=== PATIENT | female | born 1950 | race Caucasian/White ===

== ENCOUNTER → 2017-09-01 10:21 | Outpatient (CLI) | payer OTHER, SELFPAY ==
[2017-09-01 11:32] LABS: Add Manual Diff / Slide Review NO; Basophils Percent Auto 0.9 % (0-2); Eosinophils Percent Auto 4.7 % (2-4); Hematocrit 38.2 % (36-46); Hemoglobin 12.7 g/dL (12.0-16.0); Lymphocytes Percent Auto 22.1 % (25-40); Mean Corpuscular HGB Conc 33.3 % (30-36); Mean Corpuscular Hemoglobin 29.5 PG (26-34); Mean Corpuscular Volume 88.8 fL (80-100); Monocytes Percent Auto 9.7 % (3-14); Neutrophils Absolute Auto 5900 /uL (3000-5900); Neutrophils Percent Auto 62.6 % (50-75); Platelet Count 338 X10^3/uL (150-400); Red Cell Distribution Width 15.6 % (11.6-14.8); White Blood Cell Count 9.4 X10^3/uL (4.5-11.0)
== END ==
PROVIDERS: PCP Internal Medicine; Visit Provider Allergy & Immunology
DX: D80.1 Nonfamilial hypogammaglobulinemia (principal)
CPT/HCPCS: 36415; 85025

== ENCOUNTER → 2017-09-05 08:42 | Outpatient (CLI) | payer OTHER, SELFPAY ==
[2017-09-05 10:29] LABS: Alanine Aminotransferase 29 IU/L (9-52); Albumin 3.6 g/dL (3.5-5.0); Albumin Globulin Ratio 1.3 (1.0-2.8); Alkaline Phosphatase 58 U/L (38-126); Aspartate Aminotransferase 22 IU/L (14-36); BUN Creatinine Ratio 21.3 (6-22); Bilirubin Total 0.5 mg/dL (0.2-1.3); Cholesterol 149 mg/dL (140-199); Estimated Glomerular Filt Rate > 60.0 mL/min (>60); Globulin 2.8 g/dL (1.7-4.1); Glucose 113 mg/dL (80-110); HDL Cholesterol 59 mg/dL (40-60); HEMOLYSIS < 15 (0-50); LDL Cholesterol Calculated 63 mg/dL (<100); Potassium 4.5 mmol/L (3.4-5.1); Sodium 140 mmol/L (137-145); Total Protein 6.4 g/dL (6.3-8.2); Triglycerides 134 mg/dL (35-150)
[2017-09-05 15:39] LABS: Creatinine Urine Random 24.6 mg/dL
[2017-09-05 15:40] LABS: Microalbumi Creatinin Ratio Ur 24.3 ug/mg CR (<30); Microalbumin Urine Random < 0.6 mg/dL (0-1.6)
== END ==
PROVIDERS: PCP Internal Medicine; Visit Provider Internal Medicine
DX: E11.69 Type 2 diabetes mellitus with other specified complication (principal); E78.5 Hyperlipidemia, unspecified; Z79.4 Long term (current) use of insulin
CPT/HCPCS: 36415; 80053; 80061; 82043; 82570

== ENCOUNTER → 2017-09-11 15:57 | Outpatient (CLI) | payer OTHER, SELFPAY ==
[2017-09-11 16:42] LABS: Add Manual Diff / Slide Review NO; Basophils Percent Auto 0.3 % (0-2); Eosinophils Percent Auto 0.2 % (2-4); Hematocrit 39.7 % (36-46); Hemoglobin 13.1 g/dL (12.0-16.0); Lymphocytes Percent Auto 14.8 % (25-40); Mean Corpuscular Hemoglobin 29.3 PG (26-34); Mean Corpuscular Volume 88.6 fL (80-100); Monocytes Percent Auto 6.2 % (3-14); Neutrophils Absolute Auto 8500 /uL (3000-5900); Neutrophils Percent Auto 78.5 % (50-75); Platelet Count 379 X10^3/uL (150-400); Red Blood Cell Count 4.48 X10^6/uL (4.0-5.2); Red Cell Distribution Width 15.1 % (11.6-14.8); White Blood Cell Count 10.9 X10^3/uL (4.5-11.0)
== END ==
PROVIDERS: PCP Internal Medicine; Visit Provider Allergy & Immunology
DX: D80.1 Nonfamilial hypogammaglobulinemia (principal)
CPT/HCPCS: 36415; 85025

== ENCOUNTER → 2017-12-08 09:59 | Outpatient (CLI) | payer OTHER, SELFPAY | PROVIDERS: PCP Internal Medicine; Visit Provider Allergy & Immunology | DX: D83.1 Common variable immunodeficiency with predominant immunoregulatory T-cell disorders (principal) | CPT/HCPCS: 87070; 87077; 87186; 87205 ==

== ENCOUNTER → 2018-01-22 11:06 | Outpatient (CLI) | payer OTHER, SELFPAY ==
--- NOTE | 2018-01-22 | DI.CT.S_ITS ---
PROCEDURE: CT SINUS SCREEN WO CON INDICATIONS: CHRONIC SINUSITIS. Patient states the patient's physician was unable to visualize the right side with recent exam. Previous history of surgery x2. TECHNIQUE: Noncontrast 3.0 mm axial images acquired from the frontal sinuses to the mid-sella, with coronal and sagittal reformats. For radiation dose reduction, the following was used: automated exposure control, adjustment of mA and/or kV according to patient size. COMPARISON: [facility], CT, CT CHEST ABD PELVIS W CON, 05/18/2016, 13:40. [facility], CT, SINUS SCREEN, 07/27/2008, 14:43. FINDINGS: Image quality: Excellent. Maxillary Sinuses: There is minimal inferior left maxillary sinus mucosal thickening. There is extensive circumferential remodeling and thickening of the jean of the bilateral maxillary sinuses, consistent with sequela of chronic sinusitis. Postsurgical changes of bilateral antrostomies and remodeling of the ostiomeatal units noted. Ethmoid Air Cells: No bony remodeling or destruction. Sinuses are clear. Sphenoid Sinuses: No bony remodeling or destruction. Sinuses are clear. Frontal Sinuses: No bony remodeling or destruction. Sinuses are clear. Miscellaneous: Visualized intra-orbital contents are normal. There is a 2.0 cm rounded calcification along the posterior left falx cerebri. Intracranial vascular calcifications are noted. IMPRESSION: Minimal left maxillary sinus mucosal thickening with no other CT evidence of an acute sinusitis. Sequela of probable prior chronic bilateral maxillary sinusitis and postsurgical changes noted. Dictated by: Gene Lombardi M.D. on 01/22/2018 at 15:41 Approved by: Gene Lombardi M.D. on 01/22/2018 at 15:57
== END ==
PROVIDERS: Allergy & Immunology; PCP Internal Medicine; Visit Provider Otolaryngology
DX: J32.9 Chronic sinusitis, unspecified (principal); D83.1 Common variable immunodeficiency with predominant immunoregulatory T-cell disorders
CPT/HCPCS: 70486; 87070; 87077; 87186; 87205

== ENCOUNTER → 2018-02-04 14:08 | Outpatient (CLI) | payer OTHER, SELFPAY ==
--- NOTE | 2018-02-04 | DI.MG.S_ITS ---
BILATERAL DIGITAL SCREENING MAMMOGRAM 3D/2D WITH CAD: 02/04/2018 Comparison is made to exams dated: 12/26/2016 mammogram, 11/02/2015 mammogram, 10/27/2014 mammogram, and 03/21/2013 mammogram - [facility]. The tissue of both breasts is predominantly fatty. Current study was also evaluated with a Computer Aided Detection (CAD) system. No significant masses, calcifications, or other findings are seen in either breast. There has been no significant interval change. IMPRESSION: NEGATIVE There is no mammographic evidence of malignancy. A 1 year screening mammogram is recommended. This exam was interpreted at Station ID: [id number]. NOTE: For mammograms, a report in lay terms will be sent to the patient. Approximately 15% of breast malignancies will not be visualized mammographically. In the management of a palpable breast mass, a negative mammogram must not discourage biopsy of a clinically suspicious lesion. Electronically Signed By: Lolita mckenna/micheline:02/05/2018 08:51:08 letter sent: Normal Exam ACR BI-RADS Category 1: Negative [id number]
== END ==
PROVIDERS: PCP Internal Medicine; Visit Provider Internal Medicine
DX: Z12.31 Encounter for screening mammogram for malignant neoplasm of breast (principal)
CPT/HCPCS: 77063; 77067

== ENCOUNTER → 2018-03-16 08:32 | Outpatient (CLI) | payer OTHER, SELFPAY | PROVIDERS: PCP Internal Medicine; Visit Provider Allergy & Immunology | DX: D80.1 Nonfamilial hypogammaglobulinemia (principal) | CPT/HCPCS: 87070; 87077; 87186; 87205 ==

== ENCOUNTER 2018-04-13 14:48 | Emergency (ER) | payer OTHER, SELFPAY ==
[2018-04-13 14:55] VITALS: BP 176/85; PULSE 99; RESP 16; TEMP 36.6; O2SAT 95; BMI 46.8
--- NOTE | 2018-04-13 15:02 | DI.RAD.S_ITS ---
PROCEDURE: XR SHOULDER RT MIN 2V INDICATIONS: Fall with pain to shoulder TECHNIQUE: 3 views of the shoulder were acquired. COMPARISON: None. FINDINGS: Bones: No fractures or dislocations. No suspicious bony lesions. Visualized ribs appear intact. Soft tissues: No suspicious soft tissue calcifications. IMPRESSION: No fracture or subluxation seen. Mild a.c. joint osteoarthritis. Dictated by: Tj Jones M.D. on 04/13/2018 at 15:53 Approved by: Tj Jones M.D. on 04/13/2018 at 15:53
--- NOTE | 2018-04-13 16:04 | ED_ITS ---
HPI - Fall <Letitia Lester PA-C - Last Filed: 04/13/18 21:54> General Chief Complaint: Fall Stated Complaint: glf, right shoulder pain Time Seen by Provider: 04/13/18 15:58 Source: patient Mode of arrival: ambulatory Limitations: no limitations History of Present Illness HPI Narrative: This 68-year-old female comes to ED due to right shoulder pain after a fall. She states that she tripped over a purse that was on the floor and it pitched her forward. She mainly on her right shoulder, which sounds like it was at her side. She also hit her right knee. She states that after hitting her knee and shoulder, she bumped her face on a chair cutting her lip a little bit. She denies any head contusion or LOC. She denies any neck pain or difficulty with moving her neck. She states that her knee is bruised but she has been walking fine on it and does not think it is injured. She denies any pain in her elbow, wrist, hand or elsewhere in the extremities. She did take some ibuprofen and Tylenol at home but tries to avoid NSAIDs due to gastritis and also on prednisone. 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 Asthma Type II diabetes Hypertension Hyperlipidemia Lumbar laminectomy in 2002 Lumbar fusion surgery in 2012 C-sections ?3 Carpal tunnel surgery Trigger finger surgery Tubal ligation Pneumonia and asthma exacerbations Obesity, BMI 46.9 Related Data Home Medications Medication Instructions Recorded Confirmed ALBUTEROL SULFATE (Ventolin / 2 puff INH Q4H PRN #0 07/11/06 Proventil) ALBUTEROL SULFATE/IPRATROPIUM 1 ml INH #0 07/11/06 (Iprat-Albut 0.5-3(2.5) MG/3 Ml) Metformin Hydrochloride 1,000 mg PO BID #0 07/11/06 (Glucophage) Cetirizine Hydrochloride (Zyrtec) 10 mg PO Q DAY #0 09/24/09 FLUTICASONE 50MCG GRACIELA INH- 2 spray INTRANASAL BID #0 09/24/09 (FLUTICASONE PROPIONATE) Fluticasone Propionate/Salme 2 dose IH BID #0 09/24/09 (Advair Diskus 100/50) Montelukast Sodium (Singulair) 10 mg PO Q DAY #0 09/24/09 SPIRONOLACTONE (Aldactone) 50 mg PO Q DAY #0 09/24/09 [IGg] 45 g #0 09/24/09 budesonide [Pulmicort] 0.5 mg INH BIDP #0 05/21/12 docusate sodium 250 mg PO BID #0 05/21/12 zolpidem [Ambien] 10 mg PO HS #0 05/21/12 insulin glargine [Lantus Solostar 20 unit SQ BID #0 05/23/12 U-100 Insulin] insulin lispro [Humalog U-100 SQ TIDCC #0 05/23/12 Insulin] hydrocodone-acetaminophen [[place]] #0 06/04/17 [NPH] 20 QDAYPM #0 06/06/17 [NPH] 40 u QAM #0 06/06/17 clonidine HCl [Catapres] 0.1 mg PO BID #60 tab 06/06/17 furosemide [Lasix] 20 mg PO QDAY #0 06/06/17 gabapentin [Neurontin] 300 mg PO HS #0 06/06/17 guaifenesin [Mucinex] 1,200 mg PO Q12H #0 06/06/17 levothyroxine [Synthroid] 75 mcg PO QDAY #30 tab 06/06/17 lisinopril [Zestril] 30 mg PO QDAY #30 tab 06/06/17 lovastatin [Altoprev] 80 mg PO QHS #30 tab 06/06/17 polyethylene glycol 3350 [Miralax] 17 gm PO QDAY #0 06/06/17 pramipexole [Mirapex] 0.5 mg PO QHS #0 06/06/17 Previous Rx's Medication Instructions Recorded levofloxacin [Levaquin] 500 mg PO QDAY #7 tab 06/08/17 prednisone 10 mg PO AMCC #32 tab 06/08/17 hydrocodone-acetaminophen [[place]] 1 tab PO Q4H PRN #12 tab 04/13/18 lidocaine [Lidoderm] 3 patch TOP DAILY #30 each 04/13/18 Allergies Allergy/AdvReac Type Severity Reaction Status Date / Time hydroxychloroquine Allergy Unknown Unverified 07/25/17 11:59 [HYDROXYCHLOROQUINE] Exam <Letitia Lester PA-C - Last Filed: 04/13/18 21:54> Narrative Exam Narrative: GENERAL APPEARANCE: Patient sitting comfortably, in no distress. HEENT: PERRL, EOMI LUNGS: Clear to auscultation bilaterally. HEART: Rate and rhythm regular without murmur, normal S1 and S2, no S3 or S4. DERMATOLOGIC: There is a shallow (1 mm depth by 3-4 mm long) superficial right lower lip laceration. There is a faint patch of ecchymoses lateral to the lip on the inferior cheek, no ecchymoses elsewhere on the face or periorbital areas. There is ecchymoses over the right knee MUSCULOSKELETAL: Right shoulder no effusion or asymmetry. There is minimal tenderness over the AC and acromion and surrounding musculature, no tenderness elsewhere over bony prominences. Markedly limited active range of motion in of the right shoulder with abduction and flexion to 90? with tenderness, unable to internally or externally rotate secondary to tenderness. 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 and no tenderness NEUROVASCULAR: Right hand and fingers warm and pink, sensation grossly intact Initial Vital Signs Initial Vital Signs: Vital Signs Temperature 97.8 F 04/13/18 14:55 Pulse Rate 99 H 04/13/18 14:55 Respiratory Rate 16 04/13/18 14:55 Blood Pressure 176/85 H 04/13/18 14:55 Pulse Oximetry 95 04/13/18 14:55 <Bernabe Najear DO - Last Filed: 04/14/18 07:13> Initial Vital Signs Initial Vital Signs: Vital Signs Temperature 97.8 F 04/13/18 14:55 Pulse Rate 99 H 04/13/18 14:55 Respiratory Rate 16 04/13/18 14:55 Blood Pressure 176/85 H 04/13/18 14:55 Pulse Oximetry 95 04/13/18 14:55 Course <Letitia Lester PA-C - Last Filed: 04/13/18 21:54> Orders Ordered: ED Orders 04/13/18 15:02 XR shoulder RT min 2V Stat Vital Signs - 8 hr 04/13/18 14:55 04/13/18 16:25 Temperature 97.8 F 97.9 F Pulse Rate 99 H 88 Respiratory Rate 16 16 Blood Pressure 176/85 H Blood Pressure [Left Arm] 160/76 H Pulse Oximetry 95 97 <Bernabe Najera DO - Last Filed: 04/14/18 07:13> Orders Ordered: ED Orders 04/13/18 15:02 XR shoulder RT min 2V Stat Vital Signs - 8 hr 04/13/18 14:55 04/13/18 16:25 Temperature 97.8 F 97.9 F Pulse Rate 99 H 88 Respiratory Rate 16 16 Blood Pressure 176/85 H Blood Pressure [Left Arm] 160/76 H Pulse Oximetry 95 97 MDM - Fall <Letitia Lester PA-C - Last Filed: 04/13/18 21:54> Imaging Data shoulder: Radiologist's impression: View Report History [address] [address] XRay Report Signed Patient: Radha Zavaleta MR#: [id number] : 1950 Acct:[id number] Age/Sex: 68 / F Date of Service: 04/13/18 Loc: ED Accession Number: [id number] Procedure: XR shoulder RT min 2V Ordering Provider: Bernabe Najera D.O. PROCEDURE: XR SHOULDER RT MIN 2V INDICATIONS: Fall with pain to shoulder TECHNIQUE: 3 views of the shoulder were acquired. COMPARISON: None. FINDINGS: Bones: No fractures or dislocations. No suspicious bony lesions. Visualized ribs appear intact. Soft tissues: No suspicious soft tissue calcifications. IMPRESSION: No fracture or subluxation seen. Mild a.c. joint osteoarthritis. Dictated by: Tj Jones M.D. on 04/13/2018 at 15:53 Approved by: Tj Jonse M.D. on 04/13/2018 at 15:53 Discharge Plan Departure Patient Disposition: Home Clinical Impression: Rotator cuff dis NEC, Fall, Contusion of knee, right Discharge Date/Time: 04/13/18 16:45 Interventions: ED Discharge Assessment Last Done: 04/13/18 16:42 Instructions: DI for Rotator Cuff Injury Activity Restrictions/Additional Instructions: You can wear your sling for comfort as needed at home, but make sure you do gentle [id number] exercises several times daily to help with your mobility. Continue to avoid NSAIDs and take your usual prednisone. You can add the hydrocodone/acetaminophen as needed, but remember it can make you drowsy. You can also try the Lidoderm patches applied to the painful areas for up to 12 hr daily (you can try the over the counter once or other topical rubs or creams if this is not covered). Since you seemed to be walking okay on your knee, it is okay for you to do gentle walking and activity as tolerated. You should return as we talked about if you have any acutely worsening or new symptoms that concern new, otherwise follow up with your orthopedist next week as planned Prescriptions: New hydrocodone-acetaminophen [[place]] 5-325 mg tablet 1 tab PO Q4H PRN (Reason: acute shoulder pain) Qty: 12 RF: 0 lidocaine [Lidoderm] 5 % adhesive patch,medicated 3 patch TOP DAILY Qty: 30 RF: 0 No Action Metformin Hydrochloride (Glucophage) 1,000 mg PO BID Qty: 0 RF: 0 ALBUTEROL SULFATE (Ventolin / Proventil) 2 puff INH Q4H PRN Qty: 0 RF: 0 ALBUTEROL SULFATE/IPRATROPIUM (Iprat-Albut 0.5-3(2.5) MG/3 Ml) 1 ml INH Qty: 0 RF: 0 SPIRONOLACTONE (Aldactone) 50 mg PO Q DAY Qty: 0 RF: 0 Fluticasone Propionate/Salme (Advair Diskus 100/50) 2 dose IH BID Qty: 0 RF: 0 Montelukast Sodium (Singulair) 10 mg PO Q DAY Qty: 0 RF: 0 FLUTICASONE 50MCG GRACIELA INH- (FLUTICASONE PROPIONATE) 2 spray Intranasal BID Qty: 0 RF: 0 Cetirizine Hydrochloride (Zyrtec) 10 mg PO Q DAY Qty: 0 RF: 0 [IGg] 45 g Qty: 0 RF: 0 budesonide [Pulmicort] 0.5 MG/2 ML suspension for nebulization 0.5 mg INH BIDP Qty: 0 RF: 0 zolpidem [Ambien] 10 MG tablet 10 mg PO HS Qty: 0 RF: 0 docusate sodium 250 MG capsule 250 mg PO BID Qty: 0 RF: 0 insulin lispro [Humalog U-100 Insulin] 100 UNIT/1 ML cartridge SQ TIDCC Qty: 0 RF: 0 insulin glargine [Lantus Solostar U-100 Insulin] 100 UNIT/1 ML insulin pen 20 unit SQ BID Qty: 0 RF: 0 hydrocodone-acetaminophen [[place]] 5 MG/325 MG tablet Qty: 0 RF: 0 levothyroxine [Synthroid] 75 MCG tablet 75 mcg PO QDAY Qty: 30 RF: 0 clonidine HCl [Catapres] 0.1 MG tablet 0.1 mg PO BID Qty: 60 RF: 0 furosemide [Lasix] 20 MG tablet 20 mg PO QDAY Qty: 0 RF: 0 lisinopril [Zestril] 30 MG tablet 30 mg PO QDAY Qty: 30 RF: 0 lovastatin [Altoprev] 40 MG tablet extended release 24 hr 80 mg PO QHS Qty: 30 RF: 0 [NPH] 40 u QAM Qty: 0 RF: 0 [NPH] 20 QDAYPM Qty: 0 RF: 0 guaifenesin [Mucinex] 1,200 MG tablet extended release 12hr 1,200 mg PO Q12H Qty: 0 RF: 0 polyethylene glycol 3350 [Miralax] 119 GM powder 17 gm PO QDAY Qty: 0 RF: 0 gabapentin [Neurontin] 300 MG capsule 300 mg PO HS Qty: 0 RF: 0 pramipexole [Mirapex] 0.5 MG tablet 0.5 mg PO QHS Qty: 0 RF: 0 prednisone 10 MG tablet 10 mg PO AMCC Qty: 32 RF: 0 levofloxacin [Levaquin] 500 MG tablet 500 mg PO QDAY Qty: 7 RF: 0 Referrals: Scott Jeter MD [Physician] - Pedro Maravilla MD [Physician] - <Bernabe Najera DO - Last Filed: 04/14/18 07:13> Cosign ED Attending Atulature Attestation: I was available for consultation during this patient's emergency department encounter
[2018-04-13 16:25] VITALS: BP 160/76; PULSE 88; RESP 16; TEMP 36.6; O2SAT 97
== END 2018-04-13 16:45 | disposition home or self-care (01) ==
PROVIDERS: Emergency Provider Internal Medicine; PCP Internal Medicine
DX: M75.100 Unspecified rotator cuff tear or rupture of unspecified shoulder, not specified as traumatic (principal); S80.01XA Contusion of right knee, initial encounter; W01.0XXA Fall on same level from slipping, tripping and stumbling without subsequent striking against object, initial encounter
CPT/HCPCS: 73030; 99282; 99283

== ENCOUNTER → 2018-05-08 17:36 | Outpatient (CLI) | payer OTHER, SELFPAY ==
[2018-05-08 18:26] LABS: Add Manual Diff / Slide Review NO; Basophils Absolute Auto 100 /uL (0-100); Basophils Percent Auto 0.7 % (0-2); Eosinophils Absolute Auto 200 /uL (0-450); Eosinophils Percent Auto 1.1 % (2-4); Hematocrit 38.1 % (36-46); Hemoglobin 12.2 g/dL (12.0-16.0); Lymphocytes Absolute Auto 1400 /uL (1100-4500); Lymphocytes Percent Auto 8.7 % (25-40); Mean Corpuscular HGB Conc 31.9 % (30-36); Mean Corpuscular Hemoglobin 27.8 PG (26-34); Mean Corpuscular Volume 87.1 fL (80-100); Monocytes Absolute Auto 1100 /uL (0-900); Monocytes Percent Auto 6.6 % (3-14); Neutrophils Absolute Auto 13600 /uL (1500-7000); Neutrophils Percent Auto 82.9 % (50-75); Platelet Count 405 X10^3/uL (150-400); Red Blood Cell Count 4.37 X10^6/uL (4.0-5.2); Red Cell Distribution Width 15.8 % (11.6-14.8); White Blood Cell Count 16.4 X10^3/uL (4.5-11.0)
== END ==
PROVIDERS: Internal Medicine; PCP Internal Medicine; Visit Provider Allergy & Immunology
DX: D80.1 Nonfamilial hypogammaglobulinemia (principal); J44.1 Chronic obstructive pulmonary disease with (acute) exacerbation
CPT/HCPCS: 36415; 85025; 87070; 87205

== ENCOUNTER → 2018-05-08 17:42 | Outpatient (CLI) | payer OTHER, SELFPAY ==
--- NOTE | 2018-05-08 | DI.RAD.S_ITS ---
PROCEDURE: XR CHEST 2V INDICATIONS: COUGH,FEVER,SHORTNESS OF BREATH,INCREASED MUCOUS TECHNIQUE: 2 views of the chest were acquired. COMPARISON: [facility], , CHEST 2 VIEW, 06/05/2017, 19:28. [facility], , CHEST 2 VIEW, 06/04/2017, 21:13. [facility], , CHEST 2 VIEW, 08/11/2015, 15:57. FINDINGS: Surgical changes and devices: None. Lungs and pleura: There are patchy, ill-defined consolidative opacities involving the bilateral mid and lower lung zones, consistent with focal airspace disease/pneumonia. No pneumothorax. No pleural effusion. Mediastinum: Mediastinal contours are normal. Heart size is normal. Bones and chest wall: No suspicious bony abnormalities. Soft tissues appear unremarkable. IMPRESSION: Bilateral mid and lower lung zone patchy consolidations compatible with multifocal airspace disease/pneumonia. Recommend followup imaging 4-6 weeks after treatment to document return to baseline examination. Dictated by: Aneesh Antonio M.D. on 05/08/2018 at 18:42 Approved by: Aneesh Antonio M.D. on 05/08/2018 at 18:43
== END ==
PROVIDERS: PCP Internal Medicine; Visit Provider Internal Medicine
DX: R05 Cough (principal); R06.02 Shortness of breath; R50.9 Fever, unspecified
CPT/HCPCS: 36415; 71046; 85025; 87070; 87205

== ENCOUNTER 2018-05-11 16:16 | Emergency (ER) | payer OTHER, SELFPAY ==
[2018-05-11] VITALS (7 sets, daily range): BP systolic 135–162; BP diastolic 55–86; PULSE 78–105; RESP 14–25; TEMP 36.6; O2SAT 94–100
--- NOTE | 2018-05-11 17:11 | PC.NURSE ---
Pt has been self medicating with levaquin for pneumonia,pt not getting better
--- NOTE | 2018-05-11 17:12 | DI.RAD.S_ITS ---
PROCEDURE: XR CHEST 2V INDICATIONS: shortness of breath TECHNIQUE: 2 views of the chest were acquired. COMPARISON: 05/08/2018, and 06/23/2015. FINDINGS: Surgical changes and devices: Partially imaged surgical fusion devices from lower lumbar fixation. Lungs and pleura: No pneumothorax or substantial pleural effusion. Persistent patchy, ill-defined opacities of the bilateral mid and lower lung zones which appear stable to minimally improved. No new areas of focal consolidation identified. Mediastinum: Mediastinal contours are normal. Heart size is normal. Bones and chest wall: No suspicious bony abnormalities. Soft tissues appear unremarkable. IMPRESSION: Persistent bilateral mid and lower lung zone patchy opacity/consolidation is compatible with multifocal airspace disease/pneumonia. Findings appear stable to minimally improved. No new foci of focal airspace disease. Recommend followup imaging in 4-6 weeks after treatment to document return to baseline exam. Dictated by: Aneesh Antonio M.D. on 05/11/2018 at 19:01 Approved by: Aneesh Antonio M.D. on 05/11/2018 at 19:04
[2018-05-11] MEDS: ALBUTEROL 2.5 MG/3 ML NEB (ADULT) INH ×2 (17:21→19:43)
[2018-05-11 17:46] LABS: Add Manual Diff / Slide Review NO; Basophils Absolute Auto 100 /uL (0-100); Basophils Percent Auto 0.8 % (0-2); Eosinophils Absolute Auto 0 /uL (0-450); Eosinophils Percent Auto 0.2 % (2-4); Hematocrit 37.2 % (36-46); Hemoglobin 12.2 g/dL (12.0-16.0); Lymphocytes Absolute Auto 1100 /uL (1100-4500); Lymphocytes Percent Auto 10.6 % (25-40); Mean Corpuscular HGB Conc 32.7 % (30-36); Mean Corpuscular Volume 85.6 fL (80-100); Monocytes Absolute Auto 400 /uL (0-900); Neutrophils Absolute Auto 8900 /uL (1500-7000); Neutrophils Percent Auto 84.4 % (50-75); Platelet Count 532 X10^3/uL (150-400); Red Blood Cell Count 4.35 X10^6/uL (4.0-5.2); Red Cell Distribution Width 15.8 % (11.6-14.8); White Blood Cell Count 10.6 X10^3/uL (4.5-11.0)
--- NOTE | 2018-05-11 17:47 | ED.SOB ---
HPI - SOB/Dyspnea <Letitia Lester PA-C - Last Filed: 05/11/18 22:22> General Chief Complaint: Shortness of Breath/Dyspnea Stated Complaint: states has pneumonia,not getting any better Time Seen by Provider: 05/11/18 17:47 Source: patient Mode of arrival: ambulatory Limitations: no limitations History of Present Illness This 68-year-old female with a history of chronic bronchiectasis, Pseudomonas, and autoimmune disease comes in today due to exacerbation of respiratory symptoms since Sunday. She states on Sunday, she woke up with 102 fever and was delirious , she was out of town at the time. She started herself on 500 mg of Levaquin as well as Tamiflu. A couple of days later she spoke with her specialist and increased Levaquin to 750 mg. Blood work, chest x-ray and sputum culture were ordered here locally. She had been doing her nebulizers at home at least a couple of times daily. She states that she started herself on 40 mg of prednisone just yesterday. She states that she is definitely not acutely worse today and in fact her fever has resolved and her sputum is more clear that it was initially. She still has persistent cough. She is still short of breath especially when active. She states that her chest has been burning with deep breath, otherwise not having chest pain. She denies any new pain or swelling in her extremities. No nausea or vomiting or other new complaints on systems review. She states that she felt like she should have this checked out here since she has actually not seen her provider since onset. She and her note that they traveled to visit family in [place] the week prior and did visit with their grandchildren, but no one was ill. She forgot to take her nebulizer on that trip. 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 Asthma Type II diabetes Hypertension Hyperlipidemia Lumbar laminectomy in 2002 Lumbar fusion surgery in 2012 C-sections ?3 Carpal tunnel surgery Trigger finger surgery Tubal ligation Pneumonia and asthma exacerbations Obesity, BMI 46.9 Related Data Home Medications Medication Instructions Recorded Confirmed ALBUTEROL SULFATE (Ventolin / 2 puff INH Q4H PRN #0 07/11/06 Proventil) ALBUTEROL SULFATE/IPRATROPIUM 1 ml INH #0 07/11/06 (Iprat-Albut 0.5-3(2.5) MG/3 Ml) Metformin Hydrochloride 1,000 mg PO BID #0 07/11/06 (Glucophage) Cetirizine Hydrochloride (Zyrtec) 10 mg PO Q DAY #0 09/24/09 FLUTICASONE 50MCG GRACIELA INH- 2 spray INTRANASAL BID #0 09/24/09 (FLUTICASONE PROPIONATE) Fluticasone Propionate/Salme 2 dose IH BID #0 09/24/09 (Advair Diskus 100/50) Montelukast Sodium (Singulair) 10 mg PO Q DAY #0 09/24/09 SPIRONOLACTONE (Aldactone) 50 mg PO Q DAY #0 09/24/09 [IGg] 45 g #0 09/24/09 budesonide [Pulmicort] 0.5 mg INH BIDP #0 05/21/12 docusate sodium 250 mg PO BID #0 05/21/12 zolpidem [Ambien] 10 mg PO HS #0 05/21/12 insulin glargine [Lantus Solostar 20 unit SQ BID #0 05/23/12 U-100 Insulin] insulin lispro [Humalog U-100 SQ TIDCC #0 05/23/12 Insulin] hydrocodone-acetaminophen [Kyle] #0 06/04/17 [NPH] 20 QDAYPM #0 06/06/17 [NPH] 40 u QAM #0 06/06/17 clonidine HCl [Catapres] 0.1 mg PO BID #60 tab 06/06/17 furosemide [Lasix] 20 mg PO QDAY #0 06/06/17 gabapentin [Neurontin] 300 mg PO HS #0 06/06/17 guaifenesin [Mucinex] 1,200 mg PO Q12H #0 06/06/17 levothyroxine [Synthroid] 75 mcg PO QDAY #30 tab 06/06/17 lisinopril [Zestril] 30 mg PO QDAY #30 tab 06/06/17 lovastatin [Altoprev] 80 mg PO QHS #30 tab 06/06/17 polyethylene glycol 3350 [Miralax] 17 gm PO QDAY #0 06/06/17 pramipexole [Mirapex] 0.5 mg PO QHS #0 06/06/17 Previous Rx's Medication Instructions Recorded levofloxacin [Levaquin] 500 mg PO QDAY #7 tab 06/08/17 pred[place]one 10 [place] [facility] [place] tab 06/08/17 hydrocodone-acetaminophen [Kyle] 1 tab PO Q4H PRN #12 tab 04/13/18 lidocaine [Lidoderm] 3 patch TOP DAILY #30 each 04/13/18 Allergies Allergy/AdvReac Type Severity Reaction Status Date / Time hydroxychloroquine Allergy Unknown Unverified 07/25/17 11:59 [HYDROXYCHLOROQUINE] Review of Systems <Letitia Lester PA-C - Last Filed: 05/11/18 22:22> Review of Systems ROS Unobtainable: All systems reviewed & are unremarkable except as noted in HPI and below Exam <Letitia Lester PA-C - Last Filed: 05/11/18 22:22> Narrative Exam Narrative: GENERAL APPEARANCE: Patient resting comfortably, in no distress HEAD: No sinus TTP. EYES: PERRL, EOMI. EARS: Normal auditory canals, TMS intact with normal light reflexes. ORAL CAVITY: Normal oropharynx. THROAT: Clear. NECK/THYROID: Neck supple, full range of motion, no cervical lymphadenopathy. LUNGS: Breath sounds are coarse with a little bit of expiratory rhonchi in the left mid to lower lobes, occasional coarse cough on exam HEART: RRR without murmur, nl S1, S2, no S3 or S4. ABDOMEN: Soft, nontender, nondistended, +bowel sounds x4 quadrants EXTREMITIES: No edema, no cyanosis, no calf tenderness Initial Vital Signs Initial Vital Signs: Vital Signs Temperature 97.8 F 05/11/18 16:42 Pulse Rate 105 H 05/11/18 16:42 Respiratory Rate 16 05/11/18 16:42 Blood Pressure 162/86 H 05/11/18 16:42 Pulse Oximetry 97 05/11/18 16:42 <Lenin Gonzalez MD - Last Filed: 05/12/18 05:32> Initial Vital Signs Initial Vital Signs: Vital Signs Temperature 97.8 F 05/11/18 16:42 Pulse Rate 105 H 05/11/18 16:42 Respiratory Rate 16 05/11/18 16:42 Blood Pressure 162/86 H 05/11/18 16:42 Pulse Oximetry 97 05/11/18 16:42 Course <Letitia Lester PA-C - Last Filed: 05/11/18 22:22> Additional Information: Patient is stable, O2 saturation improved and fever resolved per her history. Her white count is down from a few days ago and her chest x-ray is stable to improved. She just increased her Levaquin dose 2 days ago and started her prednisone yesterday. She was given an extra 20 mg here this evening. She feels stable to be at home. Her lactate is slightly elevated however likely was higher earlier in the week when she was more symptomatic. We did repeat sputum cultures and also got blood cultures today, and she agreed to return if any acutely worsening symptoms over the weekend. Reviewed findings and w/u with Dr. Gonzalez who is agreeable with above. I spoke with her PCP Dr. Jeter and he will have his clinic contact patient on Sunday Orders Ordered: Discontinued Medications Albuterol (Ventolin) 2.5 mg INH NOW ONE Stop: 05/11/18 17:21 Last Admin: 05/11/18 17:21 Dose: 2.5 mg Albuterol (Ventolin) 2.5 mg INH NOW ONE Stop: 05/11/18 19:29 Last Admin: 05/11/18 19:43 Dose: 2.5 mg Sodium Chloride (Normal Saline 0.9%) 1,000 mls @ 1,000 mls/hr IV BOLUS ONE Stop: 05/11/18 19:21 Last Infusion: 05/11/18 20:25 Dose: 0 mls/hr Admin: 05/11/18 18:55 Dose: 1,000 mls/hr Prednisone (Deltasone) 20 mg PO NOW ONE Stop: 05/11/18 18:07 Last Admin: 05/11/18 18:16 Dose: 20 mg Vital Signs - 8 hr 05/11/18 16:42 05/11/18 17:22 05/11/18 18:00 Temperature 97.8 F Pulse Rate 105 H 78 99 H Respiratory Rate 16 14 17 Blood Pressure 162/86 H Blood Pressure [Left Arm] 142/72 H Pulse Oximetry 97 97 94 05/11/18 19:28 05/11/18 19:43 05/11/18 20:30 Temperature Pulse Rate 100 H 93 H 94 H Respiratory Rate 20 18 25 H Blood Pressure Blood Pressure [Left Arm] 135/55 L 137/79 Pulse Oximetry 96 100 97 05/11/18 20:52 Temperature Pulse Rate 93 H Respiratory Rate Blood Pressure 137/78 Blood Pressure [Left Arm] Pulse Oximetry 94 <Lenin Gonzalez MD - Last Filed: 05/12/18 05:32> Orders Ordered: Discontinued Medications Albuterol (Ventolin) 2.5 mg INH NOW ONE Stop: 05/11/18 17:21 Last Admin: 05/11/18 17:21 Dose: 2.5 mg Albuterol (Ventolin) 2.5 mg INH NOW ONE Stop: 05/11/18 19:29 Last Admin: 05/11/18 19:43 Dose: 2.5 mg Sodium Chloride (Normal Saline 0.9%) 1,000 mls @ 1,000 mls/hr IV BOLUS ONE Stop: 05/11/18 19:21 Last Infusion: 05/11/18 20:25 Dose: 0 mls/hr Admin: 05/11/18 18:55 Dose: 1,000 mls/hr Prednisone (Deltasone) 20 mg PO NOW ONE Stop: 05/11/18 18:07 Last Admin: 05/11/18 18:16 Dose: 20 mg Vital Signs - 8 hr 05/11/18 16:42 05/11/18 17:22 05/11/18 18:00 Temperature 97.8 F Pulse Rate 105 H 78 99 H Respiratory Rate 16 14 17 Blood Pressure 162/86 H Blood Pressure [Left Arm] 142/72 H Pulse Oximetry 97 97 94 05/11/18 19:28 05/11/18 19:43 05/11/18 20:30 Temperature Pulse Rate 100 H 93 H 94 H Respiratory Rate 20 18 25 H Blood Pressure Blood Pressure [Left Arm] 135/55 L 137/79 Pulse Oximetry 96 100 97 05/11/18 20:52 Temperature Pulse Rate 93 H Respiratory Rate Blood Pressure 137/78 Blood Pressure [Left Arm] Pulse Oximetry 94 MDM - SOB/Dyspnea <Letitia Lester PA-C - Last Filed: 05/11/18 22:22> Lab Data Attestation: I reviewed the patient's lab results. Result diagrams: 05/11/18 17:30 05/11/18 17:30 Lab Results 05/11/18 05/11/18 05/11/18 Range/Units 17:30 17:30 17:30 WBC 10.6 (4.5-11.0) X10^3/uL RBC 4.35 (4.0-5.2) X10^6/uL Hgb 12.2 (12.0-16.0) g/dL Hct 37.2 (36-46) % MCV 85.6 (80-100) fL MCH 28.0 (26-34) PG MCHC 32.7 (30-36) % RDW 15.8 H (11.6-14.8) % Plt Count 532 H (150-400) X10^3/uL Neut % (Auto) 84.4 H (50-75) % Lymph % (Auto) 10.6 L (25-40) % [place] % (Auto) 4.0 (3-14) % Eos % (Auto) 0.2 L (2-4) % Baso % (Auto) 0.8 (0-2) % Neut # (Auto) 8900 H (3575-7117) /uL Lymph # (Auto) 1100 (3971-6675) /uL [place] # (Auto) 400 (0-900) /uL Eos # (Auto) 0 (0-450) /uL Baso # (Auto) 100 (0-100) /uL Sodium 138 (137-145) mmol/L Potassium 4.7 (3.4-5.1) mmol/L Chloride 102 (98-107) mmol/L Carbon Dioxide 22 (22-32) mmol/L BUN 21 H (7-17) mg/dL Creatinine 0.90 (0.52-1.04) mg/dL Estimated GFR > 60.0 (>60) mL/min BUN/Creatinine Ratio 23.3 H (6-22) Glucose 196 H (80-110) mg/dL Lactate 2.5 H (0.7-2.1) mmol/L Calcium 9.7 (8.4-10.2) mg/dL Total Bilirubin 0.2 (0.2-1.3) mg/dL AST 18 (14-36) IU/L ALT 19 (9-52) IU/L Alkaline Phosphatase 82 (38-126) U/L B-Natriuretic Peptide (<100) Total Protein 7.7 (6.3-8.2) g/dL Albumin 4.1 (3.5-5.0) g/dL Globulin 3.6 (1.7-4.1) g/dL Albumin/Globulin Ratio 1.1 (1.0-2.8) 05/11/18 Range/Units 17:30 WBC (4.5-11.0) X10^3/uL RBC (4.0-5.2) X10^6/uL Hgb (12.0-16.0) g/dL Hct (36-46) % MCV (80-100) fL MCH (26-34) PG MCHC (30-36) % RDW (11.6-14.8) % Plt Count (150-400) X10^3/uL Neut % (Auto) (50-75) % Lymph % (Auto) (25-40) % [place] % (Auto) (3-14) % Eos % (Auto) (2-4) % Baso % (Auto) (0-2) % Neut # (Auto) (4862-8258) /uL Lymph # (Auto) (4501-0362) /uL [place] # (Auto) (0-900) /uL Eos # (Auto) (0-450) /uL Baso # (Auto) (0-100) /uL Sodium (137-145) mmol/L Potassium (3.4-5.1) mmol/L Chloride (98-107) mmol/L Carbon Dioxide (22-32) mmol/L BUN (7-17) mg/dL Creatinine (0.52-1.04) mg/dL Estimated GFR (>60) mL/min BUN/Creatinine Ratio (6-22) Glucose (80-110) mg/dL Lactate (0.7-2.1) mmol/L Calcium (8.4-10.2) mg/dL Total Bilirubin (0.2-1.3) mg/dL AST (14-36) IU/L ALT (9-52) IU/L Alkaline Phosphatase (38-126) U/L B-Natriuretic Peptide 130 H (<100) Total Protein (6.3-8.2) g/dL Albumin (3.5-5.0) g/dL Globulin (1.7-4.1) g/dL Albumin/Globulin Ratio (1.0-2.8) Imaging Data Chest x-ray: Radiologist's impression: [address] [address] XRay Report Signed Patient: Radha Zavaelta EMR#: [id number] : 8Acct:[id number] Age/Sex: 68 / FDate of Service: 05/11/18 Loc: ED Accession Number: [id number] Procedure: XR chest 2V Ordering Provider: Bernabe Najera D.O. PROCEDURE: XR CHEST 2V INDICATIONS: shortness of breath TECHNIQUE: 2 views of the chest were acquired. COMPARISON: 05/08/2018, and 06/23/2015. FINDINGS: Surgical changes and devices: Partially imaged surgical fusion devices from lower lumbar fixation. Lungs and pleura: No pneumothorax or substantial pleural effusion. Persistent patchy, ill-defined opacities of the bilateral mid and lower lung zones which appear stable to minimally improved. No new areas of focal consolidation identified. Mediastinum: Mediastinal contours are normal. Heart size is normal. Bones and chest wall: No suspicious bony abnormalities. Soft tissues appear unremarkable. IMPRESSION: Persistent bilateral mid and lower lung zone patchy opacity/consolidation is compatible with multifocal airspace disease/pneumonia. Findings appear stable to minimally improved. No new foci of focal airspace disease. Recommend followup imaging in 4-6 weeks after treatment to document return to baseline exam. Dictated by: Aneesh Antonio M.D. on 05/11/2018 at 19:01 Approved by: Aneesh Antonio M.D. on 05/11/2018 at 19:04 ECG Data Attestation: I personally reviewed and interpreted this ECG as follows: (Sinus rhythm, rate 99, normal axis) <Lenin Gonzalez MD - Last Filed: 05/12/18 05:32> Lab Data Lab Results 05/11/18 05/11/18 05/11/18 Range/Units 17:30 17:30 17:30 WBC 10.6 (4.5-11.0) X10^3/uL RBC 4.35 (4.0-5.2) X10^6/uL Hgb 12.2 (12.0-16.0) g/dL Hct 37.2 (36-46) % MCV 85.6 (80-100) fL MCH 28.0 (26-34) PG MCHC 32.7 (30-36) % RDW 15.8 H (11.6-14.8) % Plt Count 532 H (150-400) X10^3/uL Neut % (Auto) 84.4 H (50-75) % Lymph % (Auto) 10.6 L (25-40) % [place] % (Auto) 4.0 (3-14) % Eos % (Auto) 0.2 L (2-4) % Baso % (Auto) 0.8 (0-2) % Neut # (Auto) 8900 H (5636-4500) /uL Lymph # (Auto) 1100 (0127-2865) /uL [place] # (Auto) 400 (0-900) /uL Eos # (Auto) 0 (0-450) /uL Baso # (Auto) 100 (0-100) /uL Sodium 138 (137-145) mmol/L Potassium 4.7 (3.4-5.1) mmol/L Chloride 102 (98-107) mmol/L Carbon Dioxide 22 (22-32) mmol/L BUN 21 H (7-17) mg/dL Creatinine 0.90 (0.52-1.04) mg/dL Estimated GFR > 60.0 (>60) mL/min BUN/Creatinine Ratio 23.3 H (6-22) Glucose 196 H (80-110) mg/dL Lactate 2.5 H (0.7-2.1) mmol/L Calcium 9.7 (8.4-10.2) mg/dL Total Bilirubin 0.2 (0.2-1.3) mg/dL AST 18 (14-36) IU/L ALT 19 (9-52) IU/L Alkaline Phosphatase 82 (38-126) U/L B-Natriuretic Peptide (<100) Total Protein 7.7 (6.3-8.2) g/dL Albumin 4.1 (3.5-5.0) g/dL Globulin 3.6 (1.7-4.1) g/dL Albumin/Globulin Ratio 1.1 (1.0-2.8) 05/11/18 Range/Units 17:30 WBC (4.5-11.0) X10^3/uL RBC (4.0-5.2) X10^6/uL Hgb (12.0-16.0) g/dL Hct (36-46) % MCV (80-100) fL MCH (26-34) PG MCHC (30-36) % RDW (11.6-14.8) % Plt Count (150-400) X10^3/uL Neut % (Auto) (50-75) % Lymph % (Auto) (25-40) % [place] % (Auto) (3-14) % Eos % (Auto) (2-4) % Baso % (Auto) (0-2) % Neut # (Auto) (1839-3456) /uL Lymph # (Auto) (8816-5036) /uL [place] # (Auto) (0-900) /uL Eos # (Auto) (0-450) /uL Baso # (Auto) (0-100) /uL Sodium (137-145) mmol/L Potassium (3.4-5.1) mmol/L Chloride (98-107) mmol/L Carbon Dioxide (22-32) mmol/L BUN (7-17) mg/dL Creatinine (0.52-1.04) mg/dL Estimated GFR (>60) mL/min BUN/Creatinine Ratio (6-22) Glucose (80-110) mg/dL Lactate (0.7-2.1) mmol/L Calcium (8.4-10.2) mg/dL Total Bilirubin (0.2-1.3) mg/dL AST (14-36) IU/L ALT (9-52) IU/L Alkaline Phosphatase (38-126) U/L B-Natriuretic Peptide 130 H (<100) Total Protein (6.3-8.2) g/dL Albumin (3.5-5.0) g/dL Globulin (1.7-4.1) g/dL Albumin/Globulin Ratio (1.0-2.8) Discharge Plan Departure Patient Disposition: Home Clinical Impression: Pneumonia, Bronchiectasis Discharge Date/Time: 05/11/18 20:54 Interventions: ED Discharge Assessment Last Done: 05/11/18 20:52 Instructions: DI for Pneumonia -- Adult Activity Restrictions/Additional Instructions: Please continue your Levaquin at 750 mg daily. We have given you an extra 20 mg of prednisone today. Please continue 60 mg tomorrow and Sunday. Continue using your nebulizers (use your DuoNeb twice daily and use your albuterol as frequently as you need for cough and tight chest). Return as we talked about if you are feeling acutely worse, i.e. in terms of your breathing, if you have recurrent fever, etc. Otherwise, I have spoken with Dr. Jeter and he said his office will call you on Sunday regarding follow up as they may be able to see you sooner. Your preliminary cultures should be back on Sunday for review Prescriptions: No Action Metformin Hydrochloride (Glucophage) 1,000 mg PO BID Qty: 0 RF: 0 ALBUTEROL SULFATE (Ventolin / Proventil) 2 puff INH Q4H PRN Qty: 0 RF: 0 ALBUTEROL SULFATE/IPRATROPIUM (Iprat-Albut 0.5-3(2.5) MG/3 Ml) 1 ml INH Qty: 0 RF: 0 SPIRONOLACTONE (Aldactone) 50 mg PO Q DAY Qty: 0 RF: 0 Fluticasone Propionate/Salme (Advair Diskus 100/50) 2 dose IH BID Qty: 0 RF: 0 Montelukast Sodium (Singulair) 10 mg PO Q DAY Qty: 0 RF: 0 FLUTICASONE 50MCG GRACIELA INH- (FLUTICASONE PROPIONATE) 2 spray Intranasal BID Qty: 0 RF: 0 Cetirizine Hydrochloride (Zyrtec) 10 mg PO Q DAY Qty: 0 RF: 0 [IGg] 45 g Qty: 0 RF: 0 budesonide [Pulmicort] 0.5 MG/2 ML suspension for nebulization 0.5 mg INH BIDP Qty: 0 RF: 0 zolpidem [Ambien] 10 MG tablet 10 mg PO HS Qty: 0 RF: 0 docusate sodium 250 MG capsule 250 mg PO BID Qty: 0 RF: 0 insulin lispro [Humalog U-100 Insulin] 100 UNIT/1 ML cartridge SQ TIDCC Qty: 0 RF: 0 insulin glargine [Lantus Solostar U-100 Insulin] 100 UNIT/1 ML insulin pen 20 unit SQ BID Qty: 0 RF: 0 hydrocodone-acetaminophen [Kyle] 5 MG/325 MG tablet Qty: 0 RF: 0 levothyroxine [Synthroid] 75 MCG tablet 75 mcg PO QDAY Qty: 30 RF: 0 clonidine HCl [Catapres] 0.1 MG tablet 0.1 mg PO BID Qty: 60 RF: 0 furosemide [Lasix] 20 MG tablet 20 mg PO QDAY Qty: 0 RF: 0 lisinopril [Zestril] 30 MG tablet 30 mg PO QDAY Qty: 30 RF: 0 lovastatin [Altoprev] 40 MG tablet extended release 24 hr 80 mg PO QHS Qty: 30 RF: 0 [NPH] 40 u QAM Qty: 0 RF: 0 [NPH] 20 QDAYPM Qty: 0 RF: 0 guaifenesin [Mucinex] 1,200 MG tablet extended release 12hr 1,200 mg PO Q12H Qty: 0 RF: 0 polyethylene glycol 3350 [Miralax] 119 GM powder 17 gm PO QDAY Qty: 0 RF: 0 gabapentin [Neurontin] 300 MG capsule 300 mg PO HS Qty: 0 RF: 0 pramipexole [Mirapex] 0.5 MG tablet 0.5 mg PO QHS Qty: 0 RF: 0 prednisone 10 MG tablet 10 mg PO AMCC Qty: 32 RF: 0 levofloxacin [Levaquin] 500 MG tablet 500 mg PO QDAY Qty: 7 RF: 0 hydrocodone-acetaminophen [Kyle] 5-325 mg tablet 1 tab PO Q4H PRN (Reason: acute shoulder pain) Qty: 12 RF: 0 lidocaine [Lidoderm] 5 % adhesive patch,medicated 3 patch TOP DAILY Qty: 30 RF: 0 Referrals: Hang Arshad MD [Non-Staff] - Scott Jeter MD [Physician] - <Lenin Gonzalez MD - Last Filed: 05/12/18 05:32> [facility] Att[facility]: I was present in the ER at the time this patient's care. The evaluation and management of this patient was discussed on several occasions. I agree with the assessment and treatment plan.
[2018-05-11 17:52] LABS: Alanine Aminotransferase 19 IU/L (9-52); Albumin 4.1 g/dL (3.5-5.0); Albumin Globulin Ratio 1.1 (1.0-2.8); Alkaline Phosphatase 82 U/L (38-126); Aspartate Aminotransferase 18 IU/L (14-36); BUN Creatinine Ratio 23.3 (6-22); Bilirubin Total 0.2 mg/dL (0.2-1.3); Blood Urea Nitrogen 21 mg/dL (7-17); Calcium 9.7 mg/dL (8.4-10.2); Carbon Dioxide 22 mmol/L (22-32); Chloride 102 mmol/L (98-107); Estimated Glomerular Filt Rate > 60.0 mL/min (>60); Globulin 3.6 g/dL (1.7-4.1); Glucose 196 mg/dL (80-110); HEMOLYSIS < 15 (0-50); Lactate (Lactic Acid) 2.5 mmol/L (0.7-2.1); Potassium 4.7 mmol/L (3.4-5.1); Sodium 138 mmol/L (137-145); Total Protein 7.7 g/dL (6.3-8.2)
[2018-05-11 18:14] LABS: B Type Natriuretic Peptide 130 (<100)
[2018-05-11] MEDS: predniSONE 20 MG TABLET PO (18:16)
[2018-05-11] MEDS: SODIUM CHLORIDE 0.9% 1,000 ML 1000 ML IV (18:55)
--- NOTE | 2018-05-11 19:00 | ED_ITS ---
HPI - SOB/Dyspnea <Letitia Lester PA-C - Last Filed: 05/11/18 22:22> General Chief Complaint: Shortness of Breath/Dyspnea Stated Complaint: states has pneumonia,not getting any better Time Seen by Provider: 05/11/18 17:47 Source: patient Mode of arrival: ambulatory Limitations: no limitations History of Present Illness This 68-year-old female with a history of chronic bronchiectasis, Pseudomonas, and autoimmune disease comes in today due to exacerbation of respiratory symptoms since Sunday. She states on Sunday, she woke up with 102 fever and was delirious , she was out of town at the time. She started herself on 500 mg of Levaquin as well as Tamiflu. A couple of days later she spoke with her specialist and increased Levaquin to 750 mg. Blood work, chest x-ray and sputum culture were ordered here locally. She had been doing her nebulizers at home at least a couple of times daily. She states that she started herself on 40 mg of prednisone just yesterday. She states that she is definitely not acutely worse today and in fact her fever has resolved and her sputum is more clear that it was initially. She still has persistent cough. She is still short of breath especially when active. She states that her chest has been burning with deep breath, otherwise not having chest pain. She denies any new pain or swelling in her extremities. No nausea or vomiting or other new complaints on systems review. She states that she felt like she should have this checked out here since she has actually not seen her provider since onset. She and her note that they traveled to visit family in [place] the week prior and did visit with their grandchildren, but no one was ill. She forgot to take her nebulizer on that trip. 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 Asthma Type II diabetes Hypertension Hyperlipidemia Lumbar laminectomy in 2002 Lumbar fusion surgery in 2012 C-sections ?3 Carpal tunnel surgery Trigger finger surgery Tubal ligation Pneumonia and asthma exacerbations Obesity, BMI 46.9 Related Data Home Medications Medication Instructions Recorded Confirmed ALBUTEROL SULFATE (Ventolin / 2 puff INH Q4H PRN #0 07/11/06 Proventil) ALBUTEROL SULFATE/IPRATROPIUM 1 ml INH #0 07/11/06 (Iprat-Albut 0.5-3(2.5) MG/3 Ml) Metformin Hydrochloride 1,000 mg PO BID #0 07/11/06 (Glucophage) Cetirizine Hydrochloride (Zyrtec) 10 mg PO Q DAY #0 09/24/09 FLUTICASONE 50MCG GRACIELA INH- 2 spray INTRANASAL BID #0 09/24/09 (FLUTICASONE PROPIONATE) Fluticasone Propionate/Salme 2 dose IH BID #0 09/24/09 (Advair Diskus 100/50) Montelukast Sodium (Singulair) 10 mg PO Q DAY #0 09/24/09 SPIRONOLACTONE (Aldactone) 50 mg PO Q DAY #0 09/24/09 [IGg] 45 g #0 09/24/09 budesonide [Pulmicort] 0.5 mg INH BIDP #0 05/21/12 docusate sodium 250 mg PO BID #0 05/21/12 zolpidem [Ambien] 10 mg PO HS #0 05/21/12 insulin glargine [Lantus Solostar 20 unit SQ BID #0 05/23/12 U-100 Insulin] insulin lispro [Humalog U-100 SQ TIDCC #0 05/23/12 Insulin] hydrocodone-acetaminophen [Irving] #0 06/04/17 [NPH] 20 QDAYPM #0 06/06/17 [NPH] 40 u QAM #0 06/06/17 clonidine HCl [Catapres] 0.1 mg PO BID #60 tab 06/06/17 furosemide [Lasix] 20 mg PO QDAY #0 06/06/17 gabapentin [Neurontin] 300 mg PO HS #0 06/06/17 guaifenesin [Mucinex] 1,200 mg PO Q12H #0 06/06/17 levothyroxine [Synthroid] 75 mcg PO QDAY #30 tab 06/06/17 lisinopril [Zestril] 30 mg PO QDAY #30 tab 06/06/17 lovastatin [Altoprev] 80 mg PO QHS #30 tab 06/06/17 polyethylene glycol 3350 [Miralax] 17 gm PO QDAY #0 06/06/17 pramipexole [Mirapex] 0.5 mg PO QHS #0 06/06/17 Previous Rx's Medication Instructions Recorded levofloxacin [Levaquin] 500 mg PO QDAY #7 tab 06/08/17 prednisone 10 mg PO [facility] #32 tab 06/08/17 hydrocodone-acetaminophen [Irving] 1 tab PO Q4H PRN #12 tab 04/13/18 lidocaine [Lidoderm] 3 patch TOP DAILY #30 each 04/13/18 Allergies Allergy/AdvReac Type Severity Reaction Status Date / Time hydroxychloroquine Allergy Unknown Unverified 07/25/17 11:59 [HYDROXYCHLOROQUINE] Review of Systems <Letitia Lester PA-C - Last Filed: 05/11/18 22:22> Review of Systems ROS Unobtainable: All systems reviewed & are unremarkable except as noted in HPI and below Exam <Letitia Lester PA-C - Last Filed: 05/11/18 22:22> Narrative Exam Narrative: GENERAL APPEARANCE: Patient resting comfortably, in no distress HEAD: No sinus TTP. EYES: PERRL, EOMI. EARS: Normal auditory canals, TMS intact with normal light reflexes. ORAL CAVITY: Normal oropharynx. THROAT: Clear. NECK/THYROID: Neck supple, full range of motion, no cervical lymphadenopathy. LUNGS: Breath sounds are coarse with a little bit of expiratory rhonchi in the left mid to lower lobes, occasional coarse cough on exam HEART: RRR without murmur, nl S1, S2, no S3 or S4. ABDOMEN: Soft, nontender, nondistended, +bowel sounds x4 quadrants EXTREMITIES: No edema, no cyanosis, no calf tenderness Initial Vital Signs Initial Vital Signs: Vital Signs Temperature 97.8 F 05/11/18 16:42 Pulse Rate 105 H 05/11/18 16:42 Respiratory Rate 16 05/11/18 16:42 Blood Pressure 162/86 H 05/11/18 16:42 Pulse Oximetry 97 05/11/18 16:42 <Lenin Gonzalez MD - Last Filed: 05/12/18 05:32> Initial Vital Signs Initial Vital Signs: Vital Signs Temperature 97.8 F 05/11/18 16:42 Pulse Rate 105 H 05/11/18 16:42 Respiratory Rate 16 05/11/18 16:42 Blood Pressure 162/86 H 05/11/18 16:42 Pulse Oximetry 97 05/11/18 16:42 Course <Letitia Lester PA-C - Last Filed: 05/11/18 22:22> Additional Information: Patient is stable, O2 saturation improved and fever resolved per her history. Her white count is down from a few days ago and her chest x-ray is stable to improved. She just increased her Levaquin dose 2 days ago and started her prednisone yesterday. She was given an extra 20 mg here this evening. She feels stable to be at home. Her lactate is slightly elevated however likely was higher earlier in the week when she was more symptomatic. We did repeat sputum cultures and also got blood cultures today, and she agreed to return if any acutely worsening symptoms over the weekend. Reviewed findings and w/u with Dr. Gonzalez who is agreeable with above. I spoke with her PCP Dr. Jeter and he will have his clinic contact patient on Sunday Orders Ordered: Discontinued Medications Albuterol (Ventolin) 2.5 mg INH NOW ONE Stop: 05/11/18 17:21 Last Admin: 05/11/18 17:21 Dose: 2.5 mg Albuterol (Ventolin) 2.5 mg INH NOW ONE Stop: 05/11/18 19:29 Last Admin: 05/11/18 19:43 Dose: 2.5 mg Sodium Chloride (Normal Saline 0.9%) 1,000 mls @ 1,000 mls/hr IV BOLUS ONE Stop: 05/11/18 19:21 Last Infusion: 05/11/18 20:25 Dose: 0 mls/hr Admin: 05/11/18 18:55 Dose: 1,000 mls/hr Prednisone (Deltasone) 20 mg PO NOW ONE Stop: 05/11/18 18:07 Last Admin: 05/11/18 18:16 Dose: 20 mg Vital Signs - 8 hr 05/11/18 16:42 05/11/18 17:22 05/11/18 18:00 Temperature 97.8 F Pulse Rate 105 H 78 99 H Respiratory Rate 16 14 17 Blood Pressure 162/86 H Blood Pressure [Left Arm] 142/72 H Pulse Oximetry 97 97 94 05/11/18 19:28 05/11/18 19:43 05/11/18 20:30 Temperature Pulse Rate 100 H 93 H 94 H Respiratory Rate 20 18 25 H Blood Pressure Blood Pressure [Left Arm] 135/55 L 137/79 Pulse Oximetry 96 100 97 05/11/18 20:52 Temperature Pulse Rate 93 H Respiratory Rate Blood Pressure 137/78 Blood Pressure [Left Arm] Pulse Oximetry 94 <Lenin Gonzalez MD - Last Filed: 05/12/18 05:32> Orders Ordered: Discontinued Medications Albuterol (Ventolin) 2.5 mg INH NOW ONE Stop: 05/11/18 17:21 Last Admin: 05/11/18 17:21 Dose: 2.5 mg Albuterol (Ventolin) 2.5 mg INH NOW ONE Stop: 05/11/18 19:29 Last Admin: 05/11/18 19:43 Dose: 2.5 mg Sodium Chloride (Normal Saline 0.9%) 1,000 mls @ 1,000 mls/hr IV BOLUS ONE Stop: 05/11/18 19:21 Last Infusion: 05/11/18 20:25 Dose: 0 mls/hr Admin: 05/11/18 18:55 Dose: 1,000 mls/hr Prednisone (Deltasone) 20 mg PO NOW ONE Stop: 05/11/18 18:07 Last Admin: 05/11/18 18:16 Dose: 20 mg Vital Signs - 8 hr 05/11/18 16:42 05/11/18 17:22 05/11/18 18:00 Temperature 97.8 F Pulse Rate 105 H 78 99 H Respiratory Rate 16 14 17 Blood Pressure 162/86 H Blood Pressure [Left Arm] 142/72 H Pulse Oximetry 97 97 94 05/11/18 19:28 05/11/18 19:43 05/11/18 20:30 Temperature Pulse Rate 100 H 93 H 94 H Respiratory Rate 20 18 25 H Blood Pressure Blood Pressure [Left Arm] 135/55 L 137/79 Pulse Oximetry 96 100 97 05/11/18 20:52 Temperature Pulse Rate 93 H Respiratory Rate Blood Pressure 137/78 Blood Pressure [Left Arm] Pulse Oximetry 94 MDM - SOB/Dyspnea <Letitia Lester PA-C - Last Filed: 05/11/18 22:22> Lab Data Attestation: I reviewed the patient's lab results. Result diagrams: 05/11/18 17:30 05/11/18 17:30 Lab Results 05/11/18 05/11/18 05/11/18 Range/Units 17:30 17:30 17:30 WBC 10.6 (4.5-11.0) X10^3/uL RBC 4.35 (4.0-5.2) X10^6/uL Hgb 12.2 (12.0-16.0) g/dL Hct 37.2 (36-46) % MCV 85.6 (80-100) fL MCH 28.0 (26-34) PG MCHC 32.7 (30-36) % RDW 15.8 H (11.6-14.8) % Plt Count 532 H (150-400) X10^3/uL Neut % (Auto) 84.4 H (50-75) % Lymph % (Auto) 10.6 L (25-40) % [place] % (Auto) 4.0 (3-14) % Eos % (Auto) 0.2 L (2-4) % Baso % (Auto) 0.8 (0-2) % Neut # (Auto) 8900 H (4281-5513) /uL Lymph # (Auto) 1100 (4928-4246) /uL [place] # (Auto) 400 (0-900) /uL Eos # (Auto) 0 (0-450) /uL Baso # (Auto) 100 (0-100) /uL Sodium 138 (137-145) mmol/L Potassium 4.7 (3.4-5.1) mmol/L Chloride 102 (98-107) mmol/L Carbon Dioxide 22 (22-32) mmol/L BUN 21 H (7-17) mg/dL Creatinine 0.90 (0.52-1.04) mg/dL Estimated GFR > 60.0 (>60) mL/min BUN/Creatinine Ratio 23.3 H (6-22) Glucose 196 H (80-110) mg/dL Lactate 2.5 H (0.7-2.1) mmol/L Calcium 9.7 (8.4-10.2) mg/dL Total Bilirubin 0.2 (0.2-1.3) mg/dL AST 18 (14-36) IU/L ALT 19 (9-52) IU/L Alkaline Phosphatase 82 (38-126) U/L B-Natriuretic Peptide (<100) Total Protein 7.7 (6.3-8.2) g/dL Albumin 4.1 (3.5-5.0) g/dL Globulin 3.6 (1.7-4.1) g/dL Albumin/Globulin Ratio 1.1 (1.0-2.8) 05/11/18 Range/Units 17:30 WBC (4.5-11.0) X10^3/uL RBC (4.0-5.2) X10^6/uL Hgb (12.0-16.0) g/dL Hct (36-46) % MCV (80-100) fL MCH (26-34) PG MCHC (30-36) % RDW (11.6-14.8) % Plt Count (150-400) X10^3/uL Neut % (Auto) (50-75) % Lymph % (Auto) (25-40) % [place] % (Auto) (3-14) % Eos % (Auto) (2-4) % Baso % (Auto) (0-2) % Neut # (Auto) (6704-8414) /uL Lymph # (Auto) (5887-4203) /uL [place] # (Auto) (0-900) /uL Eos # (Auto) (0-450) /uL Baso # (Auto) (0-100) /uL Sodium (137-145) mmol/L Potassium (3.4-5.1) mmol/L Chloride (98-107) mmol/L Carbon Dioxide (22-32) mmol/L BUN (7-17) mg/dL Creatinine (0.52-1.04) mg/dL Estimated GFR (>60) mL/min BUN/Creatinine Ratio (6-22) Glucose (80-110) mg/dL Lactate (0.7-2.1) mmol/L Calcium (8.4-10.2) mg/dL Total Bilirubin (0.2-1.3) mg/dL AST (14-36) IU/L ALT (9-52) IU/L Alkaline Phosphatase (38-126) U/L B-Natriuretic Peptide 130 H (<100) Total Protein (6.3-8.2) g/dL Albumin (3.5-5.0) g/dL Globulin (1.7-4.1) g/dL Albumin/Globulin Ratio (1.0-2.8) Imaging Data Chest x-ray: Radiologist's impression: [address] [address] XRay Report Signed Patient: Radha Zavaleta EMR#: [id number] : 8Acct:[id number] Age/Sex: 68 / FDate of Service: 05/11/18 Loc: ED Accession Number: [id number] Procedure: XR chest 2V Ordering Provider: Bernabe Najera D.O. PROCEDURE: XR CHEST 2V INDICATIONS: shortness of breath TECHNIQUE: 2 views of the chest were acquired. COMPARISON: 05/08/2018, and 06/23/2015. FINDINGS: Surgical changes and devices: Partially imaged surgical fusion devices from lower lumbar fixation. Lungs and pleura: No pneumothorax or substantial pleural effusion. Persistent patchy, ill-defined opacities of the bilateral mid and lower lung zones which appear stable to minimally improved. No new areas of focal consolidation identified. Mediastinum: Mediastinal contours are normal. Heart size is normal. Bones and chest wall: No suspicious bony abnormalities. Soft tissues appear unremarkable. IMPRESSION: Persistent bilateral mid and lower lung zone patchy opacity/ consolidation is compatible with multifocal airspace disease/pneumonia. Findings appear stable to minimally improved. No new foci of focal airspace disease. Recommend followup imaging in 4-6 weeks after treatment to document return to baseline exam. Dictated by: Aneesh Antonio M.D. on 05/11/2018 at 19:01 Approved by: Aneesh Antonio M.D. on 05/11/2018 at 19:04 ECG Data Attestation: I personally reviewed and interpreted this ECG as follows: (Sinus rhythm, rate 99, normal axis) <Lenin Gonzalez MD - Last Filed: 05/12/18 05:32> Lab Data Lab Results 05/11/18 05/11/18 05/11/18 Range/Units 17:30 17:30 17:30 WBC 10.6 (4.5-11.0) X10^3/uL RBC 4.35 (4.0-5.2) X10^6/uL Hgb 12.2 (12.0-16.0) g/dL Hct 37.2 (36-46) % MCV 85.6 (80-100) fL MCH 28.0 (26-34) PG MCHC 32.7 (30-36) % RDW 15.8 H (11.6-14.8) % Plt Count 532 H (150-400) X10^3/uL Neut % (Auto) 84.4 H (50-75) % Lymph % (Auto) 10.6 L (25-40) % [place] % (Auto) 4.0 (3-14) % Eos % (Auto) 0.2 L (2-4) % Baso % (Auto) 0.8 (0-2) % Neut # (Auto) 8900 H (2435-6089) /uL Lymph # (Auto) 1100 (3986-9106) /uL [place] # (Auto) 400 (0-900) /uL Eos # (Auto) 0 (0-450) /uL Baso # (Auto) 100 (0-100) /uL Sodium 138 (137-145) mmol/L Potassium 4.7 (3.4-5.1) mmol/L Chloride 102 (98-107) mmol/L Carbon Dioxide 22 (22-32) mmol/L BUN 21 H (7-17) mg/dL Creatinine 0.90 (0.52-1.04) mg/dL Estimated GFR > 60.0 (>60) mL/min BUN/Creatinine Ratio 23.3 H (6-22) Glucose 196 H (80-110) mg/dL Lactate 2.5 H (0.7-2.1) mmol/L Calcium 9.7 (8.4-10.2) mg/dL Total Bilirubin 0.2 (0.2-1.3) mg/dL AST 18 (14-36) IU/L ALT 19 (9-52) IU/L Alkaline Phosphatase 82 (38-126) U/L B-Natriuretic Peptide (<100) Total Protein 7.7 (6.3-8.2) g/dL Albumin 4.1 (3.5-5.0) g/dL Globulin 3.6 (1.7-4.1) g/dL Albumin/Globulin Ratio 1.1 (1.0-2.8) 05/11/18 Range/Units 17:30 WBC (4.5-11.0) X10^3/uL RBC (4.0-5.2) X10^6/uL Hgb (12.0-16.0) g/dL Hct (36-46) % MCV (80-100) fL MCH (26-34) PG MCHC (30-36) % RDW (11.6-14.8) % Plt Count (150-400) X10^3/uL Neut % (Auto) (50-75) % Lymph % (Auto) (25-40) % [place] % (Auto) (3-14) % Eos % (Auto) (2-4) % Baso % (Auto) (0-2) % Neut # (Auto) (8780-7677) /uL Lymph # (Auto) (2492-6355) /uL [place] # (Auto) (0-900) /uL Eos # (Auto) (0-450) /uL Baso # (Auto) (0-100) /uL Sodium (137-145) mmol/L Potassium (3.4-5.1) mmol/L Chloride (98-107) mmol/L Carbon Dioxide (22-32) mmol/L BUN (7-17) mg/dL Creatinine (0.52-1.04) mg/dL Estimated GFR (>60) mL/min BUN/Creatinine Ratio (6-22) Glucose (80-110) mg/dL Lactate (0.7-2.1) mmol/L Calcium (8.4-10.2) mg/dL Total Bilirubin (0.2-1.3) mg/dL AST (14-36) IU/L ALT (9-52) IU/L Alkaline Phosphatase (38-126) U/L B-Natriuretic Peptide 130 H (<100) Total Protein (6.3-8.2) g/dL Albumin (3.5-5.0) g/dL Globulin (1.7-4.1) g/dL Albumin/Globulin Ratio (1.0-2.8) Discharge Plan Departure Patient Disposition: Home Clinical Impression: Pneumonia, Bronchiectasis Discharge Date/Time: 05/11/18 20:54 Interventions: ED Discharge Assessment Last Done: 05/11/18 20:52 Instructions: DI for Pneumonia -- Adult Activity Restrictions/Additional Instructions: Please continue your Levaquin at 750 mg daily. We have given you an extra 20 mg of prednisone today. Please continue 60 mg tomorrow and Sunday. Continue using your nebulizers (use your DuoNeb twice daily and use your albuterol as frequently as you need for cough and tight chest). Return as we talked about if you are feeling acutely worse, i.e. in terms of your breathing, if you have recurrent fever, etc. Otherwise, I have spoken with Dr. Jeter and he said his office will call you on Sunday regarding follow up as they may be able to see you sooner. Your preliminary cultures should be back on Sunday for review Prescriptions: No Action Metformin Hydrochloride (Glucophage) 1,000 mg PO BID Qty: 0 RF: 0 ALBUTEROL SULFATE (Ventolin / Proventil) 2 puff INH Q4H PRN Qty: 0 RF: 0 ALBUTEROL SULFATE/IPRATROPIUM (Iprat-Albut 0.5-3(2.5) MG/3 Ml) 1 ml INH Qty: 0 RF: 0 SPIRONOLACTONE (Aldactone) 50 mg PO Q DAY Qty: 0 RF: 0 Fluticasone Propionate/Salme (Advair Diskus 100/50) 2 dose IH BID Qty: 0 RF: 0 Montelukast Sodium (Singulair) 10 mg PO Q DAY Qty: 0 RF: 0 FLUTICASONE 50MCG GRACIELA INH- (FLUTICASONE PROPIONATE) 2 spray Intranasal BID Qty: 0 RF: 0 Cetirizine Hydrochloride (Zyrtec) 10 mg PO Q DAY Qty: 0 RF: 0 [IGg] 45 g Qty: 0 RF: 0 budesonide [Pulmicort] 0.5 MG/2 ML suspension for nebulization 0.5 mg INH BIDP Qty: 0 RF: 0 zolpidem [Ambien] 10 MG tablet 10 mg PO HS Qty: 0 RF: 0 docusate sodium 250 MG capsule 250 mg PO BID Qty: 0 RF: 0 insulin lispro [Humalog U-100 Insulin] 100 UNIT/1 ML cartridge SQ TIDCC Qty: 0 RF: 0 insulin glargine [Lantus Solostar U-100 Insulin] 100 UNIT/1 ML insulin pen 20 unit SQ BID Qty: 0 RF: 0 hydrocodone-acetaminophen [Irving] 5 MG/325 MG tablet Qty: 0 RF: 0 levothyroxine [Synthroid] 75 MCG tablet 75 mcg PO QDAY Qty: 30 RF: 0 clonidine HCl [Catapres] 0.1 MG tablet 0.1 mg PO BID Qty: 60 RF: 0 furosemide [Lasix] 20 MG tablet 20 mg PO QDAY Qty: 0 RF: 0 lisinopril [Zestril] 30 MG tablet 30 mg PO QDAY Qty: 30 RF: 0 lovastatin [Altoprev] 40 MG tablet extended release 24 hr 80 mg PO QHS Qty: 30 RF: 0 [NPH] 40 u QAM Qty: 0 RF: 0 [NPH] 20 QDAYPM Qty: 0 RF: 0 guaifenesin [Mucinex] 1,200 MG tablet extended release 12hr 1,200 mg PO Q12H Qty: 0 RF: 0 polyethylene glycol 3350 [Miralax] 119 GM powder 17 gm PO QDAY Qty: 0 RF: 0 gabapentin [Neurontin] 300 MG capsule 300 mg PO HS Qty: 0 RF: 0 pramipexole [Mirapex] 0.5 MG tablet 0.5 mg PO QHS Qty: 0 RF: 0 prednisone 10 MG tablet 10 mg PO AMCC Qty: 32 RF: 0 levofloxacin [Levaquin] 500 MG tablet 500 mg PO QDAY Qty: 7 RF: 0 hydrocodone-acetaminophen [Irving] 5-325 mg tablet 1 tab PO Q4H PRN (Reason: acute shoulder pain) Qty: 12 RF: 0 lidocaine [Lidoderm] 5 % adhesive patch,medicated 3 patch TOP DAILY Qty: 30 RF: 0 Referrals: Hang Arshad MD [Non-Staff] - Scott Jeter MD [Physician] - <Lenin Gonzalez MD - Last Filed: 05/12/18 05:32> [facility] I was present in the ER at the time this patient's care. The evaluation and management of this patient was discussed on several occasions. I agree with the assessment and treatment plan.
[2018-05-11 21:38] LABS: Reflexed Lactate in 2 Hours Y
== END 2018-05-11 20:54 | disposition home or self-care (01) ==
PROVIDERS: Emergency Medicine; Emergency Provider Internal Medicine
DX: J18.9 Pneumonia, unspecified organism (principal); J47.9 Bronchiectasis, uncomplicated
CPT/HCPCS: 36415; 71046; 80053; 83605; 83880; 85025; 87040; 87070; 87205; 89220; 93005; 93010; 94150; 94640; 94667; 96360; 99283; 99285; J7613

== ENCOUNTER → 2018-12-13 13:32 | Outpatient (CLI) | payer OTHER, SELFPAY ==
[2018-12-13 13:51] LABS: Add Manual Diff / Slide Review NO; Basophils Absolute Auto 200 /uL (0-100); Basophils Percent Auto 1.1 % (0-2); Eosinophils Absolute Auto 200 /uL (0-450); Eosinophils Percent Auto 1.2 % (2-4); Hematocrit 37.8 % (36-46); Hemoglobin 11.9 g/dL (12.0-16.0); Lymphocytes Absolute Auto 2300 /uL (1100-4500); Lymphocytes Percent Auto 14.4 % (25-40); Mean Corpuscular HGB Conc 31.5 % (30-36); Mean Corpuscular Volume 79.4 fL (80-100); Monocytes Absolute Auto 1200 /uL (0-900); Monocytes Percent Auto 7.6 % (3-14); Neutrophils Absolute Auto 12300 /uL (1500-7000); Neutrophils Percent Auto 75.7 % (50-75); Platelet Count 545 X10^3/uL (150-400); Red Blood Cell Count 4.76 X10^6/uL (4.0-5.2); Red Cell Distribution Width 18.5 % (11.6-14.8); White Blood Cell Count 16.2 X10^3/uL (4.5-11.0)
[2018-12-13 14:05] LABS: Lactate (Lactic Acid) 1.8 mmol/L (0.7-2.1)
== END ==
PROVIDERS: Visit Provider Allergy & Immunology
DX: D83.9 Common variable immunodeficiency, unspecified (principal)
CPT/HCPCS: 36415; 83605; 85025

== ENCOUNTER → 2019-02-05 14:48 | Outpatient (ROUT) | payer OTHER, SELFPAY ==
[2019-02-05 16:07] LABS: Carcinoembryonic Antigen 8.7 ng/mL (0.1-3.0)
[2019-02-05 16:25] LABS: Vitamin B12 801 pg/mL (239-931)
== END ==
PROVIDERS: Visit Provider Internal Medicine
DX: R97.0 Elevated carcinoembryonic antigen [CEA] (principal); E53.8 Deficiency of other specified B group vitamins
CPT/HCPCS: 82378; 82607

== ENCOUNTER → 2019-02-08 09:50 | Outpatient (CLI) | payer OTHER, SELFPAY ==
--- NOTE | 2019-02-08 | DI.RAD.S_ITS ---
PROCEDURE: XR FOOT RT MIN 3V INDICATIONS: pain TECHNIQUE: 3 views of the foot were acquired. COMPARISON: [facility], CR, XR ANKLE RT MIN 3V, 02/08/2019, 9:55. [facility], CR, FOOT 3V RIGHT, 05/09/2017, 14:14. FINDINGS: Bones: No fractures or dislocations. No suspicious bony lesions. Moderate hallux valgus deformity is seen, with associated focal degenerative change of the 1st metatarsophalangeal joint. Milder degenerative changes are seen elsewhere. Stable 4th and 5th toe alignment abnormalities are seen. There is moderate medial femorotibial joint space narrowing seen, with associated remodeling changes including subchondral sclerosis and osteophyte formation along the jointline. Soft tissues: No tibiotalar joint effusion. Achilles tendon appears normal. IMPRESSION: Stable findings of moderate hallux valgus deformity and 4th and 5th toe alignment abnormalities. Dictated by: Ángel Naik M.D. on 02/08/2019 at 9:31 Approved by: Ángel Naik M.D. on 02/08/2019 at 9:32
--- NOTE | 2019-02-08 | DI.RAD.S_ITS ---
PROCEDURE: XR ANKLE RT MIN 3V INDICATIONS: pain TECHNIQUE: 3 views of the ankle were acquired. COMPARISON: [facility], CR, FOOT 3V RIGHT, 05/09/2017, 14:14. [facility], CR, XR FOOT RT MIN 3V, 02/08/2019, 9:55. FINDINGS: Bones: Focal irregularity is seen involving the lateral malleolus, with a lucent line seen. No additional focal bony abnormalities can be seen elsewhere. The talar dome demonstrates no jace abnormality. No suspicious lytic or blastic lesions are seen. Age-appropriate bony degenerative changes are seen. Soft tissues: No tibiotalar joint effusion. Achilles tendon appears normal. IMPRESSION: Focal irregularity seen involving the lateral malleolus, which is most likely to be artifactual and related to prominent trabeculations. Differential diagnosis includes a minimally displaced subacute fracture, however. Please correlate with patient history and focal tenderness. Dictated by: Ángel Naik M.D. on 02/08/2019 at 9:28 Approved by: Ángel Naik M.D. on 02/08/2019 at 9:31
== END ==
PROVIDERS: PCP Internal Medicine; Visit Provider Podiatrist
DX: M25.571 Pain in right ankle and joints of right foot (principal)
CPT/HCPCS: 73610; 73630

== ENCOUNTER → 2019-02-21 10:43 | Outpatient (CLI) | payer OTHER, SELFPAY | PROVIDERS: Family Provider Internal Medicine Infectious Disease; PCP Internal Medicine; Visit Provider Allergy & Immunology | DX: D80.1 Nonfamilial hypogammaglobulinemia (principal); D83.9 Common variable immunodeficiency, unspecified | CPT/HCPCS: 87070; 87077; 87186; 87205 ==

== ENCOUNTER → 2019-03-11 16:47 | Outpatient (CLI) | payer OTHER, SELFPAY | PROVIDERS: Family Provider Internal Medicine Infectious Disease; PCP Internal Medicine; Visit Provider Allergy & Immunology | DX: D80.1 Nonfamilial hypogammaglobulinemia (principal); J44.1 Chronic obstructive pulmonary disease with (acute) exacerbation | CPT/HCPCS: 87070; 87077; 87186; 87205 ==

== ENCOUNTER 2019-06-05 15:09 | Emergency (ER) | payer OTHER, SELFPAY ==
[2019-06-05 15:12] VITALS: BP 174/77; PULSE 105; RESP 22; TEMP 36.6; O2SAT 95; BMI 42.0
--- NOTE | 2019-06-05 15:27 | DI.RAD.S_ITS ---
PROCEDURE: XR CHEST 2V INDICATIONS: sob, wheezing TECHNIQUE: 2 views of the chest were acquired. COMPARISON: [facility], CR, XR CHEST 1 VIEW, 03/17/2019, 16:28. [facility], CR, XR CHEST 2 VIEWS, 04/30/2019, 15:12. [facility], CR, XR CHEST 2 VIEWS, 03/12/2019, 16:33. [facility], CR, XR CHEST 2V, 05/11/2018, 17:22. FINDINGS: Surgical changes and devices: None. Lungs and pleura: Left basilar opacities may be infiltrate or atelectasis. No pleural effusions or pneumothorax. Mediastinum: Mediastinal contours are normal. Heart size is normal. Bones and chest wall: No suspicious bony abnormalities. Soft tissues appear unremarkable. IMPRESSION: Left basilar infiltrate or atelectasis. Dictated by: Aubree Bardales M.D. on 06/05/2019 at 15:42 Approved by: Aubree Bardales M.D. on 06/05/2019 at 15:44
--- NOTE | 2019-06-05 15:30 | ED.SOB ---
HPI - SOB/Dyspnea <Joanne Torres, DIRECTOR OF [employer] - Last Filed: 06/05/19 20:13> General Chief Complaint: Shortness of Breath/Dyspnea Stated Complaint: wheezing, short of breath Time Seen by Provider: 06/05/19 15:20 Source: patient and family Mode of arrival: Ambulatory Limitations: no limitations History of Present Illness HPI Narrative: The patient is a 69-year-old female nonsmoker with history of pneumonia, bronchiectasis, Pseudomonas who presents with a chief complaint of wheezing. She states that she sees an infectious disease physician and yves Judge. Recent sputum cultures show strep B so she is on amoxicillin. She states that over the past few days she has been increasingly wheezy. She states that she would like a chest x-ray here today. She denies any fevers nausea vomiting or diarrhea. She takes 5 mg of p.o. prednisone daily for adrenal insufficiency, but states that she has not increased her dose at all recently. She denies any chest pain but does complain of shortness of breath related to wheezing. Related Data Home Medications Medication Instructions Recorded Confirmed budesonide [Pulmicort] 0.5 mg INH BIDP #0 05/21/12 06/05/19 docusate sodium 500 mg PO BEDTIME #0 05/21/12 06/05/19 zolpidem [Ambien] 10 mg PO HS #0 05/21/12 06/05/19 Altoprev 80 mg PO BEDTIME #30 tab 06/06/17 06/05/19 Mucinex 1,200 mg PO Q12H #0 06/06/17 06/05/19 clonidine HCl [Catapres] 0.1 mg PO BID #60 tab 06/06/17 06/05/19 furosemide [Lasix] 20 mg PO DAILY #0 06/06/17 06/05/19 levothyroxine [Synthroid] 75 mcg PO DAILY #30 tab 06/06/17 06/05/19 polyethylene glycol 3350 [Miralax] 17 gm PO DAILY PRN #0 06/06/17 06/05/19 albuterol sulfate 90 mcg/actuation 2 puff INHALATION Q4-6H PRN 05/29/19 06/05/19 aerosol inhaler aspirin 81 mg tablet,delayed 81 mg PO DAILY 02/13/20 02/20/20 release cetirizine 10 mg tablet 10 mg PO DAILY PRN tab 05/29/19 06/05/19 cholecalciferol (vitamin D3) 50 2,000 unit PO DAILY 05/29/19 06/05/19 mcg (2,000 unit) tablet ferrous sulfate 325 mg (65 mg 325 mg PO DAILY 05/29/19 06/05/19 iron) tablet fluticasone 500 mcg-salmeterol 50 1 inhalation INHALATION BID 05/29/19 06/05/19 mcg/dose blistr powdr for inhalation immun glob G(IgG)-pro-IgA 0-50 10 45 gram IV Q3W ml 05/29/19 06/05/19 %-pro-IgA 0 to 50 mcg/mL intravenous solution insulin degludec 200 unit/mL (3 40 unit SUBCUT QAM ml 05/29/19 06/05/19 mL) subcutaneous pen insulin lispro 100 unit/mL See Rx Instructions SUBCUT 05/29/19 06/05/19 subcutaneous cartridge .COMPLEX #0 ipratropium 0.5 mg-albuterol 3 mg 3 ml INHALATION Q4-6H PRN 05/29/19 06/05/19 (2.5 mg base)/3 mL nebulization soln losartan 50 mg tablet 50 mg PO DAILY 05/29/19 06/05/19 metformin 1,000 mg tablet 1,000 mg PO BID 05/29/19 06/05/19 montelukast 10 mg tablet 10 mg PO BEDTIME 05/29/19 06/05/19 nortriptyline 25 mg capsule 25 mg PO QPM 05/29/19 06/05/19 ondansetron HCl 4 mg tablet 4 mg PO Q8H 05/29/19 06/05/19 prednisone 10 mg tablet 5 mg PO [facility] tab 05/29/19 06/05/19 spironolactone 50 mg tablet 50 mg PO DAILY 05/29/19 06/05/19 tizanidine 4 mg capsule 4 mg PO TID PRN 05/29/19 06/05/19 tramadol 50 mg tablet 50 mg PO TID PRN 05/29/19 06/05/19 fluticasone propionate 50 1 spray NASAL BID PRN 05/31/19 06/05/19 mcg/actuation nasal spray,suspension amoxicillin 500 mg PO Q8H 06/05/19 06/05/19 gabapentin 600 mg PO TID 06/05/19 06/05/19 lansoprazole 30 mg PO BID 06/05/19 06/05/19 nystatin 1 ml PO PRN PRN 06/05/19 06/05/19 pramipexole 0.5 mg PO BEDTIME 06/05/19 06/05/19 sodium chloride 3 ml INHALATION DIRECTED 06/05/19 06/05/19 Previous Rx's Medication Instructions Recorded prednisone 40 mg PO DAILY #10 tab 06/05/19 Allergies Allergy/AdvReac Type Severity Reaction Status Date / Time hydroxychloroquine Allergy Unknown Verified 06/05/19 15:12 [HYDROXYCHLOROQUINE] cefepime AdvReac Severe pruritis Verified 06/05/19 15:12 Review of Systems <PREETI Licona - Last Filed: 06/05/19 20:13> Review of Systems Narrative: GENERAL: Denies chills, fatigue, malaise, fever, sweats. HEENT: Denies sinus pain, ear pain, sore throat, difficulty swallowing, dizziness. RESPIRATORY: See HPI CARDIOVASCULAR: Denies chest pain, palpitations, orthopnea, edema, GASTROINTESTINAL: Denies nausea, vomiting, abdominal pain, diarrhea, constipation, melena. : Denies dysuria, frequency, incontinence, hematuria, urinary retention. MUSCULOSKELETAL: denies weakness, joint pain, or bony pain SKIN: Denies rash, skin lesions, or other NEUROLOGIC: Denies weakness, headache, numbness, change in speech, confusion, seizures, incoordination. PSYCHIATRIC: No concerning psychosocial issues. 12 point review of systems is negative except for those stated above Patient History <PREETI Licona - Last Filed: 06/05/19 20:13> Medical History Abnormal chest xray (Inactive ~1979) Anemia (Chronic) Ankle pain (Chronic) Asthma (Chronic ~1959) Bronchiectasis (Inactive ~2006) Cervical spine disease (Chronic) Chronic back pain (Chronic) Colon polyps (Chronic ~2016) Degenerative joint disease of spine (Chronic ~2001) Diabetes mellitus, type II (Chronic ~2009) Eczema (Inactive) Fibromyalgia (Acute) Foot pain (Chronic) Hoarseness (Chronic) Hyperlipidemia (Acute) Hypertension (Acute) Hypothyroidism (Acute) Migraines (Chronic ~1964) MRSA (methicillin resistant Staphylococcus aureus) (Resolved ~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 (Inactive) Osteoarthritis (Chronic) Osteopenia (Chronic) Pneumonia (Resolved) Recurrent sinusitis (Chronic ~1970) Restless leg syndrome (Chronic) Shoulder pain (Chronic ~03/2018) Sleep apnea (Chronic) Wears glasses (Chronic) Surgical History Anesthesia (Resolved) History of carpal tunnel release (Resolved) History of cataract removal with insertion of prosthetic lens (Resolved ~2014) History of section (Resolved) History of laminectomy (Resolved ~2002) History of spinal fusion (Resolved ~2012) History of thumb surgery (Resolved) Family History Father Stroke Mother Hypertension Brother Cerebral aneurysm Prostate cancer Diabetes mellitus Hypertension Stroke Brother Arthritis Hyperlipidemia Hypertension Sister History of kidney cancer Hypertension Grandfather Cancer Grandmother Cancer Other Family history non-contributory Social History Smoking Status: Never smoker Smoking Status: Never smoker Substance Use Type: does not use Exam <PREETI Licona - Last Filed: 06/05/19 20:13> Narrative Exam Narrative: GENERAL: Chronically ill-appearing female in no acute distress HEAD: Atraumatic. Normocephalic. No temporal or scalp tenderness. EYES: Pupils equal round and reactive. Extraocular motions intact. No scleral icterus. No injection or drainage. ENT: Nose without bleeding, purulent drainage or septal hematoma. Throat without erythema, tonsillar hypertrophy or exudate. Uvula midline. Airway patent. NECK: Trachea midline. No JVD or lymphadenopathy. Supple, nontender, no meningeal signs. CARDIOVASCULAR: Regular rate and rhythm without murmurs, gallops, or rubs. RESPIRATORY: Diffuse expiratory wheezes bilaterally to auscultation. Initially 1-2 word sentences. Speaking full sentences after neb. No tachypnea. No increased respiratory effort. Occasional cough. No rales noted bilaterally. GASTROINTESTINAL: Abdomen soft, non-tender, nondistended. No hepato-splenomegaly, or palpable masses. No guarding. EXTREMITIES: No clubbing, cyanosis, or edema. No joint tenderness, effusion, or edema noted. BACK: Nontender without deformity or crepitance. No flank tenderness. NEURO: AOx3. SKIN: No rash or erythema on visible skin Initial Vital Signs Initial Vital Signs: Vital Signs Temperature 97.9 F 06/05/19 15:12 Pulse Rate 105 H 06/05/19 15:12 Respiratory Rate 22 06/05/19 15:12 Blood Pressure 174/77 H 06/05/19 15:12 Pulse Oximetry 95 06/05/19 15:12 <Jose M Smiht DO - Last Filed: 06/06/19 07:06> Initial Vital Signs Initial Vital Signs: Vital Signs Temperature 97.9 F 06/05/19 15:12 Pulse Rate 105 H 06/05/19 15:12 Respiratory Rate 22 06/05/19 15:12 Blood Pressure 174/77 H 06/05/19 15:12 Pulse Oximetry 95 06/05/19 15:12 Scores <PREETI Licona - Last Filed: 06/05/19 20:13> CURB-65 Confusion: No BUN >19mg/dL (>7mmol/L): No Respiratory rate greater or equal to 30: No SBP <90mmHg or DBP less or equal to 60mmHg: No Age 65 or Older: Yes CURB-65 Total: 1 Score 0-1 Outpatient care, Score 2 Inpt vs. Obs, Score 3 or over Inpt admit with ICU for score of 4-5 Course <PREETI Licona - Last Filed: 06/05/19 20:13> Orders Ordered: Discontinued Medications Albuterol/Ipratropium (Duoneb) 3 ml INH NOW ONE Stop: 06/05/19 15:28 Last Admin: 06/05/19 15:44 Dose: 3 ml Documented by: YESSICA Albuterol/Ipratropium (Duoneb) 3 ml INH NOW ONE Stop: 06/05/19 17:04 Last Admin: 06/05/19 17:07 Dose: 3 ml Documented by: GRADY Meropenem (Merrem) 1 gm in 50 mls @ 100 mls/hr IV NOW ONE Stop: 06/05/19 17:49 Last Infusion: 06/05/19 18:04 Dose: 0 mls/hr Documented by: Admin: 06/05/19 17:29 Dose: 100 mls/hr Documented by: RICKEY Vital Signs Vital signs: Vital Signs - 8 hr 06/05/19 15:12 06/05/19 15:45 06/05/19 16:30 Temperature 97.9 F Pulse Rate 105 H 85 95 H Respiratory Rate 22 18 27 H Blood Pressure 174/77 H Blood Pressure [Right Arm] 130/59 L Pulse Oximetry 95 94 95 06/05/19 17:02 06/05/19 17:07 06/05/19 18:59 Temperature Pulse Rate 90 88 91 H Respiratory Rate 20 Blood Pressure 117/58 L Blood Pressure [Right Arm] 130/59 L Pulse Oximetry 93 96 <Jose M Smith DO - Last Filed: 06/06/19 07:06> Orders Ordered: Discontinued Medications Albuterol/Ipratropium (Duoneb) 3 ml INH NOW ONE Stop: 06/05/19 15:28 Last Admin: 06/05/19 15:44 Dose: 3 ml Documented by: YESSICA Albuterol/Ipratropium (Duoneb) 3 ml INH NOW ONE Stop: 06/05/19 17:04 Last Admin: 06/05/19 17:07 Dose: 3 ml Documented by: GRADY Meropenem (Merrem) 1 gm in 50 mls @ 100 mls/hr IV NOW ONE Stop: 06/05/19 17:49 Last Infusion: 06/05/19 18:04 Dose: 0 mls/hr Documented by: Admin: 06/05/19 17:29 Dose: 100 mls/hr Documented by: RICKEY Vital Signs Vital signs: Vital Signs - 8 hr 06/05/19 15:12 06/05/19 15:45 06/05/19 16:30 Temperature 97.9 F Pulse Rate 105 H 85 95 H Respiratory Rate 22 18 27 H Blood Pressure 174/77 H Blood Pressure [Right Arm] 130/59 L Pulse Oximetry 95 94 95 06/05/19 17:02 06/05/19 17:07 06/05/19 18:59 Temperature Pulse Rate 90 88 91 H Respiratory Rate 20 Blood Pressure 117/58 L Blood Pressure [Right Arm] 130/59 L Pulse Oximetry 93 96 MDM - SOB/Dyspnea <Joanne Torres, DIRECTOR [employer] - Last Filed: 06/05/19 20:13> Lab Data Result diagrams: 06/05/19 16:24 06/05/19 16:24 Labs: Lab Results 06/05/19 06/05/19 06/05/19 Range/Units 15:30 16:24 16:24 WBC 10.7 (4.5-11.0) X10^3/uL RBC 4.31 (4.0-5.2) X10^6/uL Hgb 11.9 L (12.0-16.0) g/dL Hct 36.3 (36-46) % MCV 84.2 (80-100) fL MCH 27.6 (26-34) PG MCHC 32.8 (30-36) % RDW 18.5 H (11.6-14.8) % Plt Count 471 H (150-400) X10^3/uL Neut % (Auto) 73.9 (50-75) % Lymph % (Auto) 15.0 L (25-40) % [place] % (Auto) 9.4 (3-14) % Eos % (Auto) 1.1 L (2-4) % Baso % (Auto) 0.6 (0-2) % Neut # (Auto) 7900 H (7111-4291) /uL Lymph # (Auto) 1600 (7499-8642) /uL [place] # (Auto) 1000 H (0-900) /uL Eos # (Auto) 100 (0-450) /uL Baso # (Auto) 100 (0-100) /uL Sodium 139 (137-145) mmol/L Potassium 4.1 (3.4-5.1) mmol/L Chloride 101 (98-107) mmol/L Carbon Dioxide 25 (22-32) mmol/L BUN 18 H (7-17) mg/dL Creatinine 0.90 (0.52-1.04) mg/dL Estimated GFR > 60.0 (>60) mL/min BUN/Creatinine Ratio 20.0 (6-22) Glucose 159 H (80-110) mg/dL Calcium 9.4 (8.4-10.2) mg/dL Total Bilirubin 0.4 (0.2-1.3) mg/dL AST 33 (14-36) IU/L ALT 21 (<35) IU/L Alkaline Phosphatase 72 (38-126) U/L NT-Pro-B Natriuret Pep 66 (<125) pg/mL Total Protein 8.7 H (6.3-8.2) g/dL Albumin 4.4 (3.5-5.0) g/dL Globulin 4.3 H (1.7-4.1) g/dL Albumin/Globulin Ratio 1.0 (1.0-2.8) Procalcitonin (<0.5) ng/mL Chlamy pneumoniae PCR (Not Detect) Adenovirus (PCR) (Not Detect) B.parapertussis DNA PCR (Not Detect) Coronavirus OC43 (PCR) (Not Detect) Coronavirus HKU1 (PCR) (Not Detect) Coronavirus 229E (PCR) (Not Detect) Coronavirus NL63 (PCR) (Not Detect) Human Metapneumovir PCR (Not Detect) Influenza Type A (PCR) (Not Detect) Influenza Type B (PCR) (Not Detect) M. pneumoniae (PCR) (Not Detect) Parainfluenza 1 (PCR) (Not Detect) Parainfluenza 2 (PCR) (Not Detect) Parainfluenza 3 (PCR) (Not Detect) Parainfluenza 4 (PCR) (Not Detect) RSV (PCR) (Not Detect) Entero/Rhino (PCR) (Not Detect) 06/05/19 06/05/19 Range/Units 16:24 16:28 WBC (4.5-11.0) X10^3/uL RBC (4.0-5.2) X10^6/uL Hgb (12.0-16.0) g/dL Hct (36-46) % MCV (80-100) fL MCH (26-34) PG MCHC (30-36) % RDW (11.6-14.8) % Plt Count (150-400) X10^3/uL Neut % (Auto) (50-75) % Lymph % (Auto) (25-40) % [place] % (Auto) (3-14) % Eos % (Auto) (2-4) % Baso % (Auto) (0-2) % Neut # (Auto) (4603-4051) /uL Lymph # (Auto) (5084-4062) /uL [place] # (Auto) (0-900) /uL Eos # (Auto) (0-450) /uL Baso # (Auto) (0-100) /uL Sodium (137-145) mmol/L Potassium (3.4-5.1) mmol/L Chloride (98-107) mmol/L Carbon Dioxide (22-32) mmol/L BUN (7-17) mg/dL Creatinine (0.52-1.04) mg/dL Estimated GFR (>60) mL/min BUN/Creatinine Ratio (6-22) Glucose (80-110) mg/dL Calcium (8.4-10.2) mg/dL Total Bilirubin (0.2-1.3) mg/dL AST (14-36) IU/L ALT (<35) IU/L Alkaline Phosphatase (38-126) U/L NT-Pro-B Natriuret Pep (<125) pg/mL Total Protein (6.3-8.2) g/dL Albumin (3.5-5.0) g/dL Globulin (1.7-4.1) g/dL Albumin/Globulin Ratio (1.0-2.8) Procalcitonin < 0.05 (<0.5) ng/mL Chlamy pneumoniae PCR Not detected (Not Detect) Adenovirus (PCR) Not detected (Not Detect) B.parapertussis DNA PCR Not detected (Not Detect) Coronavirus OC43 (PCR) Not detected (Not Detect) Coronavirus HKU1 (PCR) Not detected (Not Detect) Coronavirus 229E (PCR) Not detected (Not Detect) Coronavirus NL63 (PCR) Not detected (Not Detect) Human Metapneumovir PCR Not detected (Not Detect) Influenza Type A (PCR) Not detected (Not Detect) Influenza Type B (PCR) Not detected (Not Detect) M. pneumoniae (PCR) Not detected (Not Detect) Parainfluenza 1 (PCR) Not detected (Not Detect) Parainfluenza 2 (PCR) Not detected (Not Detect) Parainfluenza 3 (PCR) Not detected (Not Detect) Parainfluenza 4 (PCR) Not detected (Not Detect) RSV (PCR) Not detected (Not Detect) Entero/Rhino (PCR) Not detected (Not Detect) Urine Dip Bedside Urine Glucose Negative Bedside Urine Bilirubin - Negative Bedside Urine Ketone - Negative Urine Specific Girard 1.010 Bedside Urine Occult Blood +/- Bedside Urine pH 6.0 Bedside Urine Protein - Negative Bedside Urine Urobilinogen - Negative Bedside Urine Nitrite - Negative Bedside Urine Leukocytes ++ 125 Esterase Imaging Data Chest x-ray: Radiologist's Impression: [address] [place] [id number] XRay Report Signed Patient: Radha Zavaleta EMR#: [id number] : 8Acct:[id number] Age/Sex: 69 / FDate of Service: 06/05/19 Loc: ED Accession Number: [id number] Procedure: XR chest 2V Ordering Provider: Joanne Torres PROCEDURE: XR CHEST 2V INDICATIONS: sob, wheezing TECHNIQUE: 2 views of the chest were acquired. COMPARISON: [facility], CR, XR CHEST 1 VIEW, 03/17/2019, 16:28. [facility], CR, XR CHEST 2 VIEWS, 04/30/2019, 15:12. [facility], CR, XR CHEST 2 VIEWS, 03/12/2019, 16:33. [facility], CR, XR CHEST 2V, 05/11/2018, 17:22. FINDINGS: Surgical changes and devices: None. Lungs and pleura: Left basilar opacities may be infiltrate or atelectasis. No pleural effusions or pneumothorax. Mediastinum: Mediastinal contours are normal. Heart size is normal. Bones and chest wall: No suspicious bony abnormalities. Soft tissues appear unremarkable. IMPRESSION: Left basilar infiltrate or atelectasis. Dictated by: Aubree Bardales M.D. on 06/05/2019 at 15:42 Approved by: Aubree Bardales M.D. on 06/05/2019 at 15:44 MDM Narrative Medical decision making narrative: The patient is a 69-year-old female with a complicated medical history including Pseudomonas, pneumonia, bronchiectasis who presents with a chief complaint of increased sputum production, shortness of breath, cough and wheezing. She does have an extensive history with Infectious Disease, x-rays concerning for left lower lobe atelectasis versus infiltrate. No elevated white blood cell count, negative procalcitonin. I did call and speak with the on-call of [facility] infectious disease, who states that the patient should be treated with meropenem at this point time. I discussed the patient has negative procalcitonin, he states that she should be treated based on increased sputum production, wheezing and symptoms. Sputum culture obtained. I did contact Dr. Nance for admission, who came down to evaluate the patient. He does not feel as though she warrants admission at this point time. Patient is okay with this plan, was placed on prednisone burst. She states she will come back if she has any fevers, increased shortness of breath or acute concerns. Patient has no questions or concerns upon discharge and states understanding of return precautions as well as follow-up care. She states she will follow up with infectious disease as well as her primary care provider. Patient has been hemodynamically stable, oxygenating well throughout her stay in the emergency department. <Jose M Smith DO - Last Filed: 06/06/19 07:06> Lab Data Labs: Lab Results 06/05/19 06/05/19 06/05/19 Range/Units 15:30 16:24 16:24 WBC 10.7 (4.5-11.0) X10^3/uL RBC 4.31 (4.0-5.2) X10^6/uL Hgb 11.9 L (12.0-16.0) g/dL Hct 36.3 (36-46) % MCV 84.2 (80-100) fL MCH 27.6 (26-34) PG MCHC 32.8 (30-36) % RDW 18.5 H (11.6-14.8) % Plt Count 471 H (150-400) X10^3/uL Neut % (Auto) 73.9 (50-75) % Lymph % (Auto) 15.0 L (25-40) % [place] % (Auto) 9.4 (3-14) % Eos % (Auto) 1.1 L (2-4) % Baso % (Auto) 0.6 (0-2) % Neut # (Auto) 7900 H (6012-5161) /uL Lymph # (Auto) 1600 (5381-7775) /uL [place] # (Auto) 1000 H (0-900) /uL Eos # (Auto) 100 (0-450) /uL Baso # (Auto) 100 (0-100) /uL Sodium 139 (137-145) mmol/L Potassium 4.1 (3.4-5.1) mmol/L Chloride 101 (98-107) mmol/L Carbon Dioxide 25 (22-32) mmol/L BUN 18 H (7-17) mg/dL Creatinine 0.90 (0.52-1.04) mg/dL Estimated GFR > 60.0 (>60) mL/min BUN/Creatinine Ratio 20.0 (6-22) Glucose 159 H (80-110) mg/dL Calcium 9.4 (8.4-10.2) mg/dL Total Bilirubin 0.4 (0.2-1.3) mg/dL AST 33 (14-36) IU/L ALT 21 (<35) IU/L Alkaline Phosphatase 72 (38-126) U/L NT-Pro-B Natriuret Pep 66 (<125) pg/mL Total Protein 8.7 H (6.3-8.2) g/dL Albumin 4.4 (3.5-5.0) g/dL Globulin 4.3 H (1.7-4.1) g/dL Albumin/Globulin Ratio 1.0 (1.0-2.8) Procalcitonin (<0.5) ng/mL Chlamy pneumoniae PCR (Not Detect) Adenovirus (PCR) (Not Detect) B.parapertussis DNA PCR (Not Detect) Coronavirus OC43 (PCR) (Not Detect) Coronavirus HKU1 (PCR) (Not Detect) Coronavirus 229E (PCR) (Not Detect) Coronavirus NL63 (PCR) (Not Detect) Human Metapneumovir PCR (Not Detect) Influenza Type A (PCR) (Not Detect) Influenza Type B (PCR) (Not Detect) M. pneumoniae (PCR) (Not Detect) Parainfluenza 1 (PCR) (Not Detect) Parainfluenza 2 (PCR) (Not Detect) Parainfluenza 3 (PCR) (Not Detect) Parainfluenza 4 (PCR) (Not Detect) RSV (PCR) (Not Detect) Entero/Rhino (PCR) (Not Detect) 06/05/19 06/05/19 Range/Units 16:24 16:28 WBC (4.5-11.0) X10^3/uL RBC (4.0-5.2) X10^6/uL Hgb (12.0-16.0) g/dL Hct (36-46) % MCV (80-100) fL MCH (26-34) PG MCHC (30-36) % RDW (11.6-14.8) % Plt Count (150-400) X10^3/uL Neut % (Auto) (50-75) % Lymph % (Auto) (25-40) % [place] % (Auto) (3-14) % Eos % (Auto) (2-4) % Baso % (Auto) (0-2) % Neut # (Auto) (1414-8382) /uL Lymph # (Auto) (7936-4556) /uL [place] # (Auto) (0-900) /uL Eos # (Auto) (0-450) /uL Baso # (Auto) (0-100) /uL Sodium (137-145) mmol/L Potassium (3.4-5.1) mmol/L Chloride (98-107) mmol/L Carbon Dioxide (22-32) mmol/L BUN (7-17) mg/dL Creatinine (0.52-1.04) mg/dL Estimated GFR (>60) mL/min BUN/Creatinine Ratio (6-22) Glucose (80-110) mg/dL Calcium (8.4-10.2) mg/dL Total Bilirubin (0.2-1.3) mg/dL AST (14-36) IU/L ALT (<35) IU/L Alkaline Phosphatase (38-126) U/L NT-Pro-B Natriuret Pep (<125) pg/mL Total Protein (6.3-8.2) g/dL Albumin (3.5-5.0) g/dL Globulin (1.7-4.1) g/dL Albumin/Globulin Ratio (1.0-2.8) Procalcitonin < 0.05 (<0.5) ng/mL Chlamy pneumoniae PCR Not detected (Not Detect) Adenovirus (PCR) Not detected (Not Detect) B.parapertussis DNA PCR Not detected (Not Detect) Coronavirus OC43 (PCR) Not detected (Not Detect) Coronavirus HKU1 (PCR) Not detected (Not Detect) Coronavirus 229E (PCR) Not detected (Not Detect) Coronavirus NL63 (PCR) Not detected (Not Detect) Human Metapneumovir PCR Not detected (Not Detect) Influenza Type A (PCR) Not detected (Not Detect) Influenza Type B (PCR) Not detected (Not Detect) M. pneumoniae (PCR) Not detected (Not Detect) Parainfluenza 1 (PCR) Not detected (Not Detect) Parainfluenza 2 (PCR) Not detected (Not Detect) Parainfluenza 3 (PCR) Not detected (Not Detect) Parainfluenza 4 (PCR) Not detected (Not Detect) RSV (PCR) Not detected (Not Detect) Entero/Rhino (PCR) Not detected (Not Detect) Urine Dip Bedside Urine Glucose Negative Bedside Urine Bilirubin - Negative Bedside Urine Ketone - Negative Urine Specific [place] 1.010 Bedside Urine Occult Blood +/- Bedside Urine pH 6.0 Bedside Urine Protein - Negative Bedside Urine Urobilinogen - Negative Bedside Urine Nitrite - Negative Bedside Urine Leukocytes ++ 125 Esterase Discharge Plan Departure Patient Disposition: Home Clinical Impression: Breath shortness, Wheezing Discharge Date/Time: 06/05/19 19:00 Instructions: DI for Shortness of Breath Activity Restrictions/Additional Instructions: As discussed, is very important that he follow up with primary care provider as well as Infectious Disease. The admitting physician states that you do not meet admission criteria this point in time and that is mostly likely that you have a bronchiectasis. Please follow-up with primary care provider the next few days. I have sent a burst of prednisone to [facility] As discussed please come back to emergency department for any acute concerns such as fever, significant shortness of breath etcetera Prescriptions: New prednisone 20 mg tablet 40 mg PO DAILY Qty: 10 RF: 0 No Action budesonide [Pulmicort] 0.5 MG/2 ML suspension for nebulization 0.5 mg INH BIDP Qty: 0 RF: 0 zolpidem [Ambien] 10 MG tablet 10 mg PO HS Qty: 0 RF: 0 docusate sodium 250 MG capsule 500 mg PO BEDTIME Qty: 0 RF: 0 levothyroxine [Synthroid] 75 MCG tablet 75 mcg PO DAILY Qty: 30 RF: 0 clonidine HCl [Catapres] 0.1 MG tablet 0.1 mg PO BID Qty: 60 RF: 0 furosemide [Lasix] 20 MG tablet 20 mg PO DAILY Qty: 0 RF: 0 Altoprev 40 MG tablet extended release 24 hr 80 mg PO BEDTIME Qty: 30 RF: 0 Mucinex 1,200 MG tablet extended release 12hr 1,200 mg PO Q12H Qty: 0 RF: 0 polyethylene glycol 3350 [Miralax] 119 GM powder 17 gm PO DAILY PRN (Reason: Constipation) Qty: 0 RF: 0 prednisone 10 mg tablet 5 mg PO [facility]CC RF: 0 Privigen 10 % solution 45 gram IV Q3W RF: 0 ferrous sulfate 325 mg (65 mg iron) tablet 325 mg PO DAILY RF: 0 losartan 50 mg tablet 50 mg PO DAILY RF: 0 spironolactone 50 mg tablet 50 mg PO DAILY RF: 0 ondansetron HCl [Zofran] 4 mg tablet 4 mg PO Q8H RF: 0 nortriptyline 25 mg capsule 25 mg PO QPM RF: 0 tramadol 50 mg tablet 50 mg PO TID PRN (Reason: pain) RF: 0 tizanidine 4 mg capsule 4 mg PO TID PRN (Reason: Spasms) RF: 0 insulin degludec 200 unit/mL (3 mL) insulin pen 40 unit SUBCUT QAM RF: 0 Humalog U-100 Insulin 100 unit/mL cartridge See Rx Instructions subcut .COMPLEX Qty: 0 RF: 0 metformin 1,000 mg tablet 1,000 mg PO BID RF: 0 fluticasone propion-salmeterol [Advair Diskus] 500-50 mcg/dose blister with device 1 inhalation INHALATION BID RF: 0 aspirin 81 mg tablet,delayed release (DR/EC) 81 mg PO DAILY RF: 0 cholecalciferol (vitamin D3) 2,000 unit tablet 2,000 unit PO DAILY RF: 0 cetirizine 10 mg tablet 10 mg PO DAILY PRN (Reason: Allergy Symptoms) RF: 0 albuterol sulfate 90 mcg/actuation HFA aerosol inhaler 2 puff INHALATION Q4-6H PRN (Reason: Shortness Of Breath) RF: 0 ipratropium-albuterol 0.5 mg-3 mg(2.5 mg base)/3 mL solution for nebulization 3 ml INHALATION Q4-6H PRN (Reason: Shortness Of Breath) RF: 0 montelukast 10 mg tablet 10 mg PO BEDTIME RF: 0 fluticasone propionate [Flonase Allergy Relief] 50 mcg/actuation spray,suspension 1 spray NASAL BID PRN (Reason: Allergy Symptoms) RF: 0 amoxicillin 500 mg Capsule 500 mg PO Q8H RF: 0 nystatin 100,000 unit/mL Suspension 1 ml PO PRN PRN (Reason: as directed) RF: 0 sodium chloride 3 % Solution For Nebulization 3 ml INHALATION DIRECTED RF: 0 lansoprazole 30 mg Capsule,Delayed Release(Dr/Ec) 30 mg PO BID RF: 0 pramipexole 0.25 mg Tablet 0.5 mg PO BEDTIME RF: 0 gabapentin 600 mg Tablet 600 mg PO TID RF: 0 Referrals: Murphy Mohan MD [Primary Care Provider] -
[2019-06-05] MEDS: ALBUTEROL/IPRATROPIUM 3 ML AMPUL INH ×2 (15:44→17:07)
[2019-06-05 15:45] VITALS: PULSE 85; RESP 18; O2SAT 94
[2019-06-05 16:00] LABS: NT-proBNP (BNP-Adult 18+) 66 pg/mL (<125)
[2019-06-05 16:30] VITALS: BP 130/59; PULSE 95; RESP 27; O2SAT 95
[2019-06-05 16:32] LABS: Add Manual Diff / Slide Review NO; Basophils Absolute Auto 100 /uL (0-100); Basophils Percent Auto 0.6 % (0-2); Eosinophils Absolute Auto 100 /uL (0-450); Eosinophils Percent Auto 1.1 % (2-4); Hematocrit 36.3 % (36-46); Hemoglobin 11.9 g/dL (12.0-16.0); Lymphocytes Absolute Auto 1600 /uL (1100-4500); Mean Corpuscular HGB Conc 32.8 % (30-36); Mean Corpuscular Hemoglobin 27.6 PG (26-34); Mean Corpuscular Volume 84.2 fL (80-100); Monocytes Absolute Auto 1000 /uL (0-900); Monocytes Percent Auto 9.4 % (3-14); Neutrophils Absolute Auto 7900 /uL (1500-7000); Neutrophils Percent Auto 73.9 % (50-75); Platelet Count 471 X10^3/uL (150-400); Red Blood Cell Count 4.31 X10^6/uL (4.0-5.2); Red Cell Distribution Width 18.5 % (11.6-14.8); White Blood Cell Count 10.7 X10^3/uL (4.5-11.0)
[2019-06-05 16:50] LABS: Alanine Aminotransferase 21 IU/L (<35); Albumin 4.4 g/dL (3.5-5.0); Alkaline Phosphatase 72 U/L (38-126); Aspartate Aminotransferase 33 IU/L (14-36); Bilirubin Total 0.4 mg/dL (0.2-1.3); Blood Urea Nitrogen 18 mg/dL (7-17); Calcium 9.4 mg/dL (8.4-10.2); Carbon Dioxide 25 mmol/L (22-32); Chloride 101 mmol/L (98-107); Estimated Glomerular Filt Rate > 60.0 mL/min (>60); Globulin 4.3 g/dL (1.7-4.1); Glucose 159 mg/dL (80-110); HEMOLYSIS 23 (0-50); Potassium 4.1 mmol/L (3.4-5.1); Sodium 139 mmol/L (137-145); Total Protein 8.7 g/dL (6.3-8.2)
[2019-06-05 17:02] VITALS: BP 130/59; PULSE 90
[2019-06-05 17:07] VITALS: PULSE 88; RESP 20; O2SAT 93
[2019-06-05 17:10] LABS: Procalcitonin < 0.05 ng/mL (<0.5)
[2019-06-05] MEDS: MEROPENEM 1 GM/50 ML PIGGYBACK IV (17:29)
[2019-06-05 18:01] LABS: Adenovirus Not Detected (Not Detect); Bordetella pertussis Not Detected (Not Detect); Chlamydophila pneumoniae Not Detected (Not Detect); Coronavirus 229E Not Detected (Not Detect); Coronavirus HKU1 Not Detected (Not Detect); Coronavirus NL 63 Not Detected (Not Detect); Coronavirus OC43 Not Detected (Not Detect); Human Metapneumovirus Not Detected (Not Detect); Human Rhinovirus/Enterovirus Not Detected (Not Detect); Influenza A Not Detected (Not Detect); Influenza B Not Detected (Not Detect); Mycoplasma pneumoniae Not Detected (Not Detect); Parainfluenza Virus 1 Not Detected (Not Detect); Parainfluenza Virus 2 Not Detected (Not Detect); Parainfluenza Virus 3 Not Detected (Not Detect); Parainfluenza Virus 4 Not Detected (Not Detect); Respiratory Syncytial Virus Not Detected (Not Detect)
--- NOTE | 2019-06-05 18:29 | P.CONS_ITS ---
History of Present Illness Consult details Date Patient Seen: 06/05/19 Time Patient Seen: 18:29 Chief complaint: wheezing, short of breath Reason for consult: dyspnea on exertion, productive cough. Requesting provider: Joanne Torres Narrative: Radha Zavaleta is a 69-year-old female with past medical history of CVID (last immunoglobulin yesterday), chronic bronchiectasis, asthma, diabetes, hypertension, hyperlipidemia and recently treated pseudomonal pneumonia/colonization in the setting of bronchiectasis (treated with inhaled tobramycin, with negative sputums reported) who presented with 2 days of worsening dyspnea on exertion and productive cough. She thinks there may have been blood with 1 cough, but it was unclear and this did not recur. She denies any fevers chills, and she denies any sick contacts. She has not had any nasal congestion runny nose. She states her dyspnea on exertion has been progres sively worsening over the past year so. She does monitor her peak flows at home. Usually her peak flows about 300, but the last couple days it has been around 240. She does report wheezing with exertion as well. Patient follows with infectious disease specialist in [facility] and has seen a oceanic sciences professor in the past, but has an appointment next month with a new oceanic sciences professor. The patient reports that she sent a sputum culture to [facility] yesterday, for review by her infectious disease provider. In the emergency room, patient was mildly hypertensive, intermittently tachypneic, but never hypoxic on room air. Before I evaluated her she ambulated to the bathroom and back, she did not desaturate. The emergency room contacted her infectious disease specialist, who given her history of Pseudomonas recommended the patient be started on meropenem for possible pneumonia. Further evaluation included a viral PCR panel which was negative, white blood cell count of 10.7, platelets 471, and negative procalcitonin. Her chest x-ray actually appears improved compared to prior film from last month, but was read as a left basilar infiltrate versus atelectasis. She was given 1 dose of meropenem, two duoneb treatments, and medicine was asked to evaluate the patient for admission for continued meropenem per her infectious disease physician recommendations. However, the patient appeared well, and without fevers, leukocytosis, and a negative procalcitonin do not suspect active pneumonia at this time and given decrease in her peak flows this likely represents a bronchiectasis/asthma flare. Meds Home Medications and Allergies Home Medications Medication Instructions Recorded Confirmed Type budesonide [Pulmicort] 0.5 mg INH BIDP #0 05/21/12 06/05/19 History docusate sodium 500 mg PO BEDTIME #0 05/21/12 06/05/19 History zolpidem [Ambien] 10 mg PO HS #0 05/21/12 06/05/19 History Altoprev 80 mg PO BEDTIME #30 tab 06/06/17 06/05/19 History Mucinex 1,200 mg PO Q12H #0 06/06/17 06/05/19 History clonidine HCl [Catapres] 0.1 mg PO BID #60 tab 06/06/17 06/05/19 History furosemide [Lasix] 20 mg PO DAILY #0 06/06/17 06/05/19 History levothyroxine [Synthroid] 75 mcg PO DAILY #30 tab 06/06/17 06/05/19 History polyethylene glycol 3350 [Miralax] 17 gm PO DAILY PRN #0 06/06/17 06/05/19 History albuterol sulfate 90 mcg/actuation 2 puff INHALATION Q4-6H PRN 05/29/19 06/05/19 History aerosol inhaler aspirin 81 mg tablet,delayed 81 mg PO DAILY 05/29/19 06/05/19 History release cetirizine 10 mg tablet 10 mg PO DAILY PRN tab 05/29/19 06/05/19 History cholecalciferol (vitamin D3) 50 2,000 unit PO DAILY 05/29/19 06/05/19 History mcg (2,000 unit) tablet ferrous sulfate 325 mg (65 mg 325 mg PO DAILY 05/29/19 06/05/19 History iron) tablet fluticasone 500 mcg-salmeterol 50 1 inhalation INHALATION BID 05/29/19 06/05/19 History mcg/dose blistr powdr for inhalation immun glob G(IgG)-pro-IgA 0-50 10 45 gram IV Q3W ml 05/29/19 06/05/19 History %-pro-IgA 0 to 50 mcg/mL intravenous solution insulin degludec 200 unit/mL (3 40 unit SUBCUT QAM ml 05/29/19 06/05/19 History mL) subcutaneous pen insulin lispro 100 unit/mL See Rx Instructions SUBCUT 05/29/19 06/05/19 History subcutaneous cartridge .COMPLEX #0 ipratropium 0.5 mg-albuterol 3 mg 3 ml INHALATION Q4-6H PRN 05/29/19 06/05/19 History (2.5 mg base)/3 mL nebulization soln losartan 50 mg tablet 50 mg PO DAILY 05/29/19 06/05/19 History metformin 1,000 mg tablet 1,000 mg PO BID 05/29/19 06/05/19 History montelukast 10 mg tablet 10 mg PO BEDTIME 05/29/19 06/05/19 History nortriptyline 25 mg capsule 25 mg PO QPM 05/29/19 06/05/19 History ondansetron HCl 4 mg tablet 4 mg PO Q8H 05/29/19 06/05/19 History prednisone 10 mg tablet 5 mg PO [facility] tab 05/29/19 06/05/19 History spironolactone 50 mg tablet 50 mg PO DAILY 05/29/19 06/05/19 History tizanidine 4 mg capsule 4 mg PO TID PRN 05/29/19 06/05/19 History tramadol 50 mg tablet 50 mg PO TID PRN 05/29/19 06/05/19 History fluticasone propionate 50 1 spray NASAL BID PRN 05/31/19 06/05/19 History mcg/actuation nasal spray,suspension amoxicillin 500 mg PO Q8H 06/05/19 06/05/19 History gabapentin 600 mg PO TID 06/05/19 06/05/19 History lansoprazole 30 mg PO BID 06/05/19 06/05/19 History nystatin 1 ml PO PRN PRN 06/05/19 06/05/19 History pramipexole 0.5 mg PO BEDTIME 06/05/19 06/05/19 History prednisone 40 mg PO DAILY #10 tab 06/05/19 Rx sodium chloride 3 ml INHALATION DIRECTED 06/05/19 06/05/19 History Allergies Allergy/AdvReac Type Severity Reaction Status Date / Time hydroxychloroquine Allergy Unknown Verified 06/05/19 15:12 [HYDROXYCHLOROQUINE] cefepime AdvReac Severe pruritis Verified 06/05/19 15:12 Review of Systems Review of Systems Narrative: All other systems reviewed with the patient and are negative unless otherwise stated. Exam Vital Signs (past 8 hours): - 06/05/19 15:12 06/05/19 15:45 06/05/19 16:30 Temperature 97.9 F Pulse Rate 105 H 85 95 H Respiratory Rate 22 18 27 H Blood Pressure 174/77 H Blood Pressure [Right Arm] 130/59 L Pulse Oximetry 95 94 95 06/05/19 17:02 06/05/19 17:07 Temperature Pulse Rate 90 88 Respiratory Rate 20 Blood Pressure Blood Pressure [Right Arm] 130/59 L Pulse Oximetry 93 Oxygen Delivery Method Room Air Narrative Exam Narrative: GENERAL APPEARANCE: Well developed, well nourished, obese female in no acute distress. SKIN: Inspection of the skin reveals no rashes, ulcerations or petechiae. HEENT: The sclerae were anicteric and conjunctivae were pink and moist. Extraocular movements were intact and pupils were equal, round with normal accommodation. External inspection of the ears and nose showed no scars, lesions, or masses. Lips, teeth, and gums showed normal mucosa. The oral mucosa, hard and soft palate, tongue and posterior pharynx were unremarkable. NECK: Supple and symmetric. There was no thyroid enlargement, and no tenderness, or masses were felt. CHEST: Normal AP diameter and normal contour without any kyphoscoliosis. LUNGS: Auscultation of the lungs revealed no wheezing, minimal bibasilar crackles. CARDIOVASCULAR: There was a regular rate and rhythm without any murmurs, gal lops, rubs. Peripheral pulses were 2+ and symmetric. ABDOMEN: Soft and nontender with normal bowel sounds. No ascites was noted. MUSCULOSKELETAL: There was no tenderness or effusions noted. Muscle strength and tone were normal. EXTREMITIES: No cyanosis, clubbing or edema. NEUROLOGIC: Alert and oriented x 3. Normal affect. Gait was normal. Strength is +5/5 in the Upper Extremities and Lower Extremities Bilaterally. Sensation to touch was normal. Objective Labs Result Diagrams: 06/05/19 16:24 06/05/19 16:24 Labs: Laboratory Results - last 24 hr 06/05/19 06/05/19 06/05/19 15:30 16:24 16:24 WBC 10.7 RBC 4.31 Hgb 11.9 L Hct 36.3 MCV 84.2 MCH 27.6 MCHC 32.8 RDW 18.5 H Plt Count 471 H Neut % (Auto) 73.9 Lymph % (Auto) 15.0 L Garrett % (Auto) 9.4 Eos % (Auto) 1.1 L Baso % (Auto) 0.6 Neut # (Auto) 7900 H Lymph # (Auto) 1600 Garrett # (Auto) 1000 H Eos # (Auto) 100 Baso # (Auto) 100 Sodium 139 Potassium 4.1 Chloride 101 Carbon Dioxide 25 BUN 18 H Creatinine 0.90 Estimated GFR > 60.0 BUN/Creatinine Ratio 20.0 Glucose 159 H Calcium 9.4 Total Bilirubin 0.4 AST 33 ALT 21 Alkaline Phosphatase 72 NT-Pro-B Natriuret Pep 66 Total Protein 8.7 H Albumin 4.4 Globulin 4.3 H Albumin/Globulin Ratio 1.0 Procalcitonin Chlamy pneumoniae PCR Adenovirus (PCR) B.parapertussis DNA PCR Coronavirus OC43 (PCR) Coronavirus HKU1 (PCR) Coronavirus 229E (PCR) Coronavirus NL63 (PCR) Human Metapneumovir PCR Influenza Type A (PCR) Influenza Type B (PCR) M. pneumoniae (PCR) Parainfluenza 1 (PCR) Parainfluenza 2 (PCR) Parainfluenza 3 (PCR) Parainfluenza 4 (PCR) RSV (PCR) Entero/Rhino (PCR) 06/05/19 06/05/19 16:24 16:28 WBC RBC Hgb Hct MCV MCH MCHC RDW Plt Count Neut % (Auto) Lymph % (Auto) Garrett % (Auto) Eos % (Auto) Baso % (Auto) Neut # (Auto) Lymph # (Auto) Garrett # (Auto) Eos # (Auto) Baso # (Auto) Sodium Potassium Chloride Carbon Dioxide BUN Creatinine Estimated GFR BUN/Creatinine Ratio Glucose Calcium Total Bilirubin AST ALT Alkaline Phosphatase NT-Pro-B Natriuret Pep Total Protein Albumin Globulin Albumin/Globulin Ratio Procalcitonin < 0.05 Chlamy pneumoniae PCR Not detected Adenovirus (PCR) Not detected B.parapertussis DNA PCR Not detected Coronavirus OC43 (PCR) Not detected Coronavirus HKU1 (PCR) Not detected Coronavirus 229E (PCR) Not detected Coronavirus NL63 (PCR) Not detected Human Metapneumovir PCR Not detected Influenza Type A (PCR) Not detected Influenza Type B (PCR) Not detected M. pneumoniae (PCR) Not detected Parainfluenza 1 (PCR) Not detected Parainfluenza 2 (PCR) Not detected Parainfluenza 3 (PCR) Not detected Parainfluenza 4 (PCR) Not detected RSV (PCR) Not detected Entero/Rhino (PCR) Not detected Assessment & Plan Assessment & Plan narrative: Radha Zavaleta is a 69-year-old female with past medical history of CVID, chronic bronchiectasis, asthma, diabetes, hypertension, hyperlipidemia and recently treated pseudomonal pneumonia in the setting of bronchiectasis (treated with inhaled tobramycin, with negative sputums reported) who presented with 2 days of worsening dyspnea on exertion and productive cough. Medicine was asked to evaluate this patient for admission given recommendations from her outpatient infectious disease specialist. At this time I believe her symptoms are most likely consistent with a bronchiectasis or asthma flare. Given that her chest x-ray appears improved compared to the prior film last month, her procalcitonin is negative, viral PCR is negative, she has no leukocytosis, and no fevers or chills a pneumonia is highly unlikely at this time. She reports negative outpatient sputums recently after treatment with inhaled tobramycin for her Pseudomonas, and she did give a sputum culture to her infectious disease provider at [facility]. At this time she does not meet inpatient admission criteria for bronchiectasis or asthma flare based on her symptoms or peak flow values and given all of the information collected at this time pneumonia. She is not hypoxic, and patient does desire to go home. I recommend that she be given a short steroid course, 40 mg x 5 days, to treat a bronchiectasis flare. I advised the patient to continue to monitor her peak flows at home while being treated, and that if her sputum culture does come back positive and her infectious disease provider recommends treatment then she may return. Further if she develops any fever or worsening symptoms she should also return for further evaluation and possible admission for meropenem. She plans to see a new oceanic sciences professor next month.
[2019-06-05 18:59] VITALS: BP 117/58; PULSE 91; O2SAT 96
== END 2019-06-05 19:00 | disposition home or self-care (01) ==
PROVIDERS: Emergency Provider Nurse Practitioner Family; Family Provider Internal Medicine Infectious Disease; PCP Student in an Organized Health Care Education/Training Program; Referring Provider Student in an Organized Health Care Education/Training Program
DX: R06.02 Shortness of breath (principal); R06.2 Wheezing
CPT/HCPCS: 36415; 71046; 80053; 81003; 83880; 84145; 85025; 87633; 93005; 94640; 96365; 99284; 99285

== ENCOUNTER → 2019-06-25 15:09 | Outpatient (ROUT) | payer OTHER, SELFPAY ==
[2019-06-25 16:34] LABS: Add Manual Diff / Slide Review NO; Basophils Absolute Auto 0 /uL (0-100); Basophils Percent Auto 0.7 % (0-2); Eosinophils Absolute Auto 400 /uL (0-450); Hematocrit 45.9 % (36-46); Hemoglobin 14.5 g/dL (12.0-16.0); Lymphocytes Absolute Auto 1700 /uL (1100-4500); Lymphocytes Percent Auto 23.8 % (25-40); Mean Corpuscular HGB Conc 31.7 % (30-36); Mean Corpuscular Hemoglobin 27.2 PG (26-34); Mean Corpuscular Volume 85.9 fL (80-100); Monocytes Absolute Auto 700 /uL (0-900); Neutrophils Absolute Auto 4500 /uL (1500-7000); Neutrophils Percent Auto 61.5 % (50-75); Platelet Count 282 X10^3/uL (150-400); Red Blood Cell Count 5.34 X10^6/uL (4.0-5.2); Red Cell Distribution Width 18.5 % (11.6-14.8); White Blood Cell Count 7.3 X10^3/uL (4.5-11.0)
[2019-06-25 16:38] LABS: Alanine Aminotransferase 22 IU/L (<35); Albumin 3.8 g/dL (3.5-5.0); Albumin Globulin Ratio 1.2 (1.0-2.8); Alkaline Phosphatase 66 U/L (38-126); BUN Creatinine Ratio 24.4 (6-22); Bilirubin Total 0.7 mg/dL (0.2-1.3); Blood Urea Nitrogen 20 mg/dL (7-17); Calcium 10.1 mg/dL (8.4-10.2); Carbon Dioxide 26 mmol/L (22-32); Chloride 104 mmol/L (98-107); Estimated Glomerular Filt Rate > 60.0 mL/min (>60); Globulin 3.1 g/dL (1.7-4.1); Glucose 158 mg/dL (80-110); Sodium 139 mmol/L (137-145); Total Protein 6.9 g/dL (6.3-8.2)
[2019-06-25 16:42] LABS: HEMOLYSIS 79 (0-50)
[2019-06-25 16:44] LABS: Aspartate Aminotransferase 39 IU/L (14-36); Potassium 5.3 mmol/L (3.4-5.1)
[2019-06-26 14:45] LABS: Immunoglobulin G, Quantitative 999 mg/dL (700-1600)
== END ==
PROVIDERS: Family Provider Internal Medicine Infectious Disease; PCP Student in an Organized Health Care Education/Training Program; Visit Provider Allergy & Immunology
DX: E83.9 Disorder of mineral metabolism, unspecified (principal); E80.3 Defects of catalase and peroxidase
CPT/HCPCS: 80053; 82784; 85025

== ENCOUNTER → 2019-08-19 12:09 | Outpatient (CLI) | payer OTHER, SELFPAY ==
[2019-08-19 13:59] LABS: BUN Creatinine Ratio 26.3 (6-22); Blood Urea Nitrogen 25 mg/dL (7-17); Calcium 10.2 mg/dL (8.4-10.2); Carbon Dioxide 27 mmol/L (22-32); Chloride 101 mmol/L (98-107); Glucose 126 mg/dL (80-110); HEMOLYSIS < 15 (0-50); Potassium 4.9 mmol/L (3.4-5.1); Sodium 137 mmol/L (137-145)
== END ==
PROVIDERS: Family Provider Internal Medicine Infectious Disease; PCP Student in an Organized Health Care Education/Training Program; Referring Provider Student in an Organized Health Care Education/Training Program; Visit Provider Student in an Organized Health Care Education/Training Program
DX: Z79.899 Other long term (current) drug therapy (principal)
CPT/HCPCS: 36415; 80048

== ENCOUNTER → 2019-08-26 13:30 | Outpatient (CLI) | payer OTHER, SELFPAY ==
[2019-08-28 06:42] LABS: COVID19 Sendout Not Detected (Not Detected)
== END ==
PROVIDERS: Family Provider Internal Medicine Infectious Disease; PCP Student in an Organized Health Care Education/Training Program; Visit Provider Physician Assistant
DX: D83.9 Common variable immunodeficiency, unspecified (principal)
CPT/HCPCS: 87635

== ENCOUNTER → 2019-09-30 11:13 | Outpatient (CLI) | payer OTHER, SELFPAY ==
[2019-10-01 09:40] LABS: COVID19 Sendout Not Detected (Not Detect)
== END ==
PROVIDERS: Family Provider Internal Medicine Infectious Disease; PCP Student in an Organized Health Care Education/Training Program; Visit Provider Registered Nurse
DX: Z01.812 Encounter for preprocedural laboratory examination (principal)
CPT/HCPCS: 87635

== ENCOUNTER → 2019-10-03 10:50 | Outpatient (CLI) | payer OTHER, SELFPAY ==
--- NOTE | 2019-10-08 09:42 | PM.PFT.1 ---
Pulmonary Function Test Referral & Results Date Patient Seen: 10/03/19 Requesting provider: Symone Maharaj Results: The spirometry demonstrates an FVC of 2.04 L which is 72% of predicted. The FEV1 was measured at 1.45 L which is 71% of predicted. The FEV1/FVC ratio was 71 which is 97% of predicted. Following the administration of bronchodilator there was no appreciable change. Lung volumes show an SVC of 1.98 L which is 64% of predicted. The diffusing capacity was measured at 13.72 which is 72% of predicted. No hemoglobin value was provided, so no correction for potential anemia could be made, if appropriate. The maximum voluntary ventilation was reduced Interpretation: This study demonstrates moderate obstructive lung disease based on reduction FEV1. There is no evidence of benefit following bronchodilator There is also moderate reduction in lung volumes suggesting restrictive lung disease There is also a minor reduction in diffusing capacity suggesting some element of disease at the capillary alveolar level Clinical correlation suggested
== END ==
PROVIDERS: Family Provider Internal Medicine Infectious Disease; PCP Student in an Organized Health Care Education/Training Program; Referring Provider Specialist; Visit Provider Specialist
DX: J47.0 Bronchiectasis with acute lower respiratory infection (principal); J45.50 Severe persistent asthma, uncomplicated; J98.8 Other specified respiratory disorders
CPT/HCPCS: 94060; 94726; 94729

== ENCOUNTER → 2020-01-02 13:14 | Outpatient (CLI) | payer OTHER, SELFPAY ==
[2020-01-02 14:26] LABS: Hemoglobin A1C% w Est Avg Glu 7.8 % (4.0-6.0)
[2020-01-02 15:27] LABS: Creatinine Urine Random 23.9 mg/dL
[2020-01-02 15:35] LABS: Microalbumin Urine Random < 0.6 mg/dL (0-1.6)
== END ==
PROVIDERS: Family Provider Internal Medicine Infectious Disease; PCP Student in an Organized Health Care Education/Training Program; Referring Provider Student in an Organized Health Care Education/Training Program; Visit Provider Student in an Organized Health Care Education/Training Program
DX: E11.9 Type 2 diabetes mellitus without complications (principal)
CPT/HCPCS: 36415; 82043; 82570; 83036

== ENCOUNTER 2020-01-20 14:10 | Inpatient (IN) | payer OTHER, SELFPAY ==
[2020-01-20] VITALS (16 sets, daily range): BP systolic 98–136; BP diastolic 51–71; PULSE 87–107; RESP 18–35; TEMP 37–37.6; O2SAT 92–97; BMI 48.8
--- NOTE | 2020-01-20 14:22 | DI.RAD.S_ITS ---
PROCEDURE: XR CHEST 1V INDICATIONS: cough and SBO TECHNIQUE: One view of the chest was acquired. COMPARISON: [facility], CR, XR CHEST 2V, 06/05/2019, 15:22. FINDINGS: Surgical changes and devices: None. Lungs and pleura: Patchy left basilar opacities without focal consolidation. Eventration of the right hemidiaphragm. No pleural effusions or pneumothorax. Mediastinum: Mediastinal contours appear stable. Heart size is normal. Bones and chest wall: No suspicious bony lesions. Overlying soft tissues appear unremarkable. IMPRESSION: Patchy left basilar opacities without focal consolidation. Findings may represent atelectasis and/or concurrent airspace disease. Recommend follow up chest radiograph 4-6 weeks after treatment to document resolution of findings and/or return to baseline examination. Dictated by: Aneesh Antonio M.D. on 01/20/2020 at 14:51 Approved by: Aneesh Antonio M.D. on 01/20/2020 at 14:52
[2020-01-20 14:30] LABS: Add Manual Diff / Slide Review YES; Hematocrit 42.3 % (36-46); Hemoglobin 13.9 g/dL (12.0-16.0); Mean Corpuscular HGB Conc 32.9 % (30-36); Mean Corpuscular Hemoglobin 29.3 PG (26-34); Mean Corpuscular Volume 89.2 fL (80-100); Platelet Count 351 X10^3/uL (150-400); Red Blood Cell Count 4.74 X10^6/uL (4.0-5.2); Red Cell Distribution Width 15.8 % (11.6-14.8); White Blood Cell Count 28.5 X10^3/uL (4.5-11.0)
[2020-01-20 14:40] LABS: Alanine Aminotransferase 27 IU/L (<35); Albumin 4.2 g/dL (3.5-5.0); Albumin Globulin Ratio 1.2 (1.0-2.8); BUN Creatinine Ratio 21.4 (6-22); Bilirubin Total 0.8 mg/dL (0.2-1.3); Blood Urea Nitrogen 30 mg/dL (7-17); Carbon Dioxide 26 mmol/L (22-32); Chloride 99 mmol/L (98-107); Estimated Glomerular Filt Rate 37.1 mL/min (>60); Globulin 3.6 g/dL (1.7-4.1); Glucose 150 mg/dL (80-110); Lipase 82 U/L (23-300); Sodium 133 mmol/L (137-145); Total Protein 7.8 g/dL (6.3-8.2)
[2020-01-20 14:41] LABS: COVID19 -Nasal RAPID Negative (Negative)
[2020-01-20 14:42] LABS: Aspartate Aminotransferase 41 IU/L (14-36); HEMOLYSIS 76 (0-50); Lactate (Lactic Acid) 1.9 mmol/L (0.7-2.1); Potassium 5.6 mmol/L (3.4-5.1)
[2020-01-20 14:43] LABS: Alkaline Phosphatase 64 U/L (38-126)
[2020-01-20 14:45] LABS: Neutrophils Absolute Manual 25935 /uL (3000-5900); RBC Morphology Normal Morphology; Total Cells Counted 100
[2020-01-20] MEDS: SODIUM CHLORIDE 0.9% 1,000 ML 1000 ML IV (14:49)
--- NOTE | 2020-01-20 15:21 | ED.GENADULT ---
HPI - General Adult General Chief complaint: Weakness Stated complaint: weakness Time Seen by Provider: 01/20/20 14:19 Source: patient and EMS Mode of arrival: EMS Limitations: no limitations History of Present Illness HPI narrative: 69-year-old female brought in by EMS for evaluation of weakness in fevers shortness of breath. Patient is approximately 7 days into a course of Bactrim. This is prescribed by her Infectious Disease doctor secondary to a colonization in her lungs. The Bactrim was started because she had an increase in productive cough. She states that a couple days ago she thought that maybe the sputum was worsening although she did not call her doctor. She woke up this morning about 430 in the morning and became very weak. She tried to get out of bed and slid onto the floor. She did not hit her head. There was no injuries from this. Her was unable to get her off of the floor. The patient slept on the floor for short period of time. When she had to go use the restroom patient's could not lift her up in the patient cannot stand up so that is when they called EMS. After the patient's to and she was able to stand on her own and walk. She did have a fever this morning of 100.3. She states that overall she feels worse. No nausea or vomiting. Related Data Home Medications Medication Instructions Recorded Confirmed budesonide [Pulmicort] 0.5 mg INH BIDP #0 05/21/12 01/20/20 docusate sodium 500 mg PO BEDTIME #0 05/21/12 01/20/20 Altoprev 80 mg PO BEDTIME #30 tab 06/06/17 01/20/20 Mucinex 1,200 mg PO Q12H #0 06/06/17 01/20/20 polyethylene glycol 3350 [Miralax] 17 gm PO DAILY PRN #0 06/06/17 01/20/20 albuterol sulfate 90 mcg/actuation 2 puff INHALATION Q4-6H PRN 05/29/19 01/20/20 aerosol inhaler aspirin 81 mg tablet,delayed 81 mg PO DAILY 05/29/19 01/20/20 release cholecalciferol (vitamin D3) 50 2,000 unit PO DAILY 05/29/19 01/20/20 mcg (2,000 unit) tablet ferrous sulfate 325 mg (65 mg 325 mg PO DAILY 05/29/19 01/20/20 iron) tablet fluticasone 500 mcg-salmeterol 50 1 inhalation INHALATION BID 05/29/19 01/20/20 mcg/dose blistr powdr for inhalation immun glob G(IgG)-pro-IgA 0-50 10 45 gram IV Q3W ml 05/29/19 01/20/20 %-pro-IgA 0 to 50 mcg/mL intravenous solution metformin 1,000 mg tablet 1,000 mg PO BID 05/29/19 01/20/20 nortriptyline 25 mg capsule 25 mg PO QPM 05/29/19 01/20/20 prednisone 10 mg tablet 5 mg PO [facility] tab 05/29/19 01/20/20 spironolactone 50 mg tablet 50 mg PO DAILY 05/29/19 01/20/20 tizanidine 4 mg capsule 4 mg PO TID PRN 05/29/19 01/20/20 fluticasone propionate 50 1 spray NASAL BID PRN 05/31/19 01/20/20 mcg/actuation nasal spray,suspension amoxicillin 500 mg PO Q8H 06/05/19 01/20/20 gabapentin 600 mg PO TID 06/05/19 01/20/20 sodium chloride 3 ml INHALATION DIRECTED 06/05/19 01/20/20 cetirizine [Zyrtec] 10 mg PO DAILY 01/20/20 01/20/20 dexamethasone 4 mg 01/20/20 epinephrine [EpiPen] See Rx Instructions .ROUTE 01/20/20 01/20/20 .COMPLEX PRN hydrocodone-acetaminophen 1 tab PO TID 01/20/20 01/20/20 lovastatin 80 mg PO QPM 01/20/20 01/20/20 montelukast [Singulair] 10 mg PO BEDTIME 01/20/20 01/20/20 sulfamethoxazole-trimethoprim 1 tab PO BID 01/20/20 01/20/20 Previous Rx's Medication Instructions Recorded clonidine HCl 0.1 mg tablet 0.1 mg PO BID #180 tab 07/28/19 levothyroxine 75 mcg tablet 75 mcg PO DAILY #90 tab 07/28/19 losartan 50 mg tablet 50 mg PO DAILY #90 tab 07/28/19 ondansetron HCl 4 mg tablet 4 mg PO Q8H PRN #30 tab 10/06/19 pramipexole 0.5 mg tablet 0.5 mg PO BEDTIME #90 tab 10/07/19 insulin glargine 100 unit/mL 40 unit SUBCUT DAILY #40 ml 12/05/19 subcutaneous solution furosemide 20 mg tablet 20 mg PO DAILY #90 tab 12/12/19 insulin lispro 100 unit/mL 4 unit SUBCUT TID #15 ml 01/16/20 subcutaneous pen Allergies Allergy/AdvReac Type Severity Reaction Status Date / Time hydroxychloroquine Allergy Unknown Verified 01/20/20 14:21 [HYDROXYCHLOROQUINE] promethazine [From Phenergan] Allergy Agitated Verified 01/20/20 14:21 cefepime AdvReac Severe pruritis Verified 01/20/20 14:21 Review of Systems Constitutional Constitutional: Denies chills and Reports fever(s) Eyes Eyes: Denies change in vision Cardiovascular Cardiovascular: Denies chest pain and Reports dyspnea Respiratory Respiratory: Reports cough, Reports excessive phlegm production, Denies pain with cough, Reports dyspnea and Denies wheezing Gastrointestinal Gastrointestinal: Denies change in bowel habits, Denies nausea and Denies vomiting Genitourinary Genitourinary: Denies dysuria Genitourinary: Denies dysuria Musculoskeletal Musculoskeletal: Denies arthralgias and Denies myalgias Integumentary/Breasts Skin/Breast: Denies lesions and Denies rash Neurologic Neurologic: Denies behavioral changes Psychiatric Psychiatric: Denies behavioral changes Hematologic/Lymphatic Hematologic/Lymphatic: Denies easy bleeding and Denies easy bruising Allergic/Immunologic Allergic/Immunologic: Denies urticaria and Denies wheezing Patient History Medical History Abnormal chest xray (Inactive ~1979) Anemia (Chronic) Ankle pain (Chronic) Asthma (Chronic ~1959) Bronchiectasis (Inactive ~2006) Cervical spine disease (Chronic) Chronic back pain (Chronic) Colon polyps (Chronic ~2015) Degenerative joint disease of spine (Chronic ~2001) Diabetes mellitus, type II (Chronic ~2009) Eczema (Inactive) Fibromyalgia (Acute) Foot pain (Chronic) Hoarseness (Chronic) Hyperlipidemia (Acute) Hypertension (Acute) Hypothyroidism (Acute) Migraines (Chronic ~1964) MRSA (methicillin resistant Staphylococcus aureus) (Resolved ~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 (Inactive) Osteoarthritis (Chronic) Osteopenia (Chronic) Pneumonia (Resolved) Recurrent sinusitis (Chronic ~1970) Restless leg syndrome (Chronic) Shoulder pain (Chronic ~03/2018) Sleep apnea (Chronic) Wears glasses (Chronic) Surgical History Anesthesia (Resolved) History of carpal tunnel release (Resolved) History of cataract removal with insertion of prosthetic lens (Resolved ~2014) History of section (Resolved) History of laminectomy (Resolved ~2002) History of spinal fusion (Resolved ~2012) History of thumb surgery (Resolved) Family History Father Stroke Mother Hypertension Brother Cerebral aneurysm Prostate cancer Diabetes mellitus Hypertension Stroke Brother Arthritis Hyperlipidemia Hypertension Sister History of kidney cancer Hypertension Grandfather Cancer Grandmother Cancer Other Family history non-contributory Social History Smoking Status: Never smoker Smoking Status: Never smoker Substance Use Type: does not use Exam Initial Vital Signs Initial Vital Signs: Vital Signs Temperature 99.7 F H 01/20/20 14:16 Pulse Rate 107 H 01/20/20 14:16 Respiratory Rate 24 01/20/20 14:16 Blood Pressure 128/60 01/20/20 14:16 Pulse Oximetry 94 01/20/20 14:16 Const General: cooperative, comfortable and well developed Limitations: mental status not altered HENMT Head: normal to inspection and normocephalic Resp Effort & Inspection: normal respiratory effort, not labored and tachypneic Auscultation: clear to auscultation bilaterally, no rhonchi and no wheezes Cardio Rate: tachycardic Rhythm: regular rhythm Pulses: radial pulses present GI Inspection: non-distended Palpation: soft Skin Lesions: no lesions Rashes: no rashes Neuro General: patient alert and patient awake Cognition: normal cognition Speech: speech normal Extrem General: normal to inspection and capillary refill normal Psych Appearance: grossly normal and well kempt Scores GCS [place] coma scale eye opening: Spontaneous [place] coma scale verbal response: Orientated [place] coma scale motor response: Obey commands [place] coma scale total score: 15 Course Orders Ordered: ED Orders 01/20/20 14:14 COVID19 -ED/INPAT/OR/L&D Stat 01/20/20 14:17 Complete Blood Count AUTO DIFF Stat Comprehensive Metabolic Panel Stat Lactate (Lactic Acid) Stat Lipase Stat Procalcitonin Stat 01/20/20 14:22 XR chest 1V Stat 01/20/20 14:24 EKG-12 Lead Stat 01/20/20 14:56 Sputum Culture Stat 01/20/20 15:02 Blood Culture Stat 01/20/20 16:44 Respiratory Panel (Film Array) Urgent Discontinued Medications Sodium Chloride (Normal Saline 0.9%) 1,000 mls @ 1,000 mls/hr IV BOLUS ONE Stop: 01/20/20 15:24 Last Admin: 01/20/20 14:49 Dose: 1,000 mls/hr Documented by: BRYN Levofloxacin (Levaquin) 750 mg in 150 mls @ 100 mls/hr IV NOW ONE Stop: 01/20/20 16:51 Last Infusion: 01/20/20 17:23 Dose: 0 mls/hr Documented by: Admin: 01/20/20 15:35 Dose: 100 mls/hr Documented by: BRYN Minocycline HCl (Minocin) 100 mg PO NOW ONE Stop: 01/20/20 16:01 Last Admin: 01/20/20 16:17 Dose: 100 mg Documented by: BRYN Vital Signs Vital signs: Vital Signs - 8 hr 01/20/20 14:16 01/20/20 14:30 01/20/20 15:00 Temperature 99.7 F H Pulse Rate 107 H 106 H 95 H Respiratory Rate 24 22 Blood Pressure 128/60 107/51 L 98/57 L Pulse Oximetry 94 94 97 01/20/20 15:16 01/20/20 15:30 01/20/20 16:00 Temperature Pulse Rate 89 87 89 Respiratory Rate 20 31 H 24 Blood Pressure Pulse Oximetry 92 94 94 01/20/20 16:20 01/20/20 16:30 01/20/20 16:31 Temperature Pulse Rate 90 88 89 Respiratory Rate 35 H 26 H 30 H Blood Pressure 120/55 L 102/56 L Pulse Oximetry 95 94 94 01/20/20 17:01 Temperature Pulse Rate 91 H Respiratory Rate 29 H Blood Pressure 130/71 Pulse Oximetry 93 Medical Decision Making Lab Data Lab results reviewed: Yes I reviewed the patient's lab results. Result diagrams: 10/06/20 14:17 01/20/20 14:17 Labs: Lab Results 01/20/20 01/20/20 01/20/20 Range/Units 14:14 14:17 14:17 WBC 28.5 H (4.5-11.0) X10^3/uL RBC 4.74 (4.0-5.2) X10^6/uL Hgb 13.9 (12.0-16.0) g/dL Hct 42.3 (36-46) % MCV 89.2 (80-100) fL MCH 29.3 (26-34) PG MCHC 32.9 (30-36) % RDW 15.8 H (11.6-14.8) % Plt Count 351 (150-400) X10^3/uL Neut % (Auto) Not Reportable Lymph % (Auto) Not Reportable Gregory % (Auto) Not Reportable Eos % (Auto) Not Reportable Baso % (Auto) Not Reportable Lymph # (Auto) Not Reportable Gregory # (Auto) Not Reportable Baso # (Auto) Not Reportable Total Counted 100 Seg Neutrophils % 86.0 H (38-70) % Band Neutrophils % 5.0 (3-7) % Lymphocytes % (Manual) 3.0 L (25-45) % Atypical Lymphs % 1.0 H ( - 0) % Monocytes % (Manual) 5.0 (2-11) % Neutrophils # (Manual) 92633 H (4532-8076) /uL RBC Morphology Normal morphology Sodium (137-145) mmol/L Potassium (3.4-5.1) mmol/L Chloride (98-107) mmol/L Carbon Dioxide (22-32) mmol/L BUN (7-17) mg/dL Creatinine (0.52-1.04) mg/dL Estimated GFR (>60) mL/min BUN/Creatinine Ratio (6-22) Glucose (80-110) mg/dL Lactate (0.7-2.1) mmol/L Calcium (8.4-10.2) mg/dL Total Bilirubin (0.2-1.3) mg/dL AST (14-36) IU/L ALT (<35) IU/L Alkaline Phosphatase (38-126) U/L Total Protein (6.3-8.2) g/dL Albumin (3.5-5.0) g/dL Globulin (1.7-4.1) g/dL Albumin/Globulin Ratio (1.0-2.8) Lipase (23-300) U/L Procalcitonin 2.80 H (<0.5) ng/mL COVID-19 PCR Negative (Negative) 01/20/20 01/20/20 Range/Units 14:17 14:17 WBC (4.5-11.0) X10^3/uL RBC (4.0-5.2) X10^6/uL Hgb (12.0-16.0) g/dL Hct (36-46) % MCV (80-100) fL MCH (26-34) PG MCHC (30-36) % RDW (11.6-14.8) % Plt Count (150-400) X10^3/uL Neut % (Auto) Lymph % (Auto) Gregory % (Auto) Eos % (Auto) Baso % (Auto) Lymph # (Auto) Gregory # (Auto) Baso # (Auto) Total Counted Seg Neutrophils % (38-70) % Band Neutrophils % (3-7) % Lymphocytes % (Manual) (25-45) % Atypical Lymphs % ( - 0) % Monocytes % (Manual) (2-11) % Neutrophils # (Manual) (8333-6042) /uL RBC Morphology Sodium 133 L (137-145) mmol/L Potassium 5.6 H (3.4-5.1) mmol/L Chloride 99 (98-107) mmol/L Carbon Dioxide 26 (22-32) mmol/L BUN 30 H (7-17) mg/dL Creatinine 1.40 H (0.52-1.04) mg/dL Estimated GFR 37.1 L (>60) mL/min BUN/Creatinine Ratio 21.4 (6-22) Glucose 150 H (80-110) mg/dL Lactate 1.9 (0.7-2.1) mmol/L Calcium 9.0 (8.4-10.2) mg/dL Total Bilirubin 0.8 (0.2-1.3) mg/dL AST 41 H (14-36) IU/L ALT 27 (<35) IU/L Alkaline Phosphatase 64 (38-126) U/L Total Protein 7.8 (6.3-8.2) g/dL Albumin 4.2 (3.5-5.0) g/dL Globulin 3.6 (1.7-4.1) g/dL Albumin/Globulin Ratio 1.2 (1.0-2.8) Lipase 82 (23-300) U/L Procalcitonin (<0.5) ng/mL COVID-19 PCR (Negative) Point of Care Testing Glucose POC 142 Point of care testing: Point of Care Testing Glucose POC 142 Imaging Data Chest x-ray: Radiologist's Impression: [address] [address] XRay Report Signed Patient: Radha Zavaleta EMR#: [id number] : 8Acct:[id number] Age/Sex: 69 / FDate of Service: 01/20/20 Loc: ED Accession Number: [id number] Procedure: XR chest 1V Ordering Provider: Bernabe Najera D.O. PROCEDURE: XR CHEST 1V INDICATIONS: cough and SBO TECHNIQUE: One view of the chest was acquired. COMPARISON: [facility], , XR CHEST 2V, 06/05/2019, 15:22. FINDINGS: Surgical changes and devices: None. Lungs and pleura: Patchy left basilar opacities without focal consolidation. Eventration of the right hemidiaphragm. No pleural effusions or pneumothorax. Mediastinum: Mediastinal contours appear stable. Heart size is normal. Bones and chest wall: No suspicious bony lesions. Overlying soft tissues appear unremarkable. IMPRESSION: Patchy left basilar opacities without focal consolidation. Findings may represent atelectasis and/or concurrent airspace disease. Recommend follow up chest radiograph 4-6 weeks after treatment to document resolution of findings and/or return to baseline examination. Dictated by: Aneesh Antonio M.D. on 01/20/2020 at 14:51 Approved by: Aneesh Antonio M.D. on 01/20/2020 at 14:52 ECG Data Attestation: I personally reviewed and interpreted this ECG as follows: Prior ECG tracings: not available for review Interpretation: Sinus rhythm Ventricular rate of 97 Normal axis Normal QRS Normal QTC No ST T wave changes MDM Narrative Medical decision making narrative: Patient is tachypneic however not hypoxic. Chest x-ray is concerning for pneumonia however this is not definitive. She does have a leukocytosis. She has been on Bactrim for the past 7 days. I did discuss the case with Dr. Whalen who is the patient's infectious disease provider. She recommended giving the patient IV Levaquin and p.o. minocycline. This was done here in the ER. Blood cultures were obtained. Plan was to transfer the patient to [facility] where the patient's plumbing service technician and Infectious Disease providers located. Patient was stable for transport. We received a call from [facility] and they did have no bed availability. Plan will be is to admit the patient to this facility with anticipation of transfer room once a bed is available. Discussed the case with Dr. Nance who will admit. He was given contact information for infectious disease provider. Plan wheezing continue antibiotics. Plan to be is to recheck creatinine before dose of Levaquin tomorrow. Infectious Disease recommended meropenem if patient's clinical condition worsened overnight. I did discuss this with the patient. Her and her expressed understanding and agreement. Discharge Plan Departure Patient Disposition: Admitted As Inpatient Clinical Impression: Pneumonia Qualifiers: Pneumonia type: due to unspecified organism Laterality: left Lung location: lower lobe of lung Qualified Code(s): J18.9 - Pneumonia, unspecified organism Admit Date/Time: 01/20/20 17:05 Admit Provider: Harjeet Nance
[2020-01-20] MEDS: levoFLOXacin 750 MG/150 ML PIGGYBACK 100 MG IV (15:35)
[2020-01-20] MEDS: MINOCYCLINE HCL 100 MG CAPSULE PO (16:17)
--- NOTE | 2020-01-20 18:25 | P.HP_ITS ---
History of Present Illness History of Present Illness Date Patient Seen: 01/20/20 Time Patient Seen: 18:25 Chief complaint: weakness Narrative: Radha Zavaleta is a 69-year-old female with a past medical history of bronchiectasis, severe asthma, prior pseudomonal lung infection and stenotrophomonas infection recently on Bactrim per her sheep clipper, CVID, LORENE on CPAP, type 2 diabetes, hyperlipidemia, and adrenal insufficiency who presented to the emergency room today after a fever this morning followed by some shaking and chills and profound weakness. She was unable to get out of bed this morning and needed to be taken to the ER by EMS as she was unable to get herself up. She does complain of worsening shortness of breath over the previous 2-3 days as well as worsening cough and sputum production as well as a change in her sputum quality from a light green to dark green. She is usually able to walk about 60 ft before she gets short of breath but now feels short of breath somewhat at rest. She further reported some desaturations into the mid 80s at home over the past few days. In the emergency room, patient was slightly hypoxic on room air but improved with minimal supplemental oxygen. She does get hypoxic when moving around in her bed, into the mid 80s on my exam when her oxygen was off but quickly improves into the mid to low 90s once at rest. Laboratory evaluation revealed a leukocytosis of 28.5, but further unremarkable CBC. Chemistries revealed a sodium of 133, with potassium of 5.6 although this was a hemolyzed specimen. Creatinine was 1.4 of from her usual baseline of 0.8 - 0.9. Procalcitonin was elevated at 2.8. COVID-19 testing was negative, full respiratory panel is pending. Sputum culture will be sent. Chest x-ray shows a patchy left basilar opacity but no obvious consolidation. The emergency room contacted her infectious disease doctor, Dr. Whaeln, over at [facility], and agreed that patient should be managed there, although there are no current beds. Pending bed placement she will be accepted to our service pending transfer to [facility] once bed is available. Initial recommendations were for Levaquin 750 mg and minocycline. Recommending repeat chemistries to help determine levaquin dosing tomorrow. Patient History Medical History Abnormal chest xray (Inactive ~1979) Anemia (Chronic) Ankle pain (Chronic) Asthma (Chronic ~1959) Bronchiectasis (Inactive ~2006) Cervical spine disease (Chronic) Chronic back pain (Chronic) Colon polyps (Chronic ~2015) Degenerative joint disease of spine (Chronic ~2001) Diabetes mellitus, type II (Chronic ~2009) Eczema (Inactive) Fibromyalgia (Acute) Foot pain (Chronic) Hoarseness (Chronic) Hyperlipidemia (Acute) Hypertension (Acute) Hypothyroidism (Acute) Migraines (Chronic ~1964) MRSA (methicillin resistant Staphylococcus aureus) (Resolved ~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 (Inactive) Osteoarthritis (Chronic) Osteopenia (Chronic) Pneumonia (Resolved) Recurrent sinusitis (Chronic ~1970) Restless leg syndrome (Chronic) Shoulder pain (Chronic ~03/2018) Sleep apnea (Chronic) Wears glasses (Chronic) Surgical History Anesthesia (Resolved) History of carpal tunnel release (Resolved) History of cataract removal with insertion of prosthetic lens (Resolved ~2014) History of section (Resolved) History of laminectomy (Resolved ~2002) History of spinal fusion (Resolved ~2012) History of thumb surgery (Resolved) Family & Social History Family History Father Stroke Mother Hypertension Brother Cerebral aneurysm Prostate cancer Diabetes mellitus Hypertension Stroke Brother Arthritis Hyperlipidemia Hypertension Sister History of kidney cancer Hypertension Grandfather Cancer Grandmother Cancer Other Family history non-contributory Safety & Behavioral: Feels Safe in Current Yes Environment Tobacco & Substance use: Smoking Status Never smoker Substance Use Type does not use Meds Home Medications and Allergies Home Medications Medication Instructions Recorded Confirmed Type budesonide [Pulmicort] 0.5 mg INH BIDP #0 05/21/12 01/20/20 History docusate sodium 500 mg PO BEDTIME #0 05/21/12 01/20/20 History Altoprev 80 mg PO BEDTIME #30 tab 06/06/17 01/20/20 History Mucinex 1,200 mg PO Q12H #0 06/06/17 01/20/20 History polyethylene glycol 3350 [Miralax] 17 gm PO DAILY PRN #0 06/06/17 01/20/20 History albuterol sulfate 90 mcg/actuation 2 puff INHALATION Q4-6H PRN 05/29/19 01/20/20 History aerosol inhaler aspirin 81 mg tablet,delayed 81 mg PO DAILY 05/29/19 01/20/20 History release cholecalciferol (vitamin D3) 50 2,000 unit PO DAILY 05/29/19 01/20/20 History mcg (2,000 unit) tablet ferrous sulfate 325 mg (65 mg 325 mg PO DAILY 05/29/19 01/20/20 History iron) tablet fluticasone 500 mcg-salmeterol 50 1 inhalation INHALATION BID 05/29/19 01/20/20 History mcg/dose blistr powdr for inhalation immun glob G(IgG)-pro-IgA 0-50 10 45 gram IV Q3W ml 05/29/19 01/20/20 History %-pro-IgA 0 to 50 mcg/mL intravenous solution metformin 1,000 mg tablet 1,000 mg PO BID 05/29/19 01/20/20 History nortriptyline 25 mg capsule 25 mg PO QPM 05/29/19 01/20/20 History prednisone 10 mg tablet 5 mg PO [facility] tab 05/29/19 01/20/20 History spironolactone 50 mg tablet 50 mg PO DAILY 05/29/19 01/20/20 History tizanidine 4 mg capsule 4 mg PO TID PRN 05/29/19 01/20/20 History fluticasone propionate 50 1 spray NASAL BID PRN 05/31/19 01/20/20 History mcg/actuation nasal spray,suspension amoxicillin 500 mg PO Q8H 06/05/19 01/20/20 History gabapentin 600 mg PO TID 06/05/19 01/20/20 History sodium chloride 3 ml INHALATION DIRECTED 06/05/19 01/20/20 History clonidine HCl 0.1 mg tablet 0.1 mg PO BID #180 tab 07/28/19 01/20/20 Rx levothyroxine 75 mcg tablet 75 mcg PO DAILY #90 tab 07/28/19 01/20/20 Rx losartan 50 mg tablet 50 mg PO DAILY #90 tab 07/28/19 01/20/20 Rx ondansetron HCl 4 mg tablet 4 mg PO Q8H PRN #30 tab 10/06/19 01/20/20 Rx pramipexole 0.5 mg tablet 0.5 mg PO BEDTIME #90 tab 10/07/19 01/20/20 Rx insulin glargine 100 unit/mL 40 unit SUBCUT DAILY #40 ml 12/05/19 01/20/20 Rx subcutaneous solution furosemide 20 mg tablet 20 mg PO DAILY #90 tab 12/12/19 01/20/20 Rx insulin lispro 100 unit/mL 4 unit SUBCUT TID #15 ml 01/16/20 01/20/20 Rx subcutaneous pen cetirizine [Zyrtec] 10 mg PO DAILY 01/20/20 01/20/20 History dexamethasone 4 mg 01/20/20 History epinephrine [EpiPen] See Rx Instructions .ROUTE 01/20/20 01/20/20 History .COMPLEX PRN hydrocodone-acetaminophen 1 tab PO TID 01/20/20 01/20/20 History lovastatin 80 mg PO QPM 01/20/20 01/20/20 History montelukast [Singulair] 10 mg PO BEDTIME 01/20/20 01/20/20 History sulfamethoxazole-trimethoprim 1 tab PO BID 01/20/20 01/20/20 History Allergies Allergy/AdvReac Type Severity Reaction Status Date / Time hydroxychloroquine Allergy Unknown Verified 01/20/20 14:21 [HYDROXYCHLOROQUINE] promethazine [From Phenergan] Allergy Agitated Verified 01/20/20 14:21 cefepime AdvReac Severe pruritis Verified 01/20/20 14:21 Review of Systems Review of Systems Narrative: All other systems reviewed with the patient and are negative unless otherwise stated. Exam Vital Signs (past 8 hours): - 01/20/20 14:16 01/20/20 14:30 01/20/20 15:00 Temperature 99.7 F H Pulse Rate 107 H 106 H 95 H Respiratory Rate 24 22 Blood Pressure 128/60 107/51 L 98/57 L Pulse Oximetry 94 94 97 01/20/20 15:16 01/20/20 15:30 01/20/20 16:00 Temperature Pulse Rate 89 87 89 Respiratory Rate 20 31 H 24 Blood Pressure Pulse Oximetry 92 94 94 01/20/20 16:20 01/20/20 16:30 01/20/20 16:31 Temperature Pulse Rate 90 88 89 Respiratory Rate 35 H 26 H 30 H Blood Pressure 120/55 L 102/56 L Pulse Oximetry 95 94 94 01/20/20 17:01 01/20/20 18:20 Temperature 99.4 F Pulse Rate 91 H 97 H Respiratory Rate 29 H 20 Blood Pressure 130/71 136/59 L Pulse Oximetry 93 97 Oxygen Delivery Method Nasal Cannula Oxygen Flow Rate 3 Narrative Exam Narrative: GENERAL APPEARANCE: Well developed, well nourished, in no acute distress. Obese with a BMI 50. SKIN: Inspection of the skin reveals no rashes, ulcerations or petechiae. HEENT: Normocephalic atraumatic, extraocular muscles are intact, oropharynx is clear and mucous membranes are moist, neck is supple without adenopathy NECK: Supple and symmetric. There was no thyroid enlargement, and no tenderness, or masses were felt. CHEST: Normal AP diameter and normal contour without any kyphoscoliosis. LUNGS: Auscultation of the lungs revealed bibasilar rhonchi without wheezing. Somewhat diminished breath sounds throughout. CARDIOVASCULAR: There was a regular rate and rhythm without any murmurs, gallops, rubs. Peripheral pulses were 2+ and symmetric. ABDOMEN: Soft and nontender with normal bowel sounds. No ascites was noted. MUSCULOSKELETAL: There was no tenderness or effusions noted. Muscle strength and tone were normal. EXTREMITIES: No cyanosis, clubbing or edema. NEUROLOGIC: Alert and oriented x 3. Normal affect. Strength is +5/5 in the Upper Extremities and Lower Extremities Bilaterally but weak. Sensation to touch was normal. Objective Labs Result Diagrams: 01/20/20 14:17 01/20/20 14:17 Labs: Laboratory Results - last 24 hr 01/20/20 01/20/20 01/20/20 14:14 14:17 14:17 WBC 28.5 H RBC 4.74 Hgb 13.9 Hct 42.3 MCV 89.2 MCH 29.3 MCHC 32.9 RDW 15.8 H Plt Count 351 Neut % (Auto) Not Reportable Lymph % (Auto) Not Reportable [place] % (Auto) Not Reportable Eos % (Auto) Not Reportable Baso % (Auto) Not Reportable Lymph # (Auto) Not Reportable [place] # (Auto) Not Reportable Baso # (Auto) Not Reportable Total Counted 100 Seg Neutrophils % 86.0 H Band Neutrophils % 5.0 Lymphocytes % (Manual) 3.0 L Atypical Lymphs % 1.0 H Monocytes % (Manual) 5.0 Neutrophils # (Manual) 73998 H RBC Morphology Normal morphology Sodium Potassium Chloride Carbon Dioxide BUN Creatinine Estimated GFR BUN/Creatinine Ratio Glucose Lactate Calcium Total Bilirubin AST ALT Alkaline Phosphatase Total Protein Albumin Globulin Albumin/Globulin Ratio Lipase Procalcitonin 2.80 H COVID-19 PCR Negative 01/20/20 01/20/20 14:17 14:17 WBC RBC Hgb Hct MCV MCH MCHC RDW Plt Count Neut % (Auto) Lymph % (Auto) [place] % (Auto) Eos % (Auto) Baso % (Auto) Lymph # (Auto) [place] # (Auto) Baso # (Auto) Total Counted Seg Neutrophils % Band Neutrophils % Lymphocytes % (Manual) Atypical Lymphs % Monocytes % (Manual) Neutrophils # (Manual) RBC Morphology Sodium 133 L Potassium 5.6 H Chloride 99 Carbon Dioxide 26 BUN 30 H Creatinine 1.40 H Estimated GFR 37.1 L BUN/Creatinine Ratio 21.4 Glucose 150 H Lactate 1.9 Calcium 9.0 Total Bilirubin 0.8 AST 41 H ALT 27 Alkaline Phosphatase 64 Total Protein 7.8 Albumin 4.2 Globulin 3.6 Albumin/Globulin Ratio 1.2 Lipase 82 Procalcitonin COVID-19 PCR Assessment & Plan Assessment & Plan narrative: Radha Zavaleta is a 69-year-old female with a past medical history of bronchiectasis, severe asthma, prior pseudomonal lung infection and stenotrophomonas infection recently on Bactrim per her sheep clipper, CVID, LORENE on CPAP, type 2 diabetes, hyperlipidemia, and adrenal insufficiency who presented to the emergency room today after a fever this morning followed by some shaking and chills and profound weakness. She is admitted to Medicine Service pending transfer to [facility] once there is bed availability. 1. Pneumonia, acute, present on admission -patient with severe underlying bronchiectasis and advanced lung disease with prior history of pseudomonal and stenotrophomonas infections. -COVID-19 testing is negative, respiratory PCR is pending, and sputum culture has been ordered and will be sent when he is specimen is produced. -per her infectious disease doctor, Dr. Whalen, at [facility] will start Levaquin and minocycline. First doses were given a emergency room. Minocycline is 100 mg b.i.d. while she was given 750 mg of Levaquin in the ER will follow-up on her kidney function tomorrow to determine her dose at that time. -initial lab findings with a leukocytosis of 28.5, and a procalcitonin of 2.8. Will continue to follow. -no obvious infiltrates on radiographic imaging, but clinical history consistent with pneumonia. Consider further CT imaging if no clinical improvement or decompensated respiratory status. -ER discussed with patient's infectious diseases doctor who recommended transfer to [facility] once a bed is available. -patient's sheep clipper is Dr. Maharaj. -will check a Pro-BNP to further assess if cardiac component. 2. Bronchiectasis, chronic -continue home a nebulizers and inhalers which include Advair, Ventolin, DuoNebs, and Pulmicort as well as Mucinex. Continue allergy medications. -RT eval and treat. 3. Severe persistent asthma, chronic -does not seemingly represent an exacerbation at this time. Patient recently finished an outpatient course of steroids about a week ago for shortness of breath. \ 4. Adrenal insufficiency, chronic -continue home prednisone 5 mg daily. 5. Hypertension, chronic -continue home a clonidine, Lasix, losartan, and spironolactone 6. Type 2 diabetes, chronic -will reduce home dosing of Tresiba 50 units to 40 units of Lantus while here, continue 4 units of Humalog subcu with meals. Will hold home metformin. 7. Hyperlipidemia, chronic -continue home lovastatin 40 mg, continue home aspirin 81 mg 8. Hypothyroidism, chronic -continue home levothyroxine 75 mcg daily. Code: Full as discussed with the patient, surrogate decision makers the patient . DVT: Heparin subcu Dispo: Admitted under inpatient status as her stay is expected to exceed 2 midnights. She is currently pending transfer to [facility] pending bed availability.
[2020-01-20 18:58] LABS: Adenovirus Not Detected (Not Detect); Bordetella pertussis Not Detected (Not Detect); Chlamydophila pneumoniae Not Detected (Not Detect); Coronavirus 229E Not Detected (Not Detect); Coronavirus HKU1 Not Detected (Not Detect); Coronavirus NL 63 Not Detected (Not Detect); Coronavirus OC43 Not Detected (Not Detect); Human Metapneumovirus Not Detected (Not Detect); Human Rhinovirus/Enterovirus Not Detected (Not Detect); Influenza A Not Detected (Not Detect); Influenza B Not Detected (Not Detect); Mycoplasma pneumoniae Not Detected (Not Detect); Parainfluenza Virus 1 Not Detected (Not Detect); Parainfluenza Virus 2 Not Detected (Not Detect); Parainfluenza Virus 3 Not Detected (Not Detect); Parainfluenza Virus 4 Not Detected (Not Detect); Respiratory Syncytial Virus Not Detected (Not Detect)
[2020-01-20] MEDS: ALBUTEROL 2.5 MG/3 ML NEB (ADULT) INH (19:52)
[2020-01-20] MEDS: guaiFENesin ER 600 MG TAB 1200 MG PO (19:52)
[2020-01-20] MEDS: predniSONE 10 MG TABLET 5 MG PO (19:52)
[2020-01-20] MEDS: BUDESONIDE 0.5 MG/2 ML NEB INH (19:52)
[2020-01-20] MEDS: INFLUENZA HD VACCINE 0.7 ML SYRINGE IM (20:01)
[2020-01-20] MEDS: cloNIDine 0.1 MG TABLET PO (20:46)
[2020-01-20] MEDS: FLUTICASONE/SALMETEROL 500/50 60 PUFF DISKUS INH (20:47)
[2020-01-20] MEDS: FLUTICASONE 120 SPRAY/16 GM SPRAY.SUSP NASAL (20:47)
[2020-01-20] MEDS: DOCUSATE 250 MG CAPSULE 500 MG PO (20:47)
[2020-01-20] MEDS: MONTELUKAST 10 MG TABLET PO (20:48)
[2020-01-20] MEDS: HEPARIN 5,000 UNIT/ML VIAL 5000 UNIT SUBCUT (20:48)
[2020-01-20] MEDS: GABAPENTIN 600 MG TABLET PO (20:48)
[2020-01-20] MEDS: PRAMIPEXOLE 0.25 MG TABLET 0.5 MG PO (21:03)
[2020-01-20] MEDS: NORTRIPTYLINE HCL 25 MG CAPSULE PO (22:00)
[2020-01-20] MEDS: HYDROCODONE/ACET 10/325 TABLET 1 TAB PO (22:00)
--- NOTE | 2020-01-20 22:24 | PC.NURSE ---
Admit/Evening Shift Note- Patient arrived to room via stretcher from ER at 1745. Patient alert and oriented and able able to make needs known to staff. Patient pleasant, calm, and cooperative with care. Admit questions done, medications reviewed, physical assessment and skin check completed. Patient required 2PA with gait belt and walker to pivot to [facility]. Patient reports increased weakness and sliding ot Floor this morning at home when trying to get up out of bed. Oriented patient to bed and bed controls, room, lights, phone, menu, bathroom, and call paz/tv remote. Safety measures in place. Patient agrees to call for assistance. Bed alarm activate. call paz and phone within reach. will continue to monitor.
[2020-01-21] VITALS (7 sets, daily range): BP systolic 116–134; BP diastolic 61–75; PULSE 86–111; RESP 16–28; TEMP 36.2–37.5; O2SAT 92–96
[2020-01-21] MEDS: ACETAMINOPHEN 325 MG TABLET 650 MG PO (04:37)
[2020-01-21] MEDS: guaiFENesin ER 600 MG TAB 1200 MG PO ×2 (05:18→18:04)
[2020-01-21] MEDS: FERROUS SULFATE 325 MG TABLET PO (05:18)
[2020-01-21 05:57] LABS: Add Manual Diff / Slide Review NO; Basophils Absolute Auto 100 /uL (0-100); Basophils Percent Auto 0.4 % (0-2); Eosinophils Absolute Auto 0 /uL (0-450); Hematocrit 35.3 % (36-46); Hemoglobin 11.5 g/dL (12.0-16.0); Lymphocytes Absolute Auto 1600 /uL (1100-4500); Lymphocytes Percent Auto 7.8 % (25-40); Mean Corpuscular HGB Conc 32.6 % (30-36); Mean Corpuscular Hemoglobin 29.4 PG (26-34); Mean Corpuscular Volume 89.9 fL (80-100); Monocytes Absolute Auto 1100 /uL (0-900); Monocytes Percent Auto 5.5 % (3-14); Neutrophils Absolute Auto 17200 /uL (1500-7000); Neutrophils Percent Auto 86.3 % (50-75); Platelet Count 278 X10^3/uL (150-400); Red Blood Cell Count 3.92 X10^6/uL (4.0-5.2); Red Cell Distribution Width 16.4 % (11.6-14.8); White Blood Cell Count 19.9 X10^3/uL (4.5-11.0)
[2020-01-21 06:07] LABS: Alanine Aminotransferase 23 IU/L (<35); Albumin 3.3 g/dL (3.5-5.0); Albumin Globulin Ratio 1.1 (1.0-2.8); Alkaline Phosphatase 61 U/L (38-126); Aspartate Aminotransferase 33 IU/L (14-36); BUN Creatinine Ratio 21.2 (6-22); Bilirubin Total 0.6 mg/dL (0.2-1.3); Bilirubin Unconjugated 0.4 mg/dL (0.0-1.1); Blood Urea Nitrogen 22 mg/dL (7-17); Calcium 8.8 mg/dL (8.4-10.2); Carbon Dioxide 25 mmol/L (22-32); Chloride 103 mmol/L (98-107); Estimated Glomerular Filt Rate 52.2 mL/min (>60); Globulin 2.9 g/dL (1.7-4.1); Glucose 108 mg/dL (80-110); HEMOLYSIS < 15 (0-50); Magnesium 1.8 mg/dL (1.6-2.3); Potassium 4.3 mmol/L (3.4-5.1); Sodium 134 mmol/L (137-145); Total Protein 6.2 g/dL (6.3-8.2)
[2020-01-21 06:13] LABS: NT-proBNP (BNP-Adult 18+) 820 pg/mL (<125)
[2020-01-21] MEDS: HEPARIN 5,000 UNIT/ML VIAL 5000 UNIT SUBCUT ×2 (08:22→20:07)
[2020-01-21] MEDS: LOSARTAN 50 MG TABLET PO (08:22)
[2020-01-21] MEDS: HYDROCODONE/ACET 10/325 TABLET 1 TAB PO ×3 (08:22→20:06)
[2020-01-21] MEDS: MINOCYCLINE HCL 100 MG CAPSULE PO ×2 (08:22→20:05)
[2020-01-21] MEDS: ASPIRIN EC 81 MG TABLET PO (08:22)
[2020-01-21] MEDS: GABAPENTIN 600 MG TABLET PO ×3 (08:23→20:06)
[2020-01-21] MEDS: SPIRONOLACTONE 25 MG TABLET 50 MG PO (08:23)
[2020-01-21] MEDS: FUROSEMIDE 20 MG TABLET PO (08:23)
[2020-01-21] MEDS: predniSONE 10 MG TABLET 5 MG PO (08:23)
[2020-01-21] MEDS: FLUTICASONE 120 SPRAY/16 GM SPRAY.SUSP NASAL ×2 (08:24→20:05)
[2020-01-21] MEDS: INSULIN GLARGINE 100 UNIT/ML 3ML PEN 40 UNIT SUBCUT (08:26)
[2020-01-21] MEDS: cloNIDine 0.1 MG TABLET PO ×2 (09:43→20:06)
--- NOTE | 2020-01-21 09:43 | OT.IPNOTE ---
Per Dr. Nance, pt doing much better today and OT eval orders not needed but still would like PT to do PT eval. Left message for PT . Therefore discharge Ot eval orders.
[2020-01-21] MEDS: ALBUTEROL/IPRATROPIUM 3 ML AMPUL INH ×2 (09:52→20:37)
[2020-01-21] MEDS: BUDESONIDE 0.5 MG/2 ML NEB INH ×2 (09:52→20:39)
--- NOTE | 2020-01-21 10:27 | DI.CT.S_ITS ---
PROCEDURE: CT ANGIO CHEST PE PROTOCOL INDICATIONS: hypoxia, r/o PE vs PNA, known bronchiectasis TECHNIQUE: After the administration of intravenous contrast, 2 mm thick sections acquired from the pulmonary apices to the posterior costophrenic angles. 3-dimensional maximum intensity projection (MIP) coronal and sagittal reformats were then acquired through the thorax. For radiation dose reduction, the following was used: automated exposure control, adjustment of mA and/or kV according to patient size. COMPARISON: [facility], CT, CT HIGH RESOLUTION CHEST, 09/24/2019, 13:17. FINDINGS: Image quality: Excellent. Pulmonary arteries: Pulmonary arteries are normal in size, and demonstrate no intraluminal filling defects to suggest central pulmonary embolism. Lungs and pleura: No pleural effusion or pneumothorax. There is bibasilar patchy consolidation, and some areas of 1.5 cm nodularity for example image 156/5. Scattered scarring and atelectasis Mediastinum: Heart size is normal, without pericardial effusion. Coronary artery calcifications are present. No mediastinal or hilar adenopathy. Thoracic aorta is normal in caliber and enhancement. Esophagus is normal in caliber, without hiatal hernia. Bones and chest wall: No suspicious bony lesions. Ribs and thoracic spine appear intact throughout. Thyroid gland unremarkable . No axillary or supraclavicular adenopathy. Abdomen: Visualized upper abdominal solid organs appear normal in the early arterial phase of enhancement. IMPRESSION: No evidence of pulmonary embolism. No aortic dissection identified. Bibasilar scarring and atelectasis, with areas of patchy consolidation possibly pneumonia versus aspiration. Non-specific ill-defined nodularity present measuring approximately 1.5 cm. Recommend follow-up to document resolution after treatment and exclude pulmonary nodule Coronary artery disease Dictated by: Usama Chauhan M.D. on 01/21/2020 at 11:09 Approved by: Usama Chauhan M.D. on 01/21/2020 at 11:17
[2020-01-21] MEDS: LEVOTHYROXINE 75 MCG TABLET PO (11:20)
--- NOTE | 2020-01-21 11:26 | PC.NURSE ---
Assess- Patient has been stable this morning. Her blood sugar at breakfast time was 118. She took her Lantus 40u but refused the 4u of novolog. Patient has been voiding well, she is off of oxygen at this time. She is sating 91-92%. Will put this back on if she desats lower than 90s. She is back from her CT and sitting back up in the chair. She complained of some groin pain and was given vicodin, which has been helpful for discomfort. BS decreased in all lobes, otherwise clear.
--- NOTE | 2020-01-21 11:30 | CM.DANOTE ---
Patient is a 69 year old female who was admitted on 01/20/20 for Weakness. Pt has [facility] for insurance and her PCP is Dr. Murphy Mohan. EMR was reviewed. Per MD, pt with a hx of severe asthma and lung infection and home CPAP and diabetes and admitted for hypoxia/pneumonia. Pt also established with ID MD Dr. Whalen at [facility] who is managing her chronic bronchiectasis. Pt initially accepted at [facility] by ID pending bed availability but pt improving currently on IV-Abx and breathing treatments. Pt scheduled for Stress Test today and pending results will either remain here overnight or transfer to [facility]. SW met bedside with pt and spouse Harjeet (Lucas) who is a recently retired PA with [employer] and explained role. Pt confirms that she has remained independent with ADL's but does not drive and relies on spouse and local family support for transport. Spouse now retired and available for 06/11 assist if needed. Pt and spouse live in [place] with local adult children and grandchildren and remain active. Pt denies any home oxygen at baseline and was hopeful for home today and wants to make sure she is stable before discharge. Plan: SW to follow closely after stress test results and further SERGIO BOWMAN consult to determine remain here overnight vs Hospital transfer to [facility]. MACKENZIE Love Discharge Planning/Care Management CM Discharge Assessment Start: 01/21/20 11:28 Freq: Status: Active Protocol: Document 01/21/20 11:28 BF (Rec: 01/21/20 11:30 BF [id number]) Discharge Planning Assessment Assigned Document Management Consultant MACKENZIE Pinto DPOA/Assigned Designee Name spouse Harjeet Advance Directives? Yes History Provided By Patient,Significant Other, Medical Record Has Patient been admitted in last 30 No days? Prior Living Arrangements House Household Members spouse Type of transporation used prior to Relies on Others admit Independent with ADL's Yes Is patient alert and oriented? Yes Needs Assistance With Home Chores / Shopping Caregiver for Another No Comment Has established ID MD Dr. Whalen at [facility] Comment Likely home with spouse assist Barriers to Discharge No Discharge Plan Home Transportation Arrangement Spouse bedside and can provide transport home when stable Referrals Initiated None needed Whiteboard Updated in Patient Room with Yes name and ext. # of Document Management Consultant Review Status In Process Please Provide Date Initial DC 01/21/20 Assessment Was Performed Next Review Type Continued Stay Review
[2020-01-21] MEDS: INSULIN ASPART 100 UNIT/ML INSULN PEN SUBCUT ×4 (12:06→20:43)
--- NOTE | 2020-01-21 12:24 | PT.IIE ---
Current Diagnoses Pneumonia, unspecified organism (01/20/20) Surgical History (Last Reviewed 06/05/19 @ 20:11 by SHIMA Licona-BOY) Anesthesia (Resolved) History of carpal tunnel release (Resolved) History of cataract removal with insertion of prosthetic lens (Resolved ~2014) History of section (Resolved) History of laminectomy (Resolved ~2002) History of spinal fusion (Resolved ~2012) History of thumb surgery (Resolved) Medical History (Last Reviewed 01/20/20 @ 15:58 by Bernabe Najera DO) Abnormal chest xray (Inactive ~1979) Anemia (Chronic) Ankle pain (Chronic) Asthma (Chronic ~1959) Bronchiectasis (Inactive ~2006) Cervical spine disease (Chronic) Chronic back pain (Chronic) Colon polyps (Chronic ~2015) Degenerative joint disease of spine (Chronic ~2001) Diabetes mellitus, type II (Chronic ~2009) Eczema (Inactive) Fibromyalgia (Acute) Foot pain (Chronic) Hoarseness (Chronic) Hyperlipidemia (Acute) Hypertension (Acute) Hypothyroidism (Acute) Migraines (Chronic ~1964) MRSA (methicillin resistant Staphylococcus aureus) (Resolved ~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 (Inactive) Osteoarthritis (Chronic) Osteopenia (Chronic) Pneumonia (Resolved) Recurrent sinusitis (Chronic ~1970) Restless leg syndrome (Chronic) Shoulder pain (Chronic ~03/2018) Sleep apnea (Chronic) Wears glasses (Chronic) Physical Therapy Inpatient Evaluation/Re-Eval M1 PT/OT-IP Prior Functional Status Start: 01/21/20 08:27 Freq: NEEDED Status: Active Protocol: Document 01/21/20 11:59 (Rec: 01/21/20 12:24 [id number]) Medical Review Prior Functional Status Medical History Reviewed Yes Diet/Fluid Consistency Regular Communication no deficits noted. able to make needs known Mobility and Gait Pt is homebound and does not need AD for mobility. She does use a walking stick for uneven grounds. Pt tends to get SOB easily and only able to vivienne ~60 ft of distance before rest. Activities of Daily Living and IADL's independent with ADL's but does not drive and relies on spouse and local family support for transport Prior Functional Level (Other details) past medical history of bronchiectasis, severe asthma, prior pseudomonal lung infection and stenotrophomonas infection recently on Bactrim per her data compiler, CVID, LORENE on CPAP, type 2 diabetes, hyperlipidemia, and adrenal insufficiency Social History Household Members spouse Living Arrangements House Number of Floors (Floors) One Floor Number of Stairs To Enter/Railing? front entrance= 2STE with 1 rail on R garage entrance= 2STE with B rails (pt preference) Home Environment Standard Height Toilet,Walk in Shower,Built-In Shower Seat Home Equipment Front Wheel Walker,Straight Cane,Hand Held Shower,Collar Feller, Sock Aid,Grab Bars In Shower Employment Status Retired Additional Social History Comment pt lives with spouse Harjeet ( [place]) who is a recently retired PA with [employer] and explained role. Pt confirms that she has remained independent with ADL's but does not drive and relies on spouse and local family support for transport. Spouse now retired and available for 06/11 assist if needed. Pt and spouse live in [place] with local adult children and grandchildren and remain active. Pt denies any home oxygen at baseline M2 PT-IP Current Condition Start: 01/21/20 08:27 Freq: NEEDED Status: Active Protocol: Document 01/21/20 11:59 HH (Rec: 01/21/20 12:24 [id number]) Physical Therapy Current Condition Current Condition Evaluation Date 01/21/20 Treatment Diagnosis PNA, Bronchiectasis, severe asthma, generalized weakness, SOB Onset Date 01/20/20 Weight Bearing Status Weight Bearing Status Full Weight Bearing M3 PT-IP Subjective Start: 01/21/20 08:27 Freq: NEEDED Status: Active Protocol: Document 01/21/20 11:59 HH (Rec: 01/21/20 12:24 [id number]) Subjective Physical Therapy Visit Type Type Initial Evaluation Visit Start Time 09:10 Visit Stop Time 09:41 Total Visit Minutes 31 Notes Spouse Harjeet at bedside. SPT Guillermo shadowing this PT. Number of RESIDENTIAL DIRECT SUPPORT PROFESSIONAL Visits 0 Physical Therapy Visit Comments Patient Comments I want to get better and go home. Patient Goals To return home once she is medically stable. Therapy Pain Assessment Pain When Pain Assessed During Mobility Pain Present Pain Present Pain Reported Location bilateral groin Intensity 5 Scale Used Numeric (0 - 10) Description Aching,With Movement Pain Management Techniques Timing of Activity with Medications M4 PT-IP Mobility and Gait Start: 01/21/20 08:27 Freq: NEEDED Status: Active Protocol: Document 01/21/20 11:59 HH (Rec: 01/21/20 12:24 HH [id number]) PT-Transfer Assessment Sit to and From Stand Sit to and from Stand Contact Guard Assistance,Use of Upper Extremities Equipment Transfer Assistive Device Gait Belt Orthotic/Prosthetic Devices or Brace: No Transfers Transfer Destination Chair Transfer Technique Stand Step Pivot Transfer Ability Level of Assist Contact Guard Assistance,Use of Upper Extremities Comments Mobility Comments Pt was in chair upon PT and SPT arrival. Spouse Harjeet at bedside. Pt stated she is feeling better but still SOB during mobility. She agreed to mobilize with PT. BP in sitting 136/66 SpO2 at 92% without NC. She initially stood up by pushing off from B chair armrests with CGA. She took approx 5 sec to complete. She then began to amb without AD, but with WC follow. She completed approx 50 [address] in the hallway with a wobbly gait ( Excessive lateral weight shift ) and pt stated it's becuase of her B groin pain after the fall. Pt appeared to be SOB and wheezing and she requested to sit in W/C for rest. SpO2 down to 86% and she took 2 mins to recover to 91%. She then amb back to her room but her endurance was obviously declining and needed to use wall and bed frame to provide support at the end. She was able to safely transfer herself to chair with use of chair armrests but slowly. Pt was very SOB and fatigue. BP at 133/65 SpO2 at 86%. Provided 2L O2/ min via NC and she recovered to 94% within a minute. Rec pt to use call light for nursing assistance if she needed to mobilize. Call light place within reach. Gait Assessment Gait Gait Assistance Required: Contact Guard Assist Distance (Feet) 100 Able to Maintain Weight Bearing Status Yes During Gait Assistive Devices Assistive Device Gait Belt Orthotic/Prosthetic Devices or Brace: No Gait Deviations General Gait Pattern Antalgic,Decreased Stride Length,Decreased Feet Clearance,Lateral Trunk Lean Factors Limiting Gait Function Factors Limiting Gait Function Decreased Activity Tolerance, Decreased Strength,Limited Range of Motion,Pain,Poor Balance,Poor Safety Awareness, Respiratory Distress Comments Gait Comments see mobility comments Stair Climbing Assessment Comments Stair Climbing Comments did not assess PT-Balance Assessment Sitting Balance and Reactions Static Sitting Balance Ability Normal Dynamic Sitting Balance Ability Normal Standing Balance and Reactions Static Standing Balance Ability Good Dynamic Standing Balance Ability Good Device Used none M5 PT-IP Objective Assessments Start: 01/21/20 08:27 Freq: NEEDED Status: Active Protocol: Document 01/21/20 11:59 (Rec: 01/21/20 12:24 [id number]) Orientation Orientation/Cognition Level of Alertness Alert Orientation Name,Age,Birthday,Month,Date, Year,Day of Week,Place, Situation Language Function Ability No Deficits Noted Safety Awareness Understands Safety Issues Memory Description No Deficits Noted Gross Range of Motion Upper Extremity ROM Assessment Within Functional Limits Lower Extremity ROM Assessment Within Functional Limits Strength Upper Extremity Strength Assessment Within Functional Limits Lower Extremity Strength Assessment Within Functional Limits Coordination Assessment Gross Coordination Gross Coordination WNL Sensation Assessment Sensation Gross Sensation WNL Muscle Tone Muscle Tone WNL Yes M6 PT-IP Treatment Start: 01/21/20 08:27 Freq: NEEDED Status: Active Protocol: Document 01/21/20 11:59 HH (Rec: 01/21/20 12:24 [id number]) Physical Therapy Treatment Education Education Provided Safety M7 PT-IP Assessment and Plan Start: 01/21/20 08:27 Freq: NEEDED Status: Active Protocol: Document 01/21/20 11:59 (Rec: 01/21/20 12:24 [id number]) PT Summary Assessment and Plan Potential Rehabilitation Potential Good Status of Condition at Evaluation Evolving Summary Impairments Pain,ROM,Strength,Balance,Bed Mobility,Transfers,Gait, Activity Tolerance Assessment Summary This is a low complexity evaluation for this 69 yo female admitted to d/t acute PNA, GLF, hypoxia and generalized weakness. PMH includes bronchiectasis, severe asthma, prior pseudomonal lung infection and stenotrophomonas infection recently on Bactrim per her data compiler, CVID, LORENE on CPAP, type 2 diabetes, hyperlipidemia, and adrenal insufficiency. PLOF = independent but limited to household distance without AD. No oxygen needed as well. Upon assessment, pt was somewhat wobbly during amb possibly d/t her new onset of groin pain after a GLF. She desats to 86% after 50 ft and appeared to be very SOB with wheezing but able to recover within few minutes. She also needed NC 2L O2 after PT session. She is far from her baseline at this point d/t her poor activity tolerance but I believe she will be able to d /c home once she is medically stable, along with supportive family assistance. Home health will be beneficial for her to improve mobility and strength . Goals Bed Mobility Goal Standby Assistance Transfer Goal Standby Assistance,Cane,Front Wheeled Walker Gait Goal Standby Assistance,Cane,Front Wheel Walker Gait Distance 150 Other Goals 2STE with Brails SBA mobility with LRAD Days to Meet Goals 3 Frequency of Treatment Frequency Of Treatment Once a Day Treatment Plan Physical Therapy Treatment Plan Bed Mobility Training,Transfer Training,Gait Training, Therapeutic Exercise,Balance Retraining,Discharge Planning, Neuromuscular Re-ed Other Recommendations and Next Treatment check vitals Focus mobility as vivienne with LRAD 2STE with B rails if possible Recommendations To Nursing Amount of Assist Needed 1 Person Assist Discharge Recommendations PT Discharge Recommendations Home with Assistance,Home Health Transportation Needs at Discharge Private Vehicle
--- NOTE | 2020-01-21 14:25 | PM.PN.1 ---
Subjective Subjective Date Patient Seen: 01/21/20 Time Patient Seen: 14:27 Interval history: Radha Zavaleta is a 69-year-old female with a past medical history of bronchiectasis, severe asthma, prior pseudomonal lung infection and stenotrophomonas infection recently on Bactrim per her lead clinical research coordinator, CVID, LORENE on CPAP, type 2 diabetes, hyperlipidemia, and adrenal insufficiency who is admitted to Medicine Service for pneumonia. She feels much improved today but still has a cough and feels short of breath, especially with exertion. She worked with physical therapy and her oxygen saturations dropped into the mid 80s. She also complained of some right pleuritic chest pain upon inspiration. Given her hypoxia a CTA chest was performed to rule out pulmonary embolism, this was negative for emboli but did show a possible infiltrate in her bilateral lower lobes. Her leukocytosis is improving as is procalcitonin. Will continue on levaquin and minocycline per her ID recommendations. Sputum culture pending. Exam Vital Signs (past 8 hours): - 01/21/20 07:30 01/21/20 12:00 Temperature 97.2 F L 99.5 F Pulse Rate 100 H 104 H Respiratory Rate 18 16 Blood Pressure 131/61 131/61 Pulse Oximetry 94 92 Oxygen Delivery Method Nasal Cannula Oxygen Flow Rate 0 Narrative Exam Narrative: GENERAL APPEARANCE: Well developed, well nourished, in no acute distress. Obese with a BMI 50. SKIN: Inspection of the skin reveals no rashes, ulcerations or petechiae. HEENT: Normocephalic atraumatic, extraocular muscles are intact, oropharynx is clear and mucous membranes are moist, neck is supple without adenopathy NECK: Supple and symmetric. There was no thyroid enlargement, and no tenderness, or masses were felt. CHEST: Normal AP diameter and normal contour without any kyphoscoliosis. LUNGS: Auscultation of the lungs revealed bibasilar rhonchi without wheezing. Somewhat diminished breath sounds throughout. CARDIOVASCULAR: There was a regular rate and rhythm without any murmurs, gallops, rubs. Peripheral pulses were 2+ and symmetric. ABDOMEN: Soft and nontender with normal bowel sounds. No ascites was noted. MUSCULOSKELETAL: There was no tenderness or effusions noted. Muscle strength and tone were normal. EXTREMITIES: No cyanosis, clubbing or edema. NEUROLOGIC: Alert and oriented x 3. Normal affect. Strength is +5/5 in the Upper Extremities and Lower Extremities Bilaterally but weak. Sensation to touch was normal. Objective Labs Result Diagrams: 01/21/20 05:16 01/21/20 05:16 Labs: Laboratory Results - last 24 hr 01/20/20 01/20/20 01/20/20 14:14 14:17 14:17 WBC 28.5 H RBC 4.74 Hgb 13.9 Hct 42.3 MCV 89.2 MCH 29.3 MCHC 32.9 RDW 15.8 H Plt Count 351 Neut % (Auto) Not Reportable Lymph % (Auto) Not Reportable [place] % (Auto) Not Reportable Eos % (Auto) Not Reportable Baso % (Auto) Not Reportable Neut # (Auto) Lymph # (Auto) Not Reportable [place] # (Auto) Not Reportable Eos # (Auto) Baso # (Auto) Not Reportable Total Counted 100 Seg Neutrophils % 86.0 H Band Neutrophils % 5.0 Lymphocytes % (Manual) 3.0 L Atypical Lymphs % 1.0 H Monocytes % (Manual) 5.0 Neutrophils # (Manual) 29572 H RBC Morphology Normal morphology Sodium Potassium Chloride Carbon Dioxide BUN Creatinine Estimated GFR BUN/Creatinine Ratio Glucose Lactate Calcium Magnesium Total Bilirubin Conjugated Bilirubin Unconjugated Bilirubin AST ALT Alkaline Phosphatase NT-Pro-B Natriuret Pep Total Protein Albumin Globulin Albumin/Globulin Ratio Lipase Procalcitonin 2.80 H Chlamy pneumoniae PCR Adenovirus (PCR) B.parapertussis DNA PCR Coronavirus OC43 (PCR) Coronavirus HKU1 (PCR) Coronavirus 229E (PCR) COVID-19 PCR Negative Coronavirus NL63 (PCR) Human Metapneumovir PCR Influenza Type A (PCR) Influenza Type B (PCR) M. pneumoniae (PCR) Parainfluenza 1 (PCR) Parainfluenza 2 (PCR) Parainfluenza 3 (PCR) Parainfluenza 4 (PCR) RSV (PCR) Entero/Rhino (PCR) 01/20/20 01/20/20 01/20/20 14:17 14:17 17:25 WBC RBC Hgb Hct MCV MCH MCHC RDW Plt Count Neut % (Auto) Lymph % (Auto) [place] % (Auto) Eos % (Auto) Baso % (Auto) Neut # (Auto) Lymph # (Auto) [place] # (Auto) Eos # (Auto) Baso # (Auto) Total Counted Seg Neutrophils % Band Neutrophils % Lymphocytes % (Manual) Atypical Lymphs % Monocytes % (Manual) Neutrophils # (Manual) RBC Morphology Sodium 133 L Potassium 5.6 H Chloride 99 Carbon Dioxide 26 BUN 30 H Creatinine 1.40 H Estimated GFR 37.1 L BUN/Creatinine Ratio 21.4 Glucose 150 H Lactate 1.9 Calcium 9.0 Magnesium Total Bilirubin 0.8 Conjugated Bilirubin Unconjugated Bilirubin AST 41 H ALT 27 Alkaline Phosphatase 64 NT-Pro-B Natriuret Pep Total Protein 7.8 Albumin 4.2 Globulin 3.6 Albumin/Globulin Ratio 1.2 Lipase 82 Procalcitonin Chlamy pneumoniae PCR Not detected Adenovirus (PCR) Not detected B.parapertussis DNA PCR Not detected Coronavirus OC43 (PCR) Not detected Coronavirus HKU1 (PCR) Not detected Coronavirus 229E (PCR) Not detected COVID-19 PCR Coronavirus NL63 (PCR) Not detected Human Metapneumovir PCR Not detected Influenza Type A (PCR) Not detected Influenza Type B (PCR) Not detected M. pneumoniae (PCR) Not detected Parainfluenza 1 (PCR) Not detected Parainfluenza 2 (PCR) Not detected Parainfluenza 3 (PCR) Not detected Parainfluenza 4 (PCR) Not detected RSV (PCR) Not detected Entero/Rhino (PCR) Not detected 01/21/20 01/21/20 01/21/20 05:16 05:16 05:16 WBC 19.9 H RBC 3.92 L Hgb 11.5 L Hct 35.3 L MCV 89.9 MCH 29.4 MCHC 32.6 RDW 16.4 H Plt Count 278 Neut % (Auto) 86.3 H Lymph % (Auto) 7.8 L [place] % (Auto) 5.5 Eos % (Auto) 0.0 L Baso % (Auto) 0.4 Neut # (Auto) 50271 H Lymph # (Auto) 1600 [place] # (Auto) 1100 H Eos # (Auto) 0 Baso # (Auto) 100 Total Counted Seg Neutrophils % Band Neutrophils % Lymphocytes % (Manual) Atypical Lymphs % Monocytes % (Manual) Neutrophils # (Manual) RBC Morphology Sodium 134 L Potassium 4.3 D Chloride 103 Carbon Dioxide 25 BUN 22 H Creatinine 1.04 Estimated GFR 52.2 L BUN/Creatinine Ratio 21.2 Glucose 108 Lactate Calcium 8.8 Magnesium 1.8 Total Bilirubin 0.6 Conjugated Bilirubin 0.0 Unconjugated Bilirubin 0.4 AST 33 ALT 23 Alkaline Phosphatase 61 NT-Pro-B Natriuret Pep 820 H Total Protein 6.2 L Albumin 3.3 L Globulin 2.9 Albumin/Globulin Ratio 1.1 Lipase Procalcitonin Chlamy pneumoniae PCR Adenovirus (PCR) B.parapertussis DNA PCR Coronavirus OC43 (PCR) Coronavirus HKU1 (PCR) Coronavirus 229E (PCR) COVID-19 PCR Coronavirus NL63 (PCR) Human Metapneumovir PCR Influenza Type A (PCR) Influenza Type B (PCR) M. pneumoniae (PCR) Parainfluenza 1 (PCR) Parainfluenza 2 (PCR) Parainfluenza 3 (PCR) Parainfluenza 4 (PCR) RSV (PCR) Entero/Rhino (PCR) 01/21/20 05:16 WBC RBC Hgb Hct MCV MCH MCHC RDW Plt Count Neut % (Auto) Lymph % (Auto) [place] % (Auto) Eos % (Auto) Baso % (Auto) Neut # (Auto) Lymph # (Auto) [place] # (Auto) Eos # (Auto) Baso # (Auto) Total Counted Seg Neutrophils % Band Neutrophils % Lymphocytes % (Manual) Atypical Lymphs % Monocytes % (Manual) Neutrophils # (Manual) RBC Morphology Sodium Potassium Chloride Carbon Dioxide BUN Creatinine Estimated GFR BUN/Creatinine Ratio Glucose Lactate Calcium Magnesium Total Bilirubin Conjugated Bilirubin Unconjugated Bilirubin AST ALT Alkaline Phosphatase NT-Pro-B Natriuret Pep Total Protein Albumin Globulin Albumin/Globulin Ratio Lipase Procalcitonin 2.00 H Chlamy pneumoniae PCR Adenovirus (PCR) B.parapertussis DNA PCR Coronavirus OC43 (PCR) Coronavirus HKU1 (PCR) Coronavirus 229E (PCR) COVID-19 PCR Coronavirus NL63 (PCR) Human Metapneumovir PCR Influenza Type A (PCR) Influenza Type B (PCR) M. pneumoniae (PCR) Parainfluenza 1 (PCR) Parainfluenza 2 (PCR) Parainfluenza 3 (PCR) Parainfluenza 4 (PCR) RSV (PCR) Entero/Rhino (PCR) Assessment & Plan Assessment & Plan narrative: Radha Zavaleta is a 69-year-old female with a past medical history of bronchiectasis, severe asthma, prior pseudomonal lung infection and stenotrophomonas infection recently on Bactrim per her lead clinical research coordinator, CVID, LORENE on CPAP, type 2 diabetes, hyperlipidemia, and adrenal insufficiency who presented to the emergency room today after a fever this morning followed by some shaking and chills and profound weakness. She is admitted to Medicine Service pending transfer to [facility] once there is bed availability. 1. Pneumonia, acute, present on admission -patient with severe underlying bronchiectasis and advanced lung disease with prior history of pseudomonal and stenotrophomonas infections. There is concern that her current infection is due to recurrence of Pseudomonas or possibly stenotrophomonas. -COVID-19 testing is negative, respiratory PCR is pending, and sputum culture has been ordered and will be sent when he is specimen is produced. -per her infectious disease doctor, Dr. Whalen, at [facility] will start Levaquin and minocycline. First doses were given a emergency room. Minocycline is 100 mg b.i.d. while she was given 750 mg of Levaquin in the ER. Will continue 750 mg daily given improvement in kidney function today. -initial lab findings with a leukocytosis of 28.5, and a procalcitonin of 2.8 which are improving today. -no obvious infiltrates on radiographic imaging, but clinical history consistent with pneumonia. CT shows possible bilateral basilar infiltrates. -ER discussed with patient's infectious diseases doctor who recommended transfer to [facility] once a bed is available, however patient is improving on her current antibiotics. Transfer may not be necessary. - CTA chest performed today for pleuritic R chest pain and persistent hypoxia on exertion. -patient's lead clinical research coordinator is Dr. Maharaj. -proBNP elevated at 820, consider echocardiogram if no further improvement in hypoxia given current improvement on antibiotic therapy. 2. Bronchiectasis, chronic -continue home a nebulizers and inhalers which include Advair, Ventolin, DuoNebs, and Pulmicort as well as Mucinex. Continue allergy medications. -RT eval and treat. 3. Severe persistent asthma, chronic -does not seemingly represent an exacerbation at this time. Patient recently finished an outpatient course of steroids about a week ago for shortness of breath. \ 4. Adrenal insufficiency, chronic -continue home prednisone 5 mg daily. 5. Hypertension, chronic -continue home a clonidine, Lasix, losartan, and spironolactone 6. Type 2 diabetes, chronic -will reduce home dosing of Tresiba 50 units to 40 units of Lantus while here, continue 4 units of Humalog subcu with meals. Will hold home metformin. 7. Hyperlipidemia, chronic -continue home lovastatin 40 mg, continue home aspirin 81 mg 8. Hypothyroidism, chronic -continue home levothyroxine 75 mcg daily. 9. KETTY, present on admission - creatinine of 1.4 improved to 1.0 10. Acute hypoxemic respiratory failure, present on admission. - patient consistently drops into the mid 80s upon ambulation, typically does not at home. Likely secondary to pneumonia and is slowly improving. Code: Full as discussed with the patient, surrogate decision makers the patient . DVT: Heparin subcu Dispo: Admitted under inpatient status as her stay is expected to exceed 2 midnights. She is currently pending transfer to [facility] pending bed availability. Quality VTE Deep Vein Thrombosis/Pulmonary Embolism Present on Admission: No
[2020-01-21] MEDS: levoFLOXacin 250 MG TABLET 750 MG PO (16:17)
[2020-01-21] MEDS: LOVASTATIN 20 MG TABLET 80 MG PO (16:27)
[2020-01-21] MEDS: FLUTICASONE/SALMETEROL 500/50 60 PUFF DISKUS INH (20:05)
[2020-01-21] MEDS: PRAMIPEXOLE 0.25 MG TABLET 0.5 MG PO (20:05)
[2020-01-21] MEDS: DOCUSATE 250 MG CAPSULE 500 MG PO (20:05)
[2020-01-21] MEDS: MONTELUKAST 10 MG TABLET PO (20:06)
[2020-01-21] MEDS: NORTRIPTYLINE HCL 25 MG CAPSULE PO (23:40)
[2020-01-22 03:59] VITALS: BP 113/72; PULSE 101; RESP 20; TEMP 36.7; O2SAT 92
[2020-01-22 06:13] LABS: Add Manual Diff / Slide Review NO; Basophils Absolute Auto 0 /uL (0-100); Basophils Percent Auto 0.3 % (0-2); Eosinophils Absolute Auto 0 /uL (0-450); Hematocrit 35.9 % (36-46); Hemoglobin 11.8 g/dL (12.0-16.0); Lymphocytes Absolute Auto 1300 /uL (1100-4500); Lymphocytes Percent Auto 8.7 % (25-40); Mean Corpuscular HGB Conc 32.8 % (30-36); Mean Corpuscular Hemoglobin 29.2 PG (26-34); Mean Corpuscular Volume 89.2 fL (80-100); Monocytes Absolute Auto 1200 /uL (0-900); Monocytes Percent Auto 7.8 % (3-14); Neutrophils Absolute Auto 12900 /uL (1500-7000); Neutrophils Percent Auto 83.2 % (50-75); Platelet Count 239 X10^3/uL (150-400); Red Blood Cell Count 4.02 X10^6/uL (4.0-5.2); Red Cell Distribution Width 16.3 % (11.6-14.8); White Blood Cell Count 15.4 X10^3/uL (4.5-11.0)
[2020-01-22] MEDS: LEVOTHYROXINE 75 MCG TABLET PO (06:13)
[2020-01-22] MEDS: guaiFENesin ER 600 MG TAB 1200 MG PO (06:14)
[2020-01-22] MEDS: FERROUS SULFATE 325 MG TABLET PO (06:14)
[2020-01-22 06:24] LABS: Alanine Aminotransferase 21 IU/L (<35); Albumin 3.3 g/dL (3.5-5.0); Albumin Globulin Ratio 1.1 (1.0-2.8); Alkaline Phosphatase 70 U/L (38-126); Aspartate Aminotransferase 25 IU/L (14-36); BUN Creatinine Ratio 17.3 (6-22); Bilirubin Total 0.5 mg/dL (0.2-1.3); Bilirubin Unconjugated 0.4 mg/dL (0.0-1.1); Blood Urea Nitrogen 17 mg/dL (7-17); Calcium 8.9 mg/dL (8.4-10.2); Carbon Dioxide 25 mmol/L (22-32); Chloride 102 mmol/L (98-107); Estimated Glomerular Filt Rate 55.9 mL/min (>60); Globulin 3.1 g/dL (1.7-4.1); Glucose 181 mg/dL (80-110); HEMOLYSIS < 15 (0-50); Magnesium 1.5 mg/dL (1.6-2.3); Potassium 4.5 mmol/L (3.4-5.1); Sodium 133 mmol/L (137-145); Total Protein 6.4 g/dL (6.3-8.2)
[2020-01-22 07:14] LABS: Procalcitonin 0.91 ng/mL (<0.5)
[2020-01-22 08:00] VITALS: BP 132/67; PULSE 110; RESP 16; TEMP 37.4; O2SAT 93
[2020-01-22] MEDS: MAGNESIUM SULFATE 1 GM in DEXTROSE 5 % IN WATER 100 ML 102 ML IV (08:07)
[2020-01-22] MEDS: INSULIN ASPART 100 UNIT/ML INSULN PEN SUBCUT ×3 (08:09→12:02)
[2020-01-22] MEDS: INSULIN GLARGINE 100 UNIT/ML 3ML PEN 40 UNIT SUBCUT (08:09)
[2020-01-22] MEDS: FLUTICASONE 120 SPRAY/16 GM SPRAY.SUSP NASAL (08:12)
[2020-01-22] MEDS: GABAPENTIN 600 MG TABLET PO ×2 (08:13→14:57)
[2020-01-22] MEDS: ASPIRIN EC 81 MG TABLET PO (08:13)
[2020-01-22] MEDS: MINOCYCLINE HCL 100 MG CAPSULE PO (08:13)
[2020-01-22] MEDS: cloNIDine 0.1 MG TABLET PO (08:14)
[2020-01-22] MEDS: SPIRONOLACTONE 25 MG TABLET 50 MG PO (08:14)
[2020-01-22] MEDS: predniSONE 10 MG TABLET 5 MG PO (08:14)
[2020-01-22] MEDS: LOSARTAN 50 MG TABLET PO (08:15)
[2020-01-22] MEDS: HEPARIN 5,000 UNIT/ML VIAL 5000 UNIT SUBCUT (08:15)
[2020-01-22] MEDS: HYDROCODONE/ACET 10/325 TABLET 1 TAB PO ×2 (08:15→14:57)
[2020-01-22] MEDS: FUROSEMIDE 20 MG TABLET PO (08:19)
[2020-01-22] MEDS: ALBUTEROL/IPRATROPIUM 3 ML AMPUL INH (08:47)
[2020-01-22] MEDS: BUDESONIDE 0.5 MG/2 ML NEB INH (08:47)
[2020-01-22 08:48] VITALS: PULSE 109; RESP 22; O2SAT 92
[2020-01-22 09:06] VITALS: O2SAT 93
[2020-01-22] MEDS: FLUTICASONE/SALMETEROL 500/50 60 PUFF DISKUS INH (09:06)
--- NOTE | 2020-01-22 10:18 | PC.NURSE ---
Patient is A&Ox3. She was given a vicodin this morning for complaints of 5/10 back pain. She is sob with exertion. She recovers fast when she sits down and is lying in bed. Sats are between 91-94%. Patient coughed of blood colored sputum that was a brownish/red color. aware. Her cultures came back from sputum and she is growing out heavy staph aureus. So patient will be on precautions until we get some sensitivities to antibiotics back. She is getting up with 1 person assist and walker. Patient uses a cpap when she sleeps. She is napping now and vital signs have been wnl.
--- NOTE | 2020-01-22 11:46 | PT.IPTN ---
Current Diagnoses Pneumonia, unspecified organism (01/20/20) Physical Therapy Treatment Note M2 PT-IP Current Condition Start: 01/21/20 08:27 Freq: NEEDED Status: Active Protocol: Document 01/21/20 11:59 HH (Rec: 01/21/20 12:24 HH [id number]) Physical Therapy Current Condition Current Condition Evaluation Date 01/21/20 Treatment Diagnosis PNA, Bronchiectasis, severe asthma, generalized weakness, SOB Onset Date 01/20/20 Weight Bearing Status Weight Bearing Status Full Weight Bearing M3 PT-IP Subjective Start: 01/21/20 08:27 Freq: NEEDED Status: Active Protocol: Document 01/22/20 11:22 KS (Rec: 01/22/20 12:58 KS [id number]) Subjective Physical Therapy Visit Type Type Treatment Note Visit Start Time 11:22 Visit Stop Time 11:46 Total Visit Minutes 24 Number of NURSING HOME MANAGER Visits 1 Physical Therapy Visit Comments Patient Comments Pt agreeable to work w/ therapy. Patient Goals To return home once she is medically stable. Therapy Pain Assessment Pain When Pain Assessed At Rest Pain Present Pain Present Pain Reported Location back Scale Used no number given Description Aching Pain Management Techniques Timing of Activity with Medications M4 PT-IP Mobility and Gait Start: 01/21/20 08:27 Freq: NEEDED Status: Active Protocol: Document 01/22/20 11:22 KS (Rec: 01/22/20 12:58 KS [id number]) PT-Bed Mobility Assessment Scooting Scooting to Edge of Bed Contact Guard Assistance PT-Transfer Assessment Sit to and From Stand Sit to and from Stand Contact Guard Assistance,Use of Upper Extremities Equipment Transfer Assistive Device Gait Belt,Front Wheeled Walker Orthotic/Prosthetic Devices or Brace: No Transfers Transfer Destination Chair,Toilet Transfer Technique pt ambulated w/ FWW Transfer Ability Level of Assist Contact Guard Assistance,Use of Upper Extremities Comments Mobility Comments Pt in chair upon arrival from therapy and O2 93% on RA at rest. Pt CGA for scooting to EOC and sit<>stand w/ FWW and cues for hand placement. Pt ambulated ~30 ft around room w / FWW and CGA and reported fatigue after ~30 ft and requested to sit. Pts O2 >89% on RA w/ cues for breathing. Upon sitting, pts O2 improved to 92%. 1.5 L O2 applied and O2 improved to 95%. Pt then took 3 min seated rest break and requested to use bathroom. Pt then sit<>stand CGA and ambulated to toilet, CGA for stand<>sit on toilet and SBA for sit<>stand w/ grab bars from toilet. Pt then ambulated back to chair and stand<>sit CGA. PATCH PRESS OPERATOR entered and reapplied O2. Pt left in room w/ PATCH PRESS OPERATOR. Gait Assessment Gait Gait Assistance Required: Contact Guard Assist Distance (Feet) 50 Able to Maintain Weight Bearing Status Yes During Gait Assistive Devices Assistive Device Gait Belt Orthotic/Prosthetic Devices or Brace: No Gait Deviations General Gait Pattern Antalgic,Decreased Stride Length,Decreased Feet Clearance,Lateral Trunk Lean Factors Limiting Gait Function Factors Limiting Gait Function Decreased Activity Tolerance, Decreased Strength,Limited Range of Motion,Pain,Poor Balance,Poor Safety Awareness, Respiratory Distress Comments Gait Comments Pt ambulated ~50 ft total w/ FWW and CGA. Pt reported fatigue after 30 ft ambulation and took 3 min rest break w/ 1.5 L O2 prior to ambulating additional ~20 ft to toilet and back. Stair Climbing Assessment Comments Stair Climbing Comments did not assess PT-Balance Assessment Sitting Balance and Reactions Static Sitting Balance Ability Normal Dynamic Sitting Balance Ability Normal Standing Balance and Reactions Static Standing Balance Ability Good Dynamic Standing Balance Ability Good Device Used none M5 PT-IP Objective Assessments Start: 01/21/20 08:27 Freq: NEEDED Status: Active Protocol: Document 01/21/20 11:59 HH (Rec: 01/21/20 12:24 HH [id number]) Orientation Orientation/Cognition Level of Alertness Alert Orientation Name,Age,Birthday,Month,Date, Year,Day of Week,Place, Situation Language Function Ability No Deficits Noted Safety Awareness Understands Safety Issues Memory Description No Deficits Noted Gross Range of Motion Upper Extremity ROM Assessment Within Functional Limits Lower Extremity ROM Assessment Within Functional Limits Strength Upper Extremity Strength Assessment Within Functional Limits Lower Extremity Strength Assessment Within Functional Limits Coordination Assessment Gross Coordination Gross Coordination WNL Sensation Assessment Sensation Gross Sensation WNL Muscle Tone Muscle Tone WNL Yes M6 PT-IP Treatment Start: 01/21/20 08:27 Freq: NEEDED Status: Active Protocol: Document 01/22/20 11:22 KS (Rec: 01/22/20 12:58 KS [id number]) Physical Therapy Treatment Exercises Exercises Ankle Pumps,Gluteal Sets,Quad Sets Education Education Provided Safety M7 PT-IP Assessment and Plan Start: 01/21/20 08:27 Freq: NEEDED Status: Active Protocol: Document 01/22/20 11:22 KS (Rec: 01/22/20 12:58 KS [id number]) PT Summary Assessment and Plan Potential Rehabilitation Potential Good Status of Condition at Evaluation Evolving Summary Impairments Pain,ROM,Strength,Balance,Bed Mobility,Transfers,Gait, Activity Tolerance Assessment Summary Pt continues to be limited in mobility by SOB, weakness, and low tolerance for activity. Pt is CGA for sit<>stand and ambulation w/ cues for hand placement and pursed lip breathing. Pt reported fatigue after ~30 ft ambulation. O2 > 88 on RA during ambulation and >93 on 1.5 L. Reviewed LE exercises including ankle pumps, quad sets, and glute sets to promote LE strengthening. Pt will benefit from home health to improve strength and mobility. Goals Bed Mobility Goal Standby Assistance Transfer Goal Standby Assistance,Cane,Front Wheeled Walker Gait Goal Standby Assistance,Cane,Front Wheel Walker Gait Distance 150 Other Goals 2STE with Brails SBA mobility with LRAD Days to Meet Goals 3 Frequency of Treatment Frequency Of Treatment Once a Day Treatment Plan Physical Therapy Treatment Plan Bed Mobility Training,Transfer Training,Gait Training, Therapeutic Exercise,Balance Retraining,Discharge Planning, Neuromuscular Re-ed Other Recommendations and Next Treatment check vitals Focus mobility as vivienne with LRAD 2STE with B rails if possible Recommendations To Nursing Amount of Assist Needed 1 Person Assist Discharge Recommendations PT Discharge Recommendations Home with Assistance,Home Health Transportation Needs at Discharge Private Vehicle
[2020-01-22 12:00] VITALS: BP 124/57; PULSE 94; RESP 18; TEMP 36.1; O2SAT 95
--- NOTE | 2020-01-22 14:34 | PM.DS.1 ---
History of Present Illness History of Present Illness Date Patient Seen: 01/22/20 Time Patient Seen: 14:34 Chief complaint: weakness Narrative: Radha Zavaleta is a 69-year-old female with a past medical history of bronchiectasis, severe asthma, prior pseudomonal lung infection and stenotrophomonas infection recently on Bactrim per her sketch artist, CVID, LORENE on CPAP, type 2 diabetes, hyperlipidemia, and adrenal insufficiency who presented to the emergency room today after a fever this morning followed by some shaking and chills and profound weakness. She was unable to get out of bed this morning and needed to be taken to the ER by EMS as she was unable to get herself up. She does complain of worsening shortness of breath over the previous 2-3 days as well as worsening cough and sputum production as well as a change in her sputum quality from a light green to dark green. She is usually able to walk about 60 ft before she gets short of breath but now feels short of breath somewhat at rest. She further reported some desaturations into the mid 80s at home over the past few days. In the emergency room, patient was slightly hypoxic on room air but improved with minimal supplemental oxygen. She does get hypoxic when moving around in her bed, into the mid 80s on my exam when her oxygen was off but quickly improves into the mid to low 90s once at rest. Laboratory evaluation revealed a leukocytosis of 28.5, but further unremarkable CBC. Chemistries revealed a sodium of 133, with potassium of 5.6 although this was a hemolyzed specimen. Creatinine was 1.4 of from her usual baseline of 0.8 - 0.9. Procalcitonin was elevated at 2.8. COVID-19 testing was negative, full respiratory panel is pending. Sputum culture will be sent. Chest x-ray shows a patchy left basilar opacity but no obvious consolidation. The emergency room contacted her infectious disease doctor, Dr. Whalen, over at [facility], and agreed that patient should be managed there, although there are no current beds. Pending bed placement she will be accepted to our service pending transfer to [facility] once bed is available. Initial recommendations were for Levaquin 750 mg and minocycline. Recommending repeat chemistries to help determine levaquin dosing tomorrow. Discharge Providers Provider Date of admission: 01/20/20 17:05 Discharge Date: 01/22/20 Primary care physician: Murphy Mohan MD Consults: 01/20/20 18:27 Consult to Occupational Therapy Evaluate & Treat Comment: Physician Instructions: Evaluate and treat Consult to Physical Therapy Evaluate & Treat Comment: Physician Instructions: Evaluate and Treat 01/20/20 18:29 Consult to Respiratory Therapy Evaluate & Treat Comment: Physician Instructions: Evaluate and treat Discharge provider: DO Jacklyn Andrea Hospital Course Discharge Diagnosis: Please see hospital course by problem list noted below: Hospital Course: Radha Zavaleta is a 69-year-old female with a past medical history of bronchiectasis, severe asthma, prior pseudomonal lung infection and stenotrophomonas infection recently on Bactrim per her sketch artist, CVID, LORENE on CPAP, type 2 diabetes, hyperlipidemia, and adrenal insufficiency who presented to the emergency room after a fever followed by some shaking and chills and profound weakness. She was admitted to Medicine Service initially pending transfer to [facility] but improved with antibiotic therapy recommended by her ID physician and was discharged home. 1. Pneumonia, acute, present on admission -patient with severe underlying bronchiectasis and advanced lung disease with prior history of pseudomonal and stenotrophomonas infections. There is concern that her current infection is due to recurrence of Pseudomonas or possibly stenotrophomonas. -COVID-19 testing is negative, respiratory PCR is pending, and sputum culture has been ordered and will be sent when he is specimen is produced. -per her infectious disease doctor, Dr. Whalen, at [facility] started Levaquin and minocycline. She improved on this therapy and will be discharged on 7 additional days. Patient plans to follow up with Dr. Whalen before course is completed. -initial lab findings with a leukocytosis of 28.5, and a procalcitonin of 2.8 which are improving on day of discharge. -no obvious infiltrates on radiographic imaging, but clinical history consistent with pneumonia. CT shows possible bilateral basilar infiltrates. -ER discussed with patient's infectious diseases doctor who recommended transfer to [facility] once a bed is available, however patient is improving on her current antibiotics and was discharged home. - CTA chest performed for pleurtic R chest pain and persistent hypoxia on exertion which did not show PE. -patient's sketch artist is Dr. Maharaj. -proBNP elevated at 820, but given improvement in hypoxemia with antibiotics echocardiogram was un-necessary. Consider as an outpatient given severe pulmonary disease at baseline. 2. Bronchiectasis, chronic -continue home a nebulizers and inhalers which include Advair, Ventolin, DuoNebs, and Pulmicort as well as Mucinex. Continue allergy medications. -RT eval and treat. 3. Severe persistent asthma, chronic -does not seemingly represent an exacerbation at this time. Patient recently finished an outpatient course of steroids about a week ago for shortness of breath. 4. Adrenal insufficiency, chronic -continue home prednisone 5 mg daily. 5. Hypertension, chronic -continue home clonidine, Lasix, losartan, and spironolactone 6. Type 2 diabetes, chronic -no changes to her outpatient diabetic medications are recommended on discharge. 7. Hyperlipidemia, chronic -continue home lovastatin 40 mg, continue home aspirin 81 mg 8. Hypothyroidism, chronic -continue home levothyroxine 75 mcg daily. 9. KETTY, present on admission, resolved - creatinine of 1.4 improved to 1.0. Baseline Cr appears to be around 0.9. 10. Acute hypoxemic respiratory failure, present on admission. - patient consistently dropped into the mid 80s upon ambulation, typically does not at home. Likely secondary to pneumonia and improved to the point where she was able to shower without hypoxemia. At that time she was discharged home. Time Spent with Patient Time spent: Greater than 30 minutes Exam Vital Signs (past 8 hours): - 01/22/20 08:00 01/22/20 08:48 01/22/20 09:06 Temperature 99.4 F Pulse Rate 110 H 109 H Respiratory Rate 16 22 Blood Pressure 132/67 Pulse Oximetry 93 92 93 01/22/20 12:00 Temperature 97.0 F L Pulse Rate 94 H Respiratory Rate 18 Blood Pressure 124/57 L Pulse Oximetry 95 Fraction of Inspired Oxygen 21 Oxygen Delivery Method Room Air Oxygen Flow Rate 1.5 Narrative Exam Narrative: GENERAL APPEARANCE: Well developed, well nourished, in no acute distress. Obese with a BMI 50. SKIN: Inspection of the skin reveals no rashes, ulcerations or petechiae. HEENT: Normocephalic atraumatic, extraocular muscles are intact, oropharynx is clear and mucous membranes are moist, neck is supple without adenopathy NECK: Supple and symmetric. There was no thyroid enlargement, and no tenderness, or masses were felt. CHEST: Normal AP diameter and normal contour without any kyphoscoliosis. LUNGS: Auscultation of the lungs revealed bibasilar rhonchi without wheezing. Somewhat diminished breath sounds throughout. CARDIOVASCULAR: There was a regular rate and rhythm without any murmurs, gallops, rubs. Peripheral pulses were 2+ and symmetric. ABDOMEN: Soft and nontender with normal bowel sounds. No ascites was noted. MUSCULOSKELETAL: There was no tenderness or effusions noted. Muscle strength and tone were normal. EXTREMITIES: No cyanosis, clubbing or edema. NEUROLOGIC: Alert and oriented x 3. Normal affect. Strength is +5/5 in the Upper Extremities and Lower Extremities Bilaterally but weak. Sensation to touch was normal. Objective Labs Result Diagrams: 01/22/20 05:38 01/22/20 05:38 Labs: Laboratory Results - last 24 hr 01/22/20 01/22/20 01/22/20 05:38 05:38 05:38 WBC 15.4 H RBC 4.02 Hgb 11.8 L Hct 35.9 L MCV 89.2 MCH 29.2 MCHC 32.8 RDW 16.3 H Plt Count 239 Neut % (Auto) 83.2 H Lymph % (Auto) 8.7 L [place] % (Auto) 7.8 Eos % (Auto) 0.0 L Baso % (Auto) 0.3 Neut # (Auto) 30969 H Lymph # (Auto) 1300 [place] # (Auto) 1200 H Eos # (Auto) 0 Baso # (Auto) 0 Sodium 133 L Potassium 4.5 Chloride 102 Carbon Dioxide 25 BUN 17 Creatinine 0.98 Estimated GFR 55.9 L BUN/Creatinine Ratio 17.3 Glucose 181 H Calcium 8.9 Magnesium 1.5 L Total Bilirubin 0.5 Conjugated Bilirubin 0.0 Unconjugated Bilirubin 0.4 AST 25 ALT 21 Alkaline Phosphatase 70 Total Protein 6.4 Albumin 3.3 L Globulin 3.1 Albumin/Globulin Ratio 1.1 Procalcitonin 0.91 H Discharge Plan Discharge Plan Patient Disposition: Home Discharge comment: You were admitted to the hospital with a pnuemonia. You improved with Levaquin and minocycline. You should follow up with your infectious disease doctor next week to determine the optimal length of therapy. Cultures are growing staph aureus, which is covered by Minocycline. Discharge orders & Medications Prescriptions: New minocycline 100 mg Capsule 100 mg PO BID 7 Days Qty: 14 RF: 0 levofloxacin 750 mg tablet 750 mg PO Q24H 7 Days Qty: 7 RF: 0 Continued budesonide [Pulmicort] 0.5 MG/2 ML suspension for nebulization 0.5 mg INH BIDP Qty: 0 RF: 0 docusate sodium 250 MG capsule 500 mg PO BEDTIME Qty: 0 RF: 0 Altoprev 40 MG tablet extended release 24 hr 80 mg PO BEDTIME Qty: 30 RF: 0 Mucinex 1,200 MG tablet extended release 12hr 1,200 mg PO Q12H Qty: 0 RF: 0 polyethylene glycol 3350 [Miralax] 119 GM powder 17 gm PO DAILY PRN (Reason: Constipation) Qty: 0 RF: 0 clonidine HCl [Catapres] 0.1 mg tablet 0.1 mg PO BID Qty: 180 RF: 3 levothyroxine [Synthroid] 75 mcg tablet 75 mcg PO DAILY Qty: 90 RF: 3 losartan 50 mg tablet 50 mg PO DAILY Qty: 90 RF: 3 ondansetron HCl [Zofran] 4 mg tablet 4 mg PO Q8H PRN (Reason: nausea and vomiting) Qty: 30 RF: 1 pramipexole 0.5 mg tablet 0.5 mg PO BEDTIME Qty: 90 RF: 3 insulin glargine 100 unit/mL solution 40 unit SUBCUT DAILY Qty: 40 RF: 1 furosemide [Lasix] 20 mg tablet 20 mg PO DAILY Qty: 90 RF: 0 insulin lispro [Humalog KwikPen Insulin] 100 unit/mL insulin pen 4 unit SUBCUT TID Qty: 15 RF: 0 prednisone 10 mg tablet 5 mg PO AMCC RF: 0 Privigen 10 % solution 45 gram IV Q3W RF: 0 ferrous sulfate 325 mg (65 mg iron) tablet 325 mg PO DAILY RF: 0 spironolactone 50 mg tablet 50 mg PO DAILY RF: 0 nortriptyline 25 mg capsule 25 mg PO QPM RF: 0 tizanidine 4 mg capsule 4 mg PO TID PRN (Reason: Spasms) RF: 0 metformin 1,000 mg tablet 1,000 mg PO BID RF: 0 fluticasone propion-salmeterol [Advair Diskus] 500-50 mcg/dose blister with device 1 inhalation INHALATION BID RF: 0 aspirin 81 mg tablet,delayed release (DR/EC) 81 mg PO DAILY RF: 0 cholecalciferol (vitamin D3) 2,000 unit tablet 2,000 unit PO DAILY RF: 0 albuterol sulfate 90 mcg/actuation HFA aerosol inhaler 2 puff INHALATION Q4-6H PRN (Reason: Shortness Of Breath) RF: 0 fluticasone propionate [Flonase Allergy Relief] 50 mcg/actuation spray,suspension 1 spray NASAL BID PRN (Reason: Allergy Symptoms) RF: 0 amoxicillin 500 mg Capsule 500 mg PO Q8H RF: 0 sodium chloride 3 % Solution For Nebulization 3 ml INHALATION DIRECTED RF: 0 gabapentin 600 mg Tablet 600 mg PO TID RF: 0 lovastatin 40 mg Tablet 80 mg PO QPM RF: 0 dexamethasone 1 mg/mL Drops 4 mg RF: 0 montelukast [Singulair] 10 mg Tablet 10 mg PO BEDTIME RF: 0 epinephrine [EpiPen] 0.3 mg/0.3 mL Auto-Injector See Rx Instructions .ROUTE .COMPLEX PRN (Reason: allergy) RF: 0 Zyrtec 10 mg Capsule 10 mg PO DAILY RF: 0 hydrocodone-acetaminophen 10-325 mg Tablet 1 tab PO TID RF: 0 Discontinued sulfamethoxazole-trimethoprim 800-160 mg Tablet 1 tab PO BID RF: 0 Follow up/Referrals: Murphy Mohan MD [Primary Care Provider] - Diet/Activity/Treatments Diet: Diet as Tolerated Activity: As tolerated Visit Report/Discharge Packet Instructions: DI for Pneumonia -- Adult Visit Report Forms: Patient Portal/API, Stroke Signs & Symptoms Discharge Data Primary Care Provider: Murphy Mohan Discharges patient from system. Discharge Date/Time: 01/22/20 15:50 Quality VTE Deep Vein Thrombosis/Pulmonary Embolism Present on Admission: No
--- NOTE | 2020-01-22 15:12 | CM.DPC ---
DCP: continued: case received, EMR reviewed and d/c to home order now noted. PT saw pt today and is recommending HH PT. PT Bonita states she noted the pt had some shortness of breath and that the PT who saw her prior recommended HH PT so she did not change the recommendation. Pt's spouse was not involved during the PT session. 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 Pt says she cannot see that HH would be helpful to her at this point. She is going to follow up with her ID physician. She is currently off oxygen and follows closely with a tech ed/woodshop teacher. She confirms she has been living with respiratory limitations for some time and thus sees no need for HH at this time. Dr. Nance did not order this. Both pt and Lucas are aware that HH can be ordered any time needed through the PCP: Dr. Murphy Mohan. Home today as soon as all d/c instructions are completed.
--- NOTE | 2020-01-22 15:57 | PC.NURSE ---
Discharge Note- Patient discharged home per MD. DIscharge instructions and educations reviewed with patient and signed. Patient to call infectious disease doctor for follow up appontment. Rx's faxed to [facility]. IV line removed and bandaid applied. Tele monitor removed. Patient dressed and packed up all personal items. Patient left via wheelchair with all personal belongings to private car at 1550.
== END 2020-01-22 15:50 | disposition home or self-care (01) | DRG 177 ==
LOC: ED 16:59 → AC 17:06
PROVIDERS: Admitting Provider Internal Medicine; Emergency Provider Emergency Medicine; Family Provider Internal Medicine Infectious Disease; PCP Student in an Organized Health Care Education/Training Program; Referring Provider Emergency Medicine; Visit Provider Internal Medicine
DX: J15.211 Pneumonia due to Methicillin susceptible Staphylococcus aureus (principal); J96.01 Acute respiratory failure with hypoxia; Z68.43 Body mass index [BMI] 50.0-59.9, adult; E27.40 Unspecified adrenocortical insufficiency; N17.9 Acute kidney failure, unspecified; J47.9 Bronchiectasis, uncomplicated; J45.50 Severe persistent asthma, uncomplicated; E66.9 Obesity, unspecified; G47.33 Obstructive sleep apnea (adult) (pediatric); E11.9 Type 2 diabetes mellitus without complications; E78.5 Hyperlipidemia, unspecified; E03.9 Hypothyroidism, unspecified; M79.7 Fibromyalgia; Z79.4 Long term (current) use of insulin
CPT/HCPCS: 36415; 71045; 71275; 80048; 80053; 80076; 82962; 83605; 83690; 83735; 83880; 84145; 85025; 87040; 87070; 87077; 87147; 87186; 87205; 87633; 87635; 90471; 90662; 93005; 93010; 94640; 94760; 94762; 96361; 96365; 96366; 97116; 97161; 97530; 99285; J1644; J1956; J3475; J7613; Q9967

== ENCOUNTER → 2020-01-30 17:33 | Outpatient (CLI) | payer OTHER, SELFPAY ==
[2020-01-20 18:07] VITALS: BMI 48.8
[2020-01-30 18:20] LABS: Add Manual Diff / Slide Review NO; Basophils Absolute Auto 100 /uL (0-100); Basophils Percent Auto 0.7 % (0-2); Eosinophils Absolute Auto 0 /uL (0-450); Hematocrit 39.6 % (36-46); Hemoglobin 13.2 g/dL (12.0-16.0); Lymphocytes Absolute Auto 1900 /uL (1100-4500); Lymphocytes Percent Auto 24.4 % (25-40); Mean Corpuscular HGB Conc 33.2 % (30-36); Mean Corpuscular Hemoglobin 29.8 PG (26-34); Mean Corpuscular Volume 89.8 fL (80-100); Monocytes Absolute Auto 900 /uL (0-900); Monocytes Percent Auto 10.7 % (3-14); Neutrophils Absolute Auto 5100 /uL (1500-7000); Neutrophils Percent Auto 64.2 % (50-75); Platelet Count 459 X10^3/uL (150-400); Red Blood Cell Count 4.41 X10^6/uL (4.0-5.2); Red Cell Distribution Width 16.1 % (11.6-14.8)
== END ==
PROVIDERS: Family Provider Internal Medicine Infectious Disease; PCP Student in an Organized Health Care Education/Training Program
DX: D72.829 Elevated white blood cell count, unspecified (principal)
CPT/HCPCS: 36415; 85025

== ENCOUNTER → 2020-02-29 12:08 | Outpatient (CLI) | payer OTHER, SELFPAY ==
[2020-01-20 18:07] VITALS: BMI 48.8
--- NOTE | 2020-02-29 | DI.RAD.S_ITS ---
PROCEDURE: XR CHEST 2V INDICATIONS: Hip Pain/Pneumonia TECHNIQUE: 2 views of the chest were acquired. COMPARISON: [facility], , XR CHEST 1V, 01/20/2020, 14:35. FINDINGS: Surgical changes and devices: None. Lungs and pleura: Lungs are clear. No pleural effusions or pneumothorax. Mediastinum: Mediastinal contours are normal. Heart size is normal. Bones and chest wall: No suspicious bony abnormalities. Soft tissues appear unremarkable. IMPRESSION: No acute process. Dictated by: Zhou Cortez M.D. on 02/29/2020 at 11:40 Approved by: Zhou Cortez M.D. on 02/29/2020 at 11:40
--- NOTE | 2020-02-29 | DI.RAD.S_ITS ---
PROCEDURE: XR HIP W PEL IF DONE BILAT 2V INDICATIONS: Hip Pain/Pneumonia TECHNIQUE: AP pelvis with lateral view(s) of the bilateral hip(s). COMPARISON: None. FINDINGS: Bones: No fractures or dislocations. Pelvic ring appears intact. No suspicious bony lesions. Soft tissues: The visualized bowel gas pattern is normal. No suspicious soft tissue calcifications. IMPRESSION: No acute fracture. No osseous lesion. If symptoms and/or clinical suspicion for pathology persist, further assessment with repeat, or advanced imaging (e.g., CT, MRI, or bone scan) may be helpful for further assessment. Dictated by: Zhou Cortez M.D. on 02/29/2020 at 11:41 Approved by: Zhou Cortez M.D. on 02/29/2020 at 11:41
== END ==
PROVIDERS: Family Provider Internal Medicine Infectious Disease; PCP Student in an Organized Health Care Education/Training Program; Referring Provider Pain Medicine Pain Medicine; Visit Provider Pain Medicine Pain Medicine
DX: J18.9 Pneumonia, unspecified organism (principal); M25.559 Pain in unspecified hip
CPT/HCPCS: 71046; 73521

== ENCOUNTER → 2020-03-05 13:33 | Outpatient (CLI) | payer OTHER, SELFPAY ==
[2020-01-20 18:07] VITALS: BMI 48.8
[2020-03-05 14:36] LABS: BUN Creatinine Ratio 19.8 (6-22); Blood Urea Nitrogen 22 mg/dL (7-17); Calcium 9.8 mg/dL (8.4-10.2); Carbon Dioxide 25 mmol/L (22-32); Chloride 101 mmol/L (98-107); Estimated Glomerular Filt Rate 48.3 mL/min (>60); Glucose 150 mg/dL (80-110); HEMOLYSIS < 15 (0-50); Potassium 5.2 mmol/L (3.4-5.1); Sodium 136 mmol/L (137-145)
== END ==
PROVIDERS: Family Provider Internal Medicine Infectious Disease; PCP Student in an Organized Health Care Education/Training Program
DX: J47.0 Bronchiectasis with acute lower respiratory infection (principal)
CPT/HCPCS: 36415; 80048

== ENCOUNTER → 2020-03-25 14:39 | Outpatient (CLI) | payer OTHER, SELFPAY ==
[2020-01-20 18:07] VITALS: BMI 48.8
--- NOTE | 2020-03-25 | DI.MG.S_ITS ---
BILATERAL DIGITAL SCREENING MAMMOGRAM 3D/2D WITH CAD: 03/25/2020 CLINICAL: Routine screening. Comparison is made to exams dated: 02/04/2018 mammogram - [facility], 12/26/2016 mammogram, and 11/02/2015 mammogram - [facility]. There are scattered fibroglandular elements in both breasts. Current study was also evaluated with a Computer Aided Detection (CAD) system. No significant masses, calcifications, or other findings are seen in either breast. There has been no significant interval change. IMPRESSION: NEGATIVE There is no mammographic evidence of malignancy. A 1 year screening mammogram is recommended. This exam was interpreted at Station ID: [id number]. NOTE: For mammograms, a report in lay terms will be sent to the patient. Approximately 15% of breast malignancies will not be visualized mammographically. In the management of a palpable breast mass, a negative mammogram must not discourage biopsy of a clinically suspicious lesion. Electronically Signed By: Lolita mckenna/micheline:03/25/2020 17:31:30 letter sent: Normal Exam ACR BI-RADS Category 1: Negative [id number]
--- NOTE | 2020-03-25 | DI.RAD.S_ITS ---
PROCEDURE: XR LUMBAR SPINE 2-3V INDICATIONS: looking for hardware failure TECHNIQUE: 4 views of the lumbar spine were acquired. COMPARISON: None. FINDINGS: Bones: No fracture. Lower thoracic discogenic changes. L3-L4 and L4-L5 posterior spinal fixation with paraspinal fercho and pedicle screws. Interbody cage grafts seen at L3-L4. Multilevel degenerative endplate sclerosis and spurring. Diffuse facet arthropathy. Posterior decompression also present at L4-L5. Bilateral hip joint degeneration. Soft tissues: Overlying bowel gas pattern is normal. No suspicious soft tissue calcifications. IMPRESSION: Expected postoperative alignment of spinal fixation hardware from L3-L5. Hardware appears intact. Dictated by: Usama Chauhan M.D. on 03/25/2020 at 17:01 Approved by: Usama Chauhan M.D. on 03/25/2020 at 17:02
--- NOTE | 2020-03-25 14:48 | DI.CT.S_ITS ---
PROCEDURE: CT LUMBAR SPINE WO CON INDICATIONS: STATUS POST LUMBAR SPINAL FUSION TECHNIQUE: Noncontrast 3 mm thick sections acquired from the T12 level to the sacrum. Sagittal and coronal reformats were constructed. For radiation dose reduction, the following was used: automated exposure control. COMPARISON: [facility], CR, XR LUMBAR SPINE 2-3V, 03/25/2020, 14:47. FINDINGS: Image quality: Portions of the spine are suboptimally evaluated secondary to metallic streak artifact from posterior fusion. Bones: There is trace retrolisthesis of L2 on L3. Posterior fusion is present from L3 through L5. Hardware is intact without hardware fracture or periprosthetic lucency. There are no visualized fractures or dislocations. Small anterior non bridging osteophytes are noted within the lumbar spine. Bridging osteophyte is noted at T11-12. Multilevel degenerative disc space narrowing is present with vacuum discs are noted at L2-3 as well as L5-S1. Mild disc bulges present at L2-3, L3-4, L4-5 and L5-S1. [id number] spinal stenosis is present at L2-3. There is mild right foraminal narrowing at L2-3. Foramina are poorly visualized at postsurgical levels. However, there is likely moderate to severe right foraminal narrowing at L4-5 and L5 S1 as well as severe foraminal narrowing on the left at L5-S1. Facet arthropathy is present. Soft tissues: No retroperitoneal masses or hematomas. Visualized aorta is normal in caliber. IMPRESSION: 1. Status post L3 through L5 fusion as above. 2. Improved appearance of previous spinal stenosis compared to MRI of 2011. 3. Multilevel foraminal narrowing remaining most severe at L4-5 and L5-S1. Dictated by: Melony Boss M.D. on 03/25/2020 at 16:53 Approved by: Melony Boss M.D. on 03/25/2020 at 16:59
== END ==
PROVIDERS: Family Provider Internal Medicine Infectious Disease; PCP Student in an Organized Health Care Education/Training Program; Referring Provider Pain Medicine Pain Medicine; Visit Provider Pain Medicine Pain Medicine
DX: Z12.31 Encounter for screening mammogram for malignant neoplasm of breast (principal); M48.061 Spinal stenosis, lumbar region without neurogenic claudication; M48.07 Spinal stenosis, lumbosacral region; M47.816 Spondylosis without myelopathy or radiculopathy, lumbar region; M16.0 Bilateral primary osteoarthritis of hip; Z78.0 Asymptomatic menopausal state; Z91.89 Other specified personal risk factors, not elsewhere classified; Z98.1 Arthrodesis status
CPT/HCPCS: 72100; 72131; 77063; 77067

== ENCOUNTER 2020-04-25 10:43 | Emergency (ER) | payer OTHER, SELFPAY ==
[2020-01-20 18:07] VITALS: BMI 48.8
[2020-04-25 10:45] VITALS: BP 166/79; PULSE 98; RESP 14; TEMP 36.6; O2SAT 95; BMI 47.8
--- NOTE | 2020-04-25 11:10 | DI.RAD.S_ITS ---
PROCEDURE: XR CHEST 1V INDICATIONS: change in HR TECHNIQUE: One view of the chest was acquired. COMPARISON: [facility], , XR CHEST 2V, 02/29/2020, 12:26. [facility], CR, XR CHEST 1V, 01/20/2020, 14:35. FINDINGS: Suboptimal x-ray penetration of the lung bases. Surgical changes and devices: None. Lungs and pleura: No airspace opacity identified. No significant pleural effusions or pneumothorax. Mediastinum: Mediastinal contours appear normal. Heart size appears prominent. Bones and chest wall: No suspicious bony lesions. Overlying soft tissues appear unremarkable. IMPRESSION: No acute cardiopulmonary abnormality identified. Dictated by: Ivan Omer M.D. on 04/25/2020 at 10:51 Approved by: Ivan Omer M.D. on 04/25/2020 at 10:53
--- NOTE | 2020-04-25 11:18 | ED.ARRPALP ---
HPI - Arrhythmia/Palpitations General Chief Complaint: Arrhythmia/Palpitations Stated Complaint: irregular heart rate Time Seen by Provider: 04/25/20 11:15 Source: patient and family () Mode of arrival: Wheelchair Limitations: no limitations History of Present Illness HPI narrative: This is a 70-year-old female who comes emergency department with complaint of her pulse feeling slow and fast intermittently overnight. She states sometimes 40s to 90s range. She has felt a little short of breath over the last several days, she low bit of cough. 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 Patient states she has had no chest pain or pressure. No lightheadedness or syncope. She felt a little clammy today, no fevers or chills. No nausea or vomiting. No issues with bowel movements or urination. She has had some increased swelling in her lower extremities bilaterally. She did not take her Lasix today. She did start Levaquin on Sunday because of her chronic infections and she had a stimulator placed in her back on Sunday as an outpatient procedure. She does take insulin for diabetes, has hypertension, dyslipidemia but no prior MIs or CVAs. Tobacco, alcohol or illicit. She is off her current aspirin secondary to her recent surgery. Related Data Home Medications Medication Instructions Recorded Confirmed budesonide [Pulmicort] 0.5 mg INH BIDP #0 05/21/12 01/28/20 docusate sodium 500 mg PO BEDTIME #0 05/21/12 01/28/20 Mucinex 1,200 mg PO Q12H #0 06/06/17 01/28/20 polyethylene glycol 3350 [Miralax] 17 gm PO DAILY PRN #0 06/06/17 01/28/20 albuterol sulfate 90 mcg/actuation 2 puff INHALATION Q4-6H PRN 05/29/19 01/28/20 aerosol inhaler aspirin 81 mg tablet,delayed 81 mg PO DAILY 05/29/19 01/28/20 release cholecalciferol (vitamin D3) 50 2,000 unit PO DAILY 05/29/19 01/28/20 mcg (2,000 unit) tablet ferrous sulfate 325 mg (65 mg 325 mg PO DAILY 05/29/19 01/28/20 iron) tablet fluticasone 500 mcg-salmeterol 50 1 inhalation INHALATION BID 05/29/19 01/28/20 mcg/dose blistr powdr for inhalation immune glob,gamm(IgG) 10 %-pro-IgA 45 gram IV Q3W ml 05/29/19 01/28/20 0 to 50 mcg/mL intravenous solution nortriptyline 25 mg capsule 25 mg PO QPM 05/29/19 01/28/20 prednisone 10 mg tablet 5 mg PO [facility]CC tab 05/29/19 01/28/20 spironolactone 50 mg tablet 50 mg PO DAILY 05/29/19 01/28/20 tizanidine 4 mg capsule 4 mg PO TID PRN 05/29/19 01/28/20 fluticasone propionate 50 1 spray NASAL BID PRN 05/31/19 01/28/20 mcg/actuation nasal spray,suspension gabapentin 600 mg PO TID 06/05/19 01/28/20 sodium chloride 3 ml INHALATION DIRECTED 06/05/19 01/28/20 Zyrtec 10 mg PO DAILY 01/20/20 01/28/20 epinephrine [EpiPen] See Rx Instructions .ROUTE 01/20/20 01/28/20 .COMPLEX PRN hydrocodone-acetaminophen 1 tab PO TID 01/20/20 01/28/20 lovastatin 80 mg PO QPM 01/20/20 01/28/20 montelukast [Singulair] 10 mg PO BEDTIME 01/20/20 01/28/20 Previous Rx's Medication Instructions Recorded clonidine HCl 0.1 mg tablet 0.1 mg PO BID #180 tab 07/28/19 levothyroxine 75 mcg tablet 75 mcg PO DAILY #90 tab 07/28/19 losartan 50 mg tablet 50 mg PO DAILY #90 tab 07/28/19 ondansetron HCl 4 mg tablet 4 mg PO Q8H PRN #30 tab 10/06/19 pramipexole 0.5 mg tablet 0.5 mg PO BEDTIME #90 tab 10/07/19 insulin glargine 100 unit/mL 40 unit SUBCUT DAILY #40 ml 12/05/19 subcutaneous solution insulin lispro 100 unit/mL 4 unit SUBCUT TID #15 ml 01/16/20 subcutaneous pen dexamethasone sodium phosphate 4 4 mg IM ONCE #16 ml 01/28/20 mg/mL injection syringe verio reflect glucometer #1 ea 01/28/20 metformin 1,000 mg tablet 1,000 mg PO BID #180 tab 03/10/20 furosemide 20 mg tablet 20 mg PO DAILY #90 tab 03/22/20 insulin syringe-needle U-100 0.5 #100 ea 03/30/20 mL 31 gauge x 08/29 furosemide [Lasix] 40 mg PO DAILY #6 tab 04/25/20 Allergies Allergy/AdvReac Type Severity Reaction Status Date / Time hydroxychloroquine Allergy Unknown Verified 01/28/20 10:50 [HYDROXYCHLOROQUINE] promethazine [From Phenergan] Allergy Agitated Verified 01/28/20 10:50 cefepime AdvReac Severe pruritis Verified 01/28/20 10:50 Review of Systems Review of Systems ROS Unobtainable: All systems reviewed & are unremarkable except as noted in HPI and below Patient History Medical History Abnormal chest xray (~1979) Anemia Ankle pain Asthma (~1959) Bronchiectasis (~2006) Cervical spine disease Chronic back pain Colon polyps (~2015) Degenerative joint disease of spine (~2001) Diabetes mellitus, type II (~2009) Eczema Fibromyalgia Foot pain Hoarseness Hyperlipidemia Hypertension Hypothyroidism Migraines (~1964) 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 Osteopenia Pneumonia Pneumonia Recurrent sinusitis (~1970) Restless leg syndrome Shoulder pain (~03/2018) Sleep apnea Wears glasses Surgical History Anesthesia History of carpal tunnel release History of cataract removal with insertion of prosthetic lens (~2014) History of section History of laminectomy (~2002) History of spinal fusion (~2012) History of thumb surgery Family History Father Stroke Mother Hypertension Brother Cerebral aneurysm Prostate cancer Diabetes mellitus Hypertension Stroke Brother Arthritis Hyperlipidemia Hypertension Sister History of kidney cancer Hypertension Grandfather Cancer Grandmother Cancer Other Family history non-contributory Social History household members: spouse Smoking Status: Never smoker alcohol intake: never Smoking Status: Never smoker Substance Use Type: does not use Exam Narrative Exam Narrative: GENERAL: Alert and oriented x three, obese female in mild distress. HEENT: Head normocephalic, atraumatic, EOMI, pupils reactive, face symmetric, moist mucous membranes NECK: Supple, full range of motion CARDIOVASCULAR: Regular rate and rhythm without murmurs, rubs or gallops. RESPIRATORY: Breath sounds equal bilaterally, no wheezes rales or rhonchi. No tachypnea. No accessory muscle use. ABDOMEN: Soft, nontender. Normoactive bowel sounds all 4 quadrants. No guarding or rebound, rigidity, no mass : No CVA tenderness. BACK: No cervical, thoracic or lumbar vertebral point tenderness. Patient has a clear window some able to visualize the site over her dressing. Appears clean with no signs of infection. EXTREMITIES: Normal range of motion, no clubbing, has bilateral lower extremity edema. Neurovascularly intact NEUROLOGICAL: Cranial nerves II through XII grossly intact. Moving all extremities SKIN: Warm, dry, no petechiae, no rashes or lesions. Initial Vital Signs Initial Vital Signs: Vital Signs Temperature 97.8 F 04/25/20 10:45 Pulse Rate 98 H 04/25/20 10:45 Respiratory Rate 14 04/25/20 10:45 Blood Pressure 166/79 H 04/25/20 10:45 Pulse Oximetry 95 04/25/20 10:45 Course Orders Ordered: ED Orders 04/25/20 10:55 EKG-12 Lead Routine 04/25/20 11:10 XR chest 1V Stat 04/25/20 11:19 Basic Metabolic Panel Stat Complete Blood Count AUTO DIFF Stat Magnesium Stat NT-proBNP (BNP-Adult 18+) Stat Procalcitonin Stat Thyroid Stimulating Hormone Stat Troponin & CK Cardiac Panel Stat 04/25/20 12:43 COVID19 Stat Discontinued Medications Furosemide (Furosemide 40 Mg/4 Ml Vial) 40 mg IV NOW ONE Stop: 04/25/20 12:30 Last Admin: 04/25/20 12:44 Dose: 40 mg Documented by: LUCRECIA Reevaluation(s) Time: 12:51 Vital Signs Vital signs: Vital Signs - 8 hr 04/25/20 12:50 Pulse Rate 88 Respiratory Rate 10 L Blood Pressure 148/112 H Pulse Oximetry 94 MDM - Arrhythmia/Palpitations Lab Data Attestation: I reviewed the patient's lab results. Result diagrams: 04/25/20 11:19 04/25/20 11:19 Labs: Lab Results 04/25/20 04/25/20 04/25/20 Range/Units 11:19 11:19 11:19 WBC 8.2 (4.5-11.0) X10^3/uL RBC 4.23 (4.0-5.2) X10^6/uL Hgb 12.6 (12.0-16.0) g/dL Hct 37.7 (36-46) % MCV 89.1 (80-100) fL MCH 29.7 (26-34) PG MCHC 33.4 (30-36) % RDW 16.7 H (11.6-14.8) % Plt Count 368 (150-400) X10^3/uL Neut % (Auto) 63.1 (50-75) % Lymph % (Auto) 25.7 (25-40) % [place] % (Auto) 10.7 (3-14) % Eos % (Auto) 0.0 L (2-4) % Baso % (Auto) 0.5 (0-2) % Neut # (Auto) 5200 (9299-4899) /uL Lymph # (Auto) 2100 (2390-5814) /uL [place] # (Auto) 900 (0-900) /uL Eos # (Auto) 0 (0-450) /uL Baso # (Auto) 0 (0-100) /uL Sodium 138 (137-145) mmol/L Potassium 4.4 (3.4-5.1) mmol/L Chloride 105 (98-107) mmol/L Carbon Dioxide 26 (22-32) mmol/L BUN 24 H (7-17) mg/dL Creatinine 0.82 (0.52-1.04) mg/dL Estimated GFR > 60.0 (>60) mL/min BUN/Creatinine Ratio 29.3 H (6-22) Glucose 135 H (80-110) mg/dL Calcium 9.1 (8.4-10.2) mg/dL Magnesium 1.5 L (1.6-2.3) mg/dL Total Creatine Kinase 96 (30-135) U/L CK-MB (CK-2) TNP CK-MB (CK-2) Rel Index TNP Troponin I < 0.012 (0.01-0.034) ng/mL NT-Pro-B Natriuret Pep (<125) pg/mL Procalcitonin (<0.5) ng/mL TSH 2.22 (0.47-4.68) uIU/mL SARS-CoV-2 (PCR) (Negative) 04/25/20 04/25/20 04/25/20 Range/Units 11:19 11:19 12:43 WBC (4.5-11.0) X10^3/uL RBC (4.0-5.2) X10^6/uL Hgb (12.0-16.0) g/dL Hct (36-46) % MCV (80-100) fL MCH (26-34) PG MCHC (30-36) % RDW (11.6-14.8) % Plt Count (150-400) X10^3/uL Neut % (Auto) (50-75) % Lymph % (Auto) (25-40) % [place] % (Auto) (3-14) % Eos % (Auto) (2-4) % Baso % (Auto) (0-2) % Neut # (Auto) (3526-8527) /uL Lymph # (Auto) (2550-2900) /uL [place] # (Auto) (0-900) /uL Eos # (Auto) (0-450) /uL Baso # (Auto) (0-100) /uL Sodium (137-145) mmol/L Potassium (3.4-5.1) mmol/L Chloride (98-107) mmol/L Carbon Dioxide (22-32) mmol/L BUN (7-17) mg/dL Creatinine (0.52-1.04) mg/dL Estimated GFR (>60) mL/min BUN/Creatinine Ratio (6-22) Glucose (80-110) mg/dL Calcium (8.4-10.2) mg/dL Magnesium (1.6-2.3) mg/dL Total Creatine Kinase (30-135) U/L CK-MB (CK-2) CK-MB (CK-2) Rel Index Troponin I (0.01-0.034) ng/mL NT-Pro-B Natriuret Pep 521 H (<125) pg/mL Procalcitonin < 0.05 (<0.5) ng/mL TSH (0.47-4.68) uIU/mL SARS-CoV-2 (PCR) Negative (Negative) Urine Dip Bedside Urine Glucose Negative Bedside Urine Bilirubin - Negative Bedside Urine Ketone - Negative Urine Specific [place] 1.015 Bedside Urine Occult Blood - Negative Bedside Urine pH 6.0 Bedside Urine Protein - Negative Bedside Urine Urobilinogen - Negative Bedside Urine Nitrite - Negative Bedside Urine Leukocytes - Negative Esterase Imaging Data Chest x-ray: Radiologist's Impresson: [address] [id number] ReportSigned Patient: Radha Zavaleta EMR#: [id number]: 8Acct:[id number]/Sex: 70 / FDate of Service: 04/25/20Loc: EDAccession Number: [id number] Procedure: XR chest 1V Ordering Provider: Joanne Mckoy D.O. PROCEDURE: XR CHEST 1V INDICATIONS: change in HR TECHNIQUE: One view of the chest was acquired. COMPARISON: [facility], CR, XR CHEST 2V, 02/29/2020, 12:26. [facility], CR, XR CHEST 1V, 01/20/2020, 14:35. FINDINGS: Suboptimal x-ray penetration of the lung bases. Surgical changes and devices: None. Lungs and pleura: No airspace opacity identified. No significant pleural effusions or pneumothorax. Mediastinum: Mediastinal contours appear normal. Heart size appears prominent. Bones and chest wall: No suspicious bony lesions. Overlying soft tissues appear unremarkable. IMPRESSION: No acute cardiopulmonary abnormality identified. Dictated by: Ivan Omer M.D. on 04/25/2020 at 10:51 Approved by: Ivan Omer M.D. on 04/25/2020 at 10:53 ECG Data Attestation: I personally reviewed and interpreted this ECG as follows: Prior ECG tracings: available for review Interpretation: Sinus rhythm rate of 88, [place] 132 QRS is 76 and QTC of 450. No significant ST changes appreciated. Patient has prior EKG from 01/20/2020 with nonspecific change in leads 2 and 3. MDM Narrative Medical decision making narrative: 70-year-old female comes to the emergency department with sensation of irregular heartbeat overnight she does not have it currently and has not had any episodes of atrial fibrillation in the department. She had some mild shortness of breath. She does state that she sometimes increases her Lasix from 20 mg daily to 40 mg daily and has not done this recently. Her labs suggest that she may have some fluid overload and I encouraged her to increase to 40 mg once daily x3 days and then return to her 20 mg dose. She does have a significant history for multiple pseudomonal lung infections she is currently on Levaquin and does not have any changes that suggest that she is infected currently. She also recently had a what sounds like conscious sedation an outpatient a back stimulator placed but otherwise is not highly suspicious for pulmonary emboli we discussed this but at this time are not going to continue to pursue that pathway peer patient's COVID swab is negative. 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 Return precautions were discussed. Discharge Plan Departure Patient Disposition: Home Clinical Impression: CHF (congestive heart failure) Instructions: DI for Heart Failure Activity Restrictions/Additional Instructions: Follow-up with your physician in the next several days for recheck. You may wish to do a ziopatch or holter monitor. It appears that you have some extra fluid on board, take Lasix as prescribed until gone. Increase your lasix to 40mg daily till the next 3 days, then return to 20mg once daily. Prescription sent to [facility] in [place]. Continue your other home medications as prescribed. Return to the ER for new chest pain, fevers, shortness of breath, lightheadedness or passing out, worsening swelling of your lower extremities, persistent vomiting, or other new or concerning symptoms. Prescriptions: New furosemide [Lasix] 20 mg tablet 40 mg PO DAILY Qty: 6 RF: 0 No Action budesonide [Pulmicort] 0.5 MG/2 ML suspension for nebulization 0.5 mg INH BIDP Qty: 0 RF: 0 docusate sodium 250 MG capsule 500 mg PO BEDTIME Qty: 0 RF: 0 Mucinex 1,200 MG tablet extended release 12hr 1,200 mg PO Q12H Qty: 0 RF: 0 polyethylene glycol 3350 [Miralax] 119 GM powder 17 gm PO DAILY PRN (Reason: Constipation) Qty: 0 RF: 0 clonidine HCl [Catapres] 0.1 mg tablet 0.1 mg PO BID Qty: 180 RF: 3 levothyroxine [Synthroid] 75 mcg tablet 75 mcg PO DAILY Qty: 90 RF: 3 losartan 50 mg tablet 50 mg PO DAILY Qty: 90 RF: 3 ondansetron HCl [Zofran] 4 mg tablet 4 mg PO Q8H PRN (Reason: nausea and vomiting) Qty: 30 RF: 1 pramipexole 0.5 mg tablet 0.5 mg PO BEDTIME Qty: 90 RF: 3 insulin glargine 100 unit/mL solution 40 unit SUBCUT DAILY Qty: 40 RF: 1 insulin lispro [Humalog KwikPen Insulin] 100 unit/mL insulin pen 4 unit SUBCUT TID Qty: 15 RF: 0 metformin 1,000 mg tablet 1,000 mg PO BID Qty: 180 RF: 1 furosemide [Lasix] 20 mg tablet 20 mg PO DAILY Qty: 90 RF: 1 (DME) insulin syringe-needle U-100 [BD Insulin Syringe Ultra-Fine] 0.5 mL 31 gauge x 5/16 syringe See Rx Instructions .ROUTE .MEDSUPPLY Qty: 100 RF: 1 dexamethasone sodium phosphate 4 mg/mL syringe 4 mg IM ONCE Qty: 16 RF: 5 (DME) verio reflect glucometer Qty: 1 RF: 0 prednisone 10 mg tablet 5 mg PO AMCC RF: 0 Privigen 10 % solution 45 gram IV Q3W RF: 0 ferrous sulfate 325 mg (65 mg iron) tablet 325 mg PO DAILY RF: 0 spironolactone 50 mg tablet 50 mg PO DAILY RF: 0 nortriptyline 25 mg capsule 25 mg PO QPM RF: 0 tizanidine 4 mg capsule 4 mg PO TID PRN (Reason: Spasms) RF: 0 fluticasone propion-salmeterol [Advair Diskus] 500-50 mcg/dose blister with device 1 inhalation INHALATION BID RF: 0 aspirin 81 mg tablet,delayed release (DR/EC) 81 mg PO DAILY RF: 0 cholecalciferol (vitamin D3) 2,000 unit tablet 2,000 unit PO DAILY RF: 0 albuterol sulfate 90 mcg/actuation HFA aerosol inhaler 2 puff INHALATION Q4-6H PRN (Reason: Shortness Of Breath) RF: 0 fluticasone propionate [Flonase Allergy Relief] 50 mcg/actuation spray,suspension 1 spray NASAL BID PRN (Reason: Allergy Symptoms) RF: 0 sodium chloride 3 % Solution For Nebulization 3 ml INHALATION DIRECTED RF: 0 gabapentin 600 mg Tablet 600 mg PO TID RF: 0 lovastatin 40 mg Tablet 80 mg PO QPM RF: 0 montelukast [Singulair] 10 mg Tablet 10 mg PO BEDTIME RF: 0 epinephrine [EpiPen] 0.3 mg/0.3 mL Auto-Injector See Rx Instructions .ROUTE .COMPLEX PRN (Reason: allergy) RF: 0 Zyrtec 10 mg Capsule 10 mg PO DAILY RF: 0 hydrocodone-acetaminophen 10-325 mg Tablet 1 tab PO TID RF: 0 Referrals: Murphy Mohan MD [Primary Care Provider] -
[2020-04-25 11:30] VITALS: BP 156/55; PULSE 90; RESP 20; O2SAT 97
[2020-04-25 11:34] LABS: Add Manual Diff / Slide Review NO; Basophils Absolute Auto 0 /uL (0-100); Basophils Percent Auto 0.5 % (0-2); Eosinophils Absolute Auto 0 /uL (0-450); Hematocrit 37.7 % (36-46); Hemoglobin 12.6 g/dL (12.0-16.0); Lymphocytes Absolute Auto 2100 /uL (1100-4500); Lymphocytes Percent Auto 25.7 % (25-40); Mean Corpuscular HGB Conc 33.4 % (30-36); Mean Corpuscular Hemoglobin 29.7 PG (26-34); Mean Corpuscular Volume 89.1 fL (80-100); Monocytes Absolute Auto 900 /uL (0-900); Monocytes Percent Auto 10.7 % (3-14); Neutrophils Absolute Auto 5200 /uL (1500-7000); Neutrophils Percent Auto 63.1 % (50-75); Platelet Count 368 X10^3/uL (150-400); Red Blood Cell Count 4.23 X10^6/uL (4.0-5.2); Red Cell Distribution Width 16.7 % (11.6-14.8); White Blood Cell Count 8.2 X10^3/uL (4.5-11.0)
[2020-04-25 11:38] LABS: BUN Creatinine Ratio 29.3 (6-22); Blood Urea Nitrogen 24 mg/dL (7-17); Calcium 9.1 mg/dL (8.4-10.2); Carbon Dioxide 26 mmol/L (22-32); Chloride 105 mmol/L (98-107); Creatine Kinase 96 U/L (30-135); Estimated Glomerular Filt Rate > 60.0 mL/min (>60); Glucose 135 mg/dL (80-110); HEMOLYSIS 15 (0-50); Magnesium 1.5 mg/dL (1.6-2.3); Potassium 4.4 mmol/L (3.4-5.1); Sodium 138 mmol/L (137-145)
[2020-04-25 11:50] LABS: Troponin I < 0.012 ng/mL (0.01-0.034)
[2020-04-25 11:57] LABS: NT-proBNP (BNP-Adult 18+) 521 pg/mL (<125)
[2020-04-25 12:09] LABS: Procalcitonin < 0.05 ng/mL (<0.5); Thyroid Stimulating Hormone 2.22 uIU/mL (0.47-4.68)
[2020-04-25] MEDS: FUROSEMIDE 40 MG/4 ML VIAL IV (12:44)
[2020-04-25 12:50] VITALS: BP 148/112; PULSE 88; RESP 10; O2SAT 94
[2020-04-25 13:10] LABS: COVID19 -Nasal RAPID Negative (Negative)
== END 2020-04-25 13:19 | disposition home or self-care (01) ==
PROVIDERS: Emergency Provider Emergency Medicine; Family Provider Internal Medicine Infectious Disease; PCP Student in an Organized Health Care Education/Training Program
DX: I50.9 Heart failure, unspecified (principal); R06.02 Shortness of breath; R05 Cough; Z20.822 Contact with and (suspected) exposure to COVID-19; I10 Essential (primary) hypertension; E78.5 Hyperlipidemia, unspecified; E11.9 Type 2 diabetes mellitus without complications; E03.9 Hypothyroidism, unspecified; E66.9 Obesity, unspecified; Z68.42 Body mass index [BMI] 45.0-49.9, adult
CPT/HCPCS: 36415; 71045; 80048; 81003; 82550; 83735; 83880; 84145; 84443; 84484; 85025; 87635; 93005; 93010; 96374; 99283; 99284; C9803; J1940

== ENCOUNTER → 2020-06-03 16:53 | Outpatient (CLI) | payer OTHER, SELFPAY ==
[2020-01-20 18:07] VITALS: BMI 48.8
[2020-06-03 17:57] LABS: BUN Creatinine Ratio 20.2 (6-22); Blood Urea Nitrogen 21 mg/dL (7-17); Calcium 9.4 mg/dL (8.4-10.2); Carbon Dioxide 26 mmol/L (22-32); Chloride 106 mmol/L (98-107); Estimated Glomerular Filt Rate 52.1 mL/min (>60); Glucose 109 mg/dL (80-110); HEMOLYSIS 24 (0-50); Potassium 4.5 mmol/L (3.4-5.1); Sodium 138 mmol/L (137-145)
== END ==
PROVIDERS: Family Provider Internal Medicine Infectious Disease; PCP Student in an Organized Health Care Education/Training Program; Referring Provider Internal Medicine; Visit Provider Internal Medicine
DX: R91.1 Solitary pulmonary nodule (principal)
CPT/HCPCS: 36415; 80048

== ENCOUNTER → 2020-06-09 13:35 | Outpatient (CLI) | payer OTHER, SELFPAY ==
[2020-01-20 18:07] VITALS: BMI 48.8
--- NOTE | 2020-06-09 13:38 | DI.CT.S_ITS ---
PROCEDURE: CT CHEST W CON INDICATIONS: Pulmonary nodule TECHNIQUE: After the administration of intravenous contrast, 5 mm thick sections acquired from the pulmonary apices to the posterior costophrenic angles. 1 mm axial lung, 5 mm thick coronal and sagittal reformats and 7 mm axial MIP were acquired. For radiation dose reduction, the following was used: automated exposure control, adjustment of mA and/or kV according to patient size. COMPARISON: [facility], CT, CT ANGIO CHEST PE PROTOCOL, 01/21/2020, 10:42. FINDINGS: Image quality: Excellent. Scattered subsegmental atelectasis and/or scarring. This appears improved since 01/21/20. In particular, the nodular opacity seen at the posterior right lung base has resolved. Ill-defined 5 mm scattered nodule seen in the lateral right upper lobe, for example image 87/4, image 122/4 are not definitively seen on the prior study and may be new, although still indeterminate etiology No focal consolidation. No pleural effusions or pneumothorax. Central and peripheral airways are patent and normal in caliber. Mediastinum: Heart size is normal. No pericardial effusion. No mediastinal or hilar adenopathy by size criteria. Thoracic aorta and central pulmonary arteries are normal in size. Esophagus is normal in caliber. No hiatal hernia. Bones and chest wall: Incidental small fat containing left posterior diaphragmatic hernia. No suspicious bony lesions. Discogenic changes and facet arthropathy. No vertebral body compression fractures. No axillary or supraclavicular adenopathy by size criteria. Thyroid gland negative . Abdomen: Visualized upper abdominal solid organs appear normal. Upper abdominal bowel loops are normal in caliber. IMPRESSION: Posterior right lung base nodular opacity has resolved since the prior study. Additional areas of atelectasis/aspiration appear improved since the prior study from 01/21/20, however 5 mm ill-defined lateral right upper lobe nodules may be new. These findings still could be postinflammatory although technically indeterminate therefore recommend follow-up CT chest in 6 months to exclude neoplastic possibilities. Dictated by: Usama Chauhan M.D. on 06/09/2020 at 15:04 Approved by: Usama Chauhan M.D. on 06/09/2020 at 15:48
== END ==
PROVIDERS: Family Provider Internal Medicine Infectious Disease; PCP Internal Medicine; Referring Provider Internal Medicine; Visit Provider Internal Medicine
DX: R91.8 Other nonspecific abnormal finding of lung field (principal)
CPT/HCPCS: 71260; Q9967

== ENCOUNTER → 2020-07-09 16:29 | Outpatient (CLI) | payer OTHER, SELFPAY ==
[2020-01-20 18:07] VITALS: BMI 48.8
--- NOTE | 2020-07-09 16:32 | DI.MRI.S_ITS ---
PROCEDURE: MR LUMBAR SPINE WO CON COMPARISON: [facility], MR, L-SPINE WITHOUT CONTRAST, 02/10/2011, 10:01. INDICATIONS: ARTHRODESIS STATUS FINDINGS: IMPRESSION: Dictated by: Melony Boss M.D. on 07/12/2020 at 10:09 Approved by: Melony Boss M.D. on 07/12/2020 at 10:09
== END ==
PROVIDERS: Family Provider Internal Medicine Infectious Disease; PCP Internal Medicine; Referring Provider Pain Medicine Pain Medicine; Visit Provider Pain Medicine Pain Medicine
DX: M48.061 Spinal stenosis, lumbar region without neurogenic claudication (principal); M48.07 Spinal stenosis, lumbosacral region; Z98.1 Arthrodesis status
CPT/HCPCS: 72148

== ENCOUNTER → 2020-07-13 18:51 | Outpatient (CLI) | payer OTHER, SELFPAY ==
[2020-01-20 18:07] VITALS: BMI 48.8
--- NOTE | 2020-07-13 18:56 | DI.RAD.S_ITS ---
PROCEDURE: XR LUMBAR SPINE 2-3V INDICATIONS: POST LUMBAR SPINAL FUSION TECHNIQUE: 3 views of the lumbar spine were acquired. COMPARISON: [facility], CR, XR LUMBAR SPINE 2-3V, 03/25/2020, 14:47. FINDINGS: Bones: 5 [id number] vertebrae are present. There is normal bony alignment. No vertebral body compression fractures. No suspicious bony lesions. Prior low lumbosacral spine fusion devices appear stable from L3 through L5 Soft tissues: Overlying bowel gas pattern is normal. No suspicious soft tissue calcifications. IMPRESSION: Prior spine fusion devices, stable over time, no sign of abnormal subluxation or development of compression fracture. Dictated by: Tj Jones M.D. on 07/14/2020 at 8:33 Approved by: Tj Jones M.D. on 07/14/2020 at 8:34
== END ==
PROVIDERS: Family Provider Internal Medicine Infectious Disease; PCP Internal Medicine; Referring Provider Pain Medicine Pain Medicine; Visit Provider Pain Medicine Pain Medicine
DX: Z09 Encounter for follow-up examination after completed treatment for conditions other than malignant neoplasm (principal); Z98.1 Arthrodesis status
CPT/HCPCS: 72100

== ENCOUNTER → 2020-10-14 13:13 | Outpatient (CLI) | payer OTHER, SELFPAY ==
[2020-01-20 18:07] VITALS: BMI 48.8
[2020-10-14 13:18] LABS: RBC Urine None Seen (0-5/HPF)
[2020-10-14 13:45] LABS: Appearance Urine UA CLEAR; Bilirubin Urine UA NEGATIVE (NEGATIVE); Color Urine UA YELLOW; Glucose Urine UA NEGATIVE (Negative); Ketones Urine UA NEGATIVE (NEGATIVE); Leukocyte Esterase Urine UA TRACE (NEGATIVE); Nitrite Urine UA NEGATIVE (Negative); Occult Blood Urine UA NEGATIVE (Negative); Protein Urine UA NEGATIVE (Negative); Urobilinogen Urine UA 0.2 E.U./dL (0.2)
[2020-10-14 14:05] LABS: Squamous Epithelial Cell Urine 0-1 /HPF (0-5/HPF); WBC Urine 0-1/HPF (0-5/HPF)
[2020-10-14 14:06] LABS: Bacteria Urine Few (2-10); Culture Indicated Urine Specimen Cultured
== END ==
PROVIDERS: Family Provider Internal Medicine Infectious Disease; PCP Internal Medicine; Referring Provider Internal Medicine; Visit Provider Internal Medicine
DX: R39.15 Urgency of urination (principal)
CPT/HCPCS: 81001; 87086

== ENCOUNTER → 2020-12-09 10:21 | Outpatient (CLI) | payer OTHER, SELFPAY ==
[2020-01-20 18:07] VITALS: BMI 48.8
[2020-12-09 12:15] LABS: Alanine Aminotransferase 17 IU/L (<35); Albumin 3.7 g/dL (3.5-5.0); Albumin Globulin Ratio 0.9 (1.0-2.8); Alkaline Phosphatase 68 U/L (38-126); Aspartate Aminotransferase 26 IU/L (14-36); BUN Creatinine Ratio 32.6 (6-22); Bilirubin Total 0.3 mg/dL (0.2-1.3); Blood Urea Nitrogen 28 mg/dL (7-17); Calcium 9.3 mg/dL (8.4-10.2); Carbon Dioxide 31 mmol/L (22-32); Chloride 102 mmol/L (98-107); Cholesterol 137 mg/dL (140-199); Estimated Glomerular Filt Rate > 60.0 mL/min (>60); Globulin 4.1 g/dL (1.7-4.1); Glucose 83 mg/dL (80-110); HDL Cholesterol 47 mg/dL (40-60); HEMOLYSIS < 15 (0-50); LDL Cholesterol Calculated 64 mg/dL (<100); Potassium 3.9 mmol/L (3.4-5.1); Sodium 138 mmol/L (137-145); Total Protein 7.8 g/dL (6.3-8.2); Triglycerides 132 mg/dL (35-150)
[2020-12-09 12:36] LABS: Free T4, Direct Thyroxine 1.21 ng/dL (0.78-2.19)
[2020-12-09 12:49] LABS: Thyroid Stimulating Hormone 0.788 uIU/mL (0.47-4.68)
[2020-12-10 15:39] LABS: Hemoglobin A1C% w Est Avg Glu 6.7 % (4.0-6.0)
[2020-12-10 15:42] LABS: Add Manual Diff / Slide Review NO; Basophils Absolute Auto 0 /uL (0-100); Basophils Percent Auto 0.6 % (0-2); Eosinophils Absolute Auto 0 /uL (0-450); Hematocrit 37.8 % (36-46); Hemoglobin 12.1 g/dL (12.0-16.0); Lymphocytes Absolute Auto 2300 /uL (1100-4500); Mean Corpuscular HGB Conc 32.1 % (30-36); Mean Corpuscular Hemoglobin 28.3 PG (26-34); Mean Corpuscular Volume 88.4 fL (80-100); Monocytes Absolute Auto 1000 /uL (0-900); Monocytes Percent Auto 11.8 % (3-14); Neutrophils Absolute Auto 4900 /uL (1500-7000); Neutrophils Percent Auto 59.6 % (50-75); Platelet Count 372 X10^3/uL (150-400); Red Blood Cell Count 4.28 X10^6/uL (4.0-5.2); Red Cell Distribution Width 18.4 % (11.6-14.8); White Blood Cell Count 8.2 X10^3/uL (4.5-11.0)
[2020-12-10 18:04] LABS: Creatinine Urine Random 32.8 mg/dL
[2020-12-10 18:29] LABS: Microalbumin Urine Random < 0.6 mg/dL (0-1.6)
== END ==
PROVIDERS: Family Provider Internal Medicine Infectious Disease; PCP Internal Medicine; Referring Provider Internal Medicine; Visit Provider Internal Medicine
DX: E11.69 Type 2 diabetes mellitus with other specified complication (principal); E78.5 Hyperlipidemia, unspecified; E11.59 Type 2 diabetes mellitus with other circulatory complications; I10 Essential (primary) hypertension; Z79.4 Long term (current) use of insulin; E03.9 Hypothyroidism, unspecified
CPT/HCPCS: 36415; 80053; 80061; 82043; 82570; 83036; 84439; 84443; 85025

== ENCOUNTER → 2021-01-10 16:28 | Outpatient (CLI) | payer OTHER, SELFPAY ==
[2020-01-20 18:07] VITALS: BMI 48.8
[2021-01-10 18:21] LABS: Alanine Aminotransferase 17 IU/L (<35); Albumin 4.1 g/dL (3.5-5.0); Albumin Globulin Ratio 1.1 (1.0-2.8); Alkaline Phosphatase 69 U/L (38-126); Aspartate Aminotransferase 22 IU/L (14-36); BUN Creatinine Ratio 20.8 (6-22); Bilirubin Total 0.2 mg/dL (0.2-1.3); Blood Urea Nitrogen 22 mg/dL (7-17); Calcium 9.5 mg/dL (8.4-10.2); Carbon Dioxide 28 mmol/L (22-32); Chloride 104 mmol/L (98-107); Globulin 3.6 g/dL (1.7-4.1); Glucose 97 mg/dL (80-110); HEMOLYSIS < 15 (0-50); Potassium 4.8 mmol/L (3.4-5.1); Sodium 140 mmol/L (137-145); Total Protein 7.7 g/dL (6.3-8.2)
[2021-01-10 18:23] LABS: Add Manual Diff / Slide Review NO; Basophils Absolute Auto 0 /uL (0-100); Basophils Percent Auto 0.4 % (0-2); Eosinophils Absolute Auto 0 /uL (0-450); Hematocrit 37.3 % (36-46); Hemoglobin 12.1 g/dL (12.0-16.0); Lymphocytes Absolute Auto 1500 /uL (1100-4500); Lymphocytes Percent Auto 17.9 % (25-40); Mean Corpuscular HGB Conc 32.5 % (30-36); Mean Corpuscular Hemoglobin 28.7 PG (26-34); Mean Corpuscular Volume 88.2 fL (80-100); Monocytes Absolute Auto 600 /uL (0-900); Neutrophils Absolute Auto 6100 /uL (1500-7000); Neutrophils Percent Auto 74.7 % (50-75); Platelet Count 289 X10^3/uL (150-400); Red Blood Cell Count 4.23 X10^6/uL (4.0-5.2); Red Cell Distribution Width 17.9 % (11.6-14.8); White Blood Cell Count 8.1 X10^3/uL (4.5-11.0)
== END ==
PROVIDERS: Family Provider Internal Medicine Infectious Disease; PCP Internal Medicine
DX: J47.0 Bronchiectasis with acute lower respiratory infection (principal); J15.1 Pneumonia due to Pseudomonas
CPT/HCPCS: 36415; 80053; 85025

== ENCOUNTER → 2021-01-27 09:05 | Outpatient (CLI) | payer OTHER, SELFPAY ==
[2020-01-20 18:07] VITALS: BMI 48.8
--- NOTE | 2021-01-27 | DI.RAD.S_ITS ---
PROCEDURE: XR LUMBAR SPINE 6V W BENDING INDICATIONS: PAIN TECHNIQUE: 5 views of the lumbar spine acquired, including flexion and extension views. COMPARISON: [facility], CR, XR LUMBAR SPINE 2-3V, 07/13/2020, 19:05. FINDINGS: Bones: 5 nonrib-bearing vertebrae are present. Posterior element hardware is seen at L3 through 5. L3-4 discectomy. Moderate to advanced disc height loss at L4-5. No vertebral body compression fractures. No suspicious bony lesions. Soft tissues: Overlying bowel gas pattern is normal. No suspicious soft tissue calcifications. Flexion/extension: No significant subluxation/movement. IMPRESSION: No significant abnormality. Dictated by: Mitchell Greer M.D. on 01/28/2021 at 8:16 Approved by: Mitchell Greer M.D. on 01/28/2021 at 8:19
--- NOTE | 2021-01-27 | DI.RAD.S_ITS ---
PROCEDURE: XR HIP W PEL IF DONE LT 2V INDICATIONS: s/p lumbar spinal fusion TECHNIQUE: AP pelvis with lateral view(s) of the left hip(s). COMPARISON: [facility], , XR HIP W PEL IF DONE BILAT 2V, 02/29/2020, 12:27. FINDINGS: Bones: No fractures or dislocations. Pelvic ring appears intact. No suspicious bony lesions. Partially imaged hardware in the lumbar spine with evidence of laminectomy/discectomy. Soft tissues: The visualized bowel gas pattern is normal. No suspicious soft tissue calcifications. Pelvic clips are seen, which may reflect tubal ligation. IMPRESSION: No significant abnormality. Dictated by: Mitchell Greer M.D. on 01/28/2021 at 8:14 Approved by: Mitchell Greer M.D. on 01/28/2021 at 8:15
[2021-01-27 10:34] LABS: Add Manual Diff / Slide Review NO; Basophils Absolute Auto 0 /uL (0-100); Basophils Percent Auto 0.3 % (0-2); Eosinophils Absolute Auto 0 /uL (0-450); Hematocrit 36.2 % (36-46); Hemoglobin 11.7 g/dL (12.0-16.0); Lymphocytes Absolute Auto 2200 /uL (1100-4500); Lymphocytes Percent Auto 33.5 % (25-40); Mean Corpuscular HGB Conc 32.3 % (30-36); Mean Corpuscular Hemoglobin 28.4 PG (26-34); Mean Corpuscular Volume 87.9 fL (80-100); Monocytes Absolute Auto 800 /uL (0-900); Monocytes Percent Auto 11.7 % (3-14); Neutrophils Absolute Auto 3600 /uL (1500-7000); Neutrophils Percent Auto 54.5 % (50-75); Platelet Count 375 X10^3/uL (150-400); Red Blood Cell Count 4.11 X10^6/uL (4.0-5.2); Red Cell Distribution Width 17.3 % (11.6-14.8); White Blood Cell Count 6.6 X10^3/uL (4.5-11.0)
[2021-01-27 10:43] LABS: Alanine Aminotransferase 18 IU/L (<35); Albumin Globulin Ratio 1.1 (1.0-2.8); Alkaline Phosphatase 64 U/L (38-126); Aspartate Aminotransferase 28 IU/L (14-36); BUN Creatinine Ratio 20.9 (6-22); Bilirubin Total 0.4 mg/dL (0.2-1.3); Blood Urea Nitrogen 23 mg/dL (7-17); Calcium 9.5 mg/dL (8.4-10.2); Carbon Dioxide 32 mmol/L (22-32); Chloride 99 mmol/L (98-107); Cholesterol 144 mg/dL (140-199); Estimated Glomerular Filt Rate 48.8 mL/min (>60); Globulin 3.6 g/dL (1.7-4.1); Glucose 101 mg/dL (80-110); HDL Cholesterol 51 mg/dL (40-60); HEMOLYSIS < 15 (0-50); LDL Cholesterol Calculated 63 mg/dL (<100); Potassium 3.8 mmol/L (3.4-5.1); Sodium 139 mmol/L (137-145); Total Protein 7.6 g/dL (6.3-8.2); Triglycerides 148 mg/dL (35-150)
[2021-01-27 12:44] LABS: Thyroid Stimulating Hormone 0.831 uIU/mL (0.47-4.68)
[2021-01-27 12:45] LABS: Hemoglobin A1C% w Est Avg Glu 6.6 % (4.0-6.0)
[2021-01-28 14:05] LABS: Free T4, Direct Thyroxine 1.56 ng/dL (0.78-2.19)
[2021-01-28 17:02] LABS: Microalbumin Urine Random 0.6 mg/dL (0-1.6)
[2021-01-28 17:12] LABS: Microalbumi Creatinin Ratio Ur 6.8 ug/mg CR (<30)
== END ==
PROVIDERS: Family Provider Internal Medicine Infectious Disease; PCP Internal Medicine; Referring Provider Internal Medicine; Visit Provider Internal Medicine
DX: E03.9 Hypothyroidism, unspecified (principal); E11.9 Type 2 diabetes mellitus without complications; Z79.4 Long term (current) use of insulin; E11.69 Type 2 diabetes mellitus with other specified complication; E78.5 Hyperlipidemia, unspecified; E11.59 Type 2 diabetes mellitus with other circulatory complications; I10 Essential (primary) hypertension
CPT/HCPCS: 36415; 72114; 73502; 80053; 80061; 82043; 82570; 83036; 84439; 84443; 85025

== ENCOUNTER 2021-04-20 10:08 | Inpatient (IN) | payer MEDICARE, SELFPAY ==
[2020-01-20 18:07] VITALS: BMI 48.8
[2021-04-20] VITALS (49 sets, daily range): BP systolic 109–150; BP diastolic 55–79; PULSE 48–116; RESP 15–37; TEMP 31–39.4; O2SAT 88–99; BMI 43.9; BMI 46.8
--- NOTE | 2021-04-20 10:14 | DI.RAD.S_ITS ---
PROCEDURE: XR CHEST 1V INDICATIONS: SOB, fever, hypoxemia TECHNIQUE: One view of the chest was acquired. COMPARISON: [facility], CR, XR CHEST 1V, 04/25/2020, 11:14. FINDINGS: Surgical changes and devices: None. Lungs and pleura: Extensive airspace opacity in left lung field is seen with near complete opacification of left lower lobe. There is also blunting of left costophrenic angle suggestive of small left pleural effusion. No gross pneumothorax. Pulmonary vascular congestion is seen. No right-sided pleural effusion. Mediastinum: Mediastinal contours appear normal. Heart size is enlarged. Bones and chest wall: No suspicious bony lesions. Overlying soft tissues appear unremarkable. IMPRESSION: Congestive changes and suggestion of extensive left-sided pulmonary infiltrates and atelectasis. Small left pleural effusion. No gross pneumothorax. Dictated by: Josr Silva M.D. on 04/20/2021 at 11:09 Approved by: Josr Silva M.D. on 04/20/2021 at 11:15
--- NOTE | 2021-04-20 10:25 | ED.SOB ---
HPI - SOB/Dyspnea General Chief Complaint: Fever Stated Complaint: SOB Time Seen by Provider: 04/20/21 10:11 History of Present Illness HPI Narrative: 71-year-old female nonsmoker with extensive medical history including recent bout of pneumonia treated as an outpatient, CHF, asthma presents by EMS for increasing and severe shortness of breath over the past few days. She is managed by infectious disease and pulmonology at [facility], she had been receiving imipenem through the IV for 2 weeks and had been doing fine and well for the past 3 weeks. She went out with some friends last night over the course of the night became increasingly short of breath and febrile. On their arrival they found her in significant respiratory distress with pulse ox in the 70s. She was put on a non-rebreather in by her arrival was in the mid to low 90s with and improvement in work of breathing. Related Data Home Medications Medication Instructions Recorded Confirmed budesonide 0.5 mg/2 mL suspension 0.5 mg INH BIDP #0 05/21/12 01/28/20 for nebulization (Pulmicort) docusate sodium 250 mg capsule 500 mg PO BEDTIME #0 05/21/12 01/28/20 guaifenesin 1,200 mg tablet, 1,200 mg PO Q12H #0 06/06/17 01/28/20 extended release 12 hr (Mucinex) polyethylene glycol 3350 17 17 gm PO DAILY PRN #0 06/06/17 01/28/20 gram/dose oral powder (Miralax) albuterol sulfate 90 mcg/actuation 2 puff INHALATION Q4-6H PRN 05/29/19 01/28/20 aerosol inhaler aspirin 81 mg tablet,delayed 81 mg PO DAILY 05/29/19 01/28/20 release cholecalciferol (vitamin D3) 50 2,000 unit PO DAILY 05/29/19 01/28/20 mcg (2,000 unit) tablet ferrous sulfate 325 mg (65 mg 325 mg PO DAILY 05/29/19 01/28/20 iron) tablet fluticasone 500 mcg-salmeterol 50 1 inhalation INHALATION BID 05/29/19 01/28/20 mcg/dose blistr powdr for inhalation (Advair Diskus) immune glob,gamm(IgG) 10 %-pro-IgA 45 gram IV Q3W ml 05/29/19 01/28/20 0 to 50 mcg/mL intravenous solution (Privigen) nortriptyline 25 mg capsule 25 mg PO QPM 05/29/19 01/28/20 prednisone 10 mg tablet 5 mg PO [facility] tab 05/29/19 01/28/20 spironolactone 50 mg tablet 50 mg PO DAILY 05/29/19 01/28/20 tizanidine 4 mg capsule 4 mg PO TID PRN 05/29/19 01/28/20 fluticasone propionate 50 1 spray NASAL BID PRN 05/31/19 01/28/20 mcg/actuation nasal spray,suspension (Flonase Allergy Relief) gabapentin 600 mg tablet 600 mg PO TID 06/05/19 01/28/20 sodium chloride 3 % for 3 ml INHALATION DIRECTED 06/05/19 01/28/20 nebulization cetirizine 10 mg capsule (Zyrtec) 10 mg PO DAILY 01/20/20 01/28/20 epinephrine 0.3 mg/0.3 mL See Rx Instructions .ROUTE 01/20/20 01/28/20 injection, auto-injector (EpiPen) .COMPLEX PRN hydrocodone 10 mg-acetaminophen 1 tab PO TID 01/20/20 01/28/20 325 mg tablet lovastatin 40 mg tablet 80 mg PO QPM 01/20/20 01/28/20 montelukast 10 mg tablet 10 mg PO BEDTIME 01/20/20 01/28/20 (Singulair) buprenorphine HCl 150 mcg buccal 150 mcg BUCCAL Q12H 12/14/20 film (Belbuca) Previous Rx's Medication Instructions Recorded ondansetron HCl 4 mg tablet 4 mg PO Q8H PRN #30 tab 10/06/19 (Zofran) insulin glargine 100 unit/mL 40 unit (0.4 mL) SUBCUT DAILY #40 12/05/19 subcutaneous solution ml dexamethasone sodium phosphate 4 4 mg IM ONCE #16 ml 01/28/20 mg/mL injection syringe verio reflect glucometer #1 ea 01/28/20 furosemide 20 mg tablet (Lasix) 20 mg PO DAILY #90 tab 03/22/20 insulin syringe-needle U-100 0.5 #100 ea 03/30/20 mL 31 gauge x 5/16 (BD Insulin Syringe Ultra-Fine) furosemide 20 mg tablet (Lasix) 40 mg PO DAILY #6 tab 04/25/20 insulin lispro 100 unit/mL 4 unit (0.04 mL) SUBCUT TID #15 ml 04/28/20 subcutaneous pen (Humalog KwikPen (U-100) Insulin) clonidine HCl 0.1 mg tablet 0.1 mg PO BID #180 tab 08/05/20 losartan 50 mg tablet 50 mg PO DAILY #90 tab 08/05/20 metformin 1,000 mg tablet 1,000 mg PO BID #180 tab 09/03/20 levothyroxine 75 mcg tablet 75 mcg PO DAILY #90 tab 02/21/21 (Synthroid) pramipexole 0.5 mg tablet 0.5 mg PO BEDTIME #15 tab 02/28/21 Allergies Allergy/AdvReac Type Severity Reaction Status Date / Time hydroxychloroquine Allergy Unknown Verified 04/20/21 10:53 [HYDROXYCHLOROQUINE] promethazine [From Phenergan] Allergy Agitated Verified 04/20/21 10:53 cefepime AdvReac Severe pruritis Verified 04/20/21 10:53 Review of Systems Review of Systems Narrative: GENERAL: Denies chills, fatigue, malaise, fever, sweats. HEENT: Denies sinus pain, ear pain, sore throat, difficulty swallowing, dizziness. RESPIRATORY: See HPI CARDIOVASCULAR: Denies chest pain, palpitations, orthopnea, edema, GASTROINTESTINAL: Denies nausea, vomiting, abdominal pain, diarrhea, constipation, melena. : Denies dysuria, frequency, incontinence, hematuria, urinary retention. MUSCULOSKELETAL: denies weakness, joint pain, or bony pain SKIN: Denies rash, skin lesions, or other NEUROLOGIC: Denies weakness, headache, numbness, change in speech, confusion, seizures, incoordination. PSYCHIATRIC: No concerning psychosocial issues. 12 point review of systems is negative except for those stated above Patient History Medical History Abnormal chest xray (~1979) Anemia Ankle pain Asthma (~1959) Bronchiectasis (~2006) Cervical spine disease Chronic back pain Colon polyps (~2015) Degenerative joint disease of spine (~2001) Diabetes mellitus, type II (~2009) Eczema Fibromyalgia Foot pain Hoarseness Hyperlipidemia Hypertension Hypothyroidism Migraines (~1964) 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 Osteopenia Pneumonia Pneumonia Recurrent sinusitis (~1970) Restless leg syndrome Shoulder pain (~03/2018) Sleep apnea Wears glasses Surgical History Anesthesia History of carpal tunnel release History of cataract removal with insertion of prosthetic lens (~2014) History of section History of laminectomy (~2002) History of spinal fusion (~2012) History of thumb surgery Family History Father Stroke Mother Hypertension Brother Cerebral aneurysm Prostate cancer Diabetes mellitus Hypertension Stroke Brother Arthritis Hyperlipidemia Hypertension Sister History of kidney cancer Hypertension Grandfather Cancer Grandmother Cancer Other Family history non-contributory Social History household members: spouse Smoking Status: Never smoker alcohol intake: never Smoking Status: Never smoker Substance Use Type: does not use Exam Narrative Exam Narrative: GENERAL: 71 year old patient appears stated age. Well-developed patient, in obvious respiratory distress, on non-rebreather HEAD: Atraumatic. Normocephalic. EYES: Pupils equal round and reactive. Extraocular motions intact. No scleral icterus. No injection or drainage. ENT: Nose without bleeding, purulent drainage. Throat without erythema, tonsillar hypertrophy or exudate. Airway patent. NECK: Trachea midline. Non tender CARDIOVASCULAR: Tachycardic but regular rhythm without murmurs, gallops, or rubs. RESPIRATORY: Wet sounding lungs from the door, mild increased work of breathing, rhonchorous GASTROINTESTINAL: Abdomen soft, non-tender, nondistended. EXTREMITIES: 1+ pitting edema BACK: Nontender without deformity or crepitance. No flank tenderness. NEURO: AOx3. SKIN: No rash or erythema of visible areas Initial Vital Signs Initial Vital Signs: Vital Signs Temperature 100.5 F H 04/20/21 10:20 Pulse Rate 115 H 04/20/21 10:20 Respiratory Rate 34 H 04/20/21 10:20 Blood Pressure 131/64 04/20/21 10:20 Pulse Oximetry 92 04/20/21 10:20 Course Orders Ordered: ED Orders 04/20/21 10:13 Consult to Respiratory Therapy Evaluate & Treat 04/20/21 10:14 XR chest 1V Stat 04/20/21 10:19 EKG-12 Lead Stat 04/20/21 10:20 Blood Culture Stat Complete Blood Count AUTO DIFF Stat 04/20/21 10:33 Arterial Blood Gas Stat 04/20/21 10:58 COVID19 -Nasal swab/Pre-Proc Stat Respiratory Panel (Film Array) Stat 04/20/21 10:59 Urinalysis and Microscopic Stat 04/20/21 12:00 Comprehensive Metabolic Panel Stat D Dimer Stat Lactate (Lactic Acid) Stat Magnesium Stat NT-proBNP (BNP-Adult 18+) Stat Procalcitonin Stat Troponin & CK Cardiac Panel Stat 04/20/21 12:20 BiPAP Ventilatory Support RT PROTOCOL 04/20/21 12:53 Arterial Blood Gas Stat 04/20/21 13:38 XR chest for PICC 1V Stat 04/20/21 14:09 CT angio chest PE protocol Stat Sodium Chloride (Normal Saline 0.9%) 1,000 mls @ 150 mls/hr IV CONT CARMELO Last Infusion: 04/20/21 14:00 Dose: 500 mls/hr Documented by: Admin: 04/20/21 10:37 Dose: 150 mls/hr Documented by: INDIO Discontinued Medications Levofloxacin (Levaquin) 750 mg in 150 mls @ 100 mls/hr IV NOW ONE Stop: 04/20/21 12:34 Last Infusion: 04/20/21 13:29 Dose: 0 mls/hr Documented by: Admin: 04/20/21 11:29 Dose: 100 mls/hr Documented by: [email or web address] Meropenem 2 gm/ Sodium (Chloride) 100 mls @ 200 mls/hr IV NOW ONE Stop: 04/20/21 13:38 Last Admin: 04/20/21 14:30 Dose: 200 mls/hr Documented by: [email or web address] Ketorolac Tromethamine (Ketorolac 30 Mg/Ml Vial) 10 mg IV NOW ONE Stop: 04/20/21 11:06 Last Admin: 04/20/21 11:28 Dose: 10 mg Documented by: [email or web address] Methylprednisolone (Methylprednisolone 125 Mg/2 Ml Vial) 125 mg IV NOW ONE Stop: 04/20/21 10:14 Last Admin: 04/20/21 10:36 Dose: 125 mg Documented by: BTONER Reevaluation(s) Reevaluation #1: patient placed on bipap and feeling much better, work of breathing is decreased and ABG is slightly improved Reevaluation #2: called to ID at [facility]. Many recent sputum cultures demonstrating different organisms, she recommends Meropenem 2g IVPB. Sputum culture Vital Signs Vital signs: Vital Signs - 8 hr 04/20/21 10:20 04/20/21 10:22 04/20/21 10:30 Temperature 100.5 F H Pulse Rate 115 H 116 H 48 L Respiratory Rate 34 H 33 H Blood Pressure 131/64 150/66 H Pulse Oximetry 92 96 88 L 04/20/21 10:45 04/20/21 11:00 04/20/21 11:15 Temperature 100.6 F H 102.4 F H 102.7 F H Pulse Rate 115 H 112 H 112 H Respiratory Rate 32 H 29 H 32 H Blood Pressure 135/63 135/63 134/63 Pulse Oximetry 98 97 97 04/20/21 11:28 04/20/21 11:30 04/20/21 11:45 Temperature 102.9 F H 102.9 F H 102.9 F H Pulse Rate 113 H 109 H Respiratory Rate 28 H 24 Blood Pressure 129/62 137/56 L Pulse Oximetry 98 98 04/20/21 12:00 04/20/21 12:03 04/20/21 12:04 Temperature 102.7 F H 102.7 F H 102.7 F H Pulse Rate 111 H 111 H 111 H Respiratory Rate 34 H 32 H 30 H Blood Pressure 128/56 L 128/56 L Pulse Oximetry 96 96 96 04/20/21 12:10 04/20/21 12:15 04/20/21 12:20 Temperature 102.7 F H 102.7 F H Pulse Rate 111 H 111 H Respiratory Rate 25 H 26 H Blood Pressure 148/65 H 123/57 L 123/57 L Pulse Oximetry 94 93 04/20/21 12:30 04/20/21 12:45 04/20/21 13:00 Temperature 102.7 F H 102.6 F H 102.6 F H Pulse Rate 110 H 108 H 111 H Respiratory Rate 26 H 27 H 25 H Blood Pressure 132/60 131/60 125/58 L Pulse Oximetry 94 96 97 04/20/21 13:15 04/20/21 13:30 04/20/21 13:45 Temperature 102.4 F H 102.4 F H 102.2 F H Pulse Rate 103 H 100 H 98 H Respiratory Rate 37 H 28 H 25 H Blood Pressure 109/58 L Pulse Oximetry 97 97 97 04/20/21 14:00 Temperature 102.0 F H Pulse Rate 97 H Respiratory Rate 25 H Blood Pressure Pulse Oximetry 97 MDM - SOB/Dyspnea Lab Data Result diagrams: 04/20/21 10:20 04/20/21 12:00 Labs: Lab Results 04/20/21 04/20/21 04/20/21 Range/Units 10:20 10:33 10:58 WBC 14.5 H (4.5-11.0) X10^3/uL RBC 4.83 (4.0-5.2) X10^6/uL Hgb 13.6 (12.0-16.0) g/dL Hct 41.0 (36-46) % MCV 85.0 (80-100) fL MCH 28.1 (26-34) PG MCHC 33.0 (30-36) % RDW 17.0 H (11.6-14.8) % Plt Count 349 (150-400) X10^3/uL Neut % (Auto) 83.7 H (50-75) % Lymph % (Auto) 9.6 L (25-40) % [place] % (Auto) 6.4 (3-14) % Eos % (Auto) 0.0 L (2-4) % Baso % (Auto) 0.3 (0-2) % Neut # (Auto) 07417 H (3157-0883) /uL Lymph # (Auto) 1400 (5309-5689) /uL [place] # (Auto) 900 (0-900) /uL Eos # (Auto) 0 (0-450) /uL Baso # (Auto) 0 (0-100) /uL D-Dimer (<230) ng/mL ABG pH 7.40 (7.35-7.45) ABG pCO2 43.7 (35-45) mmHg ABG pO2 68 L (80-100) mmHg ABG HCO3 27 H (22-26) mmol/L ABG Total CO2 28 (21-31) mmol/L ABG O2 Saturation 93 L (95-100) % ABG Base Excess 2.0 (-2-2) mmol/L FiO2 100 Sodium (137-145) mmol/L Potassium (3.4-5.1) mmol/L Chloride (98-107) mmol/L Carbon Dioxide (22-32) mmol/L BUN (7-17) mg/dL Creatinine (0.52-1.04) mg/dL Estimated GFR (>60) mL/min BUN/Creatinine Ratio (6-22) Glucose (80-110) mg/dL Lactate (0.7-2.1) mmol/L Calcium (8.4-10.2) mg/dL Magnesium (1.6-2.3) mg/dL Total Bilirubin (0.2-1.3) mg/dL AST (14-36) IU/L ALT (<35) IU/L Alkaline Phosphatase (38-126) U/L Total Creatine Kinase (30-135) U/L CK-MB (CK-2) (<2.37) ng/mL CK-MB (CK-2) Rel Index (1.5-5.0) % Troponin I (0.01-0.034) ng/mL NT-Pro-B Natriuret Pep (<125) pg/mL Total Protein (6.3-8.2) g/dL Albumin (3.5-5.0) g/dL Globulin (1.7-4.1) g/dL Albumin/Globulin Ratio (1.0-2.8) Procalcitonin (<0.5) ng/mL Urine Color Urine Appearance Urine pH (4.5-8.0) Ur Specific [place] (1.000-1.035) Urine Protein (Negative) Urine Glucose (UA) (Negative) g/dL Urine Ketones (NEGATIVE) Urine Occult Blood (Negative) Urine Nitrate (Negative) Urine Bilirubin (NEGATIVE) Urine Urobilinogen (0.2) E.U./dL Ur Leukocyte Esterase (NEGATIVE) Urine RBC (0-5/HPF) Urine WBC (0-5/HPF) Urine Bacteria (None) Ur Culture Indicated? Chlamy pneumoniae PCR (Not Detect) Adenovirus (PCR) (Not Detect) B. pertussis DNA (PCR) (Not Detecte) B.parapertussis DNA PCR (Not Detecte) Coronavirus OC43 (PCR) (Not Detect) Coronavirus HKU1 (PCR) (Not Detect) Coronavirus 229E (PCR) (Not Detect) SARS-CoV-2 (PCR) Negative (Negative) Coronavirus NL63 (PCR) (Not Detect) Human Metapneumovir PCR (Not Detect) Influenza Type A (PCR) (Not Detect) Influenza Type B (PCR) (Not Detect) M. pneumoniae (PCR) (Not Detect) Parainfluenza 1 (PCR) (Not Detect) Parainfluenza 2 (PCR) (Not Detect) Parainfluenza 3 (PCR) (Not Detect) Parainfluenza 4 (PCR) (Not Detect) RSV (PCR) (Not Detect) Entero/Rhino (PCR) (Not Detect) 04/20/21 04/20/21 04/20/21 Range/Units 10:58 10:59 12:00 WBC (4.5-11.0) X10^3/uL RBC (4.0-5.2) X10^6/uL Hgb (12.0-16.0) g/dL Hct (36-46) % MCV (80-100) fL MCH (26-34) PG MCHC (30-36) % RDW (11.6-14.8) % Plt Count (150-400) X10^3/uL Neut % (Auto) (50-75) % Lymph % (Auto) (25-40) % [place] % (Auto) (3-14) % Eos % (Auto) (2-4) % Baso % (Auto) (0-2) % Neut # (Auto) (9270-2073) /uL Lymph # (Auto) (5008-1711) /uL [place] # (Auto) (0-900) /uL Eos # (Auto) (0-450) /uL Baso # (Auto) (0-100) /uL D-Dimer 925 H (<230) ng/mL ABG pH (7.35-7.45) ABG pCO2 (35-45) mmHg ABG pO2 (80-100) mmHg ABG HCO3 (22-26) mmol/L ABG Total CO2 (21-31) mmol/L ABG O2 Saturation (95-100) % ABG Base Excess (-2-2) mmol/L FiO2 Sodium (137-145) mmol/L Potassium (3.4-5.1) mmol/L Chloride (98-107) mmol/L Carbon Dioxide (22-32) mmol/L BUN (7-17) mg/dL Creatinine (0.52-1.04) mg/dL Estimated GFR (>60) mL/min BUN/Creatinine Ratio (6-22) Glucose (80-110) mg/dL Lactate (0.7-2.1) mmol/L Calcium (8.4-10.2) mg/dL Magnesium (1.6-2.3) mg/dL Total Bilirubin (0.2-1.3) mg/dL AST (14-36) IU/L ALT (<35) IU/L Alkaline Phosphatase (38-126) U/L Total Creatine Kinase (30-135) U/L CK-MB (CK-2) (<2.37) ng/mL CK-MB (CK-2) Rel Index (1.5-5.0) % Troponin I (0.01-0.034) ng/mL NT-Pro-B Natriuret Pep (<125) pg/mL Total Protein (6.3-8.2) g/dL Albumin (3.5-5.0) g/dL Globulin (1.7-4.1) g/dL Albumin/Globulin Ratio (1.0-2.8) Procalcitonin (<0.5) ng/mL Urine Color Yellow Urine Appearance Clear Urine pH 5.0 (4.5-8.0) Ur Specific [place] 1.025 (1.000-1.035) Urine Protein Negative (Negative) Urine Glucose (UA) Negative (Negative) g/dL Urine Ketones Negative (NEGATIVE) Urine Occult Blood Negative (Negative) Urine Nitrate Negative (Negative) Urine Bilirubin Negative (NEGATIVE) Urine Urobilinogen 0.2 (0.2) E.U./dL Ur Leukocyte Esterase Negative (NEGATIVE) Urine RBC None seen (0-5/HPF) Urine WBC None seen (0-5/HPF) Urine Bacteria None seen (None) Ur Culture Indicated? Cult not indicated Chlamy pneumoniae PCR Not detected (Not Detect) Adenovirus (PCR) Not detected (Not Detect) B. pertussis DNA (PCR) Not detected (Not Detecte) B.parapertussis DNA PCR Not detected (Not Detecte) Coronavirus OC43 (PCR) Not detected (Not Detect) Coronavirus HKU1 (PCR) Not detected (Not Detect) Coronavirus 229E (PCR) Not detected (Not Detect) SARS-CoV-2 (PCR) Not detected (Negative) Coronavirus NL63 (PCR) Not detected (Not Detect) Human Metapneumovir PCR Not detected (Not Detect) Influenza Type A (PCR) Not detected (Not Detect) Influenza Type B (PCR) Not detected (Not Detect) M. pneumoniae (PCR) Not detected (Not Detect) Parainfluenza 1 (PCR) Not detected (Not Detect) Parainfluenza 2 (PCR) Not detected (Not Detect) Parainfluenza 3 (PCR) Not detected (Not Detect) Parainfluenza 4 (PCR) Not detected (Not Detect) RSV (PCR) Not detected (Not Detect) Entero/Rhino (PCR) Not detected (Not Detect) 04/20/21 04/20/21 04/20/21 Range/Units 12:00 12:00 12:53 WBC (4.5-11.0) X10^3/uL RBC (4.0-5.2) X10^6/uL Hgb (12.0-16.0) g/dL Hct (36-46) % MCV (80-100) fL MCH (26-34) PG MCHC (30-36) % RDW (11.6-14.8) % Plt Count (150-400) X10^3/uL Neut % (Auto) (50-75) % Lymph % (Auto) (25-40) % [place] % (Auto) (3-14) % Eos % (Auto) (2-4) % Baso % (Auto) (0-2) % Neut # (Auto) (2266-6724) /uL Lymph # (Auto) (7321-9341) /uL [place] # (Auto) (0-900) /uL Eos # (Auto) (0-450) /uL Baso # (Auto) (0-100) /uL D-Dimer (<230) ng/mL ABG pH 7.39 (7.35-7.45) ABG pCO2 44.6 (35-45) mmHg ABG pO2 70 L (80-100) mmHg ABG HCO3 27 H (22-26) mmol/L ABG Total CO2 28 (21-31) mmol/L ABG O2 Saturation 93 L (95-100) % ABG Base Excess 2.0 (-2-2) mmol/L FiO2 50 Sodium 137 (137-145) mmol/L Potassium 4.2 (3.4-5.1) mmol/L Chloride 102 (98-107) mmol/L Carbon Dioxide 31 (22-32) mmol/L BUN 24 H (7-17) mg/dL Creatinine 1.01 (0.52-1.04) mg/dL Estimated GFR 53.7 L (>60) mL/min BUN/Creatinine Ratio 23.8 H (6-22) Glucose 132 H (80-110) mg/dL Lactate 1.1 (0.7-2.1) mmol/L Calcium 9.2 (8.4-10.2) mg/dL Magnesium 1.6 (1.6-2.3) mg/dL Total Bilirubin 0.4 (0.2-1.3) mg/dL AST 33 (14-36) IU/L ALT 30 (<35) IU/L Alkaline Phosphatase 75 (38-126) U/L Total Creatine Kinase 109 (30-135) U/L CK-MB (CK-2) 0.88 (<2.37) ng/mL CK-MB (CK-2) Rel Index 0.8 L (1.5-5.0) % Troponin I 0.033 (0.01-0.034) ng/mL NT-Pro-B Natriuret Pep 1100 H (<125) pg/mL Total Protein 7.8 (6.3-8.2) g/dL Albumin 3.8 (3.5-5.0) g/dL Globulin 4.0 (1.7-4.1) g/dL Albumin/Globulin Ratio 1.0 (1.0-2.8) Procalcitonin 0.92 H (<0.5) ng/mL Urine Color Urine Appearance Urine pH (4.5-8.0) Ur Specific [place] (1.000-1.035) Urine Protein (Negative) Urine Glucose (UA) (Negative) g/dL Urine Ketones (NEGATIVE) Urine Occult Blood (Negative) Urine Nitrate (Negative) Urine Bilirubin (NEGATIVE) Urine Urobilinogen (0.2) E.U./dL Ur Leukocyte Esterase (NEGATIVE) Urine RBC (0-5/HPF) Urine WBC (0-5/HPF) Urine Bacteria (None) Ur Culture Indicated? Chlamy pneumoniae PCR (Not Detect) Adenovirus (PCR) (Not Detect) B. pertussis DNA (PCR) (Not Detecte) B.parapertussis DNA PCR (Not Detecte) Coronavirus OC43 (PCR) (Not Detect) Coronavirus HKU1 (PCR) (Not Detect) Coronavirus 229E (PCR) (Not Detect) SARS-CoV-2 (PCR) (Negative) Coronavirus NL63 (PCR) (Not Detect) Human Metapneumovir PCR (Not Detect) Influenza Type A (PCR) (Not Detect) Influenza Type B (PCR) (Not Detect) M. pneumoniae (PCR) (Not Detect) Parainfluenza 1 (PCR) (Not Detect) Parainfluenza 2 (PCR) (Not Detect) Parainfluenza 3 (PCR) (Not Detect) Parainfluenza 4 (PCR) (Not Detect) RSV (PCR) (Not Detect) Entero/Rhino (PCR) (Not Detect) Imaging Data CT scan - chest: Radiologist's Impression: Launch?[place] [address] CT Scan Report Signed Patient: Radha Zavaleta MR#: [id number] : 1950 Acct:[id number] Age/Sex: 71 / F Date of Service: 04/20/21 Loc: [facility] Accession Number: [id number] ?? Procedure: CT angio chest PE protocol Ordering Provider: Jose M Smith D.O. PROCEDURE:? CT ANGIO CHEST PE PROTOCOL ? INDICATIONS:? hypoxemia, fever, critical dimer ? TECHNIQUE:? After the administration of intravenous contrast, 2 mm thick sections acquired from the pulmonary apices to the posterior costophrenic angles.? 3-dimensional maximum intensity projection (MIP) coronal and sagittal reformats were then acquired through the thorax.? For radiation dose reduction, the following was used:? automated exposure control, adjustment of mA and/or kV according to patient size.? ? COMPARISON:? [facility], CT, CT ANGIO CHEST PE PROTOCOL, 01/21/2020, 10:42. ? FINDINGS:? Image quality:? Excellent.? ? Pulmonary arteries:? Pulmonary arteries are normal in size, and demonstrate no intraluminal filling defects to suggest central pulmonary embolism.? ? Lungs and pleura:? Bilateral pulmonary infiltrates and consolidation noted particularly in the left lung ? Mediastinum:? Heart size is normal, without pericardial effusion.? No mediastinal or hilar adenopathy.? Thoracic aorta is normal in caliber and enhancement.? Esophagus is normal in caliber, without hiatal hernia.? Left-sided PICC line noted.? Atherosclerotic vascular calcification noted in the aortic arch.? Dense mitral valve annular calcification noted. ? Bones and chest wall:? No suspicious bony lesions.? Ribs and thoracic spine appear intact throughout.? Thyroid gland unremarkable.? No axillary or supraclavicular adenopathy.? ? Abdomen:? Visualized upper abdominal solid organs appear normal in the early arterial phase of enhancement.? Moderate fecal debris in the colon ? IMPRESSION:? ? 1. No evidence of pulmonary embolism, aortic dissection or aneurysm. ? 2. Patchy bilateral pulmonary infiltrates and consolidation noted particularly in the left lung.? ? ? Approved by: Leon Bishop M.D. on 04/20/2021 at 14:23? Critical Care Time Critical Care Time Critical Care Time: Yes Total Critical Care Time: 45 Attestation: The high probability of a clinically significant, sudden or life threatening deterioration of the [CV] system(s) required my full and direct attention, intervention and personal management. The aggregate critical care time was [45] minutes. This time is in addition to time spent performing reported procedures but includes the following: [x] Data Review and interpretation [x] Patient assessment and monitoring of vital signs [x] Documentation [x] Medication orders and management Discharge Plan Departure Patient Disposition: Admitted As Inpatient Clinical Impression: Acute hypoxemic respiratory failure, Pneumonia Admit Date/Time: 04/20/21 14:13 Admit Provider: Gilmer Evangelista
[2021-04-20] MEDS: methylPREDNISolone 125 MG/2 ML VIAL IV (10:36)
[2021-04-20] MEDS: SODIUM CHLORIDE 0.9% 1,000 ML 150 ML IV (10:37)
[2021-04-20 10:39] LABS: Add Manual Diff / Slide Review NO; Basophils Absolute Auto 0 /uL (0-100); Basophils Percent Auto 0.3 % (0-2); Eosinophils Absolute Auto 0 /uL (0-450); Hemoglobin 13.6 g/dL (12.0-16.0); Lymphocytes Absolute Auto 1400 /uL (1100-4500); Lymphocytes Percent Auto 9.6 % (25-40); Mean Corpuscular Hemoglobin 28.1 PG (26-34); Monocytes Absolute Auto 900 /uL (0-900); Monocytes Percent Auto 6.4 % (3-14); Neutrophils Absolute Auto 12100 /uL (1500-7000); Neutrophils Percent Auto 83.7 % (50-75); Platelet Count 349 X10^3/uL (150-400); Red Blood Cell Count 4.83 X10^6/uL (4.0-5.2); White Blood Cell Count 14.5 X10^3/uL (4.5-11.0)
[2021-04-20 11:15] LABS: COVID19 -Nasal RAPID Negative (Negative)
[2021-04-20] MEDS: KETOROLAC 30 MG/ML VIAL 10 MG IV (11:28)
[2021-04-20] MEDS: levoFLOXacin 750 MG/150 ML PIGGYBACK 100 MG IV (11:29)
[2021-04-20 11:44] LABS: Appearance Urine UA CLEAR; Bilirubin Urine UA NEGATIVE (NEGATIVE); Color Urine UA YELLOW; Glucose Urine UA NEGATIVE (Negative); Ketones Urine UA NEGATIVE (NEGATIVE); Leukocyte Esterase Urine UA NEGATIVE (NEGATIVE); Nitrite Urine UA NEGATIVE (Negative); Occult Blood Urine UA NEGATIVE (Negative); Protein Urine UA NEGATIVE (Negative); Specific Gravity Urine UA 1.025 (1.000-1.035); Urobilinogen Urine UA 0.2 E.U./dL (0.2)
[2021-04-20 11:59] LABS: Bacteria Urine None Seen; Culture Indicated Urine Cult Not Indicated; RBC Urine None Seen (0-5/HPF); WBC Urine None Seen (0-5/HPF)
[2021-04-20 12:00] LABS: Adenovirus Not Detected (Not Detect); B. parapertussis Not Detected (Not Detecte); Bordetella pertussis Not Detected (Not Detecte); Chlamydophila pneumoniae Not Detected (Not Detect); Coronavirus 229E Not Detected (Not Detect); Coronavirus HKU1 Not Detected (Not Detect); Coronavirus NL 63 Not Detected (Not Detect); Coronavirus OC43 Not Detected (Not Detect); Human Metapneumovirus Not Detected (Not Detect); Human Rhinovirus/Enterovirus Not Detected (Not Detect); Influenza A Not Detected (Not Detect); Influenza B Not Detected (Not Detect); Mycoplasma pneumoniae Not Detected (Not Detect); Parainfluenza Virus 1 Not Detected (Not Detect); Parainfluenza Virus 2 Not Detected (Not Detect); Parainfluenza Virus 3 Not Detected (Not Detect); Parainfluenza Virus 4 Not Detected (Not Detect); Respiratory Syncytial Virus Not Detected (Not Detect); SARS- CoV-2 Not Detected (Not Detecte)
[2021-04-20 12:23] LABS: D Dimer 925 ng/mL (<230)
[2021-04-20 12:28] LABS: Lactate (Lactic Acid) 1.1 mmol/L (0.7-2.1)
[2021-04-20 12:30] LABS: Alanine Aminotransferase 30 IU/L (<35); Albumin 3.8 g/dL (3.5-5.0); Alkaline Phosphatase 75 U/L (38-126); Aspartate Aminotransferase 33 IU/L (14-36); BUN Creatinine Ratio 23.8 (6-22); Bilirubin Total 0.4 mg/dL (0.2-1.3); Blood Urea Nitrogen 24 mg/dL (7-17); Calcium 9.2 mg/dL (8.4-10.2); Carbon Dioxide 31 mmol/L (22-32); Chloride 102 mmol/L (98-107); Creatine Kinase 109 U/L (30-135); Estimated Glomerular Filt Rate 53.7 mL/min (>60); Glucose 132 mg/dL (80-110); HEMOLYSIS < 15 (0-50); Magnesium 1.6 mg/dL (1.6-2.3); Potassium 4.2 mmol/L (3.4-5.1); Sodium 137 mmol/L (137-145); Total Protein 7.8 g/dL (6.3-8.2)
[2021-04-20 12:33] LABS: Fractionated Inspired Oxygen 100; HCO3 ABG 27 mmol/L (22-26); Oxygen Saturation ABG 93 % (95-100); PCO2 ABG 43.7 mmHg (35-45); PO2 ABG 68 mmHg (80-100); TCO2 ABG 28 mmol/L (21-31)
[2021-04-20 12:42] LABS: NT-proBNP (BNP-Adult 18+) 1100 pg/mL (<125); Troponin I 0.033 ng/mL (0.01-0.034)
[2021-04-20 12:45] LABS: CKMB % Relative Index 0.8 % (1.5-5.0); Creatine Kinase MB 0.88 ng/mL (<2.37)
[2021-04-20 12:46] LABS: Procalcitonin 0.92 ng/mL (<0.5)
[2021-04-20 13:06] LABS: Fractionated Inspired Oxygen 50; HCO3 ABG 27 mmol/L (22-26); Oxygen Saturation ABG 93 % (95-100); PCO2 ABG 44.6 mmHg (35-45); PO2 ABG 70 mmHg (80-100); TCO2 ABG 28 mmol/L (21-31); pH ABG 7.39 (7.35-7.45)
--- NOTE | 2021-04-20 13:38 | DI.RAD.S_ITS ---
PROCEDURE: XR CHEST FOR PICC 1V INDICATIONS: PICC PLACEMENT COMPARISON: [facility], CR, XR CHEST 1V, 04/20/2021, 10:45. FINDINGS: PICC was placed by the intravenous therapy team from the left side. Fluoroscopic spot film demonstrates the tip of PICC projecting to the area of subclavian to the left of midline. Unchanged appearance of bilateral pulmonary opacities with effusion in the left base. IMPRESSION: Tip of PICC projects to the area of subclavian vasculature to the left of midline. As clinically indicated, more distal placement is recommended. Dictated by: Melony Boss M.D. on 04/20/2021 at 14:20 Approved by: Melony Boss M.D. on 04/20/2021 at 14:21
--- NOTE | 2021-04-20 14:09 | DI.CT.S_ITS ---
PROCEDURE: CT ANGIO CHEST PE PROTOCOL INDICATIONS: hypoxemia, fever, critical dimer TECHNIQUE: After the administration of intravenous contrast, 2 mm thick sections acquired from the pulmonary apices to the posterior costophrenic angles. 3-dimensional maximum intensity projection (MIP) coronal and sagittal reformats were then acquired through the thorax. For radiation dose reduction, the following was used: automated exposure control, adjustment of mA and/or kV according to patient size. COMPARISON: [facility], CT, CT ANGIO CHEST PE PROTOCOL, 01/21/2020, 10:42. FINDINGS: Image quality: Excellent. Pulmonary arteries: Pulmonary arteries are normal in size, and demonstrate no intraluminal filling defects to suggest central pulmonary embolism. Lungs and pleura: Bilateral pulmonary infiltrates and consolidation noted particularly in the left lung Mediastinum: Heart size is normal, without pericardial effusion. No mediastinal or hilar adenopathy. Thoracic aorta is normal in caliber and enhancement. Esophagus is normal in caliber, without hiatal hernia. Left-sided PICC line noted. Atherosclerotic vascular calcification noted in the aortic arch. Dense mitral valve annular calcification noted. Bones and chest wall: No suspicious bony lesions. Ribs and thoracic spine appear intact throughout. Thyroid gland unremarkable. No axillary or supraclavicular adenopathy. Abdomen: Visualized upper abdominal solid organs appear normal in the early arterial phase of enhancement. Moderate fecal debris in the colon IMPRESSION: 1. No evidence of pulmonary embolism, aortic dissection or aneurysm. 2. Patchy bilateral pulmonary infiltrates and consolidation noted particularly in the left lung. Approved by: Leon Bishop M.D. on 04/20/2021 at 14:23
[2021-04-20] MEDS: MEROPENEM 2 GM in SODIUM CHLORIDE 0.9% 100 ML 200 ML IV (14:30)
[2021-04-20] MEDS: DOXYCYCLINE 100 MG in SODIUM CHLORIDE 0.9% 100 ML IV (18:40)
--- NOTE | 2021-04-20 18:40 | P.HP_ITS ---
History of Present Illness History of Present Illness Date Patient Seen: 04/20/21 Chief complaint: SOB Narrative: THIS IS A 71-YEAR-OLD FEMALE MORBIDLY OBESE WITH AN EXTENSIVE PAST MEDICAL HISTORY INCLUDING MULTIPLE BOUT WITH PSEUDOMONAS AND MRSA PNEUMONIA. PATIENT IS BEING FOLLOWED BY INFECTIOUS DISEASE AND PULMONOLOGY OUTPATIENT PER LAST REPORT FROM HER PROVIDERS, PATIENT HAS BEEN TREATED INHALER ANTIBIOTICS TO SEVERE PNEUMONIA AND BRONCHIECTASIS. PATIENT ALSO HAS COMMON VIABLE IMMUNODEFICIENCY. PATIENT STATED THAT UP TO 24 HOURS AGO, SHE WAS DOING VERY WELL SHE WENT MANY APPOINTMENTS WITH HER WAS ABLE TO AMBULATE ANY SIGNIFICANT ISSUES SHE HAS RECENTLY COMPLETED A COURSE OF MULTIPLE ANTIBIOTICS INCLUDING MEROPENEM SHE WENT TO SLEEP LAST NIGHT IN HER USUAL STATE OF HEALTH HOWEVER IN THE MORNING THE REPORTED THAT WHEN HE CHECKED ON HER AFTER EATING SOME COUGHING. HE FOUND HER TO BE HYPOXIC AND IN MODERATE DISTRESS. EMS WAS CALLED AND PATIENT WAS TAKEN TO THE ER. IN THE ER, A CT SCAN OF THE CHEST WITH CONTRAST DID NOT SHOW SIGN OF PE HOWEVER BILATERAL PNEUMONIA WAS STILL EVIDENT ABG DID NOT SHOW EVIDENCE OF SIGNIFICANT SEED BASE DISORDER. ALTHOUGH SHE WAS HYPOXIC Patient History Medical History Abnormal chest xray (~1979) Anemia Ankle pain Asthma (~1959) Bronchiectasis (~2006) Cervical spine disease Chronic back pain Colon polyps (~2015) Degenerative joint disease of spine (~2001) Diabetes mellitus, type II (~2009) Eczema Fibromyalgia Foot pain Hoarseness Hyperlipidemia Hypertension Hypothyroidism Migraines (~1964) 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 Osteopenia Pneumonia Pneumonia Recurrent sinusitis (~1970) Restless leg syndrome Shoulder pain (~03/2018) Sleep apnea Wears glasses Surgical History Anesthesia History of carpal tunnel release History of cataract removal with insertion of prosthetic lens (~2014) History of section History of laminectomy (~2002) History of spinal fusion (~2012) History of thumb surgery Family & Social History Family History Father Stroke Mother Hypertension Brother Cerebral aneurysm Prostate cancer Diabetes mellitus Hypertension Stroke Brother Arthritis Hyperlipidemia Hypertension Sister History of kidney cancer Hypertension Grandfather Cancer Grandmother Cancer Other Family history non-contributory Social History: household members spouse Safety & Behavioral: Feels Safe in Current Yes Environment Been Physically Hurt or No Threatened By a Person Tobacco & Substance use: Smoking Status Never smoker alcohol intake never Substance Use Type does not use Meds Home Medications and Allergies Home Medications Medication Instructions Recorded Confirmed Type guaifenesin 1,200 mg tablet, 1,200 mg PO Q12H #0 06/06/17 04/20/21 History extended release 12 hr (Mucinex) polyethylene glycol 3350 17 17 gm PO DAILY PRN #0 06/06/17 04/20/21 History gram/dose oral powder (Miralax) albuterol sulfate 90 mcg/actuation 2 puff INHALATION Q4-6H PRN 05/29/19 04/20/21 History aerosol inhaler aspirin 81 mg tablet,delayed 81 mg PO QPM 05/29/19 04/20/21 History release cholecalciferol (vitamin D3) 50 2,000 unit PO DAILY 05/29/19 04/20/21 History mcg (2,000 unit) tablet ferrous sulfate 325 mg (65 mg 325 mg PO DAILY 05/29/19 04/20/21 History iron) tablet immune glob,gamm(IgG) 10 %-pro-IgA 45 gram IV Q3W ml 05/29/19 04/20/21 History 0 to 50 mcg/mL intravenous solution (Privigen) prednisone 10 mg tablet 5 mg PO [facility] tab 05/29/19 04/20/21 History spironolactone 50 mg tablet 50 mg PO DAILY 05/29/19 04/20/21 History tizanidine 4 mg capsule 4 mg PO QID PRN 05/29/19 04/20/21 History fluticasone propionate 50 1 spray NASAL BID PRN 05/31/19 04/20/21 History mcg/actuation nasal spray,suspension (Flonase Allergy Relief) sodium chloride 3 % for 3 ml INHALATION DIRECTED 06/05/19 04/20/21 History nebulization ondansetron HCl 4 mg tablet 4 mg PO Q8H PRN #30 tab 10/06/19 04/20/21 Rx (Zofran) cetirizine 10 mg capsule (Zyrtec) 10 mg PO DAILY 01/20/20 04/20/21 History montelukast 10 mg tablet 10 mg PO BEDTIME 01/20/20 04/20/21 History (Singulair) verio reflect glucometer #1 ea 01/28/20 01/28/20 Rx insulin syringe-needle U-100 0.5 #100 ea 03/30/20 Rx mL 31 gauge x 5/16 (BD Insulin Syringe Ultra-Fine) clonidine HCl 0.1 mg tablet 0.1 mg PO BID #180 tab 08/05/20 04/20/21 Rx losartan 50 mg tablet 50 mg PO DAILY #90 tab 08/05/20 04/20/21 Rx metformin 1,000 mg tablet 1,000 mg PO BID #180 tab 09/03/20 04/20/21 Rx buprenorphine HCl 150 mcg buccal 750 mcg BUCCAL Q12H 12/14/20 04/20/21 History film (Belbuca) pramipexole 0.5 mg tablet 0.5 mg PO BEDTIME #15 tab 02/28/21 04/20/21 Rx atorvastatin 40 mg tablet 40 mg PO BEDTIME 04/20/21 04/20/21 History tmfbplppjs-fpwqekoisudkw-wntiukcf 1 tab PO Q4H PRN 04/20/21 04/20/21 History 50 mg-325 mg-40 mg tablet epinephrine 0.3 mg/0.3 mL 0.3 mg IM Q5-15M PRN 04/20/21 04/20/21 History injection, auto-injector (EpiPen) fluticasone 500 mcg-salmeterol 50 1 inh INHALATION Q12H 04/20/21 04/20/21 History mcg/dose blistr powdr for inhalation (Advair Diskus) furosemide 20 mg tablet (Lasix) 20 mg PO QAM 04/20/21 04/20/21 History guaifenesin 1,200 mg tablet, 1,200 mg PO BID 04/20/21 04/20/21 History extended release 12 hr (Mucinex) insulin glargine 100 unit/mL 30 unit SUBCUT DAILY 04/20/21 04/20/21 History subcutaneous solution insulin lispro 100 unit/mL 4 - 8 unit SUBCUT TID 04/20/21 04/20/21 History subcutaneous pen (Humalog KwikPen (U-100) Insulin) ipratropium 0.5 mg-albuterol 3 mg 3 ml INHALATION BID 04/20/21 04/20/21 History (2.5 mg base)/3 mL nebulization soln ipratropium 0.5 mg-albuterol 3 mg 3 ml INHALATION Q4H PRN 04/20/21 04/20/21 History (2.5 mg base)/3 mL nebulization soln levothyroxine 75 mcg tablet 75 mcg PO QAM 04/20/21 04/20/21 History naproxen sodium 220 mg capsule 220 mg PO BID PRN 04/20/21 04/20/21 History (Aleve) nortriptyline 25 mg capsule 25 mg PO BEDTIME 04/20/21 04/20/21 History oxycodone 10 mg tablet 10 mg PO QID PRN 04/20/21 04/20/21 History pregabalin 200 mg capsule 200 mg PO BID 04/20/21 04/20/21 History tiotropium bromide 18 mcg capsule 1 cap INHALATION DAILY 04/20/21 04/20/21 History with inhalation device (Spiriva with HandiHaler) Allergies Allergy/AdvReac Type Severity Reaction Status Date / Time hydroxychloroquine Allergy Unknown Verified 04/20/21 10:53 [HYDROXYCHLOROQUINE] promethazine [From Phenergan] Allergy Agitated Verified 04/20/21 10:53 cefepime AdvReac Severe pruritis Verified 04/20/21 10:53 Review of Systems Review of Systems Narrative: ALL SYSTEM REVIEWED. NEGATIVE UNLESS NOTED ABOVE IN HPI Exam Vital Signs (past 8 hours): - 04/20/21 10:45 04/20/21 11:00 04/20/21 11:15 Temperature 100.6 F H 102.4 F H 102.7 F H Pulse Rate 115 H 112 H 112 H Respiratory Rate 32 H 29 H 32 H Blood Pressure 135/63 135/63 134/63 Pulse Oximetry 98 97 97 04/20/21 11:28 04/20/21 11:30 04/20/21 11:45 Temperature 102.9 F H 102.9 F H 102.9 F H Pulse Rate 113 H 109 H Respiratory Rate 28 H 24 Blood Pressure 129/62 137/56 L Pulse Oximetry 98 98 04/20/21 12:00 04/20/21 12:03 04/20/21 12:04 Temperature 102.7 F H 102.7 F H 102.7 F H Pulse Rate 111 H 111 H 111 H Respiratory Rate 34 H 32 H 30 H Blood Pressure 128/56 L 128/56 L Pulse Oximetry 96 96 96 04/20/21 12:10 04/20/21 12:15 04/20/21 12:20 Temperature 102.7 F H 102.7 F H Pulse Rate 111 H 111 H Respiratory Rate 25 H 26 H Blood Pressure 148/65 H 123/57 L 123/57 L Pulse Oximetry 94 93 04/20/21 12:30 04/20/21 12:45 04/20/21 13:00 Temperature 102.7 F H 102.6 F H 102.6 F H Pulse Rate 110 H 108 H 111 H Respiratory Rate 26 H 27 H 25 H Blood Pressure 132/60 131/60 125/58 L Pulse Oximetry 94 96 97 04/20/21 13:15 04/20/21 13:30 04/20/21 13:45 Temperature 102.4 F H 102.4 F H 102.2 F H Pulse Rate 103 H 100 H 98 H Respiratory Rate 37 H 28 H 25 H Blood Pressure 109/58 L Pulse Oximetry 97 97 97 04/20/21 14:00 04/20/21 14:15 04/20/21 14:36 Temperature 102.0 F H 101.7 F H 101.1 F H Pulse Rate 97 H 92 H 92 H Respiratory Rate 25 H 18 21 Blood Pressure Pulse Oximetry 97 97 97 04/20/21 14:38 04/20/21 14:45 04/20/21 14:47 Temperature 100.9 F H 100.9 F H Pulse Rate 93 H 90 Respiratory Rate 20 23 Blood Pressure 115/59 L 110/55 L 115/59 L Pulse Oximetry 97 97 04/20/21 15:00 04/20/21 15:15 04/20/21 15:30 Temperature 100.6 F H 100.4 F H 100.2 F H Pulse Rate 85 88 91 H Respiratory Rate 20 17 15 Blood Pressure 118/57 L 128/58 L 120/58 L Pulse Oximetry 98 96 97 04/20/21 15:45 04/20/21 16:00 04/20/21 16:15 Temperature 100.0 F H 100.0 F H 99.9 F H Pulse Rate 90 88 90 Respiratory Rate 16 15 19 Blood Pressure 119/56 L 113/56 L 112/58 L Pulse Oximetry 97 97 97 04/20/21 16:30 04/20/21 16:45 04/20/21 17:00 Temperature 99.7 F H 99.7 F H 99.5 F Pulse Rate 86 85 87 Respiratory Rate 15 16 18 Blood Pressure 116/58 L 122/58 L 125/79 Pulse Oximetry 97 98 98 04/20/21 17:15 04/20/21 17:30 04/20/21 17:45 Temperature 99.5 F 99.5 F 99.5 F Pulse Rate 91 H 81 79 Respiratory Rate 28 H 21 17 Blood Pressure 113/75 113/59 L 113/61 Pulse Oximetry 97 97 97 04/20/21 18:00 Temperature 99.3 F Pulse Rate 84 Respiratory Rate 20 Blood Pressure 133/68 Pulse Oximetry 99 Fraction of Inspired Oxygen 50 Oxygen Delivery Method Nasal Cannula Oxygen Flow Rate 15 Narrative Exam Narrative: NO ACUTE DISTRESS. MORBIDLY OBESE. ABLE TO FINISH A FULL SENTENCE WITHOUT HAVING TO STOP BECAUSE OR SHORTNESS OF BREATH APPEARS STATED AGE. SIGN OF TRAUMA CALM. COOPERATIVE HEAD ATRAUMATIC NORMOCEPHALIC NECK : SUPPLE WITHOUT ADENOPATHY NO CAROTID BRUITS EYE: EOMI, PERRLA, NORMAL CONJUNCTIVA; NO JAUNDICE CHEST: REGULAR RATE. NO RUBS. PMI IS NON DISPLACED. NO MURMURS; NORMAL S1- S2 PULMONARY: SOME WHEEZING APPRECIATED BILATERALLY. CRACKLES ALSO ASSOCIATED BILATERALLY. SIGNIFICANT DECREASED BREATH SOUND AT THE BASES. NO INCREASED DULLNESS TO PERCUSSION. NO PLEURAL RUBS. NO RHONCHI. ABDOMEN: OBESE BUT SOFT. NONTENDER. NONDISTENDED. BOWEL SOUNDS ARE PRESENT IN ALL 4 QUADRANTS. EXTREMITIES: 2+ NONPITTING BILATERAL LOWER EXTREMITY EDEMA.. NO CYANOSIS CLUBBING NOTED. NEURO: CRANIAL NERVES 2-12 GROSSLY INTACT. NO FOCAL NEUROLOGICAL DEFICIT NOTED. MSK: NORMAL RANGE OF MOTION FOR AGE. NO JOINT EFFUSION. NO DEFORMITIES SKIN: FAIR SKIN TURGOR. NO ECCHYMOSIS. .; NO RASHES : NORMAL EXTERNAL GENITALIA. PSYCH : APPROPRIATE MOOD AND AFFECT. ALERT AWAKE ORIENTED X3 Objective Labs Result Diagrams: 04/20/21 10:20 04/20/21 12:00 Labs: Laboratory Results - last 24 hr 04/20/21 04/20/21 04/20/21 10:20 10:33 10:58 WBC 14.5 H RBC 4.83 Hgb 13.6 Hct 41.0 MCV 85.0 MCH 28.1 MCHC 33.0 RDW 17.0 H Plt Count 349 Neut % (Auto) 83.7 H Lymph % (Auto) 9.6 L [place] % (Auto) 6.4 Eos % (Auto) 0.0 L Baso % (Auto) 0.3 Neut # (Auto) 54397 H Lymph # (Auto) 1400 [place] # (Auto) 900 Eos # (Auto) 0 Baso # (Auto) 0 D-Dimer ABG pH 7.40 ABG pCO2 43.7 ABG pO2 68 L ABG HCO3 27 H ABG Total CO2 28 ABG O2 Saturation 93 L ABG Base Excess 2.0 FiO2 100 Sodium Potassium Chloride Carbon Dioxide BUN Creatinine Estimated GFR BUN/Creatinine Ratio Glucose Lactate Calcium Magnesium Total Bilirubin AST ALT Alkaline Phosphatase Total Creatine Kinase CK-MB (CK-2) CK-MB (CK-2) Rel Index Troponin I NT-Pro-B Natriuret Pep Total Protein Albumin Globulin Albumin/Globulin Ratio Procalcitonin Urine Color Urine Appearance Urine pH Ur Specific [place] Urine Protein Urine Glucose (UA) Urine Ketones Urine Occult Blood Urine Nitrate Urine Bilirubin Urine Urobilinogen Ur Leukocyte Esterase Urine RBC Urine WBC Urine Bacteria Ur Culture Indicated? Chlamy pneumoniae PCR Adenovirus (PCR) B. pertussis DNA (PCR) B.parapertussis DNA PCR Coronavirus OC43 (PCR) Coronavirus HKU1 (PCR) Coronavirus 229E (PCR) SARS-CoV-2 (PCR) Negative Coronavirus NL63 (PCR) Human Metapneumovir PCR Influenza Type A (PCR) Influenza Type B (PCR) M. pneumoniae (PCR) Parainfluenza 1 (PCR) Parainfluenza 2 (PCR) Parainfluenza 3 (PCR) Parainfluenza 4 (PCR) RSV (PCR) Entero/Rhino (PCR) 04/20/21 04/20/21 04/20/21 10:58 10:59 12:00 WBC RBC Hgb Hct MCV MCH MCHC RDW Plt Count Neut % (Auto) Lymph % (Auto) [place] % (Auto) Eos % (Auto) Baso % (Auto) Neut # (Auto) Lymph # (Auto) [place] # (Auto) Eos # (Auto) Baso # (Auto) D-Dimer 925 H ABG pH ABG pCO2 ABG pO2 ABG HCO3 ABG Total CO2 ABG O2 Saturation ABG Base Excess FiO2 Sodium Potassium Chloride Carbon Dioxide BUN Creatinine Estimated GFR BUN/Creatinine Ratio Glucose Lactate Calcium Magnesium Total Bilirubin AST ALT Alkaline Phosphatase Total Creatine Kinase CK-MB (CK-2) CK-MB (CK-2) Rel Index Troponin I NT-Pro-B Natriuret Pep Total Protein Albumin Globulin Albumin/Globulin Ratio Procalcitonin Urine Color Yellow Urine Appearance Clear Urine pH 5.0 Ur Specific [place] 1.025 Urine Protein Negative Urine Glucose (UA) Negative Urine Ketones Negative Urine Occult Blood Negative Urine Nitrate Negative Urine Bilirubin Negative Urine Urobilinogen 0.2 Ur Leukocyte Esterase Negative Urine RBC None seen Urine WBC None seen Urine Bacteria None seen Ur Culture Indicated? Cult not indicated Chlamy pneumoniae PCR Not detected Adenovirus (PCR) Not detected B. pertussis DNA (PCR) Not detected B.parapertussis DNA PCR Not detected Coronavirus OC43 (PCR) Not detected Coronavirus HKU1 (PCR) Not detected Coronavirus 229E (PCR) Not detected SARS-CoV-2 (PCR) Not detected Coronavirus NL63 (PCR) Not detected Human Metapneumovir PCR Not detected Influenza Type A (PCR) Not detected Influenza Type B (PCR) Not detected M. pneumoniae (PCR) Not detected Parainfluenza 1 (PCR) Not detected Parainfluenza 2 (PCR) Not detected Parainfluenza 3 (PCR) Not detected Parainfluenza 4 (PCR) Not detected RSV (PCR) Not detected Entero/Rhino (PCR) Not detected 04/20/21 04/20/21 04/20/21 12:00 12:00 12:53 WBC RBC Hgb Hct MCV MCH MCHC RDW Plt Count Neut % (Auto) Lymph % (Auto) [place] % (Auto) Eos % (Auto) Baso % (Auto) Neut # (Auto) Lymph # (Auto) [place] # (Auto) Eos # (Auto) Baso # (Auto) D-Dimer ABG pH 7.39 ABG pCO2 44.6 ABG pO2 70 L ABG HCO3 27 H ABG Total CO2 28 ABG O2 Saturation 93 L ABG Base Excess 2.0 FiO2 50 Sodium 137 Potassium 4.2 Chloride 102 Carbon Dioxide 31 BUN 24 H Creatinine 1.01 Estimated GFR 53.7 L BUN/Creatinine Ratio 23.8 H Glucose 132 H Lactate 1.1 Calcium 9.2 Magnesium 1.6 Total Bilirubin 0.4 AST 33 ALT 30 Alkaline Phosphatase 75 Total Creatine Kinase 109 CK-MB (CK-2) 0.88 CK-MB (CK-2) Rel Index 0.8 L Troponin I 0.033 NT-Pro-B Natriuret Pep 1100 H Total Protein 7.8 Albumin 3.8 Globulin 4.0 Albumin/Globulin Ratio 1.0 Procalcitonin 0.92 H Urine Color Urine Appearance Urine pH Ur Specific [place] Urine Protein Urine Glucose (UA) Urine Ketones Urine Occult Blood Urine Nitrate Urine Bilirubin Urine Urobilinogen Ur Leukocyte Esterase Urine RBC Urine WBC Urine Bacteria Ur Culture Indicated? Chlamy pneumoniae PCR Adenovirus (PCR) B. pertussis DNA (PCR) B.parapertussis DNA PCR Coronavirus OC43 (PCR) Coronavirus HKU1 (PCR) Coronavirus 229E (PCR) SARS-CoV-2 (PCR) Coronavirus NL63 (PCR) Human Metapneumovir PCR Influenza Type A (PCR) Influenza Type B (PCR) M. 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 RECURRENT. LIKELY MIXED GRAM-POSITIVE ALONG WITH GRAM- NEGATIVE BACTERIA SEPSIS. PRESENT ON ARRIVAL LEUKOCYTOSIS. ASSOCIATED WITH INFECTIOUS PROCESS LIKELY ACUTE KIDNEY INJURY. ? PRE RENAL DIABETES TYPE 2. INSULIN-DEPENDENT BRONCHIECTASIS PER HISTORY. AWARE OBESITY HYPOVENTILATORY SYNDROME VERSES LORENE PER HISTORY CHRONIC PAIN SYNDROME. CONTINUE HOME MEDS COMMON VIABLE RENAL DEFICIENCY PLAN PATIENT RECEIVED MEROPENEM WELL LEVAQUIN IN THE ER WILL CONTINUE WITH LEVAQUIN AND DOXYCYCLINE FOR NOW WILL ALSO ADD DIFLUCAN FOR ANTIFUNGAL COVERAGE DUE TO PRIOR HISTORY OF MULTIPLE INFECTION WILL ALSO START ON SOLU-MEDROL PATIENT WILL BE ON DUONEB TREATMENTS Q.4 HOURS WHILE AWAKE ALBUTEROL WILL BE ORDERED NEEDED CONSULT RT FOR AGGRESSIVE PULMONARY TOILETING STRICT ASPIRATION PRECAUTIONS OXYGEN SUPPLEMENT TO MAINTAIN OXYGEN SATURATION ABOVE 90% AT ALL TIMES SPUTUM CULTURES HAS BEEN ORDERED AND WILL BE FOLLOWED CLOSELY WILL CONSULT WITH PULMONOLOGY AND DISEASE FOR RECOMMENDATIONS WILL CONSIDER TRANSFER TO TERTIARY FACILITY FOR HIGHER LEVEL OF CARE IF INDICATED CLINICALLY SERIAL CHEST X-RAY AND ABG TO FOLLOW CLINICALLY PATIENT HAS A HISTORY OF [place], WILL ORDER BIPAP TO BE USED AT NIGHT NEEDED ONLY INCENTIVE SPIROMETER ORDERED FOR PATIENT TO USE A VR WHILE AWAKE DIABETIC DIET ALSO STARTED ON SLIDING SCALE INSULIN CONTINUE HOME LANTUS DOSE CONTINUE HOME MED INDICATED ADDITIONAL MANAGEMENT PER CLINICAL COURSE PROGNOSIS IS GUARDED Time Spent With Patient Critical Care time: I spent a total of [] minutes of critical care time on this patient's care today; this time is exclusive of procedural time.
[2021-04-20] MEDS: methylPREDNISolone 125 MG/2 ML VIAL 60 MG IV (19:52)
[2021-04-20] MEDS: FLUCONAZOLE 200 MG/100 ML PIGGYBACK 100 MG IV (19:53)
[2021-04-20] MEDS: SODIUM CHLORIDE 0.9% FLUSH 10 ML IV ×2 (19:53→20:25)
[2021-04-20] MEDS: OXYCODONE IR 10 MG TABLET PO (20:19)
[2021-04-20] MEDS: TIZANIDINE 4 MG TABLET PO (20:20)
[2021-04-20] MEDS: polyethylene glycoL 3350 17 GM POWD.PACK PO (20:20)
[2021-04-20] MEDS: BENZONATATE 100 MG CAPSULE PO (20:20)
[2021-04-20] MEDS: cloNIDine 0.1 MG TABLET PO (21:22)
[2021-04-20] MEDS: PRAMIPEXOLE 0.25 MG TABLET 0.5 MG PO (21:22)
[2021-04-20] MEDS: PREGABALIN 50 MG CAPSULE 200 MG PO (21:22)
[2021-04-20] MEDS: MONTELUKAST 10 MG TABLET PO (21:22)
[2021-04-20] MEDS: NORTRIPTYLINE HCL 25 MG CAPSULE PO (21:22)
[2021-04-20] MEDS: guaiFENesin ER 600 MG TAB 1200 MG PO (21:22)
[2021-04-20] MEDS: ATORVASTATIN 20 MG TABLET 40 MG PO (21:22)
[2021-04-20] MEDS: INSULIN LISPRO 100 UNIT/ML 3ML VIAL SUBCUT (21:28)
[2021-04-20] MEDS: ALBUTEROL/IPRATROPIUM 3 ML AMPUL INH ×2 (22:06→23:42)
--- NOTE | 2021-04-20 23:47 | PC.NURSE ---
Pt. admitted to room 225 @ 1915, admission was completed by Giuseppe PATRICIA. Denies any dyspnea on 4 liters SPO2 95%. RT was in her room @ 2214 SPO2 still @ 95%. Decreased to 3 liters & sat. 94-95%. Instructed to call for assistance if she needs to get OOB, call light within reach. Will cont. POC & monitor.
[2021-04-21] VITALS (19 sets, daily range): BP systolic 94–129; BP diastolic 43–79; PULSE 75–89; RESP 14–22; TEMP 36–37.2; O2SAT 90–97
[2021-04-21] MEDS: methylPREDNISolone 125 MG/2 ML VIAL 60 MG IV ×4 (01:22→17:58)
[2021-04-21] MEDS: SODIUM CHLORIDE 0.9% FLUSH 10 ML IV ×5 (01:22→21:21)
--- NOTE | 2021-04-21 01:45 | PC.NURSE ---
Pt. has continuos glucose monitoring on her right mid quad of her abdomen.
[2021-04-21 05:04] LABS: Add Manual Diff / Slide Review NO; Basophils Absolute Auto 0 /uL (0-100); Basophils Percent Auto 0.1 % (0-2); Eosinophils Absolute Auto 0 /uL (0-450); Hematocrit 33.7 % (36-46); Hemoglobin 10.9 g/dL (12.0-16.0); Lymphocytes Absolute Auto 500 /uL (1100-4500); Mean Corpuscular HGB Conc 32.4 % (30-36); Mean Corpuscular Hemoglobin 27.6 PG (26-34); Mean Corpuscular Volume 85.2 fL (80-100); Monocytes Absolute Auto 300 /uL (0-900); Monocytes Percent Auto 1.6 % (3-14); Neutrophils Absolute Auto 15800 /uL (1500-7000); Neutrophils Percent Auto 95.3 % (50-75); Platelet Count 285 X10^3/uL (150-400); Red Blood Cell Count 3.96 X10^6/uL (4.0-5.2); Red Cell Distribution Width 17.2 % (11.6-14.8); White Blood Cell Count 16.6 X10^3/uL (4.5-11.0)
[2021-04-21 05:26] LABS: Alanine Aminotransferase 24 IU/L (<35); Albumin 3.2 g/dL (3.5-5.0); Albumin Globulin Ratio 0.9 (1.0-2.8); Alkaline Phosphatase 56 U/L (38-126); Aspartate Aminotransferase 24 IU/L (14-36); BUN Creatinine Ratio 29.5 (6-22); Bilirubin Total 0.3 mg/dL (0.2-1.3); Blood Urea Nitrogen 26 mg/dL (7-17); Carbon Dioxide 28 mmol/L (22-32); Chloride 104 mmol/L (98-107); Estimated Glomerular Filt Rate > 60.0 mL/min (>60); Globulin 3.6 g/dL (1.7-4.1); Glucose 209 mg/dL (80-110); HEMOLYSIS < 15 (0-50); Magnesium 1.7 mg/dL (1.6-2.3); Phosphorous 3.2 mg/dL (2.8-4.1); Potassium 4.5 mmol/L (3.4-5.1); Sodium 134 mmol/L (137-145); Total Protein 6.8 g/dL (6.3-8.2)
[2021-04-21] MEDS: LEVOTHYROXINE 75 MCG TABLET PO (05:59)
[2021-04-21] MEDS: DOXYCYCLINE 100 MG in SODIUM CHLORIDE 0.9% 100 ML IV ×2 (06:00→18:02)
[2021-04-21] MEDS: ALBUTEROL/IPRATROPIUM 3 ML AMPUL INH ×5 (07:27→23:13)
[2021-04-21] MEDS: BUDESONIDE 0.5 MG/2 ML NEB INH ×2 (07:27→19:41)
[2021-04-21] MEDS: INSULIN LISPRO 100 UNIT/ML 3ML VIAL SUBCUT ×4 (09:05→21:09)
[2021-04-21] MEDS: OXYCODONE IR 10 MG TABLET PO (09:06)
[2021-04-21] MEDS: guaiFENesin ER 600 MG TAB 1200 MG PO ×2 (09:06→21:06)
[2021-04-21] MEDS: PREGABALIN 50 MG CAPSULE 200 MG PO ×2 (09:06→21:05)
[2021-04-21] MEDS: LACTOBACILLUS ACIDOPHILUS TABLET 1 EACH PO ×3 (09:06→18:04)
[2021-04-21] MEDS: FERROUS SULFATE 325 MG TABLET PO (09:07)
[2021-04-21] MEDS: cloNIDine 0.1 MG TABLET PO ×2 (09:07→21:06)
[2021-04-21] MEDS: LOSARTAN 50 MG TABLET PO (09:07)
[2021-04-21] MEDS: SPIRONOLACTONE 25 MG TABLET 50 MG PO (09:07)
[2021-04-21] MEDS: ENOXAPARIN 40 MG/0.4 ML SYRINGE SUBCUT ×2 (09:07→21:09)
[2021-04-21] MEDS: CHOLECALCIFEROL (VITAMIN D3) 1,000 UNIT TABLET 2000 UNIT PO (09:08)
[2021-04-21] MEDS: TIZANIDINE 4 MG TABLET PO (09:08)
[2021-04-21] MEDS: INSULIN GLARGINE 100 UNIT/ML 3ML PEN 30 UNIT SUBCUT (09:08)
[2021-04-21] MEDS: LORATADINE 10 MG TABLET PO (09:09)
--- NOTE | 2021-04-21 11:44 | P.PN_ITS ---
Subjective Subjective Date Patient Seen: 04/21/21 Interval history: PATIENT BEING TREATED FOR BILATERAL PNEUMONIA WHICH IS PRESUMED TO BE MRSA AND POSSIBLE IN CONJUNCTION WITH PSEUDOMONAS HAS HISTORY OF MULTIPLE RECURRENT PNEUMONIA. THIS MORNING SHE FEELS MUCH BETTER SHE DENIES ANY INCREASING SHORTNESS OF BREATH NO CHEST PAIN SHE FEELS LIKE SHE IS BE ABLE TO GO HOME PRETTY SOON SHE SLEPT WELL NO DIARRHEA. NO NAUSEA OR VOMITING SPOKE TO PATIENT WITH FAMILY AT BEDSIDE Exam Vital Signs (past 8 hours): - 04/21/21 04:03 04/21/21 05:00 04/21/21 07:27 Temperature 97.6 F Pulse Rate 75 89 Respiratory Rate 20 18 Blood Pressure 117/60 Pulse Oximetry 96 95 97 04/21/21 07:46 04/21/21 07:47 04/21/21 08:00 Temperature Pulse Rate 75 Respiratory Rate 17 Blood Pressure 108/70 Pulse Oximetry 90 L 94 93 04/21/21 10:34 Temperature Pulse Rate 81 Respiratory Rate 18 Blood Pressure Pulse Oximetry 91 Fraction of Inspired Oxygen 50 Oxygen Delivery Method Nasal Cannula Oxygen Flow Rate 1 Narrative Exam Narrative: NO ACUTE DISTRESS.? MORBIDLY OBESE.? ABLE TO FINISH A FULL SENTENCE WITHOUT HAVING TO STOP BECAUSE OR SHORTNESS OF BREATH ?APPEARS STATED AGE.? SIGN OF TRAUMA? CALM.? COOPERATIVE HEAD ATRAUMATIC NORMOCEPHALIC NECK : SUPPLE WITHOUT ADENOPATHY NO CAROTID BRUITS EYE:? EOMI, PERRLA, NORMAL CONJUNCTIVA; NO JAUNDICE CHEST:? REGULAR RATE.? ? NO RUBS.? PMI IS NON DISPLACED.? NO MURMURS; NORMAL S1- S2 PULMONARY: SOME WHEEZING APPRECIATED BILATERALLY.? CRACKLES ALSO ASSOCIATED BILATERALLY.? SIGNIFICANT DECREASED BREATH SOUND AT THE BASES.? NO INCREASED DULLNESS TO PERCUSSION.? NO PLEURAL RUBS.? NO RHONCHI. ABDOMEN: ? OBESE BUT SOFT.? NONTENDER.? NONDISTENDED.? BOWEL SOUNDS ARE PRESENT IN ALL 4 QUADRANTS. ? EXTREMITIES:? 2+ NONPITTING BILATERAL LOWER EXTREMITY EDEMA..? NO CYANOSIS CLUBBING NOTED. NEURO:? CRANIAL NERVES 2-12 GROSSLY INTACT. NO FOCAL NEUROLOGICAL DEFICIT NOTED. MSK:? NORMAL RANGE OF MOTION FOR AGE.? NO JOINT EFFUSION. NO DEFORMITIES SKIN:? FAIR SKIN TURGOR.? NO ECCHYMOSIS. NO RASHES :? NORMAL EXTERNAL GENITALIA. PSYCH :? APPROPRIATE MOOD AND AFFECT.? ALERT AWAKE ORIENTED X3 Objective Labs Result Diagrams: 04/21/21 04:50 04/21/21 04:50 Labs: Laboratory Results - last 24 hr 04/20/21 04/20/21 04/20/21 10:33 10:58 10:59 WBC RBC Hgb Hct MCV MCH MCHC RDW Plt Count Neut % (Auto) Lymph % (Auto) Branch % (Auto) Eos % (Auto) Baso % (Auto) Neut # (Auto) Lymph # (Auto) Branch # (Auto) Eos # (Auto) Baso # (Auto) D-Dimer ABG pH 7.40 ABG pCO2 43.7 ABG pO2 68 L ABG HCO3 27 H ABG Total CO2 28 ABG O2 Saturation 93 L ABG Base Excess 2.0 FiO2 100 Sodium Potassium Chloride Carbon Dioxide BUN Creatinine Estimated GFR BUN/Creatinine Ratio Glucose Lactate Calcium Phosphorus Magnesium Total Bilirubin AST ALT Alkaline Phosphatase Total Creatine Kinase CK-MB (CK-2) CK-MB (CK-2) Rel Index Troponin I NT-Pro-B Natriuret Pep Total Protein Albumin Globulin Albumin/Globulin Ratio Procalcitonin Urine Color Yellow Urine Appearance Clear Urine pH 5.0 Ur Specific [place] 1.025 Urine Protein Negative Urine Glucose (UA) Negative Urine Ketones Negative Urine Occult Blood Negative Urine Nitrate Negative Urine Bilirubin Negative Urine Urobilinogen 0.2 Ur Leukocyte Esterase Negative Urine RBC None seen Urine WBC None seen Urine Bacteria None seen Ur Culture Indicated? Cult not indicated Chlamy pneumoniae PCR Not detected Adenovirus (PCR) Not detected B. pertussis DNA (PCR) Not detected B.parapertussis DNA PCR Not detected Coronavirus OC43 (PCR) Not detected Coronavirus HKU1 (PCR) Not detected Coronavirus 229E (PCR) Not detected SARS-CoV-2 (PCR) Not detected Coronavirus NL63 (PCR) Not detected Human Metapneumovir PCR Not detected Influenza Type A (PCR) Not detected Influenza Type B (PCR) Not detected M. pneumoniae (PCR) Not detected Parainfluenza 1 (PCR) Not detected Parainfluenza 2 (PCR) Not detected Parainfluenza 3 (PCR) Not detected Parainfluenza 4 (PCR) Not detected RSV (PCR) Not detected Entero/Rhino (PCR) Not detected 04/20/21 04/20/21 04/20/21 12:00 12:00 12:00 WBC RBC Hgb Hct MCV MCH MCHC RDW Plt Count Neut % (Auto) Lymph % (Auto) Branch % (Auto) Eos % (Auto) Baso % (Auto) Neut # (Auto) Lymph # (Auto) Branch # (Auto) Eos # (Auto) Baso # (Auto) D-Dimer 925 H ABG pH ABG pCO2 ABG pO2 ABG HCO3 ABG Total CO2 ABG O2 Saturation ABG Base Excess FiO2 Sodium 137 Potassium 4.2 Chloride 102 Carbon Dioxide 31 BUN 24 H Creatinine 1.01 Estimated GFR 53.7 L BUN/Creatinine Ratio 23.8 H Glucose 132 H Lactate 1.1 Calcium 9.2 Phosphorus Magnesium 1.6 Total Bilirubin 0.4 AST 33 ALT 30 Alkaline Phosphatase 75 Total Creatine Kinase 109 CK-MB (CK-2) 0.88 CK-MB (CK-2) Rel Index 0.8 L Troponin I 0.033 NT-Pro-B Natriuret Pep 1100 H Total Protein 7.8 Albumin 3.8 Globulin 4.0 Albumin/Globulin Ratio 1.0 Procalcitonin 0.92 H Urine Color Urine Appearance Urine pH Ur Specific [place] Urine Protein Urine Glucose (UA) Urine Ketones Urine Occult Blood Urine Nitrate Urine Bilirubin Urine Urobilinogen Ur Leukocyte Esterase Urine RBC Urine WBC Urine Bacteria Ur Culture Indicated? Chlamy pneumoniae PCR Adenovirus (PCR) B. pertussis DNA (PCR) B.parapertussis DNA PCR Coronavirus OC43 (PCR) Coronavirus HKU1 (PCR) Coronavirus 229E (PCR) SARS-CoV-2 (PCR) Coronavirus NL63 (PCR) Human Metapneumovir PCR Influenza Type A (PCR) Influenza Type B (PCR) M. pneumoniae (PCR) Parainfluenza 1 (PCR) Parainfluenza 2 (PCR) Parainfluenza 3 (PCR) Parainfluenza 4 (PCR) RSV (PCR) Entero/Rhino (PCR) 04/20/21 04/21/21 04/21/21 12:51 04:50 04:50 WBC 16.6 H RBC 3.96 L Hgb 10.9 L Hct 33.7 L MCV 85.2 MCH 27.6 MCHC 32.4 RDW 17.2 H Plt Count 285 Neut % (Auto) 95.3 H Lymph % (Auto) 3.0 L Branch % (Auto) 1.6 L Eos % (Auto) 0.0 L Baso % (Auto) 0.1 Neut # (Auto) 22875 H Lymph # (Auto) 500 L Branch # (Auto) 300 Eos # (Auto) 0 Baso # (Auto) 0 D-Dimer ABG pH 7.39 ABG pCO2 44.6 ABG pO2 70 L ABG HCO3 27 H ABG Total CO2 28 ABG O2 Saturation 93 L ABG Base Excess 2.0 FiO2 50 Sodium 134 L Potassium 4.5 Chloride 104 Carbon Dioxide 28 BUN 26 H Creatinine 0.88 Estimated GFR > 60.0 BUN/Creatinine Ratio 29.5 H Glucose 209 H Lactate Calcium 9.0 Phosphorus 3.2 Magnesium 1.7 Total Bilirubin 0.3 AST 24 ALT 24 Alkaline Phosphatase 56 Total Creatine Kinase CK-MB (CK-2) CK-MB (CK-2) Rel Index Troponin I NT-Pro-B Natriuret Pep Total Protein 6.8 Albumin 3.2 L Globulin 3.6 Albumin/Globulin Ratio 0.9 L Procalcitonin Urine Color Urine Appearance Urine pH Ur Specific [place] Urine Protein Urine Glucose (UA) Urine Ketones Urine Occult Blood Urine Nitrate Urine Bilirubin Urine Urobilinogen Ur Leukocyte Esterase Urine RBC Urine WBC Urine Bacteria Ur Culture Indicated? Chlamy pneumoniae PCR Adenovirus (PCR) B. pertussis DNA (PCR) B.parapertussis DNA PCR Coronavirus OC43 (PCR) Coronavirus HKU1 (PCR) Coronavirus 229E (PCR) SARS-CoV-2 (PCR) Coronavirus NL63 (PCR) Human Metapneumovir PCR Influenza Type A (PCR) Influenza Type B (PCR) M. 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 Osteopenia Pneumonia Pneumonia Recurrent sinusitis (~1970) Restless leg syndrome Shoulder pain (~03/2018) Sleep apnea Wears glasses Surgical History Anesthesia History of carpal tunnel release History of cataract removal with insertion of prosthetic lens (~2014) History of section History of laminectomy (~2002) History of spinal fusion (~2012) History of thumb surgery Family History Father Stroke Mother Hypertension Brother Cerebral aneurysm Prostate cancer Diabetes mellitus Hypertension Stroke Brother Arthritis Hyperlipidemia Hypertension Sister History of kidney cancer Hypertension Grandfather Cancer Grandmother Cancer Other Family history non-contributory Social History household members: spouse Smoking Status: Never smoker alcohol intake: current Assessment & Plan Assessment & Plan narrative: ?PROBLEM LIST ?ACUTE ON CHRONIC HYPOXIC RESPIRATORY FAILURE. IMPROVED ?BILATERAL PNEUMONIA.? RECURRENT.? PRESUMABLY MRSA AND PSEUDOMONAS COMBINED ?SEPSIS.? PRESENT ON ARRIVAL. RESOLVING ?LEUKOCYTOSIS. ASSOCIATED WITH INFECTIOUS PROCESS LIKELY. ON ANTIBIOTICS ? ACUTE KIDNEY INJURY. ? ?? PRE RENAL. MONITOR CLOSELY ON THE ?DIABETES TYPE 2.? INSULIN-DEPENDENT. STRICT BLOOD SUGAR CONTROL ?BRONCHIECTASIS PER HISTORY.? AWARE. OUTPATIENT MANAGEMENT ?OBESITY HYPOVENTILATORY SYNDROME VERSES LORENE PER HISTORY. NEED SLEEP STUDY ?CHRONIC PAIN SYNDROME.? CONTINUE HOME MEDS ?COMMON VIABLE RENAL DEFICIENCY ?PLAN 04/21 PATIENT CONTINUED TO SHOW CLINICAL IMPROVEMENT NO INDICATION TO ADJUST ANTIBIOTIC THERAPY AT THIS TIME WILL FOLLOW CULTURES CLOSELY REPEAT CHEST X-RAY IN THE MORNING WILL CONSIDER ORDERING AN OVERNIGHT PUKSE OXIMETRY TESTING / SLEEP STUDY IF POSSIBLE TO ARRANGE COULD CONSIDER SWITCHING ANTIBIOTIC TO ZOSYN PER PRIOR SPUTUM CULTURE, PSEUDOMONAS WAS RESISTANT TO LEVAQUIN CONTINUE DOXYCYCLINE HOWEVER OTHERWISE CONTINUE CURRENT MANAGEMENT PREVIOUSLY NOTED BELOW IF PATIENT CONTINUED TO SHOW IMPROVEMENT, SHOULD BE ABLE TO DISCHARGE TO EX 24 HOURS TO HOME WITH HOME HEALTH LIKELY 04/20 ?PATIENT RECEIVED [facility] LEVAQUIN IN THE ER ?WILL CONTINUE WITH LEVAQUIN AND DOXYCYCLINE FOR NOW ?WILL ALSO ADD DIFLUCAN FOR ANTIFUNGAL COVERAGE DUE TO PRIOR HISTORY OF MULTIPLE INFECTION ?WILL ALSO START ON SOLU-MEDROL ?PATIENT WILL BE ON DUONEB TREATMENTS Q.4 HOURS WHILE AWAKE ?ALBUTEROL WILL BE ORDERED NEEDED ?CONSULT? RT FOR AGGRESSIVE PULMONARY TOILETING ?STRICT ASPIRATION PRECAUTIONS ?OXYGEN SUPPLEMENT TO MAINTAIN OXYGEN SATURATION ABOVE 90% AT ALL TIMES ?SPUTUM CULTURES HAS BEEN ORDERED AND WILL BE FOLLOWED CLOSELY ?WILL CONSULT WITH PULMONOLOGY AND DISEASE FOR RECOMMENDATIONS ?WILL CONSIDER TRANSFER TO TERTIARY FACILITY FOR HIGHER LEVEL OF CARE IF INDICATED CLINICALLY ?SERIAL CHEST X-RAY AND ABG TO FOLLOW CLINICALLY ?PATIENT HAS A HISTORY OF LORENE, WILL ORDER BIPAP TO BE USED AT NIGHT NEEDED ONLY ?INCENTIVE SPIROMETER ORDERED FOR PATIENT TO USE? A VR WHILE AWAKE ?DIABETIC DIET ?ALSO STARTED ON SLIDING SCALE INSULIN ?CONTINUE HOME LANTUS DOSE ?CONTINUE HOME MED INDICATED ?ADDITIONAL MANAGEMENT PER CLINICAL COURSE ?PROGNOSIS IS GUARDED Time Spent With Patient Critical Care time: I spent a total of [] minutes of critical care time on this patient's care today; this time is exclusive of procedural time. Quality VTE Deep Vein Thrombosis/Pulmonary Embolism Present on Admission: No
--- NOTE | 2021-04-21 11:48 | CM.DANOTE ---
Patient is a 71 yo female who was admitted on 04/20/21 for SOB. Pt has [facility] for insurance and her PCP is Karin Porter. EMR was reviewed. 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 PT/OT ordered and pending. SW met bedside with pt and spouse (who is a recently retired Ortho PA) and explained role and they confirm they still live at home in [place] and have local supportive family and pt is mostly independent with ADL's at baseline but spouse assists when needed. Pt does not drive but spouse takes pt to appointments. Pt does not feel she will have needs at d/c accept that she just switched her [place] MCR to [facility] for better coverage of her [place] specialist doctors but now just found out that [facility] does not cover the cost of her chronic IV-ID globulin that she receives through [facility] 1x every 3 weeks. Pt loves working with [facility] the past 5 years and is going to call them to see if she changed her AARP to [facility] or [facility] if that would cover her home infusion needs. SW also discussed trying another home infusion company to see if they are contracted for that for home infusion, but pt would really prefer to stay with [facility]. SW also discussed outpt [facility] and pt would be willing to do this through her MD who writes the orders for her infusion if she cannot use [facility]. 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 Plan: SW to follow closely to confirm safe d/c plan to home and any further identified discharge planning needs. MACKENZIE Love Discharge Planning/Care Management CM Discharge Assessment Start: 04/21/21 11:45 Freq: Status: Active Protocol: Document 04/21/21 11:46 BF (Rec: 04/21/21 11:48 BF [id number]) Discharge Planning Assessment Assigned Corn Sheller MACKENZIE Pinto DPOA/Assigned Designee Name spouse Harjeet Zavala Contact Information [phone] Advance Directives? Yes Advance Directives on File No History Provided By Patient,Significant Other, Medical Record Has Patient been admitted in last 30 No days? Prior Living Arrangements House Household Members spouse Type of transporation used prior to Relies on Others admit Independent with ADL's Yes Is patient alert and oriented? Yes Needs Assistance With Home Chores / Shopping Caregiver for Another No DME Already Rented / Owned FWW / Walker Barriers to Discharge No Discharge Plan Home Community Services IV Therapy Transportation Arrangement Spouse bedside and can provide transport home when stable Referrals Initiated None needed Additional Comment Pending PT/OT eval Whiteboard Updated in Patient Room with Yes name and ext. # of Corn Sheller Review Status In Process Please Provide Date Initial DC 04/21/21 Assessment Was Performed Next Review Type Continued Stay Review
--- NOTE | 2021-04-21 12:14 | OT.IP.EVAL ---
Current Diagnoses Sepsis, unspecified organism (04/20/21) Past Medical History (Last Reviewed 04/25/20 @ 11:33 by Joanne Mckoy DO) Abnormal chest xray (~1979) Anemia Ankle pain Asthma (~1959) Bronchiectasis (~2006) Cervical spine disease Chronic back pain Colon polyps (~2015) Degenerative joint disease of spine (~2001) Diabetes mellitus, type II (~2009) Eczema Fibromyalgia Foot pain History of carpal tunnel release History of cataract removal with insertion of prosthetic lens (~2014) History of section History of laminectomy (~2002) History of spinal fusion (~2012) History of thumb surgery Hoarseness Hyperlipidemia Hypertension Hypothyroidism Migraines (~1964) 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 Osteopenia Pneumonia Pneumonia Recurrent sinusitis (~1970) Restless leg syndrome Shoulder pain (~03/2018) Sleep apnea Wears glasses Surgical History (Last Reviewed 04/25/20 @ 11:33 by Joanne Mckoy DO) Anesthesia History of carpal tunnel release History of cataract removal with insertion of prosthetic lens (~2014) History of section History of laminectomy (~2002) History of spinal fusion (~2012) History of thumb surgery Occupational Therapy Inpatient Evaluation/Re-Eval M1 PT/OT-IP Prior Functional Status Start: 04/21/21 09:06 Freq: NEEDED Status: Active Protocol: Document 04/21/21 12:35 MB (Rec: 04/21/21 13:28 [id number]) Medical Review Prior Functional Status Medical History Reviewed Yes Diet/Fluid Consistency Regular Communication Communicates needs Mobility and Gait Typically gait trains with cane Activities of Daily Living and IADL's I to mod I Social History Household Members spouse Living Arrangements House Number of Floors (Floors) One Floor Number of Stairs To Enter/Railing? 2 steps with two grab bars to enter Home Environment High Toilet,Walk in Shower Home Equipment Front Wheel Walker,Four Wheel Walker,Straight Cane,Grab Bars Near Toilet,Grab Bars In Shower Employment Status Retired Additional Social History Comment Pt lives with who is also retired M2 OT-IP Current Condition Start: 04/21/21 13:56 Freq: Status: Active Protocol: Document 04/21/21 11:40 [facility] (Rec: 04/21/21 14:14 [facility] [id number]) Occupational Therapy Current Condition Current Condition Evaluation Date 04/21/21 Treatment Diagnosis Bilateral PNA Diagnosis Onset Date 04/20/21 M3 OT- IP Subjective and Pain Start: 04/21/21 13:56 Freq: Status: Active Protocol: Document 04/21/21 11:40 [facility] (Rec: 04/21/21 14:14 [facility] [id number]) OT- Subjective Occupational Therapy Visit Type Type Initial Evaluation Visit Start Time 11:40 Visit Stop Time 12:14 Total Visit Minutes 34 Occupational Therapy Visit Comments Patient Comments Pt agreed to get up and work with OT. Patient/Caregiver Goals To go home. OT Pain Assessment Pain When Pain Assessed At Rest Pain Present Pain Present Denied Pain M4 OT- IP ADL's Start: 04/21/21 13:56 Freq: Status: Active Protocol: Document 04/21/21 11:40 [facility] (Rec: 04/21/21 14:14 [facility] [id number]) OT [id number] General Evaluation Self-Feeding Ability Independent OT ADL-Grooming Comments OT Grooming Comments Pt able to do after set-up. OT ADL-Dressing Comments OT Dressing Comments Not performed. OT ADL-Toileting Comments OT Toileting Comments Pt not having to go. OT ADL-Bathing Comments OT Bathing Comments Not performed. M5 OT- IP IADL's Start: 04/21/21 13:56 Freq: Status: Active Protocol: Document 04/21/21 11:40 [facility] (Rec: 04/21/21 14:14 [facility] [id number]) OT-Instrumental Activities of Daily Living Home Safety Awareness Awareness of Need for Assistance at Home Good Awareness Ability to Problem Solve Emergency Able to Problem Solve Situations Home Safety Comments Pt has a supportive to be able to assist pt for all needs as needed. M6 OT- IP Functional Cognition Start: 04/21/21 13:56 Freq: Status: Active Protocol: Document 04/21/21 11:40 [facility] (Rec: 04/21/21 14:14 [facility] [id number]) Cognitive Factors Limiting Selfcare Function Cognitive Ability Level of Alertness Alert Patient Orientation Name,Age,Birthday,Month,Date, Year,Day of Week,Place, Situation Attention Span Ability Capable of Focused Attention, Capable of Sustained Attention Ability to Follow Commands Able to Follow Multi-Step Commands Cognitive Comments Cognitive Assessment Comments Pt intact with no cognitive needs. OT- Vision and Hearing OT- Hearing Assessment OT- Hearing Assessment WFL OT- Vision Assessment Visual Acuity Glasses All The Time M7 OT- IP Mobility and Balance Start: 04/21/21 13:56 Freq: Status: Active Protocol: Document 04/21/21 11:40 [facility] (Rec: 04/21/21 14:14 [id number]) OT-Transfer Assessment Sit to and From Stand Sit to and from Stand Standby Assistance Transfers Transfer Ability Standby Assistance Technique Transfer Destination Bed Devices Transfer Assistive Devices Gait Belt,Front Wheeled Walker Comments Mobility Comments Pt mainly needing assist for all tubing management needs. Pt on 1L O2 and at 93% and once O2 off on RA up to 96% and after up in the room with FWW and able to walk in the room dropped to 84% and back up to 88% after one minute and then O2 back on 1L and back up to 92%. OT- Gait Assessment Comments Gait Ability Comments SBA with FWW. Suggested may be best to use her 4ww at home so having to place to sit down as she tires. OT- Balance Assessment Sitting Balance and Reactions Static Sitting Balance Ability Normal Dynamic Sitting Balance Ability Good Standing Balance and Reactions Static Standing Balance Ability Good Dynamic Standing Balance Ability Fair M8 OT- IP Objective Assessments Start: 04/21/21 13:56 Freq: Status: Active Protocol: Document 04/21/21 11:40 [facility] (Rec: 04/21/21 14:14 [id number]) OT Gross Range of Motion Upper Extremity Range of Motion Assessment Within Functional Limits OT Strength Upper Extremity Strength Assessment Within Functional Limits OT-Muscle Tone Assessment Muscle Tone WNL Yes M9 OT- IP Assessment and Plan Start: 04/21/21 13:56 Freq: Status: Active Protocol: Document 04/21/21 11:40 [facility] (Rec: 04/21/21 14:14 [facility] [id number]) OT Summary Assessment and Plan Potential Rehabilitation Potential Excellent Analytic Complexity at Evaluation Low Summary OT Impairments Balance,Functional Mobility, Dressing,Toileting,Bathing, Activity Tolerance Progress Towards Goals Progressing Toward Goals Assessment Summary Pt low complexity and main barrier is decreased activity tolerance and now needing use of O2. Able to give and go over information for energy conservation and fall preventions. Pt to go home with supportive when medically stable. Pt will benefit from pulmonary rehab if she is an appropriate candidate. Goals Grooming Goal Independent Dressing Goal Independent Toileting Goal Independent Bathing Goal Independent Toilet Transfer Goal Independent Shower Transfer Goal Independent Patient/Caregiver Education Goal Demonstrate Energy Conservation and Pacing Days to Meet Goals 3 Frequency of Treatment Frequency Of Treatment Once a Day Treatment Plan OT Treatment Plan ADL Training,Functional Mobility,Patient/Family Education,Discharge Planning Other Treatment Recommendations and Next shower Treatment Focus Discharge Recommendations OT Discharge Recommendations Home with Assistance Transportation Needs at Discharge Private Vehicle
--- NOTE | 2021-04-21 13:06 | RT ---
PATIENT WILL REQUIRE HOME OXYGEN UPON DISCHARGE
[2021-04-21] MEDS: PIPERACILLIN/TAZO 3.375 GM in SODIUM CHLORIDE 0.9% 100 ML 25 ML IV ×2 (13:16→20:00)
--- NOTE | 2021-04-21 13:28 | PT.IIE ---
Current Diagnoses Sepsis, unspecified organism (04/20/21) Surgical History (Last Reviewed 04/25/20 @ 11:33 by Joanne Mckoy DO) Anesthesia Medical History (Last Reviewed 04/25/20 @ 11:33 by Joanne Mckoy DO) Abnormal chest xray (~1979) Anemia Ankle pain Asthma (~1959) Bronchiectasis (~2006) Cervical spine disease Chronic back pain Colon polyps (~2015) Degenerative joint disease of spine (~2001) Diabetes mellitus, type II (~2009) Eczema Fibromyalgia Foot pain Hoarseness Hyperlipidemia Hypertension Hypothyroidism Migraines (~1964) 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 Osteopenia Pneumonia Pneumonia Recurrent sinusitis (~1970) Restless leg syndrome Shoulder pain (~03/2018) Sleep apnea Wears glasses Physical Therapy Inpatient Evaluation/Re-Eval M1 PT/OT-IP Prior Functional Status Start: 04/21/21 09:06 Freq: NEEDED Status: Active Protocol: Document 04/21/21 12:35 MB (Rec: 04/21/21 13:28 MB [id number]) Medical Review Prior Functional Status Medical History Reviewed Yes Diet/Fluid Consistency Regular Communication Communicates needs Mobility and Gait Typically gait trains with cane Activities of Daily Living and IADL's I to mod I Social History Household Members spouse Living Arrangements House Number of Floors (Floors) One Floor Number of Stairs To Enter/Railing? 2 steps with two grab bars to enter Home Environment High Toilet,Walk in Shower Home Equipment Front Wheel Walker,Four Wheel Walker,Straight Cane,Grab Bars Near Toilet,Grab Bars In Shower Employment Status Retired Additional Social History Comment Pt lives with who is also retired M2 PT-IP Current Condition Start: 04/21/21 09:06 Freq: NEEDED Status: Active Protocol: Document 04/21/21 12:35 MB (Rec: 04/21/21 13:28 MB [id number]) Physical Therapy Current Condition Current Condition Evaluation Date 04/21/21 Treatment Diagnosis Debility d/t MRSA PNA M3 PT-IP Subjective Start: 04/21/21 09:06 Freq: NEEDED Status: Active Protocol: Document 04/21/21 12:35 MB (Rec: 04/21/21 13:28 MB [id number]) Subjective Physical Therapy Visit Type Type Initial Evaluation Visit Start Time 12:35 Visit Stop Time 13:05 Total Visit Minutes 30 Number of CHEMICAL LIBRARIAN Visits 0 Physical Therapy Visit Comments Patient Comments Pt states that she is feeling pretty good and the OT got her up earlier. Therapy Pain Assessment Pain When Pain Assessed At Rest Pain Present Pain Present Denied Pain M4 PT-IP Mobility and Gait Start: 04/21/21 09:06 Freq: NEEDED Status: Active Protocol: Document 04/21/21 12:35 MB (Rec: 04/21/21 13:28 MB [id number]) PT-Bed Mobility Assessment Rolling Level of Assist Standby Assistance Sit to Supine Sit to Supine Standby Assistance Scooting Scooting Up and Down in Bed Standby Assistance PT-Transfer Assessment Sit to and From Stand Sit to and from Stand Standby Assistance Equipment Transfer Assistive Device Gait Belt,Front Wheeled Walker Orthotic/Prosthetic Devices or Brace: No Transfers Transfer Destination Bed Transfer Technique Stand Step Pivot Transfer Ability Level of Assist Standby Assistance,1 Person Assistance,Use of Upper Extremities Comments Mobility Comments Pt becomes HORTON. Her BP in right UE in sitting is 102/64 and she has no light- headedness when up. Pt wears 1L nasal cannula. She mobilizes well with transfer from the chair to the bed and getting in the bed with heavy UE use. Gait Assessment Gait Gait Assistance Required: Standby Assistance Distance (Feet) 15 Assistive Devices Assistive Device Gait Belt,Front Wheeled Walker Orthotic/Prosthetic Devices or Brace: No Gait Deviations General Gait Pattern Decreased Stride Length, Decreased Feet Clearance, Flexed Trunk Factors Limiting Gait Function Factors Limiting Gait Function Decreased Strength,Poor Balance Comments Gait Comments Pt gait trains from chair to table where her water is sitting and she is able to drink from straw while holding onto walker in standing without LOB. She has HORTON wearing 1L O2 and sats increase from 94% when sitting to 100% when up. Then, she gait trains to the bed and would like to get back in bed. Nsg arrives and will bring pt an incentive spirometer. Left in bed with needs in reach and nsg and nearby. PT-Balance Assessment Sitting Balance and Reactions Static Sitting Balance Ability Fair Dynamic Sitting Balance Ability Fair Standing Balance and Reactions Static Standing Balance Ability Fair Dynamic Standing Balance Ability Fair Device Used RW M5 PT-IP Objective Assessments Start: 04/21/21 09:06 Freq: NEEDED Status: Active Protocol: Document 04/21/21 12:35 MB (Rec: 04/21/21 13:28 [id number]) Orientation Orientation/Cognition Level of Alertness Alert Orientation Name,Age,Birthday,Month,Date, Year,Day of Week,Place, Situation Language Function Ability No Deficits Noted Safety Awareness Understands Safety Issues Memory Description No Deficits Noted Gross Range of Motion Upper Extremity ROM Assessment Within Functional Limits Lower Extremity ROM Assessment Within Functional Limits Strength Upper Extremity Strength Assessment Within Functional Limits Lower Extremity Strength Assessment Within Functional Limits Sensation Assessment Comments Sensation Comments Pt reports some numbness in her toes M6 PT-IP Treatment Start: 04/21/21 09:06 Freq: NEEDED Status: Active Protocol: Document 04/21/21 12:35 MB (Rec: 04/21/21 13:28 [id number]) Physical Therapy Treatment Education Education Provided Safety Other Treatments Other Treatment Performed Ed pt in benefits of incentive spirometer and nsg going to bring M7 PT-IP Assessment and Plan Start: 04/21/21 09:06 Freq: NEEDED Status: Active Protocol: Document 04/21/21 12:35 MB (Rec: 04/21/21 13:28 [id number]) PT Summary Assessment and Plan Potential Rehabilitation Potential Good Status of Condition at Evaluation Evolving Summary Impairments Strength,Balance,Gait,Activity Tolerance Assessment Summary Pt is a 71 y/o female presenting with HORTON in setting of acute MRSA PNA. She has a history of autoimmune disease, morbid obesity and frequent respiratory illness. She has supportive and lives at home. She denies falls. She wishes to return home at d/c. Will attempt stair training next treatment date. Goals Bed Mobility Goal Independent Transfer Goal Independent Gait Goal Independent Gait Distance 50 Other Goals Ascend and descend 2 steps with rail and CGA to allow safe home entry. Frequency of Treatment Frequency Of Treatment Once a Day Treatment Plan Physical Therapy Treatment Plan Bed Mobility Training,Transfer Training,Gait Training, Therapeutic Exercise,Balance Retraining,Discharge Planning Other Recommendations and Next Treatment Stair and gait training to Focus prepare for d/c Precautions Other Precautions Fall risk, many lines Recommendations To Nursing Amount of Assist Needed 1 Person Assist Discharge Recommendations PT Discharge Recommendations Home with 24/7 Assist Available Transportation Needs at Discharge Private Vehicle
[2021-04-21] MEDS: ASPIRIN EC 81 MG TABLET PO (18:04)
[2021-04-21] MEDS: FLUCONAZOLE 200 MG/100 ML PIGGYBACK 100 MG IV (18:53)
[2021-04-21] MEDS: ATORVASTATIN 20 MG TABLET 40 MG PO (21:06)
[2021-04-21] MEDS: NORTRIPTYLINE HCL 25 MG CAPSULE PO (21:06)
[2021-04-21] MEDS: PRAMIPEXOLE 0.25 MG TABLET 0.5 MG PO (21:07)
[2021-04-21] MEDS: MONTELUKAST 10 MG TABLET PO (21:07)
[2021-04-22] VITALS (17 sets, daily range): BP systolic 120–129; BP diastolic 62–75; PULSE 69–88; RESP 16–24; TEMP 36.4–37.2; O2SAT 92–97
[2021-04-22] MEDS: methylPREDNISolone 125 MG/2 ML VIAL 60 MG IV ×4 (00:23→18:57)
[2021-04-22] MEDS: SODIUM CHLORIDE 0.9% FLUSH 10 ML IV ×5 (00:24→21:06)
[2021-04-22] MEDS: PIPERACILLIN/TAZO 3.375 GM in SODIUM CHLORIDE 0.9% 100 ML 25 ML IV ×3 (04:18→22:06)
[2021-04-22] MEDS: BUTALB/APAP/CAFFEINE 50/325/40 TABLET 1 EACH PO ×2 (04:29→18:57)
[2021-04-22 04:34] LABS: Add Manual Diff / Slide Review NO; Basophils Absolute Auto 0 /uL (0-100); Basophils Percent Auto 0.1 % (0-2); Eosinophils Absolute Auto 0 /uL (0-450); Hematocrit 30.8 % (36-46); Hemoglobin 10.2 g/dL (12.0-16.0); Lymphocytes Absolute Auto 600 /uL (1100-4500); Lymphocytes Percent Auto 4.5 % (25-40); Mean Corpuscular HGB Conc 32.9 % (30-36); Mean Corpuscular Hemoglobin 27.8 PG (26-34); Mean Corpuscular Volume 84.4 fL (80-100); Monocytes Absolute Auto 400 /uL (0-900); Monocytes Percent Auto 2.9 % (3-14); Neutrophils Absolute Auto 11900 /uL (1500-7000); Neutrophils Percent Auto 92.5 % (50-75); Platelet Count 251 X10^3/uL (150-400); Red Blood Cell Count 3.65 X10^6/uL (4.0-5.2); Red Cell Distribution Width 17.3 % (11.6-14.8); White Blood Cell Count 12.9 X10^3/uL (4.5-11.0)
[2021-04-22 04:42] LABS: Alanine Aminotransferase 25 IU/L (<35); Albumin 3.3 g/dL (3.5-5.0); Albumin Globulin Ratio 0.9 (1.0-2.8); Alkaline Phosphatase 56 U/L (38-126); Aspartate Aminotransferase 24 IU/L (14-36); BUN Creatinine Ratio 33.3 (6-22); Bilirubin Total 0.3 mg/dL (0.2-1.3); Blood Urea Nitrogen 31 mg/dL (7-17); Calcium 9.3 mg/dL (8.4-10.2); Carbon Dioxide 27 mmol/L (22-32); Chloride 103 mmol/L (98-107); Estimated Glomerular Filt Rate 59.1 mL/min (>60); Globulin 3.5 g/dL (1.7-4.1); Glucose 292 mg/dL (80-110); HEMOLYSIS < 15 (0-50); Magnesium 1.9 mg/dL (1.6-2.3); Phosphorous 3.3 mg/dL (2.8-4.1); Potassium 4.5 mmol/L (3.4-5.1); Sodium 133 mmol/L (137-145); Total Protein 6.8 g/dL (6.3-8.2)
[2021-04-22] MEDS: SODIUM CHLORIDE 0.9% 250 ML 21 ML IV (05:16)
[2021-04-22] MEDS: DOXYCYCLINE 100 MG in SODIUM CHLORIDE 0.9% 100 ML IV ×2 (05:52→17:45)
[2021-04-22] MEDS: LEVOTHYROXINE 75 MCG TABLET PO (05:52)
[2021-04-22] MEDS: ALBUTEROL/IPRATROPIUM 3 ML AMPUL INH ×5 (06:25→23:50)
[2021-04-22] MEDS: BUDESONIDE 0.5 MG/2 ML NEB INH (06:25)
[2021-04-22] MEDS: CHOLECALCIFEROL (VITAMIN D3) 1,000 UNIT TABLET 2000 UNIT PO (08:22)
[2021-04-22] MEDS: cloNIDine 0.1 MG TABLET PO ×2 (08:22→21:06)
[2021-04-22] MEDS: SPIRONOLACTONE 25 MG TABLET 50 MG PO (08:22)
[2021-04-22] MEDS: guaiFENesin ER 600 MG TAB 1200 MG PO ×2 (08:23→21:05)
[2021-04-22] MEDS: LACTOBACILLUS ACIDOPHILUS TABLET 1 EACH PO ×3 (08:23→17:45)
[2021-04-22] MEDS: LORATADINE 10 MG TABLET PO (08:23)
[2021-04-22] MEDS: PREGABALIN 50 MG CAPSULE 200 MG PO ×2 (08:23→21:05)
[2021-04-22] MEDS: LOSARTAN 50 MG TABLET PO (08:23)
[2021-04-22] MEDS: FERROUS SULFATE 325 MG TABLET PO (08:23)
[2021-04-22] MEDS: FLUTICASONE 120 SPRAY/16 GM SPRAY.SUSP NASAL (08:24)
[2021-04-22] MEDS: ENOXAPARIN 40 MG/0.4 ML SYRINGE SUBCUT ×2 (08:25→21:05)
[2021-04-22] MEDS: INSULIN LISPRO 100 UNIT/ML 3ML VIAL SUBCUT ×4 (08:26→21:07)
[2021-04-22] MEDS: INSULIN GLARGINE 100 UNIT/ML 3ML PEN 30 UNIT SUBCUT (08:27)
--- NOTE | 2021-04-22 11:01 | OT.IPNOTE ---
Touched base with pt and pt states has been able to go to the bathroom on her own and able to do other ADL needs on her own. Pt not wanting to shower and states to shower at home. Pt has no other OT needs as pt has a very supportive to be able to assist her. Discharge pt for Ot services. NO charge
--- NOTE | 2021-04-22 11:24 | PC.NURSE ---
Addendum entered by Yuki Medina R.N. 04/22/21 17:00: Patient had an episode of being incontinent, she has been cleaned up. She is going to discharge either sunday or sunday with home iv antibiotics [facility]. Patient is on 2l of oxygen and her sats have been 94%. Original Note: Patients lung sounds with wheezes through out, she denies pain. Patient has an intermitant cough. New Sputum culture put in, patient does not have to be here for results. at bedside and patient is resting comfortably.
--- NOTE | 2021-04-22 12:02 | PT-IP ANOTE ---
Attempted to see pt at 12:02 PM, pt refused therapy stating she has no needs and plans to continue outpatient therapy when appropriate.
--- NOTE | 2021-04-22 12:41 | P.DS_ITS ---
History of Present Illness History of Present Illness Chief complaint: SOB Narrative: THIS IS A 71-YEAR-OLD FEMALE MORBIDLY OBESE WITH AN EXTENSIVE PAST MEDICAL HISTORY INCLUDING MULTIPLE BOUT WITH PSEUDOMONAS AND MRSA PNEUMONIA. PATIENT IS BEING FOLLOWED BY INFECTIOUS DISEASE AND PULMONOLOGY OUTPATIENT PER LAST REPORT FROM HER PROVIDERS, PATIENT HAS BEEN TREATED INHALER ANTIBIOTICS TO SEVERE PNEUMONIA AND BRONCHIECTASIS. PATIENT ALSO HAS COMMON VIABLE IMMUNODEFICIENCY. PATIENT STATED THAT UP TO 24 HOURS AGO, SHE WAS DOING VERY WELL SHE WENT MANY APPOINTMENTS WITH HER WAS ABLE TO AMBULATE ANY SIGNIFICANT ISSUES SHE HAS RECENTLY COMPLETED A COURSE OF MULTIPLE ANTIBIOTICS INCLUDING MEROPENEM SHE WENT TO SLEEP LAST NIGHT IN HER USUAL STATE OF HEALTH HOWEVER IN THE [facility] THE REPORTED THAT WHEN HE CHECKED ON HER AFTER EATING SOME COUGHING. HE FOUND HER TO BE HYPOXIC AND IN MODERATE DISTRESS. EMS WAS CALLED AND PATIENT WAS TAKEN TO THE ER. IN THE ER, A CT SCAN OF THE CHEST WITH CONTRAST DID NOT SHOW SIGN OF PE HOWEVER BILATERAL PNEUMONIA WAS STILL EVIDENT ABG DID NOT SHOW EVIDENCE OF SIGNIFICANT SEED BASE DISORDER. ALTHOUGH SHE WAS HYPOXIC Discharge Providers Provider Date of admission: 04/20/21 14:13 Discharge Date: 04/22/21 Primary care physician: Karin Porter MD Consults: 04/20/21 10:13 Consult to Respiratory Therapy Evaluate & Treat Comment: Physician Instructions: Evaluate and treat 04/20/21 17:45 Consult to Discharge Planning Routine Comment: Consult to Occupational Therapy Evaluate & Treat Comment: Physician Instructions: Evaluate and treat Consult to Physical Therapy Evaluate & Treat Comment: Physician Instructions: Evaluate and Treat Discharge provider: Gilmer Evangelista, Summary Hospital Course Discharge Diagnosis: ?ACUTE ON CHRONIC HYPOXIC RESPIRATORY FAILURE ?BILATERAL PNEUMONIA.? RECURRENT.? LIKELY? MIXED GRAM-POSITIVE ALONG WITH GRAM- NEGATIVE BACTERIA ?SEPSIS.? PRESENT ON ARRIVAL ?LEUKOCYTOSIS. ASSOCIATED WITH INFECTIOUS PROCESS LIKELY ? ACUTE KIDNEY INJURY. ? ?? PRE RENAL ?DIABETES TYPE 2.? INSULIN-DEPENDENT ?BRONCHIECTASIS PER HISTORY.? AWARE ?OBESITY HYPOVENTILATORY SYNDROME VERSES LORENE PER HISTORY ?CHRONIC PAIN SYNDROME.? CONTINUE HOME MEDS ?COMMON VIABLE RENAL DEFICIENCY Hospital Course: PATIENT ADMITTED WITH RECURRENT PNEUMONIA. SHE HAS AN EXTENSIVE HISTORY OF MULTIPLE BOUTS WITH PNEUMONIA INCLUDING STAPHYLOCOCCI S WELL PSEUDOMONAS. SHE WAS TREATED DURING THIS ADMISSION WITH IV ZOSYN WHICH WILL BE CONTINUED FOR 21 DAYS ON DISPOSITION PATIENT ALSO BE CONTINUED ON DOXYCYCLINE AND DIFLUCAN FOR 3 WEEKS WELL FOR BROADER COVERAGE SHE IS BEING FOLLOWED OUTPATIENT PULMONOLOGY AND INFECTIOUS DISEASE SHE WILL NEED TO FOLLOW UP WITH THOSE PROVIDERS FOR ADDITIONAL MANAGEMENT CLINICALLY INDICATED SPUTUM CULTURE WILL BE SENT AND COULD BE FOLLOWED BY DOSE PROVIDERS ON FOLLOW- UP VISIT. OTHERWISE SHE APPEARS TO BE PROGRESSING BACK TO HER BASELINE AT THIS TIME. I SPOKE TO PATIENT WITH AT BEDSIDE TO MY VISIT QUESTIONS AND CONCERNS ADDRESSED 12 EVALUATE IN THE ROOM SATISFACTION AND UNDERSTANDING Status at Discharge Cognitive/behavioral status at discharge: oriented Functional status at discharge: independent ambulation Overall status at discharge: patient is progressing back to baseline Time Spent with Patient Time spent: Greater than 30 minutes Exam Vital Signs (past 8 hours): - 04/22/21 06:25 04/22/21 06:35 04/22/21 06:45 Temperature Pulse Rate 82 87 85 Respiratory Rate 22 21 22 Blood Pressure Pulse Oximetry 94 94 93 04/22/21 06:50 04/22/21 08:00 04/22/21 11:05 Temperature 98.0 F Pulse Rate 81 88 73 Respiratory Rate 22 20 24 Blood Pressure 128/73 Pulse Oximetry 94 93 96 Fraction of Inspired Oxygen 50 Oxygen Delivery Method Room Air Oxygen Flow Rate 2 Objective Labs Result Diagrams: 04/22/21 04:20 04/22/21 04:20 Labs: Laboratory Results - last 24 hr 04/22/21 04/22/21 04:20 04:20 WBC 12.9 H RBC 3.65 L Hgb 10.2 L Hct 30.8 L MCV 84.4 MCH 27.8 MCHC 32.9 RDW 17.3 H Plt Count 251 Neut % (Auto) 92.5 H Lymph % (Auto) 4.5 L [place] % (Auto) 2.9 L Eos % (Auto) 0.0 L Baso % (Auto) 0.1 Neut # (Auto) 54194 H Lymph # (Auto) 600 L [place] # (Auto) 400 Eos # (Auto) 0 Baso # (Auto) 0 Sodium 133 L Potassium 4.5 Chloride 103 Carbon Dioxide 27 BUN 31 H Creatinine 0.93 Estimated GFR 59.1 L BUN/Creatinine Ratio 33.3 H Glucose 292 H Calcium 9.3 Phosphorus 3.3 Magnesium 1.9 Total Bilirubin 0.3 AST 24 ALT 25 Alkaline Phosphatase 56 Total Protein 6.8 Albumin 3.3 L Globulin 3.5 Albumin/Globulin Ratio 0.9 L [facility] Medical History Abnormal chest xray (~1979) Anemia Ankle pain Asthma (~1959) Bronchiectasis (~2006) Cervical spine disease Chronic back pain Colon polyps (~2015) Degenerative joint disease of spine (~2001) Diabetes mellitus, type II (~2009) Eczema Fibromyalgia Foot pain Hoarseness Hyperlipidemia Hypertension Hypothyroidism Migraines (~1964) 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 Osteopenia Pneumonia Pneumonia Recurrent sinusitis (~1970) Restless leg syndrome Shoulder pain (~03/2018) Sleep apnea Wears glasses Surgical History Anesthesia History of carpal tunnel release History of cataract removal with insertion of prosthetic lens (~2014) History of section History of laminectomy (~2002) History of spinal fusion (~2012) History of thumb surgery Family History Father Stroke Mother Hypertension Brother Cerebral aneurysm Prostate cancer Diabetes mellitus Hypertension Stroke Brother Arthritis Hyperlipidemia Hypertension Sister History of kidney cancer Hypertension Grandfather Cancer Grandmother Cancer Other Family history non-contributory Social History household members: spouse Smoking Status: Never smoker alcohol intake: current Discharge Plan Discharge Plan Patient Disposition: Home Health Service Discharge orders & Medications Prescriptions: New piperacillin-tazobactam 3.375 gram Recon Soln 3.375 gm IV Q8H Qty: 63 0RF benzonatate 100 mg Capsule 100 mg PO TID PRN (Reason: Cough) Qty: 30 0RF Bacid 1 billion cell- 250 mg Tablet 1 ea PO TIDWM Qty: 90 3RF fluconazole [Diflucan] 200 mg tablet 200 mg PO DAILY Qty: 20 0RF doxycycline hyclate 100 mg tablet 100 mg PO BID Qty: 42 0RF scopolamine base 1 mg over 3 days patch 3 day 1 patch transdermal Q3D Qty: 10 0RF prednisone 10 mg tablet 10 mg PO DIRECTED Qty: 30 0RF Rx Instructions: 40MG PO X 3 DAYS 30MG PO X 3 DAYS 20MG PO X 3 DAYS 10MG PO DAILY UNTIL STOPPED BY PCP OR PULM Continued Mucinex 1,200 MG tablet extended release 12hr 1,200 mg PO Q12H Qty: 0 0RF polyethylene glycol 3350 [Miralax] 119 GM powder 17 gm PO DAILY PRN (Reason: Constipation) Qty: 0 0RF ondansetron HCl [Zofran] 4 mg tablet 4 mg PO Q8H PRN (Reason: nausea and vomiting) Qty: 30 1RF clonidine HCl 0.1 mg tablet 0.1 mg PO BID Qty: 180 0RF Rx Instructions: PT WILL NEED TO BE SEEN BEFORE NEXT RENEWAL 08/05/20 losartan 50 mg tablet 50 mg PO DAILY Qty: 90 0RF Rx Instructions: PT WILL NEED TO BE SEEN BEFORE NEXT RENEWAL 08/05/20 metformin 1,000 mg tablet 1,000 mg PO BID Qty: 180 0RF Rx Instructions: PT DUE FOR APPT PRIOR TO END OF CURRENT RX. PLEASE CALL TO SCHEDULE APPT. THANKS 09/03/20 Belbuca 150 mcg film 750 mcg buccal Q12H 0RF pramipexole 0.5 mg tablet 0.5 mg PO BEDTIME Qty: 15 0RF Rx Instructions: NO FUTURE FILLS UNTIL SEEN. PATIENT OVERDUE FOR APPT. PLEASE CALL TO SCHEDULE APPT. THANKS. 02/28/21 Privigen 10 % solution 45 gram IV Q3W 0RF ferrous sulfate 325 mg (65 mg iron) tablet 325 mg PO DAILY 0RF spironolactone 50 mg tablet 50 mg PO DAILY 0RF tizanidine 4 mg capsule 4 mg PO QID PRN (Reason: Muscle Spasm) 0RF aspirin 81 mg tablet,delayed release (DR/EC) 81 mg PO QPM 0RF cholecalciferol (vitamin D3) 2,000 unit tablet 2,000 unit PO DAILY 0RF albuterol sulfate 90 mcg/actuation HFA aerosol inhaler 2 puff INHALATION Q4-6H PRN (Reason: Shortness Of Breath) 0RF fluticasone propionate [Flonase Allergy Relief] 50 mcg/actuation spray,suspension 1 spray NASAL BID PRN (Reason: Allergy Symptoms) 0RF sodium chloride 3 % Solution For Nebulization 3 ml INHALATION DIRECTED 0RF Rx Instructions: use w/ nebulizer 2 x daily montelukast [Singulair] 10 mg Tablet 10 mg PO BEDTIME 0RF Zyrtec 10 mg Capsule 10 mg PO DAILY 0RF pregabalin 200 mg Capsule 200 mg PO BID 0RF oxycodone 10 mg Tablet 10 mg PO QID PRN (Reason: Pain (Scale Score 7-10)) 0RF atorvastatin 40 mg Tablet 40 mg PO BEDTIME 0RF ipratropium-albuterol 0.5 mg-3 mg(2.5 mg base)/3 mL Solution For Nebulization 3 ml INHALATION Q4H PRN (Reason: wheezing/ shortness of breath) 0RF ipratropium-albuterol 0.5 mg-3 mg(2.5 mg base)/3 mL Solution For Nebulization 3 ml INHALATION BID 0RF sqvmnwpjru-mhlpkllmrdukk-cums 50-325-40 mg Tablet 1 tab PO Q4H PRN (Reason: Migraine Headache) 0RF levothyroxine 75 mcg Tablet 75 mcg PO QAM 0RF nortriptyline 25 mg Capsule 25 mg PO BEDTIME 0RF fluticasone propion-salmeterol [Advair Diskus] 500-50 mcg/dose Blister With Device 1 inh INHALATION Q12H 0RF epinephrine [EpiPen] 0.3 mg/0.3 mL Auto-Injector 0.3 mg IM Q5-15M PRN (Reason: Allergic Reaction) 0RF Rx Instructions: do not exceed 3 doses per episode Spiriva with HandiHaler 18 mcg Capsule, W/Inhalation Device 1 cap INHALATION DAILY 0RF Rx Instructions: puncture 1 cap using device; one dose = 2 inhalations Mucinex 1,200 mg Tablet Extended Release 12hr 1,200 mg PO BID 0RF naproxen sodium [Aleve] 220 mg Capsule 220 mg PO BID PRN (Reason: Pain (Scale Score 4-6)) 0RF insulin glargine 100 unit/mL solution 30 unit SUBCUT DAILY 0RF furosemide [Lasix] 20 mg tablet 20 mg PO QAM 0RF insulin lispro [Humalog KwikPen Insulin] 100 unit/mL insulin pen 4 - 8 unit SUBCUT TID 0RF Discontinued prednisone 10 mg tablet 5 mg PO AMCC 0RF No Action (DME) insulin syringe-needle U-100 [BD Insulin Syringe Ultra-Fine] 0.5 mL 31 gauge x 5/16 syringe See Rx Instructions .ROUTE .MEDSUPPLY Qty: 100 1RF Rx Instructions: Use once a day as directed (DME) verio reflect glucometer Qty: 1 0RF Rx Instructions: As directed Follow up/Referrals: Karin Porter MD [Primary Care Provider] - Diet/Activity/Treatments Diet: Low-fat, Low-sodium and Low-cholesterol Activity: TOLERATED Skin/Wound/Dressing Care Report to your healthcare provider any signs of infection, such as:: chills, fever, night sweats, unusual drainage and unusual redness Discharge Data Primary Care Provider: Karin Porter Quality VTE Deep Vein Thrombosis/Pulmonary Embolism Present on Admission: No
--- NOTE | 2021-04-22 13:53 | CM.DPNOTE ---
Faxed over Piperacillin tazobactam RX, picc line x-ray and clinicals per [facility] to [facility]. Received fax conf. Lizett Muller CM Asst.
--- NOTE | 2021-04-22 15:28 | CM.DPNOTE ---
DCP Note According to Dr Evangelista; patient can DC today if arrangements are made for her to receive 21 additional days of IV Zosyn 3.375 g Q8; currently scheduled at following approx intervals: 1200, 1999, 299 Placed call to [facility], per patient's request, and worked w/ Romina (Intake) throughout the day. BRIAN [place], kindly faxed referral packet to [facility]. According to Romina, the soonest they have an RN available to meet w/patient and provide this IV Zosyn is Sunday04.24.20. Updated patient, spouse and Dr Evangelista and all have agreed: P: patient will remain admitted for continued dosing of IV Zosyn until Sunday when [facility] RN can meet patient at her home for her 1200 dose. Home w/supportive spouse Patient awaiting a quote from [facility] for any out of pocket expense for this IV Zosyn; [facility] will contact patient directly w/this info CM team will follow closely to assist in coordination of DCP JW
--- NOTE | 2021-04-22 16:13 | PM.PN.1 ---
Subjective Subjective Date Patient Seen: 04/22/21 Interval history: ?PATIENT BEING TREATED FOR BILATERAL PNEUMONIA? WHICH IS PRESUMED TO BE MRSA AND POSSIBLE IN CONJUNCTION WITH PSEUDOMONAS ?HAS HISTORY OF MULTIPLE RECURRENT PNEUMONIA. ?THIS MORNING ?CONTINUE TO REPORT FEELING BETTER ?NO INCREASING SHORTNESS OF BREATH ?NO CHEST PAIN ?SHE FEELS LIKE SHE IS BE ABLE TO GO HOME PRETTY SOON ?SHE SLEPT WELL ?NO DIARRHEA.? NO NAUSEA OR VOMITING ?SPOKE TO PATIENT WITH FAMILY AT BEDSIDE ONCE AGAIN Exam Vital Signs (past 8 hours): - 04/22/21 11:05 04/22/21 15:00 Pulse Rate 73 74 Respiratory Rate 24 20 Pulse Oximetry 96 94 Fraction of Inspired Oxygen 50 Oxygen Delivery Method Nasal Cannula Oxygen Flow Rate 1.5 Narrative Exam Narrative: NO ACUTE DISTRESS.? MORBIDLY OBESE.? ABLE TO FINISH A FULL SENTENCE WITHOUT HAVING TO STOP BECAUSE OR SHORTNESS OF BREATH ?APPEARS STATED AGE.? SIGN OF TRAUMA? CALM.? COOPERATIVE HEAD ATRAUMATIC NORMOCEPHALIC NECK : SUPPLE WITHOUT ADENOPATHY NO CAROTID BRUITS EYE:? EOMI, PERRLA, NORMAL CONJUNCTIVA; NO JAUNDICE CHEST:? REGULAR RATE.? ? NO RUBS.? PMI IS NON DISPLACED.? NO MURMURS; NORMAL S1-S2 PULMONARY: SOME WHEEZING APPRECIATED BILATERALLY.? CRACKLES ALSO ASSOCIATED BILATERALLY.? SIGNIFICANT DECREASED BREATH SOUND AT THE BASES.? NO INCREASED DULLNESS TO PERCUSSION.? NO PLEURAL RUBS.? NO RHONCHI. ABDOMEN: ? OBESE BUT SOFT.? NONTENDER.? NONDISTENDED.? BOWEL SOUNDS ARE PRESENT IN ALL 4 QUADRANTS. ? EXTREMITIES:? 2+ NONPITTING BILATERAL LOWER EXTREMITY EDEMA..? NO CYANOSIS CLUBBING NOTED. NEURO:? CRANIAL NERVES 2-12 GROSSLY INTACT. NO FOCAL NEUROLOGICAL DEFICIT NOTED. MSK:? NORMAL RANGE OF MOTION FOR AGE.? NO JOINT EFFUSION. NO DEFORMITIES SKIN:? FAIR SKIN TURGOR.? NO ECCHYMOSIS. NO RASHES :? NORMAL EXTERNAL GENITALIA. PSYCH :? APPROPRIATE MOOD AND AFFECT.? ALERT AWAKE ORIENTED X3 Objective Labs Result Diagrams: 04/22/21 04:20 04/22/21 04:20 Labs: Laboratory Results - last 24 hr 04/22/21 04/22/21 04:20 04:20 WBC 12.9 H RBC 3.65 L Hgb 10.2 L Hct 30.8 L MCV 84.4 MCH 27.8 MCHC 32.9 RDW 17.3 H Plt Count 251 Neut % (Auto) 92.5 H Lymph % (Auto) 4.5 L [place] % (Auto) 2.9 L Eos % (Auto) 0.0 L Baso % (Auto) 0.1 Neut # (Auto) 69908 H Lymph # (Auto) 600 L [place] # (Auto) 400 Eos # (Auto) 0 Baso # (Auto) 0 Sodium 133 L Potassium 4.5 Chloride 103 Carbon Dioxide 27 BUN 31 H Creatinine 0.93 Estimated GFR 59.1 L BUN/Creatinine Ratio 33.3 H Glucose 292 H Calcium 9.3 Phosphorus 3.3 Magnesium 1.9 Total Bilirubin 0.3 AST 24 ALT 25 Alkaline Phosphatase 56 Total Protein 6.8 Albumin 3.3 L Globulin 3.5 Albumin/Globulin Ratio 0.9 L PFSH Medical History Abnormal chest xray (~1979) Anemia Ankle pain Asthma (~1959) Bronchiectasis (~2006) Cervical spine disease Chronic back pain Colon polyps (~2015) Degenerative joint disease of spine (~2001) Diabetes mellitus, type II (~2009) Eczema Fibromyalgia Foot pain Hoarseness Hyperlipidemia Hypertension Hypothyroidism Migraines (~1964) 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 Osteopenia Pneumonia Pneumonia Recurrent sinusitis (~1970) Restless leg syndrome Shoulder pain (~03/2018) Sleep apnea Wears glasses Surgical History Anesthesia History of carpal tunnel release History of cataract removal with insertion of prosthetic lens (~2014) History of section History of laminectomy (~2002) History of spinal fusion (~2012) History of thumb surgery Family History Father Stroke Mother Hypertension Brother Cerebral aneurysm Prostate cancer Diabetes mellitus Hypertension Stroke Brother Arthritis Hyperlipidemia Hypertension Sister History of kidney cancer Hypertension Grandfather Cancer Grandmother Cancer Other Family history non-contributory Social History household members: spouse Smoking Status: Never smoker alcohol intake: current Assessment & Plan Assessment & Plan narrative: PROBLEM LIST ?ACUTE ON CHRONIC HYPOXIC RESPIRATORY FAILURE.? IMPROVED ?BILATERAL PNEUMONIA.? RECURRENT.? PRESUMABLY MRSA AND PSEUDOMONAS COMBINED ?SEPSIS.? PRESENT ON ARRIVAL.? RESOLVING ?LEUKOCYTOSIS. ASSOCIATED WITH INFECTIOUS PROCESS LIKELY.? ON ANTIBIOTICS ? ACUTE KIDNEY INJURY. ? ?? PRE RENAL.? MONITOR CLOSELY ON THE ?DIABETES TYPE 2.? INSULIN-DEPENDENT.? STRICT BLOOD SUGAR CONTROL ?BRONCHIECTASIS PER HISTORY.? AWARE.? OUTPATIENT MANAGEMENT ?OBESITY HYPOVENTILATORY SYNDROME VERSES [place] PER HISTORY.? NEED SLEEP STUDY ?CHRONIC PAIN SYNDROME.? CONTINUE HOME MEDS ?COMMON VIABLE RENAL DEFICIENCY ?PLAN 04/22 ATTEMPTED TO DISCHARGE ON IV ANTIBIOTICS TODAY HOWEVER UNABLE TO SET UP IV ANTIBIOTICS UNTIL MONDAY 04/24 FOR INFUSION COMPANY WILL CONTINUE CURRENT MANAGEMENT FOR NOW PATIENT IS ON ZOSYN AND DOXYCYCLINE CONTINUE TO FOLLOW CULTURES FOLLOW SPUTUM CULTURES CLOSELY MONITOR CLOSELY FOR C DIFF COLITIS WHILE ON ANTIBIOTICS THERAPY PATIENT WILL HAVE HOME OXYGEN DELIVERED PRIOR TO DISCHARGE SHE WILL NEED TO FOLLOW UP WITH INFECTIOUS DISEASE AND PULMONOLOGY OUTPATIENT ONCE DISCHARGED \ ADDITIONAL MANAGEMENT PER CLINICAL COURSE 04/21 ?PATIENT CONTINUED TO SHOW CLINICAL IMPROVEMENT ?NO INDICATION TO ADJUST ANTIBIOTIC THERAPY AT THIS TIME ?WILL FOLLOW CULTURES CLOSELY ?REPEAT CHEST X-RAY IN THE MORNING ?WILL CONSIDER ORDERING AN OVERNIGHT PULSE? OXIMETRY TESTING /? SLEEP STUDY IF? POSSIBLE TO ARRANGE ?COULD CONSIDER SWITCHING ANTIBIOTIC TO ZOSYN ?PER PRIOR SPUTUM CULTURE,? PSEUDOMONAS WAS RESISTANT TO LEVAQUIN ?CONTINUE DOXYCYCLINE? HOWEVER ?OTHERWISE CONTINUE CURRENT MANAGEMENT PREVIOUSLY NOTED BELOW ?IF PATIENT CONTINUED TO SHOW IMPROVEMENT, SHOULD BE ABLE TO DISCHARGE TO EX 24 HOURS TO HOME WITH HOME HEALTH LIKELY 04/20 ?PATIENT RECEIVED [facility] LEVAQUIN IN THE ER ?WILL CONTINUE WITH LEVAQUIN AND DOXYCYCLINE FOR NOW ?WILL ALSO ADD DIFLUCAN FOR ANTIFUNGAL COVERAGE DUE TO PRIOR HISTORY OF MULTIPLE INFECTION ?WILL ALSO START ON SOLU-MEDROL ?PATIENT WILL BE ON DUONEB TREATMENTS Q.4 HOURS WHILE AWAKE ?ALBUTEROL WILL BE ORDERED NEEDED ?CONSULT? RT FOR AGGRESSIVE PULMONARY TOILETING ?STRICT ASPIRATION PRECAUTIONS ?OXYGEN SUPPLEMENT TO MAINTAIN OXYGEN SATURATION ABOVE 90% AT ALL TIMES ?SPUTUM CULTURES HAS BEEN ORDERED AND WILL BE FOLLOWED CLOSELY ?WILL CONSULT WITH PULMONOLOGY AND DISEASE FOR RECOMMENDATIONS ?WILL CONSIDER TRANSFER TO TERTIARY FACILITY FOR HIGHER LEVEL OF CARE IF INDICATED CLINICALLY ?SERIAL CHEST X-RAY AND ABG TO FOLLOW CLINICALLY ?PATIENT HAS A HISTORY OF L[place], WILL ORDER BIPAP TO BE USED AT NIGHT NEEDED ONLY ?INCENTIVE SPIROMETER ORDERED FOR PATIENT TO USE? A VR WHILE AWAKE ?DIABETIC DIET ?ALSO STARTED ON SLIDING SCALE INSULIN ?CONTINUE HOME LANTUS DOSE ?CONTINUE HOME MED INDICATED ?ADDITIONAL MANAGEMENT PER CLINICAL COURSE Time Spent With Patient Critical Care time: I spent a total of [] minutes of critical care time on this patient's care today; this time is exclusive of procedural time. Quality VTE Deep Vein Thrombosis/Pulmonary Embolism Present on Admission: No
[2021-04-22] MEDS: diphenhydrAMINE 25 MG TABLET PO (17:44)
[2021-04-22] MEDS: ASPIRIN EC 81 MG TABLET PO (17:44)
[2021-04-22] MEDS: FLUCONAZOLE 200 MG/100 ML PIGGYBACK 100 MG IV (21:05)
[2021-04-22] MEDS: ATORVASTATIN 20 MG TABLET 40 MG PO (21:05)
[2021-04-22] MEDS: PRAMIPEXOLE 0.25 MG TABLET 0.5 MG PO (21:05)
[2021-04-22] MEDS: MONTELUKAST 10 MG TABLET PO (21:05)
[2021-04-22] MEDS: NORTRIPTYLINE HCL 25 MG CAPSULE PO (21:06)
[2021-04-23] VITALS (14 sets, daily range): BP systolic 116–149; BP diastolic 58–81; PULSE 63–84; RESP 16–18; TEMP 36.4–36.9; O2SAT 90–97
[2021-04-23] MEDS: methylPREDNISolone 125 MG/2 ML VIAL 60 MG IV ×4 (00:43→18:07)
[2021-04-23] MEDS: PIPERACILLIN/TAZO 3.375 GM in SODIUM CHLORIDE 0.9% 100 ML 25 ML IV ×3 (03:50→21:04)
[2021-04-23] MEDS: BUTALB/APAP/CAFFEINE 50/325/40 TABLET 1 EACH PO (03:50)
[2021-04-23] MEDS: LEVOTHYROXINE 75 MCG TABLET PO (05:43)
[2021-04-23] MEDS: DOXYCYCLINE 100 MG in SODIUM CHLORIDE 0.9% 100 ML IV ×2 (05:45→18:08)
[2021-04-23 06:56] LABS: Add Manual Diff / Slide Review NO; Basophils Absolute Auto 0 /uL (0-100); Basophils Percent Auto 0.1 % (0-2); Eosinophils Absolute Auto 0 /uL (0-450); Hematocrit 33.3 % (36-46); Hemoglobin 11.1 g/dL (12.0-16.0); Lymphocytes Absolute Auto 500 /uL (1100-4500); Lymphocytes Percent Auto 6.4 % (25-40); Mean Corpuscular HGB Conc 33.3 % (30-36); Mean Corpuscular Hemoglobin 28.1 PG (26-34); Mean Corpuscular Volume 84.5 fL (80-100); Monocytes Absolute Auto 300 /uL (0-900); Monocytes Percent Auto 4.1 % (3-14); Neutrophils Absolute Auto 6800 /uL (1500-7000); Neutrophils Percent Auto 89.4 % (50-75); Platelet Count 267 X10^3/uL (150-400); Red Blood Cell Count 3.94 X10^6/uL (4.0-5.2); Red Cell Distribution Width 17.6 % (11.6-14.8); White Blood Cell Count 7.6 X10^3/uL (4.5-11.0)
[2021-04-23 07:12] LABS: Alanine Aminotransferase 32 IU/L (<35); Albumin 3.4 g/dL (3.5-5.0); Alkaline Phosphatase 52 U/L (38-126); Aspartate Aminotransferase 30 IU/L (14-36); BUN Creatinine Ratio 33.3 (6-22); Bilirubin Total 0.3 mg/dL (0.2-1.3); Blood Urea Nitrogen 32 mg/dL (7-17); Calcium 9.5 mg/dL (8.4-10.2); Carbon Dioxide 28 mmol/L (22-32); Chloride 106 mmol/L (98-107); Globulin 3.4 g/dL (1.7-4.1); Glucose 289 mg/dL (80-110); HEMOLYSIS < 15 (0-50); Phosphorous 3.2 mg/dL (2.8-4.1); Potassium 4.6 mmol/L (3.4-5.1); Sodium 136 mmol/L (137-145); Total Protein 6.8 g/dL (6.3-8.2)
[2021-04-23] MEDS: BUDESONIDE 0.5 MG/2 ML NEB INH ×2 (07:44→19:22)
[2021-04-23] MEDS: ALBUTEROL/IPRATROPIUM 3 ML AMPUL INH ×4 (07:44→19:22)
[2021-04-23] MEDS: diphenhydrAMINE 25 MG TABLET PO ×2 (08:27→21:12)
[2021-04-23] MEDS: cloNIDine 0.1 MG TABLET PO ×2 (08:27→21:08)
--- NOTE | 2021-04-23 08:29 | PM.PN.1 ---
Subjective Subjective Date Patient Seen: 04/23/21 Interval history: She is seen in her room here on 04/23/2021 to follow-up her pneumonia and other chronic medical issues. [facility] will be available to transition her IV antibiotics to home dosing tomorrow. Her white blood count is 7.6 with a hemoglobin of 11.1. Platelets are 267. The glucose is 289 with an albumin of 3.4. Exam Vital Signs (past 8 hours): - 04/23/21 03:00 04/23/21 05:00 04/23/21 07:46 Temperature 97.8 F Pulse Rate 75 82 Respiratory Rate 18 18 Blood Pressure 116/58 L Pulse Oximetry 93 94 94 Fraction of Inspired Oxygen 50 Oxygen Delivery Method Nasal Cannula Oxygen Flow Rate 2 Narrative Exam Narrative: She is alert and oriented x3. No apparent distress Lungs have wheezes bilaterally Heart is regular rate and rhythm without murmur Abdomen is quite obese, nontender Extremities have no ankle edema Objective Labs Result Diagrams: 04/23/21 06:45 04/23/21 06:45 Labs: Laboratory Results - last 24 hr 04/23/21 04/23/21 06:45 06:45 WBC 7.6 RBC 3.94 L Hgb 11.1 L Hct 33.3 L MCV 84.5 MCH 28.1 MCHC 33.3 RDW 17.6 H Plt Count 267 Neut % (Auto) 89.4 H Lymph % (Auto) 6.4 L [place] % (Auto) 4.1 Eos % (Auto) 0.0 L Baso % (Auto) 0.1 Neut # (Auto) 6800 Lymph # (Auto) 500 L [place] # (Auto) 300 Eos # (Auto) 0 Baso # (Auto) 0 Sodium 136 L Potassium 4.6 Chloride 106 Carbon Dioxide 28 BUN 32 H Creatinine 0.96 Estimated GFR 57.0 L BUN/Creatinine Ratio 33.3 H Glucose 289 H Calcium 9.5 Phosphorus 3.2 Magnesium 2.0 Total Bilirubin 0.3 AST 30 ALT 32 Alkaline Phosphatase 52 Total Protein 6.8 Albumin 3.4 L Globulin 3.4 Albumin/Globulin Ratio 1.0 [facility] Medical History Abnormal chest xray (~1979) Anemia Ankle pain Asthma (~1959) Bronchiectasis (~2006) Cervical spine disease Chronic back pain Colon polyps (~2015) Degenerative joint disease of spine (~2001) Diabetes mellitus, type II (~2009) Eczema Fibromyalgia Foot pain Hoarseness Hyperlipidemia Hypertension Hypothyroidism Migraines (~1964) 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 Osteopenia Pneumonia Pneumonia Recurrent sinusitis (~1970) Restless leg syndrome Shoulder pain (~03/2018) Sleep apnea Wears glasses Surgical History Anesthesia History of carpal tunnel release History of cataract removal with insertion of prosthetic lens (~2014) History of section History of laminectomy (~2002) History of spinal fusion (~2012) History of thumb surgery Family History Father Stroke Mother Hypertension Brother Cerebral aneurysm Prostate cancer Diabetes mellitus Hypertension Stroke Brother Arthritis Hyperlipidemia Hypertension Sister History of kidney cancer Hypertension Grandfather Cancer Grandmother Cancer Other Family history non-contributory Social History household members: spouse Smoking Status: Never smoker alcohol intake: current Assessment & Plan Assessment & Plan narrative: This is a 71-year-old female with longstanding respiratory failure of bronchiectasis and obesity hypoventilation syndrome. 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 ?ACUTE ON CHRONIC HYPOXIC RESPIRATORY FAILURE.? Improving and close to baseline that she lives with at home. ?BILATERAL PNEUMONIA.? RECURRENT.? Sputum cultures negative this time. Current plan is a full treatment course for recurrence of Pseudomonas/MRSA due to the frequent prior episodes. IV Zosyn/doxycycline at home with a stop date of 05/04/2021 unless extended by Pulmonary or Infectious Disease. Discharge on 04/24 with IV antibiotics per [facility]. ?SEPSIS.? PRESENT ON ARRIVAL.? Resolved ? ACUTE KIDNEY INJURY. ?Resolved. ?DIABETES TYPE 2.? INSULIN-DEPENDENT.? Continue glargine and lispro. ?BRONCHIECTASIS PER HISTORY.? Continue outpatient pulmonary follow-up. ?OBESITY HYPOVENTILATORY SYNDROME VERSUS LORENE PER HISTORY.? NEEDS SLEEP STUDY ?CHRONIC PAIN SYNDROME.? Continue home doses of oxycodone, Lyrica and tizanidine. Common variable immune deficiency-not in past medical history but is reported in the progress notes. ?PLAN 04/22 ? ATTEMPTED TO? DISCHARGE ON IV ANTIBIOTICS TODAY ?HOWEVER UNABLE TO SET UP IV ANTIBIOTICS UNTIL MONDAY 04/24 FOR INFUSION COMPANY ?WILL CONTINUE CURRENT MANAGEMENT FOR NOW ?PATIENT IS ON ZOSYN AND DOXYCYCLINE ?CONTINUE TO FOLLOW CULTURES ?FOLLOW SPUTUM CULTURES CLOSELY ?MONITOR CLOSELY FOR C DIFF COLITIS WHILE ON ANTIBIOTICS THERAPY ?PATIENT WILL HAVE? HOME OXYGEN DELIVERED PRIOR TO DISCHARGE ?SHE WILL NEED TO FOLLOW UP WITH INFECTIOUS DISEASE AND PULMONOLOGY OUTPATIENT? ONCE DISCHARGED \ ?ADDITIONAL MANAGEMENT PER CLINICAL COURSE 04/21 ?PATIENT CONTINUED TO SHOW CLINICAL IMPROVEMENT ?NO INDICATION TO ADJUST ANTIBIOTIC THERAPY AT THIS TIME ?WILL FOLLOW CULTURES CLOSELY ?REPEAT CHEST X-RAY IN THE MORNING ?WILL CONSIDER ORDERING AN OVERNIGHT PULSE? OXIMETRY TESTING /? SLEEP STUDY IF? POSSIBLE TO ARRANGE ?COULD CONSIDER SWITCHING ANTIBIOTIC TO ZOSYN ?PER PRIOR SPUTUM CULTURE,? PSEUDOMONAS WAS RESISTANT TO LEVAQUIN ?CONTINUE DOXYCYCLINE? HOWEVER ?OTHERWISE CONTINUE CURRENT MANAGEMENT PREVIOUSLY NOTED BELOW ?IF PATIENT CONTINUED TO SHOW IMPROVEMENT, SHOULD BE ABLE TO DISCHARGE TO EX 24 HOURS TO HOME WITH HOME HEALTH LIKELY 04/20 ?PATIENT RECEIVED [facility] LEVAQUIN IN THE ER ?WILL CONTINUE WITH LEVAQUIN AND DOXYCYCLINE FOR NOW ?WILL ALSO ADD DIFLUCAN FOR ANTIFUNGAL COVERAGE DUE TO PRIOR HISTORY OF MULTIPLE INFECTION ?WILL ALSO START ON SOLU-MEDROL ?PATIENT WILL BE ON DUONEB TREATMENTS Q.4 HOURS WHILE AWAKE ?ALBUTEROL WILL BE ORDERED NEEDED ?CONSULT? RT FOR AGGRESSIVE PULMONARY TOILETING ?STRICT ASPIRATION PRECAUTIONS ?OXYGEN SUPPLEMENT TO MAINTAIN OXYGEN SATURATION ABOVE 90% AT ALL TIMES ?SPUTUM CULTURES HAS BEEN ORDERED AND WILL BE FOLLOWED CLOSELY ?WILL CONSULT WITH PULMONOLOGY AND DISEASE FOR RECOMMENDATIONS ?WILL CONSIDER TRANSFER TO TERTIARY FACILITY FOR HIGHER LEVEL OF CARE IF INDICATED CLINICALLY ?SERIAL CHEST X-RAY AND ABG TO FOLLOW CLINICALLY ?PATIENT HAS A HISTORY OF [place], WILL ORDER BIPAP TO BE USED AT NIGHT NEEDED ONLY ?INCENTIVE SPIROMETER ORDERED FOR PATIENT TO USE? A VR WHILE AWAKE ?DIABETIC DIET ?ALSO STARTED ON SLIDING SCALE INSULIN ?CONTINUE HOME LANTUS DOSE ?CONTINUE HOME MED INDICATED ?ADDITIONAL MANAGEMENT PER CLINICAL COURSE Time Spent With Patient Critical Care time: I spent a total of [] minutes of critical care time on this patient's care today; this time is exclusive of procedural time. Quality VTE Deep Vein Thrombosis/Pulmonary Embolism Present on Admission: No
[2021-04-23] MEDS: PREGABALIN 50 MG CAPSULE 200 MG PO ×2 (08:30→21:12)
[2021-04-23] MEDS: LOSARTAN 50 MG TABLET PO (08:30)
[2021-04-23] MEDS: OXYCODONE IR 10 MG TABLET PO ×2 (08:30→17:23)
[2021-04-23] MEDS: CHOLECALCIFEROL (VITAMIN D3) 1,000 UNIT TABLET 2000 UNIT PO (08:30)
[2021-04-23] MEDS: guaiFENesin ER 600 MG TAB 1200 MG PO ×2 (08:31→21:10)
[2021-04-23] MEDS: FERROUS SULFATE 325 MG TABLET PO (08:31)
[2021-04-23] MEDS: SPIRONOLACTONE 25 MG TABLET 50 MG PO (08:31)
[2021-04-23] MEDS: LACTOBACILLUS ACIDOPHILUS TABLET 1 EACH PO ×3 (08:31→17:23)
[2021-04-23] MEDS: ENOXAPARIN 40 MG/0.4 ML SYRINGE SUBCUT ×2 (08:31→21:09)
[2021-04-23] MEDS: FLUTICASONE 120 SPRAY/16 GM SPRAY.SUSP NASAL (08:32)
[2021-04-23] MEDS: INSULIN GLARGINE 100 UNIT/ML 3ML PEN 30 UNIT SUBCUT (08:32)
[2021-04-23] MEDS: INSULIN LISPRO 100 UNIT/ML 3ML VIAL SUBCUT ×4 (08:33→21:10)
[2021-04-23] MEDS: SODIUM CHLORIDE 0.9% FLUSH 10 ML IV (08:35)
--- NOTE | 2021-04-23 11:03 | PC.NURSE ---
Assess- Pt A&O, sitting up in chair, c/o pain to bilat LE, PRN oxycodone administered per JUN. Lung sounds improved from yesterday, diminished throughout, so SOB. C/o 1 episode of incontinence overnight, but voiding appropriately now. Last BM 04/22, no c/o constipation. Shower today per pt request.
[2021-04-23] MEDS: LORATADINE 10 MG TABLET PO (12:52)
--- NOTE | 2021-04-23 13:15 | PC.NURSE ---
Assess- Patient had a shower today, she is sitting up in the chair with her iv antibiotics infusing. just got here and will have lunch with patient. She voices no complaints and wanted to put her own night gown on.
--- NOTE | 2021-04-23 15:00 | PT.IPTN ---
Current Diagnoses Sepsis, unspecified organism (04/20/21) Physical Therapy Treatment Note M2 PT-IP Current Condition Start: 04/21/21 09:06 Freq: NEEDED Status: Active Protocol: Document 04/21/21 12:35 MB (Rec: 04/21/21 13:28 MB [id number]) Physical Therapy Current Condition Current Condition Evaluation Date 04/21/21 Treatment Diagnosis Debility d/t MRSA PNA M3 PT-IP Subjective Start: 04/21/21 09:06 Freq: NEEDED Status: Active Protocol: Document 04/23/21 14:33 KS (Rec: 04/23/21 15:08 KS [id number]) Subjective Physical Therapy Visit Type Type Treatment Note Visit Start Time 14:33 Visit Stop Time 15:00 Total Visit Minutes 27 Notes Pt agreeable to working w/ therapy. Number of ADOLESCENT MEDICINE SPECIALIST Visits 1 M4 PT-IP Mobility and Gait Start: 04/21/21 09:06 Freq: NEEDED Status: Active Protocol: Document 04/23/21 14:33 KS (Rec: 04/23/21 15:08 KS [id number]) PT-Bed Mobility Assessment Scooting Scooting to Edge of Bed Standby Assistance PT-Transfer Assessment Sit to and From Stand Sit to and from Stand Standby Assistance Equipment Transfer Assistive Device Gait Belt,Front Wheeled Walker Orthotic/Prosthetic Devices or Brace: No Transfers Transfer Destination Chair Transfer Technique Pt ambulated w/ FWW Transfer Ability Level of Assist Standby Assistance,1 Person Assistance,Use of Upper Extremities Comments Mobility Comments Pt SBA for transfers and ambulation. She ambulated ~[facility] w/ FWW and performed 5x sit<>stands from chair. She has quick approach to fatigue, but was able to maintain O2 >94% on 1.5L throughout treatment. Gait Assessment Gait Gait Assistance Required: Standby Assistance Distance (Feet) 50 Assistive Devices Assistive Device Gait Belt,Front Wheeled Walker Orthotic/Prosthetic Devices or Brace: No Gait Deviations General Gait Pattern Decreased Stride Length, Decreased Feet Clearance, Flexed Trunk Factors Limiting Gait Function Factors Limiting Gait Function Decreased Strength,Poor Balance Comments Gait Comments Pt ambulated ~50 ft w/ FWW, however reports using SPC at home. Will plan to trial next visit. PT-Balance Assessment Sitting Balance and Reactions Static Sitting Balance Ability Fair Dynamic Sitting Balance Ability Fair Standing Balance and Reactions Static Standing Balance Ability Fair Dynamic Standing Balance Ability Fair Device Used FWW M5 PT-IP Objective Assessments Start: 04/21/21 09:06 Freq: NEEDED Status: Active Protocol: Document 04/21/21 12:35 MB (Rec: 04/21/21 13:28 MB [id number]) Orientation Orientation/Cognition Level of Alertness Alert Orientation Name,Age,Birthday,Month,Date, Year,Day of Week,Place, Situation Language Function Ability No Deficits Noted Safety Awareness Understands Safety Issues Memory Description No Deficits Noted Gross Range of Motion Upper Extremity ROM Assessment Within Functional Limits Lower Extremity ROM Assessment Within Functional Limits Strength Upper Extremity Strength Assessment Within Functional Limits Lower Extremity Strength Assessment Within Functional Limits Sensation Assessment Comments Sensation Comments Pt reports some numbness in her toes M6 PT-IP Treatment Start: 04/21/21 09:06 Freq: NEEDED Status: Active Protocol: Document 04/23/21 14:33 KS (Rec: 04/23/21 15:08 KS [id number]) Physical Therapy Treatment Education Education Provided Safety Other Treatments Other Treatment Performed 5x sit<>stands. Discussed PLB and energy conservation, safety at home. M7 PT-IP Assessment and Plan Start: 04/21/21 09:06 Freq: NEEDED Status: Active Protocol: Document 04/23/21 14:33 KS (Rec: 04/23/21 15:08 KS [id number]) PT Summary Assessment and Plan Potential Rehabilitation Potential Good Status of Condition at Evaluation Evolving Summary Impairments Strength,Balance,Gait,Activity Tolerance Assessment Summary Pt SBA for transfers and ambulation w/ FWW. Limited in mobility by weakness, mild SOB , and low tolerance for activity but was able to ambulate 50 ft w/ FWW w/o rest break and O2 94% or higher w/ 1.5L O2. She reports using SPC at home and would benefit from practice w/ SPC to see if appropriate. She will also need to complete 2 steps w/ rail prior to d/c home. Will also benefit from HHPT or outpatient therapy to improve gait, balance, and tolerance for activity. Goals Bed Mobility Goal Independent Transfer Goal Independent Gait Goal Independent Gait Distance 50 Other Goals Ascend and descend 2 steps with rail and CGA to allow safe home entry. Frequency of Treatment Frequency Of Treatment Once a Day Treatment Plan Physical Therapy Treatment Plan Bed Mobility Training,Transfer Training,Gait Training, Therapeutic Exercise,Balance Retraining,Discharge Planning Other Recommendations and Next Treatment Ambulation w/ SPC, Stair and Focus gait training to prepare for d /c Precautions Other Precautions Fall risk, many lines Recommendations To Nursing Amount of Assist Needed 1 Person Assist Discharge Recommendations PT Discharge Recommendations Home with 24/7 Assist Available,Home Health, Outpatient PT Transportation Needs at Discharge Private Vehicle
[2021-04-23] MEDS: ASPIRIN EC 81 MG TABLET PO (17:23)
[2021-04-23] MEDS: FLUCONAZOLE 200 MG/100 ML PIGGYBACK 100 MG IV (20:03)
[2021-04-23] MEDS: ATORVASTATIN 20 MG TABLET 40 MG PO (21:07)
[2021-04-23] MEDS: PRAMIPEXOLE 0.25 MG TABLET 0.5 MG PO (21:11)
[2021-04-23] MEDS: NORTRIPTYLINE HCL 25 MG CAPSULE PO (21:11)
[2021-04-23] MEDS: MONTELUKAST 10 MG TABLET PO (21:11)
[2021-04-24] VITALS (7 sets, daily range): BP systolic 120–161; BP diastolic 72–87; PULSE 51–88; RESP 14–20; TEMP 35.5–36.8; O2SAT 90–98
[2021-04-24] MEDS: methylPREDNISolone 125 MG/2 ML VIAL 60 MG IV ×2 (01:22→06:46)
[2021-04-24] MEDS: PIPERACILLIN/TAZO 3.375 GM in SODIUM CHLORIDE 0.9% 100 ML 25 ML IV (04:36)
[2021-04-24 05:29] LABS: Phosphorous 3.7 mg/dL (2.8-4.1)
[2021-04-24] MEDS: diphenhydrAMINE 25 MG TABLET PO (06:18)
[2021-04-24] MEDS: LEVOTHYROXINE 75 MCG TABLET PO (06:18)
[2021-04-24] MEDS: DOXYCYCLINE 100 MG in SODIUM CHLORIDE 0.9% 100 ML IV (06:18)
[2021-04-24] MEDS: SODIUM CHLORIDE 0.9% FLUSH 10 ML IV ×2 (06:19→08:24)
[2021-04-24] MEDS: INSULIN LISPRO 100 UNIT/ML 3ML VIAL SUBCUT ×2 (08:16→12:24)
[2021-04-24] MEDS: ENOXAPARIN 40 MG/0.4 ML SYRINGE SUBCUT (08:16)
[2021-04-24] MEDS: INSULIN GLARGINE 100 UNIT/ML 3ML PEN 30 UNIT SUBCUT (08:22)
[2021-04-24] MEDS: SPIRONOLACTONE 25 MG TABLET 50 MG PO (08:25)
[2021-04-24] MEDS: CHOLECALCIFEROL (VITAMIN D3) 1,000 UNIT TABLET 2000 UNIT PO (08:25)
[2021-04-24] MEDS: FERROUS SULFATE 325 MG TABLET PO (08:26)
[2021-04-24] MEDS: LOSARTAN 50 MG TABLET PO (08:26)
[2021-04-24] MEDS: cloNIDine 0.1 MG TABLET PO (08:26)
[2021-04-24] MEDS: PREGABALIN 50 MG CAPSULE 200 MG PO (08:26)
[2021-04-24] MEDS: guaiFENesin ER 600 MG TAB 1200 MG PO (08:26)
[2021-04-24] MEDS: LACTOBACILLUS ACIDOPHILUS TABLET 1 EACH PO ×2 (08:26→12:24)
[2021-04-24] MEDS: LORATADINE 10 MG TABLET PO (08:29)
[2021-04-24] MEDS: ALBUTEROL/IPRATROPIUM 3 ML AMPUL INH ×2 (11:56→11:57)
[2021-04-24] MEDS: BUDESONIDE 0.5 MG/2 ML NEB INH (11:56)
--- NOTE | 2021-04-24 12:13 | PT.IPTN ---
Current Diagnoses Sepsis, unspecified organism (04/20/21) Physical Therapy Treatment Note M2 PT-IP Current Condition Start: 04/21/21 09:06 Freq: NEEDED Status: Active Protocol: Document 04/21/21 12:35 MB (Rec: 04/21/21 13:28 MB [id number]) Physical Therapy Current Condition Current Condition Evaluation Date 04/21/21 Treatment Diagnosis Debility d/t MRSA PNA M3 PT-IP Subjective Start: 04/21/21 09:06 Freq: NEEDED Status: Active Protocol: Document 04/24/21 11:55 RBD (Rec: 04/24/21 13:26 RBD [id number]) Subjective Physical Therapy Visit Type Type Treatment Note Visit Start Time 11:55 Visit Stop Time 12:13 Total Visit Minutes 18 Notes Pt agreeable to working w/ therapy. Number of HAM PUMPER Visits 1 M4 PT-IP Mobility and Gait Start: 04/21/21 09:06 Freq: NEEDED Status: Active Protocol: Document 04/24/21 11:55 RBD (Rec: 04/24/21 13:26 RBD [id number]) PT-Transfer Assessment Sit to and From Stand Sit to and from Stand Standby Assistance Equipment Transfer Assistive Device Bed Rail,Straight Cane Transfers Transfer Destination Chair Transfer Technique Pt ambulated w/ SPC Transfer Ability Level of Assist Standby Assistance,1 Person Assistance,Use of Upper Extremities Comments Mobility Comments Pt I, on room air, at sink brushing teeth upon arrival. She ambulated ~30 feet around room w/ SPC to chair O2 90%. Seated rest and O2 went to 95% on room air. Gait Assessment Gait Gait Assistance Required: Standby Assistance Distance (Feet) 30 Assistive Devices Orthotic/Prosthetic Devices or Brace: No Gait Deviations General Gait Pattern Decreased Stride Length, Decreased Feet Clearance, Flexed Trunk Factors Limiting Gait Function Factors Limiting Gait Function Decreased Activity Tolerance, Decreased Strength Comments Gait Comments Pt ambulated ~30 ft w/ SPC. Required min verbal cueing for cane management. Stair Climbing Assessment Evaluation Level of Assist On Stairs Standby Assistance,Contact Guard Assistance Devices Stair Climbing Assistive Devices Straight Cane Technique/Endurance Stair Climbing Direction Ascend and Descend Stair Climbing Technique Step Over Step Number of Steps Climbed 3 Stair Climbing Set # Repetitions (reps) 1 Comments Stair Climbing Comments Used wheelchair to get to therapy stairs. Upon arrial O2 was 94%. Pt denied lightheadedness or dizziness. Performed Sit<>Stand SBA. CGA for stair ambulation. Used L hand rail and SPC for assending stairs. Used bilateral hand rails for deccending stairs. O2 80% upon sitting in wheelchair. Pt denied light headedness or dizziness. Utilized wheelchair to return to room. O2 was 90% on room air. PT-Balance Assessment Sitting Balance and Reactions Static Sitting Balance Ability Good Dynamic Sitting Balance Ability Good Standing Balance and Reactions Static Standing Balance Ability Good Dynamic Standing Balance Ability Good Device Used SPC M5 PT-IP Objective Assessments Start: 04/21/21 09:06 Freq: NEEDED Status: Active Protocol: Document 04/21/21 12:35 MB (Rec: 04/21/21 13:28 MB [id number]) Orientation Orientation/Cognition Level of Alertness Alert Orientation Name,Age,Birthday,Month,Date, Year,Day of Week,Place, Situation Language Function Ability No Deficits Noted Safety Awareness Understands Safety Issues Memory Description No Deficits Noted Gross Range of Motion Upper Extremity ROM Assessment Within Functional Limits Lower Extremity ROM Assessment Within Functional Limits Strength Upper Extremity Strength Assessment Within Functional Limits Lower Extremity Strength Assessment Within Functional Limits Sensation Assessment Comments Sensation Comments Pt reports some numbness in her toes M6 PT-IP Treatment Start: 04/21/21 09:06 Freq: NEEDED Status: Active Protocol: Document 04/24/21 11:55 RBD (Rec: 04/24/21 13:26 RBD [id number]) Physical Therapy Treatment Education Education Provided Safety Other Treatments Other Treatment Performed Disscussed safe ambulation on stairs at home. M7 PT-IP Assessment and Plan Start: 04/21/21 09:06 Freq: NEEDED Status: Active Protocol: Document 04/24/21 11:55 RBD (Rec: 04/24/21 13:26 RBD [id number]) PT Summary Assessment and Plan Potential Rehabilitation Potential Good Status of Condition at Evaluation Evolving Summary Impairments Strength,Balance,Gait,Activity Tolerance Assessment Summary Pt SBA to I for transfers and ambulation. Practiced w/ Pts SPC when ambulating in the room and on the stairs. She was to complete 3 steps w/ rail and CGA. Would benefit from HHPT or outpatient therapy to improve gait, balance, and tolerance for activity. Goals Bed Mobility Goal Independent Transfer Goal Independent Gait Goal Independent Gait Distance 50 Other Goals Ascend and descend 2 steps with rail and CGA to allow safe home entry. Frequency of Treatment Frequency Of Treatment Once a Day Treatment Plan Physical Therapy Treatment Plan Bed Mobility Training,Transfer Training,Gait Training, Therapeutic Exercise,Balance Retraining,Discharge Planning Other Recommendations and Next Treatment Ambulation w/ SPC, Stair and Focus gait training to prepare for d /c Precautions Other Precautions Fall risk Recommendations To Nursing Amount of Assist Needed 1 Person Assist Discharge Recommendations PT Discharge Recommendations Home with 06/11 Assist Available,Home Health, Outpatient PT Transportation Needs at Discharge Private Vehicle
--- NOTE | 2021-04-24 13:04 | PC.NURSE ---
Assess- Patient is alert and oriented x3, she is going to go home on iv antibiotics. BS 311, 7u of lispro given. [facility] here now instructing patient on use of machine. BS have improved since yesterday, she is 93% on RA off of Ra and ambulating patient drops to the low 80s. She is set up with home oxygen at home.
--- NOTE | 2021-04-24 13:33 | CM.DPC ---
DCP/continued: Reviewed chart. Per provider patient is medicallly stable to d/c home with IV abx. Per CM notes current plan is that patient will receive IV abx from [facility]. TAPPING MACHINE OPERATOR placed call to [facility] and left message with answering service. No d/c summary available to fax at this time. TAPPING MACHINE OPERATOR will fax when it becomes available. In addition, spoke with spouse/Lucas and he is prepared to take patient home. P: Home today with HH for IV infusion with [facility]. DARREN
--- NOTE | 2021-04-24 20:03 | P.DS_ITS ---
History of Present Illness History of Present Illness Chief complaint: SOB Narrative: THIS IS A 71-YEAR-OLD FEMALE MORBIDLY OBESE WITH AN EXTENSIVE PAST MEDICAL HISTORY INCLUDING MULTIPLE BOUT WITH PSEUDOMONAS PNEUMONIA. ? PATIENT IS BEING FOLLOWED BY INFECTIOUS DISEASE AND PULMONOLOGY OUTPATIENT ?PER LAST REPORT? FROM HER PROVIDERS,? PATIENT HAS BEEN TREATED INHALER ANTIBIOTICS TO SEVERE PNEUMONIA AND BRONCHIECTASIS. ?? PATIENT ALSO HAS COMMON VIABLE IMMUNODEFICIENCY. ? PATIENT STATED THAT? UP TO 24 HOURS? AGO, SHE WAS DOING VERY WELL? SHE WENT MANY APPOINTMENTS WITH HER WAS ABLE TO AMBULATE ANY SIGNIFICANT ISSUES ?SHE HAS RECENTLY COMPLETED A COURSE OF MULTIPLE ANTIBIOTICS INCLUDING? ? MEROPENEM ?SHE WENT TO SLEEP LAST NIGHT IN HER USUAL STATE OF HEALTH HOWEVER IN THE MORNING THE REPORTED THAT WHEN HE CHECKED ON HER AFTER EATING SOME COUGHING. HE FOUND HER TO BE HYPOXIC AND IN MODERATE DISTRESS. ? EMS WAS CALLED AND PATIENT WAS TAKEN TO THE ER. ? IN THE ER, A CT SCAN OF THE CHEST? WITH CONTRAST DID NOT SHOW SIGN OF PE HOWEVER BILATERAL PNEUMONIA WAS STILL EVIDENT ?ABG DID NOT SHOW EVIDENCE OF SIGNIFICANT SEED BASE DISORDER.? ALTHOUGH SHE WAS ? HYPOXIC Discharge Providers Provider Date of admission: 04/20/21 14:13 Discharge Date: 04/24/21 Primary care physician: Karin Porter MD Consults: 04/20/21 10:13 Consult to Respiratory Therapy Evaluate & Treat Comment: Physician Instructions: Evaluate and treat 04/20/21 17:45 Consult to Discharge Planning Routine Comment: Consult to Occupational Therapy Evaluate & Treat Comment: Physician Instructions: Evaluate and treat Consult to Physical Therapy Evaluate & Treat Comment: Physician Instructions: Evaluate and Treat Discharge provider: Jorge Mansfield MD Summary Hospital Course Discharge Diagnosis: 1. Bilateral bacterial pneumonia 2. Sepsis 3. Acute kidney injury 4. Type 2 diabetes insulin dependent 5. Chronic bronchiectasis 6. Acute on chronic hypoxic respiratory failure As noted patient was admitted with recurrent pneumonia and respiratory failure. She has history of recurrent Pseudomonas pneumonia. On this admission her sputum culture did not grow anything and also blood cultures are negative. COVID-19 was negative. She was treated empirically with Zosyn. She was also put on doxycycline based on a history staph aureus in a sputum specimen from January 2020. Patient had improvement in clinical status dyspnea and productive cough. Her O2 sat was 90% on room air at time of discharge. [facility] will be delivering home O2 for as needed use. She will complete Zosyn IV antibiotic course on 05/04/2021 as well as oral doxycycline course on 05/04/2021. [facility] will be managing the IV antibiotic. Patient will follow-up with her pavilion cutter. She is also being discharged on prednisone taper. She is normally on low-dose daily prednisone 5 mg q.d. at baseline. Status at Discharge Cognitive/behavioral status at discharge: oriented Functional status at discharge: independent ambulation Overall status at discharge: patient is progressing back to baseline Time Spent with Patient Time spent: Greater than 30 minutes Exam Vital Signs (past 8 hours): - 04/24/21 12:17 Pulse Rate 88 Respiratory Rate 20 Pulse Oximetry 90 L Fraction of Inspired Oxygen 50 Oxygen Delivery Method Room Air Oxygen Flow Rate 0 Narrative Exam Narrative: General: Alert, NAD, breathing nonlabored Lungs: Clear to auscultation Heart: Regular rhythm Extremities: Chronic nonpitting edema bilateral LE Objective Labs Result Diagrams: 04/23/21 06:45 04/23/21 06:45 Labs: Laboratory Results - last 24 hr 04/24/21 05:05 Phosphorus 3.7 Magnesium 2.0 [facility] Medical History Abnormal chest xray (~1979) Anemia Ankle pain Asthma (~1959) Bronchiectasis (~2006) Cervical spine disease Chronic back pain Colon polyps (~2015) Degenerative joint disease of spine (~2001) Diabetes mellitus, type II (~2009) Eczema Fibromyalgia Foot pain Hoarseness Hyperlipidemia Hypertension Hypothyroidism Migraines (~1964) 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 Osteopenia Pneumonia Pneumonia Recurrent sinusitis (~1970) Restless leg syndrome Shoulder pain (~03/2018) Sleep apnea Wears glasses Surgical History Anesthesia History of carpal tunnel release History of cataract removal with insertion of prosthetic lens (~2014) History of section History of laminectomy (~2002) History of spinal fusion (~2012) History of thumb surgery Family History Father Stroke Mother Hypertension Brother Cerebral aneurysm Prostate cancer Diabetes mellitus Hypertension Stroke Brother Arthritis Hyperlipidemia Hypertension Sister History of kidney cancer Hypertension Grandfather Cancer Grandmother Cancer Other Family history non-contributory Social History household members: spouse Smoking Status: Never smoker alcohol intake: current Discharge Plan Discharge Plan Patient Disposition: Home Health Service Discharge orders & Medications Prescriptions: New piperacillin-tazobactam 3.375 gram Recon Soln 3.375 gm IV Q8H Qty: 63 0RF benzonatate 100 mg Capsule 100 mg PO TID PRN (Reason: Cough) Qty: 30 0RF Bacid 1 billion cell- 250 mg Tablet 1 ea PO TIDWM Qty: 90 3RF fluconazole [Diflucan] 200 mg tablet 200 mg PO DAILY Qty: 20 0RF doxycycline hyclate 100 mg tablet 100 mg PO BID Qty: 42 0RF scopolamine base 1 mg over 3 days patch 3 day 1 patch transdermal Q3D Qty: 10 0RF prednisone 10 mg tablet 10 mg PO DIRECTED Qty: 30 0RF Rx Instructions: 40MG PO X 3 DAYS 30MG PO X 3 DAYS 20MG PO X 3 DAYS 10MG PO DAILY UNTIL STOPPED BY PCP OR PULM Continued Mucinex 1,200 MG tablet extended release 12hr 1,200 mg PO Q12H Qty: 0 0RF polyethylene glycol 3350 [Miralax] 119 GM powder 17 gm PO DAILY PRN (Reason: Constipation) Qty: 0 0RF ondansetron HCl [Zofran] 4 mg tablet 4 mg PO Q8H PRN (Reason: nausea and vomiting) Qty: 30 1RF clonidine HCl 0.1 mg tablet 0.1 mg PO BID Qty: 180 0RF Rx Instructions: PT WILL NEED TO BE SEEN BEFORE NEXT RENEWAL 08/05/20 losartan 50 mg tablet 50 mg PO DAILY Qty: 90 0RF Rx Instructions: PT WILL NEED TO BE SEEN BEFORE NEXT RENEWAL 08/05/20 metformin 1,000 mg tablet 1,000 mg PO BID Qty: 180 0RF Rx Instructions: PT DUE FOR APPT PRIOR TO END OF CURRENT RX. PLEASE CALL TO SCHEDULE APPT. THANKS 09/03/20 Belbuca 150 mcg film 750 mcg buccal Q12H 0RF pramipexole 0.5 mg tablet 0.5 mg PO BEDTIME Qty: 15 0RF Rx Instructions: NO FUTURE FILLS UNTIL SEEN. PATIENT OVERDUE FOR APPT. PLEASE CALL TO SCHEDULE APPT. THANKS. 02/28/21 Privigen 10 % solution 45 gram IV Q3W 0RF ferrous sulfate 325 mg (65 mg iron) tablet 325 mg PO DAILY 0RF spironolactone 50 mg tablet 50 mg PO DAILY 0RF tizanidine 4 mg capsule 4 mg PO QID PRN (Reason: Muscle Spasm) 0RF aspirin 81 mg tablet,delayed release (DR/EC) 81 mg PO QPM 0RF cholecalciferol (vitamin D3) 2,000 unit tablet 2,000 unit PO DAILY 0RF albuterol sulfate 90 mcg/actuation HFA aerosol inhaler 2 puff INHALATION Q4-6H PRN (Reason: Shortness Of Breath) 0RF fluticasone propionate [Flonase Allergy Relief] 50 mcg/actuation spray,suspension 1 spray NASAL BID PRN (Reason: Allergy Symptoms) 0RF sodium chloride 3 % Solution For Nebulization 3 ml INHALATION DIRECTED 0RF Rx Instructions: use w/ nebulizer 2 x daily montelukast [Singulair] 10 mg Tablet 10 mg PO BEDTIME 0RF Zyrtec 10 mg Capsule 10 mg PO DAILY 0RF pregabalin 200 mg Capsule 200 mg PO BID 0RF oxycodone 10 mg Tablet 10 mg PO QID PRN (Reason: Pain (Scale Score 7-10)) 0RF atorvastatin 40 mg Tablet 40 mg PO BEDTIME 0RF ipratropium-albuterol 0.5 mg-3 mg(2.5 mg base)/3 mL Solution For Nebulization 3 ml INHALATION Q4H PRN (Reason: wheezing/ shortness of breath) 0RF ipratropium-albuterol 0.5 mg-3 mg(2.5 mg base)/3 mL Solution For Nebulization 3 ml INHALATION BID 0RF sikjlzwiga-axnscggwzrlxg-uean 50-325-40 mg Tablet 1 tab PO Q4H PRN (Reason: Migraine Headache) 0RF levothyroxine 75 mcg Tablet 75 mcg PO QAM 0RF nortriptyline 25 mg Capsule 25 mg PO BEDTIME 0RF fluticasone propion-salmeterol [Advair Diskus] 500-50 mcg/dose Blister With Device 1 inh INHALATION Q12H 0RF epinephrine [EpiPen] 0.3 mg/0.3 mL Auto-Injector 0.3 mg IM Q5-15M PRN (Reason: Allergic Reaction) 0RF Rx Instructions: do not exceed 3 doses per episode Spiriva with HandiHaler 18 mcg Capsule, W/Inhalation Device 1 cap INHALATION DAILY 0RF Rx Instructions: puncture 1 cap using device; one dose = 2 inhalations Mucinex 1,200 mg Tablet Extended Release 12hr 1,200 mg PO BID 0RF naproxen sodium [Aleve] 220 mg Capsule 220 mg PO BID PRN (Reason: Pain (Scale Score 4-6)) 0RF insulin glargine 100 unit/mL solution 30 unit SUBCUT DAILY 0RF furosemide [Lasix] 20 mg tablet 20 mg PO QAM 0RF insulin lispro [Humalog KwikPen Insulin] 100 unit/mL insulin pen 4 - 8 unit SUBCUT TID 0RF Discontinued prednisone 10 mg tablet 5 mg PO AMCC 0RF No Action (DME) insulin syringe-needle U-100 [BD Insulin Syringe Ultra-Fine] 0.5 mL 31 gauge x 5/16 syringe See Rx Instructions .ROUTE .MEDSUPPLY Qty: 100 1RF Rx Instructions: Use once a day as directed (DME) verio reflect glucometer Qty: 1 0RF Rx Instructions: As directed Follow up/Referrals: Karin Porter MD [Primary Care Provider] - Diet/Activity/Treatments Diet: Low-fat, Low-sodium and Low-cholesterol Activity: TOLERATED Skin/Wound/Dressing Care Report to your healthcare provider any signs of infection, such as:: chills, fever, night sweats, unusual drainage and unusual redness Visit Report/Discharge Packet Instructions: Acute Respiratory Distress Syndrome, Doxycycline (By mouth) Discharge Data Primary Care Provider: Karin Porter Quality VTE Deep Vein Thrombosis/Pulmonary Embolism Present on Admission: No
--- NOTE | 2021-04-25 14:11 | CM.DANOTE ---
DCP/continued: D/C summary faxed to [facility]. DARREN
== END 2021-04-24 13:45 | disposition home health service (06) | DRG 177 ==
LOC: ED 10:24 → AC 14:14
PROVIDERS: Admitting Provider Hospitalist; Emergency Provider Emergency Medicine; Family Provider Internal Medicine Infectious Disease; PCP Internal Medicine; Referring Provider Emergency Medicine; Visit Provider Hospitalist
DX: J15.8 Pneumonia due to other specified bacteria (principal); J96.21 Acute and chronic respiratory failure with hypoxia; Z68.42 Body mass index [BMI] 45.0-49.9, adult; E27.49 Other adrenocortical insufficiency; N17.9 Acute kidney failure, unspecified; J15.1 Pneumonia due to Pseudomonas; E66.01 Morbid (severe) obesity due to excess calories; J47.9 Bronchiectasis, uncomplicated; G89.4 Chronic pain syndrome; E11.9 Type 2 diabetes mellitus without complications; I10 Essential (primary) hypertension; G25.81 Restless legs syndrome; E78.5 Hyperlipidemia, unspecified; E03.9 Hypothyroidism, unspecified; J45.909 Unspecified asthma, uncomplicated; G47.33 Obstructive sleep apnea (adult) (pediatric); Z79.84 Long term (current) use of oral hypoglycemic drugs; Z79.4 Long term (current) use of insulin; Z20.822 Contact with and (suspected) exposure to COVID-19
CPT/HCPCS: 36415; 36569; 36592; 36600; 71045; 71275; 80053; 81001; 82550; 82553; 82805; 82962; 83605; 83735; 83880; 84100; 84145; 84484; 85025; 85379; 87040; 87070; 87205; 87633; 87635; 93005; 93010; 94618; 94640; 94660; 94760; 94762; 96361; 96365; 96366; 96367; 96375; 97116; 97161; 97165; 97530; 99285; 99291; C9803; J1450; J1642; J1650; J1815; J1885; J1956; J2185; J2543; J2930; Q9967

== ENCOUNTER 2021-04-29 11:34 | Inpatient (IN) | payer MEDICARE, SELFPAY ==
[2021-04-20 12:20] VITALS: PULSE 112
[2021-04-20 17:26] VITALS: RESP 24; O2SAT 97
[2021-04-20 19:21] VITALS: BMI 46.8
[2021-04-29] VITALS (38 sets, daily range): BP systolic 136–184; BP diastolic 73–91; PULSE 54–111; RESP 16–58; TEMP 36.2–36.9; O2SAT 88–97; BMI 46.8
--- NOTE | 2021-04-29 11:45 | DI.RAD.S_ITS ---
PROCEDURE: XR CHEST 1V INDICATIONS: chest pain TECHNIQUE: One view of the chest was acquired. COMPARISON: [facility], CT, CT ANGIO CHEST PE PROTOCOL, 04/20/2021, 14:34. [facility], CR, XR CHEST 1V, 04/20/2021, 10:45. [facility], CR, XR CHEST FOR PICC 1V, 04/20/2021, 13:40. FINDINGS: Surgical changes and devices: None. Lungs and pleura: Faint appearance right basilar and retrocardiac opacities. No pleural effusions or pneumothorax. Mediastinum: Mediastinal contours appear normal. Heart size is enlarged. Bones and chest wall: No suspicious bony lesions. Overlying soft tissues appear unremarkable. IMPRESSION: Faint right basilar and retrocardiac opacities likely service liaison representative of airspace disease identified on prior exam. Dictated by: Melony Boss M.D. on 04/29/2021 at 13:03 Approved by: Melony Boss M.D. on 04/29/2021 at 13:05
[2021-04-29 12:24] LABS: Appearance Urine UA CLEAR; Bilirubin Urine UA NEGATIVE (NEGATIVE); Color Urine UA YELLOW; Glucose Urine UA NEGATIVE (Negative); Ketones Urine UA NEGATIVE (NEGATIVE); Leukocyte Esterase Urine UA NEGATIVE (NEGATIVE); Nitrite Urine UA NEGATIVE (Negative); Occult Blood Urine UA TRACE-INTACT (Negative); Protein Urine UA NEGATIVE (Negative); Specific Gravity Urine UA <=1.005 (1.000-1.035); Urobilinogen Urine UA 0.2 E.U./dL (0.2); pH Urine UA 6.5 (4.5-8.0)
[2021-04-29 12:28] LABS: Bacteria Urine None Seen; Culture Indicated Urine Cult Not Indicated; RBC Urine None Seen (0-5/HPF); Urine Comments Microscopic Normal; WBC Urine None Seen (0-5/HPF)
--- NOTE | 2021-04-29 12:49 | ED_ITS ---
HPI - Arrhythmia/Palpitations General Chief Complaint: Arrhythmia/Palpitations Stated Complaint: irregular heart rate Time Seen by Provider: 04/29/21 11:38 Source: patient and family Mode of arrival: Wheelchair Limitations: no limitations History of Present Illness HPI narrative: This is a 71-year-old female with recent bilateral pneumonia which is suspected to be Pseudomonas who was discharged 9th after recurrent hospitalizations and has been discharged home on IV antibiotics patient does have a PICC line in [facility] she has been receiving her antibiotics. She is currently on prednisone. She was found to be septic but without hypotension, elevated lactate and had negative blood cultures during her hospitalization. She has known diabetes type 2, chronic bronchiectasis, common variable immuno deficiency (CVID) and she was discharged home on several L of O2 as needed. She has been using at night but not during the day. She is also on medication for. Today she noticed that she was having clammy and are heart rate seems low. She did check her temperature at home and states it was normal. She feels little bit better here on oxygen she was not using her home O2. This started at 8:39 a.m. this morning she has had persistent shortness of breath but no worsening symptoms. No chest pain or pressure. She has had a cough that continues to be productive in the hospital was bloody than black and now is a melchor coloration. She usually has some normal productive sputum but this is still a different color. She had cultures repeated on Sunday with a sputum culture. She denies any nausea or vomiting. No abdominal pain. She states both her lower extremities have or little bit swollen in the hospital and have worsened in the last 1-2 days. She did take an extra dose of Lasix today. She denies any issues with bowel movements or urination. No diarrhea constipation. No dysuria urgency or frequency. Patient is following with Infectious Disease Dr. 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 Maharaj at [facility]. Related Data Home Medications Medication Instructions Recorded Confirmed guaifenesin 1,200 mg tablet, 1,200 mg PO Q12H #0 06/06/17 04/29/21 extended release 12 hr (Mucinex) polyethylene glycol 3350 17 17 gm PO DAILY PRN #0 06/06/17 04/29/21 gram/dose oral powder (Miralax) albuterol sulfate 90 mcg/actuation 2 puff INHALATION Q4-6H PRN 05/29/19 04/29/21 aerosol inhaler aspirin 81 mg tablet,delayed 81 mg PO QPM 05/29/19 04/29/21 release cholecalciferol (vitamin D3) 50 2,000 unit PO DAILY 05/29/19 04/29/21 mcg (2,000 unit) tablet ferrous sulfate 325 mg (65 mg 325 mg PO BEDTIME 05/29/19 04/29/21 iron) tablet immune glob,gamm(IgG) 10 %-pro-IgA 45 gram IV Q3W ml 05/29/19 04/29/21 0 to 50 mcg/mL intravenous solution (Privigen) spironolactone 50 mg tablet 50 mg PO DAILY 05/29/19 04/29/21 tizanidine 4 mg capsule 4 mg PO QID PRN 05/29/19 04/29/21 fluticasone propionate 50 1 spray NASAL BID PRN 05/31/19 04/29/21 mcg/actuation nasal spray,suspension (Flonase Allergy Relief) sodium chloride 3 % for 3 ml INHALATION DIRECTED 06/05/19 04/29/21 nebulization cetirizine 10 mg capsule (Zyrtec) 10 mg PO DAILY 01/20/20 04/29/21 montelukast 10 mg tablet 10 mg PO BEDTIME 01/20/20 04/29/21 (Singulair) atorvastatin 40 mg tablet 40 mg PO BEDTIME 04/20/21 04/29/21 adnuvxospc-rybsmsxdzqxpl-ueuslyqw 1 tab PO Q4H PRN 04/20/21 04/29/21 50 mg-325 mg-40 mg tablet epinephrine 0.3 mg/0.3 mL 0.3 mg IM Q5-15M PRN 04/20/21 04/29/21 injection, auto-injector (EpiPen) fluticasone 500 mcg-salmeterol 50 1 inh INHALATION Q12H 04/20/21 04/29/21 mcg/dose blistr powdr for inhalation (Advair Diskus) furosemide 20 mg tablet (Lasix) 20 mg PO QAM 04/20/21 04/29/21 insulin glargine 100 unit/mL 30 unit SUBCUT DAILY 04/20/21 04/29/21 subcutaneous solution insulin lispro 100 unit/mL 4 - 8 unit SUBCUT TID 04/20/21 04/29/21 subcutaneous pen (Humalog KwikPen (U-100) Insulin) ipratropium 0.5 mg-albuterol 3 mg 3 ml INHALATION Q4H PRN 04/20/21 04/29/21 (2.5 mg base)/3 mL nebulization soln levothyroxine 75 mcg tablet 75 mcg PO QAM 04/20/21 04/29/21 naproxen sodium 220 mg capsule 220 mg PO BID PRN 04/20/21 04/29/21 (Aleve) nortriptyline 25 mg capsule 25 mg PO BEDTIME 04/20/21 04/29/21 oxycodone 10 mg tablet 10 mg PO QID PRN 04/20/21 04/29/21 pregabalin 200 mg capsule 200 mg PO BID 04/20/21 04/29/21 tiotropium bromide 18 mcg capsule 1 cap INHALATION DAILY 04/20/21 04/29/21 with inhalation device (Spiriva with HandiHaler) lansoprazole 15 mg capsule,delayed 30 mg PO DAILY 04/29/21 04/29/21 release (Prevacid 24Hr) meropenem 1 gram intravenous 2 g IV Q8HR 04/29/21 04/29/21 solution prednisone 10 mg tablet 10 mg PO DIRECTED 04/29/21 04/29/21 Previous Rx's Medication Instructions Recorded ondansetron HCl 4 mg tablet 4 mg PO Q8H PRN #30 tab 10/06/19 (Zofran) verio reflect glucometer #1 ea 01/28/20 insulin syringe-needle U-100 0.5 #100 ea 03/30/20 mL 31 gauge x 5/16 (BD Insulin Syringe Ultra-Fine) clonidine HCl 0.1 mg tablet 0.1 mg PO BID #180 tab 08/05/20 losartan 50 mg tablet 50 mg PO DAILY #90 tab 08/05/20 metformin 1,000 mg tablet 1,000 mg PO BID #180 tab 09/03/20 pramipexole 0.5 mg tablet 0.5 mg PO BEDTIME #15 tab 02/28/21 L.acidophilus-L.bulgar-B.bifid-S.thermoph 1 ea PO TIDWM #90 tab 04/22/21 1 billion cell-250 mg tablet (Bacid) doxycycline hyclate 100 mg tablet 100 mg PO BID #42 tab 04/22/21 fluconazole 200 mg tablet 200 mg PO DAILY #20 tab 04/22/21 (Diflucan) Allergies Allergy/AdvReac Type Severity Reaction Status Date / Time hydroxychloroquine Allergy Unknown Verified 04/29/21 11:50 [HYDROXYCHLOROQUINE] promethazine [From Phenergan] Allergy Agitated Verified 04/29/21 11:50 cefepime AdvReac Severe pruritis Verified 04/29/21 11:50 Review of Systems Review of Systems ROS Unobtainable: All systems reviewed & are unremarkable except as noted in HPI and below Patient History Medical History Abnormal chest xray (~1979) Anemia Ankle pain Asthma (~1959) Bronchiectasis (~2006) Cervical spine disease Chronic back pain Colon polyps (~2015) Degenerative joint disease of spine (~2001) Diabetes mellitus, type II (~2009) Eczema Fibromyalgia Foot pain Hoarseness Hyperlipidemia Hypertension Hypothyroidism Migraines (~1964) 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 Osteopenia Pneumonia Pneumonia Recurrent sinusitis (~1970) Restless leg syndrome Shoulder pain (~03/2018) Sleep apnea Wears glasses Surgical History Anesthesia History of carpal tunnel release History of cataract removal with insertion of prosthetic lens (~2014) History of section History of laminectomy (~2002) History of spinal fusion (~2012) History of thumb surgery Family History Father Stroke Mother Hypertension Brother Cerebral aneurysm Prostate cancer Diabetes mellitus Hypertension Stroke Brother Arthritis Hyperlipidemia Hypertension Sister History of kidney cancer Hypertension Grandfather Cancer Grandmother Cancer Other Family history non-contributory Social History household members: spouse Smoking Status: Never smoker alcohol intake: current Smoking Status: Never smoker alcohol intake frequency: holidays/special occasions only Substance Use Type: does not use Exam Narrative Exam Narrative: GENERAL: Alert and oriented x three, obese female in mild distress. HEENT: Head normocephalic, atraumatic, EOMI, pupils reactive, face symmetric, moist mucous membranes NECK: Supple, full range of motion CARDIOVASCULAR: Regular rate and rhythm without murmurs, rubs or gallops. Bilateral lower extremity swelling. No warmth, erythema. Patient does have chronic venous stasis changes present. RESPIRATORY: Breath sounds equal bilaterally, no wheezes rales or rhonchi. No tachypnea accessory muscle use. Speaks in full sentences. ABDOMEN: Soft, nontender. Normoactive bowel sounds all 4 quadrants. No guarding or rebound, rigidity, no mass : No CVA tenderness EXTREMITIES: Normal range of motion. Neurovascularly intact NEUROLOGICAL: Cranial nerves II through XII grossly intact. Moving all extremities SKIN: Warm, dry, no petechiae, no rashes or lesions appreciated. Initial Vital Signs Initial Vital Signs: Vital Signs Pulse Rate 104 H 04/29/21 11:42 Pulse Oximetry 88 L 04/29/21 11:42 Course Orders Ordered: ED Orders 04/29/21 11:44 EKG-12 Lead Stat 04/29/21 11:45 XR chest 1V Stat 04/29/21 11:46 Respiratory Panel (Film Array) Stat 04/29/21 12:22 Urinalysis and Microscopic Stat 04/29/21 12:45 Complete Blood Count AUTO DIFF Stat Comprehensive Metabolic Panel Stat Lipase Stat Magnesium Stat NT-proBNP (BNP-Adult 18+) Stat Troponin & CK Cardiac Panel Stat 04/29/21 13:10 periph venous low extrem bi Stat 04/29/21 13:25 Lactate (Lactic Acid) Stat Procalcitonin Stat 04/29/21 13:35 Blood Culture Stat 04/29/21 14:18 EC echo doppler complete Stat 04/29/21 14:44 Trop I [Troponin I] Stat Heparin Sodium (Porcine) (Heparin Flush (Cl/Picc/Mid-Line) 50 Unit/5 Ml Syringe) 50 unit IV PRN PRN PRN Reason: Flush Last Admin: 04/29/21 17:39 Dose: 50 unit Documented by: Admin: 04/29/21 14:22 Dose: 50 unit Documented by: LALITA Discontinued Medications Aspirin (Aspirin 81 Mg Chew Tab) 324 mg PO NOW ONE Stop: 04/29/21 14:19 Last Admin: 04/29/21 14:22 Dose: 324 mg Documented by: LALITA Enoxaparin Sodium (Enoxaparin 150 Mg/Ml Syringe) 110 mg SUBCUT NOW ONE Stop: 04/29/21 16:46 Last Admin: 04/29/21 16:43 Dose: 110 mg Documented by: LALITA Furosemide (Furosemide 40 Mg/4 Ml Vial) 40 mg IV NOW ONE Stop: 04/29/21 13:25 Last Admin: 04/29/21 14:22 Dose: 40 mg Documented by: LALITA Meropenem 2 gm/ Sodium (Chloride) 100 mls @ 200 mls/hr IV NOW ONE Stop: 04/29/21 16:26 Last Infusion: 04/29/21 17:40 Dose: 0 mls/hr Documented by: Admin: 04/29/21 17:03 Dose: 200 mls/hr Documented by: LALITA Consultations Consultation #1: [facility]. Recommends aspirin, echo, heparin if rising troponin. Recontact based on the findings. At this time if patient's troponin was not rising would potentially get a pharmacologic stress test after Consultation #2: Dr. Fan, hospitalist accepts for admission. Patient appears to have either NSTEMI was CHF or possibly demand ischemia. DVT ultrasound do show a small occlusive thrombus. We discussed starting Lovenox 1 make per kg subQ. Echo is pending but has not been reported. Patient's troponin is slightly downward trending. Patient does not appear to be in acute kidney injury. She is on IV antibiotics for pneumonia and these were continued. Vital Signs Vital signs: Vital Signs - 8 hr 04/29/21 11:42 04/29/21 11:43 04/29/21 11:45 Temperature Pulse Rate 104 H 102 H 95 H Respiratory Rate 32 H 22 Blood Pressure 184/83 H Pulse Oximetry 88 L 93 93 04/29/21 11:46 04/29/21 12:00 04/29/21 12:15 Temperature 98.5 F Pulse Rate 104 H 95 H 98 H Respiratory Rate 32 H 47 H Blood Pressure 184/83 H 136/85 Pulse Oximetry 93 96 94 04/29/21 12:30 04/29/21 12:45 04/29/21 13:00 Temperature Pulse Rate 94 H 98 H 93 H Respiratory Rate 34 H 49 H 46 H Blood Pressure Pulse Oximetry 96 97 95 04/29/21 13:15 04/29/21 13:30 04/29/21 13:45 Temperature Pulse Rate 94 H 101 H 103 H Respiratory Rate 24 31 H 40 H Blood Pressure Pulse Oximetry 96 04/29/21 14:00 04/29/21 14:15 04/29/21 14:30 Temperature Pulse Rate 108 H 92 H 91 H Respiratory Rate 37 H 26 H 24 Blood Pressure Pulse Oximetry 96 96 93 04/29/21 14:45 04/29/21 15:00 04/29/21 15:15 Temperature Pulse Rate 83 83 86 Respiratory Rate 33 H 17 23 Blood Pressure Pulse Oximetry 96 94 04/29/21 15:30 04/29/21 15:45 Temperature Pulse Rate 85 92 H Respiratory Rate 21 29 H Blood Pressure Pulse Oximetry 92 96 MDM - Arrhythmia/Palpitations Lab Data Result diagrams: 04/29/21 12:45 04/29/21 12:45 Labs: Lab Results 04/29/21 04/29/21 04/29/21 Range/Units 11:46 12:22 12:45 WBC 16.7 H (4.5-11.0) X10^3/uL RBC 4.83 (4.0-5.2) X10^6/uL Hgb 13.6 (12.0-16.0) g/dL Hct 40.9 (36-46) % MCV 84.5 (80-100) fL MCH 28.2 (26-34) PG MCHC 33.3 (30-36) % RDW 17.6 H (11.6-14.8) % Plt Count 309 (150-400) X10^3/uL Neut % (Auto) 87.9 H (50-75) % Lymph % (Auto) 7.2 L (25-40) % Sevier % (Auto) 4.6 (3-14) % Eos % (Auto) 0.0 L (2-4) % Baso % (Auto) 0.3 (0-2) % Neut # (Auto) 51822 H (3310-0841) /uL Lymph # (Auto) 1200 (3732-2019) /uL Sevier # (Auto) 800 (0-900) /uL Eos # (Auto) 0 (0-450) /uL Baso # (Auto) 0 (0-100) /uL Sodium (137-145) mmol/L Potassium (3.4-5.1) mmol/L Chloride (98-107) mmol/L Carbon Dioxide (22-32) mmol/L BUN (7-17) mg/dL Creatinine (0.52-1.04) mg/dL Estimated GFR (>60) mL/min BUN/Creatinine Ratio (6-22) Glucose (80-110) mg/dL Lactate (0.7-2.1) mmol/L Calcium (8.4-10.2) mg/dL Magnesium (1.6-2.3) mg/dL Total Bilirubin (0.2-1.3) mg/dL AST (14-36) IU/L ALT (<35) IU/L Alkaline Phosphatase (38-126) U/L Total Creatine Kinase (30-135) U/L CK-MB (CK-2) CK-MB (CK-2) Rel Index Troponin I (0.01-0.034) ng/mL NT-Pro-B Natriuret Pep (<125) pg/mL Total Protein (6.3-8.2) g/dL Albumin (3.5-5.0) g/dL Globulin (1.7-4.1) g/dL Albumin/Globulin Ratio (1.0-2.8) Lipase (23-300) U/L Procalcitonin (<0.5) ng/mL Urine Color Yellow Urine Appearance Clear Urine pH 6.5 (4.5-8.0) Ur Specific Westley <=1.005 (1.000-1.035) Urine Protein Negative (Negative) Urine Glucose (UA) Negative (Negative) g/dL Urine Ketones Negative (NEGATIVE) Urine Occult Blood Trace-intact (Negative) Urine Nitrate Negative (Negative) Urine Bilirubin Negative (NEGATIVE) Urine Urobilinogen 0.2 (0.2) E.U./dL Ur Leukocyte Esterase Negative (NEGATIVE) Urine RBC None seen (0-5/HPF) Urine WBC None seen (0-5/HPF) Urine Bacteria None seen (None) Ur Culture Indicated? Cult not indicated Micro UA Comment Microscopic normal Chlamy pneumoniae PCR Not detected (Not Detect) Adenovirus (PCR) Not detected (Not Detect) B. pertussis DNA (PCR) Not detected (Not Detecte) B.parapertussis DNA PCR Not detected (Not Detecte) Coronavirus OC43 (PCR) Not detected (Not Detect) Coronavirus HKU1 (PCR) Not detected (Not Detect) Coronavirus 229E (PCR) Not detected (Not Detect) SARS-CoV-2 (PCR) Not detected (Not Detecte) Coronavirus NL63 (PCR) Not detected (Not Detect) Human Metapneumovir PCR Not detected (Not Detect) Influenza Type A (PCR) Not detected (Not Detect) Influenza Type B (PCR) Not detected (Not Detect) M. pneumoniae (PCR) Not detected (Not Detect) Parainfluenza 1 (PCR) Not detected (Not Detect) Parainfluenza 2 (PCR) Not detected (Not Detect) Parainfluenza 3 (PCR) Not detected (Not Detect) Parainfluenza 4 (PCR) Not detected (Not Detect) RSV (PCR) Not detected (Not Detect) Entero/Rhino (PCR) Not detected (Not Detect) 04/29/21 04/29/21 04/29/21 Range/Units 12:45 13:25 13:25 WBC (4.5-11.0) X10^3/uL RBC (4.0-5.2) X10^6/uL Hgb (12.0-16.0) g/dL Hct (36-46) % MCV (80-100) fL MCH (26-34) PG MCHC (30-36) % RDW (11.6-14.8) % Plt Count (150-400) X10^3/uL Neut % (Auto) (50-75) % Lymph % (Auto) (25-40) % Sevier % (Auto) (3-14) % Eos % (Auto) (2-4) % Baso % (Auto) (0-2) % Neut # (Auto) (5102-9391) /uL Lymph # (Auto) (9706-3674) /uL Sevier # (Auto) (0-900) /uL Eos # (Auto) (0-450) /uL Baso # (Auto) (0-100) /uL Sodium 134 L (137-145) mmol/L Potassium 4.9 (3.4-5.1) mmol/L Chloride 98 (98-107) mmol/L Carbon Dioxide 31 (22-32) mmol/L BUN 34 H (7-17) mg/dL Creatinine 0.88 (0.52-1.04) mg/dL Estimated GFR > 60.0 (>60) mL/min BUN/Creatinine Ratio 38.6 H (6-22) Glucose 217 H (80-110) mg/dL Lactate 1.6 (0.7-2.1) mmol/L Calcium 9.7 (8.4-10.2) mg/dL Magnesium 1.6 (1.6-2.3) mg/dL Total Bilirubin 0.6 (0.2-1.3) mg/dL AST 25 (14-36) IU/L ALT 38 H (<35) IU/L Alkaline Phosphatase 73 (38-126) U/L Total Creatine Kinase 50 (30-135) U/L CK-MB (CK-2) TNP CK-MB (CK-2) Rel Index TNP Troponin I 0.133 H* (0.01-0.034) ng/mL NT-Pro-B Natriuret Pep 2120 H (<125) pg/mL Total Protein 7.4 (6.3-8.2) g/dL Albumin 3.9 (3.5-5.0) g/dL Globulin 3.5 (1.7-4.1) g/dL Albumin/Globulin Ratio 1.1 (1.0-2.8) Lipase 109 (23-300) U/L Procalcitonin 0.10 (<0.5) ng/mL Urine Color Urine Appearance Urine pH (4.5-8.0) Ur Specific Westley (1.000-1.035) Urine Protein (Negative) Urine Glucose (UA) (Negative) g/dL Urine Ketones (NEGATIVE) Urine Occult Blood (Negative) Urine Nitrate (Negative) Urine Bilirubin (NEGATIVE) Urine Urobilinogen (0.2) E.U./dL Ur Leukocyte Esterase (NEGATIVE) Urine RBC (0-5/HPF) Urine WBC (0-5/HPF) Urine Bacteria (None) Ur Culture Indicated? Micro UA Comment Chlamy pneumoniae PCR (Not Detect) Adenovirus (PCR) (Not Detect) B. pertussis DNA (PCR) (Not Detecte) B.parapertussis DNA PCR (Not Detecte) Coronavirus OC43 (PCR) (Not Detect) Coronavirus HKU1 (PCR) (Not Detect) Coronavirus 229E (PCR) (Not Detect) SARS-CoV-2 (PCR) (Not Detecte) Coronavirus NL63 (PCR) (Not Detect) Human Metapneumovir PCR (Not Detect) Influenza Type A (PCR) (Not Detect) Influenza Type B (PCR) (Not Detect) M. pneumoniae (PCR) (Not Detect) Parainfluenza 1 (PCR) (Not Detect) Parainfluenza 2 (PCR) (Not Detect) Parainfluenza 3 (PCR) (Not Detect) Parainfluenza 4 (PCR) (Not Detect) RSV (PCR) (Not Detect) Entero/Rhino (PCR) (Not Detect) 04/29/21 Range/Units 14:44 WBC (4.5-11.0) X10^3/uL RBC (4.0-5.2) X10^6/uL Hgb (12.0-16.0) g/dL Hct (36-46) % MCV (80-100) fL MCH (26-34) PG MCHC (30-36) % RDW (11.6-14.8) % Plt Count (150-400) X10^3/uL Neut % (Auto) (50-75) % Lymph % (Auto) (25-40) % Sevier % (Auto) (3-14) % Eos % (Auto) (2-4) % Baso % (Auto) (0-2) % Neut # (Auto) (2628-3455) /uL Lymph # (Auto) (6932-2052) /uL Sevier # (Auto) (0-900) /uL Eos # (Auto) (0-450) /uL Baso # (Auto) (0-100) /uL Sodium (137-145) mmol/L Potassium (3.4-5.1) mmol/L Chloride (98-107) mmol/L Carbon Dioxide (22-32) mmol/L BUN (7-17) mg/dL Creatinine (0.52-1.04) mg/dL Estimated GFR (>60) mL/min BUN/Creatinine Ratio (6-22) Glucose (80-110) mg/dL Lactate (0.7-2.1) mmol/L Calcium (8.4-10.2) mg/dL Magnesium (1.6-2.3) mg/dL Total Bilirubin (0.2-1.3) mg/dL AST (14-36) IU/L ALT (<35) IU/L Alkaline Phosphatase (38-126) U/L Total Creatine Kinase (30-135) U/L CK-MB (CK-2) CK-MB (CK-2) Rel Index Troponin I 0.124 H* (0.01-0.034) ng/mL NT-Pro-B Natriuret Pep (<125) pg/mL Total Protein (6.3-8.2) g/dL Albumin (3.5-5.0) g/dL Globulin (1.7-4.1) g/dL Albumin/Globulin Ratio (1.0-2.8) Lipase (23-300) U/L Procalcitonin (<0.5) ng/mL Urine Color Urine Appearance Urine pH (4.5-8.0) Ur Specific Westley (1.000-1.035) Urine Protein (Negative) Urine Glucose (UA) (Negative) g/dL Urine Ketones (NEGATIVE) Urine Occult Blood (Negative) Urine Nitrate (Negative) Urine Bilirubin (NEGATIVE) Urine Urobilinogen (0.2) E.U./dL Ur Leukocyte Esterase (NEGATIVE) Urine RBC (0-5/HPF) Urine WBC (0-5/HPF) Urine Bacteria (None) Ur Culture Indicated? Micro UA Comment Chlamy pneumoniae PCR (Not Detect) Adenovirus (PCR) (Not Detect) B. pertussis DNA (PCR) (Not Detecte) B.parapertussis DNA PCR (Not Detecte) Coronavirus OC43 (PCR) (Not Detect) Coronavirus HKU1 (PCR) (Not Detect) Coronavirus 229E (PCR) (Not Detect) SARS-CoV-2 (PCR) (Not Detecte) Coronavirus NL63 (PCR) (Not Detect) Human Metapneumovir PCR (Not Detect) Influenza Type A (PCR) (Not Detect) Influenza Type B (PCR) (Not Detect) M. pneumoniae (PCR) (Not Detect) Parainfluenza 1 (PCR) (Not Detect) Parainfluenza 2 (PCR) (Not Detect) Parainfluenza 3 (PCR) (Not Detect) Parainfluenza 4 (PCR) (Not Detect) RSV (PCR) (Not Detect) Entero/Rhino (PCR) (Not Detect) Imaging Data Chest x-ray: Radiologist's Impresson: [address] [id number] XRay Report Signed Patient: Radha Zavaleta MR#: [id number] : 1950 Acct:[id number] Age/Sex: 71 / F Date of Service: 04/29/21 Loc: ED Accession Number: [id number] ?? Procedure: XR chest 1V Ordering Provider: Joanne Mckoy D.O. PROCEDURE:? XR CHEST 1V ? INDICATIONS:? chest pain ? TECHNIQUE:? One view of the chest was acquired.? ? COMPARISON:? [facility], CT, CT ANGIO CHEST PE PROTOCOL, 04/20/2021, 14:34.? [facility], CR, XR CHEST 1V, 04/20/2021, 10:45.? [facility], CR, XR CHEST FOR PICC 1V, 04/20/2021, 13:40. ? FINDINGS:? ? Surgical changes and devices:? None.? ? Lungs and pleura:? Faint appearance right basilar and retrocardiac opacities.? No pleural effusions or pneumothorax.? ? Mediastinum:? Mediastinal contours appear normal.? Heart size is enlarged. ? Bones and chest wall:? No suspicious bony lesions.? Overlying soft tissues appear unremarkable.? ? IMPRESSION:? 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 ? ? Dictated by: Melony Boss M.D. on 04/29/2021 at 13:03 ? ? Approved by: Melony Boss M.D. on 04/29/2021 at 13:05?? ECG Data Attestation: I personally reviewed and interpreted this ECG as follows: Interpretation: Patient appears to have sinus rhythm with frequent PVCs, right axis deviation, n onspecific ST change. Rate of 96, P are 120 QRS of 74 and QTC of 440. MDM Narrative Medical decision making narrative: This is a 71-year-old female with recent acute on chronic hypoxic respiratory failure who was not intubated but did require some O2 intermittently in the hospital. She is currently on 6 weeks of IV antibiotics which is being followed by infectious disease her most recent cultures grew out Pseudomonas. Patient states she had some clamminess and low heart rate. She is noted to appear clinically fluid overloaded and her labs support with BNP of 2200 her last was 1100, troponin is negative, renal function is appropriate with no major electrolyte abnormalities. White count is trending upwards so procalcitonin was included as well as cultures and lactate. Patient does feel somewhat improved on oxygen at 2 L which is what she has available at home. Chest x-ray shows pneumonia but no worsening from prior x-ray imaging. She has a respiratory panel which is negative. Patient has either NSTEMI or demand ischemia, CHF with pending echo, DVT shows small occlusive thrombus and was started on Lovenox 1 make for take subcu. Cardiology recommendations appreciated included above in shared with hospitalist. Patient is currently on aspirin but not heparinized based on this recommendations. Discharge Plan Departure Patient Disposition: Admitted As Inpatient Clinical Impression: Non-ST elevation AL (NSTEMI), CHF (congestive heart failure), Pneumonia Admit Date/Time: 04/29/21 15:52 Admit Provider: Radha Fan
[2021-04-29 12:56] LABS: Add Manual Diff / Slide Review NO; Basophils Absolute Auto 0 /uL (0-100); Basophils Percent Auto 0.3 % (0-2); Eosinophils Absolute Auto 0 /uL (0-450); Hematocrit 40.9 % (36-46); Hemoglobin 13.6 g/dL (12.0-16.0); Lymphocytes Absolute Auto 1200 /uL (1100-4500); Lymphocytes Percent Auto 7.2 % (25-40); Mean Corpuscular HGB Conc 33.3 % (30-36); Mean Corpuscular Hemoglobin 28.2 PG (26-34); Mean Corpuscular Volume 84.5 fL (80-100); Monocytes Absolute Auto 800 /uL (0-900); Monocytes Percent Auto 4.6 % (3-14); Neutrophils Absolute Auto 14700 /uL (1500-7000); Neutrophils Percent Auto 87.9 % (50-75); Platelet Count 309 X10^3/uL (150-400); Red Blood Cell Count 4.83 X10^6/uL (4.0-5.2); Red Cell Distribution Width 17.6 % (11.6-14.8); White Blood Cell Count 16.7 X10^3/uL (4.5-11.0)
[2021-04-29 13:06] LABS: Alanine Aminotransferase 38 IU/L (<35); Albumin 3.9 g/dL (3.5-5.0); Albumin Globulin Ratio 1.1 (1.0-2.8); Alkaline Phosphatase 73 U/L (38-126); Aspartate Aminotransferase 25 IU/L (14-36); BUN Creatinine Ratio 38.6 (6-22); Bilirubin Total 0.6 mg/dL (0.2-1.3); Blood Urea Nitrogen 34 mg/dL (7-17); Calcium 9.7 mg/dL (8.4-10.2); Carbon Dioxide 31 mmol/L (22-32); Chloride 98 mmol/L (98-107); Creatine Kinase 50 U/L (30-135); Estimated Glomerular Filt Rate > 60.0 mL/min (>60); Globulin 3.5 g/dL (1.7-4.1); Glucose 217 mg/dL (80-110); HEMOLYSIS < 15 (0-50); Lipase 109 U/L (23-300); Magnesium 1.6 mg/dL (1.6-2.3); Potassium 4.9 mmol/L (3.4-5.1); Sodium 134 mmol/L (137-145); Total Protein 7.4 g/dL (6.3-8.2)
--- NOTE | 2021-04-29 13:10 | DI.US.S_ITS ---
PROCEDURE: US PERIPH VENOUS LOW EXTREM BI INDICATIONS: SWELLING TECHNIQUE: Real-time imaging, as well as color and pulse Doppler interrogation, were performed of the deep veins of both legs from the inguinal ligament to the popliteal fossa. COMPARISON: None. FINDINGS: Right: The common femoral, femoral and popliteal veins are normally compressible, and free of intraluminal thrombus. Color and pulse Doppler demonstrate normal phasic intravascular flow. There is normal augmentation response to distal compression maneuver. Left: There is a small amount of occlusive deep venous thrombosis seen within the left mid femoral vein. The common femoral, femoral and popliteal veins are otherwise normally compressible, and free of intraluminal thrombus. Color and pulse Doppler demonstrate normal phasic intravascular flow. There is normal augmentation response to distal compression maneuver. IMPRESSION: A small amount of occlusive deep venous thrombosis can be seen within the left mid femoral vein. Dictated by: Ángel Naik M.D. on 04/29/2021 at 13:48 Approved by: Ángel Naik M.D. on 04/29/2021 at 13:49
[2021-04-29 13:14] LABS: NT-proBNP (BNP-Adult 18+) 2120 pg/mL (<125)
[2021-04-29 13:34] LABS: Adenovirus Not Detected (Not Detect); B. parapertussis Not Detected (Not Detecte); Bordetella pertussis Not Detected (Not Detecte); Chlamydophila pneumoniae Not Detected (Not Detect); Coronavirus 229E Not Detected (Not Detect); Coronavirus HKU1 Not Detected (Not Detect); Coronavirus NL 63 Not Detected (Not Detect); Coronavirus OC43 Not Detected (Not Detect); Human Metapneumovirus Not Detected (Not Detect); Human Rhinovirus/Enterovirus Not Detected (Not Detect); Influenza A Not Detected (Not Detect); Influenza B Not Detected (Not Detect); Mycoplasma pneumoniae Not Detected (Not Detect); Parainfluenza Virus 1 Not Detected (Not Detect); Parainfluenza Virus 2 Not Detected (Not Detect); Parainfluenza Virus 3 Not Detected (Not Detect); Parainfluenza Virus 4 Not Detected (Not Detect); Respiratory Syncytial Virus Not Detected (Not Detect); SARS- CoV-2 Not Detected (Not Detecte)
[2021-04-29 13:53] LABS: Lactate (Lactic Acid) 1.6 mmol/L (0.7-2.1)
[2021-04-29 14:08] LABS: Troponin I 0.133 ng/mL (0.01-0.034)
--- NOTE | 2021-04-29 14:18 | DI.ECHO.S_ITS ---
[facility] +---------+ : : [address] : [address] : : : : [id number] : : : : Phone: [phone]+ Echocardiogram Report + + :Name: HOANG MURRAY Study Date: 04/29/2021 Height: 60 in : :[facility] ReadingLocation: Weight: 240 lb : : Gender: Female BSA: 2.0 m2 : :: 1950 Age: 71 yrs BP: 136/85 mmHg: :Reason For Study: NSTEMI, CHF, Pneumonia : : Performed By: Yehuda Damian : :Referring: MIKI MARC : + + Interpretation Summary 1) Normal left ventricular size, wall motion, and systolic function (EF 60- 65%). 2) Normal right ventricular size with borderline reduced function. 3) The left atrium is severely dilated. 4) There is mild aortic stenosis. 5) There is mild calcific mitral stenosis (mean gradient 7mmHg, HR 86-98bpm). 6) Compared to the Echo done 01/25/2021, no significant change. Procedure: A two-dimensional transthoracic echocardiogram with color flow and Doppler was performed. The apical views were difficult to obtain and are suboptimal in quality. Comparison is made with the echocardiogram of 01/25/2021. Overall fair image quality with apical window aquisition technically difficult. The heart rate ranged between 86 - 98 bpm during the study. Left Ventricle: The left ventricle is normal in size. There is mild-moderate concentric left ventricular hypertrophy. The ejection fraction is estimated to be 60-65%. Left ventricular wall motion is normal. Diastolic function could not be accurately assessed due to unobtainable data. Right Ventricle: The right ventricle is normal size. Right ventricular systolic function is borderline reduced. Atria: The left atrium is severely dilated. Borderline right atrial enlargement. There is no Doppler evidence for an interatrial shunt. Mitral Valve: Previous study noted: There is moderate mitral annular calcification. The mitral valve leaflets are moderately calcified. The anterior leaflet is pliable and mobile while the posterior leaflet is calcified and immobile. The mitral valve mean gradient is 7 mmHg. There is trace mitral regurgitation. Aortic Valve: The aortic valve is trileaflet. The aortic valve opens well. There is mild aortic stenosis. There is trace aortic regurgitation. Tricuspid Valve: The tricuspid valve is normal. There is trace tricuspid regurgitation. The right ventricular systolic pressure is estimated to be at least 36 mmHg based on an estimated right atrial pressure of 3 mm Hg. Pulmonic Valve: The pulmonic valve leaflets are thin and pliable; valve motion is normal. There is trace pulmonic regurgitation. Great Vessels: The aortic root is normal size. The ascending aorta is normal in size. The aortic arch is normal in size. The IVC is of normal diameter and collapses greater than 50% with a sniff. This suggests a low right atrial pressure of 3 mm Hg. Pericardium/ Pleura Due to the poor quality of the echocardiogram, a pericardial effusion cannot be excluded. There is an anterior echo-free space consistent with a fat pad. There is no pleural effusion. MMode/2D Measurements & Calculations LVIDd: 3.7 cm LVOT diam: 1.5 cm LVIDs: 3.1 cm Ao root diam: 3.2 cm FS: 15.9 % asc Aorta Diam: 3.1 cm IVSd: 1.6 cm Ao Arch Diam (Prox Trans): 3.3 cm LVPWd: 1.5 cm LV gonsalves. diameter/BSA (cm/m^2): 1.8 LV sys. diameter/BSA (cm/m^2): 1.5 LA A2 area: 30.3 cm2 RA long axis: 6.4 cm LA A4 area: 26.1 cm2 RA area: 17.0 cm2 LA length (vol): 7.3 cm RA vol: 38.2 ml LA vol: 91.6 ml RA : 18.9 ml/m2 LA vol index: 45.4 ml/m2 RVD1 (basal): 2.8 cm TAPSE: 1.8 cm Doppler Measurements & Calculations Ao V2 max: 195.9 cm/sec LVOT Max Conner: 121.1 cm/sec Ao V2 mean: 131.4 cm/sec LV V1 max P.0 mmHg Ao max P.4 mmHg LV V1 VTI: 23.6 cm Ao mean P.5 mmHg EAGLE(I,D): 1.2 cm2 Ao V2 VTI: 33.0 cm EAGLE(V,D): 1.1 cm2 sev ratio: 0.71 EAGLE indexed to BSA (cm^2/m^2): 0.62 Med Peak E' Conner: 3.9 cm/sec TR max conner: 289.9 cm/sec Lat Peak E' Conner: 3.9 cm/sec TR max P.6 mmHg MVA(VTI): 0.80 cm2 MV V2 mean: 127.9 cm/sec SV(LVOT): 41.0 ml MV mean P.2 mmHg MV V2 VTI: 51.1 cm Reading Physician:06:30 PM
[2021-04-29] MEDS: FUROSEMIDE 40 MG/4 ML VIAL IV (14:22)
[2021-04-29] MEDS: ASPIRIN 81 MG CHEW TAB 324 MG PO (14:22)
[2021-04-29 15:34] LABS: Troponin I 0.124 ng/mL (0.01-0.034)
[2021-04-29] MEDS: ENOXAPARIN 150 MG/ML SYRINGE 110 MG SUBCUT (16:43)
[2021-04-29] MEDS: MEROPENEM 2 GM in SODIUM CHLORIDE 0.9% 100 ML 200 ML IV (17:03)
--- NOTE | 2021-04-29 20:15 | DI.CT.S_ITS ---
PROCEDURE: CT ANGIO CHEST PE PROTOCOL INDICATIONS: left femoral mid vein clot TECHNIQUE: After the administration of intravenous contrast, 2 mm thick sections acquired from the pulmonary apices to the posterior costophrenic angles. 3-dimensional maximum intensity projection (MIP) coronal and sagittal reformats were then acquired through the thorax. For radiation dose reduction, the following was used: automated exposure control, adjustment of mA and/or kV according to patient size. COMPARISON: [facility], CT, CT ANGIO CHEST PE PROTOCOL, 04/20/2021, 14:34. [facility], CT, CT ANGIO CHEST PE PROTOCOL, 01/21/2020, 10:42. FINDINGS: Image quality: Excellent. Pulmonary arteries: Interval development of new acute pulmonary emboli involving multiple right upper lobe, right middle lobe, and right lower lobe pulmonary arteries extending from the proximal segmental pulmonary artery levels distally. Findings are most pronounced in the right lower lobe. No evidence for acute right-sided heart strain. Lungs and pleura: Previously seen patchy ill-defined airspace opacities predominantly in the left hemithorax have greatly decreased in size and conspicuity. There are mild patchy ground-glass opacities involving the dependent portions of the bilateral lower lobes. More linear appearing consolidations seen in the dependent portions of the bilateral lower lobes compatible with atelectasis. No new focal consolidation seen. No pleural effusions or pneumothorax. Central and peripheral airways are patent. Mediastinum: Heart size is normal, without pericardial effusion. No mediastinal or hilar adenopathy. Thoracic aorta is normal in caliber and enhancement. Dense atherosclerotic calcifications of the coronary arteries. Esophagus is normal in caliber, with small hiatal hernia. Bones and chest wall: No suspicious bony lesions. Ribs and thoracic spine appear intact throughout. Thyroid gland is unremarkable. No axillary or supraclavicular adenopathy. Abdomen: Visualized upper abdominal solid organs appear normal in the early arterial phase of enhancement. IMPRESSION: 1. Interval development of new acute pulmonary emboli involving the right upper, middle, and lower lobes. No evidence for acute right-sided heart strain. No findings to suggest acute pulmonary infarctions. 2. Previously seen bilateral airspace disease have decreased significantly. No new focal airspace disease seen. Findings were discussed with Dr. Smith of the emergency department at 2140hrs. Dictated by: Aneesh Antonio M.D. on 04/29/2021 at 21:33 Approved by: Aneesh Antonio M.D. on 04/29/2021 at 21:43
[2021-04-29] MEDS: ATORVASTATIN 20 MG TABLET 40 MG PO (22:09)
[2021-04-29] MEDS: TIZANIDINE 4 MG TABLET PO (22:09)
[2021-04-29] MEDS: guaiFENesin ER 600 MG TAB 1200 MG PO (22:09)
[2021-04-29] MEDS: cloNIDine 0.1 MG TABLET PO (22:10)
[2021-04-29] MEDS: FERROUS SULFATE 325 MG TABLET PO (22:10)
[2021-04-29] MEDS: PRAMIPEXOLE 0.25 MG TABLET 0.5 MG PO (22:10)
[2021-04-29] MEDS: PREGABALIN 50 MG CAPSULE 200 MG PO (22:11)
[2021-04-29] MEDS: MONTELUKAST 10 MG TABLET PO (22:11)
[2021-04-29] MEDS: DOXYCYCLINE HYCLATE 100 MG TABLET PO (22:11)
[2021-04-29] MEDS: OXYCODONE IR 10 MG TABLET PO (22:12)
--- NOTE | 2021-04-29 23:23 | PM.CALLCOV.1 ---
Call Coverage Note Note Date of Patient Contact: 04/29/21 Time of Patient Contact: 23:24
--- NOTE | 2021-04-29 23:24 | P.HP_ITS ---
History of Present Illness History of Present Illness Chief complaint: Fatigue, irregular heart rate Narrative: Radha Zavaleta a 71-year-old female with a history of common variable immune deficiency, diabetes type 2, asthma with childhood exposure to secondary tobacco, hypertension and hyperlipidemia presented today to the ED with fatigue and what was thought to be an irregular heart beat. Today she noticed that she was having clammy and are heart rate seems low.? She did check her temperature at home and states it was normal.? She feels little bit better here on oxygen she was not using her home O2.? This started at 8:39 a.m. this morning she has had persistent shortness of breath but no worsening symptoms.? No chest pain or pressure.? She has had a cough that continues to be productive during her pr evious admission and states her sputum was bloody than black and turned to a melchor coloration.? She usually has some normal productive sputum but this is still a different color. She denies any nausea or vomiting.? No abdominal pain.? She states both her lower extremities have or little bit swollen in the hospital and have worsened in the last 1-2 days.? She did take an extra dose of Lasix today.? She denies any issues with bowel movements or urination.? No diarrhea constipation.? No dysuria urgency or frequency.? She was recently admitted for bilateral pneumonia and, which is suspected to be Pseudomonas who was discharged on April 24 after recurrent hospitalizations and has been discharged home on IV antibiotics with a PICC line in place. She was initially discharged on IV Zosyn, but after consultation with Dr. Kelley Infectious Disease physician at [facility], it was changed to meropenum and doxycycline. ?She is currently on prednisone.? She was initially diagnosed with sepsis but without hypotension, elevated lactate and had negative blood cultures during her hospitalization and diagnosis was pneumonia and was discharged home on several L of O2 as needed.? She has been using at night but not during the day.? She is also on medication for.? ?She had cultures repeated on Sunday with a sputum culture.? Patient is following with Infectious Disease Dr. Moses through [facility] as well as her angiography nurse Dr. Maharaj at [facility]. In the ED, she was suspected of having a NSTEMI or new onset CHF. They consulted with Dr. Mcdowell, Wastewater Process Engineer who recommended aspirin, echo, heparin if rising troponin.? Recontact based on the findings.? At this time if patient's troponin was not rising would potentially get a pharmacologic stress test. A DVT ultrasound do show a small occlusive thrombus and Lovenox 1mg/kg dose was administered.?With the exception of a severely dilated left atrium, echo was largely normal including an EF of 60%.? Patient's troponin was slightly downward trending. She was continued on IV antibiotics for pneumonia. Patient is afebrile, blood pressure 172/91, heart rate 54, respiratory rate 16 oxygen saturation 97% on 2 L she weighs 108 kg with a BMI of 46.8. WBC is 16.7, chills left shift of initial count of 14,700, platelet count 309, sodium 134, BUN 34, glucose 217, lactate was normal, troponin 0.133 initially dropping down to 0.124, proBNP is 2120, procalcitonin is normal, UA is negative for UTI, COVID-19 PCR is negative. Patient History Medical History Abnormal chest xray (~1979) Anemia Ankle pain Asthma (~1959) Bronchiectasis (~2006) Cervical spine disease Chronic back pain Colon polyps (~2015) Degenerative joint disease of spine (~2001) Diabetes mellitus, type II (~2009) Eczema Fibromyalgia Foot pain Hoarseness Hyperlipidemia Hypertension Hypothyroidism Migraines (~1964) 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 Osteopenia Pneumonia Pneumonia Recurrent sinusitis (~1970) Restless leg syndrome Shoulder pain (~03/2018) Sleep apnea Wears glasses Surgical History Anesthesia History of carpal tunnel release History of cataract removal with insertion of prosthetic lens (~2014) History of section History of laminectomy (~2002) History of spinal fusion (~2012) History of thumb surgery Family & Social History Family History Father Stroke Mother Hypertension Brother Cerebral aneurysm Prostate cancer Diabetes mellitus Hypertension Stroke Brother Arthritis Hyperlipidemia Hypertension Sister History of kidney cancer Hypertension Grandfather Cancer Grandmother Cancer Other Family history non-contributory Social History: household members spouse Prior Living Arrangements House Safety & Behavioral: Feels Safe in Current Yes Environment Been Physically Hurt or No Threatened By a Person Suicidal Ideation Description None Suicide Plan Description No Plan Tobacco & Substance use: Smoking Status Never smoker alcohol intake current alcohol intake frequency holiday/special occasion Substance Use Type does not use Meds Home Medications and Allergies Home Medications Medication Instructions Recorded Confirmed Type guaifenesin 1,200 mg tablet, 1,200 mg PO Q12H #0 06/06/17 04/29/21 History extended release 12 hr (Mucinex) polyethylene glycol 3350 17 17 gm PO DAILY PRN #0 06/06/17 04/29/21 History gram/dose oral powder (Miralax) albuterol sulfate 90 mcg/actuation 2 puff INHALATION Q4-6H PRN 05/29/19 04/29/21 History aerosol inhaler aspirin 81 mg tablet,delayed 81 mg PO QPM 05/29/19 04/29/21 History release cholecalciferol (vitamin D3) 50 2,000 unit PO DAILY 05/29/19 04/29/21 History mcg (2,000 unit) tablet ferrous sulfate 325 mg (65 mg 325 mg PO BEDTIME 05/29/19 04/29/21 History iron) tablet immune glob,gamm(IgG) 10 %-pro-IgA 45 gram IV Q3W ml 05/29/19 04/29/21 History 0 to 50 mcg/mL intravenous solution (Privigen) spironolactone 50 mg tablet 50 mg PO DAILY 05/29/19 04/29/21 History tizanidine 4 mg capsule 4 mg PO QID PRN 05/29/19 04/29/21 History fluticasone propionate 50 1 spray NASAL BID PRN 05/31/19 04/29/21 History mcg/actuation nasal spray,suspension (Flonase Allergy Relief) sodium chloride 3 % for 3 ml INHALATION DIRECTED 06/05/19 04/29/21 History nebulization ondansetron HCl 4 mg tablet 4 mg PO Q8H PRN #30 tab 10/06/19 04/29/21 Rx (Zofran) cetirizine 10 mg capsule (Zyrtec) 10 mg PO DAILY 01/20/20 04/29/21 History montelukast 10 mg tablet 10 mg PO BEDTIME 01/20/20 04/29/21 History (Singulair) verio reflect glucometer #1 ea 01/28/20 04/29/21 Rx insulin syringe-needle U-100 0.5 #100 ea 03/30/20 04/29/21 Rx mL 31 gauge x 5/16 (BD Insulin Syringe Ultra-Fine) clonidine HCl 0.1 mg tablet 0.1 mg PO BID #180 tab 08/05/20 04/29/21 Rx losartan 50 mg tablet 50 mg PO DAILY #90 tab 08/05/20 04/29/21 Rx metformin 1,000 mg tablet 1,000 mg PO BID #180 tab 09/03/20 04/29/21 Rx pramipexole 0.5 mg tablet 0.5 mg PO BEDTIME #15 tab 02/28/21 04/29/21 Rx atorvastatin 40 mg tablet 40 mg PO BEDTIME 04/20/21 04/29/21 History abfmbiesoy-sjdqyupdgcywo-gmlrdxon 1 tab PO Q4H PRN 04/20/21 04/29/21 History 50 mg-325 mg-40 mg tablet epinephrine 0.3 mg/0.3 mL 0.3 mg IM Q5-15M PRN 04/20/21 04/29/21 History injection, auto-injector (EpiPen) fluticasone 500 mcg-salmeterol 50 1 inh INHALATION Q12H 04/20/21 04/29/21 History mcg/dose blistr powdr for inhalation (Advair Diskus) furosemide 20 mg tablet (Lasix) 20 mg PO QAM 04/20/21 04/29/21 History insulin glargine 100 unit/mL 30 unit SUBCUT DAILY 04/20/21 04/29/21 History subcutaneous solution insulin lispro 100 unit/mL 4 - 8 unit SUBCUT TID 04/20/21 04/29/21 History subcutaneous pen (Humalog KwikPen (U-100) Insulin) ipratropium 0.5 mg-albuterol 3 mg 3 ml INHALATION Q4H PRN 04/20/21 04/29/21 History (2.5 mg base)/3 mL nebulization soln levothyroxine 75 mcg tablet 75 mcg PO QAM 04/20/21 04/29/21 History naproxen sodium 220 mg capsule 220 mg PO BID PRN 04/20/21 04/29/21 History (Aleve) nortriptyline 25 mg capsule 25 mg PO BEDTIME 04/20/21 04/29/21 History oxycodone 10 mg tablet 10 mg PO QID PRN 04/20/21 04/29/21 History pregabalin 200 mg capsule 200 mg PO BID 04/20/21 04/29/21 History tiotropium bromide 18 mcg capsule 1 cap INHALATION DAILY 04/20/21 04/29/21 History with inhalation device (Spiriva with HandiHaler) L.acidophilus-L.bulgar-B.bifid-S.thermoph 1 ea PO TIDWM #90 tab 04/22/21 04/29/21 Rx 1 billion cell-250 mg tablet (Bacid) doxycycline hyclate 100 mg tablet 100 mg PO BID #42 tab 04/22/21 04/29/21 Rx fluconazole 200 mg tablet 200 mg PO DAILY #20 tab 04/22/21 04/29/21 Rx (Diflucan) lansoprazole 15 mg capsule,delayed 30 mg PO DAILY 04/29/21 04/29/21 History release (Prevacid 24Hr) meropenem 1 gram intravenous 2 g IV Q8HR 04/29/21 04/29/21 History solution prednisone 10 mg tablet 10 mg PO DIRECTED 04/29/21 04/29/21 History Allergies Allergy/AdvReac Type Severity Reaction Status Date / Time hydroxychloroquine Allergy Unknown Verified 04/29/21 11:50 [HYDROXYCHLOROQUINE] promethazine [From Phenergan] Allergy Agitated Verified 04/29/21 11:50 cefepime AdvReac Severe pruritis Verified 04/29/21 11:50 Review of Systems Review of Systems ROS: Yes All systems reviewed with the patient and are negative except as otherwise documented Exam Vital Signs (past 8 hours): - 04/29/21 15:30 04/29/21 15:45 04/29/21 16:00 Temperature Pulse Rate 85 92 H 96 H Respiratory Rate 21 29 H Blood Pressure Pulse Oximetry 92 96 96 04/29/21 16:15 04/29/21 16:30 04/29/21 16:43 Temperature Pulse Rate 87 92 H 87 Respiratory Rate 25 H 28 H Blood Pressure 163/76 H Pulse Oximetry 95 96 95 04/29/21 16:45 04/29/21 17:00 04/29/21 17:15 Temperature Pulse Rate 88 90 88 Respiratory Rate 50 H 58 H Blood Pressure Pulse Oximetry 95 95 97 04/29/21 17:30 04/29/21 17:45 04/29/21 18:00 Temperature Pulse Rate 92 H 95 H 100 H Respiratory Rate Blood Pressure Pulse Oximetry 93 93 93 04/29/21 18:15 04/29/21 18:30 04/29/21 18:45 Temperature Pulse Rate 95 H 99 H 101 H Respiratory Rate Blood Pressure Pulse Oximetry 93 94 95 04/29/21 19:00 04/29/21 19:15 04/29/21 19:23 Temperature Pulse Rate 111 H 102 H 102 H Respiratory Rate Blood Pressure 166/73 H Pulse Oximetry 93 94 95 04/29/21 20:25 04/29/21 22:10 Temperature 97.2 F L Pulse Rate 54 L 54 L Respiratory Rate 16 Blood Pressure 172/91 H 172/91 H Pulse Oximetry 97 Oxygen Delivery Method Nasal Cannula Oxygen Flow Rate 2 Narrative Exam Narrative: Gen: Alert, oriented, morbidly obese 71 y.o. female, appears ill HEENT: normocephalic, atraumatic, conjunctiva clear, sclera non-icteric, oral mucosa pink and moist Neck: supple, full ROM, no JVD, trachea is midline Resp: Lungs sounds diminished, non-labored breathing, on supplemental O2 CV: RRR, no murmur or rubs Abd: soft, non-tender, normoactive BTs Skin: no lesions or rashes, dry and intact Neuro: Alert and oriented X 4 w/no focal deficits. Speech clear and coherent. Extremities: moves all 4 extremities, is ambulatory, negative Lula?s sign Psyche: normal mood and affect. Objective Labs Result Diagrams: 04/29/21 12:45 04/29/21 12:45 Labs: Laboratory Results - last 24 hr 04/29/21 04/29/21 04/29/21 11:46 12:22 12:45 WBC 16.7 H RBC 4.83 Hgb 13.6 Hct 40.9 MCV 84.5 MCH 28.2 MCHC 33.3 RDW 17.6 H Plt Count 309 Neut % (Auto) 87.9 H Lymph % (Auto) 7.2 L [place] % (Auto) 4.6 Eos % (Auto) 0.0 L Baso % (Auto) 0.3 Neut # (Auto) 75332 H Lymph # (Auto) 1200 [place] # (Auto) 800 Eos # (Auto) 0 Baso # (Auto) 0 Sodium Potassium Chloride Carbon Dioxide BUN Creatinine Estimated GFR BUN/Creatinine Ratio Glucose Lactate Calcium Magnesium Total Bilirubin AST ALT Alkaline Phosphatase Total Creatine Kinase CK-MB (CK-2) CK-MB (CK-2) Rel Index Troponin I NT-Pro-B Natriuret Pep Total Protein Albumin Globulin Albumin/Globulin Ratio Lipase Procalcitonin Urine Color Yellow Urine Appearance Clear Urine pH 6.5 Ur Specific [place] <=1.005 Urine Protein Negative Urine Glucose (UA) Negative Urine Ketones Negative Urine Occult Blood Trace-intact Urine Nitrate Negative Urine Bilirubin Negative Urine Urobilinogen 0.2 Ur Leukocyte Esterase Negative Urine RBC None seen Urine WBC None seen Urine Bacteria None seen Ur Culture Indicated? Cult not indicated Micro UA Comment Microscopic normal Chlamy pneumoniae PCR Not detected Adenovirus (PCR) Not detected B. pertussis DNA (PCR) Not detected B.parapertussis DNA PCR Not detected Coronavirus OC43 (PCR) Not detected Coronavirus HKU1 (PCR) Not detected Coronavirus 229E (PCR) Not detected SARS-CoV-2 (PCR) Not detected Coronavirus NL63 (PCR) Not detected Human Metapneumovir PCR Not detected Influenza Type A (PCR) Not detected Influenza Type B (PCR) Not detected M. pneumoniae (PCR) Not detected Parainfluenza 1 (PCR) Not detected Parainfluenza 2 (PCR) Not detected Parainfluenza 3 (PCR) Not detected Parainfluenza 4 (PCR) Not detected RSV (PCR) Not detected Entero/Rhino (PCR) Not detected 04/29/21 04/29/21 04/29/21 12:45 13:25 13:25 WBC RBC Hgb Hct MCV MCH MCHC RDW Plt Count Neut % (Auto) Lymph % (Auto) [place] % (Auto) Eos % (Auto) Baso % (Auto) Neut # (Auto) Lymph # (Auto) [place] # (Auto) Eos # (Auto) Baso # (Auto) Sodium 134 L Potassium 4.9 Chloride 98 Carbon Dioxide 31 BUN 34 H Creatinine 0.88 Estimated GFR > 60.0 BUN/Creatinine Ratio 38.6 H Glucose 217 H Lactate 1.6 Calcium 9.7 Magnesium 1.6 Total Bilirubin 0.6 AST 25 ALT 38 H Alkaline Phosphatase 73 Total Creatine Kinase 50 CK-MB (CK-2) TNP CK-MB (CK-2) Rel Index TNP Troponin I 0.133 H* NT-Pro-B Natriuret Pep 2120 H Total Protein 7.4 Albumin 3.9 Globulin 3.5 Albumin/Globulin Ratio 1.1 Lipase 109 Procalcitonin 0.10 Urine Color Urine Appearance Urine pH Ur Specific [place] Urine Protein Urine Glucose (UA) Urine Ketones Urine Occult Blood Urine Nitrate Urine Bilirubin Urine Urobilinogen Ur Leukocyte Esterase Urine RBC Urine WBC Urine Bacteria Ur Culture Indicated? Micro UA Comment Chlamy pneumoniae PCR Adenovirus (PCR) B. pertussis DNA (PCR) B.parapertussis DNA PCR Coronavirus OC43 (PCR) Coronavirus HKU1 (PCR) Coronavirus 229E (PCR) SARS-CoV-2 (PCR) Coronavirus NL63 (PCR) Human Metapneumovir PCR Influenza Type A (PCR) Influenza Type B (PCR) M. pneumoniae (PCR) Parainfluenza 1 (PCR) Parainfluenza 2 (PCR) Parainfluenza 3 (PCR) Parainfluenza 4 (PCR) RSV (PCR) Entero/Rhino (PCR) 04/29/21 14:44 WBC RBC Hgb Hct MCV MCH MCHC RDW Plt Count Neut % (Auto) Lymph % (Auto) [place] % (Auto) Eos % (Auto) Baso % (Auto) Neut # (Auto) Lymph # (Auto) [place] # (Auto) Eos # (Auto) Baso # (Auto) Sodium Potassium Chloride Carbon Dioxide BUN Creatinine Estimated GFR BUN/Creatinine Ratio Glucose Lactate Calcium Magnesium Total Bilirubin AST ALT Alkaline Phosphatase Total Creatine Kinase CK-MB (CK-2) CK-MB (CK-2) Rel Index Troponin I 0.124 H* NT-Pro-B Natriuret Pep Total Protein Albumin Globulin Albumin/Globulin Ratio Lipase Procalcitonin Urine Color Urine Appearance Urine pH Ur Specific [place] Urine Protein Urine Glucose (UA) Urine Ketones Urine Occult Blood Urine Nitrate Urine Bilirubin Urine Urobilinogen Ur Leukocyte Esterase Urine RBC Urine WBC Urine Bacteria Ur Culture Indicated? Micro UA Comment Chlamy pneumoniae PCR Adenovirus (PCR) B. pertussis DNA (PCR) B.parapertussis DNA PCR Coronavirus OC43 (PCR) Coronavirus HKU1 (PCR) Coronavirus 229E (PCR) SARS-CoV-2 (PCR) Coronavirus NL63 (PCR) Human Metapneumovir PCR Influenza Type A (PCR) Influenza Type B (PCR) M. pneumoniae (PCR) Parainfluenza 1 (PCR) Parainfluenza 2 (PCR) Parainfluenza 3 (PCR) Parainfluenza 4 (PCR) RSV (PCR) Entero/Rhino (PCR) Assessment & Plan Assessment & Plan narrative: Radha Zavaleta is a 71 year old female admitted initially for what was suspected to be a NSTEMI found to have a right-sided pulmonary embolism and a DVT of the left femoral mid vein. 1. Right-sided pulmonary embolism and left-sided DVT acute, present on admission * Patient is started on therapeutic Lovenox 125 mg subQ b.i.d. * PE occupies most of the upper mid and lower right lung, sided heart strain is not seen on CTA * Troponins have started to trend down so we will not trend longer * Echocardiogram reading was done and essentially normal with exception of dilation of left atrium 2. Pneumonia likely Pseudomonas organism, acute present on admission * Patient was receiving IV meropenem and doxycycline via PICC line and this will be continued in-house for her infectious disease specialist at [facility] * Continue albuterol and DuoNeb nebulizers for shortness of breath 3. Essential hypertension, chronic * Continue home dose of clonidine 0.1 mg b.i.d., losartan 50 mg p.o. daily * Continue home dose of aspirin 81 mg p.o. in the morning 4. Diabetes type 2, chronic * Continue home dose of Lantus 30 units in the morning and medium dose correctional insulin a.c. and HS * Carb controlled diet 5. Hypothyroidism, chronic * Continue home dose of levothyroxine 75 mcg once were in the morning 6. Morbid obesity, chronic * Patient's morbid obesity does put her at greater risk for comorbidities and difficulty with ventilation. VTE Prophylaxis: Wells risk score 7 patient will be receiving therapeutic dose of enoxaparin for a pulmonary embolism and DVT Patient is admitted to the inpatient service due to the severity of disease, risks of further disease progression and this stay is expected to exceed 2 midnights. FEN: IV fluids: saline reji, diet: carb controlled diet, labs: CBC, C/BMP, liver enzymes, Mag Consultants None Dispo: hopeful return to home Code status: DNI as discussed with the patient who identifies her Harjeet her surrogate and POA. [X] I have utilized all available immediate resources to obtain, update, or review of the patient's current medications COVID-19 COVID-19 status: Negative Result date/Date tested (Pos, Neg/Pending): 04/29/21 Time Spent With Patient Critical Care time: I spent a total of [] minutes of critical care time on this patient's care today; this time is exclusive of procedural time. Scores Wells' Criteria for PE Clinical signs and symptoms of DVT: No PE is #1 Dx or equally likely: Yes Heart rate > 100: Yes Immobilization at least 3 days or surg in previous 4 weeks: Yes History of PE or DVT: No Hemoptysis: Yes Malignancy w/Treatment within 6 months or palliative: No Wells' PE Score total: 7.0 Quality VTE Deep Vein Thrombosis/Pulmonary Embolism Present on Admission: Yes MIPS - Admit I confirm the patient?s Advance Care Plan is present, Code status is documented, Surrogate decision maker is in patient?s record [If Yes, STOP here]: Yes MIPS - DC The patient has current or prior documentation of left ventricular ejection fraction (LVEF) less than 40%, or moderate or severely depressed left ventricular systolic function.: No
[2021-04-30] VITALS (10 sets, daily range): BP systolic 127–147; BP diastolic 63–83; PULSE 54–100; RESP 15–20; TEMP 35.4–37; O2SAT 91–94
[2021-04-30] MEDS: ENOXAPARIN 100 MG/ML SYRINGE 110 MG SUBCUT ×3 (00:11→20:40)
[2021-04-30] MEDS: MEROPENEM 2 GM in SODIUM CHLORIDE 0.9% 100 ML 200 ML IV ×4 (00:11→23:58)
[2021-04-30 07:02] LABS: Hematocrit 38.4 % (36-46); Hemoglobin 12.7 g/dL (12.0-16.0); Mean Corpuscular HGB Conc 33.2 % (30-36); Mean Corpuscular Hemoglobin 27.9 PG (26-34); Mean Corpuscular Volume 84.2 fL (80-100); Platelet Count 284 X10^3/uL (150-400); Red Blood Cell Count 4.56 X10^6/uL (4.0-5.2); Red Cell Distribution Width 17.1 % (11.6-14.8)
[2021-04-30 07:04] LABS: Add Manual Diff / Slide Review YES
[2021-04-30 07:07] LABS: BUN Creatinine Ratio 34.8 (6-22); Blood Urea Nitrogen 31 mg/dL (7-17); Calcium 9.3 mg/dL (8.4-10.2); Carbon Dioxide 36 mmol/L (22-32); Chloride 95 mmol/L (98-107); Estimated Glomerular Filt Rate > 60.0 mL/min (>60); Glucose 178 mg/dL (80-110); HEMOLYSIS 18 (0-50); Magnesium 1.7 mg/dL (1.6-2.3); Potassium 3.9 mmol/L (3.4-5.1); Sodium 134 mmol/L (137-145)
[2021-04-30 07:20] LABS: Hemoglobin A1C% w Est Avg Glu 8.3 % (4.0-6.0)
[2021-04-30 07:49] LABS: Neutrophils Absolute Manual 10780 /uL (3000-5900); Total Cells Counted 100
[2021-04-30 07:50] LABS: Target Cells 1+
[2021-04-30 07:51] LABS: Toxic Granulation Present
[2021-04-30] MEDS: NYSTATIN POWDER 15GM 1 APPLIC TOP (08:47)
[2021-04-30] MEDS: OXYCODONE IR 10 MG TABLET PO ×2 (08:48→23:58)
[2021-04-30] MEDS: PREGABALIN 50 MG CAPSULE 200 MG PO ×2 (08:49→20:41)
[2021-04-30] MEDS: guaiFENesin ER 600 MG TAB 1200 MG PO ×2 (08:49→20:40)
[2021-04-30] MEDS: predniSONE 20 MG TABLET 40 MG PO (08:51)
[2021-04-30] MEDS: cloNIDine 0.1 MG TABLET PO ×2 (08:52→20:42)
[2021-04-30] MEDS: LEVOTHYROXINE 75 MCG TABLET PO (08:53)
[2021-04-30] MEDS: DOXYCYCLINE HYCLATE 100 MG TABLET PO ×2 (08:53→20:41)
[2021-04-30] MEDS: LOSARTAN 50 MG TABLET PO (08:53)
[2021-04-30] MEDS: INSULIN LISPRO 100 UNIT/ML 3ML VIAL SUBCUT ×4 (08:55→20:51)
[2021-04-30] MEDS: INSULIN GLARGINE 100 UNIT/ML 3ML PEN 30 UNIT SUBCUT (08:58)
--- NOTE | 2021-04-30 09:50 | PC.NURSE ---
Addendum entered by Tiffanie Hoff R.N. 04/30/21 18:31: pt became very warm to touch with diaphorises noted, afibrile and now with fan and up to chair for dinner not as sleepy as earlier in the shift. in room antbx infusing denies pain while at rest in chair. Tele SR with trigeminal pvc's rate of 102. call light within reach and bed alarm when leaves. Original Note: pt up to bsc with 2 person using walker very slow and needs alot of prompting. oral pain meds for c/o efr knee pain.
--- NOTE | 2021-04-30 14:03 | CM.IDA ---
Addendum entered by MACKENZIE Pittman 04/30/21 14:13: ADD: Patient sleeping throughout this visit. Both patient/spouse appear exhausted today. Will follow closely. BEN Original Note: Initial DCP Assessment Note Pt is a 71 yo female, resident [facility], arrives w/complaints of an irregular heartbeat, recently admitted for bilateral pneumonia and discharged w/PICC on IV Zosyn, which was switched to meropenum and doxycycline. Found to have Right-sided pulmonary embolism and left-sided DVT acute. Patient w/complicated medical hx PCP: Karin Porter Payer: [employer] Met w/patient's spouse Harjeet Zavala this morning; retired Ortho PA-C. Patient had been improving at home, spouse explains, up until the last few days when she began feeling more tired and out of sorts. Patient on lovenox for PE and DVT; medical POC still unfolding. Patient would benefit from PT eval when medically appropriate. Patient is quite medically and functionally fragile at this time, patient/spouse will likely want to return home upon DC. R/o need for HH (?) MACKENZIE Dominguez Discharge Planning/Care Management CM Discharge Assessment Start: 04/30/21 13:56 Freq: Status: Active Protocol: Document 04/30/21 13:56 BEN (Rec: 04/30/21 14:03 BEN [id number]) Discharge Planning Assessment Assigned Machine Preservative Filler MACKENZIE Heath DPOA/Assigned Designee Name Harjeet Zavaleta, spouse Contact Information [phone] Advance Directives? Yes Advance Directives on File No History Provided By Significant Other,Medical Record Has Patient been admitted in last 30 Yes days? Comment Patient was admitted 1.5-19 for pneumonia and was DC home w/spouse and [facility] providing IV abx for an addtl. 20 days Prior Living Arrangements House Household Members spouse Type of transporation used prior to Relies on Others admit Independent with ADL's No: Low activity tolerance, requires assist Is patient alert and oriented? Yes Needs Assistance With Meal Prep,Home Chores / Shopping Barriers to Discharge Yes Comment medically and physically fragile. Likely will want to return home w/spouse, who is a retired Orthopedic PA-C Discharge Plan Home Transportation Arrangement Spouse bedside and can provide transport home when stable Referrals Initiated None needed Additional Comment Pending PT/OT eval
[2021-04-30] MEDS: ALBUTEROL/IPRATROPIUM 3 ML AMPUL INH ×2 (14:28→21:22)
--- NOTE | 2021-04-30 17:05 | P.PN_ITS ---
Subjective Subjective Date Patient Seen: 04/30/21 Interval history: 71-year-old female admitted to the hospital with an acute right-sided pulmonary embolus. Patient is somewhat lethargic today, she apparently fell earlier trying to get out of bed earlier today Exam Vital Signs (past 8 hours): - 04/30/21 09:06 04/30/21 13:00 04/30/21 14:28 Temperature 95.8 F L Pulse Rate 88 54 L Respiratory Rate 15 20 Blood Pressure 139/63 Pulse Oximetry 93 91 91 Oxygen Delivery Method Room Air Oxygen Flow Rate 0 Narrative Exam Narrative: Lethargic female sleeping comfortably in no distress Resp Other: Lungs: Decreased breath sounds, Cardio Other: Cardiac exam: Regular rate and rhythm normal S1-S2 GI Other: Abdomen: Soft and nontender Extrem Other: No edema Objective Labs Result Diagrams: 04/30/21 06:35 04/30/21 06:35 Labs: Laboratory Results - last 24 hr 04/30/21 04/30/21 04/30/21 06:35 06:35 06:35 WBC 14.0 H RBC 4.56 Hgb 12.7 Hct 38.4 MCV 84.2 MCH 27.9 MCHC 33.2 RDW 17.1 H Plt Count 284 Neut % (Auto) Not Reportable Lymph % (Auto) Not Reportable [place] % (Auto) Not Reportable Eos % (Auto) Not Reportable Baso % (Auto) Not Reportable Lymph # (Auto) Not Reportable [place] # (Auto) Not Reportable Baso # (Auto) Not Reportable Total Counted 100 Seg Neutrophils % 74.0 H Band Neutrophils % 3.0 Lymphocytes % (Manual) 16.0 L Atypical Lymphs % 1.0 H Monocytes % (Manual) 6.0 Neutrophils # (Manual) 51328 H Toxic Granulation Present H RBC Morphology See below Target Cells 1+ H Sodium 134 L Potassium 3.9 Chloride 95 L Carbon Dioxide 36 H BUN 31 H Creatinine 0.89 Estimated GFR > 60.0 BUN/Creatinine Ratio 34.8 H Glucose 178 H Hemoglobin A1c 8.3 H Calcium 9.3 Magnesium 1.7 PFSH Medical History Abnormal chest xray (~1979) Anemia Ankle pain Asthma (~1959) Bronchiectasis (~2006) Cervical spine disease Chronic back pain Colon polyps (~2016) Degenerative joint disease of spine (~2001) Diabetes mellitus, type II (~2009) Eczema Fibromyalgia Foot pain Hoarseness Hyperlipidemia Hypertension Hypothyroidism Migraines (~1964) 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 Osteopenia Pneumonia Pneumonia Recurrent sinusitis (~1970) Restless leg syndrome Shoulder pain (~03/2018) Sleep apnea Wears glasses Surgical History Anesthesia History of carpal tunnel release History of cataract removal with insertion of prosthetic lens (~2014) History of section History of laminectomy (~2002) History of spinal fusion (~2012) History of thumb surgery Family History Father Stroke Mother Hypertension Brother Cerebral aneurysm Prostate cancer Diabetes mellitus Hypertension Stroke Brother Arthritis Hyperlipidemia Hypertension Sister History of kidney cancer Hypertension Grandfather Cancer Grandmother Cancer Other Family history non-contributory Social History household members: spouse Smoking Status: Never smoker alcohol intake: current Assessment & Plan Assessment & Plan narrative: Right-sided pulmonary embolism and left-sided DVT acute, present on admission * Patient is started on therapeutic Lovenox 125 mg subQ b.i.d. * PE occupies most of the upper mid and lower right lung, sided heart strain is not seen on CTA * Troponins have started to trend down so we will not trend longer * Echocardiogram reading was done and essentially normal with exception of dilation of left atrium * Will likely switch to Xarelto or apixaban tomorrow for outpatient treatment 2. Pneumonia likely Pseudomonas organism, acute present on admission * Patient was receiving IV meropenem and doxycycline via PICC line and this will be continued in-house for her infectious disease specialist at [facility], just with Dr. Galdamez who recommends continuation of therapy * Continue albuterol and DuoNeb nebulizers for shortness of breath 3. Essential hypertension, chronic * Continue home dose of clonidine 0.1 mg b.i.d., losartan 50 mg p.o. daily * Continue home dose of aspirin 81 mg p.o. in the morning 4. Diabetes type 2, chronic * Continue home dose of Lantus 30 units in the morning and medium dose corre ctional insulin a.c. and HS * Carb controlled diet 5. Hypothyroidism, chronic * Continue home dose of levothyroxine 75 mcg once were in the morning 6. Morbid obesity, chronic * Patient's morbid obesity does put her at greater risk for comorbidities and difficulty with ventilation. * PT OT consultation to assist with gait Anticipate discharge home once the patient can ambulate safely without fall Time Spent With Patient Critical Care time: I spent a total of [] minutes of critical care time on this patient's care today; this time is exclusive of procedural time. Quality VTE Deep Vein Thrombosis/Pulmonary Embolism Present on Admission: Yes
[2021-04-30] MEDS: MONTELUKAST 10 MG TABLET PO (20:41)
[2021-04-30] MEDS: TIZANIDINE 4 MG TABLET PO (20:41)
[2021-04-30] MEDS: ATORVASTATIN 20 MG TABLET 40 MG PO (20:41)
[2021-04-30] MEDS: PRAMIPEXOLE 0.25 MG TABLET 0.5 MG PO (20:41)
[2021-04-30] MEDS: FERROUS SULFATE 325 MG TABLET PO (20:41)
[2021-05-01 05:56] VITALS: BP 116/74; PULSE 77; RESP 16; TEMP 36.2; O2SAT 96
[2021-05-01] MEDS: LEVOTHYROXINE 75 MCG TABLET PO (06:33)
[2021-05-01 07:49] VITALS: BP 134/61; PULSE 64; RESP 14; TEMP 36.5; O2SAT 94
[2021-05-01 08:17] LABS: Add Manual Diff / Slide Review NO; Basophils Absolute Auto 100 /uL (0-100); Basophils Percent Auto 0.5 % (0-2); Eosinophils Absolute Auto 0 /uL (0-450); Hematocrit 35.3 % (36-46); Hemoglobin 11.7 g/dL (12.0-16.0); Lymphocytes Absolute Auto 1900 /uL (1100-4500); Lymphocytes Percent Auto 15.7 % (25-40); Mean Corpuscular Volume 84.7 fL (80-100); Monocytes Absolute Auto 1100 /uL (0-900); Monocytes Percent Auto 9.4 % (3-14); Neutrophils Absolute Auto 9000 /uL (1500-7000); Neutrophils Percent Auto 74.4 % (50-75); Platelet Count 256 X10^3/uL (150-400); Red Blood Cell Count 4.17 X10^6/uL (4.0-5.2); Red Cell Distribution Width 17.6 % (11.6-14.8)
[2021-05-01 08:37] LABS: BUN Creatinine Ratio 28.6 (6-22); Blood Urea Nitrogen 24 mg/dL (7-17); Calcium 9.1 mg/dL (8.4-10.2); Carbon Dioxide 29 mmol/L (22-32); Chloride 101 mmol/L (98-107); Estimated Glomerular Filt Rate > 60.0 mL/min (>60); Glucose 190 mg/dL (80-110); HEMOLYSIS < 15 (0-50); Potassium 4.1 mmol/L (3.4-5.1); Sodium 133 mmol/L (137-145)
[2021-05-01] MEDS: MEROPENEM 2 GM in SODIUM CHLORIDE 0.9% 100 ML 200 ML IV (08:55)
[2021-05-01] MEDS: INSULIN LISPRO 100 UNIT/ML 3ML VIAL SUBCUT ×2 (08:56→12:10)
[2021-05-01] MEDS: INSULIN GLARGINE 100 UNIT/ML 3ML PEN 30 UNIT SUBCUT (08:58)
[2021-05-01] MEDS: ENOXAPARIN 100 MG/ML SYRINGE 110 MG SUBCUT (09:00)
[2021-05-01] MEDS: predniSONE 20 MG TABLET 40 MG PO (09:01)
[2021-05-01] MEDS: LOSARTAN 50 MG TABLET PO (09:01)
[2021-05-01] MEDS: OXYCODONE IR 10 MG TABLET PO (09:02)
[2021-05-01] MEDS: PREGABALIN 50 MG CAPSULE 200 MG PO (09:02)
[2021-05-01] MEDS: ACETAMINOPHEN 325 MG TABLET 650 MG PO (09:03)
[2021-05-01] MEDS: cloNIDine 0.1 MG TABLET PO (09:03)
[2021-05-01] MEDS: DOXYCYCLINE HYCLATE 100 MG TABLET PO (09:04)
--- NOTE | 2021-05-01 09:31 | DI.RAD.S_ITS ---
PROCEDURE: XR KNEE LT 3V INDICATIONS: left knee pain TECHNIQUE: 3 views of the knee were acquired. COMPARISON: [facility], CR, KNEE 3V RIGHT, 10/07/2006, 8:51. [facility], CR, XR KNEE ARTHRITIC SERIES BI, 02/17/2021, 16:29. FINDINGS: Bones: No fractures or dislocations. No suspicious bony lesions. At least moderate medial and lateral femorotibial joint space narrowing can be seen, with associated remodeling change with subchondral irregularity and sclerosis. On the sunrise view, there is moderate patellofemoral joint space narrowing seen. Osteophyte formation can be seen along the margins of the patella. Soft tissues: There is a moderate joint effusion. No suspicious soft tissue calcifications. IMPRESSION: Moderate joint effusion with generalized degenerative changes seen by plain film. If it would be helpful for clinical management decision making, please consider a dedicated, scheduled knee MRI for further evaluation (assuming that there is no contraindication). Dictated by: Ángel Naik M.D. on 05/01/2021 at 10:09 Approved by: Ángel Naik M.D. on 05/01/2021 at 10:10
[2021-05-01 09:58] VITALS: PULSE 58; RESP 16; O2SAT 94
[2021-05-01] MEDS: ALBUTEROL/IPRATROPIUM 3 ML AMPUL INH (09:58)
--- NOTE | 2021-05-01 11:30 | PT.IIE ---
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 Osteopenia Pneumonia Pneumonia Recurrent sinusitis (~1970) Restless leg syndrome Shoulder pain (~03/2018) Sleep apnea Wears glasses Physical Therapy Inpatient Evaluation/Re-Eval M1 PT/OT-IP Prior Functional Status Start: 05/01/21 09:21 Freq: NEEDED Status: Discharge Protocol: Document 05/01/21 11:30 AW (Rec: 05/01/21 13:12 AW [id number]) Medical Review Prior Functional Status Medical History Reviewed Yes Communication Pt is able to make needs known Mobility and Gait Pt states she uses a SPC 100% of the time but also has FWW and 4WW for when she is feeling more off balance due to pain. Activities of Daily Living and IADL's Modified independent with use of grab bars and shower chair. 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 2 [place] through garage with grab bars near door. Home Environment High Toilet,Walk in Shower, Built-In Shower Seat Home Equipment Front Wheel Walker,Four Wheel Walker,Straight Cane,Shower Seat without Backrest,Hand Held Shower,Bending Shed Worker,Grab Bars Near Toilet,Grab Bars In Shower Employment Status Retired Additional Social History Comment Pt also has an adjustable bed at home. She lives in [place] with her spouse, Lucas, who is a retired ortho PA-C. M2 PT-IP Current Condition Start: 05/01/21 09:21 Freq: NEEDED Status: Discharge Protocol: Document 05/01/21 11:30 AW (Rec: 05/01/21 13:12 AW [id number]) Physical Therapy Current Condition Current Condition Evaluation Date 05/01/21 Treatment Diagnosis R PE, L DVT, GLF, difficulty in walking Onset Date 04/30/21 M3 PT-IP Subjective Start: 05/01/21 09:21 Freq: NEEDED Status: Discharge Protocol: Document 05/01/21 11:30 AW (Rec: 05/01/21 13:12 AW [id number]) Subjective Physical Therapy Visit Type Type Initial Evaluation Visit Start Time 11:07 Visit Stop Time 11:30 Total Visit Minutes 23 Notes Pt's spouse is present throughout this encounter. Number of DIRECTOR OF [employer] Visits 0 Physical Therapy Visit Comments Patient Comments Pt is willing to mobilize with PT Patient Goals Return home today with spouse support Therapy Pain Assessment Pain When Pain Assessed During Mobility Pain Present Pain Present Pain Reported Location back Scale Used back and left knee; not quantified M4 PT-IP Mobility and Gait Start: 05/01/21 09:21 Freq: NEEDED Status: Discharge Protocol: Document 05/01/21 11:30 AW (Rec: 05/01/21 13:12 AW [id number]) PT-Bed Mobility Assessment Supine to Sit Supine to Sit Minimal Assistance,Head of Bed Elevated,Bedrails Scooting Scooting to Edge of Bed Standby Assistance PT-Transfer Assessment Sit to and From Stand Sit to and from Stand Contact Guard Assistance, Minimal Assistance Equipment Transfer Assistive Device Gait Belt,Straight Cane,Front Wheeled Walker Orthotic/Prosthetic Devices or Brace: No Transfers Transfer Destination Chair Transfer Technique pt amb with SPC and FWW Transfer Ability Level of Assist Contact Guard Assistance Comments Mobility Comments Pt was lying in the bed as PT arrived. SpO2 97% on room air, BP 139/78. She was able to scoot herself up in the bed, pushing with both legs and using arms on bed rails to pull. With HOB elevated, pt needed min assist to sit up EOB. She completed knee AROM exercises in sitting. She scooted herself forward and stood min A x 1 to SPC. She needed assist for steadiness to transfer to bedside chair and controlled her descent poorly. Pt agreed to use FWW and stood from the chair CGA with good awareness to use her arms for push off. With FWW, she ambulated 30 feet in the room SBA/CGA and returned to the chair CGA. SpO2 was 97% and BP was stable. Gait Assessment Gait Gait Assistance Required: Standby Assistance,Contact Guard Assist Distance (Feet) 30 Able to Maintain Weight Bearing Status Yes During Gait Assistive Devices Assistive Device Gait Belt,Front Wheeled Walker Orthotic/Prosthetic Devices or Brace: No Gait Deviations General Gait Pattern Antalgic,Decreased Stride Length,Decreased Feet Clearance,Lateral Trunk Lean Factors Limiting Gait Function Factors Limiting Gait Function Decreased Activity Tolerance, Decreased Strength,Pain,Poor Balance Comments Gait Comments See mobility comments for details. Stair Climbing Assessment Comments Stair Climbing Comments Pt refused stair assessment. PT-Balance Assessment Sitting Balance and Reactions Static Sitting Balance Ability Good Dynamic Sitting Balance Ability Good Standing Balance and Reactions Static Standing Balance Ability Fair Dynamic Standing Balance Ability Fair Device Used FWW M5 PT-IP Objective Assessments Start: 05/01/21 09:21 Freq: NEEDED Status: Discharge Protocol: Document 05/01/21 11:30 AW (Rec: 05/01/21 13:12 AW [id number]) Orientation Orientation/Cognition Level of Alertness Alert Orientation Name,Day of Week,Place, Situation Language Function Ability No Deficits Noted Safety Awareness Understands Safety Issues Memory Description No Deficits Noted Gross Range of Motion Lower Extremity ROM Assessment Within Functional Limits Strength Lower Extremity Strength Assessment Bilaterally Impaired Hip 4-/5 Knee 3+/5 Ankle 4/5 Sensation Assessment Sensation Gross Sensation WNL M6 PT-IP Treatment Start: 05/01/21 09:21 Freq: NEEDED Status: Discharge Protocol: Document 05/01/21 11:30 AW (Rec: 05/01/21 13:12 AW [id number]) Physical Therapy Treatment Education Education Provided Safety M7 PT-IP Assessment and Plan Start: 05/01/21 09:21 Freq: NEEDED Status: Discharge Protocol: Document 05/01/21 11:30 AW (Rec: 05/01/21 13:12 AW [id number]) PT Summary Assessment and Plan Potential Rehabilitation Potential Good Status of Condition at Evaluation Evolving Summary Impairments Pain,Strength,Balance,Bed Mobility,Transfers,Gait, Activity Tolerance Assessment Summary Radha is a 71 yo woman admitted with R pulmonary embolism and DVT. She has been sufficiently anticoagulated and is seen for PT evaluation as she nears discharge. She is morbidly obese and has frequent respiratory infections. She requires CGA/ min assist for moblility using FWW. She lives with her supportive spouse who is able to provide assist at home. Pt will be safe to discharge home with assist once medically stable. Goals Bed Mobility Goal Independent Transfer Goal Independent Gait Goal Independent,Front Wheel Walker Gait Distance 75 Other Goals - up/down 2 steps with rail CGA - improve transfers and gait to I with SPC Days to Meet Goals 3 Frequency of Treatment Frequency Of Treatment Once a Day Treatment Plan Physical Therapy Treatment Plan Bed Mobility Training,Transfer Training,Gait Training, Therapeutic Exercise,Balance Retraining,Discharge Planning, Hot or Cold Pack Other Recommendations and Next Treatment stair and gait training in Focus preparation for discharge Precautions Other Precautions fall risk Discharge Recommendations PT Discharge Recommendations Home with Assistance,Home with 24/7 Assist Available Transportation Needs at Discharge Private Vehicle
--- NOTE | 2021-05-01 11:39 | P.DS_ITS ---
History of Present Illness History of Present Illness Date Patient Seen: 05/01/21 Time Patient Seen: 11:39 Chief complaint: Fatigue, irregular heart rate Narrative: Radha Zavaleta a 71-year-old female with a history of common variable immune deficiency, diabetes type 2, asthma with childhood exposure to secondary tobacco, hypertension and hyperlipidemia presented today to the ED with fatigue and what was thought to be an irregular heart beat. Today she noticed that she was having clammy and are heart rate seems low.? She did check her temperature at home and states it was normal.? She feels little bit better here on oxygen she was not using her home O2.? This started at 8:39 a.m. this morning she has had persistent shortness of breath but no worsening symptoms.? No chest pain or pressure.? She has had a cough that continues to be productive during her pr evious admission and states her sputum was bloody than black and turned to a melchor coloration.? She usually has some normal productive sputum but this is still a different color. She denies any nausea or vomiting.? No abdominal pain.? She states both her lower extremities have or little bit swollen in the hospital and have worsened in the last 1-2 days.? She did take an extra dose of Lasix today.? She denies any issues with bowel movements or urination.? No diarrhea constipation.? No dysuria urgency or frequency.? She was recently admitted for bilateral pneumonia and, which is suspected to be Pseudomonas who was discharged on April 24 after recurrent hospitalizations and has been discharged home on IV antibiotics with a PICC line in place. She was initially discharged on IV Zosyn, but after consultation with Dr. Kelley Infectious Disease physician at [facility], it was changed to meropenum and doxycycline. ?She is currently on prednisone.? She was initially diagnosed with sepsis but without hypotension, elevated lactate and had negative blood cultures during her hospitalization and diagnosis was pneumonia and was discharged home on several L of O2 as needed.? She has been using at night but not during the day.? She is also on medication for.? ?She had cultures repeated on Sunday with a sputum culture.? Patient is following with Infectious Disease Dr. Moses through [facility] as well as her cardiac care unit nurse Dr. Maharaj at [facility]. In the ED, she was suspected of having a NSTEMI or new onset CHF. They consulted with Dr. Mcdowell, [employer] Product Specialist who recommended aspirin, echo, heparin if rising troponin.? Recontact based on the findings.? At this time if patient's troponin was not rising would potentially get a pharmacologic stress test. A DVT ultrasound do show a small occlusive thrombus and Lovenox 1mg/kg dose was administered.?With the exception of a severely dilated left atrium, echo was largely normal including an EF of 60%.? Patient's troponin was slightly downward trending. She was continued on IV antibiotics for pneumonia.? Patient is afebrile, blood pressure 172/91, heart rate 54, respiratory rate 16 oxygen saturation 97% on 2 L she weighs 108 kg with a BMI of 46.8.? WBC is 16.7, chills left shift of initial count of 14,700, platelet count 309, sodium 134, BUN 34, glucose 217, lactate was normal, troponin 0.133 initially dropping down to 0.124, proBNP is 2120, procalcitonin is normal, UA is negative for UTI, COVID-19 PCR is negative. Discharge Providers Provider Date of admission: 04/29/21 15:52 Discharge Date: 05/01/21 Primary care physician: Karin Porter MD Consults: 04/30/21 15:18 Consult to Physical Therapy Evaluate & Treat Comment: Physician Instructions: Evaluate and Treat 04/30/21 15:19 Consult to Occupational Therapy Evaluate & Treat Comment: Physician Instructions: Evaluate and treat Discharge provider: Radha Fan MD Summary Hospital Course Discharge Diagnosis: 1. Right-sided pulmonary embolism, with a left lower extremity DVT 2. Pneumonia, secondary to Pseudomonas 3. Hypertension 4. Type 2 diabetes 5. Hypothyroid 6. Morbid obesity 7. Left knee pain following a fall Hospital Course: Patient is a delightful 71-year-old female who was admitted to the hospital feeling poorly. On admission she was found to have a left lower extremity DVT. Further follow-up confirmed a right-sided pulmonary embolus. The patient was treated with Lovenox during her hospital stay. On the night of admission the patient attempted to get out of bed and slipped and fell. She injured her knee. She developed some ecchymoses over the right knee. She complained of knee pain with ambulation. X-rays of the knee were obtained and revealed no evidence of fracture, there was a effusion noted. The patient's breathing has improved. She does note some minimal pain with deep inspiration. However she is not hypoxic or short of breath at rest. She was deemed appropriate for discharge. She will be discharged home. Status at Discharge Cognitive/behavioral status at discharge: oriented Functional status at discharge: independent ambulation Overall status at discharge: patient is progressing back to baseline Exam Vital Signs (past 8 hours): - 05/01/21 05:56 05/01/21 07:49 05/01/21 09:58 Temperature 97.2 F L 97.7 F Pulse Rate 77 64 58 L Respiratory Rate 16 14 16 Blood Pressure 116/74 134/61 Pulse Oximetry 96 94 94 Oxygen Delivery Method Room Air Oxygen Flow Rate 0 Narrative Exam Narrative: Pleasant female resting comfortably in no obvious distress Resp Other: Lungs: Clear to auscultation Cardio Other: Cardiac exam: Regular rate and rhythm normal S1-S2 with a 2/6 systolic ejection murmur GI Other: Abdomen: Soft nontender nondistended Extrem Other: Extremities: Bruising along the left knee, mildly tender to palpation Objective Imaging Echo: Radiologist's impression: Normal left ventricular size, wall motion, and systolic function (EF 60- 65%). 2) Normal right ventricular size with borderline reduced function. 3) The left atrium is severely dilated. 4) There is mild aortic stenosis. 5) There is mild calcific mitral stenosis (mean gradient 7mmHg, HR 86-98bpm). 6) Compared to the Echo done 01/25/2021, no significant change. ? Labs Result Diagrams: 05/01/21 07:55 05/01/21 07:55 Labs: Laboratory Results - last 24 hr 05/01/21 05/01/21 07:55 07:55 WBC 12.0 H RBC 4.17 Hgb 11.7 L Hct 35.3 L MCV 84.7 MCH 28.0 MCHC 33.0 RDW 17.6 H Plt Count 256 Neut % (Auto) 74.4 Lymph % (Auto) 15.7 L Starke % (Auto) 9.4 Eos % (Auto) 0.0 L Baso % (Auto) 0.5 Neut # (Auto) 9000 H Lymph # (Auto) 1900 Starke # (Auto) 1100 H Eos # (Auto) 0 Baso # (Auto) 100 Sodium 133 L Potassium 4.1 Chloride 101 Carbon Dioxide 29 BUN 24 H Creatinine 0.84 Estimated GFR > 60.0 BUN/Creatinine Ratio 28.6 H Glucose 190 H Calcium 9.1 Magnesium 2.0 PFSH Medical History Abnormal chest xray (~1979) Anemia Ankle pain Asthma (~1959) Bronchiectasis (~2006) Cervical spine disease Chronic back pain Colon polyps (~2015) Degenerative joint disease of spine (~2001) Diabetes mellitus, type II (~2009) Eczema Fibromyalgia Foot pain Hoarseness Hyperlipidemia Hypertension Hypothyroidism Migraines (~1964) 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 Osteopenia Pneumonia Pneumonia Recurrent sinusitis (~1970) Restless leg syndrome Shoulder pain (~03/2018) Sleep apnea Wears glasses Surgical History Anesthesia History of carpal tunnel release History of cataract removal with insertion of prosthetic lens (~2014) History of section History of laminectomy (~2002) History of spinal fusion (~2012) History of thumb surgery Family History Father Stroke Mother Hypertension Brother Cerebral aneurysm Prostate cancer Diabetes mellitus Hypertension Stroke Brother Arthritis Hyperlipidemia Hypertension Sister History of kidney cancer Hypertension Grandfather Cancer Grandmother Cancer Other Family history non-contributory Social History household members: spouse Smoking Status: Never smoker alcohol intake: current Discharge Assessment & Plan Assessment and Plan Assessment: Right-sided pulmonary embolism, with a left lower extremity DVT 2. Pneumonia, secondary to Pseudomonas 3. Hypertension 4. Type 2 diabetes 5. Hypothyroid 6. Morbid obesity 7. Left knee pain following a fall Plan of Treatment: Discharge home Medications as prescribed Follow-up with PCP next week Discharge Plan Discharge Plan Patient Disposition: Home Discharge orders & Medications Prescriptions: New oxycodone 10 mg Tablet 10 mg PO QID PRN (Reason: Pain (Scale Score 7-10)) Qty: 15 0RF apixaban 5 mg (74 tabs) tablets,dose pack 5 mg PO BID Qty: 74 0RF Rx Instructions: take 10 mg twice daily for 7 days, then 5mg twice daily Continued Mucinex 1,200 MG tablet extended release 12hr 1,200 mg PO Q12H Qty: 0 0RF polyethylene glycol 3350 [Miralax] 119 GM powder 17 gm PO DAILY PRN (Reason: Constipation) Qty: 0 0RF ondansetron HCl [Zofran] 4 mg tablet 4 mg PO Q8H PRN (Reason: nausea and vomiting) Qty: 30 1RF clonidine HCl 0.1 mg tablet 0.1 mg PO BID Qty: 180 0RF Rx Instructions: PT WILL NEED TO BE SEEN BEFORE NEXT RENEWAL 08/05/20 losartan 50 mg tablet 50 mg PO DAILY Qty: 90 0RF Rx Instructions: PT WILL NEED TO BE SEEN BEFORE NEXT RENEWAL 08/05/20 metformin 1,000 mg tablet 1,000 mg PO BID Qty: 180 0RF Rx Instructions: PT DUE FOR APPT PRIOR TO END OF CURRENT RX. PLEASE CALL TO SCHEDULE APPT. THANKS 09/03/20 pramipexole 0.5 mg tablet 0.5 mg PO BEDTIME Qty: 15 0RF Rx Instructions: NO FUTURE FILLS UNTIL SEEN. PATIENT OVERDUE FOR APPT. PLEASE CALL TO SCHEDULE APPT. THANKS. 02/28/21 Privigen 10 % solution 45 gram IV Q3W 0RF ferrous sulfate 325 mg (65 mg iron) tablet 325 mg PO BEDTIME 0RF spironolactone 50 mg tablet 50 mg PO DAILY 0RF tizanidine 4 mg capsule 4 mg PO QID PRN (Reason: Muscle Spasm) 0RF cholecalciferol (vitamin D3) 2,000 unit tablet 2,000 unit PO DAILY 0RF albuterol sulfate 90 mcg/actuation HFA aerosol inhaler 2 puff INHALATION Q4-6H PRN (Reason: Shortness Of Breath) 0RF fluticasone propionate [Flonase Allergy Relief] 50 mcg/actuation spray,robert pension 1 spray NASAL BID PRN (Reason: Allergy Symptoms) 0RF meropenem 1 gram recon soln 2 g IV Q8HR 0RF lansoprazole [Prevacid 24Hr] 15 mg Capsule,Delayed Release(Dr/Ec) 30 mg PO DAILY 0RF prednisone 10 mg tablet 10 mg PO DIRECTED 0RF Rx Instructions: 40MG PO X 3 DAYS 30MG PO X 3 DAYS 20MG PO X 3 DAYS 10MG PO DAILY UNTIL STOPPED BY PCP OR PULM sodium chloride 3 % Solution For Nebulization 3 ml INHALATION DIRECTED 0RF Rx Instructions: use w/ nebulizer 2 x daily montelukast [Singulair] 10 mg Tablet 10 mg PO BEDTIME 0RF Zyrtec 10 mg Capsule 10 mg PO DAILY 0RF pregabalin 200 mg Capsule 200 mg PO BID 0RF atorvastatin 40 mg Tablet 40 mg PO BEDTIME 0RF ipratropium-albuterol 0.5 mg-3 mg(2.5 mg base)/3 mL Solution For Nebulization 3 ml INHALATION Q4H PRN (Reason: wheezing/ shortness of breath) 0RF sojmmxqtzr-[id number]-[id number] 50-325-40 mg Tablet 1 tab PO Q4H PRN (Reason: Migraine Headache) 0RF levothyroxine 75 mcg Tablet 75 mcg PO QAM 0RF nortriptyline 25 mg Capsule 25 mg PO BEDTIME 0RF fluticasone propion-salmeterol [Advair Diskus] 500-50 mcg/dose Blister With Device 1 inh INHALATION Q12H 0RF epinephrine [EpiPen] 0.3 mg/0.3 mL Auto-Injector 0.3 mg IM Q5-15M PRN (Reason: Allergic Reaction) 0RF Rx Instructions: do not exceed 3 doses per episode Spiriva with HandiHaler 18 mcg Capsule, W/Inhalation Device 1 cap INHALATION DAILY 0RF Rx Instructions: puncture 1 cap using device; one dose = 2 inhalations insulin glargine 100 unit/mL solution 30 unit SUBCUT DAILY 0RF furosemide [Lasix] 20 mg tablet 20 mg PO QAM 0RF insulin lispro [Humalog KwikPen Insulin] 100 unit/mL insulin pen 4 - 8 unit SUBCUT TID 0RF Bacid 1 billion cell- 250 mg Tablet 1 ea PO TIDWM Qty: 90 3RF fluconazole [Diflucan] 200 mg tablet 200 mg PO DAILY Qty: 20 0RF doxycycline hyclate 100 mg tablet 100 mg PO BID Qty: 42 0RF Discontinued aspirin 81 mg tablet,delayed release (DR/EC) 81 mg PO QPM 0RF oxycodone 10 mg Tablet 10 mg PO QID PRN (Reason: Pain (Scale Score 7-10)) 0RF naproxen sodium [Aleve] 220 mg Capsule 220 mg PO BID PRN (Reason: Pain (Scale Score 4-6)) 0RF No Action (DME) insulin syringe-needle U-100 [BD Insulin Syringe Ultra-Fine] 0.5 mL 31 gauge x 5/16 syringe See Rx Instructions .ROUTE .MEDSUPPLY Qty: 100 1RF Rx Instructions: Use once a day as directed (DME) verio reflect glucometer Qty: 1 0RF Rx Instructions: As directed Follow up/Referrals: Karin Porter MD [Primary Care Provider] - Discharge Data Primary Care Provider: Karin Porter Quality VTE Deep Vein Thrombosis/Pulmonary Embolism Present on Admission: Yes
--- NOTE | 2021-05-01 12:51 | CM.DPC ---
DCP/continued: Reviewed chart. Per Dr. Fan patient medically stable to d/c from [facility] today. Patient on service with [facility] for IV abx. This is not new, patient went home last admit with IV abx related to sepsis. Patient currently being followed by Dr. Kelley at [facility] for infectious disease. Met with patient and spouse at bedside. MARRIAGE PERFORMER confirmed with both that they continue to be on IV abx through [facility]. Spouse reports that they just recently had shipment delivered. Notified patient and spouse that CM team would send [facility] d/c summary informing them patient was hospitalized. Both aware and agreeable. P: Home today. D/C summary faxed to [facility] but no changed made to outpatient IV abx during hospitalization. DARREN
--- NOTE | 2021-05-01 13:09 | PC.NURSE ---
Pt up in chair and then worked with PT pain controlled with po meds. DC home with written and verbal instructions.
== END 2021-05-01 13:09 | disposition home or self-care (01) | DRG 177 ==
LOC: ED 15:51 → AC 15:52
PROVIDERS: Nurse Practitioner Family; Admitting Provider Internal Medicine; Emergency Provider Emergency Medicine; Family Provider Internal Medicine Infectious Disease; PCP Internal Medicine; Referring Provider Emergency Medicine; Visit Provider Internal Medicine
DX: J15.1 Pneumonia due to Pseudomonas (principal); I21.4 Non-ST elevation (NSTEMI) myocardial infarction; I26.99 Other pulmonary embolism without acute cor pulmonale; I82.412 Acute embolism and thrombosis of left femoral vein; Z68.42 Body mass index [BMI] 45.0-49.9, adult; D83.9 Common variable immunodeficiency, unspecified; E66.01 Morbid (severe) obesity due to excess calories; I10 Essential (primary) hypertension; E11.9 Type 2 diabetes mellitus without complications; E03.9 Hypothyroidism, unspecified; M25.562 Pain in left knee; G25.81 Restless legs syndrome; D64.9 Anemia, unspecified; J45.909 Unspecified asthma, uncomplicated; E78.5 Hyperlipidemia, unspecified; G47.30 Sleep apnea, unspecified; Z79.84 Long term (current) use of oral hypoglycemic drugs; Z79.4 Long term (current) use of insulin; Z77.22 Contact with and (suspected) exposure to environmental tobacco smoke (acute) (chronic); Z20.822 Contact with and (suspected) exposure to COVID-19
CPT/HCPCS: 36415; 71045; 71275; 73562; 80048; 80053; 81001; 82550; 82962; 83036; 83605; 83690; 83735; 83880; 84145; 84484; 85007; 85025; 87040; 87633; 93005; 93010; 93306; 93970; 94640; 94760; 94762; 96365; 96372; 96375; 97162; 99285; J1642; J1650; J1815; J1940; J2185

== ENCOUNTER → 2021-05-20 17:28 | Outpatient (CLI) | payer OTHER, SELFPAY ==
[2021-04-20 12:20] VITALS: PULSE 112
[2021-04-20 17:26] VITALS: RESP 24; O2SAT 97
[2021-04-29 20:23] VITALS: BMI 46.8
[2021-05-20 18:33] LABS: Appearance Urine UA CLEAR; Bilirubin Urine UA NEGATIVE (NEGATIVE); Color Urine UA YELLOW; Glucose Urine UA TRACE g/dL (Negative); Ketones Urine UA NEGATIVE (NEGATIVE); Leukocyte Esterase Urine UA NEGATIVE (NEGATIVE); Nitrite Urine UA NEGATIVE (Negative); Occult Blood Urine UA NEGATIVE (Negative); Protein Urine UA NEGATIVE (Negative); Urobilinogen Urine UA 0.2 E.U./dL (0.2)
[2021-05-20 18:42] LABS: Bacteria Urine None Seen; Culture Indicated Urine Cult Not Indicated; RBC Urine 0-1/HPF (0-5/HPF); Renal Epithelial Cells Urine 0-1/HPF (0-1/HPF); Squamous Epithelial Cell Urine 0-1 /HPF (0-5/HPF); Transitional Epi Cells Urine 0-1/HPF (0-5/HPF); WBC Urine 0-1/HPF (0-5/HPF)
== END ==
PROVIDERS: Family Provider Internal Medicine Infectious Disease; PCP Internal Medicine; Referring Provider Internal Medicine; Visit Provider Internal Medicine
DX: R35.0 Frequency of micturition (principal); R39.9 Unspecified symptoms and signs involving the genitourinary system; N39.498 Other specified urinary incontinence
CPT/HCPCS: 81001

== ENCOUNTER 2021-06-28 09:28 | Observation (INO) | payer OTHER, SELFPAY ==
[2021-04-20 12:20] VITALS: PULSE 112
[2021-04-20 17:26] VITALS: RESP 24; O2SAT 97
[2021-04-29 20:23] VITALS: BMI 46.8
[2021-06-28] VITALS (25 sets, daily range): BP systolic 106–168; BP diastolic 54–88; PULSE 85–101; RESP 18–25; TEMP 36.9–38.1; O2SAT 90–100; BMI 55.9
--- NOTE | 2021-06-28 09:34 | ED_ITS ---
HPI - Weakness General Chief complaint: Shortness of Breath/Dyspnea Stated complaint: SpO2 88% on room air Time Seen by Provider: 06/28/21 09:34 History of Present Illness HPI Narrative: Patient is a 71-year-old female who does have a history of pulmonary embolism from DVT in April. At that time she was hospitalized she was it was also found elevated troponins and STEMI and congestive heart failure. Has been reports that she woke up this morning feeling weak. Previously when she felt weak was when she had a pulmonary embolism in her O2 was 70%. He did not want to wait this time he checked the O2 immediately and it was about 88%. That time EMS was called. EMS also concurs that she is hypoxic in the high 80s and she is put on 1-2 L of oxygen. She feet says that she has generally felt weak for the last few months. She uses both a walker and a wheelchair to get around. She has ongoing chronic lower extremity edema and wounds which she is managing herself. She has not had any fever or chills. She is not the greatest historian. She states that her leg started getting red and swollen last week. She started wrapping them incur lacks last week, she has an appointment for tomorrow for her legs. She is found have low-grade fever of 100.5. states that she does see infectious disease for chronic pneumonia and bronchiectasis. Related Data Home Medications Medication Instructions Recorded Confirmed polyethylene glycol 3350 17 17 gm PO DAILY PRN #0 06/06/17 04/29/21 gram/dose oral powder (Miralax) albuterol sulfate 90 mcg/actuation 2 puff INHALATION Q4-6H PRN 05/29/19 06/28/21 aerosol inhaler cholecalciferol (vitamin D3) 50 2,000 unit PO DAILY 05/29/19 04/29/21 mcg (2,000 unit) tablet ferrous sulfate 325 mg (65 mg 325 mg PO BEDTIME 05/29/19 04/29/21 iron) tablet immune glob,gamm(IgG) 10 %-pro-IgA 45 gram IV Q3W ml 05/29/19 04/29/21 0 to 50 mcg/mL intravenous solution (Privigen) spironolactone 50 mg tablet 50 mg PO DAILY 05/29/19 06/28/21 tizanidine 4 mg capsule 4 mg PO QID PRN 05/29/19 06/28/21 fluticasone propionate 50 1 spray NASAL BID PRN 05/31/19 04/29/21 mcg/actuation nasal spray,suspension (Flonase Allergy Relief) sodium chloride 3 % for 3 ml INHALATION DIRECTED 06/05/19 04/29/21 nebulization cetirizine 10 mg capsule (Zyrtec) 10 mg PO DAILY 01/20/20 04/29/21 montelukast 10 mg tablet 10 mg PO BEDTIME 01/20/20 06/28/21 (Singulair) atorvastatin 40 mg tablet 40 mg PO BEDTIME 04/20/21 06/28/21 mfkarcudhj-kkmvmjqjprldo-jtcwlclr 1 tab PO Q4H PRN 04/20/21 04/29/21 50 mg-325 mg-40 mg tablet epinephrine 0.3 mg/0.3 mL 0.3 mg IM Q5-15M PRN 04/20/21 06/28/21 injection, auto-injector (EpiPen) fluticasone 500 mcg-salmeterol 50 1 inh INHALATION Q12H 04/20/21 04/29/21 mcg/dose blistr powdr for inhalation (Advair Diskus) furosemide 20 mg tablet (Lasix) 20 mg PO QAM 04/20/21 06/28/21 insulin glargine 100 unit/mL 30 unit SUBCUT DAILY 04/20/21 04/29/21 subcutaneous solution insulin lispro 100 unit/mL 4 - 8 unit SUBCUT TID 04/20/21 06/28/21 subcutaneous pen (Humalog KwikPen (U-100) Insulin) ipratropium 0.5 mg-albuterol 3 mg 3 ml INHALATION Q4H PRN 04/20/21 04/29/21 (2.5 mg base)/3 mL nebulization soln levothyroxine 75 mcg tablet 75 mcg PO QAM 04/20/21 06/28/21 nortriptyline 25 mg capsule 25 mg PO BEDTIME 04/20/21 06/28/21 pregabalin 200 mg capsule 200 mg PO BID 04/20/21 06/28/21 tiotropium bromide 18 mcg capsule 1 cap INHALATION DAILY 04/20/21 06/28/21 with inhalation device (Spiriva with HandiHaler) lansoprazole 15 mg capsule,delayed 30 mg PO DAILY 04/29/21 04/29/21 release (Prevacid 24Hr) prednisone 10 mg tablet 5 mg PO DIRECTED 04/29/21 06/28/21 buprenorphine 15 mcg/hour weekly 1 patch TRANSDERMAL QWEEK 06/28/21 06/28/21 transdermal patch duloxetine 30 mg capsule,delayed 30 mg PO DAILY 06/28/21 06/28/21 release fluticasone 500 mcg-salmeterol 50 1 inh INHALATION BID 06/28/21 06/28/21 mcg/dose blistr powdr for inhalation (Wixela Inhub) lovastatin 40 mg tablet 40 mg PO QPM 06/28/21 06/28/21 pramipexole 0.5 mg tablet 1 mg PO BEDTIME 06/28/21 06/28/21 Previous Rx's Medication Instructions Recorded ondansetron HCl 4 mg tablet 4 mg PO Q8H PRN #30 tab 10/06/19 (Zofran) verio reflect glucometer #1 ea 01/28/20 insulin syringe-needle U-100 0.5 #100 ea 03/30/20 mL 31 gauge x 5/16 (BD Insulin Syringe Ultra-Fine) clonidine HCl 0.1 mg tablet 0.1 mg PO BID #180 tab 08/05/20 losartan 50 mg tablet 50 mg PO DAILY #90 tab 08/05/20 metformin 1,000 mg tablet 1,000 mg PO BID #180 tab 09/03/20 L.acidophilus-L.bulgar-B.bifid-S.thermoph 1 ea PO TIDWM #90 tab 04/22/21 1 billion cell-250 mg tablet (Bacid) fluconazole 200 mg tablet 200 mg PO DAILY #20 tab 04/22/21 (Diflucan) apixaban 5 mg (74 tabs) tablets in 5 mg PO BID #74 ea 05/01/21 a dose pack oxycodone 10 mg tablet 10 mg PO QID PRN #15 tab 05/01/21 Allergies Allergy/AdvReac Type Severity Reaction Status Date / Time hydroxychloroquine Allergy Unknown Verified 06/28/21 10:10 [HYDROXYCHLOROQUINE] promethazine [From Phenergan] Allergy Agitated Verified 06/28/21 10:10 cefepime AdvReac Severe pruritis Verified 06/28/21 10:10 Review of Systems Review of Systems ROS Unobtainable: All systems reviewed & are unremarkable except as noted in HPI and below Constitutional Constitutional: Reports body ache(s), Reports fatigue and Reports fever(s) ENT Ears, Nose, Mouth, and Throat: Denies dizziness, Denies neck pain and Denies sore throat Cardiovascular Cardiovascular: Denies chest pain, Denies chest pain at rest, Reports leg edema and Reports orthopnea Respiratory Respiratory: Reports chest congestion, Reports cough and Reports wheezing Gastrointestinal Gastrointestinal: Denies abdominal pain, Denies nausea and Denies vomiting Musculoskeletal Musculoskeletal: Denies neck pain Integumentary/Breasts Skin/Breast: Reports rash, Reports skin pain (sensitive legs) and Reports skin swelling Neurologic Neurologic: Denies dizziness Psychiatric Psychiatric: Denies anxiety Endocrine Endocrine: Reports fatigue Allergic/Immunologic Allergic/Immunologic: Reports wheezing Patient History Medical History Abnormal chest xray (~1979) Anemia Ankle pain Asthma (~1959) Bronchiectasis (~2006) Cervical spine disease Chronic back pain Colon polyps (~2015) Degenerative joint disease of spine (~2001) Diabetes mellitus, type II (~2009) Eczema Fibromyalgia Foot pain Hoarseness Hyperlipidemia Hypertension Hypothyroidism Migraines (~1964) 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 Osteopenia Pneumonia Pneumonia Recurrent sinusitis (~1970) Restless leg syndrome Shoulder pain (~03/2018) Sleep apnea Wears glasses Surgical History Anesthesia History of carpal tunnel release History of cataract removal with insertion of prosthetic lens (~2014) History of section History of laminectomy (~2002) History of spinal fusion (~2012) History of thumb surgery Family History Father Stroke Mother Hypertension Brother Cerebral aneurysm Prostate cancer Diabetes mellitus Hypertension Stroke Brother Arthritis Hyperlipidemia Hypertension Sister History of kidney cancer Hypertension Grandfather Cancer Grandmother Cancer Other Family history non-contributory Social History household members: spouse Smoking Status: Never smoker alcohol intake: current Smoking Status: Never smoker alcohol intake frequency: holidays/special occasions only Substance Use Type: does not use Exam Initial Vital Signs Initial Vital Signs: Vital Signs Pulse Rate 98 H 06/28/21 09:33 Pulse Oximetry 98 06/28/21 09:33 GENERAL: Alert 71-year-old female she is response but obviously does not feel HEENT: Head atraumatic,EOMI, pupils reactive, face symmetric, [moist] mucous membranes CARDIOVASCULAR: Regular rate and rhythm without murmurs, rubs or gallops. RESPIRATORY: Breath sounds equal bilaterally, no wheezes rales or rhonchi. ABDOMEN: Soft, nontender. Normoactive bowel sounds all 4 quadrants. No guarding or rebound. EXTREMITIES: Normal range of motion, no clubbing or edema. Neurovascularly intact NEUROLOGICAL: Alert and oriented x3.Normal gait and speech. Last Picker strength equal bilaterally able to lift both legs briefly off the gurney for about 2 seconds SKIN: Bilateral lower extremity erythema right leg does have some oozing, left leg is definitely bright red. Course Orders Ordered: ED Orders 06/28/21 09:35 XR chest 1V Stat 06/28/21 09:40 EKG-12 Lead Stat 06/28/21 09:51 COVID19 -Nasal swab/Pre-Proc Stat 06/28/21 09:55 ABG [Arterial Blood Gas] Stat 06/28/21 10:15 Blood Culture Stat Complete Blood Count AUTO DIFF Stat Comprehensive Metabolic Panel Stat Lactate (Lactic Acid) Stat Magnesium Stat NT-proBNP (BNP-Adult 18+) Stat Partial Thromboplastin Time Stat Procalcitonin Stat Prothrombin Time INR Stat Troponin & CK Cardiac Panel Stat Urinalysis and Microscopic Stat Urine Culture Stat Discontinued Medications Acetaminophen (Acetaminophen 325 Mg Tablet) 975 mg PO NOW ONE Stop: 06/28/21 10:59 Last Admin: 06/28/21 11:40 Dose: 975 mg Documented by: GEORGE Levofloxacin (Levaquin) 500 mg in 100 mls @ 100 mls/hr IV NOW ONE Stop: 06/28/21 11:56 Last Infusion: 06/28/21 12:36 Dose: 0 mls/hr Documented by: Admin: 06/28/21 11:40 Dose: 100 mls/hr Documented by: GEORGE Vital Signs Vital signs: Vital Signs - 8 hr 06/28/21 09:33 06/28/21 09:45 06/28/21 09:50 Temperature 100.5 F H Pulse Rate 98 H 97 H 101 H Respiratory Rate 25 H 24 Blood Pressure 128/64 Pulse Oximetry 98 98 90 L 06/28/21 10:00 06/28/21 10:15 06/28/21 10:24 Temperature 99.5 F Pulse Rate 94 H 93 H 93 H Respiratory Rate 23 24 22 Blood Pressure 148/71 H Pulse Oximetry 98 98 97 06/28/21 10:30 06/28/21 10:40 06/28/21 10:45 Temperature 100.0 F H 100.4 F H 100.4 F H Pulse Rate 91 H 92 H 92 H Respiratory Rate 21 21 21 Blood Pressure 148/75 H 156/74 H Pulse Oximetry 97 96 99 06/28/21 10:50 06/28/21 11:00 06/28/21 11:10 Temperature 100.4 F H 100.4 F H 100.4 F H Pulse Rate 92 H 92 H 91 H Respiratory Rate 19 22 18 Blood Pressure 157/77 H 153/74 H 149/74 H Pulse Oximetry 100 100 100 06/28/21 11:15 06/28/21 11:21 06/28/21 11:30 Temperature 100.4 F H 100.4 F H 100.2 F H Pulse Rate 91 H 91 H 91 H Respiratory Rate 20 20 19 Blood Pressure 168/88 H 140/68 Pulse Oximetry 100 98 97 06/28/21 11:40 06/28/21 11:45 06/28/21 11:50 Temperature 100.2 F H 100.2 F H 100.2 F H Pulse Rate 92 H 91 H 90 Respiratory Rate 25 H 22 20 Blood Pressure 136/67 143/72 H Pulse Oximetry 98 97 96 06/28/21 12:00 Temperature 100.2 F H Pulse Rate 90 Respiratory Rate 19 Blood Pressure 144/69 H Pulse Oximetry 95 MDM - Weakness Lab Data Result diagrams: 06/28/21 10:15 06/28/21 10:15 Labs: Lab Results 06/28/21 06/28/21 06/28/21 Range/Units 09:51 09:55 10:15 WBC 10.5 (4.5-11.0) X10^3/uL RBC 3.75 L (4.0-5.2) X10^6/uL Hgb 11.0 L (12.0-16.0) g/dL Hct 33.0 L (36-46) % MCV 88.0 (80-100) fL MCH 29.4 (26-34) PG MCHC 33.4 (30-36) % RDW 18.9 H (11.6-14.8) % Plt Count 282 (150-400) X10^3/uL Neut % (Auto) 79.7 H (50-75) % Lymph % (Auto) 12.9 L (25-40) % [place] % (Auto) 7.0 (3-14) % Eos % (Auto) 0.0 L (2-4) % Baso % (Auto) 0.4 (0-2) % Neut # (Auto) 8400 H (7233-0353) /uL Lymph # (Auto) 1400 (4019-6842) /uL [place] # (Auto) 700 (0-900) /uL Eos # (Auto) 0 (0-450) /uL Baso # (Auto) 0 (0-100) /uL PT (10.1-12.7) SECONDS INR (0.9-1.3) APTT (26.4-36.2) SECONDS ABG pH 7.47 H (7.35-7.45) ABG pCO2 40.3 (35-45) mmHg ABG pO2 76 L (80-100) mmHg ABG HCO3 29 H (22-26) mmol/L ABG Total CO2 30 (21-31) mmol/L ABG O2 Saturation 98 (95-100) % ABG Base Excess 5.0 H (-2-2) mmol/L FiO2 28 Sodium (137-145) mmol/L Potassium (3.4-5.1) mmol/L Chloride (98-107) mmol/L Carbon Dioxide (22-32) mmol/L BUN (7-17) mg/dL Creatinine (0.52-1.04) mg/dL Estimated GFR (>60) mL/min BUN/Creatinine Ratio (6-22) Glucose (80-110) mg/dL Lactate (0.7-2.1) mmol/L Calcium (8.4-10.2) mg/dL Magnesium (1.6-2.3) mg/dL Total Bilirubin (0.2-1.3) mg/dL AST (14-36) IU/L ALT (<35) IU/L Alkaline Phosphatase (38-126) U/L Total Creatine Kinase (30-135) U/L CK-MB (CK-2) CK-MB (CK-2) Rel Index Troponin I (0.01-0.034) ng/mL NT-Pro-B Natriuret Pep (<125) pg/mL Total Protein (6.3-8.2) g/dL Albumin (3.5-5.0) g/dL Globulin (1.7-4.1) g/dL Albumin/Globulin Ratio (1.0-2.8) Procalcitonin (<0.5) ng/mL Urine Color Urine Appearance Urine pH (4.5-8.0) Ur Specific [place] (1.000-1.035) Urine Protein (Negative) Urine Glucose (UA) (Negative) g/dL Urine Ketones (NEGATIVE) Urine Occult Blood (Negative) Urine Nitrate (Negative) Urine Bilirubin (NEGATIVE) Urine Urobilinogen (0.2) E.U./dL Ur Leukocyte Esterase (NEGATIVE) Urine RBC (0-5/HPF) Urine WBC (0-5/HPF) Urine Bacteria (None) Ur Culture Indicated? SARS-CoV-2 (PCR) Negative (Negative) 06/28/21 06/28/21 06/28/21 Range/Units 10:15 10:15 10:15 WBC (4.5-11.0) X10^3/uL RBC (4.0-5.2) X10^6/uL Hgb (12.0-16.0) g/dL Hct (36-46) % MCV (80-100) fL MCH (26-34) PG MCHC (30-36) % RDW (11.6-14.8) % Plt Count (150-400) X10^3/uL Neut % (Auto) (50-75) % Lymph % (Auto) (25-40) % [place] % (Auto) (3-14) % Eos % (Auto) (2-4) % Baso % (Auto) (0-2) % Neut # (Auto) (3551-8689) /uL Lymph # (Auto) (5177-1316) /uL [place] # (Auto) (0-900) /uL Eos # (Auto) (0-450) /uL Baso # (Auto) (0-100) /uL PT 14.2 H (10.1-12.7) SECONDS INR 1.3 (0.9-1.3) APTT 32 (26.4-36.2) SECONDS ABG pH (7.35-7.45) ABG pCO2 (35-45) mmHg ABG pO2 (80-100) mmHg ABG HCO3 (22-26) mmol/L ABG Total CO2 (21-31) mmol/L ABG O2 Saturation (95-100) % ABG Base Excess (-2-2) mmol/L FiO2 Sodium (137-145) mmol/L Potassium (3.4-5.1) mmol/L Chloride (98-107) mmol/L Carbon Dioxide (22-32) mmol/L BUN (7-17) mg/dL Creatinine (0.52-1.04) mg/dL Estimated GFR (>60) mL/min BUN/Creatinine Ratio (6-22) Glucose (80-110) mg/dL Lactate 1.3 (0.7-2.1) mmol/L Calcium (8.4-10.2) mg/dL Magnesium 1.9 (1.6-2.3) mg/dL Total Bilirubin (0.2-1.3) mg/dL AST (14-36) IU/L ALT (<35) IU/L Alkaline Phosphatase (38-126) U/L Total Creatine Kinase 81 (30-135) U/L CK-MB (CK-2) TNP CK-MB (CK-2) Rel Index TNP Troponin I < 0.012 (0.01-0.034) ng/mL NT-Pro-B Natriuret Pep 469 H (<125) pg/mL Total Protein (6.3-8.2) g/dL Albumin (3.5-5.0) g/dL Globulin (1.7-4.1) g/dL Albumin/Globulin Ratio (1.0-2.8) Procalcitonin (<0.5) ng/mL Urine Color Urine Appearance Urine pH (4.5-8.0) Ur Specific [place] (1.000-1.035) Urine Protein (Negative) Urine Glucose (UA) (Negative) g/dL Urine Ketones (NEGATIVE) Urine Occult Blood (Negative) Urine Nitrate (Negative) Urine Bilirubin (NEGATIVE) Urine Urobilinogen (0.2) E.U./dL Ur Leukocyte Esterase (NEGATIVE) Urine RBC (0-5/HPF) Urine WBC (0-5/HPF) Urine Bacteria (None) Ur Culture Indicated? SARS-CoV-2 (PCR) (Negative) 06/28/21 06/28/21 06/28/21 Range/Units 10:15 10:15 10:15 WBC (4.5-11.0) X10^3/uL RBC (4.0-5.2) X10^6/uL Hgb (12.0-16.0) g/dL Hct (36-46) % MCV (80-100) fL MCH (26-34) PG MCHC (30-36) % RDW (11.6-14.8) % Plt Count (150-400) X10^3/uL Neut % (Auto) (50-75) % Lymph % (Auto) (25-40) % [place] % (Auto) (3-14) % Eos % (Auto) (2-4) % Baso % (Auto) (0-2) % Neut # (Auto) (6519-5316) /uL Lymph # (Auto) (7195-3052) /uL [place] # (Auto) (0-900) /uL Eos # (Auto) (0-450) /uL Baso # (Auto) (0-100) /uL PT (10.1-12.7) SECONDS INR (0.9-1.3) APTT (26.4-36.2) SECONDS ABG pH (7.35-7.45) ABG pCO2 (35-45) mmHg ABG pO2 (80-100) mmHg ABG HCO3 (22-26) mmol/L ABG Total CO2 (21-31) mmol/L ABG O2 Saturation (95-100) % ABG Base Excess (-2-2) mmol/L FiO2 Sodium 135 L (137-145) mmol/L Potassium 3.8 (3.4-5.1) mmol/L Chloride 98 (98-107) mmol/L Carbon Dioxide 31 (22-32) mmol/L BUN 30 H (7-17) mg/dL Creatinine 1.05 H (0.52-1.04) mg/dL Estimated GFR 51.4 L (>60) mL/min BUN/Creatinine Ratio 28.6 H (6-22) Glucose 165 H (80-110) mg/dL Lactate Cancelled (0.7-2.1) mmol/L Calcium 9.1 (8.4-10.2) mg/dL Magnesium (1.6-2.3) mg/dL Total Bilirubin 0.8 (0.2-1.3) mg/dL AST 23 (14-36) IU/L ALT 15 (<35) IU/L Alkaline Phosphatase 70 (38-126) U/L Total Creatine Kinase (30-135) U/L CK-MB (CK-2) CK-MB (CK-2) Rel Index Troponin I (0.01-0.034) ng/mL NT-Pro-B Natriuret Pep (<125) pg/mL Total Protein 6.9 (6.3-8.2) g/dL Albumin 3.5 (3.5-5.0) g/dL Globulin 3.4 (1.7-4.1) g/dL Albumin/Globulin Ratio 1.0 (1.0-2.8) Procalcitonin 0.11 (<0.5) ng/mL Urine Color Urine Appearance Urine pH (4.5-8.0) Ur Specific [place] (1.000-1.035) Urine Protein (Negative) Urine Glucose (UA) (Negative) g/dL Urine Ketones (NEGATIVE) Urine Occult Blood (Negative) Urine Nitrate (Negative) Urine Bilirubin (NEGATIVE) Urine Urobilinogen (0.2) E.U./dL Ur Leukocyte Esterase (NEGATIVE) Urine RBC (0-5/HPF) Urine WBC (0-5/HPF) Urine Bacteria (None) Ur Culture Indicated? SARS-CoV-2 (PCR) (Negative) 06/28/21 Range/Units 10:15 WBC (4.5-11.0) X10^3/uL RBC (4.0-5.2) X10^6/uL Hgb (12.0-16.0) g/dL Hct (36-46) % MCV (80-100) fL MCH (26-34) PG MCHC (30-36) % RDW (11.6-14.8) % Plt Count (150-400) X10^3/uL Neut % (Auto) (50-75) % Lymph % (Auto) (25-40) % [place] % (Auto) (3-14) % Eos % (Auto) (2-4) % Baso % (Auto) (0-2) % Neut # (Auto) (6093-9841) /uL Lymph # (Auto) (2117-9878) /uL [place] # (Auto) (0-900) /uL Eos # (Auto) (0-450) /uL Baso # (Auto) (0-100) /uL PT (10.1-12.7) SECONDS INR (0.9-1.3) APTT (26.4-36.2) SECONDS ABG pH (7.35-7.45) ABG pCO2 (35-45) mmHg ABG pO2 (80-100) mmHg ABG HCO3 (22-26) mmol/L ABG Total CO2 (21-31) mmol/L ABG O2 Saturation (95-100) % ABG Base Excess (-2-2) mmol/L FiO2 Sodium (137-145) mmol/L Potassium (3.4-5.1) mmol/L Chloride (98-107) mmol/L Carbon Dioxide (22-32) mmol/L BUN (7-17) mg/dL Creatinine (0.52-1.04) mg/dL Estimated GFR (>60) mL/min BUN/Creatinine Ratio (6-22) Glucose (80-110) mg/dL Lactate (0.7-2.1) mmol/L Calcium (8.4-10.2) mg/dL Magnesium (1.6-2.3) mg/dL Total Bilirubin (0.2-1.3) mg/dL AST (14-36) IU/L ALT (<35) IU/L Alkaline Phosphatase (38-126) U/L Total Creatine Kinase (30-135) U/L CK-MB (CK-2) CK-MB (CK-2) Rel Index Troponin I (0.01-0.034) ng/mL NT-Pro-B Natriuret Pep (<125) pg/mL Total Protein (6.3-8.2) g/dL Albumin (3.5-5.0) g/dL Globulin (1.7-4.1) g/dL Albumin/Globulin Ratio (1.0-2.8) Procalcitonin (<0.5) ng/mL Urine Color Yellow Urine Appearance Clear Urine pH 7.0 (4.5-8.0) Ur Specific [place] 1.010 (1.000-1.035) Urine Protein Negative (Negative) Urine Glucose (UA) Trace H (Negative) g/dL Urine Ketones Trace H (NEGATIVE) Urine Occult Blood Negative (Negative) Urine Nitrate Negative (Negative) Urine Bilirubin Negative (NEGATIVE) Urine Urobilinogen 0.2 (0.2) E.U./dL Ur Leukocyte Esterase Negative (NEGATIVE) Urine RBC None seen (0-5/HPF) Urine WBC 5-10/hpf H (0-5/HPF) Urine Bacteria None seen (None) Ur Culture Indicated? Specimen cultured SARS-CoV-2 (PCR) (Negative) Imaging Data Chest x-ray: Radiologist Impression: PROCEDURE:? XR CHEST 1V ? INDICATIONS:? short of breath ? TECHNIQUE:? One view of the chest was acquired.? ? COMPARISON:? [facility], CT, CT CHEST WITHOUT CONTRAST, 05/25/2021, 17:01.? [facility], CR, XR CHEST 1V, 04/29/2021, 11:47.? [facility], CR, XR CHEST FOR PICC 1V, 04/20/2021, 13:40. ? FINDINGS:? ? Surgical changes and devices:? None.? ? Lungs and pleura:? Lungs are clear.? No pleural effusions or pneumothorax.? ? Mediastinum:? Mediastinal contours appear unchanged.? Heart size is within normal limits. ? ? Bones and chest wall:? No suspicious bony lesions.? Overlying soft tissues appear unremarkable.? ? IMPRESSION:? No acute cardiopulmonary abnormality identified. ? ? ? Dictated by: Ivan Omer M.D. on 06/28/2021 at 9:33 ? ? Approved by: Ivan Omer M.D. on 06/28/2021 at 9:36 ? ECG Data Interpretation: Sinus rhythm rate 96 CO interval 126 QRS [address] changes is no T-wave inversions similar to previous EKG MDM Narrative Medical decision making narrative: Patient is slightly hypoxic but no evidence of congestive heart failure at this time. Troponin is also negative. She has been taking her Eliquis for her recent pulmonary embolism at this time I do not see a need to repeat scan her. She does have a low-grade fever probable source is her lower extremities. They are significantly red all the right leg does seem to be draining some. She does not appear septic she has no elevated lactic acid who has leukocytosis. However because she is still requiring 1-2 L of oxygen which may be related to her shallow breathing, and due to her multiple comorbidities and medical issues do recommend admitting to hospital. Dr. Fan is updated and agree with. Discharge Plan Departure Patient Disposition: Admitted As Inpatient Clinical Impression: Cellulitis Admit Date/Time: 06/28/21 12:07 Admit Provider: Radha Fan
--- NOTE | 2021-06-28 09:35 | DI.RAD.S_ITS ---
PROCEDURE: XR CHEST 1V INDICATIONS: short of breath TECHNIQUE: One view of the chest was acquired. COMPARISON: [facility], CT, CT CHEST WITHOUT CONTRAST, 05/25/2021, 17:01. [facility], CR, XR CHEST 1V, 04/29/2021, 11:47. [facility], CR, XR CHEST FOR PICC 1V, 04/20/2021, 13:40. FINDINGS: Surgical changes and devices: None. Lungs and pleura: Lungs are clear. No pleural effusions or pneumothorax. Mediastinum: Mediastinal contours appear unchanged. Heart size is within normal limits. Bones and chest wall: No suspicious bony lesions. Overlying soft tissues appear unremarkable. IMPRESSION: No acute cardiopulmonary abnormality identified. Dictated by: Ivan Omer M.D. on 06/28/2021 at 9:33 Approved by: Ivan Omer M.D. on 06/28/2021 at 9:36
[2021-06-28 10:06] LABS: HCO3 ABG 29 mmol/L (22-26); PCO2 ABG 40.3 mmHg (35-45); PO2 ABG 76 mmHg (80-100); TCO2 ABG 30 mmol/L (21-31); pH ABG 7.47 (7.35-7.45)
[2021-06-28 10:07] LABS: Fractionated Inspired Oxygen 28
[2021-06-28 10:13] LABS: COVID19 -Nasal RAPID Negative (Negative)
[2021-06-28 10:38] LABS: Add Manual Diff / Slide Review NO; Basophils Absolute Auto 0 /uL (0-100); Basophils Percent Auto 0.4 % (0-2); Eosinophils Absolute Auto 0 /uL (0-450); Lymphocytes Absolute Auto 1400 /uL (1100-4500); Lymphocytes Percent Auto 12.9 % (25-40); Mean Corpuscular HGB Conc 33.4 % (30-36); Mean Corpuscular Hemoglobin 29.4 PG (26-34); Monocytes Absolute Auto 700 /uL (0-900); Neutrophils Absolute Auto 8400 /uL (1500-7000); Neutrophils Percent Auto 79.7 % (50-75); Platelet Count 282 X10^3/uL (150-400); Red Blood Cell Count 3.75 X10^6/uL (4.0-5.2); Red Cell Distribution Width 18.9 % (11.6-14.8); White Blood Cell Count 10.5 X10^3/uL (4.5-11.0)
[2021-06-28 10:44] LABS: INR 1.3 (0.9-1.3); Prothrombin Time 14.2 SECONDS (10.1-12.7)
[2021-06-28 10:47] LABS: PTT Partial Thromboplastin Tim 32 SECONDS (26.4-36.2)
[2021-06-28 10:57] LABS: Alanine Aminotransferase 15 IU/L (<35); Albumin 3.5 g/dL (3.5-5.0); Alkaline Phosphatase 70 U/L (38-126); Aspartate Aminotransferase 23 IU/L (14-36); BUN Creatinine Ratio 28.6 (6-22); Bilirubin Total 0.8 mg/dL (0.2-1.3); Blood Urea Nitrogen 30 mg/dL (7-17); Calcium 9.1 mg/dL (8.4-10.2); Carbon Dioxide 31 mmol/L (22-32); Chloride 98 mmol/L (98-107); Estimated Glomerular Filt Rate 51.4 mL/min (>60); Globulin 3.4 g/dL (1.7-4.1); Glucose 165 mg/dL (80-110); HEMOLYSIS < 15 (0-50); Potassium 3.8 mmol/L (3.4-5.1); Sodium 135 mmol/L (137-145); Total Protein 6.9 g/dL (6.3-8.2)
[2021-06-28 10:58] LABS: Creatine Kinase 81 U/L (30-135); Lactate (Lactic Acid) 1.3 mmol/L (0.7-2.1); Magnesium 1.9 mg/dL (1.6-2.3)
[2021-06-28 11:09] LABS: NT-proBNP (BNP-Adult 18+) 469 pg/mL (<125); Troponin I < 0.012 ng/mL (0.01-0.034)
[2021-06-28 11:14] LABS: Procalcitonin 0.11 ng/mL (<0.5)
[2021-06-28] MEDS: levoFLOXacin 500 MG/100 ML PIGGYBACK 100 MG IV (11:40)
[2021-06-28] MEDS: ACETAMINOPHEN 325 MG TABLET 975 MG PO (11:40)
[2021-06-28 11:45] LABS: Appearance Urine UA CLEAR; Bilirubin Urine UA NEGATIVE (NEGATIVE); Color Urine UA YELLOW; Glucose Urine UA TRACE g/dL (Negative); Ketones Urine UA TRACE (NEGATIVE); Leukocyte Esterase Urine UA NEGATIVE (NEGATIVE); Nitrite Urine UA NEGATIVE (Negative); Occult Blood Urine UA NEGATIVE (Negative); Protein Urine UA NEGATIVE (Negative); Urobilinogen Urine UA 0.2 E.U./dL (0.2)
[2021-06-28 12:00] LABS: Bacteria Urine None Seen; Culture Indicated Urine Specimen Cultured; RBC Urine None Seen (0-5/HPF); WBC Urine 5-10/HPF (0-5/HPF)
--- NOTE | 2021-06-28 12:32 | PC.NURSE ---
B/l leg swelling. right leg is weeping serous sang. fluid, erythema. left leg is swollen and quite red. small amount of drainage.
[2021-06-28] MEDS: INSULIN LISPRO 100 UNIT/ML 3ML VIAL SUBCUT ×2 (17:26→22:12)
[2021-06-28] MEDS: ACETAMINOPHEN 325 MG TABLET 650 MG PO (17:31)
--- NOTE | 2021-06-28 18:28 | P.HP_ITS ---
History of Present Illness History of Present Illness Date Patient Seen: 06/28/21 Chief complaint: SpO2 88% on room air Narrative: The patient is a 71-year-old female with a history of common variable immunodeficiency, type 2 diabetes, asthma, chronic bronchiectasis, hypertension, hyperlipidemia, of pulmonary embolus and DVT in April 2019. Patient was discharged home on oxygen however she did not require the oxygen and they returned it. Over the past few days she has been feeling weak. She has also had a productive cough with green phlegm. She was noted to have a low-grade fev er to 100.5. She has had bilateral lower extremity redness. They noted the redness was worse today. She has weeping from the right lower extremity. The patient has also been noted to be hypoxic. Her O2 sat was 88%. A.m. EMS were called and the patient was brought to the hospital for further evaluation. Patient was found to have a white count of 10.5 in the emergency room, chest x- ray was negative for infiltrate, procalcitonin was normal. Patient was noted to have significant redness with weeping of the lower extremities. Initially was thought she had cellulitis of the left lower extremity. She was started on levofloxacin given her antibiotics allergies and was admitted to the hospital for further evaluation. Patient History Medical History Abnormal chest xray (~1979) Anemia Ankle pain Asthma (~1959) Bronchiectasis (~2006) Cervical spine disease Chronic back pain Colon polyps (~2015) Degenerative joint disease of spine (~2001) Diabetes mellitus, type II (~2009) Eczema Fibromyalgia Foot pain Hoarseness Hyperlipidemia Hypertension Hypothyroidism Migraines (~1964) 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 Osteopenia Pneumonia Pneumonia Recurrent sinusitis (~1970) Restless leg syndrome Shoulder pain (~03/2018) Sleep apnea Wears glasses Surgical History Anesthesia History of carpal tunnel release History of cataract removal with insertion of prosthetic lens (~2014) History of section History of laminectomy (~2002) History of spinal fusion (~2012) History of thumb surgery Family & Social History Family History Father Stroke Mother Hypertension Brother Cerebral aneurysm Prostate cancer Diabetes mellitus Hypertension Stroke Brother Arthritis Hyperlipidemia Hypertension Sister History of kidney cancer Hypertension Grandfather Cancer Grandmother Cancer Other Family history non-contributory Social History: household members spouse Prior Living Arrangements House Safety & Behavioral: Feels Safe in Current Yes Environment Been Physically Hurt or No Threatened By a Person Suicidal Ideation Description None Suicide Plan Description No Plan Tobacco & Substance use: Smoking Status Never smoker alcohol intake current alcohol intake frequency holiday/special occasion Substance Use Type does not use Meds Home Medications and Allergies Home Medications Medication Instructions Recorded Confirmed Type polyethylene glycol 3350 17 17 gm PO DAILY PRN #0 06/06/17 06/28/21 History gram/dose oral powder (Miralax) albuterol sulfate 90 mcg/actuation 2 puff INHALATION Q4-6H PRN 05/29/19 06/28/21 History aerosol inhaler cholecalciferol (vitamin D3) 50 2,000 unit PO DAILY 05/29/19 06/28/21 History mcg (2,000 unit) tablet ferrous sulfate 325 mg (65 mg 325 mg PO BEDTIME 05/29/19 06/28/21 History iron) tablet immune glob,gamm(IgG) 10 %-pro-IgA 45 gram IV Q3W ml 05/29/19 06/28/21 History 0 to 50 mcg/mL intravenous solution (Privigen) spironolactone 50 mg tablet 50 mg PO DAILY 05/29/19 06/28/21 History tizanidine 4 mg capsule 4 mg PO QID PRN 05/29/19 06/28/21 History sodium chloride 3 % for 3 ml INHALATION DIRECTED 06/05/19 06/28/21 History nebulization ondansetron HCl 4 mg tablet 4 mg PO Q8H PRN #30 tab 10/06/19 06/28/21 Rx (Zofran) cetirizine 10 mg capsule (Zyrtec) 10 mg PO DAILY 01/20/20 06/28/21 History montelukast 10 mg tablet 10 mg PO BEDTIME 01/20/20 06/28/21 History (Singulair) verio reflect glucometer #1 ea 01/28/20 04/29/21 Rx insulin syringe-needle U-100 0.5 #100 ea 03/30/20 04/29/21 Rx mL 31 gauge x 5/16 (BD Insulin Syringe Ultra-Fine) clonidine HCl 0.1 mg tablet 0.1 mg PO BID #180 tab 08/05/20 06/28/21 Rx losartan 50 mg tablet 50 mg PO DAILY #90 tab 08/05/20 06/28/21 Rx metformin 1,000 mg tablet 1,000 mg PO BID #180 tab 09/03/20 06/28/21 Rx atorvastatin 40 mg tablet 40 mg PO BEDTIME 04/20/21 06/28/21 History epinephrine 0.3 mg/0.3 mL 0.3 mg IM Q5-15M PRN 04/20/21 06/28/21 History injection, auto-injector (EpiPen) furosemide 20 mg tablet (Lasix) 20 mg PO QAM 04/20/21 06/28/21 History insulin glargine 100 unit/mL 35 unit SUBCUT DAILY 04/20/21 06/28/21 History subcutaneous solution insulin lispro 100 unit/mL 4 - 8 unit SUBCUT TID 04/20/21 06/28/21 History subcutaneous pen (Humalog KwikPen (U-100) Insulin) ipratropium 0.5 mg-albuterol 3 mg 3 ml INHALATION BID 04/20/21 06/28/21 History (2.5 mg base)/3 mL nebulization soln levothyroxine 75 mcg tablet 75 mcg PO QAM 04/20/21 06/28/21 History nortriptyline 25 mg capsule 25 mg PO BEDTIME 04/20/21 06/28/21 History pregabalin 200 mg capsule 200 mg PO BID 04/20/21 06/28/21 History tiotropium bromide 18 mcg capsule 1 cap INHALATION DAILY 04/20/21 06/28/21 History with inhalation device (Spiriva with HandiHaler) lansoprazole 15 mg capsule,delayed 30 mg PO BID 04/29/21 06/28/21 History release (Prevacid 24Hr) prednisone 10 mg tablet 5 mg PO DIRECTED 04/29/21 06/28/21 History apixaban 5 mg (74 tabs) tablets in 5 mg PO BID #74 ea 05/01/21 06/28/21 Rx a dose pack acyclovir 5 % topical ointment 1 applic TOPICAL 6XD PRN 06/28/21 06/28/21 History benralizumab 30 mg/mL subcutaneous 30 mg SUBCUT Q8W 06/28/21 06/28/21 History auto-injector buprenorphine 15 mcg/hour weekly 1 patch TRANSDERMAL QWEEK 06/28/21 06/28/21 History transdermal patch duloxetine 30 mg capsule,delayed 30 mg PO DAILY 06/28/21 06/28/21 History release fluticasone 500 mcg-salmeterol 50 1 inh INHALATION BID 06/28/21 06/28/21 History mcg/dose blistr powdr for inhalation (Wixela Inhub) guaifenesin 1,200 mg tablet, 1,200 mg PO BID 06/28/21 06/28/21 History extended release 12 hr (Mucinex) oxycodone-acetaminophen 10 mg-325 1 tab PO Q6H PRN 06/28/21 06/28/21 History mg tablet (Percocet) pramipexole 0.5 mg tablet 0.5 mg PO BEDTIME 06/28/21 06/28/21 History torsemide 20 mg tablet 20 mg PO DAILY PRN 06/28/21 06/28/21 History Allergies Allergy/AdvReac Type Severity Reaction Status Date / Time hydroxychloroquine Allergy Unknown Verified 06/28/21 10:10 [HYDROXYCHLOROQUINE] promethazine [From Phenergan] Allergy Agitated Verified 06/28/21 10:10 cefepime AdvReac Severe pruritis Verified 06/28/21 10:10 Review of Systems Review of Systems Narrative: 10 point review of systems is negative except as above Exam Vital Signs (past 8 hours): - 06/28/21 10:30 06/28/21 10:40 06/28/21 10:45 Temperature 100.0 F H 100.4 F H 100.4 F H Pulse Rate 91 H 92 H 92 H Respiratory Rate 21 21 21 Blood Pressure 148/75 H 156/74 H Pulse Oximetry 97 96 99 06/28/21 10:50 06/28/21 11:00 06/28/21 11:10 Temperature 100.4 F H 100.4 F H 100.4 F H Pulse Rate 92 H 92 H 91 H Respiratory Rate 19 22 18 Blood Pressure 157/77 H 153/74 H 149/74 H Pulse Oximetry 100 100 100 06/28/21 11:15 06/28/21 11:21 06/28/21 11:30 Temperature 100.4 F H 100.4 F H 100.2 F H Pulse Rate 91 H 91 H 91 H Respiratory Rate 20 20 19 Blood Pressure 168/88 H 140/68 Pulse Oximetry 100 98 97 06/28/21 11:40 06/28/21 11:45 06/28/21 11:50 Temperature 100.2 F H 100.2 F H 100.2 F H Pulse Rate 92 H 91 H 90 Respiratory Rate 25 H 22 20 Blood Pressure 136/67 143/72 H Pulse Oximetry 98 97 96 06/28/21 12:00 06/28/21 12:30 06/28/21 12:33 Temperature 100.2 F H 98.8 F 98.5 F Pulse Rate 90 87 Respiratory Rate 19 18 Blood Pressure 144/69 H 106/54 L Pulse Oximetry 95 97 06/28/21 16:30 Temperature 98.4 F Pulse Rate 85 Respiratory Rate 18 Blood Pressure 115/58 L Pulse Oximetry 96 Oxygen Delivery Method Nasal Cannula Oxygen Flow Rate 0 Narrative Exam Narrative: Pleasant female lying in bed somewhat uncomfortable Const Other: HEENT: Normocephalic atraumatic Resp Other: Lungs: Decreased breath sounds, scattered rhonchi bilaterally Cardio Other: Cardiac exam: Regular rate and rhythm normal S1-S2 GI Other: Abdomen: Soft, nontender nondistended Other: No Shay in place Skin Other: Bilateral lower extremities with erythema, and warmth, there is pitting edema as well. The right lower extremity reveals an open excoriated area with skin breakdown, there is weeping of the wound Extrem Other: 2+ edema, +as described above Psych Other: Patient is awake and appropriate, no agitation delirium delusions or hallucinations Objective Labs Result Diagrams: 06/28/21 10:15 06/28/21 10:15 Labs: Laboratory Results - last 24 hr 06/28/21 06/28/21 06/28/21 09:51 09:55 10:15 WBC 10.5 RBC 3.75 L Hgb 11.0 L Hct 33.0 L MCV 88.0 MCH 29.4 MCHC 33.4 RDW 18.9 H Plt Count 282 Neut % (Auto) 79.7 H Lymph % (Auto) 12.9 L Elliott % (Auto) 7.0 Eos % (Auto) 0.0 L Baso % (Auto) 0.4 Neut # (Auto) 8400 H Lymph # (Auto) 1400 Elliott # (Auto) 700 Eos # (Auto) 0 Baso # (Auto) 0 PT INR APTT ABG pH 7.47 H ABG pCO2 40.3 ABG pO2 76 L ABG HCO3 29 H ABG Total CO2 30 ABG O2 Saturation 98 ABG Base Excess 5.0 H FiO2 28 Sodium Potassium Chloride Carbon Dioxide BUN Creatinine Estimated GFR BUN/Creatinine Ratio Glucose Lactate Calcium Magnesium Total Bilirubin AST ALT Alkaline Phosphatase Total Creatine Kinase CK-MB (CK-2) CK-MB (CK-2) Rel Index Troponin I NT-Pro-B Natriuret Pep Total Protein Albumin Globulin Albumin/Globulin Ratio Procalcitonin Urine Color Urine Appearance Urine pH Ur Specific [place] Urine Protein Urine Glucose (UA) Urine Ketones Urine Occult Blood Urine Nitrate Urine Bilirubin Urine Urobilinogen Ur Leukocyte Esterase Urine RBC Urine WBC Urine Bacteria Ur Culture Indicated? SARS-CoV-2 (PCR) Negative 06/28/21 06/28/21 06/28/21 10:15 10:15 10:15 WBC RBC Hgb Hct MCV MCH MCHC RDW Plt Count Neut % (Auto) Lymph % (Auto) Elliott % (Auto) Eos % (Auto) Baso % (Auto) Neut # (Auto) Lymph # (Auto) Elliott # (Auto) Eos # (Auto) Baso # (Auto) PT 14.2 H INR 1.3 APTT 32 ABG pH ABG pCO2 ABG pO2 ABG HCO3 ABG Total CO2 ABG O2 Saturation ABG Base Excess FiO2 Sodium Potassium Chloride Carbon Dioxide BUN Creatinine Estimated GFR BUN/Creatinine Ratio Glucose Lactate 1.3 Calcium Magnesium 1.9 Total Bilirubin AST ALT Alkaline Phosphatase Total Creatine Kinase 81 CK-MB (CK-2) TNP CK-MB (CK-2) Rel Index TNP Troponin I < 0.012 NT-Pro-B Natriuret Pep 469 H Total Protein Albumin Globulin Albumin/Globulin Ratio Procalcitonin Urine Color Urine Appearance Urine pH Ur Specific [place] Urine Protein Urine Glucose (UA) Urine Ketones Urine Occult Blood Urine Nitrate Urine Bilirubin Urine Urobilinogen Ur Leukocyte Esterase Urine RBC Urine WBC Urine Bacteria Ur Culture Indicated? SARS-CoV-2 (PCR) 06/28/21 06/28/21 06/28/21 10:15 10:15 10:15 WBC RBC Hgb Hct MCV MCH MCHC RDW Plt Count Neut % (Auto) Lymph % (Auto) Elliott % (Auto) Eos % (Auto) Baso % (Auto) Neut # (Auto) Lymph # (Auto) Elliott # (Auto) Eos # (Auto) Baso # (Auto) PT INR APTT ABG pH ABG pCO2 ABG pO2 ABG HCO3 ABG Total CO2 ABG O2 Saturation ABG Base Excess FiO2 Sodium 135 L Potassium 3.8 Chloride 98 Carbon Dioxide 31 BUN 30 H Creatinine 1.05 H Estimated GFR 51.4 L BUN/Creatinine Ratio 28.6 H Glucose 165 H Lactate Cancelled Calcium 9.1 Magnesium Total Bilirubin 0.8 AST 23 ALT 15 Alkaline Phosphatase 70 Total Creatine Kinase CK-MB (CK-2) CK-MB (CK-2) Rel Index Troponin I NT-Pro-B Natriuret Pep Total Protein 6.9 Albumin 3.5 Globulin 3.4 Albumin/Globulin Ratio 1.0 Procalcitonin 0.11 Urine Color Urine Appearance Urine pH Ur Specific [place] Urine Protein Urine Glucose (UA) Urine Ketones Urine Occult Blood Urine Nitrate Urine Bilirubin Urine Urobilinogen Ur Leukocyte Esterase Urine RBC Urine WBC Urine Bacteria Ur Culture Indicated? SARS-CoV-2 (PCR) 06/28/21 10:15 WBC RBC Hgb Hct MCV MCH MCHC RDW Plt Count Neut % (Auto) Lymph % (Auto) Elliott % (Auto) Eos % (Auto) Baso % (Auto) Neut # (Auto) Lymph # (Auto) Elliott # (Auto) Eos # (Auto) Baso # (Auto) PT INR APTT ABG pH ABG pCO2 ABG pO2 ABG HCO3 ABG Total CO2 ABG O2 Saturation ABG Base Excess FiO2 Sodium Potassium Chloride Carbon Dioxide BUN Creatinine Estimated GFR BUN/Creatinine Ratio Glucose Lactate Calcium Magnesium Total Bilirubin AST ALT Alkaline Phosphatase Total Creatine Kinase CK-MB (CK-2) CK-MB (CK-2) Rel Index Troponin I NT-Pro-B Natriuret Pep Total Protein Albumin Globulin Albumin/Globulin Ratio Procalcitonin Urine Color Yellow Urine Appearance Clear Urine pH 7.0 Ur Specific [place] 1.010 Urine Protein Negative Urine Glucose (UA) Trace H Urine Ketones Trace H Urine Occult Blood Negative Urine Nitrate Negative Urine Bilirubin Negative Urine Urobilinogen 0.2 Ur Leukocyte Esterase Negative Urine RBC None seen Urine WBC 5-10/hpf H Urine Bacteria None seen Ur Culture Indicated? Specimen cultured SARS-CoV-2 (PCR) Assessment & Plan Assessment & Plan narrative: 71-year-old female with a history of right-sided pulmonary embolus, DVT, history of bronchiectasis, hypertension, type 2 diabetes, hypothyroidism, and morbid obesity admitted to the hospital with fever cough and hypoxia * Patient with a known history of common variable immune deficiency. She has recurrent bronchiectasis as well. Patient has had low-grade fever hypoxia and productive cough. Chest x-ray is negative. Suspect underlying bronchitis/bronchiectasis * Acute hypoxic respiratory failure, likely related to underlying acute pulmonary infection * Will obtain sputum culture * Will continue levofloxacin for antibiotic * Will continue her usual Ventolin/Spiriva/DuoNeb inhalers * Oxygen as needed * Will defer steroids at this time Bilateral lower extremity erythema, with weeping and ulceration of the right leg * Patient appears to have chronic venous stasis ulceration * She needs wound care, will discuss dressing and wraps for her lower extremity * Continue to elevate * Will continue to monitor erythema and swelling as above * Will continue daily Lasix as well * Continue spironolactone Recent diagnosis of pulmonary embolus/DVT * Continue Eliquis * Doubt Eliquis failure, but will continue to monitor her closely * Oxygen as needed Type 2 diabetes * Will continue her usual home insulin regimen * Will add a sliding scale as well Hypertension * Will continue clonidine, losartan Hyperlipidemia * Continue statin Chronic pain * Patient is on a bupropion or friend transdermal patch * Will continue her usual pain regimen at home, this includes a patch plus as needed oxycodone * Will continue duloxetine * Will continue Lyrica * Will continue nortriptyline Common variable immunodeficiency Will continue her baseline prednisone, 5 mg daily Morbid obesity, this is likely contributing to her venous stasis insufficiency, and her overall clinical condition * Dietary consultation * PT consultation for mobility The patient's durable car of divorce attorney is her Harjeet Zavaleta, she indicates she would like to be full code will note that her record accordingly Patient will be admitted as an inpatient I have utilized all available methods to review update confirm the patient's current medications Time Spent With Patient Critical Care time: I spent a total of [] minutes of critical care time on this patient's care today; this time is exclusive of procedural time. Quality VTE Deep Vein Thrombosis/Pulmonary Embolism Present on Admission: No
--- NOTE | 2021-06-28 18:38 | PC.NURSE ---
Pt alert and oriented, attentive at bedside. Updated med list given to Dr. Fan. Pt settled to room. Pt familiar with hospital and room. Pt settled to comfort. wrapped in warm blankets. Feet wrapped with warm blankets. legs left uncovered. right le weeping somewhat. LLE dry and red. Pt uses CPAP at night. helping set it up.
[2021-06-28] MEDS: BUDESONIDE 0.5 MG/2 ML NEB INH (19:07)
[2021-06-28] MEDS: ALBUTEROL/IPRATROPIUM 3 ML AMPUL INH (19:08)
[2021-06-28] MEDS: NORTRIPTYLINE HCL 25 MG CAPSULE PO (20:41)
[2021-06-28] MEDS: FLUTICASONE 120 SPRAY/16 GM SPRAY.SUSP NASAL (20:41)
[2021-06-28] MEDS: ATORVASTATIN 20 MG TABLET 40 MG PO (20:42)
[2021-06-28] MEDS: PRAMIPEXOLE 0.25 MG TABLET 0.5 MG PO (20:42)
[2021-06-28] MEDS: PREGABALIN 50 MG CAPSULE 200 MG PO (20:42)
[2021-06-28] MEDS: guaiFENesin ER 600 MG TAB 1200 MG PO (20:45)
[2021-06-28] MEDS: MONTELUKAST 10 MG TABLET PO (20:46)
[2021-06-28] MEDS: APIXABAN 5 MG TABLET PO (20:46)
[2021-06-28 20:51] LABS: Hemoglobin A1C% w Est Avg Glu 7.6 % (4.0-6.0)
[2021-06-28] MEDS: cloNIDine 0.1 MG TABLET PO (20:59)
[2021-06-28] MEDS: PANTOPRAZOLE DR 40 MG TABLET PO (21:06)
[2021-06-29] VITALS (11 sets, daily range): BP systolic 103–147; BP diastolic 38–71; PULSE 86–94; RESP 18–23; TEMP 36.6–37.3; O2SAT 92–96
[2021-06-29 06:35] LABS: Add Manual Diff / Slide Review NO; Basophils Absolute Auto 0 /uL (0-100); Basophils Percent Auto 0.2 % (0-2); Eosinophils Absolute Auto 0 /uL (0-450); Hematocrit 33.9 % (36-46); Lymphocytes Absolute Auto 1200 /uL (1100-4500); Lymphocytes Percent Auto 12.2 % (25-40); Mean Corpuscular HGB Conc 32.6 % (30-36); Mean Corpuscular Hemoglobin 28.8 PG (26-34); Mean Corpuscular Volume 88.3 fL (80-100); Monocytes Absolute Auto 800 /uL (0-900); Monocytes Percent Auto 8.5 % (3-14); Neutrophils Absolute Auto 7900 /uL (1500-7000); Neutrophils Percent Auto 79.1 % (50-75); Platelet Count 279 X10^3/uL (150-400); Red Blood Cell Count 3.84 X10^6/uL (4.0-5.2); Red Cell Distribution Width 18.8 % (11.6-14.8); White Blood Cell Count 9.9 X10^3/uL (4.5-11.0)
[2021-06-29] MEDS: LEVOTHYROXINE 75 MCG TABLET PO (06:45)
[2021-06-29] MEDS: PANTOPRAZOLE DR 40 MG TABLET PO ×2 (06:45→22:15)
[2021-06-29] MEDS: ACETAMINOPHEN 325 MG TABLET 650 MG PO ×3 (06:45→17:37)
[2021-06-29 06:46] LABS: BUN Creatinine Ratio 20.2 (6-22); Blood Urea Nitrogen 19 mg/dL (7-17); Carbon Dioxide 27 mmol/L (22-32); Chloride 100 mmol/L (98-107); Estimated Glomerular Filt Rate 58.4 mL/min (>60); Glucose 150 mg/dL (80-110); HEMOLYSIS < 15 (0-50); Potassium 4.3 mmol/L (3.4-5.1); Sodium 134 mmol/L (137-145)
[2021-06-29] MEDS: OXYCODONE IR 10 MG TABLET PO ×3 (07:26→22:15)
[2021-06-29] MEDS: FLUTICASONE 120 SPRAY/16 GM SPRAY.SUSP NASAL ×2 (08:02→22:19)
[2021-06-29] MEDS: INSULIN GLARGINE 100 UNIT/ML 3ML PEN 30 UNIT SUBCUT (08:03)
[2021-06-29] MEDS: INSULIN LISPRO 100 UNIT/ML 3ML VIAL SUBCUT ×4 (08:05→22:17)
[2021-06-29] MEDS: FUROSEMIDE 20 MG TABLET PO (08:15)
[2021-06-29] MEDS: FERROUS SULFATE 325 MG TABLET PO (08:15)
[2021-06-29] MEDS: CHOLECALCIFEROL (VITAMIN D3) 1,000 UNIT TABLET 2000 UNIT PO (08:15)
[2021-06-29] MEDS: SPIRONOLACTONE 25 MG TABLET 50 MG PO (08:16)
[2021-06-29] MEDS: LORATADINE 10 MG TABLET PO (08:16)
[2021-06-29] MEDS: LOSARTAN 50 MG TABLET PO (08:17)
[2021-06-29] MEDS: guaiFENesin ER 600 MG TAB 1200 MG PO ×2 (08:17→21:55)
[2021-06-29] MEDS: APIXABAN 5 MG TABLET PO ×2 (08:17→21:56)
[2021-06-29] MEDS: predniSONE 5 MG TABLET PO (08:17)
[2021-06-29] MEDS: DULOXETINE 30 MG CAPSULE PO (08:17)
[2021-06-29] MEDS: cloNIDine 0.1 MG TABLET PO ×2 (08:20→21:57)
[2021-06-29] MEDS: PREGABALIN 50 MG CAPSULE 200 MG PO ×2 (08:34→21:56)
[2021-06-29] MEDS: IPRATROPIUM 0.5 MG/2.5 ML NEB INH ×2 (10:24→20:13)
[2021-06-29] MEDS: ALBUTEROL 2.5 MG/3 ML NEB (ADULT) INH ×2 (10:24→20:13)
[2021-06-29] MEDS: BUDESONIDE 0.5 MG/2 ML NEB INH ×2 (10:24→20:14)
--- NOTE | 2021-06-29 11:05 | PT.IIE ---
Current Diagnoses Venous insufficiency (chronic) (peripheral) (06/28/21) Surgical History (Last Reviewed 06/28/21 @ 09:50 by Lalitha Gracia DO) Anesthesia Medical History (Last Reviewed 06/28/21 @ 18:31 by Radha Fan MD) Abnormal chest xray (~1979) Anemia Ankle pain Asthma (~1959) Bronchiectasis (~2006) Cervical spine disease Chronic back pain Colon polyps (~2015) Degenerative joint disease of spine (~2001) Diabetes mellitus, type II (~2009) Eczema Fibromyalgia Foot pain Hoarseness Hyperlipidemia Hypertension Hypothyroidism Migraines (~1964) 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 Osteopenia Pneumonia Pneumonia Recurrent sinusitis (~1970) Restless leg syndrome Shoulder pain (~03/2018) Sleep apnea Wears glasses Physical Therapy Inpatient Evaluation/Re-Eval M1 PT/OT-IP Prior Functional Status Start: 06/29/21 13:10 Freq: NEEDED Status: Active Protocol: Document 06/29/21 11:05 AB (Rec: 06/29/21 13:32 AB [email or web address]) Medical Review Prior Functional Status Medical History Reviewed Yes Communication able to make needs known Mobility and Gait pt stated that she is modified independent with all mobilities and ambulation with SPC but occasionally ses a FWW Social History Household Members spouse Living Arrangements House Number of Floors (Floors) One Floor Number of Stairs To Enter/Railing? 2 steps without rails from the garage with bilateral handle/ grab bars on the edge of the door Home Environment High Toilet,Walk in Shower Home Equipment Front Wheel Walker,Straight Cane,Hand Held Shower,Grab Bars Near Toilet,Grab Bars In Shower Additional Social History Comment pt has an adjustable bed M2 PT-IP Current Condition Start: 06/29/21 13:10 Freq: NEEDED Status: Active Protocol: Document 06/29/21 11:05 AB (Rec: 06/29/21 13:32 AB [email or web address]) Physical Therapy Current Condition Current Condition Evaluation Date 06/29/21 Treatment Diagnosis BLE cellulitis; difficulty in walking Onset Date 06/28/21 M3 PT-IP Subjective Start: 06/29/21 13:10 Freq: NEEDED Status: Active Protocol: Document 06/29/21 11:05 AB (Rec: 06/29/21 13:32 AB [email or web address]) Subjective Physical Therapy Visit Type Type Initial Evaluation Visit Start Time 11:05 Visit Stop Time 12:41 Total Visit Minutes 61 Notes pt seen for split visits: 1105 to 1140 am and 1215 to 1241 pm Number of VIDEO EDITING INTERN Visits 0 Physical Therapy Visit Comments Patient Comments agreeable to do PT Therapy Pain Assessment Pain When Pain Assessed At Rest Pain Present Pain Present Pain Reported Location Left Lower Leg Intensity 6 Scale Used Numeric (0 - 10) Pain Management Techniques Distraction,Modification of Treatment,Re-positioning, Timing of Activity with Medications Right Lower Leg Intensity 4 Scale Used Numeric (0 - 10) Pain Management Techniques Distraction,Modification of Treatment,Re-positioning, Timing of Activity with Medications M4 PT-IP Mobility and Gait Start: 06/29/21 13:10 Freq: NEEDED Status: Active Protocol: Document 06/29/21 11:05 AB (Rec: 06/29/21 13:32 [email or web address]) PT-Bed Mobility Assessment Supine to Sit Supine to Sit Moderate Assistance,1 Person Assistance,Head of Bed Elevated PT-Transfer Assessment Sit to and From Stand Sit to and from Stand Contact Guard Assistance, Minimal Assistance,1 Person Assistance,Use of Upper Extremities Equipment Transfer Assistive Device Gait Belt,Front Wheeled Walker Orthotic/Prosthetic Devices or Brace: No Comments Mobility Comments completed supine to sit mod a and cues. requiring mod A for initial sitting balance but able to maintain sitting SBA after repositioning. O2 sat varies: 84-92% with 2L/min O2. Dr. Fan came in and consulted with pt. Left pt with the doctor. checked back on pt and pt sitting on the chair. pt agreed to do PT. pt at room air. O2 sat : 92-94% but decreases to 88% when pt talks . Nurse stated that pt can be on 2L/min O2 if needed. pt presents lateral side lean to the R. (+) R knee crepitus with ROM. pt completed sit to stand from chair CGA to min A and ambulated ~ 15 ft to EOB CGA to min A. O2 sat checked at room air: 81-83%. cued for deep breathing. nuse aware. O2 provided. pt completed sit to stand from EOB CGA to min A and ambulated to the chair ~ 15 ft CGA to min A . O2 sat after ambulation with 1L/min O2 : 88%. cued pt for deep breathing. positioned pt on chair. call light and table placed within reach. informed nurse regarding O2 sat. Gait Assessment Gait Gait Assistance Required: Contact Guard Assist,Minimum Assistance Distance (Feet) 15 Able to Maintain Weight Bearing Status Yes During Gait Assistive Devices Assistive Device Gait Belt,Front Wheeled Walker Orthotic/Prosthetic Devices or Brace: No Gait Deviations General Gait Pattern Decreased Stride Length,Step- to Gait Factors Limiting Gait Function Factors Limiting Gait Function Decreased Activity Tolerance, Decreased Strength,Limited Range of Motion,Pain,Poor Balance,Poor Safety Awareness, Respiratory Distress PT-Balance Assessment Sitting Balance and Reactions Static Sitting Balance Ability Good Dynamic Sitting Balance Ability Good Standing Balance and Reactions Static Standing Balance Ability Fair Dynamic Standing Balance Ability Fair Device Used FWW M5 PT-IP Objective Assessments Start: 06/29/21 13:10 Freq: NEEDED Status: Active Protocol: Document 06/29/21 11:05 AB (Rec: 06/29/21 13:32 AB [email or web address]) Orientation Orientation/Cognition Level of Alertness Alert Orientation Name,Place,Situation Language Function Ability No Deficits Noted Safety Awareness Decreased Safety Awareness Memory Description Short Term Impaired Gross Range of Motion Lower Extremity ROM Assessment Within Functional Limits Strength Lower Extremity Strength Assessment Bilaterally Impaired Comments Strength Comments RLE: 3+/5 LLE: 4-/5 Muscle Tone Muscle Tone WNL Yes M6 PT-IP Treatment Start: 06/29/21 13:10 Freq: NEEDED Status: Active Protocol: Document 06/29/21 11:05 AB (Rec: 06/29/21 13:32 AB [email or web address]) Physical Therapy Treatment Education Education Provided Precautions,Weight Bearing Status,Post-Op Packet,Safety M7 PT-IP Assessment and Plan Start: 06/29/21 13:10 Freq: NEEDED Status: Active Protocol: Document 06/29/21 11:05 AB (Rec: 06/29/21 13:32 AB [email or web address]) PT Summary Assessment and Plan Potential Rehabilitation Potential Fair Summary Impairments Pain,ROM,Strength,Balance, Coordination,Sensation,Tone, Cognition,Bed Mobility, Transfers,Gait,Activity Tolerance Assessment Summary pt requiring CGA to min A with moibilty and has decrease O2 sat with mobility affecting independence. Pt. has her spouse to assist her at home. will conduct caregiver training when appropriate and also stair climbing training. Pt also will need HHPT to improve strength and mobility. Goals Bed Mobility Goal Independent Transfer Goal Independent,Front Wheeled Walker Gait Goal Independent,Front Wheel Walker Gait Distance 150 Other Goals improve ambulation using SPC 150 ft mod I up/down 2 steps SPC/HEALTH SAFETY SPECIALIST min A and cues Days to Meet Goals 10 Frequency of Treatment Frequency Of Treatment Once a Day Treatment Plan Physical Therapy Treatment Plan Bed Mobility Training,Transfer Training,Gait Training, Therapeutic Exercise,Balance Retraining,Discharge Planning, Hot or Cold Pack,Neuromuscular Re-ed,Coordination Retraining ,Manual Therapy Precautions Other Precautions O2 sat Recommendations To Nursing Amount of Assist Needed 1 Person Assist Discharge Recommendations PT Discharge Recommendations Home with 06/11 Assist Available,Home Health Transportation Needs at Discharge Private Vehicle,Wheelchair/ Cabulance
[2021-06-29] MEDS: levoFLOXacin 750 MG/150 ML PIGGYBACK 100 MG IV (11:24)
[2021-06-29] MEDS: predniSONE 20 MG TABLET 40 MG PO (12:11)
--- NOTE | 2021-06-29 13:53 | PC.NURSE ---
pt's legs are pink and left calf has some blistering with minimal clear fluid discharge, right ayala has one open area that has mostly dry clear discharge and small red area, RN covered open area with non stick gauze and wrap. Pt states that she usually sees wound care in [facility] when she had this in the past. pt sitting comfortably in chair
--- NOTE | 2021-06-29 14:20 | P.PN_ITS ---
Subjective Subjective Date Patient Seen: 06/29/21 Interval history: Patient was admitted to the hospital for bilateral cellulitis, however she does have known bronchiectasis. She has had a fever, cough, and shortness of breath. She has been hypoxic. She remains hypoxic and desaturates to 88-90% on room air. Her cough has improved somewhat. She has improvement of the lower extremity edema, however she still has some erythema of the left leg with weeping of the right leg Exam Vital Signs (past 8 hours): - 06/29/21 07:30 06/29/21 08:17 06/29/21 08:20 Temperature 99.1 F Pulse Rate 92 H 90 90 Respiratory Rate 20 Blood Pressure 120/58 L 125/70 120/58 L Pulse Oximetry 96 06/29/21 10:25 06/29/21 11:00 Temperature 98.4 F Pulse Rate 86 Respiratory Rate 21 Blood Pressure 103/38 L Pulse Oximetry 93 93 Oxygen Delivery Method Nasal Cannula Oxygen Flow Rate 5 Narrative Exam Narrative: Pleasant female sitting in a chair in no obvious distress Resp Other: Lungs: Decreased breath sounds with scattered rhonchi bilaterally Cardio Other: Cardiac exam: Regular rate rhythm normal S1-S2 GI Other: Abdomen: Soft and nontender Extrem Other: Extremity right lower extremity with weeping, yellowish serous drainage Left lower extremity with erythema, decreased edema Objective Labs Result Diagrams: 06/29/21 06:10 06/29/21 06:10 Labs: Laboratory Results - last 24 hr 06/28/21 06/29/21 06/29/21 10:15 06:10 06:10 WBC 9.9 RBC 3.84 L Hgb 11.0 L Hct 33.9 L MCV 88.3 MCH 28.8 MCHC 32.6 RDW 18.8 H Plt Count 279 Neut % (Auto) 79.1 H Lymph % (Auto) 12.2 L Meigs % (Auto) 8.5 Eos % (Auto) 0.0 L Baso % (Auto) 0.2 Neut # (Auto) 7900 H Lymph # (Auto) 1200 Meigs # (Auto) 800 Eos # (Auto) 0 Baso # (Auto) 0 Sodium 134 L Potassium 4.3 Chloride 100 Carbon Dioxide 27 BUN 19 H Creatinine 0.94 Estimated GFR 58.4 L BUN/Creatinine Ratio 20.2 Glucose 150 H Hemoglobin A1c 7.6 H Calcium 9.0 PFSH Medical History Abnormal chest xray (~1979) Anemia Ankle pain Asthma (~1959) Bronchiectasis (~2006) Cervical spine disease Chronic back pain Colon polyps (~2015) Degenerative joint disease of spine (~2001) Diabetes mellitus, type II (~2009) Eczema Fibromyalgia Foot pain Hoarseness Hyperlipidemia Hypertension Hypothyroidism Migraines (~1964) 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 Osteopenia Pneumonia Pneumonia Recurrent sinusitis (~1970) Restless leg syndrome Shoulder pain (~03/2018) Sleep apnea Wears glasses Surgical History Anesthesia History of carpal tunnel release History of cataract removal with insertion of prosthetic lens (~2014) History of section History of laminectomy (~2002) History of spinal fusion (~2012) History of thumb surgery Family History Father Stroke Mother Hypertension Brother Cerebral aneurysm Prostate cancer Diabetes mellitus Hypertension Stroke Brother Arthritis Hyperlipidemia Hypertension Sister History of kidney cancer Hypertension Grandfather Cancer Grandmother Cancer Other Family history non-contributory Social History household members: spouse Smoking Status: Never smoker alcohol intake: current Assessment & Plan Assessment & Plan narrative: 71-year-old female with a history of right-sided pulmonary embolus, DVT, history of bronchiectasis, hypertension, type 2 diabetes, hypothyroidism, and morbid obesity admitted to the hospital with fever cough and hypoxia * Patient with a known history of common variable immune deficiency.? She has recurrent bronchiectasis as well.? Patient has had low-grade fever hypoxia and productive cough.? Chest x-ray is negative.? Suspect underlying bronchitis/bronchiectasis * Acute hypoxic respiratory failure, likely related to underlying acute pulmonary infection * Will obtain sputum culture * Will continue levofloxacin for antibiotic * Will continue her usual Ventolin/Spiriva/DuoNeb inhalers * Oxygen as needed * given persistant hypoxia, we start prednisone 40 mg daily for 5 days Bilateral lower extremity erythema, with weeping and ulceration of the right leg * Patient appears to have chronic venous stasis ulceration * She needs wound care, will discuss dressing and wraps for her lower extremity * Continue to elevate * Will continue to monitor erythema and swelling as above * Will continue daily Lasix as well * Continue spironolactone Recent diagnosis of pulmonary embolus/DVT * Continue Eliquis * Doubt Eliquis failure, but will continue to monitor her closely * Oxygen as needed Type 2 diabetes * Will continue her usual home insulin regimen * Will add a sliding scale as well * hemoglobin A1c 7.6 , indicating suboptimal control Hypertension * Will continue clonidine, losartan Hyperlipidemia * Continue statin Chronic pain * Patient is on a buproprenorphine transdermal patch * Will continue her usual pain regimen at home, this includes a patch plus as needed oxycodone * Will continue duloxetine * Will continue Lyrica * Will continue nortriptyline Common variable immunodeficiency Will continue her prednisone, 40 daily for 5 days then usual dose Morbid obesity, this is likely contributing to her venous stasis insufficiency, and her overall clinical condition * Dietary consultation * PT consultation for mobility * Time Spent With Patient Critical Care time: I spent a total of [] minutes of critical care time on this patient's care today; this time is exclusive of procedural time. Quality VTE Deep Vein Thrombosis/Pulmonary Embolism Present on Admission: No
--- NOTE | 2021-06-29 15:32 | CM.IDA ---
Initial DCP Assessment Note Pt is a 71 yo female, resident of [place] Assessment & Plan narrative: 71-year-old female with a history of right-sided pulmonary embolus, DVT, history of bronchiectasis, hypertension, type 2 diabetes, hypothyroidism, and morbid obesity admitted to the hospital with fever cough and hypoxia PCP: Karin Porter Payer: David [facility] Reviewed chart, patient familiar to this CM team from prior hospitalizations. Patient discussed in multidisciplinary rounds; Dr Fan requesting wound care consult for assist in managing patient's chronic venous stasis ulceration of the right leg Met w/patient's spouse Lucas today, introduced role. Patient is mostly indp at baseline; patient does have multiple co-morbidities which tend to decrease patient's tolerance to activity. Patient has hx w/[facility] for IV abx and currently has her IVIG infusions monthly by [facility]. Patient currently has her wound care in [place] because her Security Officer is located in [facility] Patient and spouse expect to return home upon DC; spouse Lucas is a retired Orthopedic PA-C, supportive and available to assist patient as needed No needs expected from DC planning team although will remain available in case this changes before DC. MACKENZIE Dominguez Discharge Planning/Care Management CM Discharge Assessment Start: 06/29/21 15:21 Freq: Status: Active Protocol: Document 06/29/21 15:21 BEN (Rec: 06/29/21 15:32 BEN [id number]) Discharge Planning Assessment Assigned [employer] MACKENZIE Heath DPOA/Assigned Designee Name Harjeet Riverach Contact Information [phone], home , cell Advance Directives? Yes Advance Directives on File No History Provided By Patient,Significant Other, Medical Record Prior Living Arrangements House Household Members spouse Type of transporation used prior to Relies on Others admit Independent with ADL's No: Poor activity tolerance Mod Indp. Is patient alert and oriented? Yes Needs Assistance With Managing Medications,Home Chores / Shopping Caregiver for Another No Community Services used prior to Oxygen Therapy,IV Therapy admission: Comment Patient no longer has home IV abx, current IVIG monthly Barriers to Discharge No Comment medically and physically fragile. return home w/spouse, who is a retired Orthopedic PA-C Discharge Plan Home Transportation Arrangement Spouse bedside and can provide transport home when stable Referrals Initiated None needed Additional Comment Pending PT/OT eval, r/o need or request for HH services Medicare Choice List Provided Yes SNF/HH Preference HH options Whiteboard Updated in Patient Room with Yes name and ext. # of [employer]
[2021-06-29] MEDS: PRAMIPEXOLE 0.25 MG TABLET 0.5 MG PO (21:55)
[2021-06-29] MEDS: ATORVASTATIN 20 MG TABLET 40 MG PO (21:56)
[2021-06-29] MEDS: NORTRIPTYLINE HCL 25 MG CAPSULE PO (21:56)
[2021-06-29] MEDS: MONTELUKAST 10 MG TABLET PO (21:57)
[2021-06-30] VITALS: BP 130/60; PULSE 79; RESP 18; TEMP 36.7; O2SAT 95
[2021-06-30] MEDS: ACETAMINOPHEN 325 MG TABLET 650 MG PO ×2 (00:05→06:28)
[2021-06-30 04:00] VITALS: BP 129/59; PULSE 81; RESP 18; TEMP 36.3; O2SAT 94
[2021-06-30] MEDS: LEVOTHYROXINE 75 MCG TABLET PO (06:33)
[2021-06-30 06:50] VITALS: RESP 22; O2SAT 94
[2021-06-30] MEDS: BUDESONIDE 0.5 MG/2 ML NEB INH (06:54)
[2021-06-30] MEDS: ALBUTEROL/IPRATROPIUM 3 ML AMPUL INH ×2 (06:54→10:52)
[2021-06-30] MEDS: PANTOPRAZOLE DR 40 MG TABLET PO (06:56)
--- NOTE | 2021-06-30 07:34 | PC.NURSE ---
a/o, voices needs. 1pa mobility and ADL assistance. sob w/ exertion. tolerated RA thru most of the evening. at NOC own cpap in place. LE's are red and warm to touch, RLE is wrapped w/ gauze, and saturated due to weeping edema. wrap removed, skin is noted to be macerated. and patient agreed to leave RLE open to air for a few hours and let it dry out. patient tolerated OOB to recliner chair for about 2 hours at HS. new wrap applied to RLE.
[2021-06-30 07:40] VITALS: BP 130/55; PULSE 80; RESP 20; TEMP 36.7; O2SAT 95
[2021-06-30] MEDS: INSULIN GLARGINE 100 UNIT/ML 3ML PEN 30 UNIT SUBCUT (08:15)
[2021-06-30] MEDS: INSULIN LISPRO 100 UNIT/ML 3ML VIAL SUBCUT ×2 (08:15→12:00)
[2021-06-30] MEDS: FLUTICASONE 120 SPRAY/16 GM SPRAY.SUSP NASAL (08:16)
[2021-06-30] MEDS: APIXABAN 5 MG TABLET PO (08:20)
[2021-06-30] MEDS: CHOLECALCIFEROL (VITAMIN D3) 1,000 UNIT TABLET 2000 UNIT PO (08:20)
[2021-06-30] MEDS: cloNIDine 0.1 MG TABLET PO (08:22)
[2021-06-30] MEDS: FERROUS SULFATE 325 MG TABLET PO (08:22)
[2021-06-30] MEDS: DULOXETINE 30 MG CAPSULE PO (08:22)
[2021-06-30] MEDS: FUROSEMIDE 20 MG TABLET PO (08:23)
[2021-06-30] MEDS: LORATADINE 10 MG TABLET PO (08:23)
[2021-06-30] MEDS: PREGABALIN 50 MG CAPSULE 200 MG PO (08:23)
[2021-06-30] MEDS: predniSONE 20 MG TABLET 40 MG PO (08:23)
[2021-06-30] MEDS: LOSARTAN 50 MG TABLET PO (08:23)
[2021-06-30] MEDS: guaiFENesin ER 600 MG TAB 1200 MG PO (08:23)
[2021-06-30] MEDS: SPIRONOLACTONE 25 MG TABLET 50 MG PO (08:23)
[2021-06-30] MEDS: OXYCODONE IR 10 MG TABLET PO (08:26)
[2021-06-30] MEDS: BUPRENORPHINE 15 MCG 15 EACH TOP (08:55)
--- NOTE | 2021-06-30 10:09 | PC.NURSE ---
Addendum entered by Korin Alberts R.N. 06/30/21 13:19: Patient was provided with multiple Mextra for future wound care. Addendum entered by Korin Alberts R.N. 06/30/21 13:18: Patient and given discharge instructions regarding f/u appointment with PCP, wound care, antibiotic therapy and medication changes. Patient verbalized understanding. Belongings gathered, including medications from pharmacy, CPAP and chargers. Patient denied belongings in safe. IV removed, patient tolerated. Patient discharged via wheelchair with aide assist. Original Note: Patient resting in bed this AM with bedside. A/O x 3, denies chest pain, SOB, dizziness or lightheadedness. Currently on RA, lungs tight, expiratory wheezing, rate regular, normal depth. LVM for RT to give treatment. Patient endorses back pain, pain patch due to be changed, placed on RUE, PRN oxy administered. Dressing changed on RLE, skin tight, 3+ edema, erythema, open lesion present, copious serosanguineous drainage, redressed with ABD secured with conform. Legs elevated. Noted 3+ pitting edema, erythema and warmth on LLE as well. Patient reports last BM 06/29, BT active x 4. Shay catheter removed per MD order. Patient tolerated. Call light in reach. PT in to work with patient. Will continue to monitor.
--- NOTE | 2021-06-30 10:12 | PM.DS.1 ---
History of Present Illness History of Present Illness Chief complaint: SpO2 88% on room air Narrative: The patient is a 71-year-old female with a history of common variable immunodeficiency, type 2 diabetes, asthma, chronic bronchiectasis, hypertension, hyperlipidemia, of pulmonary embolus and DVT in April 2019. Patient was discharged home on oxygen however she did not require the oxygen and they returned it. Over the past few days she has been feeling weak. She has also had a productive cough with green phlegm. She was noted to have a low-grade fever to 100.5. She has had bilateral lower extremity redness. They noted the redness was worse today. She has weeping from the right lower extremity. The patient has also been noted to be hypoxic. Her O2 sat was 88%. A.[facility]. EMS were called and the patient was brought to the hospital for further evaluation. Patient was found to have a white count of 10.5 in the emergency room, chest x-ray was negative for infiltrate, procalcitonin was normal. Patient was noted to have significant redness with weeping of the lower extremities. Initially was thought she had cellulitis of the left lower extremity. She was started on levofloxacin given her antibiotics allergies and was admitted to the hospital for further evaluation. Discharge Providers Provider Date of admission: 06/28/21 12:07 Discharge Date: 06/30/21 Primary care physician: Karin Porter MD Consults: 06/28/21 15:16 Consult to Physical Therapy Evaluate & Treat Comment: Physician Instructions: Evaluate and Treat 06/28/21 17:48 Consult to Dietitian, Adult Routine Comment: Reason For Exam: Diabetic 06/29/21 11:53 Consult to Dietitian, Adult Stat Comment: Reason For Exam: venous stasis ulcers Consult to Wound Care Routine Comment: Consulting Provider: Antonio- Wound Care Discharge provider: Radha Fan MD Summary Hospital Course Discharge Diagnosis: 1. Acute hypoxic respiratory failure, present on admission, improved 2. Acute bronchitis, chronic bronchiectasis 3. Chronic venous stasis changes, with a right lower extremity venous stasis ulcer 4. Asthma 5. Type 2 diabetes 6. Recent pulmonary emboli 7. Chronic pain 8. Hypothyroidism 9. Hypertension 10. GERD 11. Morbid Obesity Hospital Course: Patient was admitted to the hospital with fever, and hypoxia. She has known chronic bronchiectasis. Patient also reported sputum production with yellow green phlegm. She was placed on antibiotics for a pulmonary infection. Her chest x-ray was negative for pneumonia. She also had bilateral lower extremity erythema, she had weeping of the right lower extremity with a breakdown of an ulcer. She did ultimately have wound care to the lower extremities. The patient was placed on short course of steroids. Her breathing improved, her oxygenation improved. Patient was evaluated by physical therapy and had improvement in her functional status. He was deemed appropriate for discharge with arrangements made for discharge home. The patient will continue antibiotics for 1 week, will also continue a short course of steroids decreasing it rapidly given her hyperglycemia. In addition she will be referred to the wound care clinic here at [facility] for management of her chronic venous stasis insufficiency. Patient is no longer requiring oxygen and deemed appropriate for discharge home. Status at Discharge Cognitive/behavioral status at discharge: oriented Functional status at discharge: uses cane/walker Overall status at discharge: patient is progressing back to baseline Exam Vital Signs (past 8 hours): - 06/30/21 04:00 06/30/21 06:50 06/30/21 07:40 Temperature 97.4 F L 98.0 F Pulse Rate 81 80 Respiratory Rate 18 22 20 Blood Pressure 129/59 L 130/55 L Pulse Oximetry 94 94 95 Oxygen Delivery Method Room Air,CPAP Oxygen Flow Rate 0 Narrative Exam Narrative: Pleasant female sitting in bed in no obvious distress Resp Other: Lungs: Decreased breath sounds, coarse breath sounds at the bases bilaterally with prolonged end-expiratory phase Cardio Other: Cardiac exam: Regular rate and rhythm normal S1-S2 with a 2/6 systolic ejection murmur GI Other: Abdomen: Soft obese nontender nondistended Extrem Other: Bilateral erythema of the lower extremities, there is erythema with warmth on the left, there is an open ulcerated area on the right, wound Kerlix dressing in place Objective Labs Result Diagrams: 06/29/21 06:10 06/29/21 06:10 [facility] Medical History Abnormal chest xray (~1979) Anemia Ankle pain Asthma (~1959) Bronchiectasis (~2006) Cervical spine disease Chronic back pain Colon polyps (~2016) Degenerative joint disease of spine (~2001) Diabetes mellitus, type II (~2009) Eczema Fibromyalgia Foot pain Hoarseness Hyperlipidemia Hypertension Hypothyroidism Migraines (~1964) 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 Osteopenia Pneumonia Pneumonia Recurrent sinusitis (~1970) Restless leg syndrome Shoulder pain (~03/2018) Sleep apnea Wears glasses Surgical History Anesthesia History of carpal tunnel release History of cataract removal with insertion of prosthetic lens (~2014) History of section History of laminectomy (~2002) History of spinal fusion (~2012) History of thumb surgery Family History Father Stroke Mother Hypertension Brother Cerebral aneurysm Prostate cancer Diabetes mellitus Hypertension Stroke Brother Arthritis Hyperlipidemia Hypertension Sister History of kidney cancer Hypertension Grandfather Cancer Grandmother Cancer Other Family history non-contributory Social History household members: spouse Smoking Status: Never smoker alcohol intake: current Discharge Assessment & Plan Assessment and Plan Assessment: Acute hypoxic respiratory failure, present on admission, improved 2. Acute bronchitis, chronic bronchiectasis 3. Chronic venous stasis changes, with a right lower extremity venous stasis ulcer 4. Asthma 5. Type 2 diabetes 6. Recent pulmonary emboli 7. Chronic pain 8. Hypothyroidism 9. Hypertension 10. GERD 11. Morbid Obesity Plan of Treatment: discharge home Medications as prescribed F/u with PCP as scheduled Discharge Plan Discharge Plan Patient Disposition: Home Health Service Transfer to: [facility] Discharge orders & Medications Prescriptions: New prednisone 20 mg tablet 20 mg PO DAILY Qty: 3 0RF levofloxacin 750 mg tablet 750 mg PO Q24H Qty: 3 0RF Continued polyethylene glycol 3350 [Miralax] 119 GM powder 17 gm PO DAILY PRN (Reason: Constipation) Qty: 0 0RF ondansetron HCl [Zofran] 4 mg tablet 4 mg PO Q8H PRN (Reason: nausea and vomiting) Qty: 30 1RF clonidine HCl 0.1 mg tablet 0.1 mg PO BID Qty: 180 0RF Rx Instructions: PT WILL NEED TO BE SEEN BEFORE NEXT RENEWAL 08/05/20 losartan 50 mg tablet 50 mg PO DAILY Qty: 90 0RF Rx Instructions: PT WILL NEED TO BE SEEN BEFORE NEXT RENEWAL 08/05/20 metformin 1,000 mg tablet 1,000 mg PO BID Qty: 180 0RF Rx Instructions: PT DUE FOR APPT PRIOR TO END OF CURRENT RX. PLEASE CALL TO SCHEDULE APPT. THANKS 09/03/20 Privigen 10 % solution 45 gram IV Q3W 0RF ferrous sulfate 325 mg (65 mg iron) tablet 325 mg PO BEDTIME 0RF spironolactone 50 mg tablet 50 mg PO DAILY 0RF tizanidine 4 mg capsule 4 mg PO QID PRN (Reason: Muscle Spasm) 0RF cholecalciferol (vitamin D3) 2,000 unit tablet 2,000 unit PO DAILY 0RF albuterol sulfate 90 mcg/actuation HFA aerosol inhaler 2 puff INHALATION Q4-6H PRN (Reason: Shortness Of Breath) 0RF lansoprazole [Prevacid 24Hr] 15 mg Capsule,Delayed Release(Dr/Ec) 30 mg PO BID 0RF apixaban 5 mg (74 tabs) tablets,dose pack 5 mg PO BID Qty: 74 0RF sodium chloride 3 % Solution For Nebulization 3 ml INHALATION DIRECTED 0RF Rx Instructions: use w/ nebulizer 2 x daily montelukast [Singulair] 10 mg Tablet 10 mg PO BEDTIME 0RF Zyrtec 10 mg Capsule 10 mg PO DAILY 0RF pregabalin 200 mg Capsule 200 mg PO BID 0RF atorvastatin 40 mg Tablet 40 mg PO BEDTIME 0RF ipratropium-albuterol 0.5 mg-3 mg(2.5 mg base)/3 mL Solution For Nebulization 3 ml INHALATION BID 0RF levothyroxine 75 mcg Tablet 75 mcg PO QAM 0RF nortriptyline 25 mg Capsule 25 mg PO BEDTIME 0RF epinephrine [EpiPen] 0.3 mg/0.3 mL Auto-Injector 0.3 mg IM Q5-15M PRN (Reason: Allergic Reaction) 0RF Rx Instructions: do not exceed 3 doses per episode Spiriva with HandiHaler 18 mcg Capsule, W/Inhalation Device 1 cap INHALATION DAILY 0RF Rx Instructions: puncture 1 cap using device; one dose = 2 inhalations insulin glargine 100 unit/mL solution 35 unit SUBCUT DAILY 0RF furosemide [Lasix] 20 mg tablet 20 mg PO QAM 0RF insulin lispro [Humalog KwikPen Insulin] 100 unit/mL insulin pen 4 - 8 unit SUBCUT TID 0RF pramipexole 0.5 mg tablet 0.5 mg PO BEDTIME 0RF buprenorphine 15 mcg/hour Patch Weekly 1 patch TRANSDERMAL QWEEK 0RF Rx Instructions: change wednesdays fluticasone propion-salmeterol [Wixela Inhub] 500-50 mcg/dose Blister With Device 1 inh INHALATION BID 0RF duloxetine 30 mg Capsule,Delayed Release(Dr/Ec) 30 mg PO DAILY 0RF torsemide 20 mg Tablet 20 mg PO DAILY PRN (Reason: Edema) 0RF Rx Instructions: if not taking lasix oxycodone-acetaminophen [Percocet] 10-325 mg Tablet 1 tab PO Q6H PRN (Reason: Pain (Scale Score 4-6)) 0RF acyclovir 5 % Ointment 1 applic TOPICAL 6XD PRN (Reason: Outbreak) 0RF Mucinex 1,200 mg Tablet Extended Release 12hr 1,200 mg PO BID 0RF benralizumab 30 mg/mL Auto-Injector 30 mg SUBCUT Q8W 0RF Discontinued prednisone 10 mg tablet 5 mg PO DIRECTED 0RF No Action (DME) insulin syringe-needle U-100 [BD Insulin Syringe Ultra-Fine] 0.5 mL 31 gauge x 5/16 syringe See Rx Instructions .ROUTE .MEDSUPPLY Qty: 100 1RF Rx Instructions: Use once a day as directed (DME) verio reflect glucometer Qty: 1 0RF Rx Instructions: As directed Follow up/Referrals: Karin Porter MD [Primary Care Provider] - Diet/Activity/Treatments Diet: Carb-consistent/Diabetic and Low-sodium Skin/Wound/Dressing Care Report to your healthcare provider any signs of infection, such as:: chills, fever Discharge Data Primary Care Provider: Karin Porter Quality VTE Deep Vein Thrombosis/Pulmonary Embolism Present on Admission: No
--- NOTE | 2021-06-30 10:14 | PT.IPTN ---
Current Diagnoses Venous insufficiency (chronic) (peripheral) (06/28/21) Physical Therapy Treatment Note M2 PT-IP Current Condition Start: 06/29/21 13:10 Freq: NEEDED Status: Active Protocol: Document 06/29/21 11:05 AB (Rec: 06/29/21 13:32 AB [id number]) Physical Therapy Current Condition Current Condition Evaluation Date 06/29/21 Treatment Diagnosis BLE cellulitis; difficulty in walking Onset Date 06/28/21 M3 PT-IP Subjective Start: 06/29/21 13:10 Freq: NEEDED Status: Active Protocol: Document 06/30/21 09:50 KS (Rec: 06/30/21 11:53 KS [id number]) Subjective Physical Therapy Visit Type Type Treatment Note Visit Start Time 09:50 Visit Stop Time 10:14 Total Visit Minutes 24 Notes Spouse present Number of [employer]ER Visits 1 Physical Therapy Visit Comments Patient Comments agreeable to do PT M4 PT-IP Mobility and Gait Start: 06/29/21 13:10 Freq: NEEDED Status: Active Protocol: Document 06/30/21 09:50 KS (Rec: 06/30/21 11:53 KS [id number]) PT-Bed Mobility Assessment Supine to Sit Supine to Sit Standby Assistance,Head of Bed Elevated,Bedrails Sit to Supine Sit to Supine Standby Assistance,Head of Bed Elevated Scooting Scooting to Edge of Bed Standby Assistance PT-Transfer Assessment Sit to and From Stand Sit to and from Stand Contact Guard Assistance, Minimal Assistance,1 Person Assistance,Use of Upper Extremities Equipment Transfer Assistive Device Gait Belt,Front Wheeled Walker Orthotic/Prosthetic Devices or Brace: No Transfers Transfer Destination Chair Transfer Ability Level of Assist Contact Guard Assistance, Minimal Assistance,1 Person Assistance,Use of Upper Extremities Comments Mobility Comments Pt in bed upon arrival and agreeable to ambulation. SBA for sup<>sit w/ HOB raised and scooting EOB. Pts O2 91 upon sitting on RA. Pt sit<>stand w / FWW CGA to Min A and O2 90%, she ambulated ~15 ft and O2 dropped to 86-88%, but improved to 94% w/ cues for breathing. Pt ambulated additional 25 ft and O2 remained above 90% on RA. Pt returned to bed SBA. Refused stair training. Pts states he feels comfortable to take care of her at home. Gait Assessment Gait Gait Assistance Required: Contact Guard Assist,1 Person Assist Distance (Feet) 25 Able to Maintain Weight Bearing Status Yes During Gait Assistive Devices Assistive Device Gait Belt,Front Wheeled Walker Orthotic/Prosthetic Devices or Brace: No Gait Deviations General Gait Pattern Decreased Stride Length,Step- to Gait Factors Limiting Gait Function Factors Limiting Gait Function Decreased Activity Tolerance, Decreased Strength,Limited Range of Motion,Pain,Poor Balance,Poor Safety Awareness, Respiratory Distress Comments Gait Comments Pt limited in ambulation by low activity tolerance and SOB . Improved w/ rest break and cues for breathing in through nose. Stair Climbing Assessment Comments Stair Climbing Comments Refused - stated no need. PT-Balance Assessment Sitting Balance and Reactions Static Sitting Balance Ability Good Dynamic Sitting Balance Ability Good Standing Balance and Reactions Static Standing Balance Ability Good Dynamic Standing Balance Ability Fair Device Used FWW M5 PT-IP Objective Assessments Start: 06/29/21 13:10 Freq: NEEDED Status: Active Protocol: Document 06/29/21 11:05 AB (Rec: 06/29/21 13:32 AB [id number]) Orientation Orientation/Cognition Level of Alertness Alert Orientation Name,Place,Situation Language Function Ability No Deficits Noted Safety Awareness Decreased Safety Awareness Memory Description Short Term Impaired Gross Range of Motion Lower Extremity ROM Assessment Within Functional Limits Strength Lower Extremity Strength Assessment Bilaterally Impaired Comments Strength Comments RLE: 3+/5 LLE: 4-/5 Muscle Tone Muscle Tone WNL Yes M6 PT-IP Treatment Start: 06/29/21 13:10 Freq: NEEDED Status: Active Protocol: Document 06/30/21 09:50 KS (Rec: 06/30/21 11:53 KS [id number]) Physical Therapy Treatment Education Education Provided Precautions,Weight Bearing Status,Post-Op Packet,Safety M7 PT-IP Assessment and Plan Start: 06/29/21 13:10 Freq: NEEDED Status: Active Protocol: Document 06/30/21 09:50 KS (Rec: 06/30/21 11:53 KS [id number]) PT Summary Assessment and Plan Potential Rehabilitation Potential Fair Summary Impairments Pain,ROM,Strength,Balance, Coordination,Sensation,Tone, Cognition,Bed Mobility, Transfers,Gait,Activity Tolerance Assessment Summary Pt showed improvement w/ mobility but remains limited by low toelrance for activity and SOB. Able to ambulate ~40 ft total w/ 1x seated rest break and cues for breathing in through nose. Pt did desat to 86-88% briefly when ambulating, but quickly recovered to low 90s. Quick approach to fatigue. Pt would benefit from HHPt to improve strength and activity tolerance. 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
[2021-06-30 10:52] VITALS: PULSE 108; RESP 22; O2SAT 93
[2021-06-30 11:30] VITALS: BP 121/52; PULSE 87; RESP 18; TEMP 36.8; O2SAT 92
--- NOTE | 2021-06-30 11:46 | CM.DPNOTE ---
Faxed referral packet to [facility] per Leslie and received leila. Lizett Muller CM Assist.
--- NOTE | 2021-06-30 16:10 | CM.DPNOTE ---
DC Note Spoke w/Dr Fan RN Miroslava Langley ( Wound Care) and patient/spouse to coordinate following: Plan: DC home w/spouse, via pov, [facility] PT, tentative f/u at wound care clinic Patient and spouse to complete daily wound dressing changes, patient denies need for HH RN Provided MCR vendor choice list to patient, she choose [facility], kindly faxed referral- completed and signed F2F and HH order to [facility] According to Miroslava Goldberg, wound care: Patient will be charged a $250 deductible for her appt ([place])and Miroslava cannot schedule patient unless she has a pre auth from [place], initiated by patient's PCP Relayed all information to patient/spouse and explained that Miroslava was planning to call PCP Karin Porter to begin referral/auth request through [place] Patient instructed to call PCP and Wound care clinic to chk on progress. Patient/spouse appreciative JW
[2021-08-03 14:36] LABS: Oxygen Saturation ABG 96 % (95-100)
== END 2021-06-30 13:20 | disposition home health service (06) | DRG 190 ==
LOC: ED 11:49 → AC 12:55
PROVIDERS: Admitting Provider Internal Medicine; Emergency Provider Emergency Medicine; Family Provider Internal Medicine Infectious Disease; PCP Internal Medicine; Referring Provider Emergency Medicine; Visit Provider Internal Medicine
DX: J47.0 Bronchiectasis with acute lower respiratory infection (principal); J96.01 Acute respiratory failure with hypoxia; D83.9 Common variable immunodeficiency, unspecified; Z68.43 Body mass index [BMI] 50.0-59.9, adult; I87.331 Chronic venous hypertension (idiopathic) with ulcer and inflammation of right lower extremity; L03.116 Cellulitis of left lower limb; L03.115 Cellulitis of right lower limb; E66.01 Morbid (severe) obesity due to excess calories; I87.8 Other specified disorders of veins; E11.9 Type 2 diabetes mellitus without complications; I10 Essential (primary) hypertension; E78.5 Hyperlipidemia, unspecified; G89.29 Other chronic pain; J45.909 Unspecified asthma, uncomplicated; K21.9 Gastro-esophageal reflux disease without esophagitis; E03.9 Hypothyroidism, unspecified; G47.33 Obstructive sleep apnea (adult) (pediatric); Z86.711 Personal history of pulmonary embolism; Z20.822 Contact with and (suspected) exposure to COVID-19; Z79.4 Long term (current) use of insulin; Z79.01 Long term (current) use of anticoagulants; Z79.84 Long term (current) use of oral hypoglycemic drugs
CPT/HCPCS: 36415; 36600; 71045; 80048; 80053; 81001; 82550; 82805; 82962; 83036; 83605; 83735; 83880; 84145; 84484; 85025; 85610; 85730; 87040; 87086; 87635; 93005; 94618; 94640; 94760; 96365; 97116; 97162; 97530; 99285; C9803; G0378; J1815; J1956; J7613

== ENCOUNTER → 2021-10-07 14:44 | Outpatient (ROUT) | payer OTHER, SELFPAY ==
[2021-04-20 12:20] VITALS: PULSE 112
[2021-04-20 17:26] VITALS: RESP 24; O2SAT 97
[2021-06-28 12:20] VITALS: BMI 55.9
[2021-10-07 15:18] LABS: Add Manual Diff / Slide Review NO; Basophils Absolute Auto 0 /uL (0-100); Basophils Percent Auto 0.5 % (0-2); Eosinophils Absolute Auto 0 /uL (0-450); Hematocrit 36.3 % (36-46); Hemoglobin 11.7 g/dL (12.0-16.0); Lymphocytes Absolute Auto 1800 /uL (1100-4500); Lymphocytes Percent Auto 23.9 % (25-40); Mean Corpuscular HGB Conc 32.1 % (30-36); Mean Corpuscular Hemoglobin 27.3 PG (26-34); Monocytes Absolute Auto 1000 /uL (0-900); Monocytes Percent Auto 12.8 % (3-14); Neutrophils Absolute Auto 4700 /uL (1500-7000); Neutrophils Percent Auto 62.8 % (50-75); Platelet Count 422 X10^3/uL (150-400); Red Blood Cell Count 4.27 X10^6/uL (4.0-5.2); Red Cell Distribution Width 17.4 % (11.6-14.8); White Blood Cell Count 7.5 X10^3/uL (4.5-11.0)
[2021-10-07 15:37] LABS: Alanine Aminotransferase 17 IU/L (<35); Albumin 4.2 g/dL (3.5-5.0); Albumin Globulin Ratio 1.2 (1.0-2.8); Alkaline Phosphatase 94 U/L (38-126); Aspartate Aminotransferase 21 IU/L (14-36); BUN Creatinine Ratio 30.3 (6-22); Bilirubin Total 0.4 mg/dL (0.2-1.3); Blood Urea Nitrogen 23 mg/dL (7-17); Calcium 9.2 mg/dL (8.4-10.2); Carbon Dioxide 26 mmol/L (22-32); Chloride 102 mmol/L (98-107); Estimated Glomerular Filt Rate > 60 mL/min (>60); Globulin 3.4 g/dL (1.7-4.1); Glucose 167 mg/dL (80-110); HEMOLYSIS < 15 (0-50); Potassium 4.6 mmol/L (3.4-5.1); Sodium 140 mmol/L (137-145); Total Protein 7.6 g/dL (6.3-8.2)
[2021-10-08 06:17] LABS: Immunoglobulin G, Quantitative 1236 mg/dL (586-1602)
== END ==
PROVIDERS: Family Provider Internal Medicine Infectious Disease; PCP Internal Medicine; Visit Provider Allergy & Immunology
DX: D83.9 Common variable immunodeficiency, unspecified (principal)
CPT/HCPCS: 80053; 82784; 85025; 86769

== ENCOUNTER → 2021-10-14 14:29 | Outpatient (ROUT) | payer OTHER, SELFPAY ==
[2021-04-20 12:20] VITALS: PULSE 112
[2021-04-20 17:26] VITALS: RESP 24; O2SAT 97
[2021-06-28 12:20] VITALS: BMI 55.9
[2021-10-14 14:43] LABS: Alanine Aminotransferase 19 IU/L (<35); Albumin 3.7 g/dL (3.5-5.0); Albumin Globulin Ratio 1.1 (1.0-2.8); Alkaline Phosphatase 79 U/L (38-126); Aspartate Aminotransferase 25 IU/L (14-36); BUN Creatinine Ratio 24.7 (6-22); Bilirubin Total 0.4 mg/dL (0.2-1.3); Blood Urea Nitrogen 20 mg/dL (7-17); Calcium 9.2 mg/dL (8.4-10.2); Carbon Dioxide 30 mmol/L (22-32); Chloride 101 mmol/L (98-107); Estimated Glomerular Filt Rate > 60 mL/min (>60); Globulin 3.5 g/dL (1.7-4.1); Glucose 92 mg/dL (80-110); HEMOLYSIS < 15 (0-50); Sodium 137 mmol/L (137-145); Total Protein 7.2 g/dL (6.3-8.2)
[2021-10-14 14:50] LABS: Add Manual Diff / Slide Review NO; Basophils Absolute Auto 0 /uL (0-100); Basophils Percent Auto 0.1 % (0-2); Eosinophils Absolute Auto 0 /uL (0-450); Hematocrit 31.9 % (36-46); Hemoglobin 10.6 g/dL (12.0-16.0); Lymphocytes Absolute Auto 1000 /uL (1100-4500); Lymphocytes Percent Auto 10.9 % (25-40); Mean Corpuscular HGB Conc 33.1 % (30-36); Mean Corpuscular Hemoglobin 27.8 PG (26-34); Mean Corpuscular Volume 83.8 fL (80-100); Monocytes Absolute Auto 800 /uL (0-900); Monocytes Percent Auto 8.9 % (3-14); Neutrophils Absolute Auto 7000 /uL (1500-7000); Neutrophils Percent Auto 80.1 % (50-75); Platelet Count 344 X10^3/uL (150-400); Red Blood Cell Count 3.81 X10^6/uL (4.0-5.2); Red Cell Distribution Width 18.3 % (11.6-14.8); White Blood Cell Count 8.8 X10^3/uL (4.5-11.0)
== END ==
PROVIDERS: Family Provider Internal Medicine Infectious Disease; PCP Internal Medicine; Visit Provider Internal Medicine Infectious Disease
DX: D80.1 Nonfamilial hypogammaglobulinemia (principal); B96.5 Pseudomonas (aeruginosa) (mallei) (pseudomallei) as the cause of diseases classified elsewhere; D83.9 Common variable immunodeficiency, unspecified
CPT/HCPCS: 80053; 85025

== ENCOUNTER → 2021-11-10 15:28 | Outpatient (CLI) | payer OTHER, SELFPAY ==
[2021-04-20 12:20] VITALS: PULSE 112
[2021-04-20 17:26] VITALS: RESP 24; O2SAT 97
[2021-06-28 12:20] VITALS: BMI 55.9
--- NOTE | 2021-11-10 15:29 | DI.CT.S_ITS ---
PROCEDURE: CT CHEST HIGH RESOLUTION INDICATIONS: BRONCHITIS/SHORTNESS OF BREAST TECHNIQUE: Noncontrast 1.0 and 5.0 mm thick contiguous axial sections from the pulmonary apex to the posterior costophrenic angles, with 7 mm thick coronal and sagittal MIP reformats. 1 mm thick dynamic expiratory images acquired through the upper, mid, and lower lungs. 1.0 mm thick axial sections acquired from the garett to the posterior costophrenic angles in the prone end-inspiration position. For radiation dose reduction, the following was used: automated exposure control, adjustment of mA and/or kV according to patient size. COMPARISON: FINDINGS: Image quality: Excellent. Lungs: Increased atelectasis and scarring, including the lingula, bilateral lower lobes, and right middle lobe. There is a new small pulmonary nodule in the left lower lobe (3/197) Other individual small pulmonary nodules are stable There are also calcified granulomas. Bronchial jean are thickened. suspected areas of mucous plugging. These areas mostly persist on prone imaging. No overt air-trapping. Pleura: No pleural effusions or pneumothorax. Mediastinum: No enlarged lymph nodes by size criteria. Some lymph nodes in the mediastinum are slightly increased compared to 05/25/2021. Mitral annular calcifications. Left atrial enlargement. Bones and chest wall: No suspicious bony lesions. Multiple endplate deformities. Thyroid within normal limits. Abdomen: Solid organs are unremarkable on this noncontrast imaging. Small hiatal hernia. IMPRESSION: Imaging suggestion of airway inflammation and mucous plugging. Increased lingular, middle lobe, and bibasilar scarring and atelectasis. There is also a new small pulmonary nodule in the left lower lobe. Slightly increased mediastinal lymph nodes, probably reactive in etiology. Consider follow-up imaging for these findings in 3-6 months depending on clinical context to document stability/resolution. Dictated by: Yohannes Cueto M.D. on 11/10/2021 at 16:49 Approved by: Yohannes Cueto M.D. on 11/10/2021 at 17:02
== END ==
PROVIDERS: Family Provider Internal Medicine Infectious Disease; PCP Internal Medicine; Referring Provider Allergy & Immunology; Visit Provider Allergy & Immunology
DX: J40 Bronchitis, not specified as acute or chronic (principal); R06.02 Shortness of breath; R91.8 Other nonspecific abnormal finding of lung field; K44.9 Diaphragmatic hernia without obstruction or gangrene
CPT/HCPCS: 71250

== ENCOUNTER 2022-02-04 11:29 | Emergency (ER) | payer OTHER, SELFPAY ==
[2021-04-20 12:20] VITALS: PULSE 112
[2021-04-20 17:26] VITALS: RESP 24; O2SAT 97
[2021-06-28 12:20] VITALS: BMI 55.9
[2022-02-04] VITALS (29 sets, daily range): BP systolic 119–135; BP diastolic 57–78; PULSE 70–96; RESP 18–20; TEMP 37.5; O2SAT 90–99; BMI 45.8
--- NOTE | 2022-02-04 11:43 | ED.BACK ---
HPI - Back Pain/Injury General Chief Complaint: Back Pain/Injury Stated Complaint: low back pain Time Seen by Provider: 02/04/22 11:31 Source: patient and EMS Related Data Home Medications Medication Instructions Recorded Confirmed polyethylene glycol 3350 17 17 gm PO DAILY PRN Constipation ##0 06/06/17 06/28/21 gram/dose oral powder (Miralax) albuterol sulfate 90 mcg/actuation 2 puff inhalation Q4-6H PRN 05/29/19 06/28/21 aerosol inhaler Shortness Of Breath cholecalciferol (vitamin D3) 50 2,000 unit PO DAILY 05/29/19 06/28/21 mcg (2,000 unit) tablet ferrous sulfate 325 mg (65 mg 325 mg PO BEDTIME 05/29/19 06/28/21 iron) tablet immune glob,gamm(IgG) 10 %-pro-IgA 45 gram IV Q3W 05/29/19 06/28/21 0 to 50 mcg/mL intravenous solution (Privigen) spironolactone 50 mg tablet 50 mg PO DAILY 05/29/19 06/28/21 tizanidine 4 mg capsule 4 mg PO QID PRN Muscle Spasm 05/29/19 06/28/21 sodium chloride 3 % for 3 ml inhalation DIRECTED 06/05/19 06/28/21 nebulization cetirizine 10 mg capsule (Zyrtec) 10 mg PO DAILY allergies 01/20/20 06/28/21 montelukast 10 mg tablet 10 mg PO BEDTIME 01/20/20 06/28/21 (Singulair) atorvastatin 40 mg tablet 40 mg PO BEDTIME 04/20/21 06/28/21 epinephrine 0.3 mg/0.3 mL 0.3 mg IM Q5-15M PRN Allergic 04/20/21 06/28/21 injection, auto-injector (EpiPen) Reaction furosemide 20 mg tablet (Lasix) 20 mg PO QAM 04/20/21 06/28/21 insulin glargine 100 unit/mL 35 unit SUBCUT DAILY 04/20/21 06/28/21 subcutaneous solution insulin lispro 100 unit/mL 4 - 8 unit SUBCUT TID 04/20/21 06/28/21 subcutaneous pen (Humalog KwikPen (U-100) Insulin) ipratropium 0.5 mg-albuterol 3 mg 3 ml inhalation BID 04/20/21 06/28/21 (2.5 mg base)/3 mL nebulization soln levothyroxine 75 mcg tablet 75 mcg PO QAM 04/20/21 06/28/21 nortriptyline 25 mg capsule 25 mg PO BEDTIME 04/20/21 06/28/21 pregabalin 200 mg capsule 200 mg PO BID 04/20/21 06/28/21 tiotropium bromide 18 mcg capsule 1 cap inhalation DAILY 04/20/21 06/28/21 with inhalation device (Spiriva with HandiHaler) lansoprazole 15 mg capsule,delayed 30 mg PO BID 04/29/21 06/28/21 release (Prevacid 24Hr) acyclovir 5 % topical ointment 1 applic topical 6XD PRN Outbreak 06/28/21 06/28/21 benralizumab 30 mg/mL subcutaneous 30 mg SUBCUT Q8W 06/28/21 06/28/21 auto-injector buprenorphine 15 mcg/hour weekly 1 patch transdermal QWEEK 06/28/21 06/28/21 transdermal patch duloxetine 30 mg capsule,delayed 30 mg PO DAILY 06/28/21 06/28/21 release fluticasone 500 mcg-salmeterol 50 1 inh inhalation BID 06/28/21 06/28/21 mcg/dose blistr powdr for inhalation (Wixela Inhub) guaifenesin 1,200 mg tablet, 1,200 mg PO BID 06/28/21 06/28/21 extended release 12 hr (Mucinex) oxycodone-acetaminophen 10 mg-325 1 tab PO Q6H PRN Pain (Scale Score 06/28/21 06/28/21 mg tablet (Percocet) 4-6) pramipexole 0.5 mg tablet 0.5 mg PO BEDTIME 06/28/21 06/28/21 torsemide 20 mg tablet 20 mg PO DAILY PRN Edema 06/28/21 06/28/21 Previous Rx's Medication Instructions Recorded ondansetron HCl 4 mg tablet 4 mg PO Q8H PRN nausea and 10/06/19 (Zofran) vomiting #30 tabs verio reflect glucometer #1 ea 01/28/20 insulin syringe-needle U-100 0.5 #100 ea 12/15/20 mL 31 gauge x 5/16 (BD Insulin Syringe Ultra-Fine) clonidine HCl 0.1 mg tablet 0.1 mg PO BID #180 tabs 08/05/20 losartan 50 mg tablet 50 mg PO DAILY #90 tabs 08/05/20 metformin 1,000 mg tablet 1,000 mg PO BID #180 tabs 09/03/20 apixaban 5 mg (74 tabs) tablets in 5 mg PO BID #74 ea 05/01/21 a dose pack levofloxacin 750 mg tablet 750 mg PO Q24H #3 tabs 06/30/21 prednisone 20 mg tablet 20 mg PO DAILY #3 tabs 06/30/21 Allergies Allergy/AdvReac Type Severity Reaction Status Date / Time hydroxychloroquine Allergy Unknown Verified 02/04/22 11:38 [HYDROXYCHLOROQUINE] promethazine [From Phenergan] Allergy Agitated Verified 02/04/22 11:38 cefepime AdvReac Severe pruritis Verified 02/04/22 11:38 Patient History Medical History Abnormal chest xray (~1979) Anemia Ankle pain Asthma (~1959) Bronchiectasis (~2006) Cervical spine disease Chronic back pain Colon polyps (~2015) Degenerative joint disease of spine (~2001) Diabetes mellitus, type II (~2009) Eczema Fibromyalgia Foot pain Hoarseness Hyperlipidemia Hypertension Hypothyroidism Migraines (~1964) 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 Osteopenia Pneumonia Pneumonia Recurrent sinusitis (~1970) Restless leg syndrome Shoulder pain (~03/2018) Sleep apnea Wears glasses Surgical History Anesthesia History of carpal tunnel release History of cataract removal with insertion of prosthetic lens (~2014) History of section History of laminectomy (~2002) History of spinal fusion (~2012) History of thumb surgery Family History Father Stroke Mother Hypertension Brother Cerebral aneurysm Prostate cancer Diabetes mellitus Hypertension Stroke Brother Arthritis Hyperlipidemia Hypertension Sister History of kidney cancer Hypertension Grandfather Cancer Grandmother Cancer Other Family history non-contributory Social History household members: spouse Smoking Status: Never smoker alcohol intake: current Smoking Status: Never smoker alcohol intake frequency: holidays/special occasions only Substance Use Type: does not use Exam Initial Vital Signs Initial Vital Signs: Vital Signs Temperature 99.5 F 02/04/22 11:32 Pulse Rate 90 02/04/22 11:32 Respiratory Rate 20 02/04/22 11:32 Pulse Oximetry 99 02/04/22 11:32 Oxygen Delivery Method 02/04/22 11:32 Oxygen Flow Rate 2 02/04/22 11:32 Course Vital Signs Vital signs: Vital Signs - 8 hr 02/04/22 11:32 Temperature 99.5 F Pulse Rate 90 Respiratory Rate 20 Pulse Oximetry 99 Oxygen Delivery Method Nasal Cannula Oxygen Flow Rate 2 Discharge Plan Departure Prescriptions: No Action polyethylene glycol 3350 [Miralax] 119 GM powder 17 gm PO DAILY PRN (Reason: Constipation) Qty: 0 ondansetron HCl [Zofran] 4 mg tablet 4 mg PO Q8H PRN (Reason: nausea and vomiting) Qty: 30 1RF (DME) insulin syringe-needle U-100 [BD Insulin Syringe Ultra-Fine] 0.5 mL 31 gauge x 5/16 syringe See Rx Instructions .ROUTE .MEDSUPPLY Qty: 100 1RF Rx Instructions: Use once a day as directed clonidine HCl 0.1 mg tablet 0.1 mg PO BID Qty: 180 0RF Rx Instructions: PT WILL NEED TO BE SEEN BEFORE NEXT RENEWAL 08/05/20 losartan 50 mg tablet 50 mg PO DAILY Qty: 90 0RF Rx Instructions: PT WILL NEED TO BE SEEN BEFORE NEXT RENEWAL 08/05/20 metformin 1,000 mg tablet 1,000 mg PO BID Qty: 180 0RF Rx Instructions: PT DUE FOR APPT PRIOR TO END OF CURRENT RX. PLEASE CALL TO SCHEDULE APPT. THANKS 09/03/20 (DME) verio reflect glucometer Qty: 1 0RF Rx Instructions: As directed Privigen 10 % solution 45 gram IV Q3W ferrous sulfate 325 mg (65 mg iron) tablet 325 mg PO BEDTIME spironolactone 50 mg tablet 50 mg PO DAILY tizanidine 4 mg capsule 4 mg PO QID PRN (Reason: Muscle Spasm) cholecalciferol (vitamin D3) 2,000 unit tablet 2,000 unit PO DAILY albuterol sulfate 90 mcg/actuation HFA aerosol inhaler 2 puff INHALATION Q4-6H PRN (Reason: Shortness Of Breath) lansoprazole [Prevacid 24Hr] 15 mg Capsule,Delayed Release(Dr/Ec) 30 mg PO BID apixaban 5 mg (74 tabs) tablets,dose pack 5 mg PO BID Qty: 74 0RF sodium chloride 3 % Solution For Nebulization 3 ml INHALATION DIRECTED Rx Instructions: use w/ nebulizer 2 x daily montelukast [Singulair] 10 mg Tablet 10 mg PO BEDTIME Zyrtec 10 mg Capsule 10 mg PO DAILY pregabalin 200 mg Capsule 200 mg PO BID atorvastatin 40 mg Tablet 40 mg PO BEDTIME ipratropium-albuterol 0.5 mg-3 mg(2.5 mg base)/3 mL Solution For Nebulization 3 ml INHALATION BID levothyroxine 75 mcg Tablet 75 mcg PO QAM nortriptyline 25 mg Capsule 25 mg PO BEDTIME epinephrine [EpiPen] 0.3 mg/0.3 mL Auto-Injector 0.3 mg IM Q5-15M PRN (Reason: Allergic Reaction) Rx Instructions: do not exceed 3 doses per episode Spiriva with HandiHaler 18 mcg Capsule, W/Inhalation Device 1 cap INHALATION DAILY Rx Instructions: puncture 1 cap using device; one dose = 2 inhalations insulin glargine 100 unit/mL solution 35 unit SUBCUT DAILY furosemide [Lasix] 20 mg tablet 20 mg PO QAM insulin lispro [Humalog KwikPen Insulin] 100 unit/mL insulin pen 4 - 8 unit SUBCUT TID pramipexole 0.5 mg tablet 0.5 mg PO BEDTIME buprenorphine 15 mcg/hour Patch Weekly 1 patch TRANSDERMAL QWEEK Rx Instructions: change wednesdays fluticasone propion-salmeterol [Wixela Inhub] 500-50 mcg/dose Blister With Device 1 inh INHALATION BID duloxetine 30 mg Capsule,Delayed Release(Dr/Ec) 30 mg PO DAILY torsemide 20 mg Tablet 20 mg PO DAILY PRN (Reason: Edema) Rx Instructions: if not taking lasix oxycodone-acetaminophen [Percocet] 10-325 mg Tablet 1 tab PO Q6H PRN (Reason: Pain (Scale Score 4-6)) acyclovir 5 % Ointment 1 applic TOPICAL 6XD PRN (Reason: Outbreak) Mucinex 1,200 mg Tablet Extended Release 12hr 1,200 mg PO BID benralizumab 30 mg/mL Auto-Injector 30 mg SUBCUT Q8W levofloxacin 750 mg tablet 750 mg PO Q24H Qty: 3 0RF prednisone 20 mg tablet 20 mg PO DAILY Qty: 3 0RF Referrals: Karin Porter MD [Primary Care Provider] -
--- NOTE | 2022-02-04 11:44 | PC.NURSE ---
For the pain pt reports taking Buprenorphine at approximately 0900, Oxycodone and Tizanidine at 1000. Pt is also currently on Prednisone.
--- NOTE | 2022-02-04 12:19 | ED.BACK ---
HPI - Back Pain/Injury <Hermes Fuentes PA-C - Last Filed: 02/04/22 21:11> General Chief Complaint: Back Pain/Injury Stated Complaint: low back pain Time Seen by Provider: 02/04/22 12:19 Source: patient and EMS History of Present Illness HPI Narrative: Patient is a 71-year-old female who presents to the emergency room today with complaint of back pain. Patient states the pain is in her right lower back. Patient admits to having chronic back pain that is mostly in her left lower back. He said yesterday she was moving around the house tweaked her back in notices pain. States that the pain is so bad that she has difficulty walking. Also states she has difficulty sitting up. Admits to having a laminectomy done in 2002 and in 2012. Patient also states that she has a scheduled steroid injection on March 02. Patient states for pain management she is on Belcuca, Oxycodone, a muscle relaxer and Lyrica. Also states that she takes 40 of prednisone for Allergic bronchopulmonary aspergillosis (ABPA), but also for back pain. States that her prednisone dose was at 5mg per day when she was only taking it for Adrenal insufficiency. Pain right now is about a 9 and is usually about 7 or 8. Pain is made worse with standing or walking and is made better with sitting or lying down. Pt admits to a new sensation of loss of bladder. States that this morning, she lossed her urine without trying to. Related Data Home Medications Medication Instructions Recorded Confirmed polyethylene glycol 3350 17 17 gm PO DAILY PRN Constipation ##0 06/06/17 06/28/21 gram/dose oral powder (Miralax) albuterol sulfate 90 mcg/actuation 2 puff inhalation Q4-6H PRN 05/29/19 06/28/21 aerosol inhaler Shortness Of Breath cholecalciferol (vitamin D3) 50 2,000 unit PO DAILY 05/29/19 06/28/21 mcg (2,000 unit) tablet ferrous sulfate 325 mg (65 mg 325 mg PO BEDTIME 05/29/19 06/28/21 iron) tablet immune glob,gamm(IgG) 10 %-pro-IgA 45 gram IV Q3W 05/29/19 06/28/21 0 to 50 mcg/mL intravenous solution (Privigen) spironolactone 50 mg tablet 50 mg PO DAILY 05/29/19 06/28/21 tizanidine 4 mg capsule 4 mg PO QID PRN Muscle Spasm 05/29/19 06/28/21 sodium chloride 3 % for 3 ml inhalation DIRECTED 06/05/19 06/28/21 nebulization cetirizine 10 mg capsule (Zyrtec) 10 mg PO DAILY allergies 01/20/20 06/28/21 montelukast 10 mg tablet 10 mg PO BEDTIME 01/20/20 06/28/21 (Singulair) atorvastatin 40 mg tablet 40 mg PO BEDTIME 04/20/21 06/28/21 epinephrine 0.3 mg/0.3 mL 0.3 mg IM Q5-15M PRN Allergic 04/20/21 06/28/21 injection, auto-injector (EpiPen) Reaction furosemide 20 mg tablet (Lasix) 20 mg PO QAM 04/20/21 06/28/21 insulin glargine 100 unit/mL 35 unit SUBCUT DAILY 04/20/21 06/28/21 subcutaneous solution insulin lispro 100 unit/mL 4 - 8 unit SUBCUT TID 04/20/21 06/28/21 subcutaneous pen (Humalog KwikPen (U-100) Insulin) ipratropium 0.5 mg-albuterol 3 mg 3 ml inhalation BID 04/20/21 06/28/21 (2.5 mg base)/3 mL nebulization soln levothyroxine 75 mcg tablet 75 mcg PO QAM 04/20/21 06/28/21 nortriptyline 25 mg capsule 25 mg PO BEDTIME 04/20/21 06/28/21 pregabalin 200 mg capsule 200 mg PO BID 04/20/21 06/28/21 tiotropium bromide 18 mcg capsule 1 cap inhalation DAILY 04/20/21 06/28/21 with inhalation device (Spiriva with HandiHaler) lansoprazole 15 mg capsule,delayed 30 mg PO BID 04/29/21 06/28/21 release (Prevacid 24Hr) acyclovir 5 % topical ointment 1 applic topical 6XD PRN Outbreak 06/28/21 06/28/21 benralizumab 30 mg/mL subcutaneous 30 mg SUBCUT Q8W 06/28/21 06/28/21 auto-injector buprenorphine 15 mcg/hour weekly 1 patch transdermal QWEEK 06/28/21 06/28/21 transdermal patch duloxetine 30 mg capsule,delayed 30 mg PO DAILY 06/28/21 06/28/21 release fluticasone 500 mcg-salmeterol 50 1 inh inhalation BID 06/28/21 06/28/21 mcg/dose blistr powdr for inhalation (Wixela Inhub) guaifenesin 1,200 mg tablet, 1,200 mg PO BID 06/28/21 06/28/21 extended release 12 hr (Mucinex) oxycodone-acetaminophen 10 mg-325 1 tab PO Q6H PRN Pain (Scale Score 06/28/21 06/28/21 mg tablet (Percocet) 4-6) pramipexole 0.5 mg tablet 0.5 mg PO BEDTIME 06/28/21 06/28/21 torsemide 20 mg tablet 20 mg PO DAILY PRN Edema 06/28/21 06/28/21 Previous Rx's Medication Instructions Recorded ondansetron HCl 4 mg tablet 4 mg PO Q8H PRN nausea and 10/06/19 (Zofran) vomiting #30 tabs verio reflect glucometer #1 ea 01/28/20 insulin syringe-needle U-100 0.5 #100 ea 03/30/20 mL 31 gauge x 5/16 (BD Insulin Syringe Ultra-Fine) clonidine HCl 0.1 mg tablet 0.1 mg PO BID #180 tabs 08/05/20 losartan 50 mg tablet 50 mg PO DAILY #90 tabs 08/05/20 metformin 1,000 mg tablet 1,000 mg PO BID #180 tabs 09/03/20 apixaban 5 mg (74 tabs) tablets in 5 mg PO BID #74 ea 05/01/21 a dose pack levofloxacin 750 mg tablet 750 mg PO Q24H #3 tabs 06/30/21 prednisone 20 mg tablet 20 mg PO DAILY #3 tabs 06/30/21 Allergies Allergy/AdvReac Type Severity Reaction Status Date / Time hydroxychloroquine Allergy Unknown Verified 02/04/22 11:38 [HYDROXYCHLOROQUINE] promethazine [From Phenergan] Allergy Agitated Verified 02/04/22 11:38 cefepime AdvReac Severe pruritis Verified 02/04/22 11:38 Review of Systems <Hermes Fuentes PA-C - Last Filed: 02/04/22 21:11> Review of Systems Narrative: R.O.S.: General: No fever, chills or fatigue. Cardiovascular: No chest pain or palpitations Respiratory: No S.O.B. HEENT: No congestion, ear pain, rhinorrhea, sore throat or tinnitus Gastrointestinal: No nausea or vomiting : No urinary concerns Skin: No rash or associated abnormalities Musculoskeletal: Back pain? Neurological: Awake, alert and in not apparent distress. No Headaches, changes in vision or other related neurological concerns. Patient History <Hermes Fuentes PA-C - Last Filed: 02/04/22 21:11> Medical History Abnormal chest xray (~1979) Anemia Ankle pain Asthma (~1959) Bronchiectasis (~2006) Cervical spine disease Chronic back pain Colon polyps (~2015) Degenerative joint disease of spine (~2001) Diabetes mellitus, type II (~2009) Eczema Fibromyalgia Foot pain Hoarseness Hyperlipidemia Hypertension Hypothyroidism Migraines (~1964) 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 Osteopenia Pneumonia Pneumonia Recurrent sinusitis (~1970) Restless leg syndrome Shoulder pain (~03/2018) Sleep apnea Wears glasses Surgical History Anesthesia History of carpal tunnel release History of cataract removal with insertion of prosthetic lens (~2014) History of section History of laminectomy (~2002) History of spinal fusion (~2012) History of thumb surgery Family History Father Stroke Mother Hypertension Brother Cerebral aneurysm Prostate cancer Diabetes mellitus Hypertension Stroke Brother Arthritis Hyperlipidemia Hypertension Sister History of kidney cancer Hypertension Grandfather Cancer Grandmother Cancer Other Family history non-contributory Social History household members: spouse Smoking Status: Never smoker alcohol intake: current Smoking Status: Never smoker alcohol intake frequency: holidays/special occasions only Substance Use Type: does not use Exam <MANUEL Salcido Last Filed: 02/04/22 21:11> Narrative Exam Narrative: Physical Exam: ? General: normal appearance, well developed, well nourished, alert, and awake. Not in acute distress. ? Head: WNL. Chest: Lungs CTAB, no rales, rhonchi or wheezes. ?? Heart: RRR, no murmurs, rubs or gallops. Eyes: PERRLA, EOM's full, conjunctivae clear. ? Neuro: Physiologically intact. ?? Extremities: Has positive straight leg raise bilateral lower extremity; Has intact sensation to touch bilateral lower extremity. ?? Skin: Normal, no rashes, no lesions noted. ?? PSYCHIATRIC: The mood is good, no blunted affect. Speech is clear. Thought process is linear, thought content is appropriate. The voice is without significant inflection. Gastrointestinal: Soft; NT; ND; Pos BS with Neg. rebound tenderness. No scars or major deformities noted on Visual Inspection. Initial Vital Signs Initial Vital Signs: Vital Signs Temperature 99.5 F 02/04/22 11:32 Pulse Rate 90 02/04/22 11:32 Respiratory Rate 20 02/04/22 11:32 Pulse Oximetry 99 02/04/22 11:32 Oxygen Delivery Method 02/04/22 11:32 Oxygen Flow Rate 2 02/04/22 11:32 <Bernabe Najera DO - Last Filed: 02/05/22 06:49> Initial Vital Signs Initial Vital Signs: Vital Signs Temperature 99.5 F 02/04/22 11:32 Pulse Rate 90 02/04/22 11:32 Respiratory Rate 20 02/04/22 11:32 Pulse Oximetry 99 02/04/22 11:32 Oxygen Delivery Method 02/04/22 11:32 Oxygen Flow Rate 2 02/04/22 11:32 Course <Hermes Fuentes PA-C - Last Filed: 02/04/22 21:11> Orders Ordered: ED Orders 02/04/22 21:50 Urine Microscopic Stat Discontinued Medications Albuterol/Ipratropium (Albuterol/Ipratropium 3 Ml Ampul) 3 ml INH NOW ONE Stop: 02/04/22 21:31 Last Admin: 02/04/22 21:46 Dose: 3 ml Documented By: JACKLYN Albuterol/Ipratropium (Albuterol/Ipratropium 3 Ml Ampul) 3 ml INH NOW ONE Stop: 02/05/22 04:03 Last Admin: 02/05/22 04:08 Dose: 3 ml Documented By: JACKLYN Cyclobenzaprine HCl (Cyclobenzaprine 10 Mg Tablet) 10 mg PO NOW ONE Stop: 02/04/22 22:58 Last Admin: 02/04/22 23:06 Dose: 10 mg Documented By: SHEREEN Fentanyl (Fentanyl 25 Mcg/Patch) 25 mcg TOP NOW ONE Stop: 02/04/22 23:07 Last Admin: 02/04/22 23:17 Dose: 25 mcg Documented By: TAYLOR Hydromorphone HCl (Hydromorphone 1 Mg Inj) 1 mg IV NOW ONE Stop: 02/04/22 21:17 Last Admin: 02/04/22 21:31 Dose: 1 mg Documented By: SHEREEN Hydromorphone HCl (Hydromorphone 1 Mg Inj) 1 mg IV NOW ONE Stop: 02/04/22 22:15 Last Admin: 02/04/22 22:22 Dose: 1 mg Documented By: SHEREEN Ketorolac Tromethamine (Ketorolac 30 Mg/Ml Vial) 30 mg IV NOW ONE Stop: 02/04/22 22:15 Last Admin: 02/04/22 22:22 Dose: 30 mg Documented By: SHEREEN Vital Signs Vital signs: Vital Signs - 8 hr 02/04/22 23:00 02/04/22 23:30 02/05/22 00:00 Pulse Rate 88 86 82 Respiratory Rate Blood Pressure Pulse Oximetry 95 95 96 Oxygen Delivery Method Nasal Cannula Oxygen Flow Rate 2 02/05/22 04:10 02/05/22 00:30 02/05/22 01:00 Pulse Rate 79 79 82 Respiratory Rate 20 Blood Pressure Pulse Oximetry 96 94 Oxygen Delivery Method Nasal Cannula Oxygen Flow Rate 3 02/05/22 01:30 02/05/22 02:00 02/05/22 02:30 Pulse Rate 79 97 H 95 H Respiratory Rate Blood Pressure Pulse Oximetry 96 95 96 Oxygen Delivery Method Oxygen Flow Rate 02/05/22 03:00 02/05/22 03:30 02/05/22 04:00 Pulse Rate 83 79 87 Respiratory Rate Blood Pressure Pulse Oximetry 96 96 96 Oxygen Delivery Method Oxygen Flow Rate 02/05/22 04:30 02/05/22 05:00 02/05/22 05:30 Pulse Rate 87 82 77 Respiratory Rate Blood Pressure Pulse Oximetry 96 94 90 L Oxygen Delivery Method Oxygen Flow Rate 02/05/22 06:00 02/05/22 06:28 02/05/22 06:28 Pulse Rate 85 89 Respiratory Rate Blood Pressure 134/72 Pulse Oximetry 98 97 Oxygen Delivery Method Oxygen Flow Rate 02/05/22 06:30 Pulse Rate 84 Respiratory Rate Blood Pressure Pulse Oximetry 98 Oxygen Delivery Method Oxygen Flow Rate <Bernabe Najera, DO - Last Filed: 02/05/22 06:49> Orders Ordered: ED Orders 02/04/22 21:50 Urine Microscopic Stat Discontinued Medications Albuterol/Ipratropium (Albuterol/Ipratropium 3 Ml Ampul) 3 ml INH NOW ONE Stop: 02/04/22 21:31 Last Admin: 02/04/22 21:46 Dose: 3 ml Documented By: JACKLYN Albuterol/Ipratropium (Albuterol/Ipratropium 3 Ml Ampul) 3 ml INH NOW ONE Stop: 02/05/22 04:03 Last Admin: 02/05/22 04:08 Dose: 3 ml Documented By: JACKLYN Cyclobenzaprine HCl (Cyclobenzaprine 10 Mg Tablet) 10 mg PO NOW ONE Stop: 02/04/22 22:58 Last Admin: 02/04/22 23:06 Dose: 10 mg Documented By: SHEREEN Fentanyl (Fentanyl 25 Mcg/Patch) 25 mcg TOP NOW ONE Stop: 02/04/22 23:07 Last Admin: 02/04/22 23:17 Dose: 25 mcg Documented By: TAYLOR Hydromorphone HCl (Hydromorphone 1 Mg Inj) 1 mg IV NOW ONE Stop: 02/04/22 21:17 Last Admin: 02/04/22 21:31 Dose: 1 mg Documented By: SHEREEN Hydromorphone HCl (Hydromorphone 1 Mg Inj) 1 mg IV NOW ONE Stop: 02/04/22 22:15 Last Admin: 02/04/22 22:22 Dose: 1 mg Documented By: SHEREEN Ketorolac Tromethamine (Ketorolac 30 Mg/Ml Vial) 30 mg IV NOW ONE Stop: 02/04/22 22:15 Last Admin: 02/04/22 22:22 Dose: 30 mg Documented By: SHEREEN Vital Signs Vital signs: Vital Signs - 8 hr 02/04/22 23:00 02/04/22 23:30 02/05/22 00:00 Pulse Rate 88 86 82 Respiratory Rate Blood Pressure Pulse Oximetry 95 95 96 Oxygen Delivery Method Nasal Cannula Oxygen Flow Rate 2 02/05/22 04:10 02/05/22 00:30 02/05/22 01:00 Pulse Rate 79 79 82 Respiratory Rate 20 Blood Pressure Pulse Oximetry 96 94 Oxygen Delivery Method Nasal Cannula Oxygen Flow Rate 3 02/05/22 01:30 02/05/22 02:00 02/05/22 02:30 Pulse Rate 79 97 H 95 H Respiratory Rate Blood Pressure Pulse Oximetry 96 95 96 Oxygen Delivery Method Oxygen Flow Rate 02/05/22 03:00 02/05/22 03:30 02/05/22 04:00 Pulse Rate 83 79 87 Respiratory Rate Blood Pressure Pulse Oximetry 96 96 96 Oxygen Delivery Method Oxygen Flow Rate 02/05/22 04:30 02/05/22 05:00 02/05/22 05:30 Pulse Rate 87 82 77 Respiratory Rate Blood Pressure Pulse Oximetry 96 94 90 L Oxygen Delivery Method Oxygen Flow Rate 02/05/22 06:00 02/05/22 06:28 02/05/22 06:28 Pulse Rate 85 89 Respiratory Rate Blood Pressure 134/72 Pulse Oximetry 98 97 Oxygen Delivery Method Oxygen Flow Rate 02/05/22 06:30 Pulse Rate 84 Respiratory Rate Blood Pressure Pulse Oximetry 98 Oxygen Delivery Method Oxygen Flow Rate MDM - Back Pain/Injury <Hermes Fuentes PA-C - Last Filed: 02/04/22 21:11> Lab Data Labs: Lab Results 02/04/22 Range/Units 21:50 Urine RBC 0-1/hpf (0-5/HPF) Urine WBC None seen (0-5/HPF) Ur Squamous Epith Cells 1-5 /hpf (0-5/HPF) Urine Bacteria None seen (None) Ur Culture Indicated? Cult not indicated Imaging Data MRI of Thoracic spine: Radiologist's Impression: [address] [address] Magnetic Resonance Report Signed Patient: Radha Zavaleta MR#: [id number] : 1950 Acct:[id number] Age/Sex: 71 / F Date of Service: 02/04/22 Loc: ED Accession Number: [id number] ?? Procedure: MR thoracic spine wo con Ordering Provider: Hermes Fuentes P.A-C PROCEDURE:? MR THORACIC SPINE WO CON ? INDICATIONS:? Back pain ? TECHNIQUE:? Noncontrast sagittal T1 spine echo and T2 fast spin echo, sagittal STIR, and T2 fast spin echo through the thoracic spine.? ? COMPARISON:? None. ? FINDINGS:? Image quality:? Excellent.? ? Alignment and Curvature:? Mild S-shaped thoracic scoliosis.? Trace retrolisthesis T11 on T12. ? Bone Marrow:? No abnormal marrow signal or vertebral body compression fractures.? There are moderate type 2 degenerative Modic changes in the endplates at the T3-4 level and at the T11-12 level. ? Spinal Cord:? Incidental note made of a C6-7 posterior disc herniation effacing the CSF indenting on the spinal cord.? No abnormal cord signal.? There is a mild broad-based posterior disc bulge at T6-7, T7-8, T8-9 without significant encroachment on the spinal cord.? There is partial effacement of anterior CSF. ? Paraspinous Soft Tissues:? No paravertebral masses.? IMPRESSION:? ? 1. No acute vertebral body fractures or pathologic subluxation. ? 2. Degenerative Modic changes at multiple levels. ? 3. Disc height loss and minor posterior disc bulges at several levels as described but without significant central canal narrowing. ? 4. Incidental note made of focal cervical disc herniation.? Clinical correlation recommended.? ? ? Dictated by: Betsy Lundberg M.D. on 02/04/2022 at 16:19 ? ? Approved by: Betsy Lundberg M.D. on 02/04/2022 at 16:28 ? MDM Narrative Medical decision making narrative: Patient 71-year-old female chronic back pain was exacerbated yesterday. Patient on multiple medications to manage her back pain to opioid medications, Narcotics, Muscle relaxer and steroid. Patient has a new finding of loss of bladder function function. So, MRI of thoracic and lumbar spine was ordered. MRI results for Thoracic spine received and MRI results for Lumbar spine not received. This provider had discussion with the patient about discharge home and patient stated she can not sit up can not go she can not even use the bathroom without being assisted. Discussed patient with the hospitalist Yeimy about a potential admission. Yeimy Suggested ordering a urine and a procalcitonin on the patient. Yeimy also recommended that the patient MRI results the received before she can evaluate the patient for admission. Yeimy also stated that the patient is not admission criteria at this time. Yeimy also recommended that we await the MRI results before we contact ortho in regards to this patient. Note initial MRI was ordered around 1:00 p.m. and was not done around 4:00 p.m. this provider contacted him MRI and the roof service technician stated they would come down to do the MRI at that time. MRI was done and thoracic spine was read but lumbar spine was not read. This provider tried to contact the MRI and there was no answer. Laboratory Technical Specialist emergency room personnel then reached out to MRI and was told that the MRI read was on hold. At 9:00 p.m. the MRI read was still not documented. <Bernabe Najera, DO - Last Filed: 02/05/22 06:49> Lab Data Labs: Lab Results 02/04/22 Range/Units 21:50 Urine RBC 0-1/hpf (0-5/HPF) Urine WBC None seen (0-5/HPF) Ur Squamous Epith Cells 1-5 /hpf (0-5/HPF) Urine Bacteria None seen (None) Ur Culture Indicated? Cult not indicated MDM Narrative Medical decision making narrative: Patient 71-year-old female chronic back pain was exacerbated yesterday. Patient on multiple medications to manage her back pain to opioid medications, Narcotics, Muscle relaxer and steroid. Patient has a new finding of loss of bladder function function. So, MRI of thoracic and lumbar spine was ordered. MRI results for Thoracic spine received and MRI results for Lumbar spine not received. This provider had discussion with the patient about discharge home and patient stated she can not sit up can not go she can not even use the bathroom without being assisted. Discussed patient with the hospitalist Yeimy about a potential admission. Yeimy Suggested ordering a urine and a procalcitonin on the patient. Yeimy also recommended that the patient MRI results the received before she can evaluate the patient for admission. Yeimy also stated that the patient is not admission criteria at this time. Yeimy also recommended that we await the MRI results before we contact ortho in regards to this patient. Note initial MRI was ordered around 1:00 p.m. and was not done around 4:00 p.m. this provider contacted him MRI and the roof service technician stated they would come down to do the MRI at that time. MRI was done and thoracic spine was read but lumbar spine was not read. This provider tried to contact the MRI and there was no answer. Laboratory Technical Specialist emergency room personnel then reached out to MRI and was told that the MRI read was on hold. At 9:00 p.m. the MRI read was still not documented. Dr Najera: Received turned over from the APC. Patient has been in the emergency department for almost 9 hours by the time I assumed care of the patient. There was a miscommunication with the lumbar spine MRI. It was placed in a hold status either by the roof service technician or radiologist. Which means that it was never read by radiologist. Took an extended period of time in order to get the study off this hold status. We were eventually able to get it to radiologist who read it. The patient's thoracic and lumbar MRI showed no acute changes. I introduced myself to the patient. She had not received any pain medication up to the point that I took over her care. Patient was given multiple doses of pain medication with only minimal improvement. She was given Flexeril. Was given Toradol. She then was given a fentanyl patch. After this the patient was able to sit up in bed but was unable to stand or use a walker which she normally does at baseline. Patient was very reluctant to be discharged home because of her discomfort. The APC who initially had care the patient discussed the case with the hospitalist who declined to admit secondary to having know ?admittable diagnosis ?the patient did stay in the emergency department overnight. In the morning she was able to sit up at bedside. Was able to roll over in bed. Stated that she still was in discomfort but it was improved. I had a long discussion with her stating that I am not surprised that she was having increased discomfort has she has re-injured her spine however thankfully there was no new surgical issues. Plan will be is to send her home with a fentanyl patch. She can keep this on for a total of 72 hours. She can continue the rest of her medications as directed. Patient was okay with this plan. Discharge Plan Departure Patient Disposition: Home Clinical Impression: Acute exacerbation of chronic low back pain Instructions: DI for Low Back Pain Activity Restrictions/Additional Instructions: Thankfully the MRIs of your spine do not show any new surgical injuries. I would not be surprised if you continue to have discomfort over the next couple days but I suspect that the symptoms should be improving. There was a fentanyl patch placed at approximately 11:00 PM on 02/04/22. This patch can stay on for 72 hours which means that it does need to be removed by 11:00 PM on 02/07/22. I recommend you contact your primary provider for a follow-up. Return to the emergency department for any new or worsening symptoms. Prescriptions: No Action polyethylene glycol 3350 [Miralax] 119 GM powder 17 gm PO DAILY PRN (Reason: Constipation) Qty: 0 ondansetron HCl [Zofran] 4 mg tablet 4 mg PO Q8H PRN (Reason: nausea and vomiting) Qty: 30 1RF (DME) insulin syringe-needle U-100 [BD Insulin Syringe Ultra-Fine] 0.5 mL 31 gauge x 5/16 syringe See Rx Instructions .ROUTE .MEDSUPPLY Qty: 100 1RF Rx Instructions: Use once a day as directed clonidine HCl 0.1 mg tablet 0.1 mg PO BID Qty: 180 0RF Rx Instructions: PT WILL NEED TO BE SEEN BEFORE NEXT RENEWAL 08/05/20 losartan 50 mg tablet 50 mg PO DAILY Qty: 90 0RF Rx Instructions: PT WILL NEED TO BE SEEN BEFORE NEXT RENEWAL 08/05/20 metformin 1,000 mg tablet 1,000 mg PO BID Qty: 180 0RF Rx Instructions: PT DUE FOR APPT PRIOR TO END OF CURRENT RX. PLEASE CALL TO SCHEDULE APPT. THANKS 09/03/20 (DME) verio reflect glucometer Qty: 1 0RF Rx Instructions: As directed Privigen 10 % solution 45 gram IV Q3W ferrous sulfate 325 mg (65 mg iron) tablet 325 mg PO BEDTIME spironolactone 50 mg tablet 50 mg PO DAILY tizanidine 4 mg capsule 4 mg PO QID PRN (Reason: Muscle Spasm) cholecalciferol (vitamin D3) 2,000 unit tablet 2,000 unit PO DAILY albuterol sulfate 90 mcg/actuation HFA aerosol inhaler 2 puff INHALATION Q4-6H PRN (Reason: Shortness Of Breath) lansoprazole [Prevacid 24Hr] 15 mg Capsule,Delayed Release(Dr/Ec) 30 mg PO BID apixaban 5 mg (74 tabs) tablets,dose pack 5 mg PO BID Qty: 74 0RF sodium chloride 3 % Solution For Nebulization 3 ml INHALATION DIRECTED Rx Instructions: use w/ nebulizer 2 x daily montelukast [Singulair] 10 mg Tablet 10 mg PO BEDTIME Zyrtec 10 mg Capsule 10 mg PO DAILY pregabalin 200 mg Capsule 200 mg PO BID atorvastatin 40 mg Tablet 40 mg PO BEDTIME ipratropium-albuterol 0.5 mg-3 mg(2.5 mg base)/3 mL Solution For Nebulization 3 ml INHALATION BID levothyroxine 75 mcg Tablet 75 mcg PO QAM nortriptyline 25 mg Capsule 25 mg PO BEDTIME epinephrine [EpiPen] 0.3 mg/0.3 mL Auto-Injector 0.3 mg IM Q5-15M PRN (Reason: Allergic Reaction) Rx Instructions: do not exceed 3 doses per episode Spiriva with HandiHaler 18 mcg Capsule, W/Inhalation Device 1 cap INHALATION DAILY Rx Instructions: puncture 1 cap using device; one dose = 2 inhalations insulin glargine 100 unit/mL solution 35 unit SUBCUT DAILY furosemide [Lasix] 20 mg tablet 20 mg PO QAM insulin lispro [Humalog KwikPen Insulin] 100 unit/mL insulin pen 4 - 8 unit SUBCUT TID pramipexole 0.5 mg tablet 0.5 mg PO BEDTIME buprenorphine 15 mcg/hour Patch Weekly 1 patch TRANSDERMAL QWEEK Rx Instructions: change wednesdays fluticasone propion-salmeterol [Wixela Inhub] 500-50 mcg/dose Blister With Device 1 inh INHALATION BID duloxetine 30 mg Capsule,Delayed Release(Dr/Ec) 30 mg PO DAILY torsemide 20 mg Tablet 20 mg PO DAILY PRN (Reason: Edema) Rx Instructions: if not taking lasix oxycodone-acetaminophen [Percocet] 10-325 mg Tablet 1 tab PO Q6H PRN (Reason: Pain (Scale Score 4-6)) acyclovir 5 % Ointment 1 applic TOPICAL 6XD PRN (Reason: Outbreak) Mucinex 1,200 mg Tablet Extended Release 12hr 1,200 mg PO BID benralizumab 30 mg/mL Auto-Injector 30 mg SUBCUT Q8W levofloxacin 750 mg tablet 750 mg PO Q24H Qty: 3 0RF prednisone 20 mg tablet 20 mg PO DAILY Qty: 3 0RF Referrals: Karin Porter MD [Primary Care Provider] -
--- NOTE | 2022-02-04 13:23 | DI.MRI.S_ITS ---
PROCEDURE: MR THORACIC SPINE WO CON INDICATIONS: Back pain TECHNIQUE: Noncontrast sagittal T1 spine echo and T2 fast spin echo, sagittal STIR, and T2 fast spin echo through the thoracic spine. COMPARISON: None. FINDINGS: Image quality: Excellent. Alignment and Curvature: Mild S-shaped thoracic scoliosis. Trace retrolisthesis T11 on T12. Bone Marrow: No abnormal marrow signal or vertebral body compression fractures. There are moderate type 2 degenerative Modic changes in the endplates at the T3-4 level and at the T11-12 level. Spinal Cord: Incidental note made of a C6-7 posterior disc herniation effacing the CSF indenting on the spinal cord. No abnormal cord signal. There is a mild broad-based posterior disc bulge at T6-7, T7-8, T8-9 without significant encroachment on the spinal cord. There is partial effacement of anterior CSF. Paraspinous Soft Tissues: No paravertebral masses. IMPRESSION: 1. No acute vertebral body fractures or pathologic subluxation. 2. Degenerative Modic changes at multiple levels. 3. Disc height loss and minor posterior disc bulges at several levels as described but without significant central canal narrowing. 4. Incidental note made of focal cervical disc herniation. Clinical correlation recommended. Dictated by: Betsy Lundberg M.D. on 02/04/2022 at 16:19 Approved by: Betsy Lundberg M.D. on 02/04/2022 at 16:28
--- NOTE | 2022-02-04 14:08 | PC.NURSE ---
Per Alfredo MARQUEZ approval, pt took her home dose of percocet 10/325mg and tizanidine 4mg.
--- NOTE | 2022-02-04 16:48 | DI.MRI.S_ITS ---
PROCEDURE: MR LUMBAR SPINE WO CON INDICATIONS: Back pain TECHNIQUE: Noncontrast sagittal T1 spin echo and T2 fast echo, sagittal STIR, and T2 fast spin echo through the lumbar spine. In cases with scoliosis, additional coronal T2 fast spin echo may be performed. COMPARISON: [facility], MR, MR THORACIC SPINE WO CON, 02/04/2022, 16:35. FINDINGS: Image quality: Excellent. Alignment and Curvature: There is normal bony alignment. Bone Marrow: No suspicious marrow edema. There are type 2 degenerative Modic changes and endplate irregularity at the T11-12 level. Posterior fusion hardware is seen in the L3, L4, and L5 vertebral bodies. There is hypointense endplate irregularity at the L2-3 level. Discs: Severe disc height loss T11-12, T9-10 to lesser extent, and iatrogenic disc space loss at L3-4 and L4-5. There is increased T2 signal throughout the L2-3 disc. Spinal Cord: Conus medullaris terminates at the L1 level. Visualized cord demonstrates normal signal and size. Distal to the conus, the cauda equina nerve roots appear thickened, indistinct, and centrally clumped. Paraspinous Soft Tissues: No paravertebral masses. There are postsurgical changes in the dorsal soft tissues from L3 through L5. There are no suspicious fluid collections. T12-L1: Normal appearance. L1-L2: Mild facet arthropathy. L2-L3: Moderate circumferential disc bulge and prominent facet arthropathy. Moderate to severe central canal stenosis. Severe left neural foraminal narrowing. L3-L4: Postoperative changes. Mild central canal and left neural foraminal narrowing. L4-L5: Postoperative changes. No significant central canal narrowing. The right exiting nerve root is not well seen due to artifact. L5-S1: Mild broad-based posterior disc bulge. Moderate facet arthropathy. No significant central canal narrowing. Mild bilateral foraminal narrowing. IMPRESSION: Postoperative changes, no definite acute disease. Dictated by: Betsy Lundberg M.D. on 02/04/2022 at 17:04 Approved by: Tj Jones M.D. on 02/04/2022 at 21:13
[2022-02-04] MEDS: HYDROMORPHONE 1 MG INJ IV ×2 (21:31→22:22)
[2022-02-04] MEDS: ALBUTEROL/IPRATROPIUM 3 ML AMPUL INH (21:46)
[2022-02-04 22:08] LABS: Bacteria Urine None Seen; Culture Indicated Urine Cult Not Indicated; RBC Urine 0-1/HPF (0-5/HPF); Squamous Epithelial Cell Urine 1-5 /HPF (0-5/HPF); WBC Urine None Seen (0-5/HPF)
[2022-02-04] MEDS: KETOROLAC 30 MG/ML VIAL IV (22:22)
[2022-02-04] MEDS: CYCLOBENZAPRINE 10 MG TABLET PO (23:06)
--- NOTE | 2022-02-04 23:06 | PC.NURSE ---
Attempted to ambulate pt, able to sit pt upright slowly, pt attempted to move leg off stretcher and reported too severe of pain to go further. Dr. Najera notified.
[2022-02-04] MEDS: fentaNYL 25 MCG/PATCH TOP (23:17)
[2022-02-05] VITALS (19 sets, daily range): BP systolic 104–134; BP diastolic 61–72; PULSE 76–97; RESP 16–20; O2SAT 90–99
[2022-02-05] MEDS: ALBUTEROL/IPRATROPIUM 3 ML AMPUL INH (04:08)
--- NOTE | 2022-02-05 08:09 | PC.NURSE ---
Patient was assisted into wheelchair. Very slow to get out of bed and patient states very painful. She states this is crazy that she is being discharged home. Spoke with provider and requested a physical therapy consult. Will call PT when they get in at 0830 to assess patient.
--- NOTE | 2022-02-05 09:03 | ED.BACK ---
HPI - Back Pain/Injury General Chief Complaint: Back Pain/Injury Stated Complaint: low back pain Time Seen by Provider: 02/04/22 12:19 Source: patient and EMS History of Present Illness HPI Narrative: Please see original chart from yesterday for my documentation: addendum. Is chart only has discharge instructions but not able to include those because chart was already signed. Related Data Home Medications Medication Instructions Recorded Confirmed polyethylene glycol 3350 17 17 gm PO DAILY PRN Constipation ##0 06/06/17 06/28/21 gram/dose oral powder (Miralax) albuterol sulfate 90 mcg/actuation 2 puff inhalation Q4-6H PRN 05/29/19 06/28/21 aerosol inhaler Shortness Of Breath cholecalciferol (vitamin D3) 50 2,000 unit PO DAILY 05/29/19 06/28/21 mcg (2,000 unit) tablet ferrous sulfate 325 mg (65 mg 325 mg PO BEDTIME 05/29/19 06/28/21 iron) tablet immune glob,gamm(IgG) 10 %-pro-IgA 45 gram IV Q3W 05/29/19 06/28/21 0 to 50 mcg/mL intravenous solution (Privigen) spironolactone 50 mg tablet 50 mg PO DAILY 05/29/19 06/28/21 tizanidine 4 mg capsule 4 mg PO QID PRN Muscle Spasm 05/29/19 06/28/21 sodium chloride 3 % for 3 ml inhalation DIRECTED 06/05/19 06/28/21 nebulization cetirizine 10 mg capsule (Zyrtec) 10 mg PO DAILY allergies 01/20/20 06/28/21 montelukast 10 mg tablet 10 mg PO BEDTIME 01/20/20 06/28/21 (Singulair) atorvastatin 40 mg tablet 40 mg PO BEDTIME 04/20/21 06/28/21 epinephrine 0.3 mg/0.3 mL 0.3 mg IM Q5-15M PRN Allergic 04/20/21 06/28/21 injection, auto-injector (EpiPen) Reaction furosemide 20 mg tablet (Lasix) 20 mg PO QAM 04/20/21 06/28/21 insulin glargine 100 unit/mL 35 unit SUBCUT DAILY 04/20/21 06/28/21 subcutaneous solution insulin lispro 100 unit/mL 4 - 8 unit SUBCUT TID 04/20/21 06/28/21 subcutaneous pen (Humalog KwikPen (U-100) Insulin) ipratropium 0.5 mg-albuterol 3 mg 3 ml inhalation BID 04/20/21 06/28/21 (2.5 mg base)/3 mL nebulization soln levothyroxine 75 mcg tablet 75 mcg PO QAM 04/20/21 06/28/21 nortriptyline 25 mg capsule 25 mg PO BEDTIME 04/20/21 06/28/21 pregabalin 200 mg capsule 200 mg PO BID 04/20/21 06/28/21 tiotropium bromide 18 mcg capsule 1 cap inhalation DAILY 04/20/21 06/28/21 with inhalation device (Spiriva with HandiHaler) lansoprazole 15 mg capsule,delayed 30 mg PO BID 04/29/21 06/28/21 release (Prevacid 24Hr) acyclovir 5 % topical ointment 1 applic topical 6XD PRN Outbreak 06/28/21 06/28/21 benralizumab 30 mg/mL subcutaneous 30 mg SUBCUT Q8W 06/28/21 06/28/21 auto-injector buprenorphine 15 mcg/hour weekly 1 patch transdermal QWEEK 06/28/21 06/28/21 transdermal patch duloxetine 30 mg capsule,delayed 30 mg PO DAILY 06/28/21 06/28/21 release fluticasone 500 mcg-salmeterol 50 1 inh inhalation BID 06/28/21 06/28/21 mcg/dose blistr powdr for inhalation (Wixela Inhub) guaifenesin 1,200 mg tablet, 1,200 mg PO BID 06/28/21 06/28/21 extended release 12 hr (Mucinex) oxycodone-acetaminophen 10 mg-325 1 tab PO Q6H PRN Pain (Scale Score 06/28/21 06/28/21 mg tablet (Percocet) 4-6) pramipexole 0.5 mg tablet 0.5 mg PO BEDTIME 06/28/21 06/28/21 torsemide 20 mg tablet 20 mg PO DAILY PRN Edema 06/28/21 06/28/21 Previous Rx's Medication Instructions Recorded ondansetron HCl 4 mg tablet 4 mg PO Q8H PRN nausea and 10/06/19 (Zofran) vomiting #30 tabs verio reflect glucometer #1 ea 01/28/20 insulin syringe-needle U-100 0.5 #100 ea 03/30/20 mL 31 gauge x 08/29 (BD Insulin Syringe Ultra-Fine) clonidine HCl 0.1 mg tablet 0.1 mg PO BID #180 tabs 08/05/20 losartan 50 mg tablet 50 mg PO DAILY #90 tabs 08/05/20 metformin 1,000 mg tablet 1,000 mg PO BID #180 tabs 09/03/20 apixaban 5 mg (74 tabs) tablets in 5 mg PO BID #74 ea 05/01/21 a dose pack levofloxacin 750 mg tablet 750 mg PO Q24H #3 tabs 06/30/21 prednisone 20 mg tablet 20 mg PO DAILY #3 tabs 06/30/21 fentanyl 25 mcg/hr transdermal 1 patch transdermal Q72H PRN pain 02/05/22 patch (scale score 1-3) #5 ea Allergies Allergy/AdvReac Type Severity Reaction Status Date / Time hydroxychloroquine Allergy Unknown Verified 02/04/22 11:38 [HYDROXYCHLOROQUINE] promethazine [From Phenergan] Allergy Agitated Verified 02/04/22 11:38 cefepime AdvReac Severe pruritis Verified 02/04/22 11:38 Patient History Medical History Abnormal chest xray (~1979) Anemia Ankle pain Asthma (~1959) Bronchiectasis (~2006) Cervical spine disease Chronic back pain Colon polyps (~2015) Degenerative joint disease of spine (~2001) Diabetes mellitus, type II (~2009) Eczema Fibromyalgia Foot pain Hoarseness Hyperlipidemia Hypertension Hypothyroidism Migraines (~1964) 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 Osteopenia Pneumonia Pneumonia Recurrent sinusitis (~1970) Restless leg syndrome Shoulder pain (~03/2018) Sleep apnea Wears glasses Surgical History Anesthesia History of carpal tunnel release History of cataract removal with insertion of prosthetic lens (~2014) History of section History of laminectomy (~2002) History of spinal fusion (~2012) History of thumb surgery Family History Father Stroke Mother Hypertension Brother Cerebral aneurysm Prostate cancer Diabetes mellitus Hypertension Stroke Brother Arthritis Hyperlipidemia Hypertension Sister History of kidney cancer Hypertension Grandfather Cancer Grandmother Cancer Other Family history non-contributory Social History household members: spouse Smoking Status: Never smoker alcohol intake: current Smoking Status: Never smoker alcohol intake frequency: holidays/special occasions only Substance Use Type: does not use Exam Initial Vital Signs Initial Vital Signs: Vital Signs Temperature 99.5 F 02/04/22 11:32 Pulse Rate 90 02/04/22 11:32 Respiratory Rate 20 02/04/22 11:32 Pulse Oximetry 99 02/04/22 11:32 Oxygen Delivery Method 02/04/22 11:32 Oxygen Flow Rate 2 02/04/22 11:32 Course Orders Ordered: ED Orders 02/05/22 08:42 Consult to Physical Therapy Evaluate & Treat 02/05/22 08:44 Consult to Physical Therapy Evaluate & Treat Discontinued Medications Albuterol/Ipratropium (Albuterol/Ipratropium 3 Ml Ampul) 3 ml INH NOW ONE Stop: 02/04/22 21:31 Last Admin: 02/04/22 21:46 Dose: 3 ml Documented By: JACKLYN Albuterol/Ipratropium (Albuterol/Ipratropium 3 Ml Ampul) 3 ml INH NOW ONE Stop: 02/05/22 04:03 Last Admin: 02/05/22 04:08 Dose: 3 ml Documented By: JACKLYN Cyclobenzaprine HCl (Cyclobenzaprine 10 Mg Tablet) 10 mg PO NOW ONE Stop: 02/04/22 22:58 Last Admin: 02/04/22 23:06 Dose: 10 mg Documented By: SHEREEN Fentanyl (Fentanyl 25 Mcg/Patch) 25 mcg TOP NOW ONE Stop: 02/04/22 23:07 Last Admin: 02/04/22 23:17 Dose: 25 mcg Documented By: TAYLOR Hydromorphone HCl (Hydromorphone 1 Mg Inj) 1 mg IV NOW ONE Stop: 02/04/22 21:17 Last Admin: 02/04/22 21:31 Dose: 1 mg Documented By: SHEREEN Hydromorphone HCl (Hydromorphone 1 Mg Inj) 1 mg IV NOW ONE Stop: 02/04/22 22:15 Last Admin: 02/04/22 22:22 Dose: 1 mg Documented By: SHEREEN Hydromorphone HCl (Hydromorphone 1 Mg Inj) 1 mg IV NOW ONE Stop: 02/05/22 09:24 Last Admin: 02/05/22 10:04 Dose: 1 mg Documented By: LAURIE Ketorolac Tromethamine (Ketorolac 30 Mg/Ml Vial) 30 mg IV NOW ONE Stop: 02/04/22 22:15 Last Admin: 02/04/22 22:22 Dose: 30 mg Documented By: SHEREEN Prednisone (Prednisone 20 Mg Tablet) 40 mg PO NOW ONE Stop: 02/05/22 11:12 Last Admin: 02/05/22 11:16 Dose: 40 mg Documented By: LAURIE Vital Signs Vital signs: Vital Signs - 8 hr 02/05/22 07:00 02/05/22 07:30 02/05/22 10:43 Pulse Rate 92 H 89 76 Respiratory Rate 16 Blood Pressure 104/61 Pulse Oximetry 97 96 99 Oxygen Delivery Method Nasal Cannula Oxygen Flow Rate 3 MDM - Back Pain/Injury Lab Data Labs: Lab Results 02/04/22 Range/Units 21:50 Urine RBC 0-1/hpf (0-5/HPF) Urine WBC None seen (0-5/HPF) Ur Squamous Epith Cells 1-5 /hpf (0-5/HPF) Urine Bacteria None seen (None) Ur Culture Indicated? Cult not indicated Discharge Plan Departure Patient Disposition: Home Clinical Impression: Acute exacerbation of chronic low back pain Instructions: DI for Low Back Pain Activity Restrictions/Additional Instructions: Thankfully the MRIs of your spine do not show any new surgical injuries. Your MRIs were reviewed with Dr. Arias. He does not feel you require any emergent neurosurgical intervention at this time. He does encourage you to keep your appointment on the 02 of March for injection. It may be worth contacting to see if they can see you sooner for your injection. There was a fentanyl patch placed at approximately 11:00 PM on 02/04/22. This patch can stay on for 72 hours which means that it does need to be removed by 11:00 PM on 02/07/22. You can increase your oxycodone if needed to 1-2 tablets every 6 hours as needed. This medication can make you sleepy do not drive, perform hazardous activities or make any major decisions while taking it. This medication will make you constipated please take a stool softener once to twice daily until stools are soft and regular. A prescription for fentanyl patch is included and was E prescribed to Stan in [place] I recommend you contact your primary provider for a follow-up. Return to the emergency department for any new or worsening symptoms. Prescriptions: New fentanyl 25 mcg/hr patch 72 hour 1 patch transdermal Q72H PRN (Reason: pain (scale score 1-3)) Qty: 5 0RF No Action polyethylene glycol 3350 [Miralax] 119 GM powder 17 gm PO DAILY PRN (Reason: Constipation) Qty: 0 ondansetron HCl [Zofran] 4 mg tablet 4 mg PO Q8H PRN (Reason: nausea and vomiting) Qty: 30 1RF (DME) insulin syringe-needle U-100 [BD Insulin Syringe Ultra-Fine] 0.5 mL 31 gauge x 5/16 syringe See Rx Instructions .ROUTE .MEDSUPPLY Qty: 100 1RF Rx Instructions: Use once a day as directed clonidine HCl 0.1 mg tablet 0.1 mg PO BID Qty: 180 0RF Rx Instructions: PT WILL NEED TO BE SEEN BEFORE NEXT RENEWAL 08/05/20 losartan 50 mg tablet 50 mg PO DAILY Qty: 90 0RF Rx Instructions: PT WILL NEED TO BE SEEN BEFORE NEXT RENEWAL 08/05/20 metformin 1,000 mg tablet 1,000 mg PO BID Qty: 180 0RF Rx Instructions: PT DUE FOR APPT PRIOR TO END OF CURRENT RX. PLEASE CALL TO SCHEDULE APPT. THANKS 09/03/20 (DME) verio reflect glucometer Qty: 1 0RF Rx Instructions: As directed Privigen 10 % solution 45 gram IV Q3W ferrous sulfate 325 mg (65 mg iron) tablet 325 mg PO BEDTIME spironolactone 50 mg tablet 50 mg PO DAILY tizanidine 4 mg capsule 4 mg PO QID PRN (Reason: Muscle Spasm) cholecalciferol (vitamin D3) 2,000 unit tablet 2,000 unit PO DAILY albuterol sulfate 90 mcg/actuation HFA aerosol inhaler 2 puff INHALATION Q4-6H PRN (Reason: Shortness Of Breath) lansoprazole [Prevacid 24Hr] 15 mg Capsule,Delayed Release(Dr/Ec) 30 mg PO BID apixaban 5 mg (74 tabs) tablets,dose pack 5 mg PO BID Qty: 74 0RF sodium chloride 3 % Solution For Nebulization 3 ml INHALATION DIRECTED Rx Instructions: use w/ nebulizer 2 x daily montelukast [Singulair] 10 mg Tablet 10 mg PO BEDTIME Zyrtec 10 mg Capsule 10 mg PO DAILY pregabalin 200 mg Capsule 200 mg PO BID atorvastatin 40 mg Tablet 40 mg PO BEDTIME ipratropium-albuterol 0.5 mg-3 mg(2.5 mg base)/3 mL Solution For Nebulization 3 ml INHALATION BID levothyroxine 75 mcg Tablet 75 mcg PO QAM nortriptyline 25 mg Capsule 25 mg PO BEDTIME epinephrine [EpiPen] 0.3 mg/0.3 mL Auto-Injector 0.3 mg IM Q5-15M PRN (Reason: Allergic Reaction) Rx Instructions: do not exceed 3 doses per episode Spiriva with HandiHaler 18 mcg Capsule, W/Inhalation Device 1 cap INHALATION DAILY Rx Instructions: puncture 1 cap using device; one dose = 2 inhalations insulin glargine 100 unit/mL solution 35 unit SUBCUT DAILY furosemide [Lasix] 20 mg tablet 20 mg PO QAM insulin lispro [Humalog KwikPen Insulin] 100 unit/mL insulin pen 4 - 8 unit SUBCUT TID pramipexole 0.5 mg tablet 0.5 mg PO BEDTIME buprenorphine 15 mcg/hour Patch Weekly 1 patch TRANSDERMAL QWEEK Rx Instructions: change wednesdays fluticasone propion-salmeterol [Wixela Inhub] 500-50 mcg/dose Blister With Device 1 inh INHALATION BID duloxetine 30 mg Capsule,Delayed Release(Dr/Ec) 30 mg PO DAILY torsemide 20 mg Tablet 20 mg PO DAILY PRN (Reason: Edema) Rx Instructions: if not taking lasix oxycodone-acetaminophen [Percocet] 10-325 mg Tablet 1 tab PO Q6H PRN (Reason: Pain (Scale Score 4-6)) acyclovir 5 % Ointment 1 applic TOPICAL 6XD PRN (Reason: Outbreak) Mucinex 1,200 mg Tablet Extended Release 12hr 1,200 mg PO BID benralizumab 30 mg/mL Auto-Injector 30 mg SUBCUT Q8W levofloxacin 750 mg tablet 750 mg PO Q24H Qty: 3 0RF prednisone 20 mg tablet 20 mg PO DAILY Qty: 3 0RF Referrals: Karin Porter MD [Primary Care Provider] - Visit Report Forms: Patient Portal/API
[2022-02-05] MEDS: HYDROMORPHONE 1 MG INJ IV (10:04)
--- NOTE | 2022-02-05 10:23 | PT.IIE ---
Surgical History (Last Reviewed 06/28/21 @ 09:50 by Lalitha Gracia DO) Anesthesia History of carpal tunnel release History of cataract removal with insertion of prosthetic lens (~2014) History of section History of laminectomy (~2002) History of spinal fusion (~2012) History of thumb surgery Medical History (Last Reviewed 06/28/21 @ 18:31 by Radha Fan MD) Abnormal chest xray (~1979) Anemia Ankle pain Asthma (~1959) Bronchiectasis (~2006) Cervical spine disease Chronic back pain Colon polyps (~2015) Degenerative joint disease of spine (~2001) Diabetes mellitus, type II (~2009) Eczema Fibromyalgia Foot pain Hoarseness Hyperlipidemia Hypertension Hypothyroidism Migraines (~1964) 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 Osteopenia Pneumonia Pneumonia Recurrent sinusitis (~1970) Restless leg syndrome Shoulder pain (~03/2018) Sleep apnea Wears glasses Physical Therapy Inpatient Evaluation/Re-Eval M1 PT/OT-IP Prior Functional Status Start: 02/05/22 09:38 Freq: Status: Discharge Protocol: Document 02/05/22 10:23 AW (Rec: 02/05/22 12:20 AW [id number]) Medical Review Prior Functional Status Medical History Reviewed Yes Communication Pt is an effective verbal communicator. Mobility and Gait Pt uses a 4WW for household mobility and a SPC + SCHEDULE PLANNING MANAGER to walk from the house to the car . Activities of Daily Living and IADL's SBA for showers. Otherwise independent. 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 2STE through garage wtih grab bars near door and a new railing (L side ascending) Home Environment High Toilet,Walk in Shower, Built-In Shower Seat Home Equipment Front Wheel Walker,Four Wheel Walker,Straight Cane,Hand Held Shower,Grab Bars Near Toilet, Grab Bars In Shower Additional Social History Comment Pt also has an adjustable bed. She lives in [place] with her spouse who is a retired ortho PA. M2 PT-IP Current Condition Start: 02/05/22 09:38 Freq: Status: Discharge Protocol: Document 02/05/22 10:23 AW (Rec: 02/05/22 12:20 AW [id number]) Physical Therapy Current Condition Current Condition Evaluation Date 02/05/22 Treatment Diagnosis back pain; impaired mobility and gait Onset Date 02/03/22 M3 PT-IP Subjective Start: 02/05/22 09:38 Freq: Status: Discharge Protocol: Document 02/05/22 10:23 AW (Rec: 02/05/22 12:20 AW [id number]) Subjective Physical Therapy Visit Type Type Initial Evaluation Visit Start Time 09:55 Visit Stop Time 10:23 Total Visit Minutes 28 Notes Pt was seen in ED to determine level of assist required for mobility. She has a fentanyl patch on her back and received IV dilaudid just prior to mobilizing. Physical Therapy Visit Comments Patient Comments Pt reports 8/10 back pain in the middle and right side of her back. Therapy Pain Assessment Pain When Pain Assessed At Rest Pain Present Pain Present Pain Reported Location Lower Back Intensity 8 Scale Used Numeric (0 - 10) Description Sharp,Spasm Pain Behaviors Facial Grimacing,Wincing Pain Management Techniques Timing of Activity with Medications M4 PT-IP Mobility and Gait Start: 02/05/22 09:38 Freq: Status: Discharge Protocol: Document 02/05/22 10:23 AW (Rec: 02/05/22 12:20 AW [id number]) PT-Transfer Assessment Sit to and From Stand Sit to and from Stand Minimal Assistance,Moderate Assistance,1 Person Assistance ,Use of Upper Extremities Equipment Transfer Assistive Device Gait Belt,Front Wheeled Walker Orthotic/Prosthetic Devices or Brace: No Transfers Transfer Destination Toilet,Wheelchair Transfer Technique pt ambulated with FWW Transfer Ability Level of Assist Minimal Assistance Comments Mobility Comments Pt was sitting up in a wheelchair as PT arrived. SpO2 96% on 3L/min O2 which was removed for mobility. She stood from the wheelchair mod A with complaint of increased pain. Moving slowly, she was able to get her hands to the walker frame. PT encouraged pt to focus on breath and pt was able to stand upright and shift weight laterally. She took steps forward with FWW and her spouse followed with w /c. She wallked 75 feet to the toilet with FWW CGA. She sat on the toilet with heavy use of grab bar (as at home) and completed toileting and pericare independently. Min A with use of grab bar to rise from the toilet. Pt walked to the sink with FWW CGA. Standing balance was fair as she washed her hands. In total , she stood ~3 minutes before walking with FWW toward the hallway. She transferred to the wheelchair CGA and was wheeled back to room 2. SpO2 was 93% on room air after activity. O2 via NC was replaced. Pt was left with her spouse in the room. Gait Assessment Gait Gait Assistance Required: Contact Guard Assist Distance (Feet) 75 Assistive Devices Assistive Device Gait Belt,Front Wheeled Walker Orthotic/Prosthetic Devices or Brace: No Gait Deviations General Gait Pattern Antalgic,Decreased Stride Length,Decreased Feet Clearance,Flexed Trunk Factors Limiting Gait Function Factors Limiting Gait Function Decreased Activity Tolerance, Decreased Strength,Pain Comments Gait Comments Pt was able to advance her LE' s with cues for slow pace, focus on breathing, and CGA using FWW. Stair Climbing Assessment Comments Stair Climbing Comments Not assessed. PT-Balance Assessment Sitting Balance and Reactions Static Sitting Balance Ability Good Dynamic Sitting Balance Ability Good Standing Balance and Reactions Static Standing Balance Ability Fair Dynamic Standing Balance Ability Fair Device Used FWW M5 PT-IP Objective Assessments Start: 02/05/22 09:38 Freq: Status: Discharge Protocol: Document 02/05/22 10:23 AW (Rec: 02/05/22 12:20 AW [id number]) Orientation Orientation/Cognition Level of Alertness Alert Orientation Name,Day of Week,Place, Situation Language Function Ability No Deficits Noted Safety Awareness Understands Safety Issues Gross Range of Motion Lower Extremity ROM Assessment Within Functional Limits Strength Lower Extremity Strength Assessment Bilaterally Impaired Hip 4-/5 Knee 4-/5 Ankle 4/5 Sensation Assessment Sensation Gross Sensation WNL M6 PT-IP Treatment Start: 02/05/22 09:38 Freq: Status: Discharge Protocol: Document 02/05/22 10:23 AW (Rec: 02/05/22 12:20 AW [id number]) Physical Therapy Treatment Education Education Provided Safety Equipment Issued Equipment Type and Company Educated pt on spinal precautions to limit bending, lifting, twisting. Educated pt on hip hinge mechanics for safe transfers. M7 PT-IP Assessment and Plan Start: 02/05/22 09:38 Freq: Status: Discharge Protocol: Document 02/05/22 10:23 AW (Rec: 02/05/22 12:20 AW [id number]) PT Summary Assessment and Plan Potential Rehabilitation Potential Good Status of Condition at Evaluation Evolving Summary Impairments Pain,Strength,Balance,Bed Mobility,Transfers,Gait, Activity Tolerance Assessment Summary Radha is a 71 yo woman seen in the ED with complaints of intense low back pain since Sunday which has affected her mobility. She was unable to get out of bed with assist yesterday and came to ED via ambulance. She typically mobilizes with 4WW at home and is SBA to independent with ADL's. On assessment today, she was able to complete 75 feet ambulation with FWW CGA and transfers with min assist. She had received IV pain medication just prior to PT evaluation which may have improved her mobility. She may benefit from home health PT but is certainly safe to return home with her spouse to assist her once medically stable. Will continue to follow in the event the patient is admitted. She had needed 2-person assist to Goals Bed Mobility Goal Independent Transfer Goal Independent,Front Wheeled Walker,Four Wheeled Walker Gait Goal Independent,Front Wheel Walker ,Four Wheel Walker Gait Distance 100 Other Goals - up/down 2 steps with left rail ascending SBA Days to Meet Goals 3 Frequency of Treatment Frequency Of Treatment Once a Day Treatment Plan Physical Therapy Treatment Plan Bed Mobility Training,Transfer Training,Gait Training, Therapeutic Exercise,Balance Retraining,Discharge Planning, Hot or Cold Pack Precautions Other Precautions falls risk Recommendations To Nursing Amount of Assist Needed 1 Person Assist Discharge Recommendations PT Discharge Recommendations Home with Assistance,Home Health Transportation Needs at Discharge Private Vehicle
[2022-02-05] MEDS: predniSONE 20 MG TABLET 40 MG PO (11:16)
== END 2022-02-05 11:40 | disposition home or self-care (01) ==
PROVIDERS: Emergency Medicine; Emergency Provider Emergency Medicine; Family Provider Internal Medicine Infectious Disease; PCP Internal Medicine
DX: M54.50 Low back pain, unspecified (principal); R32 Unspecified urinary incontinence; J44.9 Chronic obstructive pulmonary disease, unspecified
CPT/HCPCS: 72146; 72148; 81015; 94640; 96374; 96375; 96376; 97162; 97530; 99285; J1170; J1885

== ENCOUNTER 2022-02-08 16:42 | Emergency (ER) | payer OTHER, SELFPAY ==
[2021-04-20 12:20] VITALS: PULSE 112
[2021-04-20 17:26] VITALS: RESP 24; O2SAT 97
[2021-06-28 12:20] VITALS: BMI 55.9
[2022-02-08] VITALS (87 sets, daily range): BP systolic 126–184; BP diastolic 68–121; PULSE 98–192; RESP 16–51; TEMP 36.8; O2SAT 82–100; BMI 42.9
[2022-02-08] MEDS: ALBUTEROL/IPRATROPIUM 3 ML AMPUL 9 ML INH (17:00)
--- NOTE | 2022-02-08 17:08 | PC.NURSE ---
RT at bedside, breathing tx. Pt states unable to sit up, at all. RT set breathing tx as blow-by due to unable to sit up.
[2022-02-08] MEDS: KETOROLAC 30 MG/ML VIAL 15 MG IV (17:34)
[2022-02-08] MEDS: HYDROMORPHONE 1 MG INJ IV ×2 (17:35→23:53)
--- NOTE | 2022-02-08 17:38 | ED.BACK ---
HPI - Back Pain/Injury <Tran Botello, [facility] - Last Filed: 02/09/22 11:55> General Chief Complaint: Back Pain/Injury Stated Complaint: Chronic back pain/out of meds Time Seen by Provider: 02/08/22 16:55 Source: patient, family and EMS History of Present Illness HPI Narrative: This is a 71-year-old female who returns to the emergency department for her low back pain exacerbation and pain which she was seen in the emergency department for on 02/04/2022, had a complicated visit for multiple reasons but stayed in the emergency department overnight to obtain MRIs of her lumbar and thoracic spine. She has a chronic pain regimen as well and sees Dr. Shepard and Dr. Crow at the [facility]. Her spinal doctor Dr. Lin has seen her MRIs and reviewed them, she is currently taking tizanidine 4-8 mg at night for sleep, Percocet 10 mg every 6 hours as needed, nortriptyline, a fentanyl patch which was recently started after her ER visit. She is currently holding her Belbuca while using this fentanyl patch. She endorses being incontinent and having urinary urgency and frequency states that she has not been able to use the bathroom due to pain. She has multiple medical problems including chronic back pain, fibromyalgia, bronchiectasis and takes 40 mg of prednisone daily, aspergillus/ Pseudomonas infection and is managed by Dr. Whalen with Infectious Disease, her primary care provider is Dr. Coates patient denies any new injuries, her initial injury occurred due to a twisting motion while seated in a chair. She is not had any new shooting pain or any new sensation. Patient is notably tachycardic does not have documented history of atrial fibrillation, on Eliquis 5 mg b.i.d. at baseline. Patient's states that she does breathe like this with grunting and coughing frequently and this is not new but she appears to be in distress at this time which he says is not typical. He says that she is not typically this tachycardic either. She is concerned about a bladder infection because she has not been able to get up and use the restroom Due to her pain. Pt is on 3L NC at baseline at home. [address] [address] Echocardiography Report Signed Patient: Radha Zavaleta MR#: [id number] : 1950 Acct:[id number] Age/Sex: 71 / F Date of Service: 04/29/21 Loc: [facility] 90A-1 Accession Number: [id number] ?? Procedure: EC echo doppler complete Ordering Provider: Miki Marc D.O. ? [place] +---------+? [facility]? +---------+ : ? :? [address] ? : ? : : ? :? [place], [place] ? : ? : : ? :? [address] ? : ? : : ? : ? Phone: [phone]? : ? : +[phone]? [phone]? +---------+ ? Echocardiogram Report + + :Name: RADHA ZAVALETA? Study Date: 04/29/2021? Height: 60 in? : :[facility] ? ? ReadingLocation:? Weight: 240 lb : : ? Gender: Female? BSA: 2.0 m2? ? : :: 1950 ? Age: 71 yrs ? BP: 136/85 mmHg: :Reason For Study: NSTEMI, CHF, Pneumonia ? : :? Performed By: Yehuda Damian ? : :Referring: MIKI MARC? : + + Interpretation Summary 1) Normal left ventricular size, wall motion, and systolic function (EF 60- 65%). 2) Normal right ventricular size with borderline reduced function. 3) The left atrium is severely dilated. 4) There is mild aortic stenosis. 5) There is mild calcific mitral stenosis (mean gradient 7mmHg, HR 86-98bpm). 6) Compared to the Echo done 01/25/2021, no significant change. ? Procedure: ? A two-dimensional transthoracic echocardiogram with color flow and Doppler was performed. The apical views were difficult to obtain and are suboptimal in quality. Comparison is made with the echocardiogram of 01/25/2021. Overall fair image quality with apical window aquisition technically difficult. The heart rate ranged between 86 - 98 bpm during the study. Left Ventricle: ? The left ventricle is normal in size. There is mild-moderate concentric left ventricular hypertrophy. The ejection fraction is estimated to be 60-65%. Left ventricular wall motion is normal. Diastolic function could not be accurately assessed due to unobtainable data. Right Ventricle: ? The right ventricle is normal size. Right ventricular systolic function is borderline reduced. Atria: ? The left atrium is severely dilated. Borderline right atrial enlargement. There is no Doppler evidence for an interatrial shunt. Mitral Valve: ? Previous study noted: There is moderate mitral annular calcification. The mitral valve leaflets are moderately calcified. The anterior leaflet is pliable and mobile while the posterior leaflet is calcified and immobile. The mitral valve mean gradient is 7 mmHg. There is trace mitral regurgitation. Aortic Valve: ? The aortic valve is trileaflet. The aortic valve opens well. There is mild aortic stenosis. There is trace aortic regurgitation. Tricuspid Valve: ? The tricuspid valve is normal. There is trace tricuspid regurgitation. The right ventricular systolic pressure is estimated to be at least 36 mmHg based on an estimated right atrial pressure of 3 mm Hg. Pulmonic Valve: ? The pulmonic valve leaflets are thin and pliable; valve motion is normal. There is trace pulmonic regurgitation. Great Vessels: ? The aortic root is normal size. The ascending aorta is normal in size. The aortic arch is normal in size. The IVC is of normal diameter and collapses greater than 50% with a sniff. This suggests a low right atrial pressure of 3 mm Hg. Pericardium/ Pleura ? Due to the poor quality of the echocardiogram, a pericardial effusion cannot be excluded. There is an anterior echo-free space consistent with a fat pad. There is no pleural effusion. ? MMode/2D Measurements & Calculations LVIDd: 3.7 cm? LVOT diam: 1.5 cm LVIDs: 3.1 cm? Ao root diam: 3.2 cm FS: 15.9 % ? asc Aorta Diam: 3.1 cm IVSd: 1.6 cm ? Ao Arch Diam (Prox Trans): 3.3 cm LVPWd: 1.5 cm LV gonsalves. diameter/BSA (cm/m^2): 1.8 LV sys. diameter/BSA (cm/m^2): 1.5 ? LA A2 area: 30.3 cm2 ? RA long axis: 6.4 cm LA A4 area: 26.1 cm2 ? RA area: 17.0 cm2 LA length (vol): 7.3 cm? RA vol: 38.2 ml LA vol: 91.6 ml? RA : 18.9 ml/m2 LA vol index: 45.4 ml/m2 ? RVD1 (basal): 2.8 cm TAPSE: 1.8 cm ? Doppler Measurements & Calculations Ao V2 max: 195.9 cm/sec? LVOT Max Conner: 121.1 cm/sec Ao V2 mean: 131.4 cm/sec ? LV V1 max P.0 mmHg Ao max P.4 mmHg ? LV V1 VTI: 23.6 cm Ao mean P.5 mmHg ? EAGLE(I,D): 1.2 cm2 Ao V2 VTI: 33.0 cm ? EAGLE(V,D): 1.1 cm2 ? sev ratio: 0.71 ? EAGLE indexed to BSA (cm^2/m^2): 0.62 ? Med Peak E' Conner: 3.9 cm/sec? ? ? TR max conner: 289.9 cm/sec Lat Peak E' Conner: 3.9 cm/sec? ? ? TR max P.6 mmHg MVA(VTI): 0.80 cm2 ? MV V2 mean: 127.9 cm/sec ? SV(LVOT): 41.0 ml MV mean P.2 mmHg MV V2 VTI: 51.1 cm ? Reading Physician:06:30 PM Related Data Home Medications Medication Instructions Recorded Confirmed polyethylene glycol 3350 17 17 gm PO DAILY PRN Constipation ##0 06/06/17 06/28/21 gram/dose oral powder (Miralax) albuterol sulfate 90 mcg/actuation 2 puff inhalation Q4-6H PRN 05/29/19 06/28/21 aerosol inhaler Shortness Of Breath cholecalciferol (vitamin D3) 50 2,000 unit PO DAILY 05/29/19 06/28/21 mcg (2,000 unit) tablet ferrous sulfate 325 mg (65 mg 325 mg PO BEDTIME 05/29/19 06/28/21 iron) tablet immune glob,gamm(IgG) 10 %-pro-IgA 45 gram IV Q3W 05/29/19 06/28/21 0 to 50 mcg/mL intravenous solution (Privigen) spironolactone 50 mg tablet 50 mg PO DAILY 05/29/19 06/28/21 tizanidine 4 mg capsule 4 mg PO QID PRN Muscle Spasm 05/29/19 06/28/21 sodium chloride 3 % for 3 ml inhalation DIRECTED 06/05/19 06/28/21 nebulization cetirizine 10 mg capsule (Zyrtec) 10 mg PO DAILY allergies 01/20/20 06/28/21 montelukast 10 mg tablet 10 mg PO BEDTIME 01/20/20 06/28/21 (Singulair) atorvastatin 40 mg tablet 40 mg PO BEDTIME 04/20/21 06/28/21 epinephrine 0.3 mg/0.3 mL 0.3 mg IM Q5-15M PRN Allergic 04/20/21 06/28/21 injection, auto-injector (EpiPen) Reaction furosemide 20 mg tablet (Lasix) 20 mg PO QAM 04/20/21 06/28/21 insulin glargine 100 unit/mL 35 unit SUBCUT DAILY 04/20/21 06/28/21 subcutaneous solution insulin lispro 100 unit/mL 4 - 8 unit SUBCUT TID 04/20/21 06/28/21 subcutaneous pen (Humalog KwikPen (U-100) Insulin) ipratropium 0.5 mg-albuterol 3 mg 3 ml inhalation BID 04/20/21 06/28/21 (2.5 mg base)/3 mL nebulization soln levothyroxine 75 mcg tablet 75 mcg PO QAM 04/20/21 06/28/21 nortriptyline 25 mg capsule 25 mg PO BEDTIME 04/20/21 06/28/21 pregabalin 200 mg capsule 200 mg PO BID 04/20/21 06/28/21 tiotropium bromide 18 mcg capsule 1 cap inhalation DAILY 04/20/21 06/28/21 with inhalation device (Spiriva with HandiHaler) lansoprazole 15 mg capsule,delayed 30 mg PO BID 04/29/21 06/28/21 release (Prevacid 24Hr) acyclovir 5 % topical ointment 1 applic topical 6XD PRN Outbreak 06/28/21 06/28/21 benralizumab 30 mg/mL subcutaneous 30 mg SUBCUT Q8W 06/28/21 06/28/21 auto-injector buprenorphine 15 mcg/hour weekly 1 patch transdermal QWEEK 06/28/21 06/28/21 transdermal patch duloxetine 30 mg capsule,delayed 30 mg PO DAILY 06/28/21 06/28/21 release fluticasone 500 mcg-salmeterol 50 1 inh inhalation BID 06/28/21 06/28/21 mcg/dose blistr powdr for inhalation (Wixela Inhub) guaifenesin 1,200 mg tablet, 1,200 mg PO BID 06/28/21 06/28/21 extended release 12 hr (Mucinex) oxycodone-acetaminophen 10 mg-325 1 tab PO Q6H PRN Pain (Scale Score 06/28/21 06/28/21 mg tablet (Percocet) 4-6) pramipexole 0.5 mg tablet 0.5 mg PO BEDTIME 06/28/21 06/28/21 torsemide 20 mg tablet 20 mg PO DAILY PRN Edema 06/28/21 06/28/21 Previous Rx's Medication Instructions Recorded ondansetron HCl 4 mg tablet 4 mg PO Q8H PRN nausea and 10/06/19 (Zofran) vomiting #30 tabs verio reflect glucometer #1 ea 01/28/20 insulin syringe-needle U-100 0.5 #100 ea 03/30/20 mL 31 gauge x 5/16 (BD Insulin Syringe Ultra-Fine) clonidine HCl 0.1 mg tablet 0.1 mg PO BID #180 tabs 08/05/20 losartan 50 mg tablet 50 mg PO DAILY #90 tabs 08/05/20 metformin 1,000 mg tablet 1,000 mg PO BID #180 tabs 09/03/20 apixaban 5 mg (74 tabs) tablets in 5 mg PO BID #74 ea 05/01/21 a dose pack levofloxacin 750 mg tablet 750 mg PO Q24H #3 tabs 06/30/21 prednisone 20 mg tablet 20 mg PO DAILY #3 tabs 06/30/21 fentanyl 25 mcg/hr transdermal 1 patch transdermal Q72H PRN pain 02/05/22 patch (scale score 1-3) #5 ea Allergies Allergy/AdvReac Type Severity Reaction Status Date / Time hydroxychloroquine Allergy Unknown Verified 02/04/22 11:38 [HYDROXYCHLOROQUINE] promethazine [From Phenergan] Allergy Agitated Verified 02/04/22 11:38 cefepime AdvReac Severe pruritis Verified 02/04/22 11:38 <Hang Mosquera MD - Last Filed: 02/09/22 04:34> History of Present Illness HPI Narrative: This is a 71-year-old female who returns to the emergency department for her low back pain exacerbation and pain which she was seen in the emergency department for on 02/04/2022, had a complicated visit for multiple reasons but stayed in the emergency department overnight to obtain MRIs of her lumbar and thoracic spine. She has a complicated pain regimen as well and sees Dr. Shepard and Dr. Crow at the [facility]. Her spinal doctor Dr. Lin has seen her MRIs and reviewed them, she is currently taking tizanidine 4-8 mg at night for sleep, Percocet 10 mg every 6 hours as needed, nortriptyline, a fentanyl patch which was recently started after her ER visit. She is currently holding her Belbuca while using this fentanyl patch. She endorses being incontinent and having urinary urgency and frequency states that she has not been able to use the bathroom due to pain. She has multiple medical problems including chronic back pain, fibromyalgia, bronchiectasis and takes 40 mg of prednisone daily, aspergillus/ Pseudomonas infection and is managed by Dr. Glez with Infectious Disease, her primary care provider is Dr. Coates patient denies any new injuries, her initial injury occurred due to a twisting motion while seated in a chair. She is not had any new shooting pain or any new sensation. Patient is notably tachycardic does not have documented history of atrial fibrillation, on Eliquis 5 mg b.i.d. at baseline. Patient's states that she does breathe like this with grunting and coughing frequently and this is not new but she appears to be in distress at this time which he says is not typical. He says that she is not typically this tachycardic either. She is concerned about a bladder infection because she has not been able to get up and use the restroom. [address] [address] Echocardiography Report Signed Patient: Radha Zavaleta MR#: [id number] : 1950 Acct:[id number] Age/Sex: 71 / F Date of Service: 04/29/21 Loc: 90A-1 Accession Number: [id number] ?? Procedure: EC echo doppler complete Ordering Provider: Miki Marc D.O. ? [place] [facility]---------+? [facility]? +---------+ : ? :? [address] ? : ? : : ? :? [place] ? : ? : : ? :? [address] ? : ? : : ? : ? Phone: [phone]? : ? : +---------[phone]? [phone]? +---------+ ? Echocardiogram Report + + :Name: RADHA ZAVALETA? Study Date: 04/29/2021? Height: 60 in? : :Hospital ? ? ReadingLocation:? Weight: 240 lb : : ? Gender: Female? BSA: 2.0 m2? ? : :: 1950 ? Age: 71 yrs ? BP: 136/85 mmHg: :Reason For Study: NSTEMI, CHF, Pneumonia ? : :? Performed By: Yehuda Damian ? : :Referring: MIKI MARC? : + + Interpretation Summary 1) Normal left ventricular size, wall motion, and systolic function (EF 60- 65%). 2) Normal right ventricular size with borderline reduced function. 3) The left atrium is severely dilated. 4) There is mild aortic stenosis. 5) There is mild calcific mitral stenosis (mean gradient 7mmHg, HR 86-98bpm). 6) Compared to the Echo done 01/25/2021, no significant change. ? Procedure: ? A two-dimensional transthoracic echocardiogram with color flow and Doppler was performed. The apical views were difficult to obtain and are suboptimal in quality. Comparison is made with the echocardiogram of 01/25/2021. Overall fair image quality with apical window aquisition technically difficult. The heart rate ranged between 86 - 98 bpm during the study. Left Ventricle: ? The left ventricle is normal in size. There is mild-moderate concentric left ventricular hypertrophy. The ejection fraction is estimated to be 60-65%. Left ventricular wall motion is normal. Diastolic function could not be accurately assessed due to unobtainable data. Right Ventricle: ? The right ventricle is normal size. Right ventricular systolic function is borderline reduced. Atria: ? The left atrium is severely dilated. Borderline right atrial enlargement. There is no Doppler evidence for an interatrial shunt. Mitral Valve: ? Previous study noted: There is moderate mitral annular calcification. The mitral valve leaflets are moderately calcified. The anterior leaflet is pliable and mobile while the posterior leaflet is calcified and immobile. The mitral valve mean gradient is 7 mmHg. There is trace mitral regurgitation. Aortic Valve: ? The aortic valve is trileaflet. The aortic valve opens well. There is mild aortic stenosis. There is trace aortic regurgitation. Tricuspid Valve: ? The tricuspid valve is normal. There is trace tricuspid regurgitation. The right ventricular systolic pressure is estimated to be at least 36 mmHg based on an estimated right atrial pressure of 3 mm Hg. Pulmonic Valve: ? The pulmonic valve leaflets are thin and pliable; valve motion is normal. There is trace pulmonic regurgitation. Great Vessels: ? The aortic root is normal size. The ascending aorta is normal in size. The aortic arch is normal in size. The IVC is of normal diameter and collapses greater than 50% with a sniff. This suggests a low right atrial pressure of 3 mm Hg. Pericardium/ Pleura ? Due to the poor quality of the echocardiogram, a pericardial effusion cannot be excluded. There is an anterior echo-free space consistent with a fat pad. There is no pleural effusion. ? MMode/2D Measurements & Calculations LVIDd: 3.7 cm? LVOT diam: 1.5 cm LVIDs: 3.1 cm? Ao root diam: 3.2 cm FS: 15.9 % ? asc Aorta Diam: 3.1 cm IVSd: 1.6 cm ? Ao Arch Diam (Prox Trans): 3.3 cm LVPWd: 1.5 cm LV gonsalves. diameter/BSA (cm/m^2): 1.8 LV sys. diameter/BSA (cm/m^2): 1.5 ? LA A2 area: 30.3 cm2 ? RA long axis: 6.4 cm LA A4 area: 26.1 cm2 ? RA area: 17.0 cm2 LA length (vol): 7.3 cm? RA vol: 38.2 ml LA vol: 91.6 ml? RA : 18.9 ml/m2 LA vol index: 45.4 ml/m2 ? RVD1 (basal): 2.8 cm TAPSE: 1.8 cm ? Doppler Measurements & Calculations Ao V2 max: 195.9 cm/sec? LVOT Max Conner: 121.1 cm/sec Ao V2 mean: 131.4 cm/sec ? LV V1 max P.0 mmHg Ao max P.4 mmHg ? LV V1 VTI: 23.6 cm Ao mean P.5 mmHg ? EAGLE(I,D): 1.2 cm2 Ao V2 VTI: 33.0 cm ? EAGLE(V,D): 1.1 cm2 ? sev ratio: 0.71 ? EAGLE indexed to BSA (cm^2/m^2): 0.62 ? Med Peak E' Conner: 3.9 cm/sec? ? ? TR max conner: 289.9 cm/sec Lat Peak E' Conner: 3.9 cm/sec? ? ? TR max P.6 mmHg MVA(VTI): 0.80 cm2 ? MV V2 mean: 127.9 cm/sec ? SV(LVOT): 41.0 ml MV mean P.2 mmHg MV V2 VTI: 51.1 cm ? Reading Physician:06:30 PM Review of Systems <SHARAN Norris - Last Filed: 02/09/22 11:55> Review of Systems Narrative: Review of systems is negative for acute abnormalities unless otherwise noted in HPI Patient History <SHARAN Norris - Last Filed: 02/09/22 11:55> Medical History Abnormal chest xray (~1979) Anemia Ankle pain Asthma (~1959) Bronchiectasis (~2006) Cervical spine disease Chronic back pain Colon polyps (~2015) Degenerative joint disease of spine (~2001) Diabetes mellitus, type II (~2009) Eczema Fibromyalgia Foot pain Hoarseness Hyperlipidemia Hypertension Hypothyroidism Migraines (~1964) 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 Osteopenia Pneumonia Pneumonia Recurrent sinusitis (~1970) Restless leg syndrome Shoulder pain (~03/2018) Sleep apnea Wears glasses Surgical History Anesthesia History of carpal tunnel release History of cataract removal with insertion of prosthetic lens (~2014) History of section History of laminectomy (~2002) History of spinal fusion (~2012) History of thumb surgery Family History Father Stroke Mother Hypertension Brother Cerebral aneurysm Prostate cancer Diabetes mellitus Hypertension Stroke Brother Arthritis Hyperlipidemia Hypertension Sister History of kidney cancer Hypertension Grandfather Cancer Grandmother Cancer Other Family history non-contributory Social History household members: spouse Smoking Status: Never smoker alcohol intake: current Smoking Status: Never smoker alcohol intake frequency: holidays/special occasions only Substance Use Type: does not use Exam <SHARAN Norris - Last Filed: 02/09/22 11:55> Narrative Exam Narrative: Reviewed vitals signs and nursing notes. General: cooperative, obese, uncomfortable, in acute distress related to back spasms HEENT: symmetrical facial expressions, moist mucous membranes Cardiovascular: Tachycardic rate and rhythm, no peripheral edema, warm extremities, S1-S2 without murmur, Respiratory: Increased respiratory effort, short of breath with long sentences, can make out short sentences, tachypneic with a rate 28-34, O2 requirement currently at 4 L nasal cannula, patient satting 90% on this, she wears 3 L at home. Grunting and coughing GI: abdomen soft, nontender to palpation, nondistended, without masses, rebound tenderness or exquisite tenderness with exam. MSK: moves all extremities, neurovascularly intact, no weakness, normal tone Skin: brisk capillary refill, without pallor or erythema Neuro: clear speech and cognition, A&O x3, non-ambulatory Psych: mental status is grossly normal, congruent mood, normal affect, pleasantly in distress Initial Vital Signs Initial Vital Signs: Vital Signs Blood Pressure 147/98 H 02/08/22 16:49 <Lalitha Gracia DO - Last Filed: 02/09/22 07:15> Initial Vital Signs Initial Vital Signs: Vital Signs Blood Pressure 147/98 H 02/08/22 16:49 <Hang Mosquera MD - Last Filed: 02/09/22 04:34> Initial Vital Signs Initial Vital Signs: Vital Signs Blood Pressure 147/98 H 02/08/22 16:49 Course <SHARAN Norris - Last Filed: 02/09/22 11:55> Orders Ordered: Discontinued Medications Albuterol/Ipratropium (Albuterol/Ipratropium 3 Ml Ampul) 9 ml INH NOW ONE Stop: 02/08/22 16:59 Last Admin: 02/08/22 17:00 Dose: 9 ml Documented By: TIMUR Bisacodyl (Bisacodyl 10 Mg Supp) 10 mg NV NOW ONE Stop: 02/08/22 17:34 Last Admin: 02/08/22 17:55 Dose: 10 mg Documented By: HALI Diazepam (Diazepam 10 Mg/2 Ml Syringe) 5 mg IV NOW ONE Stop: 02/09/22 01:31 Last Admin: 02/09/22 01:33 Dose: 5 mg Documented By: SWETHA Diltiazem HCl (Diltiazem 5 Mg/Ml Sdv) 10 mg IV NOW ONE Stop: 02/08/22 18:28 Last Admin: 02/08/22 18:34 Dose: 10 mg Documented By: CHAVEZ Furosemide (Furosemide 40 Mg/4 Ml Vial) 40 mg IV NOW ONE Stop: 02/08/22 19:46 Last Admin: 02/08/22 19:58 Dose: 40 mg Documented By: SWETHA Hydromorphone HCl (Hydromorphone 1 Mg Inj) 1 mg IV NOW ONE Stop: 02/08/22 17:31 Last Admin: 02/08/22 17:35 Dose: 1 mg Documented By: RB Hydromorphone HCl (Hydromorphone 1 Mg Inj) 1 mg IV NOW ONE Stop: 02/08/22 23:52 Last Admin: 02/08/22 23:53 Dose: 1 mg Documented By: SWETHA Hydromorphone HCl (Hydromorphone 1 Mg Inj) 1 mg IV NOW ONE Stop: 02/09/22 00:42 Last Admin: 02/09/22 01:00 Dose: 1 mg Documented By: SWETHA Lactated Ringer's (Lactated Ringers) 1,000 mls @ 1,000 mls/hr IV BOLUS ONE Stop: 02/08/22 18:32 Last Infusion: 02/08/22 18:59 Dose: 0 mls/hr Documented By: Admin: 02/08/22 17:55 Dose: 1,000 mls/hr Documented By: CTS DILTIAZEM (Diltiazem 125 Mg/125 Ml-D5w) 125 mg in 125 mls @ 5 mls/hr IV TITRATE [facility]; Protocol Last Titration: 02/08/22 20:36 Dose: 0 mg/hr, 0 mls/hr Documented By: Titration: 02/08/22 19:48 Dose: 0 mg/hr, 0 mls/hr Documented By: Titration: 02/08/22 19:39 Dose: 15 mg/hr, 15 mls/hr Documented By: Titration: 02/08/22 19:33 Dose: 12.5 mg/hr, 12.5 mls/hr Documented By: Titration: 02/08/22 19:21 Dose: 10 mg/hr, 10 mls/hr Documented By: Titration: 02/08/22 19:15 Dose: 7.5 mg/hr, 7.5 mls/hr Documented By: Admin: 02/08/22 19:00 Dose: 5 mg/hr, 5 mls/hr Documented By: CTS Amiodarone HCl/Dextrose (Nexterone) 150 mg in 100 mls @ 600 mls/hr IV NOW ONE; Protocol Stop: 02/08/22 19:54 Last Infusion: 02/08/22 20:10 Dose: 0 mls/hr Documented By: Admin: 02/08/22 20:00 Dose: 600 mls/hr Documented By: DKRicci Amiodarone HCl/Dextrose (Nexterone) 360 mg in 200 mls @ 33.333 mls/hr IV NOW ONE; Protocol Stop: 02/09/22 01:44 Last Titration: 02/09/22 01:48 Dose: 0 mls/hr, 0 mls/hr Documented By: Titration: 02/09/22 01:41 Dose: 33.33 mls/hr, 33.33 mls/hr Documented By: Admin: 02/08/22 20:13 Dose: 33.33 mls/hr, 33.33 mls/hr Documented By: SWETHA Amiodarone HCl/Dextrose (Nexterone) 540 mg in 300 mls @ 16.7 mls/hr IV CONT CARMELO; Protocol Stop: 02/09/22 13:43 Last Admin: 02/08/22 20:35 Dose: Not Given Documented By: SWETHA Amiodarone HCl/Dextrose (Nexterone) 540 mg in 300 mls @ 16.7 mls/hr IV CONT CARMELO; Protocol Stop: 02/09/22 19:43 Last Titration: 02/09/22 01:42 Dose: 16.7 mls/hr, 16.7 mls/hr Documented By: Admin: 02/09/22 01:25 Dose: 16.7 mls/hr, 16.7 mls/hr Documented By: SWETHA Ketorolac Tromethamine (Ketorolac 30 Mg/Ml Vial) 15 mg IV NOW ONE Stop: 02/08/22 17:30 Last Admin: 02/08/22 17:34 Dose: 15 mg Documented By: KAREL Lidocaine (Lidocaine Patch 1 Each Adh..Patch) 1 each TOP NOW ONE Stop: 02/08/22 17:34 Last Admin: 02/08/22 17:56 Dose: 1 each Documented By: HALI Methocarbamol (Methocarbamol 500 Mg Tablet) 750 mg PO NOW ONE Stop: 02/08/22 17:34 Last Admin: 02/08/22 17:56 Dose: 750 mg Documented By: HALI Pantoprazole Sodium (Pantoprazole 40 Mg Vial) 40 mg IV NOW ONE Stop: 02/08/22 17:38 Last Admin: 02/08/22 17:55 Dose: 40 mg Documented By: HALI Prednisone (Prednisone 20 Mg Tablet) 60 mg PO NOW ONE Stop: 02/08/22 17:38 Last Admin: 02/08/22 17:56 Dose: 60 mg Documented By: CTS Vital Signs Vital signs: Vital Signs - 8 hr 02/08/22 23:15 02/08/22 23:15 02/08/22 23:20 Pulse Rate 141 H Respiratory Rate 25 H Blood Pressure 146/99 H 163/109 H Pulse Oximetry 100 02/08/22 23:20 02/08/22 23:25 02/08/22 23:26 Pulse Rate 141 H 141 H Respiratory Rate 19 29 H Blood Pressure 180/94 H Pulse Oximetry 100 99 02/08/22 23:26 02/08/22 23:30 02/08/22 23:30 Pulse Rate 141 H 141 H Respiratory Rate 23 23 Blood Pressure 169/93 H Pulse Oximetry 100 100 02/08/22 23:35 02/08/22 23:35 02/08/22 23:40 Pulse Rate 141 H Respiratory Rate 27 H Blood Pressure 167/102 H 164/101 H Pulse Oximetry 100 02/08/22 23:40 02/08/22 23:45 02/08/22 23:45 Pulse Rate 140 H 140 H Respiratory Rate 26 H 20 Blood Pressure 165/97 H Pulse Oximetry 100 100 02/08/22 23:50 02/08/22 23:50 02/08/22 23:55 Pulse Rate 140 H Respiratory Rate 41 H Blood Pressure 153/97 H 159/103 H Pulse Oximetry 100 02/08/22 23:55 02/09/22 00:00 02/09/22 00:00 Pulse Rate 140 H 138 H Respiratory Rate 22 24 Blood Pressure 164/102 H Pulse Oximetry 100 100 02/09/22 00:05 02/09/22 00:05 02/09/22 00:10 Pulse Rate 138 H Respiratory Rate 26 H Blood Pressure 159/99 H 157/98 H Pulse Oximetry 100 02/09/22 00:10 02/09/22 00:15 02/09/22 00:15 Pulse Rate 138 H 138 H Respiratory Rate 42 H 19 Blood Pressure 155/94 H Pulse Oximetry 100 100 02/09/22 00:20 02/09/22 00:20 02/09/22 00:25 Pulse Rate 138 H Respiratory Rate 24 Blood Pressure 166/98 H 173/90 H Pulse Oximetry 99 02/09/22 00:25 02/09/22 00:30 02/09/22 00:30 Pulse Rate 137 H 137 H Respiratory Rate 20 22 Blood Pressure 156/97 H Pulse Oximetry 100 100 02/09/22 00:35 02/09/22 00:36 02/09/22 00:36 Pulse Rate 137 H 137 H Respiratory Rate 19 20 Blood Pressure 147/88 H Pulse Oximetry 100 100 02/09/22 00:40 02/09/22 00:40 02/09/22 00:45 Pulse Rate 137 H Respiratory Rate 20 Blood Pressure 153/89 H 167/97 H Pulse Oximetry 100 02/09/22 00:45 02/09/22 00:50 02/09/22 00:50 Pulse Rate 137 H 137 H Respiratory Rate 19 16 Blood Pressure 156/102 H Pulse Oximetry 100 100 02/09/22 00:55 02/09/22 00:55 02/09/22 01:00 Pulse Rate 137 H Respiratory Rate 19 Blood Pressure 155/109 H 159/106 H Pulse Oximetry 100 02/09/22 01:00 02/09/22 01:05 02/09/22 01:05 Pulse Rate 136 H 135 H Respiratory Rate 20 25 H Blood Pressure 163/104 H Pulse Oximetry 100 100 02/09/22 01:10 02/09/22 01:10 02/09/22 01:15 Pulse Rate 135 H Respiratory Rate 17 Blood Pressure 152/99 H 138/94 H Pulse Oximetry 100 02/09/22 01:15 02/09/22 01:20 Pulse Rate 135 H 134 H Respiratory Rate 20 43 H Blood Pressure Pulse Oximetry 100 100 <Lalitha Gracia, - Last Filed: 02/09/22 07:15> Orders Ordered: Discontinued Medications Albuterol/Ipratropium (Albuterol/Ipratropium 3 Ml Ampul) 9 ml INH NOW ONE Stop: 02/08/22 16:59 Last Admin: 02/08/22 17:00 Dose: 9 ml Documented By: TIMUR Bisacodyl (Bisacodyl 10 Mg Supp) 10 mg NV NOW ONE Stop: 02/08/22 17:34 Last Admin: 02/08/22 17:55 Dose: 10 mg Documented By: HALI Diazepam (Diazepam 10 Mg/2 Ml Syringe) 5 mg IV NOW ONE Stop: 02/09/22 01:31 Last Admin: 02/09/22 01:33 Dose: 5 mg Documented By: SWETHA Diltiazem HCl (Diltiazem 5 Mg/Ml Sdv) 10 mg IV NOW ONE Stop: 02/08/22 18:28 Last Admin: 02/08/22 18:34 Dose: 10 mg Documented By: CHAVEZ Furosemide (Furosemide 40 Mg/4 Ml Vial) 40 mg IV NOW ONE Stop: 02/08/22 19:46 Last Admin: 02/08/22 19:58 Dose: 40 mg Documented By: SWETHA Hydromorphone HCl (Hydromorphone 1 Mg Inj) 1 mg IV NOW ONE Stop: 02/08/22 17:31 Last Admin: 02/08/22 17:35 Dose: 1 mg Documented By: RB Hydromorphone HCl (Hydromorphone 1 Mg Inj) 1 mg IV NOW ONE Stop: 02/08/22 23:52 Last Admin: 02/08/22 23:53 Dose: 1 mg Documented By: SWETHA Hydromorphone HCl (Hydromorphone 1 Mg Inj) 1 mg IV NOW ONE Stop: 02/09/22 00:42 Last Admin: 02/09/22 01:00 Dose: 1 mg Documented By: SWETHA Lactated Ringer's (Lactated Ringers) 1,000 mls @ 1,000 mls/hr IV BOLUS ONE Stop: 02/08/22 18:32 Last Infusion: 02/08/22 18:59 Dose: 0 mls/hr Documented By: Admin: 02/08/22 17:55 Dose: 1,000 mls/hr Documented By: CTS DILTIAZEM (Diltiazem 125 Mg/125 Ml-D5w) 125 mg in 125 mls @ 5 mls/hr IV TITRATE CARMELO; Protocol Last Titration: 02/08/22 20:36 Dose: 0 mg/hr, 0 mls/hr Documented By: Titration: 02/08/22 19:48 Dose: 0 mg/hr, 0 mls/hr Documented By: Titration: 02/08/22 19:39 Dose: 15 mg/hr, 15 mls/hr Documented By: Titration: 02/08/22 19:33 Dose: 12.5 mg/hr, 12.5 mls/hr Documented By: Titration: 02/08/22 19:21 Dose: 10 mg/hr, 10 mls/hr Documented By: Titration: 02/08/22 19:15 Dose: 7.5 mg/hr, 7.5 mls/hr Documented By: Admin: 02/08/22 19:00 Dose: 5 mg/hr, 5 mls/hr Documented By: CTS Amiodarone HCl/Dextrose (Nexterone) 150 mg in 100 mls @ 600 mls/hr IV NOW ONE; Protocol Stop: 02/08/22 19:54 Last Infusion: 02/08/22 20:10 Dose: 0 mls/hr Documented By: Admin: 02/08/22 20:00 Dose: 600 mls/hr Documented By: SWETHA Amiodarone HCl/Dextrose (Nexterone) 360 mg in 200 mls @ 33.333 mls/hr IV NOW ONE; Protocol Stop: 02/09/22 01:44 Last Titration: 02/09/22 01:48 Dose: 0 mls/hr, 0 mls/hr Documented By: Titration: 02/09/22 01:41 Dose: 33.33 mls/hr, 33.33 mls/hr Documented By: Admin: 02/08/22 20:13 Dose: 33.33 mls/hr, 33.33 mls/hr Documented By: SWETHA Amiodarone HCl/Dextrose (Nexterone) 540 mg in 300 mls @ 16.7 mls/hr IV CONT CARMELO; Protocol Stop: 02/09/22 13:43 Last Admin: 02/08/22 20:35 Dose: Not Given Documented By: SWETHA Amiodarone HCl/Dextrose (Nexterone) 540 mg in 300 mls @ 16.7 mls/hr IV CONT CARMELO; Protocol Stop: 02/09/22 19:43 Last Titration: 02/09/22 01:42 Dose: 16.7 mls/hr, 16.7 mls/hr Documented By: Admin: 02/09/22 01:25 Dose: 16.7 mls/hr, 16.7 mls/hr Documented By: SWETHA Ketorolac Tromethamine (Ketorolac 30 Mg/Ml Vial) 15 mg IV NOW ONE Stop: 02/08/22 17:30 Last Admin: 02/08/22 17:34 Dose: 15 mg Documented By: RB Lidocaine (Lidocaine Patch 1 Each Adh..Patch) 1 each TOP NOW ONE Stop: 02/08/22 17:34 Last Admin: 02/08/22 17:56 Dose: 1 each Documented By: HALI Methocarbamol (Methocarbamol 500 Mg Tablet) 750 mg PO NOW ONE Stop: 02/08/22 17:34 Last Admin: 02/08/22 17:56 Dose: 750 mg Documented By: HALI Pantoprazole Sodium (Pantoprazole 40 Mg Vial) 40 mg IV NOW ONE Stop: 02/08/22 17:38 Last Admin: 02/08/22 17:55 Dose: 40 mg Documented By: HALI Prednisone (Prednisone 20 Mg Tablet) 60 mg PO NOW ONE Stop: 02/08/22 17:38 Last Admin: 02/08/22 17:56 Dose: 60 mg Documented By: HALI Vital Signs Vital signs: Vital Signs - 8 hr 02/08/22 23:15 02/08/22 23:15 02/08/22 23:20 Pulse Rate 141 H Respiratory Rate 25 H Blood Pressure 146/99 H 163/109 H Pulse Oximetry 100 02/08/22 23:20 02/08/22 23:25 02/08/22 23:26 Pulse Rate 141 H 141 H Respiratory Rate 19 29 H Blood Pressure 180/94 H Pulse Oximetry 100 99 02/08/22 23:26 02/08/22 23:30 02/08/22 23:30 Pulse Rate 141 H 141 H Respiratory Rate 23 23 Blood Pressure 169/93 H Pulse Oximetry 100 100 02/08/22 23:35 02/08/22 23:35 02/08/22 23:40 Pulse Rate 141 H Respiratory Rate 27 H Blood Pressure 167/102 H 164/101 H Pulse Oximetry 100 02/08/22 23:40 02/08/22 23:45 02/08/22 23:45 Pulse Rate 140 H 140 H Respiratory Rate 26 H 20 Blood Pressure 165/97 H Pulse Oximetry 100 100 02/08/22 23:50 02/08/22 23:50 02/08/22 23:55 Pulse Rate 140 H Respiratory Rate 41 H Blood Pressure 153/97 H 159/103 H Pulse Oximetry 100 02/08/22 23:55 02/09/22 00:00 02/09/22 00:00 Pulse Rate 140 H 138 H Respiratory Rate 22 24 Blood Pressure 164/102 H Pulse Oximetry 100 100 02/09/22 00:05 02/09/22 00:05 02/09/22 00:10 Pulse Rate 138 H Respiratory Rate 26 H Blood Pressure 159/99 H 157/98 H Pulse Oximetry 100 02/09/22 00:10 02/09/22 00:15 02/09/22 00:15 Pulse Rate 138 H 138 H Respiratory Rate 42 H 19 Blood Pressure 155/94 H Pulse Oximetry 100 100 02/09/22 00:20 02/09/22 00:20 02/09/22 00:25 Pulse Rate 138 H Respiratory Rate 24 Blood Pressure 166/98 H 173/90 H Pulse Oximetry 99 02/09/22 00:25 02/09/22 00:30 02/09/22 00:30 Pulse Rate 137 H 137 H Respiratory Rate 20 22 Blood Pressure 156/97 H Pulse Oximetry 100 100 02/09/22 00:35 02/09/22 00:36 02/09/22 00:36 Pulse Rate 137 H 137 H Respiratory Rate 19 20 Blood Pressure 147/88 H Pulse Oximetry 100 100 02/09/22 00:40 02/09/22 00:40 02/09/22 00:45 Pulse Rate 137 H Respiratory Rate 20 Blood Pressure 153/89 H 167/97 H Pulse Oximetry 100 02/09/22 00:45 02/09/22 00:50 02/09/22 00:50 Pulse Rate 137 H 137 H Respiratory Rate 19 16 Blood Pressure 156/102 H Pulse Oximetry 100 100 02/09/22 00:55 02/09/22 00:55 02/09/22 01:00 Pulse Rate 137 H Respiratory Rate 19 Blood Pressure 155/109 H 159/106 H Pulse Oximetry 100 02/09/22 01:00 02/09/22 01:05 02/09/22 01:05 Pulse Rate 136 H 135 H Respiratory Rate 20 25 H Blood Pressure 163/104 H Pulse Oximetry 100 100 02/09/22 01:10 02/09/22 01:10 02/09/22 01:15 Pulse Rate 135 H Respiratory Rate 17 Blood Pressure 152/99 H 138/94 H Pulse Oximetry 100 02/09/22 01:15 02/09/22 01:20 Pulse Rate 135 H 134 H Respiratory Rate 20 43 H Blood Pressure Pulse Oximetry 100 100 <Hang Mosquera MD - Last Filed: 02/09/22 04:34> Course Course Narrative: 7:30 p.m.. I spoke with Dr. Hensley, cardiology on-call, he is on-call for Dr. Bueno as well, he has reviewed patient's chart. Patient does have mitral stenosis with primary hypertension. At this time patient is at Cardizem 50 mg an hour. At this time will need to switch to amiodarone IV bolus and drip protocol. Give Lasix 40 mg IV. Will need to transfer patient. Patient is on Eliquis. Do not start heparin. Patient does not have history of atrial fibrillation or atrial flutter Orders Ordered: Discontinued Medications Albuterol/Ipratropium (Albuterol/Ipratropium 3 Ml Ampul) 9 ml INH NOW ONE Stop: 02/08/22 16:59 Last Admin: 02/08/22 17:00 Dose: 9 ml Documented By: TIMUR Bisacodyl (Bisacodyl 10 Mg Supp) 10 mg NV NOW ONE Stop: 02/08/22 17:34 Last Admin: 02/08/22 17:55 Dose: 10 mg Documented By: HALI Diazepam (Diazepam 10 Mg/2 Ml Syringe) 5 mg IV NOW ONE Stop: 02/09/22 01:31 Last Admin: 02/09/22 01:33 Dose: 5 mg Documented By: SWETHA Diltiazem HCl (Diltiazem 5 Mg/Ml Sdv) 10 mg IV NOW ONE Stop: 02/08/22 18:28 Last Admin: 02/08/22 18:34 Dose: 10 mg Documented By: CHAVEZ Furosemide (Furosemide 40 Mg/4 Ml Vial) 40 mg IV NOW ONE Stop: 02/08/22 19:46 Last Admin: 02/08/22 19:58 Dose: 40 mg Documented By: SWETHA Hydromorphone HCl (Hydromorphone 1 Mg Inj) 1 mg IV NOW ONE Stop: 02/08/22 17:31 Last Admin: 02/08/22 17:35 Dose: 1 mg Documented By: RB Hydromorphone HCl (Hydromorphone 1 Mg Inj) 1 mg IV NOW ONE Stop: 02/08/22 23:52 Last Admin: 02/08/22 23:53 Dose: 1 mg Documented By: SWETHA Hydromorphone HCl (Hydromorphone 1 Mg Inj) 1 mg IV NOW ONE Stop: 02/09/22 00:42 Last Admin: 02/09/22 01:00 Dose: 1 mg Documented By: SWETHA Lactated Ringer's (Lactated Ringers) 1,000 mls @ 1,000 mls/hr IV BOLUS ONE Stop: 02/08/22 18:32 Last Infusion: 02/08/22 18:59 Dose: 0 mls/hr Documented By: Admin: 02/08/22 17:55 Dose: 1,000 mls/hr Documented By: CTS DILTIAZEM (Diltiazem 125 Mg/125 Ml-D5w) 125 mg in 125 mls @ 5 mls/hr IV TITRATE [facility]; Protocol Last Titration: 02/08/22 20:36 Dose: 0 mg/hr, 0 mls/hr Documented By: Titration: 02/08/22 19:48 Dose: 0 mg/hr, 0 mls/hr Documented By: Titration: 02/08/22 19:39 Dose: 15 mg/hr, 15 mls/hr Documented By: Titration: 02/08/22 19:33 Dose: 12.5 mg/hr, 12.5 mls/hr Documented By: Titration: 02/08/22 19:21 Dose: 10 mg/hr, 10 mls/hr Documented By: Titration: 02/08/22 19:15 Dose: 7.5 mg/hr, 7.5 mls/hr Documented By: Admin: 02/08/22 19:00 Dose: 5 mg/hr, 5 mls/hr Documented By: CTS Amiodarone HCl/Dextrose (Nexterone) 150 mg in 100 mls @ 600 mls/hr IV NOW ONE; Protocol Stop: 02/08/22 19:54 Last Infusion: 02/08/22 20:10 Dose: 0 mls/hr Documented By: Admin: 02/08/22 20:00 Dose: 600 mls/hr Documented By: DKB Amiodarone HCl/Dextrose (Nexterone) 360 mg in 200 mls @ 33.333 mls/hr IV NOW ONE; Protocol Stop: 02/09/22 01:44 Last Titration: 02/09/22 01:48 Dose: 0 mls/hr, 0 mls/hr Documented By: Titration: 02/09/22 01:41 Dose: 33.33 mls/hr, 33.33 mls/hr Documented By: Admin: 02/08/22 20:13 Dose: 33.33 mls/hr, 33.33 mls/hr Documented By: DKB Amiodarone HCl/Dextrose (Nexterone) 540 mg in 300 mls @ 16.7 mls/hr IV CONT CARMELO; Protocol Stop: 02/09/22 13:43 Last Admin: 02/08/22 20:35 Dose: Not Given Documented By: SWETHA Amiodarone HCl/Dextrose (Nexterone) 540 mg in 300 mls @ 16.7 mls/hr IV CONT CARMELO; Protocol Stop: 02/09/22 19:43 Last Titration: 02/09/22 01:42 Dose: 16.7 mls/hr, 16.7 mls/hr Documented By: Admin: 02/09/22 01:25 Dose: 16.7 mls/hr, 16.7 mls/hr Documented By: SWETHA Ketorolac Tromethamine (Ketorolac 30 Mg/Ml Vial) 15 mg IV NOW ONE Stop: 02/08/22 17:30 Last Admin: 02/08/22 17:34 Dose: 15 mg Documented By: RB Lidocaine (Lidocaine Patch 1 Each Adh..Patch) 1 each TOP NOW ONE Stop: 02/08/22 17:34 Last Admin: 02/08/22 17:56 Dose: 1 each Documented By: HALI Methocarbamol (Methocarbamol 500 Mg Tablet) 750 mg PO NOW ONE Stop: 02/08/22 17:34 Last Admin: 02/08/22 17:56 Dose: 750 mg Documented By: CTS Pantoprazole Sodium (Pantoprazole 40 Mg Vial) 40 mg IV NOW ONE Stop: 02/08/22 17:38 Last Admin: 02/08/22 17:55 Dose: 40 mg Documented By: CTS Prednisone (Prednisone 20 Mg Tablet) 60 mg PO NOW ONE Stop: 02/08/22 17:38 Last Admin: 02/08/22 17:56 Dose: 60 mg Documented By: CTS Reevaluation(s) Reevaluation #1: I did update patient and need for transfer, need a higher level of care Time: 21:21 Consultations Consultation #1: Spoke with [facility] cardiology team Dr. Matias, will be on wait list Time: 22:26 Consultation #2: Spoke with Dr. Handy Finley, he will accept patient Time: 22:50 Vital Signs Vital signs: Vital Signs - 8 hr 02/08/22 23:15 02/08/22 23:15 02/08/22 23:20 Pulse Rate 141 H Respiratory Rate 25 H Blood Pressure 146/99 H 163/109 H Pulse Oximetry 100 02/08/22 23:20 02/08/22 23:25 02/08/22 23:26 Pulse Rate 141 H 141 H Respiratory Rate 19 29 H Blood Pressure 180/94 H Pulse Oximetry 100 99 02/08/22 23:26 02/08/22 23:30 02/08/22 23:30 Pulse Rate 141 H 141 H Respiratory Rate 23 23 Blood Pressure 169/93 H Pulse Oximetry 100 100 02/08/22 23:35 02/08/22 23:35 02/08/22 23:40 Pulse Rate 141 H Respiratory Rate 27 H Blood Pressure 167/102 H 164/101 H Pulse Oximetry 100 02/08/22 23:40 02/08/22 23:45 02/08/22 23:45 Pulse Rate 140 H 140 H Respiratory Rate 26 H 20 Blood Pressure 165/97 H Pulse Oximetry 100 100 02/08/22 23:50 02/08/22 23:50 02/08/22 23:55 Pulse Rate 140 H Respiratory Rate 41 H Blood Pressure 153/97 H 159/103 H Pulse Oximetry 100 02/08/22 23:55 02/09/22 00:00 02/09/22 00:00 Pulse Rate 140 H 138 H Respiratory Rate 22 24 Blood Pressure 164/102 H Pulse Oximetry 100 100 02/09/22 00:05 02/09/22 00:05 02/09/22 00:10 Pulse Rate 138 H Respiratory Rate 26 H Blood Pressure 159/99 H 157/98 H Pulse Oximetry 100 02/09/22 00:10 02/09/22 00:15 02/09/22 00:15 Pulse Rate 138 H 138 H Respiratory Rate 42 H 19 Blood Pressure 155/94 H Pulse Oximetry 100 100 02/09/22 00:20 02/09/22 00:20 02/09/22 00:25 Pulse Rate 138 H Respiratory Rate 24 Blood Pressure 166/98 H 173/90 H Pulse Oximetry 99 02/09/22 00:25 02/09/22 00:30 02/09/22 00:30 Pulse Rate 137 H 137 H Respiratory Rate 20 22 Blood Pressure 156/97 H Pulse Oximetry 100 100 02/09/22 00:35 02/09/22 00:36 02/09/22 00:36 Pulse Rate 137 H 137 H Respiratory Rate 19 20 Blood Pressure 147/88 H Pulse Oximetry 100 100 02/09/22 00:40 02/09/22 00:40 02/09/22 00:45 Pulse Rate 137 H Respiratory Rate 20 Blood Pressure 153/89 H 167/97 H Pulse Oximetry 100 02/09/22 00:45 02/09/22 00:50 02/09/22 00:50 Pulse Rate 137 H 137 H Respiratory Rate 19 16 Blood Pressure 156/102 H Pulse Oximetry 100 100 02/09/22 00:55 02/09/22 00:55 02/09/22 01:00 Pulse Rate 137 H Respiratory Rate 19 Blood Pressure 155/109 H 159/106 H Pulse Oximetry 100 02/09/22 01:00 02/09/22 01:05 02/09/22 01:05 Pulse Rate 136 H 135 H Respiratory Rate 20 25 H Blood Pressure 163/104 H Pulse Oximetry 100 100 02/09/22 01:10 02/09/22 01:10 02/09/22 01:15 Pulse Rate 135 H Respiratory Rate 17 Blood Pressure 152/99 H 138/94 H Pulse Oximetry 100 02/09/22 01:15 02/09/22 01:20 Pulse Rate 135 H 134 H Respiratory Rate 20 43 H Blood Pressure Pulse Oximetry 100 100 MDM - Back Pain/Injury <GERARDO NorrisP - Last Filed: 02/09/22 11:55> Lab Data Result diagrams: 02/08/22 17:46 02/08/22 17:46 Labs: Lab Results 02/08/22 02/08/22 02/08/22 Range/Units 17:40 17:46 17:46 WBC 13.4 H (4.5-11.0) X10^3/uL RBC 4.16 (4.0-5.2) X10^6/uL Hgb 11.4 L (12.0-16.0) g/dL Hct 35.1 L (36-46) % MCV 84.3 (80-100) fL MCH 27.4 (26-34) PG MCHC 32.6 (30-36) % RDW 19.5 H (11.6-14.8) % Plt Count 374 (150-400) X10^3/uL Neut % (Auto) 75.5 H (50-75) % Lymph % (Auto) 16.6 L (25-40) % Lincoln % (Auto) 7.2 (3-14) % Eos % (Auto) 0.0 L (2-4) % Baso % (Auto) 0.7 (0-2) % Neut # (Auto) 41558 H (5124-5321) /uL Lymph # (Auto) 2200 (9368-3493) /uL Lincoln # (Auto) 1000 H (0-900) /uL Eos # (Auto) 0 (0-450) /uL Baso # (Auto) 100 (0-100) /uL Sodium 136 L (137-145) mmol/L Potassium 4.5 (3.4-5.1) mmol/L Chloride 101 (98-107) mmol/L Carbon Dioxide 29 (22-32) mmol/L BUN 30 H (7-17) mg/dL Creatinine 0.95 (0.52-1.04) mg/dL Estimated GFR > 60 (>60) mL/min BUN/Creatinine Ratio 31.6 H (6-22) Glucose 208 H (80-110) mg/dL Lactate (0.7-2.1) mmol/L Calcium 9.4 (8.4-10.2) mg/dL Magnesium 1.7 (1.6-2.3) mg/dL Total Bilirubin 0.6 (0.2-1.3) mg/dL AST 21 (14-36) IU/L ALT 23 (<35) IU/L Alkaline Phosphatase 87 (38-126) U/L Total Creatine Kinase (30-135) U/L CK-MB (CK-2) CK-MB (CK-2) Rel Index Troponin I (0.01-0.034) ng/mL C-Reactive Protein 7.3 H (<1.0) mg/dL NT-Pro-B Natriuret Pep (<125) pg/mL Total Protein 7.8 (6.3-8.2) g/dL Albumin 3.8 (3.5-5.0) g/dL Globulin 4.0 (1.7-4.1) g/dL Albumin/Globulin Ratio 1.0 (1.0-2.8) Procalcitonin (<0.5) ng/mL Urine Color Urine Appearance Urine pH (4.5-8.0) Ur Specific Sutton (1.000-1.035) Urine Protein (Negative) Urine Glucose (UA) (Negative) g/dL Urine Ketones (NEGATIVE) Urine Occult Blood (Negative) Urine Nitrate (Negative) Urine Bilirubin (NEGATIVE) Urine Urobilinogen (0.2) E.U./dL Ur Leukocyte Esterase (NEGATIVE) Urine RBC (0-5/HPF) Urine WBC (0-5/HPF) Ur Squamous Epith Cells (0-5/HPF) Urine Bacteria (None) Ur Culture Indicated? SARS-CoV-2 (PCR) Negative (Negative) 02/08/22 02/08/22 02/08/22 Range/Units 17:46 17:46 17:46 WBC (4.5-11.0) X10^3/uL RBC (4.0-5.2) X10^6/uL Hgb (12.0-16.0) g/dL Hct (36-46) % MCV (80-100) fL MCH (26-34) PG MCHC (30-36) % RDW (11.6-14.8) % Plt Count (150-400) X10^3/uL Neut % (Auto) (50-75) % Lymph % (Auto) (25-40) % Lincoln % (Auto) (3-14) % Eos % (Auto) (2-4) % Baso % (Auto) (0-2) % Neut # (Auto) (6606-1928) /uL Lymph # (Auto) (2382-8255) /uL Lincoln # (Auto) (0-900) /uL Eos # (Auto) (0-450) /uL Baso # (Auto) (0-100) /uL Sodium (137-145) mmol/L Potassium (3.4-5.1) mmol/L Chloride (98-107) mmol/L Carbon Dioxide (22-32) mmol/L BUN (7-17) mg/dL Creatinine (0.52-1.04) mg/dL Estimated GFR (>60) mL/min BUN/Creatinine Ratio (6-22) Glucose (80-110) mg/dL Lactate 1.2 (0.7-2.1) mmol/L Calcium (8.4-10.2) mg/dL Magnesium (1.6-2.3) mg/dL Total Bilirubin (0.2-1.3) mg/dL AST (14-36) IU/L ALT (<35) IU/L Alkaline Phosphatase (38-126) U/L Total Creatine Kinase 41 (30-135) U/L CK-MB (CK-2) TNP CK-MB (CK-2) Rel Index TNP Troponin I 0.218 H* (0.01-0.034) ng/mL C-Reactive Protein (<1.0) mg/dL NT-Pro-B Natriuret Pep 7430 H (<125) pg/mL Total Protein (6.3-8.2) g/dL Albumin (3.5-5.0) g/dL Globulin (1.7-4.1) g/dL Albumin/Globulin Ratio (1.0-2.8) Procalcitonin 0.13 (<0.5) ng/mL Urine Color Urine Appearance Urine pH (4.5-8.0) Ur Specific Sutton (1.000-1.035) Urine Protein (Negative) Urine Glucose (UA) (Negative) g/dL Urine Ketones (NEGATIVE) Urine Occult Blood (Negative) Urine Nitrate (Negative) Urine Bilirubin (NEGATIVE) Urine Urobilinogen (0.2) E.U./dL Ur Leukocyte Esterase (NEGATIVE) Urine RBC (0-5/HPF) Urine WBC (0-5/HPF) Ur Squamous Epith Cells (0-5/HPF) Urine Bacteria (None) Ur Culture Indicated? SARS-CoV-2 (PCR) (Negative) 02/08/22 02/08/22 Range/Units 18:10 21:00 WBC (4.5-11.0) X10^3/uL RBC (4.0-5.2) X10^6/uL Hgb (12.0-16.0) g/dL Hct (36-46) % MCV (80-100) fL MCH (26-34) PG MCHC (30-36) % RDW (11.6-14.8) % Plt Count (150-400) X10^3/uL Neut % (Auto) (50-75) % Lymph % (Auto) (25-40) % Lincoln % (Auto) (3-14) % Eos % (Auto) (2-4) % Baso % (Auto) (0-2) % Neut # (Auto) (5780-7268) /uL Lymph # (Auto) (8803-4307) /uL Lincoln # (Auto) (0-900) /uL Eos # (Auto) (0-450) /uL Baso # (Auto) (0-100) /uL Sodium (137-145) mmol/L Potassium (3.4-5.1) mmol/L Chloride (98-107) mmol/L Carbon Dioxide (22-32) mmol/L BUN (7-17) mg/dL Creatinine (0.52-1.04) mg/dL Estimated GFR (>60) mL/min BUN/Creatinine Ratio (6-22) Glucose (80-110) mg/dL Lactate (0.7-2.1) mmol/L Calcium (8.4-10.2) mg/dL Magnesium (1.6-2.3) mg/dL Total Bilirubin (0.2-1.3) mg/dL AST (14-36) IU/L ALT (<35) IU/L Alkaline Phosphatase (38-126) U/L Total Creatine Kinase 38 (30-135) U/L CK-MB (CK-2) TNP CK-MB (CK-2) Rel Index TNP Troponin I 0.266 H* (0.01-0.034) ng/mL C-Reactive Protein (<1.0) mg/dL NT-Pro-B Natriuret Pep (<125) pg/mL Total Protein (6.3-8.2) g/dL Albumin (3.5-5.0) g/dL Globulin (1.7-4.1) g/dL Albumin/Globulin Ratio (1.0-2.8) Procalcitonin (<0.5) ng/mL Urine Color Yellow Urine Appearance Clear Urine pH 5.0 (4.5-8.0) Ur Specific Sutton 1.020 (1.000-1.035) Urine Protein 1+ H (Negative) Urine Glucose (UA) 1+ H (Negative) g/dL Urine Ketones Negative (NEGATIVE) Urine Occult Blood Negative (Negative) Urine Nitrate Negative (Negative) Urine Bilirubin Negative (NEGATIVE) Urine Urobilinogen 0.2 (0.2) E.U./dL Ur Leukocyte Esterase Trace H (NEGATIVE) Urine RBC 0-1/hpf (0-5/HPF) Urine WBC 0-1/hpf (0-5/HPF) Ur Squamous Epith Cells None seen (0-5/HPF) Urine Bacteria Occasional (0-1) (None) Ur Culture Indicated? Specimen cultured SARS-CoV-2 (PCR) (Negative) ECG Data Interpretation: EKG independently reviewed by myself at [] reveals normal sinus rhythm at [] bpm with regular axis and intervals. No STEMI, ST segment changes, arrhythmia, or acute ischemic changes. <Lalitha Gracia, DO - Last Filed: 02/09/22 07:15> Lab Data Labs: Lab Results 02/08/22 02/08/22 02/08/22 Range/Units 17:40 17:46 17:46 WBC 13.4 H (4.5-11.0) X10^3/uL RBC 4.16 (4.0-5.2) X10^6/uL Hgb 11.4 L (12.0-16.0) g/dL Hct 35.1 L (36-46) % MCV 84.3 (80-100) fL MCH 27.4 (26-34) PG MCHC 32.6 (30-36) % RDW 19.5 H (11.6-14.8) % Plt Count 374 (150-400) X10^3/uL Neut % (Auto) 75.5 H (50-75) % Lymph % (Auto) 16.6 L (25-40) % Lincoln % (Auto) 7.2 (3-14) % Eos % (Auto) 0.0 L (2-4) % Baso % (Auto) 0.7 (0-2) % Neut # (Auto) 99861 H (3604-4262) /uL Lymph # (Auto) 2200 (8675-8068) /uL [place] # (Auto) 1000 H (0-900) /uL Eos # (Auto) 0 (0-450) /uL Baso # (Auto) 100 (0-100) /uL Sodium 136 L (137-145) mmol/L Potassium 4.5 (3.4-5.1) mmol/L Chloride 101 (98-107) mmol/L Carbon Dioxide 29 (22-32) mmol/L BUN 30 H (7-17) mg/dL Creatinine 0.95 (0.52-1.04) mg/dL Estimated GFR > 60 (>60) mL/min BUN/Creatinine Ratio 31.6 H (6-22) Glucose 208 H (80-110) mg/dL Lactate (0.7-2.1) mmol/L Calcium 9.4 (8.4-10.2) mg/dL Magnesium 1.7 (1.6-2.3) mg/dL Total Bilirubin 0.6 (0.2-1.3) mg/dL AST 21 (14-36) IU/L ALT 23 (<35) IU/L Alkaline Phosphatase 87 (38-126) U/L Total Creatine Kinase (30-135) U/L CK-MB (CK-2) CK-MB (CK-2) Rel Index Troponin I (0.01-0.034) ng/mL C-Reactive Protein 7.3 H (<1.0) mg/dL NT-Pro-B Natriuret Pep (<125) pg/mL Total Protein 7.8 (6.3-8.2) g/dL Albumin 3.8 (3.5-5.0) g/dL Globulin 4.0 (1.7-4.1) g/dL Albumin/Globulin Ratio 1.0 (1.0-2.8) Procalcitonin (<0.5) ng/mL Urine Color Urine Appearance Urine pH (4.5-8.0) Ur Specific Sutton (1.000-1.035) Urine Protein (Negative) Urine Glucose (UA) (Negative) g/dL Urine Ketones (NEGATIVE) Urine Occult Blood (Negative) Urine Nitrate (Negative) Urine Bilirubin (NEGATIVE) Urine Urobilinogen (0.2) E.U./dL Ur Leukocyte Esterase (NEGATIVE) Urine RBC (0-5/HPF) Urine WBC (0-5/HPF) Ur Squamous Epith Cells (0-5/HPF) Urine Bacteria (None) Ur Culture Indicated? SARS-CoV-2 (PCR) Negative (Negative) 02/08/22 02/08/22 02/08/22 Range/Units 17:46 17:46 17:46 WBC (4.5-11.0) X10^3/uL RBC (4.0-5.2) X10^6/uL Hgb (12.0-16.0) g/dL Hct (36-46) % MCV (80-100) fL MCH (26-34) PG MCHC (30-36) % RDW (11.6-14.8) % Plt Count (150-400) X10^3/uL Neut % (Auto) (50-75) % Lymph % (Auto) (25-40) % Lincoln % (Auto) (3-14) % Eos % (Auto) (2-4) % Baso % (Auto) (0-2) % Neut # (Auto) (5785-5694) /uL Lymph # (Auto) (3321-8263) /uL Lincoln # (Auto) (0-900) /uL Eos # (Auto) (0-450) /uL Baso # (Auto) (0-100) /uL Sodium (137-145) mmol/L Potassium (3.4-5.1) mmol/L Chloride (98-107) mmol/L Carbon Dioxide (22-32) mmol/L BUN (7-17) mg/dL Creatinine (0.52-1.04) mg/dL Estimated GFR (>60) mL/min BUN/Creatinine Ratio (6-22) Glucose (80-110) mg/dL Lactate 1.2 (0.7-2.1) mmol/L Calcium (8.4-10.2) mg/dL Magnesium (1.6-2.3) mg/dL Total Bilirubin (0.2-1.3) mg/dL AST (14-36) IU/L ALT (<35) IU/L Alkaline Phosphatase (38-126) U/L Total Creatine Kinase 41 (30-135) U/L CK-MB (CK-2) TNP CK-MB (CK-2) Rel Index TNP Troponin I 0.218 H* (0.01-0.034) ng/mL C-Reactive Protein (<1.0) mg/dL NT-Pro-B Natriuret Pep 7430 H (<125) pg/mL Total Protein (6.3-8.2) g/dL Albumin (3.5-5.0) g/dL Globulin (1.7-4.1) g/dL Albumin/Globulin Ratio (1.0-2.8) Procalcitonin 0.13 (<0.5) ng/mL Urine Color Urine Appearance Urine pH (4.5-8.0) Ur Specific Sutton (1.000-1.035) Urine Protein (Negative) Urine Glucose (UA) (Negative) g/dL Urine Ketones (NEGATIVE) Urine Occult Blood (Negative) Urine Nitrate (Negative) Urine Bilirubin (NEGATIVE) Urine Urobilinogen (0.2) E.U./dL Ur Leukocyte Esterase (NEGATIVE) Urine RBC (0-5/HPF) Urine WBC (0-5/HPF) Ur Squamous Epith Cells (0-5/HPF) Urine Bacteria (None) Ur Culture Indicated? SARS-CoV-2 (PCR) (Negative) 02/08/22 02/08/22 Range/Units 18:10 21:00 WBC (4.5-11.0) X10^3/uL RBC (4.0-5.2) X10^6/uL Hgb (12.0-16.0) g/dL Hct (36-46) % MCV (80-100) fL MCH (26-34) PG MCHC (30-36) % RDW (11.6-14.8) % Plt Count (150-400) X10^3/uL Neut % (Auto) (50-75) % Lymph % (Auto) (25-40) % Lincoln % (Auto) (3-14) % Eos % (Auto) (2-4) % Baso % (Auto) (0-2) % Neut # (Auto) (8366-8409) /uL Lymph # (Auto) (6269-0948) /uL Lincoln # (Auto) (0-900) /uL Eos # (Auto) (0-450) /uL Baso # (Auto) (0-100) /uL Sodium (137-145) mmol/L Potassium (3.4-5.1) mmol/L Chloride (98-107) mmol/L Carbon Dioxide (22-32) mmol/L BUN (7-17) mg/dL Creatinine (0.52-1.04) mg/dL Estimated GFR (>60) mL/min BUN/Creatinine Ratio (6-22) Glucose (80-110) mg/dL Lactate (0.7-2.1) mmol/L Calcium (8.4-10.2) mg/dL Magnesium (1.6-2.3) mg/dL Total Bilirubin (0.2-1.3) mg/dL AST (14-36) IU/L ALT (<35) IU/L Alkaline Phosphatase (38-126) U/L Total Creatine Kinase 38 (30-135) U/L CK-MB (CK-2) TNP CK-MB (CK-2) Rel Index TNP Troponin I 0.266 H* (0.01-0.034) ng/mL C-Reactive Protein (<1.0) mg/dL NT-Pro-B Natriuret Pep (<125) pg/mL Total Protein (6.3-8.2) g/dL Albumin (3.5-5.0) g/dL Globulin (1.7-4.1) g/dL Albumin/Globulin Ratio (1.0-2.8) Procalcitonin (<0.5) ng/mL Urine Color Yellow Urine Appearance Clear Urine pH 5.0 (4.5-8.0) Ur Specific Sutton 1.020 (1.000-1.035) Urine Protein 1+ H (Negative) Urine Glucose (UA) 1+ H (Negative) g/dL Urine Ketones Negative (NEGATIVE) Urine Occult Blood Negative (Negative) Urine Nitrate Negative (Negative) Urine Bilirubin Negative (NEGATIVE) Urine Urobilinogen 0.2 (0.2) E.U./dL Ur Leukocyte Esterase Trace H (NEGATIVE) Urine RBC 0-1/hpf (0-5/HPF) Urine WBC 0-1/hpf (0-5/HPF) Ur Squamous Epith Cells None seen (0-5/HPF) Urine Bacteria Occasional (0-1) (None) Ur Culture Indicated? Specimen cultured SARS-CoV-2 (PCR) (Negative) ECG Data Interpretation: Atrial flutter with variable AV block rate [address] elevation or depression [place]-patient better rate 113 previous EKG show sinus rhythm from June of 2021 <Hang Mosquera MD - Last Filed: 02/09/22 04:34> Differential Diagnosis Differential diagnosis: Likely other (Acute on chronic back pain. CHF/new onset atrial fibrillation atrial flutter/upper respiratory infection/UTI/non-STEMI) Medical Records Medical records narrative: [address] [address] Magnetic Resonance Report Signed Patient: Radha Zavaleta MR#: [id number] : 1950 Acct:[id number] Age/Sex: 71 / F Date of Service: 02/04/22 Loc: ED Accession Number: [id number] ?? Procedure: MR lumbar spine wo con Ordering Provider: Hermes Fuentes P.A-C PROCEDURE:? MR LUMBAR SPINE WO CON ? INDICATIONS:? Back pain ? TECHNIQUE:? Noncontrast sagittal T1 spin echo and T2 fast echo, sagittal STIR, and T2 fast spin echo through the lumbar spine.? In cases with scoliosis, additional coronal T2 fast spin echo may be performed.? ? COMPARISON:? [facility], , MR THORACIC SPINE WO CON, 02/04/2022, 16:35. ? FINDINGS:? Image quality:? Excellent.? ? Alignment and Curvature:? There is normal bony alignment.? ? Bone Marrow:? No suspicious marrow edema.? There are type 2 degenerative Modic changes and endplate irregularity at the T11-12 level.? Posterior fusion hardware is seen in the L3, L4, and L5 vertebral bodies.? There is hypointense endplate irregularity at the L2-3 level. ? Discs:? Severe disc height loss T11-12, T9-10 to lesser extent, and iatrogenic disc space loss at L3-4 and L4-5.? There is increased T2 signal throughout the L2-3 disc. ? Spinal Cord:? Conus medullaris terminates at the L1 level.? Visualized cord demonstrates normal signal and size.? Distal to the conus, the cauda equina nerve roots appear thickened, indistinct, and centrally clumped. ? Paraspinous Soft Tissues:? No paravertebral masses.? There are postsurgical changes in the dorsal soft tissues from L3 through L5.? There are no suspicious fluid collections. ? T12-L1:? Normal appearance.? ? L1-L2:? Mild facet arthropathy. ? L2-L3:? Moderate circumferential disc bulge and prominent facet arthropathy.? Moderate to severe central canal stenosis.? Severe left neural foraminal narrowing. ? L3-L4:? Postoperative changes.? Mild central canal and left neural foraminal narrowing. ? L4-L5:? Postoperative changes.? No significant central canal narrowing.? The right exiting nerve root is not well seen due to artifact. ? L5-S1:? Mild broad-based posterior disc bulge.? Moderate facet arthropathy.? No significant central canal narrowing.? Mild bilateral foraminal narrowing. ? ? IMPRESSION:? Postoperative changes, no definite acute disease. ? ? ? Dictated by: Betsy Lundberg M.D. on 02/04/2022 at 17:04 ? ? Approved by: Tj Jones M.D. on 02/04/2022 at 21:13 ? [place] [address] Magnetic Resonance Report Signed Patient: Radha Zavaleta MR#: [id number] : 1950 Acct:[id number] Age/Sex: 71 / F Date of Service: 02/04/22 Loc: ED Accession Number: [id number] ?? Procedure: MR thoracic spine wo con Ordering Provider: Hermes Fuentes P.A-C PROCEDURE:? MR THORACIC SPINE WO CON ? INDICATIONS:? Back pain ? TECHNIQUE:? Noncontrast sagittal T1 spine echo and T2 fast spin echo, sagittal STIR, and T2 fast spin echo through the thoracic spine.? ? COMPARISON:? None. ? FINDINGS:? Image quality:? Excellent.? ? Alignment and Curvature:? Mild S-shaped thoracic scoliosis.? Trace retrolisthesis T11 on T12. ? Bone Marrow:? No abnormal marrow signal or vertebral body compression fractures.? There are moderate type 2 degenerative Modic changes in the endplates at the T3-4 level and at the T11-12 level. ? Spinal Cord:? Incidental note made of a C6-7 posterior disc herniation effacing the CSF indenting on the spinal cord.? No abnormal cord signal.? There is a mild broad-based posterior disc bulge at T6-7, T7-8, T8-9 without significant encroachment on the spinal cord.? There is partial effacement of anterior CSF. ? Paraspinous Soft Tissues:? No paravertebral masses.? IMPRESSION:? ? 1. No acute vertebral body fractures or pathologic subluxation. ? 2. Degenerative Modic changes at multiple levels. ? 3. Disc height loss and minor posterior disc bulges at several levels as described but without significant central canal narrowing. ? 4. Incidental note made of focal cervical disc herniation.? Clinical correlation recommended.? ? ? Dictated by: Betsy Lundberg M.D. on 02/04/2022 at 16:19 ? ? Approved by: Betsy Lundberg M.D. on 02/04/2022 at 16:28 ? Lab Data Labs: Lab Results 02/08/22 02/08/22 02/08/22 Range/Units 17:40 17:46 17:46 WBC 13.4 H (4.5-11.0) X10^3/uL RBC 4.16 (4.0-5.2) X10^6/uL Hgb 11.4 L (12.0-16.0) g/dL Hct 35.1 L (36-46) % MCV 84.3 (80-100) fL MCH 27.4 (26-34) PG MCHC 32.6 (30-36) % RDW 19.5 H (11.6-14.8) % Plt Count 374 (150-400) X10^3/uL Neut % (Auto) 75.5 H (50-75) % Lymph % (Auto) 16.6 L (25-40) % Lincoln % (Auto) 7.2 (3-14) % Eos % (Auto) 0.0 L (2-4) % Baso % (Auto) 0.7 (0-2) % Neut # (Auto) 88420 H (6496-8061) /uL Lymph # (Auto) 2200 (1320-5363) /uL Lincoln # (Auto) 1000 H (0-900) /uL Eos # (Auto) 0 (0-450) /uL Baso # (Auto) 100 (0-100) /uL Sodium 136 L (137-145) mmol/L Potassium 4.5 (3.4-5.1) mmol/L Chloride 101 (98-107) mmol/L Carbon Dioxide 29 (22-32) mmol/L BUN 30 H (7-17) mg/dL Creatinine 0.95 (0.52-1.04) mg/dL Estimated GFR > 60 (>60) mL/min BUN/Creatinine Ratio 31.6 H (6-22) Glucose 208 H (80-110) mg/dL Lactate (0.7-2.1) mmol/L Calcium 9.4 (8.4-10.2) mg/dL Magnesium 1.7 (1.6-2.3) mg/dL Total Bilirubin 0.6 (0.2-1.3) mg/dL AST 21 (14-36) IU/L ALT 23 (<35) IU/L Alkaline Phosphatase 87 (38-126) U/L Total Creatine Kinase (30-135) U/L CK-MB (CK-2) CK-MB (CK-2) Rel Index Troponin I (0.01-0.034) ng/mL C-Reactive Protein 7.3 H (<1.0) mg/dL NT-Pro-B Natriuret Pep (<125) pg/mL Total Protein 7.8 (6.3-8.2) g/dL Albumin 3.8 (3.5-5.0) g/dL Globulin 4.0 (1.7-4.1) g/dL Albumin/Globulin Ratio 1.0 (1.0-2.8) Procalcitonin (<0.5) ng/mL Urine Color Urine Appearance Urine pH (4.5-8.0) Ur Specific Sutton (1.000-1.035) Urine Protein (Negative) Urine Glucose (UA) (Negative) g/dL Urine Ketones (NEGATIVE) Urine Occult Blood (Negative) Urine Nitrate (Negative) Urine Bilirubin (NEGATIVE) Urine Urobilinogen (0.2) E.U./dL Ur Leukocyte Esterase (NEGATIVE) Urine RBC (0-5/HPF) Urine WBC (0-5/HPF) Ur Squamous Epith Cells (0-5/HPF) Urine Bacteria (None) Ur Culture Indicated? SARS-CoV-2 (PCR) Negative (Negative) 02/08/22 02/08/22 02/08/22 Range/Units 17:46 17:46 17:46 WBC (4.5-11.0) X10^3/uL RBC (4.0-5.2) X10^6/uL Hgb (12.0-16.0) g/dL Hct (36-46) % MCV (80-100) fL MCH (26-34) PG MCHC (30-36) % RDW (11.6-14.8) % Plt Count (150-400) X10^3/uL Neut % (Auto) (50-75) % Lymph % (Auto) (25-40) % Lincoln % (Auto) (3-14) % Eos % (Auto) (2-4) % Baso % (Auto) (0-2) % Neut # (Auto) (9808-4281) /uL Lymph # (Auto) (9762-9173) /uL Lincoln # (Auto) (0-900) /uL Eos # (Auto) (0-450) /uL Baso # (Auto) (0-100) /uL Sodium (137-145) mmol/L Potassium (3.4-5.1) mmol/L Chloride (98-107) mmol/L Carbon Dioxide (22-32) mmol/L BUN (7-17) mg/dL Creatinine (0.52-1.04) mg/dL Estimated GFR (>60) mL/min BUN/Creatinine Ratio (6-22) Glucose (80-110) mg/dL Lactate 1.2 (0.7-2.1) mmol/L Calcium (8.4-10.2) mg/dL Magnesium (1.6-2.3) mg/dL Total Bilirubin (0.2-1.3) mg/dL AST (14-36) IU/L ALT (<35) IU/L Alkaline Phosphatase (38-126) U/L Total Creatine Kinase 41 (30-135) U/L CK-MB (CK-2) TNP CK-MB (CK-2) Rel Index TNP Troponin I 0.218 H* (0.01-0.034) ng/mL C-Reactive Protein (<1.0) mg/dL NT-Pro-B Natriuret Pep 7430 H (<125) pg/mL Total Protein (6.3-8.2) g/dL Albumin (3.5-5.0) g/dL Globulin (1.7-4.1) g/dL Albumin/Globulin Ratio (1.0-2.8) Procalcitonin 0.13 (<0.5) ng/mL Urine Color Urine Appearance Urine pH (4.5-8.0) Ur Specific Sutton (1.000-1.035) Urine Protein (Negative) Urine Glucose (UA) (Negative) g/dL Urine Ketones (NEGATIVE) Urine Occult Blood (Negative) Urine Nitrate (Negative) Urine Bilirubin (NEGATIVE) Urine Urobilinogen (0.2) E.U./dL Ur Leukocyte Esterase (NEGATIVE) Urine RBC (0-5/HPF) Urine WBC (0-5/HPF) Ur Squamous Epith Cells (0-5/HPF) Urine Bacteria (None) Ur Culture Indicated? SARS-CoV-2 (PCR) (Negative) 02/08/22 02/08/22 Range/Units 18:10 21:00 WBC (4.5-11.0) X10^3/uL RBC (4.0-5.2) X10^6/uL Hgb (12.0-16.0) g/dL Hct (36-46) % MCV (80-100) fL MCH (26-34) PG MCHC (30-36) % RDW (11.6-14.8) % Plt Count (150-400) X10^3/uL Neut % (Auto) (50-75) % Lymph % (Auto) (25-40) % Lincoln % (Auto) (3-14) % Eos % (Auto) (2-4) % Baso % (Auto) (0-2) % Neut # (Auto) (2360-4316) /uL Lymph # (Auto) (3676-2960) /uL Lincoln # (Auto) (0-900) /uL Eos # (Auto) (0-450) /uL Baso # (Auto) (0-100) /uL Sodium (137-145) mmol/L Potassium (3.4-5.1) mmol/L Chloride (98-107) mmol/L Carbon Dioxide (22-32) mmol/L BUN (7-17) mg/dL Creatinine (0.52-1.04) mg/dL Estimated GFR (>60) mL/min BUN/Creatinine Ratio (6-22) Glucose (80-110) mg/dL Lactate (0.7-2.1) mmol/L Calcium (8.4-10.2) mg/dL Magnesium (1.6-2.3) mg/dL Total Bilirubin (0.2-1.3) mg/dL AST (14-36) IU/L ALT (<35) IU/L Alkaline Phosphatase (38-126) U/L Total Creatine Kinase 38 (30-135) U/L CK-MB (CK-2) TNP CK-MB (CK-2) Rel Index TNP Troponin I 0.266 H* (0.01-0.034) ng/mL C-Reactive Protein (<1.0) mg/dL NT-Pro-B Natriuret Pep (<125) pg/mL Total Protein (6.3-8.2) g/dL Albumin (3.5-5.0) g/dL Globulin (1.7-4.1) g/dL Albumin/Globulin Ratio (1.0-2.8) Procalcitonin (<0.5) ng/mL Urine Color Yellow Urine Appearance Clear Urine pH 5.0 (4.5-8.0) Ur Specific Sutton 1.020 (1.000-1.035) Urine Protein 1+ H (Negative) Urine Glucose (UA) 1+ H (Negative) g/dL Urine Ketones Negative (NEGATIVE) Urine Occult Blood Negative (Negative) Urine Nitrate Negative (Negative) Urine Bilirubin Negative (NEGATIVE) Urine Urobilinogen 0.2 (0.2) E.U./dL Ur Leukocyte Esterase Trace H (NEGATIVE) Urine RBC 0-1/hpf (0-5/HPF) Urine WBC 0-1/hpf (0-5/HPF) Ur Squamous Epith Cells None seen (0-5/HPF) Urine Bacteria Occasional (0-1) (None) Ur Culture Indicated? Specimen cultured SARS-CoV-2 (PCR) (Negative) Imaging Data Chest x-ray: Radiologist's Impression: [address] [address] XRay Report Signed Patient: Radha Zavaleta MR#: [id number] : 1950 Acct:[id number] Age/Sex: 71 / F Date of Service: 02/08/22 Loc: ED Accession Number: [id number] ?? Procedure: XR chest 1V Ordering Provider: Lalitha Gracia D.O. PROCEDURE:? XR CHEST 1V ? INDICATIONS:? chest pain ? TECHNIQUE:? One view of the chest was acquired.? ? COMPARISON:? [facility], , XR CHEST 1V, 06/28/2021, 10:13. ? FINDINGS:? ? Surgical changes and devices:? None.? ? Lungs and pleura:? Diffuse interstitial prominence.? Loss of vascular distinctness.? Patchy bibasilar opacities more pronounced on the left.? No pneumothorax.? No substantial pleural effusion. ? Mediastinum:? Mediastinal contours appear stable.? Heart size is enlarged.? ? Bones and chest wall:? No suspicious bony lesions.? Overlying soft tissues appear unremarkable.? ? IMPRESSION:? Cardiomegaly with findings compatible with pulmonary edema/CHF.? Concurrent infectious/inflammatory process not excluded if clinically appropriate. ? ? Dictated by: Aneesh Antonio M.D. on 02/08/2022 at 19:05 ? ? Approved by: Aneesh Antonio M.D. on 02/08/2022 at 19:06 ? ECG Data Interpretation: Atrial flutter with variable AV block rate [address] elevation or depression MDM Narrative Medical decision making narrative: Appropriate for transfer, needing higher level care/cardiology/pulmonary patient on amiodarone drip. I did review this with cardiology dr hensley, recommends patient to be transferred to higher level of care <Hang Mosquera MD - Last Filed: 02/09/22 04:34> Critical Care Time Attestation: Critical Care Time 35 minutes: Critical care time is separate from other billable procedures. This critical care time includes consultation with family and other consulting doctors, review of records, and interpretation of data from labs, EKGs, imaging, etc. Discharge Plan Departure Patient Disposition: [facility] Clinical Impression: Atrial fibrillation, new onset, Acute exacerbation of CHF (congestive heart failure), Non-ST elevated myocardial infarction (non-STEMI), Intractable back pain, Chronic anticoagulation Prescriptions: No Action polyethylene glycol 3350 [Miralax] 119 GM powder 17 gm PO DAILY PRN (Reason: Constipation) Qty: 0 ondansetron HCl [Zofran] 4 mg tablet 4 mg PO Q8H PRN (Reason: nausea and vomiting) Qty: 30 1RF (DME) insulin syringe-needle U-100 [BD Insulin Syringe Ultra-Fine] 0.5 mL 31 gauge x 5/16 syringe See Rx Instructions .ROUTE .MEDSUPPLY Qty: 100 1RF Rx Instructions: Use once a day as directed clonidine HCl 0.1 mg tablet 0.1 mg PO BID Qty: 180 0RF Rx Instructions: PT WILL NEED TO BE SEEN BEFORE NEXT RENEWAL 08/05/20 losartan 50 mg tablet 50 mg PO DAILY Qty: 90 0RF Rx Instructions: PT WILL NEED TO BE SEEN BEFORE NEXT RENEWAL 08/05/20 metformin 1,000 mg tablet 1,000 mg PO BID Qty: 180 0RF Rx Instructions: PT DUE FOR APPT PRIOR TO END OF CURRENT RX. PLEASE CALL TO SCHEDULE APPT. THANKS 09/03/20 (DME) sherman reflect glucometer Qty: 1 0RF Rx Instructions: As directed Privigen 10 % solution 45 gram IV Q3W ferrous sulfate 325 mg (65 mg iron) tablet 325 mg PO BEDTIME spironolactone 50 mg tablet 50 mg PO DAILY tizanidine 4 mg capsule 4 mg PO QID PRN (Reason: Muscle Spasm) cholecalciferol (vitamin D3) 2,000 unit tablet 2,000 unit PO DAILY albuterol sulfate 90 mcg/actuation HFA aerosol inhaler 2 puff INHALATION Q4-6H PRN (Reason: Shortness Of Breath) lansoprazole [Prevacid 24Hr] 15 mg Capsule,Delayed Release(Dr/Ec) 30 mg PO BID apixaban 5 mg (74 tabs) tablets,dose pack 5 mg PO BID Qty: 74 0RF fentanyl 25 mcg/hr patch 72 hour 1 patch transdermal Q72H PRN (Reason: pain (scale score 1-3)) Qty: 5 0RF sodium chloride 3 % Solution For Nebulization 3 ml INHALATION DIRECTED Rx Instructions: use w/ nebulizer 2 x daily montelukast [Singulair] 10 mg Tablet 10 mg PO BEDTIME Zyrtec 10 mg Capsule 10 mg PO DAILY pregabalin 200 mg Capsule 200 mg PO BID atorvastatin 40 mg Tablet 40 mg PO BEDTIME ipratropium-albuterol 0.5 mg-3 mg(2.5 mg base)/3 mL Solution For Nebulization 3 ml INHALATION BID levothyroxine 75 mcg Tablet 75 mcg PO QAM nortriptyline 25 mg Capsule 25 mg PO BEDTIME epinephrine [EpiPen] 0.3 mg/0.3 mL Auto-Injector 0.3 mg IM Q5-15M PRN (Reason: Allergic Reaction) Rx Instructions: do not exceed 3 doses per episode Spiriva with HandiHaler 18 mcg Capsule, W/Inhalation Device 1 cap INHALATION DAILY Rx Instructions: puncture 1 cap using device; one dose = 2 inhalations insulin glargine 100 unit/mL solution 35 unit SUBCUT DAILY furosemide [Lasix] 20 mg tablet 20 mg PO QAM insulin lispro [Humalog KwikPen Insulin] 100 unit/mL insulin pen 4 - 8 unit SUBCUT TID pramipexole 0.5 mg tablet 0.5 mg PO BEDTIME buprenorphine 15 mcg/hour Patch Weekly 1 patch TRANSDERMAL QWEEK Rx Instructions: change wednesdays fluticasone propion-salmeterol [Wixela Inhub] 500-50 mcg/dose Blister With Device 1 inh INHALATION BID duloxetine 30 mg Capsule,Delayed Release(Dr/Ec) 30 mg PO DAILY torsemide 20 mg Tablet 20 mg PO DAILY PRN (Reason: Edema) Rx Instructions: if not taking lasix oxycodone-acetaminophen [Percocet] 10-325 mg Tablet 1 tab PO Q6H PRN (Reason: Pain (Scale Score 4-6)) acyclovir 5 % Ointment 1 applic TOPICAL 6XD PRN (Reason: Outbreak) Mucinex 1,200 mg Tablet Extended Release 12hr 1,200 mg PO BID benralizumab 30 mg/mL Auto-Injector 30 mg SUBCUT Q8W levofloxacin 750 mg tablet 750 mg PO Q24H Qty: 3 0RF prednisone 20 mg tablet 20 mg PO DAILY Qty: 3 0RF Referrals: Karin Porter MD [Primary Care Provider] - <Lalitha Gracia, - Last Filed: 02/09/22 07:15> Cosign ED Attending Cosignature Attestation: I personally evaluated and examined the patient and agree with the assessment, treatment plan, and disposition of the patient as recorded by the APC. Basil: I did get involved in patient care initially. Patient presents with chronic ongoing back pain. Here recently with MRIs. Unable to move due to severe back pain. She is on 3 L of oxygen at home have due to bronchiectasis. Starting to have some difficulty breathing as she initially is given DuoNebs to help with her breathing. She then developed AFib with RVR with heart rate into the 190s. She is taking Eliquis and has a history of AFib. She is given initial bolus of Cardizem 10 mg which told her heart into the 150s and a Cardizem drip is started. Chest x-ray troponin BNP are all pending. Patient is signed out to Dr. Mosquera I was immediately available in the department for consultation. Documentation has been reviewed. I agree with assessment and plan. <Hang Mosquera MD - Last Filed: 02/09/22 04:34> Cosign ED Attending Cosignature Attestation: I personally evaluated and examined the patient and agree with the assessment, treatment plan, and disposition of the patient as recorded by the APC.
[2022-02-08] MEDS: BISACODYL 10 MG SUPP PR (17:55)
[2022-02-08] MEDS: LACTATED RINGERS 1,000 ML 1000 ML IV (17:55)
[2022-02-08] MEDS: PANTOPRAZOLE 40 MG VIAL IV (17:55)
[2022-02-08] MEDS: LIDOCAINE PATCH 1 EACH ADH..PATCH TOP (17:56)
[2022-02-08] MEDS: methocarbamoL 500 MG TABLET 750 MG PO (17:56)
[2022-02-08] MEDS: predniSONE 20 MG TABLET 60 MG PO (17:56)
[2022-02-08 18:04] LABS: Add Manual Diff / Slide Review NO; Basophils Absolute Auto 100 /uL (0-100); Basophils Percent Auto 0.7 % (0-2); Eosinophils Absolute Auto 0 /uL (0-450); Hematocrit 35.1 % (36-46); Hemoglobin 11.4 g/dL (12.0-16.0); Lymphocytes Absolute Auto 2200 /uL (1100-4500); Lymphocytes Percent Auto 16.6 % (25-40); Mean Corpuscular HGB Conc 32.6 % (30-36); Mean Corpuscular Hemoglobin 27.4 PG (26-34); Mean Corpuscular Volume 84.3 fL (80-100); Monocytes Absolute Auto 1000 /uL (0-900); Monocytes Percent Auto 7.2 % (3-14); Neutrophils Absolute Auto 10100 /uL (1500-7000); Neutrophils Percent Auto 75.5 % (50-75); Platelet Count 374 X10^3/uL (150-400); Red Blood Cell Count 4.16 X10^6/uL (4.0-5.2); Red Cell Distribution Width 19.5 % (11.6-14.8); White Blood Cell Count 13.4 X10^3/uL (4.5-11.0)
[2022-02-08 18:14] LABS: Lactate (Lactic Acid) 1.2 mmol/L (0.7-2.1)
[2022-02-08 18:16] LABS: Alanine Aminotransferase 23 IU/L (<35); Albumin 3.8 g/dL (3.5-5.0); Alkaline Phosphatase 87 U/L (38-126); Aspartate Aminotransferase 21 IU/L (14-36); BUN Creatinine Ratio 31.6 (6-22); Bilirubin Total 0.6 mg/dL (0.2-1.3); Blood Urea Nitrogen 30 mg/dL (7-17); C-Reactive Protein Quant 7.3 mg/dL (<1.0); Calcium 9.4 mg/dL (8.4-10.2); Carbon Dioxide 29 mmol/L (22-32); Chloride 101 mmol/L (98-107); Estimated Glomerular Filt Rate > 60 mL/min (>60); Glucose 208 mg/dL (80-110); HEMOLYSIS < 15 (0-50); Magnesium 1.7 mg/dL (1.6-2.3); Potassium 4.5 mmol/L (3.4-5.1); Sodium 136 mmol/L (137-145); Total Protein 7.8 g/dL (6.3-8.2)
--- NOTE | 2022-02-08 18:21 | PC.NURSE ---
Pt requiring 4 nurse assist to turn and provide incontinence care. In and out catheter performed and UAC sent to lab. Purewick applied. Pt tremulous and HR reading 180's-- unable to get accurate reading on palpated pulse due to rate. EKG done by this RN. Vent rate 113. Dr Gracia aware. 10mg cardizem given IVP by HARSHAD Pantoja. Pt denies CP. Pt with h/o COPD and uses 3L O2. Lying flat in bed and refuses to be sat upright due to back pain which is the chief complaint of her visit. Pt has med list with 40+ medications. Pt label applied and placed in paper chart, unable to be reconciled at this time.
--- NOTE | 2022-02-08 18:27 | DI.RAD.S_ITS ---
PROCEDURE: XR CHEST 1V INDICATIONS: chest pain TECHNIQUE: One view of the chest was acquired. COMPARISON: [facility], CR, XR CHEST 1V, 06/28/2021, 10:13. FINDINGS: Surgical changes and devices: None. Lungs and pleura: Diffuse interstitial prominence. Loss of vascular distinctness. Patchy bibasilar opacities more pronounced on the left. No pneumothorax. No substantial pleural effusion. Mediastinum: Mediastinal contours appear stable. Heart size is enlarged. Bones and chest wall: No suspicious bony lesions. Overlying soft tissues appear unremarkable. IMPRESSION: Cardiomegaly with findings compatible with pulmonary edema/CHF. Concurrent infectious/inflammatory process not excluded if clinically appropriate. Dictated by: Aneesh Antonio M.D. on 02/08/2022 at 19:05 Approved by: Aneesh Antonio M.D. on 02/08/2022 at 19:06
[2022-02-08 18:29] LABS: Appearance Urine UA CLEAR; Bilirubin Urine UA NEGATIVE (NEGATIVE); Color Urine UA YELLOW; Glucose Urine UA 1+ g/dL (Negative); Ketones Urine UA NEGATIVE (NEGATIVE); Leukocyte Esterase Urine UA TRACE (NEGATIVE); Nitrite Urine UA NEGATIVE (Negative); Occult Blood Urine UA NEGATIVE (Negative); Protein Urine UA 1+ (Negative); Urobilinogen Urine UA 0.2 E.U./dL (0.2)
[2022-02-08] MEDS: dilTIAZem 5 MG/ML SDV 10 MG IV (18:34)
[2022-02-08 18:39] LABS: Creatine Kinase 41 U/L (30-135)
--- NOTE | 2022-02-08 18:47 | PC.NURSE ---
pt weaned from NRB at 15L to NC a 6L and not tolerating. Pt O2 at 86% and appears SOB. placed back on NRB. Pt continues to refuse to have HOB elevated do to back pain which has not improved after multiple medications.
[2022-02-08 18:52] LABS: NT-proBNP (BNP-Adult 18+) 7430 pg/mL (<125)
[2022-02-08 18:57] LABS: Procalcitonin 0.13 ng/mL (<0.5)
[2022-02-08 18:59] LABS: Bacteria Urine Occasional (0-1); Culture Indicated Urine Specimen Cultured; RBC Urine 0-1/HPF (0-5/HPF); Squamous Epithelial Cell Urine None Seen (0-5/HPF); WBC Urine 0-1/HPF (0-5/HPF)
[2022-02-08] MEDS: DILTIAZEM 125 MG/125 ML PIGGYBACK IV (19:00)
[2022-02-08 19:20] LABS: Troponin I 0.218 ng/mL (0.01-0.034)
[2022-02-08 19:51] LABS: COVID19 -Nasal RAPID Negative (Negative)
[2022-02-08] MEDS: FUROSEMIDE 40 MG/4 ML VIAL IV (19:58)
[2022-02-08] MEDS: AMIODARONE 150 MG/100 ML PIGGYBACK 600 MG IV (20:00)
[2022-02-08] MEDS: AMIODARONE 360 MG/200 ML PIGGYBACK 33.33 MG IV (20:13)
--- NOTE | 2022-02-08 20:38 | PC.NURSE ---
[employer] note: attempts for placement: [facility]: 1999 no beds [facility]: 2005 no beds no waitlist [facility]: 2009 no beds/no waitlist. [facility]: images pushed. Facesheet sent [facility]: 2006 no beds/no waitlist will call back at 0200 Yael Lebron: Put on waitlist, pushed images
[2022-02-08 21:20] LABS: Creatine Kinase 38 U/L (30-135)
[2022-02-08 21:40] LABS: Troponin I 0.266 ng/mL (0.01-0.034)
[2022-02-09] VITALS (18 sets, daily range): BP systolic 138–173; BP diastolic 88–109; PULSE 134–138; RESP 16–43; O2SAT 99–100
[2022-02-09] MEDS: HYDROMORPHONE 1 MG INJ IV (01:00)
[2022-02-09] MEDS: AMIODARONE 540 MG/300 ML PIGGYBACK 16.7 MG IV (01:25)
[2022-02-09] MEDS: diazePAM 10 MG/2 ML SYRINGE 5 MG IV (01:33)
--- NOTE | 2022-02-09 01:45 | PC.NURSE ---
[facility] here to transport pt, sending IV amiodarone with the patient to be given while in transport. Pt pre-medicated for pain and anxiety for transport.
== END 2022-02-09 01:55 | disposition short-term general hospital (02) ==
PROVIDERS: Emergency Medicine; Nurse Practitioner Critical Care Medicine; Emergency Provider Emergency Medicine; Family Provider Internal Medicine Infectious Disease; PCP Internal Medicine
DX: I21.4 Non-ST elevation (NSTEMI) myocardial infarction (principal); I48.91 Unspecified atrial fibrillation; I50.9 Heart failure, unspecified; Z79.01 Long term (current) use of anticoagulants; R39.15 Urgency of urination; M54.50 Low back pain, unspecified; I10 Essential (primary) hypertension; Z20.822 Contact with and (suspected) exposure to COVID-19
CPT/HCPCS: 36415; 71045; 80053; 81001; 82550; 83605; 83735; 83880; 84145; 84484; 85025; 86140; 87086; 87635; 93005; 94640; 96365; 96366; 96367; 96375; 96376; 99285; 99291; C9803; C9113; J0282; J1170; J1885; J1940; J3360

== ENCOUNTER 2022-04-24 09:17 | Inpatient (IN) | payer OTHER, SELFPAY ==
[2021-04-20 12:20] VITALS: PULSE 112
[2021-04-20 17:26] VITALS: RESP 24; O2SAT 97
[2021-06-28 12:20] VITALS: BMI 55.9
[2022-04-24] VITALS (32 sets, daily range): BP systolic 100–214; BP diastolic 41–121; PULSE 91–111; RESP 18–44; TEMP 37.3–39.3; O2SAT 89–99; BMI 46.0
--- NOTE | 2022-04-24 09:23 | DI.RAD.S_ITS ---
PROCEDURE: XR CHEST 1V INDICATIONS: hyopic TECHNIQUE: One view of the chest was acquired. COMPARISON: [facility], CR, XR CHEST 1V, 02/08/2022, 18:35. FINDINGS: Surgical changes and devices: None. Lungs and pleura: Ill-defined airspace opacities are noted in bilateral lower lung lockett. Mild pulmonary vascular congestion is also seen. No significant pleural effusions or pneumothorax. Mediastinum: Mediastinal contours appear normal. Heart size is normal. Bones and chest wall: No suspicious bony lesions. Overlying soft tissues appear unremarkable. IMPRESSION: Ill-defined opacities in bilateral lower lung lockett suggestive of bilateral lower lobe patchy infiltrates versus atelectasis. No significant pleural effusion. No gross pneumothorax. Dictated by: Josr Silva M.D. on 04/24/2022 at 10:42 Approved by: Josr Silva M.D. on 04/24/2022 at 10:43
--- NOTE | 2022-04-24 09:31 | ED.SOB ---
HPI - SOB/Dyspnea General Chief Complaint: Fever Stated Complaint: copd cough pneumonia Time Seen by Provider: 04/24/22 09:22 Source: EMS Mode of arrival: EMS Limitations: altered mental status History of Present Illness HPI Narrative: Patient is a 72-year-old female history of chronic back pain, atrial fibrillation on Eliquis, congestive heart failure NSTEMI in January 2022 presents today with increasing shortness of breath and fever. She reports cough and decreasing mental status. The patient's at bedside reports that yesterday she did not get out of bed which is very abnormal for her. She recently had a spinal injection out [facility] which she typically gets. He is not been complaining of specific back pain but has had pain all over last night she did not want to be touched he was unable to help her. 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 She is a history of sepsis. reports that he has had to increase her oxygen at home because her oxygen has been low he put her up to 6 L at home. She previously was in the ED in January went to [facility] when I asked what happened there he says that she went for AFib they were going to cardiovert her there however she spontaneous lead converted and she went home. She is since followed up with Cardiology she got started on amiodarone and other medications. Related Data Home Medications Medication Instructions Recorded Confirmed polyethylene glycol 3350 17 17 gm PO DAILY PRN Constipation ##0 06/06/17 06/28/21 gram/dose oral powder (Miralax) albuterol sulfate 90 mcg/actuation 2 puff inhalation Q4-6H PRN 05/29/19 04/24/22 aerosol inhaler Shortness Of Breath cholecalciferol (vitamin D3) 50 2,000 unit PO DAILY 05/29/19 04/24/22 mcg (2,000 unit) tablet ferrous sulfate 325 mg (65 mg 325 mg PO BEDTIME 05/29/19 04/24/22 iron) tablet immune glob,gamm(IgG) 10 %-pro-IgA 45 gram IV Q3W 05/29/19 04/24/22 0 to 50 mcg/mL intravenous solution (Privigen) spironolactone 50 mg tablet 50 mg PO DAILY 05/29/19 04/24/22 tizanidine 4 mg capsule 4 mg PO QID PRN Muscle Spasm 05/29/19 04/24/22 sodium chloride 3 % for 3 ml inhalation DIRECTED 06/05/19 04/24/22 nebulization cetirizine 10 mg capsule (Zyrtec) 10 mg PO DAILY allergies 01/20/20 04/24/22 montelukast 10 mg tablet 10 mg PO BEDTIME 01/20/20 04/24/22 (Singulair) atorvastatin 40 mg tablet 40 mg PO BEDTIME 04/20/21 04/24/22 epinephrine 0.3 mg/0.3 mL 0.3 mg IM Q5-15M PRN Allergic 04/20/21 04/24/22 injection, auto-injector (EpiPen) Reaction furosemide 20 mg tablet (Lasix) 20 mg PO QAM 04/20/21 04/24/22 insulin glargine 100 unit/mL 30 unit SUBCUT DAILY 04/20/21 04/24/22 subcutaneous solution insulin lispro 100 unit/mL 4 - 8 unit SUBCUT TID 04/20/21 04/24/22 subcutaneous pen (Humalog KwikPen (U-100) Insulin) ipratropium 0.5 mg-albuterol 3 mg 3 ml inhalation BID 04/20/21 04/24/22 (2.5 mg base)/3 mL nebulization soln levothyroxine 75 mcg tablet 75 mcg PO QAM 04/20/21 04/24/22 nortriptyline 25 mg capsule 25 mg PO BEDTIME 04/20/21 04/24/22 pregabalin 200 mg capsule 150 mg PO DAILY 04/20/21 04/24/22 tiotropium bromide 18 mcg capsule 1 cap inhalation DAILY 04/20/21 04/24/22 with inhalation device (Spiriva with HandiHaler) lansoprazole 15 mg capsule,delayed 30 mg PO BID 04/29/21 04/24/22 release (Prevacid 24Hr) acyclovir 5 % topical ointment 1 applic topical 6XD PRN Outbreak 06/28/21 04/24/22 benralizumab 30 mg/mL subcutaneous 30 mg SUBCUT Q8W 06/28/21 04/24/22 auto-injector duloxetine 30 mg capsule,delayed 30 mg PO DAILY 06/28/21 04/24/22 release fluticasone 500 mcg-salmeterol 50 1 inh inhalation BID 06/28/21 04/24/22 mcg/dose blistr powdr for inhalation (Wixela Inhub) guaifenesin 1,200 mg tablet, 1,200 mg PO BID 06/28/21 04/24/22 extended release 12 hr (Mucinex) oxycodone-acetaminophen 10 mg-325 1 tab PO Q4H PRN Pain (Scale Score 06/28/21 04/24/22 mg tablet (Percocet) 4-6) pramipexole 0.5 mg tablet 0.5 mg PO BEDTIME 06/28/21 04/24/22 amiodarone 200 mg tablet 200 mg PO DAILY 04/24/22 04/24/22 azithromycin 250 mg tablet 250 mg PO 3XW 04/24/22 04/24/22 benralizumab 30 mg/mL subcutaneous 30 mg SUBCUT Q8W 04/24/22 04/24/22 auto-injector (Fasenra Pen) docusate sodium 100 mg tablet 200 mg PO DAILY 04/24/22 04/24/22 methocarbamol 500 mg tablet 500 mg PO Q8H PRN Spasms 04/24/22 04/24/22 metoprolol succinate 25 mg 12.5 mg PO BID 04/24/22 04/24/22 tablet,extended release 24 hr omega-3 fatty acids 1,000 mg PO DAILY 04/24/22 04/24/22 prednisone 20 mg tablet 5 mg PO DAILY 04/24/22 04/24/22 Previous Rx's Medication Instructions Recorded ondansetron HCl 4 mg tablet 4 mg PO Q8H PRN nausea and 10/06/19 (Zofran) vomiting #30 tabs verio reflect glucometer #1 ea 01/28/20 insulin syringe-needle U-100 0.5 #100 ea 03/30/20 mL 31 gauge x 5/16 (BD Insulin Syringe Ultra-Fine) clonidine HCl 0.1 mg tablet 0.1 mg PO BID #180 tabs 08/05/20 losartan 50 mg tablet 50 mg PO DAILY #90 tabs 08/05/20 metformin 1,000 mg tablet 1,000 mg PO BID #180 tabs 09/03/20 apixaban 5 mg (74 tabs) tablets in 5 mg PO BID #74 ea 05/01/21 a dose pack levofloxacin 750 mg tablet 750 mg PO Q24H #3 tabs 06/30/21 fentanyl 25 mcg/hr transdermal 1 patch transdermal Q72H PRN pain 02/05/22 patch (scale score 1-3) #5 ea Allergies Allergy/AdvReac Type Severity Reaction Status Date / Time hydroxychloroquine Allergy Unknown Verified 04/24/22 09:27 [HYDROXYCHLOROQUINE] promethazine [From Phenergan] Allergy Agitated Verified 04/24/22 09:27 cefepime AdvReac Severe pruritis Verified 04/24/22 09:27 Patient History Medical History Abnormal chest xray (~1979) Anemia Ankle pain Asthma (~1959) Bronchiectasis (~2006) Cervical spine disease Chronic back pain Colon polyps (~2015) Degenerative joint disease of spine (~2001) Diabetes mellitus, type II (~2009) Eczema Fibromyalgia Foot pain Hoarseness Hyperlipidemia Hypertension Hypothyroidism Migraines (~1964) 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 Osteopenia Pneumonia Pneumonia Recurrent sinusitis (~1970) Restless leg syndrome Shoulder pain (~03/2018) Sleep apnea Wears glasses Surgical History Anesthesia History of carpal tunnel release History of cataract removal with insertion of prosthetic lens (~2014) History of section History of laminectomy (~2002) History of spinal fusion (~2012) History of thumb surgery Family History Father Stroke Mother Hypertension Brother Cerebral aneurysm Prostate cancer Diabetes mellitus Hypertension Stroke Brother Arthritis Hyperlipidemia Hypertension Sister History of kidney cancer Hypertension Grandfather Cancer Grandmother Cancer Other Family history non-contributory Social History household members: spouse Smoking Status: Never smoker alcohol intake: current Smoking Status: Never smoker alcohol intake frequency: holidays/special occasions only Substance Use Type: does not use Exam Initial Vital Signs Initial Vital Signs: Vital Signs Temperature 99.6 F 04/24/22 09:20 Pulse Rate 96 H 04/24/22 09:20 Respiratory Rate 24 04/24/22 09:20 Blood Pressure 161/85 H 04/24/22 09:20 Pulse Oximetry 90 L 04/24/22 09:20 Oxygen Delivery Method 04/24/22 09:20 Oxygen Flow Rate 4 04/24/22 09:20 GENERAL: Alert 72-year-old female appears uncomfortable difficulty breathing HEENT: Head atraumatic,EOMI, pupils reactive, face symmetric, moist mucous membranes CARDIOVASCULAR: Tachycardic no murmurs regular RESPIRATORY: Tachypneic coarse bilaterally ABDOMEN: Soft, nontender. Normoactive bowel sounds all 4 quadrants. No guarding or rebound. EXTREMITIES: Normal range of motion, no clubbing or edema. Neurovascularly intact NEUROLOGICAL: Alert and oriented to person and age able to lift all extremities SKIN: Warm, dry, no laceration, no petechiae, no rashes or lesions. Course Orders Ordered: ED Orders 04/24/22 12:08 CT head/brain wo con Stat Haloperidol (Haloperidol 5 Mg/Ml Vial) 1 mg IV Q4HR PRN PRN Reason: nausea vomiting Metoclopramide HCl (Metoclopramide 10 Mg/2 Ml Inj) 10 mg IV Q6HR PRN PRN Reason: Nausea And Vomiting Ondansetron HCl (Ondansetron 4 Mg/2 Ml Inj) 4 mg IV Q6HR PRN PRN Reason: Nausea And Vomiting Last Admin: 04/24/22 17:36 Dose: 4 mg Documented By: KATJA Discontinued Medications Acetaminophen (Acetaminophen 650 Mg Supp) 650 mg NJ NOW ONE Stop: 04/24/22 12:23 Last Admin: 04/24/22 12:50 Dose: 650 mg Documented By: CHALRES Hydromorphone HCl (Hydromorphone 0.5 Mg Inj) 1 mg IV NOW ONE Stop: 04/24/22 13:44 Last Admin: 04/24/22 13:49 Dose: 1 mg Documented By: CHARLES Levofloxacin (Levaquin) 750 mg in 150 mls @ 100 mls/hr IV NOW ONE Stop: 04/24/22 12:42 Last Infusion: 04/24/22 13:34 Dose: 0 mls/hr Documented By: Admin: 04/24/22 11:33 Dose: 100 mls/hr Documented By: CHARLES Meropenem 500 mg/ Sodium (Chloride) 100 mls @ 200 mls/hr IV NOW ONE Stop: 04/24/22 13:15 Last Infusion: 04/24/22 14:44 Dose: 0 mls/hr Documented By: Admin: 04/24/22 13:34 Dose: 200 mls/hr Documented By: CHAVEZ Sodium Chloride (Normal Saline 0.9%) 1,000 mls @ 1,000 mls/hr IV BOLUS ONE Stop: 04/24/22 14:41 Last Admin: 04/24/22 13:50 Dose: 1,000 mls/hr Documented By: CHARLES Ondansetron HCl (Ondansetron 4 Mg/2 Ml Inj) 4 mg IV NOW ONE Stop: 04/24/22 18:54 Vital Signs Vital signs: Vital Signs - 8 hr 04/24/22 11:30 04/24/22 11:40 04/24/22 11:40 Temperature 102.4 F H 102.6 F H Pulse Rate 100 H 100 H Respiratory Rate 21 27 H Blood Pressure 177/79 H Pulse Oximetry 89 L 04/24/22 12:10 04/24/22 12:00 04/24/22 12:27 Temperature 102.7 F H 102.7 F H Pulse Rate 100 H 111 H 104 H Respiratory Rate 20 22 Blood Pressure 177/79 H Pulse Oximetry 95 97 04/24/22 12:27 04/24/22 12:30 04/24/22 12:30 Temperature 102.7 F H Pulse Rate 102 H Respiratory Rate 21 Blood Pressure 110/71 129/83 Pulse Oximetry 97 04/24/22 12:37 04/24/22 12:37 04/24/22 13:00 Temperature 102.6 F H Pulse Rate 102 H 104 H Respiratory Rate 31 H 38 H Blood Pressure 125/81 Pulse Oximetry 99 94 04/24/22 12:00 Temperature Pulse Rate 104 H Respiratory Rate 18 Blood Pressure Pulse Oximetry 95 MDM - SOB/Dyspnea Lab Data Result diagrams: 04/24/22 09:55 04/24/22 09:55 Labs: Lab Results 04/24/22 04/24/22 04/24/22 Range/Units 09:25 09:52 09:55 WBC (4.5-11.0) X10^3/uL RBC (4.0-5.2) X10^6/uL Hgb (12.0-16.0) g/dL Hct (36-46) % MCV (80-100) fL MCH (26-34) PG MCHC (30-36) % RDW (11.6-14.8) % Plt Count (150-400) X10^3/uL Neut % (Auto) (50-75) % Lymph % (Auto) (25-40) % Sherman % (Auto) (3-14) % Eos % (Auto) (2-4) % Baso % (Auto) (0-2) % Neut # (Auto) (2900-2853) /uL Lymph # (Auto) (5554-1746) /uL Sherman # (Auto) (0-900) /uL Eos # (Auto) (0-450) /uL Baso # (Auto) (0-100) /uL PT 14.1 H (10.1-12.7) SECONDS INR 1.2 (0.9-1.3) APTT (26-36) SECONDS ABG pH 7.44 (7.35-7.45) ABG pCO2 41.8 (35-45) mmHg ABG pO2 72 L (80-100) mmHg ABG HCO3 28 H (22-26) mmol/L ABG Total CO2 29 (21-31) mmol/L ABG O2 Saturation 95 (95-100) % ABG Base Excess 4.0 H (-2-2) mmol/L FiO2 40 Sodium (137-145) mmol/L Potassium (3.4-5.1) mmol/L Chloride (98-107) mmol/L Carbon Dioxide (22-32) mmol/L BUN (7-17) mg/dL Creatinine (0.52-1.04) mg/dL Estimated GFR (>60) mL/min BUN/Creatinine Ratio (6-22) Glucose (80-110) mg/dL Lactate (0.7-2.1) mmol/L Calcium (8.4-10.2) mg/dL Total Bilirubin (0.2-1.3) mg/dL AST (14-36) IU/L ALT (<35) IU/L Alkaline Phosphatase (38-126) U/L Total Creatine Kinase (30-135) U/L CK-MB (CK-2) CK-MB (CK-2) Rel Index Troponin I (0.01-0.034) ng/mL NT-Pro-B Natriuret Pep (<125) pg/mL Total Protein (6.3-8.2) g/dL Albumin (3.5-5.0) g/dL Globulin (1.7-4.1) g/dL Albumin/Globulin Ratio (1.0-2.8) Procalcitonin (<0.5) ng/mL Urine Color Urine Appearance Urine pH (4.5-8.0) Ur Specific Rayle (1.000-1.035) Urine Protein (Negative) Urine Glucose (UA) (Negative) g/dL Urine Ketones (NEGATIVE) Urine Occult Blood (Negative) Urine Nitrate (Negative) Urine Bilirubin (NEGATIVE) Urine Urobilinogen (0.2) E.U./dL Ur Leukocyte Esterase (NEGATIVE) Urine RBC (0-5/HPF) Urine WBC (0-5/HPF) Ur Squamous Epith Cells (0-5/HPF) Urine Bacteria (None) Ur Culture Indicated? Chlamy pneumoniae PCR Not detected (Not Detect) Adenovirus (PCR) Not detected (Not Detect) B. pertussis DNA (PCR) Not detected (Not Detecte) B.parapertussis DNA PCR Not detected (Not Detecte) Coronavirus OC43 (PCR) Not detected (Not Detect) Coronavirus HKU1 (PCR) Not detected (Not Detect) Coronavirus 229E (PCR) Not detected (Not Detect) SARS-CoV-2 (PCR) Not detected (Not Detecte) Coronavirus NL63 (PCR) Not detected (Not Detect) Human Metapneumovir PCR Not detected (Not Detect) Influenza Type A (PCR) Not detected (Not Detect) Influenza Type B (PCR) Not detected (Not Detect) M. pneumoniae (PCR) Not detected (Not Detect) Parainfluenza 1 (PCR) Not detected (Not Detect) Parainfluenza 2 (PCR) Not detected (Not Detect) Parainfluenza 3 (PCR) Not detected (Not Detect) Parainfluenza 4 (PCR) Not detected (Not Detect) RSV (PCR) Not detected (Not Detect) Entero/Rhino (PCR) Not detected (Not Detect) 04/24/22 04/24/22 04/24/22 Range/Units 09:55 09:55 09:55 WBC 13.7 H (4.5-11.0) X10^3/uL RBC 3.86 L (4.0-5.2) X10^6/uL Hgb 10.3 L (12.0-16.0) g/dL Hct 32.2 L (36-46) % MCV 83.5 (80-100) fL MCH 26.8 (26-34) PG MCHC 32.1 (30-36) % RDW 19.1 H (11.6-14.8) % Plt Count 531 H (150-400) X10^3/uL Neut % (Auto) 80.1 H (50-75) % Lymph % (Auto) 9.0 L (25-40) % Sherman % (Auto) 10.3 (3-14) % Eos % (Auto) 0.0 L (2-4) % Baso % (Auto) 0.6 (0-2) % Neut # (Auto) 27721 H (5944-1202) /uL Lymph # (Auto) 1200 (7314-5650) /uL Sherman # (Auto) 1400 H (0-900) /uL Eos # (Auto) 0 (0-450) /uL Baso # (Auto) 100 (0-100) /uL PT (10.1-12.7) SECONDS INR (0.9-1.3) APTT 35 (26-36) SECONDS ABG pH (7.35-7.45) ABG pCO2 (35-45) mmHg ABG pO2 (80-100) mmHg ABG HCO3 (22-26) mmol/L ABG Total CO2 (21-31) mmol/L ABG O2 Saturation (95-100) % ABG Base Excess (-2-2) mmol/L FiO2 Sodium (137-145) mmol/L Potassium (3.4-5.1) mmol/L Chloride (98-107) mmol/L Carbon Dioxide (22-32) mmol/L BUN (7-17) mg/dL Creatinine (0.52-1.04) mg/dL Estimated GFR (>60) mL/min BUN/Creatinine Ratio (6-22) Glucose (80-110) mg/dL Lactate (0.7-2.1) mmol/L Calcium (8.4-10.2) mg/dL Total Bilirubin (0.2-1.3) mg/dL AST (14-36) IU/L ALT (<35) IU/L Alkaline Phosphatase (38-126) U/L Total Creatine Kinase (30-135) U/L CK-MB (CK-2) CK-MB (CK-2) Rel Index Troponin I (0.01-0.034) ng/mL NT-Pro-B Natriuret Pep 2100 H (<125) pg/mL Total Protein (6.3-8.2) g/dL Albumin (3.5-5.0) g/dL Globulin (1.7-4.1) g/dL Albumin/Globulin Ratio (1.0-2.8) Procalcitonin (<0.5) ng/mL Urine Color Urine Appearance Urine pH (4.5-8.0) Ur Specific Rayle (1.000-1.035) Urine Protein (Negative) Urine Glucose (UA) (Negative) g/dL Urine Ketones (NEGATIVE) Urine Occult Blood (Negative) Urine Nitrate (Negative) Urine Bilirubin (NEGATIVE) Urine Urobilinogen (0.2) E.U./dL Ur Leukocyte Esterase (NEGATIVE) Urine RBC (0-5/HPF) Urine WBC (0-5/HPF) Ur Squamous Epith Cells (0-5/HPF) Urine Bacteria (None) Ur Culture Indicated? Chlamy pneumoniae PCR (Not Detect) Adenovirus (PCR) (Not Detect) B. pertussis DNA (PCR) (Not Detecte) B.parapertussis DNA PCR (Not Detecte) Coronavirus OC43 (PCR) (Not Detect) Coronavirus HKU1 (PCR) (Not Detect) Coronavirus 229E (PCR) (Not Detect) SARS-CoV-2 (PCR) (Not Detecte) Coronavirus NL63 (PCR) (Not Detect) Human Metapneumovir PCR (Not Detect) Influenza Type A (PCR) (Not Detect) Influenza Type B (PCR) (Not Detect) M. pneumoniae (PCR) (Not Detect) Parainfluenza 1 (PCR) (Not Detect) Parainfluenza 2 (PCR) (Not Detect) Parainfluenza 3 (PCR) (Not Detect) Parainfluenza 4 (PCR) (Not Detect) RSV (PCR) (Not Detect) Entero/Rhino (PCR) (Not Detect) 04/24/22 04/24/22 04/24/22 Range/Units 09:55 09:55 10:23 WBC (4.5-11.0) X10^3/uL RBC (4.0-5.2) X10^6/uL Hgb (12.0-16.0) g/dL Hct (36-46) % MCV (80-100) fL MCH (26-34) PG MCHC (30-36) % RDW (11.6-14.8) % Plt Count (150-400) X10^3/uL Neut % (Auto) (50-75) % Lymph % (Auto) (25-40) % Sherman % (Auto) (3-14) % Eos % (Auto) (2-4) % Baso % (Auto) (0-2) % Neut # (Auto) (8852-6216) /uL Lymph # (Auto) (4390-9901) /uL Sherman # (Auto) (0-900) /uL Eos # (Auto) (0-450) /uL Baso # (Auto) (0-100) /uL PT (10.1-12.7) SECONDS INR (0.9-1.3) APTT (26-36) SECONDS ABG pH (7.35-7.45) ABG pCO2 (35-45) mmHg ABG pO2 (80-100) mmHg ABG HCO3 (22-26) mmol/L ABG Total CO2 (21-31) mmol/L ABG O2 Saturation (95-100) % ABG Base Excess (-2-2) mmol/L FiO2 Sodium 137 (137-145) mmol/L Potassium 4.2 (3.4-5.1) mmol/L Chloride 97 L (98-107) mmol/L Carbon Dioxide 30 (22-32) mmol/L BUN 12 (7-17) mg/dL Creatinine 0.77 (0.52-1.04) mg/dL Estimated GFR > 60 (>60) mL/min BUN/Creatinine Ratio 15.6 (6-22) Glucose 157 H (80-110) mg/dL Lactate 1.2 (0.7-2.1) mmol/L Calcium 8.7 (8.4-10.2) mg/dL Total Bilirubin 0.4 (0.2-1.3) mg/dL AST 19 (14-36) IU/L ALT 15 (<35) IU/L Alkaline Phosphatase 97 (38-126) U/L Total Creatine Kinase 55 (30-135) U/L CK-MB (CK-2) TNP CK-MB (CK-2) Rel Index TNP Troponin I 0.033 (0.01-0.034) ng/mL NT-Pro-B Natriuret Pep (<125) pg/mL Total Protein 7.3 (6.3-8.2) g/dL Albumin 3.6 (3.5-5.0) g/dL Globulin 3.7 (1.7-4.1) g/dL Albumin/Globulin Ratio 1.0 (1.0-2.8) Procalcitonin 0.06 (<0.5) ng/mL Urine Color Yellow Urine Appearance Clear Urine pH 5.0 (4.5-8.0) Ur Specific Rayle 1.020 (1.000-1.035) Urine Protein Trace H (Negative) Urine Glucose (UA) Negative (Negative) g/dL Urine Ketones 2+ H (NEGATIVE) Urine Occult Blood Negative (Negative) Urine Nitrate Positive H (Negative) Urine Bilirubin Negative (NEGATIVE) Urine Urobilinogen 0.2 (0.2) E.U./dL Ur Leukocyte Esterase Negative (NEGATIVE) Urine RBC None seen (0-5/HPF) Urine WBC 1-5/hpf (0-5/HPF) Ur Squamous Epith Cells 0-1 /hpf (0-5/HPF) Urine Bacteria Many (>30) H (None) Ur Culture Indicated? Specimen cultured Chlamy pneumoniae PCR (Not Detect) Adenovirus (PCR) (Not Detect) B. pertussis DNA (PCR) (Not Detecte) B.parapertussis DNA PCR (Not Detecte) Coronavirus OC43 (PCR) (Not Detect) Coronavirus HKU1 (PCR) (Not Detect) Coronavirus 229E (PCR) (Not Detect) SARS-CoV-2 (PCR) (Not Detecte) Coronavirus NL63 (PCR) (Not Detect) Human Metapneumovir PCR (Not Detect) Influenza Type A (PCR) (Not Detect) Influenza Type B (PCR) (Not Detect) M. pneumoniae (PCR) (Not Detect) Parainfluenza 1 (PCR) (Not Detect) Parainfluenza 2 (PCR) (Not Detect) Parainfluenza 3 (PCR) (Not Detect) Parainfluenza 4 (PCR) (Not Detect) RSV (PCR) (Not Detect) Entero/Rhino (PCR) (Not Detect) Imaging Data Chest x-ray: Radiologist's Impression: Ryan JULIENNE [id number] XRay Report Signed Patient: Radha Zavaleta MR#: [id number] : 1950 Acct:[id number] Age/Sex: 72 / F Date of Service: 04/24/22 Loc: ED Accession Number: [id number] ?? Procedure: XR chest 1V Ordering Provider: Lalitha Gracia D.O. PROCEDURE:? XR CHEST 1V ? INDICATIONS:? hyopic ? TECHNIQUE:? One view of the chest was acquired.? ? COMPARISON:? [facility], , XR CHEST 1V, 02/08/2022, 18:35. ? FINDINGS:? ? Surgical changes and devices:? None.? ? Lungs and pleura:? Ill-defined airspace opacities are noted in bilateral lower lung lockett.? Mild pulmonary vascular congestion is also seen.? No significant pleural effusions or pneumothorax.? ? Mediastinum:? Mediastinal contours appear normal.? Heart size is normal.? ? Bones and chest wall:? No suspicious bony lesions.? Overlying soft tissues appear unremarkable.? ? IMPRESSION:? Ill-defined opacities in bilateral lower lung lockett suggestive of bilateral lower lobe patchy infiltrates versus atelectasis.? No significant pleural effusion.? No gross pneumothorax. ? ? Dictated by: Josr Silva M.D. on 04/24/2022 at 10:42 ? ? Approved by: Josr Silva M.D. on 04/24/2022 at 10:43 ? CT scan - head: Radiologist's Impression: CT Scan Report Signed Patient: Radha Zavaleta MR#: [id number] : 1950 Acct:[id number] Age/Sex: 72 / F Date of Service: 04/24/22 Loc: ED Accession Number: [id number] ?? Procedure: CT head/brain wo con Ordering Provider: Lalitha Gracia D.O. PROCEDURE:? CT HEAD/BRAIN WO CON ? INDICATIONS:? decreased mental status ? TECHNIQUE:? Noncontrast 4.5 mm thick angled axial sections acquired from the foramen magnum to the vertex, with coronal and sagittal reformats.? For radiation dose reduction, the following was used:? automated exposure control, adjustment of mA and/or kV according to patient size.? ? COMPARISON:? None. ? FINDINGS:? Image quality:? Excellent.? ? CSF spaces:? Basal cisterns are patent.? No extra-axial fluid collections.? The ventricles are symmetric in size and shape.? ? Brain:? No intracranial bleeds or masses.? Densely calcified structure is noted in posterior left occipital region adjacent to the midline and measures up to 1.4 x 1.2 x 1.7 cm in size.? There is cerebral volume loss for age, with resultant ventricular and sulcal prominence.? There are periventricular and deep white matter chronic small vessel ischemic changes.? There is intracranial internal carotid artery atherosclerosis.? ? Skull and face:? Calvarium and visualized facial bones appear intact, without suspicious lesions.? ? Sinuses:? Fluid level in bilateral maxillary sinuses are seen. ? IMPRESSION:? ? 1. No CT evidence of acute intracranial abnormalities.? ? 2. Age related volume loss and [id number] white matter chronic small vessel ischemic changes. ? 3. Densely calcified structure is noted in left occipital region adjacent to the midline most consistent with a calcified meningioma. ? ? 4. Bilateral maxillary sinusitis.? ? Dictated by: Josr Silva M.D. on 04/24/2022 at 13:02 ? ? Approved by: Josr Silva M.D. on 04/24/2022 at 13:04 ? ECG Data Interpretation: Normal sinus rhythm rate 95 NJ interval 256 QRS 72 for 60 to artifact noted MDM Narrative Medical decision making narrative: Patient is a 72-year-old female history of multiple comorbidities chronic lung infections chronic back infections presenting today with altered mental status concern for sepsis. She is found have UTI with nitrates in her urine she is mild leukocytosis of 13. Lactate is 1.2 and a negative procalcitonin. However her urinalysis does show nitrates and and bacteria. She also has pretty significant decreased mental status although she still is able to talk and answer some questions. She is requiring high-flow nasal cannula. BiPAP was considered but she is not significantly hypercapnic is still responding. X-ray does show ill-defined opacities in bilateral lower lung lockett. His chronic underlying lung disease and issues. She is on Eliquis this is unlikely to be pulmonary embolism. She is requiring more oxygen than usual raising question of possible underlying pneumonia or bronchiectasis. CT of her head was done for decreasing mental status and increasing sleep yesterday. Head CT is negative. She is also moving all extremities without focal deficits unlikely to be stroke. She is not hypotensive but has been tachycardic and febrile in the emergency department. She was given IV fluids, Levaquin due to allergies along with meropenem. Nurse gave her suppository Tylenol was not sure if she was able to swallow due to her mental status. She is not given septic IV fluids due to hemodynamically stable normal lactate and normal procalcitonin. Dr. Montalvo updated patient's symptoms test results and kindly accepts patient. [facility] CC: Decreasing mental status Complicating co-morbidities: Chronic bronchiectasis, frequent sepsis, chronic back pain, atrial fibrillation on Eliquis, diabetes Corroborating data: Data collected from: Medical records reviewed: Previous ED visits Differential considered: Sepsis intracranial hemorrhage, hypoxia Exam documented above, pertinent findings include: Decreasing mental status but awake restless, coarse breath sounds Lab Test results independently reviewed as above. Independently reviewed EKG as above Imaging studies independently reviewed: Consultations: Hospitalist who accepts Treatments: IV fluids, Tylenol, Levaquin, Mirapex Re-evaluations: Discussion: Diagnosis: Sepsis, UTI Disposition: see below, along with detailed discharge instructions that have been reviewed with patient as well as indications for ED re-evaluation and additional outpatient follow up Discharge Plan Departure Patient Disposition: Admitted As Inpatient Clinical Impression: Sepsis, Acute UTI Admit Date/Time: 04/24/22 13:15 Admit Provider: Sherry Charles
[2022-04-24 10:03] LABS: Fractionated Inspired Oxygen 40; HCO3 ABG 28 mmol/L (22-26); Oxygen Saturation ABG 95 % (95-100); PCO2 ABG 41.8 mmHg (35-45); PO2 ABG 72 mmHg (80-100); TCO2 ABG 29 mmol/L (21-31); pH ABG 7.44 (7.35-7.45)
[2022-04-24 10:07] LABS: Add Manual Diff / Slide Review NO; Basophils Absolute Auto 100 /uL (0-100); Basophils Percent Auto 0.6 % (0-2); Eosinophils Absolute Auto 0 /uL (0-450); Hematocrit 32.2 % (36-46); Hemoglobin 10.3 g/dL (12.0-16.0); Lymphocytes Absolute Auto 1200 /uL (1100-4500); Mean Corpuscular HGB Conc 32.1 % (30-36); Mean Corpuscular Hemoglobin 26.8 PG (26-34); Mean Corpuscular Volume 83.5 fL (80-100); Monocytes Absolute Auto 1400 /uL (0-900); Monocytes Percent Auto 10.3 % (3-14); Neutrophils Absolute Auto 11000 /uL (1500-7000); Neutrophils Percent Auto 80.1 % (50-75); Platelet Count 531 X10^3/uL (150-400); Red Blood Cell Count 3.86 X10^6/uL (4.0-5.2); Red Cell Distribution Width 19.1 % (11.6-14.8); White Blood Cell Count 13.7 X10^3/uL (4.5-11.0)
[2022-04-24 10:15] LABS: INR 1.2 (0.9-1.3); Prothrombin Time 14.1 SECONDS (10.1-12.7)
[2022-04-24 10:19] LABS: Alanine Aminotransferase 15 IU/L (<35); Albumin 3.6 g/dL (3.5-5.0); Alkaline Phosphatase 97 U/L (38-126); Aspartate Aminotransferase 19 IU/L (14-36); BUN Creatinine Ratio 15.6 (6-22); Bilirubin Total 0.4 mg/dL (0.2-1.3); Blood Urea Nitrogen 12 mg/dL (7-17); Calcium 8.7 mg/dL (8.4-10.2); Carbon Dioxide 30 mmol/L (22-32); Chloride 97 mmol/L (98-107); Creatine Kinase 55 U/L (30-135); Estimated Glomerular Filt Rate > 60 mL/min (>60); Globulin 3.7 g/dL (1.7-4.1); Glucose 157 mg/dL (80-110); HEMOLYSIS < 15 (0-50); Lactate (Lactic Acid) 1.2 mmol/L (0.7-2.1); PTT Partial Thromboplastin Tim 35 SECONDS (26-36); Potassium 4.2 mmol/L (3.4-5.1); Sodium 137 mmol/L (137-145); Total Protein 7.3 g/dL (6.3-8.2)
[2022-04-24 10:26] LABS: Appearance Urine UA CLEAR; Bilirubin Urine UA NEGATIVE (NEGATIVE); Color Urine UA YELLOW; Glucose Urine UA NEGATIVE (Negative); Ketones Urine UA 2+ (NEGATIVE); Leukocyte Esterase Urine UA NEGATIVE (NEGATIVE); Nitrite Urine UA POSITIVE (Negative); Occult Blood Urine UA NEGATIVE (Negative); Protein Urine UA TRACE (Negative); Urobilinogen Urine UA 0.2 E.U./dL (0.2)
[2022-04-24 10:28] LABS: NT-proBNP (BNP-Adult 18+) 2100 pg/mL (<125)
[2022-04-24 10:29] LABS: RBC Urine None Seen (0-5/HPF); WBC Urine 1-5/HPF (0-5/HPF)
[2022-04-24 10:30] LABS: Bacteria Urine Many (>30); Culture Indicated Urine Specimen Cultured; Squamous Epithelial Cell Urine 0-1 /HPF (0-5/HPF)
[2022-04-24 10:30] LABS: Troponin I 0.033 ng/mL (0.01-0.034)
[2022-04-24 10:35] LABS: Procalcitonin 0.06 ng/mL (<0.5)
[2022-04-24 11:01] LABS: Adenovirus Not Detected (Not Detect); B. parapertussis Not Detected (Not Detecte); Bordetella pertussis Not Detected (Not Detecte); Chlamydophila pneumoniae Not Detected (Not Detect); Coronavirus 229E Not Detected (Not Detect); Coronavirus HKU1 Not Detected (Not Detect); Coronavirus NL 63 Not Detected (Not Detect); Coronavirus OC43 Not Detected (Not Detect); Human Metapneumovirus Not Detected (Not Detect); Human Rhinovirus/Enterovirus Not Detected (Not Detect); Influenza A Not Detected (Not Detect); Influenza B Not Detected (Not Detect); Mycoplasma pneumoniae Not Detected (Not Detect); Parainfluenza Virus 1 Not Detected (Not Detect); Parainfluenza Virus 2 Not Detected (Not Detect); Parainfluenza Virus 3 Not Detected (Not Detect); Parainfluenza Virus 4 Not Detected (Not Detect); Respiratory Syncytial Virus Not Detected (Not Detect); SARS- CoV-2 Not Detected (Not Detecte)
[2022-04-24] MEDS: levoFLOXacin 750 MG/150 ML PIGGYBACK 100 MG IV (11:33)
--- NOTE | 2022-04-24 12:08 | DI.CT.S_ITS ---
PROCEDURE: CT HEAD/BRAIN WO CON INDICATIONS: decreased mental status TECHNIQUE: Noncontrast 4.5 mm thick angled axial sections acquired from the foramen magnum to the vertex, with coronal and sagittal reformats. For radiation dose reduction, the following was used: automated exposure control, adjustment of mA and/or kV according to patient size. COMPARISON: None. FINDINGS: Image quality: Excellent. CSF spaces: Basal cisterns are patent. No extra-axial fluid collections. The ventricles are symmetric in size and shape. Brain: No intracranial bleeds or masses. Densely calcified structure is noted in posterior left occipital region adjacent to the midline and measures up to 1.4 x 1.2 x 1.7 cm in size. There is cerebral volume loss for age, with resultant ventricular and sulcal prominence. There are periventricular and deep white matter chronic small vessel ischemic changes. There is intracranial internal carotid artery atherosclerosis. Skull and face: Calvarium and visualized facial bones appear intact, without suspicious lesions. Sinuses: Fluid level in bilateral maxillary sinuses are seen. IMPRESSION: 1. No CT evidence of acute intracranial abnormalities. 2. Age related volume loss and [id number] white matter chronic small vessel ischemic changes. 3. Densely calcified structure is noted in left occipital region adjacent to the midline most consistent with a calcified meningioma. 4. Bilateral maxillary sinusitis. Dictated by: Josr Silva M.D. on 04/24/2022 at 13:02 Approved by: Josr Silva M.D. on 04/24/2022 at 13:04
[2022-04-24] MEDS: ACETAMINOPHEN 650 MG SUPP PR (12:50)
[2022-04-24] MEDS: MEROPENEM 500 MG in SODIUM CHLORIDE 0.9% 100 ML 200 MG IV (13:34)
[2022-04-24] MEDS: HYDROMORPHONE 0.5 MG INJ 1 MG IV (13:49)
[2022-04-24] MEDS: SODIUM CHLORIDE 0.9% 1,000 ML 1000 ML IV (13:50)
[2022-04-24 14:16] LABS: HCO3 ABG 28 mmol/L (22-26); PCO2 ABG 40.8 mmHg (35-45); PO2 ABG 65 mmHg (80-100); TCO2 ABG 29 mmol/L (21-31); pH ABG 7.44 (7.35-7.45)
[2022-04-24 14:17] LABS: Fractionated Inspired Oxygen 65; Oxygen Saturation ABG 93 % (95-100)
--- NOTE | 2022-04-24 16:55 | PC.NURSE ---
Admission to Acute Care: Patient arrived at 1620 to room 216. Transferred from stretcher to bed via slide board. Patient's at bedside. R.T. set patient back up on heated high flow 45L at 60% fio2, saturation at 93%. Denies pain at rest, but reports chronic back pain with movement. Oriented to self, drowsy, knew month not year or today's date. Shay in place, draining. Bed alarm activated for fall precautions and call light placed within reach. Dr. Gilbert was notified upon patient's arrival to acute care. Will continue to monitor.
[2022-04-24] MEDS: ONDANSETRON 4 MG/2 ML INJ IV (17:36)
[2022-04-24 20:32] LABS: Hemoglobin A1C% w Est Avg Glu 7.2 % (4.0-6.0)
[2022-04-24] MEDS: METOCLOPRAMIDE 10 MG/2 ML INJ IV (20:44)
--- NOTE | 2022-04-24 22:06 | P.HP_ITS ---
History of Present Illness History of Present Illness Date Patient Seen: 04/24/22 Time Patient Seen: 22:06 Chief complaint: copd cough pneumonia Narrative: Radha Zavaleta is a 71-year-old female with a history of common variable immune deficiency, atrial fibrillation anticoagulated on Eliquis, NSTEMI in January 2022 diabetes type 2, asthma with childhood exposure to secondary tobacco, hypertension and hyperlipidemia presented today to the ED with increased shor tness of breath and per her , altered mental status. provides much of the history is the patient is on high-flow nasal oxygen and is unable to provide much of a history. On Sunday she stated she was achy she had no fever he did a home test and her COVID was negative. On the day of admission he states that she needed help getting out of bed he bumped her up from 3 L to 6 L of home oxygen and then took her temperature and it was 100.8. 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 He also states that she is been incontinent since Sunday which would have been 2 days ago. She also complains of nausea. Chest x-ray ordered in the ED noted ill-defined opacities bilateral lower lung lockett concerning for infiltrates versus atelectasis. Head CT did not report any acute intracranial process. T-max was 102.7? currently her temp is 99.2?, blood pressure 100/51 heart rate 91 respiratory rate 18 oxygen saturation 93% with an FiO2 of 60 and a rate of 45 she weighs 107 kg with a BMI of 46. Her white count is notably elevated at 13.7 she is mildly anemic with a hemoglobin and hematocrit of 10.3 and 32.2 platelet count 531 she is a left shift of 11,000 currently her ABG pH is 7.44 ABG pCO2 is 40.8 ABG PO2 65 ABG bicarb 28 ABG oxygen saturation is 93% with a base excess of 4 she has an elevated glucose of 157 and A1c of 7.2 lactate was 1.2 proBNP was 2100 procalcitonin was negative UA was positive for nitrates and will be cultured respiratory film array viral PCRs including COVID-19 are all negative. Patient History Medical History Abnormal chest xray (~1979) Anemia Ankle pain Anticoagulated Asthma (~1960) Bronchiectasis (~2006) Cervical spine disease Chronic back pain Colon polyps (~2015) Degenerative joint disease of spine (~2001) Diabetes mellitus, type II (~2009) Eczema Fibromyalgia Foot pain Hoarseness Hyperlipidemia Hypertension Hypothyroidism Migraines (~1964) 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 Osteopenia Pneumonia Pneumonia Recurrent sinusitis (~1970) Restless leg syndrome Shoulder pain (~03/2018) Sleep apnea Wears glasses Surgical History Anesthesia History of carpal tunnel release History of cataract removal with insertion of prosthetic lens (~2014) History of section History of laminectomy (~2002) History of spinal fusion (~2012) History of thumb surgery Family & Social History Family History Father Stroke Mother Hypertension Brother Cerebral aneurysm Prostate cancer Diabetes mellitus Hypertension Stroke Brother Arthritis Hyperlipidemia Hypertension Sister History of kidney cancer Hypertension Grandfather Cancer Grandmother Cancer Other Family history non-contributory Social History: household members spouse Prior Living Arrangements House Safety & Behavioral: Feels Safe in Current Yes Environment Been Physically Hurt or No Threatened By a Person Tobacco & Substance use: Smoking Status Never smoker alcohol intake current alcohol intake frequency holiday/special occasion Substance Use Type does not use Meds Home Medications and Allergies Home Medications Medication Instructions Recorded Confirmed Type polyethylene glycol 3350 17 17 gm PO DAILY PRN Constipation ##0 06/06/17 06/28/21 History gram/dose oral powder (Miralax) albuterol sulfate 90 mcg/actuation 2 puff inhalation Q4-6H PRN 05/29/19 04/24/22 History aerosol inhaler Shortness Of Breath cholecalciferol (vitamin D3) 50 2,000 unit PO DAILY 05/29/19 04/24/22 History mcg (2,000 unit) tablet ferrous sulfate 325 mg (65 mg 325 mg PO BEDTIME 05/29/19 04/24/22 History iron) tablet immune glob,gamm(IgG) 10 %-pro-IgA 45 gram IV Q3W 05/29/19 04/24/22 History 0 to 50 mcg/mL intravenous solution (Privigen) spironolactone 50 mg tablet 50 mg PO DAILY 05/29/19 04/24/22 History tizanidine 4 mg capsule 4 mg PO QID PRN Muscle Spasm 05/29/19 04/24/22 History sodium chloride 3 % for 3 ml inhalation DIRECTED 06/05/19 04/24/22 History nebulization ondansetron HCl 4 mg tablet 4 mg PO Q8H PRN nausea and 10/06/19 04/24/22 Rx (Zofran) vomiting #30 tabs cetirizine 10 mg capsule (Zyrtec) 10 mg PO DAILY allergies 01/20/20 04/24/22 History montelukast 10 mg tablet 10 mg PO BEDTIME 01/20/20 04/24/22 History (Singulair) verio reflect glucometer #1 ea 01/28/20 04/24/22 Rx insulin syringe-needle U-100 0.5 #100 ea 03/30/20 04/24/22 Rx mL 31 gauge x 5/16 (BD Insulin Syringe Ultra-Fine) clonidine HCl 0.1 mg tablet 0.1 mg PO BID #180 tabs 08/05/20 04/24/22 Rx losartan 50 mg tablet 50 mg PO DAILY #90 tabs 08/05/20 04/24/22 Rx metformin 1,000 mg tablet 1,000 mg PO BID #180 tabs 09/03/20 04/24/22 Rx atorvastatin 40 mg tablet 40 mg PO BEDTIME 04/20/21 04/24/22 History epinephrine 0.3 mg/0.3 mL 0.3 mg IM Q5-15M PRN Allergic 04/20/21 04/24/22 History injection, auto-injector (EpiPen) Reaction furosemide 20 mg tablet (Lasix) 20 mg PO QAM 04/20/21 04/24/22 History insulin glargine 100 unit/mL 30 unit SUBCUT DAILY 04/20/21 04/24/22 History subcutaneous solution insulin lispro 100 unit/mL 4 - 8 unit SUBCUT TID 04/20/21 04/24/22 History subcutaneous pen (Humalog KwikPen (U-100) Insulin) ipratropium 0.5 mg-albuterol 3 mg 3 ml inhalation BID 04/20/21 04/24/22 History (2.5 mg base)/3 mL nebulization soln levothyroxine 75 mcg tablet 75 mcg PO QAM 04/20/21 04/24/22 History nortriptyline 25 mg capsule 25 mg PO BEDTIME 04/20/21 04/24/22 History pregabalin 200 mg capsule 150 mg PO DAILY 04/20/21 04/24/22 History tiotropium bromide 18 mcg capsule 1 cap inhalation DAILY 04/20/21 04/24/22 History with inhalation device (Spiriva with HandiHaler) lansoprazole 15 mg capsule,delayed 30 mg PO BID 04/29/21 04/24/22 History release (Prevacid 24Hr) apixaban 5 mg (74 tabs) tablets in 5 mg PO BID #74 ea 05/01/21 04/24/22 Rx a dose pack acyclovir 5 % topical ointment 1 applic topical 6XD PRN Outbreak 06/28/21 04/24/22 History benralizumab 30 mg/mL subcutaneous 30 mg SUBCUT Q8W 06/28/21 04/24/22 History auto-injector duloxetine 30 mg capsule,delayed 30 mg PO DAILY 06/28/21 04/24/22 History release fluticasone 500 mcg-salmeterol 50 1 inh inhalation BID 06/28/21 04/24/22 History mcg/dose blistr powdr for inhalation (Wixela Inhub) guaifenesin 1,200 mg tablet, 1,200 mg PO BID 06/28/21 04/24/22 History extended release 12 hr (Mucinex) oxycodone-acetaminophen 10 mg-325 1 tab PO Q4H PRN Pain (Scale Score 06/28/21 04/24/22 History mg tablet (Percocet) 4-6) pramipexole 0.5 mg tablet 0.5 mg PO BEDTIME 06/28/21 04/24/22 History levofloxacin 750 mg tablet 750 mg PO Q24H #3 tabs 06/30/21 04/24/22 Rx fentanyl 25 mcg/hr transdermal 1 patch transdermal Q72H PRN pain 02/05/22 04/24/22 Rx patch (scale score 1-3) #5 ea amiodarone 200 mg tablet 200 mg PO DAILY 04/24/22 04/24/22 History azithromycin 250 mg tablet 250 mg PO 3XW 04/24/22 04/24/22 History benralizumab 30 mg/mL subcutaneous 30 mg SUBCUT Q8W 04/24/22 04/24/22 History auto-injector (Fasenra Pen) docusate sodium 100 mg tablet 200 mg PO DAILY 04/24/22 04/24/22 History methocarbamol 500 mg tablet 500 mg PO Q8H PRN Spasms 04/24/22 04/24/22 History metoprolol succinate 25 mg 12.5 mg PO BID 04/24/22 04/24/22 History tablet,extended release 24 hr omega-3 fatty acids 1,000 mg PO DAILY 04/24/22 04/24/22 History prednisone 20 mg tablet 5 mg PO DAILY 04/24/22 04/24/22 History Allergies Allergy/AdvReac Type Severity Reaction Status Date / Time hydroxychloroquine Allergy Unknown Verified 04/24/22 09:27 [HYDROXYCHLOROQUINE] promethazine [From Phenergan] Allergy Agitated Verified 04/24/22 09:27 cefepime AdvReac Severe pruritis Verified 04/24/22 09:27 Review of Systems Review of Systems ROS: Yes All systems reviewed with the patient and are negative except as otherwise documented Exam Vital Signs (past 8 hours): - 04/24/22 14:21 04/24/22 14:21 04/24/22 14:30 Temperature 101.8 F H Pulse Rate 94 H Respiratory Rate 24 Blood Pressure 141/92 H 137/85 Pulse Oximetry 89 L Oxygen Delivery Method Oxygen Flow Rate Fraction of Inspired Oxygen 04/24/22 14:30 04/24/22 15:00 04/24/22 15:00 Temperature 101.8 F H 101.8 F H Pulse Rate 93 H 92 H Respiratory Rate 24 21 Blood Pressure 149/72 H Pulse Oximetry 90 L 97 Oxygen Delivery Method High Flow Nasal Cannula Oxygen Flow Rate 65 Fraction of Inspired Oxygen 04/24/22 15:30 04/24/22 15:30 04/24/22 16:35 Temperature 101.7 F H Pulse Rate 94 H 100 H Respiratory Rate 31 H 20 Blood Pressure 148/81 H Pulse Oximetry 94 93 Oxygen Delivery Method Oxygen Flow Rate Fraction of Inspired Oxygen 04/24/22 16:20 04/24/22 16:25 04/24/22 20:00 Temperature 100.1 F H 99.2 F Pulse Rate 97 H 91 H Respiratory Rate 22 18 Blood Pressure 139/50 L 104/41 L Pulse Oximetry 96 93 Oxygen Delivery Method Heated High Flow Oxygen Flow Rate 45 Fraction of Inspired Oxygen 60 Fraction of Inspired Oxygen 60 Oxygen Delivery Method Heated High Flow Oxygen Flow Rate 45 Narrative Exam Narrative: Gen: Alert, oriented, morbidly obese 72 y.o. female, labored breathing HEENT: normocephalic, atraumatic, conjunctiva clear, sclera non-icteric, oral mucosa pink and moist Neck: supple, full ROM, no JVD, trachea is midline Resp: Lungs with bilateral rales, labored breathing on high-flow oxygen CV: RRR, no murmur or rubs Abd: soft, non-tender, normoactive BTs Skin: no lesions or rashes, dry and intact Neuro: Alert and oriented X 4 w/no focal deficits. Speech clear and coherent. Extremities: moves all 4 extremities, is ambulatory, negative Lula?s sign Psyche: normal mood and affect. Objective Labs Result Diagrams: 04/24/22 09:55 04/24/22 09:55 Labs: Laboratory Results - last 24 hr 04/24/22 04/24/22 04/24/22 09:25 09:52 09:55 WBC RBC Hgb Hct MCV MCH MCHC RDW Plt Count Neut % (Auto) Lymph % (Auto) Schuyler % (Auto) Eos % (Auto) Baso % (Auto) Neut # (Auto) Lymph # (Auto) Schuyler # (Auto) Eos # (Auto) Baso # (Auto) PT 14.1 H INR 1.2 APTT ABG pH 7.44 ABG pCO2 41.8 ABG pO2 72 L ABG HCO3 28 H ABG Total CO2 29 ABG O2 Saturation 95 ABG Base Excess 4.0 H FiO2 40 Sodium Potassium Chloride Carbon Dioxide BUN Creatinine Estimated GFR BUN/Creatinine Ratio Glucose Hemoglobin A1c Lactate Calcium Total Bilirubin AST ALT Alkaline Phosphatase Total Creatine Kinase CK-MB (CK-2) CK-MB (CK-2) Rel Index Troponin I NT-Pro-B Natriuret Pep Total Protein Albumin Globulin Albumin/Globulin Ratio Procalcitonin Urine Color Urine Appearance Urine pH Ur Specific Runnells Urine Protein Urine Glucose (UA) Urine Ketones Urine Occult Blood Urine Nitrate Urine Bilirubin Urine Urobilinogen Ur Leukocyte Esterase Urine RBC Urine WBC Ur Squamous Epith Cells Urine Bacteria Ur Culture Indicated? Chlamy pneumoniae PCR Not detected Adenovirus (PCR) Not detected B. pertussis DNA (PCR) Not detected B.parapertussis DNA PCR Not detected Coronavirus OC43 (PCR) Not detected Coronavirus HKU1 (PCR) Not detected Coronavirus 229E (PCR) Not detected SARS-CoV-2 (PCR) Not detected Coronavirus NL63 (PCR) Not detected Human Metapneumovir PCR Not detected Influenza Type A (PCR) Not detected Influenza Type B (PCR) Not detected M. pneumoniae (PCR) Not detected Parainfluenza 1 (PCR) Not detected Parainfluenza 2 (PCR) Not detected Parainfluenza 3 (PCR) Not detected Parainfluenza 4 (PCR) Not detected RSV (PCR) Not detected Entero/Rhino (PCR) Not detected 04/24/22 04/24/22 04/24/22 09:55 09:55 09:55 WBC 13.7 H RBC 3.86 L Hgb 10.3 L Hct 32.2 L MCV 83.5 MCH 26.8 MCHC 32.1 RDW 19.1 H Plt Count 531 H Neut % (Auto) 80.1 H Lymph % (Auto) 9.0 L Schuyler % (Auto) 10.3 Eos % (Auto) 0.0 L Baso % (Auto) 0.6 Neut # (Auto) 56368 H Lymph # (Auto) 1200 Schuyler # (Auto) 1400 H Eos # (Auto) 0 Baso # (Auto) 100 PT INR APTT 35 ABG pH ABG pCO2 ABG pO2 ABG HCO3 ABG Total CO2 ABG O2 Saturation ABG Base Excess FiO2 Sodium Potassium Chloride Carbon Dioxide BUN Creatinine Estimated GFR BUN/Creatinine Ratio Glucose Hemoglobin A1c Lactate Calcium Total Bilirubin AST ALT Alkaline Phosphatase Total Creatine Kinase CK-MB (CK-2) CK-MB (CK-2) Rel Index Troponin I NT-Pro-B Natriuret Pep 2100 H Total Protein Albumin Globulin Albumin/Globulin Ratio Procalcitonin Urine Color Urine Appearance Urine pH Ur Specific Runnells Urine Protein Urine Glucose (UA) Urine Ketones Urine Occult Blood Urine Nitrate Urine Bilirubin Urine Urobilinogen Ur Leukocyte Esterase Urine RBC Urine WBC Ur Squamous Epith Cells Urine Bacteria Ur Culture Indicated? Chlamy pneumoniae PCR Adenovirus (PCR) B. pertussis DNA (PCR) B.parapertussis DNA PCR Coronavirus OC43 (PCR) Coronavirus HKU1 (PCR) Coronavirus 229E (PCR) SARS-CoV-2 (PCR) Coronavirus NL63 (PCR) Human Metapneumovir PCR Influenza Type A (PCR) Influenza Type B (PCR) M. pneumoniae (PCR) Parainfluenza 1 (PCR) Parainfluenza 2 (PCR) Parainfluenza 3 (PCR) Parainfluenza 4 (PCR) RSV (PCR) Entero/Rhino (PCR) 04/24/22 04/24/22 04/24/22 09:55 09:55 09:55 WBC RBC Hgb Hct MCV MCH MCHC RDW Plt Count Neut % (Auto) Lymph % (Auto) Schuyler % (Auto) Eos % (Auto) Baso % (Auto) Neut # (Auto) Lymph # (Auto) Schuyler # (Auto) Eos # (Auto) Baso # (Auto) PT INR APTT ABG pH ABG pCO2 ABG pO2 ABG HCO3 ABG Total CO2 ABG O2 Saturation ABG Base Excess FiO2 Sodium 137 Potassium 4.2 Chloride 97 L Carbon Dioxide 30 BUN 12 Creatinine 0.77 Estimated GFR > 60 BUN/Creatinine Ratio 15.6 Glucose 157 H Hemoglobin A1c 7.2 H Lactate 1.2 Calcium 8.7 Total Bilirubin 0.4 AST 19 ALT 15 Alkaline Phosphatase 97 Total Creatine Kinase 55 CK-MB (CK-2) TNP CK-MB (CK-2) Rel Index TNP Troponin I 0.033 NT-Pro-B Natriuret Pep Total Protein 7.3 Albumin 3.6 Globulin 3.7 Albumin/Globulin Ratio 1.0 Procalcitonin 0.06 Urine Color Urine Appearance Urine pH Ur Specific Runnells Urine Protein Urine Glucose (UA) Urine Ketones Urine Occult Blood Urine Nitrate Urine Bilirubin Urine Urobilinogen Ur Leukocyte Esterase Urine RBC Urine WBC Ur Squamous Epith Cells Urine Bacteria Ur Culture Indicated? Chlamy pneumoniae PCR Adenovirus (PCR) B. pertussis DNA (PCR) B.parapertussis DNA PCR Coronavirus OC43 (PCR) Coronavirus HKU1 (PCR) Coronavirus 229E (PCR) SARS-CoV-2 (PCR) Coronavirus NL63 (PCR) Human Metapneumovir PCR Influenza Type A (PCR) Influenza Type B (PCR) M. pneumoniae (PCR) Parainfluenza 1 (PCR) Parainfluenza 2 (PCR) Parainfluenza 3 (PCR) Parainfluenza 4 (PCR) RSV (PCR) Entero/Rhino (PCR) 04/24/22 04/24/22 10:23 13:57 WBC RBC Hgb Hct MCV MCH MCHC RDW Plt Count Neut % (Auto) Lymph % (Auto) Schuyler % (Auto) Eos % (Auto) Baso % (Auto) Neut # (Auto) Lymph # (Auto) Schuyler # (Auto) Eos # (Auto) Baso # (Auto) PT INR APTT ABG pH 7.44 ABG pCO2 40.8 ABG pO2 65 L ABG HCO3 28 H ABG Total CO2 29 ABG O2 Saturation 93 L ABG Base Excess 4.0 H FiO2 65 Sodium Potassium Chloride Carbon Dioxide BUN Creatinine Estimated GFR BUN/Creatinine Ratio Glucose Hemoglobin A1c Lactate Calcium Total Bilirubin AST ALT Alkaline Phosphatase Total Creatine Kinase CK-MB (CK-2) CK-MB (CK-2) Rel Index Troponin I NT-Pro-B Natriuret Pep Total Protein Albumin Globulin Albumin/Globulin Ratio Procalcitonin Urine Color Yellow Urine Appearance Clear Urine pH 5.0 Ur Specific Runnells 1.020 Urine Protein Trace H Urine Glucose (UA) Negative Urine Ketones 2+ H Urine Occult Blood Negative Urine Nitrate Positive H Urine Bilirubin Negative Urine Urobilinogen 0.2 Ur Leukocyte Esterase Negative Urine RBC None seen Urine WBC 1-5/hpf Ur Squamous Epith Cells 0-1 /hpf Urine Bacteria Many (>30) H Ur Culture Indicated? Specimen cultured Chlamy pneumoniae PCR Adenovirus (PCR) B. pertussis DNA (PCR) B.parapertussis DNA PCR Coronavirus OC43 (PCR) Coronavirus HKU1 (PCR) Coronavirus 229E (PCR) SARS-CoV-2 (PCR) Coronavirus NL63 (PCR) Human Metapneumovir PCR Influenza Type A (PCR) Influenza Type B (PCR) M. pneumoniae (PCR) Parainfluenza 1 (PCR) Parainfluenza 2 (PCR) Parainfluenza 3 (PCR) Parainfluenza 4 (PCR) RSV (PCR) Entero/Rhino (PCR) Assessment & Plan Assessment & Plan narrative: Radha Zavaleta is admitted for a urinary tract infection and acute respiratory failure with hypoxemia. Urinary tract infection, acute, present on admission * She was administered both IV Levaquin and meropenem in the emergency department * She is initiated on IV doxycycline Acute respiratory failure, present on admission * She is written for albuterol and DuoNebs * Last ABG was within normal limits * Consider echo in the morning as she responded nicely to IV Lasix 20 mg * Patient had a small occlusive DVT in the mid left femoral vein last year. It may be appropriate to do a CTA in the morning if her oxygenation has not improved to rule out PE. Hx of pulmonary embolus/DVT in 2021 * Continue Eliquis * Oxygen as needed Type 2 diabetes * Will continue her usual home insulin regimen * Will add a sliding scale as well Hypertension * Will continue clonidine, losartan Hyperlipidemia * Continue statin Chronic pain * Patient is on a bupropion * Continue Fentanyl transdermal patch * Will continue her usual pain regimen at home, this includes a patch plus as needed oxycodone * Will continue duloxetine * Will continue Lyrica * Will continue nortriptyline Common variable immunodeficiency * Continue her baseline prednisone, 5 mg daily Morbid obesity, this is likely contributing to her venous stasis insufficiency, and her overall clinical condition * Dietary consultation * PT consultation for mobility Other independent historians: , Harjeet Discussion of results, plan of care with independent HCP/other ED provider Reviewed outside records: VTE Prophylaxis: Wells risk score 9 X Bilateral SCDs Patient is currently anticoagulated on apixaban. Patient is admitted to the inpatient service due to the severity of disease, risks of further disease progression and this stay is expected to exceed 2 midnights. FEN: IV fluids: saline lock, diet: diabetic carb control, labs: CBC, C/BMP, liver enzymes, Mag, PT/INR Consultants None Dispo: unknown at this time Code status: Full code as discussed with the patient who identifies her , Harjeet as her surrogate and POA. Advanced care planning 10 minutes. [X] I have utilized all available immediate resources to obtain, update, or review of the patient's current medications VTE Deep Vein Thrombosis/Pulmonary Embolism Present on Admission: No MIPS - Admit I confirm the patient?s Advance Care Plan is present, Code status is documented, Surrogate decision maker is in patient?s record: Yes MIPS - DC The patient has current or prior documentation of left ventricular ejection fraction (LVEF) less than 40%, or moderate or severely depressed left ventricular systolic function.: No COVID-19 COVID-19 status: Negative Result date/Date tested (Pos, Neg/Pending): 04/24/22 Scores Wells' Criteria for PE Clinical signs and symptoms of DVT: Yes PE is #1 Dx or equally likely: Yes Heart rate > 100: No Immobilization at least 3 days or surg in previous 4 weeks: Yes History of PE or DVT: Yes Hemoptysis: No Malignancy w/Treatment within 6 months or palliative: No Wells' PE Score total: 9.0
[2022-04-24] MEDS: APIXABAN 5 MG TABLET PO (22:48)
[2022-04-24] MEDS: PRAMIPEXOLE 0.25 MG TABLET 0.5 MG PO (22:48)
[2022-04-24] MEDS: FUROSEMIDE 20 MG/2 ML VIAL IV (22:48)
[2022-04-25] VITALS (15 sets, daily range): BP systolic 137–157; BP diastolic 55–78; PULSE 65–98; RESP 16–28; TEMP 36–37.1; O2SAT 92–100
[2022-04-25] MEDS: MORPHINE 2 MG/ML INJ 1 MG IV ×4 (00:39→16:54)
[2022-04-25] MEDS: DOXYCYCLINE 100 MG in SODIUM CHLORIDE 0.9% 100 ML IV ×2 (00:40→14:45)
--- NOTE | 2022-04-25 02:59 | PC.NURSE ---
Pt on a high flow with 60% FIO2, lung sound with coarse crackles, pt unable to lay flat in bed. Pt desats to low 70's with minimal exertion. Pt needed FIO2 TO BE increase up to 90%. Had icu nurse to come in and see patient and help me assess her. 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 FIO2 back down to 75%, pt sating in the low 90's and resting in bed. Pt had a dose of 1 mg of morphine ivp to help with her breathing.
[2022-04-25 05:22] LABS: PCO2 ABG 39.8 mmHg (35-45); PO2 ABG 80 mmHg (80-100); pH ABG 7.45 (7.35-7.45)
[2022-04-25 05:23] LABS: Fractionated Inspired Oxygen 90; HCO3 ABG 27 mmol/L (22-26); Oxygen Saturation ABG 96 % (95-100); TCO2 ABG 29 mmol/L (21-31)
[2022-04-25] MEDS: LEVOTHYROXINE 75 MCG TABLET PO (06:33)
[2022-04-25 07:27] LABS: Add Manual Diff / Slide Review NO; Basophils Absolute Auto 0 /uL (0-100); Basophils Percent Auto 0.3 % (0-2); Eosinophils Absolute Auto 0 /uL (0-450); Hematocrit 30.8 % (36-46); Hemoglobin 9.8 g/dL (12.0-16.0); Lymphocytes Absolute Auto 1300 /uL (1100-4500); Lymphocytes Percent Auto 10.9 % (25-40); Mean Corpuscular HGB Conc 31.7 % (30-36); Mean Corpuscular Hemoglobin 26.3 PG (26-34); Mean Corpuscular Volume 83.1 fL (80-100); Monocytes Absolute Auto 1400 /uL (0-900); Monocytes Percent Auto 12.2 % (3-14); Neutrophils Absolute Auto 9100 /uL (1500-7000); Neutrophils Percent Auto 76.6 % (50-75); Platelet Count 519 X10^3/uL (150-400); Red Blood Cell Count 3.71 X10^6/uL (4.0-5.2); Red Cell Distribution Width 19.3 % (11.6-14.8); White Blood Cell Count 11.9 X10^3/uL (4.5-11.0)
[2022-04-25 07:53] LABS: Alanine Aminotransferase 13 IU/L (<35); Albumin 3.4 g/dL (3.5-5.0); Alkaline Phosphatase 92 U/L (38-126); Aspartate Aminotransferase 20 IU/L (14-36); BUN Creatinine Ratio 12.7 (6-22); Bilirubin Total 0.5 mg/dL (0.2-1.3); Blood Urea Nitrogen 9 mg/dL (7-17); Calcium 8.6 mg/dL (8.4-10.2); Carbon Dioxide 29 mmol/L (22-32); Chloride 97 mmol/L (98-107); Estimated Glomerular Filt Rate > 60 mL/min (>60); Globulin 3.5 g/dL (1.7-4.1); Glucose 138 mg/dL (80-110); HEMOLYSIS < 15 (0-50); Magnesium 1.3 mg/dL (1.6-2.3); Potassium 3.7 mmol/L (3.4-5.1); Sodium 135 mmol/L (137-145); Total Protein 6.9 g/dL (6.3-8.2)
[2022-04-25] MEDS: cloNIDine 0.1 MG TABLET PO ×2 (08:43→19:49)
[2022-04-25] MEDS: AMIODARONE 200 MG TABLET PO (08:44)
[2022-04-25] MEDS: LOSARTAN 50 MG TABLET PO (08:44)
[2022-04-25] MEDS: predniSONE 20 MG TABLET 5 MG PO (08:45)
[2022-04-25] MEDS: APIXABAN 5 MG TABLET PO ×2 (08:45→19:48)
[2022-04-25] MEDS: METOPROLOL ER 25 MG TABLET 12.5 MG PO ×2 (08:46→19:45)
[2022-04-25] MEDS: AZITHROMYCIN 500 MG in DEXTROSE 5% IN WATER 250 ML 250 MG IV (08:59)
[2022-04-25] MEDS: INSULIN GLARGINE 100 UNIT/ML 3ML PEN 30 UNIT SUBCUT (09:03)
[2022-04-25] MEDS: ALBUTEROL 2.5 MG/3 ML NEB (ADULT) INH ×2 (09:18→12:55)
[2022-04-25] MEDS: levoFLOXacin 750 MG/150 ML PIGGYBACK 100 MG IV (09:30)
--- NOTE | 2022-04-25 09:33 | CM.DANOTE ---
DCP: Case received, EMR reviewed and met with patient. Spouse, Harjeet, was in the room, as patient on her oxygen. Was able to obtain information from spouse regarding patient's baseline activity level at home prior to admission. Patient is a 72 year old female who admitted yesterday afternoon to the care of the hospitalist team. PCP: Dr. Porter. Payer: confirmed: [facility] Advantage. Patient came to the hospital via ambulance secondary to having weakness, not getting out of bed, which is not normal for her. Notes indicate that patient is on home oxygen, does see pulmonary provider. Notes indicate also that spouse had increased her oxygen to 6 liters. Patient holds diagnosis of urinary tract infection, acute respiratory failure upon admission. Met with patient, she was in bed, on oxygen, spouse, Harjeet, was present. He is a retired orthopedic PA. Patient at baseline uses wheel-chair, walker. She has shower bench for showers, does not drive, spouse takes her to appointments. She is alert and oriented at baseline. Patient has had [facility] in the past. P: DCP to follow closely. May need home health again, has good home support. Plan is home when stable. Veronica Colon RN/[employer] Discharge Planning/Care Management CM Discharge Assessment Start: 04/25/22 09:31 Freq: Status: Active Protocol: Document 04/25/22 09:31 (Rec: 04/25/22 09:33 [id number]) Discharge Planning Assessment Assigned Security Flex Officer Veronica Colon RN/[employer] Liqu[employer] Maker Advance Directives? Yes Advance Directives on File No History Provided By Patient,Significant Other, Medical Record Has Patient been admitted in last 30 No days? Prior Living Arrangements House Household Members spouse Type of transporation used prior to Relies on Others admit Independent with ADL's Yes Is patient alert and oriented? Yes Needs Assistance With Meal Prep,Home Chores / Shopping Caregiver for Another No DME Already Rented / Owned Wheelchair,FWW / Walker, Bedside Commode,Other Comment Has shower chair as well Barriers to Discharge No Comment medically and physically fragile. return home w/spouse, who is a retired Orthopedic PA-C Discharge Plan Home Transportation Arrangement Spouse bedside and can provide transport home when stable Referrals Initiated None needed Whiteboard Updated in Patient Room with Yes name and ext. # of Security Flex Officer Review Status In Process Next Review Type Continued Stay Review
[2022-04-25] MEDS: OXYCODONE IR 5 MG TABLET PO (10:26)
[2022-04-25] MEDS: SPIRONOLACTONE 25 MG TABLET 50 MG PO (10:26)
[2022-04-25] MEDS: FUROSEMIDE 20 MG TABLET PO (10:27)
[2022-04-25] MEDS: PIPERACILLIN/TAZO 4.5 GM in SODIUM CHLORIDE 0.9% 100 ML IV (11:01)
[2022-04-25] MEDS: MAGNESIUM CHLORIDE 64 MG TABLET 128 MG PO ×2 (11:01→17:36)
[2022-04-25] MEDS: INSULIN LISPRO 100 UNIT/ML 3ML VIAL SUBCUT ×3 (12:00→20:20)
[2022-04-25] MEDS: HYDROCORTISONE 100 MG/2 ML VIAL 50 MG IV ×2 (12:16→17:27)
[2022-04-25] MEDS: ONDANSETRON 4 MG/2 ML INJ IV (13:54)
[2022-04-25] MEDS: METOCLOPRAMIDE 10 MG/2 ML INJ IV (15:40)
[2022-04-25] MEDS: ALBUTEROL/IPRATROPIUM 3 ML AMPUL INH ×2 (16:01→21:16)
--- NOTE | 2022-04-25 16:27 | P.PN_ITS ---
Subjective Subjective Date Patient Seen: 04/25/22 Interval history: 71-year-old female with a history of common variable immune deficiency, atrial fibrillation anticoagulated on Eliquis, NSTEMI in January 2022 diabetes type 2, asthma, pulmonary aspergillosis admitted due to acute hypoxic respiratory failure due to pneumonia. Patient is currently on high-flow nasal cannula. She has history of Pseudomonas in sputum from December last year which was susceptible to Zosyn. After discus lakisha with her ID doctor Dr. Whalen we decided to put her on Zosyn and doxycycline for antibiotic management. She did miss her last couple of days of medications including Lasix due to illness and diuresed > 1 L after IV Lasix in the ED. in addition to dyspnea she is complaining of her chronic pain for which she is on oxycodone. Exam Vital Signs (past 8 hours): - 04/25/22 08:43 04/25/22 08:44 04/25/22 08:46 Temperature Pulse Rate 91 H 91 H 91 H Respiratory Rate Blood Pressure 157/78 H 157/78 H 157/78 H Pulse Oximetry Oxygen Flow Rate Fraction of Inspired Oxygen 04/25/22 09:33 04/25/22 11:00 04/25/22 11:38 Temperature 97.8 F Pulse Rate 98 H 86 86 Respiratory Rate 28 H 21 Blood Pressure 148/75 H 148/75 H Pulse Oximetry 97 94 Oxygen Flow Rate 50 45 Fraction of Inspired Oxygen 55 75 04/25/22 11:00 04/25/22 13:05 04/25/22 16:12 Temperature Pulse Rate 65 Respiratory Rate 28 H 28 H 28 H Blood Pressure Pulse Oximetry 97 94 98 Oxygen Flow Rate 50 Fraction of Inspired Oxygen 55 Fraction of Inspired Oxygen 55 SaO2/FiO2 Ratio 170 Oxygen Delivery Method Heated High Flow Oxygen Flow Rate 50 Narrative Exam Narrative: General: Somewhat somnolent female who is arousable and has labored breathing Lungs: Coarse breath sounds throughout Heart: Tachycardic with regular rhythm Abdomen: Soft Extremities: Nonedematous Objective Labs Result Diagrams: 04/25/22 06:05 04/25/22 06:05 Labs: Laboratory Results - last 24 hr 04/24/22 04/25/22 04/25/22 09:55 00:46 06:05 WBC 11.9 H RBC 3.71 L Hgb 9.8 L Hct 30.8 L MCV 83.1 MCH 26.3 MCHC 31.7 RDW 19.3 H Plt Count 519 H Neut % (Auto) 76.6 H Lymph % (Auto) 10.9 L [place] % (Auto) 12.2 Eos % (Auto) 0.0 L Baso % (Auto) 0.3 Neut # (Auto) 9100 H Lymph # (Auto) 1300 [place] # (Auto) 1400 H Eos # (Auto) 0 Baso # (Auto) 0 ABG pH 7.45 ABG pCO2 39.8 ABG pO2 80 ABG HCO3 27 H ABG Total CO2 29 ABG O2 Saturation 96 ABG Base Excess 3.0 H FiO2 90 Sodium Potassium Chloride Carbon Dioxide BUN Creatinine Estimated GFR BUN/Creatinine Ratio Glucose Hemoglobin A1c 7.2 H Calcium Magnesium Total Bilirubin AST ALT Alkaline Phosphatase Total Protein Albumin Globulin Albumin/Globulin Ratio 04/25/22 06:05 WBC RBC Hgb Hct MCV MCH MCHC RDW Plt Count Neut % (Auto) Lymph % (Auto) [place] % (Auto) Eos % (Auto) Baso % (Auto) Neut # (Auto) Lymph # (Auto) [place] # (Auto) Eos # (Auto) Baso # (Auto) ABG pH ABG pCO2 ABG pO2 ABG HCO3 ABG Total CO2 ABG O2 Saturation ABG Base Excess FiO2 Sodium 135 L Potassium 3.7 Chloride 97 L Carbon Dioxide 29 BUN 9 Creatinine 0.71 Estimated GFR > 60 BUN/Creatinine Ratio 12.7 Glucose 138 H Hemoglobin A1c Calcium 8.6 Magnesium 1.3 L Total Bilirubin 0.5 AST 20 ALT 13 Alkaline Phosphatase 92 Total Protein 6.9 Albumin 3.4 L Globulin 3.5 Albumin/Globulin Ratio 1.0 [facility] Medical History Abnormal chest xray (~1979) Anemia Ankle pain Anticoagulated Asthma (~1959) Bronchiectasis (~2006) Cervical spine disease Chronic back pain Colon polyps (~2015) Degenerative joint disease of spine (~2001) Diabetes mellitus, type II (~2009) Eczema Fibromyalgia Foot pain Hoarseness Hyperlipidemia Hypertension Hypothyroidism Migraines (~1964) 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 Osteopenia Pneumonia Pneumonia Recurrent sinusitis (~1970) Restless leg syndrome Shoulder pain (~03/2018) Sleep apnea Wears glasses Surgical History Anesthesia History of carpal tunnel release History of cataract removal with insertion of prosthetic lens (~2014) History of section History of laminectomy (~2002) History of spinal fusion (~2012) History of thumb surgery Family History Father Stroke Mother Hypertension Brother Cerebral aneurysm Prostate cancer Diabetes mellitus Hypertension Stroke Brother Arthritis Hyperlipidemia Hypertension Sister History of kidney cancer Hypertension Grandfather Cancer Grandmother Cancer Other Family history non-contributory Social History household members: spouse Smoking Status: Never smoker alcohol intake: current Assessment & Plan Assessment & Plan narrative: 1. Acute hypoxic respiratory failure secondary to bacterial pneumonia -CXR with bilateral lower lung infiltrate; clinical presentation with fever, elevated WBC consistent with pneumonia -history of Pseudomonas in sputum in December last year which was susceptible to Zosyn and not susceptible to quinolone, patient has history of allergic reaction to cefepime -requested sputum sample for culture, blood cultures pending -treat with Zosyn and doxycycline to cover g negatives including Pseudomonas as well as Staph bacteria, antibiotic management reviewed with Dr Whalen -continue O2 support currently with high-flow nasal cannula -nebulizer treatments with RT -patient has significant underlying chronic lung disease, on azithromycin 3 times weekly, being held due to atypical bacteria coverage with doxycycline -last ECHO 04/29/21: LVEF 60-65%, nl LV size, mild , mild MS. Repeat echo considered but not necessary at this time. 2. Common variable immune deficiency -patient on weekly immunoglobulin subcu injections, last received on April 22 -also on daily 5 mg prednisone, continued -ordered stress dose steroid hydrocortisone 50 mg IV q.6 hours, titrate off as condition stabilizes 3. Type 2 diabetes insulin requiring -continue Lantus 30 units q.day and medium dose sliding scale -hold metformin 4. Chronic pain -continue on duloxetine, fentanyl patch 25 mcg with oxycodone as needed per home routine 5. History of DVT and PE -continue Eliquis 5 mg b.i.d. 6. Incidental urinary tract infection -urine culture obtained -covered with Zosyn 7. Hypertension, hyperlipidemia -continue clonidine, losartan, atorvastatin per home routine -continue low dose furosemide and spironolactone per home routine 8. Hypomagnesemia -Mag sulfate ordered -recheck level in a.m. Surrogate decision maker: Lucas Zavaleta, was ortho PA here at [facility] Time Spent With Patient Critical Care time: I spent a total of [] minutes of critical care time on this patient's care today; this time is exclusive of procedural time.
[2022-04-25] MEDS: MAGNESIUM SULFATE 2 GM/50 ML PIGGYBACK IV (17:07)
[2022-04-25] MEDS: ATORVASTATIN 20 MG TABLET 40 MG PO (19:45)
[2022-04-25] MEDS: MONTELUKAST 10 MG TABLET PO (19:49)
[2022-04-25] MEDS: PRAMIPEXOLE 0.25 MG TABLET 0.5 MG PO (19:49)
[2022-04-25] MEDS: PIPERACILLIN/TAZO 3.375 GM in SODIUM CHLORIDE 0.9% 100 ML IV (19:50)
[2022-04-25] MEDS: MORPHINE 2 MG/ML INJ IV (20:02)
[2022-04-25] MEDS: PANTOPRAZOLE DR 20 MG TABLET PO (20:02)
[2022-04-25] MEDS: NORTRIPTYLINE HCL 25 MG CAPSULE PO (20:02)
[2022-04-26] VITALS (16 sets, daily range): BP systolic 119–138; BP diastolic 46–75; PULSE 69–83; RESP 15–28; TEMP 35.9–36.7; O2SAT 91–100
[2022-04-26] MEDS: HYDROCORTISONE 100 MG/2 ML VIAL 50 MG IV ×2 (00:04→06:12)
[2022-04-26] MEDS: DOXYCYCLINE 100 MG in SODIUM CHLORIDE 0.9% 100 ML IV ×2 (00:53→14:14)
[2022-04-26] MEDS: PIPERACILLIN/TAZO 3.375 GM in SODIUM CHLORIDE 0.9% 100 ML IV ×3 (02:11→17:23)
[2022-04-26] MEDS: MORPHINE 2 MG/ML INJ IV ×6 (03:44→20:51)
[2022-04-26] MEDS: LEVOTHYROXINE 75 MCG TABLET PO (06:12)
[2022-04-26 06:57] LABS: Add Manual Diff / Slide Review NO; Basophils Absolute Auto 0 /uL (0-100); Basophils Percent Auto 0.3 % (0-2); Eosinophils Absolute Auto 0 /uL (0-450); Hematocrit 29.1 % (36-46); Hemoglobin 9.4 g/dL (12.0-16.0); Lymphocytes Absolute Auto 800 /uL (1100-4500); Lymphocytes Percent Auto 7.4 % (25-40); Mean Corpuscular HGB Conc 32.3 % (30-36); Mean Corpuscular Hemoglobin 26.8 PG (26-34); Monocytes Absolute Auto 600 /uL (0-900); Monocytes Percent Auto 5.4 % (3-14); Neutrophils Absolute Auto 9500 /uL (1500-7000); Neutrophils Percent Auto 86.9 % (50-75); Platelet Count 488 X10^3/uL (150-400); Red Blood Cell Count 3.51 X10^6/uL (4.0-5.2); Red Cell Distribution Width 18.8 % (11.6-14.8); White Blood Cell Count 10.9 X10^3/uL (4.5-11.0)
[2022-04-26] MEDS: PANTOPRAZOLE DR 20 MG TABLET PO ×2 (07:04→20:51)
[2022-04-26 07:13] LABS: Alanine Aminotransferase 15 IU/L (<35); Albumin Globulin Ratio 0.8 (1.0-2.8); Alkaline Phosphatase 83 U/L (38-126); Aspartate Aminotransferase 20 IU/L (14-36); BUN Creatinine Ratio 15.7 (6-22); Bilirubin Total 0.4 mg/dL (0.2-1.3); Blood Urea Nitrogen 11 mg/dL (7-17); Calcium 8.5 mg/dL (8.4-10.2); Carbon Dioxide 33 mmol/L (22-32); Chloride 96 mmol/L (98-107); Estimated Glomerular Filt Rate > 60 mL/min (>60); Globulin 3.6 g/dL (1.7-4.1); Glucose 186 mg/dL (80-110); HEMOLYSIS < 15 (0-50); Magnesium 1.9 mg/dL (1.6-2.3); Potassium 3.8 mmol/L (3.4-5.1); Sodium 135 mmol/L (137-145); Total Protein 6.6 g/dL (6.3-8.2)
[2022-04-26] MEDS: PREGABALIN 50 MG CAPSULE 150 MG PO (08:17)
[2022-04-26] MEDS: APIXABAN 5 MG TABLET PO ×2 (08:17→20:48)
[2022-04-26] MEDS: DOCUSATE 100 MG CAPSULE 200 MG PO (08:18)
[2022-04-26] MEDS: predniSONE 20 MG TABLET 5 MG PO (08:18)
[2022-04-26] MEDS: DULOXETINE 30 MG CAPSULE PO (08:20)
[2022-04-26] MEDS: FUROSEMIDE 20 MG TABLET PO (08:20)
[2022-04-26] MEDS: METOPROLOL ER 25 MG TABLET 12.5 MG PO ×2 (08:21→20:47)
[2022-04-26] MEDS: SPIRONOLACTONE 25 MG TABLET 50 MG PO (08:22)
[2022-04-26] MEDS: LOSARTAN 50 MG TABLET PO (08:22)
[2022-04-26] MEDS: cloNIDine 0.1 MG TABLET PO ×2 (08:22→20:49)
[2022-04-26] MEDS: INSULIN GLARGINE 100 UNIT/ML 3ML PEN 30 UNIT SUBCUT (08:24)
[2022-04-26] MEDS: INSULIN LISPRO 100 UNIT/ML 3ML VIAL SUBCUT ×4 (08:24→21:09)
[2022-04-26] MEDS: BUDESONIDE 0.5 MG/2 ML NEB INH ×2 (08:28→21:06)
[2022-04-26] MEDS: ALBUTEROL/IPRATROPIUM 3 ML AMPUL INH ×3 (08:28→21:06)
[2022-04-26] MEDS: AMIODARONE 200 MG TABLET PO (09:36)
[2022-04-26] MEDS: ACETAMINOPHEN 325 MG TABLET 650 MG PO ×2 (09:36→18:24)
[2022-04-26] MEDS: OXYCODONE IR 5 MG TABLET PO ×2 (09:37→14:14)
[2022-04-26] MEDS: methocarbamoL 500 MG TABLET PO ×2 (09:38→18:23)
--- NOTE | 2022-04-26 13:57 | P.PN_ITS ---
Subjective Subjective Date Patient Seen: 04/26/22 Time Patient Seen: 13:30 Interval history: She is feeling somewhat improved today. Still coughing but her shortness of breath is improving. Per RT who saw her yesterday she looks and sounds much better. She has just been weaned down on her oxygen requirements when I see her. Exam Vital Signs (past 8 hours): - 04/26/22 08:21 04/26/22 08:22 04/26/22 08:22 Temperature Pulse Rate 75 75 75 Respiratory Rate Blood Pressure 128/66 128/66 128/65 Pulse Oximetry Oxygen Flow Rate Fraction of Inspired Oxygen 04/26/22 08:44 04/26/22 08:47 04/26/22 08:00 Temperature 97.4 F L Pulse Rate 74 74 71 Respiratory Rate 16 16 20 Blood Pressure 137/60 137/60 Pulse Oximetry 100 99 Oxygen Flow Rate 50 40 Fraction of Inspired Oxygen 55 57 04/26/22 09:45 04/26/22 12:07 04/26/22 13:30 Temperature 97.2 F L Pulse Rate 74 78 69 Respiratory Rate 18 16 Blood Pressure 128/70 138/75 Pulse Oximetry 97 Oxygen Flow Rate 40 Fraction of Inspired Oxygen 57 04/26/22 13:49 Temperature Pulse Rate 69 Respiratory Rate 18 Blood Pressure Pulse Oximetry 95 Oxygen Flow Rate Fraction of Inspired Oxygen Fraction of Inspired Oxygen 57 SaO2/FiO2 Ratio 181 Oxygen Delivery Method Heated High Flow Oxygen Flow Rate 40 Narrative Exam Narrative: General: awake, alert, no acute distress Lungs: decreased breath sounds and scattered rhonchi Heart: regular rate and rhythm, with no murmurs Abdomen: Soft Extremities: Nonedematous Objective Labs Result Diagrams: 04/26/22 06:45 04/26/22 06:45 Labs: Laboratory Results - last 24 hr 04/26/22 04/26/22 06:45 06:45 WBC 10.9 RBC 3.51 L Hgb 9.4 L Hct 29.1 L MCV 83.0 MCH 26.8 MCHC 32.3 RDW 18.8 H Plt Count 488 H Neut % (Auto) 86.9 H Lymph % (Auto) 7.4 L [place] % (Auto) 5.4 Eos % (Auto) 0.0 L Baso % (Auto) 0.3 Neut # (Auto) 9500 H Lymph # (Auto) 800 L [place] # (Auto) 600 Eos # (Auto) 0 Baso # (Auto) 0 Sodium 135 L Potassium 3.8 Chloride 96 L Carbon Dioxide 33 H BUN 11 Creatinine 0.70 Estimated GFR > 60 BUN/Creatinine Ratio 15.7 Glucose 186 H Calcium 8.5 Magnesium 1.9 Total Bilirubin 0.4 AST 20 ALT 15 Alkaline Phosphatase 83 Total Protein 6.6 Albumin 3.0 L Globulin 3.6 Albumin/Globulin Ratio 0.8 L PFSH Medical History Abnormal chest xray (~1979) Anemia Ankle pain Anticoagulated Asthma (~1959) Bronchiectasis (~2006) Cervical spine disease Chronic back pain Colon polyps (~2015) Degenerative joint disease of spine (~2001) Diabetes mellitus, type II (~2009) Eczema Fibromyalgia Foot pain Hoarseness Hyperlipidemia Hypertension Hypothyroidism Migraines (~1964) 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 Osteopenia Pneumonia Pneumonia Recurrent sinusitis (~1970) Restless leg syndrome Shoulder pain (~03/2018) Sleep apnea Wears glasses Surgical History Anesthesia History of carpal tunnel release History of cataract removal with insertion of prosthetic lens (~2014) History of section History of laminectomy (~2002) History of spinal fusion (~2012) History of thumb surgery Family History Father Stroke Mother Hypertension Brother Cerebral aneurysm Prostate cancer Diabetes mellitus Hypertension Stroke Brother Arthritis Hyperlipidemia Hypertension Sister History of kidney cancer Hypertension Grandfather Cancer Grandmother Cancer Other Family history non-contributory Social History household members: spouse Smoking Status: Never smoker alcohol intake: current Assessment & Plan Assessment & Plan narrative: 1. Acute hypoxic respiratory failure secondary to bacterial pneumonia -CXR with bilateral lower lung infiltrate; clinical presentation with fever, elevated WBC consistent with pneumonia -history of Pseudomonas in sputum in December last year which was susceptible to Zosyn and not susceptible to quinolone, patient has history of allergic reaction to cefepime -requested sputum sample for culture, blood cultures pending -treat with Zosyn and doxycycline to cover g negatives including Pseudomonas as well as Staph bacteria, antibiotic management reviewed with Dr Whalen, ordered vancomycin pending MRSA swab -continue O2 support abd wean as able -nebulizer treatments with RT -patient has significant underlying chronic lung disease, on azithromycin 3 times weekly, being held due to atypical bacteria coverage with doxycycline 2. Common variable immune deficiency -patient on weekly immunoglobulin subcu injections, last received on April 22 -also on daily 5 mg prednisone, continued -stop stress dose steroids as she is significantly improved 3. Type 2 diabetes insulin requiring -continue Lantus 30 units q.day and medium dose sliding scale -hold metformin 4. Chronic pain -continue on duloxetine, fentanyl patch 25 mcg with oxycodone as needed per home routine 5.? History of DVT and PE -continue Eliquis 5 mg b.i.d. 6. UTI -gram negative bacilli growin in culture -covered with Zosyn 7.? Hypertension, hyperlipidemia -continue clonidine, losartan, atorvastatin per home routine -continue low dose furosemide and spironolactone per home routine 8. Hypomagnesemia, resolved 9. Atrial fibrillation, presumed -continue amiodarone Time Spent With Patient Critical Care time: I spent a total of [] minutes of critical care time on this patient's care today; this time is exclusive of procedural time.
[2022-04-26] MEDS: VANCOMYCIN 750 MG/150 ML PIGGYBACK 150 MG IV ×2 (15:37→22:08)
--- NOTE | 2022-04-26 15:43 | PC.NURSE ---
Informed Dr. Pond about this RN's concern on the pt's left AC. There appears to be a raised vein, firm, denies pain. Provider stated he would be in to see the pt shortly. The area is bruised as well.
[2022-04-26] MEDS: MONTELUKAST 10 MG TABLET PO (20:49)
[2022-04-26] MEDS: ATORVASTATIN 20 MG TABLET 40 MG PO (20:49)
[2022-04-26] MEDS: PRAMIPEXOLE 0.25 MG TABLET 0.5 MG PO (20:50)
[2022-04-26] MEDS: NORTRIPTYLINE HCL 25 MG CAPSULE PO (20:50)
[2022-04-27] VITALS (15 sets, daily range): BP systolic 111–139; BP diastolic 44–77; PULSE 61–86; RESP 17–22; TEMP 35.6–36.9; O2SAT 94–100
[2022-04-27] MEDS: DOXYCYCLINE 100 MG in SODIUM CHLORIDE 0.9% 100 ML IV ×2 (01:28→15:42)
[2022-04-27] MEDS: PIPERACILLIN/TAZO 3.375 GM in SODIUM CHLORIDE 0.9% 100 ML IV ×3 (02:17→19:52)
[2022-04-27] MEDS: LEVOTHYROXINE 75 MCG TABLET PO (06:45)
[2022-04-27] MEDS: VANCOMYCIN 750 MG/150 ML PIGGYBACK 150 MG IV (06:59)
[2022-04-27] MEDS: PANTOPRAZOLE DR 20 MG TABLET PO ×2 (06:59→22:05)
[2022-04-27 07:56] LABS: Add Manual Diff / Slide Review NO; Basophils Absolute Auto 0 /uL (0-100); Basophils Percent Auto 0.4 % (0-2); Eosinophils Absolute Auto 0 /uL (0-450); Hematocrit 27.9 % (36-46); Lymphocytes Absolute Auto 1300 /uL (1100-4500); Lymphocytes Percent Auto 14.6 % (25-40); Mean Corpuscular HGB Conc 32.4 % (30-36); Mean Corpuscular Hemoglobin 26.5 PG (26-34); Mean Corpuscular Volume 81.9 fL (80-100); Monocytes Absolute Auto 800 /uL (0-900); Monocytes Percent Auto 8.9 % (3-14); Neutrophils Absolute Auto 6900 /uL (1500-7000); Neutrophils Percent Auto 76.1 % (50-75); Platelet Count 516 X10^3/uL (150-400); Red Blood Cell Count 3.41 X10^6/uL (4.0-5.2); Red Cell Distribution Width 18.7 % (11.6-14.8); White Blood Cell Count 9.1 X10^3/uL (4.5-11.0)
[2022-04-27 08:08] LABS: Alanine Aminotransferase 15 IU/L (<35); Albumin 3.1 g/dL (3.5-5.0); Albumin Globulin Ratio 0.9 (1.0-2.8); Alkaline Phosphatase 70 U/L (38-126); Aspartate Aminotransferase 19 IU/L (14-36); BUN Creatinine Ratio 18.8 (6-22); Bilirubin Total 0.2 mg/dL (0.2-1.3); Blood Urea Nitrogen 16 mg/dL (7-17); Calcium 8.7 mg/dL (8.4-10.2); Carbon Dioxide 30 mmol/L (22-32); Chloride 99 mmol/L (98-107); Estimated Glomerular Filt Rate > 60 mL/min (>60); Globulin 3.3 g/dL (1.7-4.1); Glucose 152 mg/dL (80-110); HEMOLYSIS < 15 (0-50); Magnesium 1.7 mg/dL (1.6-2.3); Potassium 3.3 mmol/L (3.4-5.1); Sodium 137 mmol/L (137-145); Total Protein 6.4 g/dL (6.3-8.2)
[2022-04-27] MEDS: ALBUTEROL/IPRATROPIUM 3 ML AMPUL INH ×2 (08:15→17:17)
[2022-04-27] MEDS: BUDESONIDE 0.5 MG/2 ML NEB INH ×2 (08:15→19:32)
[2022-04-27] MEDS: INSULIN LISPRO 100 UNIT/ML 3ML VIAL SUBCUT ×4 (08:21→21:47)
[2022-04-27] MEDS: INSULIN GLARGINE 100 UNIT/ML 3ML PEN 30 UNIT SUBCUT (08:22)
[2022-04-27] MEDS: DOCUSATE 100 MG CAPSULE 200 MG PO (08:24)
[2022-04-27] MEDS: PREGABALIN 50 MG CAPSULE 150 MG PO (08:24)
[2022-04-27] MEDS: SPIRONOLACTONE 25 MG TABLET 50 MG PO (08:24)
[2022-04-27] MEDS: FUROSEMIDE 20 MG TABLET PO (08:24)
[2022-04-27] MEDS: predniSONE 20 MG TABLET 5 MG PO (08:25)
[2022-04-27] MEDS: METOPROLOL ER 25 MG TABLET 12.5 MG PO ×2 (08:25→21:52)
[2022-04-27] MEDS: DULOXETINE 30 MG CAPSULE PO (08:25)
[2022-04-27] MEDS: APIXABAN 5 MG TABLET PO ×2 (08:25→21:48)
[2022-04-27] MEDS: AMIODARONE 200 MG TABLET PO (08:25)
[2022-04-27] MEDS: LOSARTAN 50 MG TABLET PO (08:26)
[2022-04-27] MEDS: cloNIDine 0.1 MG TABLET PO ×2 (08:26→21:54)
[2022-04-27] MEDS: MAGNESIUM SULFATE 2 GM/50 ML PIGGYBACK IV (09:32)
[2022-04-27] MEDS: POTASSIUM CHLORIDE 20 MEQ TAB 40 MEQ PO (09:32)
[2022-04-27] MEDS: fentaNYL 25 MCG/PATCH TOP (09:33)
--- NOTE | 2022-04-27 12:39 | PM.PN.1 ---
Subjective Subjective Date Patient Seen: 04/27/22 Time Patient Seen: 08:00 Interval history: She feels her shortness of breath is improving. But she continues to be not at baseline. She is short of breath with ambulation especially. Exam Vital Signs (past 8 hours): - 04/27/22 08:18 04/27/22 08:23 04/27/22 08:25 Temperature Pulse Rate 72 68 66 Respiratory Rate 22 22 Blood Pressure 135/68 Pulse Oximetry 97 Oxygen Flow Rate 8 04/27/22 08:26 04/27/22 08:26 04/27/22 08:00 Temperature 97.4 F L Pulse Rate 66 66 61 Respiratory Rate 17 Blood Pressure 135/68 135/68 125/52 L Pulse Oximetry 99 Oxygen Flow Rate 8 Fraction of Inspired Oxygen 100 SaO2/FiO2 Ratio 181 Oxygen Delivery Method Nasal Cannula Oxygen Flow Rate 8 Narrative Exam Narrative: General: awake, alert, no acute distress Lungs: decreased breath sounds and scattered rhonchi Heart: regular rate and rhythm, with no murmurs Abdomen: Soft Extremities: Nonedematous Objective Labs Result Diagrams: 04/27/22 06:20 04/27/22 06:20 Labs: Laboratory Results - last 24 hr 04/26/22 04/27/22 04/27/22 15:50 06:20 06:20 WBC 9.1 RBC 3.41 L Hgb 9.0 L Hct 27.9 L MCV 81.9 MCH 26.5 MCHC 32.4 RDW 18.7 H Plt Count 516 H Neut % (Auto) 76.1 H Lymph % (Auto) 14.6 L [place] % (Auto) 8.9 Eos % (Auto) 0.0 L Baso % (Auto) 0.4 Neut # (Auto) 6900 Lymph # (Auto) 1300 [place] # (Auto) 800 Eos # (Auto) 0 Baso # (Auto) 0 Sodium 137 Potassium 3.3 L Chloride 99 Carbon Dioxide 30 BUN 16 Creatinine 0.85 Estimated GFR > 60 BUN/Creatinine Ratio 18.8 Glucose 152 H Calcium 8.7 Magnesium 1.7 Total Bilirubin 0.2 AST 19 ALT 15 Alkaline Phosphatase 70 Total Protein 6.4 Albumin 3.1 L Globulin 3.3 Albumin/Globulin Ratio 0.9 L Nasal Screen MRSA (PCR) Cancelled [facility] Medical History Abnormal chest xray (~1979) Anemia Ankle pain Anticoagulated Asthma (~1959) Bronchiectasis (~2006) Cervical spine disease Chronic back pain Colon polyps (~2015) Degenerative joint disease of spine (~2001) Diabetes mellitus, type II (~2009) Eczema Fibromyalgia Foot pain Hoarseness Hyperlipidemia Hypertension Hypothyroidism Migraines (~1964) 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 Osteopenia Pneumonia Pneumonia Recurrent sinusitis (~1970) Restless leg syndrome Shoulder pain (~03/2018) Sleep apnea Wears glasses Surgical History Anesthesia History of carpal tunnel release History of cataract removal with insertion of prosthetic lens (~2014) History of section History of laminectomy (~2002) History of spinal fusion (~2012) History of thumb surgery Family History Father Stroke Mother Hypertension Brother Cerebral aneurysm Prostate cancer Diabetes mellitus Hypertension Stroke Brother Arthritis Hyperlipidemia Hypertension Sister History of kidney cancer Hypertension Grandfather Cancer Grandmother Cancer Other Family history non-contributory Social History household members: spouse Smoking Status: Never smoker alcohol intake: current Assessment & Plan Assessment & Plan narrative: 1. Acute hypoxic respiratory failure secondary to bacterial pneumonia -CXR with bilateral lower lung infiltrate; clinical presentation with fever, elevated WBC consistent with pneumonia -history of Pseudomonas in sputum in December last year which was susceptible to Zosyn and not susceptible to quinolone, patient has history of allergic reaction to cefepime -blood cultures negative to date -treat with Zosyn and doxycycline to cover g negatives including Pseudomonas as well as Staph bacteria, antibiotic management reviewed with Dr Whalen, ordered vancomycin pending MRSA swab, day 1 on 04/24, plan for 7 day course -continue O2 support abd wean as able -nebulizer treatments with RT -patient has significant underlying chronic lung disease, on azithromycin 3 times weekly, being held due to atypical bacteria coverage with doxycycline 2. Common variable immune deficiency -patient on weekly immunoglobulin subcu injections, last received on April 22 -also on daily 5 mg prednisone, continued -stop stress dose steroids as she is significantly improved 3. Type 2 diabetes insulin requiring -continue Lantus 30 units q.day and medium dose sliding scale -hold metformin 4. Chronic pain -continue on duloxetine, fentanyl patch 25 mcg with oxycodone as needed per home routine 5.? History of DVT and PE -continue Eliquis 5 mg b.i.d. 6. UTI -gram negative bacilli growing in culture -covered with Zosyn 7.? Hypertension, hyperlipidemia -continue clonidine, losartan, atorvastatin per home routine -continue low dose furosemide and spironolactone per home routine 8. Hypomagnesemia, resolved 9. Atrial fibrillation, presumed -continue amiodarone Time Spent With Patient Critical Care time: I spent a total of [] minutes of critical care time on this patient's care today; this time is exclusive of procedural time.
[2022-04-27] MEDS: ACETAMINOPHEN 325 MG TABLET 650 MG PO (13:14)
--- NOTE | 2022-04-27 14:16 | PT.IPNOTE ---
1410: Spoke with Pt, spouse and dtr. Pt declined PT at this time due to having just been up in room. Agreeable to PT returning later in afternoon.
[2022-04-27] MEDS: MORPHINE 2 MG/ML INJ IV ×2 (14:46→17:56)
--- NOTE | 2022-04-27 16:03 | PT.IIE ---
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 (04/24/22) Surgical History (Last Reviewed 04/25/22 @ 01:44 by SHARAN Holliday) Anesthesia History of carpal tunnel release History of cataract removal with insertion of prosthetic lens (~2014) History of section History of laminectomy (~2002) History of spinal fusion (~2012) History of thumb surgery Medical History (Last Reviewed 04/25/22 @ 01:44 by SHARAN Holliday) Abnormal chest xray (~1979) Anemia Ankle pain Anticoagulated Asthma (~1959) Bronchiectasis (~2006) Cervical spine disease Chronic back pain Colon polyps (~2015) Degenerative joint disease of spine (~2001) Diabetes mellitus, type II (~2009) Eczema Fibromyalgia Foot pain Hoarseness Hyperlipidemia Hypertension Hypothyroidism Migraines (~1964) 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 Osteopenia Pneumonia Pneumonia Recurrent sinusitis (~1970) Restless leg syndrome Shoulder pain (~03/2018) Sleep apnea Wears glasses Physical Therapy Inpatient Evaluation/Re-Eval M1 PT/OT-IP Prior Functional Status Start: 04/27/22 15:42 Freq: Status: Active Protocol: Document 04/27/22 15:42 (Rec: 04/27/22 16:03 [id number]) Medical Review Prior Functional Status Medical History Reviewed Yes Diet/Fluid Consistency Regular Mobility and Gait Use of 4WW or wheelchair for home mobility and w/c for community mobility. Spouse assists with sit to stand and sit<>supine transfers at home. Activities of Daily Living and IADL's Spouse assisted with ADLs both self care and home care. Prior Functional Level (Other details) Pt lives with spouse. 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 2 steps to enter with railing. They do have a portable ramp but have not had to use it in the past. Home Environment High Toilet,Walk in Shower, Built-In Shower Seat Home Equipment Front Wheel Walker,Four Wheel Walker,Straight Cane,Manual Wheelchair,Hand Held Shower, Grab Bars Near Toilet,Grab Bars In Shower Employment Status Retired Additional Social History Comment Adjustable bed M2 PT-IP Current Condition Start: 04/27/22 15:42 Freq: Status: Active Protocol: Document 04/27/22 15:42 BC (Rec: 04/27/22 16:03 [id number]) Physical Therapy Current Condition Current Condition Evaluation Date 04/27/22 Treatment Diagnosis PNA; difficulty with ambulation Onset Date 04/26/22 M3 PT-IP Subjective Start: 04/27/22 15:42 Freq: Status: Active Protocol: Document 04/27/22 15:42 BC (Rec: 04/27/22 16:03 [id number]) Subjective Physical Therapy Visit Type Type Initial Evaluation Visit Start Time 15:10 Visit Stop Time 15:40 Total Visit Minutes 30 Physical Therapy Visit Comments Patient Comments Pt reporting chronic hip/back/ SI pain. States it is not more severe just that she is fearful the recent injections did not help this time. Patient Goals None specific stated. She is hoping to discharge home. Therapy Pain Assessment Pain When Pain Assessed During Mobility Pain Present Pain Present Pain Reported Location Lower Back Intensity 5 Scale Used Numeric (0 - 10) Description Chronic Pain Management Techniques Re-positioning M4 PT-IP Mobility and Gait Start: 04/27/22 15:42 Freq: Status: Active Protocol: Document 04/27/22 15:42 BC (Rec: 04/27/22 16:03 [id number]) PT-Bed Mobility Assessment Rolling Type of Rolling Log Rolling,Roll to Left Level of Assist Contact Guard Assistance Supine to Sit Supine to Sit Minimal Assistance Sit to Supine Sit to Supine Minimal Assistance Scooting Scooting to Edge of Bed Contact Guard Assistance Scooting Up and Down in Bed Moderate Assistance PT-Transfer Assessment Sit to and From Stand Sit to and from Stand Contact Guard Assistance Equipment Transfer Assistive Device Gait Belt,Front Wheeled Walker Transfers Transfer Destination Bed Transfer Technique Stand Step Pivot Transfer Ability Level of Assist Contact Guard Assistance, Minimal Assistance Comments Mobility Comments Lateral steps along edge of bed with FWW. STS x2 reps EOB and lateral steps to L along EOB completed in 2 sets. Pt declined sitting up in chair due to hip/lumbar discomfort. She was able to tolerate chair position of bed at end of session. Gait Assessment Comments Gait Comments Unable at this time other than pivot steps along EOB and to recliner/BSC. Pt declined ambulation due to shakiness and fatigue. Stair Climbing Assessment Comments Stair Climbing Comments not assessed at this time PT-Balance Assessment Sitting Balance and Reactions Static Sitting Balance Ability Normal Dynamic Sitting Balance Ability Normal Standing Balance and Reactions Static Standing Balance Ability Good Dynamic Standing Balance Ability Fair Device Used FWW M5 PT-IP Objective Assessments Start: 04/27/22 15:42 Freq: Status: Active Protocol: Document 04/27/22 15:42 BC (Rec: 04/27/22 16:03 [id number]) Orientation Orientation/Cognition Level of Alertness Alert Orientation Name,Date,Place,Situation Language Function Ability No Deficits Noted Safety Awareness Understands Safety Issues Memory Description No Deficits Noted Strength Comments Strength Comments Not formally assessed. Functionally presenting atleast 3+ to 4/5 BLE strength . She has chronic R sided hip/ flank and SI pain that limits R hip ROM. Coordination Assessment Gross Coordination Gross Coordination WNL M6 PT-IP Treatment Start: 04/27/22 15:42 Freq: Status: Active Protocol: Document 04/27/22 15:42 BC (Rec: 04/27/22 16:03 [id number]) Physical Therapy Treatment Education Education Provided Safety Other Treatments Other Treatment Performed Educated on benefit of upright position in relation to lung function. We reviewed her limitations as being both hip/ SI pain but also O2 sat with activity. PLB during activity. Energy conservation. M7 PT-IP Assessment and Plan Start: 04/27/22 15:42 Freq: Status: Active Protocol: Document 04/27/22 15:42 BC (Rec: 04/27/22 16:03 [id number]) PT Summary Assessment and Plan Potential Rehabilitation Potential Good Status of Condition at Evaluation Evolving Summary Impairments Pain,Bed Mobility,Transfers, Gait,Activity Tolerance Progress Towards Goals Slow Progress due to Medical Issues Assessment Summary Pt admitted due to acute respiratory failure from PNA. Pt has history of immune deficiency that she reports has weakened her lungs. Her baseline as she and spouse report is ambulatory 30-40' in home with 4WW and at times spouse will assist her with w/ c in the home. Spouse also assists with ADLs and sit to stand transfers. She has excellent family support. CLOF : Pt is requiring min to CGA for bed mobility and transfers . Seated upright increases her hip/back/SI pain but in standing she is limited due to O2 sat. O2 on 4L at rest is 93-94%, O2 with upright activity and standing is 88-89 %. Per spouse she ranges from 3-5L at home. She does not require significant physical assist but she is limited in mobility due to O2 sat and activity tolerance. I anticipate that she will be able to discharge home given her PLOF vs CLOF and assist level she has from spouse. They may need to use w/c and ramp for access to home unless she can progress to stair training during this LOS. Goals Bed Mobility Goal Standby Assistance Transfer Goal Standby Assistance Gait Goal Standby Assistance Gait Distance 30-40' Other Goals Ascend/descend 2 steps with railing - if this goal is not safely achieved discuss use of portable ramp with spouse. Days to Meet Goals 4 Frequency of Treatment Frequency Of Treatment Once a Day Treatment Plan Physical Therapy Treatment Plan Bed Mobility Training,Transfer Training,Gait Training, Therapeutic Exercise,Balance Retraining,Discharge Planning, Neuromuscular Re-ed, Coordination Retraining Recommendations To Nursing Amount of Assist Needed 1 Person Assist Discharge Recommendations PT Discharge Recommendations Home with Assistance,Home Health Transportation Needs at Discharge Private Vehicle,Wheelchair/ Cabulance
[2022-04-27] MEDS: ATORVASTATIN 20 MG TABLET 40 MG PO (21:47)
[2022-04-27] MEDS: MONTELUKAST 10 MG TABLET PO (21:48)
[2022-04-27] MEDS: PRAMIPEXOLE 0.25 MG TABLET 0.5 MG PO (21:48)
[2022-04-27] MEDS: NORTRIPTYLINE HCL 25 MG CAPSULE PO (21:48)
[2022-04-27] MEDS: OXYCODONE IR 5 MG TABLET PO (21:51)
[2022-04-27] MEDS: methocarbamoL 500 MG TABLET PO (21:51)
[2022-04-28] VITALS (14 sets, daily range): BP systolic 126–152; BP diastolic 51–91; PULSE 67–81; RESP 16–20; TEMP 36.3–36.8; O2SAT 90–100
[2022-04-28] MEDS: DOXYCYCLINE 100 MG in SODIUM CHLORIDE 0.9% 100 ML IV ×2 (00:46→14:17)
[2022-04-28] MEDS: PIPERACILLIN/TAZO 3.375 GM in SODIUM CHLORIDE 0.9% 100 ML IV ×3 (02:13→18:35)
[2022-04-28] MEDS: ALBUTEROL 2.5 MG/3 ML NEB (ADULT) INH (02:17)
[2022-04-28] MEDS: OXYCODONE IR 5 MG TABLET PO ×2 (02:19→10:01)
[2022-04-28 05:02] LABS: Hematocrit 26.6 % (36-46); Hemoglobin 8.6 g/dL (12.0-16.0); Mean Corpuscular HGB Conc 32.4 % (30-36); Mean Corpuscular Hemoglobin 26.7 PG (26-34); Mean Corpuscular Volume 82.3 fL (80-100); Platelet Count 492 X10^3/uL (150-400); Red Blood Cell Count 3.23 X10^6/uL (4.0-5.2); Red Cell Distribution Width 18.8 % (11.6-14.8); White Blood Cell Count 6.7 X10^3/uL (4.5-11.0)
[2022-04-28 05:12] LABS: BUN Creatinine Ratio 20.5 (6-22); Blood Urea Nitrogen 17 mg/dL (7-17); Calcium 8.4 mg/dL (8.4-10.2); Carbon Dioxide 30 mmol/L (22-32); Chloride 101 mmol/L (98-107); Estimated Glomerular Filt Rate > 60 mL/min (>60); Glucose 145 mg/dL (80-110); HEMOLYSIS < 15 (0-50); Potassium 3.7 mmol/L (3.4-5.1); Sodium 137 mmol/L (137-145)
[2022-04-28] MEDS: LEVOTHYROXINE 75 MCG TABLET PO (06:02)
[2022-04-28] MEDS: PANTOPRAZOLE DR 20 MG TABLET PO ×2 (06:02→20:39)
[2022-04-28] MEDS: BUDESONIDE 0.5 MG/2 ML NEB INH ×2 (08:23→20:04)
[2022-04-28] MEDS: INSULIN LISPRO 100 UNIT/ML 3ML VIAL SUBCUT ×4 (08:23→20:44)
[2022-04-28] MEDS: ALBUTEROL/IPRATROPIUM 3 ML AMPUL INH ×3 (08:23→20:04)
[2022-04-28] MEDS: INSULIN GLARGINE 100 UNIT/ML 3ML PEN 30 UNIT SUBCUT (08:24)
[2022-04-28] MEDS: PREGABALIN 50 MG CAPSULE 150 MG PO (08:25)
[2022-04-28] MEDS: predniSONE 20 MG TABLET 5 MG PO (08:25)
[2022-04-28] MEDS: METOPROLOL ER 25 MG TABLET 12.5 MG PO ×2 (08:26→20:38)
[2022-04-28] MEDS: DOCUSATE 100 MG CAPSULE 200 MG PO (08:26)
[2022-04-28] MEDS: FUROSEMIDE 20 MG TABLET PO (08:26)
[2022-04-28] MEDS: SPIRONOLACTONE 25 MG TABLET 50 MG PO (08:26)
[2022-04-28] MEDS: LOSARTAN 50 MG TABLET PO (08:27)
[2022-04-28] MEDS: AMIODARONE 200 MG TABLET PO (08:27)
[2022-04-28] MEDS: cloNIDine 0.1 MG TABLET PO ×2 (08:27→20:39)
[2022-04-28] MEDS: APIXABAN 5 MG TABLET PO ×2 (08:27→20:39)
[2022-04-28] MEDS: DULOXETINE 30 MG CAPSULE PO (08:27)
[2022-04-28] MEDS: OXYMETAZOLINE NASAL SPRAY 15 ML 2 SPRAYS NASAL (11:01)
--- NOTE | 2022-04-28 11:41 | CM.DPC ---
Addendum entered by Veronica Colon R.N. 04/28/22 15:51: Checked in with hospitalist regarding home Iv antibiotics. Stated, patient is not yet medically stable, but will need to be on IV Zosyn until 05/02, which is TID. Went ahead and left a message with Carroll at [facility], and faxed over the H&P, today's progress note, face sheet, and med sheet showing the current IV ABO. Confirmed that patient does have a mid line. Can follow up with [facility] tomorrow, should patient be ready for discharge this weekend. 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 Original Note: DCP Cont: Discussed patient during team rounds. Hospitalist indicated, there may be a chance that patient will need a few more days of IV ABO. Asked if she has PICC line currently, and hospitalist will look into it. He will update this DC Skin Toggler today regarding home need for IV ABO. P: DCP to continue to follow closely for needs. The plan is home with [facility], but undetermined if she will need home IV therapy. Veronica Colon RN/Heat Treat Operator
--- NOTE | 2022-04-28 12:33 | PM.PN.1 ---
Subjective Subjective Date Patient Seen: 04/28/22 Time Patient Seen: 08:00 Interval history: She feels her shortness of breath is improving. But she continues to be not at baseline. She is short of breath with ambulation especially. Complained of increased hip and low back pain today. Exam Vital Signs (past 8 hours): - 04/28/22 06:00 04/28/22 08:26 04/28/22 08:27 Temperature 98.2 F Pulse Rate 67 75 75 Respiratory Rate 18 Blood Pressure 141/84 H 151/91 H 151/91 H Pulse Oximetry 98 Oxygen Delivery Method Oxygen Flow Rate 5 04/28/22 08:27 04/28/22 08:24 04/28/22 09:00 Temperature 98.1 F Pulse Rate 75 67 74 Respiratory Rate 16 17 Blood Pressure 151/91 H 151/91 H Pulse Oximetry 96 94 Oxygen Delivery Method High Flow Nasal Cannula Oxygen Flow Rate 3 2.5 04/28/22 09:02 Temperature Pulse Rate 81 Respiratory Rate Blood Pressure 126/51 L Pulse Oximetry Oxygen Delivery Method Oxygen Flow Rate Fraction of Inspired Oxygen 100 SaO2/FiO2 Ratio 181 Oxygen Delivery Method High Flow Nasal Cannula Oxygen Flow Rate 2.5 Narrative Exam Narrative: General: awake, alert, no acute distress Lungs: decreased breath sounds and scattered rhonchi Heart: regular rate and rhythm, with no murmurs Abdomen: Soft non-tender, non-distended Extremities: Nonedematous, no joint effusions. Objective Labs Result Diagrams: 04/28/22 04:55 04/28/22 04:55 Labs: Laboratory Results - last 24 hr 04/28/22 04/28/22 04:55 04:55 WBC 6.7 RBC 3.23 L Hgb 8.6 L Hct 26.6 L MCV 82.3 MCH 26.7 MCHC 32.4 RDW 18.8 H Plt Count 492 H Sodium 137 Potassium 3.7 Chloride 101 Carbon Dioxide 30 BUN 17 Creatinine 0.83 Estimated GFR > 60 BUN/Creatinine Ratio 20.5 Glucose 145 H Calcium 8.4 PFSH Medical History Abnormal chest xray (~1979) Anemia Ankle pain Anticoagulated Asthma (~1959) Bronchiectasis (~2006) Cervical spine disease Chronic back pain Colon polyps (~2015) Degenerative joint disease of spine (~2001) Diabetes mellitus, type II (~2009) Eczema Fibromyalgia Foot pain Hoarseness Hyperlipidemia Hypertension Hypothyroidism Migraines (~1964) 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 Osteopenia Pneumonia Pneumonia Recurrent sinusitis (~1970) Restless leg syndrome Shoulder pain (~03/2018) Sleep apnea Wears glasses Surgical History Anesthesia History of carpal tunnel release History of cataract removal with insertion of prosthetic lens (~2014) History of section History of laminectomy (~2002) History of spinal fusion (~2012) History of thumb surgery Family History Father Stroke Mother Hypertension Brother Cerebral aneurysm Prostate cancer Diabetes mellitus Hypertension Stroke Brother Arthritis Hyperlipidemia Hypertension Sister History of kidney cancer Hypertension Grandfather Cancer Grandmother Cancer Other Family history non-contributory Social History household members: spouse Smoking Status: Never smoker alcohol intake: current Assessment & Plan Assessment & Plan narrative: 1. Acute on chronic hypoxic respiratory failure secondary to bacterial pneumonia -CXR with bilateral lower lung infiltrate; clinical presentation with fever, elevated WBC consistent with pneumonia -history of Pseudomonas in sputum in December last year which was susceptible to Zosyn and not susceptible to quinolone, patient has history of allergic reaction to cefepime -blood cultures negative to date -treat with Zosyn and doxycycline to cover g negatives including Pseudomonas as well as Staph bacteria, antibiotic management reviewed with Dr Whalen of infectious disease, ordered vancomycin pending MRSA swab, day 1 on 04/24, plan for 7 day course -continue O2 support abd wean as able, now back to baseline O2 requirements but remains dyspnic on exertion moreso than baseline. -nebulizer treatments with RT -patient has significant underlying chronic lung disease, on azithromycin 3 times weekly, being held due to atypical bacteria coverage with doxycycline 2. Common variable immune deficiency -patient on weekly immunoglobulin subcu injections, last received on April 22 -also on daily 5 mg prednisone, continued -stopped stress dose steroids as she is significantly improved 3. Type 2 diabetes insulin requiring -continue Lantus 30 units q.day and medium dose sliding scale -hold metformin 4. Chronic pain -continue on duloxetine, fentanyl patch 25 mcg with oxycodone as needed per home routine. Increased oxycodone today with increased hip / back pain. 5.? History of DVT and PE -continue Eliquis 5 mg b.i.d. 6. UTI secondary to E. coli -culture growing E. coli, resistant to multiple organisms but based on sensitivities can likely continue zosyn. -covered with Zosyn 7.? Hypertension, hyperlipidemia -continue clonidine, losartan, atorvastatin per home routine -continue low dose furosemide and spironolactone per home routine 8. Hypomagnesemia, resolved - continue to monitor levels 9. Atrial fibrillation, presumed -continue amiodarone Dispo: May need to complete antibiotic course here given need for zosyn therapy for 7 days. Possible she can complete antibiotic course at home but remains weak and dyspnic on exertion today. Time Spent With Patient Critical Care time: I spent a total of [] minutes of critical care time on this patient's care today; this time is exclusive of procedural time.
--- NOTE | 2022-04-28 12:44 | PT.IPTN ---
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) Physical Therapy Treatment Note M2 PT-IP Current Condition Start: 04/27/22 15:42 Freq: Status: Active Protocol: Document 04/28/22 12:05 DCW (Rec: 04/28/22 12:44 DCW [id number]) Physical Therapy Current Condition Current Condition Evaluation Date 04/27/22 Treatment Diagnosis PNA; difficulty with ambulation Onset Date 04/26/22 M3 PT-IP Subjective Start: 04/27/22 15:42 Freq: Status: Active Protocol: Document 04/28/22 12:05 DCW (Rec: 04/28/22 12:44 [id number] [id number]) Subjective Physical Therapy Visit Type Type Treatment Note Visit Start Time 12:05 Visit Stop Time 12:30 Total Visit Minutes 25 Number of CHECK PROCESSOR Visits 0 Physical Therapy Visit Comments Patient Comments Pt having some slight trouble with SOB, feels she would do better if she had a breathing treatment first, however understands that it's busy and would prefer to get through PT while she has the chance. M4 PT-IP Mobility and Gait Start: 04/27/22 15:42 Freq: Status: Active Protocol: Document 04/28/22 12:05 DCW (Rec: 04/28/22 12:44 DCW [id number]) PT-Bed Mobility Assessment Rolling Type of Rolling Log Rolling,Roll to Left Level of Assist Standby Assistance Supine to Sit Supine to Sit Contact Guard Assistance Scooting Scooting to Edge of Bed Contact Guard Assistance PT-Transfer Assessment Sit to and From Stand Sit to and from Stand Standby Assistance Equipment Transfer Assistive Device Bed Rail,Front Wheeled Walker Comments Mobility Comments Pt able to perform supine-> sitting EOB bed mobility with SBA, did quickly fatigue. After rest, sit->stand performed SBA using bed rails and FWW. Pt able to take 4-5 steps SBA /c FWW to sit in recliner. Main assistance needed secondary to line management. M5 PT-IP Objective Assessments Start: 04/27/22 15:42 Freq: Status: Active Protocol: Document 04/27/22 15:42 BC (Rec: 04/27/22 16:03 BC [id number]) Orientation Orientation/Cognition Level of Alertness Alert Orientation Name,Date,Place,Situation Language Function Ability No Deficits Noted Safety Awareness Understands Safety Issues Memory Description No Deficits Noted Strength Comments Strength Comments Not formally assessed. Functionally presenting atleast 3+ to 4/5 BLE strength . She has chronic R sided hip/ flank and SI pain that limits R hip ROM. Coordination Assessment Gross Coordination Gross Coordination WNL M6 PT-IP Treatment Start: 04/27/22 15:42 Freq: Status: Active Protocol: Document 04/27/22 15:42 BC (Rec: 04/27/22 16:03 BC [id number]) Physical Therapy Treatment Education Education Provided Safety Other Treatments Other Treatment Performed Educated on benefit of upright position in relation to lung function. We reviewed her limitations as being both hip/ SI pain but also O2 sat with activity. PLB during activity. Energy conservation. M7 PT-IP Assessment and Plan Start: 04/27/22 15:42 Freq: Status: Active Protocol: Document 04/28/22 12:05 DCW (Rec: 04/28/22 12:44 DCW [id number]) PT Summary Assessment and Plan Summary Impairments Pain,Bed Mobility,Transfers, Gait,Activity Tolerance Progress Towards Goals Slow Progress due to Medical Issues Assessment Summary Pt was on 3L O2 via nc throughout entire treatment session. At start of session propped up in bed, pt was at 91% O2 sat at rest. Just attempting to get sitting at EOB, O2 sat dropped to 87%, pt needed to stop and rest with PLB long-term through attempted supine->sit. Pt then made it to EOB, O2 sat recovered 88%-> 92%. Pt able to sit->stand, take 4-5 steps, turn, and sit in recliner SBA, although therapist needed for significant amount of line management. Pt very fatigued with this small amount of gait , O2 sat dropped as low as 85% . Pt recovered quickly to 91% with rest, but does not want to perform more ambulation at this time, would like to sit in chair for lunch. Pt , son, and RN all in room at end of therapy session, pt needs met. Goals Bed Mobility Goal Standby Assistance Transfer Goal Standby Assistance Gait Goal Standby Assistance Gait Distance 30-40' Other Goals Ascend/descend 2 steps with railing - if this goal is not safely achieved discuss use of portable ramp with spouse. Days to Meet Goals 4 Frequency of Treatment Frequency Of Treatment Once a Day Treatment Plan Physical Therapy Treatment Plan Bed Mobility Training,Transfer Training,Gait Training, Therapeutic Exercise,Balance Retraining,Discharge Planning, Neuromuscular Re-ed, Coordination Retraining Recommendations To Nursing Amount of Assist Needed 1 Person Assist Discharge Recommendations PT Discharge Recommendations Home with Assistance,Home Health Transportation Needs at Discharge Private Vehicle,Wheelchair/ Cabulance
[2022-04-28] MEDS: OXYCODONE IR 10 MG TABLET PO (13:05)
[2022-04-28] MEDS: LORATADINE 10 MG TABLET PO (16:51)
[2022-04-28] MEDS: NORTRIPTYLINE HCL 25 MG CAPSULE PO (20:38)
[2022-04-28] MEDS: PRAMIPEXOLE 0.25 MG TABLET 0.5 MG PO (20:39)
[2022-04-28] MEDS: ATORVASTATIN 20 MG TABLET 40 MG PO (20:39)
[2022-04-28] MEDS: MONTELUKAST 10 MG TABLET PO (20:39)
[2022-04-29] VITALS (15 sets, daily range): BP systolic 109–166; BP diastolic 43–79; PULSE 62–75; RESP 17–20; TEMP 36.1–36.6; O2SAT 93–99
[2022-04-29] MEDS: DOXYCYCLINE 100 MG in SODIUM CHLORIDE 0.9% 100 ML IV ×2 (01:26→14:21)
[2022-04-29] MEDS: PIPERACILLIN/TAZO 3.375 GM in SODIUM CHLORIDE 0.9% 100 ML IV ×3 (02:36→17:36)
--- NOTE | 2022-04-29 04:20 | PC.NURSE ---
Pt is AxOx4, needs 2 person assistance and cooperative. VSS, pt denies pain. Pt is on cpap at night and 3L NC while awake. Lungs clear and diminished throughout. BG-194 so pt recieved 2 units of Lispro. Pt slept well. No other changes.
[2022-04-29] MEDS: OXYCODONE IR 10 MG TABLET PO ×4 (05:15→21:57)
[2022-04-29] MEDS: LEVOTHYROXINE 75 MCG TABLET PO (06:07)
[2022-04-29] MEDS: PANTOPRAZOLE DR 20 MG TABLET PO ×2 (06:07→22:02)
[2022-04-29] MEDS: BUDESONIDE 0.5 MG/2 ML NEB INH ×2 (07:41→22:15)
[2022-04-29] MEDS: ALBUTEROL/IPRATROPIUM 3 ML AMPUL INH ×2 (07:41→14:18)
[2022-04-29] MEDS: INSULIN LISPRO 100 UNIT/ML 3ML VIAL SUBCUT ×4 (08:28→21:52)
[2022-04-29] MEDS: INSULIN GLARGINE 100 UNIT/ML 3ML PEN 30 UNIT SUBCUT (08:30)
[2022-04-29] MEDS: predniSONE 20 MG TABLET 5 MG PO (08:35)
[2022-04-29] MEDS: DOCUSATE 100 MG CAPSULE 200 MG PO (08:35)
[2022-04-29] MEDS: LOSARTAN 50 MG TABLET PO (08:35)
[2022-04-29] MEDS: METOPROLOL ER 25 MG TABLET 12.5 MG PO ×2 (08:36→21:49)
[2022-04-29] MEDS: PREGABALIN 50 MG CAPSULE 150 MG PO (08:38)
[2022-04-29] MEDS: AMIODARONE 200 MG TABLET PO (08:38)
[2022-04-29] MEDS: DULOXETINE 30 MG CAPSULE PO (08:38)
[2022-04-29] MEDS: FUROSEMIDE 20 MG TABLET PO (08:39)
[2022-04-29] MEDS: APIXABAN 5 MG TABLET PO ×2 (08:39→21:50)
[2022-04-29] MEDS: LORATADINE 10 MG TABLET PO (08:39)
[2022-04-29] MEDS: SPIRONOLACTONE 25 MG TABLET 50 MG PO (08:39)
[2022-04-29] MEDS: cloNIDine 0.1 MG TABLET PO ×2 (08:39→21:51)
--- NOTE | 2022-04-29 09:38 | PT.IPTN ---
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 (04/24/22) Physical Therapy Treatment Note M2 PT-IP Current Condition Start: 04/27/22 15:42 Freq: Status: Active Protocol: Document 04/28/22 12:05 DCW (Rec: 04/28/22 12:44 DCW [id number]) Physical Therapy Current Condition Current Condition Evaluation Date 04/27/22 Treatment Diagnosis PNA; difficulty with ambulation Onset Date 04/26/22 M3 PT-IP Subjective Start: 04/27/22 15:42 Freq: Status: Active Protocol: Document 04/29/22 09:38 AW (Rec: 04/29/22 09:55 AW [id number]) Subjective Physical Therapy Visit Type Type Treatment Note Visit Start Time 09:13 Visit Stop Time 09:38 Total Visit Minutes 25 Notes Pt's spouse was present for most of session. Physical Therapy Visit Comments Patient Comments Pt having some R hip/SIJ pain but wants to get up and move. Therapy Pain Assessment Pain When Pain Assessed During Mobility Pain Present Pain Present Pain Reported Location Lower Back Intensity 4 Scale Used Numeric (0 - 10) Pain Management Techniques Modification of Treatment,Re- positioning M4 PT-IP Mobility and Gait Start: 04/27/22 15:42 Freq: Status: Active Protocol: Document 04/29/22 09:38 AW (Rec: 04/29/22 09:55 AW [id number]) PT-Bed Mobility Assessment Rolling Type of Rolling Roll to Right Level of Assist Standby Assistance Supine to Sit Supine to Sit Minimal Assistance,Bedrails Scooting Scooting to Edge of Bed Contact Guard Assistance PT-Transfer Assessment Sit to and From Stand Sit to and from Stand Standby Assistance Equipment Transfer Assistive Device Gait Belt,4 Wheeled Walker Transfers Transfer Destination Chair Transfer Technique ambulated with 4WW Transfer Ability Level of Assist Contact Guard Assistance,Use of Upper Extremities Comments Mobility Comments SpO2 92% on 2.5 L/min at rest. Pt needing min A for supine to sit today. SpO2 dropped to 88%. Pt states she typically uses 3L/min during the day at home. Titrated O2 up to 3L and SpO2 recovered quickly. Pt stood at EOB but complained of increased R hip/SIJ pain and needed to sit after 10 seconds . Pt stood again SBA and used 4WW to ambulate around the foot of the bed and to transfer to the chair. Pt has 4 platform in the room which was placed under her feet. SpO2 was stable 90-92%. Pt was left in the chair with call light in reach. Gait Assessment Gait Gait Assistance Required: Standby Assistance,Contact Guard Assist Distance (Feet) 20 Assistive Devices Assistive Device Gait Belt,4 Wheeled Walker Gait Deviations General Gait Pattern Antalgic,Decreased Stride Length,Decreased Feet Clearance,Flexed Trunk Factors Limiting Gait Function Factors Limiting Gait Function Decreased Activity Tolerance, Decreased Strength,Respiratory Distress Comments Gait Comments Pt walked around the foot of the bed with 4WW. She took one standing rest break to focus on her breathing. SpO2 was stable 90-92% on 3 L/min. Stair Climbing Assessment Comments Stair Climbing Comments not assessed at this time PT-Balance Assessment Sitting Balance and Reactions Static Sitting Balance Ability Normal Dynamic Sitting Balance Ability Normal Standing Balance and Reactions Static Standing Balance Ability Good Dynamic Standing Balance Ability Fair Device Used 4WW M5 PT-IP Objective Assessments Start: 04/27/22 15:42 Freq: Status: Active Protocol: Document 04/27/22 15:42 BC (Rec: 04/27/22 16:03 BC [id number]) Orientation Orientation/Cognition Level of Alertness Alert Orientation Name,Date,Place,Situation Language Function Ability No Deficits Noted Safety Awareness Understands Safety Issues Memory Description No Deficits Noted Strength Comments Strength Comments Not formally assessed. Functionally presenting atleast 3+ to 4/5 BLE strength . She has chronic R sided hip/ flank and SI pain that limits R hip ROM. Coordination Assessment Gross Coordination Gross Coordination WNL M6 PT-IP Treatment Start: 04/27/22 15:42 Freq: Status: Active Protocol: Document 04/29/22 09:38 AW (Rec: 04/29/22 09:55 AW [id number]) Physical Therapy Treatment Education Education Provided Safety Other Treatments Other Treatment Performed Educated on increasing time in upright position for lung function. M7 PT-IP Assessment and Plan Start: 04/27/22 15:42 Freq: Status: Active Protocol: Document 04/29/22 09:38 AW (Rec: 04/29/22 09:55 AW [id number]) PT Summary Assessment and Plan Summary Impairments Pain,Bed Mobility,Transfers, Gait,Activity Tolerance Progress Towards Goals Slow Progress due to Medical Issues Assessment Summary Pt was able to stand from the bed and use 4WW to walk 20 feet and transfer to the chair . SpO2 on 2.5 lpm O2 was 92% at rest. Pt needed 3 lpm during activity to maintain 90 -92%. Good increase in activity tolerance today. Goals Bed Mobility Goal Standby Assistance Transfer Goal Standby Assistance Gait Goal Standby Assistance Gait Distance 30-40' Other Goals Ascend/descend 2 steps with railing - if this goal is not safely achieved discuss use of portable ramp with spouse. Days to Meet Goals 4 Frequency of Treatment Frequency Of Treatment Once a Day Treatment Plan Physical Therapy Treatment Plan Bed Mobility Training,Transfer Training,Gait Training, Therapeutic Exercise,Balance Retraining,Discharge Planning, Neuromuscular Re-ed, Coordination Retraining Recommendations To Nursing Amount of Assist Needed 1 Person Assist Discharge Recommendations PT Discharge Recommendations Home with Assistance,Home Health Transportation Needs at Discharge Private Vehicle,Wheelchair/ Cabulance
[2022-04-29] MEDS: OXYMETAZOLINE NASAL SPRAY 15 ML 2 SPRAYS NASAL ×2 (10:58→22:01)
--- NOTE | 2022-04-29 11:17 | CM.DPC ---
Addendum entered by Veronica Colon R.N. 04/29/22 15:22: Spoke to Isak, confirmed that nursing will be in the home tomorrow at 1230. [address] Nance if he could do a prescription, per pharmacist at [facility] early, so they can mix the medication. He completed it, faxed it over to [facility], kept original behind face sheet. Spoke to patient and spouse, Harjeet, at bedside. They are aware and happy with the plan for tomorrow. Addendum entered by Veronica Colon R.N. 04/29/22 11:59: Spoke to nurse, Reina. She was initially going to set up home visit today at 1500, as patient gets her IV ABO, Zosyn, which she is getting at 0200, 1000, [address]. Updated Dr. Nance, asked him to do a script, and adding that midline could be DC's once ABO done. He just has seen patient, and wants to keep her another day. Called Arahs back at [facility]. He will consult with nurseReina, and see if they have a spot for tomorrow. Original Note: DCP Cont: Patient may be ready for discharge this weekend. Had left a message with Carroll at [facility] yesterday. Spoke to Isak, pharmacist at [facility]. His number is: [phone]. He will try to get a nurse here at the hospital for some teaching at 1600, but will call back to confirm. They are familiar with patient, they have seen her before. P: DCP to continue to follow and work on getting patient home on IV ABO, Zosyn. She will need until Sunday. Veronica Colon, HARSHAD/Electron Beam Photo Mask Maker
--- NOTE | 2022-04-29 11:56 | PC.NURSE ---
Pt a&o attentive at bedside. Meds as ordered. CM Flor discussing discharge needs and setting up [facility]. Dr. Nance is saying d/c tomorrow.
--- NOTE | 2022-04-29 14:48 | PM.PN.1 ---
Subjective Subjective Date Patient Seen: 04/29/22 Interval history: She feels her shortness of breath is improving. But she continues to be not at baseline. She is short of breath with ambulation especially. hip and low back pain today are improved. Exam Vital Signs (past 8 hours): - 04/29/22 07:41 04/29/22 08:35 04/29/22 08:36 Temperature Pulse Rate 64 62 62 Respiratory Rate 18 Blood Pressure 153/50 H 153/50 H Pulse Oximetry 95 Oxygen Delivery Method Nasal Cannula Oxygen Flow Rate 2 Fraction of Inspired Oxygen 28 04/29/22 08:39 04/29/22 09:00 04/29/22 12:00 Temperature 97.1 F L 97.0 F L Pulse Rate 62 62 63 Respiratory Rate 17 17 Blood Pressure 153/50 H 153/50 H 121/57 L Pulse Oximetry 94 96 Oxygen Delivery Method Oxygen Flow Rate 2.5 3.5 Fraction of Inspired Oxygen 04/29/22 14:18 Temperature Pulse Rate 75 Respiratory Rate 18 Blood Pressure Pulse Oximetry 93 Oxygen Delivery Method Nasal Cannula Oxygen Flow Rate 3 Fraction of Inspired Oxygen 32 Fraction of Inspired Oxygen 32 SaO2/FiO2 Ratio 290 Oxygen Delivery Method Nasal Cannula Oxygen Flow Rate 3 Narrative Exam Narrative: General: awake, alert, no acute distress Lungs: decreased breath sounds and scattered rhonchi Heart: regular rate and rhythm, with no murmurs Abdomen: Soft non-tender, non-distended Extremities: Nonedematous, no joint effusions. 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 Osteopenia Pneumonia Pneumonia Recurrent sinusitis (~1970) Restless leg syndrome Shoulder pain (~03/2018) Sleep apnea Wears glasses Surgical History Anesthesia History of carpal tunnel release History of cataract removal with insertion of prosthetic lens (~2014) History of section History of laminectomy (~2002) History of spinal fusion (~2012) History of thumb surgery Family History Father Stroke Mother Hypertension Brother Cerebral aneurysm Prostate cancer Diabetes mellitus Hypertension Stroke Brother Arthritis Hyperlipidemia Hypertension Sister History of kidney cancer Hypertension Grandfather Cancer Grandmother Cancer Other Family history non-contributory Social History household members: spouse Smoking Status: Never smoker alcohol intake: current Assessment & Plan Assessment & Plan narrative: 1. Acute on chronic hypoxic respiratory failure secondary to bacterial pneumonia -CXR with bilateral lower lung infiltrate; clinical presentation with fever, elevated WBC consistent with pneumonia -history of Pseudomonas in sputum in December last year which was susceptible to Zosyn and not susceptible to quinolone, patient has history of allergic reaction to cefepime -blood cultures negative to date -treat with Zosyn and doxycycline to cover g negatives including Pseudomonas as well as Staph bacteria, antibiotic management reviewed with Dr Whalen of infectious disease, ordered vancomycin pending MRSA swab, day 1 on 04/25, plan for 7 day course to end on 05/02. Discussed today with [facility] to coordinate outpatient therapy, planned to start tomorrow. -continue O2 support abd wean as able, now back to baseline O2 requirements but remains dyspnic on exertion moreso than baseline. -nebulizer treatments with RT -patient has significant underlying chronic lung disease, on azithromycin 3 times weekly, being held due to atypical bacteria coverage with doxycycline 2. Common variable immune deficiency -patient on weekly immunoglobulin subcu injections, last received on April 22 -also on daily 5 mg prednisone, continued -stopped stress dose steroids as she is significantly improved 3. Type 2 diabetes insulin requiring -continue Lantus 30 units q.day and medium dose sliding scale -hold metformin 4. Chronic pain -continue on duloxetine, fentanyl patch 25 mcg with oxycodone as needed per home routine. Increased oxycodone today with increased hip / back pain. 5.? History of DVT and PE -continue Eliquis 5 mg b.i.d. 6. UTI secondary to E. coli -culture growing E. coli, resistant to multiple organisms but based on sensitivities can likely continue zosyn. -covered with Zosyn 7.? Hypertension, hyperlipidemia -continue clonidine, losartan, atorvastatin per home routine -continue low dose furosemide and spironolactone per home routine 8. Hypomagnesemia, resolved - continue to monitor levels 9. Atrial fibrillation, presumed -continue amiodarone Dispo: Remains weak and slightly diminished from baseline but improving. Plan for discharge home tomorrow with [facility] to continue IV antibiotics at home to complete course for pneumonia if she continues current progress. Time Spent With Patient Critical Care time: I spent a total of [] minutes of critical care time on this patient's care today; this time is exclusive of procedural time.
[2022-04-29] MEDS: MONTELUKAST 10 MG TABLET PO (21:49)
[2022-04-29] MEDS: ATORVASTATIN 20 MG TABLET 40 MG PO (21:50)
[2022-04-29] MEDS: NORTRIPTYLINE HCL 25 MG CAPSULE PO (21:51)
[2022-04-29] MEDS: PRAMIPEXOLE 0.25 MG TABLET 0.5 MG PO (21:51)
[2022-04-29] MEDS: ACETAMINOPHEN 325 MG TABLET 650 MG PO (21:57)
[2022-04-29] MEDS: ALBUTEROL 2.5 MG/3 ML NEB (ADULT) INH (22:15)
[2022-04-30] MEDS: DOXYCYCLINE 100 MG in SODIUM CHLORIDE 0.9% 100 ML IV (00:54)
[2022-04-30] MEDS: PIPERACILLIN/TAZO 3.375 GM in SODIUM CHLORIDE 0.9% 100 ML IV ×2 (03:11→09:54)
[2022-04-30 04:52] VITALS: BP 133/69; PULSE 58; RESP 18; TEMP 36.4; O2SAT 94
[2022-04-30] MEDS: PANTOPRAZOLE DR 20 MG TABLET PO (06:14)
[2022-04-30] MEDS: LEVOTHYROXINE 75 MCG TABLET PO (06:14)
[2022-04-30 07:09] VITALS: PULSE 61; RESP 16; O2SAT 96
[2022-04-30] MEDS: ALBUTEROL/IPRATROPIUM 3 ML AMPUL INH (07:09)
[2022-04-30] MEDS: BUDESONIDE 0.5 MG/2 ML NEB INH (07:09)
[2022-04-30 07:54] VITALS: BP 148/67; PULSE 60; RESP 22; TEMP 36.3; O2SAT 97
[2022-04-30 08:25] VITALS: BP 148/67; PULSE 60
[2022-04-30] MEDS: predniSONE 20 MG TABLET 5 MG PO (08:25)
[2022-04-30] MEDS: PREGABALIN 50 MG CAPSULE 150 MG PO (08:25)
[2022-04-30] MEDS: FUROSEMIDE 20 MG TABLET PO (08:25)
[2022-04-30] MEDS: LOSARTAN 50 MG TABLET PO (08:25)
[2022-04-30] MEDS: DOCUSATE 100 MG CAPSULE 200 MG PO (08:25)
[2022-04-30] MEDS: LORATADINE 10 MG TABLET PO (08:26)
[2022-04-30] MEDS: INSULIN GLARGINE 100 UNIT/ML 3ML PEN 30 UNIT SUBCUT (08:26)
[2022-04-30] MEDS: DULOXETINE 30 MG CAPSULE PO (08:26)
[2022-04-30] MEDS: SPIRONOLACTONE 25 MG TABLET 50 MG PO (08:26)
[2022-04-30 08:28] VITALS: BP 148/67; PULSE 60
[2022-04-30] MEDS: APIXABAN 5 MG TABLET PO (08:28)
[2022-04-30] MEDS: AMIODARONE 200 MG TABLET PO (08:28)
[2022-04-30] MEDS: METOPROLOL ER 25 MG TABLET 12.5 MG PO (08:28)
[2022-04-30] MEDS: cloNIDine 0.1 MG TABLET PO (08:28)
[2022-04-30] MEDS: OXYCODONE IR 10 MG TABLET PO (09:54)
[2022-04-30] MEDS: fentaNYL 25 MCG/PATCH TOP (09:54)
--- NOTE | 2022-04-30 10:17 | PM.DS.1 ---
History of Present Illness History of Present Illness Date Patient Seen: 04/30/22 Chief complaint: copd cough pneumonia Narrative: Radha Zavaleta is a 71-year-old female with a history of common variable immune deficiency, atrial fibrillation anticoagulated on Eliquis, NSTEMI in January 2022 diabetes type 2, asthma with childhood exposure to secondary tobacco, hypertension and hyperlipidemia presented today to the ED with increased shortness of breath and per her , altered mental status. provides much of the history is the patient is on high-flow nasal oxygen and is unable to provide much of a history. On Sunday she stated she was achy she had no fever he did a home test and her COVID was negative. On the day of admission he states that she needed help getting out of bed he bumped her up from 3 L to 6 L of home oxygen and then took her temperature and it was 100.8. 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 He also states that she is been incontinent since Sunday which would have been 2 days ago. She also complains of nausea. Chest x-ray ordered in the ED noted ill-defined opacities bilateral lower lung lockett concerning for infiltrates versus atelectasis. Head CT did not report any acute intracranial process. T-max was 102.7? currently her temp is 99.2?, blood pressure 100/51 heart rate 91 respiratory rate 18 oxygen saturation 93% with an FiO2 of 60 and a rate of 45 she weighs 107 kg with a BMI of 46. Her white count is notably elevated at 13.7 she is mildly anemic with a hemoglobin and hematocrit of 10.3 and 32.2 platelet count 531 she is a left shift of 11,000 currently her ABG pH is 7.44 ABG pCO2 is 40.8 ABG PO2 65 ABG bicarb 28 ABG oxygen saturation is 93% with a base excess of 4 she has an elevated glucose of 157 and A1c of 7.2 lactate was 1.2 proBNP was 2100 procalcitonin was negative UA was positive for nitrates and will be cultured respiratory film array viral PCRs including COVID-19 are all negative. Discharge Providers Provider Date of admission: 04/24/22 13:15 Discharge Date: 04/30/22 Primary care physician: Karin Porter MD Consults: 04/24/22 17:45 Consult to Pastoral Services Routine Comment: Request support 04/27/22 11:34 Consult to Physical Therapy Evaluate & Treat Comment: Physician Instructions: Evaluate and Treat Discharge provider: Harjeet Nance DO Summary Hospital Course Discharge Diagnosis: Please see hospital course by problem list noted below Hospital Course: 1. Acute on chronic hypoxic respiratory failure secondary to bacterial pneumonia, unable to specify further with negative / lack of cultures. -CXR with bilateral lower lung infiltrate; clinical presentation with fever, elevated WBC consistent with pneumonia on admission. -history of Pseudomonas in sputum in December last year which was susceptible to Zosyn and not susceptible to quinolone, patient has history of allergic reaction to cefepime -blood cultures negative to date -treated with Zosyn and doxycycline to cover gram negatives including Pseudomonas as well as Staph bacteria, antibiotic management reviewed with Dr Whalen of infectious disease, ordered vancomycin pending MRSA swab, day 1 on 04/25, plan for 7 day course to end on 05/02. With initiation of antibiotics she had improvement back to her baseline oxygen use, though took a while longer to improve with dyspnea on exertion. Antiboitics are to be completed at home with infusion [facility] given her history of pseudomonas infections and improvement, despite negative cultures this admission (noted no sputum culture could be obtained) -patient has significant underlying chronic lung disease, on azithromycin 3 times weekly, held due to atypical bacteria coverage with doxycycline during her stay but safe to resume azithromycin 3 times per week on discharge. 2. Common variable immune deficiency -patient on weekly immunoglobulin subcu injections, last received on April 22 -also on daily 5 mg prednisone, continued -initially was given stress dose steroids which were quickly stopped due to rapid improvement. 3. Type 2 diabetes insulin requiring -continued Lantus 30 units q.day and medium dose sliding scale during her stay. -held metformin on admission but okay to resume on discharge. No changes recommended at this time to home medications for diabetes management. 4. Chronic pain -continued on duloxetine, fentanyl patch 25 mcg with oxycodone as needed per home routine. 5.? History of DVT and PE -continued Eliquis 5 mg b.i.d. 6. UTI secondary to E. coli -culture growing E. coli, resistant to multiple organisms but based on sensitivities can likely continue zosyn. -covered with Zosyn 7.? Hypertension, hyperlipidemia -continued clonidine, losartan, atorvastatin per home routine -continued low dose furosemide and spironolactone per home routine 8. Hypomagnesemia, resolved ?- continued to monitor levels but improved with repletion 9. Atrial fibrillation, presumed -continued amiodarone per home routine. Time Spent with Patient Time spent: Greater than 30 minutes Exam Vital Signs (past 8 hours): - 04/30/22 04:52 04/30/22 07:09 04/30/22 07:54 Temperature 97.5 F L 97.3 F L Pulse Rate 58 L 61 60 Respiratory Rate 18 16 22 Blood Pressure 133/69 148/67 H Pulse Oximetry 94 96 97 Oxygen Delivery Method Nasal Cannula Oxygen Flow Rate 3 3 2.5 Fraction of Inspired Oxygen 32 04/30/22 08:25 04/30/22 08:28 04/30/22 08:28 Temperature Pulse Rate 60 60 60 Respiratory Rate Blood Pressure 148/67 H 148/67 H 148/67 H Pulse Oximetry Oxygen Delivery Method Oxygen Flow Rate Fraction of Inspired Oxygen 04/30/22 08:30 Temperature Pulse Rate Respiratory Rate Blood Pressure Pulse Oximetry Oxygen Delivery Method Nasal Cannula Oxygen Flow Rate Fraction of Inspired Oxygen Fraction of Inspired Oxygen 32 SaO2/FiO2 Ratio 300 Oxygen Delivery Method Nasal Cannula Oxygen Flow Rate 2.5 Narrative Exam Narrative: General: awake, alert, no acute distress Lungs: decreased breath sounds and scattered rhonchi Heart: regular rate and rhythm, with no murmurs Abdomen: Soft non-tender, non-distended Extremities: Nonedematous, no joint effusions. Objective Labs Result Diagrams: 04/28/22 04:55 04/28/22 04:55 [facility] Medical History Abnormal chest xray (~1979) Anemia Ankle pain Anticoagulated Asthma (~1959) Bronchiectasis (~2006) Cervical spine disease Chronic back pain Colon polyps (~2015) Degenerative joint disease of spine (~2001) Diabetes mellitus, type II (~2009) Eczema Fibromyalgia Foot pain Hoarseness Hyperlipidemia Hypertension Hypothyroidism Migraines (~1964) 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 Osteopenia Pneumonia Pneumonia Recurrent sinusitis (~1970) Restless leg syndrome Shoulder pain (~03/2018) Sleep apnea Wears glasses Surgical History Anesthesia History of carpal tunnel release History of cataract removal with insertion of prosthetic lens (~2014) History of section History of laminectomy (~2002) History of spinal fusion (~2012) History of thumb surgery Family History Father Stroke Mother Hypertension Brother Cerebral aneurysm Prostate cancer Diabetes mellitus Hypertension Stroke Brother Arthritis Hyperlipidemia Hypertension Sister History of kidney cancer Hypertension Grandfather Cancer Grandmother Cancer Other Family history non-contributory Social History household members: spouse Smoking Status: Never smoker alcohol intake: current Discharge Plan Discharge Plan Patient Disposition: Home Health Service Discharge orders & Medications Prescriptions: New piperacillin-tazobactam 3.375 gram recon soln 3.375 g IV Q8H 3 Days Qty: 10 0RF Rx Instructions: 3.375 g IV infused over 4 hours every 8 hours. To start at home 04/30/2022. Can discontinue midline after completion of antibiotic therapy Continued polyethylene glycol 3350 [Miralax] 119 GM powder 17 gm PO DAILY PRN (Reason: Constipation) Qty: 0 ondansetron HCl [Zofran] 4 mg tablet 4 mg PO Q8H PRN (Reason: nausea and vomiting) Qty: 30 1RF Label Comments: took early this morning at home (DME) insulin syringe-needle U-100 [BD Insulin Syringe Ultra-Fine] 0.5 mL 31 gauge x 5/16 syringe See Rx Instructions .ROUTE .MEDSUPPLY Qty: 100 1RF Rx Instructions: Use once a day as directed clonidine HCl 0.1 mg tablet 0.1 mg PO BID Qty: 180 0RF losartan 50 mg tablet 50 mg PO DAILY Qty: 90 0RF metformin 1,000 mg tablet 1,000 mg PO BID Qty: 180 0RF (DME) verio reflect glucometer Qty: 1 0RF Rx Instructions: As directed Privigen 10 % solution 45 gram IV Q3W ferrous sulfate 325 mg (65 mg iron) tablet 325 mg PO BEDTIME spironolactone 50 mg tablet 50 mg PO DAILY tizanidine 4 mg capsule 4 mg PO QID PRN (Reason: Muscle Spasm) cholecalciferol (vitamin D3) 2,000 unit tablet 2,000 unit PO DAILY albuterol sulfate 90 mcg/actuation HFA aerosol inhaler 2 puff INHALATION Q4-6H PRN (Reason: Shortness Of Breath) lansoprazole [Prevacid 24Hr] 15 mg Capsule,Delayed Release(Dr/Ec) 30 mg PO BID apixaban 5 mg (74 tabs) tablets,dose pack 5 mg PO BID Qty: 74 0RF fentanyl 25 mcg/hr patch 72 hour 1 patch transdermal Q72H PRN (Reason: pain (scale score 1-3)) Qty: 5 0RF Label Comments: placed today at home prednisone 20 mg tablet 5 mg PO DAILY amiodarone 200 mg tablet 200 mg PO DAILY azithromycin 250 mg tablet 250 mg PO 3XW Rx Instructions: sunday, sun, sun omega-3 fatty acids Capsule 1,000 mg PO DAILY docusate sodium 100 mg Tablet 200 mg PO DAILY Fasenra Pen 30 mg/mL Auto-Injector 30 mg SUBCUT Q8W metoprolol succinate 25 mg Tablet Extended Release 24 Hr 12.5 mg PO BID methocarbamol 500 mg Tablet 500 mg PO Q8H PRN (Reason: Spasms) sodium chloride 3 % Solution For Nebulization 3 ml INHALATION DIRECTED Rx Instructions: use w/ nebulizer 2 x daily montelukast [Singulair] 10 mg Tablet 10 mg PO BEDTIME Zyrtec 10 mg Capsule 10 mg PO DAILY pregabalin 200 mg Capsule 150 mg PO DAILY atorvastatin 40 mg Tablet 40 mg PO BEDTIME ipratropium-albuterol 0.5 mg-3 mg(2.5 mg base)/3 mL Solution For Nebulization 3 ml INHALATION BID Rx Instructions: and every 4 hours as needed levothyroxine 75 mcg Tablet 75 mcg PO QAM nortriptyline 25 mg Capsule 25 mg PO BEDTIME epinephrine [EpiPen] 0.3 mg/0.3 mL Auto-Injector 0.3 mg IM Q5-15M PRN (Reason: Allergic Reaction) Rx Instructions: do not exceed 3 doses per episode Spiriva with HandiHaler 18 mcg Capsule, W/Inhalation Device 1 cap INHALATION DAILY Rx Instructions: puncture 1 cap using device; one dose = 2 inhalations insulin glargine 100 unit/mL solution 30 unit SUBCUT DAILY furosemide [Lasix] 20 mg tablet 20 mg PO QAM insulin lispro [Humalog KwikPen Insulin] 100 unit/mL insulin pen 4 - 8 unit SUBCUT TID pramipexole 0.5 mg tablet 0.5 mg PO BEDTIME fluticasone propion-salmeterol [Wixela Inhub] 500-50 mcg/dose Blister With Device 1 inh INHALATION BID duloxetine 30 mg Capsule,Delayed Release(Dr/Ec) 30 mg PO DAILY oxycodone-acetaminophen [Percocet] 10-325 mg Tablet 1 tab PO Q4H PRN (Reason: Pain (Scale Score 4-6)) acyclovir 5 % Ointment 1 applic TOPICAL 6XD PRN (Reason: Outbreak) Mucinex 1,200 mg Tablet Extended Release 12hr 1,200 mg PO BID benralizumab 30 mg/mL Auto-Injector 30 mg SUBCUT Q8W levofloxacin 750 mg tablet 750 mg PO Q24H Qty: 3 0RF Follow up/Referrals: Karin Porter MD [Primary Care Provider] - Visit Report/Discharge Packet Instructions: DI for Pneumonia -- Adult Discharge Data Primary Care Provider: Karin Porter
[2022-04-30 11:00] VITALS: BP 139/68; PULSE 64; RESP 21; TEMP 36.4; O2SAT 96
--- NOTE | 2022-04-30 11:19 | CM.DPC ---
DCP Cont: Patient has discharge orders for today. Called [facility], and spoke to Janine, and confirmed that they do have the new referral, patient was on services before. Added RN, along with P.T, and O.T. Janine is aware that patient is being discharged home today. Faxed them over the orders, face to face, added RN, DC Summary. Faxed over DC Summary to [facility], as well as prescription. Was going to give patient an [facility] brochure, but she stated that they already have it at home. Did also give patient a copy of IMM. P: Patient is discharging home today. Nurse, Mariam is aware that patient will need to be home by 1230 for medication delivery by [facility]. [facility] has been updated, and [facility] also was faxed DC Summary. Veronica Colon, HARSHAD/[employer] W[employer] Operator
== END 2022-04-30 12:30 | disposition home health service (06) | DRG 193 ==
LOC: ED 13:15 → AC 13:16
PROVIDERS: Internal Medicine; Nurse Practitioner Family; Admitting Provider Neuromusculoskeletal Medicine, Sports Medicine; Emergency Provider Emergency Medicine; Family Provider Internal Medicine Infectious Disease; PCP Internal Medicine; Referring Provider Emergency Medicine; Visit Provider Neuromusculoskeletal Medicine, Sports Medicine
DX: J18.9 Pneumonia, unspecified organism (principal); J96.21 Acute and chronic respiratory failure with hypoxia; N39.0 Urinary tract infection, site not specified; D83.9 Common variable immunodeficiency, unspecified; Z68.42 Body mass index [BMI] 45.0-49.9, adult; E11.9 Type 2 diabetes mellitus without complications; I10 Essential (primary) hypertension; E78.5 Hyperlipidemia, unspecified; G89.29 Other chronic pain; E66.01 Morbid (severe) obesity due to excess calories; E83.42 Hypomagnesemia; I48.91 Unspecified atrial fibrillation; B96.20 Unspecified Escherichia coli [E. coli] as the cause of diseases classified elsewhere; D64.9 Anemia, unspecified; E03.9 Hypothyroidism, unspecified; J45.909 Unspecified asthma, uncomplicated; G47.30 Sleep apnea, unspecified; Z79.01 Long term (current) use of anticoagulants; Z86.711 Personal history of pulmonary embolism; Z79.4 Long term (current) use of insulin; Z20.822 Contact with and (suspected) exposure to COVID-19; Z77.22 Contact with and (suspected) exposure to environmental tobacco smoke (acute) (chronic); Z99.81 Dependence on supplemental oxygen; Z79.84 Long term (current) use of oral hypoglycemic drugs
CPT/HCPCS: 36415; 36600; 70450; 71045; 80048; 80053; 81001; 82550; 82805; 82962; 83036; 83605; 83735; 83880; 84145; 84484; 85025; 85027; 85610; 85730; 87040; 87077; 87086; 87186; 87633; 93005; 93010; 94640; 94762; 96365; 96366; 96367; 96375; 97161; 97530; 99285; A9270; J1170; J1720; J1815; J1940; J1956; J2185; J2270; J2405; J2543; J2765; J3475; J7613

== ENCOUNTER → 2022-05-22 14:27 | Outpatient (CLI) | payer OTHER, SELFPAY ==
[2021-04-20 12:20] VITALS: PULSE 112
[2021-04-20 17:26] VITALS: RESP 24; O2SAT 97
[2022-04-24 17:23] VITALS: BMI 46.0
[2022-05-22 15:19] LABS: Add Manual Diff / Slide Review NO; Basophils Absolute Auto 0 /uL (0-100); Basophils Percent Auto 0.3 % (0-2); Eosinophils Absolute Auto 0 /uL (0-450); Hematocrit 30.7 % (36-46); Hemoglobin 9.8 g/dL (12.0-16.0); Lymphocytes Absolute Auto 1000 /uL (1100-4500); Lymphocytes Percent Auto 13.3 % (25-40); Mean Corpuscular HGB Conc 31.9 % (30-36); Mean Corpuscular Hemoglobin 27.1 PG (26-34); Mean Corpuscular Volume 84.8 fL (80-100); Monocytes Absolute Auto 600 /uL (0-900); Neutrophils Absolute Auto 5700 /uL (1500-7000); Neutrophils Percent Auto 78.4 % (50-75); Platelet Count 439 X10^3/uL (150-400); Red Blood Cell Count 3.61 X10^6/uL (4.0-5.2); White Blood Cell Count 7.3 X10^3/uL (4.5-11.0)
[2022-05-22 15:35] LABS: Hypochromasia 2+
[2022-05-22 15:36] LABS: Anisocytosis 2+; Ovalocytes 1+; Target Cells 1+
[2022-05-22 15:40] LABS: BUN Creatinine Ratio 17.9 (6-22); Blood Urea Nitrogen 14 mg/dL (7-17); Carbon Dioxide 29 mmol/L (22-32); Chloride 100 mmol/L (98-107); Estimated Glomerular Filt Rate > 60 mL/min (>60); Glucose 131 mg/dL (80-110); HEMOLYSIS < 15 (0-50); Potassium 5.2 mmol/L (3.4-5.1); Sodium 140 mmol/L (137-145)
== END ==
PROVIDERS: Family Provider Internal Medicine Infectious Disease; PCP Internal Medicine; Referring Provider Internal Medicine; Visit Provider Internal Medicine
DX: I50.30 Unspecified diastolic (congestive) heart failure (principal); Z79.01 Long term (current) use of anticoagulants
CPT/HCPCS: 36415; 80048; 85025

== ENCOUNTER 2022-06-03 08:10 | Inpatient (IN) | payer OTHER, SELFPAY ==
[2021-04-20 12:20] VITALS: PULSE 112
[2021-04-20 17:26] VITALS: RESP 24; O2SAT 97
[2022-04-24 17:23] VITALS: BMI 46.0
[2022-06-03] VITALS (103 sets, daily range): BP systolic 101–203; BP diastolic 53–120; PULSE 68–192; RESP 12–42; TEMP 30–38.7; O2SAT 88–100; BMI 43.9
--- NOTE | 2022-06-03 08:14 | DI.RAD.S_ITS ---
PROCEDURE: XR CHEST 1V INDICATIONS: short of breath TECHNIQUE: One view of the chest was acquired. COMPARISON: [facility], CR, XR CHEST 1V, 04/24/2022, 10:17. FINDINGS: Surgical changes and devices: None. Lungs and pleura: Large airspace opacity occupying right mid to lower lung field is seen extending to right hilar region. No pleural effusions or pneumothorax. Mediastinum: Mediastinal contours appear normal. Heart size is mildly enlarged. Bones and chest wall: No suspicious bony lesions. Overlying soft tissues appear unremarkable. IMPRESSION: Finding is suggestive of large right lower lobe infiltrate. Follow-up until resolution is recommended to rule out underlying malignant process. No pleural effusion or pneumothorax. Dictated by: Josr Silva M.D. on 06/03/2022 at 8:37 Approved by: Josr Silva M.D. on 06/03/2022 at 8:37
[2022-06-03] MEDS: methylPREDNISolone 125 MG/2 ML VIAL IV (08:26)
--- NOTE | 2022-06-03 08:27 | ED_ITS ---
HPI - SOB/Dyspnea General Chief Complaint: Shortness of Breath/Dyspnea Stated Complaint: resp failure Time Seen by Provider: 06/03/22 08:13 Source: EMS Mode of arrival: EMS History of Present Illness HPI Narrative: Patient 72-year-old female history of chronic respiratory failure on 4 L of oxygen with increase of 5 L of oxygen yesterday, history of immunodeficiency getting IVIG every 3 weeks, bronchiectasis, Pseudomonas pneumonia, chronic back pain, paroxysmal atrial fibrillation on Eliquis, congestive heart failure, frequent admissions to the hospital recent UTI and pneumonia. She was admitted to this hospital for UTI sepsis April 24 through the . She was home for a couple days she then went over to [facility] was admitted for pneumonia for about 4 days. reports that she was not feeling great yesterday but no spec ific complaints. This morning woke up and was having difficulty breathing. He gave her a nebulizer treatment home then called 911. She required CPAP by EMS. EMS reports that she is doing a lot better. She does have some cough. She denies any chest pain abdominal pain nausea or vomiting. Related Data Home Medications Medication Instructions Recorded Confirmed polyethylene glycol 3350 17 17 gm PO DAILY PRN Constipation ##0 06/06/17 06/03/22 gram/dose oral powder (Miralax) albuterol sulfate 90 mcg/actuation 2 puff inhalation Q4-6H PRN 05/29/19 06/03/22 aerosol inhaler Shortness Of Breath cholecalciferol (vitamin D3) 50 2,000 unit PO DAILY 05/29/19 06/03/22 mcg (2,000 unit) tablet ferrous sulfate 325 mg (65 mg 325 mg PO BEDTIME 05/29/19 06/03/22 iron) tablet immune glob,gamm(IgG) 10 %-pro-IgA 45 gram IV Q3W 05/29/19 06/03/22 0 to 50 mcg/mL intravenous solution (Privigen) spironolactone 50 mg tablet 50 mg PO DAILY 05/29/19 06/03/22 tizanidine 4 mg capsule 4 mg PO QID PRN Muscle Spasm 05/29/19 06/03/22 sodium chloride 3 % for 3 ml inhalation BID 06/05/19 06/03/22 nebulization cetirizine 10 mg capsule (Zyrtec) 10 mg PO DAILY allergies 01/20/20 06/03/22 montelukast 10 mg tablet 10 mg PO BEDTIME 01/20/20 06/03/22 (Singulair) atorvastatin 40 mg tablet 40 mg PO BEDTIME 04/20/21 06/03/22 epinephrine 0.3 mg/0.3 mL 0.3 mg IM Q5-15M PRN Allergic 04/20/21 06/03/22 injection, auto-injector (EpiPen) Reaction furosemide 20 mg tablet (Lasix) 20 mg PO QAM 04/20/21 06/03/22 insulin glargine 100 unit/mL 30 unit SUBCUT QAM 04/20/21 06/03/22 subcutaneous solution insulin lispro 100 unit/mL 4 - 8 unit SUBCUT TID 04/20/21 06/03/22 subcutaneous pen (Humalog KwikPen (U-100) Insulin) ipratropium 0.5 mg-albuterol 3 mg 3 ml inhalation BID 04/20/21 06/03/22 (2.5 mg base)/3 mL nebulization soln levothyroxine 75 mcg tablet 75 mcg PO QAM 04/20/21 06/03/22 nortriptyline 25 mg capsule 25 mg PO BEDTIME 04/20/21 06/03/22 tiotropium bromide 18 mcg capsule 1 cap inhalation DAILY 04/20/21 06/03/22 with inhalation device (Spiriva with HandiHaler) lansoprazole 15 mg capsule,delayed 30 mg PO BID 04/29/21 06/03/22 release (Prevacid 24Hr) duloxetine 30 mg capsule,delayed 30 mg PO DAILY 06/28/21 06/03/22 release fluticasone 500 mcg-salmeterol 50 1 inh inhalation BID 06/28/21 06/03/22 mcg/dose blistr powdr for inhalation (Wixela Inhub) guaifenesin 1,200 mg tablet, 1,200 mg PO BID 06/28/21 06/03/22 extended release 12 hr (Mucinex) oxycodone-acetaminophen 10 mg-325 1 tab PO Q4H PRN Pain (Scale Score 06/28/21 06/03/22 mg tablet (Percocet) 4-6) pramipexole 0.5 mg tablet 0.5 mg PO BEDTIME 06/28/21 06/03/22 azithromycin 250 mg tablet 250 mg PO 3XW 04/24/22 06/03/22 docusate sodium 100 mg tablet 200 mg PO DAILY 04/24/22 06/03/22 metoprolol succinate 25 mg 12.5 mg PO BID 04/24/22 06/03/22 tablet,extended release 24 hr omega-3 fatty acids 1,000 mg PO DAILY 04/24/22 06/03/22 benralizumab 30 mg/mL subcutaneous 30 mg SUBCUT Q8W 06/03/22 06/03/22 syringe (Fasenra) [id number] 1 tab PO Q6H PRN Migraine Headache 06/03/22 06/03/22 50 mg-325 mg-40 mg tablet clonidine HCl 0.1 mg tablet 0.05 mg PO BID 06/03/22 06/03/22 oxycodone 5 mg capsule 5 mg PO Q6H PRN Pain (Scale Score 06/03/22 06/03/22 7-10) oxymetazoline 0.05 % nasal drops 1 drp intranasal BID PRN Congestion 06/03/22 06/03/22 prednisone 5 mg tablet 5 mg PO DAILY 06/03/22 06/03/22 pregabalin 75 mg capsule 75 mg PO DAILY 06/03/22 06/03/22 Previous Rx's Medication Instructions Recorded ondansetron HCl 4 mg tablet 4 mg PO Q8H PRN nausea and 10/06/19 (Zofran) vomiting #30 tabs verio reflect glucometer #1 ea 01/28/20 insulin syringe-needle U-100 0.5 #100 ea 03/30/20 mL 31 gauge x 5/16 (BD Insulin Syringe Ultra-Fine) losartan 50 mg tablet 50 mg PO DAILY #90 tabs 08/05/20 metformin 1,000 mg tablet 1,000 mg PO BID #180 tabs 09/03/20 apixaban 5 mg (74 tabs) tablets in 5 mg PO BID #74 ea 05/01/21 a dose pack fentanyl 25 mcg/hr transdermal 1 patch transdermal Q72H PRN pain 02/05/22 patch (scale score 1-3) #5 ea Allergies Allergy/AdvReac Type Severity Reaction Status Date / Time hydroxychloroquine Allergy Unknown Verified 06/03/22 08:25 [HYDROXYCHLOROQUINE] promethazine [From Phenergan] Allergy Agitated Verified 06/03/22 08:25 cefepime AdvReac Severe pruritis Verified 06/03/22 08:25 Review of Systems Review of Systems ROS Unobtainable: All systems reviewed & are unremarkable except as noted in HPI and below Patient History Medical History Abnormal chest xray (~1979) Anemia Ankle pain Anticoagulated Asthma (~1959) Bronchiectasis (~2006) Cervical spine disease Chronic back pain Colon polyps (~2015) Degenerative joint disease of spine (~2001) Diabetes mellitus, type II (~2009) Eczema Fibromyalgia Foot pain Hoarseness Hyperlipidemia Hypertension Hypothyroidism Migraines (~1964) 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 Osteopenia Pneumonia Pneumonia Recurrent sinusitis (~1970) Restless leg syndrome Shoulder pain (~03/2018) Sleep apnea Wears glasses Surgical History Anesthesia History of carpal tunnel release History of cataract removal with insertion of prosthetic lens (~2014) History of section History of laminectomy (~2002) History of spinal fusion (~2012) History of thumb surgery Family History Father Stroke Mother Hypertension Brother Cerebral aneurysm Prostate cancer Diabetes mellitus Hypertension Stroke Brother Arthritis Hyperlipidemia Hypertension Sister History of kidney cancer Hypertension Grandfather Cancer Grandmother Cancer Other Family history non-contributory Social History household members: spouse Smoking Status: Never smoker alcohol intake: current Smoking Status: Never smoker alcohol intake frequency: holidays/special occasions only Substance Use Type: does not use Exam Initial Vital Signs Initial Vital Signs: Vital Signs Temperature 97.7 F 06/03/22 08:09 Pulse Rate 105 H 06/03/22 08:09 Respiratory Rate 40 H 06/03/22 08:09 Blood Pressure 147/90 H 06/03/22 08:09 Pulse Oximetry 88 L 06/03/22 08:09 Oxygen Delivery Method 06/03/22 08:09 GENERAL: Alert 72-year-old female currently sitting up right on CPAP, able to answer yes and no HEENT: Head atraumatic,EOMI, pupils reactive, face symmetric, moist mucous membranes CARDIOVASCULAR: Tachycardic regular RESPIRATORY: Coarse breath sounds bilaterally tachypnea ABDOMEN: Soft, nontender. Normoactive bowel sounds all 4 quadrants. No guarding or rebound. EXTREMITIES: Normal range of motion, no clubbing or edema. Neurovascularly intact NEUROLOGICAL: Moving all extremities SKIN: Warm, dry, no laceration, no petechiae, no rashes or lesions. Course Orders Ordered: ED Orders 06/03/22 08:14 XR chest 1V Stat EKG-12 Lead Stat 06/03/22 08:25 Complete Blood Count AUTO DIFF Stat Comprehensive Metabolic Panel Stat Lactate (Lactic Acid) Stat NT-proBNP (BNP-Adult 18+) Stat Partial Thromboplastin Time Stat Procalcitonin Stat Prothrombin Time INR Stat Troponin & CK Cardiac Panel Stat 06/03/22 08:30 Magnesium Urgent TSH w/ Reflex to FT4 Urgent 06/03/22 08:31 Respiratory Panel (Film Array) Stat Urinalysis and Microscopic Stat 06/03/22 08:35 Blood Culture Stat 06/03/22 08:58 BiPAP Ventilatory Support RT PROTOCOL 06/03/22 09:00 Arterial Blood Gas Stat 06/03/22 10:59 MRSA (Nasal) PCR Stat 06/03/22 11:01 Sputum Culture Urgent 06/04/22 05:00 BMP [Basic Metabolic Panel] DAILY CBC Auto Diff [Complete Blood Count AUTO DIFF] DAILY Magnesium DAILY Procalcitonin Urgent 06/05/22 05:00 BMP [Basic Metabolic Panel] DAILY CBC Auto Diff [Complete Blood Count AUTO DIFF] DAILY Magnesium DAILY 06/06/22 05:00 BMP [Basic Metabolic Panel] DAILY CBC Auto Diff [Complete Blood Count AUTO DIFF] DAILY Magnesium DAILY 06/06/22 08:30 Vancomycin Trough Stat 06/06/22 11:30 Vancomycin Peak Stat Acetaminophen (Acetaminophen 325 Mg Tablet) 650 mg PO Q6H PRN PRN Reason: Fever/Mild Pain (1-3) Albuterol/Ipratropium (Albuterol/Ipratropium 3 Ml Ampul) 3 ml INH Q6HRWA PRN PRN Reason: shortness of breath/wheezing Amiodarone HCl (Amiodarone 200 Mg Tablet) 200 mg PO DAILY CARMELO Last Admin: 06/03/22 12:02 Dose: Not Given Documented By: KAVON Apixaban (Apixaban 5 Mg Tablet) 5 mg PO BID [facility] Last Admin: 06/03/22 12:01 Dose: 5 mg Documented By: KAVON Atorvastatin Calcium (Atorvastatin 20 Mg Tablet) 40 mg PO BEDTIME [facility] Dextrose (Dextrose 50 % In Water 25 Gm/50 Ml Syringe) 25 gm IV PRN PRN PRN Reason: Hypoglycemia Diphenhydramine HCl (Diphenhydramine 50 Mg/Ml Vial) 25 mg IV Q6HR PRN PRN Reason: Itching Last Admin: 06/03/22 12:00 Dose: 25 mg Documented By: KAVON Duloxetine HCl (Duloxetine 30 Mg Capsule) 30 mg PO DAILY [facility] Last Admin: 06/03/22 12:02 Dose: 30 mg Documented By: KAVON Fentanyl (Fentanyl 25 Mcg/Patch) 25 mcg TOP Q72H PRN PRN Reason: pain (scale score 1-3) Sodium Chloride (Normal Saline 0.9%) 1,000 mls @ 150 mls/hr IV CONT [facility] Last Infusion: 06/03/22 14:29 Dose: 0 mls/hr Documented By: Infusion: 06/03/22 12:37 Dose: 0 mls/hr Documented By: Admin: 06/03/22 09:51 Dose: 150 mls/hr Documented By: KAVON Cefepime HCl 2 gm/ Sodium (Chloride) 100 mls @ 200 mls/hr IV Q12H [facility] Last Infusion: 06/03/22 12:37 Dose: 0 mls/hr Documented By: Admin: 06/03/22 12:03 Dose: 200 mls/hr Documented By: KAVON Azithromycin 500 mg/ Dextrose 250 mls @ 250 mls/hr IV Q24H [facility] Stop: 06/06/22 11:59 Last Infusion: 06/03/22 12:38 Dose: 0 mls/hr Documented By: Admin: 06/03/22 12:04 Dose: 250 mls/hr Documented By: KAVON Vancomycin HCl/Dextrose (Vancomycin) 1,500 mg in 300 mls @ 200 mls/hr IV Q24H [facility] Insulin Human Regular (Insulin Regular 100 Unit/Ml 3 Ml Vial) 0 unit SUBCUT Q6H [facility]; Protocol Last Admin: 06/03/22 12:34 Dose: Not Given Documented By: KAVON Loratadine (Loratadine 10 Mg Tablet) 10 mg PO DAILY [facility] Last Admin: 06/03/22 12:02 Dose: 10 mg Documented By: KAVON Melatonin (Melatonin 3 Mg Tablet) 6 mg PO BEDTIME PRN PRN Reason: Insomnia Methocarbamol (Methocarbamol 500 Mg Tablet) 500 mg PO Q8H PRN PRN Reason: Spasms Montelukast Sodium (Montelukast 10 Mg Tablet) 10 mg PO BEDTIME CARMELO Naloxone HCl (Naloxone 0.4 Mg/Ml Vial) 0.2 mg IV Q2MIN PRN PRN Reason: Opiate Reversal Nortriptyline HCl (Nortriptyline Hcl 25 Mg Capsule) 25 mg PO BEDTIME CARMELO Oxycodone HCl (Oxycodone Ir 5 Mg Tablet) 10 mg PO Q4HR PRN PRN Reason: Pain, Moderate (4-6) Last Admin: 06/03/22 12:00 Dose: 10 mg Documented By: KAVON Polyethylene Glycol (Polyethylene Glycol 3350 17 Gm Powd.Pack) 17 gm PO DAILY PRN PRN Reason: Constipation Pramipexole Dihydrochloride (Pramipexole 0.25 Mg Tablet) 0.5 mg PO BEDTIME [facility] Pregabalin (Pregabalin 75 Mg Capsule) 150 mg PO DAILY [facility] Last Admin: 06/03/22 11:59 Dose: 75 mg Documented By: KAVON Sennosides (Sennosides 8.6 Mg Tablet) 8.6 mg PO BID PRN PRN Reason: Constipation Tizanidine HCl (Tizanidine 4 Mg Tablet) 4 mg PO QID PRN PRN Reason: Muscle Spasm Vancomycin HCl (Vancomycin Trough) 1 request [facility] [address] [facility] Stop: 06/06/22 08:31 Vancomycin HCl (Vancomycin Peak) 1 request [facility] [place] [address] [facility] Stop: 06/06/22 11:31 Discontinued Medications Albuterol (Albuterol 2.5 Mg/3 Ml Neb (Adult)) 10 mg INH NOW ONE Stop: 06/03/22 08:15 Last Admin: 06/03/22 11:48 Dose: Not Given Documented By: CHAVEZ Albuterol/Ipratropium (Albuterol/Ipratropium 3 Ml Ampul) 3 ml INH BID [facility] Enoxaparin Sodium (Enoxaparin 40 Mg/0.4 Ml Syringe) 40 mg SUBCUT DAILY [facility] Vancomycin HCl/Dextrose (Vancomycin) 1,500 mg in 300 mls @ 200 mls/hr IV NOW ONE Stop: 06/03/22 10:50 Last Infusion: 06/03/22 11:29 Dose: 0 mls/hr Documented By: Admin: 06/03/22 09:43 Dose: 200 mls/hr Documented By: KAVON Piperacillin Sod/Tazobactam (Sod 4.5 gm/ Sodium Chloride) 100 mls @ 200 mls/hr IV NOW ONE Stop: 06/03/22 09:22 Last Infusion: 06/03/22 10:20 Dose: 0 mls/hr Documented By: Admin: 06/03/22 09:41 Dose: 200 mls/hr Documented By: KAVON Magnesium Sulfate (Magnesium Sulfate) 2 gm in 50 mls @ 25 mls/hr IV NOW ONE Stop: 06/03/22 13:17 Last Admin: 06/03/22 12:06 Dose: 25 mls/hr Documented By: KAVON Co-signed By: CHAVEZ Ketorolac Tromethamine (Ketorolac 30 Mg/Ml Vial) 15 mg IV NOW ONE Stop: 06/03/22 09:22 Last Admin: 06/03/22 09:41 Dose: 15 mg Documented By: KAVON Methylprednisolone (Methylprednisolone 125 Mg/2 Ml Vial) 125 mg IV NOW ONE Stop: 06/03/22 08:15 Last Admin: 06/03/22 08:26 Dose: 125 mg Documented By: GENEVIEVE Oxycodone HCl (Oxycodone Ir 5 Mg Tablet) 5 mg PO Q4HR PRN PRN Reason: Pain, Moderate (4-6) Vital Signs Vital signs: Vital Signs - 8 hr 06/03/22 08:09 06/03/22 08:35 06/03/22 08:13 Temperature 97.7 F 100.2 F H Pulse Rate 105 H 96 H Respiratory Rate 40 H 35 H Blood Pressure 147/90 H Pulse Oximetry 88 L 100 Oxygen Delivery Method CPAP BiPAP Oxygen Flow Rate 15 Fraction of Inspired Oxygen 06/03/22 08:14 06/03/22 08:14 06/03/22 08:18 Temperature Pulse Rate 192 H Respiratory Rate 36 H Blood Pressure 147/90 H 202/120 H Pulse Oximetry Oxygen Delivery Method Oxygen Flow Rate Fraction of Inspired Oxygen 06/03/22 08:18 06/03/22 08:26 06/03/22 08:26 Temperature Pulse Rate 105 H 97 H Respiratory Rate 28 H 29 H Blood Pressure 157/92 H Pulse Oximetry 96 97 Oxygen Delivery Method BiPAP BiPAP Oxygen Flow Rate Fraction of Inspired Oxygen 06/03/22 08:30 06/03/22 08:31 06/03/22 08:31 Temperature Pulse Rate 96 H 98 H Respiratory Rate 38 H 39 H Blood Pressure 136/78 Pulse Oximetry 98 98 Oxygen Delivery Method BiPAP BiPAP Oxygen Flow Rate Fraction of Inspired Oxygen 06/03/22 08:10 06/03/22 08:40 06/03/22 08:40 Temperature 99.9 F H Pulse Rate 94 H Respiratory Rate 31 H Blood Pressure 148/90 H 190/102 H Pulse Oximetry 100 Oxygen Delivery Method BiPAP Oxygen Flow Rate Fraction of Inspired Oxygen 95 06/03/22 08:50 06/03/22 08:50 06/03/22 09:00 Temperature 100.9 F H Pulse Rate 95 H Respiratory Rate 26 H Blood Pressure 203/87 H 178/74 H Pulse Oximetry 95 Oxygen Delivery Method BiPAP Oxygen Flow Rate Fraction of Inspired Oxygen 06/03/22 09:00 06/03/22 09:10 06/03/22 09:10 Temperature 101.3 F H 101.5 F H Pulse Rate 95 H 96 H Respiratory Rate 27 H 36 H Blood Pressure 143/76 H Pulse Oximetry 94 92 Oxygen Delivery Method BiPAP Oxygen Flow Rate Fraction of Inspired Oxygen 06/03/22 09:41 06/03/22 09:30 06/03/22 09:54 Temperature 101.7 F H Pulse Rate 97 H Respiratory Rate 24 Blood Pressure 137/70 Pulse Oximetry 95 Oxygen Delivery Method BiPAP Oxygen Flow Rate Fraction of Inspired Oxygen 96 06/03/22 09:20 06/03/22 09:20 06/03/22 09:30 Temperature 101.7 F H Pulse Rate 97 H Respiratory Rate 27 H Blood Pressure 137/70 147/61 H Pulse Oximetry Oxygen Delivery Method Oxygen Flow Rate Fraction of Inspired Oxygen 06/03/22 09:30 06/03/22 09:40 06/03/22 09:40 Temperature 101.7 F H 101.7 F H Pulse Rate 98 H 96 H Respiratory Rate 24 27 H Blood Pressure 155/74 H Pulse Oximetry 97 96 Oxygen Delivery Method BiPAP BiPAP Oxygen Flow Rate Fraction of Inspired Oxygen 06/03/22 09:50 06/03/22 09:52 06/03/22 09:52 Temperature 101.7 F H 101.7 F H Pulse Rate 99 H 98 H Respiratory Rate 33 H 29 H Blood Pressure 131/63 Pulse Oximetry 98 99 Oxygen Delivery Method BiPAP BiPAP Oxygen Flow Rate Fraction of Inspired Oxygen 06/03/22 10:00 06/03/22 10:00 06/03/22 10:10 Temperature 101.7 F H Pulse Rate 96 H Respiratory Rate 25 H Blood Pressure 133/60 123/60 Pulse Oximetry 97 Oxygen Delivery Method BiPAP Oxygen Flow Rate Fraction of Inspired Oxygen 06/03/22 10:10 06/03/22 10:20 06/03/22 10:20 Temperature 101.7 F H 101.7 F H Pulse Rate 96 H 97 H Respiratory Rate 32 H 34 H Blood Pressure 117/61 Pulse Oximetry 98 96 Oxygen Delivery Method BiPAP BiPAP Oxygen Flow Rate Fraction of Inspired Oxygen 06/03/22 10:30 06/03/22 10:30 06/03/22 10:40 Temperature 101.7 F H Pulse Rate 93 H Respiratory Rate 26 H Blood Pressure 115/57 L 108/55 L Pulse Oximetry 93 Oxygen Delivery Method BiPAP Oxygen Flow Rate Fraction of Inspired Oxygen 06/03/22 10:40 06/03/22 10:50 06/03/22 10:50 Temperature 101.7 F H 101.5 F H Pulse Rate 92 H 92 H Respiratory Rate 25 H 23 Blood Pressure 112/58 L Pulse Oximetry 91 92 Oxygen Delivery Method BiPAP BiPAP Oxygen Flow Rate Fraction of Inspired Oxygen 06/03/22 11:00 06/03/22 11:00 06/03/22 11:10 Temperature 101.5 F H Pulse Rate 93 H Respiratory Rate 33 H Blood Pressure 120/65 125/61 Pulse Oximetry 95 Oxygen Delivery Method BiPAP Oxygen Flow Rate Fraction of Inspired Oxygen 06/03/22 11:10 06/03/22 11:20 06/03/22 11:20 Temperature 101.3 F H 101.3 F H Pulse Rate 92 H 91 H Respiratory Rate 32 H 31 H Blood Pressure 121/59 L Pulse Oximetry 96 94 Oxygen Delivery Method BiPAP BiPAP Oxygen Flow Rate Fraction of Inspired Oxygen 06/03/22 11:30 06/03/22 11:30 06/03/22 11:40 Temperature 101.1 F H Pulse Rate 92 H Respiratory Rate 28 H Blood Pressure 124/61 124/57 L Pulse Oximetry 97 Oxygen Delivery Method Oxygen Flow Rate Fraction of Inspired Oxygen 06/03/22 11:40 06/03/22 11:50 06/03/22 11:50 Temperature 101.1 F H 100.9 F H Pulse Rate 90 90 Respiratory Rate 24 24 Blood Pressure 116/58 L Pulse Oximetry 95 93 Oxygen Delivery Method BiPAP Oxygen Flow Rate Fraction of Inspired Oxygen 06/03/22 12:00 06/03/22 12:00 06/03/22 12:10 Temperature 100.8 F H Pulse Rate 90 Respiratory Rate 26 H Blood Pressure 120/58 L 125/57 L Pulse Oximetry 95 Oxygen Delivery Method Oxygen Flow Rate Fraction of Inspired Oxygen 06/03/22 12:10 Temperature 100.6 F H Pulse Rate 91 H Respiratory Rate 26 H Blood Pressure Pulse Oximetry 98 Oxygen Delivery Method BiPAP Oxygen Flow Rate Fraction of Inspired Oxygen MDM - SOB/Dyspnea Lab Data 06/03/22 08:25 06/03/22 08:25 Labs: Lab Results 06/03/22 06/03/22 06/03/22 Range/Units 08:25 08:25 08:25 WBC 13.9 H (4.5-11.0) X10^3/uL RBC 3.73 L (4.0-5.2) X10^6/uL Hgb 10.1 L (12.0-16.0) g/dL Hct 31.5 L (36-46) % MCV 84.5 (80-100) fL MCH 27.0 (26-34) PG MCHC 31.9 (30-36) % RDW 19.6 H (11.6-14.8) % Plt Count 478 H (150-400) X10^3/uL Neut % (Auto) 79.3 H (50-75) % Lymph % (Auto) 14.4 L (25-40) % [place] % (Auto) 5.4 (3-14) % Eos % (Auto) 0.0 L (2-4) % Baso % (Auto) 0.9 (0-2) % Neut # (Auto) 13200 H (7609-4269) /uL Lymph # (Auto) 2000 (2825-2406) /uL [place] # (Auto) 700 (0-900) /uL Eos # (Auto) 0 (0-450) /uL Baso # (Auto) 100 (0-100) /uL PT 13.2 H (10.1-12.7) SECONDS INR 1.2 (0.9-1.3) APTT (26-36) SECONDS ABG pH (7.35-7.45) ABG pCO2 (35-45) mmHg ABG pO2 (80-100) mmHg ABG HCO3 (23-27) mmol/L ABG Total CO2 (23-27) mmol/L ABG O2 Saturation (95-100) % ABG Base Excess (-2-3) mmol/L FiO2 Sodium 138 (137-145) mmol/L Potassium 4.2 (3.4-5.1) mmol/L Chloride 100 (98-107) mmol/L Carbon Dioxide 29 (22-32) mmol/L BUN 14 (7-17) mg/dL Creatinine 0.71 (0.52-1.04) mg/dL Estimated GFR > 60 (>60) mL/min BUN/Creatinine Ratio 19.7 (6-22) Glucose 129 H (80-110) mg/dL Lactate (0.7-2.1) mmol/L Calcium 8.7 (8.4-10.2) mg/dL Magnesium (1.6-2.3) mg/dL Total Bilirubin 0.3 (0.2-1.3) mg/dL AST 21 (14-36) IU/L ALT 17 (<35) IU/L Alkaline Phosphatase 87 (38-126) U/L Total Creatine Kinase 39 (30-135) U/L CK-MB (CK-2) TNP CK-MB (CK-2) Rel Index TNP Troponin I < 0.012 (0.01-0.034) ng/mL NT-Pro-B Natriuret Pep 915 H (<125) pg/mL Total Protein 7.6 (6.3-8.2) g/dL Albumin 3.8 (3.5-5.0) g/dL Globulin 3.8 (1.7-4.1) g/dL Albumin/Globulin Ratio 1.0 (1.0-2.8) Procalcitonin 0.05 (<0.5) ng/mL TSH (0.47-4.68) uIU/mL Urine Color Urine Appearance Urine pH (4.5-8.0) Ur Specific Happy (1.000-1.035) Urine Protein (Negative) Urine Glucose (UA) (Negative) g/dL Urine Ketones (NEGATIVE) Urine Occult Blood (Negative) Urine Nitrate (Negative) Urine Bilirubin (NEGATIVE) Urine Urobilinogen (0.2) E.U./dL Ur Leukocyte Esterase (NEGATIVE) Urine RBC (0-5/HPF) Urine WBC (0-5/HPF) Urine Bacteria (None) Ur Culture Indicated? Micro UA Comment Chlamy pneumoniae PCR (Not Detect) Adenovirus (PCR) (Not Detect) B. pertussis DNA (PCR) (Not Detecte) B.parapertussis DNA PCR (Not Detecte) Coronavirus OC43 (PCR) (Not Detect) Coronavirus HKU1 (PCR) (Not Detect) Coronavirus 229E (PCR) (Not Detect) SARS-CoV-2 (PCR) (Not Detecte) Coronavirus NL63 (PCR) (Not Detect) Human Metapneumovir PCR (Not Detect) Influenza Type A (PCR) (Not Detect) Influenza Type B (PCR) (Not Detect) M. pneumoniae (PCR) (Not Detect) Parainfluenza 1 (PCR) (Not Detect) Parainfluenza 2 (PCR) (Not Detect) Parainfluenza 3 (PCR) (Not Detect) Parainfluenza 4 (PCR) (Not Detect) RSV (PCR) (Not Detect) Entero/Rhino (PCR) (Not Detect) 06/03/22 06/03/22 06/03/22 Range/Units 08:25 08:25 08:30 WBC (4.5-11.0) X10^3/uL RBC (4.0-5.2) X10^6/uL Hgb (12.0-16.0) g/dL Hct (36-46) % MCV (80-100) fL MCH (26-34) PG MCHC (30-36) % RDW (11.6-14.8) % Plt Count (150-400) X10^3/uL Neut % (Auto) (50-75) % Lymph % (Auto) (25-40) % [place] % (Auto) (3-14) % Eos % (Auto) (2-4) % Baso % (Auto) (0-2) % Neut # (Auto) (6761-7629) /uL Lymph # (Auto) (6284-4001) /uL [place] # (Auto) (0-900) /uL Eos # (Auto) (0-450) /uL Baso # (Auto) (0-100) /uL PT (10.1-12.7) SECONDS INR (0.9-1.3) APTT 33 (26-36) SECONDS ABG pH (7.35-7.45) ABG pCO2 (35-45) mmHg ABG pO2 (80-100) mmHg ABG HCO3 (23-27) mmol/L ABG Total CO2 (23-27) mmol/L ABG O2 Saturation (95-100) % ABG Base Excess (-2-3) mmol/L FiO2 Sodium (137-145) mmol/L Potassium (3.4-5.1) mmol/L Chloride (98-107) mmol/L Carbon Dioxide (22-32) mmol/L BUN (7-17) mg/dL Creatinine (0.52-1.04) mg/dL Estimated GFR (>60) mL/min BUN/Creatinine Ratio (6-22) Glucose (80-110) mg/dL Lactate 1.1 (0.7-2.1) mmol/L Calcium (8.4-10.2) mg/dL Magnesium 1.4 L (1.6-2.3) mg/dL Total Bilirubin (0.2-1.3) mg/dL AST (14-36) IU/L ALT (<35) IU/L Alkaline Phosphatase (38-126) U/L Total Creatine Kinase (30-135) U/L CK-MB (CK-2) CK-MB (CK-2) Rel Index Troponin I (0.01-0.034) ng/mL NT-Pro-B Natriuret Pep (<125) pg/mL Total Protein (6.3-8.2) g/dL Albumin (3.5-5.0) g/dL Globulin (1.7-4.1) g/dL Albumin/Globulin Ratio (1.0-2.8) Procalcitonin (<0.5) ng/mL TSH (0.47-4.68) uIU/mL Urine Color Urine Appearance Urine pH (4.5-8.0) Ur Specific Happy (1.000-1.035) Urine Protein (Negative) Urine Glucose (UA) (Negative) g/dL Urine Ketones (NEGATIVE) Urine Occult Blood (Negative) Urine Nitrate (Negative) Urine Bilirubin (NEGATIVE) Urine Urobilinogen (0.2) E.U./dL Ur Leukocyte Esterase (NEGATIVE) Urine RBC (0-5/HPF) Urine WBC (0-5/HPF) Urine Bacteria (None) Ur Culture Indicated? Micro UA Comment Chlamy pneumoniae PCR (Not Detect) Adenovirus (PCR) (Not Detect) B. pertussis DNA (PCR) (Not Detecte) B.parapertussis DNA PCR (Not Detecte) Coronavirus OC43 (PCR) (Not Detect) Coronavirus HKU1 (PCR) (Not Detect) Coronavirus 229E (PCR) (Not Detect) SARS-CoV-2 (PCR) (Not Detecte) Coronavirus NL63 (PCR) (Not Detect) Human Metapneumovir PCR (Not Detect) Influenza Type A (PCR) (Not Detect) Influenza Type B (PCR) (Not Detect) M. pneumoniae (PCR) (Not Detect) Parainfluenza 1 (PCR) (Not Detect) Parainfluenza 2 (PCR) (Not Detect) Parainfluenza 3 (PCR) (Not Detect) Parainfluenza 4 (PCR) (Not Detect) RSV (PCR) (Not Detect) Entero/Rhino (PCR) (Not Detect) 06/03/22 06/03/22 06/03/22 Range/Units 08:30 08:31 08:31 WBC (4.5-11.0) X10^3/uL RBC (4.0-5.2) X10^6/uL Hgb (12.0-16.0) g/dL Hct (36-46) % MCV (80-100) fL MCH (26-34) PG MCHC (30-36) % RDW (11.6-14.8) % Plt Count (150-400) X10^3/uL Neut % (Auto) (50-75) % Lymph % (Auto) (25-40) % [place] % (Auto) (3-14) % Eos % (Auto) (2-4) % Baso % (Auto) (0-2) % Neut # (Auto) (4738-2903) /uL Lymph # (Auto) (1631-6813) /uL [place] # (Auto) (0-900) /uL Eos # (Auto) (0-450) /uL Baso # (Auto) (0-100) /uL PT (10.1-12.7) SECONDS INR (0.9-1.3) APTT (26-36) SECONDS ABG pH (7.35-7.45) ABG pCO2 (35-45) mmHg ABG pO2 (80-100) mmHg ABG HCO3 (23-27) mmol/L ABG Total CO2 (23-27) mmol/L ABG O2 Saturation (95-100) % ABG Base Excess (-2-3) mmol/L FiO2 Sodium (137-145) mmol/L Potassium (3.4-5.1) mmol/L Chloride (98-107) mmol/L Carbon Dioxide (22-32) mmol/L BUN (7-17) mg/dL Creatinine (0.52-1.04) mg/dL Estimated GFR (>60) mL/min BUN/Creatinine Ratio (6-22) Glucose (80-110) mg/dL Lactate (0.7-2.1) mmol/L Calcium (8.4-10.2) mg/dL Magnesium (1.6-2.3) mg/dL Total Bilirubin (0.2-1.3) mg/dL AST (14-36) IU/L ALT (<35) IU/L Alkaline Phosphatase (38-126) U/L Total Creatine Kinase (30-135) U/L CK-MB (CK-2) CK-MB (CK-2) Rel Index Troponin I (0.01-0.034) ng/mL NT-Pro-B Natriuret Pep (<125) pg/mL Total Protein (6.3-8.2) g/dL Albumin (3.5-5.0) g/dL Globulin (1.7-4.1) g/dL Albumin/Globulin Ratio (1.0-2.8) Procalcitonin (<0.5) ng/mL TSH 4.61 (0.47-4.68) uIU/mL Urine Color Yellow Urine Appearance Clear Urine pH 5.5 (4.5-8.0) Ur Specific Happy >=1.030 H (1.000-1.035) Urine Protein Trace H (Negative) Urine Glucose (UA) Negative (Negative) g/dL Urine Ketones Negative (NEGATIVE) Urine Occult Blood Negative (Negative) Urine Nitrate Negative (Negative) Urine Bilirubin Negative (NEGATIVE) Urine Urobilinogen 0.2 (0.2) E.U./dL Ur Leukocyte Esterase Negative (NEGATIVE) Urine RBC None seen (0-5/HPF) Urine WBC None seen (0-5/HPF) Urine Bacteria None seen (None) Ur Culture Indicated? Cult not indicated Micro UA Comment Microscopic normal Chlamy pneumoniae PCR Not detected (Not Detect) Adenovirus (PCR) Not detected (Not Detect) B. pertussis DNA (PCR) Not detected (Not Detecte) B.parapertussis DNA PCR Not detected (Not Detecte) Coronavirus OC43 (PCR) Not detected (Not Detect) Coronavirus HKU1 (PCR) Not detected (Not Detect) Coronavirus 229E (PCR) Not detected (Not Detect) SARS-CoV-2 (PCR) Not detected (Not Detecte) Coronavirus NL63 (PCR) Not detected (Not Detect) Human Metapneumovir PCR Not detected (Not Detect) Influenza Type A (PCR) Not detected (Not Detect) Influenza Type B (PCR) Not detected (Not Detect) M. pneumoniae (PCR) Not detected (Not Detect) Parainfluenza 1 (PCR) Not detected (Not Detect) Parainfluenza 2 (PCR) Not detected (Not Detect) Parainfluenza 3 (PCR) Not detected (Not Detect) Parainfluenza 4 (PCR) Not detected (Not Detect) RSV (PCR) Not detected (Not Detect) Entero/Rhino (PCR) Not detected (Not Detect) 06/03/22 Range/Units 09:00 WBC (4.5-11.0) X10^3/uL RBC (4.0-5.2) X10^6/uL Hgb (12.0-16.0) g/dL Hct (36-46) % MCV (80-100) fL MCH (26-34) PG MCHC (30-36) % RDW (11.6-14.8) % Plt Count (150-400) X10^3/uL Neut % (Auto) (50-75) % Lymph % (Auto) (25-40) % [place] % (Auto) (3-14) % Eos % (Auto) (2-4) % Baso % (Auto) (0-2) % Neut # (Auto) (1880-8997) /uL Lymph # (Auto) (8083-0020) /uL [place] # (Auto) (0-900) /uL Eos # (Auto) (0-450) /uL Baso # (Auto) (0-100) /uL PT (10.1-12.7) SECONDS INR (0.9-1.3) APTT (26-36) SECONDS ABG pH 7.37 (7.35-7.45) ABG pCO2 50.8 H (35-45) mmHg ABG pO2 71 L (80-100) mmHg ABG HCO3 29 H (23-27) mmol/L ABG Total CO2 31 H (23-27) mmol/L ABG O2 Saturation 93 L (95-100) % ABG Base Excess 4.0 H (-2-3) mmol/L FiO2 50 Sodium (137-145) mmol/L Potassium (3.4-5.1) mmol/L Chloride (98-107) mmol/L Carbon Dioxide (22-32) mmol/L BUN (7-17) mg/dL Creatinine (0.52-1.04) mg/dL Estimated GFR (>60) mL/min BUN/Creatinine Ratio (6-22) Glucose (80-110) mg/dL Lactate (0.7-2.1) mmol/L Calcium (8.4-10.2) mg/dL Magnesium (1.6-2.3) mg/dL Total Bilirubin (0.2-1.3) mg/dL AST (14-36) IU/L ALT (<35) IU/L Alkaline Phosphatase (38-126) U/L Total Creatine Kinase (30-135) U/L CK-MB (CK-2) CK-MB (CK-2) Rel Index Troponin I (0.01-0.034) ng/mL NT-Pro-B Natriuret Pep (<125) pg/mL Total Protein (6.3-8.2) g/dL Albumin (3.5-5.0) g/dL Globulin (1.7-4.1) g/dL Albumin/Globulin Ratio (1.0-2.8) Procalcitonin (<0.5) ng/mL TSH (0.47-4.68) uIU/mL Urine Color Urine Appearance Urine pH (4.5-8.0) Ur Specific Happy (1.000-1.035) Urine Protein (Negative) Urine Glucose (UA) (Negative) g/dL Urine Ketones (NEGATIVE) Urine Occult Blood (Negative) Urine Nitrate (Negative) Urine Bilirubin (NEGATIVE) Urine Urobilinogen (0.2) E.U./dL Ur Leukocyte Esterase (NEGATIVE) Urine RBC (0-5/HPF) Urine WBC (0-5/HPF) Urine Bacteria (None) Ur Culture Indicated? Micro UA Comment Chlamy pneumoniae PCR (Not Detect) Adenovirus (PCR) (Not Detect) B. pertussis DNA (PCR) (Not Detecte) B.parapertussis DNA PCR (Not Detecte) Coronavirus OC43 (PCR) (Not Detect) Coronavirus HKU1 (PCR) (Not Detect) Coronavirus 229E (PCR) (Not Detect) SARS-CoV-2 (PCR) (Not Detecte) Coronavirus NL63 (PCR) (Not Detect) Human Metapneumovir PCR (Not Detect) Influenza Type A (PCR) (Not Detect) Influenza Type B (PCR) (Not Detect) M. pneumoniae (PCR) (Not Detect) Parainfluenza 1 (PCR) (Not Detect) Parainfluenza 2 (PCR) (Not Detect) Parainfluenza 3 (PCR) (Not Detect) Parainfluenza 4 (PCR) (Not Detect) RSV (PCR) (Not Detect) Entero/Rhino (PCR) (Not Detect) Point of Care Testing Glucose POC 129 Imaging Data Chest x-ray: Radiologist's Impression: MR#: [id number] : 1950 Acct:[id number] Age/Sex: 72 / F Date of Service: 06/03/22 Loc: ED Accession Number: [id number] ?? Procedure: XR chest 1V Ordering Provider: Lalitha Gracia D.O. PROCEDURE:? XR CHEST 1V ? INDICATIONS:? short of breath ? TECHNIQUE:? One view of the chest was acquired.? ? COMPARISON:? [facility], , XR CHEST 1V, 04/24/2022, 10:17. ? FINDINGS:? ? Surgical changes and devices:? None.? ? Lungs and pleura:? Large airspace opacity occupying right mid to lower lung field is seen extending to right hilar region.? No pleural effusions or pneumothorax.? ? Mediastinum:? Mediastinal contours appear normal.? Heart size is mildly enlarged.? ? Bones and chest wall:? No suspicious bony lesions.? Overlying soft tissues appear unremarkable.? ? IMPRESSION:? Finding is suggestive of large right lower lobe infiltrate.? Follow-up until resolution is recommended to rule out underlying malignant process.? No pleural effusion or pneumothorax. ? ? Dictated by: Josr Silva M.D. on 06/03/2022 at 8:37 ? ? Approved by: Josr Silva M.D. on 06/03/2022 at 8:37 ? ECG Data Interpretation: Sinus rhythm rate 95 W[place] interval 134 QRS [address] changes mild artifact noted MDM Narrative Medical decision making narrative: Patient 72-year-old female chronically ill multiple comorbidities chronic immunodeficiency, bronchiectasis on home O2 of 5 L consistently now on BiPAP. She actually is doing quite well on BiPAP. Initially questionable asthma exacerbation versus CHF. Lung sound is slightly rhonchorous on exam however she was given Solu-Medrol. Chest x-ray does not show any significant pulmonary edema and BNP is in the 900s unlikely to be a congestive heart failure at this time. She is given albuterol along with BiPAP her work of breathing improved significantly. X-ray does show a probable pneumonia right lower lobe infiltrate. She is given Zosyn and vancomycin. She is also febrile 101. She is leukocytosis of 15. Normal lactic acid normal procalcitonin. She is previously had infection and sepsis without those by being elevated. She is currently febrile here with a temperature of 101? by temperature sensing Shay catheter. Records from [facility] have been received and reviewed. Chronically on Eliquis this is unlikely to be pulmonary embolism especially with fever and large infiltrate seen on x-ray At this time patient has acute on chronic respiratory failure with right upper lobe pneumonia and sepsis. She is not hypotensive. She is given some fluids. Dr. Downing updated on patient's symptoms test results and kindly accepts. Patient has a POLST form that is DNR DNI with limited interventions. I have confirmed this with the . Patient is chronically ill with increasing need for home O2 3 hospitalizations in about the last 1 month, please consider palliative care Discharge Plan Departure Patient Disposition: Admitted As Inpatient Clinical Impression: Pneumonia, Respiratory failure Admit Date/Time: 06/03/22 12:16 Admit Provider: Wade Downing
[2022-06-03 08:46] LABS: Add Manual Diff / Slide Review NO; Basophils Absolute Auto 100 /uL (0-100); Basophils Percent Auto 0.9 % (0-2); Eosinophils Absolute Auto 0 /uL (0-450); Hematocrit 31.5 % (36-46); Hemoglobin 10.1 g/dL (12.0-16.0); Lymphocytes Absolute Auto 2000 /uL (1100-4500); Lymphocytes Percent Auto 14.4 % (25-40); Mean Corpuscular HGB Conc 31.9 % (30-36); Mean Corpuscular Volume 84.5 fL (80-100); Monocytes Absolute Auto 700 /uL (0-900); Monocytes Percent Auto 5.4 % (3-14); Neutrophils Absolute Auto 11000 /uL (1500-7000); Neutrophils Percent Auto 79.3 % (50-75); Platelet Count 478 X10^3/uL (150-400); Red Blood Cell Count 3.73 X10^6/uL (4.0-5.2); Red Cell Distribution Width 19.6 % (11.6-14.8); White Blood Cell Count 13.9 X10^3/uL (4.5-11.0)
[2022-06-03 08:46] LABS: Appearance Urine UA CLEAR; Bilirubin Urine UA NEGATIVE (NEGATIVE); Color Urine UA YELLOW; Glucose Urine UA NEGATIVE (Negative); Ketones Urine UA NEGATIVE (NEGATIVE); Leukocyte Esterase Urine UA NEGATIVE (NEGATIVE); Nitrite Urine UA NEGATIVE (Negative); Occult Blood Urine UA NEGATIVE (Negative); Protein Urine UA TRACE (Negative); Specific Gravity Urine UA >=1.030 (1.000-1.035); Urobilinogen Urine UA 0.2 E.U./dL (0.2)
--- NOTE | 2022-06-03 08:46 | PC.NURSE ---
on home oxygen, a few weeks ago used 3L daytime and 4L at night, last days/week has been on 4L continuous, today/yesterday has been on 5L continous. POLST form on chart, at BS, [employer] at bs.
[2022-06-03 08:48] LABS: pH Urine UA 5.5 (4.5-8.0)
[2022-06-03 08:50] LABS: INR 1.2 (0.9-1.3); Prothrombin Time 13.2 SECONDS (10.1-12.7)
[2022-06-03 08:54] LABS: PTT Partial Thromboplastin Tim 33 SECONDS (26-36)
[2022-06-03 08:54] LABS: Bacteria Urine None Seen; Culture Indicated Urine Cult Not Indicated; RBC Urine None Seen (0-5/HPF); Urine Comments Microscopic Normal; WBC Urine None Seen (0-5/HPF)
[2022-06-03 08:58] LABS: Alanine Aminotransferase 17 IU/L (<35); Albumin 3.8 g/dL (3.5-5.0); Alkaline Phosphatase 87 U/L (38-126); Aspartate Aminotransferase 21 IU/L (14-36); BUN Creatinine Ratio 19.7 (6-22); Bilirubin Total 0.3 mg/dL (0.2-1.3); Blood Urea Nitrogen 14 mg/dL (7-17); Calcium 8.7 mg/dL (8.4-10.2); Carbon Dioxide 29 mmol/L (22-32); Chloride 100 mmol/L (98-107); Creatine Kinase 39 U/L (30-135); Estimated Glomerular Filt Rate > 60 mL/min (>60); Globulin 3.8 g/dL (1.7-4.1); Glucose 129 mg/dL (80-110); HEMOLYSIS < 15 (0-50); Lactate (Lactic Acid) 1.1 mmol/L (0.7-2.1); Potassium 4.2 mmol/L (3.4-5.1); Sodium 138 mmol/L (137-145); Total Protein 7.6 g/dL (6.3-8.2)
--- NOTE | 2022-06-03 09:01 | RT ---
Recieved pt on placed on Bipap 14/6 95% fio2 BUR 12.Pt vivienne well, mod sob noted MD at bedside and bipap plugged into red outlet with bag mask unit and suction on and functional at [facility]. Abg pending
[2022-06-03 09:10] LABS: NT-proBNP (BNP-Adult 18+) 915 pg/mL (<125); Troponin I < 0.012 ng/mL (0.01-0.034)
[2022-06-03 09:15] LABS: Procalcitonin 0.05 ng/mL (<0.5)
[2022-06-03 09:38] LABS: Adenovirus Not Detected (Not Detect); B. parapertussis Not Detected (Not Detecte); Bordetella pertussis Not Detected (Not Detecte); Chlamydophila pneumoniae Not Detected (Not Detect); Coronavirus 229E Not Detected (Not Detect); Coronavirus HKU1 Not Detected (Not Detect); Coronavirus NL 63 Not Detected (Not Detect); Coronavirus OC43 Not Detected (Not Detect); Human Metapneumovirus Not Detected (Not Detect); Human Rhinovirus/Enterovirus Not Detected (Not Detect); Influenza A Not Detected (Not Detect); Influenza B Not Detected (Not Detect); Mycoplasma pneumoniae Not Detected (Not Detect); Parainfluenza Virus 1 Not Detected (Not Detect); Parainfluenza Virus 2 Not Detected (Not Detect); Parainfluenza Virus 3 Not Detected (Not Detect); Parainfluenza Virus 4 Not Detected (Not Detect); Respiratory Syncytial Virus Not Detected (Not Detect); SARS- CoV-2 Not Detected (Not Detecte)
[2022-06-03] MEDS: KETOROLAC 30 MG/ML VIAL 15 MG IV (09:41)
[2022-06-03] MEDS: PIPERACILLIN/TAZO 4.5 GM in SODIUM CHLORIDE 0.9% 100 ML IV (09:41)
[2022-06-03] MEDS: VANCOMYCIN 1,500 MG/300 ML PIGGYBACK 200 MG IV (09:43)
[2022-06-03] MEDS: SODIUM CHLORIDE 0.9% 1,000 ML 150 ML IV (09:51)
[2022-06-03 10:25] LABS: pH ABG 7.37 (7.35-7.45)
[2022-06-03 10:26] LABS: HCO3 ABG 29 mmol/L (23-27); Oxygen Saturation ABG 93 % (95-100); PCO2 ABG 50.8 mmHg (35-45); PO2 ABG 71 mmHg (80-100); TCO2 ABG 31 mmol/L (23-27)
[2022-06-03 10:27] LABS: Fractionated Inspired Oxygen 50
--- NOTE | 2022-06-03 11:12 | PM.HP.1 ---
History of Present Illness History of Present Illness Date Patient Seen: 06/03/22 Chief complaint: resp failure Narrative: Radha Zavaleta is a 71-year-old female with a history of bronchiectasis with multiple prev pseumomonal, stenotrophomonas and MRSA pneumonias on chronic azithro, chronic hypoxic resp failure on 5L NC, CVID on q3w IVIG infusions, Afib on Amio/Eliquis, NSTEMI in January 2022, LORENE, DM2, asthma, chronic back pain, hypothyroidism, hypertension and hyperlipidemia who presents with worsening dypsnea and found to have RLL pneumonia. History obtained from as patient is sleeping on bipap. He says he noticed that he O2 sats were decreasing the past few days and she Patient History Medical History Abnormal chest xray (~1979) Anemia Ankle pain Anticoagulated Asthma (~1959) Bronchiectasis (~2006) Cervical spine disease Chronic back pain Colon polyps (~2015) Degenerative joint disease of spine (~2001) Diabetes mellitus, type II (~2009) Eczema Fibromyalgia Foot pain Hoarseness Hyperlipidemia Hypertension Hypothyroidism Migraines (~1964) 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 Osteopenia Pneumonia Pneumonia Recurrent sinusitis (~1970) Restless leg syndrome Shoulder pain (~03/2018) Sleep apnea Wears glasses Surgical History Anesthesia History of carpal tunnel release History of cataract removal with insertion of prosthetic lens (~2014) History of section History of laminectomy (~2002) History of spinal fusion (~2012) History of thumb surgery Family & Social History Family History Father Stroke Mother Hypertension Brother Cerebral aneurysm Prostate cancer Diabetes mellitus Hypertension Stroke Brother Arthritis Hyperlipidemia Hypertension Sister History of kidney cancer Hypertension Grandfather Cancer Grandmother Cancer Other Family history non-contributory Social History: household members spouse Safety & Behavioral: Feels Safe in Current Yes Environment Been Physically Hurt or No Threatened By a Person Tobacco & Substance use: Smoking Status Never smoker alcohol intake current alcohol intake frequency holiday/special occasion Substance Use Type does not use Meds Home Medications and Allergies Home Medications Medication Instructions Recorded Confirmed Type polyethylene glycol 3350 17 17 gm PO DAILY PRN Constipation ##0 06/06/17 06/03/22 History gram/dose oral powder (Miralax) albuterol sulfate 90 mcg/actuation 2 puff inhalation Q4-6H PRN 05/29/19 06/03/22 History aerosol inhaler Shortness Of Breath cholecalciferol (vitamin D3) 50 2,000 unit PO DAILY 05/29/19 06/03/22 History mcg (2,000 unit) tablet ferrous sulfate 325 mg (65 mg 325 mg PO BEDTIME 05/29/19 06/03/22 History iron) tablet immune glob,gamm(IgG) 10 %-pro-IgA 45 gram IV Q3W 05/29/19 06/03/22 History 0 to 50 mcg/mL intravenous solution (Privigen) spironolactone 50 mg tablet 50 mg PO DAILY 05/29/19 06/03/22 History tizanidine 4 mg capsule 4 mg PO QID PRN Muscle Spasm 05/29/19 06/03/22 History sodium chloride 3 % for 3 ml inhalation BID 06/05/19 06/03/22 History nebulization ondansetron HCl 4 mg tablet 4 mg PO Q8H PRN nausea and 10/06/19 06/03/22 Rx (Zofran) vomiting #30 tabs cetirizine 10 mg capsule (Zyrtec) 10 mg PO DAILY allergies 01/20/20 06/03/22 History montelukast 10 mg tablet 10 mg PO BEDTIME 01/20/20 06/03/22 History (Singulair) verio reflect glucometer #1 ea 01/28/20 04/24/22 Rx insulin syringe-needle U-100 0.5 #100 ea 03/30/20 04/24/22 Rx mL 31 gauge x 5/16 (BD Insulin Syringe Ultra-Fine) losartan 50 mg tablet 50 mg PO DAILY #90 tabs 08/05/20 06/03/22 Rx metformin 1,000 mg tablet 1,000 mg PO BID #180 tabs 09/03/20 06/03/22 Rx atorvastatin 40 mg tablet 40 mg PO BEDTIME 04/20/21 06/03/22 History epinephrine 0.3 mg/0.3 mL 0.3 mg IM Q5-15M PRN Allergic 04/20/21 06/03/22 History injection, auto-injector (EpiPen) Reaction furosemide 20 mg tablet (Lasix) 20 mg PO QAM 04/20/21 06/03/22 History insulin glargine 100 unit/mL 30 unit SUBCUT QAM 04/20/21 06/03/22 History subcutaneous solution insulin lispro 100 unit/mL 4 - 8 unit SUBCUT TID 04/20/21 06/03/22 History subcutaneous pen (Humalog KwikPen (U-100) Insulin) ipratropium 0.5 mg-albuterol 3 mg 3 ml inhalation BID 04/20/21 06/03/22 History (2.5 mg base)/3 mL nebulization soln levothyroxine 75 mcg tablet 75 mcg PO QAM 04/20/21 06/03/22 History nortriptyline 25 mg capsule 25 mg PO BEDTIME 04/20/21 06/03/22 History tiotropium bromide 18 mcg capsule 1 cap inhalation DAILY 04/20/21 06/03/22 History with inhalation device (Spiriva with HandiHaler) lansoprazole 15 mg capsule,delayed 30 mg PO BID 04/29/21 06/03/22 History release (Prevacid 24Hr) apixaban 5 mg (74 tabs) tablets in 5 mg PO BID #74 ea 05/01/21 06/03/22 Rx a dose pack duloxetine 30 mg capsule,delayed 30 mg PO DAILY 06/28/21 06/03/22 History release fluticasone 500 mcg-salmeterol 50 1 inh inhalation BID 06/28/21 06/03/22 History mcg/dose blistr powdr for inhalation (Wixela Inhub) guaifenesin 1,200 mg tablet, 1,200 mg PO BID 06/28/21 06/03/22 History extended release 12 hr (Mucinex) oxycodone-acetaminophen 10 mg-325 1 tab PO Q4H PRN Pain (Scale Score 06/28/21 06/03/22 History mg tablet (Percocet) 4-6) pramipexole 0.5 mg tablet 0.5 mg PO BEDTIME 06/28/21 06/03/22 History fentanyl 25 mcg/hr transdermal 1 patch transdermal Q72H PRN pain 02/05/22 06/03/22 Rx patch (scale score 1-3) #5 ea azithromycin 250 mg tablet 250 mg PO 3XW 04/24/22 06/03/22 History docusate sodium 100 mg tablet 200 mg PO DAILY 04/24/22 06/03/22 History metoprolol succinate 25 mg 12.5 mg PO BID 04/24/22 06/03/22 History tablet,extended release 24 hr omega-3 fatty acids 1,000 mg PO DAILY 04/24/22 06/03/22 History benralizumab 30 mg/mL subcutaneous 30 mg SUBCUT Q8W 06/03/22 06/03/22 History syringe (Fasenra) [id number] 1 tab PO Q6H PRN Migraine Headache 06/03/22 06/03/22 History 50 mg-325 mg-40 mg tablet clonidine HCl 0.1 mg tablet 0.05 mg PO BID 06/03/22 06/03/22 History oxycodone 5 mg capsule 5 mg PO Q6H PRN Pain (Scale Score 06/03/22 06/03/22 History 7-10) oxymetazoline 0.05 % nasal drops 1 drp intranasal BID PRN Congestion 06/03/22 06/03/22 History prednisone 5 mg tablet 5 mg PO DAILY 06/03/22 06/03/22 History pregabalin 75 mg capsule 75 mg PO DAILY 06/03/22 06/03/22 History Allergies Allergy/AdvReac Type Severity Reaction Status Date / Time hydroxychloroquine Allergy Unknown Verified 06/03/22 08:25 [HYDROXYCHLOROQUINE] promethazine [From Phenergan] Allergy Agitated Verified 06/03/22 08:25 cefepime AdvReac Severe pruritis Verified 06/03/22 08:25 Review of Systems Review of Systems Narrative: All other systems reviewed with the patient and are negative unless otherwise stated. Exam Vital Signs (past 8 hours): - 06/03/22 08:09 06/03/22 08:35 06/03/22 08:13 Temperature 97.7 F 100.2 F H Pulse Rate 105 H 96 H Respiratory Rate 40 H 35 H Blood Pressure 147/90 H Pulse Oximetry 88 L 100 Oxygen Delivery Method CPAP BiPAP Oxygen Flow Rate 15 Fraction of Inspired Oxygen 06/03/22 08:14 06/03/22 08:14 06/03/22 08:18 Temperature Pulse Rate 192 H Respiratory Rate 36 H Blood Pressure 147/90 H 202/120 H Pulse Oximetry Oxygen Delivery Method Oxygen Flow Rate Fraction of Inspired Oxygen 06/03/22 08:18 06/03/22 08:26 06/03/22 08:26 Temperature Pulse Rate 105 H 97 H Respiratory Rate 28 H 29 H Blood Pressure 157/92 H Pulse Oximetry 96 97 Oxygen Delivery Method BiPAP BiPAP Oxygen Flow Rate Fraction of Inspired Oxygen 06/03/22 08:30 06/03/22 08:31 06/03/22 08:31 Temperature Pulse Rate 96 H 98 H Respiratory Rate 38 H 39 H Blood Pressure 136/78 Pulse Oximetry 98 98 Oxygen Delivery Method BiPAP BiPAP Oxygen Flow Rate Fraction of Inspired Oxygen 06/03/22 08:10 06/03/22 08:40 06/03/22 08:40 Temperature 99.9 F H Pulse Rate 94 H Respiratory Rate 31 H Blood Pressure 148/90 H 190/102 H Pulse Oximetry 100 Oxygen Delivery Method BiPAP Oxygen Flow Rate Fraction of Inspired Oxygen 95 06/03/22 08:50 06/03/22 08:50 06/03/22 09:00 Temperature 100.9 F H Pulse Rate 95 H Respiratory Rate 26 H Blood Pressure 203/87 H 178/74 H Pulse Oximetry 95 Oxygen Delivery Method BiPAP Oxygen Flow Rate Fraction of Inspired Oxygen 06/03/22 09:00 06/03/22 09:10 06/03/22 09:10 Temperature 101.3 F H 101.5 F H Pulse Rate 95 H 96 H Respiratory Rate 27 H 36 H Blood Pressure 143/76 H Pulse Oximetry 94 92 Oxygen Delivery Method BiPAP Oxygen Flow Rate Fraction of Inspired Oxygen 06/03/22 09:41 06/03/22 09:30 06/03/22 09:54 Temperature 101.7 F H Pulse Rate 97 H Respiratory Rate 24 Blood Pressure 137/70 Pulse Oximetry 95 Oxygen Delivery Method BiPAP Oxygen Flow Rate Fraction of Inspired Oxygen 96 06/03/22 09:20 06/03/22 09:20 06/03/22 09:30 Temperature 101.7 F H Pulse Rate 97 H Respiratory Rate 27 H Blood Pressure 137/70 147/61 H Pulse Oximetry Oxygen Delivery Method Oxygen Flow Rate Fraction of Inspired Oxygen 06/03/22 09:30 06/03/22 09:40 06/03/22 09:40 Temperature 101.7 F H 101.7 F H Pulse Rate 98 H 96 H Respiratory Rate 24 27 H Blood Pressure 155/74 H Pulse Oximetry 97 96 Oxygen Delivery Method BiPAP BiPAP Oxygen Flow Rate Fraction of Inspired Oxygen 06/03/22 09:50 06/03/22 09:52 06/03/22 09:52 Temperature 101.7 F H 101.7 F H Pulse Rate 99 H 98 H Respiratory Rate 33 H 29 H Blood Pressure 131/63 Pulse Oximetry 98 99 Oxygen Delivery Method BiPAP BiPAP Oxygen Flow Rate Fraction of Inspired Oxygen 06/03/22 10:00 06/03/22 10:00 06/03/22 10:10 Temperature 101.7 F H Pulse Rate 96 H Respiratory Rate 25 H Blood Pressure 133/60 123/60 Pulse Oximetry 97 Oxygen Delivery Method BiPAP Oxygen Flow Rate Fraction of Inspired Oxygen 06/03/22 10:10 06/03/22 10:20 06/03/22 10:20 Temperature 101.7 F H 101.7 F H Pulse Rate 96 H 97 H Respiratory Rate 32 H 34 H Blood Pressure 117/61 Pulse Oximetry 98 96 Oxygen Delivery Method BiPAP BiPAP Oxygen Flow Rate Fraction of Inspired Oxygen 06/03/22 10:30 06/03/22 10:30 Temperature 101.7 F H Pulse Rate 93 H Respiratory Rate 26 H Blood Pressure 115/57 L Pulse Oximetry 93 Oxygen Delivery Method BiPAP Oxygen Flow Rate Fraction of Inspired Oxygen Fraction of Inspired Oxygen 96 Oxygen Delivery Method BiPAP Oxygen Flow Rate 15 Narrative Exam Narrative: GEN: no acute distress HEENT: moist mucous membranes, PERRL NECK: trachea midline, no JVD CV: regular rate and rhythm, no murmurs PULM: clear bilaterally ABD: soft, nontender, nondistended, no organomegaly EXT: warm and well perfused with no edema NEURO: awake, alert, oriented, no focal deficits Objective Labs 06/03/22 08:25 06/03/22 08:25 Labs: Laboratory Results - last 24 hr 06/03/22 06/03/22 06/03/22 08:25 08:25 08:25 WBC 13.9 H RBC 3.73 L Hgb 10.1 L Hct 31.5 L MCV 84.5 MCH 27.0 MCHC 31.9 RDW 19.6 H Plt Count 478 H Neut % (Auto) 79.3 H Lymph % (Auto) 14.4 L [place] % (Auto) 5.4 Eos % (Auto) 0.0 L Baso % (Auto) 0.9 Neut # (Auto) 70896 H Lymph # (Auto) 2000 [place] # (Auto) 700 Eos # (Auto) 0 Baso # (Auto) 100 PT 13.2 H INR 1.2 APTT ABG pH ABG pCO2 ABG pO2 ABG HCO3 ABG Total CO2 ABG O2 Saturation ABG Base Excess FiO2 Sodium 138 Potassium 4.2 Chloride 100 Carbon Dioxide 29 BUN 14 Creatinine 0.71 Estimated GFR > 60 BUN/Creatinine Ratio 19.7 Glucose 129 H Lactate Calcium 8.7 Total Bilirubin 0.3 AST 21 ALT 17 Alkaline Phosphatase 87 Total Creatine Kinase 39 CK-MB (CK-2) TNP CK-MB (CK-2) Rel Index TNP Troponin I < 0.012 NT-Pro-B Natriuret Pep 915 H Total Protein 7.6 Albumin 3.8 Globulin 3.8 Albumin/Globulin Ratio 1.0 Procalcitonin 0.05 Urine Color Urine Appearance Urine pH Ur Specific [place] Urine Protein Urine Glucose (UA) Urine Ketones Urine Occult Blood Urine Nitrate Urine Bilirubin Urine Urobilinogen Ur Leukocyte Esterase Urine RBC Urine WBC Urine Bacteria Ur Culture Indicated? Micro UA Comment Chlamy pneumoniae PCR Adenovirus (PCR) B. pertussis DNA (PCR) B.parapertussis DNA PCR Coronavirus OC43 (PCR) Coronavirus HKU1 (PCR) Coronavirus 229E (PCR) SARS-CoV-2 (PCR) Coronavirus NL63 (PCR) Human Metapneumovir PCR Influenza Type A (PCR) Influenza Type B (PCR) M. pneumoniae (PCR) Parainfluenza 1 (PCR) Parainfluenza 2 (PCR) Parainfluenza 3 (PCR) Parainfluenza 4 (PCR) RSV (PCR) Entero/Rhino (PCR) 06/03/22 06/03/22 06/03/22 08:25 08:25 08:31 WBC RBC Hgb Hct MCV MCH MCHC RDW Plt Count Neut % (Auto) Lymph % (Auto) [place] % (Auto) Eos % (Auto) Baso % (Auto) Neut # (Auto) Lymph # (Auto) [place] # (Auto) Eos # (Auto) Baso # (Auto) PT INR APTT 33 ABG pH ABG pCO2 ABG pO2 ABG HCO3 ABG Total CO2 ABG O2 Saturation ABG Base Excess FiO2 Sodium Potassium Chloride Carbon Dioxide BUN Creatinine Estimated GFR BUN/Creatinine Ratio Glucose Lactate 1.1 Calcium Total Bilirubin AST ALT Alkaline Phosphatase Total Creatine Kinase CK-MB (CK-2) CK-MB (CK-2) Rel Index Troponin I NT-Pro-B Natriuret Pep Total Protein Albumin Globulin Albumin/Globulin Ratio Procalcitonin Urine Color Yellow Urine Appearance Clear Urine pH 5.5 Ur Specific [place] >=1.030 H Urine Protein Trace H Urine Glucose (UA) Negative Urine Ketones Negative Urine Occult Blood Negative Urine Nitrate Negative Urine Bilirubin Negative Urine Urobilinogen 0.2 Ur Leukocyte Esterase Negative Urine RBC None seen Urine WBC None seen Urine Bacteria None seen Ur Culture Indicated? Cult not indicated Micro UA Comment Microscopic normal Chlamy pneumoniae PCR Adenovirus (PCR) B. pertussis DNA (PCR) B.parapertussis DNA PCR Coronavirus OC43 (PCR) Coronavirus HKU1 (PCR) Coronavirus 229E (PCR) SARS-CoV-2 (PCR) Coronavirus NL63 (PCR) Human Metapneumovir PCR Influenza Type A (PCR) Influenza Type B (PCR) M. pneumoniae (PCR) Parainfluenza 1 (PCR) Parainfluenza 2 (PCR) Parainfluenza 3 (PCR) Parainfluenza 4 (PCR) RSV (PCR) Entero/Rhino (PCR) 06/03/22 06/03/22 08:31 09:00 WBC RBC Hgb Hct MCV MCH MCHC RDW Plt Count Neut % (Auto) Lymph % (Auto) [place] % (Auto) Eos % (Auto) Baso % (Auto) Neut # (Auto) Lymph # (Auto) [place] # (Auto) Eos # (Auto) Baso # (Auto) PT INR APTT ABG pH 7.37 ABG pCO2 50.8 H ABG pO2 71 L ABG HCO3 29 H ABG Total CO2 31 H ABG O2 Saturation 93 L ABG Base Excess 4.0 H FiO2 50 Sodium Potassium Chloride Carbon Dioxide BUN Creatinine Estimated GFR BUN/Creatinine Ratio Glucose Lactate Calcium Total Bilirubin AST ALT Alkaline Phosphatase Total Creatine Kinase CK-MB (CK-2) CK-MB (CK-2) Rel Index Troponin I NT-Pro-B Natriuret Pep Total Protein Albumin Globulin Albumin/Globulin Ratio Procalcitonin Urine Color Urine Appearance Urine pH Ur Specific [place] Urine Protein Urine Glucose (UA) Urine Ketones Urine Occult Blood Urine Nitrate Urine Bilirubin Urine Urobilinogen Ur Leukocyte Esterase Urine RBC Urine WBC Urine Bacteria Ur Culture Indicated? Micro UA Comment Chlamy pneumoniae PCR Not detected Adenovirus (PCR) Not detected B. pertussis DNA (PCR) Not detected B.parapertussis DNA PCR Not detected Coronavirus OC43 (PCR) Not detected Coronavirus HKU1 (PCR) Not detected Coronavirus 229E (PCR) Not detected SARS-CoV-2 (PCR) Not detected Coronavirus NL63 (PCR) Not detected Human Metapneumovir PCR Not detected Influenza Type A (PCR) Not detected Influenza Type B (PCR) Not detected M. pneumoniae (PCR) Not detected Parainfluenza 1 (PCR) Not detected Parainfluenza 2 (PCR) Not detected Parainfluenza 3 (PCR) Not detected Parainfluenza 4 (PCR) Not detected RSV (PCR) Not detected Entero/Rhino (PCR) Not detected Assessment & Plan Assessment & Plan narrative: # acute on chronic hypoxic respiratory failure # sepsis secondary to right lower lobe pneumonia Time Spent With Patient Critical Care time: I spent a total of [] minutes of critical care time on this patient's care today; this time is exclusive of procedural time.
[2022-06-03 11:16] LABS: Magnesium 1.4 mg/dL (1.6-2.3)
[2022-06-03 11:47] LABS: TSH w/ Reflex to FT4 4.61 uIU/mL (0.47-4.68)
[2022-06-03] MEDS: PREGABALIN 75 MG CAPSULE 150 MG PO (11:59)
[2022-06-03] MEDS: diphenhydrAMINE 50 MG/ML VIAL 25 MG IV ×2 (12:00→23:44)
[2022-06-03] MEDS: OXYCODONE IR 5 MG TABLET 10 MG PO (12:00)
[2022-06-03] MEDS: APIXABAN 5 MG TABLET PO ×2 (12:01→20:18)
--- NOTE | 2022-06-03 12:01 | PC.NURSE ---
reviewed potential arrythme notted at 1143:56 and 1144:[address] Gracia. No new orders. appears to be artifact. Pt alert, pink/warm/dry throughout and in no acute distress. at bedside.
[2022-06-03] MEDS: DULOXETINE 30 MG CAPSULE PO (12:02)
[2022-06-03] MEDS: LORATADINE 10 MG TABLET PO (12:02)
[2022-06-03] MEDS: CEFEPIME 2 GM in SODIUM CHLORIDE 0.9% 100 ML IV ×2 (12:03→23:36)
[2022-06-03] MEDS: AZITHROMYCIN 500 MG in DEXTROSE 5% IN WATER 250 ML 250 MG IV (12:04)
[2022-06-03] MEDS: MAGNESIUM SULFATE 2 GM/50 ML PIGGYBACK IV (12:06)
--- NOTE | 2022-06-03 18:14 | P.HP_ITS ---
History of Present Illness History of Present Illness Date Patient Seen: 06/03/22 Chief complaint: resp failure Narrative: Radha Zavaleta is a 71-year-old female with a history of asthma, bronchiectasis with multiple previous pseumomonal, stenotrophomonas and MRSA pneumonias on chronic azithro, chronic hypoxic resp failure on 5L NC, CVID on q3w IVIG infusions, Afib on Amio/Eliquis, NSTEMI in January 2022, LORENE, DM2, asthma, chronic back pain, hypothyroidism, hypertension and hyperlipidemia who presents with worsening dypsnea and found to have RLL pneumonia. History obtained from as patient is somnolent on bipap. He says he noticed that he O2 sats were decreasing the past few days and she was requiring higher amounts of her supplemental O2 to maintain sats. She finally was on 5L NC and satting 85% so EMS called and she was placed on CPAP and given breathing treatment. In the ED patient found to have fever of 101.7, WBC 13.9 and ABG showed pH 7.37, pCO2 50, pO2 71 and HCO3 29. Patient placed on bipap with improvement in sats. confirms patient is DNR/DNI. Patient History Medical History Abnormal chest xray (~1979) Anemia Ankle pain Anticoagulated Asthma (~1959) Bronchiectasis (~2006) Cervical spine disease Chronic back pain Colon polyps (~2015) Degenerative joint disease of spine (~2001) Diabetes mellitus, type II (~2009) Eczema Fibromyalgia Foot pain Hoarseness Hyperlipidemia Hypertension Hypothyroidism Migraines (~1964) 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 Osteopenia Pneumonia Pneumonia Recurrent sinusitis (~1970) Restless leg syndrome Shoulder pain (~03/2018) Sleep apnea Wears glasses Surgical History Anesthesia History of carpal tunnel release History of cataract removal with insertion of prosthetic lens (~2014) History of section History of laminectomy (~2002) History of spinal fusion (~2012) History of thumb surgery Family & Social History Family History Father Stroke Mother Hypertension Brother Cerebral aneurysm Prostate cancer Diabetes mellitus Hypertension Stroke Brother Arthritis Hyperlipidemia Hypertension Sister History of kidney cancer Hypertension Grandfather Cancer Grandmother Cancer Other Family history non-contributory Social History: household members spouse Safety & Behavioral: Feels Safe in Current Yes Environment Been Physically Hurt or No Threatened By a Person Tobacco & Substance use: Smoking Status Never smoker alcohol intake current alcohol intake frequency holiday/special occasion Substance Use Type does not use Meds Home Medications and Allergies Home Medications Medication Instructions Recorded Confirmed Type polyethylene glycol 3350 17 17 gm PO DAILY PRN Constipation ##0 06/06/17 06/03/22 History gram/dose oral powder (Miralax) albuterol sulfate 90 mcg/actuation 2 puff inhalation Q4-6H PRN 05/29/19 06/03/22 History aerosol inhaler Shortness Of Breath cholecalciferol (vitamin D3) 50 2,000 unit PO DAILY 05/29/19 06/03/22 History mcg (2,000 unit) tablet ferrous sulfate 325 mg (65 mg 325 mg PO BEDTIME 05/29/19 06/03/22 History iron) tablet immune glob,gamm(IgG) 10 %-pro-IgA 45 gram IV Q3W 05/29/19 06/03/22 History 0 to 50 mcg/mL intravenous solution (Privigen) spironolactone 50 mg tablet 50 mg PO DAILY 05/29/19 06/03/22 History tizanidine 4 mg capsule 4 mg PO QID PRN Muscle Spasm 05/29/19 06/03/22 History sodium chloride 3 % for 3 ml inhalation BID 06/05/19 06/03/22 History nebulization ondansetron HCl 4 mg tablet 4 mg PO Q8H PRN nausea and 10/06/19 06/03/22 Rx (Zofran) vomiting #30 tabs cetirizine 10 mg capsule (Zyrtec) 10 mg PO DAILY allergies 01/20/20 06/03/22 History montelukast 10 mg tablet 10 mg PO BEDTIME 01/20/20 06/03/22 History (Singulair) verio reflect glucometer #1 ea 01/28/20 04/24/22 Rx insulin syringe-needle U-100 0.5 #100 ea 03/30/20 04/24/22 Rx mL 31 gauge x 5/16 (BD Insulin Syringe Ultra-Fine) losartan 50 mg tablet 50 mg PO DAILY #90 tabs 08/05/20 06/03/22 Rx metformin 1,000 mg tablet 1,000 mg PO BID #180 tabs 09/03/20 06/03/22 Rx atorvastatin 40 mg tablet 40 mg PO BEDTIME 04/20/21 06/03/22 History epinephrine 0.3 mg/0.3 mL 0.3 mg IM Q5-15M PRN Allergic 04/20/21 06/03/22 Hist ory injection, auto-injector (EpiPen) Reaction furosemide 20 mg tablet (Lasix) 20 mg PO QAM 04/20/21 06/03/22 History insulin glargine 100 unit/mL 30 unit SUBCUT QAM 04/20/21 06/03/22 History subcutaneous solution insulin lispro 100 unit/mL 4 - 8 unit SUBCUT TID 04/20/21 06/03/22 History subcutaneous pen (Humalog KwikPen (U-100) Insulin) ipratropium 0.5 mg-albuterol 3 mg 3 ml inhalation BID 04/20/21 06/03/22 History (2.5 mg base)/3 mL nebulization soln levothyroxine 75 mcg tablet 75 mcg PO QAM 04/20/21 06/03/22 History nortriptyline 25 mg capsule 25 mg PO BEDTIME 04/20/21 06/03/22 History tiotropium bromide 18 mcg capsule 1 cap inhalation DAILY 04/20/21 06/03/22 History with inhalation device (Spiriva with HandiHaler) lansoprazole 15 mg capsule,delayed 30 mg PO BID 04/29/21 06/03/22 History release (Prevacid 24Hr) apixaban 5 mg (74 tabs) tablets in 5 mg PO BID #74 ea 05/01/21 06/03/22 Rx a dose pack duloxetine 30 mg capsule,delayed 30 mg PO DAILY 06/28/21 06/03/22 History release fluticasone 500 mcg-salmeterol 50 1 inh inhalation BID 06/28/21 06/03/22 History mcg/dose blistr powdr for inhalation (Wixela Inhub) guaifenesin 1,200 mg tablet, 1,200 mg PO BID 06/28/21 06/03/22 History extended release 12 hr (Mucinex) oxycodone-acetaminophen 10 mg-325 1 tab PO Q4H PRN Pain (Scale Score 06/28/21 06/03/22 History mg tablet (Percocet) 4-6) pramipexole 0.5 mg tablet 0.5 mg PO BEDTIME 06/28/21 06/03/22 History fentanyl 25 mcg/hr transdermal 1 patch transdermal Q72H PRN pain 02/05/22 06/03/22 Rx patch (scale score 1-3) #5 ea azithromycin 250 mg tablet 250 mg PO 3XW 04/24/22 06/03/22 History docusate sodium 100 mg tablet 200 mg PO DAILY 04/24/22 06/03/22 History metoprolol succinate 25 mg 12.5 mg PO BID 04/24/22 06/03/22 History tablet,extended release 24 hr omega-3 fatty acids 1,000 mg PO DAILY 04/24/22 06/03/22 History benralizumab 30 mg/mL subcutaneous 30 mg SUBCUT Q8W 06/03/22 06/03/22 History syringe (Fasenra) [id number]-[id number] 1 tab PO Q6H PRN Migraine Headache 06/03/22 06/03/22 History 50 mg-325 mg-40 mg tablet clonidine HCl 0.1 mg tablet 0.05 mg PO BID 06/03/22 06/03/22 History oxycodone 5 mg capsule 5 mg PO Q6H PRN Pain (Scale Score 06/03/22 06/03/22 History 7-10) oxymetazoline 0.05 % nasal drops 1 drp intranasal BID PRN Congestion 06/03/22 06/03/22 History prednisone 5 mg tablet 5 mg PO DAILY 06/03/22 06/03/22 History pregabalin 75 mg capsule 75 mg PO DAILY 06/03/22 06/03/22 History Allergies Allergy/AdvReac Type Severity Reaction Status Date / Time hydroxychloroquine Allergy Unknown Verified 06/03/22 08:25 [HYDROXYCHLOROQUINE] promethazine [From Phenergan] Allergy Agitated Verified 06/03/22 08:25 cefepime AdvReac Severe pruritis Verified 06/03/22 08:25 Review of Systems Review of Systems Narrative: All other systems reviewed with the patient and are negative unless otherwise stated. Exam Vital Signs (past 8 hours): - 06/03/22 10:20 06/03/22 10:20 06/03/22 10:30 Temperature 101.7 F H Pulse Rate 97 H Respiratory Rate 34 H Blood Pressure 117/61 115/57 L Pulse Oximetry 96 Oxygen Delivery Method BiPAP Oxygen Flow Rate Fraction of Inspired Oxygen 06/03/22 10:30 06/03/22 10:40 06/03/22 10:40 Temperature 101.7 F H 101.7 F H Pulse Rate 93 H 92 H Respiratory Rate 26 H 25 H Blood Pressure 108/55 L Pulse Oximetry 93 91 Oxygen Delivery Method BiPAP BiPAP Oxygen Flow Rate Fraction of Inspired Oxygen 06/03/22 10:50 06/03/22 10:50 06/03/22 11:00 Temperature 101.5 F H Pulse Rate 92 H Respiratory Rate 23 Blood Pressure 112/58 L 120/65 Pulse Oximetry 92 Oxygen Delivery Method BiPAP Oxygen Flow Rate Fraction of Inspired Oxygen 06/03/22 11:00 06/03/22 11:10 06/03/22 11:10 Temperature 101.5 F H 101.3 F H Pulse Rate 93 H 92 H Respiratory Rate 33 H 32 H Blood Pressure 125/61 Pulse Oximetry 95 96 Oxygen Delivery Method BiPAP BiPAP Oxygen Flow Rate Fraction of Inspired Oxygen 06/03/22 11:20 06/03/22 11:20 06/03/22 11:30 Temperature 101.3 F H Pulse Rate 91 H Respiratory Rate 31 H Blood Pressure 121/59 L 124/61 Pulse Oximetry 94 Oxygen Delivery Method BiPAP Oxygen Flow Rate Fraction of Inspired Oxygen 06/03/22 11:30 06/03/22 11:40 06/03/22 11:40 Temperature 101.1 F H 101.1 F H Pulse Rate 92 H 90 Respiratory Rate 28 H 24 Blood Pressure 124/57 L Pulse Oximetry 97 95 Oxygen Delivery Method BiPAP Oxygen Flow Rate Fraction of Inspired Oxygen 06/03/22 11:50 06/03/22 11:50 06/03/22 12:00 Temperature 100.9 F H Pulse Rate 90 Respiratory Rate 24 Blood Pressure 116/58 L 120/58 L Pulse Oximetry 93 Oxygen Delivery Method Oxygen Flow Rate Fraction of Inspired Oxygen 06/03/22 12:00 06/03/22 12:10 06/03/22 12:10 Temperature 100.8 F H 100.6 F H Pulse Rate 90 91 H Respiratory Rate 26 H 26 H Blood Pressure 125/57 L Pulse Oximetry 95 98 Oxygen Delivery Method BiPAP Oxygen Flow Rate Fraction of Inspired Oxygen 06/03/22 12:20 06/03/22 12:20 06/03/22 13:43 Temperature 100.6 F H Pulse Rate 87 Respiratory Rate 25 H Blood Pressure 119/58 L Pulse Oximetry 97 Oxygen Delivery Method BiPAP BiPAP Oxygen Flow Rate 50 Fraction of Inspired Oxygen 06/03/22 13:00 06/03/22 12:30 06/03/22 12:30 Temperature 97.7 F 100.4 F H Pulse Rate 89 Respiratory Rate 24 Blood Pressure 125/58 L Pulse Oximetry 97 Oxygen Delivery Method Oxygen Flow Rate Fraction of Inspired Oxygen 06/03/22 12:40 06/03/22 12:40 06/03/22 14:13 Temperature 100.2 F H Pulse Rate 87 75 Respiratory Rate 25 H 15 Blood Pressure 112/57 L Pulse Oximetry 98 88 L Oxygen Delivery Method Oxygen Flow Rate Fraction of Inspired Oxygen 06/03/22 14:20 06/03/22 14:30 06/03/22 14:00 Temperature Pulse Rate 75 75 77 Respiratory Rate 20 17 18 Blood Pressure 101/53 L Pulse Oximetry 92 92 95 Oxygen Delivery Method Oxygen Flow Rate Fraction of Inspired Oxygen 62 06/03/22 15:00 06/03/22 16:00 06/03/22 17:00 Temperature Pulse Rate 78 74 76 Respiratory Rate 21 15 14 Blood Pressure 154/71 H 107/54 L 134/61 Pulse Oximetry 98 97 94 Oxygen Delivery Method Oxygen Flow Rate Fraction of Inspired Oxygen 62 06/03/22 18:00 Temperature Pulse Rate 72 Respiratory Rate 13 Blood Pressure 113/58 L Pulse Oximetry 97 Oxygen Delivery Method Oxygen Flow Rate Fraction of Inspired Oxygen Fraction of Inspired Oxygen 62 Oxygen Delivery Method BiPAP Oxygen Flow Rate 50 Narrative Exam Narrative: GEN: Ill-appearing female somnolent on BiPAP HEENT: moist mucous membranes, PERRL NECK: trachea midline, no JVD CV: regular rate and rhythm, no murmurs PULM: Diffuse coarse breath sounds ABD: soft, nontender, nondistended, no organomegaly EXT: warm and well perfused with no edema NEURO: Unable to assess mental status while on BiPAP, no focal deficits Objective Labs 06/03/22 08:25 06/03/22 08:25 Labs: Laboratory Results - last 24 hr 0206/03/22 06/03/22 08:25 08:25 08:25 WBC 13.9 H RBC 3.73 L Hgb 10.1 L Hct 31.5 L MCV 84.5 MCH 27.0 MCHC 31.9 RDW 19.6 H Plt Count 478 H Neut % (Auto) 79.3 H Lymph % (Auto) 14.4 L [place] % (Auto) 5.4 Eos % (Auto) 0.0 L Baso % (Auto) 0.9 Neut # (Auto) 35369 H Lymph # (Auto) 2000 [place] # (Auto) 700 Eos # (Auto) 0 Baso # (Auto) 100 PT 13.2 H INR 1.2 APTT ABG pH ABG pCO2 ABG pO2 ABG HCO3 ABG Total CO2 ABG O2 Saturation ABG Base Excess FiO2 Sodium 138 Potassium 4.2 Chloride 100 Carbon Dioxide 29 BUN 14 Creatinine 0.71 Estimated GFR > 60 BUN/Creatinine Ratio 19.7 Glucose 129 H Lactate Calcium 8.7 Magnesium Total Bilirubin 0.3 AST 21 ALT 17 Alkaline Phosphatase 87 Total Creatine Kinase 39 CK-MB (CK-2) TNP CK-MB (CK-2) Rel Index TNP Troponin I < 0.012 NT-Pro-B Natriuret Pep 915 H Total Protein 7.6 Albumin 3.8 Globulin 3.8 Albumin/Globulin Ratio 1.0 Procalcitonin 0.05 TSH Urine Color Urine Appearance Urine pH Ur Specific [place] Urine Protein Urine Glucose (UA) Urine Ketones Urine Occult Blood Urine Nitrate Urine Bilirubin Urine Urobilinogen Ur Leukocyte Esterase Urine RBC Urine WBC Urine Bacteria Ur Culture Indicated? Micro UA Comment Chlamy pneumoniae PCR Adenovirus (PCR) B. pertussis DNA (PCR) B.parapertussis DNA PCR Coronavirus OC43 (PCR) Coronavirus HKU1 (PCR) Coronavirus 229E (PCR) SARS-CoV-2 (PCR) Coronavirus NL63 (PCR) Human Metapneumovir PCR Influenza Type A (PCR) Influenza Type B (PCR) M. pneumoniae (PCR) Parainfluenza 1 (PCR) Parainfluenza 2 (PCR) Parainfluenza 3 (PCR) Parainfluenza 4 (PCR) RSV (PCR) Entero/Rhino (PCR) 06/03/22 06/03/22 06/03/22 08:25 08:25 08:30 WBC RBC Hgb Hct MCV MCH MCHC RDW Plt Count Neut % (Auto) Lymph % (Auto) [place] % (Auto) Eos % (Auto) Baso % (Auto) Neut # (Auto) Lymph # (Auto) [place] # (Auto) Eos # (Auto) Baso # (Auto) PT INR APTT 33 ABG pH ABG pCO2 ABG pO2 ABG HCO3 ABG Total CO2 ABG O2 Saturation ABG Base Excess FiO2 Sodium Potassium Chloride Carbon Dioxide BUN Creatinine Estimated GFR BUN/Creatinine Ratio Glucose Lactate 1.1 Calcium Magnesium 1.4 L Total Bilirubin AST ALT Alkaline Phosphatase Total Creatine Kinase CK-MB (CK-2) CK-MB (CK-2) Rel Index Troponin I NT-Pro-B Natriuret Pep Total Protein Albumin Globulin Albumin/Globulin Ratio Procalcitonin TSH Urine Color Urine Appearance Urine pH Ur Specific [place] Urine Protein Urine Glucose (UA) Urine Ketones Urine Occult Blood Urine Nitrate Urine Bilirubin Urine Urobilinogen Ur Leukocyte Esterase Urine RBC Urine WBC Urine Bacteria Ur Culture Indicated? Micro UA Comment Chlamy pneumoniae PCR Adenovirus (PCR) B. pertussis DNA (PCR) B.parapertussis DNA PCR Coronavirus OC43 (PCR) Coronavirus HKU1 (PCR) Coronavirus 229E (PCR) SARS-CoV-2 (PCR) Coronavirus NL63 (PCR) Human Metapneumovir PCR Influenza Type A (PCR) Influenza Type B (PCR) M. pneumoniae (PCR) Parainfluenza 1 (PCR) Parainfluenza 2 (PCR) Parainfluenza 3 (PCR) Parainfluenza 4 (PCR) RSV (PCR) Entero/Rhino (PCR) 06/03/22 06/03/22 06/03/22 08:30 08:31 08:31 WBC RBC Hgb Hct MCV MCH MCHC RDW Plt Count Neut % (Auto) Lymph % (Auto) [place] % (Auto) Eos % (Auto) Baso % (Auto) Neut # (Auto) Lymph # (Auto) [place] # (Auto) Eos # (Auto) Baso # (Auto) PT INR APTT ABG pH ABG pCO2 ABG pO2 ABG HCO3 ABG Total CO2 ABG O2 Saturation ABG Base Excess FiO2 Sodium Potassium Chloride Carbon Dioxide BUN Creatinine Estimated GFR BUN/Creatinine Ratio Glucose Lactate Calcium Magnesium Total Bilirubin AST ALT Alkaline Phosphatase Total Creatine Kinase CK-MB (CK-2) CK-MB (CK-2) Rel Index Troponin I NT-Pro-B Natriuret Pep Total Protein Albumin Globulin Albumin/Globulin Ratio Procalcitonin TSH 4.61 Urine Color Yellow Urine Appearance Clear Urine pH 5.5 Ur Specific [place] >=1.030 H Urine Protein Trace H Urine Glucose (UA) Negative Urine Ketones Negative Urine Occult Blood Negative Urine Nitrate Negative Urine Bilirubin Negative Urine Urobilinogen 0.2 Ur Leukocyte Esterase Negative Urine RBC None seen Urine WBC None seen Urine Bacteria None seen Ur Culture Indicated? Cult not indicated Micro UA Comment Microscopic normal Chlamy pneumoniae PCR Not detected Adenovirus (PCR) Not detected B. pertussis DNA (PCR) Not detected B.parapertussis DNA PCR Not detected Coronavirus OC43 (PCR) Not detected Coronavirus HKU1 (PCR) Not detected Coronavirus 229E (PCR) Not detected SARS-CoV-2 (PCR) Not detected Coronavirus NL63 (PCR) Not detected Human Metapneumovir PCR Not detected Influenza Type A (PCR) Not detected Influenza Type B (PCR) Not detected M. pneumoniae (PCR) Not detected Parainfluenza 1 (PCR) Not detected Parainfluenza 2 (PCR) Not detected Parainfluenza 3 (PCR) Not detected Parainfluenza 4 (PCR) Not detected RSV (PCR) Not detected Entero/Rhino (PCR) Not detected 06/03/22 09:00 WBC RBC Hgb Hct MCV MCH MCHC RDW Plt Count Neut % (Auto) Lymph % (Auto) [place] % (Auto) Eos % (Auto) Baso % (Auto) Neut # (Auto) Lymph # (Auto) [place] # (Auto) Eos # (Auto) Baso # (Auto) PT INR APTT ABG pH 7.37 ABG pCO2 50.8 H ABG pO2 71 L ABG HCO3 29 H ABG Total CO2 31 H ABG O2 Saturation 93 L ABG Base Excess 4.0 H FiO2 50 Sodium Potassium Chloride Carbon Dioxide BUN Creatinine Estimated GFR BUN/Creatinine Ratio Glucose Lactate Calcium Magnesium Total Bilirubin AST ALT Alkaline Phosphatase Total Creatine Kinase CK-MB (CK-2) CK-MB (CK-2) Rel Index Troponin I NT-Pro-B Natriuret Pep Total Protein Albumin Globulin Albumin/Globulin Ratio Procalcitonin TSH Urine Color Urine Appearance Urine pH Ur Specific [place] Urine Protein Urine Glucose (UA) Urine Ketones Urine Occult Blood Urine Nitrate Urine Bilirubin Urine Urobilinogen Ur Leukocyte Esterase Urine RBC Urine WBC Urine Bacteria Ur Culture Indicated? Micro UA Comment Chlamy pneumoniae PCR Adenovirus (PCR) B. pertussis DNA (PCR) B.parapertussis DNA PCR Coronavirus OC43 (PCR) Coronavirus HKU1 (PCR) Coronavirus 229E (PCR) SARS-CoV-2 (PCR) Coronavirus NL63 (PCR) Human Metapneumovir PCR Influenza Type A (PCR) Influenza Type B (PCR) M. pneumoniae (PCR) Parainfluenza 1 (PCR) Parainfluenza 2 (PCR) Parainfluenza 3 (PCR) Parainfluenza 4 (PCR) RSV (PCR) Entero/Rhino (PCR) Assessment & Plan Assessment & Plan narrative: # acute on chronic hypoxic respiratory failure in setting of asthma and bronchiectasis -normally on 4-5L NC at home, currently requiring bipap -followed outpatient by Dr. Oscar pulmonology at [facility] -etiology likely due to pneumonia -wean O2 as able, may need HFNC once off Bipap -duonebs PRN -continue home singulair # sepsis secondary to right lower lobe pneumonia in setting of CVID -WBC 13.9, febrile to 101.7, chest x-ray with right lower lobe infiltrate -Resp PCR negative -history of previous pseudomonas resistant to quinolones and zosyn and MRSA pneumonia -start cefepime and vanc, give benadryl PRN as pt has pruritis with cefepime -check MRSA screen and if negative consider stopping vanc -f/u sputum and blood cultures # hypomagnesemia -mag 1.4 -2g ordered -monitor and replete PRN # history of PE and A-fib -continue eliquis # DM2 -regular insulin SSI while NPO on bipap -check A1c # RLS -continue home mirapex # neuropathy -continue cymbalta, nortriptyline and lyrica Code status is DNR/DNI. COVID negative. DVT prophylaxis with apixaban. Proxy is has been Harjeet. I have reviewed home meds and used all available resources to reconcile the home meds. This patient will be admitted as inpatient and will require greater than 2 midnights of hospital time to treat hypoxic respiratory failure. I spent a total of 35 minutes of critical care time on this patient's care today; this time is exclusive of procedural time. Time Spent With Patient Critical Care time: I spent a total of [] minutes of critical care time on this patient's care today; this time is exclusive of procedural time.
[2022-06-03] MEDS: NORTRIPTYLINE HCL 25 MG CAPSULE PO (20:18)
[2022-06-03] MEDS: MONTELUKAST 10 MG TABLET PO (20:18)
[2022-06-03] MEDS: ATORVASTATIN 20 MG TABLET 40 MG PO (20:18)
[2022-06-03] MEDS: PRAMIPEXOLE 0.25 MG TABLET 0.5 MG PO (20:18)
[2022-06-04] VITALS (30 sets, daily range): BP systolic 112–151; BP diastolic 55–75; PULSE 69–110; RESP 12–46; TEMP 30–39.3; O2SAT 90–100
[2022-06-04] MEDS: ALBUTEROL/IPRATROPIUM 3 ML AMPUL INH ×8 (00:06→23:00)
[2022-06-04] MEDS: methocarbamoL 500 MG TABLET PO (04:21)
[2022-06-04] MEDS: OXYCODONE IR 5 MG TABLET 10 MG PO ×3 (04:21→14:51)
[2022-06-04 05:44] LABS: Add Manual Diff / Slide Review NO; Basophils Absolute Auto 100 /uL (0-100); Basophils Percent Auto 0.3 % (0-2); Eosinophils Absolute Auto 0 /uL (0-450); Hematocrit 26.3 % (36-46); Hemoglobin 8.6 g/dL (12.0-16.0); Lymphocytes Absolute Auto 1000 /uL (1100-4500); Lymphocytes Percent Auto 6.3 % (25-40); Mean Corpuscular HGB Conc 32.6 % (30-36); Mean Corpuscular Hemoglobin 27.2 PG (26-34); Mean Corpuscular Volume 83.3 fL (80-100); Monocytes Absolute Auto 900 /uL (0-900); Monocytes Percent Auto 5.5 % (3-14); Neutrophils Absolute Auto 13800 /uL (1500-7000); Neutrophils Percent Auto 87.9 % (50-75); Platelet Count 407 X10^3/uL (150-400); Red Blood Cell Count 3.16 X10^6/uL (4.0-5.2); Red Cell Distribution Width 19.9 % (11.6-14.8); White Blood Cell Count 15.7 X10^3/uL (4.5-11.0)
[2022-06-04 05:49] LABS: Magnesium 1.9 mg/dL (1.6-2.3)
[2022-06-04 05:52] LABS: BUN Creatinine Ratio 23.8 (6-22); Blood Urea Nitrogen 19 mg/dL (7-17); Calcium 8.4 mg/dL (8.4-10.2); Carbon Dioxide 28 mmol/L (22-32); Chloride 98 mmol/L (98-107); Estimated Glomerular Filt Rate > 60 mL/min (>60); Glucose 118 mg/dL (80-110); HEMOLYSIS < 15 (0-50); Potassium 4.4 mmol/L (3.4-5.1); Sodium 135 mmol/L (137-145)
[2022-06-04 06:05] LABS: Procalcitonin 0.84 ng/mL (<0.5)
--- NOTE | 2022-06-04 08:40 | P.PN_ITS ---
Subjective Subjective Date Patient Seen: 06/04/22 Interval history: Radha Zavaleta is a 71-year-old female with a history of asthma, bronchiectasis with multiple previous pseumomonal, stenotrophomonas and MRSA pneumonias on chronic azithro, chronic hypoxic resp failure on 5L NC, CVID on q3w IVIG infusions, Afib on Amio/Eliquis, NSTEMI in January 2022, LORENE, DM2, asthma, chronic back pain, hypothyroidism, hypertension and hyperlipidemia who presented with worsening dypsnea and found to have RLL pneumonia. History was initially obtained from as patient is somnolent on bipap. He says he noticed that he O2 sats were decreasing the past few days and she was requiring higher amoun ts of her supplemental O2 to maintain sats. She finally was on 5L NC and satting 85% so EMS called and she was placed on CPAP and given breathing treatment. Today patient is on nasal prong O2 supplement and eager to eat, feeling much better. Not complaining of SOB. Exam Vital Signs (past 8 hours): - 06/04/22 01:00 06/04/22 01:00 06/04/22 02:00 Pulse Rate 72 Respiratory Rate 20 Blood Pressure 124/63 112/57 L Pulse Oximetry 100 Oxygen Delivery Method Oxygen Flow Rate Fraction of Inspired Oxygen 06/04/22 02:00 06/04/22 03:00 06/04/22 03:00 Pulse Rate 72 69 Respiratory Rate 17 32 H Blood Pressure 115/55 L Pulse Oximetry 100 100 Oxygen Delivery Method Oxygen Flow Rate Fraction of Inspired Oxygen 06/04/22 04:00 06/04/22 04:00 06/04/22 04:25 Pulse Rate 81 Respiratory Rate 26 H Blood Pressure 139/65 Pulse Oximetry 97 Oxygen Delivery Method Nasal Cannula Oxygen Flow Rate Fraction of Inspired Oxygen 06/04/22 04:47 06/04/22 05:00 06/04/22 05:00 Pulse Rate 90 Respiratory Rate 43 H Blood Pressure 131/60 Pulse Oximetry 98 90 L Oxygen Delivery Method Nasal Cannula Oxygen Flow Rate 5 Fraction of Inspired Oxygen 06/04/22 03:00 06/04/22 06:00 06/04/22 06:00 Pulse Rate 92 H Respiratory Rate 22 Blood Pressure 134/59 L Pulse Oximetry 99 Oxygen Delivery Method Oxygen Flow Rate Fraction of Inspired Oxygen 62 06/04/22 07:20 06/04/22 08:00 06/04/22 07:00 Pulse Rate 91 H 91 H Respiratory Rate 22 32 H Blood Pressure Pulse Oximetry 99 100 Oxygen Delivery Method Nasal Cannula Nasal Cannula Oxygen Flow Rate 5 Fraction of Inspired Oxygen 06/04/22 08:00 06/04/22 08:02 06/04/22 08:02 Pulse Rate 98 H 98 H Respiratory Rate 32 H 35 H Blood Pressure 118/57 L Pulse Oximetry 92 91 Oxygen Delivery Method Oxygen Flow Rate Fraction of Inspired Oxygen Fraction of Inspired Oxygen 62 Oxygen Delivery Method Nasal Cannula Oxygen Flow Rate 5 Narrative Exam Narrative: GEN:? In NAD breathing well with high RR on O2 supplementation. HEENT: moist mucous membranes, PERRL NECK: trachea midline, no JVD CV: regular rate and rhythm, no murmurs PULM:? Diffuse coarse breath sounds thoughout the lung [place] but adequate air entry. ABD: soft, nontender, nondistended, no organomegaly EXT: warm and well perfused with no edema NEURO:? Alert and oriented, no focal deficits Objective Labs 06/04/22 05:12 06/04/22 05:12 Labs: Laboratory Results - last 24 hr 06/03/22 06/03/22 06/03/22 08:25 08:25 08:25 WBC 13.9 H RBC 3.73 L Hgb 10.1 L Hct 31.5 L MCV 84.5 MCH 27.0 MCHC 31.9 RDW 19.6 H Plt Count 478 H Neut % (Auto) 79.3 H Lymph % (Auto) 14.4 L [place] % (Auto) 5.4 Eos % (Auto) 0.0 L Baso % (Auto) 0.9 Neut # (Auto) 41691 H Lymph # (Auto) 2000 [place] # (Auto) 700 Eos # (Auto) 0 Baso # (Auto) 100 PT 13.2 H INR 1.2 APTT ABG pH ABG pCO2 ABG pO2 ABG HCO3 ABG Total CO2 ABG O2 Saturation ABG Base Excess FiO2 Sodium 138 Potassium 4.2 Chloride 100 Carbon Dioxide 29 BUN 14 Creatinine 0.71 Estimated GFR > 60 BUN/Creatinine Ratio 19.7 Glucose 129 H Lactate Calcium 8.7 Magnesium Total Bilirubin 0.3 AST 21 ALT 17 Alkaline Phosphatase 87 Total Creatine Kinase 39 CK-MB (CK-2) TNP CK-MB (CK-2) Rel Index TNP Troponin I < 0.012 NT-Pro-B Natriuret Pep 915 H Total Protein 7.6 Albumin 3.8 Globulin 3.8 Albumin/Globulin Ratio 1.0 Procalcitonin 0.05 TSH Urine Color Urine Appearance Urine pH Ur Specific [place] Urine Protein Urine Glucose (UA) Urine Ketones Urine Occult Blood Urine Nitrate Urine Bilirubin Urine Urobilinogen Ur Leukocyte Esterase Urine RBC Urine WBC Urine Bacteria Ur Culture Indicated? Micro UA Comment Nasal Screen MRSA (PCR) Chlamy pneumoniae PCR Adenovirus (PCR) B. pertussis DNA (PCR) B.parapertussis DNA PCR Coronavirus OC43 (PCR) Coronavirus HKU1 (PCR) Coronavirus 229E (PCR) SARS-CoV-2 (PCR) Coronavirus NL63 (PCR) Human Metapneumovir PCR Influenza Type A (PCR) Influenza Type B (PCR) M. pneumoniae (PCR) Parainfluenza 1 (PCR) Parainfluenza 2 (PCR) Parainfluenza 3 (PCR) Parainfluenza 4 (PCR) RSV (PCR) Entero/Rhino (PCR) 06/03/22 06/03/22 06/03/22 08:25 08:25 08:30 WBC RBC Hgb Hct MCV MCH MCHC RDW Plt Count Neut % (Auto) Lymph % (Auto) Valley % (Auto) Eos % (Auto) Baso % (Auto) Neut # (Auto) Lymph # (Auto) [place] # (Auto) Eos # (Auto) Baso # (Auto) PT INR APTT 33 ABG pH ABG pCO2 ABG pO2 ABG HCO3 ABG Total CO2 ABG O2 Saturation ABG Base Excess FiO2 Sodium Potassium Chloride Carbon Dioxide BUN Creatinine Estimated GFR BUN/Creatinine Ratio Glucose Lactate 1.1 Calcium Magnesium 1.4 L Total Bilirubin AST ALT Alkaline Phosphatase Total Creatine Kinase CK-MB (CK-2) CK-MB (CK-2) Rel Index Troponin I NT-Pro-B Natriuret Pep Total Protein Albumin Globulin Albumin/Globulin Ratio Procalcitonin TSH Urine Color Urine Appearance Urine pH Ur Specific [place] Urine Protein Urine Glucose (UA) Urine Ketones Urine Occult Blood Urine Nitrate Urine Bilirubin Urine Urobilinogen Ur Leukocyte Esterase Urine RBC Urine WBC Urine Bacteria Ur Culture Indicated? Micro UA Comment Nasal Screen MRSA (PCR) Chlamy pneumoniae PCR Adenovirus (PCR) B. pertussis DNA (PCR) B.parapertussis DNA PCR Coronavirus OC43 (PCR) Coronavirus HKU1 (PCR) Coronavirus 229E (PCR) SARS-CoV-2 (PCR) Coronavirus NL63 (PCR) Human Metapneumovir PCR Influenza Type A (PCR) Influenza Type B (PCR) M. pneumoniae (PCR) Parainfluenza 1 (PCR) Parainfluenza 2 (PCR) Parainfluenza 3 (PCR) Parainfluenza 4 (PCR) RSV (PCR) Entero/Rhino (PCR) 06/03/22 06/03/22 06/03/22 08:30 08:31 08:31 WBC RBC Hgb Hct MCV MCH MCHC RDW Plt Count Neut % (Auto) Lymph % (Auto) Valley % (Auto) Eos % (Auto) Baso % (Auto) Neut # (Auto) Lymph # (Auto) [place] # (Auto) Eos # (Auto) Baso # (Auto) PT INR APTT ABG pH ABG pCO2 ABG pO2 ABG HCO3 ABG Total CO2 ABG O2 Saturation ABG Base Excess FiO2 Sodium Potassium Chloride Carbon Dioxide BUN Creatinine Estimated GFR BUN/Creatinine Ratio Glucose Lactate Calcium Magnesium Total Bilirubin AST ALT Alkaline Phosphatase Total Creatine Kinase CK-MB (CK-2) CK-MB (CK-2) Rel Index Troponin I NT-Pro-B Natriuret Pep Total Protein Albumin Globulin Albumin/Globulin Ratio Procalcitonin TSH 4.61 Urine Color Yellow Urine Appearance Clear Urine pH 5.5 Ur Specific [place] >=1.030 H Urine Protein Trace H Urine Glucose (UA) Negative Urine Ketones Negative Urine Occult Blood Negative Urine Nitrate Negative Urine Bilirubin Negative Urine Urobilinogen 0.2 Ur Leukocyte Esterase Negative Urine RBC None seen Urine WBC None seen Urine Bacteria None seen Ur Culture Indicated? Cult not indicated Micro UA Comment Microscopic normal Nasal Screen MRSA (PCR) Chlamy pneumoniae PCR Not detected Adenovirus (PCR) Not detected B. pertussis DNA (PCR) Not detected B.parapertussis DNA PCR Not detected Coronavirus OC43 (PCR) Not detected Coronavirus HKU1 (PCR) Not detected Coronavirus 229E (PCR) Not detected SARS-CoV-2 (PCR) Not detected Coronavirus NL63 (PCR) Not detected Human Metapneumovir PCR Not detected Influenza Type A (PCR) Not detected Influenza Type B (PCR) Not detected M. pneumoniae (PCR) Not detected Parainfluenza 1 (PCR) Not detected Parainfluenza 2 (PCR) Not detected Parainfluenza 3 (PCR) Not detected Parainfluenza 4 (PCR) Not detected RSV (PCR) Not detected Entero/Rhino (PCR) Not detected 06/03/22 06/03/22 06/04/22 09:00 17:00 05:12 WBC RBC Hgb Hct MCV MCH MCHC RDW Plt Count Neut % (Auto) Lymph % (Auto) [place] % (Auto) Eos % (Auto) Baso % (Auto) Neut # (Auto) Lymph # (Auto) [place] # (Auto) Eos # (Auto) Baso # (Auto) PT INR APTT ABG pH 7.37 ABG pCO2 50.8 H ABG pO2 71 L ABG HCO3 29 H ABG Total CO2 31 H ABG O2 Saturation 93 L ABG Base Excess 4.0 H FiO2 50 Sodium Potassium Chloride Carbon Dioxide BUN Creatinine Estimated GFR BUN/Creatinine Ratio Glucose Lactate Calcium Magnesium 1.9 Total Bilirubin AST ALT Alkaline Phosphatase Total Creatine Kinase CK-MB (CK-2) CK-MB (CK-2) Rel Index Troponin I NT-Pro-B Natriuret Pep Total Protein Albumin Globulin Albumin/Globulin Ratio Procalcitonin TSH Urine Color Urine Appearance Urine pH Ur Specific [place] Urine Protein Urine Glucose (UA) Urine Ketones Urine Occult Blood Urine Nitrate Urine Bilirubin Urine Urobilinogen Ur Leukocyte Esterase Urine RBC Urine WBC Urine Bacteria Ur Culture Indicated? Micro UA Comment Nasal Screen MRSA (PCR) Negative for mrsa Chlamy pneumoniae PCR Adenovirus (PCR) B. pertussis DNA (PCR) B.parapertussis DNA PCR Coronavirus OC43 (PCR) Coronavirus HKU1 (PCR) Coronavirus 229E (PCR) SARS-CoV-2 (PCR) Coronavirus NL63 (PCR) Human Metapneumovir PCR Influenza Type A (PCR) Influenza Type B (PCR) M. pneumoniae (PCR) Parainfluenza 1 (PCR) Parainfluenza 2 (PCR) Parainfluenza 3 (PCR) Parainfluenza 4 (PCR) RSV (PCR) Entero/Rhino (PCR) 06/04/22 06/04/22 05:12 05:12 WBC 15.7 H RBC 3.16 L Hgb 8.6 L Hct 26.3 L MCV 83.3 MCH 27.2 MCHC 32.6 RDW 19.9 H Plt Count 407 H Neut % (Auto) 87.9 H Lymph % (Auto) 6.3 L [place] % (Auto) 5.5 Eos % (Auto) 0.0 L Baso % (Auto) 0.3 Neut # (Auto) 20112 H Lymph # (Auto) 1000 L [place] # (Auto) 900 Eos # (Auto) 0 Baso # (Auto) 100 PT INR APTT ABG pH ABG pCO2 ABG pO2 ABG HCO3 ABG Total CO2 ABG O2 Saturation ABG Base Excess FiO2 Sodium 135 L Potassium 4.4 Chloride 98 Carbon Dioxide 28 BUN 19 H Creatinine 0.80 Estimated GFR > 60 BUN/Creatinine Ratio 23.8 H Glucose 118 H Lactate Calcium 8.4 Magnesium Total Bilirubin AST ALT Alkaline Phosphatase Total Creatine Kinase CK-MB (CK-2) CK-MB (CK-2) Rel Index Troponin I NT-Pro-B Natriuret Pep Total Protein Albumin Globulin Albumin/Globulin Ratio Procalcitonin 0.84 H TSH Urine Color Urine Appearance Urine pH Ur Specific [place] Urine Protein Urine Glucose (UA) Urine Ketones Urine Occult Blood Urine Nitrate Urine Bilirubin Urine Urobilinogen Ur Leukocyte Esterase Urine RBC Urine WBC Urine Bacteria Ur Culture Indicated? Micro UA Comment Nasal Screen MRSA (PCR) Chlamy pneumoniae PCR Adenovirus (PCR) B. pertussis DNA (PCR) B.parapertussis DNA PCR Coronavirus OC43 (PCR) Coronavirus HKU1 (PCR) Coronavirus 229E (PCR) SARS-CoV-2 (PCR) Coronavirus NL63 (PCR) Human Metapneumovir PCR Influenza Type A (PCR) Influenza Type B (PCR) M. pneumoniae (PCR) Parainfluenza 1 (PCR) Parainfluenza 2 (PCR) Parainfluenza 3 (PCR) Parainfluenza 4 (PCR) RSV (PCR) Entero/Rhino (PCR) [facility] Medical History Abnormal chest xray (~1979) Anemia Ankle pain Anticoagulated Asthma (~1959) Bronchiectasis (~2006) Cervical spine disease Chronic back pain Colon polyps (~2016) Degenerative joint disease of spine (~2001) Diabetes mellitus, type II (~2009) Eczema Fibromyalgia Foot pain Hoarseness Hyperlipidemia Hypertension Hypothyroidism Migraines (~1964) 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 Osteopenia Pneumonia Pneumonia Recurrent sinusitis (~1970) Restless leg syndrome Shoulder pain (~03/2018) Sleep apnea Wears glasses Surgical History Anesthesia History of carpal tunnel release History of cataract removal with insertion of prosthetic lens (~2014) History of section History of laminectomy (~2002) History of spinal fusion (~2012) History of thumb surgery Family History Father Stroke Mother Hypertension Brother Cerebral aneurysm Prostate cancer Diabetes mellitus Hypertension Stroke Brother Arthritis Hyperlipidemia Hypertension Sister History of kidney cancer Hypertension Grandfather Cancer Grandmother Cancer Other Family history non-contributory Social History household members: spouse Smoking Status: Never smoker alcohol intake: current Assessment & Plan Assessment & Plan narrative: # acute on chronic hypoxic respiratory failure in setting of asthma and bronchiectasis, settling to chronic resp failure status at patient's baseline -normally on 4-5L NC at home, no longer on BiPaP -followed outpatient by Dr. Oscar pulmonology at [facility] -etiology likely due to pneumonia, RLL pneumonia on chest xray -wean O2 as able, off Bipap, on 5L/min -duonebs PRN -continue home singulair # sepsis secondary to right lower lobe pneumonia in setting of COVID, confirmed negative COVID, confirmed negative blood cultures -WBC 13.9 with increase today to 15.7 likley steroid effect, febrile to 101.7 settled to 97.2 today, chest x-ray with right lower lobe infiltrate -Resp PCR negative -history of previous pseudomonas resistant to quinolones and zosyn and MRSA pneumonia - on cefepime and vanc, give benadryl PRN as pt has pruritis with cefepime -check MRSA screen and if negative consider stopping vanc -f/u sputum and blood cultures, blood cultures negative, sputum culture still pending # hypomagnesemia -mag 1.4, currently 1.9, follow tomorrow to ensure stability -2g ordered initially -monitor and replete PRN # history of PE and A-fib -continue eliquis # DM2 -regular insulin SSI while NPO on bipap, and continue now that beginning to eat -check A1c, will order # RLS -continue home mirapex # neuropathy -continue cymbalta, nortriptyline and lyrica Code status is DNR/DNI. COVID negative. DVT prophylaxis with apixaban. Proxy is has been Harjeet. Time Spent With Patient Critical Care time: I spent a total of [] minutes of critical care time on this patient's care today; this time is exclusive of procedural time.
[2022-06-04] MEDS: LORATADINE 10 MG TABLET PO (09:05)
[2022-06-04] MEDS: APIXABAN 5 MG TABLET PO ×2 (09:05→20:22)
[2022-06-04] MEDS: DULOXETINE 30 MG CAPSULE PO (09:05)
[2022-06-04] MEDS: VANCOMYCIN 1,500 MG/300 ML PIGGYBACK 200 MG IV (09:06)
[2022-06-04] MEDS: PREGABALIN 75 MG CAPSULE 150 MG PO (09:06)
[2022-06-04] MEDS: ACETAMINOPHEN 325 MG TABLET 650 MG PO ×2 (10:20→17:29)
[2022-06-04] MEDS: diphenhydrAMINE 50 MG/ML VIAL 25 MG IV ×2 (10:48→22:36)
[2022-06-04] MEDS: CEFEPIME 2 GM in SODIUM CHLORIDE 0.9% 100 ML IV ×2 (11:31→22:36)
[2022-06-04] MEDS: AZITHROMYCIN 500 MG in DEXTROSE 5% IN WATER 250 ML 250 MG IV (12:10)
--- NOTE | 2022-06-04 12:53 | CM.DANOTE ---
DCP: Assessment, 72 yo female arrived to ED via ambulance with sob, , MANUEL report of pt de-satting into the 80's at home. Pt admitted with noted worsening dyspnea and was found to have RLL pneumonia. This CM met with pt in her room and introduced self and role. Pt states that she lives in [place] with her . She reports that she does not drive and that she has not driven for a year due to being unable to do anything without help once she get's to her destination. Pt confirms that she has a w/c and a walker at home. She confirms that she has [facility], nursing, PT/OT and bath aide and she would like to resume them when she returns home. This CM received a call from radha Tipton RN and stated that pt's reached out to him with regards to learning more about hospice services. This CM will touch base with Hospitalist re. this subject. Plan: Home with with [facility] services. Meghann Rogers RN Case Manager Discharge Planning/Care Management CM Discharge Assessment Start: 06/04/22 12:37 Freq: Status: Active Protocol: Document 06/04/22 12:37 ANABELA (Rec: 06/04/22 12:46 [id number]) Discharge Planning Assessment Assigned Coal Crusher Operator Meghann Rogers RN Case Manager Advance Directives? Yes-POLST Advance Directives on File No History Provided By Patient,Significant Other, Medical Record Has Patient been admitted in last 30 No days? Comment Last admission 04/24 Prior Living Arrangements House Household Members spouse Type of transporation used prior to Relies on Others admit Comment Pt reports that she has not driven for the last year. Due to a decline in her physical condition. Independent with ADL's No: Pt's is her support person at home Is patient alert and oriented? Yes Needs Assistance With Bathing,Meal Prep,Managing Medications,Home Chores / Shopping Caregiver for Another No Community Services used prior to Oxygen Therapy,Home Health Aid admission: ,Home Health Nurse,Wound Care Comment Pt is currently under [facility] at home. DME Already Rented / Owned Bath Bench,Wheelchair,FWW / Walker,Oxygen,Bedside Commode, Nebulizer Comment Has shower chair as well Comment Currently assessing pt needs. Probable to return home with [facility] services resumption. Barriers to Discharge Yes Comment medically and physically fragile. return home w/spouse, who is a retired Orthopedic PA-C Discharge Plan Home with Home Health Transportation Arrangement Spouse bedside and can provide transport home when stable Referrals Initiated None needed Additional Comment Pending PT/OT eval, r/o need or request for HH services Whiteboard Updated in Patient Room with Yes name and ext. # of Coal Crusher Operator Review Status In Process Next Review Type Continued Stay Review
--- NOTE | 2022-06-04 16:43 | PC.NURSE ---
1615 Patient pulled mask off and is satting 72%. [place] Bipap machine alarming. Pt did not call with call light. Found pt at 72%. replaced bipap mask. Asked pt what happened and why she pulled off her mask. She states I thought people were coming in and it was time to get up. Notified Dr. Charles that patient was confused and pulled off mask. 1635 Dr. Charles came to bedside. No new orders received. Notified of patient's temp of 101.1F. Order for repeat Blood cultures.
[2022-06-04] MEDS: INSULIN REGULAR 100 UNIT/ML 3 ML VIAL SUBCUT (17:34)
[2022-06-04] MEDS: PRAMIPEXOLE 0.25 MG TABLET 0.5 MG PO (20:21)
[2022-06-04] MEDS: MONTELUKAST 10 MG TABLET PO (20:21)
[2022-06-04] MEDS: NORTRIPTYLINE HCL 25 MG CAPSULE PO (20:21)
[2022-06-04] MEDS: MELATONIN 3 MG TABLET 6 MG PO (20:22)
[2022-06-04] MEDS: SODIUM CHLORIDE 0.9% FLUSH 10 ML IV (20:22)
[2022-06-04] MEDS: ATORVASTATIN 20 MG TABLET 40 MG PO (20:22)
[2022-06-04] MEDS: INSULIN LISPRO 100 UNIT/ML 3ML VIAL SUBCUT (21:42)
[2022-06-04] MEDS: FUROSEMIDE 40 MG/4 ML VIAL IV (22:35)
[2022-06-04 23:00] LABS: NT-proBNP (BNP-Adult 18+) 1330 pg/mL (<125)
[2022-06-05] VITALS (35 sets, daily range): BP systolic 111–173; BP diastolic 56–89; PULSE 90–164; RESP 12–55; TEMP 30–38.7; O2SAT 92–99
[2022-06-05] MEDS: OXYCODONE IR 5 MG TABLET 10 MG PO ×3 (03:42→22:28)
[2022-06-05] MEDS: ALBUTEROL/IPRATROPIUM 3 ML AMPUL INH ×5 (03:48→23:02)
[2022-06-05 06:09] LABS: HCO3 ABG 25 mmol/L (23-27); Oxygen Saturation ABG 86 % (95-100); PCO2 ABG 38.1 mmHg (35-45); PO2 ABG 51 mmHg (80-100); TCO2 ABG 38 mmol/L (23-27); pH ABG 7.42 (7.35-7.45)
[2022-06-05 06:10] LABS: Fractionated Inspired Oxygen 100
--- NOTE | 2022-06-05 06:16 | PC.NURSE ---
Dolly Operator Note-Patient has intermittent confusion and restlessness, reorients fairly well, did not tolerate Bi-pap, tried using her own C-pap but SpO2 remained under 88%, on 10L NRB and 5L NC most of the night. Neb tx and 40mg IV Lasix given for increased shortness of breath and rhonchi/wheeze throughout lungs.
[2022-06-05 06:51] LABS: Alanine Aminotransferase 14 IU/L (<35); Albumin 3.2 g/dL (3.5-5.0); Alkaline Phosphatase 76 U/L (38-126); Aspartate Aminotransferase 16 IU/L (14-36); BUN Creatinine Ratio 19.7 (6-22); Bilirubin Total 0.5 mg/dL (0.2-1.3); Blood Urea Nitrogen 15 mg/dL (7-17); Calcium 8.2 mg/dL (8.4-10.2); Carbon Dioxide 27 mmol/L (22-32); Chloride 99 mmol/L (98-107); Estimated Glomerular Filt Rate > 60 mL/min (>60); Globulin 3.3 g/dL (1.7-4.1); Glucose 164 mg/dL (80-110); HEMOLYSIS < 15 (0-50); Magnesium 1.5 mg/dL (1.6-2.3); Potassium 3.8 mmol/L (3.4-5.1); Sodium 133 mmol/L (137-145); Total Protein 6.5 g/dL (6.3-8.2)
[2022-06-05 06:55] LABS: Add Manual Diff / Slide Review NO; Basophils Absolute Auto 0 /uL (0-100); Basophils Percent Auto 0.4 % (0-2); Eosinophils Absolute Auto 0 /uL (0-450); Hematocrit 27.2 % (36-46); Hemoglobin 8.7 g/dL (12.0-16.0); Lymphocytes Absolute Auto 900 /uL (1100-4500); Lymphocytes Percent Auto 8.3 % (25-40); Mean Corpuscular HGB Conc 32.1 % (30-36); Mean Corpuscular Hemoglobin 26.7 PG (26-34); Mean Corpuscular Volume 83.2 fL (80-100); Monocytes Absolute Auto 1300 /uL (0-900); Monocytes Percent Auto 11.2 % (3-14); Neutrophils Absolute Auto 9000 /uL (1500-7000); Neutrophils Percent Auto 80.1 % (50-75); Platelet Count 394 X10^3/uL (150-400); Red Blood Cell Count 3.27 X10^6/uL (4.0-5.2); Red Cell Distribution Width 19.6 % (11.6-14.8); White Blood Cell Count 11.3 X10^3/uL (4.5-11.0)
--- NOTE | 2022-06-05 07:59 | PM.PN.1 ---
Subjective Subjective Date Patient Seen: 06/05/22 Interval history: Subjective Subjective Date Patient Seen: 06/05/22 Interval history: Radha Zavaleta is a 71-year-old female with a history of asthma, bronchiectasis with multiple previous pseumomonal, stenotrophomonas and MRSA pneumonias on chronic azithro, chronic hypoxic resp failure on 5L NC, CVID on q3w IVIG infusions, Afib on Amio/Eliquis, NSTEMI in January 2022, LORENE, DM2, asthma, chronic back pain, hypothyroidism, hypertension and hyperlipidemia who presented with worsening dypsnea and found to have RLL pneumonia. History was initially obtained from as patient is somnolent on bipap. He says he noticed that he O2 sats were decreasing the past few days and she was requiring higher amounts of her supplemental O2 to maintain sats. She finally was on 5L NC and satting 85% so EMS called and she was placed on CPAP and given breathing treatment. Patient feels she is progressing. Only on nasal prongs at this time. Still not back to her normal baseline. At 5 liters/minute oxygen supplementation. Temperature still elevated. Exam Vital Signs (past 8 hours): - 06/05/22 00:00 06/05/22 00:09 06/05/22 00:09 Temperature 101.7 F H 101.5 F H Pulse Rate 105 H 104 H Respiratory Rate 30 H 41 H Blood Pressure 139/64 Pulse Oximetry 96 96 Oxygen Delivery Method Oxygen Flow Rate 10 06/05/22 00:00 06/05/22 04:00 06/05/22 04:00 Temperature 100.8 F H Pulse Rate 99 H Respiratory Rate 27 H Blood Pressure 173/79 H Pulse Oximetry 92 Oxygen Delivery Method Non -Rebreather BiPAP Oxygen Flow Rate 5 06/05/22 04:00 06/05/22 04:05 06/05/22 04:05 Temperature 100.8 F H Pulse Rate 99 H Respiratory Rate 27 H Blood Pressure 152/74 H Pulse Oximetry 93 Oxygen Delivery Method Nasal Cannula Oxygen Flow Rate 5 06/05/22 07:26 Temperature Pulse Rate Respiratory Rate Blood Pressure Pulse Oximetry 93 Oxygen Delivery Method Nasal Cannula Oxygen Flow Rate 5 Fraction of Inspired Oxygen 60 Oxygen Delivery Method Nasal Cannula Oxygen Flow Rate 5 Narrative Exam Narrative: GEN:? In NAD breathing well with high RR on O2 supplementation. HEENT: moist mucous membranes, PERRL NECK: trachea midline, no JVD CV: regular rate and rhythm, no murmurs PULM:? Diffuse coarse breath sounds throughout the lung [place] but adequate air entry. Less wheezing than yesterday. ABD: soft, nontender, nondistended, no organomegaly EXT: warm and well perfused with no edema NEURO:? Alert and oriented, no focal deficits Objective Labs 06/05/22 06:12 06/05/22 06:12 Labs: Laboratory Results - last 24 hr 06/04/22 06/04/22 06/05/22 05:12 22:53 06:12 WBC 11.3 H RBC 3.27 L Hgb 8.7 L Hct 27.2 L MCV 83.2 MCH 26.7 MCHC 32.1 RDW 19.6 H Plt Count 394 Neut % (Auto) 80.1 H Lymph % (Auto) 8.[address] % (Auto) 11.2 Eos % (Auto) 0.0 L Baso % (Auto) 0.4 Neut # (Auto) 9000 H Lymph # (Auto) [address] [place] # (Auto) 1300 H Eos # (Auto) 0 Baso # (Auto) 0 ABG pH 7.42 ABG pCO2 38.1 ABG pO2 51 L ABG HCO3 25 ABG Total CO2 38 H ABG O2 Saturation 86 L ABG Base Excess 0.0 FiO2 100 Sodium Potassium Chloride Carbon Dioxide BUN Creatinine Estimated GFR BUN/Creatinine Ratio Glucose Calcium Magnesium Total Bilirubin AST ALT Alkaline Phosphatase NT-Pro-B Natriuret Pep 1330 H Total Protein Albumin Globulin Albumin/Globulin Ratio 06/05/22 06:12 WBC RBC Hgb Hct MCV MCH MCHC RDW Plt Count Neut % (Auto) Lymph % (Auto) [place] % (Auto) Eos % (Auto) Baso % (Auto) Neut # (Auto) Lymph # (Auto) [place] # (Auto) Eos # (Auto) Baso # (Auto) ABG pH ABG pCO2 ABG pO2 ABG HCO3 ABG Total CO2 ABG O2 Saturation ABG Base Excess FiO2 Sodium 133 L Potassium 3.8 Chloride 99 Carbon Dioxide 27 BUN 15 Creatinine 0.76 Estimated GFR > 60 BUN/Creatinine Ratio 19.7 Glucose 164 H Calcium 8.2 L Magnesium 1.5 L Total Bilirubin 0.5 AST 16 ALT 14 Alkaline Phosphatase 76 NT-Pro-B Natriuret Pep Total Protein 6.5 Albumin 3.2 L Globulin 3.3 Albumin/Globulin Ratio 1.0 PFSH Medical History Abnormal chest xray (~1979) Anemia Ankle pain Anticoagulated Asthma (~1959) Bronchiectasis (~2006) Cervical spine disease Chronic back pain Colon polyps (~2015) Degenerative joint disease of spine (~2001) Diabetes mellitus, type II (~2009) Eczema Fibromyalgia Foot pain Hoarseness Hyperlipidemia Hypertension Hypothyroidism Migraines (~1964) 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 Osteopenia Pneumonia Pneumonia Recurrent sinusitis (~1970) Restless leg syndrome Shoulder pain (~03/2018) Sleep apnea Wears glasses Surgical History Anesthesia History of carpal tunnel release History of cataract removal with insertion of prosthetic lens (~2014) History of section History of laminectomy (~2002) History of spinal fusion (~2012) History of thumb surgery Family History Father Stroke Mother Hypertension Brother Cerebral aneurysm Prostate cancer Diabetes mellitus Hypertension Stroke Brother Arthritis Hyperlipidemia Hypertension Sister History of kidney cancer Hypertension Grandfather Cancer Grandmother Cancer Other Family history non-contributory Social History household members: spouse Smoking Status: Never smoker alcohol intake: current Assessment & Plan Assessment & Plan narrative: # acute on chronic hypoxic respiratory failure in setting of asthma and bronchiectasis, settling to chronic resp failure status at patient's baseline -normally on 4-5L NC at home, no longer on BiPaP, on nasal prongs now -followed outpatient by Dr. Oscar pulmonology at [facility] -etiology likely due to pneumonia, RLL pneumonia on chest xray -duonebs PRN -continue home singulair # sepsis secondary to right lower lobe pneumonia in setting of COVID, confirmed negative COVID, confirmed negative blood cultures initially, repeat cultures still pending - still spiking temeratures, as high as 101.7 last night and similar on presentation -WBC 13.9 with increase yesterday to 15.7 likely steroid effect but decreased today to 11.3, chest x-ray with right lower lobe infiltrate -Resp PCR negative -history of previous pseudomonas resistant to quinolones and zosyn and MRSA pneumonia - on cefepime and vanc, give benadryl PRN as pt has pruritis with cefepime -check MRSA screen and if negative consider stopping vanc, is negative but had MRSA pneumonia so will continue vanco -f/u sputum and blood cultures, blood cultures negative, repeat blood cultures till pending, sputum culture still pending # hypomagnesemia -mag 1.4 on presentation needing replacement, currently 1.5, will replace today -2g ordered initially, 2 g ordered for today -monitor and replete PRN # history of PE and A-fib -continue eliquis # DM2 -regular insulin SSI while NPO on bipap, and continue now that beginning to eat -check A1c, is 6.2, so reasonable good control normally # RLS -continue home mirapex # neuropathy -continue cymbalta, nortriptyline and lyrica # Nettie rash - consistent with yeast overgrowth, treat with clotrim/betameth Follow clinically and follow labs. Code status is DNR/DNI. COVID negative. DVT prophylaxis with apixaban. Proxy is has been Harjeet Time Spent With Patient Critical Care time: I spent a total of [] minutes of critical care time on this patient's care today; this time is exclusive of procedural time.
[2022-06-05 08:03] LABS: Hemoglobin A1C% w Est Avg Glu 6.2 % (4.0-6.0)
[2022-06-05] MEDS: PREGABALIN 75 MG CAPSULE 150 MG PO (08:13)
[2022-06-05] MEDS: ACETAMINOPHEN 325 MG TABLET 650 MG PO ×3 (08:14→20:41)
[2022-06-05] MEDS: APIXABAN 5 MG TABLET PO ×2 (08:14→20:41)
[2022-06-05] MEDS: LORATADINE 10 MG TABLET PO (08:14)
[2022-06-05] MEDS: DULOXETINE 30 MG CAPSULE PO (08:14)
[2022-06-05] MEDS: VANCOMYCIN 1,500 MG/300 ML PIGGYBACK 200 MG IV (08:14)
[2022-06-05] MEDS: INSULIN LISPRO 100 UNIT/ML 3ML VIAL SUBCUT ×3 (08:20→17:45)
[2022-06-05] MEDS: SODIUM CHLORIDE 0.9% FLUSH 10 ML IV ×2 (08:21→20:45)
[2022-06-05] MEDS: ALBUTEROL 2.5 MG/3 ML NEB (ADULT) INH (08:38)
[2022-06-05] MEDS: FUROSEMIDE 40 MG/4 ML VIAL IV (09:14)
[2022-06-05] MEDS: MAGNESIUM SULFATE 2 GM/50 ML PIGGYBACK IV (09:15)
[2022-06-05] MEDS: CLOTRIMAZOLE/BETAMETHASONE CRM 15 GM 1 APPLIC TOP ×2 (09:22→20:47)
[2022-06-05] MEDS: diphenhydrAMINE 50 MG/ML VIAL 25 MG IV ×2 (11:03→22:29)
[2022-06-05] MEDS: CEFEPIME 2 GM in SODIUM CHLORIDE 0.9% 100 ML IV ×2 (11:04→22:59)
--- NOTE | 2022-06-05 11:47 | CM.DPC ---
DCP: This CM notified Romina at [facility] that pt is currently admitted to . Meghann Rogers RN Case Manager
[2022-06-05] MEDS: AZITHROMYCIN 500 MG in DEXTROSE 5% IN WATER 250 ML 250 MG IV (12:33)
[2022-06-05] MEDS: fentaNYL 25 MCG/PATCH TOP (18:17)
[2022-06-05 18:41] LABS: BUN Creatinine Ratio 17.9 (6-22); Blood Urea Nitrogen 14 mg/dL (7-17); Calcium 8.3 mg/dL (8.4-10.2); Carbon Dioxide 28 mmol/L (22-32); Chloride 100 mmol/L (98-107); Estimated Glomerular Filt Rate > 60 mL/min (>60); Glucose 179 mg/dL (80-110); HEMOLYSIS < 15 (0-50); Potassium 3.6 mmol/L (3.4-5.1); Sodium 135 mmol/L (137-145)
[2022-06-05] MEDS: BUDESONIDE 0.5 MG/2 ML NEB INH (19:39)
[2022-06-05] MEDS: ATORVASTATIN 20 MG TABLET 40 MG PO (20:43)
[2022-06-05] MEDS: NORTRIPTYLINE HCL 25 MG CAPSULE PO (20:44)
[2022-06-05] MEDS: MONTELUKAST 10 MG TABLET PO (20:44)
[2022-06-05] MEDS: PRAMIPEXOLE 0.25 MG TABLET 0.5 MG PO (20:45)
[2022-06-05] MEDS: MELATONIN 3 MG TABLET 6 MG PO (22:29)
[2022-06-05] MEDS: OXYMETAZOLINE NASAL SPRAY 15 ML 2 SPRAYS NASAL (22:59)
[2022-06-06] VITALS (26 sets, daily range): BP systolic 107–148; BP diastolic 57–93; PULSE 86–110; RESP 12–39; TEMP 37–38.4; O2SAT 85–100
[2022-06-06 04:10] LABS: Add Manual Diff / Slide Review NO; Basophils Absolute Auto 0 /uL (0-100); Basophils Percent Auto 0.3 % (0-2); Eosinophils Absolute Auto 0 /uL (0-450); Hematocrit 25.5 % (36-46); Hemoglobin 8.2 g/dL (12.0-16.0); Lymphocytes Absolute Auto 800 /uL (1100-4500); Lymphocytes Percent Auto 11.1 % (25-40); Mean Corpuscular HGB Conc 32.2 % (30-36); Mean Corpuscular Hemoglobin 26.9 PG (26-34); Mean Corpuscular Volume 83.6 fL (80-100); Monocytes Absolute Auto 1000 /uL (0-900); Neutrophils Absolute Auto 5600 /uL (1500-7000); Neutrophils Percent Auto 75.6 % (50-75); Platelet Count 351 X10^3/uL (150-400); Red Blood Cell Count 3.04 X10^6/uL (4.0-5.2); Red Cell Distribution Width 19.3 % (11.6-14.8); White Blood Cell Count 7.4 X10^3/uL (4.5-11.0)
[2022-06-06 04:26] LABS: Alanine Aminotransferase 13 IU/L (<35); Albumin 2.8 g/dL (3.5-5.0); Albumin Globulin Ratio 0.9 (1.0-2.8); Alkaline Phosphatase 67 U/L (38-126); Aspartate Aminotransferase 19 IU/L (14-36); BUN Creatinine Ratio 19.4 (6-22); Bilirubin Total 0.4 mg/dL (0.2-1.3); Blood Urea Nitrogen 13 mg/dL (7-17); Calcium 8.1 mg/dL (8.4-10.2); Carbon Dioxide 30 mmol/L (22-32); Chloride 100 mmol/L (98-107); Estimated Glomerular Filt Rate > 60 mL/min (>60); Globulin 3.2 g/dL (1.7-4.1); Glucose 151 mg/dL (80-110); HEMOLYSIS < 15 (0-50); Magnesium 1.9 mg/dL (1.6-2.3); Sodium 136 mmol/L (137-145)
[2022-06-06 04:40] LABS: Procalcitonin 0.45 ng/mL (<0.5)
[2022-06-06 04:57] LABS: C-Reactive Protein Quant 22.7 mg/dL (<1.0)
--- NOTE | 2022-06-06 07:44 | DI.RAD.S_ITS ---
PROCEDURE: XR CHEST 1V INDICATIONS: followup pneumonia TECHNIQUE: One view of the chest was acquired. COMPARISON: [facility], CR, XR CHEST 1V, 06/03/2022, 8:27. FINDINGS: Surgical changes and devices: None. Lungs and pleura: Persistent airspace opacity in right mid to lower lung field is seen with interval slight improvement in right lower lung field aeration. There is small amount of right pleural effusion with blunting of right costophrenic angle. No pneumothorax. Mediastinum: Mediastinal contours appear normal. Heart size is enlarged. Bones and chest wall: No suspicious bony lesions. Overlying soft tissues appear unremarkable. IMPRESSION: Suggestion of resolving right lower lobe infiltrate. Trace right pleural effusion. No pneumothorax. Dictated by: Josr Silva M.D. on 06/06/2022 at 8:17 Approved by: Josr Silva M.D. on 06/06/2022 at 8:17
--- NOTE | 2022-06-06 08:27 | PM.PN.1 ---
Subjective Subjective Date Patient Seen: 06/06/22 Interval history: Radha Zavaleta is a 71-year-old female with a history of asthma, bronchiectasis with multiple previous pseumomonal, stenotrophomonas and MRSA pneumonias on chronic azithro, chronic hypoxic resp failure on 5L NC, CVID on q3w IVIG infusions, Afib on Amio/Eliquis, NSTEMI in January 2022, LORENE, DM2, asthma, chronic back pain, hypothyroidism, hypertension and hyperlipidemia who presented with worsening dypsnea and found to have RLL pneumonia. History was initially obtained from as patient is somnolent on bipap. He says he noticed that he O2 sats were decreasing the past few days and she was requiring higher amounts of her supplemental O2 to maintain sats. She finally was on 5L NC and satting 85% so EMS called and she was placed on CPAP and given breathing treatment. Today patient feels significantly better, had a good sleep. No new concerns. Still a bit increased RR but not bothersome for patient. Exam Vital Signs (past 8 hours): - 06/06/22 01:02 06/06/22 02:28 06/06/22 03:48 Temperature 99.5 F 98.6 F Pulse Rate 88 86 Respiratory Rate 18 24 Blood Pressure 124/68 142/69 H Pulse Oximetry 99 100 100 Oxygen Delivery Method Oxygen Flow Rate 7 Fraction of Inspired Oxygen 50 06/06/22 04:00 06/06/22 03:00 Temperature Pulse Rate Respiratory Rate Blood Pressure Pulse Oximetry Oxygen Delivery Method BiPAP Oxygen Flow Rate Fraction of Inspired Oxygen 50 Fraction of Inspired Oxygen 50 Oxygen Delivery Method BiPAP Oxygen Flow Rate 7 Narrative Exam Narrative: GEN:? In NAD breathing well with high RR on O2 supplementation. HEENT: moist mucous membranes, PERRL NECK: trachea midline, no JVD CV: regular rate and rhythm, no murmurs PULM:? Adequate air entry. remaining intermittent wheezing on expiration bilaterally. ABD: soft, nontender, nondistended, no organomegaly EXT: warm and well perfused with no edema NEURO:? Alert and oriented, no focal deficits Objective Labs 06/06/22 03:45 06/06/22 03:45 Labs: Laboratory Results - last 24 hr 06/05/22 06/06/22 06/06/22 18:20 03:45 03:45 WBC 7.4 RBC 3.04 L Hgb 8.2 L Hct 25.5 L MCV 83.6 MCH 26.9 MCHC 32.2 RDW 19.3 H Plt Count 351 Neut % (Auto) 75.6 H Lymph % (Auto) 11.1 L [place] % (Auto) 13.0 Eos % (Auto) 0.0 L Baso % (Auto) 0.3 Neut # (Auto) 5600 Lymph # (Auto) 800 L [place] # (Auto) 1000 H Eos # (Auto) 0 Baso # (Auto) 0 Sodium 135 L 136 L Potassium 3.6 4.0 Chloride 100 100 Carbon Dioxide 28 30 BUN 14 13 Creatinine 0.78 0.67 Estimated GFR > 60 > 60 BUN/Creatinine Ratio 17.9 19.4 Glucose 179 H 151 H Calcium 8.3 L 8.1 L Magnesium 1.9 Total Bilirubin 0.4 AST 19 ALT 13 Alkaline Phosphatase 67 C-Reactive Protein 22.7 H Total Protein 6.0 L Albumin 2.8 L Globulin 3.2 Albumin/Globulin Ratio 0.9 L Procalcitonin 0.45 PFSH Medical History Abnormal chest xray (~1979) Anemia Ankle pain Anticoagulated Asthma (~1959) Bronchiectasis (~2006) Cervical spine disease Chronic back pain Colon polyps (~2015) Degenerative joint disease of spine (~2001) Diabetes mellitus, type II (~2009) Eczema Fibromyalgia Foot pain Hoarseness Hyperlipidemia Hypertension Hypothyroidism Migraines (~1964) 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 Osteopenia Pneumonia Pneumonia Recurrent sinusitis (~1970) Restless leg syndrome Shoulder pain (~03/2018) Sleep apnea Wears glasses Surgical History Anesthesia History of carpal tunnel release History of cataract removal with insertion of prosthetic lens (~2014) History of section History of laminectomy (~2002) History of spinal fusion (~2012) History of thumb surgery Family History Father Stroke Mother Hypertension Brother Cerebral aneurysm Prostate cancer Diabetes mellitus Hypertension Stroke Brother Arthritis Hyperlipidemia Hypertension Sister History of kidney cancer Hypertension Grandfather Cancer Grandmother Cancer Other Family history non-contributory Social History household members: spouse Smoking Status: Never smoker alcohol intake: current Assessment & Plan Assessment & Plan narrative: # acute on chronic hypoxic respiratory failure in setting of asthma and bronchiectasis, settling to chronic resp failure status at patient's baseline -normally on 4-5L NC at home, on BiPaP overnight, transitions to nasal prongs as can during the day -followed outpatient by Dr. Oscar pulmonology at [facility] -etiology likely due to pneumonia, RLL pneumonia on chest xray, improving on today's chest xray, with some minor effusion, sputum + for pseudomonas sensitive to cefipime, discontinue Vancomycin and start daily furosemide 20 mg -duonebs PRN -continue home singulair # sepsis secondary to right lower lobe pneumonia in setting of COVID, confirmed negative COVID, confirmed negative blood cultures initially, repeat cultures remain negative, chest xray improving - still spiking temeratures, as high as 101.7, settle overnight to normal range -WBC 13.9 with increase yesterday to 15.7 likely steroid effect but decreased today to 11.3, chest x-ray with right lower lobe infiltrate improving now. WBC now normal. -Resp PCR negative -history of previous pseudomonas resistant to quinolones and zosyn and MRSA pneumonia, no MRSA on sputum culture so Vanco discontinued. - on cefepime and vanc, give benadryl PRN as pt has pruritis with cefepime -check MRSA screen and if negative consider stopping vanc, is negative but had MRSA pneumonia so will continue vanco. Sputum culture negative for MRSA, so vanco discontinued. # hypomagnesemia -mag 1.4 on presentation needing replacement, yesterday 1.5, replaced -2g ordered initially, 2 g ordered yesterday -today 1.9, follow tomorrow # history of PE and A-fib -continue eliquis # DM2 -regular insulin SSI while NPO on bipap, and continue now that beginning to eat -checked A1c, is 6.2, so reasonable good control normally # RLS -continue home mirapex # neuropathy -continue cymbalta, nortriptyline and lyrica # Nettie rash - consistent with yeast overgrowth, treat with clotrim/betameth Follow clinically and follow labs. Code status is DNR/DNI. COVID negative. DVT prophylaxis with apixaban. Proxy is has been Harjeet Time Spent With Patient Critical Care time: I spent a total of [] minutes of critical care time on this patient's care today; this time is exclusive of procedural time.
[2022-06-06] MEDS: INSULIN LISPRO 100 UNIT/ML 3ML VIAL SUBCUT ×4 (08:49→20:23)
[2022-06-06] MEDS: PREGABALIN 75 MG CAPSULE 150 MG PO (08:54)
[2022-06-06] MEDS: CLOTRIMAZOLE/BETAMETHASONE CRM 15 GM 1 APPLIC TOP ×3 (08:54→20:25)
[2022-06-06] MEDS: DULOXETINE 30 MG CAPSULE PO (08:54)
[2022-06-06] MEDS: APIXABAN 5 MG TABLET PO ×2 (08:54→20:37)
[2022-06-06] MEDS: LORATADINE 10 MG TABLET PO (08:54)
[2022-06-06] MEDS: BUDESONIDE 0.5 MG/2 ML NEB INH ×2 (08:55→22:07)
[2022-06-06] MEDS: SODIUM CHLORIDE 0.9% FLUSH 10 ML IV ×2 (08:55→20:38)
[2022-06-06] MEDS: ALBUTEROL/IPRATROPIUM 3 ML AMPUL INH ×5 (08:55→22:07)
[2022-06-06] MEDS: OXYMETAZOLINE NASAL SPRAY 15 ML 2 SPRAYS NASAL (08:56)
[2022-06-06] MEDS: FUROSEMIDE 20 MG TABLET PO (09:08)
[2022-06-06] MEDS: OXYCODONE IR 5 MG TABLET 10 MG PO ×3 (09:08→20:53)
[2022-06-06] MEDS: NYSTATIN SUSP 500,000 UNIT/5 ML UDC 500000 UNIT PO ×4 (10:19→20:37)
[2022-06-06] MEDS: diphenhydrAMINE 50 MG/ML VIAL 25 MG IV ×2 (10:19→22:15)
[2022-06-06] MEDS: ACETAMINOPHEN 325 MG TABLET 650 MG PO ×2 (10:22→20:44)
[2022-06-06] MEDS: CEFEPIME 2 GM in SODIUM CHLORIDE 0.9% 100 ML IV ×2 (10:43→22:41)
[2022-06-06] MEDS: SENNOSIDES 8.6 MG TABLET PO (15:49)
[2022-06-06] MEDS: NORTRIPTYLINE HCL 25 MG CAPSULE PO (20:37)
[2022-06-06] MEDS: hydrOXYzine pamoate 25 MG CAPSULE 50 MG PO (20:37)
[2022-06-06] MEDS: PRAMIPEXOLE 0.25 MG TABLET 0.5 MG PO (20:37)
[2022-06-06] MEDS: ATORVASTATIN 20 MG TABLET 40 MG PO (20:37)
[2022-06-06] MEDS: MONTELUKAST 10 MG TABLET PO (20:37)
[2022-06-06] MEDS: MELATONIN 3 MG TABLET 6 MG PO (22:15)
[2022-06-07] VITALS (17 sets, daily range): BP systolic 128–144; BP diastolic 60–73; PULSE 84–98; RESP 12–40; TEMP 36–38; O2SAT 85–100
[2022-06-07 04:32] LABS: Alanine Aminotransferase 15 IU/L (<35); Albumin 2.9 g/dL (3.5-5.0); Albumin Globulin Ratio 0.9 (1.0-2.8); Alkaline Phosphatase 72 U/L (38-126); Aspartate Aminotransferase 18 IU/L (14-36); BUN Creatinine Ratio 18.8 (6-22); Bilirubin Total 0.2 mg/dL (0.2-1.3); Blood Urea Nitrogen 13 mg/dL (7-17); Calcium 8.4 mg/dL (8.4-10.2); Carbon Dioxide 29 mmol/L (22-32); Chloride 99 mmol/L (98-107); Estimated Glomerular Filt Rate > 60 mL/min (>60); Globulin 3.2 g/dL (1.7-4.1); Glucose 170 mg/dL (80-110); HEMOLYSIS < 15 (0-50); Magnesium 1.6 mg/dL (1.6-2.3); Sodium 133 mmol/L (137-145); Total Protein 6.1 g/dL (6.3-8.2)
[2022-06-07 04:40] LABS: Add Manual Diff / Slide Review NO; Basophils Absolute Auto 0 /uL (0-100); Basophils Percent Auto 0.3 % (0-2); Eosinophils Absolute Auto 0 /uL (0-450); Hematocrit 26.5 % (36-46); Hemoglobin 8.3 g/dL (12.0-16.0); Lymphocytes Absolute Auto 900 /uL (1100-4500); Lymphocytes Percent Auto 11.9 % (25-40); Mean Corpuscular HGB Conc 31.3 % (30-36); Mean Corpuscular Hemoglobin 26.6 PG (26-34); Mean Corpuscular Volume 84.9 fL (80-100); Monocytes Absolute Auto 1000 /uL (0-900); Monocytes Percent Auto 12.4 % (3-14); NT-proBNP (BNP-Adult 18+) 3390 pg/mL (<125); Neutrophils Absolute Auto 6000 /uL (1500-7000); Neutrophils Percent Auto 75.4 % (50-75); Platelet Count 399 X10^3/uL (150-400); Red Blood Cell Count 3.13 X10^6/uL (4.0-5.2); Red Cell Distribution Width 19.4 % (11.6-14.8)
[2022-06-07] MEDS: ALBUTEROL/IPRATROPIUM 3 ML AMPUL INH ×5 (08:35→23:23)
[2022-06-07] MEDS: BUDESONIDE 0.5 MG/2 ML NEB INH ×2 (08:36→19:25)
[2022-06-07] MEDS: INSULIN LISPRO 100 UNIT/ML 3ML VIAL SUBCUT ×4 (09:08→20:58)
[2022-06-07] MEDS: APIXABAN 5 MG TABLET PO ×2 (09:10→20:57)
[2022-06-07] MEDS: FLUCONAZOLE 100 MG TABLET 150 MG PO (09:10)
[2022-06-07] MEDS: DULOXETINE 30 MG CAPSULE PO (09:10)
[2022-06-07] MEDS: NYSTATIN SUSP 500,000 UNIT/5 ML UDC 500000 UNIT PO ×4 (09:10→20:57)
[2022-06-07] MEDS: AZITHROMYCIN 250 MG TABLET PO (09:10)
[2022-06-07] MEDS: FUROSEMIDE 20 MG/2 ML VIAL IV (09:10)
[2022-06-07] MEDS: PREGABALIN 75 MG CAPSULE 150 MG PO (09:10)
[2022-06-07] MEDS: LORATADINE 10 MG TABLET PO (09:12)
[2022-06-07] MEDS: SODIUM CHLORIDE 0.9% FLUSH 10 ML IV ×2 (09:12→19:45)
[2022-06-07] MEDS: CLOTRIMAZOLE/BETAMETHASONE CRM 15 GM 1 APPLIC TOP ×3 (09:48→20:57)
[2022-06-07] MEDS: CEFEPIME 2 GM in SODIUM CHLORIDE 0.9% 100 ML IV ×2 (11:43→19:44)
[2022-06-07] MEDS: diphenhydrAMINE 50 MG/ML VIAL 25 MG IV ×2 (11:44→19:44)
--- NOTE | 2022-06-07 15:15 | OT.IP.EVAL ---
Current Diagnoses Sepsis, unspecified organism (06/03/22) Type 2 diabetes mellitus without complications (06/03/22) Past Medical History (Last Reviewed 06/03/22 @ 08:35 by Lalitha Gracia DO) Abnormal chest xray (~1979) Anemia Ankle pain Anticoagulated Asthma (~1959) Bronchiectasis (~2006) Cervical spine disease Chronic back pain Colon polyps (~2015) Degenerative joint disease of spine (~2001) Diabetes mellitus, type II (~2009) Eczema Fibromyalgia Foot pain Hoarseness Hyperlipidemia Hypertension Hypothyroidism Migraines (~1964) 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 Osteopenia Pneumonia Pneumonia Recurrent sinusitis (~1970) Restless leg syndrome Shoulder pain (~03/2018) Sleep apnea Wears glasses Surgical History (Last Reviewed 06/03/22 @ 08:35 by Lalitha Gracia DO) Anesthesia History of carpal tunnel release History of cataract removal with insertion of prosthetic lens (~2014) History of section History of laminectomy (~2002) History of spinal fusion (~2012) History of thumb surgery Occupational Therapy Inpatient Evaluation/Re-Eval M1 PT/OT-IP Prior Functional Status Start: 06/07/22 18:37 Freq: NEEDED Status: Active Protocol: Document 06/07/22 16:42 [facility] (Rec: 06/07/22 18:54 [facility] [id number]) Medical Review Prior Functional Status Communication independent Mobility and Gait Use of 4ww or wc at home Activities of Daily Living and IADL's Pt states at times able to do her basic ADL's but needing her to assist and for all IADL needs. 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 2 steps with bilateral grab bars she uses to pull herself up the steps with. Home Environment High Toilet,Walk in Shower, Ramp Home Equipment Front Wheel Walker,Four Wheel Walker,Straight Cane,Manual Wheelchair,Hand Held Shower, Grab Bars Near Toilet,Grab Bars In Shower Additional Social History Comment Pt has an adjustable bed and fold down shower chair M2 OT-IP Current Condition Start: 06/07/22 18:37 Freq: Status: Active Protocol: Document 06/07/22 16:42 [facility] (Rec: 06/07/22 18:54 [facility] [id number]) Occupational Therapy Current Condition Current Condition Evaluation Date 06/07/22 Treatment Diagnosis Acute Chronic hypoxic respiratory failure Diagnosis Onset Date 06/03/22 M3 OT- IP Subjective and Pain Start: 06/07/22 18:37 Freq: Status: Active Protocol: Document 06/07/22 16:42 [facility] (Rec: 06/07/22 18:54 [facility] [id number]) OT- Subjective Occupational Therapy Visit Type Type Initial Evaluation Visit Start Time 14:42 Visit Stop Time 15:15 Total Visit Minutes 33 Occupational Therapy Visit Comments Patient Comments Pt agreed to try to get up. Patient/Caregiver Goals To go home. OT Pain Assessment Pain When Pain Assessed At Rest Pain Present Pain Present Denied Pain M4 OT- IP ADL's Start: 06/07/22 18:37 Freq: Status: Active Protocol: Document 06/07/22 16:42 [facility] (Rec: 06/07/22 18:54 [facility] [id number]) OT [id number] Comments OT Self-Feeding Comments No issues anticipated. OT ADL-Grooming Comments OT Grooming Comments Not performed OT ADL-Oral Care Comments Oral Care Comments Not performed OT ADL-Dressing General Eval Lower Body Dressing Ability Maximum Assistance Areas Needing Assistance Socks Comments OT Dressing Comments Pt states at home mainly wears night gowns and pads/briefs. OT ADL-Toileting General Evaluation Toileting Ability Total Assistance Areas Needing Assistance Empty Catheter or Colostomy Comments OT Toileting Comments Pt not having to go and sellers in place. OT ADL-Bathing Comments OT Bathing Comments Sponge bath more appropriate at this time. M5 OT- IP IADL's Start: 06/07/22 18:37 Freq: Status: Active Protocol: Document 06/07/22 16:42 [facility] (Rec: 06/07/22 18:54 [facility] [id number]) OT-Instrumental Activities of Daily Living Deficits IADL Deficits Identified Deficits Home Safety Awareness Awareness of Need for Assistance at Home Good Awareness Ability to Problem Solve Emergency Able to Problem Solve Situations Home Safety Comments Pt's assist pt for all needs. M6 OT- IP Functional Cognition Start: 06/07/22 18:37 Freq: Status: Active Protocol: Document 06/07/22 16:42 [facility] (Rec: 06/07/22 18:54 [facility] [id number]) Cognitive Factors Limiting Selfcare Function Cognitive Ability Level of Alertness Alert Patient Orientation Name,Place,Situation Attention Span Ability Capable of Focused Attention, Capable of Sustained Attention Ability to Follow Commands Able to Follow One Step Commands Cognitive Comments Cognitive Assessment Comments Pt able to follow commands for mobility needs after initial encouragement to try to get up . OT- Vision and Hearing OT- Hearing Assessment OT- Hearing Assessment WFL OT- Vision Assessment Visual Acuity Glasses All The Time M7 OT- IP Mobility and Balance Start: 06/07/22 18:37 Freq: Status: Active Protocol: Document 06/07/22 16:42 [facility] (Rec: 06/07/22 18:54 [facility] [id number]) OT- Bed Mobility Assessment Supine to Sit Supine to Sit Assist Moderate Assistance OT-Transfer Assessment Comments Mobility Comments Pt having to have the HOB up and able to use bed rail and therapist to help come to partial sitting as O2 decreased to 81% and after resting and o2 back up to 96% able to get most of the way upright and O2 dropped to 91% and able to recover after a couple minutes to 93% on 5L. OT- Balance Assessment Sitting Balance and Reactions Static Sitting Balance Ability Fair M8 OT- IP Objective Assessments Start: 06/07/22 18:37 Freq: Status: Active Protocol: Document 06/07/22 16:42 [facility] (Rec: 06/07/22 18:54 [facility] [id number]) OT Gross Range of Motion Upper Extremity Range of Motion Assessment Left Impaired ROM Impairments Pt states has issues with her left shoulder and depends on her right arm mostly now. OT-Muscle Tone Assessment Muscle Tone WNL Yes M9 OT- IP Assessment and Plan Start: 06/07/22 18:37 Freq: Status: Active Protocol: Document 06/07/22 16:42 [facility] (Rec: 06/07/22 18:54 [facility] [id number]) OT Summary Assessment and Plan Potential Rehabilitation Potential Good Analytic Complexity at Evaluation Moderate Summary OT Impairments Balance,Functional Mobility, Grooming,Dressing,Toileting, Bathing,Toilet Transfers, Shower Transfers,Activity Tolerance Progress Towards Goals Slow Progress due to Medical Issues,Slow Progress due to Activity Tolerance Assessment Summary Pt MOD complexity and main barrier are steps, decreased activity tolerance and O2 on 5L decreased from 96% to 71% when trying to get to the edge of the bed. Pt has a supportive who is a retired PA and very capable to assist the pt. Pt to go home with 24/7 assist and home health when medically stable. Goals Grooming Goal Independent Dressing Goal Minimal Assistance Toileting Goal Moderate Assistance Bathing Goal Moderate Assistance Toilet Transfer Goal Standby Assistance Shower Transfer Goal Contact Guard Assistance Days to Meet Goals 15 Frequency of Treatment Frequency Of Treatment Once a Day Treatment Plan OT Treatment Plan ADL Training,Functional Mobility,Patient/Family Education,Discharge Planning Other Treatment Recommendations and Next Transfer to [facility] with MODA X1 Treatment Focus Discharge Recommendations OT Discharge Recommendations Home with 24/7 Assist Available,Home Health Transportation Needs at Discharge Private Vehicle
--- NOTE | 2022-06-07 16:44 | P.PN_ITS ---
Subjective Subjective Date Patient Seen: 06/07/22 Interval history: Radha Zavaleta is a 71-year-old female with a history of asthma, bronchiectasis with multiple previous pseumomonal, stenotrophomonas and MRSA pneumonias on chronic azithro, chronic hypoxic resp failure on 5L NC, CVID on q3w IVIG infusions, Afib on Amio/Eliquis, NSTEMI in January 2022, LORENE, DM2, asthma, chronic back pain, hypothyroidism, hypertension and hyperlipidemia who presented with worsening dypsnea and found to have RLL pneumonia. Cultures positive for pseudomonas. Today patient feels significantly better. Her breathing is improved. She was on about 10L of O2 this morning but saturating in the upper 90s. Decreased to 6L with O2 saturations in the mid 90s. Goal O2 saturations are 89-96% with her hx of bronchiectasis. Cefepime was increased to 2g q8. Exam Vital Signs (past 8 hours): - 06/07/22 09:02 06/07/22 11:45 06/07/22 08:51 Temperature Pulse Rate 92 H 92 H Respiratory Rate 22 24 Blood Pressure 130/65 Pulse Oximetry 96 96 Oxygen Delivery Method High Flow Nasal Cannula High Flow Nasal Cannula Oxygen Flow Rate 10 6 06/07/22 08:51 06/07/22 12:39 06/07/22 12:39 Temperature 98.8 F 99.1 F Pulse Rate 90 97 H Respiratory Rate 33 H 25 H Blood Pressure 144/65 H Pulse Oximetry 98 95 Oxygen Delivery Method Oxygen Flow Rate 06/07/22 13:13 06/07/22 15:53 Temperature 99.3 F Pulse Rate 93 H Respiratory Rate 39 H Blood Pressure Pulse Oximetry 90 L 98 Oxygen Delivery Method High Flow Nasal Cannula Oxygen Flow Rate 6 Fraction of Inspired Oxygen 45 Oxygen Delivery Method High Flow Nasal Cannula Oxygen Flow Rate 6 Narrative Exam Narrative: GEN:? In NAD breathing well with high RR on O2 supplementation. HEENT: moist mucous membranes, PERRL NECK: trachea midline, no JVD CV: regular rate and rhythm, no murmurs PULM:? Adequate air entry. remaining intermittent wheezing on expiration bilaterally. ABD: soft, nontender, nondistended, no organomegaly EXT: warm and well perfused with no edema NEURO:? Alert and oriented, no focal deficits Objective Labs 06/07/22 03:50 06/07/22 03:50 Labs: Laboratory Results - last 24 hr 06/07/22 06/07/22 03:50 03:50 WBC 8.0 RBC 3.13 L Hgb 8.3 L Hct 26.5 L MCV 84.9 MCH 26.6 MCHC 31.3 RDW 19.4 H Plt Count 399 Neut % (Auto) 75.4 H Lymph % (Auto) 11.9 L [place] % (Auto) 12.4 Eos % (Auto) 0.0 L Baso % (Auto) 0.3 Neut # (Auto) 6000 Lymph # (Auto) 900 L [place] # (Auto) 1000 H Eos # (Auto) 0 Baso # (Auto) 0 Sodium 133 L Potassium 4.0 Chloride 99 Carbon Dioxide 29 BUN 13 Creatinine 0.69 Estimated GFR > 60 BUN/Creatinine Ratio 18.8 Glucose 170 H Calcium 8.4 Magnesium 1.6 Total Bilirubin 0.2 AST 18 ALT 15 Alkaline Phosphatase 72 NT-Pro-B Natriuret Pep 3390 H Total Protein 6.1 L Albumin 2.9 L Globulin 3.2 Albumin/Globulin Ratio 0.9 L PFSH Medical History Abnormal chest xray (~1979) Anemia Ankle pain Anticoagulated Asthma (~1959) Bronchiectasis (~2006) Cervical spine disease Chronic back pain Colon polyps (~2015) Degenerative joint disease of spine (~2001) Diabetes mellitus, type II (~2009) Eczema Fibromyalgia Foot pain Hoarseness Hyperlipidemia Hypertension Hypothyroidism Migraines (~1964) 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 Osteopenia Pneumonia Pneumonia Recurrent sinusitis (~1970) Restless leg syndrome Shoulder pain (~03/2018) Sleep apnea Wears glasses Surgical History Anesthesia History of carpal tunnel release History of cataract removal with insertion of prosthetic lens (~2014) History of section History of laminectomy (~2002) History of spinal fusion (~2012) History of thumb surgery Family History Father Stroke Mother Hypertension Brother Cerebral aneurysm Prostate cancer Diabetes mellitus Hypertension Stroke Brother Arthritis Hyperlipidemia Hypertension Sister History of kidney cancer Hypertension Grandfather Cancer Grandmother Cancer Other Family history non-contributory Social History household members: spouse Smoking Status: Never smoker alcohol intake: current Assessment & Plan Assessment & Plan narrative: # acute on chronic hypoxic respiratory failure in setting of asthma and bronchiectasis, pseudomonas pneumonia, possible diastolic heart failure -normally on 4-5L NC at home, on BiPaP overnight, transitions to nasal prongs as can during the day -followed outpatient by Dr. Oscar pulmonology at [facility] -etiology likely due to pneumonia, RLL pneumonia on chest xray, improving on today's chest xray, with some minor effusion, sputum + for pseudomonas sensitive to cefipime, discontinue Vancomycin and start daily furosemide 20 mg -duonebs PRN -continue home singulair -continue minimal diuresis with 20mg IV lasix daily, does seem to be helping slightly. # sepsis secondary to right lower lobe pneumonia due to pseudomonal pneumonia. - increased cefepime to 2g q8 hours from q12 given normal renal function to cover for pseudomonas noted on sputum cultures. - senstive to cipro on sensativities, but will continue IV therapy with cefepime for now - sputum culture also with yeast, on diflucan for vaginal yeast prevention with antibiotic therapy, may suffice for therapy. # hypomagnesemia -mag 1.4 on presentation needing replacement, yesterday 1.5, replaced -2g ordered initially, 2 g ordered yesterday -today 1.9, follow tomorrow # history of PE and A-fib, with acute possibly on chronic diastolic heart failure -continue eliquis -TTE last admission with normal EF, borderling RV function. # DM2 -regular insulin SSI while NPO on bipap, and continue now that beginning to eat -checked A1c, is 6.2, so reasonable good control normally # RLS -continue home mirapex # neuropathy -continue cymbalta, nortriptyline and lyrica # Nettie rash - consistent with yeast overgrowth, treat with clotrim/betameth Follow clinically and follow labs. Code status is DNR/DNI. COVID negative. DVT prophylaxis with apixaban. Proxy is has been Harjeet Time Spent With Patient Critical Care time: I spent a total of [] minutes of critical care time on this patient's care today; this time is exclusive of procedural time.
[2022-06-07] MEDS: OXYCODONE IR 5 MG TABLET 10 MG PO (17:25)
[2022-06-07] MEDS: methocarbamoL 500 MG TABLET PO (17:26)
--- NOTE | 2022-06-07 17:36 | PT-IP ANOTE ---
Pt got to EOB with OT, O2 SAT dropped to 71%, not appropriate for PT eval at this time, check again tomorrow.
[2022-06-07] MEDS: MELATONIN 3 MG TABLET 6 MG PO (20:57)
[2022-06-07] MEDS: NORTRIPTYLINE HCL 25 MG CAPSULE PO (20:57)
[2022-06-07] MEDS: SENNOSIDES 8.6 MG TABLET PO (20:57)
[2022-06-07] MEDS: ATORVASTATIN 20 MG TABLET 40 MG PO (20:57)
[2022-06-07] MEDS: MONTELUKAST 10 MG TABLET PO (20:57)
[2022-06-07] MEDS: PRAMIPEXOLE 0.25 MG TABLET 0.5 MG PO (20:57)
[2022-06-08] VITALS (11 sets, daily range): BP systolic 137–168; BP diastolic 67–89; PULSE 86–98; RESP 20–30; TEMP 36.7–37.3; O2SAT 91–98
[2022-06-08] MEDS: LORazepam 0.5 MG TABLET PO (00:14)
[2022-06-08] MEDS: diphenhydrAMINE 50 MG/ML VIAL 25 MG IV ×3 (03:08→20:04)
[2022-06-08] MEDS: CEFEPIME 2 GM in SODIUM CHLORIDE 0.9% 100 ML IV ×3 (03:08→20:05)
--- NOTE | 2022-06-08 06:13 | PC.NURSE ---
Wood Scaler Note-Patient tried to use her own C-pap with 5-6L O2 bleed-in, SpO2 86% average while asleep, Bi-pap placed on at 45%, 03/21, medicated with PO Ativan to tolerate it. Benadryl given prior to each dose of Cefepime.
[2022-06-08] MEDS: ALBUTEROL/IPRATROPIUM 3 ML AMPUL INH ×4 (08:25→19:23)
[2022-06-08] MEDS: BUDESONIDE 0.5 MG/2 ML NEB INH ×2 (08:27→19:23)
[2022-06-08] MEDS: INSULIN LISPRO 100 UNIT/ML 3ML VIAL SUBCUT ×3 (08:45→21:58)
[2022-06-08] MEDS: DULOXETINE 30 MG CAPSULE PO (09:09)
[2022-06-08] MEDS: PREGABALIN 75 MG CAPSULE 150 MG PO (09:09)
[2022-06-08] MEDS: APIXABAN 5 MG TABLET PO ×2 (09:09→20:25)
[2022-06-08] MEDS: LORATADINE 10 MG TABLET PO (09:09)
[2022-06-08] MEDS: methocarbamoL 500 MG TABLET PO (09:10)
[2022-06-08] MEDS: OXYCODONE IR 5 MG TABLET 10 MG PO ×2 (09:10→20:24)
[2022-06-08] MEDS: FLUCONAZOLE 100 MG TABLET 150 MG PO (09:11)
[2022-06-08] MEDS: FUROSEMIDE 20 MG/2 ML VIAL IV (09:16)
[2022-06-08] MEDS: CLOTRIMAZOLE/BETAMETHASONE CRM 15 GM 1 APPLIC TOP ×4 (09:38→20:26)
[2022-06-08] MEDS: SODIUM CHLORIDE 0.9% FLUSH 10 ML IV ×2 (10:17→20:05)
[2022-06-08] MEDS: NYSTATIN SUSP 500,000 UNIT/5 ML UDC 500000 UNIT PO ×4 (10:18→20:25)
--- NOTE | 2022-06-08 14:31 | PT-OP ANOTE ---
Patient got up to chair with nursing assistance, she reports it went well using walker. Just got IV benadryl and feeling to drowsy to participate in PT.
--- NOTE | 2022-06-08 15:15 | OT.IPNOTE ---
Pt states too tired and just wanting to sit up in the recliner for now and having nursing staff assist her later to the bathroom. To check on pt tomorrow for OT.
--- NOTE | 2022-06-08 16:49 | P.PN_ITS ---
Subjective Subjective Date Patient Seen: 06/08/22 Interval history: Radha Zavaleta is a 71-year-old female with a history of asthma, bronchiectasis with multiple previous pseumomonal, stenotrophomonas and MRSA pneumonias on chronic azithro, chronic hypoxic resp failure on 4-5L NC, CVID with IVIG therapy, Afib on Amio/Eliquis, NSTEMI in January 2022, LORENE, DM2, asthma, chronic back pain, hypothyroidism, hypertension and hyperlipidemia who presented with worsening dypsnea and found to have RLL pneumonia. Cultures positive for pseudomonas. Today patient feels significantly better. Her breathing is improved. She is now around 4L of O2 at rest, but had significant desaturations with activity to the mid 70s that improved with time. Exam Vital Signs (past 8 hours): - 06/08/22 12:05 06/08/22 12:00 06/08/22 15:30 Temperature 98.6 F Pulse Rate 92 H 91 H 98 H Respiratory Rate 24 27 H 22 Blood Pressure 143/67 H Pulse Oximetry 95 91 96 Oxygen Delivery Method High Flow Nasal Cannula High Flow Nasal Cannula Oxygen Flow Rate 4 4 4 Fraction of Inspired Oxygen 45 Oxygen Delivery Method High Flow Nasal Cannula Oxygen Flow Rate 4 Narrative Exam Narrative: GEN:? obese female, no acute distress. HEENT: moist mucous membranes, PERRL NECK: trachea midline, no JVD CV: regular rate and rhythm, no murmurs PULM:?CTA b/l, ABD: soft, nontender, nondistended, no organomegaly EXT: warm and well perfused with no edema NEURO:? Alert and oriented, no focal deficits Objective Labs 06/07/22 03:50 06/07/22 03:50 [facility] Medical History Abnormal chest xray (~1979) Anemia Ankle pain Anticoagulated Asthma (~1959) Bronchiectasis (~2006) Cervical spine disease Chronic back pain Colon polyps (~2015) Degenerative joint disease of spine (~2001) Diabetes mellitus, type II (~2009) Eczema Fibromyalgia Foot pain Hoarseness Hyperlipidemia Hypertension Hypothyroidism Migraines (~1964) 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 Osteopenia Pneumonia Pneumonia Recurrent sinusitis (~1970) Restless leg syndrome Shoulder pain (~03/2018) Sleep apnea Wears glasses Surgical History Anesthesia History of carpal tunnel release History of cataract removal with insertion of prosthetic lens (~2014) History of section History of laminectomy (~2002) History of spinal fusion (~2012) History of thumb surgery Family History Father Stroke Mother Hypertension Brother Cerebral aneurysm Prostate cancer Diabetes mellitus Hypertension Stroke Brother Arthritis Hyperlipidemia Hypertension Sister History of kidney cancer Hypertension Grandfather Cancer Grandmother Cancer Other Family history non-contributory Social History household members: spouse Smoking Status: Never smoker alcohol intake: current Assessment & Plan Assessment & Plan narrative: # acute on chronic hypoxic respiratory failure in setting of asthma and bronchiectasis, pseudomonas pneumonia, possible diastolic heart failure -normally on 4-5L NC at home, on BiPaP overnight -followed outpatient by Dr. Oscar pulmonology at [facility] -etiology likely due to pneumonia, RLL pneumonia on chest xray, improving on today's chest xray, with some minor effusion, sputum + for pseudomonas sensitive to cefipime, discontinued Vancomycin and started daily furosemide 20 mg -duonebs PRN -continue home singulair -continue minimal diuresis with 20mg IV lasix daily, does seem to be helping slightly though also receiving antibiotics. # sepsis secondary to right lower lobe pneumonia due to pseudomonal pneumonia. - increased cefepime to 2g q8 hours from q12 given normal renal function to cover for pseudomonas noted on sputum cultures. - senstive to cipro on sensativities, but will continue IV therapy with cefepime for now but can discharge on oral ciprofloxacin. - sputum culture also with yeast, on diflucan for vaginal yeast prevention with antibiotic therapy, may suffice for therapy. # hypomagnesemia -mag 1.4 on presentation needing replacement, yesterday 1.5, replaced -2g ordered initially, 2 g ordered yesterday -today 1.9, follow tomorrow # history of PE and A-fib, with acute possibly on chronic diastolic heart failure -continue eliquis -TTE last admission with normal EF, borderling RV function. -diuresing as noted above with slight improvement. # DM2 -regular insulin SSI while NPO on bipap, and continue now that beginning to eat -checked A1c, is 6.2, so reasonable good control normally # RLS -continue home mirapex # neuropathy -continue cymbalta, nortriptyline and lyrica # Nettie rash - consistent with yeast overgrowth, treat with clotrim/betameth Follow clinically and follow labs. Code status is DNR/DNI. COVID negative. DVT prophylaxis with apixaban. Proxy is Harjeet Time Spent With Patient Critical Care time: I spent a total of [] minutes of critical care time on this patient's care today; this time is exclusive of procedural time.
[2022-06-08] MEDS: ACETAMINOPHEN 325 MG TABLET 650 MG PO (20:04)
[2022-06-08] MEDS: NORTRIPTYLINE HCL 25 MG CAPSULE PO (20:24)
[2022-06-08] MEDS: PRAMIPEXOLE 0.25 MG TABLET 0.5 MG PO (20:24)
[2022-06-08] MEDS: MELATONIN 3 MG TABLET 6 MG PO (20:25)
[2022-06-08] MEDS: ATORVASTATIN 20 MG TABLET 40 MG PO (20:25)
[2022-06-08] MEDS: SENNOSIDES 8.6 MG TABLET PO (20:25)
[2022-06-08] MEDS: fentaNYL 25 MCG/PATCH TOP (21:39)
[2022-06-09] VITALS (10 sets, daily range): BP systolic 142–168; BP diastolic 63–83; PULSE 87–95; RESP 15–20; TEMP 36.5–36.9; O2SAT 90–97
[2022-06-09] MEDS: diphenhydrAMINE 50 MG/ML VIAL 25 MG IV (03:08)
[2022-06-09] MEDS: CEFEPIME 2 GM in SODIUM CHLORIDE 0.9% 100 ML IV (03:08)
[2022-06-09 05:16] LABS: Add Manual Diff / Slide Review NO; Basophils Absolute Auto 100 /uL (0-100); Basophils Percent Auto 0.9 % (0-2); Eosinophils Absolute Auto 0 /uL (0-450); Eosinophils Percent Auto 0.1 % (2-4); Hematocrit 29.6 % (36-46); Hemoglobin 9.5 g/dL (12.0-16.0); Lymphocytes Absolute Auto 1600 /uL (1100-4500); Lymphocytes Percent Auto 16.8 % (25-40); Mean Corpuscular Hemoglobin 26.5 PG (26-34); Mean Corpuscular Volume 82.8 fL (80-100); Monocytes Absolute Auto 900 /uL (0-900); Monocytes Percent Auto 9.9 % (3-14); Neutrophils Absolute Auto 6700 /uL (1500-7000); Neutrophils Percent Auto 72.3 % (50-75); Platelet Count 539 X10^3/uL (150-400); Red Blood Cell Count 3.57 X10^6/uL (4.0-5.2); Red Cell Distribution Width 19.2 % (11.6-14.8); White Blood Cell Count 9.3 X10^3/uL (4.5-11.0)
[2022-06-09 05:33] LABS: BUN Creatinine Ratio 16.9 (6-22); Blood Urea Nitrogen 12 mg/dL (7-17); Calcium 8.8 mg/dL (8.4-10.2); Carbon Dioxide 32 mmol/L (22-32); Chloride 97 mmol/L (98-107); Estimated Glomerular Filt Rate > 60 mL/min (>60); Glucose 194 mg/dL (80-110); HEMOLYSIS < 15 (0-50); Magnesium 1.6 mg/dL (1.6-2.3); Potassium 3.9 mmol/L (3.4-5.1); Sodium 136 mmol/L (137-145)
--- NOTE | 2022-06-09 06:28 | PC.NURSE ---
Patient slept throughout the night on 4L HFNC, SpO2 >95% RR 20s, minimal wheezing, no apnea noted.
[2022-06-09] MEDS: BUDESONIDE 0.5 MG/2 ML NEB INH ×2 (08:42→19:23)
[2022-06-09] MEDS: ALBUTEROL/IPRATROPIUM 3 ML AMPUL INH ×5 (08:42→22:28)
[2022-06-09] MEDS: OXYCODONE IR 5 MG TABLET 10 MG PO (10:15)
--- NOTE | 2022-06-09 10:32 | OT.IP.TRT ---
Current Diagnoses Sepsis, unspecified organism (06/03/22) Type 2 diabetes mellitus without complications (06/03/22) Occupational Therapy Treatment Note M2 OT-IP Current Condition Start: 06/07/22 18:37 Freq: Status: Active Protocol: Document 06/07/22 16:42 [facility] (Rec: 06/07/22 18:54 [facility] [id number]) Occupational Therapy Current Condition Current Condition Evaluation Date 06/07/22 Treatment Diagnosis Acute Chronic hypoxic respiratory failure Diagnosis Onset Date 06/03/22 M3 OT- IP Subjective and Pain Start: 06/07/22 18:37 Freq: Status: Active Protocol: Document 06/09/22 09:38 [facility] (Rec: 06/09/22 09:44 [facility] [id number]) OT- Subjective Occupational Therapy Visit Type Type Initial Evaluation Visit Start Time 09:00 Visit Stop Time 09:38 Total Visit Minutes 38 Occupational Therapy Visit Comments Patient Comments Pt agreed to get up to the recliner. Patient/Caregiver Goals TO go home. OT Pain Assessment Pain When Pain Assessed At Rest Pain Present Pain Present Pain Reported M5 OT- IP IADL's Start: 06/07/22 18:37 Freq: Status: Active Protocol: Document 06/07/22 16:42 [facility] (Rec: 06/07/22 18:54 [facility] [id number]) OT-Instrumental Activities of Daily Living Deficits IADL Deficits Identified Deficits Home Safety Awareness Awareness of Need for Assistance at Home Good Awareness Ability to Problem Solve Emergency Able to Problem Solve Situations Home Safety Comments Pt's assist pt for all needs. M6 OT- IP Functional Cognition Start: 06/07/22 18:37 Freq: Status: Active Protocol: Document 06/09/22 09:38 [facility] (Rec: 06/09/22 09:44 [facility] [id number]) Cognitive Factors Limiting Selfcare Function Cognitive Ability Level of Alertness Alert,Confusional State Patient Orientation Name Attention Span Ability Capable of Focused Attention, Capable of Sustained Attention Ability to Follow Commands Able to Follow One Step Commands with Increased Time, Able to Follow One Step Commands with Repetition Cognitive Comments Cognitive Assessment Comments Pt needing more cues to be able to follow directions and seems a little more confused, did not realize that she was wearing a brief or had the Purewick in place. M7 OT- IP Mobility and Balance Start: 06/07/22 18:37 Freq: Status: Active Protocol: Document 06/09/22 09:38 [facility] (Rec: 06/09/22 09:44 [facility] [id number]) OT- Bed Mobility Assessment Supine to Sit Supine to Sit Assist Standby Assistance OT-Transfer Assessment Sit to and From Stand Sit to and from Stand Minimal Assistance Transfers Transfer Ability Minimal Assistance Comments Mobility Comments Increased time for bed mobility and had the bed tilted so pt able to get her feet on the floor. O2 on 3.5 L and 96% and dropped to 81% during bed mobility needs and increased to 90% after 20 seconds. Pt able to transfer and come stand with FWW with ARSALAN x1. OT- Balance Assessment Sitting Balance and Reactions Static Sitting Balance Ability Good Dynamic Sitting Balance Ability Fair Standing Balance and Reactions Static Standing Balance Ability Fair M8 OT- IP Objective Assessments Start: 06/07/22 18:37 Freq: Status: Active Protocol: Document 06/07/22 16:42 [facility] (Rec: 06/07/22 18:54 [facility] [id number]) OT Gross Range of Motion Upper Extremity Range of Motion Assessment Left Impaired ROM Impairments Pt states has issues with her left shoulder and depends on her right arm mostly now. OT-Muscle Tone Assessment Muscle Tone WNL Yes M9 OT- IP Assessment and Plan Start: 06/07/22 18:37 Freq: Status: Active Protocol: Document 06/09/22 09:38 [facility] (Rec: 06/09/22 09:44 [facility] [id number]) OT Summary Assessment and Plan Potential Rehabilitation Potential Good Analytic Complexity at Evaluation Moderate Summary OT Impairments Balance,Functional Mobility, Grooming,Dressing,Toileting, Bathing,Toilet Transfers, Shower Transfers,Activity Tolerance Progress Towards Goals Slow Progress due to Pain,Slow Progress due to Medical Issues,Slow Progress due to Activity Tolerance Assessment Summary Pt able to get out of bed with HOB up with SBA and increased time and education to use her right hand to push off the bed to assist. Pt now able to transfer with ARSALAN, pt just able to transfer only and only able to stand at this time due to decreased activity tolerance. Pt to go home with 24/7 available assist and HH when medically stable. Grooming Goal Independent Dressing Goal Minimal Assistance Toileting Goal Moderate Assistance Bathing Goal Moderate Assistance Toilet Transfer Goal Standby Assistance Shower Transfer Goal Contact Guard Assistance Days to Meet Goals 14 Frequency of Treatment Frequency Of Treatment Once a Day Treatment Plan OT Treatment Plan ADL Training,Functional Mobility,Patient/Family Education,Discharge Planning Other Treatment Recommendations and Next CGA to BSC with FWW Treatment Focus Discharge Recommendations OT Discharge Recommendations Home with 24/7 Assist Available,Home Health Transportation Needs at Discharge Private Vehicle
[2022-06-09] MEDS: PREGABALIN 75 MG CAPSULE 150 MG PO (10:59)
[2022-06-09] MEDS: DULOXETINE 30 MG CAPSULE PO (10:59)
[2022-06-09] MEDS: APIXABAN 5 MG TABLET PO ×2 (10:59→21:10)
[2022-06-09] MEDS: NYSTATIN SUSP 500,000 UNIT/5 ML UDC 500000 UNIT PO ×4 (10:59→21:12)
[2022-06-09] MEDS: LORATADINE 10 MG TABLET PO (11:00)
[2022-06-09] MEDS: SODIUM CHLORIDE 0.9% FLUSH 10 ML IV (11:01)
[2022-06-09] MEDS: methocarbamoL 500 MG TABLET PO (11:05)
[2022-06-09] MEDS: CIPROFLOXACIN 250 MG TABLET 750 MG PO ×2 (11:25→21:13)
[2022-06-09] MEDS: AZITHROMYCIN 250 MG TABLET PO (11:25)
[2022-06-09] MEDS: FUROSEMIDE 20 MG/2 ML VIAL IV (11:25)
--- NOTE | 2022-06-09 12:25 | PT.IIE ---
Current Diagnoses Sepsis, unspecified organism (06/03/22) Type 2 diabetes mellitus without complications (06/03/22) Surgical History (Last Reviewed 06/03/22 @ 08:35 by Lalitha Gracia DO) Anesthesia History of carpal tunnel release History of cataract removal with insertion of prosthetic lens (~2014) History of section History of laminectomy (~2002) History of spinal fusion (~2012) History of thumb surgery Medical History (Last Reviewed 06/03/22 @ 08:35 by Lalitha Gracia DO) Abnormal chest xray (~1979) Anemia Ankle pain Anticoagulated Asthma (~1959) Bronchiectasis (~2006) Cervical spine disease Chronic back pain Colon polyps (~2015) Degenerative joint disease of spine (~2001) Diabetes mellitus, type II (~2009) Eczema Fibromyalgia Foot pain Hoarseness Hyperlipidemia Hypertension Hypothyroidism Migraines (~1964) 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 Osteopenia Pneumonia Pneumonia Recurrent sinusitis (~1970) Restless leg syndrome Shoulder pain (~03/2018) Sleep apnea Wears glasses Physical Therapy Inpatient Evaluation/Re-Eval M1 PT/OT-IP Prior Functional Status Start: 06/07/22 18:37 Freq: NEEDED Status: Active Protocol: Document 06/09/22 12:07 [facility] (Rec: 06/09/22 12:23 [facility] [id number]) Medical Review Prior Functional Status Communication independent Mobility and Gait Use of 4ww or wc at home Activities of Daily Living and IADL's Pt states at times able to do her basic ADL's but needing her to assist and for all IADL needs. 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 2 steps with bilateral grab bars she uses to pull herself up the steps with. Home Environment High Toilet,Walk in Shower, Ramp Home Equipment Front Wheel Walker,Four Wheel Walker,Straight Cane,Manual Wheelchair,Hand Held Shower, Grab Bars Near Toilet,Grab Bars In Shower Additional Social History Comment Pt has an adjustable bed and fold down shower chair M3 PT-IP Subjective Start: 06/08/22 14:22 Freq: NEEDED Status: Active Protocol: Document 06/09/22 12:07 [facility] (Rec: 06/09/22 12:23 [facility] [id number]) Subjective Physical Therapy Visit Type Type Initial Evaluation Visit Start Time 09:20 Visit Stop Time 09:35 Total Visit Minutes [address] SCAN TECH Visits 0 Physical Therapy Visit Comments Patient Comments Patient sitting at EOB with OT . Willing to try walking, sit in chair Patient Goals Return home with assist of Therapy Pain Assessment Pain When Pain Assessed At Rest Pain Present Pain Present Denied Pain M4 PT-IP Mobility and Gait Start: 06/08/22 14:22 Freq: NEEDED Status: Active Protocol: Document 06/09/22 12:07 [facility] (Rec: 06/09/22 12:23 [facility] [id number]) PT-Transfer Assessment Sit to and From Stand Sit to and from Stand Minimal Assistance Equipment Transfer Assistive Device Front Wheeled Walker Orthotic/Prosthetic Devices or Brace: No Transfers Transfer Destination Chair Transfer Technique Stand Step Pivot Transfer Ability Level of Assist Minimal Assistance Comments Mobility Comments limited by respiratory distress, walked approx 6 shuffling steps to chair. 02 sats varied from 94 sitting at rest to 86 as soon as stood up, recovered into 90's in less than 1 min. On 4L 02 per NC Gait Assessment Gait Gait Assistance Required: Minimum Assistance Distance (Feet) 3 Able to Maintain Weight Bearing Status Yes During Gait Assistive Devices Assistive Device Front Wheeled Walker Gait Deviations General Gait Pattern Decreased Stride Length, Decreased Feet Clearance, Flexed Trunk,Wide Based Gait Factors Limiting Gait Function Factors Limiting Gait Function Respiratory Distress Comments Gait Comments Stood x 1 from chair with min assist, but felt unable to ambulate due to SOB. O2 PT-Balance Assessment Sitting Balance and Reactions Static Sitting Balance Ability Good Dynamic Sitting Balance Ability Fair Standing Balance and Reactions Static Standing Balance Ability Fair Dynamic Standing Balance Ability Fair M5 PT-IP Objective Assessments Start: 06/08/22 14:22 Freq: NEEDED Status: Active Protocol: Document 06/09/22 12:07 [facility] (Rec: 06/09/22 12:23 [facility] [id number]) Orientation Orientation/Cognition Level of Alertness Alert Orientation Name,Place,Situation Language Function Ability No Deficits Noted Safety Awareness Understands Safety Issues Memory Description No Deficits Noted Gross Range of Motion Upper Extremity ROM Assessment Within Functional Limits Lower Extremity ROM Assessment Within Functional Limits Strength Upper Extremity Strength Assessment Within Functional Limits Lower Extremity Strength Assessment Within Functional Limits Comments Strength Comments low muscle endurance Sensation Assessment Sensation Gross Sensation WNL M6 PT-IP Treatment Start: 06/08/22 14:22 Freq: NEEDED Status: Active Protocol: Document 06/09/22 12:07 [facility] (Rec: 06/09/22 12:23 [facility] [id number]) Physical Therapy Treatment Other Treatments Other Treatment Performed Not able to tolerate any further treatment. Patient left in care of OT. M7 PT-IP Assessment and Plan Start: 06/08/22 14:22 Freq: NEEDED Status: Active Protocol: Document 06/09/22 12:07 [facility] (Rec: 06/09/22 12:23 [facility] [id number]) PT Summary Assessment and Plan Potential Rehabilitation Potential Good Status of Condition at Evaluation Evolving Summary Impairments Strength,Bed Mobility, Transfers,Activity Tolerance Goals Bed Mobility Goal Independent Transfer Goal Standby Assistance Gait Goal Standby Assistance Gait Distance 50 Days to Meet Goals 5 Frequency of Treatment Frequency Of Treatment Once a Day Treatment Plan Physical Therapy Treatment Plan Bed Mobility Training,Transfer Training,Gait Training, Therapeutic Exercise,Discharge Planning Recommendations To Nursing Amount of Assist Needed 1 Person Assist,2 Person Assist Discharge Recommendations PT Discharge Recommendations Home with 06/11 Assist Available,Home Health,SNF Rehab
[2022-06-09] MEDS: MAGNESIUM CHLORIDE 64 MG TABLET 128 MG PO (13:21)
[2022-06-09] MEDS: INSULIN LISPRO 100 UNIT/ML 3ML VIAL SUBCUT ×3 (13:23→21:16)
--- NOTE | 2022-06-09 14:44 | P.PN_ITS ---
Subjective Subjective Date Patient Seen: 06/09/22 Time Patient Seen: 16:17 Interval history: Patient seen today to follow-up on right lower lobe pneumonia, chronic hypoxia, Pseudomonas colonization and fluid overload. She is been requiring BiPAP at night. She has CPAP at home so we will work on arranging trilogy at home. She was changed from IV cefepime to oral ciprofloxacin. We will resume the levothyroxine and Lantus today. The hemoglobin is 9.5. The glucose is 194. The magnesium is 1.6 and the BMP is normal. Exam Vital Signs (past 8 hours): - 06/09/22 08:43 06/09/22 11:49 06/09/22 08:15 Temperature 98.2 F Pulse Rate 93 H 93 H 91 H Respiratory Rate 20 20 20 Blood Pressure 145/63 H Pulse Oximetry 95 95 95 Oxygen Delivery Method High Flow Nasal Cannula High Flow Nasal Cannula Oxygen Flow Rate 3.5 3.5 4 Fraction of Inspired Oxygen 4 Oxygen Delivery Method High Flow Nasal Cannula Oxygen Flow Rate 3.5 Narrative Exam Narrative: The patient appears very obtunded and the history is obtained from her . She appears to be breathing without distress. Heart is regular rate and rhythm without murmurs Lungs is scattered crackles and wheezes bilaterally Ankles have 1+ bilateral edema pitting Objective Labs 06/09/22 04:17 06/09/22 04:17 Labs: Laboratory Results - last 24 hr 06/09/22 06/09/22 04:17 04:17 WBC 9.3 RBC 3.57 L Hgb 9.5 L Hct 29.6 L MCV 82.8 MCH 26.5 MCHC 32.0 RDW 19.2 H Plt Count 539 H Neut % (Auto) 72.3 Lymph % (Auto) 16.8 L [place] % (Auto) 9.9 Eos % (Auto) 0.1 L Baso % (Auto) 0.9 Neut # (Auto) 6700 Lymph # (Auto) 1600 [place] # (Auto) 900 Eos # (Auto) 0 Baso # (Auto) 100 Sodium 136 L Potassium 3.9 Chloride 97 L Carbon Dioxide 32 BUN 12 Creatinine 0.71 Estimated GFR > 60 BUN/Creatinine Ratio 16.9 Glucose 194 H Calcium 8.8 Magnesium 1.6 PFSH Medical History Abnormal chest xray (~1979) Anemia Ankle pain Anticoagulated Asthma (~1959) Bronchiectasis (~2006) Cervical spine disease Chronic back pain Colon polyps (~2015) Degenerative joint disease of spine (~2001) Diabetes mellitus, type II (~2009) Eczema Fibromyalgia Foot pain Hoarseness Hyperlipidemia Hypertension Hypothyroidism Migraines (~1964) 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 Osteopenia Pneumonia Pneumonia Recurrent sinusitis (~1970) Restless leg syndrome Shoulder pain (~03/2018) Sleep apnea Wears glasses Surgical History Anesthesia History of carpal tunnel release History of cataract removal with insertion of prosthetic lens (~2014) History of section History of laminectomy (~2002) History of spinal fusion (~2012) History of thumb surgery Family History Father Stroke Mother Hypertension Brother Cerebral aneurysm Prostate cancer Diabetes mellitus Hypertension Stroke Brother Arthritis Hyperlipidemia Hypertension Sister History of kidney cancer Hypertension Grandfather Cancer Grandmother Cancer Other Family history non-contributory Social History household members: spouse Smoking Status: Never smoker alcohol intake: current Assessment & Plan Assessment & Plan narrative: Assessment & Plan narrative: # acute on chronic hypoxic respiratory failure in setting of asthma and bronchiectasis, pseudomonas pneumonia, possible diastolic heart failure -normally on 4-5L NC at home, on BiPaP overnight, will arrange trilogy at home -followed outpatient by Dr. Oscar pulmonology at [facility] -etiology likely due to pneumonia, RLL pneumonia on chest xray, improving on yesterday's chest xray, with some minor effusion, sputum + for pseudomonas sensitive to cefipime, discontinued Vancomycin and started daily furosemide 20 mg, increased daily furosemide to 40 mg on 06/09 -duonebs PRN -continue home singulair -continue minimal diuresis with 40mg IV lasix daily, does seem to be helping slightly though also receiving antibiotics. # sepsis secondary to right lower lobe pneumonia due to pseudomonal pneumonia. - increased cefepime to 2g q8 hours from q12 given normal renal function to cover for pseudomonas noted on sputum cultures. ?- senstive to cipro on sensitivities. We will change to Cipro oral on 06/09. ?- sputum culture also?with yeast, on diflucan for vaginal yeast prevention with antibiotic therapy, may suffice for therapy. # hypomagnesemia -mag 1.4 on presentation needing replacement, then 1.5, then 1.9, then 1.6 today -2g IV x2 -today 1.6, follow tomorrow # history of PE and A-fib, with acute possibly on chronic diastolic heart failure -continue eliquis -TTE last admission with normal EF, borderling RV function. -diuresing as noted above with slight improvement. # DM2 -regular insulin SSI while NPO on bipap, and continue now that beginning to eat -checked A1c, is 6.2, so reasonable good control normally - begin Lantus on half-normal dose, 10 units on 06/09 # RLS -continue home mirapex # neuropathy -continue cymbalta, nortriptyline and lyrica # Nettie rash - consistent with yeast overgrowth, treat with clotrim/betameth Follow clinically and follow labs. Code status is DNR/DNI. COVID negative. DVT prophylaxis with apixaban. Proxy is Harjeet -Respiratory therapy has been working with patient regarding CPAP they have been able to get her off BiPAP and have her on CPAP but she is requiring at least 6 L if not more, it is noted that home CPAP machines have a max limit of 5 L. I recommend patient have prescription for trilogy to [facility] to facilitate dis charge, for home use. Time Spent With Patient Critical Care time: I spent a total of [] minutes of critical care time on this patient's care today; this time is exclusive of procedural time.
[2022-06-09] MEDS: CLOTRIMAZOLE/BETAMETHASONE CRM 15 GM 1 APPLIC TOP (21:10)
[2022-06-09] MEDS: ATORVASTATIN 20 MG TABLET 40 MG PO (21:10)
[2022-06-09] MEDS: PRAMIPEXOLE 0.25 MG TABLET 0.5 MG PO (21:11)
[2022-06-09] MEDS: NORTRIPTYLINE HCL 25 MG CAPSULE PO (21:11)
[2022-06-09] MEDS: MONTELUKAST 10 MG TABLET PO (21:11)
[2022-06-09] MEDS: INSULIN GLARGINE 100 UNIT/ML 3ML PEN 10 UNIT SUBCUT (21:13)
[2022-06-10] VITALS (9 sets, daily range): BP systolic 108–137; BP diastolic 55–82; PULSE 84–96; RESP 18–27; TEMP 36.1–37.1; O2SAT 93–96
[2022-06-10] MEDS: SODIUM CHLORIDE 0.9% FLUSH 10 ML IV ×3 (00:11→21:42)
[2022-06-10 06:25] LABS: Add Manual Diff / Slide Review NO; Basophils Absolute Auto 100 /uL (0-100); Basophils Percent Auto 0.6 % (0-2); Eosinophils Absolute Auto 0 /uL (0-450); Hematocrit 27.6 % (36-46); Hemoglobin 8.9 g/dL (12.0-16.0); Lymphocytes Absolute Auto 1400 /uL (1100-4500); Mean Corpuscular HGB Conc 32.2 % (30-36); Mean Corpuscular Hemoglobin 26.7 PG (26-34); Mean Corpuscular Volume 82.8 fL (80-100); Monocytes Absolute Auto 1300 /uL (0-900); Neutrophils Absolute Auto 6800 /uL (1500-7000); Neutrophils Percent Auto 70.4 % (50-75); Platelet Count 490 X10^3/uL (150-400); Red Blood Cell Count 3.33 X10^6/uL (4.0-5.2); Red Cell Distribution Width 19.4 % (11.6-14.8); White Blood Cell Count 9.6 X10^3/uL (4.5-11.0)
--- NOTE | 2022-06-10 06:27 | RT ---
Pt currently asleep while wearing her home CPAP unit. No apparent distress noted.
[2022-06-10] MEDS: LEVOTHYROXINE 75 MCG TABLET PO (06:51)
[2022-06-10] MEDS: CIPROFLOXACIN 250 MG TABLET 750 MG PO ×2 (06:52→21:41)
[2022-06-10] MEDS: ALBUTEROL/IPRATROPIUM 3 ML AMPUL INH ×4 (07:24→22:07)
[2022-06-10] MEDS: BUDESONIDE 0.5 MG/2 ML NEB INH ×2 (07:24→19:45)
[2022-06-10 07:28] LABS: BUN Creatinine Ratio 16.7 (6-22); Blood Urea Nitrogen 12 mg/dL (7-17); Calcium 8.8 mg/dL (8.4-10.2); Carbon Dioxide 32 mmol/L (22-32); Chloride 96 mmol/L (98-107); Estimated Glomerular Filt Rate > 60 mL/min (>60); Glucose 193 mg/dL (80-110); HEMOLYSIS < 15 (0-50); Magnesium 1.6 mg/dL (1.6-2.3); Sodium 135 mmol/L (137-145)
[2022-06-10] MEDS: ACETAMINOPHEN 325 MG TABLET 650 MG PO ×3 (07:42→21:32)
[2022-06-10] MEDS: DULOXETINE 30 MG CAPSULE PO (08:08)
[2022-06-10] MEDS: PREGABALIN 75 MG CAPSULE 150 MG PO (08:08)
[2022-06-10] MEDS: NYSTATIN SUSP 500,000 UNIT/5 ML UDC 500000 UNIT PO ×4 (08:08→21:27)
[2022-06-10] MEDS: LORATADINE 10 MG TABLET PO (08:08)
[2022-06-10] MEDS: APIXABAN 5 MG TABLET PO ×2 (08:08→21:27)
[2022-06-10] MEDS: FUROSEMIDE 40 MG/4 ML VIAL IV (08:08)
[2022-06-10] MEDS: INSULIN LISPRO 100 UNIT/ML 3ML VIAL SUBCUT ×4 (08:09→21:35)
[2022-06-10] MEDS: OXYCODONE IR 5 MG TABLET 10 MG PO ×3 (09:23→21:31)
[2022-06-10] MEDS: predniSONE 20 MG TABLET PO (12:33)
--- NOTE | 2022-06-10 15:49 | PM.PN.1 ---
Subjective Subjective Date Patient Seen: 06/10/22 Interval history: 71-year-old female with a history of common variable immune deficiency, on chronic prednisone, atrial fibrillation anticoagulated on Eliquis, NSTEMI in January 2022 diabetes type 2, asthma, pulmonary aspergillosis admitted due to acute on chronic hypoxic respiratory failure due to pneumonia. Pt with improving course. Yest was obtunded and now much more awake. Currently on 4L high flow and BIPAP at night. RT arranging for home Trilogy. Sputum grew pseudomonas sens to Cipro. Exam Vital Signs (past 8 hours): - 06/10/22 08:47 06/10/22 11:33 06/10/22 12:00 Temperature 98 F Pulse Rate 89 84 Respiratory Rate 25 H 20 Blood Pressure 123/57 L Pulse Oximetry 95 94 Oxygen Delivery Method Nasal Cannula Nasal Cannula Oxygen Flow Rate 4 4 Fraction of Inspired Oxygen 36 06/10/22 13:27 Temperature 98.8 F Pulse Rate 96 H Respiratory Rate 27 H Blood Pressure 108/57 L Pulse Oximetry 93 Oxygen Delivery Method Oxygen Flow Rate 4 Fraction of Inspired Oxygen Fraction of Inspired Oxygen 36 SaO2/FiO2 Ratio 261 Oxygen Delivery Method Nasal Cannula Oxygen Flow Rate 4 Narrative Exam Narrative: Gen: alert, cooperative Lungs: audible wheeze, scattered crackles CV: regular Ext: chronic venous stasis, 2+ pitting LE bilat Objective Labs 06/10/22 06:15 06/10/22 06:15 Labs: Laboratory Results - last 24 hr 06/10/22 06/10/22 06:15 06:15 WBC 9.6 RBC 3.33 L Hgb 8.9 L Hct 27.6 L MCV 82.8 MCH 26.7 MCHC 32.2 RDW 19.4 H Plt Count 490 H Neut % (Auto) 70.4 Lymph % (Auto) 15.0 L [place] % (Auto) 14.0 Eos % (Auto) 0.0 L Baso % (Auto) 0.6 Neut # (Auto) 6800 Lymph # (Auto) 1400 [place] # (Auto) 1300 H Eos # (Auto) 0 Baso # (Auto) 100 Sodium 135 L Potassium 4.0 Chloride 96 L Carbon Dioxide 32 BUN 12 Creatinine 0.72 Estimated GFR > 60 BUN/Creatinine Ratio 16.7 Glucose 193 H Calcium 8.8 Magnesium 1.6 PFSH Medical History Abnormal chest xray (~1979) Anemia Ankle pain Anticoagulated Asthma (~1959) Bronchiectasis (~2006) Cervical spine disease Chronic back pain Colon polyps (~2015) Degenerative joint disease of spine (~2001) Diabetes mellitus, type II (~2009) Eczema Fibromyalgia Foot pain Hoarseness Hyperlipidemia Hypertension Hypothyroidism Migraines (~1964) 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 Osteopenia Pneumonia Pneumonia Recurrent sinusitis (~1970) Restless leg syndrome Shoulder pain (~03/2018) Sleep apnea Wears glasses Surgical History Anesthesia History of carpal tunnel release History of cataract removal with insertion of prosthetic lens (~2014) History of section History of laminectomy (~2002) History of spinal fusion (~2012) History of thumb surgery Family History Father Stroke Mother Hypertension Brother Cerebral aneurysm Prostate cancer Diabetes mellitus Hypertension Stroke Brother Arthritis Hyperlipidemia Hypertension Sister History of kidney cancer Hypertension Grandfather Cancer Grandmother Cancer Other Family history non-contributory Social History household members: spouse Smoking Status: Never smoker alcohol intake: current Assessment & Plan Assessment & Plan narrative: # acute on chronic hypoxic respiratory failure in setting of asthma and bronchiectasis, pseudomonas pneumonia, possible diastolic heart failure -normally on 4-5L NC at home, currently 4L HF, on BiPAP overnight, will arrange trilogy at home -followed outpatient by Dr. Oscar pulmonology at [facility] -etiology likely due to pneumonia, RLL pneumonia on chest xray, improving on repeat chest xray, with some minor effusion, sputum + for pseudomonas sensitive to cefipime & Cipro, discontinued Vancomycin -started daily furosemide 20 mg, increased daily furosemide to 40 mg on 06/09 -duonebs PRN -continue home singulair -continue minimal diuresis with 40mg IV lasix daily, does seem to be helping slightly though also receiving antibiotics. -started oral Cipro 06/09 and stopped Cefepime -assess O2 with ambulating # sepsis secondary to right lower lobe pneumonia due to pseudomonal pneumonia. - increased cefepime to 2g q8 hours from q12 given normal renal function to cover for pseudomonas noted on sputum cultures. ?- senstive to cipro on sensitivities.? We will change to Cipro oral on 06/09. ?- sputum culture also?with yeast, on diflucan for vaginal yeast prevention with antibiotic therapy, may suffice for therapy. 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 -diuresing as noted above with slight improvement. # DM2 -regular insulin SSI while NPO on bipap, and continue now that beginning to eat -checked A1c, is 6.2, so reasonable good control normally -Lantus 20 U HS # RLS -continue home mirapex # neuropathy -continue cymbalta, nortriptyline and lyrica # Nettie rash - consistent with yeast overgrowth, treat with clotrim/betameth Follow clinically and follow labs. Code status is DNR/DNI. COVID negative. DVT prophylaxis with apixaban. Proxy is Harjeet Time Spent With Patient Critical Care time: I spent a total of [] minutes of critical care time on this patient's care today; this time is exclusive of procedural time.
--- NOTE | 2022-06-10 18:23 | PT-IP ANOTE ---
Began working with pt however she became winded and decided to stop therapy after 5 min attempting to sit on side of bed. Refused bed PT. Will check on pt tomorrow.
[2022-06-10] MEDS: PRAMIPEXOLE 0.25 MG TABLET 0.5 MG PO (21:27)
[2022-06-10] MEDS: MONTELUKAST 10 MG TABLET PO (21:27)
[2022-06-10] MEDS: ATORVASTATIN 20 MG TABLET 40 MG PO (21:27)
[2022-06-10] MEDS: NORTRIPTYLINE HCL 25 MG CAPSULE PO (21:27)
[2022-06-10] MEDS: INSULIN GLARGINE 100 UNIT/ML 3ML PEN 20 UNIT SUBCUT (21:34)
[2022-06-10] MEDS: diphenhydrAMINE 50 MG/ML VIAL 25 MG IV (21:42)
[2022-06-11] VITALS (10 sets, daily range): BP systolic 114–162; BP diastolic 56–77; PULSE 86–92; RESP 18–24; TEMP 36.1–37.2; O2SAT 91–98
[2022-06-11 04:50] LABS: Add Manual Diff / Slide Review NO; Basophils Absolute Auto 0 /uL (0-100); Basophils Percent Auto 0.5 % (0-2); Eosinophils Absolute Auto 0 /uL (0-450); Hematocrit 24.7 % (36-46); Lymphocytes Absolute Auto 1200 /uL (1100-4500); Lymphocytes Percent Auto 12.2 % (25-40); Mean Corpuscular HGB Conc 32.4 % (30-36); Mean Corpuscular Hemoglobin 26.6 PG (26-34); Mean Corpuscular Volume 81.8 fL (80-100); Monocytes Absolute Auto 1200 /uL (0-900); Monocytes Percent Auto 12.3 % (3-14); Neutrophils Absolute Auto 7200 /uL (1500-7000); Platelet Count 514 X10^3/uL (150-400); Red Blood Cell Count 3.02 X10^6/uL (4.0-5.2); Red Cell Distribution Width 19.5 % (11.6-14.8); White Blood Cell Count 9.6 X10^3/uL (4.5-11.0)
[2022-06-11 04:55] LABS: BUN Creatinine Ratio 21.3 (6-22); Blood Urea Nitrogen 16 mg/dL (7-17); Calcium 8.8 mg/dL (8.4-10.2); Carbon Dioxide 34 mmol/L (22-32); Chloride 95 mmol/L (98-107); Estimated Glomerular Filt Rate > 60 mL/min (>60); Glucose 264 mg/dL (80-110); HEMOLYSIS < 15 (0-50); Magnesium 1.6 mg/dL (1.6-2.3); Potassium 4.3 mmol/L (3.4-5.1); Sodium 133 mmol/L (137-145)
[2022-06-11] MEDS: CIPROFLOXACIN 250 MG TABLET 750 MG PO ×2 (06:39→20:03)
[2022-06-11] MEDS: LEVOTHYROXINE 75 MCG TABLET PO (06:39)
--- NOTE | 2022-06-11 06:47 | RT ---
Pt asleep while wearing home CPAP unit/6L O2 bleed in. SpO2 94%, HR 84 BPM.
[2022-06-11] MEDS: BUDESONIDE 0.5 MG/2 ML NEB INH ×2 (07:34→19:39)
[2022-06-11] MEDS: ALBUTEROL/IPRATROPIUM 3 ML AMPUL INH ×5 (07:35→22:10)
[2022-06-11] MEDS: APIXABAN 5 MG TABLET PO ×2 (08:24→20:03)
[2022-06-11] MEDS: predniSONE 5 MG TABLET PO (08:24)
[2022-06-11] MEDS: FUROSEMIDE 40 MG/4 ML VIAL IV (08:24)
[2022-06-11] MEDS: NYSTATIN SUSP 500,000 UNIT/5 ML UDC 500000 UNIT PO ×4 (08:24→20:03)
[2022-06-11] MEDS: LORATADINE 10 MG TABLET PO (08:24)
[2022-06-11] MEDS: PREGABALIN 75 MG CAPSULE 150 MG PO (08:24)
[2022-06-11] MEDS: DULOXETINE 30 MG CAPSULE PO (08:24)
[2022-06-11] MEDS: INSULIN LISPRO 100 UNIT/ML 3ML VIAL SUBCUT ×4 (08:25→20:05)
[2022-06-11] MEDS: SODIUM CHLORIDE 0.9% FLUSH 10 ML IV ×2 (09:07→20:04)
--- NOTE | 2022-06-11 12:50 | P.PN_ITS ---
Subjective Subjective Date Patient Seen: 06/11/22 Interval history: 71-year-old female with a history of chronic respiratory failure, common variable immune deficiency, on chronic prednisone, atrial fibrillation anticoagulated on Eliquis, NSTEMI in January 2022 diabetes type 2, asthma, pu lmonary aspergillosis admitted due to acute on chronic hypoxic respiratory failure due to pneumonia. Pt on Cipro for pseudomonas pneumonia. She feels less dyspneic today. Remains on 4L HF. Currently up in chair and was able to shower this morning. Wasn't able to work with PT yesterday. RT arranging home Trilogy. We're hoping to discharge home tomorrow if pt can walk 20 ft to get from bedroom to BR. Has WC at home as well. Exam Vital Signs (past 8 hours): - 06/11/22 07:35 06/11/22 09:06 06/11/22 07:00 Temperature 98.9 F Pulse Rate 86 88 Respiratory Rate 18 20 Blood Pressure 159/72 H Pulse Oximetry 96 93 Oxygen Delivery Method High Flow Nasal Cannula Nasal Cannula Oxygen Flow Rate 4 6 Fraction of Inspired Oxygen 36 06/11/22 11:04 Temperature Pulse Rate 92 H Respiratory Rate 18 Blood Pressure Pulse Oximetry 94 Oxygen Delivery Method High Flow Nasal Cannula Oxygen Flow Rate 4 Fraction of Inspired Oxygen 36 Fraction of Inspired Oxygen 36 SaO2/FiO2 Ratio 261 Oxygen Delivery Method High Flow Nasal Cannula Oxygen Flow Rate 4 Narrative Exam Narrative: Gen: alert, cooperative Lungs: able to speak full sentences, crackles LLL, no wheeze CV: regular Ext: chronic venous stasis, 2+ pitting LE bilat (chronic) Objective Labs 06/11/22 04:35 06/11/22 04:35 Labs: Laboratory Results - last 24 hr 06/11/22 06/11/22 04:35 04:35 WBC 9.6 RBC 3.02 L Hgb 8.0 L Hct 24.7 L MCV 81.8 MCH 26.6 MCHC 32.4 RDW 19.5 H Plt Count 514 H Neut % (Auto) 75.0 Lymph % (Auto) 12.[address] [place] % (Auto) 12.3 Eos % (Auto) 0.0 L Baso % (Auto) 0.5 Neut # (Auto) 7200 H Lymph # (Auto) 1200 [place] # (Auto) 1200 H Eos # (Auto) 0 Baso # (Auto) 0 Sodium 133 L Potassium 4.3 Chloride 95 L Carbon Dioxide 34 H BUN 16 Creatinine 0.75 Estimated GFR > 60 BUN/Creatinine Ratio 21.3 Glucose 264 H Calcium 8.8 Magnesium 1.6 PFSH Medical History Abnormal chest xray (~1979) Anemia Ankle pain Anticoagulated Asthma (~1959) Bronchiectasis (~2006) Cervical spine disease Chronic back pain Colon polyps (~2015) Degenerative joint disease of spine (~2001) Diabetes mellitus, type II (~2009) Eczema Fibromyalgia Foot pain Hoarseness Hyperlipidemia Hypertension Hypothyroidism Migraines (~1964) 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 Osteopenia Pneumonia Pneumonia Recurrent sinusitis (~1970) Restless leg syndrome Shoulder pain (~03/2018) Sleep apnea Wears glasses Surgical History Anesthesia History of carpal tunnel release History of cataract removal with insertion of prosthetic lens (~2014) History of section History of laminectomy (~2002) History of spinal fusion (~2012) History of thumb surgery Family History Father Stroke Mother Hypertension Brother Cerebral aneurysm Prostate cancer Diabetes mellitus Hypertension Stroke Brother Arthritis Hyperlipidemia Hypertension Sister History of kidney cancer Hypertension Grandfather Cancer Grandmother Cancer Other Family history non-contributory Social History household members: spouse Smoking Status: Never smoker alcohol intake: current Assessment & Plan Assessment & Plan narrative: # acute on chronic hypoxic respiratory failure in setting of asthma and bronchi ectasis, pseudomonas pneumonia, possible diastolic heart failure -normally on 4-5L NC at home, currently 4L HF, on BiPAP overnight, will arrange trilogy at home -followed outpatient by Dr. Oscar pulmonology at [facility] appt on Tuesday 06/13 -etiology likely due to pneumonia, RLL pneumonia on chest xray, improving on repeat chest xray, with some minor effusion -sputum + for pseudomonas sensitive to cefipime & Cipro, discontinued Vancomycin -duonebs PRN -continue home singulair -started oral Cipro 06/09 and stopped Cefepime -assess O2 with ambulating -hopefully home Sunday, arrange resumption of HH with [facility] # sepsis secondary to right lower lobe pneumonia due to pseudomonal pneumonia. - pt now on oral Cipro since 06/09, was on Cefepime # combined variable immunodeficiency -pt on chronic prednisone -pred 20 mg x 1 on 06/10 for stress dose, then restarted 5 mg daily maintenance dose # chronic venous insufficiency/stasis -increased daily furosemide to 40 mg IV on 06/09 with minimal net diuresis -06/11 stopped IV furosemide and restarted oral 20 mg daily (home dose) # hypomagnesemia -mag 1.4 on presentation needing replacement, then 1.5, then 1.9, then 1.6 -2g IV x2 -Mg stable # history of PE and A-fib, with acute possibly on chronic diastolic heart failu re -continue eliquis -TTE last admission with normal EF, borderling RV function. -diuresing as noted above with slight improvement. # DM2 -regular insulin SSI while NPO on bipap, and continue now that beginning to eat -checked A1c, is 6.2, so reasonable good control normally -inc Lantus 30 U AM (home dose) # RLS -continue home mirapex # neuropathy -continue cymbalta, nortriptyline and lyrica # Nettie rash - consistent with yeast overgrowth, treat with clotrim/betameth # oral thrush - on po nystatin Follow clinically and follow labs. Code status is DNR/DNI. COVID negative. DVT prophylaxis with apixaban. Proxy is Harjeet Time Spent With Patient Critical Care time: I spent a total of [] minutes of critical care time on this patient's care today; this time is exclusive of procedural time.
[2022-06-11] MEDS: PRAMIPEXOLE 0.25 MG TABLET 0.5 MG PO (20:03)
[2022-06-11] MEDS: ATORVASTATIN 20 MG TABLET 40 MG PO (20:03)
[2022-06-11] MEDS: methocarbamoL 500 MG TABLET PO (20:03)
[2022-06-11] MEDS: MONTELUKAST 10 MG TABLET PO (20:03)
[2022-06-11] MEDS: OXYCODONE IR 5 MG TABLET 10 MG PO (20:04)
[2022-06-11] MEDS: ACETAMINOPHEN 325 MG TABLET 650 MG PO (20:04)
[2022-06-11] MEDS: NORTRIPTYLINE HCL 25 MG CAPSULE PO (20:04)
[2022-06-12] VITALS: BP 118/56; PULSE 92; RESP 14; TEMP 36.1; O2SAT 92
[2022-06-12 04:00] VITALS: BP 125/67; PULSE 86; RESP 14; TEMP 36.1; O2SAT 95
[2022-06-12 04:57] LABS: Blood Urea Nitrogen 17 mg/dL (7-17); Calcium 8.6 mg/dL (8.4-10.2); Carbon Dioxide 32 mmol/L (22-32); Chloride 95 mmol/L (98-107); Estimated Glomerular Filt Rate > 60 mL/min (>60); Glucose 266 mg/dL (80-110); HEMOLYSIS < 15 (0-50); Magnesium 1.6 mg/dL (1.6-2.3); Sodium 132 mmol/L (137-145)
[2022-06-12] MEDS: LEVOTHYROXINE 75 MCG TABLET PO (06:42)
[2022-06-12] MEDS: CIPROFLOXACIN 250 MG TABLET 750 MG PO (06:42)
[2022-06-12 08:00] VITALS: BP 137/68; PULSE 94; RESP 18; TEMP 36.1; O2SAT 94
[2022-06-12] MEDS: BUDESONIDE 0.5 MG/2 ML NEB INH (08:20)
[2022-06-12 08:21] VITALS: PULSE 89; RESP 18; O2SAT 99
[2022-06-12] MEDS: ALBUTEROL/IPRATROPIUM 3 ML AMPUL INH ×2 (08:21→11:11)
[2022-06-12] MEDS: LORATADINE 10 MG TABLET PO (08:50)
[2022-06-12] MEDS: PREGABALIN 75 MG CAPSULE 150 MG PO (08:50)
[2022-06-12] MEDS: AZITHROMYCIN 250 MG TABLET PO (08:50)
[2022-06-12] MEDS: DULOXETINE 30 MG CAPSULE PO (08:51)
[2022-06-12] MEDS: FUROSEMIDE 20 MG TABLET PO (08:51)
[2022-06-12] MEDS: NYSTATIN SUSP 500,000 UNIT/5 ML UDC 500000 UNIT PO ×2 (08:51→12:46)
[2022-06-12] MEDS: predniSONE 5 MG TABLET PO (08:51)
[2022-06-12] MEDS: INSULIN LISPRO 100 UNIT/ML 3ML VIAL SUBCUT ×2 (08:51→12:45)
[2022-06-12] MEDS: INSULIN GLARGINE 100 UNIT/ML 3ML PEN 30 UNIT SUBCUT (08:53)
[2022-06-12] MEDS: SODIUM CHLORIDE 0.9% FLUSH 10 ML IV (08:55)
[2022-06-12] MEDS: APIXABAN 5 MG TABLET PO (08:57)
--- NOTE | 2022-06-12 09:32 | PT.IPTN ---
Current Diagnoses Sepsis, unspecified organism (06/03/22) Type 2 diabetes mellitus without complications (06/03/22) Physical Therapy Treatment Note M3 PT-IP Subjective Start: 06/08/22 14:22 Freq: NEEDED Status: Active Protocol: Document 06/12/22 09:26 [facility] (Rec: 06/12/22 09:31 [facility] [id number]) Subjective Physical Therapy Visit Type Type Treatment Note Visit Start Time 09:10 Visit Stop Time 09:28 Total Visit Minutes 18 Physical Therapy Visit Comments Patient Comments Patient willing to participate in PT, requests transfer only this am. Is concerned about coughing up pink sputum this am. Had been hoping to go home until pink sputum, hasn't seen doctor yet. Patient Goals Return home with assist of Therapy Pain Assessment Pain When Pain Assessed At Rest Pain Present Pain Present Denied Pain M4 PT-IP Mobility and Gait Start: 06/08/22 14:22 Freq: NEEDED Status: Active Protocol: Document 06/12/22 09:26 [facility] (Rec: 06/12/22 09:31 [facility] [id number]) PT-Bed Mobility Assessment Supine to Sit Supine to Sit Minimal Assistance,Bedrails Scooting Scooting to Edge of Bed Contact Guard Assistance PT-Transfer Assessment Sit to and From Stand Sit to and from Stand Contact Guard Assistance, Minimal Assistance Equipment Transfer Assistive Device Front Wheeled Walker Orthotic/Prosthetic Devices or Brace: No Transfers Transfer Destination Chair Transfer Technique Stand Step Pivot Transfer Ability Level of Assist Minimal Assistance Comments Mobility Comments O2 sats 95 at rest, dropped to 90 during transfer. Gait Assessment Gait Gait Assistance Required: Minimum Assistance Distance (Feet) 3 Able to Maintain Weight Bearing Status Yes During Gait Assistive Devices Assistive Device Front Wheeled Walker Orthotic/Prosthetic Devices or Brace: No Gait Deviations General Gait Pattern Decreased Stride Length, Decreased Feet Clearance, Flexed Trunk,Wide Based Gait Factors Limiting Gait Function Factors Limiting Gait Function Respiratory Distress Comments Gait Comments refused gait beyond transfer to chair this am. PT-Balance Assessment Sitting Balance and Reactions Static Sitting Balance Ability Good Dynamic Sitting Balance Ability Fair Standing Balance and Reactions Static Standing Balance Ability Fair Dynamic Standing Balance Ability Fair M5 PT-IP Objective Assessments Start: 06/08/22 14:22 Freq: NEEDED Status: Active Protocol: Document 06/12/22 09:26 [facility] (Rec: 06/12/22 09:31 [facility] [id number]) Orientation Orientation/Cognition Level of Alertness Alert Orientation Name,Age,Birthday,Month,Date, Year,Day of Week,Place, Situation Language Function Ability No Deficits Noted Safety Awareness Understands Safety Issues Memory Description No Deficits Noted M6 PT-IP Treatment Start: 06/08/22 14:22 Freq: NEEDED Status: Active Protocol: Document 06/09/22 12:07 [facility] (Rec: 06/09/22 12:23 [facility] [id number]) Physical Therapy Treatment Other Treatments Other Treatment Performed Not able to tolerate any further treatment. Patient left in care of OT. M7 PT-IP Assessment and Plan Start: 06/08/22 14:22 Freq: NEEDED Status: Active Protocol: Document 06/12/22 09:26 [facility] (Rec: 06/12/22 09:31 [facility] [id number]) PT Summary Assessment and Plan Potential Rehabilitation Potential Good Status of Condition at Evaluation Evolving Summary Impairments Strength,Bed Mobility, Transfers,Activity Tolerance Goals Bed Mobility Goal Independent Transfer Goal Standby Assistance Gait Goal Standby Assistance Gait Distance 50 Days to Meet Goals 5 Frequency of Treatment Frequency Of Treatment Once a Day Treatment Plan Physical Therapy Treatment Plan Bed Mobility Training,Transfer Training,Gait Training, Therapeutic Exercise,Discharge Planning Other Recommendations and Next Treatment stair and gait training in Focus preparation for discharge Recommendations To Nursing Amount of Assist Needed Standby Assistance Discharge Recommendations PT Discharge Recommendations Home with 06/11 Assist Available,Home Health,SNF Rehab Transportation Needs at Discharge Private Vehicle,Wheelchair/ Cabulance
[2022-06-12 11:11] VITALS: PULSE 84; RESP 18; O2SAT 98
[2022-06-12 12:00] VITALS: BP 126/59; PULSE 84; RESP 20; TEMP 36.3; O2SAT 94
--- NOTE | 2022-06-12 12:20 | P.DS_ITS ---
History of Present Illness History of Present Illness Date Patient Seen: 06/12/22 Chief complaint: resp failure Narrative: Radha Zavaleta is a 71-year-old female with a history of asthma, bronchiectasis with multiple previous pseumomonal, stenotrophomonas and MRSA pneumonias on chronic azithro, chronic hypoxic resp failure on 5L NC, CVID on q3w IVIG infusions, Afib on Amio/Eliquis, NSTEMI in January 2022, LORENE, DM2, asthma, chronic back pain, hypothyroidism, hypertension and hyperlipidemia who presents with worsening dypsnea and found to have RLL pneumonia. History obtained from as patient is somnolent on bipap. He says he noticed that he O2 sats were decreasing the past few days and she was requiring higher amounts of her supplemental O2 to maintain sats. She finally was on 5L NC and satting 85% so EMS called and she was placed on CPAP and given breathing treatment. In the ED patient found to have fever of 101.7, WBC 13.9 and ABG showed pH 7.37, pCO2 50, pO2 71 and HCO3 29. Patient placed on bipap with improvement in sats. confirms patient is DNR/DNI. Discharge Providers Provider Date of admission: 06/03/22 12:16 Discharge Date: 06/12/22 Primary care physician: Karin Porter MD Consults: 06/07/22 11:16 Consult to Occupational Therapy Evaluate & Treat Comment: Physician Instructions: Evaluate and treat Consult to Physical Therapy Evaluate & Treat Comment: Physician Instructions: Evaluate and Treat Discharge provider: Wade Downing DO Summary Hospital Course Discharge Diagnosis: # acute on chronic hypoxic respiratory failure in setting of asthma and bronchiectasis, pseudomonas pneumonia, possible diastolic heart failure -normally on 4-5L NC at home, currently 4L HF, on BiPAP overnight, will arrange trilogy at home -followed outpatient by Dr. Oscar pulmonology at [facility],?has appt on Tuesday 06/13 -etiology likely due to pneumonia, RLL pneumonia on chest xray, improving on repeat chest xray, with some minor effusion -sputum + for pseudomonas sensitive to cefipime & Cipro, discontinued Vancomycin -duonebs PRN -continue home singulair -started oral Cipro 06/09 and stopped Cefepime -plan for outpatient treatment with po cirpo x7 days # sepsis secondary to right lower lobe pneumonia due to pseudomonal pneumonia. - pt now on oral Cipro since 06/09, was on Cefepime # combined variable immunodeficiency -pt on chronic prednisone -pred 20 mg x 1 on 06/10 for stress dose, then restarted 5 mg daily maintenance dose # chronic venous insufficiency/stasis -increased daily furosemide to 40 mg IV on 06/09 with minimal net diuresis -06/11 stopped IV furosemide and restarted oral 20 mg daily (home dose) # hypomagnesemia -mag 1.4 on presentation needing replacement, then 1.5, then 1.9, then 1.6 -2g IV x2 -Mg stable # history of PE and A-fib, with acute possibly on chronic diastolic heart failure -continue eliquis -TTE last admission with normal EF, borderling RV function. -diuresing as noted above with slight improvement. # DM2 -regular insulin SSI while NPO on bipap, and continue now that beginning to eat -checked A1c, is 6.2, so reasonable good control normally -inc Lantus 30 U AM (home dose) # RLS -continue home mirapex # neuropathy -continue cymbalta, nortriptyline and lyrica # Nettie rash - consistent with yeast overgrowth, treat with clotrim/betameth # oral thrush - on po nystatin Hospital Course: 71-year-old female with a history of chronic respiratory failure, common variable immune deficiency, on chronic prednisone, atrial fibrillation anticoagulated on Eliquis, NSTEMI in January 2022 diabetes type 2, asthma, pulmonary aspergillosis admitted due to acute on chronic hypoxic respiratory failure due to pneumonia. She initially required bipap but was able to come off with IV cefepime treatment. Sputum culture grew pseudomonas sensitive to cefepime and cipro. Transitioned to po cipro. Trigology home device attempted to be arranged through [facility] but patient did not have qualifying diagnosis. Therefore she was kept on her home O2 and was at baseline 4-5L at discharge. She will continue 7 days of po cipro and f/u with her pulmonnologist Dr. Oscar for ongoing care. Time Spent with Patient Time spent: Greater than 30 minutes Exam Vital Signs (past 8 hours): - 06/12/22 08:21 06/12/22 08:00 06/12/22 07:00 Temperature 96.9 F L Pulse Rate 89 94 H Respiratory Rate 18 18 Blood Pressure 137/68 Pulse Oximetry 99 94 Oxygen Delivery Method High Flow Nasal Cannula Nasal Cannula Oxygen Flow Rate 4 5 Fraction of Inspired Oxygen 36 06/12/22 11:11 Temperature Pulse Rate 84 Respiratory Rate 18 Blood Pressure Pulse Oximetry 98 Oxygen Delivery Method High Flow Nasal Cannula Oxygen Flow Rate 4 Fraction of Inspired Oxygen 36 Fraction of Inspired Oxygen 36 SaO2/FiO2 Ratio 272 Oxygen Delivery Method High Flow Nasal Cannula Oxygen Flow Rate 4 Narrative Exam Narrative: Gen: alert, cooperative Lungs: able to speak full sentences, crackles LLL, no wheeze CV: regular Ext: chronic venous stasis, 2+ pitting LE bilat (chronic) Objective Labs 06/11/22 04:35 06/12/22 04:18 Labs: Laboratory Results - last 24 hr 06/12/22 04:18 Sodium 132 L Potassium 4.0 Chloride 95 L Carbon Dioxide 32 BUN 17 Creatinine 0.74 Estimated GFR > 60 BUN/Creatinine Ratio 23.0 H Glucose 266 H Calcium 8.6 Magnesium 1.6 PFSH Medical History Abnormal chest xray (~1979) Anemia Ankle pain Anticoagulated Asthma (~1959) Bronchiectasis (~2006) Cervical spine disease Chronic back pain Colon polyps (~2015) Degenerative joint disease of spine (~2001) Diabetes mellitus, type II (~2009) Eczema Fibromyalgia Foot pain Hoarseness Hyperlipidemia Hypertension Hypothyroidism Migraines (~1964) 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 Osteopenia Pneumonia Pneumonia Recurrent sinusitis (~1970) Restless leg syndrome Shoulder pain (~03/2018) Sleep apnea Wears glasses Surgical History Anesthesia History of carpal tunnel release History of cataract removal with insertion of prosthetic lens (~2014) History of section History of laminectomy (~2002) History of spinal fusion (~2012) History of thumb surgery Family History Father Stroke Mother Hypertension Brother Cerebral aneurysm Prostate cancer Diabetes mellitus Hypertension Stroke Brother Arthritis Hyperlipidemia Hypertension Sister History of kidney cancer Hypertension Grandfather Cancer Grandmother Cancer Other Family history non-contributory Social History household members: spouse Smoking Status: Never smoker alcohol intake: current Discharge Plan Discharge Plan Patient Disposition: Home Health Service Discharge orders & Medications Prescriptions: New ciprofloxacin HCl 750 mg tablet 750 mg PO BID 4 Days Qty: 8 0RF Rx Instructions: start evening of 06/12 Continued polyethylene glycol 3350 [Miralax] 119 GM powder 17 gm PO DAILY PRN (Reason: Constipation) Qty: 0 ondansetron HCl [Zofran] 4 mg tablet 4 mg PO Q8H PRN (Reason: nausea and vomiting) Qty: 30 1RF (DME) insulin syringe-needle U-100 [BD Insulin Syringe Ultra-Fine] 0.5 mL 31 gauge x 5/16 syringe See Rx Instructions .ROUTE .MEDSUPPLY Qty: 100 1RF Rx Instructions: Use once a day as directed losartan 50 mg tablet 50 mg PO DAILY Qty: 90 0RF metformin 1,000 mg tablet 1,000 mg PO BID Qty: 180 0RF (DME) verio reflect glucometer Qty: 1 0RF Rx Instructions: As directed Privigen 10 % solution 45 gram IV Q3W ferrous sulfate 325 mg (65 mg iron) tablet 325 mg PO BEDTIME spironolactone 50 mg tablet 50 mg PO DAILY tizanidine 4 mg capsule 4 mg PO QID PRN (Reason: Muscle Spasm) cholecalciferol (vitamin D3) 2,000 unit tablet 2,000 unit PO DAILY albuterol sulfate 90 mcg/actuation HFA aerosol inhaler 2 puff INHALATION Q4-6H PRN (Reason: Shortness Of Breath) lansoprazole [Prevacid 24Hr] 15 mg Capsule,Delayed Release(Dr/Ec) 30 mg PO BID apixaban 5 mg (74 tabs) tablets,dose pack 5 mg PO BID Qty: 74 0RF fentanyl 25 mcg/hr patch 72 hour 1 patch transdermal Q72H PRN (Reason: pain (scale score 1-3)) Qty: 5 0RF Label Comments: placed today at home omega-3 fatty acids Capsule 1,000 mg PO DAILY docusate sodium 100 mg Tablet 200 mg PO DAILY metoprolol succinate 25 mg Tablet Extended Release 24 Hr 12.5 mg PO BID sodium chloride 3 % Solution For Nebulization 3 ml INHALATION BID Rx Instructions: use w/ nebulizer 2 x daily montelukast [Singulair] 10 mg Tablet 10 mg PO BEDTIME Zyrtec 10 mg Capsule 10 mg PO DAILY atorvastatin 40 mg Tablet 40 mg PO BEDTIME ipratropium-albuterol 0.5 mg-3 mg(2.5 mg base)/3 mL Solution For Nebulization 3 ml INHALATION BID Rx Instructions: and every 4 hours as needed levothyroxine 75 mcg Tablet 75 mcg PO QAM nortriptyline 25 mg Capsule 25 mg PO BEDTIME epinephrine [EpiPen] 0.3 mg/0.3 mL Auto-Injector 0.3 mg IM Q5-15M PRN (Reason: Allergic Reaction) Rx Instructions: do not exceed 3 doses per episode Spiriva with HandiHaler 18 mcg Capsule, W/Inhalation Device 1 cap INHALATION DAILY Rx Instructions: puncture 1 cap using device; one dose = 2 inhalations insulin glargine 100 unit/mL solution 30 unit SUBCUT QAM furosemide [Lasix] 20 mg tablet 20 mg PO QAM insulin lispro [Humalog KwikPen Insulin] 100 unit/mL insulin pen 4 - 8 unit SUBCUT TID pramipexole 0.5 mg tablet 0.5 mg PO BEDTIME fluticasone propion-salmeterol [Wixela Inhub] 500-50 mcg/dose Blister With Device 1 inh INHALATION BID duloxetine 30 mg Capsule,Delayed Release(Dr/Ec) 30 mg PO DAILY oxycodone-acetaminophen [Percocet] 10-325 mg Tablet 1 tab PO Q4H PRN (Reason: Pain (Scale Score 4-6)) Mucinex 1,200 mg Tablet Extended Release 12hr 1,200 mg PO BID pregabalin 75 mg capsule 75 mg PO DAILY clonidine HCl 0.1 mg tablet 0.05 mg PO BID prednisone 5 mg tablet 5 mg PO DAILY ozkppsaaof-vonecatcrkgag-fkxe 50-325-40 mg Tablet 1 tab PO Q6H PRN (Reason: Migraine Headache) oxycodone 5 mg Capsule 5 mg PO Q6H PRN (Reason: Pain (Scale Score 7-10)) oxymetazoline 0.05 % Drops 1 drp INTRANASAL BID PRN (Reason: Congestion) Fasenra 30 mg/mL Syringe 30 mg SUBCUT Q8W Discontinued azithromycin 250 mg tablet 250 mg PO 3XW Rx Instructions: sunday, sun, sun Follow up/Referrals: Eric Oscar MD [Non-Staff] - 06/13/22 (already has appt) Karin Porter MD [Primary Care Provider] - 2 Weeks Visit Report/Discharge Packet Instructions: Pneumonia-Adult, Sepsis, DI for Hypoxia Stand Alone Forms: Patient Portal/API, Stroke Signs & Symptoms Discharge Data Primary Care Provider: Karin Porter
--- NOTE | 2022-06-12 13:47 | PC.NURSE ---
Pt dressed independently and HHA took IV out. Reviewed d/c paperwork with pt and spouse, who is a retired PA. Went over sepsis, pnemonia, stroke education and new abx, which she stated she has taken before, and they can p/u at the [facility] here in [place]. Pt and spouse had no further questions or concerns at this time. Pt was taken off hospital's O2 and hooked up to personal concentrator at 2L. Pt left unit with all belongings and escorted via wheelchair with HHA to PO @ 3239.
--- NOTE | 2022-06-12 14:30 | CM.DPC ---
DCP Cont: Patient has discharge orders for home today. Called [facility] and spoke to Romina. Confirmed that patient is currently getting RN, and P.T, she did have [facility], but no more visits. Patient is also doing telehealth. Will fax over resumption orders and DC Summary. P: Patient is discharging home today with resumption of [facility]. Veronica Colon RN/Deburr Technician
[2022-06-15 16:46] LABS: Fractionated Inspired Oxygen 100; HCO3 ABG 25 mmol/L (23-27); Oxygen Saturation ABG 86 % (95-100); PCO2 ABG 38.1 mmHg (35-45); PO2 ABG 51 mmHg (80-100); TCO2 ABG 26 mmol/L (23-27); pH ABG 7.42 (7.35-7.45)
== END 2022-06-12 13:40 | disposition home health service (06) | DRG 871 ==
LOC: ED 11:16 → AC 12:17 → ICU 13:49
PROVIDERS: Internal Medicine; Neuromusculoskeletal Medicine, Sports Medicine; Nurse Practitioner Family; Admitting Provider Student in an Organized Health Care Education/Training Program; Emergency Provider Emergency Medicine; Family Provider Internal Medicine Infectious Disease; PCP Internal Medicine; Referring Provider Emergency Medicine; Visit Provider Student in an Organized Health Care Education/Training Program
DX: A41.9 Sepsis, unspecified organism (principal); I50.33 Acute on chronic diastolic (congestive) heart failure; J15.1 Pneumonia due to Pseudomonas; J96.21 Acute and chronic respiratory failure with hypoxia; D81.89 Other combined immunodeficiencies; B37.0 Candidal stomatitis; J45.909 Unspecified asthma, uncomplicated; J47.9 Bronchiectasis, uncomplicated; E83.42 Hypomagnesemia; E11.9 Type 2 diabetes mellitus without complications; G25.81 Restless legs syndrome; R21 Rash and other nonspecific skin eruption; I87.2 Venous insufficiency (chronic) (peripheral); I11.0 Hypertensive heart disease with heart failure; D64.9 Anemia, unspecified; E03.9 Hypothyroidism, unspecified; E11.40 Type 2 diabetes mellitus with diabetic neuropathy, unspecified; Z79.52 Long term (current) use of systemic steroids; Z66 Do not resuscitate; Z79.84 Long term (current) use of oral hypoglycemic drugs; Z86.711 Personal history of pulmonary embolism; Z99.81 Dependence on supplemental oxygen; Z79.01 Long term (current) use of anticoagulants; Z79.4 Long term (current) use of insulin
CPT/HCPCS: 36415; 36592; 36600; 71045; 80048; 80053; 81001; 82550; 82805; 82962; 83036; 83605; 83735; 83880; 84145; 84443; 84484; 85025; 85610; 85730; 86140; 87040; 87070; 87077; 87147; 87186; 87205; 87633; 87797; 93005; 93010; 94640; 94660; 94667; 94760; 94762; 96365; 96367; 96368; 96375; 97162; 97166; 97530; 99285; 99291; 99292; A9270; J0692; J1200; J1815; J1885; J1940; J2543; J2930; J3475; J7613

== ENCOUNTER 2022-06-30 07:36 | Observation (INO) | payer OTHER, SELFPAY ==
[2022-06-03 13:14] VITALS: BMI 43.9
[2022-06-07 07:30] VITALS: PULSE 84; RESP 20; O2SAT 99
[2022-06-30] VITALS (41 sets, daily range): BP systolic 122–179; BP diastolic 52–107; PULSE 62–134; RESP 16–50; TEMP 36.2–36.6; O2SAT 92–100; BMI 43.0
--- NOTE | 2022-06-30 07:38 | ED_ITS ---
HPI - SOB/Dyspnea General Chief Complaint: Shortness of Breath/Dyspnea Stated Complaint: SOB, recent pneumonia Time Seen by Provider: 06/30/22 07:38 Source: patient, EMS and old records reviewed Mode of arrival: EMS Limitations: no limitations History of Present Illness HPI Narrative: This is a 72-year-old female history of chronic respiratory failure on 3-4 L oxygen, history of immunodeficiency getting IVIG, bronchiectasis, Pseudomonas pneumonia, chronic back pain, practice atrial fibrillation on Eliquis, CHF with increasing use and shortness of breath. Patient was recently admitted to [facility] and was discharged on the 10 of July. She received cefepime and completed her antibiotics outpatient with Ralf. Patient states she has been taking her Lasix only intermittently the past several days because she did not want to have to get up to urinate as frequently she gets incontinence. She stat es for the last 4 days she is had increasing shortness of breath particularly with exertion he had been getting up from her bed to move to a chair gets very short of breath and tachycardic. She has not been dropping her O2 sats but they have increased her oxygen up to 5 L. She denies fevers or chills. She states no cough currently she coughed up some clear sputum 3 or 4 days ago. She had an episode of chest pressure yesterday evening on the left without any radiation she states lasted a few minutes resolved and has not returned. She states at rest she has mild shortness of breath. No nausea, no vomiting. No diarrhea. She has chronic constipation but had a bowel movement today. She is noted a little bit increase in swelling in her lower extremities. 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 She normally takes 20 mg of Lasix daily and has been taking this only intermittently. She states her sugars have been well controlled she is an insulin-dependent diabetic. She denies any other medication changes currently she is on azithromycin Sunday, Sunday. Patient has been evaluated she says for trilogy in the past but states that she did not qualify her last hospitalizations. She does use a CPAP at home at night. She has been doing DuoNebs 3 times daily and finds them helpful. Allergies include Plaquenil, IV cefepime which causes itchiness but she did receive in the hospital and just got Benadryl with it and IV Phenergan. She is accompanied by her today. Related Data Home Medications Medication Instructions Recorded Confirmed polyethylene glycol 3350 17 17 gm PO DAILY PRN Constipation ##0 06/06/17 06/30/22 gram/dose oral powder (Miralax) albuterol sulfate 90 mcg/actuation 2 puff inhalation Q4-6H PRN 05/29/19 06/30/22 aerosol inhaler Shortness Of Breath cholecalciferol (vitamin D3) 50 2,000 unit PO DAILY 05/29/19 06/30/22 mcg (2,000 unit) tablet ferrous sulfate 325 mg (65 mg 325 mg PO BEDTIME 05/29/19 06/30/22 iron) tablet immune glob,gamm(IgG) 10 %-pro-IgA 45 gram IV Q3W 05/29/19 06/30/22 0 to 50 mcg/mL intravenous solution (Privigen) spironolactone 50 mg tablet 50 mg PO DAILY 05/29/19 06/30/22 tizanidine 4 mg capsule 4 mg PO QID PRN Muscle Spasm 05/29/19 06/30/22 sodium chloride 3 % for 3 ml inhalation BID 06/05/19 06/30/22 nebulization cetirizine 10 mg capsule (Zyrtec) 10 mg PO DAILY allergies 01/20/20 06/30/22 montelukast 10 mg tablet 10 mg PO BEDTIME 01/20/20 06/30/22 (Singulair) atorvastatin 40 mg tablet 40 mg PO BEDTIME 04/20/21 06/30/22 epinephrine 0.3 mg/0.3 mL 0.3 mg IM Q5-15M PRN Allergic 04/20/21 06/30/22 injection, auto-injector (EpiPen) Reaction insulin glargine 100 unit/mL 30 unit SUBCUT QAM 04/20/21 06/30/22 subcutaneous solution insulin lispro 100 unit/mL 4 - 8 unit SUBCUT TID 04/20/21 06/30/22 subcutaneous pen (Humalog KwikPen (U-100) Insulin) ipratropium 0.5 mg-albuterol 3 mg 3 ml inhalation BID 04/20/21 06/30/22 (2.5 mg base)/3 mL nebulization soln levothyroxine 75 mcg tablet 75 mcg PO QAM 04/20/21 06/30/22 nortriptyline 25 mg capsule 25 mg PO BEDTIME 04/20/21 06/30/22 tiotropium bromide 18 mcg capsule 1 cap inhalation DAILY 04/20/21 06/30/22 with inhalation device (Spiriva with HandiHaler) lansoprazole 15 mg capsule,delayed 30 mg PO BID 04/29/21 06/30/22 release (Prevacid 24Hr) duloxetine 30 mg capsule,delayed 30 mg PO DAILY 06/28/21 06/30/22 release fluticasone 500 mcg-salmeterol 50 1 inh inhalation BID 06/28/21 06/30/22 mcg/dose blistr powdr for inhalation (Wixela Inhub) guaifenesin 1,200 mg tablet, 1,200 mg PO BID 06/28/21 06/30/22 extended release 12 hr (Mucinex) oxycodone-acetaminophen 10 mg-325 1 tab PO Q4H PRN Pain (Scale Score 06/28/21 06/30/22 mg tablet (Percocet) 4-6) pramipexole 0.5 mg tablet 0.5 mg PO BEDTIME 06/28/21 06/30/22 docusate sodium 100 mg tablet 200 mg PO DAILY 04/24/22 06/30/22 metoprolol succinate 25 mg 12.5 mg PO BID 04/24/22 06/30/22 tablet,extended release 24 hr omega-3 fatty acids 1,000 mg PO DAILY 04/24/22 06/30/22 benralizumab 30 mg/mL subcutaneous 30 mg SUBCUT Q8W 06/03/22 06/30/22 syringe (Fasenra) [id number]-hogmdhtqmbgdj-bdwzomau 1 tab PO Q6H PRN Migraine Headache 06/03/22 06/30/22 50 mg-325 mg-40 mg tablet clonidine HCl 0.1 mg tablet 0.05 mg PO BID 06/03/22 06/30/22 oxycodone 5 mg capsule 5 mg PO Q6H PRN Pain (Scale Score 06/03/22 06/30/22 7-10) oxymetazoline 0.05 % nasal drops 1 drp intranasal BID PRN Congestion 06/03/22 06/30/22 prednisone 5 mg tablet 5 mg PO DAILY 06/03/22 06/30/22 Previous Rx's Medication Instructions Recorded ondansetron HCl 4 mg tablet 4 mg PO Q8H PRN nausea and 10/06/19 (Zofran) vomiting #30 tabs verio reflect glucometer #1 ea 01/28/20 insulin syringe-needle U-100 0.5 #100 ea 03/30/20 mL 31 gauge x 5/16 (BD Insulin Syringe Ultra-Fine) losartan 50 mg tablet 50 mg PO DAILY #90 tabs 08/05/20 metformin 1,000 mg tablet 1,000 mg PO BID #180 tabs 09/03/20 apixaban 5 mg (74 tabs) tablets in 5 mg PO BID #74 ea 05/01/21 a dose pack fentanyl 25 mcg/hr transdermal 1 patch transdermal Q72H PRN pain 02/05/22 patch (scale score 1-3) #5 ea hydrochlorothiazide 25 mg tablet 25 mg PO BID 30 days #60 tabs 07/01/22 pregabalin 75 mg capsule (Lyrica) 75 mg PO DAILY 30 days #30 caps 07/01/22 Allergies Allergy/AdvReac Type Severity Reaction Status Date / Time hydroxychloroquine Allergy Unknown Verified 06/30/22 07:52 [HYDROXYCHLOROQUINE] promethazine [From Phenergan] Allergy Agitated Verified 06/30/22 07:52 cefepime AdvReac Intermediate pruritis Verified 06/30/22 07:52 Review of Systems Review of Systems ROS Unobtainable: All systems reviewed & are unremarkable except as noted in HPI and below Patient History Medical History Abnormal chest xray (~1979) Anemia Ankle pain Anticoagulated Asthma (~1959) Bronchiectasis (~2006) Cervical spine disease Chronic back pain Colon polyps (~2015) Degenerative joint disease of spine (~2001) Diabetes mellitus, type II (~2009) Eczema Fibromyalgia Foot pain Hoarseness Hyperlipidemia Hypertension Hypothyroidism Migraines (~1964) 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 Osteopenia Pneumonia Pneumonia Recurrent sinusitis (~1970) Restless leg syndrome Shoulder pain (~03/2018) Sleep apnea Wears glasses Surgical History Anesthesia History of carpal tunnel release History of cataract removal with insertion of prosthetic lens (~2014) History of section History of laminectomy (~2002) History of spinal fusion (~2012) History of thumb surgery Family History Father Stroke Mother Hypertension Brother Cerebral aneurysm Prostate cancer Diabetes mellitus Hypertension Stroke Brother Arthritis Hyperlipidemia Hypertension Sister History of kidney cancer Hypertension Grandfather Cancer Grandmother Cancer Other Family history non-contributory Social History household members: spouse Smoking Status: Never smoker alcohol intake: current Smoking Status: Never smoker alcohol intake frequency: holidays/special occasions only Substance Use Type: does not use Exam Narrative Exam Narrative: GEN: Obese female, alert and oriented x 3, patient appears to be in mild distress. HEENT: Atraumatic, pupils are equal round reactive to light, extraocular movements are intact, nares are clear, there is no conjunctival pallor. Throat is clear without any exudates, erythema, tonsillar enlargement or uvular deviation HEART: Regular rate and rhythm without murmur, clicks, rubs. Pulses are equal in upper and lower extremities, patient has bilateral lower extremity edema 1+. She is some slight erythema to bilateral calves inpatient state this is her usual. LUNGS:Lungs breath sounds equal bilaterally, rales, crackles, chest moves symmetrically, no tachypnea. No accessory muscle use. Patient is on 4 L in the room at 98%. ABD:bowel sounds normal, soft, non-tender, no guarding, rebound, rigidity, no masses noted, no hepatosplenomegaly :No CVA tenderness MSCL: Non-tender, no muscle atrophy, muscles strength 5/5 upper and lower extremities, full range of motion, normal gait NEURO:CN 2-12 intact, sensation normal Initial Vital Signs Initial Vital Signs: Vital Signs Temperature 97.1 F L 06/30/22 07:35 Pulse Rate 78 06/30/22 07:35 Respiratory Rate 24 06/30/22 07:35 Blood Pressure 125/71 06/30/22 07:35 Pulse Oximetry 99 06/30/22 07:35 Oxygen Delivery Method Nasal Cannula 06/30/22 07:35 Oxygen Flow Rate 3 06/30/22 07:35 Course Orders Ordered: Discontinued Medications Acetaminophen (Acetaminophen 325 Mg Tablet) 650 mg PO Q6H PRN PRN Reason: Fever/Mild Pain (1-3) Last Admin: 07/01/22 09:46 Dose: 650 mg Documented By: Admin: 06/30/22 16:03 Dose: 650 mg Documented By: TAWNY Al Hydrox/Mg Hydrox/Simethicone (Mag Hydrox/Alum/Simeth 30 Ml Udc) 30 ml PO Q6HR PRN PRN Reason: Dyspepsia Albuterol (Albuterol 2.5 Mg/3 Ml Neb (Adult)) 2.5 mg INH Q4H PRN PRN Reason: Shortness Of Breath Albuterol (Albuterol 2.5 Mg/3 Ml Neb (Adult)) 2.5 mg INH Q4HRWA [facility] Last Admin: 06/30/22 20:03 Dose: Not Given Documented By: Admin: 06/30/22 20:00 Dose: 2.5 mg Documented By: MR Albuterol (Albuterol 2.5 Mg/3 Ml Neb (Adult)) 2.5 mg INH Q2H PRN PRN Reason: Shortness Of Breath Last Admin: 07/01/22 09:08 Dose: 2.5 mg Documented By: Admin: 07/01/22 04:37 Dose: 2.5 mg Documented By: MR Albuterol/Ipratropium (Albuterol/Ipratropium 3 Ml Ampul) 3 ml INH [id number] [facility] Last Admin: 07/01/22 12:36 Dose: 3 ml Documented By: MARIANGEL Apixaban (Apixaban 5 Mg Tablet) 5 mg PO BID [facility] Last Admin: 07/01/22 09:45 Dose: 5 mg Documented By: Admin: 06/30/22 20:08 Dose: 5 mg Documented By: Atorvastatin Calcium (Atorvastatin 20 Mg Tablet) 40 mg PO BEDTIME [facility] Last Admin: 06/30/22 20:09 Dose: 40 mg Documented By: MS Budesonide (Budesonide 0.5 Mg/2 Ml Neb) 0.5 mg INH RTBID [facility] Last Admin: 07/01/22 12:35 Dose: 0.5 mg Documented By: Admin: 07/01/22 09:08 Dose: 0.5 mg Documented By: Admin: 06/30/22 20:04 Dose: 0.5 mg Documented By: Calcium Carbonate (Calcium Carbonate 500 Mg Tab) 1,000 mg PO Q4HR PRN PRN Reason: Dyspepsia Dextrose (Dextrose 50 % In Water 25 Gm/50 Ml Syringe) 25 gm IV PRN PRN; Protocol PRN Reason: Hypoglycemia Duloxetine HCl (Duloxetine 30 Mg Capsule) 30 mg PO DAILY [facility] Last Admin: 07/01/22 09:45 Dose: 30 mg Documented By: SALVADOR Fentanyl (Fentanyl 25 Mcg/Patch) 25 mcg TOP Q72H PRN PRN Reason: pain (scale score 1-3) Last Admin: 06/30/22 17:50 Dose: 25 mcg Documented By: TAWNY Ferrous Sulfate (Ferrous Sulfate 325 Mg Tablet) 325 mg PO BEDTIME [facility] Last Admin: 06/30/22 20:09 Dose: 325 mg Documented By: Furosemide (Furosemide 40 Mg/4 Ml Vial) 40 mg IV NOW ONE Stop: 06/30/22 08:06 Last Admin: 06/30/22 08:43 Dose: 40 mg Documented By: MAJOR Furosemide (Furosemide 40 Mg/4 Ml Vial) 40 mg IV 0800,1600 [facility] Last Admin: 07/01/22 09:45 Dose: 40 mg Documented By: Admin: 06/30/22 16:03 Dose: 40 mg Documented By: TAWNY Guaifenesin (Guaifenesin Er 600 Mg Tab) 1,200 mg PO BID [facility] Last Admin: 07/01/22 12:20 Dose: 1,200 mg Documented By: SALVADOR Insulin Glargine (Insulin Glargine 100 Unit/Ml 3ml Pen) 30 unit SUBCUT DAILY [facility] Last Admin: 07/01/22 09:56 Dose: 30 unit Documented By: SALVADOR Co-signed By: JOELLE Insulin Human Lispro (Insulin Lispro 100 Unit/Ml 3ml Vial) 0 unit SUBCUT ACHS [facility]; Protocol Last Admin: 07/01/22 12:21 Dose: 1 unit Documented By: SALVADOR Co-signed By: (2) Admin: 07/01/22 09:55 Dose: 3 unit Documented By: SALVADOR Co-signed By: JOELLE Admin: 06/30/22 19:59 Dose: Not Given Documented By: Ipratropium [place] (Ipratropium 0.5 Mg/2.5 Ml Neb) 0.5 mg INH Q4HRWA [facility] Last Admin: 06/30/22 20:04 Dose: 0.5 mg Documented By: Admin: 06/30/22 20:03 Dose: Not Given Documented By: MR Ipratropium [place] (Ipratropium 0.5 Mg/2.5 Ml Neb) 0.5 mg INH Q2H PRN PRN Reason: Shortness Of Breath Last Admin: 07/01/22 04:37 Dose: 0.5 mg Documented By: Levothyroxine Sodium (Levothyroxine 75 Mcg Tablet) 75 mcg PO 0600 [facility] Last Admin: 07/01/22 05:54 Dose: 75 mcg Documented By: Loratadine (Loratadine 10 Mg Tablet) 10 mg PO DAILY [facility] Last Admin: 07/01/22 09:46 Dose: 10 mg Documented By: SALVADOR Losartan Potassium (Losartan 50 Mg Tablet) 50 mg PO DAILY [facility] Last Admin: 07/01/22 09:46 Dose: 50 mg Documented By: SALVADOR Metoprolol Succinate (Metoprolol Er 25 Mg Tablet) 12.5 mg PO BID [facility] Last Admin: 07/01/22 09:45 Dose: 12.5 mg Documented By: Admin: 06/30/22 20:08 Dose: 12.5 mg Documented By: Montelukast Sodium (Montelukast 10 Mg Tablet) 10 mg PO BEDTIME [facility] Last Admin: 06/30/22 20:07 Dose: 10 mg Documented By: Naloxone HCl (Naloxone 0.4 Mg/Ml Vial) 0.2 mg IV Q2MIN PRN PRN Reason: Opiate Reversal Nortriptyline HCl (Nortriptyline Hcl 25 Mg Capsule) 25 mg PO BEDTIME [facility] Last Admin: 06/30/22 20:07 Dose: 25 mg Documented By: Oxycodone HCl (Oxycodone Ir 5 Mg Tablet) 5 mg PO Q6H PRN PRN Reason: Pain (Scale Score 7-10) Last Admin: 07/01/22 09:44 Dose: 5 mg Documented By: Admin: 06/30/22 20:07 Dose: 5 mg Documented By: Pramipexole Dihydrochloride (Pramipexole 0.25 Mg Tablet) 0.5 mg PO BEDTIME [facility] Last Admin: 06/30/22 20:09 Dose: 0.5 mg Documented By: Prednisone (Prednisone 5 Mg Tablet) 5 mg PO DAILY [facility] Last Admin: 07/01/22 09:46 Dose: 5 mg Documented By: SALVADOR Pregabalin (Pregabalin 75 Mg Capsule) 75 mg PO DAILY [facility] Last Admin: 07/01/22 09:45 Dose: 75 mg Documented By: SALVADOR Sennosides (Sennosides 8.6 Mg Tablet) 17.2 mg PO BEDTIME [facility] Last Admin: 06/30/22 19:53 Dose: Not Given Documented By: Spironolactone (Spironolactone 25 Mg Tablet) 50 mg PO DAILY [facility] Last Admin: 07/01/22 09:46 Dose: 50 mg Documented By: SALVADOR Tizanidine HCl (Tizanidine 4 Mg Tablet) 4 mg PO QID PRN PRN Reason: Muscle Spasm Last Admin: 07/01/22 09:44 Dose: 4 mg Documented By: Admin: 06/30/22 20:09 Dose: 4 mg Documented By: Vital Signs Vital signs: Vital Signs - 8 hr 06/30/22 07:35 06/30/22 07:40 06/30/22 07:41 Temperature 97.1 F L Pulse Rate 78 78 Respiratory Rate 24 Blood Pressure 125/71 125/71 Pulse Oximetry 99 99 Oxygen Delivery Method Nasal Cannula Oxygen Flow Rate 3 06/30/22 07:41 06/30/22 07:45 06/30/22 08:00 Temperature Pulse Rate 78 92 H Respiratory Rate 23 Blood Pressure 172/77 H Pulse Oximetry 100 99 Oxygen Delivery Method Nasal Cannula Oxygen Flow Rate 2 06/30/22 08:00 06/30/22 08:15 06/30/22 08:30 Temperature Pulse Rate 66 67 Respiratory Rate 31 H 34 H Blood Pressure 167/100 H Pulse Oximetry 99 100 Oxygen Delivery Method Oxygen Flow Rate 06/30/22 08:30 06/30/22 08:45 06/30/22 09:00 Temperature Pulse Rate 65 70 64 Respiratory Rate 29 H 28 H 28 H Blood Pressure Pulse Oximetry 99 100 99 Oxygen Delivery Method Nasal Cannula Nasal Cannula Oxygen Flow Rate 2 2 06/30/22 09:01 06/30/22 09:01 06/30/22 09:15 Temperature Pulse Rate 65 77 Respiratory Rate 30 H 29 H Blood Pressure 179/72 H Pulse Oximetry 100 98 Oxygen Delivery Method Oxygen Flow Rate 06/30/22 09:30 06/30/22 09:30 06/30/22 09:45 Temperature Pulse Rate 69 72 Respiratory Rate 27 H 19 Blood Pressure 161/71 H Pulse Oximetry 95 93 Oxygen Delivery Method Nasal Cannula Oxygen Flow Rate 2 MDM - SOB/Dyspnea Lab Data 06/30/22 17:38 06/30/22 17:38 Labs: Lab Results 06/30/22 06/30/22 06/30/22 Range/Units 07:42 07:42 07:42 WBC 8.6 (4.5-11.0) X10^3/uL RBC 4.11 (4.0-5.2) X10^6/uL Hgb 10.4 L (12.0-16.0) g/dL Hct 32.7 L (36-46) % MCV 79.5 L (80-100) fL MCH 25.2 L (26-34) PG MCHC 31.7 (30-36) % RDW 20.7 H (11.6-14.8) % Plt Count 593 H (150-400) X10^3/uL Neut % (Auto) 71.0 (50-75) % Lymph % (Auto) 18.0 L (25-40) % [place] % (Auto) 10.3 (3-14) % Eos % (Auto) 0.2 L (2-4) % Baso % (Auto) 0.5 (0-2) % Neut # (Auto) 6100 (1098-5650) /uL Lymph # (Auto) 1600 (2899-1196) /uL [place] # (Auto) 900 (0-900) /uL Eos # (Auto) 0 (0-450) /uL Baso # (Auto) 0 (0-100) /uL RBC Morphology See below Poikilocytosis 1+ H Anisocytosis 1+ H PT 15.8 H (10.1-12.7) SECONDS INR 1.4 H (0.9-1.3) APTT 37 H (26-36) SECONDS Sodium 138 (137-145) mmol/L Potassium 4.3 (3.4-5.1) mmol/L Chloride 99 (98-107) mmol/L Carbon Dioxide 30 (22-32) mmol/L BUN 8 (7-17) mg/dL Creatinine 0.60 (0.52-1.04) mg/dL Estimated GFR > 60 (>60) mL/min BUN/Creatinine Ratio 13.3 (6-22) Glucose 159 H (80-110) mg/dL Lactate (0.7-2.1) mmol/L Calcium 9.3 (8.4-10.2) mg/dL Total Bilirubin 0.4 (0.2-1.3) mg/dL AST 25 (14-36) IU/L ALT 22 (<35) IU/L Alkaline Phosphatase 85 (38-126) U/L Total Creatine Kinase 37 (30-135) U/L CK-MB (CK-2) TNP CK-MB (CK-2) Rel Index TNP Troponin I < 0.012 (0.01-0.034) ng/mL NT-Pro-B Natriuret Pep 2660 H (<125) pg/mL Total Protein 8.0 (6.3-8.2) g/dL Albumin 4.2 (3.5-5.0) g/dL Globulin 3.8 (1.7-4.1) g/dL Albumin/Globulin Ratio 1.1 (1.0-2.8) Lipase 58 (23-300) U/L Procalcitonin 0.05 (<0.5) ng/mL Chlamy pneumoniae PCR (Not Detect) Adenovirus (PCR) (Not Detect) B. pertussis DNA (PCR) (Not Detecte) B.parapertussis DNA PCR (Not Detecte) Coronavirus OC43 (PCR) (Not Detect) Coronavirus HKU1 (PCR) (Not Detect) Coronavirus 229E (PCR) (Not Detect) SARS-CoV-2 (PCR) (Not Detecte) Coronavirus NL63 (PCR) (Not Detect) Human Metapneumovir PCR (Not Detect) Influenza Type A (PCR) (Not Detect) Influenza Type B (PCR) (Not Detect) M. pneumoniae (PCR) (Not Detect) Parainfluenza 1 (PCR) (Not Detect) Parainfluenza 2 (PCR) (Not Detect) Parainfluenza 3 (PCR) (Not Detect) Parainfluenza 4 (PCR) (Not Detect) RSV (PCR) (Not Detect) Entero/Rhino (PCR) (Not Detect) 0306/30/22 06/30/22 Range/Units 07:42 08:01 09:45 WBC (4.5-11.0) X10^3/uL RBC (4.0-5.2) X10^6/uL Hgb (12.0-16.0) g/dL Hct (36-46) % MCV (80-100) fL MCH (26-34) PG MCHC (30-36) % RDW (11.6-14.8) % Plt Count (150-400) X10^3/uL Neut % (Auto) (50-75) % Lymph % (Auto) (25-40) % [place] % (Auto) (3-14) % Eos % (Auto) (2-4) % Baso % (Auto) (0-2) % Neut # (Auto) (7197-0992) /uL Lymph # (Auto) (8663-6843) /uL [place] # (Auto) (0-900) /uL Eos # (Auto) (0-450) /uL Baso # (Auto) (0-100) /uL RBC Morphology Poikilocytosis Anisocytosis PT (10.1-12.7) SECONDS INR (0.9-1.3) APTT (26-36) SECONDS Sodium (137-145) mmol/L Potassium (3.4-5.1) mmol/L Chloride (98-107) mmol/L Carbon Dioxide (22-32) mmol/L BUN (7-17) mg/dL Creatinine (0.52-1.04) mg/dL Estimated GFR (>60) mL/min BUN/Creatinine Ratio (6-22) Glucose (80-110) mg/dL Lactate 2.4 H 1.4 (0.7-2.1) mmol/L Calcium (8.4-10.2) mg/dL Total Bilirubin (0.2-1.3) mg/dL AST (14-36) IU/L ALT (<35) IU/L Alkaline Phosphatase (38-126) U/L Total Creatine Kinase (30-135) U/L CK-MB (CK-2) CK-MB (CK-2) Rel Index Troponin I (0.01-0.034) ng/mL NT-Pro-B Natriuret Pep (<125) pg/mL Total Protein (6.3-8.2) g/dL Albumin (3.5-5.0) g/dL Globulin (1.7-4.1) g/dL Albumin/Globulin Ratio (1.0-2.8) Lipase (23-300) U/L Procalcitonin (<0.5) ng/mL Chlamy pneumoniae PCR Not detected (Not Detect) Adenovirus (PCR) Not detected (Not Detect) B. pertussis DNA (PCR) Not detected (Not Detecte) B.parapertussis DNA PCR Not detected (Not Detecte) Coronavirus OC43 (PCR) Not detected (Not Detect) Coronavirus HKU1 (PCR) Not detected (Not Detect) Coronavirus 229E (PCR) Not detected (Not Detect) SARS-CoV-2 (PCR) Not detected (Not Detecte) Coronavirus NL63 (PCR) Not detected (Not Detect) Human Metapneumovir PCR Not detected (Not Detect) Influenza Type A (PCR) Not detected (Not Detect) Influenza Type B (PCR) Not detected (Not Detect) M. pneumoniae (PCR) Not detected (Not Detect) Parainfluenza 1 (PCR) Not detected (Not Detect) Parainfluenza 2 (PCR) Not detected (Not Detect) Parainfluenza 3 (PCR) Not detected (Not Detect) Parainfluenza 4 (PCR) Not detected (Not Detect) RSV (PCR) Not detected (Not Detect) Entero/Rhino (PCR) Not detected (Not Detect) Imaging Data Chest x-ray: Radiologist's Impression: [address] [address] XRay Report Signed Patient: Radha Zavaleta MR#: [id number] : 1950 Acct:[id number] Age/Sex: 72 / F Date of Service: 06/30/22 Loc: ED Accession Number: [id number] ?? Procedure: XR chest 1V Ordering Provider: Joanne Mckoy D.O. PROCEDURE:? XR CHEST 1V ? INDICATIONS:? chest pain/sob ? TECHNIQUE:? One view of the chest was acquired.? ? COMPARISON:? [facility], CT, CT CHEST WITHOUT CONTRAST, 05/11/2022, 13:52.? [facility], CR, XR CHEST 1V, 06/06/2022, 7:54. ? FINDINGS:? ? Surgical changes and devices:? None.? ? Lungs and pleura:? Patchy bibasilar densities consistent with patchy atelectasis.? No pleural effusions or pneumothorax.? ? Mediastinum:? Mediastinal contours appear normal.? Mild cardiomegaly. ? Bones and chest wall:? No suspicious bony lesions.? Overlying soft tissues appear unremarkable.? ? IMPRESSION:? Patchy bilateral atelectasis. ? ? Dictated by: Ryan Rolle M.D. on 06/30/2022 at 8:18 ? ? Approved by: Ryan Rolle M.D. on 06/30/2022 at 8:21?? ECG Data Attestation: I personally reviewed and interpreted this ECG as follows: Prior ECG tracings: available for review Interpretation: Sinus rhythm rate of 60 6p are 154 QRS is 76 QTC of 469. No acute ST elevation nonspecific change. MDM Narrative Medical decision making narrative: This is a 72-year-old female who is fragile acute on chronic hypoxic respiratory failure with history of asthma, bronchiectasis, Pseudomonas pneumonia and CHF for history with immune deficiency. Patient has not had increasing infectious symptoms she was discharged on the 12 June for pneumonia completed her antibiotics but has been taking her Lasix only intermittently suspect she has a component CHF. Patient's lungs are fairly clear but she does have some edema bilaterally. She does not have significant increase in her O2 requirements here in the department. Plan for labs, CBC, CMP, lipase, troponin, BNP, procalcitonin, lactate and cultures, chest x-ray, EKG. Patient chest x-ray actually appears improved compared to most recent available in our system. She does have some right-sided change though. Hemoglobin 10 today she maybe little hemoconcentrated she is a microcytic anemia was 8. INR is 1.4, CMP shows normal renal function electrolytes glucose of 159 initial lactate was 2 4 down to 1 4 with only intervention oxygen at 4 L and Lasix. CMP is otherwise negative troponins negative BNP is 2600. She was 3300 on the so not quite as high but I suspect her today to be more fluid overloaded. Her procalcitonin is negative. Patient's EKG does not show any specific change. Patient had an echo back in April had moderate LVH EF of 60% normal wall motion at that time but left atrial severely dilated and trace mitral regurg. Discussed with patient about observation versus home. She is not having increasing O2 requirements but is somewhat fragile. Patient did try to get up to the bedside commode got very tachypneic dropped her sats to 86 but was only on 2-3 L. She would likely benefit for some more diuresis. I spoke with Dr. Cervantes who accepts for observation. Discharge Plan Departure Patient Disposition: Admitted as Observation Clinical Impression: Acute on chronic diastolic CHF (congestive heart failure), Chronic respiratory failure with hypoxia Admit Date/Time: 06/30/22 11:01 Admit Provider: Jorge Cervantes
--- NOTE | 2022-06-30 07:50 | DI.RAD.S_ITS ---
PROCEDURE: XR CHEST 1V INDICATIONS: chest pain/sob TECHNIQUE: One view of the chest was acquired. COMPARISON: [facility], CT, CT CHEST WITHOUT CONTRAST, 05/11/2022, 13:52. [facility], CR, XR CHEST 1V, 06/06/2022, 7:54. FINDINGS: Surgical changes and devices: None. Lungs and pleura: Patchy bibasilar densities consistent with patchy atelectasis. No pleural effusions or pneumothorax. Mediastinum: Mediastinal contours appear normal. Mild cardiomegaly. Bones and chest wall: No suspicious bony lesions. Overlying soft tissues appear unremarkable. IMPRESSION: Patchy bilateral atelectasis. Dictated by: Ryan Rolle M.D. on 06/30/2022 at 8:18 Approved by: Ryan Rolle M.D. on 06/30/2022 at 8:21
[2022-06-30 08:01] LABS: Add Manual Diff / Slide Review NO; Basophils Absolute Auto 0 /uL (0-100); Basophils Percent Auto 0.5 % (0-2); Eosinophils Absolute Auto 0 /uL (0-450); Eosinophils Percent Auto 0.2 % (2-4); Hematocrit 32.7 % (36-46); Hemoglobin 10.4 g/dL (12.0-16.0); INR 1.4 (0.9-1.3); Lymphocytes Absolute Auto 1600 /uL (1100-4500); Mean Corpuscular HGB Conc 31.7 % (30-36); Mean Corpuscular Hemoglobin 25.2 PG (26-34); Mean Corpuscular Volume 79.5 fL (80-100); Monocytes Absolute Auto 900 /uL (0-900); Monocytes Percent Auto 10.3 % (3-14); Neutrophils Absolute Auto 6100 /uL (1500-7000); Platelet Count 593 X10^3/uL (150-400); Prothrombin Time 15.8 SECONDS (10.1-12.7); Red Blood Cell Count 4.11 X10^6/uL (4.0-5.2); Red Cell Distribution Width 20.7 % (11.6-14.8); White Blood Cell Count 8.6 X10^3/uL (4.5-11.0)
[2022-06-30 08:04] LABS: PTT Partial Thromboplastin Tim 37 SECONDS (26-36)
[2022-06-30 08:06] LABS: Alanine Aminotransferase 22 IU/L (<35); Albumin 4.2 g/dL (3.5-5.0); Albumin Globulin Ratio 1.1 (1.0-2.8); Alkaline Phosphatase 85 U/L (38-126); Aspartate Aminotransferase 25 IU/L (14-36); BUN Creatinine Ratio 13.3 (6-22); Bilirubin Total 0.4 mg/dL (0.2-1.3); Blood Urea Nitrogen 8 mg/dL (7-17); Calcium 9.3 mg/dL (8.4-10.2); Carbon Dioxide 30 mmol/L (22-32); Chloride 99 mmol/L (98-107); Creatine Kinase 37 U/L (30-135); Estimated Glomerular Filt Rate > 60 mL/min (>60); Globulin 3.8 g/dL (1.7-4.1); Glucose 159 mg/dL (80-110); HEMOLYSIS < 15 (0-50); Lipase 58 U/L (23-300); Potassium 4.3 mmol/L (3.4-5.1); Sodium 138 mmol/L (137-145)
[2022-06-30 08:07] LABS: Lactate (Lactic Acid) 2.4 mmol/L (0.7-2.1)
[2022-06-30 08:15] LABS: NT-proBNP (BNP-Adult 18+) 2660 pg/mL (<125)
[2022-06-30 08:23] LABS: Procalcitonin 0.05 ng/mL (<0.5)
[2022-06-30 08:30] LABS: Anisocytosis 1+; Poikilocytosis 1+
[2022-06-30 08:34] LABS: Troponin I < 0.012 ng/mL (0.01-0.034)
[2022-06-30] MEDS: FUROSEMIDE 40 MG/4 ML VIAL IV ×2 (08:43→16:03)
--- NOTE | 2022-06-30 09:19 | PC.NURSE ---
Pt reports intermittent incontinence at baseline, has used Purewick in the past, Purewick placed on Low Continuous Suction.
[2022-06-30 09:38] LABS: Adenovirus Not Detected (Not Detect); B. parapertussis Not Detected (Not Detecte); Bordetella pertussis Not Detected (Not Detecte); Chlamydophila pneumoniae Not Detected (Not Detect); Coronavirus 229E Not Detected (Not Detect); Coronavirus HKU1 Not Detected (Not Detect); Coronavirus NL 63 Not Detected (Not Detect); Coronavirus OC43 Not Detected (Not Detect); Human Metapneumovirus Not Detected (Not Detect); Human Rhinovirus/Enterovirus Not Detected (Not Detect); Influenza A Not Detected (Not Detect); Influenza B Not Detected (Not Detect); Mycoplasma pneumoniae Not Detected (Not Detect); Parainfluenza Virus 1 Not Detected (Not Detect); Parainfluenza Virus 2 Not Detected (Not Detect); Parainfluenza Virus 3 Not Detected (Not Detect); Parainfluenza Virus 4 Not Detected (Not Detect); Respiratory Syncytial Virus Not Detected (Not Detect); SARS- CoV-2 Not Detected (Not Detecte)
[2022-06-30 09:56] LABS: Reflexed Lactate in 2 Hours Y
[2022-06-30 10:02] LABS: Lactate (Lactic Acid) 1.4 mmol/L (0.7-2.1)
--- NOTE | 2022-06-30 11:18 | PC.NURSE ---
Assisted pt to bedside commode: pt reports SOB, fatigued, breathing labored. Pt initially desat to 86%, increased oxygen to 4L NC while pt up. HR 90-100's. Dr Mckoy aware.
--- NOTE | 2022-06-30 15:19 | P.HP_ITS ---
History of Present Illness History of Present Illness Date Patient Seen: 06/30/22 Time Patient Seen: 15:20 Chief complaint: SOB, recent pneumonia Narrative: The patient is a 72-year-old female with a past medical history of chronic hypoxic respiratory failure on 3-4 L of oxygen, immunodeficiency pneumonia, atrial fibrillation heart failure. She presents with progressive dyspnea, orthopnea and some leg edema over the last 4-5 days. This follows missing several doses of her Lasix due to concern of urinary urgency while performing activities of daily living. She presented to the ED today with edema and responded to Lasix. She pneumonia and notes that she gone home about 2 weeks ago and had done pretty well until the last several days. The patient responds to Lasix in the emergency department. She did have limited left-sided chest pain without associated nausea, or diaphoresis last night. This lasted less than a 1/2 minute. She denies recent fevers, or chills. She does have a chronic cough which is mostly been nonproductive. Occasionally she brings up some melchor phlegm. Patient History Medical History Abnormal chest xray (~1979) Anemia Ankle pain Anticoagulated Asthma (~1959) Bronchiectasis (~2006) Cervical spine disease Chronic back pain Colon polyps (~2015) Degenerative joint disease of spine (~2001) Diabetes mellitus, type II (~2009) Eczema Fibromyalgia Foot pain Hoarseness Hyperlipidemia Hypertension Hypothyroidism Migraines (~1964) 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 Osteopenia Pneumonia Pneumonia Recurrent sinusitis (~1970) Restless leg syndrome Shoulder pain (~03/2018) Sleep apnea Wears glasses Surgical History Anesthesia History of carpal tunnel release History of cataract removal with insertion of prosthetic lens (~2014) History of section History of laminectomy (~2002) History of spinal fusion (~2012) History of thumb surgery Family & Social History Family History Father Stroke Mother Hypertension Brother Cerebral aneurysm Prostate cancer Diabetes mellitus Hypertension Stroke Brother Arthritis Hyperlipidemia Hypertension Sister History of kidney cancer Hypertension Grandfather Cancer Grandmother Cancer Other Family history non-contributory Social History: household members spouse Prior Living Arrangements House Safety & Behavioral: Feels Safe in Current Yes Environment Been Physically Hurt or No Threatened By a Person Tobacco & Substance use: Smoking Status Never smoker alcohol intake current alcohol intake frequency holiday/special occasion Substance Use Type does not use Meds Home Medications and Allergies Home Medications Medication Instructions Recorded Confirmed Type polyethylene glycol 3350 17 17 gm PO DAILY PRN Constipation ##0 06/06/17 06/30/22 History gram/dose oral powder (Miralax) albuterol sulfate 90 mcg/actuation 2 puff inhalation Q4-6H PRN 05/29/19 06/30/22 History aerosol inhaler Shortness Of Breath cholecalciferol (vitamin D3) 50 2,000 unit PO DAILY 05/29/19 06/30/22 History mcg (2,000 unit) tablet ferrous sulfate 325 mg (65 mg 325 mg PO BEDTIME 05/29/19 06/30/22 History iron) tablet immune glob,gamm(IgG) 10 %-pro-IgA 45 gram IV Q3W 05/29/19 06/03/22 History 0 to 50 mcg/mL intravenous solution (Privigen) spironolactone 50 mg tablet 50 mg PO DAILY 05/29/19 06/30/22 History tizanidine 4 mg capsule 4 mg PO QID PRN Muscle Spasm 05/29/19 06/30/22 History sodium chloride 3 % for 3 ml inhalation BID 06/05/19 06/30/22 History nebulization ondansetron HCl 4 mg tablet 4 mg PO Q8H PRN nausea and 10/06/19 06/30/22 Rx (Zofran) vomiting #30 tabs cetirizine 10 mg capsule (Zyrtec) 10 mg PO DAILY allergies 01/20/20 06/30/22 History montelukast 10 mg tablet 10 mg PO BEDTIME 01/20/20 06/30/22 History (Singulair) verio reflect glucometer #1 ea 01/28/20 06/30/22 Rx insulin syringe-needle U-100 0.5 #100 ea 03/30/20 06/30/22 Rx mL 31 gauge x 5/16 (BD Insulin Syringe Ultra-Fine) losartan 50 mg tablet 50 mg PO DAILY #90 tabs 08/05/20 06/30/22 Rx metformin 1,000 mg tablet 1,000 mg PO BID #180 tabs 09/03/20 06/30/22 Rx atorvastatin 40 mg tablet 40 mg PO BEDTIME 04/20/21 06/30/22 History epinephrine 0.3 mg/0.3 mL 0.3 mg IM Q5-15M PRN Allergic 04/20/21 06/30/22 History injection, auto-injector (EpiPen) Reaction furosemide 20 mg tablet (Lasix) 20 mg PO QAM 04/20/21 06/30/22 History insulin glargine 100 unit/mL 30 unit SUBCUT QAM 04/20/21 06/30/22 History subcutaneous solution insulin lispro 100 unit/mL 4 - 8 unit SUBCUT TID 04/20/21 06/30/22 History subcutaneous pen (Humalog KwikPen (U-100) Insulin) ipratropium 0.5 mg-albuterol 3 mg 3 ml inhalation BID 04/20/21 06/30/22 History (2.5 mg base)/3 mL nebulization soln levothyroxine 75 mcg tablet 75 mcg PO QAM 04/20/21 06/30/22 History nortriptyline 25 mg capsule 25 mg PO BEDTIME 04/20/21 06/30/22 History tiotropium bromide 18 mcg capsule 1 cap inhalation DAILY 04/20/21 06/30/22 History with inhalation device (Spiriva with HandiHaler) lansoprazole 15 mg capsule,delayed 30 mg PO BID 04/29/21 06/30/22 History release (Prevacid 24Hr) apixaban 5 mg (74 tabs) tablets in 5 mg PO BID #74 ea 05/01/21 06/30/22 Rx a dose pack duloxetine 30 mg capsule,delayed 30 mg PO DAILY 06/28/21 06/30/22 History release fluticasone 500 mcg-salmeterol 50 1 inh inhalation BID 06/28/21 06/30/22 History mcg/dose blistr powdr for inhalation (Wixela Inhub) guaifenesin 1,200 mg tablet, 1,200 mg PO BID 06/28/21 06/30/22 History extended release 12 hr (Mucinex) oxycodone-acetaminophen 10 mg-325 1 tab PO Q4H PRN Pain (Scale Score 06/28/21 06/30/22 History mg tablet (Percocet) 4-6) pramipexole 0.5 mg tablet 0.5 mg PO BEDTIME 06/28/21 06/30/22 History fentanyl 25 mcg/hr transdermal 1 patch transdermal Q72H PRN pain 02/05/22 06/30/22 Rx patch (scale score 1-3) #5 ea docusate sodium 100 mg tablet 200 mg PO DAILY 04/24/22 06/30/22 History metoprolol succinate 25 mg 12.5 mg PO BID 04/24/22 06/30/22 History tablet,extended release 24 hr omega-3 fatty acids 1,000 mg PO DAILY 04/24/22 06/30/22 History benralizumab 30 mg/mL subcutaneous 30 mg SUBCUT Q8W 06/03/22 06/30/22 History syringe (Fasenra) dqitlkglsq-wvzaecxaxenpu-ywbrmtea 1 tab PO Q6H PRN Migraine Headache 06/03/22 06/30/22 History 50 mg-325 mg-40 mg tablet clonidine HCl 0.1 mg tablet 0.05 mg PO BID 06/03/22 06/30/22 History oxycodone 5 mg capsule 5 mg PO Q6H PRN Pain (Scale Score 06/03/22 06/30/22 History 7-10) oxymetazoline 0.05 % nasal drops 1 drp intranasal BID PRN Congestion 06/03/22 06/30/22 History prednisone 5 mg tablet 5 mg PO DAILY 06/03/22 06/30/22 History pregabalin 75 mg capsule 75 mg PO DAILY 06/03/22 06/30/22 History Allergies Allergy/AdvReac Type Severity Reaction Status Date / Time hydroxychloroquine Allergy Unknown Verified 06/30/22 07:52 [HYDROXYCHLOROQUINE] promethazine [From Phenergan] Allergy Agitated Verified 06/30/22 07:52 cefepime AdvReac Intermediate pruritis Verified 06/30/22 07:52 Review of Systems Review of Systems Narrative: She denies nausea, vomiting, diarrhea, blood per rectum. Hematuria, urgency, or loss of appetite. She has had orthopnea and pedal edema. Negative. Exam Vital Signs (past 8 hours): - 06/30/22 07:35 06/30/22 07:40 06/30/22 07:41 Temperature 97.1 F L Pulse Rate 78 78 Respiratory Rate 24 Blood Pressure 125/71 125/71 Pulse Oximetry 99 99 Oxygen Delivery Method Nasal Cannula Oxygen Flow Rate 3 06/30/22 07:41 06/30/22 07:45 06/30/22 08:00 Temperature Pulse Rate 78 92 H Respiratory Rate 23 Blood Pressure 172/77 H Pulse Oximetry 100 99 Oxygen Delivery Method Nasal Cannula Oxygen Flow Rate 2 06/30/22 08:00 06/30/22 08:15 06/30/22 08:30 Temperature Pulse Rate 66 67 Respiratory Rate 31 H 34 H Blood Pressure 167/100 H Pulse Oximetry 99 100 Oxygen Delivery Method Oxygen Flow Rate 06/30/22 08:30 06/30/22 08:45 06/30/22 09:00 Temperature Pulse Rate 65 70 64 Respiratory Rate 29 H 28 H 28 H Blood Pressure Pulse Oximetry 99 100 99 Oxygen Delivery Method Nasal Cannula Nasal Cannula Oxygen Flow Rate 2 2 06/30/22 09:01 06/30/22 09:01 06/30/22 09:15 Temperature Pulse Rate 65 77 Respiratory Rate 30 H 29 H Blood Pressure 179/72 H Pulse Oximetry 100 98 Oxygen Delivery Method Oxygen Flow Rate 06/30/22 09:30 06/30/22 09:30 06/30/22 09:45 Temperature Pulse Rate 69 72 Respiratory Rate 27 H 19 Blood Pressure 161/71 H Pulse Oximetry 95 93 Oxygen Delivery Method Nasal Cannula Oxygen Flow Rate 2 06/30/22 10:00 06/30/22 10:00 06/30/22 10:15 Temperature Pulse Rate 64 69 Respiratory Rate 21 21 Blood Pressure 162/96 H Pulse Oximetry 92 95 Oxygen Delivery Method Nasal Cannula Oxygen Flow Rate 2 06/30/22 10:30 06/30/22 10:30 06/30/22 10:45 Temperature Pulse Rate 69 79 Respiratory Rate 32 H 35 H Blood Pressure 145/104 H Pulse Oximetry 95 95 Oxygen Delivery Method Nasal Cannula Oxygen Flow Rate 2 06/30/22 11:00 06/30/22 11:00 06/30/22 11:15 Temperature Pulse Rate 66 134 H Respiratory Rate 34 H 50 H Blood Pressure 143/66 H Pulse Oximetry 95 94 Oxygen Delivery Method Oxygen Flow Rate 06/30/22 11:30 06/30/22 11:30 06/30/22 11:45 Temperature Pulse Rate 66 65 Respiratory Rate 28 H Blood Pressure 154/107 H Pulse Oximetry 97 97 Oxygen Delivery Method Oxygen Flow Rate 06/30/22 12:00 06/30/22 12:00 06/30/22 12:15 Temperature Pulse Rate 67 67 Respiratory Rate 32 H 27 H Blood Pressure 158/75 H Pulse Oximetry 98 99 Oxygen Delivery Method Nasal Cannula Oxygen Flow Rate 2 06/30/22 12:30 06/30/22 12:31 06/30/22 12:31 Temperature Pulse Rate 67 66 Respiratory Rate 24 29 H Blood Pressure 178/81 H Pulse Oximetry 100 100 Oxygen Delivery Method Nasal Cannula Oxygen Flow Rate 2 06/30/22 12:45 06/30/22 13:00 06/30/22 13:01 Temperature Pulse Rate 68 79 Respiratory Rate 29 H 39 H Blood Pressure 125/63 Pulse Oximetry 100 93 Oxygen Delivery Method Nasal Cannula Oxygen Flow Rate 2 06/30/22 13:01 06/30/22 13:15 06/30/22 13:30 Temperature Pulse Rate 78 73 72 Respiratory Rate 28 H 30 H 26 H Blood Pressure Pulse Oximetry 96 98 100 Oxygen Delivery Method Nasal Cannula Oxygen Flow Rate 2 06/30/22 13:31 06/30/22 13:31 06/30/22 13:45 Temperature Pulse Rate 72 83 Respiratory Rate 19 36 H Blood Pressure 156/84 H Pulse Oximetry 99 Oxygen Delivery Method Oxygen Flow Rate 06/30/22 14:00 06/30/22 14:15 06/30/22 14:25 Temperature 97.2 F L Pulse Rate 68 66 62 Respiratory Rate 35 H 32 H 18 Blood Pressure 122/63 Pulse Oximetry 98 97 Oxygen Delivery Method Nasal Cannula Oxygen Flow Rate 2 3 Oxygen Delivery Method Nasal Cannula Oxygen Flow Rate 3 Narrative Exam Narrative: She is alert and oriented x3, no distress. Fluent speech, normal judgment. The head is normal. Eyes with symmetric pupils, anicteric sclera Oropharynx with normal mucosa. Neck is supple, normal thyroid, normal rate Lungs are clear with diminished breath sounds in the bases, normal rate and effort. Heart is irregular without murmur gallop or rub Abdomen is distended, soft and nontender. No organomegaly. Extremities are with 1+ bilateral pedal edema. Good radial pulses. Skin is free of rash or lesions. Joints are free of deformities. Objective Imaging Chest x-ray: Radiologist's impression: FINDINGS:? ? Surgical changes and devices:? None.? ? Lungs and pleura:? Patchy bibasilar densities consistent with patchy atelectasis.? No pleural effusions or pneumothorax.? ? Mediastinum:? Mediastinal contours appear normal.? Mild cardiomegaly. ? Bones and chest wall:? No suspicious bony lesions.? Overlying soft tissues appear unremarkable.? ? IMPRESSION:? Patchy bilateral atelectasis. ? Labs 06/30/22 07:42 06/30/22 07:42 Labs: Laboratory Results - last 24 hr 06/30/22 06/30/22 06/30/22 07:42 07:42 07:42 WBC 8.6 RBC 4.11 Hgb 10.4 L Hct 32.7 L MCV 79.5 L MCH 25.2 L MCHC 31.7 RDW 20.7 H Plt Count 593 H Neut % (Auto) 71.0 Lymph % (Auto) 18.[address] % (Auto) 10.3 Eos % (Auto) 0.2 L Baso % (Auto) 0.5 Neut # (Auto) 6100 Lymph # (Auto) 1600 [place] # (Auto) 900 Eos # (Auto) 0 Baso # (Auto) 0 RBC Morphology See below Poikilocytosis 1+ H Anisocytosis 1+ H PT 15.8 H INR 1.4 H APTT 37 H Sodium 138 Potassium 4.3 Chloride 99 Carbon Dioxide 30 BUN 8 Creatinine 0.60 Estimated GFR > 60 BUN/Creatinine Ratio 13.3 Glucose 159 H Lactate Calcium 9.3 Total Bilirubin 0.4 AST 25 ALT 22 Alkaline Phosphatase 85 Total Creatine Kinase 37 CK-MB (CK-2) TNP CK-MB (CK-2) Rel Index TNP Troponin I < 0.012 NT-Pro-B Natriuret Pep 2660 H Total Protein 8.0 Albumin 4.2 Globulin 3.8 Albumin/Globulin Ratio 1.1 Lipase 58 Procalcitonin 0.05 Chlamy pneumoniae PCR Adenovirus (PCR) B. pertussis DNA (PCR) B.parapertussis DNA PCR Coronavirus OC43 (PCR) Coronavirus HKU1 (PCR) Coronavirus 229E (PCR) SARS-CoV-2 (PCR) Coronavirus NL63 (PCR) Human Metapneumovir PCR Influenza Type A (PCR) Influenza Type B (PCR) M. pneumoniae (PCR) Parainfluenza 1 (PCR) Parainfluenza 2 (PCR) Parainfluenza 3 (PCR) Parainfluenza 4 (PCR) RSV (PCR) Entero/Rhino (PCR) 06/30/22 06/30/22 06/30/22 07:42 08:01 09:45 WBC RBC Hgb Hct MCV MCH MCHC RDW Plt Count Neut % (Auto) Lymph % (Auto) [place] % (Auto) Eos % (Auto) Baso % (Auto) Neut # (Auto) Lymph # (Auto) [place] # (Auto) Eos # (Auto) Baso # (Auto) RBC Morphology Poikilocytosis Anisocytosis PT INR APTT Sodium Potassium Chloride Carbon Dioxide BUN Creatinine Estimated GFR BUN/Creatinine Ratio Glucose Lactate 2.4 H 1.4 Calcium Total Bilirubin AST ALT Alkaline Phosphatase Total Creatine Kinase CK-MB (CK-2) CK-MB (CK-2) Rel Index Troponin I NT-Pro-B Natriuret Pep Total Protein Albumin Globulin Albumin/Globulin Ratio Lipase Procalcitonin Chlamy pneumoniae PCR Not detected Adenovirus (PCR) Not detected B. pertussis DNA (PCR) Not detected B.parapertussis DNA PCR Not detected Coronavirus OC43 (PCR) Not detected Coronavirus HKU1 (PCR) Not detected Coronavirus 229E (PCR) Not detected SARS-CoV-2 (PCR) Not detected Coronavirus NL63 (PCR) Not detected Human Metapneumovir PCR Not detected Influenza Type A (PCR) Not detected Influenza Type B (PCR) Not detected M. pneumoniae (PCR) Not detected Parainfluenza 1 (PCR) Not detected Parainfluenza 2 (PCR) Not detected Parainfluenza 3 (PCR) Not detected Parainfluenza 4 (PCR) Not detected RSV (PCR) Not detected Entero/Rhino (PCR) Not detected Assessment & Plan Assessment & Plan narrative: PLAN: -diurese with Lasix at 40 IV q.12 hours, wean oxygen toward baseline as able -continue maintenance steroids, no indication for stress dose steroids. -continue usual medications without change. -use sliding scale and Lantus for diabetes while in the hospital. -anticipate patient will improve rapidly and likely can return home within the next 1-2 days. -patient confirms she is do not resuscitate 1. Acute on chronic hypoxic respiratory failure, present on admission and active. 2. Acute heart failure (unknown ventricular function), present on admission and active. 3. Chronic bronchiectasis, present on admission and stable. 4. Combined variable immunodeficiency, present on admission and stable. 5. Chronic venous insufficiency, present on admission and stable. 6. Pulmonary embolism and atrial fibrillation, present on admission and stable. 7. Morbid obesity, present on admission and stable. Quality VTE Deep Vein Thrombosis/Pulmonary Embolism Present on Admission: No
[2022-06-30] MEDS: ACETAMINOPHEN 325 MG TABLET 650 MG PO (16:03)
[2022-06-30 17:50] LABS: Add Manual Diff / Slide Review NO; Basophils Absolute Auto 0 /uL (0-100); Basophils Percent Auto 0.4 % (0-2); Eosinophils Absolute Auto 0 /uL (0-450); Hematocrit 29.6 % (36-46); Hemoglobin 9.6 g/dL (12.0-16.0); Lymphocytes Absolute Auto 1400 /uL (1100-4500); Lymphocytes Percent Auto 17.4 % (25-40); Mean Corpuscular HGB Conc 32.4 % (30-36); Mean Corpuscular Hemoglobin 25.7 PG (26-34); Mean Corpuscular Volume 79.3 fL (80-100); Monocytes Absolute Auto 900 /uL (0-900); Monocytes Percent Auto 11.9 % (3-14); Neutrophils Absolute Auto 5600 /uL (1500-7000); Neutrophils Percent Auto 70.3 % (50-75); Platelet Count 550 X10^3/uL (150-400); Red Blood Cell Count 3.73 X10^6/uL (4.0-5.2)
[2022-06-30] MEDS: fentaNYL 25 MCG/PATCH TOP (17:50)
--- NOTE | 2022-06-30 18:02 | PC.NURSE ---
1800 Patient states her is bringing her CPAP machine soon for this evening.
[2022-06-30 18:05] LABS: BUN Creatinine Ratio 12.5 (6-22); Blood Urea Nitrogen 9 mg/dL (7-17); Calcium 9.1 mg/dL (8.4-10.2); Carbon Dioxide 29 mmol/L (22-32); Chloride 97 mmol/L (98-107); Estimated Glomerular Filt Rate > 60 mL/min (>60); Glucose 171 mg/dL (80-110); HEMOLYSIS < 15 (0-50); Potassium 4.2 mmol/L (3.4-5.1); Sodium 134 mmol/L (137-145)
[2022-06-30] MEDS: ALBUTEROL 2.5 MG/3 ML NEB (ADULT) INH (20:00)
[2022-06-30] MEDS: BUDESONIDE 0.5 MG/2 ML NEB INH (20:04)
[2022-06-30] MEDS: IPRATROPIUM 0.5 MG/2.5 ML NEB INH (20:04)
[2022-06-30] MEDS: NORTRIPTYLINE HCL 25 MG CAPSULE PO (20:07)
[2022-06-30] MEDS: MONTELUKAST 10 MG TABLET PO (20:07)
[2022-06-30] MEDS: OXYCODONE IR 5 MG TABLET PO (20:07)
[2022-06-30] MEDS: METOPROLOL ER 25 MG TABLET 12.5 MG PO (20:08)
[2022-06-30] MEDS: APIXABAN 5 MG TABLET PO (20:08)
[2022-06-30] MEDS: FERROUS SULFATE 325 MG TABLET PO (20:09)
[2022-06-30] MEDS: ATORVASTATIN 20 MG TABLET 40 MG PO (20:09)
[2022-06-30] MEDS: PRAMIPEXOLE 0.25 MG TABLET 0.5 MG PO (20:09)
[2022-06-30] MEDS: TIZANIDINE 4 MG TABLET PO (20:09)
[2022-07-01 03:00] VITALS: O2SAT 99
[2022-07-01] MEDS: ALBUTEROL 2.5 MG/3 ML NEB (ADULT) INH ×2 (04:37→09:08)
[2022-07-01] MEDS: IPRATROPIUM 0.5 MG/2.5 ML NEB INH (04:37)
[2022-07-01 05:47] VITALS: BP 157/68; PULSE 74; RESP 15; TEMP 36.4; O2SAT 94
[2022-07-01] MEDS: LEVOTHYROXINE 75 MCG TABLET PO (05:54)
[2022-07-01 08:00] VITALS: O2SAT 90
[2022-07-01] MEDS: BUDESONIDE 0.5 MG/2 ML NEB INH ×2 (09:08→12:35)
[2022-07-01 09:35] VITALS: PULSE 87; RESP 20
[2022-07-01 09:38] VITALS: BP 146/69; PULSE 92; RESP 19; TEMP 36; O2SAT 95
[2022-07-01] MEDS: TIZANIDINE 4 MG TABLET PO (09:44)
[2022-07-01] MEDS: OXYCODONE IR 5 MG TABLET PO (09:44)
[2022-07-01] MEDS: DULOXETINE 30 MG CAPSULE PO (09:45)
[2022-07-01] MEDS: METOPROLOL ER 25 MG TABLET 12.5 MG PO (09:45)
[2022-07-01] MEDS: FUROSEMIDE 40 MG/4 ML VIAL IV (09:45)
[2022-07-01] MEDS: PREGABALIN 75 MG CAPSULE PO (09:45)
[2022-07-01] MEDS: APIXABAN 5 MG TABLET PO (09:45)
[2022-07-01] MEDS: predniSONE 5 MG TABLET PO (09:46)
[2022-07-01] MEDS: ACETAMINOPHEN 325 MG TABLET 650 MG PO (09:46)
[2022-07-01] MEDS: LORATADINE 10 MG TABLET PO (09:46)
[2022-07-01] MEDS: LOSARTAN 50 MG TABLET PO (09:46)
[2022-07-01] MEDS: SPIRONOLACTONE 25 MG TABLET 50 MG PO (09:46)
[2022-07-01] MEDS: INSULIN LISPRO 100 UNIT/ML 3ML VIAL SUBCUT ×2 (09:55→12:21)
[2022-07-01] MEDS: INSULIN GLARGINE 100 UNIT/ML 3ML PEN 30 UNIT SUBCUT (09:56)
--- NOTE | 2022-07-01 12:04 | P.DS_ITS ---
History of Present Illness History of Present Illness Date Patient Seen: 07/01/22 Chief complaint: SOB, recent pneumonia Narrative: Per admitting provider, The patient is a 72-year-old female with a past medical history of chronic hypoxic respiratory failure on 3-4 L of oxygen, immunodeficiency pneumonia, atrial fibrillation heart failure. She presents with progressive dyspnea, orthopnea and some leg edema over the last 4-5 days. This follows missing lidia ral doses of her Lasix due to concern of urinary urgency while performing activities of daily living. She presented to the ED today with edema and responded to Lasix. She pneumonia and notes that she gone home about 2 weeks ago and had done pretty well until the last several days. The patient responds to Lasix in the emergency department. She did have limited left-sided chest pain without associated nausea, or diaphoresis last night. This lasted less than a 1/2 minute. She denies recent fevers, or chills. She does have a chronic cough which is mostly been nonproductive. Occasionally she brings up some melchor phlegm. Discharge Providers Provider Date of admission: 06/30/22 11:01 Discharge Date: 07/01/22 Primary care physician: Karin Porter MD Consults: 06/30/22 15:12 Consult to Physical Therapy Evaluate & Treat Comment: Physician Instructions: Evaluate and Treat Discharge provider: Harjeet Nance DO Summary Hospital Course Discharge Diagnosis: 1. Acute on chronic hypoxic respiratory failure, present on admission and active. 2. Acute on chronic diastolic heart failure, present on admission and active. 3. Chronic bronchiectasis, present on admission and stable. 4. Common variable immunodeficiency, present on admission and stable. 5. Chronic venous insufficiency, present on admission and stable. 6. Pulmonary embolism and atrial fibrillation, present on admission and stable. 7. Morbid obesity, present on admission and stable. Hospital Course: This is a 72 year old female with chronic respiratory failure who presented with slightly worsened oxygenation requirements compared to baseline and shortness of breath. She had been skipping doses of furosemide due to frequent voiding and inability to go out in public while taking this medication. She was given IV furosemide and diuresed well. She felt improved the following day and had improved to only needing 2L of oxygen. She was discharged home. We discussed diuretic options, she requested returning to HCTZ. Risks and benefits of this option compared to furosemide were discussed and patient wished to trial HCTZ at this time. She was discharged on 25 mg BID, follow up with PCP and cardiology is recommended and patient was advised to watch her weight at home, and if weight increases along with O2 requirements she should change to furosemide instead to attempt more aggressive diuresis at home to possibly avoid hospitalization, in consultation with her outpatient providers ideally. Time Spent with Patient Time spent: Greater than 30 minutes Exam Vital Signs (past 8 hours): - 07/01/22 05:47 07/01/22 09:35 07/01/22 09:38 Temperature 97.6 F 96.8 F L Pulse Rate 74 87 92 H Respiratory Rate 15 20 19 Blood Pressure 157/68 H 146/69 H Pulse Oximetry 94 95 Oxygen Flow Rate 0 4 Oxygen Delivery Method Nasal Cannula Oxygen Flow Rate 4 Narrative Exam Narrative: She is alert and oriented x3, no distress. Fluent speech, normal judgment. The head is normal. Eyes with symmetric pupils, anicteric sclera Oropharynx with normal mucosa. Neck is supple, normal thyroid, normal rate Lungs are clear with diminished breath sounds in the bases, normal rate and effort. Heart is irregular without murmur gallop or rub Abdomen is distended, soft and nontender. No organomegaly. Extremities are with trace bilateral pedal edema. Good radial pulses. Skin is free of rash or lesions. Joints are free of deformities. Objective Labs 06/30/22 17:38 06/30/22 17:38 Labs: Laboratory Results - last 24 hr 06/30/22 06/30/22 17:38 17:38 WBC 8.0 RBC 3.73 L Hgb 9.6 L Hct 29.6 L MCV 79.3 L MCH 25.7 L MCHC 32.4 RDW 20.0 H Plt Count 550 H Neut % (Auto) 70.3 Lymph % (Auto) 17.4 L [place] % (Auto) 11.9 Eos % (Auto) 0.0 L Baso % (Auto) 0.4 Neut # (Auto) 5600 Lymph # (Auto) 1400 [place] # (Auto) 900 Eos # (Auto) 0 Baso # (Auto) 0 Sodium 134 L Potassium 4.2 Chloride 97 L Carbon Dioxide 29 BUN 9 Creatinine 0.72 Estimated GFR > 60 BUN/Creatinine Ratio 12.5 Glucose 171 H Calcium 9.1 PFSH Medical History Abnormal chest xray (~1979) Anemia Ankle pain Anticoagulated Asthma (~1959) Bronchiectasis (~2006) Cervical spine disease Chronic back pain Colon polyps (~2015) Degenerative joint disease of spine (~2001) Diabetes mellitus, type II (~2009) Eczema Fibromyalgia Foot pain Hoarseness Hyperlipidemia Hypertension Hypothyroidism Migraines (~1964) 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 Osteopenia Pneumonia Pneumonia Recurrent sinusitis (~1970) Restless leg syndrome Shoulder pain (~03/2018) Sleep apnea Wears glasses Surgical History Anesthesia History of carpal tunnel release History of cataract removal with insertion of prosthetic lens (~2014) History of section History of laminectomy (~2002) History of spinal fusion (~2012) History of thumb surgery Family History Father Stroke Mother Hypertension Brother Cerebral aneurysm Prostate cancer Diabetes mellitus Hypertension Stroke Brother Arthritis Hyperlipidemia Hypertension Sister History of kidney cancer Hypertension Grandfather Cancer Grandmother Cancer Other Family history non-contributory Social History household members: spouse Smoking Status: Never smoker alcohol intake: current Discharge Plan Discharge Plan Patient Disposition: Home Provider Discharge Comment: You were admitted to the hospital with shortness of breath due to heart failure. This improved with removal of fluid. We discussed management options but we can try HCTZ for fluid removal to see if this is more tolerable. If your BP is low you can reduce dosing to 1 pill once a day. watch your weight at home, and if weight is increasing you can change to furosemide (stop HCTZ while taking furosemide) for a day or two to see if you can remove fluid without coming into the hospital. No other medication changes are needed at this time. Discharge orders & Medications Prescriptions: New pregabalin [Lyrica] 75 mg Capsule 75 mg PO DAILY 30 Days Qty: 30 0RF hydrochlorothiazide 25 mg tablet 25 mg PO BID 30 Days Qty: 60 0RF Continued polyethylene glycol 3350 [Miralax] 119 GM powder 17 gm PO DAILY PRN (Reason: Constipation) Qty: 0 ondansetron HCl [Zofran] 4 mg tablet 4 mg PO Q8H PRN (Reason: nausea and vomiting) Qty: 30 1RF (DME) insulin syringe-needle U-100 [BD Insulin Syringe Ultra-Fine] 0.5 mL 31 gauge x 5/16 syringe See Rx Instructions .ROUTE .MEDSUPPLY Qty: 100 1RF Rx Instructions: Use once a day as directed losartan 50 mg tablet 50 mg PO DAILY Qty: 90 0RF metformin 1,000 mg tablet 1,000 mg PO BID Qty: 180 0RF (DME) verio reflect glucometer Qty: 1 0RF Rx Instructions: As directed Privigen 10 % solution 45 gram IV Q3W ferrous sulfate 325 mg (65 mg iron) tablet 325 mg PO BEDTIME spironolactone 50 mg tablet 50 mg PO DAILY tizanidine 4 mg capsule 4 mg PO QID PRN (Reason: Muscle Spasm) cholecalciferol (vitamin D3) 2,000 unit tablet 2,000 unit PO DAILY albuterol sulfate 90 mcg/actuation HFA aerosol inhaler 2 puff INHALATION Q4-6H PRN (Reason: Shortness Of Breath) lansoprazole [Prevacid 24Hr] 15 mg Capsule,Delayed Release(Dr/Ec) 30 mg PO BID apixaban 5 mg (74 tabs) tablets,dose pack 5 mg PO BID Qty: 74 0RF fentanyl 25 mcg/hr patch 72 hour 1 patch transdermal Q72H PRN (Reason: pain (scale score 1-3)) Qty: 5 0RF Patient Comments: placed today at home omega-3 fatty acids Capsule 1,000 mg PO DAILY docusate sodium 100 mg Tablet 200 mg PO DAILY metoprolol succinate 25 mg Tablet Extended Release 24 Hr 12.5 mg PO BID sodium chloride 3 % Solution For Nebulization 3 ml INHALATION BID Rx Instructions: use w/ nebulizer 2 x daily montelukast [Singulair] 10 mg Tablet 10 mg PO BEDTIME Zyrtec 10 mg Capsule 10 mg PO DAILY atorvastatin 40 mg Tablet 40 mg PO BEDTIME ipratropium-albuterol 0.5 mg-3 mg(2.5 mg base)/3 mL Solution For Nebulization 3 ml INHALATION BID Rx Instructions: and every 4 hours as needed levothyroxine 75 mcg Tablet 75 mcg PO QAM nortriptyline 25 mg Capsule 25 mg PO BEDTIME epinephrine [EpiPen] 0.3 mg/0.3 mL Auto-Injector 0.3 mg IM Q5-15M PRN (Reason: Allergic Reaction) Rx Instructions: do not exceed 3 doses per episode Spiriva with HandiHaler 18 mcg Capsule, W/Inhalation Device 1 cap INHALATION DAILY Rx Instructions: puncture 1 cap using device; one dose = 2 inhalations insulin glargine 100 unit/mL solution 30 unit SUBCUT QAM insulin lispro [Humalog KwikPen Insulin] 100 unit/mL insulin pen 4 - 8 unit SUBCUT TID pramipexole 0.5 mg tablet 0.5 mg PO BEDTIME fluticasone propion-salmeterol [Wixela Inhub] 500-50 mcg/dose Blister With Device 1 inh INHALATION BID duloxetine 30 mg Capsule,Delayed Release(Dr/Ec) 30 mg PO DAILY oxycodone-acetaminophen [Percocet] 10-325 mg Tablet 1 tab PO Q4H PRN (Reason: Pain (Scale Score 4-6)) Mucinex 1,200 mg Tablet Extended Release 12hr 1,200 mg PO BID clonidine HCl 0.1 mg tablet 0.05 mg PO BID prednisone 5 mg tablet 5 mg PO DAILY ognljhthhb-ngehcqgymtgia-uzeq 50-325-40 mg Tablet 1 tab PO Q6H PRN (Reason: Migraine Headache) oxycodone 5 mg Capsule 5 mg PO Q6H PRN (Reason: Pain (Scale Score 7-10)) oxymetazoline 0.05 % Drops 1 drp INTRANASAL BID PRN (Reason: Congestion) Fasenra 30 mg/mL Syringe 30 mg SUBCUT Q8W Discontinued furosemide [Lasix] 20 mg tablet 20 mg PO QAM Follow up/Referrals: Karin Porter MD [Primary Care Provider] - Diet/Activity/Treatments Diet: Diet as Tolerated and Low-sodium Activity: As tolerated Oxygen: continue home O2 to maintain O2 saturations between 89-96% Visit Report/Discharge Packet Instructions: DI for Heart Failure, How to Prevent Falls, DI for Respiratory Failure Stand Alone Forms: Patient Portal/API, Stroke Signs & Symptoms Discharge Data Primary Care Provider: Karin Porter Attending Provider: Jorge Cervantes VTE Deep Vein Thrombosis/Pulmonary Embolism Present on Admission: No
[2022-07-01] MEDS: guaiFENesin ER 600 MG TAB 1200 MG PO (12:20)
[2022-07-01 12:36] VITALS: PULSE 76; RESP 18; O2SAT 96
[2022-07-01] MEDS: ALBUTEROL/IPRATROPIUM 3 ML AMPUL INH (12:36)
--- NOTE | 2022-07-01 13:24 | PT-IP ANOTE ---
Physical therapy order received. Chart reviewed and spoke to her nurse. Pt has discharge orders for home with Spouse. Spoke to pt and Spouse and they report no physical therapy needs at this time. They feel safe about discharge plan home and pt wants to continue with the home health PT that she was doing before this hospital admission. They report having the equipment they need at home. Will discharge physical therapy order.
--- NOTE | 2022-07-01 13:27 | CM.DANOTE ---
Addendum entered by MACKENZIE Pittman 07/01/22 14:14: ADD: Updated Janine at [facility]- patient discharging home. No DC summary or resumption order needed since observation, less than 24 hr stay BEN Original Note: Initial DCP Assessment Note 72-year-old female with a past medical history of chronic hypoxic respiratory failure on 3-4 L of oxygen, immunodeficiency pneumonia, atrial fibrillation heart failure. She presents with progressive dyspnea, orthopnea and some leg edema over the last 4-5 days. Patient well known to this CM team r/t multiple admissions Patient lives w/supportive spouse and retired Ortho PA Lucas. Patient will return home today, resumption of [facility] services, home O2 and close outpatient follow up Will plan to alert [facility]. No additional needs identified by this CM team BEN Discharge Planning/Care Management CM Discharge Assessment Start: 07/01/22 13:24 Freq: Status: Active Protocol: Document 07/01/22 13:24 BEN (Rec: 07/01/22 13:27 BEN [id number]) Discharge Planning Assessment Assigned Channel Account Manager MACKENZIE Heath DPOA/Assigned Designee Name Lucas Zavaleta, spouse Contact Information [phone] Advance Directives? Yes: Yes-POLST Advance Directives on File No History Provided By Patient,Significant Other, Medical Record Has Patient been admitted in last 30 Yes days? Comment Here 2.18-23 Prior Living Arrangements House Household Members spouse Type of transporation used prior to Relies on Others admit Independent with ADL's No: Poor activity tolerance Is patient alert and oriented? Yes Needs Assistance With Bathing,Meal Prep,Home Chores / Shopping Comment Has shower chair as well Comment medically and physically fragile. return home w/spouse, who is a retired Orthopedic PA-C Discharge Plan Home with Home Health Transportation Arrangement Spouse bedside and can provide transport home when stable Referrals Initiated None needed Additional Comment resumption of [facility] services
--- NOTE | 2022-07-01 15:25 | PC.NURSE ---
Discharge: pt feels ready to d/c to home. She is at baseline. Seen by MD and given instructions. Seen by PT and doing some therapy. and received there instructions. Tolerating fluid and foods w/out problems. D/c packet given and reveiwed. Pt d/c to home with spouse
== END 2022-07-01 14:40 | disposition home or self-care (01) ==
LOC: ED 10:56 → AC 11:02
PROVIDERS: Admitting Provider Hospitalist; Emergency Provider Emergency Medicine; Family Provider Internal Medicine Infectious Disease; PCP Internal Medicine; Referring Provider Emergency Medicine; Visit Provider Hospitalist
DX: J96.21 Acute and chronic respiratory failure with hypoxia (principal); I50.33 Acute on chronic diastolic (congestive) heart failure; D83.9 Common variable immunodeficiency, unspecified; J47.9 Bronchiectasis, uncomplicated; E11.9 Type 2 diabetes mellitus without complications; I87.2 Venous insufficiency (chronic) (peripheral); I48.91 Unspecified atrial fibrillation; E66.01 Morbid (severe) obesity due to excess calories; Z99.81 Dependence on supplemental oxygen; Z79.84 Long term (current) use of oral hypoglycemic drugs; Z79.4 Long term (current) use of insulin; Z20.822 Contact with and (suspected) exposure to COVID-19
CPT/HCPCS: 36415; 71045; 80048; 80053; 82550; 82962; 83605; 83690; 83880; 84145; 84484; 85025; 85610; 85730; 87040; 87633; 93005; 93010; 94640; 96372; 96374; 96376; 99285; G0378; J1815; J1940; J7613

== ENCOUNTER 2022-08-07 11:32 | Emergency (ER) | payer OTHER, SELFPAY ==
[2022-06-07 07:30] VITALS: PULSE 84; RESP 20; O2SAT 99
[2022-06-30 15:01] VITALS: BMI 43.0
[2022-08-07] VITALS (8 sets, daily range): BP systolic 118–131; BP diastolic 60–73; PULSE 70–84; RESP 17–33; TEMP 36.6; O2SAT 98–99; BMI 40.6
--- NOTE | 2022-08-07 11:54 | DI.US.S_ITS ---
PROCEDURE: US PERIPH VENOUS LOW EXTREM LT INDICATIONS: GROIN PAIN. HISTORY OF DEEP VEIN THROMBOSIS TECHNIQUE: Real-time imaging, as well as color and pulse Doppler interrogation, were performed of the lower extremity deep veins from the inguinal ligament to the popliteal fossa. COMPARISON: None. FINDINGS: There is nonocclusive thrombus in the mid femoral vein. Common femoral vein, profundal and proximal femoral vein are patent. Greater saphenous vein is patent. Popliteal vein is patent. Ortiz's cyst measuring 2.3 x 1.8 x 0.5 cm. IMPRESSION: Positive exam for DVT. Nonocclusive thrombus in the mid femoral vein. Small Ortiz's cyst. Dictated by: Ivan Omer M.D. on 08/07/2022 at 12:52 Approved by: Ivan Omer M.D. on 08/07/2022 at 12:54
--- NOTE | 2022-08-07 13:37 | ED_ITS ---
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 She reports that she just saw her academic guidance specialist Dr. Tj Neil last week. He did some blood work and was going to cut Eliquis in half to 2.5 mg. She reports that she took 1/2 dose but them started having some pain in her left legs she resumed the full 5 mg. Refused denies any chest pain or shortness of breath. She actually looks the best I have ever seen her. Related Data Home Medications Medication Instructions Recorded Confirmed polyethylene glycol 3350 17 17 gm PO DAILY PRN Constipation ##0 06/06/17 06/30/22 gram/dose oral powder (Miralax) albuterol sulfate 90 mcg/actuation 2 puff inhalation Q4-6H PRN 05/29/19 06/30/22 aerosol inhaler Shortness Of Breath cholecalciferol (vitamin D3) 50 2,000 unit PO DAILY 05/29/19 06/30/22 mcg (2,000 unit) tablet ferrous sulfate 325 mg (65 mg 325 mg PO BEDTIME 05/29/19 06/30/22 iron) tablet immune glob,gamm(IgG) 10 %-pro-IgA 45 gram IV Q3W 05/29/19 06/30/22 0 to 50 mcg/mL intravenous solution (Privigen) spironolactone 50 mg tablet 50 mg PO DAILY 05/29/19 06/30/22 tizanidine 4 mg capsule 4 mg PO QID PRN Muscle Spasm 05/29/19 06/30/22 sodium chloride 3 % for 3 ml inhalation BID 06/05/19 06/30/22 nebulization cetirizine 10 mg capsule (Zyrtec) 10 mg PO DAILY allergies 01/20/20 06/30/22 montelukast 10 mg tablet 10 mg PO BEDTIME 01/20/20 06/30/22 (Singulair) atorvastatin 40 mg tablet 40 mg PO BEDTIME 04/20/21 06/30/22 epinephrine 0.3 mg/0.3 mL 0.3 mg IM Q5-15M PRN Allergic 04/20/21 06/30/22 injection, auto-injector (EpiPen) Reaction insulin glargine 100 unit/mL 30 unit SUBCUT QAM 04/20/21 06/30/22 subcutaneous solution insulin lispro 100 unit/mL 4 - 8 unit SUBCUT TID 04/20/21 06/30/22 subcutaneous pen (Humalog KwikPen (U-100) Insulin) ipratropium 0.5 mg-albuterol 3 mg 3 ml inhalation BID 04/20/21 06/30/22 (2.5 mg base)/3 mL nebulization soln levothyroxine 75 mcg tablet 75 mcg PO QAM 04/20/21 06/30/22 nortriptyline 25 mg capsule 25 mg PO BEDTIME 04/20/21 06/30/22 tiotropium bromide 18 mcg capsule 1 cap inhalation DAILY 04/20/21 06/30/22 with inhalation device (Spiriva with HandiHaler) lansoprazole 15 mg capsule,delayed 30 mg PO BID 04/29/21 06/30/22 release (Prevacid 24Hr) duloxetine 30 mg capsule,delayed 30 mg PO DAILY 06/28/21 06/30/22 release fluticasone 500 mcg-salmeterol 50 1 inh inhalation BID 06/28/21 06/30/22 mcg/dose blistr powdr for inhalation (Wixela Inhub) guaifenesin 1,200 mg tablet, 1,200 mg PO BID 06/28/21 06/30/22 extended release 12 hr (Mucinex) oxycodone-acetaminophen 10 mg-325 1 tab PO Q4H PRN Pain (Scale Score 06/28/21 06/30/22 mg tablet (Percocet) 4-6) pramipexole 0.5 mg tablet 0.5 mg PO BEDTIME 06/28/21 06/30/22 docusate sodium 100 mg tablet 200 mg PO DAILY 04/24/22 06/30/22 metoprolol succinate 25 mg 12.5 mg PO BID 04/24/22 06/30/22 tablet,extended release 24 hr omega-3 fatty acids 1,000 mg PO DAILY 04/24/22 06/30/22 benralizumab 30 mg/mL subcutaneous 30 mg SUBCUT Q8W 06/03/22 06/30/22 syringe (Fasenra) [id number]-ozrdfxhyinwzr-[id number] 1 tab PO Q6H PRN Migraine Headache 06/03/22 06/30/22 50 mg-325 mg-40 mg tablet clonidine HCl 0.1 mg tablet 0.05 mg PO BID 06/03/22 06/30/22 oxycodone 5 mg capsule 5 mg PO Q6H PRN Pain (Scale Score 06/03/22 06/30/22 7-10) oxymetazoline 0.05 % nasal drops 1 drp intranasal BID PRN Congestion 06/03/22 06/30/22 prednisone 5 mg tablet 5 mg PO DAILY 06/03/22 06/30/22 Previous Rx's Medication Instructions Recorded ondansetron HCl 4 mg tablet 4 mg PO Q8H PRN nausea and 10/06/19 (Zofran) vomiting #30 tabs verio reflect glucometer #1 ea 01/28/20 insulin syringe-needle U-100 0.5 #100 ea 03/30/20 mL 31 gauge x 5/16 (BD Insulin Syringe Ultra-Fine) losartan 50 mg tablet 50 mg PO DAILY #90 tabs 08/05/20 metformin 1,000 mg tablet 1,000 mg PO BID #180 tabs 09/03/20 apixaban 5 mg (74 tabs) tablets in 5 mg PO BID #74 ea 05/01/21 a dose pack fentanyl 25 mcg/hr transdermal 1 patch transdermal Q72H PRN pain 02/05/22 patch (scale score 1-3) #5 ea enoxaparin 100 mg/mL subcutaneous 100 mg SUBCUT Q12H 14 days #28 mL 08/07/22 syringe (Lovenox) Allergies Allergy/AdvReac Type Severity Reaction Status Date / Time hydroxychloroquine Allergy Unknown Verified 08/07/22 11:53 [HYDROXYCHLOROQUINE] promethazine [From Phenergan] Allergy Agitated Verified 08/07/22 11:53 cefepime AdvReac Intermediate pruritis Verified 08/07/22 11:53 Review of Systems Review of Systems ROS Unobtainable: All systems reviewed & are unremarkable except as noted in HPI and below Patient History Medical History Abnormal chest xray (~1979) Anemia Ankle pain Anticoagulated Asthma (~1959) Bronchiectasis (~2006) Cervical spine disease Chronic back pain Colon polyps (~2015) Degenerative joint disease of spine (~2001) Diabetes mellitus, type II (~2009) Eczema Fibromyalgia Foot pain Hoarseness Hyperlipidemia Hypertension Hypothyroidism Migraines (~1964) 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 Osteopenia Pneumonia Pneumonia Recurrent sinusitis (~1970) Restless leg syndrome Shoulder pain (~03/2018) Sleep apnea Wears glasses Surgical History Anesthesia History of carpal tunnel release History of cataract removal with insertion of prosthetic lens (~2014) History of section History of laminectomy (~2002) History of spinal fusion (~2012) History of thumb surgery Family History Father Stroke Mother Hypertension Brother Cerebral aneurysm Prostate cancer Diabetes mellitus Hypertension Stroke Brother Arthritis Hyperlipidemia Hypertension Sister History of kidney cancer Hypertension Grandfather Cancer Grandmother Cancer Other Family history non-contributory Social History household members: spouse Smoking Status: Never smoker alcohol intake: current Smoking Status: Never smoker alcohol intake frequency: holidays/special occasions only Substance Use Type: does not use Exam Initial Vital Signs Initial Vital Signs: Vital Signs Temperature 97.9 F 08/07/22 11:49 Pulse Rate 80 08/07/22 11:49 Respiratory Rate 22 08/07/22 11:49 Blood Pressure 118/73 08/07/22 11:49 Pulse Oximetry 98 08/07/22 11:49 Oxygen Delivery Method Nasal Cannula 08/07/22 11:49 Oxygen Flow Rate 3 08/07/22 11:49 GENERAL: Alert well-appearing 72-year-old female HEENT: Head atraumatic,EOMI, pupils reactive, face symmetric, moist mucous membranes CARDIOVASCULAR: Regular rate and rhythm without murmurs, rubs or gallops. RESPIRATORY: Breath sounds equal bilaterally, no wheezes rales or rhonchi. ABDOMEN: Soft, nontender. Normoactive bowel sounds all 4 quadrants. No guarding or rebound. EXTREMITIES: Normal range of motion, no clubbing or edema. Neurovascularly intact Distal pedal pulse intact in left lower extremity pain in left NEUROLOGICAL: Alert and oriented x4. SKIN: Warm, dry, no laceration, no petechiae, no rashes or lesions. Course Orders Ordered: ED Orders 08/07/22 11:54 perip venous low extrem lt Stat Discontinued Medications Enoxaparin Sodium (Enoxaparin 100 Mg/Ml Syringe) 95 mg 1 mg/kg (95 mg) SUBCUT NOW ONE Stop: 08/07/22 15:31 Last Admin: 08/07/22 15:24 Dose: 95 mg Documented By: ELVIN Vital Signs Vital signs: Vital Signs - 8 hr 08/07/22 13:12 08/07/22 13:30 08/07/22 14:00 Pulse Rate 71 84 73 Respiratory Rate 17 26 H 33 H Blood Pressure Pulse Oximetry 99 Oxygen Delivery Method Oxygen Flow Rate 08/07/22 14:30 08/07/22 15:00 08/07/22 15:28 Pulse Rate 75 76 Respiratory Rate 27 H Blood Pressure 131/60 Pulse Oximetry 98 99 Oxygen Delivery Method Oxygen Flow Rate 08/07/22 15:28 08/07/22 15:30 Pulse Rate 71 70 Respiratory Rate 31 H Blood Pressure Pulse Oximetry 99 99 Oxygen Delivery Method Nasal Cannula Oxygen Flow Rate 3 MDM - Extremity (Nontraumatic) Lab Data Labs: Urine Dip Bedside Urine Glucose Negative Bedside Urine Bilirubin - Negative Bedside Urine Ketone - Negative Urine Specific [place] 1.010 Bedside Urine Occult Blood - Negative Bedside Urine pH 6.0 Bedside Urine Protein - Negative Bedside Urine Urobilinogen - Negative Bedside Urine Nitrite - Negative Bedside Urine Leukocytes - Negative Esterase Imaging Data US - DVT: Radiologist's Impression: PROCEDURE:? US PERIP VENOUS LOW EXTREM LT ? INDICATIONS:? GROIN PAIN. HISTORY OF DEEP VEIN THROMBOSIS ? TECHNIQUE:? Real-time imaging, as well as color and pulse Doppler interrogation, were performed of the lower extremity deep veins from the inguinal ligament to the popliteal fossa.? ? COMPARISON:? None. ? FINDINGS:? There is nonocclusive thrombus in the mid femoral vein. ? ?Common femoral vein, profundal and proximal femoral vein are patent.? Greater saphenous vein is patent.? Popliteal vein is patent. ? Ortiz's cyst measuring 2.3 x 1.8 x 0.5 cm. ? IMPRESSION:? Positive exam for DVT. ? Nonocclusive thrombus in the mid femoral vein. ? Small Ortiz's cyst.? ? Dictated by: Ivan Omer M.D. on 08/07/2022 at 12:52 ?? [facility] Narrative Medical decision making narrative: Patient 72-year-old female multiple comorbidities chronic pulmonary failure on oxygen appears the best she has looked since I have ever seen her. She is positive for a DVT. Discussed case with her academic guidance specialist who recommends Lovenox. She will likely need to be bridged over to Coumadin but that can be done in the office. Discharge Plan Departure Patient Disposition: Home Clinical Impression: DVT (deep venous thrombosis) Instructions: Deep Vein Thrombosis, DI for Deep Vein Thrombosis Activity Restrictions/Additional Instructions: *You have been diagnosed with DVT *What to do: You will need to follow-up with oncology *Continue to take medications as directed Stop taking Eliquis Start taking Lovenox 100 mg twice a day, follow--> SENT TO [facility] *Follow up with your primary care provider in 2-3 days or call [phone] *Return to ER if you should have increasing pain swelling shortness of breath confusion [or] any new, worsening or concerning symptoms Prescriptions: New enoxaparin [Lovenox] 100 mg/mL syringe 100 mg SUBCUT Q12H 14 Days Qty: 28 0RF No Action polyethylene glycol 3350 [Miralax] 119 GM powder 17 gm PO DAILY PRN (Reason: Constipation) Qty: 0 ondansetron HCl [Zofran] 4 mg tablet 4 mg PO Q8H PRN (Reason: nausea and vomiting) Qty: 30 1RF (DME) insulin syringe-needle U-100 [BD Insulin Syringe Ultra-Fine] 0.5 mL 31 gauge x 5/16 syringe See Rx Instructions .ROUTE .MEDSUPPLY Qty: 100 1RF Rx Instructions: Use once a day as directed losartan 50 mg tablet 50 mg PO DAILY Qty: 90 0RF metformin 1,000 mg tablet 1,000 mg PO BID Qty: 180 0RF (DME) verio reflect glucometer Qty: 1 0RF Rx Instructions: As directed Privigen 10 % solution 45 gram IV Q3W ferrous sulfate 325 mg (65 mg iron) tablet 325 mg PO BEDTIME spironolactone 50 mg tablet 50 mg PO DAILY tizanidine 4 mg capsule 4 mg PO QID PRN (Reason: Muscle Spasm) cholecalciferol (vitamin D3) 2,000 unit tablet 2,000 unit PO DAILY albuterol sulfate 90 mcg/actuation HFA aerosol inhaler 2 puff INHALATION Q4-6H PRN (Reason: Shortness Of Breath) lansoprazole [Prevacid 24Hr] 15 mg Capsule,Delayed Release(Dr/Ec) 30 mg PO BID apixaban 5 mg (74 tabs) tablets,dose pack 5 mg PO BID Qty: 74 0RF fentanyl 25 mcg/hr patch 72 hour 1 patch transdermal Q72H PRN (Reason: pain (scale score 1-3)) Qty: 5 0RF Patient Comments: placed today at home omega-3 fatty acids Capsule 1,000 mg PO DAILY docusate sodium 100 mg Tablet 200 mg PO DAILY metoprolol succinate 25 mg Tablet Extended Release 24 Hr 12.5 mg PO BID sodium chloride 3 % Solution For Nebulization 3 ml INHALATION BID Rx Instructions: use w/ nebulizer 2 x daily montelukast [Singulair] 10 mg Tablet 10 mg PO BEDTIME Zyrtec 10 mg Capsule 10 mg PO DAILY atorvastatin 40 mg Tablet 40 mg PO BEDTIME ipratropium-albuterol 0.5 mg-3 mg(2.5 mg base)/3 mL Solution For Nebulization 3 ml INHALATION BID Rx Instructions: and every 4 hours as needed levothyroxine 75 mcg Tablet 75 mcg PO QAM nortriptyline 25 mg Capsule 25 mg PO BEDTIME epinephrine [EpiPen] 0.3 mg/0.3 mL Auto-Injector 0.3 mg IM Q5-15M PRN (Reason: Allergic Reaction) Rx Instructions: do not exceed 3 doses per episode Spiriva with HandiHaler 18 mcg Capsule, W/Inhalation Device 1 cap INHALATION DAILY Rx Instructions: puncture 1 cap using device; one dose = 2 inhalations insulin glargine 100 unit/mL solution 30 unit SUBCUT QAM insulin lispro [Humalog KwikPen Insulin] 100 unit/mL insulin pen 4 - 8 unit SUBCUT TID pramipexole 0.5 mg tablet 0.5 mg PO BEDTIME fluticasone propion-salmeterol [Wixela Inhub] 500-50 mcg/dose Blister With Device 1 inh INHALATION BID duloxetine 30 mg Capsule,Delayed Release(Dr/Ec) 30 mg PO DAILY oxycodone-acetaminophen [Percocet] 10-325 mg Tablet 1 tab PO Q4H PRN (Reason: Pain (Scale Score 4-6)) Mucinex 1,200 mg Tablet Extended Release 12hr 1,200 mg PO BID clonidine HCl 0.1 mg tablet 0.05 mg PO BID prednisone 5 mg tablet 5 mg PO DAILY [id number] 50-325-40 mg Tablet 1 tab PO Q6H PRN (Reason: Migraine Headache) oxycodone 5 mg Capsule 5 mg PO Q6H PRN (Reason: Pain (Scale Score 7-10)) oxymetazoline 0.05 % Drops 1 drp INTRANASAL BID PRN (Reason: Congestion) Fasenra 30 mg/mL Syringe 30 mg SUBCUT Q8W Referrals: Karin Porter MD [Primary Care Provider] - Stand Alone Forms: Patient Portal/API
[2022-08-07] MEDS: ENOXAPARIN 100 MG/ML SYRINGE 95 MG SUBCUT (15:24)
== END 2022-08-07 15:48 | disposition home or self-care (01) ==
PROVIDERS: Emergency Provider Emergency Medicine; Family Provider Internal Medicine Infectious Disease; PCP Internal Medicine
DX: I82.402 Acute embolism and thrombosis of unspecified deep veins of left lower extremity (principal)
CPT/HCPCS: 81003; 93041; 93971; 96372; 99283; 99284; J1650

== ENCOUNTER 2022-08-14 13:33 | Emergency (ER) | payer OTHER, SELFPAY ==
[2022-06-07 07:30] VITALS: PULSE 84; RESP 20; O2SAT 99
[2022-06-30 15:01] VITALS: BMI 43.0
[2022-08-14] VITALS (14 sets, daily range): BP systolic 126–164; BP diastolic 59–75; PULSE 78–96; RESP 22–25; TEMP 36.6; O2SAT 95–99; BMI 52.9
--- NOTE | 2022-08-14 13:46 | ED.GENADULT ---
HPI - General Adult <Yessica Holder PA-C - Last Filed: 08/14/22 20:21> General Chief complaint: Extremity Problem,Nontraumatic Stated complaint: INR to high, L leg pain/clot per pt, sent for CT Time Seen by Provider: 08/14/22 13:44 History of Present Illness HPI narrative: 72-year-old female with past medical history DVT, CHF, PE, NSTEMI, asthma, sleep apnea, osteopenia, fibromyalgia, GERD, hypothyroidism, diabetes, hypertension, hyperlipidemia presents to the ED with left upper leg and groin pain. Patient was diagnosed with a DVT last week, started on Lovenox injections. Patient states that she felt a popping/tearing sensation in her left upper thigh yesterday following which she has experienced significant pain. Patient was seen by her PCP this morning, sent to the ED for a CT scan to rule out a soft tissue bleed. Patient's INR was also tested and found to be elevated to 8. Patient's PCP is managing this. Patient denies chest pain, shortness of breath, numbness, tingling, weakness, abdominal pain, nausea, vomiting. Related Data Home Medications Medication Instructions Recorded Confirmed polyethylene glycol 3350 17 17 gm PO DAILY PRN Constipation ##0 06/06/17 06/30/22 gram/dose oral powder (Miralax) albuterol sulfate 90 mcg/actuation 2 puff inhalation Q4-6H PRN 05/29/19 06/30/22 aerosol inhaler Shortness Of Breath cholecalciferol (vitamin D3) 50 2,000 unit PO DAILY 05/29/19 06/30/22 mcg (2,000 unit) tablet ferrous sulfate 325 mg (65 mg 325 mg PO BEDTIME 05/29/19 06/30/22 iron) tablet immune glob,gamm(IgG) 10 %-pro-IgA 45 gram IV Q3W 05/29/19 06/30/22 0 to 50 mcg/mL intravenous solution (Privigen) spironolactone 50 mg tablet 50 mg PO DAILY 05/29/19 06/30/22 tizanidine 4 mg capsule 4 mg PO QID PRN Muscle Spasm 05/29/19 06/30/22 sodium chloride 3 % for 3 ml inhalation BID 06/05/19 06/30/22 nebulization cetirizine 10 mg capsule (Zyrtec) 10 mg PO DAILY allergies 01/20/20 06/30/22 montelukast 10 mg tablet 10 mg PO BEDTIME 01/20/20 06/30/22 (Singulair) atorvastatin 40 mg tablet 40 mg PO BEDTIME 04/20/21 06/30/22 epinephrine 0.3 mg/0.3 mL 0.3 mg IM Q5-15M PRN Allergic 04/20/21 06/30/22 injection, auto-injector (EpiPen) Reaction insulin glargine 100 unit/mL 30 unit SUBCUT QAM 04/20/21 06/30/22 subcutaneous solution insulin lispro 100 unit/mL 4 - 8 unit SUBCUT TID 04/20/21 06/30/22 subcutaneous pen (Humalog KwikPen (U-100) Insulin) ipratropium 0.5 mg-albuterol 3 mg 3 ml inhalation BID 04/20/21 06/30/22 (2.5 mg base)/3 mL nebulization soln levothyroxine 75 mcg tablet 75 mcg PO QAM 04/20/21 06/30/22 nortriptyline 25 mg capsule 25 mg PO BEDTIME 04/20/21 06/30/22 tiotropium bromide 18 mcg capsule 1 cap inhalation DAILY 04/20/21 06/30/22 with inhalation device (Spiriva with HandiHaler) lansoprazole 15 mg capsule,delayed 30 mg PO BID 04/29/21 06/30/22 release (Prevacid 24Hr) duloxetine 30 mg capsule,delayed 30 mg PO DAILY 06/28/21 06/30/22 release fluticasone 500 mcg-salmeterol 50 1 inh inhalation BID 06/28/21 06/30/22 mcg/dose blistr powdr for inhalation (Wixela Inhub) guaifenesin 1,200 mg tablet, 1,200 mg PO BID 06/28/21 06/30/22 extended release 12 hr (Mucinex) oxycodone-acetaminophen 10 mg-325 1 tab PO Q4H PRN Pain (Scale Score 06/28/21 06/30/22 mg tablet (Percocet) 4-6) pramipexole 0.5 mg tablet 0.5 mg PO BEDTIME 06/28/21 06/30/22 docusate sodium 100 mg tablet 200 mg PO DAILY 04/24/22 06/30/22 metoprolol succinate 25 mg 12.5 mg PO BID 04/24/22 06/30/22 tablet,extended release 24 hr omega-3 fatty acids 1,000 mg PO DAILY 04/24/22 06/30/22 benralizumab 30 mg/mL subcutaneous 30 mg SUBCUT Q8W 06/03/22 06/30/22 syringe (Fasenra) mecujjxxbi-gpynvjtxmsjkp-jkdrmely 1 tab PO Q6H PRN Migraine Headache 06/03/22 06/30/22 50 mg-325 mg-40 mg tablet clonidine HCl 0.1 mg tablet 0.05 mg PO BID 06/03/22 06/30/22 oxycodone 5 mg capsule 5 mg PO Q6H PRN Pain (Scale Score 06/03/22 06/30/22 7-10) oxymetazoline 0.05 % nasal drops 1 drp intranasal BID PRN Congestion 06/03/22 06/30/22 prednisone 5 mg tablet 5 mg PO DAILY 06/03/22 06/30/22 Previous Rx's Medication Instructions Recorded ondansetron HCl 4 mg tablet 4 mg PO Q8H PRN nausea and 10/06/19 (Zofran) vomiting #30 tabs verio reflect glucometer #1 ea 01/28/20 insulin syringe-needle U-100 0.5 #100 ea 03/30/20 mL 31 gauge x 5/16 (BD Insulin Syringe Ultra-Fine) losartan 50 mg tablet 50 mg PO DAILY #90 tabs 08/05/20 metformin 1,000 mg tablet 1,000 mg PO BID #180 tabs 09/03/20 apixaban 5 mg (74 tabs) tablets in 5 mg PO BID #74 ea 05/01/21 a dose pack fentanyl 25 mcg/hr transdermal 1 patch transdermal Q72H PRN pain 02/05/22 patch (scale score 1-3) #5 ea enoxaparin 100 mg/mL subcutaneous 100 mg SUBCUT Q12H 14 days #28 mL 08/07/22 syringe (Lovenox) cephalexin 500 mg capsule 500 mg PO TID 5 days #15 caps 08/14/22 Allergies Allergy/AdvReac Type Severity Reaction Status Date / Time hydroxychloroquine Allergy Unknown Verified 08/14/22 13:56 [HYDROXYCHLOROQUINE] promethazine [From Phenergan] Allergy Agitated Verified 08/14/22 13:56 cefepime AdvReac Intermediate pruritis Verified 08/14/22 13:56 Review of Systems <Yessica Holder PA-C - Last Filed: 08/14/22 20:21> Review of Systems ROS Unobtainable: All systems reviewed & are unremarkable except as noted in HPI and below Constitutional Constitutional: Denies chills, Denies fatigue, Denies fever(s), Denies frequent falls, Denies lethargy and Denies weakness Eyes Eyes: Denies change in vision, Denies eye discharge, Denies irritation and Denies loss of vision ENT Ears, Nose, Mouth, and Throat: Denies change in voice, Denies dizziness, Denies neck pain, Denies sore throat and Denies throat swelling Cardiovascular Cardiovascular: Denies chest pain, Denies irregular heart rhythm, Denies lightheadedness, Denies palpitations, Denies dyspnea, Denies dyspnea on exertion and Denies orthopnea Respiratory Respiratory: Denies cough, Denies dyspnea, Denies dyspnea on exertion and Denies wheezing Gastrointestinal Gastrointestinal: Denies abdominal pain, Denies change in bowel habits, Denies diarrhea, Denies nausea and Denies vomiting Genitourinary Genitourinary: Denies hematuria, Denies flank pain, Denies urinary incontinence and Denies urinary urgency Musculoskeletal Musculoskeletal: Denies back pain, Denies muscle weakness, Denies neck pain, Denies numbness and Denies tingling Comments: Left leg pain Integumentary/Breasts Skin/Breast: Denies pruritus, Denies erythema, Denies rash and Denies wounds Neurologic Neurologic: Denies behavioral changes, Denies confusion, Denies dizziness, Denies frequent falls, Denies loss of vision, Denies numbness, Denies tingling and Denies weakness Psychiatric Psychiatric: Denies anxiety, Denies behavioral changes, Denies confusion, Denies depression, Denies homicidal ideation and Denies suicidal ideation Endocrine Endocrine: Denies fatigue, Denies flushing and Denies palpitations Hematologic/Lymphatic Hematologic/Lymphatic: Denies easy bruising Allergic/Immunologic Allergic/Immunologic: Denies urticaria, Denies throat swelling and Denies wheezing Patient History <Yessica Holder PA-C - Last Filed: 08/14/22 20:21> Medical History Abnormal chest xray (~1979) Anemia Ankle pain Anticoagulated Asthma (~1959) Bronchiectasis (~2006) Cervical spine disease Chronic back pain Colon polyps (~2015) Degenerative joint disease of spine (~2001) Diabetes mellitus, type II (~2009) Eczema Fibromyalgia Foot pain Hoarseness Hyperlipidemia Hypertension Hypothyroidism Migraines (~1964) 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 Osteopenia Pneumonia Pneumonia Recurrent sinusitis (~1970) Restless leg syndrome Shoulder pain (~03/2018) Sleep apnea Wears glasses Surgical History Anesthesia History of carpal tunnel release History of cataract removal with insertion of prosthetic lens (~2014) History of section History of laminectomy (~2002) History of spinal fusion (~2012) History of thumb surgery Family History Father Stroke Mother Hypertension Brother Cerebral aneurysm Prostate cancer Diabetes mellitus Hypertension Stroke Brother Arthritis Hyperlipidemia Hypertension Sister History of kidney cancer Hypertension Grandfather Cancer Grandmother Cancer Other Family history non-contributory Social History household members: spouse Smoking Status: Never smoker alcohol intake: current Smoking Status: Never smoker alcohol intake frequency: holidays/special occasions only Substance Use Type: does not use Exam <Yessica Holder PA-C - Last Filed: 08/14/22 20:21> Narrative Exam Narrative: Const General:?cooperative, healthy appearing and comfortable [facility] Head:?normal to inspection Ears:?hearing grossly normal bilaterally Nose:?external nose normal Face and sinus:?normal facial exam and sinuses nontender Mouth:?oral mucosae normal Throat:?posterior oropharynx normal Eyes General:?appearance normal, both eyes and all related structures Neck Neck:?normal visual inspection and no lymphadenopathy noted Resp Effort & Inspection:?normal respiratory effort Auscultation:?clear to auscultation bilaterally Cardio Rate:?regular rate Rhythm:?regular rhythm Musculoskeletal There is full range of motion. Strength and sensation is intact. No redness, bruising, swelling, deformities, bony tenderness to palpation noted on exam. Patient appears neurovascularly intact. Neuro General:?patient alert, patient awake and patient oriented x3 Initial Vital Signs Initial Vital Signs: Vital Signs Temperature 97.9 F 08/14/22 13:52 Pulse Rate 82 08/14/22 13:52 Respiratory Rate 22 08/14/22 13:52 Blood Pressure 157/69 H 08/14/22 13:52 Pulse Oximetry 96 08/14/22 13:52 Oxygen Delivery Method Nasal Cannula 08/14/22 13:52 Oxygen Flow Rate 3 08/14/22 13:52 <Bernabe Najera DO - Last Filed: 08/15/22 07:20> Initial Vital Signs Initial Vital Signs: Vital Signs Temperature 97.9 F 08/14/22 13:52 Pulse Rate 82 08/14/22 13:52 Respiratory Rate 22 08/14/22 13:52 Blood Pressure 157/69 H 08/14/22 13:52 Pulse Oximetry 96 08/14/22 13:52 Oxygen Delivery Method Nasal Cannula 08/14/22 13:52 Oxygen Flow Rate 3 08/14/22 13:52 Course <Yessica Holder PA-C - Last Filed: 08/14/22 20:21> Orders Ordered: Discontinued Medications Morphine Sulfate (Morphine 4 Mg/Ml Inj) 4 mg IV NOW ONE Stop: 08/14/22 14:28 Last Admin: 08/14/22 14:32 Dose: 4 mg Documented By: RB Morphine Sulfate (Morphine 4 Mg/Ml Inj) 4 mg IV NOW ONE Stop: 08/14/22 16:29 Last Admin: 08/14/22 16:32 Dose: 4 mg Documented By: RB Morphine Sulfate (Morphine 4 Mg/Ml Inj) 4 mg IV NOW ONE Stop: 08/14/22 16:59 Last Admin: 08/14/22 17:33 Dose: Not Given Documented By: RB Vital Signs Vital signs: Vital Signs - 8 hr 08/14/22 13:52 08/14/22 14:05 08/14/22 14:04 Temperature 97.9 F Pulse Rate 82 86 Pulse Rate [Left Dorsalis Pedis] 78 Respiratory Rate 22 Blood Pressure 157/69 H Pulse Oximetry 96 96 Oxygen Delivery Method Nasal Cannula Oxygen Flow Rate 3 08/14/22 14:04 08/14/22 14:30 08/14/22 14:30 Temperature Pulse Rate 87 Pulse Rate [Left Dorsalis Pedis] Respiratory Rate 24 Blood Pressure 126/59 L 130/63 Pulse Oximetry 95 Oxygen Delivery Method Oxygen Flow Rate 08/14/22 15:12 08/14/22 15:30 08/14/22 16:00 Temperature Pulse Rate 89 85 Pulse Rate [Left Dorsalis Pedis] Respiratory Rate 22 Blood Pressure 137/68 Pulse Oximetry 98 98 Oxygen Delivery Method Oxygen Flow Rate 08/14/22 16:00 08/14/22 16:30 08/14/22 16:31 Temperature Pulse Rate 87 96 H Pulse Rate [Left Dorsalis Pedis] Respiratory Rate 24 Blood Pressure 164/75 H Pulse Oximetry 99 95 Oxygen Delivery Method Oxygen Flow Rate 08/14/22 16:31 08/14/22 16:38 08/14/22 16:38 Temperature Pulse Rate 92 H 83 Pulse Rate [Left Dorsalis Pedis] Respiratory Rate Blood Pressure 151/74 H Pulse Oximetry 95 97 Oxygen Delivery Method Oxygen Flow Rate 08/14/22 17:00 08/14/22 17:01 08/14/22 17:01 Temperature Pulse Rate 83 82 Pulse Rate [Left Dorsalis Pedis] Respiratory Rate 25 H Blood Pressure 144/71 H Pulse Oximetry 97 98 Oxygen Delivery Method Oxygen Flow Rate 08/14/22 17:30 08/14/22 17:31 Temperature Pulse Rate 87 Pulse Rate [Left Dorsalis Pedis] Respiratory Rate Blood Pressure 160/74 H Pulse Oximetry 96 Oxygen Delivery Method Oxygen Flow Rate <Bernabe Najera DO - Last Filed: 08/15/22 07:20> Orders Ordered: Discontinued Medications Morphine Sulfate (Morphine 4 Mg/Ml Inj) 4 mg IV NOW ONE Stop: 08/14/22 14:28 Last Admin: 08/14/22 14:32 Dose: 4 mg Documented By: RB Morphine Sulfate (Morphine 4 Mg/Ml Inj) 4 mg IV NOW ONE Stop: 08/14/22 16:29 Last Admin: 08/14/22 16:32 Dose: 4 mg Documented By: RB Morphine Sulfate (Morphine 4 Mg/Ml Inj) 4 mg IV NOW ONE Stop: 08/14/22 16:59 Last Admin: 08/14/22 17:33 Dose: Not Given Documented By: KAREL Vital Signs Vital signs: Vital Signs - 8 hr 08/14/22 13:52 08/14/22 14:05 08/14/22 14:04 Temperature 97.9 F Pulse Rate 82 86 Pulse Rate [Left Dorsalis Pedis] 78 Respiratory Rate 22 Blood Pressure 157/69 H Pulse Oximetry 96 96 Oxygen Delivery Method Nasal Cannula Oxygen Flow Rate 3 08/14/22 14:04 08/14/22 14:30 08/14/22 14:30 Temperature Pulse Rate 87 Pulse Rate [Left Dorsalis Pedis] Respiratory Rate 24 Blood Pressure 126/59 L 130/63 Pulse Oximetry 95 Oxygen Delivery Method Oxygen Flow Rate 08/14/22 15:12 08/14/22 15:30 08/14/22 16:00 Temperature Pulse Rate 89 85 Pulse Rate [Left Dorsalis Pedis] Respiratory Rate 22 Blood Pressure 137/68 Pulse Oximetry 98 98 Oxygen Delivery Method Oxygen Flow Rate 08/14/22 16:00 08/14/22 16:30 08/14/22 16:31 Temperature Pulse Rate 87 96 H Pulse Rate [Left Dorsalis Pedis] Respiratory Rate 24 Blood Pressure 164/75 H Pulse Oximetry 99 95 Oxygen Delivery Method Oxygen Flow Rate 08/14/22 16:31 08/14/22 16:38 08/14/22 16:38 Temperature Pulse Rate 92 H 83 Pulse Rate [Left Dorsalis Pedis] Respiratory Rate Blood Pressure 151/74 H Pulse Oximetry 95 97 Oxygen Delivery Method Oxygen Flow Rate 08/14/22 17:00 08/14/22 17:01 08/14/22 17:01 Temperature Pulse Rate 83 82 Pulse Rate [Left Dorsalis Pedis] Respiratory Rate 25 H Blood Pressure 144/71 H Pulse Oximetry 97 98 Oxygen Delivery Method Oxygen Flow Rate 08/14/22 17:30 08/14/22 17:31 Temperature Pulse Rate 87 Pulse Rate [Left Dorsalis Pedis] Respiratory Rate Blood Pressure 160/74 H Pulse Oximetry 96 Oxygen Delivery Method Oxygen Flow Rate Medical Decision Making <Yessica Holder PA-C - Last Filed: 08/14/22 20:21> MDM Narrative Medical decision making narrative: 72-year-old female with past medical history DVT, CHF, PE, NSTEMI, asthma, sleep apnea, osteopenia, fibromyalgia, GERD, hypothyroidism, diabetes, hypertension, hyperlipidemia presents to the ED with left upper leg and groin pain. Concern for soft tissue bleeds versus abscess versus cellulitis versus musculoskeletal sprain/strain versus other. Obtained lower extremity CT which showed soft tissue swelling which may be secondary to infection (cellulitis), venous obstruction or lymphatic obstruction. Discussed findings with patient. This prescribed antibiotics for possible cellulitis. Patient's pain was well controlled with morphine. Patient agrees to take Percocet at home for pain control which he already has. Patient agrees to follow-up with her PCP as soon as possible to further evaluate the leg pain as well as manage the INR. ED return precautions were discussed with patient. Patient verbalized understanding. Medical records reviewed: Yes Discharge Plan Departure Patient Disposition: Home Clinical Impression: Leg pain Instructions: DI for Cellulitis -- Adult, DI for Deep Vein Thrombosis Activity Restrictions/Additional Instructions: You were evaluated in the ED for left upper leg pain. Your CT scan did not show any muscle tears or ruptures. It it shows some soft tissue swelling which could be either due to your DVT or a skin infection (cellulitis). You are being prescribed antibiotics for the possible skin infection. Given that you already have Percocet at home, you may continue to take it for the pain. Please follow-up with your PCP as soon as possible for further evaluation of th leg as well as to monitor your INR. Prescriptions: New cephalexin 500 mg capsule 500 mg PO TID 5 Days Qty: 15 0RF No Action polyethylene glycol 3350 [Miralax] 119 GM powder 17 gm PO DAILY PRN (Reason: Constipation) Qty: 0 ondansetron HCl [Zofran] 4 mg tablet 4 mg PO Q8H PRN (Reason: nausea and vomiting) Qty: 30 1RF (DME) insulin syringe-needle U-100 [BD Insulin Syringe Ultra-Fine] 0.5 mL 31 gauge x 5/16 syringe See Rx Instructions .ROUTE .MEDSUPPLY Qty: 100 1RF Rx Instructions: Use once a day as directed losartan 50 mg tablet 50 mg PO DAILY Qty: 90 0RF metformin 1,000 mg tablet 1,000 mg PO BID Qty: 180 0RF (DME) verio reflect glucometer Qty: 1 0RF Rx Instructions: As directed Privigen 10 % solution 45 gram IV Q3W ferrous sulfate 325 mg (65 mg iron) tablet 325 mg PO BEDTIME spironolactone 50 mg tablet 50 mg PO DAILY tizanidine 4 mg capsule 4 mg PO QID PRN (Reason: Muscle Spasm) cholecalciferol (vitamin D3) 2,000 unit tablet 2,000 unit PO DAILY albuterol sulfate 90 mcg/actuation HFA aerosol inhaler 2 puff INHALATION Q4-6H PRN (Reason: Shortness Of Breath) lansoprazole [Prevacid 24Hr] 15 mg Capsule,Delayed Release(Dr/Ec) 30 mg PO BID apixaban 5 mg (74 tabs) tablets,dose pack 5 mg PO BID Qty: 74 0RF fentanyl 25 mcg/hr patch 72 hour 1 patch transdermal Q72H PRN (Reason: pain (scale score 1-3)) Qty: 5 0RF Patient Comments: placed today at home omega-3 fatty acids Capsule 1,000 mg PO DAILY docusate sodium 100 mg Tablet 200 mg PO DAILY metoprolol succinate 25 mg Tablet Extended Release 24 Hr 12.5 mg PO BID sodium chloride 3 % Solution For Nebulization 3 ml INHALATION BID Rx Instructions: use w/ nebulizer 2 x daily montelukast [Singulair] 10 mg Tablet 10 mg PO BEDTIME Zyrtec 10 mg Capsule 10 mg PO DAILY atorvastatin 40 mg Tablet 40 mg PO BEDTIME ipratropium-albuterol 0.5 mg-3 mg(2.5 mg base)/3 mL Solution For Nebulization 3 ml INHALATION BID Rx Instructions: and every 4 hours as needed levothyroxine 75 mcg Tablet 75 mcg PO QAM nortriptyline 25 mg Capsule 25 mg PO BEDTIME epinephrine [EpiPen] 0.3 mg/0.3 mL Auto-Injector 0.3 mg IM Q5-15M PRN (Reason: Allergic Reaction) Rx Instructions: do not exceed 3 doses per episode Spiriva with HandiHaler 18 mcg Capsule, W/Inhalation Device 1 cap INHALATION DAILY Rx Instructions: puncture 1 cap using device; one dose = 2 inhalations insulin glargine 100 unit/mL solution 30 unit SUBCUT QAM insulin lispro [Humalog KwikPen Insulin] 100 unit/mL insulin pen 4 - 8 unit SUBCUT TID pramipexole 0.5 mg tablet 0.5 mg PO BEDTIME fluticasone propion-salmeterol [Wixela Inhub] 500-50 mcg/dose Blister With Device 1 inh INHALATION BID duloxetine 30 mg Capsule,Delayed Release(Dr/Ec) 30 mg PO DAILY oxycodone-acetaminophen [Percocet] 10-325 mg Tablet 1 tab PO Q4H PRN (Reason: Pain (Scale Score 4-6)) Mucinex 1,200 mg Tablet Extended Release 12hr 1,200 mg PO BID clonidine HCl 0.1 mg tablet 0.05 mg PO BID prednisone 5 mg tablet 5 mg PO DAILY qsjxmoeslh-cbfvikjafovpw-skyj 50-325-40 mg Tablet 1 tab PO Q6H PRN (Reason: Migraine Headache) oxycodone 5 mg Capsule 5 mg PO Q6H PRN (Reason: Pain (Scale Score 7-10)) oxymetazoline 0.05 % Drops 1 drp INTRANASAL BID PRN (Reason: Congestion) Fasenra 30 mg/mL Syringe 30 mg SUBCUT Q8W enoxaparin [Lovenox] 100 mg/mL syringe 100 mg SUBCUT Q12H 14 Days Qty: 28 0RF Referrals: Karin Porter MD [Primary Care Provider] - Stand Alone Forms: Patient Portal/API <Bernabe Najera DO - Last Filed: 08/15/22 07:20> Cosign ED Attending Cosignature Attestation: Dr Najera Co-Sign Statement: I was available for consultation during this patient's emergency department visit. This chart is signed by myself for administrative purposes only. I did not have direct contact with this patient during this visit. They were seen independently by the APC.
--- NOTE | 2022-08-14 14:25 | DI.CT.S_ITS ---
PROCEDURE: CT LE LT W CON INDICATIONS: L leg, groin pain; on Lovenox TECHNIQUE: After the administration of intravenous contrast, 3 mm axial sections acquired of the left lower extremity, with coronal and sagittal reformats. COMPARISON: [facility], , [facility], 08/07/2022, 12:04. FINDINGS: Image quality: Excellent. Bones: No fracture or dislocation. Severe tricompartmental left knee joint degeneration. Mild left hip joint degeneration. Degenerative and postsurgical changes in the lower lumbar spine. Soft tissues: Small knee joint effusion. Diffuse soft tissue swelling. IMPRESSION: 1. No acute osseous abnormalities. 2. Degenerative joint disease, severe in left knee and mild in left hip. 3. Soft tissue swelling which may be secondary to infection (cellulitis), venous obstruction or lymphatic obstruction. 4. Small knee joint effusion. Dictated by: Aubree Bardales M.D. on 08/14/2022 at 15:30 Approved by: Aubree Bardales M.D. on 08/14/2022 at 15:36
[2022-08-14] MEDS: MORPHINE 4 MG/ML INJ IV ×2 (14:32→16:32)
== END 2022-08-14 17:50 | disposition home or self-care (01) ==
PROVIDERS: Emergency Provider Student in an Organized Health Care Education/Training Program; Family Provider Internal Medicine Infectious Disease; PCP Internal Medicine
DX: M79.605 Pain in left leg (principal); I82.402 Acute embolism and thrombosis of unspecified deep veins of left lower extremity
CPT/HCPCS: 36415; 73701; 96374; 96376; 99284; 99285; J2270; Q9967

== ENCOUNTER 2022-08-15 16:10 | Emergency (ER) | payer OTHER, SELFPAY ==
[2022-06-07 07:30] VITALS: PULSE 84; RESP 20; O2SAT 99
[2022-06-30 15:01] VITALS: BMI 43.0
[2022-08-15] VITALS (7 sets, daily range): BP systolic 90–117; BP diastolic 54–69; PULSE 99–121; RESP 18–24; TEMP 36.7; O2SAT 90–100; BMI 34.2
--- NOTE | 2022-08-15 17:34 | ED.EXTPRO ---
HPI - Extremity Problem <Bernabe Najera, DO - Last Filed: 08/17/22 07:14> General Chief complaint: Extremity Problem,Nontraumatic Stated complaint: DVT seen yesterday getting worse Time Seen by Provider: 08/15/22 17:25 Source: patient, family and EMS Mode of arrival: EMS Limitations: no limitations History of Present Illness HPI Narrative: Patient is a 72-year-old female. Has a known left lower extremity DVT. She has had a PE in the past. She was brought to the emergency department yesterday after having a supratherapeutic INR. It was reported that she had failed apixaban so she was being transitioned from Lovenox to Coumadin. She had pain in her left outer thigh and there was an evaluation for potential hematoma in this area. No CT scan was performed the did just show some thickening of the skin. She was placed on antibiotics for concern about potential infection. She returns to emergency department today now complaining of shortness of breath. She does have COPD in his home oxygen but she feels like this is worse than normal. She also has lower abdominal pain. She states the pain medicine she has at home is not controlling her symptoms. No fevers. No new falls. Related Data Home Medications Medication Instructions Recorded Confirmed polyethylene glycol 3350 17 17 gm PO DAILY PRN Constipation ##0 06/06/17 06/30/22 gram/dose oral powder (Miralax) albuterol sulfate 90 mcg/actuation 2 puff inhalation Q4-6H PRN 05/29/19 06/30/22 aerosol inhaler Shortness Of Breath cholecalciferol (vitamin D3) 50 2,000 unit PO DAILY 05/29/19 06/30/22 mcg (2,000 unit) tablet ferrous sulfate 325 mg (65 mg 325 mg PO BEDTIME 05/29/19 06/30/22 iron) tablet immune glob,gamm(IgG) 10 %-pro-IgA 45 gram IV Q3W 05/29/19 06/30/22 0 to 50 mcg/mL intravenous solution (Privigen) spironolactone 50 mg tablet 50 mg PO DAILY 05/29/19 06/30/22 tizanidine 4 mg capsule 4 mg PO QID PRN Muscle Spasm 05/29/19 06/30/22 sodium chloride 3 % for 3 ml inhalation BID 06/05/19 06/30/22 nebulization cetirizine 10 mg capsule (Zyrtec) 10 mg PO DAILY allergies 01/20/20 06/30/22 montelukast 10 mg tablet 10 mg PO BEDTIME 01/20/20 06/30/22 (Singulair) atorvastatin 40 mg tablet 40 mg PO BEDTIME 04/20/21 06/30/22 epinephrine 0.3 mg/0.3 mL 0.3 mg IM Q5-15M PRN Allergic 04/20/21 06/30/22 injection, auto-injector (EpiPen) Reaction insulin glargine 100 unit/mL 30 unit SUBCUT QAM 04/20/21 06/30/22 subcutaneous solution insulin lispro 100 unit/mL 4 - 8 unit SUBCUT TID 04/20/21 06/30/22 subcutaneous pen (Humalog KwikPen (U-100) Insulin) ipratropium 0.5 mg-albuterol 3 mg 3 ml inhalation BID 04/20/21 06/30/22 (2.5 mg base)/3 mL nebulization soln levothyroxine 75 mcg tablet 75 mcg PO QAM 04/20/21 06/30/22 nortriptyline 25 mg capsule 25 mg PO BEDTIME 04/20/21 06/30/22 tiotropium bromide 18 mcg capsule 1 cap inhalation DAILY 04/20/21 06/30/22 with inhalation device (Spiriva with HandiHaler) lansoprazole 15 mg capsule,delayed 30 mg PO BID 04/29/21 06/30/22 release (Prevacid 24Hr) duloxetine 30 mg capsule,delayed 30 mg PO DAILY 06/28/21 06/30/22 release fluticasone 500 mcg-salmeterol 50 1 inh inhalation BID 06/28/21 06/30/22 mcg/dose blistr powdr for inhalation (Wixela Inhub) guaifenesin 1,200 mg tablet, 1,200 mg PO BID 06/28/21 06/30/22 extended release 12 hr (Mucinex) oxycodone-acetaminophen 10 mg-325 1 tab PO Q4H PRN Pain (Scale Score 06/28/21 06/30/22 mg tablet (Percocet) 4-6) pramipexole 0.5 mg tablet 0.5 mg PO BEDTIME 06/28/21 06/30/22 docusate sodium 100 mg tablet 200 mg PO DAILY 04/24/22 06/30/22 metoprolol succinate 25 mg 12.5 mg PO BID 04/24/22 06/30/22 tablet,extended release 24 hr omega-3 fatty acids 1,000 mg PO DAILY 04/24/22 06/30/22 benralizumab 30 mg/mL subcutaneous 30 mg SUBCUT Q8W 06/03/22 06/30/22 syringe (Fasenra) qjjtbmqgvw-binvbkevkquzi-yuvwjglz 1 tab PO Q6H PRN Migraine Headache 06/03/22 06/30/22 50 mg-325 mg-40 mg tablet clonidine HCl 0.1 mg tablet 0.05 mg PO BID 06/03/22 06/30/22 oxycodone 5 mg capsule 5 mg PO Q6H PRN Pain (Scale Score 06/03/22 06/30/22 7-10) oxymetazoline 0.05 % nasal drops 1 drp intranasal BID PRN Congestion 06/03/22 06/30/22 prednisone 5 mg tablet 5 mg PO DAILY 06/03/22 06/30/22 Previous Rx's Medication Instructions Recorded ondansetron HCl 4 mg tablet 4 mg PO Q8H PRN nausea and 10/06/19 (Zofran) vomiting #30 tabs verio reflect glucometer #1 ea 01/28/20 insulin syringe-needle U-100 0.5 #100 ea 03/30/20 mL 31 gauge x 5/16 (BD Insulin Syringe Ultra-Fine) losartan 50 mg tablet 50 mg PO DAILY #90 tabs 08/05/20 metformin 1,000 mg tablet 1,000 mg PO BID #180 tabs 09/03/20 apixaban 5 mg (74 tabs) tablets in 5 mg PO BID #74 ea 05/01/21 a dose pack fentanyl 25 mcg/hr transdermal 1 patch transdermal Q72H PRN pain 02/05/22 patch (scale score 1-3) #5 ea enoxaparin 100 mg/mL subcutaneous 100 mg SUBCUT Q12H 14 days #28 mL 08/07/22 syringe (Lovenox) cephalexin 500 mg capsule 500 mg PO TID 5 days #15 caps 08/14/22 Allergies Allergy/AdvReac Type Severity Reaction Status Date / Time hydroxychloroquine Allergy Unknown Verified 08/14/22 13:56 [HYDROXYCHLOROQUINE] promethazine [From Phenergan] Allergy Agitated Verified 08/14/22 13:56 cefepime AdvReac Intermediate pruritis Verified 08/14/22 13:56 Review of Systems <Bernabe Najera DO - Last Filed: 08/17/22 07:14> Review of Systems ROS Unobtainable: All systems reviewed & are unremarkable except as noted in HPI and below Patient History <Bernabe Najera DO - Last Filed: 08/17/22 07:14> Medical History Abnormal chest xray (~1979) Anemia Ankle pain Anticoagulated Asthma (~1959) Bronchiectasis (~2006) Cervical spine disease Chronic back pain Colon polyps (~2015) Degenerative joint disease of spine (~2001) Diabetes mellitus, type II (~2009) Eczema Fibromyalgia Foot pain Hoarseness Hyperlipidemia Hypertension Hypothyroidism Migraines (~1964) 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 Osteopenia Pneumonia Pneumonia Recurrent sinusitis (~1970) Restless leg syndrome Shoulder pain (~03/2018) Sleep apnea Wears glasses Surgical History Anesthesia History of carpal tunnel release History of cataract removal with insertion of prosthetic lens (~2014) History of section History of laminectomy (~2002) History of spinal fusion (~2012) History of thumb surgery Family History Father Stroke Mother Hypertension Brother Cerebral aneurysm Prostate cancer Diabetes mellitus Hypertension Stroke Brother Arthritis Hyperlipidemia Hypertension Sister History of kidney cancer Hypertension Grandfather Cancer Grandmother Cancer Other Family history non-contributory Social History household members: spouse Smoking Status: Never smoker alcohol intake: current Smoking Status: Never smoker alcohol intake frequency: holidays/special occasions only Substance Use Type: does not use Exam <Bernabe Najera DO - Last Filed: 08/17/22 07:14> Initial Vital Signs Initial Vital Signs: Vital Signs Temperature 98.1 F 08/15/22 16:20 Pulse Rate 121 H 08/15/22 16:20 Respiratory Rate 18 08/15/22 16:20 Blood Pressure 110/56 L 08/15/22 16:20 Pulse Oximetry 99 08/15/22 16:20 Oxygen Delivery Method Room Air 08/15/22 16:20 Const General: cooperative HENMT Head: normal to inspection and normocephalic Resp Effort & Inspection: tachypneic Auscultation: clear to auscultation bilaterally Cardio Rate: tachycardic Rhythm: regular rhythm GI Inspection: normal to inspection and non-distended Palpation: tender Skin Other: Bruising to left lower abdomen and left upper thigh Neuro General: patient alert, patient awake, patient oriented x3 and moves all extremities Extrem Other: Left thigh tenderness <Jose M Smith DO - Last Filed: 08/15/22 23:17> Initial Vital Signs Initial Vital Signs: Vital Signs Temperature 98.1 F 08/15/22 16:20 Pulse Rate 121 H 08/15/22 16:20 Respiratory Rate 18 08/15/22 16:20 Blood Pressure 110/56 L 08/15/22 16:20 Pulse Oximetry 99 08/15/22 16:20 Oxygen Delivery Method Room Air 08/15/22 16:20 Scores <Bernabe Najera DO - Last Filed: 08/17/22 07:14> GCS [place] coma scale eye opening: Spontaneous [place] coma scale verbal response: Orientated [place] coma scale motor response: Obey commands [place] coma scale total score: 15 <Jose M Smith DO - Last Filed: 08/15/22 23:17> GCS [place] coma scale total score: 15 Course <Bernabe Najera DO - Last Filed: 08/17/22 07:14> Orders Ordered: Discontinued Medications Hydromorphone HCl (Hydromorphone 1 Mg Inj) 1 mg IV NOW ONE Stop: 08/15/22 17:43 Last Admin: 08/15/22 17:54 Dose: 1 mg Documented By: KAVON Sodium Chloride (Normal Saline 0.9%) 1,000 mls @ 1,000 mls/hr IV BOLUS ONE Stop: 08/15/22 18:33 Last Infusion: 08/15/22 20:05 Dose: 0 mls/hr Documented By: Admin: 08/15/22 17:54 Dose: 1,000 mls/hr Documented By: KAVON Prothrombin Complex Concent ( Human) 5,000 unit/Miscellaneous 200 mls @ 712.8 mls/hr IV NOW ONE; Protocol Stop: 08/15/22 20:11 Last Infusion: 08/15/22 21:34 Dose: 0 unit/kg/min, 0 mls/hr Documented By: Admin: 08/15/22 20:56 Dose: 3 unit/kg/min, 712.8 mls/hr Documented By: DAWNA Phytonadione 10 mg/ Sodium (Chloride) 101 mls @ 202 mls/hr IV NOW ONE Stop: 08/15/22 19:53 Last Infusion: 08/15/22 21:11 Dose: 0 mls/hr Documented By: Admin: 08/15/22 20:15 Dose: 202 mls/hr Documented By: SWETHA Vital Signs Vital signs: Vital Signs - 8 hr 08/15/22 16:20 08/15/22 19:26 08/15/22 19:30 Temperature 98.1 F Pulse Rate 121 H 101 H 99 H Respiratory Rate 18 Blood Pressure 110/56 L Pulse Oximetry 99 96 100 Oxygen Delivery Method Room Air 08/15/22 19:53 08/15/22 19:53 08/15/22 20:00 Temperature Pulse Rate 101 H 101 H Respiratory Rate Blood Pressure 117/69 Pulse Oximetry 99 90 L Oxygen Delivery Method 08/15/22 20:30 08/15/22 20:31 08/15/22 20:31 Temperature Pulse Rate 112 H 111 H Respiratory Rate 24 24 Blood Pressure 90/54 L Pulse Oximetry 98 97 Oxygen Delivery Method <Jose M Smith DO - Last Filed: 08/15/22 23:17> Orders Ordered: Discontinued Medications Hydromorphone HCl (Hydromorphone 1 Mg Inj) 1 mg IV NOW ONE Stop: 08/15/22 17:43 Last Admin: 08/15/22 17:54 Dose: 1 mg Documented By: KAVON Sodium Chloride (Normal Saline 0.9%) 1,000 mls @ 1,000 mls/hr IV BOLUS ONE Stop: 08/15/22 18:33 Last Infusion: 08/15/22 20:05 Dose: 0 mls/hr Documented By: Admin: 08/15/22 17:54 Dose: 1,000 mls/hr Documented By: KAVON Prothrombin Complex Concent ( Human) 5,000 unit/Miscellaneous 200 mls @ 712.8 mls/hr IV NOW ONE; Protocol Stop: 08/15/22 20:11 Last Infusion: 08/15/22 21:34 Dose: 0 unit/kg/min, 0 mls/hr Documented By: Admin: 08/15/22 20:56 Dose: 3 unit/kg/min, 712.8 mls/hr Documented By: DAWNA Phytonadione 10 mg/ Sodium (Chloride) 101 mls @ 202 mls/hr IV NOW ONE Stop: 08/15/22 19:53 Last Infusion: 08/15/22 21:11 Dose: 0 mls/hr Documented By: Admin: 08/15/22 20:15 Dose: 202 mls/hr Documented By: SWETHA Consultations Consultation #1: [facility] - no access to IR [facility] - no beds. No waitlist [facility]/ - not specific dx, recommend calling [facility], Dr. Caballero happy to accept. Vital Signs Vital signs: Vital Signs - 8 hr 08/15/22 16:20 08/15/22 19:26 08/15/22 19:30 Temperature 98.1 F Pulse Rate 121 H 101 H 99 H Respiratory Rate 18 Blood Pressure 110/56 L Pulse Oximetry 99 96 100 Oxygen Delivery Method Room Air 08/15/22 19:53 08/15/22 19:53 08/15/22 20:00 Temperature Pulse Rate 101 H 101 H Respiratory Rate Blood Pressure 117/69 Pulse Oximetry 99 90 L Oxygen Delivery Method 08/15/22 20:30 08/15/22 20:31 08/15/22 20:31 Temperature Pulse Rate 112 H 111 H Respiratory Rate 24 24 Blood Pressure 90/54 L Pulse Oximetry 98 97 Oxygen Delivery Method MDM - Extremity (Nontraumatic) <Bernabe Najera DO - Last Filed: 08/17/22 07:14> Lab Data Attestation: I reviewed the patient's lab results. 08/15/22 20:00 08/15/22 17:49 Labs: Lab Results 08/15/22 08/15/22 08/15/22 Range/Units 17:49 17:49 17:49 WBC 15.6 H (4.5-11.0) X10^3/uL RBC 3.65 L (4.0-5.2) X10^6/uL Hgb 9.4 L (12.0-16.0) g/dL Hct 29.3 L (36-46) % MCV 80.3 (80-100) fL MCH 25.7 L (26-34) PG MCHC 32.0 (30-36) % RDW 22.0 H (11.6-14.8) % Plt Count 431 H (150-400) X10^3/uL Neut % (Auto) 83.1 H (50-75) % Lymph % (Auto) 8.0 L (25-40) % Pacific % (Auto) 7.6 (3-14) % Eos % (Auto) 0.8 L (2-4) % Baso % (Auto) 0.5 (0-2) % Neut # (Auto) 51974 H (1756-1513) /uL Lymph # (Auto) 1300 (2442-3124) /uL [place] # (Auto) 1200 H (0-900) /uL Eos # (Auto) 100 (0-450) /uL Baso # (Auto) 100 (0-100) /uL RBC Morphology See below Hypochromasia 1+ H Microcytosis 1+ H Schistocytes 1+ H PT 113.4 H (10.1-12.7) SECONDS INR 9.6 H* (0.9-1.3) APTT 55 H (26-36) SECONDS Sodium 131 L (137-145) mmol/L Potassium 4.8 (3.4-5.1) mmol/L Chloride 97 L (98-107) mmol/L Carbon Dioxide 27 (22-32) mmol/L BUN 18 H (7-17) mg/dL Creatinine 0.92 (0.52-1.04) mg/dL Estimated GFR > 60 (>60) mL/min BUN/Creatinine Ratio 19.6 (6-22) Glucose 208 H (80-110) mg/dL Calcium 8.8 (8.4-10.2) mg/dL Total Bilirubin 0.4 (0.2-1.3) mg/dL AST 37 H (14-36) IU/L ALT 37 H (<35) IU/L Alkaline Phosphatase 64 (38-126) U/L Total Protein 6.7 (6.3-8.2) g/dL Albumin 3.4 L (3.5-5.0) g/dL Globulin 3.3 (1.7-4.1) g/dL Albumin/Globulin Ratio 1.0 (1.0-2.8) Lipase 52 (23-300) U/L 08/15/22 Range/Units 20:00 WBC (4.5-11.0) X10^3/uL RBC (4.0-5.2) X10^6/uL Hgb 8.2 L (12.0-16.0) g/dL Hct 25.7 L (36-46) % MCV (80-100) fL MCH (26-34) PG MCHC (30-36) % RDW (11.6-14.8) % Plt Count (150-400) X10^3/uL Neut % (Auto) (50-75) % Lymph % (Auto) (25-40) % [place] % (Auto) (3-14) % Eos % (Auto) (2-4) % Baso % (Auto) (0-2) % Neut # (Auto) (2590-8750) /uL Lymph # (Auto) (4594-0973) /uL [place] # (Auto) (0-900) /uL Eos # (Auto) (0-450) /uL Baso # (Auto) (0-100) /uL RBC Morphology Hypochromasia Microcytosis Schistocytes PT (10.1-12.7) SECONDS INR (0.9-1.3) APTT (26-36) SECONDS Sodium (137-145) mmol/L Potassium (3.4-5.1) mmol/L Chloride (98-107) mmol/L Carbon Dioxide (22-32) mmol/L BUN (7-17) mg/dL Creatinine (0.52-1.04) mg/dL Estimated GFR (>60) mL/min BUN/Creatinine Ratio (6-22) Glucose (80-110) mg/dL Calcium (8.4-10.2) mg/dL Total Bilirubin (0.2-1.3) mg/dL AST (14-36) IU/L ALT (<35) IU/L Alkaline Phosphatase (38-126) U/L Total Protein (6.3-8.2) g/dL Albumin (3.5-5.0) g/dL Globulin (1.7-4.1) g/dL Albumin/Globulin Ratio (1.0-2.8) Lipase (23-300) U/L MDM Narrative Medical decision making narrative: Patient has a known DVT but now she is having worsening shortness of breath and tachycardia. Does have what patient states is new bruising over her left thigh. She does have bruising on her left lower abdomen which is most likely from her Lovenox shots. She now has new lower abdominal pain. Patient does require further evaluation with expanded CT scanning. Care turned over to Dr. Smith to follow-up on CT scans and disposition. <Jose M Smith DO - Last Filed: 08/15/22 23:17> Lab Data Labs: Lab Results 08/15/22 08/15/22 08/15/22 Range/Units 17:49 17:49 17:49 WBC 15.6 H (4.5-11.0) X10^3/uL RBC 3.65 L (4.0-5.2) X10^6/uL Hgb 9.4 L (12.0-16.0) g/dL Hct 29.3 L (36-46) % MCV 80.3 (80-100) fL MCH 25.7 L (26-34) PG MCHC 32.0 (30-36) % RDW 22.0 H (11.6-14.8) % Plt Count 431 H (150-400) X10^3/uL Neut % (Auto) 83.1 H (50-75) % Lymph % (Auto) 8.0 L (25-40) % [place] % (Auto) 7.6 (3-14) % Eos % (Auto) 0.8 L (2-4) % Baso % (Auto) 0.5 (0-2) % Neut # (Auto) 83509 H (0616-3059) /uL Lymph # (Auto) 1300 (1232-7658) /uL [place] # (Auto) 1200 H (0-900) /uL Eos # (Auto) 100 (0-450) /uL Baso # (Auto) 100 (0-100) /uL RBC Morphology See below Hypochromasia 1+ H Microcytosis 1+ H Schistocytes 1+ H PT 113.4 H (10.1-12.7) SECONDS INR 9.6 H* (0.9-1.3) APTT 55 H (26-36) SECONDS Sodium 131 L (137-145) mmol/L Potassium 4.8 (3.4-5.1) mmol/L Chloride 97 L (98-107) mmol/L Carbon Dioxide 27 (22-32) mmol/L BUN 18 H (7-17) mg/dL Creatinine 0.92 (0.52-1.04) mg/dL Estimated GFR > 60 (>60) mL/min BUN/Creatinine Ratio 19.6 (6-22) Glucose 208 H (80-110) mg/dL Calcium 8.8 (8.4-10.2) mg/dL Total Bilirubin 0.4 (0.2-1.3) mg/dL AST 37 H (14-36) IU/L ALT 37 H (<35) IU/L Alkaline Phosphatase 64 (38-126) U/L Total Protein 6.7 (6.3-8.2) g/dL Albumin 3.4 L (3.5-5.0) g/dL Globulin 3.3 (1.7-4.1) g/dL Albumin/Globulin Ratio 1.0 (1.0-2.8) Lipase 52 (23-300) U/L 08/15/22 Range/Units 20:00 WBC (4.5-11.0) X10^3/uL RBC (4.0-5.2) X10^6/uL Hgb 8.2 L (12.0-16.0) g/dL Hct 25.7 L (36-46) % MCV (80-100) fL MCH (26-34) PG MCHC (30-36) % RDW (11.6-14.8) % Plt Count (150-400) X10^3/uL Neut % (Auto) (50-75) % Lymph % (Auto) (25-40) % [place] % (Auto) (3-14) % Eos % (Auto) (2-4) % Baso % (Auto) (0-2) % Neut # (Auto) (7126-1870) /uL Lymph # (Auto) (7818-5356) /uL [place] # (Auto) (0-900) /uL Eos # (Auto) (0-450) /uL Baso # (Auto) (0-100) /uL RBC Morphology Hypochromasia Microcytosis Schistocytes PT (10.1-12.7) SECONDS INR (0.9-1.3) APTT (26-36) SECONDS Sodium (137-145) mmol/L Potassium (3.4-5.1) mmol/L Chloride (98-107) mmol/L Carbon Dioxide (22-32) mmol/L BUN (7-17) mg/dL Creatinine (0.52-1.04) mg/dL Estimated GFR (>60) mL/min BUN/Creatinine Ratio (6-22) Glucose (80-110) mg/dL Calcium (8.4-10.2) mg/dL Total Bilirubin (0.2-1.3) mg/dL AST (14-36) IU/L ALT (<35) IU/L Alkaline Phosphatase (38-126) U/L Total Protein (6.3-8.2) g/dL Albumin (3.5-5.0) g/dL Globulin (1.7-4.1) g/dL Albumin/Globulin Ratio (1.0-2.8) Lipase (23-300) U/L MDM Narrative Medical decision making narrative: Patient has a known DVT but now she is having worsening shortness of breath and tachycardia. Does have what patient states is new bruising over her left thigh. She does have bruising on her left lower abdomen which is most likely from her Lovenox shots. She now has new lower abdominal pain. Patient does require further evaluation with expanded CT scanning. Care turned over to Dr. Smith to follow-up on CT scans and disposition. [1900] (Luis) Patient received in sign out from [Dania]. I have reviewed the clinical course and performed an independent history and physical exam. She has pain and appears to be increasingly pale. CT results of just return and demonstrate a large hematoma in the left lower quadrant. Repeat labs ordered, vitamin K given IV, Kcentra ordered 50units/kg/dose 1929 - discussed with Dr. Kramer (Gen Surg) given history, exam and findings she recommends patient be transferred to a facility with the capability of IR 1999 -discussed with patient and , though she is DNR she is fully in agreement with any interventions needed Dr. Caballero ([facility] hospitalist) happy to accept patient in transfer <Jose M Smith, DO - Last Filed: 08/15/22 23:17> Critical Care Time Critical Care Time: Yes Total Critical Care Time: 35 Attestation: The high probability of a clinically significant, sudden or life threatening deterioration of the [CV] system(s) required my full and direct attention, intervention and personal management. The aggregate critical care time was [35] minutes. This time is in addition to time spent performing reported procedures but includes the following: [x] Data Review and interpretation [x] Patient assessment and monitoring of vital signs [x] Documentation [x] Medication orders and management Discharge Plan Departure Patient Disposition: [facility] Clinical Impression: Abdominal hematoma, Supratherapeutic INR Prescriptions: No Action polyethylene glycol 3350 [Miralax] 119 GM powder 17 gm PO DAILY PRN (Reason: Constipation) Qty: 0 ondansetron HCl [Zofran] 4 mg tablet 4 mg PO Q8H PRN (Reason: nausea and vomiting) Qty: 30 1RF (DME) insulin syringe-needle U-100 [BD Insulin Syringe Ultra-Fine] 0.5 mL 31 gauge x 5/16 syringe See Rx Instructions .ROUTE .MEDSUPPLY Qty: 100 1RF Rx Instructions: Use once a day as directed losartan 50 mg tablet 50 mg PO DAILY Qty: 90 0RF metformin 1,000 mg tablet 1,000 mg PO BID Qty: 180 0RF (DME) verio reflect glucometer Qty: 1 0RF Rx Instructions: As directed Privigen 10 % solution 45 gram IV Q3W ferrous sulfate 325 mg (65 mg iron) tablet 325 mg PO BEDTIME spironolactone 50 mg tablet 50 mg PO DAILY tizanidine 4 mg capsule 4 mg PO QID PRN (Reason: Muscle Spasm) cholecalciferol (vitamin D3) 2,000 unit tablet 2,000 unit PO DAILY albuterol sulfate 90 mcg/actuation HFA aerosol inhaler 2 puff INHALATION Q4-6H PRN (Reason: Shortness Of Breath) lansoprazole [Prevacid 24Hr] 15 mg Capsule,Delayed Release(Dr/Ec) 30 mg PO BID apixaban 5 mg (74 tabs) tablets,dose pack 5 mg PO BID Qty: 74 0RF fentanyl 25 mcg/hr patch 72 hour 1 patch transdermal Q72H PRN (Reason: pain (scale score 1-3)) Qty: 5 0RF Patient Comments: placed today at home omega-3 fatty acids Capsule 1,000 mg PO DAILY docusate sodium 100 mg Tablet 200 mg PO DAILY metoprolol succinate 25 mg Tablet Extended Release 24 Hr 12.5 mg PO BID sodium chloride 3 % Solution For Nebulization 3 ml INHALATION BID Rx Instructions: use w/ nebulizer 2 x daily montelukast [Singulair] 10 mg Tablet 10 mg PO BEDTIME Zyrtec 10 mg Capsule 10 mg PO DAILY atorvastatin 40 mg Tablet 40 mg PO BEDTIME ipratropium-albuterol 0.5 mg-3 mg(2.5 mg base)/3 mL Solution For Nebulization 3 ml INHALATION BID Rx Instructions: and every 4 hours as needed levothyroxine 75 mcg Tablet 75 mcg PO QAM nortriptyline 25 mg Capsule 25 mg PO BEDTIME epinephrine [EpiPen] 0.3 mg/0.3 mL Auto-Injector 0.3 mg IM Q5-15M PRN (Reason: Allergic Reaction) Rx Instructions: do not exceed 3 doses per episode Spiriva with HandiHaler 18 mcg Capsule, W/Inhalation Device 1 cap INHALATION DAILY Rx Instructions: puncture 1 cap using device; one dose = 2 inhalations insulin glargine 100 unit/mL solution 30 unit SUBCUT QAM insulin lispro [Humalog KwikPen Insulin] 100 unit/mL insulin pen 4 - 8 unit SUBCUT TID pramipexole 0.5 mg tablet 0.5 mg PO BEDTIME fluticasone propion-salmeterol [Wixela Inhub] 500-50 mcg/dose Blister With Device 1 inh INHALATION BID duloxetine 30 mg Capsule,Delayed Release(Dr/Ec) 30 mg PO DAILY oxycodone-acetaminophen [Percocet] 10-325 mg Tablet 1 tab PO Q4H PRN (Reason: Pain (Scale Score 4-6)) Mucinex 1,200 mg Tablet Extended Release 12hr 1,200 mg PO BID clonidine HCl 0.1 mg tablet 0.05 mg PO BID prednisone 5 mg tablet 5 mg PO DAILY [id number]-vegevmkvwqtbt-zufl 50-325-40 mg Tablet 1 tab PO Q6H PRN (Reason: Migraine Headache) oxycodone 5 mg Capsule 5 mg PO Q6H PRN (Reason: Pain (Scale Score 7-10)) oxymetazoline 0.05 % Drops 1 drp INTRANASAL BID PRN (Reason: Congestion) Fasenra 30 mg/mL Syringe 30 mg SUBCUT Q8W enoxaparin [Lovenox] 100 mg/mL syringe 100 mg SUBCUT Q12H 14 Days Qty: 28 0RF cephalexin 500 mg capsule 500 mg PO TID 5 Days Qty: 15 0RF Referrals: Karin Porter MD [Primary Care Provider] -
--- NOTE | 2022-08-15 17:35 | DI.CT.S_ITS ---
PROCEDURE: CT ANGIO CHEST PE PROTOCOL INDICATIONS: Chest pain, shortness of breath, tachycardia TECHNIQUE: After the administration of intravenous contrast, 2 mm thick sections acquired from the pulmonary apices to the posterior costophrenic angles. 3-dimensional maximum intensity projection (MIP) coronal and sagittal reformats were then acquired through the thorax. For radiation dose reduction, the following was used: automated exposure control, adjustment of mA and/or kV according to patient size. COMPARISON: [facility], CT, CT ANGIO CHEST PE PROTOCOL, 04/29/2021, 20:34. FINDINGS: Image quality: Excellent. Lungs and pleura: Bibasilar atelectasis. No acute air space opacities. No pleural effusions or pneumothorax. Central and peripheral airways are patent and normal in caliber. Mediastinum: Heart size is normal. The coronary arteries have atherosclerotic calcifications. No pericardial effusion. No mediastinal adenopathy by size criteria. Thoracic aorta and central pulmonary arteries are normal in size. Esophagus is normal in caliber. Small hiatal hernia. Bones and chest wall: No suspicious bony lesions. No vertebral body compression fractures. No axillary or supraclavicular adenopathy by size criteria. Thyroid gland is normal. Abdomen: Limited visualization of the upper abdomen shows no acute abnormality. IMPRESSION: No pulmonary embolism. Dictated by: Yonis Arambula M.D. on 08/15/2022 at 19:16 Approved by: Yonis Arambula M.D. on 08/15/2022 at 19:20
--- NOTE | 2022-08-15 17:36 | DI.CT.S_ITS ---
PROCEDURE: CT ABDOMEN PELVIS W CON INDICATIONS: high INR with LLQ pain and bruising TECHNIQUE: After the administration of intravenous contrast, axial sections acquired from the lung bases to the pubic symphysis. Coronal and sagittal reformats were performed. For radiation dose reduction, the following was used: automated exposure control, adjustment of mA and/or kV according to patient size. COMPARISON: None. FINDINGS: Image quality: Excellent. Lung bases: Lung bases are clear. Heart size is normal. Solid organs: Liver: The liver has no mass or intrahepatic biliary ductal dilatation. The portal vein and hepatic veins are patent. Biliary: The gallbladder is distended. No wall thickening or pericholecystic fluid. Pancreas: The pancreas has no mass or ductal dilatation. There is no surrounding inflammation. The pancreas is atrophic. Spleen: Normal size. There are no masses. Adrenals: No hypertrophy or nodules. Kidneys: No obstructive calculus or hydronephrosis. No solid mass. No cystic mass. Peritoneum and bowel: In the left lower quadrant there is a masslike density measuring 12.2 x 7.6 axial by 8.7 cm craniocaudal which contains layering density, likely a hematoma. There is also enlargement and heterogeneity of the left piriform is muscle likely also containing hematoma. Overlying soft tissue swelling anterior to the left hip is seen is well. The distal esophagus and stomach are normal. Periumbilical hernia with containing bowel. Small hiatal hernia. The small bowel has a normal caliber and appearance. The terminal ileum is normal. The large bowel has a normal caliber and appearance. The appendix is not definitively visualized and therefore acute appendicitis cannot be excluded; however there are no secondary findings to suggest acute appendicitis. No free fluid or air. Nodes and vessels: No retroperitoneal or mesenteric adenopathy by size criteria. The aorta has atherosclerosis with no aneurysmal dilatation. Miscellaneous: No abdominal wall mass or hernia. PELVIS: Genitourinary: The bladder has no wall thickening or mass. No bladder calcifications. Bones: Multilevel degenerative changes. L3, L4, and L5 pedicular screw and fercho fixation is present. Adjacent disc disease at L2-3 is severe. Severe disc disease is also present at T11-12. No vertebral body compression fractures. IMPRESSION: 1. Masslike density in the left lower quadrant likely a hematoma given history of on INR and bruising. 2. Enlargement of the left piriform is muscle likely also containing hematoma. 3. Other incidental findings as above. Dictated by: Yonis Arambula M.D. on 08/15/2022 at 19:20 Approved by: Yonis Arambula M.D. on 08/15/2022 at 19:30
[2022-08-15] MEDS: HYDROMORPHONE 1 MG INJ IV (17:54)
[2022-08-15] MEDS: SODIUM CHLORIDE 0.9% 1,000 ML 1000 ML IV (17:54)
[2022-08-15 18:03] LABS: Add Manual Diff / Slide Review NO; Basophils Absolute Auto 100 /uL (0-100); Basophils Percent Auto 0.5 % (0-2); Eosinophils Absolute Auto 100 /uL (0-450); Eosinophils Percent Auto 0.8 % (2-4); Hematocrit 29.3 % (36-46); Hemoglobin 9.4 g/dL (12.0-16.0); Lymphocytes Absolute Auto 1300 /uL (1100-4500); Mean Corpuscular Hemoglobin 25.7 PG (26-34); Mean Corpuscular Volume 80.3 fL (80-100); Monocytes Absolute Auto 1200 /uL (0-900); Monocytes Percent Auto 7.6 % (3-14); Neutrophils Absolute Auto 13000 /uL (1500-7000); Neutrophils Percent Auto 83.1 % (50-75); Platelet Count 431 X10^3/uL (150-400); Red Blood Cell Count 3.65 X10^6/uL (4.0-5.2); White Blood Cell Count 15.6 X10^3/uL (4.5-11.0)
[2022-08-15 18:23] LABS: PTT Partial Thromboplastin Tim 55 SECONDS (26-36)
[2022-08-15 18:25] LABS: Alanine Aminotransferase 37 IU/L (<35); Albumin 3.4 g/dL (3.5-5.0); Alkaline Phosphatase 64 U/L (38-126); Aspartate Aminotransferase 37 IU/L (14-36); BUN Creatinine Ratio 19.6 (6-22); Bilirubin Total 0.4 mg/dL (0.2-1.3); Blood Urea Nitrogen 18 mg/dL (7-17); Calcium 8.8 mg/dL (8.4-10.2); Carbon Dioxide 27 mmol/L (22-32); Chloride 97 mmol/L (98-107); Estimated Glomerular Filt Rate > 60 mL/min (>60); Globulin 3.3 g/dL (1.7-4.1); Glucose 208 mg/dL (80-110); HEMOLYSIS < 15 (0-50); Hypochromasia 1+; Lipase 52 U/L (23-300); Microcytosis 1+; Potassium 4.8 mmol/L (3.4-5.1); Schistocytes 1+; Sodium 131 mmol/L (137-145); Total Protein 6.7 g/dL (6.3-8.2)
[2022-08-15 18:27] LABS: Prothrombin Time 113.4 SECONDS (10.1-12.7)
[2022-08-15 18:28] LABS: INR 9.6 (0.9-1.3)
[2022-08-15 20:10] LABS: Hematocrit 25.7 % (36-46); Hemoglobin 8.2 g/dL (12.0-16.0)
[2022-08-15] MEDS: PHYTONADIONE (VIT K1) 10 MG in SODIUM CHLORIDE 0.9% 100 ML 202 MG IV (20:15)
[2022-08-15] MEDS: ISOOSMOTIC VEHICLE IV (20:56)
[2022-08-15] MEDS: [UNRECOGNIZED DRUG - OTHER] IV (20:56)
== END 2022-08-16 00:01 | disposition short-term general hospital (02) ==
PROVIDERS: Emergency Medicine; Emergency Provider Emergency Medicine; Family Provider Internal Medicine Infectious Disease; PCP Internal Medicine
DX: S30.1XXA Contusion of abdominal wall, initial encounter (principal); R06.02 Shortness of breath; R00.0 Tachycardia, unspecified; R07.9 Chest pain, unspecified; R79.1 Abnormal coagulation profile; Z79.899 Other long term (current) drug therapy
CPT/HCPCS: 36415; 71275; 74177; 80053; 83690; 85014; 85018; 85025; 85610; 85730; 96361; 96365; 96368; 96375; 99284; 99285; J1170; J3430; J7168

== ENCOUNTER 2022-08-25 11:29 | Inpatient (IN) | payer OTHER, SELFPAY ==
[2022-06-07 07:30] VITALS: PULSE 84; RESP 20; O2SAT 99
[2022-06-30 15:01] VITALS: BMI 43.0
[2022-08-25] VITALS (23 sets, daily range): BP systolic 95–148; BP diastolic 48–73; PULSE 71–92; RESP 18–34; TEMP 36.8–37.3; O2SAT 95–99; BMI 42.7
--- NOTE | 2022-08-25 12:14 | DI.RAD.S_ITS ---
PROCEDURE: XR CHEST 1V INDICATIONS: sob TECHNIQUE: One view of the chest was acquired. COMPARISON: [facility], CT, CT ANGIO CHEST PE PROTOCOL, 08/15/2022, 18:30. [facility], CR, XR CHEST 1V, 06/30/2022, 8:05. [facility], CR, XR CHEST 1V, 06/06/2022, 7:54. FINDINGS: Surgical changes and devices: None. Lungs and pleura: Lungs are difficult to accurately assess due to reduced inspiratory volume as has been previously the case. Patchy bilateral atelectasis again noted. No pleural effusions or pneumothorax. Mediastinum: Mediastinal contours appear normal. Heart size is normal. Bones and chest wall: No suspicious bony lesions. Overlying soft tissues appear unremarkable. IMPRESSION: Again present is reduced inspiratory volume with secondary patchy bilateral atelectasis but no definite acute disease. Dictated by: Tj Jones M.D. on 08/25/2022 at 13:02 Approved by: Tj Jones M.D. on 08/25/2022 at 13:04
--- NOTE | 2022-08-25 12:45 | PC.NURSE ---
Pt seen in ED multiple times for DVT of the LLE. Pt was started on Eliquis April 2021 for PE/DVT and failed treatment with a subsequent dx of DVT here at 08/07/22. Pt was placed on lovenox to bridge to coumadin and was found to have a supratherapeutic INR of 8+. Coumadin was stopped and pt was transferred to [facility] in [place] for IVC filter placement. Pt wears 3-4L O2 at home daily and presents today reporting increased SOB, edema in BLE's getting worse, and a eccymotic lesion behind L knee which is the same leg she was recently diagnosed with a DVT. Pt resting on stretcher, remains on oxygen and cardiac monitoring HR 73 NSR, purewick in place. at bedside.
[2022-08-25 12:52] LABS: Add Manual Diff / Slide Review NO; Basophils Absolute Auto 100 /uL (0-100); Basophils Percent Auto 0.8 % (0-2); Eosinophils Absolute Auto 0 /uL (0-450); Hematocrit 27.4 % (36-46); Lymphocytes Absolute Auto 1200 /uL (1100-4500); Lymphocytes Percent Auto 10.9 % (25-40); Mean Corpuscular HGB Conc 32.7 % (30-36); Mean Corpuscular Hemoglobin 27.9 PG (26-34); Mean Corpuscular Volume 85.4 fL (80-100); Monocytes Absolute Auto 1000 /uL (0-900); Monocytes Percent Auto 9.8 % (3-14); Neutrophils Absolute Auto 8300 /uL (1500-7000); Neutrophils Percent Auto 78.5 % (50-75); Platelet Count 644 X10^3/uL (150-400); Red Blood Cell Count 3.21 X10^6/uL (4.0-5.2); Red Cell Distribution Width 21.9 % (11.6-14.8); White Blood Cell Count 10.6 X10^3/uL (4.5-11.0)
[2022-08-25 12:54] LABS: INR 1.3 (0.9-1.3); Prothrombin Time 14.9 SECONDS (10.1-12.7)
[2022-08-25 12:57] LABS: PTT Partial Thromboplastin Tim 30 SECONDS (26-36)
[2022-08-25 13:02] LABS: Alanine Aminotransferase 20 IU/L (<35); Albumin 3.2 g/dL (3.5-5.0); Alkaline Phosphatase 80 U/L (38-126); Aspartate Aminotransferase 26 IU/L (14-36); BUN Creatinine Ratio 21.5 (6-22); Bilirubin Total 0.9 mg/dL (0.2-1.3); Blood Urea Nitrogen 14 mg/dL (7-17); Calcium 8.8 mg/dL (8.4-10.2); Carbon Dioxide 30 mmol/L (22-32); Chloride 99 mmol/L (98-107); Creatine Kinase 41 U/L (30-135); Estimated Glomerular Filt Rate > 60 mL/min (>60); Globulin 3.2 g/dL (1.7-4.1); Glucose 163 mg/dL (80-110); HEMOLYSIS < 15 (0-50); Lipase 32 U/L (23-300); Potassium 4.4 mmol/L (3.4-5.1); Sodium 133 mmol/L (137-145); Total Protein 6.4 g/dL (6.3-8.2)
[2022-08-25 13:09] LABS: NT-proBNP (BNP-Adult 18+) 2990 pg/mL (<125)
[2022-08-25 13:11] LABS: Troponin I < 0.012 ng/mL (0.01-0.034)
--- NOTE | 2022-08-25 15:37 | ED.SOB ---
HPI - SOB/Dyspnea General Chief Complaint: Shortness of Breath/Dyspnea Stated Complaint: Bruising on Left Leg, Hx of DVT Time Seen by Provider: 08/25/22 12:14 Source: patient Mode of arrival: Ambulatory Limitations: no limitations History of Present Illness HPI Narrative: This is a 72-year-old female with history significant for DVT, CHF, pulmonary emboli, NSTEMI, asthma, sleep apnea, hypothyroidism, diabetes, hypertension, dyslipidemia, fibromyalgia and GERD on O2 via nasal cannula at all times. Patient was seen on August 15 and was found to have a retroperitoneal bleed secondary to significantly elevated INR while she was receiving Lovenox bridging to Coumadin for blood clots that occurred while anticoagulated on a DOAC. Patient was transferred to [facility], she received 2 units of PRBCs, INR improved after vitamin K and Kcentra here but then started to go back upwards and then ultimately resumed normal levels and had an IVC filter placed. Patient states she was hospitalized through SundayAugust 23 and discharged home. She has had persistent right-sided abdominal pain although her hematoma was on the left and never seemed to be on the right she is taking oxycodone 15 mg increased from 10 mg, Tylenol 650 mg into [place] 4 mg daily to control the pain and had been increased on that as well as her fentanyl patch which was increased from 25-50 mcg while in the hospital. Patient states she also received cefepime while hospitalized she had a cough and some pneumonia. She received 5 days and was discharged home without antibiotics. Patient presents for persistent right-sided abdominal pain but her main concern is she is had new bruising that is track down her left leg. Her hematoma was known to be on the left side. She is not anticoagulated while in the hospital she had an IVC filter placed. Patient denies any fevers, no chest pain or pressure. She is had some shortness of breath she states maybe little bit worse than her baseline but also has some debility. She is had cough which actually cleared in terms of her sputum production. No nausea or vomiting. She is been stooling regularly but was having constipation before. She denies dysuria urgency or frequency. She is in her both noted the new bruising on the back of her left thigh and that her legs have increased swelling right more so than left. Left lower abdominal tenderness and notes that she still has her appendix. Patient family also note that her weight is up she was 217 lb and was less than 210 before her hospitalization. She states they did stop her diuretics for several days but resume them while in the hospital. Related Data Home Medications Medication Instructions Recorded Confirmed polyethylene glycol 3350 17 17 gm PO DAILY PRN Constipation ##0 06/06/17 08/25/22 gram/dose oral powder (Miralax) albuterol sulfate 90 mcg/actuation 2 puff inhalation Q4-6H PRN 05/29/19 08/25/22 aerosol inhaler Shortness Of Breath cholecalciferol (vitamin D3) 50 2,000 unit PO DAILY 05/29/19 08/25/22 mcg (2,000 unit) tablet ferrous sulfate 325 mg (65 mg 325 mg PO BEDTIME 05/29/19 08/25/22 iron) tablet tizanidine 4 mg capsule 4 mg PO QID PRN Muscle Spasm 05/29/19 08/25/22 sodium chloride 3 % for 3 ml inhalation BID 06/05/19 08/25/22 nebulization cetirizine 10 mg capsule (Zyrtec) 10 mg PO DAILY allergies 01/20/20 08/25/22 montelukast 10 mg tablet 10 mg PO BEDTIME 01/20/20 08/25/22 (Singulair) atorvastatin 40 mg tablet 40 mg PO BEDTIME 04/20/21 08/25/22 epinephrine 0.3 mg/0.3 mL 0.3 mg IM Q5-15M PRN Allergic 04/20/21 08/25/22 injection, auto-injector (EpiPen) Reaction insulin glargine 100 unit/mL 30 unit SUBCUT QAM 04/20/21 08/25/22 subcutaneous solution insulin lispro 100 unit/mL 4 - 8 unit SUBCUT TID 04/20/21 08/25/22 subcutaneous pen (Humalog KwikPen (U-100) Insulin) ipratropium 0.5 mg-albuterol 3 mg 3 ml inhalation BID 04/20/21 08/25/22 (2.5 mg base)/3 mL nebulization soln levothyroxine 75 mcg tablet 75 mcg PO QAM 04/20/21 08/25/22 nortriptyline 25 mg capsule 25 mg PO BEDTIME 04/20/21 08/25/22 tiotropium bromide 18 mcg capsule 1 cap inhalation DAILY 04/20/21 08/25/22 with inhalation device (Spiriva with HandiHaler) lansoprazole 15 mg capsule,delayed 30 mg PO BID 04/29/21 08/25/22 release (Prevacid 24Hr) duloxetine 30 mg capsule,delayed 30 mg PO DAILY 06/28/21 08/25/22 release fluticasone 500 mcg-salmeterol 50 1 inh inhalation BID 06/28/21 08/25/22 mcg/dose blistr powdr for inhalation (Wixela Inhub) guaifenesin 1,200 mg tablet, 1,200 mg PO BID 06/28/21 08/25/22 extended release 12 hr (Mucinex) oxycodone-acetaminophen 10 mg-325 1 tab PO Q4H PRN Pain (Scale Score 06/28/21 08/25/22 mg tablet (Percocet) 4-6) pramipexole 0.5 mg tablet 0.5 mg PO BEDTIME 06/28/21 08/25/22 docusate sodium 100 mg tablet 200 mg PO DAILY 04/24/22 08/25/22 omega-3 fatty acids 1,000 mg PO DAILY 04/24/22 08/25/22 benralizumab 30 mg/mL subcutaneous 30 mg SUBCUT Q8W 06/03/22 08/25/22 syringe (Fasenra) blctyxvwmf-nwvfspvniqqrb-wajwocim 1 tab PO Q6H PRN Migraine Headache 06/03/22 08/25/22 50 mg-325 mg-40 mg tablet clonidine HCl 0.1 mg tablet 0.05 mg PO BID 06/03/22 08/25/22 oxycodone 5 mg capsule 15 mg PO Q6H PRN Pain (Scale Score 06/03/22 08/25/22 7-10) oxymetazoline 0.05 % nasal drops 1 drp intranasal BID PRN Congestion 06/03/22 08/25/22 prednisone 5 mg tablet 5 mg PO DAILY 06/03/22 08/25/22 Hizintra 15 g SUBCUT QWEEK 08/25/22 fluticasone 500 mcg-salmeterol 50 1 inh inhalation Q12H 08/25/22 08/25/22 mcg/dose blistr powdr for inhalation (Advair Diskus) furosemide 20 mg tablet 20 mg PO DAILY 08/25/22 08/25/22 Previous Rx's Medication Instructions Recorded ondansetron HCl 4 mg tablet 4 mg PO Q8H PRN nausea and 10/06/19 (Zofran) vomiting #30 tabs verio reflect glucometer #1 ea 01/28/20 insulin syringe-needle U-100 0.5 #100 ea 03/30/20 mL 31 gauge x 5/16 (BD Insulin Syringe Ultra-Fine) metformin 1,000 mg tablet 1,000 mg PO BID #180 tabs 09/03/20 fentanyl 25 mcg/hr transdermal 1 patch transdermal Q72H PRN pain 02/05/22 patch (scale score 1-3) #5 ea Allergies Allergy/AdvReac Type Severity Reaction Status Date / Time hydroxychloroquine Allergy Unknown Verified 08/14/22 13:56 [HYDROXYCHLOROQUINE] promethazine [From Phenergan] Allergy Agitated Verified 08/14/22 13:56 cefepime AdvReac Intermediate pruritis Verified 08/14/22 13:56 Review of Systems Review of Systems ROS Unobtainable: All systems reviewed & are unremarkable except as noted in HPI and below Patient History Medical History Abnormal chest xray (~1979) Anemia Ankle pain Anticoagulated Asthma (~1959) Bronchiectasis (~2006) Cervical spine disease Chronic back pain Colon polyps (~2015) Degenerative joint disease of spine (~2001) Diabetes mellitus, type II (~2009) Eczema Fibromyalgia Foot pain Hoarseness Hyperlipidemia Hypertension Hypothyroidism Migraines (~1964) 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 Osteopenia Pneumonia Pneumonia Recurrent sinusitis (~1970) Restless leg syndrome Shoulder pain (~03/2018) Sleep apnea Wears glasses Surgical History Anesthesia History of carpal tunnel release History of cataract removal with insertion of prosthetic lens (~2014) History of section History of laminectomy (~2002) History of spinal fusion (~2012) History of thumb surgery Family History Father Stroke Mother Hypertension Brother Cerebral aneurysm Prostate cancer Diabetes mellitus Hypertension Stroke Brother Arthritis Hyperlipidemia Hypertension Sister History of kidney cancer Hypertension Grandfather Cancer Grandmother Cancer Other Family history non-contributory Social History household members: spouse Smoking Status: Never smoker alcohol intake: current Smoking Status: Never smoker alcohol intake frequency: holidays/special occasions only Substance Use Type: does not use Exam Narrative Exam Narrative: GENERAL: Alert and oriented x three, obese female in mild distress. HEENT: Head normocephalic, atraumatic, EOMI, pupils reactive, face symmetric, moist mucous membranes, nasal cannula in place. NECK: Supple, full range of motion CARDIOVASCULAR: Regular rate and rhythm without murmurs, rubs or gallops. No JVD. Patient has swelling bilateral lower extremities. She is some scant erythema on the anterior shins both she and her state that is normal. She does have ecchymosis but no hematoma appreciated on her left posterior thigh. RESPIRATORY: Breath sounds equal bilaterally, no wheezes, mild bilateral crackles. No Rales or rhonchi. No tachypnea or accessory muscle use. Patient speaks in full sentences. ABDOMEN: Soft, nontender. Normoactive bowel sounds all 4 quadrants. No guarding or rebound, rigidity, no mass : No CVA tenderness EXTREMITIES: Normal range of motion, no clubbing. Bilateral lower extremity edema. Neurovascularly intact NEUROLOGICAL: Cranial nerves II through XII grossly intact. Moving all extremities SKIN: Warm, dry, no petechiae, no rashes or lesions. Initial Vital Signs Initial Vital Signs: Vital Signs Temperature 98.3 F 08/25/22 11:48 Pulse Rate 85 08/25/22 11:48 Respiratory Rate 19 08/25/22 11:48 Blood Pressure 148/70 H 08/25/22 11:48 Pulse Oximetry 99 08/25/22 11:48 Oxygen Delivery Method Nasal Cannula 08/25/22 11:48 Oxygen Flow Rate 3 08/25/22 11:48 Course Orders Ordered: Acetaminophen (Acetaminophen 325 Mg Tablet) 650 mg PO Q6H PRN PRN Reason: Fever/Mild Pain (1-3) Last Admin: 08/26/22 12:19 Dose: 650 mg Documented By: SB Acetaminophen/Butalbital/Caffeine (Butalb/Apap/Caffeine 50/325/40 Tablet) 1 each PO Q6H PRN PRN Reason: Migraine Headache Al Hydrox/Mg Hydrox/Simethicone (Mag Hydrox/Alum/Simeth 30 Ml Udc) 30 ml PO Q6HR PRN PRN Reason: Dyspepsia Albuterol/Ipratropium (Albuterol/Ipratropium 3 Ml Ampul) 3 ml INH [id number] [facility] Last Admin: 08/26/22 10:17 Dose: 3 ml Documented By: Admin: 08/26/22 09:21 Dose: Not Given Documented By: SAT Atorvastatin Calcium (Atorvastatin 20 Mg Tablet) 40 mg PO BEDTIME CARMELO Benzonatate (Benzonatate 100 Mg Capsule) 100 mg PO TID PRN PRN Reason: Cough Budesonide (Budesonide 0.5 Mg/2 Ml Neb) 0.5 mg INH RTBID [facility] Last Admin: 08/26/22 10:18 Dose: 0.5 mg Documented By: SAT Calcium Carbonate (Calcium Carbonate 500 Mg Tab) 1,000 mg PO Q4HR PRN PRN Reason: Dyspepsia Last Admin: 08/25/22 22:38 Dose: 1,000 mg Documented By: AW Clonidine HCl (Clonidine 0.1 Mg Tablet) 0.05 mg PO BID [facility] Last Admin: 08/26/22 08:51 Dose: 0.05 mg Documented By: Admin: 08/25/22 22:39 Dose: 0.05 mg Documented By: IGNACIO Dextrose (Dextrose 50 % In Water 25 Gm/50 Ml Syringe) 25 gm IV PRN PRN PRN Reason: Hypoglycemia Docusate Sodium (Docusate 100 Mg Capsule) 100 mg PO BID [facility] Last Admin: 08/26/22 08:53 Dose: 100 mg Documented By: Admin: 08/25/22 22:39 Dose: 100 mg Documented By: AW Duloxetine HCl (Duloxetine 30 Mg Capsule) 30 mg PO DAILY [facility] Last Admin: 08/26/22 08:53 Dose: 30 mg Documented By: SANTIAGO Fentanyl (Fentanyl 25 Mcg/Patch) 25 mcg TOP Q72H PRN PRN Reason: pain (scale score 1-3) Ferrous Sulfate (Ferrous Sulfate 325 Mg Tablet) 325 mg PO BEDTIME [facility] Furosemide (Furosemide 20 Mg/2 Ml Vial) 20 mg IV BID [facility] Last Admin: 08/26/22 08:54 Dose: 20 mg Documented By: SANTIAGO Guaifenesin (Guaifenesin Er 600 Mg Tab) 1,200 mg PO BID [facility] Last Admin: 08/26/22 08:51 Dose: 1,200 mg Documented By: SANTIAGO Hydromorphone HCl (Hydromorphone 1 Mg Inj) 1 mg IV Q3H PRN PRN Reason: Pain, Moderate (4-6) Last Admin: 08/26/22 11:16 Dose: 1 mg Documented By: SANTIAGO Insulin Glargine (Insulin Glargine 100 Unit/Ml 3ml Pen) 30 unit SUBCUT DAILY [facility] Last Admin: 08/26/22 09:12 Dose: 30 unit Documented By: SANTIAGO Co-signed By: SALVADOR Insulin Human Lispro (Insulin Lispro 100 Unit/Ml 3ml Vial) 0 unit SUBCUT [facility]; Protocol Last Admin: 08/26/22 11:28 Dose: 1 unit Documented By: SANTIAGO Co-signed By: CALIXTO Admin: 08/26/22 08:49 Dose: 1 unit Documented By: SANTIAGO Co-signed By: NOLVIA Ketorolac Tromethamine (Ketorolac 30 Mg/Ml Vial) 15 mg IV Q6H [facility] Stop: 08/31/22 11:57 Last Admin: 08/26/22 12:19 Dose: 15 mg Documented By: SANTIAGO Levothyroxine Sodium (Levothyroxine 75 Mcg Tablet) 75 mcg PO QACBREAK [facility] Last Admin: 08/26/22 08:47 Dose: 75 mcg Documented By: SANTIAGO Naloxone HCl (Naloxone 0.4 Mg/Ml Vial) 0.2 mg IV Q2MIN PRN PRN Reason: Opiate Reversal Nortriptyline HCl (Nortriptyline Hcl 25 Mg Capsule) 25 mg PO BEDTIME [facility] Last Admin: 08/25/22 22:39 Dose: 25 mg Documented By: IGNACIO Ondansetron HCl (Ondansetron 4 Mg/2 Ml Inj) 4 mg IV Q8HR PRN PRN Reason: Nausea And Vomiting Oxycodone HCl (Oxycodone Ir 5 Mg Tablet) 10 mg PO Q3HR PRN PRN Reason: Pain, Severe (7-10) Last Admin: 08/26/22 11:15 Dose: 10 mg Documented By: SANTIAGO Oxycodone/Acetaminophen (Oxycodone/Acetaminophen 5/325 Tablet) 2 tab PO Q4H PRN PRN Reason: Pain (Scale Score 4-6) Last Admin: 08/26/22 10:43 Dose: 2 tab Documented By: Admin: 08/26/22 06:18 Dose: 2 tab Documented By: IGNACIO Oxymetazoline HCl (Oxymetazoline Nasal Royal 15 Ml) 1 sprays NASAL BID PRN PRN Reason: Congestion Pantoprazole Sodium (Pantoprazole 40 Mg Vial) 20 mg IV DAILY [facility] Last Admin: 08/26/22 08:54 Dose: 20 mg Documented By: SANTIAGO Polyethylene Glycol (Polyethylene Glycol 3350 17 Gm Powd.Pack) 17 gm PO DAILY PRN PRN Reason: Constipation Last Admin: 08/25/22 22:37 Dose: 17 gm Documented By: IGNACIO Pramipexole Dihydrochloride (Pramipexole 0.25 Mg Tablet) 0.5 mg PO BEDTIME CARMELO Last Admin: 08/25/22 22:37 Dose: 0.5 mg Documented By: IGNACIO Sennosides (Sennosides 8.6 Mg Tablet) 17.2 mg PO BEDTIME CARMELO Last Admin: 08/25/22 22:38 Dose: 17.2 mg Documented By: IGNACIO Tizanidine HCl (Tizanidine 4 Mg Tablet) 4 mg PO QID PRN PRN Reason: Muscle Spasm Last Admin: 08/26/22 12:25 Dose: 4 mg Documented By: Admin: 08/26/22 06:18 Dose: 4 mg Documented By: Admin: 08/25/22 22:38 Dose: 4 mg Documented By: IGNACIO Discontinued Medications Acetaminophen (Acetaminophen 325 Mg Tablet) 650 mg PO NOW ONE Stop: 08/25/22 15:58 Last Admin: 08/25/22 16:09 Dose: 650 mg Documented By: EVENS Albuterol (Albuterol 2.5 Mg/3 Ml Neb (Adult)) 2.5 mg INH NOW ONE Stop: 08/25/22 16:57 Last Admin: 08/25/22 17:04 Dose: 2.5 mg Documented By: MARIANGEL Furosemide (Furosemide 40 Mg/4 Ml Vial) 40 mg IV NOW ONE Stop: 08/25/22 17:30 Last Admin: 08/25/22 17:42 Dose: 40 mg Documented By: EVENS Hydromorphone HCl (Hydromorphone 1 Mg Inj) 1 mg IV NOW ONE Stop: 08/25/22 18:56 Last Admin: 08/25/22 19:23 Dose: 1 mg Documented By: MARIA INES Hydromorphone HCl (Hydromorphone 0.5 Mg Inj) 0.5 mg IV Q4H PRN PRN Reason: Pain, Moderate (4-6) Last Admin: 08/26/22 09:06 Dose: 0.5 mg Documented By: SANTIAGO Magnesium Sulfate (Magnesium Sulfate) 2 gm in 50 mls @ 25 mls/hr IV NOW ONE Stop: 08/26/22 04:06 Last Admin: 08/26/22 02:38 Dose: 25 mls/hr Documented By: IGNACIO Co-signed By: VLAD Ipratropium Bode (Ipratropium 0.5 Mg/2.5 Ml Neb) 0.5 mg INH NOW ONE Stop: 08/25/22 16:57 Last Admin: 08/25/22 17:03 Dose: 0.5 mg Documented By: MARIANGEL Methylprednisolone (Methylprednisolone 125 Mg/2 Ml Vial) 40 mg IV NOW ONE Stop: 08/25/22 19:49 Last Admin: 08/25/22 20:20 Dose: 40 mg Documented By: GAGE Oxycodone HCl (Oxycodone Ir 5 Mg Tablet) 15 mg PO NOW ONE Stop: 08/25/22 15:58 Last Admin: 08/25/22 16:09 Dose: 15 mg Documented By: EVENS Oxycodone HCl (Oxycodone Ir 5 Mg Tablet) 15 mg PO Q6H PRN PRN Reason: Pain (Scale Score 7-10) Last Admin: 08/26/22 05:07 Dose: 15 mg Documented By: Admin: 08/25/22 22:38 Dose: 15 mg Documented By: IGNACIO Tizanidine HCl (Tizanidine 4 Mg Tablet) 4 mg PO NOW ONE Stop: 08/25/22 15:59 Last Admin: 08/25/22 16:17 Dose: 4 mg Documented By: EVENS Vital Signs Vital signs: Vital Signs - 8 hr 08/25/22 11:48 08/25/22 12:19 08/25/22 12:20 Temperature 98.3 F Pulse Rate 85 80 79 Respiratory Rate 19 Blood Pressure 148/70 H Pulse Oximetry 99 99 99 Oxygen Delivery Method Nasal Cannula Oxygen Flow Rate 3 08/25/22 12:20 08/25/22 12:30 08/25/22 13:00 Temperature Pulse Rate 79 Respiratory Rate 24 Blood Pressure 107/57 L 109/59 L Pulse Oximetry 99 Oxygen Delivery Method Oxygen Flow Rate 08/25/22 13:00 08/25/22 13:30 08/25/22 13:30 Temperature Pulse Rate 71 73 Respiratory Rate 22 20 Blood Pressure 106/73 Pulse Oximetry 97 96 Oxygen Delivery Method Oxygen Flow Rate 08/25/22 14:00 08/25/22 14:00 08/25/22 14:30 Temperature Pulse Rate 78 73 Respiratory Rate 23 18 Blood Pressure 118/56 L Pulse Oximetry 98 98 Oxygen Delivery Method Oxygen Flow Rate 08/25/22 14:31 08/25/22 14:31 08/25/22 15:00 Temperature Pulse Rate 74 Respiratory Rate 20 Blood Pressure 125/63 122/56 L Pulse Oximetry 98 Oxygen Delivery Method Oxygen Flow Rate 08/25/22 15:00 08/25/22 15:30 08/25/22 16:00 Temperature Pulse Rate 75 79 Respiratory Rate 18 26 H Blood Pressure 120/58 L Pulse Oximetry 99 98 Oxygen Delivery Method Oxygen Flow Rate 08/25/22 16:00 08/25/22 16:30 08/25/22 16:30 Temperature Pulse Rate 79 86 Respiratory Rate 18 34 H Blood Pressure 127/58 L Pulse Oximetry 98 98 Oxygen Delivery Method Oxygen Flow Rate 08/25/22 17:00 08/25/22 17:26 08/25/22 17:26 Temperature Pulse Rate 79 80 Respiratory Rate 21 24 Blood Pressure 111/68 Pulse Oximetry 98 98 Oxygen Delivery Method Oxygen Flow Rate 08/25/22 17:30 08/25/22 17:30 08/25/22 17:45 Temperature Pulse Rate 79 82 Respiratory Rate 20 22 Blood Pressure 109/56 L Pulse Oximetry 97 96 Oxygen Delivery Method Nasal Cannula Oxygen Flow Rate 3 08/25/22 18:00 08/25/22 18:00 08/25/22 18:30 Temperature Pulse Rate 80 79 Respiratory Rate 30 H 18 Blood Pressure 102/59 L Pulse Oximetry 97 95 Oxygen Delivery Method Oxygen Flow Rate 08/25/22 18:31 08/25/22 18:31 08/25/22 19:00 Temperature Pulse Rate 79 84 Respiratory Rate 27 H 29 H Blood Pressure 125/56 L Pulse Oximetry 96 96 Oxygen Delivery Method Oxygen Flow Rate 08/25/22 19:01 08/25/22 19:01 Temperature Pulse Rate 84 Respiratory Rate 22 Blood Pressure 95/63 Pulse Oximetry 96 Oxygen Delivery Method Oxygen Flow Rate MDM - SOB/Dyspnea Lab Data 08/26/22 07:15 08/26/22 07:15 Labs: Lab Results 08/25/22 08/25/22 08/25/22 Range/Units 12:28 12:28 12:28 WBC 10.6 (4.5-11.0) X10^3/uL RBC 3.21 L (4.0-5.2) X10^6/uL Hgb 9.0 L (12.0-16.0) g/dL Hct 27.4 L (36-46) % MCV 85.4 D (80-100) fL MCH 27.9 (26-34) PG MCHC 32.7 (30-36) % RDW 21.9 H (11.6-14.8) % Plt Count 644 H (150-400) X10^3/uL Neut % (Auto) 78.5 H (50-75) % Lymph % (Auto) 10.9 L (25-40) % Piatt % (Auto) 9.8 (3-14) % Eos % (Auto) 0.0 L (2-4) % Baso % (Auto) 0.8 (0-2) % Neut # (Auto) 8300 H (9667-8318) /uL Lymph # (Auto) 1200 (6881-7719) /uL Piatt # (Auto) 1000 H (0-900) /uL Eos # (Auto) 0 (0-450) /uL Baso # (Auto) 100 (0-100) /uL Nucleated RBCs Cancelled Hypersegmented Neuts Cancelled Hypogranular Neuts Cancelled Reactive Lymphocytes Cancelled Smudge Cells Cancelled Other Cell Type Cancelled Toxic Granulation Cancelled Toxic Vacuolation Cancelled Dohle Bodies Cancelled Jenny Rods Cancelled WBC Morphology Comment Cancelled Platelet Estimate Cancelled Clumped Platelets Cancelled Plt Morphology Comment Cancelled RBC Morphology Cancelled Dimorphic RBCs Cancelled Polychromasia Cancelled Hypochromasia Cancelled Poikilocytosis Cancelled Basophilic Stippling Cancelled Anisocytosis Cancelled Microcytosis Cancelled Macrocytosis Cancelled Spherocytes Cancelled Pappenheimer Bodies Cancelled Sickle Cells Cancelled Target Cells Cancelled Tear Drop Cells Cancelled Ovalocytes Cancelled Stomatocytes Cancelled Helmet Cells Cancelled [place] Bodies Cancelled [place] Rings Cancelled Chang Cells Cancelled Acanthocytes (Spur) Cancelled Rouleaux Cancelled Schistocytes Cancelled PT 14.9 H D (10.1-12.7) SECONDS INR 1.3 (0.9-1.3) APTT 30 (26-36) SECONDS Sodium 133 L (137-145) mmol/L Potassium 4.4 (3.4-5.1) mmol/L Chloride 99 (98-107) mmol/L Carbon Dioxide 30 (22-32) mmol/L BUN 14 (7-17) mg/dL Creatinine 0.65 (0.52-1.04) mg/dL Estimated GFR > 60 (>60) mL/min BUN/Creatinine Ratio 21.5 (6-22) Glucose 163 H (80-110) mg/dL Calcium 8.8 (8.4-10.2) mg/dL Magnesium (1.6-2.3) mg/dL Total Bilirubin 0.9 (0.2-1.3) mg/dL AST 26 (14-36) IU/L ALT 20 (<35) IU/L Alkaline Phosphatase 80 (38-126) U/L Total Creatine Kinase 41 (30-135) U/L CK-MB (CK-2) TNP CK-MB (CK-2) Rel Index TNP Troponin I < 0.012 (0.01-0.034) ng/mL NT-Pro-B Natriuret Pep (<125) pg/mL Total Protein 6.4 (6.3-8.2) g/dL Albumin 3.2 L (3.5-5.0) g/dL Globulin 3.2 (1.7-4.1) g/dL Albumin/Globulin Ratio 1.0 (1.0-2.8) Lipase 32 (23-300) U/L TSH (0.47-4.68) uIU/mL SARS-CoV-2 (PCR) (Negative) 08/25/22 08/25/22 08/25/22 Range/Units 12:28 12:28 16:36 WBC (4.5-11.0) X10^3/uL RBC (4.0-5.2) X10^6/uL Hgb (12.0-16.0) g/dL Hct (36-46) % MCV (80-100) fL MCH (26-34) PG MCHC (30-36) % RDW (11.6-14.8) % Plt Count (150-400) X10^3/uL Neut % (Auto) (50-75) % Lymph % (Auto) (25-40) % Piatt % (Auto) (3-14) % Eos % (Auto) (2-4) % Baso % (Auto) (0-2) % Neut # (Auto) (0006-1298) /uL Lymph # (Auto) (9160-7344) /uL Piatt # (Auto) (0-900) /uL Eos # (Auto) (0-450) /uL Baso # (Auto) (0-100) /uL Nucleated RBCs Hypersegmented Neuts Hypogranular Neuts Reactive Lymphocytes Smudge Cells Other Cell Type Toxic Granulation Toxic Vacuolation Dohle Bodies Jenny Rods WBC Morphology Comment Platelet Estimate Clumped Platelets Plt Morphology Comment RBC Morphology Dimorphic RBCs Polychromasia Hypochromasia Poikilocytosis Basophilic Stippling Anisocytosis Microcytosis Macrocytosis Spherocytes Pappenheimer Bodies Sickle Cells Target Cells Tear Drop Cells Ovalocytes Stomatocytes Helmet Cells [place] Bodies [place] Rings Chang Cells Acanthocytes (Spur) Rouleaux Schistocytes PT (10.1-12.7) SECONDS INR (0.9-1.3) APTT (26-36) SECONDS Sodium (137-145) mmol/L Potassium (3.4-5.1) mmol/L Chloride (98-107) mmol/L Carbon Dioxide (22-32) mmol/L BUN (7-17) mg/dL Creatinine (0.52-1.04) mg/dL Estimated GFR (>60) mL/min BUN/Creatinine Ratio (6-22) Glucose (80-110) mg/dL Calcium (8.4-10.2) mg/dL Magnesium (1.6-2.3) mg/dL Total Bilirubin (0.2-1.3) mg/dL AST (14-36) IU/L ALT (<35) IU/L Alkaline Phosphatase (38-126) U/L Total Creatine Kinase (30-135) U/L CK-MB (CK-2) CK-MB (CK-2) Rel Index Troponin I < 0.012 (0.01-0.034) ng/mL NT-Pro-B Natriuret Pep 2990 H (<125) pg/mL Total Protein (6.3-8.2) g/dL Albumin (3.5-5.0) g/dL Globulin (1.7-4.1) g/dL Albumin/Globulin Ratio (1.0-2.8) Lipase (23-300) U/L TSH 3.07 (0.47-4.68) uIU/mL SARS-CoV-2 (PCR) (Negative) 08/25/22 08/25/22 Range/Units 16:36 20:02 WBC (4.5-11.0) X10^3/uL RBC (4.0-5.2) X10^6/uL Hgb (12.0-16.0) g/dL Hct (36-46) % MCV (80-100) fL MCH (26-34) PG MCHC (30-36) % RDW (11.6-14.8) % Plt Count (150-400) X10^3/uL Neut % (Auto) (50-75) % Lymph % (Auto) (25-40) % Piatt % (Auto) (3-14) % Eos % (Auto) (2-4) % Baso % (Auto) (0-2) % Neut # (Auto) (7510-7048) /uL Lymph # (Auto) (9494-5184) /uL Piatt # (Auto) (0-900) /uL Eos # (Auto) (0-450) /uL Baso # (Auto) (0-100) /uL Nucleated RBCs Hypersegmented Neuts Hypogranular Neuts Reactive Lymphocytes Smudge Cells Other Cell Type Toxic Granulation Toxic Vacuolation Dohle Bodies Jenny Rods WBC Morphology Comment Platelet Estimate Clumped Platelets Plt Morphology Comment RBC Morphology Dimorphic RBCs Polychromasia Hypochromasia Poikilocytosis Basophilic Stippling Anisocytosis Microcytosis Macrocytosis Spherocytes Pappenheimer Bodies Sickle Cells Target Cells Tear Drop Cells Ovalocytes Stomatocytes Helmet Cells [place] Bodies [place] Rings [place] Cells Acanthocytes (Spur) Rouleaux Schistocytes PT (10.1-12.7) SECONDS INR (0.9-1.3) APTT (26-36) SECONDS Sodium (137-145) mmol/L Potassium (3.4-5.1) mmol/L Chloride (98-107) mmol/L Carbon Dioxide (22-32) mmol/L BUN (7-17) mg/dL Creatinine (0.52-1.04) mg/dL Estimated GFR (>60) mL/min BUN/Creatinine Ratio (6-22) Glucose (80-110) mg/dL Calcium (8.4-10.2) mg/dL Magnesium 1.5 L (1.6-2.3) mg/dL Total Bilirubin (0.2-1.3) mg/dL AST (14-36) IU/L ALT (<35) IU/L Alkaline Phosphatase (38-126) U/L Total Creatine Kinase (30-135) U/L CK-MB (CK-2) CK-MB (CK-2) Rel Index Troponin I (0.01-0.034) ng/mL NT-Pro-B Natriuret Pep (<125) pg/mL Total Protein (6.3-8.2) g/dL Albumin (3.5-5.0) g/dL Globulin (1.7-4.1) g/dL Albumin/Globulin Ratio (1.0-2.8) Lipase (23-300) U/L TSH (0.47-4.68) uIU/mL SARS-CoV-2 (PCR) Negative (Negative) Imaging Data Chest x-ray: Radiologist's Impression: [address] [address] XRay Report Signed Patient: Radha Zavaleta MR#: [id number] : 1950 Acct:[id number] Age/Sex: 72 / F Date of Service: 08/25/22 Loc: ED Accession Number: [id number] ?? Procedure: XR chest 1V Ordering Provider: Joanne Mckoy D.O. PROCEDURE:? XR CHEST 1V ? INDICATIONS:? sob ? TECHNIQUE:? One view of the chest was acquired.? ? COMPARISON:? [facility], CT, CT ANGIO CHEST PE PROTOCOL, 08/15/2022, 18:30.? [facility], CR, XR CHEST 1V, 06/30/2022, 8:05.? [facility], CR, XR CHEST 1V, 06/06/2022, 7:54. ? FINDINGS:? ? Surgical changes and devices:? None.? ? Lungs and pleura:? Lungs are difficult to accurately assess due to reduced inspiratory volume as has been previously the case.? Patchy bilateral atelectasis again noted.? No pleural effusions or pneumothorax.? ? Mediastinum:? Mediastinal contours appear normal.? Heart size is normal.? ? Bones and chest wall:? No suspicious bony lesions.? Overlying soft tissues appear unremarkable.? ? IMPRESSION:? Again present is reduced inspiratory volume with secondary patchy bilateral atelectasis but no definite acute disease. ? ? Dictated by: Tj Jones M.D. on 08/25/2022 at 13:02 ? ? Approved by: Tj Jones M.D. on 08/25/2022 at 13:04?? CT scan - chest: Radiologist's Impression: [place] [address] CT Scan Report Signed Patient: Radha Zavaleta MR#: [id number] : 1950 Acct:[id number] Age/Sex: 72 / F Date of Service: 08/25/22 Loc: ED Accession Number: [id number] ?? Procedure: CT angio chest PE protocol Ordering Provider: Joanne Mckoy D.O. PROCEDURE:? CT ANGIO CHEST PE PROTOCOL ? INDICATIONS:? sob, had IVC filter placed past week, hematoma abd, new brui ? TECHNIQUE:? After the administration of intravenous contrast, 2 mm thick sections acquired from the pulmonary apices to the posterior costophrenic angles.? 3-dimensional maximum intensity projection (MIP) coronal and sagittal reformats were then acquired through the thorax.? For radiation dose reduction, the following was used:? automated exposure control, adjustment of mA and/or kV according to patient size.? ? COMPARISON:? [facility], CR, XR CHEST 1V, 08/25/2022, 12:30.? [facility], CT, CT ANGIO CHEST PE PROTOCOL, 08/15/2022, 18:30. ? FINDINGS:? Image quality:? Excellent.? ? Pulmonary arteries:? Possible right lower lobe subsegmental pulmonary emboli, ( 89).? No segmental or central pulmonary embolism.? RV to LV ratio 1.3. ? Lungs and pleura:? Lower lung volumes.? Dependent opacity.? Mild interlobular septal thickening most pronounced at the upper lungs.? No significant pleural effusions or pneumothorax.? Central and peripheral airways are patent.? ? Mediastinum:? Heart size is normal, without pericardial effusion.? Three-vessel coronary artery calcifications.? Mild aortic valve calcification.? No mediastinal or hilar adenopathy.? Thoracic aorta is normal in caliber and enhancement.? Esophagus is normal in caliber, without hiatal hernia.? ? Bones and chest wall:? No suspicious bony lesions.? Ribs and thoracic spine appear intact throughout.? Thyroid gland is unremarkable.? No axillary or supraclavicular adenopathy.? ? Abdomen:? Visualized upper abdominal solid organs appear normal in the early arterial phase of enhancement.? IVC filter.? Distended gallbladder.? ? IMPRESSION:? 1. Suspect right lower lobe subsegmental pulmonary emboli x2.? RV to LV ratio 1.3. ? 2. Low lung volumes.? Mild bibasilar opacity.? This could be due to atelectasis.? Pneumonia is difficult to exclude. ? ? Comment: Findings were discussed with Joanne Mckoy at time of dictation. ? Dictated by: Ivan Omer M.D. on 08/25/2022 at 17:55 ? ? Approved by: Ivan Omer M.D. on 08/25/2022 at 18:08?? CT scan - abdomen/pelvis: Radiologist's Impression: [place] [address] CT Scan Report Signed Patient: Radha Zavaleta MR#: [id number] : 1950 Acct:[id number] Age/Sex: 72 / F Date of Service: 08/25/22 Loc: ED Accession Number: [id number] ?? Procedure: CT abdomen pelvis w con Ordering Provider: Joanne Mckoy D.O. PROCEDURE:? CT ABDOMEN PELVIS W CON ? INDICATIONS:? new bruising down L leg, LLQ hematoma, +RLQ pain ? TECHNIQUE:? After the administration of oral and IV contrast, axial sections were acquired from the lung bases to the pubic symphysis.? Coronal and sagittal reformats were performed.? For radiation dose reduction, the following was used:? automated exposure control, adjustment of mA and/or kV according to patient size. ? COMPARISON:? [facility], CT, CT ABDOMEN PELVIS W CON, 08/15/2022, 18:30.? [facility], CR, XR CHEST 1V, 08/25/2022, 12:30.? [facility], CT, CT ANGIO CHEST PE PROTOCOL, 08/25/2022, 16:06. ? FINDINGS:? Image quality:? Excellent.? ? Lung bases:? Mild dependent atelectasis/scarring can be seen. Heart:? No significant findings. ? ? ABDOMEN: Liver:? Unremarkable.? ? Gallbladder:? Potential layering gallstones are seen.? ? Biliary ducts:? Unremarkable.? ? Pancreas:? Unremarkable.? ? Spleen:? Unremarkable.? ? Adrenal Glands:? Unremarkable.? ? Kidneys and Ureters:? Unremarkable.? ? ? Stomach and Bowel:? No focal right lower quadrant inflammatory changes are seen. There is wall thickening and hyperenhancement seen involving the terminal ileum, as seen on series 3, image 28. No dilated loops of small bowel are seen. A moderate amount of stool is seen within the colon. Peritoneum:? There is a left lower abdominal mass like lesion again seen that measures 12.8 x 7.5 x 8.5 cm, which measures up to 57 Hounsfield units.? This is similar to slightly decreased in size compared to the prior examination. No definite ascites is seen.? No free air is seen. ? Ventral Wall:? There is a moderately sized fat containing periumbilical hernia Abdominal Nodes:? No retroperitoneal or mesenteric adenopathy by size criteria.? Vessels:? Aorta and inferior vena cava are normal in size.? Atherosclerotic calcification is noted.? An IVC filter is seen. ? PELVIS: Pelvic Organs: The uterus appears normal for age.? No adnexal masses are seen.? Presumed sterilization clips can be seen. Bladder:? Unremarkable.? ? Pelvic Nodes: No enlarged lymph nodes.? Miscellaneous: No inguinal hernias are seen. ? ? ? Bones:? Lumbar spine degenerative change and postoperative change can be seen.? Mild levoconvex scoliotic curvature is noted.? Focal disc space narrowing can be seen at T11-T12 and at L2-L3.? ? ? IMPRESSION:? In this patient with right lower quadrant pain, there is concern for Crohn's disease, with a thickened, hyperenhancing terminal ileum.? However, the findings are not pathognomonic. ? Presumed hematoma involving the left lower quadrant, which is similar to slightly decreased in size compared to the 08/15/2022 examination.? ? There is a moderate amount of stool seen within the colon. Please correlate with an underlying history of constipation.? Additional findings:? Potential layering gallstones IVC filter Moderately sized fat containing periumbilical hernia Sterilization clips Spine postoperative change and degenerative change ? Dictated by: Ángel Naik M.D. on 08/25/2022 at 18:00 ? ? Approved by: Ángel Naik M.D. on 08/25/2022 at 18:06?? ECG Data Attestation: I personally reviewed and interpreted this ECG as follows: Prior ECG tracings: available for review Interpretation: Sinus rhythm premature atrial complex rate of 78 ND 144 QRS is 76 and QTC of 476. No acute ST elevation depression noted. Patient has prior from 06/30/2022 with no acute change. MDM Narrative Medical decision making narrative: This is a 72-year-old female with complex medical history who had a significant medical event recently. She would a large hematoma retroperitoneal likely secondary to supratherapeutic INR receiving Lovenox and Coumadin trying to bridge from her Dosepak which she would developed a DVT on. She had a IVC filter placed through her right jugular during her hospitalization, she is had some persistent shortness of breath not significantly worsened and they note that she is probably fluid overloaded her weight is up from her usual her BNP is elevated at 2909- troponin initially renal function electrolytes are appropriate. Patient's family notes her hemoglobin was 8-9 range on discharge she is 9 today. She does have swelling bilateral lower extremities but also has some new bruising in her left thigh. Although INR is appropriate and no longer anticoagulated felt appropriate to reimage abdomen pelvis to evaluate if hematoma is tracking down words or increased in size. Patient's CT angio shows some very small subsegmental emboli which likely not be treated normally anyway she has IVC filter in place she is not a candidate for anticoagulation currently. RV LV ratio was 1.3 I spoke with radiologist who states prior from 08/15 appear to be 1.1 and that she has some interstitial lung disease and other changes that could affect this as well. Patient's CT abdomen pelvis shows some thickening near the terminal ileum which is likely the cause of her right lower quadrant pain she would likely benefit form follow-up with GI and scope and biopsy if she is felt to be appropriate candidate with all her medical issues will can try a short course of steroids. Patient's hematoma appears slightly smaller and does not appear to have any active bleed or enlargement and suspect bruising down leg is gravity. Patient when recommend being continued with Lasix. Discussed with hospitalist service only treatment would likely be echo which could possibly be performed as an outpatient. Discussed with patient and . Spoke with Dr. Downing and SHARAN Acosta, who accepts for observation. Discharge Plan Departure Patient Disposition: Admitted as Observation Clinical Impression: Bowel wall thickening, Abdominal hematoma Admit Date/Time: 08/25/22 20:04 Admit Provider: Pat Acosta
--- NOTE | 2022-08-25 15:57 | DI.CT.S_ITS ---
PROCEDURE: CT ABDOMEN PELVIS W CON INDICATIONS: new bruising down L leg, LLQ hematoma, +RLQ pain TECHNIQUE: After the administration of oral and IV contrast, axial sections were acquired from the lung bases to the pubic symphysis. Coronal and sagittal reformats were performed. For radiation dose reduction, the following was used: automated exposure control, adjustment of mA and/or kV according to patient size. COMPARISON: [facility], CT, CT ABDOMEN PELVIS W CON, 08/15/2022, 18:30. [facility], CR, XR CHEST 1V, 08/25/2022, 12:30. [facility], CT, CT ANGIO CHEST PE PROTOCOL, 08/25/2022, 16:06. FINDINGS: Image quality: Excellent. Lung bases: Mild dependent atelectasis/scarring can be seen. Heart: No significant findings. ABDOMEN: Liver: Unremarkable. Gallbladder: Potential layering gallstones are seen. Biliary ducts: Unremarkable. Pancreas: Unremarkable. Spleen: Unremarkable. Adrenal Glands: Unremarkable. Kidneys and Ureters: Unremarkable. Stomach and Bowel: No focal right lower quadrant inflammatory changes are seen. There is wall thickening and hyperenhancement seen involving the terminal ileum, as seen on series 3, image 28. No dilated loops of small bowel are seen. A moderate amount of stool is seen within the colon. Peritoneum: There is a left lower abdominal mass like lesion again seen that measures 12.8 x 7.5 x 8.5 cm, which measures up to 57 Hounsfield units. This is similar to slightly decreased in size compared to the prior examination. No definite ascites is seen. No free air is seen. Ventral Wall: There is a moderately sized fat containing periumbilical hernia Abdominal Nodes: No retroperitoneal or mesenteric adenopathy by size criteria. Vessels: Aorta and inferior vena cava are normal in size. Atherosclerotic calcification is noted. An IVC filter is seen. PELVIS: Pelvic Organs: The uterus appears normal for age. No adnexal masses are seen. Presumed sterilization clips can be seen. Bladder: Unremarkable. Pelvic Nodes: No enlarged lymph nodes. Miscellaneous: No inguinal hernias are seen. Bones: Lumbar spine degenerative change and postoperative change can be seen. Mild levoconvex scoliotic curvature is noted. Focal disc space narrowing can be seen at T11-T12 and at L2-L3. IMPRESSION: In this patient with right lower quadrant pain, there is concern for Crohn's disease, with a thickened, hyperenhancing terminal ileum. However, the findings are not pathognomonic. Presumed hematoma involving the left lower quadrant, which is similar to slightly decreased in size compared to the 08/15/2022 examination. There is a moderate amount of stool seen within the colon. Please correlate with an underlying history of constipation. Additional findings: Potential layering gallstones IVC filter Moderately sized fat containing periumbilical hernia Sterilization clips Spine postoperative change and degenerative change Dictated by: Ángel Naik M.D. on 08/25/2022 at 18:00 Approved by: Ángel Naik M.D. on 08/25/2022 at 18:06
--- NOTE | 2022-08-25 15:57 | DI.CT.S_ITS ---
PROCEDURE: CT ANGIO CHEST PE PROTOCOL INDICATIONS: sob, had IVC filter placed past week, hematoma abd, new brui TECHNIQUE: After the administration of intravenous contrast, 2 mm thick sections acquired from the pulmonary apices to the posterior costophrenic angles. 3-dimensional maximum intensity projection (MIP) coronal and sagittal reformats were then acquired through the thorax. For radiation dose reduction, the following was used: automated exposure control, adjustment of mA and/or kV according to patient size. COMPARISON: [facility], CR, XR CHEST 1V, 08/25/2022, 12:30. [facility], CT, CT ANGIO CHEST PE PROTOCOL, 08/15/2022, 18:30. FINDINGS: Image quality: Excellent. Pulmonary arteries: Possible right lower lobe subsegmental pulmonary emboli, ( 89). No segmental or central pulmonary embolism. RV to LV ratio 1.3. Lungs and pleura: Lower lung volumes. Dependent opacity. Mild interlobular septal thickening most pronounced at the upper lungs. No significant pleural effusions or pneumothorax. Central and peripheral airways are patent. Mediastinum: Heart size is normal, without pericardial effusion. Three-vessel coronary artery calcifications. Mild aortic valve calcification. No mediastinal or hilar adenopathy. Thoracic aorta is normal in caliber and enhancement. Esophagus is normal in caliber, without hiatal hernia. Bones and chest wall: No suspicious bony lesions. Ribs and thoracic spine appear intact throughout. Thyroid gland is unremarkable. No axillary or supraclavicular adenopathy. Abdomen: Visualized upper abdominal solid organs appear normal in the early arterial phase of enhancement. IVC filter. Distended gallbladder. IMPRESSION: 1. Suspect right lower lobe subsegmental pulmonary emboli x2. RV to LV ratio 1.3. 2. Low lung volumes. Mild bibasilar opacity. This could be due to atelectasis. Pneumonia is difficult to exclude. Comment: Findings were discussed with Joanne Mckoy at time of dictation. Dictated by: Ivan Omer M.D. on 08/25/2022 at 17:55 Approved by: Ivan Omer M.D. on 08/25/2022 at 18:08
[2022-08-25] MEDS: ACETAMINOPHEN 325 MG TABLET 650 MG PO (16:09)
[2022-08-25] MEDS: OXYCODONE IR 5 MG TABLET 15 MG PO ×2 (16:09→22:38)
[2022-08-25] MEDS: TIZANIDINE 4 MG TABLET PO ×2 (16:17→22:38)
[2022-08-25] MEDS: IPRATROPIUM 0.5 MG/2.5 ML NEB INH (17:03)
[2022-08-25] MEDS: ALBUTEROL 2.5 MG/3 ML NEB (ADULT) INH (17:04)
[2022-08-25 17:07] LABS: Troponin I < 0.012 ng/mL (0.01-0.034)
[2022-08-25] MEDS: FUROSEMIDE 40 MG/4 ML VIAL IV (17:42)
[2022-08-25] MEDS: HYDROMORPHONE 1 MG INJ IV (19:23)
[2022-08-25] MEDS: methylPREDNISolone 125 MG/2 ML VIAL 40 MG IV (20:20)
[2022-08-25 20:34] LABS: COVID19 -Nasal RAPID Negative (Negative)
--- NOTE | 2022-08-25 22:33 | PM.HP.1 ---
History of Present Illness History of Present Illness Date Patient Seen: 08/25/22 Time Patient Seen: 22:07 Chief complaint: Bruising on Left Leg, Hx of DVT Narrative: Radha Zavaleta is a 72-year-old female with history significant for DVT, DCHF, atrial fibrillation, pulmonary emboli, NSTEMI, asthma, sleep apnea, hypothyroidism, diabetes, hypertension, dyslipidemia, fibromyalgia, GERD, dm 2, RLS, asthma bronchiolectasis, acute on chronic respiratory failure on constant O2 2-3 L. On August 15 and was found to have a retroperitoneal bleed secondary to significantly elevated INR while she was receiving Lovenox bridging to Coumadin for blood clots that occurred while anticoagulated on a DOAC.? Patient was transferred to [facility], she received 2 units of PRBCs, INR improved after vitamin K and Kcentra here but then started to go back upwards and then ultimately resumed normal levels and had an IVC filter placed, D/C SundayAugust 23 home.?She has persistent right-sided abdominal pain although her hematoma was on the left, takes oxycodone 15 mg increased from 10 mg, Tylenol 650 mg Nazarene 4 mg daily to control the pain, fentanyl patch which was increased from 25-50 mcg while in the hospital. ?Was tx w/cefepime x 5 days in hospital for pneumonia.? Patient presented to ED for persistent right-sided abdominal pain, increasing shortness of breath from her baseline, improving productive cough, and new bruising that is track down her left leg, and legs have increased swelling right more so than left..She is not anticoagulated while in the hospital she had an IVC filter placed.? Patient denies any fevers, no chest pain or pressure. ? No nausea or vomiting.? She is been stooling regularly but was having constipation before.? She denies dysuria urgency or frequency. ?Continued Left lower abdominal tenderness. family also note that her weight is up she was 217 lb and was less than 210 before her hospitalization.? She states they did stop her diuretics for several days but resume them while in the hospital. While in the ED patient was given albuterol nebulizer, 40 of IV Lasix DuoNeb and tizanidine. The time of admit patient is stable right lower quadrant abdominal pain has improved as has shortness of breath. Patient is up to the bedside commode in no distress at this time. Her main concern is pain control. At the time of admission Mild temp 99.1?, 95/63, 84, 22, 96% on 3 L. no white count neutrophils 8300, mono 1000, H&H are stable at baseline 01/10.4, platelets 644, sodium 133, glucose 163, troponin and COVID are negative, BNP 2990, patient's chest CTA possible interstitial lung disease possible right lower lobe subsegmental PE x2. Patient's CT angio shows some very small subsegmental emboli which likely not be treated normally anyway she has IVC filter in place she is not a candidate for anticoagulation currently.?RV to LV ratio 1.3, this is noted to be higher than previous which was 1.1 ratio, low lung volumes noted, mild bibasilar opacities questionable pneumonia versus atelectasis. Abdomen pelvis CT thickening/hyper enhancement at terminal ileum possible Crohn's disease, hematoma lower left quadrant has decreased in size since imaging on 08/15/2022, moderate amount of stool in colon suggestive of possible constipation. EKG sinus rhythm rate [address] or T-wave changes and EKG is unchanged from previous. Patient admitted to the ICU for observation for acute on chronic respiratory failure, subsegmental PE x2, right lower quadrant abdominal pain and abdominal hematoma. [facility] Medical History Abnormal chest xray (~1979) Anemia Ankle pain Anticoagulated Asthma (~1959) Bronchiectasis (~2006) Cervical spine disease Chronic back pain Colon polyps (~2015) Degenerative joint disease of spine (~2001) Diabetes mellitus, type II (~2009) Eczema Fibromyalgia Foot pain Hoarseness Hyperlipidemia Hypertension Hypothyroidism Migraines (~1964) 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 Osteopenia Pneumonia Pneumonia Recurrent sinusitis (~1970) Restless leg syndrome Shoulder pain (~03/2018) Sleep apnea Wears glasses Surgical History Anesthesia History of carpal tunnel release History of cataract removal with insertion of prosthetic lens (~2014) History of section History of laminectomy (~2002) History of spinal fusion (~2012) History of thumb surgery Family History Father Stroke Mother Hypertension Brother Cerebral aneurysm Prostate cancer Diabetes mellitus Hypertension Stroke Brother Arthritis Hyperlipidemia Hypertension Sister History of kidney cancer Hypertension Grandfather Cancer Grandmother Cancer Other Family history non-contributory Social History household members: spouse Smoking Status: Never smoker alcohol intake: current Meds Home Medications and Allergies Home Medications Medication Instructions Recorded Confirmed Type polyethylene glycol 3350 17 17 gm PO DAILY PRN Constipation ##0 06/06/17 08/25/22 History gram/dose oral powder (Miralax) albuterol sulfate 90 mcg/actuation 2 puff inhalation Q4-6H PRN 05/29/19 08/25/22 History aerosol inhaler Shortness Of Breath cholecalciferol (vitamin D3) 50 2,000 unit PO DAILY 05/29/19 08/25/22 History mcg (2,000 unit) tablet ferrous sulfate 325 mg (65 mg 325 mg PO BEDTIME 05/29/19 08/25/22 History iron) tablet tizanidine 4 mg capsule 4 mg PO QID PRN Muscle Spasm 05/29/19 08/25/22 History sodium chloride 3 % for 3 ml inhalation BID 06/05/19 08/25/22 History nebulization ondansetron HCl 4 mg tablet 4 mg PO Q8H PRN nausea and 10/06/19 08/25/22 Rx (Zofran) vomiting #30 tabs cetirizine 10 mg capsule (Zyrtec) 10 mg PO DAILY allergies 01/20/20 08/25/22 History montelukast 10 mg tablet 10 mg PO BEDTIME 01/20/20 08/25/22 History (Singulair) verio reflect glucometer #1 ea 01/28/20 08/25/22 Rx insulin syringe-needle U-100 0.5 #100 ea 03/30/20 08/25/22 Rx mL 31 gauge x 5/16 (BD Insulin Syringe Ultra-Fine) metformin 1,000 mg tablet 1,000 mg PO BID #180 tabs 09/03/20 08/25/22 Rx atorvastatin 40 mg tablet 40 mg PO BEDTIME 04/20/21 08/25/22 History epinephrine 0.3 mg/0.3 mL 0.3 mg IM Q5-15M PRN Allergic 04/20/21 08/25/22 History injection, auto-injector (EpiPen) Reaction insulin glargine 100 unit/mL 30 unit SUBCUT QAM 04/20/21 08/25/22 History subcutaneous solution insulin lispro 100 unit/mL 4 - 8 unit SUBCUT TID 04/20/21 08/25/22 History subcutaneous pen (Humalog KwikPen (U-100) Insulin) ipratropium 0.5 mg-albuterol 3 mg 3 ml inhalation BID 04/20/21 08/25/22 History (2.5 mg base)/3 mL nebulization soln levothyroxine 75 mcg tablet 75 mcg PO QAM 04/20/21 08/25/22 History nortriptyline 25 mg capsule 25 mg PO BEDTIME 04/20/21 08/25/22 History tiotropium bromide 18 mcg capsule 1 cap inhalation DAILY 04/20/21 08/25/22 History with inhalation device (Spiriva with HandiHaler) lansoprazole 15 mg capsule,delayed 30 mg PO BID 04/29/21 08/25/22 History release (Prevacid 24Hr) duloxetine 30 mg capsule,delayed 30 mg PO DAILY 06/28/21 08/25/22 History release fluticasone 500 mcg-salmeterol 50 1 inh inhalation BID 06/28/21 08/25/22 History mcg/dose blistr powdr for inhalation (Wixela Inhub) guaifenesin 1,200 mg tablet, 1,200 mg PO BID 06/28/21 08/25/22 History extended release 12 hr (Mucinex) oxycodone-acetaminophen 10 mg-325 1 tab PO Q4H PRN Pain (Scale Score 06/28/21 08/25/22 History mg tablet (Percocet) 4-6) pramipexole 0.5 mg tablet 0.5 mg PO BEDTIME 06/28/21 08/25/22 History fentanyl 25 mcg/hr transdermal 1 patch transdermal Q72H PRN pain 02/05/22 08/25/22 Rx patch (scale score 1-3) #5 ea docusate sodium 100 mg tablet 200 mg PO DAILY 04/24/22 08/25/22 History omega-3 fatty acids 1,000 mg PO DAILY 04/24/22 08/25/22 History benralizumab 30 mg/mL subcutaneous 30 mg SUBCUT Q8W 06/03/22 08/25/22 History syringe (Fasenra) sxohmqauie-euhvcxumshdnz-vswswcun 1 tab PO Q6H PRN Migraine Headache 06/03/22 08/25/22 History 50 mg-325 mg-40 mg tablet clonidine HCl 0.1 mg tablet 0.05 mg PO BID 06/03/22 08/25/22 History oxycodone 5 mg capsule 15 mg PO Q6H PRN Pain (Scale Score 06/03/22 08/25/22 History 7-10) oxymetazoline 0.05 % nasal drops 1 drp intranasal BID PRN Congestion 06/03/22 08/25/22 History prednisone 5 mg tablet 5 mg PO DAILY 06/03/22 08/25/22 History Hizintra 15 g SUBCUT QWEEK 08/25/22 History fluticasone 500 mcg-salmeterol 50 1 inh inhalation Q12H 08/25/22 08/25/22 History mcg/dose blistr powdr for inhalation (Advair Diskus) furosemide 20 mg tablet 20 mg PO DAILY 08/25/22 08/25/22 History Allergies Allergy/AdvReac Type Severity Reaction Status Date / Time hydroxychloroquine Allergy Unknown Verified 08/14/22 13:56 [HYDROXYCHLOROQUINE] promethazine [From Phenergan] Allergy Agitated Verified 08/14/22 13:56 cefepime AdvReac Intermediate pruritis Verified 08/14/22 13:56 Review of Systems Review of Systems Narrative: All 12 point systems reviewed with the patient and are negative except otherwise documented. Exam Vital Signs (past 8 hours): - 08/25/22 15:00 08/25/22 15:00 08/25/22 15:30 Temperature Pulse Rate 75 79 Respiratory Rate 18 26 H Blood Pressure 122/56 L Pulse Oximetry 99 98 Oxygen Delivery Method Oxygen Flow Rate 08/25/22 16:00 08/25/22 16:00 08/25/22 16:30 Temperature Pulse Rate 79 Respiratory Rate 18 Blood Pressure 120/58 L 127/58 L Pulse Oximetry 98 Oxygen Delivery Method Oxygen Flow Rate 08/25/22 16:30 08/25/22 17:00 05/12/23 17:26 Temperature Pulse Rate 86 79 80 Respiratory Rate 34 H 21 24 Blood Pressure Pulse Oximetry 98 98 98 Oxygen Delivery Method Oxygen Flow Rate 08/25/22 17:26 08/25/22 17:30 08/25/22 17:30 Temperature Pulse Rate 79 Respiratory Rate 20 Blood Pressure 111/68 109/56 L Pulse Oximetry 97 Oxygen Delivery Method Oxygen Flow Rate 08/25/22 17:45 08/25/22 18:00 08/25/22 18:00 Temperature Pulse Rate 82 80 Respiratory Rate 22 30 H Blood Pressure 102/59 L Pulse Oximetry 96 97 Oxygen Delivery Method Nasal Cannula Oxygen Flow Rate 3 08/25/22 18:30 08/25/22 18:31 08/25/22 18:31 Temperature Pulse Rate 79 79 Respiratory Rate 18 27 H Blood Pressure 125/56 L Pulse Oximetry 95 96 Oxygen Delivery Method Oxygen Flow Rate 08/25/22 19:00 08/25/22 19:01 08/25/22 19:01 Temperature Pulse Rate 84 84 Respiratory Rate 29 H 22 Blood Pressure 95/63 Pulse Oximetry 96 96 Oxygen Delivery Method Oxygen Flow Rate 08/25/22 21:35 Temperature 99.1 F Pulse Rate 92 H Respiratory Rate 18 Blood Pressure 128/48 L Pulse Oximetry 97 Oxygen Delivery Method Oxygen Flow Rate 6 Oxygen Delivery Method Nasal Cannula Oxygen Flow Rate 6 Narrative Exam Narrative: GENERAL: Alert and oriented x three, obese female in no distress at this time. HEENT: Head normocephalic, atraumatic, EOMI, pupils reactive, face symmetric, moist mucous membranes, nasal cannula in place. NECK: Supple, full range of motion CARDIOVASCULAR: Regular rate and rhythm without murmurs, rubs or gallops.? No JVD.? Patient has swelling bilateral lower extremities.? She is some scant erythema on the anterior shins- which is her base line, ecchymosis but no hematoma appreciated on her left posterior thigh. RESPIRATORY: Breath sounds equal bilaterally, no wheezes, occ crackles.? No Rales or rhonchi.? No tachypnea or accessory muscle use.? Patient speaks in full sentences. ABDOMEN: Soft, nontender.? Normoactive bowel sounds all 4 quadrants.? No guarding or rebound, rigidity, no mass : No CVA tenderness EXTREMITIES: Normal range of motion, no clubbing.? Bilateral lower extremity edema, mild.? Neurovascularly intact NEUROLOGICAL: Cranial nerves II through XII grossly intact.? Moving all extremities SKIN: Warm, dry, no petechiae, no rashes or lesions, with the exceptions noted above. Objective Labs 08/25/22 12:28 08/25/22 12:28 Labs: Laboratory Results - last 24 hr 08/25/22 08/25/22 08/25/22 12:28 12:28 12:28 WBC 10.6 RBC 3.21 L Hgb 9.0 L Hct 27.4 L MCV 85.4 D MCH 27.9 MCHC 32.7 RDW 21.9 H Plt Count 644 H Neut % (Auto) 78.5 H Lymph % (Auto) 10.9 L Victoria % (Auto) 9.8 Eos % (Auto) 0.0 L Baso % (Auto) 0.8 Neut # (Auto) 8300 H Lymph # (Auto) 1200 Victoria # (Auto) 1000 H Eos # (Auto) 0 Baso # (Auto) 100 Nucleated RBCs Cancelled Hypersegmented Neuts Cancelled Hypogranular Neuts Cancelled Reactive Lymphocytes Cancelled Smudge Cells Cancelled Other Cell Type Cancelled Toxic Granulation Cancelled Toxic Vacuolation Cancelled Dohle Bodies Cancelled Jenny Rods Cancelled WBC Morphology Comment Cancelled Platelet Estimate Cancelled Clumped Platelets Cancelled Plt Morphology Comment Cancelled RBC Morphology Cancelled Dimorphic RBCs Cancelled Polychromasia Cancelled Hypochromasia Cancelled Poikilocytosis Cancelled Basophilic Stippling Cancelled Anisocytosis Cancelled Microcytosis Cancelled Macrocytosis Cancelled Spherocytes Cancelled Pappenheimer Bodies Cancelled Sickle Cells Cancelled Target Cells Cancelled Tear Drop Cells Cancelled Ovalocytes Cancelled Stomatocytes Cancelled Helmet Cells Cancelled [place] Bodies Cancelled Coello Rings Cancelled [place] Cells Cancelled Acanthocytes (Spur) Cancelled Rouleaux Cancelled Schistocytes Cancelled PT 14.9 H D INR 1.3 APTT 30 Sodium 133 L Potassium 4.4 Chloride 99 Carbon Dioxide 30 BUN 14 Creatinine 0.65 Estimated GFR > 60 BUN/Creatinine Ratio 21.5 Glucose 163 H Calcium 8.8 Total Bilirubin 0.9 AST 26 ALT 20 Alkaline Phosphatase 80 Total Creatine Kinase 41 CK-MB (CK-2) TNP CK-MB (CK-2) Rel Index TNP Troponin I < 0.012 NT-Pro-B Natriuret Pep Total Protein 6.4 Albumin 3.2 L Globulin 3.2 Albumin/Globulin Ratio 1.0 Lipase 32 SARS-CoV-2 (PCR) 08/25/22 08/25/22 08/25/22 12:28 16:36 20:02 WBC RBC Hgb Hct MCV MCH MCHC RDW Plt Count Neut % (Auto) Lymph % (Auto) [place] % (Auto) Eos % (Auto) Baso % (Auto) Neut # (Auto) Lymph # (Auto) [place] # (Auto) Eos # (Auto) Baso # (Auto) Nucleated RBCs Hypersegmented Neuts Hypogranular Neuts Reactive Lymphocytes Smudge Cells Other Cell Type Toxic Granulation Toxic Vacuolation Dohle Bodies Jenny Rods WBC Morphology Comment Platelet Estimate Clumped Platelets Plt Morphology Comment RBC Morphology Dimorphic RBCs Polychromasia Hypochromasia Poikilocytosis Basophilic Stippling Anisocytosis Microcytosis Macrocytosis Spherocytes Pappenheimer Bodies Sickle Cells Target Cells Tear Drop Cells Ovalocytes Stomatocytes Helmet Cells [place] Bodies Coello Rings [place] Cells Acanthocytes (Spur) Rouleaux Schistocytes PT INR APTT Sodium Potassium Chloride Carbon Dioxide BUN Creatinine Estimated GFR BUN/Creatinine Ratio Glucose Calcium Total Bilirubin AST ALT Alkaline Phosphatase Total Creatine Kinase CK-MB (CK-2) CK-MB (CK-2) Rel Index Troponin I < 0.012 NT-Pro-B Natriuret Pep 2990 H Total Protein Albumin Globulin Albumin/Globulin Ratio Lipase SARS-CoV-2 (PCR) Negative Assessment & Plan Assessment & Plan narrative: Radha Zavaleta is a 72-year-old female with history significant for DVT, DCHF, atrial fibrillation, pulmonary emboli, NSTEMI, asthma, sleep apnea, hypothyroidism, diabetes, hypertension, dyslipidemia, fibromyalgia, GERD, dm 2, RLS, asthma bronchiolectasis, acute on chronic respiratory failure on constant O2 2-3 L. Patient admitted to the ICU for observation for acute on chronic respiratory failure, subsegmental PE x2, right lower quadrant abdominal pain and abdominal hematoma. # acute on chronic hypoxic respiratory failure in setting of asthma and bronchiectasis, small subsegmental emboli, acute, present on admission -normally on 2-3L NC at home, currently on 3 L 94%, was requiring 5 L improved following Lasix in ED. -followed outpatient by Dr. Oscar pulmonology at [facility] -etiology likely due to fluid over load as she was off her lasix for a few days, although exacerbation may be from RLL subsegmental PEs, and mild bibasilar opacities questionable pneumonia versus atelectasis. -has IVC filter in place she is not a candidate for anticoagulation. -patient has no white count, ordered procalcitonin, sputum culture not treating with antibiotics at this time -duonebs PRN, respiratory consult as needed, spirometry -prednisone -continue home singulair, Spiriva, advair # right lower quadrant abdominal pain, acute, present on admission -likely secondary to thickening/hyper enhancement at terminal ileum possible Crohn's disease -possible constipation -bowel management -prednisone, Protonix, pain management -general surgery consult Dr. Ha -outpatient follow up with GI # abdominal hematoma, acute on chronic, present on admission -likely the bruising in the left thigh is secondary to the blood moving downward from the hematoma with gravity -general surgery consult Dr. Ha # hypomagnesemia -mag 1.5 -2g ordered -monitor and replete PRN # history of PE and A-fib -IVC filter in place-no anticoagulation # diastolic heart failure with preserved ejection fraction, present on admission -2021 EF 60-65% -fluid restriction -echo ordered -daily weights # DM2 with associated hyperlipidemia -continue Lantus, medium dose sliding scale for coverage, admitted under diabetic protocol a.c. HS blood sugar checks -check A1c -hold metformin -continue statin # RLS -continue home mirapex # neuropathy -continue cymbalta, nortriptyline and lyrica, tizanidine Code status is DNR/DNI. COVID negative. DVT prophylaxis SCD's only Proxy is has been Harjeet. Disposition: Patient admitted overnight for observation expected length of stay less than 2 midnights. I have utilized all available immediate resources to obtain, update, or review the patient's current medications. I confirmed that the patient's advanced care plan is present, Code status is documented and/or surrogate decision maker is listed in the patient's medical record. I have personally reviewed patient's chart notes from PCP, specialists, diagnostic imaging, and laboratory results.
[2022-08-25] MEDS: PRAMIPEXOLE 0.25 MG TABLET 0.5 MG PO (22:37)
[2022-08-25] MEDS: polyethylene glycoL 3350 17 GM POWD.PACK PO (22:37)
[2022-08-25] MEDS: CALCIUM CARBONATE 500 MG TAB 1000 MG PO (22:38)
[2022-08-25] MEDS: SENNOSIDES 8.6 MG TABLET 17.2 MG PO (22:38)
[2022-08-25] MEDS: ALBUTEROL/IPRATROPIUM 3 ML AMPUL INH (22:39)
[2022-08-25] MEDS: cloNIDine 0.1 MG TABLET 0.05 MG PO (22:39)
[2022-08-25] MEDS: NORTRIPTYLINE HCL 25 MG CAPSULE PO (22:39)
[2022-08-25] MEDS: DOCUSATE 100 MG CAPSULE PO (22:39)
[2022-08-25 23:11] LABS: Magnesium 1.5 mg/dL (1.6-2.3)
[2022-08-25 23:43] LABS: Thyroid Stimulating Hormone 3.07 uIU/mL (0.47-4.68)
[2022-08-26] VITALS (13 sets, daily range): BP systolic 103–133; BP diastolic 41–63; PULSE 68–102; RESP 16–24; TEMP 36.8–38.7; O2SAT 92–98
--- NOTE | 2022-08-26 01:00 | PC.NURSE ---
Pt c/o pain. PRN percocet 5/325 administered per pt request at 0054 on 08/26/22.
[2022-08-26] MEDS: MAGNESIUM SULFATE 2 GM/50 ML PIGGYBACK IV (02:38)
[2022-08-26] MEDS: OXYCODONE IR 5 MG TABLET 15 MG PO (05:07)
[2022-08-26] MEDS: TIZANIDINE 4 MG TABLET PO ×2 (06:18→12:25)
[2022-08-26] MEDS: OXYCODONE/ACETAMINOPHEN 5/325 TABLET 2 TAB PO ×2 (06:18→10:43)
[2022-08-26 07:37] LABS: Add Manual Diff / Slide Review NO; Basophils Absolute Auto 100 /uL (0-100); Eosinophils Absolute Auto 0 /uL (0-450); Hematocrit 26.5 % (36-46); Lymphocytes Absolute Auto 700 /uL (1100-4500); Lymphocytes Percent Auto 10.4 % (25-40); Mean Corpuscular HGB Conc 33.8 % (30-36); Mean Corpuscular Hemoglobin 28.8 PG (26-34); Mean Corpuscular Volume 85.2 fL (80-100); Monocytes Absolute Auto 500 /uL (0-900); Monocytes Percent Auto 6.7 % (3-14); Neutrophils Absolute Auto 5700 /uL (1500-7000); Neutrophils Percent Auto 81.9 % (50-75); Platelet Count 655 X10^3/uL (150-400); Red Blood Cell Count 3.11 X10^6/uL (4.0-5.2); Red Cell Distribution Width 22.1 % (11.6-14.8)
[2022-08-26 07:43] LABS: INR 1.3 (0.9-1.3)
[2022-08-26 07:55] LABS: Blood Urea Nitrogen 17 mg/dL (7-17); Calcium 8.8 mg/dL (8.4-10.2); Carbon Dioxide 32 mmol/L (22-32); Chloride 95 mmol/L (98-107); Estimated Glomerular Filt Rate > 60 mL/min (>60); Glucose 166 mg/dL (80-110); HEMOLYSIS < 15 (0-50); Potassium 5.2 mmol/L (3.4-5.1); Sodium 132 mmol/L (137-145)
[2022-08-26 08:03] LABS: NT-proBNP (BNP-Adult 18+) 2800 pg/mL (<125)
[2022-08-26 08:05] LABS: Troponin I < 0.012 ng/mL (0.01-0.034)
--- NOTE | 2022-08-26 08:42 | P.PN_ITS ---
Subjective Subjective Interval history: Patient beginning to feel better overall. Getting an appetite. Like to get up if her pain is controlled better. Main pain is in the right lower quadrant. Exam Vital Signs (past 8 hours): - 08/26/22 02:00 08/26/22 04:07 08/26/22 07:41 Temperature 98.6 F 98.9 F Pulse Rate 68 91 H 95 H Respiratory Rate 24 17 18 Blood Pressure 122/63 133/62 Pulse Oximetry 92 95 96 Oxygen Flow Rate 6 Oxygen Delivery Method Nasal Cannula,CPAP Oxygen Flow Rate 6 Narrative Exam Narrative: GENERAL: Alert and oriented x three, obese and in no acute medical distress. HEENT: Head normocephalic, atraumatic, EOMI, pupils reactive, face symmetric, moist mucous membranes, nasal cannula in place. NECK: Supple, full range of motion CARDIOVASCULAR: Regular rate and rhythm with normal heart sounds.? No JVD.? Patient has some swelling bilateral lower extremities.? She is some scant erythema on the anterior shins- which is her base line,? ecchymosis but no hematoma on her left posterior thigh and nontender. RESPIRATORY: Breath sounds equal bilaterally, no wheezes, but some minimal crackles at bases.? No tachypnea or accessory muscle use.? Patient speaks in full sentences. ABDOMEN: Soft, tender right lower quadrant.? Normoactive bowel sounds all 4 quadrants.? No guarding or rebound, rigidity, no mass : No CVA tenderness EXTREMITIES: Normal range of motion, no clubbing.? Bilateral lower extremity edema, mild.? Neurovascularly intact NEUROLOGICAL: Cranial nerves II through XII grossly intact.? Moving all extremities SKIN: Warm, dry, no petechiae, no rashes or lesions, with the exceptions noted above. Objective Labs 08/26/22 07:15 08/26/22 07:15 Labs: Laboratory Results - last 24 hr 08/25/22 08/25/22 08/25/22 12:28 12:28 12:28 WBC 10.6 RBC 3.21 L Hgb 9.0 L Hct 27.4 L MCV 85.4 D MCH 27.9 MCHC 32.7 RDW 21.9 H Plt Count 644 H Neut % (Auto) 78.5 H Lymph % (Auto) 10.9 L [place] % (Auto) 9.8 Eos % (Auto) 0.0 L Baso % (Auto) 0.8 Neut # (Auto) 8300 H Lymph # (Auto) 1200 [place] # (Auto) 1000 H Eos # (Auto) 0 Baso # (Auto) 100 Nucleated RBCs Cancelled Hypersegmented Neuts Cancelled Hypogranular Neuts Cancelled Reactive Lymphocytes Cancelled Smudge Cells Cancelled Other Cell Type Cancelled Toxic Granulation Cancelled Toxic Vacuolation Cancelled Dohle Bodies Cancelled Jenny Rods Cancelled WBC Morphology Comment Cancelled Platelet Estimate Cancelled Clumped Platelets Cancelled Plt Morphology Comment Cancelled RBC Morphology Cancelled Dimorphic RBCs Cancelled Polychromasia Cancelled Hypochromasia Cancelled Poikilocytosis Cancelled Basophilic Stippling Cancelled Anisocytosis Cancelled Microcytosis Cancelled Macrocytosis Cancelled Spherocytes Cancelled Pappenheimer Bodies Cancelled Sickle Cells Cancelled Target Cells Cancelled Tear Drop Cells Cancelled Ovalocytes Cancelled Stomatocytes Cancelled Helmet Cells Cancelled [place] Bodies Cancelled [place] Rings Cancelled [place] Cells Cancelled Acanthocytes (Spur) Cancelled Rouleaux Cancelled Schistocytes Cancelled PT 14.9 H D INR 1.3 APTT 30 Sodium 133 L Potassium 4.4 Chloride 99 Carbon Dioxide 30 BUN 14 Creatinine 0.65 Estimated GFR > 60 BUN/Creatinine Ratio 21.5 Glucose 163 H Calcium 8.8 Magnesium Total Bilirubin 0.9 AST 26 ALT 20 Alkaline Phosphatase 80 Total Creatine Kinase 41 CK-MB (CK-2) TNP CK-MB (CK-2) Rel Index TNP Troponin I < 0.012 NT-Pro-B Natriuret Pep Total Protein 6.4 Albumin 3.2 L Globulin 3.2 Albumin/Globulin Ratio 1.0 Lipase 32 TSH SARS-CoV-2 (PCR) 08/25/22 08/25/22 08/25/22 12:28 12:28 16:36 WBC RBC Hgb Hct MCV MCH MCHC RDW Plt Count Neut % (Auto) Lymph % (Auto) [place] % (Auto) Eos % (Auto) Baso % (Auto) Neut # (Auto) Lymph # (Auto) [place] # (Auto) Eos # (Auto) Baso # (Auto) Nucleated RBCs Hypersegmented Neuts Hypogranular Neuts Reactive Lymphocytes Smudge Cells Other Cell Type Toxic Granulation Toxic Vacuolation Dohle Bodies Jenny Rods WBC Morphology Comment Platelet Estimate Clumped Platelets Plt Morphology Comment RBC Morphology Dimorphic RBCs Polychromasia Hypochromasia Poikilocytosis Basophilic Stippling Anisocytosis Microcytosis Macrocytosis Spherocytes Pappenheimer Bodies Sickle Cells Target Cells Tear Drop Cells Ovalocytes Stomatocytes Helmet Cells [place] Bodies [place] Rings Chang Cells Acanthocytes (Spur) Rouleaux Schistocytes PT INR APTT Sodium Potassium Chloride Carbon Dioxide BUN Creatinine Estimated GFR BUN/Creatinine Ratio Glucose Calcium Magnesium Total Bilirubin AST ALT Alkaline Phosphatase Total Creatine Kinase CK-MB (CK-2) CK-MB (CK-2) Rel Index Troponin I < 0.012 NT-Pro-B Natriuret Pep 2990 H Total Protein Albumin Globulin Albumin/Globulin Ratio Lipase TSH 3.07 SARS-CoV-2 (PCR) 08/25/22 08/25/22 08/26/22 16:36 20:02 07:15 WBC 7.0 RBC 3.11 L Hgb 9.0 L Hct 26.5 L MCV 85.2 MCH 28.8 MCHC 33.8 RDW 22.1 H Plt Count 655 H Neut % (Auto) 81.9 H Lymph % (Auto) 10.4 L [place] % (Auto) 6.7 Eos % (Auto) 0.0 L Baso % (Auto) 1.0 Neut # (Auto) 5700 Lymph # (Auto) 700 L [place] # (Auto) 500 Eos # (Auto) 0 Baso # (Auto) 100 Nucleated RBCs Cancelled Hypersegmented Neuts Cancelled Hypogranular Neuts Cancelled Reactive Lymphocytes Cancelled Smudge Cells Cancelled Other Cell Type Cancelled Toxic Granulation Cancelled Toxic Vacuolation Cancelled Dohle Bodies Cancelled Jenny Rods Cancelled WBC Morphology Comment Cancelled Platelet Estimate Cancelled Clumped Platelets Cancelled Plt Morphology Comment Cancelled RBC Morphology Cancelled Dimorphic RBCs Cancelled Polychromasia Cancelled Hypochromasia Cancelled Poikilocytosis Cancelled Basophilic Stippling Cancelled Anisocytosis Cancelled Microcytosis Cancelled Macrocytosis Cancelled Spherocytes Cancelled Pappenheimer Bodies Cancelled Sickle Cells Cancelled Target Cells Cancelled Tear Drop Cells Cancelled Ovalocytes Cancelled Stomatocytes Cancelled Helmet Cells Cancelled [place] Bodies Cancelled [place] Rings Cancelled [place] Cells Cancelled Acanthocytes (Spur) Cancelled Rouleaux Cancelled Schistocytes Cancelled PT INR APTT Sodium Potassium Chloride Carbon Dioxide BUN Creatinine Estimated GFR BUN/Creatinine Ratio Glucose Calcium Magnesium 1.5 L Total Bilirubin AST ALT Alkaline Phosphatase Total Creatine Kinase CK-MB (CK-2) CK-MB (CK-2) Rel Index Troponin I NT-Pro-B Natriuret Pep Total Protein Albumin Globulin Albumin/Globulin Ratio Lipase TSH SARS-CoV-2 (PCR) Negative 08/26/22 08/26/22 08/26/22 07:15 07:15 07:15 WBC RBC Hgb Hct MCV MCH MCHC RDW Plt Count Neut % (Auto) Lymph % (Auto) [place] % (Auto) Eos % (Auto) Baso % (Auto) Neut # (Auto) Lymph # (Auto) [place] # (Auto) Eos # (Auto) Baso # (Auto) Nucleated RBCs Hypersegmented Neuts Hypogranular Neuts Reactive Lymphocytes Smudge Cells Other Cell Type Toxic Granulation Toxic Vacuolation Dohle Bodies Jenny Rods WBC Morphology Comment Platelet Estimate Clumped Platelets Plt Morphology Comment RBC Morphology Dimorphic RBCs Polychromasia Hypochromasia Poikilocytosis Basophilic Stippling Anisocytosis Microcytosis Macrocytosis Spherocytes Pappenheimer Bodies Sickle Cells Target Cells Tear Drop Cells Ovalocytes Stomatocytes Helmet Cells [place] Bodies [place] Rings [place] Cells Acanthocytes (Spur) Rouleaux Schistocytes PT 15.0 H INR 1.3 APTT Sodium 132 L Potassium 5.2 H Chloride 95 L Carbon Dioxide 32 BUN 17 Creatinine 0.68 Estimated GFR > 60 BUN/Creatinine Ratio 25.0 H Glucose 166 H Calcium 8.8 Magnesium Total Bilirubin AST ALT Alkaline Phosphatase Total Creatine Kinase CK-MB (CK-2) CK-MB (CK-2) Rel Index Troponin I < 0.012 NT-Pro-B Natriuret Pep 2800 H Total Protein Albumin Globulin Albumin/Globulin Ratio Lipase TSH SARS-CoV-2 (PCR) [facility] Medical History Abnormal chest xray (~1979) Anemia Ankle pain Anticoagulated Asthma (~1959) Bronchiectasis (~2006) Cervical spine disease Chronic back pain Colon polyps (~2016) Degenerative joint disease of spine (~2001) Diabetes mellitus, type II (~2009) Eczema Fibromyalgia Foot pain Hoarseness Hyperlipidemia Hypertension Hypothyroidism Migraines (~1965) 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 Osteopenia Pneumonia Pneumonia Recurrent sinusitis (~1970) Restless leg syndrome Shoulder pain (~03/2018) Sleep apnea Wears glasses Surgical History Anesthesia History of carpal tunnel release History of cataract removal with insertion of prosthetic lens (~2014) History of section History of laminectomy (~2002) History of spinal fusion (~2012) History of thumb surgery Family History Father Stroke Mother Hypertension Brother Cerebral aneurysm Prostate cancer Diabetes mellitus Hypertension Stroke Brother Arthritis Hyperlipidemia Hypertension Sister History of kidney cancer Hypertension Grandfather Cancer Grandmother Cancer Other Family history non-contributory Social History household members: spouse Smoking Status: Never smoker alcohol intake: current Assessment & Plan Assessment & Plan narrative: # acute on chronic hypoxic respiratory failure in setting of asthma and bronchiectasis, small subsegmental emboli, acute, present on admission, still requiring oxygen supplementation greater than baseline -normally on 2-3L NC at home, currently on 3 L 94%, was requiring 5 L improved following Lasix? in ED. Currently on 6 liters/minute. -followed outpatient by Dr. Oscar pulmonology at [facility] -etiology likely due to fluid over load as she was off her lasix for a few days, although exacerbation may be from RLL subsegmental PEs, and mild bibasilar opacities questionable pneumonia versus atelectasis. Currently not on antibiotics and trending labs. -has IVC filter in place she is not a candidate for anticoagulation. -patient has no white count on presentation, ordered procalcitonin which is pending today, sputum culture not treating with antibiotics at this time -sputum culture is still pending without collection yet -duonebs PRN, respiratory consult as needed, spirometry -prednisone -continue home singulair, Spiriva, advair # right lower quadrant abdominal pain, acute, present on admission -likely secondary to thickening/hyper enhancement at terminal ileum possible Crohn's disease -possible constipation -bowel management -prednisone, Protonix, pain management -general surgery consult Dr. aH -outpatient follow up with GI # abdominal hematoma, acute on chronic, present on admission -likely the bruising in the left thigh is secondary to the blood moving downward from the hematoma with gravity -general surgery consult Dr. Ha # hypomagnesemia -mag 1.5 -2g ordered. followup level pending -monitor and replete PRN, # history of PE and A-fib -IVC filter in place-no anticoagulation # diastolic heart failure with preserved ejection fraction, present on admission -2021 EF 60-65% -fluid restriction -echo ordered -daily weights -BNP beginning to trend downward. Continue to follow # DM2 with associated hyperlipidemia -continue Lantus, medium dose sliding scale for coverage, admitted under diabetic protocol a.c. HS blood sugar checks -check A1c -hold metformin -continue statin # RLS -continue home mirapex # neuropathy -continue cymbalta, nortriptyline and lyrica, tizanidine Follow labs and clinically. Code status is DNR/DNI. COVID negative. DVT prophylaxis? SCD's only Proxy is has been Harjeet. Quality VTE Deep Vein Thrombosis/Pulmonary Embolism Present on Admission: No
[2022-08-26] MEDS: LEVOTHYROXINE 75 MCG TABLET PO (08:47)
[2022-08-26] MEDS: INSULIN LISPRO 100 UNIT/ML 3ML VIAL SUBCUT ×3 (08:49→17:10)
[2022-08-26] MEDS: guaiFENesin ER 600 MG TAB 1200 MG PO ×2 (08:51→21:02)
[2022-08-26] MEDS: cloNIDine 0.1 MG TABLET 0.05 MG PO ×2 (08:51→21:11)
[2022-08-26] MEDS: DULOXETINE 30 MG CAPSULE PO (08:53)
[2022-08-26] MEDS: DOCUSATE 100 MG CAPSULE PO ×2 (08:53→21:14)
[2022-08-26] MEDS: PANTOPRAZOLE 40 MG VIAL 20 MG IV (08:54)
[2022-08-26] MEDS: FUROSEMIDE 20 MG/2 ML VIAL IV ×2 (08:54→21:14)
[2022-08-26] MEDS: HYDROMORPHONE 0.5 MG INJ IV (09:06)
[2022-08-26] MEDS: INSULIN GLARGINE 100 UNIT/ML 3ML PEN 30 UNIT SUBCUT (09:12)
[2022-08-26 09:22] LABS: Magnesium 1.6 mg/dL (1.6-2.3)
[2022-08-26 09:23] LABS: Carbon Dioxide 33 mmol/L (22-32); Chloride 96 mmol/L (98-107); HEMOLYSIS < 15 (0-50); Potassium 4.9 mmol/L (3.4-5.1); Sodium 132 mmol/L (137-145)
[2022-08-26 09:40] LABS: Procalcitonin 0.07 ng/mL (<0.5)
[2022-08-26] MEDS: ALBUTEROL/IPRATROPIUM 3 ML AMPUL INH ×3 (10:17→18:58)
[2022-08-26] MEDS: BUDESONIDE 0.5 MG/2 ML NEB INH ×2 (10:18→18:58)
[2022-08-26] MEDS: OXYCODONE IR 5 MG TABLET 10 MG PO ×3 (11:15→21:20)
[2022-08-26] MEDS: HYDROMORPHONE 1 MG INJ IV (11:16)
[2022-08-26 11:46] LABS: Troponin I < 0.012 ng/mL (0.01-0.034)
--- NOTE | 2022-08-26 12:06 | CM.DANOTE ---
DCP: Case received, EMR reviewed and met with patient. Spouse, Harjeet, was at bedside. Introduced self and role, this DCP is familiar with patient and spouse from previous visits. Was able to complete DCP assessment based upon information currently available. Patient is a 72 year old female who admitted yesterday evening to the care of the hospitalist team. PCP: Dr. Porter. Payer: confirmed: [facility]. Patient came to the hospital via ambulance secondary to persistent abdominal pain. Notes indicate that patient was recently at [facility] for IVC filter placed for PE. Notes also indicate that patient had retroperitoneal bleed secondary to elevated INR, and received 2 units of PRBC at [facility]. Patient was hospitalized through August 23, and returned home. Patient is normally on home oxygen, between 2-3 liters. Patient was admitted for acute on chronic respiratory failure, subsegmental P.E. times 2. Met with patient in her room, spouse, Harjeet at bedside. Confirmed that they both reside here in [place]. She has home oxygen through . She has been with [facility], indicated that RN and P.T. recently discharged her, but O.T. still in. Patient is happy with home health services, would like to reinstate RN, P.T, and add bath aide. Spouse is supportive, is a retired ortho PAC. Patient does not drive due to oxygen needs. P: DCP to continue to follow. Plan is home with Diane. Called [facility], spoke to Janine with update. She was aware that she was at [facility], and just came home on the , but did not know that she was admitted here. Indicated that [facility] ordered RN, P.T. Confirmed that patient will just need resumption order from here as well, and can add bath aide, since patient requested this. They have not yet resumed patient since she came home from [facility]. Veronica Colon RN/Lumber Sticker Discharge Planning/Care Management CM Discharge Assessment Start: 08/26/22 12:04 Freq: Status: Active Protocol: Document 08/26/22 12:04 (Rec: 08/26/22 12:06 [id number]) Discharge Planning Assessment Assigned Club Steward Veronica Colon RN/Lumber Sticker Advance Directives? Yes: Advance Directive Advance Directives on File No History Provided By Patient,Significant Other, Medical Record Household Members spouse Type of transporation used prior to Relies on Others admit Independent with ADL's Yes Is patient alert and oriented? Yes Needs Assistance With Bathing,Meal Prep,Home Chores / Shopping Caregiver for Another No Community Services used prior to Home Health Nurse admission: Comment O.T. is still in, spouse indicated that RN and P.T. completed, but will need to reinstate. DME Already Rented / Owned FWW / Walker,Oxygen Comment Has shower chair as well, home oxygen is through [employer] Comment medically and physically fragile. return home w/spouse, who is a retired Orthopedic PA-C Discharge Plan Home with Home Health Transportation Arrangement Spouse bedside and can provide transport home when stable Referrals Initiated None needed Additional Comment resumption of diane services , will need to reinstate HARSHAD P Josey Whiteboard Updated in Patient Room with Yes name and ext. # of Club Steward Review Status In Process Next Review Type Continued Stay Review
[2022-08-26] MEDS: ACETAMINOPHEN 325 MG TABLET 650 MG PO (12:19)
[2022-08-26] MEDS: KETOROLAC 30 MG/ML VIAL 15 MG IV ×2 (12:19→17:42)
--- NOTE | 2022-08-26 12:28 | PT-IP ANOTE ---
Per pt and nursing, pt is in a lot of pain. Pt rated pain 8-9/10 in R LQ/groin and not able to participate in PT at this time.
--- NOTE | 2022-08-26 12:55 | PC.NURSE ---
Day shift: Patient rates her pain 9/10 - acute and spasms in RLE and right lower quadrant of abdomen. At 1115 her temperature was 101.6 with increased pain. Notified MD Gilbert about pain and temperature. IV Torodol ordered and given by this RN. Patient reported mild pain relief.
[2022-08-26] MEDS: MAGNESIUM CHLORIDE 64 MG TABLET 128 MG PO (13:40)
--- NOTE | 2022-08-26 14:51 | PT-IP ANOTE ---
At start, pt was getting settled into a chair after having gotten out of bed, walking to use bedside commode, and having a sponge bath. Pt tired from activity and prefers not to have therapy since just becoming settle in chair. Evaluation held until tomorrow. Pt reporting pain under control with meds and pain now 2-3/, with activity 5-6. Nursing reported pt got out of bed and walked with FWW on own.
[2022-08-26 16:05] LABS: Bilirubin Urine UA NEGATIVE (NEGATIVE); Color Urine UA YELLOW; Glucose Urine UA NEGATIVE (Negative); Ketones Urine UA NEGATIVE (NEGATIVE); Leukocyte Esterase Urine UA 1+ (NEGATIVE); Nitrite Urine UA NEGATIVE (Negative); Occult Blood Urine UA NEGATIVE (Negative); Protein Urine UA NEGATIVE (Negative); Urobilinogen Urine UA 0.2 E.U./dL (0.2)
[2022-08-26 16:07] LABS: Appearance Urine UA Slightly Cloudy; pH Urine UA 5.5 (4.5-8.0)
[2022-08-26 16:11] LABS: Amorphous Sediment Urine 1+; Bacteria Urine Few (2-10); RBC Urine None Seen (0-5/HPF); Squamous Epithelial Cell Urine 1-5 /HPF (0-5/HPF); WBC Urine 5-10/HPF (0-5/HPF)
[2022-08-26 16:12] LABS: Culture Indicated Urine Specimen Cultured
[2022-08-26] MEDS: ATORVASTATIN 20 MG TABLET 40 MG PO (21:11)
[2022-08-26] MEDS: PRAMIPEXOLE 0.25 MG TABLET 0.5 MG PO (21:14)
[2022-08-26] MEDS: NORTRIPTYLINE HCL 25 MG CAPSULE PO (21:14)
[2022-08-26] MEDS: SENNOSIDES 8.6 MG TABLET 17.2 MG PO (21:14)
[2022-08-26] MEDS: FERROUS SULFATE 325 MG TABLET PO (21:14)
--- NOTE | 2022-08-26 21:56 | DI.ECHO.S_ITS ---
[facility]---------+ [facility] +---------+ : : [id number] : : : : [id number] : : : : Phone: [phone]+ Echocardiogram Report + + :Name: HOANG MURRAY Study Date: 08/26/2022 Height: 60 in : :[facility] ReadingLocation: [facility] Weight: 219 lb : : Gender: Female BSA: 1.9 m2 : :: 1950 Age: 72 yrs BP: 115/50 mmHg: :Reason For Study: Dyspnea : : Performed By: Piyush Martins : :Referring: ADITYA COLLADO : + + Interpretation Summary The left ventricle is normal in size. The left ventricle is hyperdynamic. The ejection fraction is estimated to be 75-80%. Diastolic function could not be accurately assessed due to confounding valvular disease. The right ventricle is mildly dilated. Right ventricular systolic function is mildly reduced. The interventricular septum is flattened, consistent with a right ventricular pressure/volume condition. The right ventricular systolic pressure is estimated to be at least 56 mmHg based on an estimated right atrial pressure of 3 mm Hg. The left atrium is severely dilated. The right atrium is mildly dilated. There is moderate to severe mitral stenosis. The mitral valve mean gradient is 10 mmHg. There is moderate to severe mitral annular calcification. There is mild aortic stenosis. The peak aortic velocity is 2.36 m/sec. The calculated aortic valve area is 1.8 cm2. There is no other significant valvular heart disease. The aortic root is normal size. Procedure: A two-dimensional transthoracic echocardiogram with color flow and Doppler was performed. The study quality was technically adequate. The study was done portably. Comparison is made with the echocardiogram of 10/19/2021. The patient was in sinus rhythm with heart rates between 85-94 bpm during the exam. The patient had occasional PACs during the exam. Left Ventricle: The left ventricle is normal in size. Left ventricular wall thickness is borderline increased. There is no ventricular septal defect visualized. The left ventricle is hyperdynamic. The ejection fraction is estimated to be 75-80%. The interventricular septum is flattened, consistent with a right ventricular pressure/volume condition. Diastolic function could not be accurately assessed due to confounding valvular disease. Right Ventricle: The right ventricle is mildly dilated. Right ventricular systolic function is mildly reduced. Atria: The left atrium is severely dilated. The right atrium is mildly dilated. There is no Doppler evidence for an interatrial shunt. Mitral Valve: The mitral valve leaflets are mildly calcified. There is moderate to severe mitral annular calcification. There is moderate to severe mitral stenosis. The mitral valve mean gradient is 10 mmHg. There is no mitral regurgitation noted. Aortic Valve: The aortic valve is trileaflet. The aortic valve is mildly calcified. There is mild aortic stenosis. The peak aortic velocity is 2.36 m/sec. The calculated aortic valve area is 1.8 cm2. No aortic regurgitation is present. Tricuspid Valve: The tricuspid valve is normal. There is trace tricuspid regurgitation. The right ventricular systolic pressure is estimated to be at least 56 mmHg based on an estimated right atrial pressure of 3 mm Hg. Pulmonic Valve: The pulmonic valve leaflets are thin and pliable; valve motion is normal. There is a trace or physiologic amount of pulmonic regurgitation. There is no other significant valvular heart disease. Great Vessels: The aortic root is normal size. The dimensions of the ascending aorta are normal. The pulmonary artery is normal size. The IVC is of normal diameter and collapses greater than 50% with a sniff. This suggests a low right atrial pressure of 3 mm Hg. Pericardium/ Pleura There is no pericardial effusion. There is no pleural effusion. MMode/2D Measurements & Calculations LVIDd: 4.3 cm LVOT diam: 1.9 cm LVIDs: 2.3 cm Ao root diam: 3.1 cm FS: 46.8 % asc Aorta Diam: 3.4 cm IVSd: 1.0 cm LVPWd: 1.1 cm LV gonsalves. diameter/BSA (cm/m^2): 2.2 LV sys. diameter/BSA (cm/m^2): 1.2 LA A2 area: 31.4 cm2 RA long axis: 6.6 cm LA A4 area: 32.3 cm2 RA area: 19.6 cm2 LA length (vol): 6.9 cm RA vol: 49.8 ml LA vol: 125.2 ml RA : 25.7 ml/m2 LA vol index: 64.5 ml/m2 IVC diam: 1.9 cm RVD1 (basal): 4.1 cm TAPSE: 2.0 cm Doppler Measurements & Calculations Ao V2 max: 236.2 cm/sec LVOT Max Conner: 130.8 cm/sec Ao V2 mean: 181.5 cm/sec LV V1 max P.8 mmHg Ao max P.3 mmHg LV V1 VTI: 25.2 cm Ao mean P.0 mmHg EAGLE(I,D): 1.8 cm2 Ao V2 VTI: 40.4 cm EAGLE(V,D): 1.6 cm2 sev ratio: 0.62 EAGLE indexed to BSA (cm^2/m^2): 0.92 Med Peak E' Conner: 4.2 cm/sec TR max conner: 362.5 cm/sec Lat Peak E' Conner: 6.4 cm/sec TR max P.6 mmHg MVA(VTI): 1.2 cm2 MV V2 mean: 155.5 cm/sec SV(LVOT): 72.4 ml MV mean P.3 mmHg MV V2 VTI: 59.5 cm Reading Physician:06:13 PM
[2022-08-27] VITALS (15 sets, daily range): BP systolic 119–143; BP diastolic 56–73; PULSE 83–94; RESP 16–18; TEMP 36.8–37.3; O2SAT 92–97
[2022-08-27] MEDS: KETOROLAC 30 MG/ML VIAL 15 MG IV ×2 (01:51→08:03)
--- NOTE | 2022-08-27 04:07 | PC.NURSE ---
Pt appears to be resting quietly through out noc. Some SOB noted w/excretion. CBG @ [facility] 107 Med for discomfort w/ toradol w/good relief. Call light w/in reach, bed alarm on for pt safety. Continue w/plan of care.
[2022-08-27 05:59] LABS: Add Manual Diff / Slide Review NO; Basophils Absolute Auto 0 /uL (0-100); Basophils Percent Auto 0.3 % (0-2); Eosinophils Absolute Auto 0 /uL (0-450); Hematocrit 25.6 % (36-46); Hemoglobin 8.7 g/dL (12.0-16.0); Lymphocytes Absolute Auto 1700 /uL (1100-4500); Lymphocytes Percent Auto 22.4 % (25-40); Mean Corpuscular HGB Conc 33.8 % (30-36); Mean Corpuscular Hemoglobin 28.5 PG (26-34); Mean Corpuscular Volume 84.4 fL (80-100); Monocytes Absolute Auto 900 /uL (0-900); Monocytes Percent Auto 11.6 % (3-14); Neutrophils Absolute Auto 5000 /uL (1500-7000); Neutrophils Percent Auto 65.7 % (50-75); Platelet Count 642 X10^3/uL (150-400); Red Blood Cell Count 3.04 X10^6/uL (4.0-5.2); Red Cell Distribution Width 22.4 % (11.6-14.8); White Blood Cell Count 7.6 X10^3/uL (4.5-11.0)
[2022-08-27 06:11] LABS: BUN Creatinine Ratio 23.5 (6-22); Blood Urea Nitrogen 20 mg/dL (7-17); Calcium 8.6 mg/dL (8.4-10.2); Carbon Dioxide 33 mmol/L (22-32); Chloride 94 mmol/L (98-107); Estimated Glomerular Filt Rate > 60 mL/min (>60); Glucose 118 mg/dL (80-110); HEMOLYSIS < 15 (0-50); Magnesium 1.6 mg/dL (1.6-2.3); Potassium 3.9 mmol/L (3.4-5.1); Sodium 132 mmol/L (137-145)
[2022-08-27 06:20] LABS: NT-proBNP (BNP-Adult 18+) 2050 pg/mL (<125)
[2022-08-27] MEDS: LEVOTHYROXINE 75 MCG TABLET PO (06:20)
[2022-08-27 07:37] LABS: Anisocytosis 2+; Hypochromasia 2+; Poikilocytosis 1+
[2022-08-27] MEDS: DULOXETINE 30 MG CAPSULE PO (08:14)
[2022-08-27 08:15] LABS: Labcorp Hemoglobin (Hb) A1c 6.8 % (4.8-5.6)
[2022-08-27] MEDS: DOCUSATE 100 MG CAPSULE PO ×2 (08:15→21:41)
[2022-08-27] MEDS: guaiFENesin ER 600 MG TAB 1200 MG PO ×2 (08:15→21:41)
[2022-08-27] MEDS: cloNIDine 0.1 MG TABLET 0.05 MG PO ×2 (08:15→21:40)
[2022-08-27] MEDS: PANTOPRAZOLE 40 MG VIAL 20 MG IV (08:16)
[2022-08-27] MEDS: FUROSEMIDE 20 MG/2 ML VIAL IV (08:19)
[2022-08-27] MEDS: INSULIN GLARGINE 100 UNIT/ML 3ML PEN 30 UNIT SUBCUT (08:28)
[2022-08-27] MEDS: ALBUTEROL/IPRATROPIUM 3 ML AMPUL INH ×4 (08:36→19:38)
[2022-08-27] MEDS: BUDESONIDE 0.5 MG/2 ML NEB INH ×2 (08:36→19:38)
[2022-08-27] MEDS: polyethylene glycoL 3350 17 GM POWD.PACK PO (08:37)
[2022-08-27] MEDS: OXYCODONE IR 5 MG TABLET 10 MG PO ×3 (09:07→22:28)
[2022-08-27] MEDS: fentaNYL 50 MCG/PATCH TOP (10:57)
[2022-08-27] MEDS: predniSONE 5 MG TABLET 10 MG PO (10:57)
[2022-08-27] MEDS: MAGNESIUM CHLORIDE 64 MG TABLET 128 MG PO (10:57)
[2022-08-27] MEDS: INSULIN LISPRO 100 UNIT/ML 3ML VIAL SUBCUT ×2 (11:08→16:34)
--- NOTE | 2022-08-27 11:37 | P.CONS_ITS ---
History of Present Illness Consult details Date Patient Seen: 08/27/22 Time Patient Seen: 11:37 Chief complaint: Bruising on Left Leg, Hx of DVT Reason for consult: abdominal pain Requesting provider: Sherry Charles Narrative: A cascade of events has occurred starting with PE, anticoagulation, retroperitoneal hematoma, abdominal pain and narcotic use. In addition, patient is on steroids and has received IVC filter for DVT treatment that lead to PE. Her abdominal pain started about 2 weeks ago during this above cascade. Right side worse than left, last BM 2 days ago, last colonoscopy 3 years ago. My read of her abd CT on 08/25 is a persistent LLQ retroperitoneal hematoma not actively bleeding, Severe constipation from the point of where the hematoma displaces the colon forward to her right colon. I do not appreciate significant thickness of right colonic wall. Meds Home Medications and Allergies Home Medications Medication Instructions Recorded Confirmed Type polyethylene glycol 3350 17 17 gm PO DAILY PRN Constipation ##0 06/06/17 08/25/22 History gram/dose oral powder (Miralax) albuterol sulfate 90 mcg/actuation 2 puff inhalation Q4-6H PRN 05/29/19 08/25/22 History aerosol inhaler Shortness Of Breath cholecalciferol (vitamin D3) 50 2,000 unit PO DAILY 05/29/19 08/25/22 History mcg (2,000 unit) tablet ferrous sulfate 325 mg (65 mg 325 mg PO BEDTIME 05/29/19 08/25/22 History iron) tablet tizanidine 4 mg capsule 4 mg PO QID PRN Muscle Spasm 05/29/19 08/25/22 History sodium chloride 3 % for 3 ml inhalation BID 06/05/19 08/25/22 History nebulization ondansetron HCl 4 mg tablet 4 mg PO Q8H PRN nausea and 10/06/19 08/25/22 Rx (Zofran) vomiting #30 tabs cetirizine 10 mg capsule (Zyrtec) 10 mg PO DAILY allergies 01/20/20 08/25/22 History montelukast 10 mg tablet 10 mg PO BEDTIME 01/20/20 08/25/22 History (Singulair) verio reflect glucometer #1 ea 01/28/20 08/25/22 Rx insulin syringe-needle U-100 0.5 #100 ea 03/30/20 08/25/22 Rx mL 31 gauge x 5/16 (BD Insulin Syringe Ultra-Fine) metformin 1,000 mg tablet 1,000 mg PO BID #180 tabs 09/03/20 08/25/22 Rx atorvastatin 40 mg tablet 40 mg PO BEDTIME 04/20/21 08/25/22 History epinephrine 0.3 mg/0.3 mL 0.3 mg IM Q5-15M PRN Allergic 04/20/21 08/25/22 History injection, auto-injector (EpiPen) Reaction insulin glargine 100 unit/mL 30 unit SUBCUT QAM 04/20/21 08/25/22 History subcutaneous solution insulin lispro 100 unit/mL 4 - 8 unit SUBCUT TID 04/20/21 08/25/22 History subcutaneous pen (Humalog KwikPen (U-100) Insulin) ipratropium 0.5 mg-albuterol 3 mg 3 ml inhalation BID 04/20/21 08/25/22 History (2.5 mg base)/3 mL nebulization soln levothyroxine 75 mcg tablet 75 mcg PO QAM 04/20/21 08/25/22 History nortriptyline 25 mg capsule 25 mg PO BEDTIME 04/20/21 08/25/22 History tiotropium bromide 18 mcg capsule 1 cap inhalation DAILY 04/20/21 08/25/22 History with inhalation device (Spiriva with HandiHaler) lansoprazole 15 mg capsule,delayed 30 mg PO BID 04/29/21 08/25/22 History release (Prevacid 24Hr) duloxetine 30 mg capsule,delayed 30 mg PO DAILY 06/28/21 08/25/22 History release fluticasone 500 mcg-salmeterol 50 1 inh inhalation BID 06/28/21 08/25/22 History mcg/dose blistr powdr for inhalation (Wixela Inhub) guaifenesin 1,200 mg tablet, 1,200 mg PO BID 06/28/21 08/25/22 History extended release 12 hr (Mucinex) oxycodone-acetaminophen 10 mg-325 1 tab PO Q4H PRN Pain (Scale Score 06/28/21 08/25/22 History mg tablet (Percocet) 4-6) pramipexole 0.5 mg tablet 0.5 mg PO BEDTIME 06/28/21 08/25/22 History fentanyl 25 mcg/hr transdermal 1 patch transdermal Q72H PRN pain 02/05/22 08/25/22 Rx patch (scale score 1-3) #5 ea docusate sodium 100 mg tablet 200 mg PO DAILY 04/24/22 08/25/22 History omega-3 fatty acids 1,000 mg PO DAILY 04/24/22 08/25/22 History benralizumab 30 mg/mL subcutaneous 30 mg SUBCUT Q8W 06/03/22 08/25/22 History syringe (Fasenra) bhcdrhxcec-kadljsvenpdup-vqfilwoh 1 tab PO Q6H PRN Migraine Headache 06/03/22 08/25/22 History 50 mg-325 mg-40 mg tablet clonidine HCl 0.1 mg tablet 0.05 mg PO BID 06/03/22 08/25/22 History oxycodone 5 mg capsule 15 mg PO Q6H PRN Pain (Scale Score 06/03/22 08/25/22 History 7-10) oxymetazoline 0.05 % nasal drops 1 drp intranasal BID PRN Congestion 06/03/22 08/25/22 History prednisone 5 mg tablet 5 mg PO DAILY 06/03/22 08/25/22 History Hizintra 15 g SUBCUT QWEEK 08/25/22 History fluticasone 500 mcg-salmeterol 50 1 inh inhalation Q12H 08/25/22 08/25/22 History mcg/dose blistr powdr for inhalation (Advair Diskus) furosemide 20 mg tablet 20 mg PO DAILY 08/25/22 08/25/22 History Allergies Allergy/AdvReac Type Severity Reaction Status Date / Time hydroxychloroquine Allergy Unknown Verified 08/14/22 13:56 [HYDROXYCHLOROQUINE] promethazine [From Phenergan] Allergy Agitated Verified 08/14/22 13:56 cefepime AdvReac Intermediate pruritis Verified 08/14/22 13:56 Review of Systems Review of Systems Narrative: Initial pain was of left leg. She also feels full easily. ROS: Yes All systems reviewed with the patient and are negative except as otherwise documented Exam Vital Signs (past 8 hours): - 08/27/22 04:43 08/27/22 04:00 08/27/22 08:00 Temperature 98.3 F 98.5 F Pulse Rate 94 H 90 Respiratory Rate 18 18 18 Blood Pressure 131/64 130/61 Pulse Oximetry 94 92 Oxygen Delivery Method Oxygen Flow Rate 3 08/27/22 08:42 08/27/22 08:43 Temperature Pulse Rate 88 Respiratory Rate 18 Blood Pressure Pulse Oximetry 97 96 Oxygen Delivery Method Nasal Cannula Oxygen Flow Rate 3 3 Oxygen Delivery Method Nasal Cannula Oxygen Flow Rate 3 Const General: cooperative and comfortable Nutritional Appearance: overweight HENKY Head: normocephalic and atraumatic Eyes General: appearance normal, both eyes and all related structures Sclera: sclerae normal Neck Neck: trachea midline Resp Effort & Inspection: normal respiratory effort and able to speak in complete sentences Other: nasal cannula O2. Cardio Rate: tachycardic Rhythm: regular rhythm GI Palpation: soft Other: obese, distended, RLQ tenderness to palpation. No acute abdomen. Skin General: atrophy Neuro General: patient alert, patient awake and patient oriented x3 Psych Mental Status: mental status grossly normal Judgment: judgment good Objective Labs 08/27/22 05:20 08/27/22 05:20 Labs: Laboratory Results - last 24 hr 08/26/22 08/26/22 08/26/22 07:15 11:15 15:44 WBC RBC Hgb Hct MCV MCH MCHC RDW Plt Count Neut % (Auto) Lymph % (Auto) [place] % (Auto) Eos % (Auto) Baso % (Auto) Neut # (Auto) Lymph # (Auto) [place] # (Auto) Eos # (Auto) Baso # (Auto) RBC Morphology Hypochromasia Poikilocytosis Anisocytosis Sodium Potassium Chloride Carbon Dioxide BUN Creatinine Estimated GFR BUN/Creatinine Ratio Glucose Hgb A1c (Ref Lab) 6.8 H Calcium Magnesium Troponin I < 0.012 NT-Pro-B Natriuret Pep Urine Color Yellow Urine Appearance Slightly cloudy Urine pH 5.5 Ur Specific [place] 1.010 Urine Protein Negative Urine Glucose (UA) Negative Urine Ketones Negative Urine Occult Blood Negative Urine Nitrate Negative Urine Bilirubin Negative Urine Urobilinogen 0.2 Ur Leukocyte Esterase 1+ H Urine RBC None seen Urine WBC 5-10/hpf H Ur Squamous Epith Cells 1-5 /hpf Amorphous Sediment 1+ Urine Bacteria Few (2-10) H Ur Culture Indicated? Specimen cultured 08/27/22 08/27/22 08/27/22 05:20 05:20 05:20 WBC 7.6 RBC 3.04 L Hgb 8.7 L Hct 25.6 L MCV 84.4 MCH 28.5 MCHC 33.8 RDW 22.4 H Plt Count 642 H Neut % (Auto) 65.7 Lymph % (Auto) 22.4 L [place] % (Auto) 11.6 Eos % (Auto) 0.0 L Baso % (Auto) 0.3 Neut # (Auto) 5000 Lymph # (Auto) 1700 [place] # (Auto) 900 Eos # (Auto) 0 Baso # (Auto) 0 RBC Morphology Not Reportable Hypochromasia 2+ H Poikilocytosis 1+ H Anisocytosis 2+ H Sodium 132 L Potassium 3.9 Chloride 94 L Carbon Dioxide 33 H BUN 20 H Creatinine 0.85 Estimated GFR > 60 BUN/Creatinine Ratio 23.5 H Glucose 118 H Hgb A1c (Ref Lab) Calcium 8.6 Magnesium Troponin I NT-Pro-B Natriuret Pep 2050 H Urine Color Urine Appearance Urine pH Ur Specific [place] Urine Protein Urine Glucose (UA) Urine Ketones Urine Occult Blood Urine Nitrate Urine Bilirubin Urine Urobilinogen Ur Leukocyte Esterase Urine RBC Urine WBC Ur Squamous Epith Cells Amorphous Sediment Urine Bacteria Ur Culture Indicated? 08/27/22 05:20 WBC RBC Hgb Hct MCV MCH MCHC RDW Plt Count Neut % (Auto) Lymph % (Auto) [place] % (Auto) Eos % (Auto) Baso % (Auto) Neut # (Auto) Lymph # (Auto) [place] # (Auto) Eos # (Auto) Baso # (Auto) RBC Morphology Hypochromasia Poikilocytosis Anisocytosis Sodium Potassium Chloride Carbon Dioxide BUN Creatinine Estimated GFR BUN/Creatinine Ratio Glucose Hgb A1c (Ref Lab) Calcium Magnesium 1.6 Troponin I NT-Pro-B Natriuret Pep Urine Color Urine Appearance Urine pH Ur Specific [place] Urine Protein Urine Glucose (UA) Urine Ketones Urine Occult Blood Urine Nitrate Urine Bilirubin Urine Urobilinogen Ur Leukocyte Esterase Urine RBC Urine WBC Ur Squamous Epith Cells Amorphous Sediment Urine Bacteria Ur Culture Indicated? 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 Osteopenia Pneumonia Pneumonia Recurrent sinusitis (~1970) Restless leg syndrome Shoulder pain (~03/2018) Sleep apnea Wears glasses Surgical History Anesthesia History of carpal tunnel release History of cataract removal with insertion of prosthetic lens (~2014) History of section History of laminectomy (~2002) History of spinal fusion (~2012) History of thumb surgery Family History Father Stroke Mother Hypertension Brother Cerebral aneurysm Prostate cancer Diabetes mellitus Hypertension Stroke Brother Arthritis Hyperlipidemia Hypertension Sister History of kidney cancer Hypertension Grandfather Cancer Grandmother Cancer Other Family history non-contributory Social History household members: spouse Tobacco & Substance Use Smoking Status: Never smoker alcohol intake: current Assessment & Plan Assessment & Plan narrative: Abdominal pain is likely related to the retroperitoneal hematoma in the LLQ which would also explain the initial leg pain. The displacement of colon forward is impacting the evacuation of stool. Plan: Starting with Mag citrate and Miralax for BM. She should also have colonoscopy as outpatient in the near future for completeness. Hematoma will eventually resolve on its own. COVID-19 COVID-19 status: Negative Time Spent With Patient Time with patient: 30 to 49 minutes with 50% spent counseling/coordinating care
[2022-08-27] MEDS: MAGNESIUM CITRATE 300 ML SOLUTION PO (12:04)
[2022-08-27] MEDS: CELECOXIB 200 MG CAPSULE PO ×2 (12:04→21:40)
--- NOTE | 2022-08-27 15:37 | P.PN_ITS ---
Subjective Subjective Interval history: Patient beginning to feel much better. Had a significant improvement in pain secondary to ketorolac IV treatment 15 mg q.6h. She has now been transitioned to Celebrex oral medication. Still a bit constipated and has been given medication for this. Appreciate Dr. Ha's consult. Exam Vital Signs (past 8 hours): - 08/27/22 08:00 08/27/22 08:42 08/27/22 08:43 Temperature 98.5 F Pulse Rate 90 88 Respiratory Rate 18 18 Blood Pressure 130/61 Pulse Oximetry 92 97 96 Oxygen Delivery Method Nasal Cannula Oxygen Flow Rate 3 3 3 08/27/22 11:50 08/27/22 13:00 08/27/22 15:23 Temperature 98.5 F Pulse Rate 87 91 H Respiratory Rate 18 18 Blood Pressure 142/68 H Pulse Oximetry 97 96 95 Oxygen Delivery Method Nasal Cannula Nasal Cannula Oxygen Flow Rate 3 3 2 Oxygen Delivery Method Nasal Cannula Oxygen Flow Rate 2 Narrative Exam Narrative: GENERAL: Alert and oriented x three, obese and in no acute medical distress. HEENT: Head normocephalic, atraumatic, EOMI, pupils reactive, face symmetric, moist mucous membranes, nasal cannula in place. NECK: Supple, full range of motion CARDIOVASCULAR: Regular rate and rhythm with normal heart sounds.? No JVD.? Patient has some swelling bilateral lower extremities that is decreased. She is some scant erythema on the anterior shins- which is her base line,? ecchymosis but no hematoma on her left posterior thigh and nontender. RESPIRATORY: Breath sounds equal bilaterally, no wheezes, but some minimal crackles at bases.? No tachypnea or accessory muscle use.? Patient speaks in full sentences. ABDOMEN: Soft, tender right lower quadrant.? Normoactive bowel sounds all 4 quadrants.? No guarding or rebound, rigidity, no mass : No CVA tenderness EXTREMITIES: Normal range of motion, no clubbing.? Bilateral lower extremity edema, mild.? Neurovascularly intact NEUROLOGICAL: Cranial nerves II through XII grossly intact.? Moving all extremities SKIN: Warm, dry, no petechiae, no rashes or lesions, with the exceptions noted above. Objective Labs 08/27/22 05:20 08/27/22 05:20 Labs: Laboratory Results - last 24 hr 08/26/22 08/26/22 08/27/22 07:15 15:44 05:20 WBC 7.6 RBC 3.04 L Hgb 8.7 L Hct 25.6 L MCV 84.4 MCH 28.5 MCHC 33.8 RDW 22.4 H Plt Count 642 H Neut % (Auto) 65.7 Lymph % (Auto) 22.4 L [place] % (Auto) 11.6 Eos % (Auto) 0.0 L Baso % (Auto) 0.3 Neut # (Auto) 5000 Lymph # (Auto) 1700 [place] # (Auto) 900 Eos # (Auto) 0 Baso # (Auto) 0 RBC Morphology Not Reportable Hypochromasia 2+ H Poikilocytosis 1+ H Anisocytosis 2+ H Sodium Potassium Chloride Carbon Dioxide BUN Creatinine Estimated GFR BUN/Creatinine Ratio Glucose Hgb A1c (Ref Lab) 6.8 H Calcium Magnesium NT-Pro-B Natriuret Pep Urine Color Yellow Urine Appearance Slightly cloudy Urine pH 5.5 Ur Specific [place] 1.010 Urine Protein Negative Urine Glucose (UA) Negative Urine Ketones Negative Urine Occult Blood Negative Urine Nitrate Negative Urine Bilirubin Negative Urine Urobilinogen 0.2 Ur Leukocyte Esterase 1+ H Urine RBC None seen Urine WBC 5-10/hpf H Ur Squamous Epith Cells 1-5 /hpf Amorphous Sediment 1+ Urine Bacteria Few (2-10) H Ur Culture Indicated? Specimen cultured 08/27/22 08/27/22 08/27/22 05:20 05:20 05:20 WBC RBC Hgb Hct MCV MCH MCHC RDW Plt Count Neut % (Auto) Lymph % (Auto) [place] % (Auto) Eos % (Auto) Baso % (Auto) Neut # (Auto) Lymph # (Auto) [place] # (Auto) Eos # (Auto) Baso # (Auto) RBC Morphology Hypochromasia Poikilocytosis Anisocytosis Sodium 132 L Potassium 3.9 Chloride 94 L Carbon Dioxide 33 H BUN 20 H Creatinine 0.85 Estimated GFR > 60 BUN/Creatinine Ratio 23.5 H Glucose 118 H Hgb A1c (Ref Lab) Calcium 8.6 Magnesium 1.6 NT-Pro-B Natriuret Pep 2050 H Urine Color Urine Appearance Urine pH Ur Specific [place] Urine Protein Urine Glucose (UA) Urine Ketones Urine Occult Blood Urine Nitrate Urine Bilirubin Urine Urobilinogen Ur Leukocyte Esterase Urine RBC Urine WBC Ur Squamous Epith Cells Amorphous Sediment Urine Bacteria Ur Culture Indicated? 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 Osteopenia Pneumonia Pneumonia Recurrent sinusitis (~1970) Restless leg syndrome Shoulder pain (~03/2018) Sleep apnea Wears glasses Surgical History Anesthesia History of carpal tunnel release History of cataract removal with insertion of prosthetic lens (~2014) History of section History of laminectomy (~2002) History of spinal fusion (~2012) History of thumb surgery Family History Father Stroke Mother Hypertension Brother Cerebral aneurysm Prostate cancer Diabetes mellitus Hypertension Stroke Brother Arthritis Hyperlipidemia Hypertension Sister History of kidney cancer Hypertension Grandfather Cancer Grandmother Cancer Other Family history non-contributory Social History household members: spouse Smoking Status: Never smoker alcohol intake: current Assessment & Plan Assessment & Plan narrative: # acute on chronic hypoxic respiratory failure in setting of asthma and bronchiectasis, small subsegmental emboli, acute, present on admission, still requiring oxygen supplementation but now at baseline. Acute phase has settled. -normally on 2-3L NC at home, currently on 3 L 94%, was requiring 5 L improved following Lasix? in ED. Currently on 6 liters/minute. -followed outpatient by Dr. Oscar pulmonology at [facility] -etiology likely due to fluid over load as she was off her lasix for a few days, although exacerbation may be from RLL subsegmental PEs, and mild bibasilar opacities questionable pneumonia versus atelectasis.? Currently not on antibiotics and trending labs. -has IVC filter in place she is not a candidate for anticoagulation. -patient has no white count on presentation, ordered procalcitonin which is pending today, sputum culture not treating with antibiotics at this time -sputum culture is still pending without collection yet -duonebs PRN, respiratory consult as needed, spirometry -prednisone -continue home singulair, Spiriva, advair # right lower quadrant abdominal pain, acute, present on admission -likely secondary to thickening/hyper enhancement at terminal ileum possible Crohn's disease -possible constipation -bowel management -Dr. Ha agreeing with constipation as a likely source of pain, medication to relieve constipation has been provided. -prednisone, Protonix, pain management -general surgery consult Dr. Ha -outpatient follow up with GI # abdominal hematoma, acute on chronic, present on admission -likely the bruising in the left thigh is secondary to the blood moving downward from the hematoma with gravity -general surgery consult Dr. Ha # hypomagnesemia -mag 1.5 previously, today normal at 1.6 -2g ordered. followup level pending -monitor and replete PRN, # history of PE and A-fib -IVC filter in place-no anticoagulation # diastolic heart failure with preserved ejection fraction, present on admission -2021 EF 60-65% -fluid restriction -echo ordered -daily weights -BNP beginning to trend downward.? Today is 2049. Provide continue oral furosemide treatment. Continue to follow # DM2 with associated hyperlipidemia -continue Lantus, medium dose sliding scale for coverage, admitted under diabetic protocol a.c. HS blood sugar checks -check A1c -reported at 6.8 -hold metformin -continue statin # RLS -continue home mirapex # neuropathy -continue cymbalta, nortriptyline and lyrica, tizanidine Expect discharge home tomorrow. Follow labs and clinically. Code status is DNR/DNI. COVID negative. DVT prophylaxis? SCD's only Proxy is has been Harjeet. Quality VTE Deep Vein Thrombosis/Pulmonary Embolism Present on Admission: No
[2022-08-27] MEDS: POTASSIUM CHLORIDE 20 MEQ/15 ML UDC PO (16:37)
[2022-08-27] MEDS: FUROSEMIDE 40 MG TABLET PO (16:37)
[2022-08-27] MEDS: PRAMIPEXOLE 0.25 MG TABLET 0.5 MG PO (21:39)
[2022-08-27] MEDS: FERROUS SULFATE 325 MG TABLET PO (21:41)
[2022-08-27] MEDS: NORTRIPTYLINE HCL 25 MG CAPSULE PO (21:41)
[2022-08-27] MEDS: ATORVASTATIN 20 MG TABLET 40 MG PO (21:41)
[2022-08-27] MEDS: SENNOSIDES 8.6 MG TABLET 17.2 MG PO (21:42)
[2022-08-27] MEDS: TIZANIDINE 4 MG TABLET PO (22:39)
[2022-08-28] VITALS (7 sets, daily range): BP systolic 142–164; BP diastolic 58–70; PULSE 86–89; RESP 15–19; TEMP 36.9–37.4; O2SAT 94–97
[2022-08-28] MEDS: OXYCODONE IR 5 MG TABLET 10 MG PO ×2 (06:15→12:31)
[2022-08-28] MEDS: PANTOPRAZOLE DR 20 MG TABLET PO (06:15)
[2022-08-28] MEDS: LEVOTHYROXINE 75 MCG TABLET PO (06:15)
[2022-08-28 07:08] LABS: Add Manual Diff / Slide Review NO; Basophils Absolute Auto 0 /uL (0-100); Basophils Percent Auto 0.3 % (0-2); Eosinophils Absolute Auto 0 /uL (0-450); Hematocrit 26.5 % (36-46); Hemoglobin 8.9 g/dL (12.0-16.0); Lymphocytes Absolute Auto 1400 /uL (1100-4500); Lymphocytes Percent Auto 17.1 % (25-40); Mean Corpuscular HGB Conc 33.4 % (30-36); Mean Corpuscular Hemoglobin 28.6 PG (26-34); Mean Corpuscular Volume 85.7 fL (80-100); Monocytes Absolute Auto 800 /uL (0-900); Monocytes Percent Auto 10.4 % (3-14); Neutrophils Absolute Auto 5700 /uL (1500-7000); Neutrophils Percent Auto 72.2 % (50-75); Platelet Count 621 X10^3/uL (150-400); Red Cell Distribution Width 23.3 % (11.6-14.8); White Blood Cell Count 7.9 X10^3/uL (4.5-11.0)
[2022-08-28 07:28] LABS: BUN Creatinine Ratio 29.2 (6-22); Blood Urea Nitrogen 21 mg/dL (7-17); Calcium 8.5 mg/dL (8.4-10.2); Carbon Dioxide 39 mmol/L (22-32); Chloride 95 mmol/L (98-107); Estimated Glomerular Filt Rate > 60 mL/min (>60); Glucose 119 mg/dL (80-110); HEMOLYSIS < 15 (0-50); Potassium 4.3 mmol/L (3.4-5.1); Sodium 132 mmol/L (137-145)
[2022-08-28 07:33] LABS: NT-proBNP (BNP-Adult 18+) 1560 pg/mL (<125)
[2022-08-28 07:52] LABS: Anisocytosis 2+; Hypochromasia 3+
[2022-08-28] MEDS: INSULIN LISPRO 100 UNIT/ML 3ML VIAL SUBCUT ×2 (08:16→12:42)
[2022-08-28] MEDS: ALBUTEROL/IPRATROPIUM 3 ML AMPUL INH ×2 (08:33→11:16)
[2022-08-28] MEDS: BUDESONIDE 0.5 MG/2 ML NEB INH (08:33)
--- NOTE | 2022-08-28 08:33 | PC.NURSE ---
Patient is on 4L of o2 sats in mid 90s. She is a shallow breather, lung sounds are clear upon auscultation. Blood sugar 131 and patient is eating her breakfast now.
[2022-08-28] MEDS: ALBUTEROL HFA MDI 60 PUFF/8 GM INHALER INH (09:10)
[2022-08-28] MEDS: INSULIN GLARGINE 100 UNIT/ML 3ML PEN 30 UNIT SUBCUT (09:10)
[2022-08-28] MEDS: predniSONE 5 MG TABLET 10 MG PO (09:11)
[2022-08-28] MEDS: DULOXETINE 30 MG CAPSULE PO (09:11)
[2022-08-28] MEDS: CELECOXIB 200 MG CAPSULE PO (09:11)
[2022-08-28] MEDS: guaiFENesin ER 600 MG TAB 1200 MG PO (09:11)
[2022-08-28] MEDS: cloNIDine 0.1 MG TABLET 0.05 MG PO (09:11)
[2022-08-28] MEDS: DOCUSATE 100 MG CAPSULE PO (09:12)
[2022-08-28] MEDS: POTASSIUM CHLORIDE 20 MEQ/15 ML UDC PO (09:12)
[2022-08-28] MEDS: FUROSEMIDE 40 MG TABLET PO (09:13)
--- NOTE | 2022-08-28 09:40 | P.DS_ITS ---
History of Present Illness History of Present Illness Date Patient Seen: 08/28/22 Chief complaint: Bruising on Left Leg, Hx of DVT Discharge Providers Provider Date of admission: 08/25/22 20:04 Discharge Date: 08/28/22 Primary care physician: Karin Porter MD Consults: 08/25/22 21:55 Consult to Dietitian, Adult Urgent Comment: Reason For Exam: BMI 42.8 08/25/22 22:04 Consult to Occupational Therapy Evaluate & Treat Comment: Physician Instructions: Evaluate and treat Consult to Physical Therapy Evaluate & Treat Comment: Physician Instructions: Evaluate and Treat 08/25/22 22:06 Consult to General Surgery Routine Comment: Consulting Provider: Tessa Ha Reason for consultation: Abdominal hematoma Has provider been notified: No 08/28/22 09:14 Consult to Home Health Routine Comment: add shower aid to current services. Reason For Exam: Resume Home Health services Discharge provider: Sherry Charles MD Summary Hospital Course Discharge Diagnosis: Acute on chronic hypoxic respiratory failure in setting of asthma and bronchiectasis, small subsegmental emboli, acute, present on admission Right lower quadrant abdominal pain, acute, present on admission Abdominal hematoma, acute on chronic, present on admission Hypomagnesemia History of PE and A-fib IVC filter in place Diastolic heart failure with preserved ejection fraction, present on admission DM2, insulin-dependent Hyperlipidemia Restless legs syndrome Neuropathy O2 dependency Constipation Other comorbidities/past medical history: NSTEMI Anemia Ankle pain Cervical spine disease Chronic back pain Colon polyps (~2015) Degenerative joint disease of spine (~2001) Eczema Fibromyalgia Foot pain Hypertension Hypothyroidism Migraines (~1964) 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 Osteopenia Pneumonia history Recurrent sinusitis (~1970) Shoulder pain (~03/2018) Sleep apnea Wears glasses GERD History of carpal tunnel release History of cataract removal with insertion of prosthetic lens (~2014) History of section History of laminectomy (~2002) History of spinal fusion (~2012) History of thumb surgery Hospital Course: Radha Zavaleta is a 72-year-old female with history significant for DVT, DCHF, at rial fibrillation, pulmonary emboli, NSTEMI, asthma, sleep apnea, hypothyroidism, diabetes, hypertension, dyslipidemia, fibromyalgia, GERD, dm 2, RLS, asthma bronchiolectasis,? acute on chronic respiratory failure on constant O2 2-3 L while at home. On August 15 and was found to have a retroperitoneal bleed secondary to significantly elevated INR while she was receiving Lovenox bridging to Coumadin for blood clots that occurred while anticoagulated on a DOAC.? Patient was transferred to [facility], she received 2 units of PRBCs, INR improved after vitamin K and Kcentra. She had an IVC filter placed, and was discharged August 23 to home.?She had persistent right-sided abdominal pain although her hematoma was on the left, takes oxycodone 15 mg increased from 10 mg, Tylenol 650 mg Nauzene 4 mg daily to control the pain, fentanyl patch which was increased from 25-50 mcg while in the hospital. ?Was tx w/cefepime x 5 days in hospital for pneumonia on the admission at [facility]. Patient presented to [facility] for persistent right-sided abdominal pain, increasing shortness of breath from her baseline, improving productive cough, and new bruising that is track down her left leg, and legs have increased swelling right more so than left..She was not anticoagulated due to the IVC filter placed. Patient required increased pain control and had a general surgery consult for the right lower quadrant pain. It was thought that the pain in the right lower quadrant related to constipation/gas inpatient was increase in her bowel routine. CT of the abdomen confirmed there was no indication of Crohn's disease as a cause of increased pain right lower quadrant. Dr. Ha's consultation, her read of the abd CT on 08/25 is a persistent LLQ retroperitoneal hematoma not actively bleeding, Severe constipation from the point of where the hematoma displaces the colon forward to her right colon. She did not appreciate significant thickness of right colonic wall. Patient gradually required less O2 supplementation and returned to her baseline status of 2-3 L per minute. Improved bowel routine and decrease the right lower quadrant pain and patient was discharged with the instructions of taking MiraLax 17 g p.o. daily a.m. and if no bowel movement during the day to take a 2nd dose of the MiraLax 17 g in the evening. This was discussed with Dr. Ha and she is in agreement. Status at Discharge Cognitive/behavioral status at discharge: oriented Functional status at discharge: independent ambulation Overall status at discharge: patient is progressing back to baseline Time Spent with Patient Time spent: Greater than 30 minutes Exam Vital Signs (past 8 hours): - 08/28/22 03:50 08/28/22 04:36 08/28/22 05:35 Temperature 99.4 F 99.4 F 99.4 F Pulse Rate 88 88 88 Respiratory Rate 18 19 15 Blood Pressure 142/58 H 142/58 H 142/58 H Pulse Oximetry 95 95 95 Oxygen Delivery Method Oxygen Flow Rate 4 4 4 Fraction of Inspired Oxygen 08/28/22 08:27 08/28/22 08:33 08/28/22 08:57 Temperature 98.4 F Pulse Rate 86 89 Respiratory Rate 18 16 Blood Pressure 164/70 H Pulse Oximetry 94 97 96 Oxygen Delivery Method Nasal Cannula Nasal Cannula Oxygen Flow Rate 4 3 0 Fraction of Inspired Oxygen 32 Fraction of Inspired Oxygen 32 SaO2/FiO2 Ratio 303 Oxygen Delivery Method Nasal Cannula Oxygen Flow Rate 0 Narrative Exam Narrative: GENERAL: Alert and oriented x three, obese and in no acute medical distress. HEENT: Head normocephalic, atraumatic, EOMI, pupils reactive, face symmetric, moist mucous membranes, nasal cannula in place. NECK: Supple, full range of motion CARDIOVASCULAR: Regular rate and rhythm with normal heart sounds.? No JVD.? Patient has some swelling bilateral lower extremities that is decreased.? She is some scant erythema on the anterior shins- which is her base line,? ecchymosis but no hematoma on her left posterior thigh and nontender. RESPIRATORY: Breath sounds equal bilaterally, no wheezes, but some minimal crackles at bases.? No tachypnea or accessory muscle use.? Patient speaks in full sentences. ABDOMEN: Soft, tender right lower quadrant.? Normoactive bowel sounds all 4 quadrants.? No guarding or rebound, rigidity, no mass : No CVA tenderness EXTREMITIES: Normal range of motion, no clubbing.? Bilateral lower extremity edema, mild.? Neurovascularly intact NEUROLOGICAL: Cranial nerves II through XII grossly intact.? Moving all extremities SKIN: Warm, dry, no petechiae, no rashes or lesions, with the exceptions noted above. Objective Labs 08/28/22 06:40 08/28/22 06:40 Labs: Laboratory Results - last 24 hr 08/28/22 08/28/22 08/28/22 06:40 06:40 06:40 WBC 7.9 RBC 3.10 L Hgb 8.9 L Hct 26.5 L MCV 85.7 MCH 28.6 MCHC 33.4 RDW 23.3 H Plt Count 621 H Neut % (Auto) 72.2 Lymph % (Auto) 17.1 L [place] % (Auto) 10.4 Eos % (Auto) 0.0 L Baso % (Auto) 0.3 Neut # (Auto) 5700 Lymph # (Auto) 1400 [place] # (Auto) 800 Eos # (Auto) 0 Baso # (Auto) 0 RBC Morphology Not Reportable Hypochromasia 3+ H Anisocytosis 2+ H Sodium 132 L Potassium 4.3 Chloride 95 L Carbon Dioxide 39 H BUN 21 H Creatinine 0.72 Estimated GFR > 60 BUN/Creatinine Ratio 29.2 H Glucose 119 H Calcium 8.5 Magnesium NT-Pro-B Natriuret Pep 1560 H 08/28/22 07:03 WBC RBC Hgb Hct MCV MCH MCHC RDW Plt Count Neut % (Auto) Lymph % (Auto) [place] % (Auto) Eos % (Auto) Baso % (Auto) Neut # (Auto) Lymph # (Auto) [place] # (Auto) Eos # (Auto) Baso # (Auto) RBC Morphology Hypochromasia Anisocytosis Sodium Potassium Chloride Carbon Dioxide BUN Creatinine Estimated GFR BUN/Creatinine Ratio Glucose Calcium Magnesium 2.0 NT-Pro-B Natriuret Pep [facility] Medical History Abnormal chest xray (~1979) Anemia Ankle pain Anticoagulated Asthma (~1959) Bronchiectasis (~2006) Cervical spine disease Chronic back pain Colon polyps (~2015) Degenerative joint disease of spine (~2001) Diabetes mellitus, type II (~2009) Eczema Fibromyalgia Foot pain Hoarseness Hyperlipidemia Hypertension Hypothyroidism Migraines (~1964) 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 Osteopenia Pneumonia Pneumonia Recurrent sinusitis (~1970) Restless leg syndrome Shoulder pain (~03/2018) Sleep apnea Wears glasses Surgical History Anesthesia History of carpal tunnel release History of cataract removal with insertion of prosthetic lens (~2014) History of section History of laminectomy (~2002) History of spinal fusion (~2012) History of thumb surgery Family History Father Stroke Mother Hypertension Brother Cerebral aneurysm Prostate cancer Diabetes mellitus Hypertension Stroke Brother Arthritis Hyperlipidemia Hypertension Sister History of kidney cancer Hypertension Grandfather Cancer Grandmother Cancer Other Family history non-contributory Social History household members: spouse Smoking Status: Never smoker alcohol intake: current Discharge Plan Discharge Plan Patient Disposition: Home Provider Discharge Comment: Make sure you take the MiraLax 17 g p.o. daily in the morning (medication already have at home), may take a 2nd time in the evening if no bowel movement during the day. Discharge orders & Medications Prescriptions: New calcium carbonate 200 mg calcium (500 mg) Tablet,Chewable 1,000 mg PO Q4HR PRN (Reason: Dyspepsia) Qty: 60 0RF celecoxib [Celebrex] 200 mg Capsule 200 mg PO BID Qty: 60 0RF docusate sodium 100 mg Capsule 100 mg PO BID Qty: 60 0RF furosemide 40 mg Tablet 40 mg PO 0800,1700 Qty: 60 0RF alum-mag hydroxide-simeth [Mag-Al Plus] 200-200-20 mg/5 mL Suspension 30 ml PO Q6HR PRN (Reason: Dyspepsia) Qty: 355 0RF sennosides [senna] 8.6 mg Tablet 17.2 mg PO BEDTIME Qty: 60 0RF potassium chloride 20 mEq/15 mL Liquid 20 meq PO BIDWM Qty: 250 0RF pantoprazole 20 mg Tablet,Delayed Release (Dr/Ec) 20 mg PO 0600 Qty: 30 0RF Continued polyethylene glycol 3350 [Miralax] 119 GM powder 17 gm PO DAILY PRN (Reason: Constipation) Qty: 0 ondansetron HCl [Zofran] 4 mg tablet 4 mg PO Q8H PRN (Reason: nausea and vomiting) Qty: 30 1RF (DME) insulin syringe-needle U-100 [BD Insulin Syringe Ultra-Fine] 0.5 mL 31 gauge x 5/16 syringe See Rx Instructions .ROUTE .MEDSUPPLY Qty: 100 1RF Rx Instructions: Use once a day as directed metformin 1,000 mg tablet 1,000 mg PO BID Qty: 180 0RF (DME) verio reflect glucometer Qty: 1 0RF Rx Instructions: As directed ferrous sulfate 325 mg (65 mg iron) tablet 325 mg PO BEDTIME tizanidine 4 mg capsule 4 mg PO QID PRN (Reason: Muscle Spasm) cholecalciferol (vitamin D3) 2,000 unit tablet 2,000 unit PO DAILY albuterol sulfate 90 mcg/actuation HFA aerosol inhaler 2 puff INHALATION Q4-6H PRN (Reason: Shortness Of Breath) lansoprazole [Prevacid 24Hr] 15 mg Capsule,Delayed Release(Dr/Ec) 30 mg PO BID fentanyl 25 mcg/hr patch 72 hour 1 patch transdermal Q72H PRN (Reason: pain (scale score 1-3)) Qty: 5 0RF Patient Comments: placed today at home omega-3 fatty acids Capsule 1,000 mg PO DAILY docusate sodium 100 mg Tablet 200 mg PO DAILY fluticasone propion-salmeterol [Advair Diskus] 500-50 mcg/dose Blister With Device 1 inh INHALATION Q12H furosemide 20 mg Tablet 20 mg PO DAILY Hizintra 15 g auto-injector 15 g SUBCUT QWEEK sodium chloride 3 % Solution For Nebulization 3 ml INHALATION BID Rx Instructions: use w/ nebulizer 2 x daily montelukast [Singulair] 10 mg Tablet 10 mg PO BEDTIME Zyrtec 10 mg Capsule 10 mg PO DAILY atorvastatin 40 mg Tablet 40 mg PO BEDTIME ipratropium-albuterol 0.5 mg-3 mg(2.5 mg base)/3 mL Solution For Nebulization 3 ml INHALATION BID Rx Instructions: and every 4 hours as needed levothyroxine 75 mcg Tablet 75 mcg PO QAM nortriptyline 25 mg Capsule 25 mg PO BEDTIME epinephrine [EpiPen] 0.3 mg/0.3 mL Auto-Injector 0.3 mg IM Q5-15M PRN (Reason: Allergic Reaction) Rx Instructions: do not exceed 3 doses per episode Spiriva with HandiHaler 18 mcg Capsule, W/Inhalation Device 1 cap INHALATION DAILY Rx Instructions: puncture 1 cap using device; one dose = 2 inhalations insulin glargine 100 unit/mL solution 30 unit SUBCUT QAM insulin lispro [Humalog KwikPen Insulin] 100 unit/mL insulin pen 4 - 8 unit SUBCUT TID pramipexole 0.5 mg tablet 0.5 mg PO BEDTIME fluticasone propion-salmeterol [Wixela Inhub] 500-50 mcg/dose Blister With Device 1 inh INHALATION BID duloxetine 30 mg Capsule,Delayed Release(Dr/Ec) 30 mg PO DAILY oxycodone-acetaminophen [Percocet] 10-325 mg Tablet 1 tab PO Q4H PRN (Reason: Pain (Scale Score 4-6)) Mucinex 1,200 mg Tablet Extended Release 12hr 1,200 mg PO BID clonidine HCl 0.1 mg tablet 0.05 mg PO BID prednisone 5 mg tablet 5 mg PO DAILY bodcrcftji-yebytscdtblsi-asbo 50-325-40 mg Tablet 1 tab PO Q6H PRN (Reason: Migraine Headache) oxycodone 5 mg Capsule 15 mg PO Q6H PRN (Reason: Pain (Scale Score 7-10)) oxymetazoline 0.05 % Drops 1 drp INTRANASAL BID PRN (Reason: Congestion) Fasenra 30 mg/mL Syringe 30 mg SUBCUT Q8W Follow up/Referrals: Tessa Ha MD [Physician] - (needs outpatient colonoscopy to evaluate right colon) Karin Porter MD [Primary Care Provider] - Activity Restrictions/Additional Instructions: Follow up for recheck in 24-48 hours. Continue your home medications as prescribed. You can increase your oxycodone to 15mg every 3 hours but continue your tylenol and tizanadine as scheduled before. Take steroids once daily until gone. Please return if you are feeling worse, increasing shortness of breath, new chest pain, increasing swelling of your extremities, worsening abdominal pain, black or bloody stools, lightheadedness or passing out. Visit Report/Discharge Packet Instructions: Heart Failure, DI for Heart Failure, DI for Hematoma (Bruise), DI for Shortness of Breath, How to Manage Shortness of Breath Stand Alone Forms: Patient Portal/API, Stroke Signs & Symptoms Discharge Data Primary Care Provider: Karin Porter Quality VTE Deep Vein Thrombosis/Pulmonary Embolism Present on Admission: No
--- NOTE | 2022-08-28 10:45 | OT.IPNOTE ---
Discussed case with P.T. Pt is at her baseline when P.T. assessed. Per P.T. no OT needs at this time. Will discharge the order.
--- NOTE | 2022-08-28 11:53 | PT-IP ANOTE ---
Received PT orders and completed chart review. Noted pt had a discharge order. Pt is familiar to this PT from multiple prior admissions. Met with pt and her spouse who state no recent changes in pt's mobility status. PT assisted pt out of bed and to the shower using FWW and 3L/min O2 via NC. No more than SBA was required for mobility. Pt is mobilizing consistent with her baseline. She has orders for home PT. No acute PT needs are identified. Pt will be discharged from PT caseload.
== END 2022-08-28 13:50 | disposition home health service (06) | DRG 175 ==
LOC: ED 15:18 → AC 08-26 10:47
PROVIDERS: Neuromusculoskeletal Medicine, Sports Medicine; Admitting Provider Nurse Practitioner Family; Emergency Provider Emergency Medicine; Family Provider Internal Medicine Infectious Disease; PCP Internal Medicine; Referring Provider Emergency Medicine; Visit Provider Nurse Practitioner Family
DX: I26.94 Multiple subsegmental thrombotic pulmonary emboli without acute cor pulmonale (principal); I50.31 Acute diastolic (congestive) heart failure; J96.21 Acute and chronic respiratory failure with hypoxia; K66.1 Hemoperitoneum; J45.909 Unspecified asthma, uncomplicated; J47.9 Bronchiectasis, uncomplicated; E83.42 Hypomagnesemia; E78.5 Hyperlipidemia, unspecified; G25.81 Restless legs syndrome; E11.40 Type 2 diabetes mellitus with diabetic neuropathy, unspecified; K59.00 Constipation, unspecified; D64.9 Anemia, unspecified; E03.9 Hypothyroidism, unspecified; I11.0 Hypertensive heart disease with heart failure; Z20.822 Contact with and (suspected) exposure to COVID-19; Z79.84 Long term (current) use of oral hypoglycemic drugs; Z66 Do not resuscitate; Z99.81 Dependence on supplemental oxygen; Z79.4 Long term (current) use of insulin; Z86.79 Personal history of other diseases of the circulatory system
CPT/HCPCS: 36415; 71045; 71275; 74177; 80048; 80051; 80053; 81001; 82550; 82962; 83036; 83690; 83735; 83880; 84145; 84443; 84484; 85025; 85610; 85730; 87040; 87086; 87635; 93005; 93306; 94640; 94760; 96374; 99232; 99284; 99285; C9803; A9270; C9113; J1170; J1885; J1940; J2930; J3475; J7613; Q9967

== ENCOUNTER → 2022-10-03 17:17 | Outpatient (CLI) | payer OTHER, SELFPAY ==
[2022-06-07 07:30] VITALS: PULSE 84; RESP 20; O2SAT 99
[2022-08-25 22:00] VITALS: BMI 42.7
[2022-10-03 18:18] LABS: Hematocrit 33.2 % (36-46); Hemoglobin 10.9 g/dL (12.0-16.0); Mean Corpuscular HGB Conc 32.8 % (30-36); Mean Corpuscular Hemoglobin 28.4 PG (26-34); Mean Corpuscular Volume 86.5 fL (80-100); Platelet Count 448 X10^3/uL (150-400); Red Blood Cell Count 3.83 X10^6/uL (4.0-5.2); Red Cell Distribution Width 19.8 % (11.6-14.8)
[2022-10-03 18:35] LABS: Alanine Aminotransferase 15 IU/L (<35); Albumin 3.7 g/dL (3.5-5.0); Alkaline Phosphatase 85 U/L (38-126); Aspartate Aminotransferase 25 IU/L (14-36); BUN Creatinine Ratio 20.5 (6-22); Bilirubin Total 0.4 mg/dL (0.2-1.3); Blood Urea Nitrogen 16 mg/dL (7-17); Carbon Dioxide 31 mmol/L (22-32); Chloride 99 mmol/L (98-107); Estimated Glomerular Filt Rate > 60 mL/min (>60); Globulin 3.6 g/dL (1.7-4.1); Glucose 116 mg/dL (80-110); HEMOLYSIS < 15 (0-50); Magnesium 1.6 mg/dL (1.6-2.3); Sodium 136 mmol/L (137-145); Total Protein 7.3 g/dL (6.3-8.2)
[2022-10-03 18:44] LABS: NT-proBNP (BNP-Adult 18+) 2290 pg/mL (<125)
== END ==
PROVIDERS: Family Provider Internal Medicine Infectious Disease; PCP Internal Medicine; Referring Provider Nurse Practitioner; Visit Provider Nurse Practitioner
DX: I48.0 Paroxysmal atrial fibrillation (principal); I50.33 Acute on chronic diastolic (congestive) heart failure
CPT/HCPCS: 36415; 80053; 83735; 83880; 85027

== ENCOUNTER 2022-10-13 09:51 | Inpatient (IN) | payer OTHER, SELFPAY ==
[2022-06-07 07:30] VITALS: PULSE 84; RESP 20; O2SAT 99
[2022-08-25 22:00] VITALS: BMI 42.7
[2022-10-13] VITALS (31 sets, daily range): BP systolic 139–198; BP diastolic 61–96; PULSE 94–113; RESP 20–40; TEMP 37.2–38.9; O2SAT 87–96; BMI 41.4
--- NOTE | 2022-10-13 10:01 | ED_ITS ---
HPI - Weakness General Chief complaint: Shortness of Breath/Dyspnea Stated complaint: Chronic Pneumonia Time Seen by Provider: 10/13/22 09:52 History of Present Illness HPI Narrative: Patient is a 72-year-old female with history significant for DVT, CHF, pulmonary emboli, NSTEMI, asthma, sleep apnea, hypothyroidism, diabetes, hypertension, dyslipidemia, fibromyalgia and GERD on 5L O2 via nasal cannula at all times.? Presents today with fever and cough. She frequently has pneumonia UTIs and sepsis. She also receives IVIG infusions q3wks, She was last admitted to the hospital August 25 through the for respiratory failure asthma and bronchiectasis. At that time she was found to have small subsegmental emboli but was not a candidate for anticoagulation due to an abdominal hematoma she has an IVC filter in place. She presents today with fever shortness of breath which started last night. Her last Tylenol was around 3:00 p.m.. Increasing shortness of breath today. No chest pain. She is able to answer some questions currently. Related Data Home Medications Medication Instructions Recorded Confirmed polyethylene glycol 3350 17 17 gm PO DAILY PRN Constipation ##0 06/06/17 10/13/22 gram/dose oral powder (Miralax) albuterol sulfate 90 mcg/actuation 2 puff inhalation Q4-6H PRN 05/29/19 10/13/22 aerosol inhaler Shortness Of Breath cholecalciferol (vitamin D3) 50 2,000 unit PO DAILY 05/29/19 10/13/22 mcg (2,000 unit) tablet ferrous sulfate 325 mg (65 mg 325 mg PO BEDTIME 05/29/19 10/13/22 iron) tablet tizanidine 4 mg capsule 4 mg PO QID PRN Muscle Spasm 05/29/19 10/13/22 sodium chloride 3 % for 3 ml inhalation BID 06/05/19 10/13/22 nebulization cetirizine 10 mg capsule (Zyrtec) 10 mg PO DAILY allergies 01/20/20 10/13/22 montelukast 10 mg tablet 10 mg PO BEDTIME 01/20/20 10/13/22 (Singulair) atorvastatin 40 mg tablet 40 mg PO BEDTIME 04/20/21 10/13/22 epinephrine 0.3 mg/0.3 mL 0.3 mg IM Q5-15M PRN Allergic 04/20/21 10/13/22 injection, auto-injector (EpiPen) Reaction insulin glargine 100 unit/mL 30 unit SUBCUT QAM 04/20/21 10/13/22 subcutaneous solution insulin lispro 100 unit/mL 4 - 8 unit SUBCUT TID 04/20/21 10/13/22 subcutaneous pen (Humalog KwikPen (U-100) Insulin) ipratropium 0.5 mg-albuterol 3 mg 3 ml inhalation BID 04/20/21 10/13/22 (2.5 mg base)/3 mL nebulization soln levothyroxine 75 mcg tablet 75 mcg PO QAM 04/20/21 10/13/22 nortriptyline 25 mg capsule 25 mg PO BEDTIME 04/20/21 10/13/22 tiotropium bromide 18 mcg capsule 1 cap inhalation DAILY 04/20/21 10/13/22 with inhalation device (Spiriva with HandiHaler) lansoprazole 15 mg capsule,delayed 30 mg PO BID 04/29/21 10/13/22 release (Prevacid 24Hr) duloxetine 30 mg capsule,delayed 30 mg PO DAILY 06/28/21 10/13/22 release fluticasone 500 mcg-salmeterol 50 1 inh inhalation BID 06/28/21 10/13/22 mcg/dose blistr powdr for inhalation (Wixela Inhub) guaifenesin 1,200 mg tablet, 1,200 mg PO BID 06/28/21 10/13/22 extended release 12 hr (Mucinex) oxycodone-acetaminophen 10 mg-325 1 tab PO Q4H PRN Pain (Scale Score 06/28/21 10/13/22 mg tablet (Percocet) 4-6) pramipexole 0.5 mg tablet 0.5 mg PO BEDTIME 06/28/21 10/13/22 omega-3 fatty acids 1,000 mg PO DAILY 04/24/22 10/13/22 benralizumab 30 mg/mL subcutaneous 30 mg SUBCUT Q8W 06/03/22 10/13/22 syringe (Fasenra) [id number] 1 tab PO Q6H PRN Migraine Headache 06/03/22 10/13/22 50 mg-325 mg-40 mg tablet clonidine HCl 0.1 mg tablet 0.05 mg PO BID 06/03/22 10/13/22 oxycodone 5 mg capsule 15 mg PO Q6H PRN Pain (Scale Score 06/03/22 10/13/22 7-10) oxymetazoline 0.05 % nasal drops 1 drp intranasal BID PRN Congestion 06/03/22 10/13/22 prednisone 5 mg tablet 5 mg PO DAILY 06/03/22 10/13/22 Hizintra 15 g SUBCUT QWEEK 08/25/22 10/13/22 fluticasone 500 mcg-salmeterol 50 1 inh inhalation Q12H 08/25/22 10/13/22 mcg/dose blistr powdr for inhalation (Advair Diskus) fentanyl 12 mcg/hr transdermal 12 mcg transdermal SEEINSTR 10/13/22 10/13/22 patch warfarin 1 mg tablet 1 mg PO DAILY 10/13/22 10/13/22 Previous Rx's Medication Instructions Recorded ondansetron HCl 4 mg tablet 4 mg PO Q8H PRN nausea and 10/06/19 (Zofran) vomiting #30 tabs verio reflect glucometer #1 ea 01/28/20 insulin syringe-needle U-100 0.5 #100 ea 03/30/20 mL 31 gauge x 5/16 (BD Insulin Syringe Ultra-Fine) metformin 1,000 mg tablet 1,000 mg PO BID #180 tabs 09/03/20 fentanyl 25 mcg/hr transdermal 1 patch transdermal Q72H PRN pain 02/05/22 patch (scale score 1-3) #5 ea aluminum-mag hydroxide-simethicone 30 ml PO Q6HR PRN Dyspepsia #355 mL 08/28/22 200 mg-200 mg-20 mg/5 mL oral susp (Mag-Al Plus) calcium carbonate 200 mg calcium 1,000 mg PO Q4HR PRN Dyspepsia #60 08/28/22 (500 mg) chewable tablet tabs docusate sodium 100 mg capsule 100 mg PO BID #60 caps 08/28/22 furosemide 40 mg tablet 40 mg PO 0800,1700 #60 tabs 08/28/22 potassium chloride 20 mEq/15 mL 20 meq (15 mL) PO BIDWM #250 mL 08/28/22 oral liquid sennosides 8.6 mg tablet (senna) 17.2 mg PO BEDTIME #60 tabs 08/28/22 Allergies Allergy/AdvReac Type Severity Reaction Status Date / Time hydroxychloroquine Allergy Unknown Verified 09/14/22 14:35 [HYDROXYCHLOROQUINE] cefepime AdvReac Intermediate pruritis Verified 09/14/22 14:35 promethazine [From Phenergan] AdvReac Agitated Verified 10/13/22 14:35 Review of Systems Review of Systems ROS Unobtainable: All systems reviewed & are unremarkable except as noted in HPI and below Patient History Medical History Abnormal chest xray (~1979) Anemia Ankle pain Anticoagulated Asthma (~1959) Bronchiectasis (~2006) Cervical spine disease Chronic back pain Colon polyps (~2015) Degenerative joint disease of spine (~2001) Diabetes mellitus, type II (~2009) Eczema Fibromyalgia Foot pain Hoarseness Hyperlipidemia Hypertension Hypothyroidism Migraines (~1964) 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 Osteopenia Pneumonia Pneumonia Recurrent sinusitis (~1970) Restless leg syndrome Shoulder pain (~03/2018) Sleep apnea Wears glasses Surgical History Anesthesia History of carpal tunnel release History of cataract removal with insertion of prosthetic lens (~2014) History of section History of laminectomy (~2002) History of spinal fusion (~2012) History of thumb surgery Family History Father Stroke Mother Hypertension Brother Cerebral aneurysm Prostate cancer Diabetes mellitus Hypertension Stroke Brother Arthritis Hyperlipidemia Hypertension Sister History of kidney cancer Hypertension Grandfather Cancer Grandmother Cancer Other Family history non-contributory Social History marital status: household members: spouse lives independently: Yes occupational status: previously employed Smoking Status: Never smoker alcohol intake: current substance use type: does not use Smoking Status: Never smoker alcohol intake frequency: holidays/special occasions only Substance Use Type: does not use Exam Initial Vital Signs Initial Vital Signs: Vital Signs Pulse Rate 106 H 10/13/22 09:59 Pulse Oximetry 90 L 10/13/22 09:59 GENERAL: Alert chronically ill 72-year-old female appears unwell in [id number] respiratory distress HEENT: Head atraumatic,EOMI, pupils reactive, face symmetric, moist mucous membranes CARDIOVASCULAR: Regular rate and rhythm without murmurs, rubs or gallops. RESPIRATORY: Coarse breath sounds bilaterally mild tachypnea ABDOMEN: Soft, nontender. Normoactive bowel sounds all 4 quadrants. No guarding or rebound. EXTREMITIES: Normal range of motion, no clubbing or edema. Neurovascularly intact NEUROLOGICAL: Alert able to answer questions SKIN: Warm, dry, no laceration, no petechiae, no rashes or lesions. Course Orders Ordered: ED Orders 10/13/22 10:05 XR chest 1V Stat 10/13/22 10:20 Complete Blood Count AUTO DIFF Stat Comprehensive Metabolic Panel Stat Lactate (Lactic Acid) Stat NT-proBNP (BNP-Adult 18+) Stat PTT Partial Thromboplastin Luke Stat Procalcitonin Stat Prothrombin Time INR Stat Troponin & CK Cardiac Panel Stat 10/13/22 10:25 Respiratory Panel (Film Array) Stat 10/13/22 11:34 Blood Culture Stat 10/13/22 11:42 ABG [Arterial Blood Gas] Stat 10/13/22 12:15 ABG [Arterial Blood Gas] Stat 10/13/22 12:44 Urinalysis and Microscopic Stat Acetaminophen (Acetaminophen 325 Mg Tablet) 650 mg PO Q6H PRN PRN Reason: Fever/Mild Pain (1-3) Last Admin: 10/13/22 13:49 Dose: 650 mg Documented By: KATJA Acetaminophen/Butalbital/Caffeine (Butalb/Apap/Caffeine 50/325/40 Tablet) 1 each PO Q6H PRN PRN Reason: Migraine Headache Albuterol/Ipratropium (Albuterol/Ipratropium 3 Ml Ampul) 3 ml INH BID [facility] Atorvastatin Calcium (Atorvastatin 20 Mg Tablet) 40 mg PO BEDTIME CARMELO Clonidine HCl (Clonidine 0.1 Mg Tablet) 0.05 mg PO BID [facility] Dextrose (Dextrose 50 % In Water 25 Gm/50 Ml Syringe) 25 gm IV PRN PRN PRN Reason: Hypoglycemia Diphenhydramine HCl (Diphenhydramine 50 Mg/Ml Vial) 25 mg IV Q6HR PRN PRN Reason: Itching Docusate Sodium (Docusate 100 Mg Capsule) 100 mg PO BID [facility] Duloxetine HCl (Duloxetine 30 Mg Capsule) 30 mg PO DAILY [facility] Fentanyl (Fentanyl 12 Mcg/Patch) 12 mcg TOP Q72H [facility] Fentanyl (Fentanyl 25 Mcg/Patch) 25 mcg TOP Q72H [facility] Ferrous Sulfate (Ferrous Sulfate 325 Mg Tablet) 325 mg PO BEDTIME [facility] Furosemide (Furosemide 40 Mg Tablet) 40 mg PO 0800,1700 [facility] Last Admin: 10/13/22 17:30 Dose: 40 mg Documented By: KATJA Guaifenesin (Guaifenesin Er 600 Mg Tab) 1,200 mg PO BID [facility] Azithromycin 500 mg/ Dextrose 250 mls @ 250 mls/hr IV Q24H [facility] Stop: 10/15/22 13:59 Last Admin: 10/13/22 14:27 Dose: 250 mls/hr Documented By: KATJA Cefepime HCl 2 gm/ Sodium (Chloride) 100 mls @ 200 mls/hr IV Q12H [facility] Last Admin: 10/13/22 14:26 Dose: 200 mls/hr Documented By: KATJA Vancomycin HCl (Vancomycin) 1,250 mg in 250 mls @ 250 mls/hr IV Q12H [facility] Insulin Glargine (Insulin Glargine 100 Unit/Ml 3ml Pen) 30 unit SUBCUT 0800 [facility] Insulin Human Lispro (Insulin Lispro 100 Unit/Ml 3ml Vial) 0 unit SUBCUT ACHS [facility]; Protocol Last Admin: 10/13/22 17:30 Dose: 1 unit Documented By: KATJA Co-signed By: SAMMY Levothyroxine Sodium (Levothyroxine 75 Mcg Tablet) 75 mcg PO DAILY@0600 [facility] Loratadine (Loratadine 10 Mg Tablet) 10 mg PO DAILY [facility] Melatonin (Melatonin 3 Mg Tablet) 6 mg PO BEDTIME PRN PRN Reason: Insomnia Montelukast Sodium (Montelukast 10 Mg Tablet) 10 mg PO BEDTIME [facility] Naloxone HCl (Naloxone 0.4 Mg/Ml Vial) 0.2 mg IV Q2MIN PRN PRN Reason: Opiate Reversal Nortriptyline HCl (Nortriptyline Hcl 25 Mg Capsule) 25 mg PO BEDTIME [facility] Oxycodone HCl (Oxycodone Ir 5 Mg Tablet) 15 mg PO Q6H PRN PRN Reason: Pain (Scale Score 7-10) Pantoprazole Sodium (Pantoprazole Dr 40 Mg Tablet) 40 mg PO BID [facility] Polyethylene Glycol (Polyethylene Glycol 3350 17 Gm Powd.Pack) 17 gm PO DAILY PRN PRN Reason: Constipation Potassium Chloride (Potassium Chloride 20 Meq/15 Ml Udc) 20 meq PO BIDWM [facility] Last Admin: 10/13/22 17:30 Dose: 20 meq Documented By: KATJA Pramipexole Dihydrochloride (Pramipexole 0.25 Mg Tablet) 0.5 mg PO BEDTIME [facility] Sennosides (Sennosides 8.6 Mg Tablet) 8.6 mg PO BID PRN PRN Reason: Constipation Sennosides (Sennosides 8.6 Mg Tablet) 17.2 mg PO BEDTIME [facility] Tizanidine HCl (Tizanidine 4 Mg Tablet) 4 mg PO QID PRN PRN Reason: Muscle Spasm Vancomycin HCl (Vancomycin Trough) 1 request [facility] 1030 [facility] Stop: 10/15/22 10:31 Vancomycin HCl (Vancomycin Peak) 1 request [facility] 1300 [facility] Stop: 10/15/22 13:01 Warfarin Sodium (Warfarin 1 Mg Tablet) 1 mg PO DAILY@1700 [facility] Last Admin: 10/13/22 17:58 Dose: 1 mg Documented By: KATJA Discontinued Medications Albuterol/Ipratropium (Albuterol/Ipratropium 3 Ml Ampul) 3 ml INH NOW ONE Stop: 10/13/22 10:06 Last Admin: 10/13/22 10:12 Dose: 3 ml Documented By: SOPHIA Furosemide (Furosemide 40 Mg/4 Ml Vial) 40 mg IV NOW ONE Stop: 10/13/22 11:19 Last Admin: 10/13/22 11:30 Dose: 40 mg Documented By: Sodium Chloride (Normal Saline 0.9%) 1,000 mls @ 200 mls/hr IV CONT [facility] Piperacillin Sod/Tazobactam (Sod 4.5 gm/ Sodium Chloride) 100 mls @ 200 mls/hr IV NOW ONE Stop: 10/13/22 11:19 Last Admin: 10/13/22 11:36 Dose: 200 mls/hr Documented By: Vancomycin HCl/Dextrose (Vancomycin) 1,500 mg in 300 mls @ 200 mls/hr IV NOW ONE Stop: 10/13/22 12:47 Last Admin: 10/13/22 11:36 Dose: 200 mls/hr Documented By: Magnesium Chloride (Magnesium Chloride 64 Mg Tablet) 128 mg PO NOW ONE Stop: 10/13/22 14:35 Last Admin: 10/13/22 15:06 Dose: 128 mg Documented By: KATJA Warfarin Sodium (Warfarin 5 Mg Tablet) 2.5 mg PO DAILY@1700 CARMELO Vital Signs Vital signs: Vital Signs - 8 hr 10/13/22 10:30 10/13/22 10:35 10/13/22 10:35 Pulse Rate 101 H 101 H Respiratory Rate 35 H 34 H Blood Pressure 165/83 H Pulse Oximetry 93 96 Oxygen Delivery Method Nasal Cannula Nasal Cannula Oxygen Flow Rate 6 6 10/13/22 11:00 10/13/22 11:01 10/13/22 11:01 Pulse Rate 102 H 101 H Respiratory Rate 34 H 33 H Blood Pressure 192/92 H Pulse Oximetry 96 95 Oxygen Delivery Method Oxygen Flow Rate 10/13/22 11:30 10/13/22 11:31 10/13/22 11:31 Pulse Rate 103 H 104 H Respiratory Rate 34 H 38 H Blood Pressure 169/96 H Pulse Oximetry 95 94 Oxygen Delivery Method Oxygen Flow Rate 10/13/22 12:00 10/13/22 12:00 Pulse Rate 103 H Respiratory Rate 38 H Blood Pressure 191/93 H Pulse Oximetry 95 Oxygen Delivery Method Oxygen Flow Rate MDM - Weakness Lab Data 10/13/22 10:20 10/13/22 10:20 Labs: Lab Results 10/13/22 10/13/22 10/13/22 Range/Units 10:20 10:20 10:20 WBC 15.4 H (4.5-11.0) X10^3/uL RBC 4.01 (4.0-5.2) X10^6/uL Hgb 11.3 L (12.0-16.0) g/dL Hct 34.4 L (36-46) % MCV 85.8 (80-100) fL MCH 28.0 (26-34) PG MCHC 32.7 (30-36) % RDW 19.2 H (11.6-14.8) % Plt Count 412 H (150-400) X10^3/uL Neut % (Auto) 86.4 H (50-75) % Lymph % (Auto) 6.2 L (25-40) % Garfield % (Auto) 6.6 (3-14) % Eos % (Auto) 0.0 L (2-4) % Baso % (Auto) 0.8 (0-2) % Neut # (Auto) 27560 H (6893-3269) /uL Lymph # (Auto) 900 L (1892-4915) /uL Garfield # (Auto) 1000 H (0-900) /uL Eos # (Auto) 0 (0-450) /uL Baso # (Auto) 100 (0-100) /uL PT 30.0 H (10.1-12.7) SECONDS INR 2.6 H (0.9-1.3) APTT (26-36) SECONDS ABG pH (7.35-7.45) ABG pCO2 (35-45) mmHg ABG pO2 (80-100) mmHg ABG HCO3 (23-27) mmol/L ABG Total CO2 (23-27) mmol/L ABG O2 Saturation (95-100) % ABG Base Excess (-2-3) mmol/L FiO2 Sodium 136 L (137-145) mmol/L Potassium 3.7 (3.4-5.1) mmol/L Chloride 98 (98-107) mmol/L Carbon Dioxide 31 (22-32) mmol/L BUN 13 (7-17) mg/dL Creatinine 0.67 (0.52-1.04) mg/dL Estimated GFR > 60 (>60) mL/min BUN/Creatinine Ratio 19.4 (6-22) Glucose 129 H (80-110) mg/dL Lactate (0.7-2.1) mmol/L Calcium 9.1 (8.4-10.2) mg/dL Magnesium (1.6-2.3) mg/dL Total Bilirubin 0.8 (0.2-1.3) mg/dL AST 24 (14-36) IU/L ALT 17 (<35) IU/L Alkaline Phosphatase 87 (38-126) U/L Total Creatine Kinase 38 (30-135) U/L Troponin I 0.027 (0.01-0.034) ng/mL NT-Pro-B Natriuret Pep 3730 H (<125) pg/mL Total Protein 7.8 (6.3-8.2) g/dL Albumin 3.8 (3.5-5.0) g/dL Globulin 4.0 (1.7-4.1) g/dL Albumin/Globulin Ratio 1.0 (1.0-2.8) Procalcitonin 0.09 (<0.5) ng/mL Chlamy pneumoniae PCR (Not Detect) Adenovirus (PCR) (Not Detect) B. pertussis DNA (PCR) (Not Detecte) B.parapertussis DNA PCR (Not Detecte) Coronavirus OC43 (PCR) (Not Detect) Coronavirus HKU1 (PCR) (Not Detect) Coronavirus 229E (PCR) (Not Detect) SARS-CoV-2 (PCR) (Not Detecte) Coronavirus NL63 (PCR) (Not Detect) Human Metapneumovir PCR (Not Detect) Influenza Type A (PCR) (Not Detect) Influenza Type B (PCR) (Not Detect) M. pneumoniae (PCR) (Not Detect) Parainfluenza 1 (PCR) (Not Detect) Parainfluenza 2 (PCR) (Not Detect) Parainfluenza 3 (PCR) (Not Detect) Parainfluenza 4 (PCR) (Not Detect) RSV (PCR) (Not Detect) Entero/Rhino (PCR) (Not Detect) 10/13/22 10/13/22 10/13/22 Range/Units 10:20 10:20 10:20 WBC (4.5-11.0) X10^3/uL RBC (4.0-5.2) X10^6/uL Hgb (12.0-16.0) g/dL Hct (36-46) % MCV (80-100) fL MCH (26-34) PG MCHC (30-36) % RDW (11.6-14.8) % Plt Count (150-400) X10^3/uL Neut % (Auto) (50-75) % Lymph % (Auto) (25-40) % Garfield % (Auto) (3-14) % Eos % (Auto) (2-4) % Baso % (Auto) (0-2) % Neut # (Auto) (5537-9368) /uL Lymph # (Auto) (8825-0625) /uL Garfield # (Auto) (0-900) /uL Eos # (Auto) (0-450) /uL Baso # (Auto) (0-100) /uL PT (10.1-12.7) SECONDS INR (0.9-1.3) APTT 45 H (26-36) SECONDS ABG pH (7.35-7.45) ABG pCO2 (35-45) mmHg ABG pO2 (80-100) mmHg ABG HCO3 (23-27) mmol/L ABG Total CO2 (23-27) mmol/L ABG O2 Saturation (95-100) % ABG Base Excess (-2-3) mmol/L FiO2 Sodium (137-145) mmol/L Potassium (3.4-5.1) mmol/L Chloride (98-107) mmol/L Carbon Dioxide (22-32) mmol/L BUN (7-17) mg/dL Creatinine (0.52-1.04) mg/dL Estimated GFR (>60) mL/min BUN/Creatinine Ratio (6-22) Glucose (80-110) mg/dL Lactate 1.8 (0.7-2.1) mmol/L Calcium (8.4-10.2) mg/dL Magnesium 1.7 (1.6-2.3) mg/dL Total Bilirubin (0.2-1.3) mg/dL AST (14-36) IU/L ALT (<35) IU/L Alkaline Phosphatase (38-126) U/L Total Creatine Kinase (30-135) U/L Troponin I (0.01-0.034) ng/mL NT-Pro-B Natriuret Pep (<125) pg/mL Total Protein (6.3-8.2) g/dL Albumin (3.5-5.0) g/dL Globulin (1.7-4.1) g/dL Albumin/Globulin Ratio (1.0-2.8) Procalcitonin (<0.5) ng/mL Chlamy pneumoniae PCR (Not Detect) Adenovirus (PCR) (Not Detect) B. pertussis DNA (PCR) (Not Detecte) B.parapertussis DNA PCR (Not Detecte) Coronavirus OC43 (PCR) (Not Detect) Coronavirus HKU1 (PCR) (Not Detect) Coronavirus 229E (PCR) (Not Detect) SARS-CoV-2 (PCR) (Not Detecte) Coronavirus NL63 (PCR) (Not Detect) Human Metapneumovir PCR (Not Detect) Influenza Type A (PCR) (Not Detect) Influenza Type B (PCR) (Not Detect) M. pneumoniae (PCR) (Not Detect) Parainfluenza 1 (PCR) (Not Detect) Parainfluenza 2 (PCR) (Not Detect) Parainfluenza 3 (PCR) (Not Detect) Parainfluenza 4 (PCR) (Not Detect) RSV (PCR) (Not Detect) Entero/Rhino (PCR) (Not Detect) 10/13/22 10/13/22 Range/Units 10:25 12:15 WBC (4.5-11.0) X10^3/uL RBC (4.0-5.2) X10^6/uL Hgb (12.0-16.0) g/dL Hct (36-46) % MCV (80-100) fL MCH (26-34) PG MCHC (30-36) % RDW (11.6-14.8) % Plt Count (150-400) X10^3/uL Neut % (Auto) (50-75) % Lymph % (Auto) (25-40) % Garfield % (Auto) (3-14) % Eos % (Auto) (2-4) % Baso % (Auto) (0-2) % Neut # (Auto) (2757-4032) /uL Lymph # (Auto) (6395-5289) /uL Garfield # (Auto) (0-900) /uL Eos # (Auto) (0-450) /uL Baso # (Auto) (0-100) /uL PT (10.1-12.7) SECONDS INR (0.9-1.3) APTT (26-36) SECONDS ABG pH 7.51 H (7.35-7.45) ABG pCO2 37.8 (35-45) mmHg ABG pO2 53 L (80-100) mmHg ABG HCO3 30 H (23-27) mmol/L ABG Total CO2 31 H (23-27) mmol/L ABG O2 Saturation 90 L (95-100) % ABG Base Excess 7.0 H (-2-3) mmol/L FiO2 45 Sodium (137-145) mmol/L Potassium (3.4-5.1) mmol/L Chloride (98-107) mmol/L Carbon Dioxide (22-32) mmol/L BUN (7-17) mg/dL Creatinine (0.52-1.04) mg/dL Estimated GFR (>60) mL/min BUN/Creatinine Ratio (6-22) Glucose (80-110) mg/dL Lactate (0.7-2.1) mmol/L Calcium (8.4-10.2) mg/dL Magnesium (1.6-2.3) mg/dL Total Bilirubin (0.2-1.3) mg/dL AST (14-36) IU/L ALT (<35) IU/L Alkaline Phosphatase (38-126) U/L Total Creatine Kinase (30-135) U/L Troponin I (0.01-0.034) ng/mL NT-Pro-B Natriuret Pep (<125) pg/mL Total Protein (6.3-8.2) g/dL Albumin (3.5-5.0) g/dL Globulin (1.7-4.1) g/dL Albumin/Globulin Ratio (1.0-2.8) Procalcitonin (<0.5) ng/mL Chlamy pneumoniae PCR Not detected (Not Detect) Adenovirus (PCR) Not detected (Not Detect) B. pertussis DNA (PCR) Not detected (Not Detecte) B.parapertussis DNA PCR Not detected (Not Detecte) Coronavirus OC43 (PCR) Not detected (Not Detect) Coronavirus HKU1 (PCR) Not detected (Not Detect) Coronavirus 229E (PCR) Not detected (Not Detect) SARS-CoV-2 (PCR) Not detected (Not Detecte) Coronavirus NL63 (PCR) Not detected (Not Detect) Human Metapneumovir PCR Not detected (Not Detect) Influenza Type A (PCR) Not detected (Not Detect) Influenza Type B (PCR) Not detected (Not Detect) M. pneumoniae (PCR) Not detected (Not Detect) Parainfluenza 1 (PCR) Not detected (Not Detect) Parainfluenza 2 (PCR) Not detected (Not Detect) Parainfluenza 3 (PCR) Not detected (Not Detect) Parainfluenza 4 (PCR) Not detected (Not Detect) RSV (PCR) Not detected (Not Detect) Entero/Rhino (PCR) Not detected (Not Detect) Imaging Data Chest x-ray: Radiologist Impression: PROCEDURE:? XR CHEST 1V ? INDICATIONS:? hypoxia ? TECHNIQUE:? One view of the chest was acquired.? ? COMPARISON:? [facility], CR, XR CHEST 1V, 08/25/2022, 12:30. ? FINDINGS:? ? Surgical changes and devices:? None.? ? Lungs and pleura:? Patchy bilateral infiltrates.? No pleural effusions or pneumothorax.? ? Mediastinum:? Mediastinal contours appear normal.? Heart size is normal.? ? Bones and chest wall:? No suspicious bony lesions.? Overlying soft tissues appear unremarkable.? ? IMPRESSION:? Patchy bilateral pneumonia. ? Comment: Progress films are recommended until clear. ? ? Dictated by: Ryan Rolle M.D. on 10/13/2022 at 11:44 ECG Data Interpretation: Normal sinus rhythm rate 104 OR interval [address] changes similar to p revious EKGs or 49 MDM Narrative Medical decision making narrative: Patient 72-year-old female chronically ill frequent episodes of sepsis chronic respiratory failure presenting today with of fever weakness x-ray shows patchy pneumonia leukocytosis of 15, lactate 1.8- procalcitonin though high suspicion for infection based on history. She is given Zosyn and vancomycin. BNP is also noted to be mildly elevated 3700 previously 22,000 possibly touch of would overload she is given Lasix. She is a negative troponin without any EKG changes. She is requiring 5-6 L of nasal cannula ABG confirms hypoxia on 5 L with a PaO2 of 53. Patient is hemodynamically stable without significant hypotension. Not requiring IV fluids. Dr. Downing updated patient's symptoms test results and kindly accepts Discharge Plan Departure Patient Disposition: Admitted As Inpatient Clinical Impression: Pneumonia Admit Date/Time: 10/13/22 12:20 Admit Provider: Wade Downing
--- NOTE | 2022-10-13 10:05 | DI.RAD.S_ITS ---
PROCEDURE: XR CHEST 1V INDICATIONS: hypoxia TECHNIQUE: One view of the chest was acquired. COMPARISON: [facility], CR, XR CHEST 1V, 08/25/2022, 12:30. FINDINGS: Surgical changes and devices: None. Lungs and pleura: Patchy bilateral infiltrates. No pleural effusions or pneumothorax. Mediastinum: Mediastinal contours appear normal. Heart size is normal. Bones and chest wall: No suspicious bony lesions. Overlying soft tissues appear unremarkable. IMPRESSION: Patchy bilateral pneumonia. Comment: Progress films are recommended until clear. Dictated by: Ryan Rolle M.D. on 10/13/2022 at 11:44 Approved by: Ryan Rolle M.D. on 10/13/2022 at 11:44
[2022-10-13] MEDS: ALBUTEROL/IPRATROPIUM 3 ML AMPUL INH ×2 (10:12→22:31)
[2022-10-13 10:52] LABS: Add Manual Diff / Slide Review NO; Basophils Absolute Auto 100 /uL (0-100); Basophils Percent Auto 0.8 % (0-2); Eosinophils Absolute Auto 0 /uL (0-450); Hematocrit 34.4 % (36-46); Hemoglobin 11.3 g/dL (12.0-16.0); Lymphocytes Absolute Auto 900 /uL (1100-4500); Lymphocytes Percent Auto 6.2 % (25-40); Mean Corpuscular HGB Conc 32.7 % (30-36); Mean Corpuscular Volume 85.8 fL (80-100); Monocytes Absolute Auto 1000 /uL (0-900); Monocytes Percent Auto 6.6 % (3-14); Neutrophils Absolute Auto 13300 /uL (1500-7000); Neutrophils Percent Auto 86.4 % (50-75); Platelet Count 412 X10^3/uL (150-400); Red Blood Cell Count 4.01 X10^6/uL (4.0-5.2); Red Cell Distribution Width 19.2 % (11.6-14.8); White Blood Cell Count 15.4 X10^3/uL (4.5-11.0)
[2022-10-13 10:55] LABS: INR 2.6 (0.9-1.3)
[2022-10-13 10:56] LABS: HEMOLYSIS 17 (0-50)
[2022-10-13 10:59] LABS: Lactate (Lactic Acid) 1.8 mmol/L (0.7-2.1)
[2022-10-13 11:01] LABS: Alanine Aminotransferase 17 IU/L (<35); Albumin 3.8 g/dL (3.5-5.0); Alkaline Phosphatase 87 U/L (38-126); Aspartate Aminotransferase 24 IU/L (14-36); BUN Creatinine Ratio 19.4 (6-22); Bilirubin Total 0.8 mg/dL (0.2-1.3); Blood Urea Nitrogen 13 mg/dL (7-17); Calcium 9.1 mg/dL (8.4-10.2); Carbon Dioxide 31 mmol/L (22-32); Chloride 98 mmol/L (98-107); Creatine Kinase 38 U/L (30-135); Estimated Glomerular Filt Rate > 60 mL/min (>60); Glucose 129 mg/dL (80-110); Potassium 3.7 mmol/L (3.4-5.1); Sodium 136 mmol/L (137-145); Total Protein 7.8 g/dL (6.3-8.2)
[2022-10-13 11:08] LABS: PTT Partial Thromboplastin Tim 45 SECONDS (26-36)
[2022-10-13 11:15] LABS: NT-proBNP (BNP-Adult 18+) 3730 pg/mL (<125); Troponin I 0.027 ng/mL (0.01-0.034)
[2022-10-13 11:19] LABS: Procalcitonin 0.09 ng/mL (<0.5)
[2022-10-13] MEDS: FUROSEMIDE 40 MG/4 ML VIAL IV (11:30)
[2022-10-13] MEDS: PIPERACILLIN/TAZO 4.5 GM in SODIUM CHLORIDE 0.9% 100 ML IV (11:36)
[2022-10-13] MEDS: VANCOMYCIN 1,500 MG/300 ML PIGGYBACK 200 MG IV (11:36)
[2022-10-13 12:09] LABS: Adenovirus Not Detected (Not Detect); B. parapertussis Not Detected (Not Detecte); Bordetella pertussis Not Detected (Not Detecte); Chlamydophila pneumoniae Not Detected (Not Detect); Coronavirus 229E Not Detected (Not Detect); Coronavirus HKU1 Not Detected (Not Detect); Coronavirus NL 63 Not Detected (Not Detect); Coronavirus OC43 Not Detected (Not Detect); Human Metapneumovirus Not Detected (Not Detect); Human Rhinovirus/Enterovirus Not Detected (Not Detect); Influenza A Not Detected (Not Detect); Influenza B Not Detected (Not Detect); Mycoplasma pneumoniae Not Detected (Not Detect); Parainfluenza Virus 1 Not Detected (Not Detect); Parainfluenza Virus 2 Not Detected (Not Detect); Parainfluenza Virus 3 Not Detected (Not Detect); Parainfluenza Virus 4 Not Detected (Not Detect); Respiratory Syncytial Virus Not Detected (Not Detect); SARS- CoV-2 Not Detected (Not Detecte)
--- NOTE | 2022-10-13 12:24 | P.HP_ITS ---
History of Present Illness History of Present Illness Date Patient Seen: 10/13/22 Time Patient Seen: 16:00 Chief complaint: Chronic Pneumonia Narrative: Radha Zavaleta is a 71-year-old female with a history of asthma, bronchiectasis with multiple previous pseudomonal, stenotrophomonas and MRSA pneumonias on chronic azithro, chronic hypoxic resp failure on 5L NC, CVID on q3w IVIG infusions and prednisone, A-fib not on anticaog due to hematoma, , NSTEMI in January 2022, LORENE, DM2, asthma, chronic hip and back pain on fentanyl patch, hypothyroidism, hypertension and hyperlipidemia who presents with recurrent PNA. Patient's is providing history as patient is somnolent. He states that she developed a progressively productive cough of brown sputum the past 3 days and had a fever up to 100.3F last night. She has had multiple admissions in the past for pneumonias due to her CVID. She is followed by pulmonology, pain medicine, allergy/immunology, and infectious disease. In the ED patient was satting 90% on her baseline 5-6L NC so was put on HFNC. CXR shows bilateral pneumonia so vanc and zosyn ordered. [facility] Medical History Abnormal chest xray (~1979) Anemia Ankle pain Anticoagulated Asthma (~1959) Bronchiectasis (~2006) Cervical spine disease Chronic back pain Colon polyps (~2015) Degenerative joint disease of spine (~2001) Diabetes mellitus, type II (~2009) Eczema Fibromyalgia Foot pain Hoarseness Hyperlipidemia Hypertension Hypothyroidism Migraines (~1964) 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 Osteopenia Pneumonia Pneumonia Recurrent sinusitis (~1970) Restless leg syndrome Shoulder pain (~03/2018) Sleep apnea Wears glasses Surgical History Anesthesia History of carpal tunnel release History of cataract removal with insertion of prosthetic lens (~2014) History of section History of laminectomy (~2002) History of spinal fusion (~2012) History of thumb surgery Family History Father Stroke Mother Hypertension Brother Cerebral aneurysm Prostate cancer Diabetes mellitus Hypertension Stroke Brother Arthritis Hyperlipidemia Hypertension Sister History of kidney cancer Hypertension Grandfather Cancer Grandmother Cancer Other Family history non-contributory Social History marital status: household members: spouse lives independently: Yes occupational status: previously employed Smoking Status: Never smoker alcohol intake: current substance use type: does not use Meds Home Medications and Allergies Home Medications Medication Instructions Recorded Confirmed Type polyethylene glycol 3350 17 17 gm PO DAILY PRN Constipation ##0 06/06/17 10/13/22 History gram/dose oral powder (Miralax) albuterol sulfate 90 mcg/actuation 2 puff inhalation Q4-6H PRN 05/29/19 10/13/22 History aerosol inhaler Shortness Of Breath cholecalciferol (vitamin D3) 50 2,000 unit PO DAILY 05/29/19 10/13/22 History mcg (2,000 unit) tablet ferrous sulfate 325 mg (65 mg 325 mg PO BEDTIME 05/29/19 10/13/22 History iron) tablet tizanidine 4 mg capsule 4 mg PO QID PRN Muscle Spasm 05/29/19 10/13/22 History sodium chloride 3 % for 3 ml inhalation BID 06/05/19 10/13/22 History nebulization ondansetron HCl 4 mg tablet 4 mg PO Q8H PRN nausea and 10/06/19 10/13/22 Rx (Zofran) vomiting #30 tabs cetirizine 10 mg capsule (Zyrtec) 10 mg PO DAILY allergies 01/20/20 10/13/22 History montelukast 10 mg tablet 10 mg PO BEDTIME 01/20/20 10/13/22 History (Singulair) verio reflect glucometer #1 ea 01/28/20 10/13/22 Rx insulin syringe-needle U-100 0.5 #100 ea 03/30/20 10/13/22 Rx mL 31 gauge x 5/16 (BD Insulin Syringe Ultra-Fine) metformin 1,000 mg tablet 1,000 mg PO BID #180 tabs 09/03/20 10/13/22 Rx atorvastatin 40 mg tablet 40 mg PO BEDTIME 04/20/21 10/13/22 History epinephrine 0.3 mg/0.3 mL 0.3 mg IM Q5-15M PRN Allergic 04/20/21 10/13/22 His tory injection, auto-injector (EpiPen) Reaction insulin glargine 100 unit/mL 30 unit SUBCUT QAM 04/20/21 10/13/22 History subcutaneous solution insulin lispro 100 unit/mL 4 - 8 unit SUBCUT TID 04/20/21 10/13/22 History subcutaneous pen (Humalog KwikPen (U-100) Insulin) ipratropium 0.5 mg-albuterol 3 mg 3 ml inhalation BID 04/20/21 10/13/22 History (2.5 mg base)/3 mL nebulization soln levothyroxine 75 mcg tablet 75 mcg PO QAM 04/20/21 10/13/22 History nortriptyline 25 mg capsule 25 mg PO BEDTIME 04/20/21 10/13/22 History tiotropium bromide 18 mcg capsule 1 cap inhalation DAILY 04/20/21 10/13/22 History with inhalation device (Spiriva with HandiHaler) lansoprazole 15 mg capsule,delayed 30 mg PO BID 04/29/21 10/13/22 History release (Prevacid 24Hr) duloxetine 30 mg capsule,delayed 30 mg PO DAILY 06/28/21 10/13/22 History release fluticasone 500 mcg-salmeterol 50 1 inh inhalation BID 06/28/21 10/13/22 History mcg/dose blistr powdr for inhalation (Wixela Inhub) guaifenesin 1,200 mg tablet, 1,200 mg PO BID 06/28/21 10/13/22 History extended release 12 hr (Mucinex) oxycodone-acetaminophen 10 mg-325 1 tab PO Q4H PRN Pain (Scale Score 06/28/21 10/13/22 History mg tablet (Percocet) 4-6) pramipexole 0.5 mg tablet 0.5 mg PO BEDTIME 06/28/21 10/13/22 History fentanyl 25 mcg/hr transdermal 1 patch transdermal Q72H PRN pain 02/05/22 10/13/22 Rx patch (scale score 1-3) #5 ea omega-3 fatty acids 1,000 mg PO DAILY 04/24/22 10/13/22 History benralizumab 30 mg/mL subcutaneous 30 mg SUBCUT Q8W 06/03/22 10/13/22 History syringe (Fasenra) [id number] 1 tab PO Q6H PRN Migraine Headache 06/03/22 10/13/22 History 50 mg-325 mg-40 mg tablet clonidine HCl 0.1 mg tablet 0.05 mg PO BID 06/03/22 10/13/22 History oxycodone 5 mg capsule 15 mg PO Q6H PRN Pain (Scale Score 06/03/22 10/13/22 History 7-10) oxymetazoline 0.05 % nasal drops 1 drp intranasal BID PRN Congestion 06/03/22 10/13/22 History prednisone 5 mg tablet 5 mg PO DAILY 06/03/22 10/13/22 History Hizintra 15 g SUBCUT QWEEK 08/25/22 10/13/22 History fluticasone 500 mcg-salmeterol 50 1 inh inhalation Q12H 08/25/22 10/13/22 History mcg/dose blistr powdr for inhalation (Advair Diskus) aluminum-mag hydroxide-simethicone 30 ml PO Q6HR PRN Dyspepsia #355 mL 08/28/22 10/13/22 Rx 200 mg-200 mg-20 mg/5 mL oral susp (Mag-Al Plus) calcium carbonate 200 mg calcium 1,000 mg PO Q4HR PRN Dyspepsia #60 08/28/22 10/13/22 Rx (500 mg) chewable tablet tabs docusate sodium 100 mg capsule 100 mg PO BID #60 caps 08/28/22 10/13/22 Rx furosemide 40 mg tablet 40 mg PO 0800,1700 #60 tabs 08/28/22 10/13/22 Rx potassium chloride 20 mEq/15 mL 20 meq (15 mL) PO BIDWM #250 mL 08/28/22 10/13/22 Rx oral liquid sennosides 8.6 mg tablet (senna) 17.2 mg PO BEDTIME #60 tabs 08/28/22 10/13/22 Rx fentanyl 12 mcg/hr transdermal 12 mcg transdermal SEEINSTR 10/13/22 10/13/22 History patch warfarin 1 mg tablet 1 mg PO DAILY 10/13/22 10/13/22 History Allergies Allergy/AdvReac Type Severity Reaction Status Date / Time hydroxychloroquine Allergy Unknown Verified 09/14/22 14:35 [HYDROXYCHLOROQUINE] cefepime AdvReac Intermediate pruritis Verified 09/14/22 14:35 promethazine [From Phenergan] AdvReac Agitated Verified 10/13/22 14:35 Review of Systems Review of Systems Narrative: All other systems reviewed with the patient and are negative unless otherwise stated. Exam Vital Signs (past 8 hours): - 10/13/22 09:59 10/13/22 10:00 10/13/22 10:00 Pulse Rate 106 H 102 H Respiratory Rate 20 Blood Pressure 198/94 H Pulse Oximetry 90 L 92 Oxygen Delivery Method Oxygen Flow Rate 6 10/13/22 10:30 10/13/22 10:35 10/13/22 10:35 Pulse Rate 101 H 101 H Respiratory Rate 35 H 34 H Blood Pressure 165/83 H Pulse Oximetry 93 96 Oxygen Delivery Method Nasal Cannula Nasal Cannula Oxygen Flow Rate 6 6 Oxygen Delivery Method Nasal Cannula Oxygen Flow Rate 6 Narrative Exam Narrative: GEN:? Ill-appearing female, somnolent on HFNC HEENT: moist mucous membranes, PERRL NECK: trachea midline, no JVD CV: regular rate and rhythm, no murmurs PULM:? Diffuse coarse breath sounds ABD: soft, nontender, nondistended, no organomegaly EXT: warm and well perfused with no edema NEURO:? Unable to assess mental status due to somnolence Objective Labs 10/13/22 10:20 10/13/22 10:20 Labs: Laboratory Results - last 24 hr 10/13/22 10/13/22 10/13/22 10:20 10:20 10:20 WBC 15.4 H RBC 4.01 Hgb 11.3 L Hct 34.4 L MCV 85.8 MCH 28.0 MCHC 32.7 RDW 19.2 H Plt Count 412 H Neut % (Auto) 86.4 H Lymph % (Auto) 6.2 L Anson % (Auto) 6.6 Eos % (Auto) 0.0 L Baso % (Auto) 0.8 Neut # (Auto) 47845 H Lymph # (Auto) 900 L Anson # (Auto) 1000 H Eos # (Auto) 0 Baso # (Auto) 100 PT 30.0 H INR 2.6 H APTT Sodium 136 L Potassium 3.7 Chloride 98 Carbon Dioxide 31 BUN 13 Creatinine 0.67 Estimated GFR > 60 BUN/Creatinine Ratio 19.4 Glucose 129 H Lactate Calcium 9.1 Total Bilirubin 0.8 AST 24 ALT 17 Alkaline Phosphatase 87 Total Creatine Kinase 38 Troponin I 0.027 NT-Pro-B Natriuret Pep 3730 H Total Protein 7.8 Albumin 3.8 Globulin 4.0 Albumin/Globulin Ratio 1.0 Procalcitonin 0.09 Chlamy pneumoniae PCR Adenovirus (PCR) B. pertussis DNA (PCR) B.parapertussis DNA PCR Coronavirus OC43 (PCR) Coronavirus HKU1 (PCR) Coronavirus 229E (PCR) SARS-CoV-2 (PCR) Coronavirus NL63 (PCR) Human Metapneumovir PCR Influenza Type A (PCR) Influenza Type B (PCR) M. pneumoniae (PCR) Parainfluenza 1 (PCR) Parainfluenza 2 (PCR) Parainfluenza 3 (PCR) Parainfluenza 4 (PCR) RSV (PCR) Entero/Rhino (PCR) 10/13/22 10/13/22 10/13/22 10:20 10:20 10:25 WBC RBC Hgb Hct MCV MCH MCHC RDW Plt Count Neut % (Auto) Lymph % (Auto) Anson % (Auto) Eos % (Auto) Baso % (Auto) Neut # (Auto) Lymph # (Auto) Anson # (Auto) Eos # (Auto) Baso # (Auto) PT INR APTT 45 H Sodium Potassium Chloride Carbon Dioxide BUN Creatinine Estimated GFR BUN/Creatinine Ratio Glucose Lactate 1.8 Calcium Total Bilirubin AST ALT Alkaline Phosphatase Total Creatine Kinase Troponin I NT-Pro-B Natriuret Pep Total Protein Albumin Globulin Albumin/Globulin Ratio Procalcitonin Chlamy pneumoniae PCR Not detected Adenovirus (PCR) Not detected B. pertussis DNA (PCR) Not detected B.parapertussis DNA PCR Not detected Coronavirus OC43 (PCR) Not detected Coronavirus HKU1 (PCR) Not detected Coronavirus 229E (PCR) Not detected SARS-CoV-2 (PCR) Not detected Coronavirus NL63 (PCR) Not detected Human Metapneumovir PCR Not detected Influenza Type A (PCR) Not detected Influenza Type B (PCR) Not detected M. pneumoniae (PCR) Not detected Parainfluenza 1 (PCR) Not detected Parainfluenza 2 (PCR) Not detected Parainfluenza 3 (PCR) Not detected Parainfluenza 4 (PCR) Not detected RSV (PCR) Not detected Entero/Rhino (PCR) Not detected Assessment & Plan Assessment & Plan narrative: # sepsis secondary to right lower lobe pneumonia in setting of CVID, complicated by acute metabolic encephalopathy -WBC 15.4, febrile to 100.3F, chest x-ray with bilateral infiltrates. Patient somnolent on exam. -resp PCR negative -history of previous pseudomonas resistant to quinolones and zosyn and MRSA in spine -start cefepime and vanc, give benadryl PRN as pt has pruritis with cefepime -check MRSA screen and if negative can stop vanc -f/u sputum and blood cultures -hold home prednisone 5mg qd for now while acutely infected # acute on chronic hypoxic respiratory failure in setting of asthma and bronchiectasis -normally on 4-5L NC at home, currently requiring HFNC -followed outpatient by pulmonology at [facility] -etiology likely due to pneumonia, treat as above -wean O2 as able -duonebs PRN -continue home singulair, zyrtec and mucinex # hypomagnesemia -mag 1.7 -2g ordered -monitor and replete PRN # history of PE and A-fib -has IVC filter due to recent hematoma while on anticoag -restarted warfarin as oupatient recently -warfarin per pharm # HFpEF -continue po lasix 40mg BID # DM2 -med dose SSI -continue lantus 30 units daily -A1c in August 2022 was 6.8% # RLS -continue home mirapex # chronic pain -continue fentanyl patch 37mcg daily plus oxy 15mg q6h PRN -continue tizanidine PRN # neuropathy -continue cymbalta, nortriptyline # hypothryoidism -continue synthroid # HLD -continue statin # GERD -continue PPI Code status is DNR/DNI. COVID negative. DVT prophylaxis with warfarin plus SCD's. Proxy is Harjeet. I spent a total of 35 minutes of critical care time on this patient's care today; this time is exclusive of procedural time. Dispo: ICU on HFNC. Likely 3 days.
[2022-10-13 12:41] LABS: HCO3 ABG 30 mmol/L (23-27); Oxygen Saturation ABG 90 % (95-100); PCO2 ABG 37.8 mmHg (35-45); PO2 ABG 53 mmHg (80-100); TCO2 ABG 31 mmol/L (23-27); pH ABG 7.51 (7.35-7.45)
[2022-10-13 12:42] LABS: Fractionated Inspired Oxygen 45
[2022-10-13 12:56] LABS: Magnesium 1.7 mg/dL (1.6-2.3)
--- NOTE | 2022-10-13 13:07 | PC.NURSE ---
Called report to HARSHAD Ordaz
[2022-10-13 13:37] LABS: Appearance Urine UA CLOUDY; Bilirubin Urine UA NEGATIVE (NEGATIVE); Color Urine UA YELLOW; Glucose Urine UA NEGATIVE (Negative); Ketones Urine UA NEGATIVE (NEGATIVE); Leukocyte Esterase Urine UA TRACE (NEGATIVE); Nitrite Urine UA NEGATIVE (Negative); Occult Blood Urine UA NEGATIVE (Negative); Protein Urine UA 1+ (Negative); Specific Gravity Urine UA 1.015 (1.000-1.035); Urobilinogen Urine UA 0.2 E.U./dL (0.2)
[2022-10-13 13:43] LABS: pH Urine UA 8.5 (4.5-8.0)
[2022-10-13] MEDS: ACETAMINOPHEN 325 MG TABLET 650 MG PO ×2 (13:49→23:12)
[2022-10-13 13:51] LABS: Bacteria Urine Many (>30); RBC Urine None Seen (0-5/HPF); Squamous Epithelial Cell Urine 10-30 /HPF (0-5/HPF); WBC Urine 1-5/HPF (0-5/HPF)
[2022-10-13 14:04] LABS: Culture Indicated Urine Specimen Cultured
[2022-10-13] MEDS: CEFEPIME 2 GM in SODIUM CHLORIDE 0.9% 100 ML IV (14:26)
[2022-10-13] MEDS: AZITHROMYCIN 500 MG in DEXTROSE 5% IN WATER 250 ML 250 MG IV (14:27)
[2022-10-13] MEDS: MAGNESIUM CHLORIDE 64 MG TABLET 128 MG PO (15:06)
[2022-10-13] MEDS: POTASSIUM CHLORIDE 20 MEQ/15 ML UDC PO (17:30)
[2022-10-13] MEDS: FUROSEMIDE 40 MG TABLET PO (17:30)
[2022-10-13] MEDS: INSULIN LISPRO 100 UNIT/ML 3ML VIAL SUBCUT (17:30)
[2022-10-13] MEDS: WARFARIN 1 MG TABLET PO (17:58)
[2022-10-13] MEDS: MAGNESIUM SULFATE 2 GM/50 ML PIGGYBACK IV (18:30)
[2022-10-13 18:53] LABS: MRSA (Nasal) PCR Not Detected (Not Detect)
[2022-10-13] MEDS: MONTELUKAST 10 MG TABLET PO (21:21)
[2022-10-13] MEDS: cloNIDine 0.1 MG TABLET 0.05 MG PO (21:22)
[2022-10-13] MEDS: NORTRIPTYLINE HCL 25 MG CAPSULE PO (21:22)
[2022-10-13] MEDS: PRAMIPEXOLE 0.25 MG TABLET 0.5 MG PO (21:22)
[2022-10-13] MEDS: SENNOSIDES 8.6 MG TABLET 17.2 MG PO (21:22)
[2022-10-13] MEDS: ATORVASTATIN 20 MG TABLET 40 MG PO (21:23)
[2022-10-13] MEDS: DOCUSATE 100 MG CAPSULE PO (21:23)
[2022-10-13] MEDS: guaiFENesin ER 600 MG TAB 1200 MG PO (21:23)
[2022-10-13] MEDS: PANTOPRAZOLE DR 40 MG TABLET PO (21:24)
[2022-10-13] MEDS: FERROUS SULFATE 325 MG TABLET PO (21:24)
[2022-10-13] MEDS: ONDANSETRON 4 MG/2 ML INJ IV (22:19)
[2022-10-13] MEDS: HYDRALAZINE 20 MG/ML VIAL 10 MG IV (22:19)
[2022-10-13] MEDS: TIZANIDINE 4 MG TABLET PO (23:12)
[2022-10-13] MEDS: MELATONIN 3 MG TABLET 6 MG PO (23:12)
--- NOTE | 2022-10-13 23:25 | PC.NURSE ---
Pt. vomited small amt. of bilious fluid 2x and happens after given oral meds. Dr. Cervantes made aware of this so will avoid giving pt. po meds at this time. Pt. remains confused and restless but does follow commands. It's hard to assess if she is in pain or what because her answer is always I don't know. Cont. to treat and monitor.
[2022-10-13] MEDS: MORPHINE 2 MG/ML INJ IV (23:33)
[2022-10-14] VITALS (59 sets, daily range): BP systolic 91–201; BP diastolic 50–117; PULSE 85–119; RESP 16–39; TEMP 36.6–38.1; O2SAT 91–100
[2022-10-14] MEDS: CEFEPIME 2 GM in SODIUM CHLORIDE 0.9% 100 ML IV ×2 (01:33→14:13)
[2022-10-14] MEDS: MORPHINE 2 MG/ML INJ IV ×2 (01:33→19:36)
[2022-10-14 06:56] LABS: INR 3.4 (0.9-1.3); Prothrombin Time 39.4 SECONDS (10.1-12.7)
[2022-10-14 06:59] LABS: Hematocrit 34.8 % (36-46); Hemoglobin 11.4 g/dL (12.0-16.0); Mean Corpuscular HGB Conc 32.7 % (30-36); Mean Corpuscular Volume 85.6 fL (80-100); Platelet Count 424 X10^3/uL (150-400); Red Blood Cell Count 4.07 X10^6/uL (4.0-5.2); Red Cell Distribution Width 19.4 % (11.6-14.8); White Blood Cell Count 17.6 X10^3/uL (4.5-11.0)
[2022-10-14 07:00] LABS: Add Manual Diff / Slide Review YES
[2022-10-14 07:01] LABS: BUN Creatinine Ratio 19.8 (6-22); Blood Urea Nitrogen 16 mg/dL (7-17); Calcium 8.7 mg/dL (8.4-10.2); Carbon Dioxide 32 mmol/L (22-32); Chloride 98 mmol/L (98-107); Estimated Glomerular Filt Rate > 60 mL/min (>60); Glucose 105 mg/dL (80-110); HEMOLYSIS 21 (0-50); Potassium 4.1 mmol/L (3.4-5.1); Sodium 134 mmol/L (137-145)
[2022-10-14 07:18] LABS: Procalcitonin 2.47 ng/mL (<0.5)
[2022-10-14 07:20] LABS: Anisocytosis 1+; Neutrophils Absolute Manual 16544 /uL (3000-5900); Total Cells Counted 100
[2022-10-14] MEDS: INSULIN GLARGINE 100 UNIT/ML 3ML PEN 30 UNIT SUBCUT (07:43)
--- NOTE | 2022-10-14 07:49 | PM.PN.1 ---
Subjective Subjective Interval history: 71-year-old female with chronic variable immunodeficiency with Q three-week IVIG infusions and prednisone, AFib on warfarin anticoagulation previously complicated by hematoma development, previous PE with IVC filter in place, heart failure with preserved ejection fraction, NSTEMI in January 2022, obstructive sleep apnea, diabetes mellitus type 2, asthma, chronic hip and back pain on fentanyl patch, hypothyroidism, hypertension, hyperlipidemia, multiple prior episodes of pneumonia with Pseudomonas, stenotrophomonas, and MRSA who is on chronic azithromycin as well as chronic hypoxic respiratory failure on 5 L nasal cannula who was admitted with sepsis secondary to right lower lobe pneumonia in the setting of chronic immunodeficiency, as well as acute on chronic hypoxic respiratory failure. Patient remains somewhat confused. She is complaining of being cold this morning. She also complains of bilateral leg pain. She believes she had some sleep last night. RN reports she vomited after receiving her oral meds last night. Nursing is concerned about possible aspiration. Patient does admit to being short of breath this morning. She is somewhat restless and has difficulty tracking conversation. Exam Vital Signs (past 8 hours): - 10/14/22 00:00 10/14/22 00:00 10/14/22 04:00 Temperature 99.3 F 100.5 F H 99.3 F Pulse Rate 93 H 97 H Respiratory Rate 26 H 22 Blood Pressure 112/53 L 113/54 L Pulse Oximetry 92 95 Oxygen Flow Rate 40 40 Fraction of Inspired Oxygen 0.65 0.65 10/14/22 07:34 Temperature Pulse Rate 105 H Respiratory Rate 26 H Blood Pressure 137/70 Pulse Oximetry 95 Oxygen Flow Rate Fraction of Inspired Oxygen Fraction of Inspired Oxygen 0.65 Oxygen Delivery Method Heated High Flow Oxygen Flow Rate 40 Narrative Exam Narrative: GEN: Alert and oriented x 1-2, acutely and chronically ill-appearing HEENT:NC, Face symmetric CHEST: Respiratory excursions symmetric, coarse with diminished breath sounds in the bases bilaterally CV: Mildly tachycardic, irregularly irregular, no M/R/G ABD: Soft, mild right lower quadrant tenderness, ND, BT present but hypoactive in all 4 quadrants, body habitus limits exam EXTR: Erythema to the bilateral lower extremities in the pretibial area, warm, well perfused, no C/C/E, significant wrinkling to the skin of the lower extremities consistent with venous stasis changes SKIN: warm and dry, no rash NEURO: Alert and oriented x 1-2, moving all extremities Objective Labs 10/14/22 06:45 10/14/22 06:45 Labs: Laboratory Results - last 24 hr 10/13/22 10/13/22 10/13/22 10:20 10:20 10:20 WBC 15.4 H RBC 4.01 Hgb 11.3 L Hct 34.4 L MCV 85.8 MCH 28.0 MCHC 32.7 RDW 19.2 H Plt Count 412 H Neut % (Auto) 86.4 H Lymph % (Auto) 6.2 L [place] % (Auto) 6.6 Eos % (Auto) 0.0 L Baso % (Auto) 0.8 Neut # (Auto) 80329 H Lymph # (Auto) 900 L [place] # (Auto) 1000 H Eos # (Auto) 0 Baso # (Auto) 100 Total Counted Seg Neutrophils % Band Neutrophils % Lymphocytes % (Manual) Atypical Lymphs % Monocytes % (Manual) Neutrophils # (Manual) RBC Morphology Anisocytosis PT 30.0 H INR 2.6 H APTT ABG pH ABG pCO2 ABG pO2 ABG HCO3 ABG Total CO2 ABG O2 Saturation ABG Base Excess FiO2 Sodium 136 L Potassium 3.7 Chloride 98 Carbon Dioxide 31 BUN 13 Creatinine 0.67 Estimated GFR > 60 BUN/Creatinine Ratio 19.4 Glucose 129 H Lactate Calcium 9.1 Magnesium Total Bilirubin 0.8 AST 24 ALT 17 Alkaline Phosphatase 87 Total Creatine Kinase 38 Troponin I 0.027 NT-Pro-B Natriuret Pep 3730 H Total Protein 7.8 Albumin 3.8 Globulin 4.0 Albumin/Globulin Ratio 1.0 Procalcitonin 0.09 Urine Color Urine Appearance Urine pH Ur Specific [place] Urine Protein Urine Glucose (UA) Urine Ketones Urine Occult Blood Urine Nitrate Urine Bilirubin Urine Urobilinogen Ur Leukocyte Esterase Urine RBC Urine WBC Ur Squamous Epith Cells Urine Bacteria Ur Culture Indicated? Nasal Screen MRSA (PCR) Chlamy pneumoniae PCR Adenovirus (PCR) B. pertussis DNA (PCR) B.parapertussis DNA PCR Coronavirus OC43 (PCR) Coronavirus HKU1 (PCR) Coronavirus 229E (PCR) SARS-CoV-2 (PCR) Coronavirus NL63 (PCR) Human Metapneumovir PCR Influenza Type A (PCR) Influenza Type B (PCR) M. pneumoniae (PCR) Parainfluenza 1 (PCR) Parainfluenza 2 (PCR) Parainfluenza 3 (PCR) Parainfluenza 4 (PCR) RSV (PCR) Entero/Rhino (PCR) 10/13/22 10/13/22 10/13/22 10:20 10:20 10:20 WBC RBC Hgb Hct MCV MCH MCHC RDW Plt Count Neut % (Auto) Lymph % (Auto) [place] % (Auto) Eos % (Auto) Baso % (Auto) Neut # (Auto) Lymph # (Auto) [place] # (Auto) Eos # (Auto) Baso # (Auto) Total Counted Seg Neutrophils % Band Neutrophils % Lymphocytes % (Manual) Atypical Lymphs % Monocytes % (Manual) Neutrophils # (Manual) RBC Morphology Anisocytosis PT INR APTT 45 H ABG pH ABG pCO2 ABG pO2 ABG HCO3 ABG Total CO2 ABG O2 Saturation ABG Base Excess FiO2 Sodium Potassium Chloride Carbon Dioxide BUN Creatinine Estimated GFR BUN/Creatinine Ratio Glucose Lactate 1.8 Calcium Magnesium 1.7 Total Bilirubin AST ALT Alkaline Phosphatase Total Creatine Kinase Troponin I NT-Pro-B Natriuret Pep Total Protein Albumin Globulin Albumin/Globulin Ratio Procalcitonin Urine Color Urine Appearance Urine pH Ur Specific [place] Urine Protein Urine Glucose (UA) Urine Ketones Urine Occult Blood Urine Nitrate Urine Bilirubin Urine Urobilinogen Ur Leukocyte Esterase Urine RBC Urine WBC Ur Squamous Epith Cells Urine Bacteria Ur Culture Indicated? Nasal Screen MRSA (PCR) Chlamy pneumoniae PCR Adenovirus (PCR) B. pertussis DNA (PCR) B.parapertussis DNA PCR Coronavirus OC43 (PCR) Coronavirus HKU1 (PCR) Coronavirus 229E (PCR) SARS-CoV-2 (PCR) Coronavirus NL63 (PCR) Human Metapneumovir PCR Influenza Type A (PCR) Influenza Type B (PCR) M. pneumoniae (PCR) Parainfluenza 1 (PCR) Parainfluenza 2 (PCR) Parainfluenza 3 (PCR) Parainfluenza 4 (PCR) RSV (PCR) Entero/Rhino (PCR) 10/13/22 10/13/22 10/13/22 10:25 12:15 12:44 WBC RBC Hgb Hct MCV MCH MCHC RDW Plt Count Neut % (Auto) Lymph % (Auto) [place] % (Auto) Eos % (Auto) Baso % (Auto) Neut # (Auto) Lymph # (Auto) [place] # (Auto) Eos # (Auto) Baso # (Auto) Total Counted Seg Neutrophils % Band Neutrophils % Lymphocytes % (Manual) Atypical Lymphs % Monocytes % (Manual) Neutrophils # (Manual) RBC Morphology Anisocytosis PT INR APTT ABG pH 7.51 H ABG pCO2 37.8 ABG pO2 53 L ABG HCO3 30 H ABG Total CO2 31 H ABG O2 Saturation 90 L ABG Base Excess 7.0 H FiO2 45 Sodium Potassium Chloride Carbon Dioxide BUN Creatinine Estimated GFR BUN/Creatinine Ratio Glucose Lactate Calcium Magnesium Total Bilirubin AST ALT Alkaline Phosphatase Total Creatine Kinase Troponin I NT-Pro-B Natriuret Pep Total Protein Albumin Globulin Albumin/Globulin Ratio Procalcitonin Urine Color Yellow Urine Appearance Cloudy Urine pH 8.5 H Ur Specific [place] 1.015 Urine Protein 1+ H Urine Glucose (UA) Negative Urine Ketones Negative Urine Occult Blood Negative Urine Nitrate Negative Urine Bilirubin Negative Urine Urobilinogen 0.2 Ur Leukocyte Esterase Trace H Urine RBC None seen Urine WBC 1-5/hpf Ur Squamous Epith Cells 10-30 /hpf H D Urine Bacteria Many (>30) H Ur Culture Indicated? Specimen cultured Nasal Screen MRSA (PCR) Chlamy pneumoniae PCR Not detected Adenovirus (PCR) Not detected B. pertussis DNA (PCR) Not detected B.parapertussis DNA PCR Not detected Coronavirus OC43 (PCR) Not detected Coronavirus HKU1 (PCR) Not detected Coronavirus 229E (PCR) Not detected SARS-CoV-2 (PCR) Not detected Coronavirus NL63 (PCR) Not detected Human Metapneumovir PCR Not detected Influenza Type A (PCR) Not detected Influenza Type B (PCR) Not detected M. pneumoniae (PCR) Not detected Parainfluenza 1 (PCR) Not detected Parainfluenza 2 (PCR) Not detected Parainfluenza 3 (PCR) Not detected Parainfluenza 4 (PCR) Not detected RSV (PCR) Not detected Entero/Rhino (PCR) Not detected 10/13/22 10/14/22 10/14/22 17:39 06:45 06:45 WBC 17.6 H RBC 4.07 Hgb 11.4 L Hct 34.8 L MCV 85.6 MCH 28.0 MCHC 32.7 RDW 19.4 H Plt Count 424 H Neut % (Auto) Not Reportable Lymph % (Auto) Not Reportable [place] % (Auto) Not Reportable Eos % (Auto) Not Reportable Baso % (Auto) Not Reportable Neut # (Auto) Lymph # (Auto) Not Reportable [place] # (Auto) Not Reportable Eos # (Auto) Baso # (Auto) Not Reportable Total Counted 100 Seg Neutrophils % 91.0 H Band Neutrophils % 3.0 Lymphocytes % (Manual) 2.0 L Atypical Lymphs % 2.0 H Monocytes % (Manual) 2.0 Neutrophils # (Manual) 06994 H RBC Morphology Not Reportable Anisocytosis 1+ H PT INR APTT ABG pH ABG pCO2 ABG pO2 ABG HCO3 ABG Total CO2 ABG O2 Saturation ABG Base Excess FiO2 Sodium 134 L Potassium 4.1 Chloride 98 Carbon Dioxide 32 BUN 16 Creatinine 0.81 Estimated GFR > 60 BUN/Creatinine Ratio 19.8 Glucose 105 Lactate Calcium 8.7 Magnesium Total Bilirubin AST ALT Alkaline Phosphatase Total Creatine Kinase Troponin I NT-Pro-B Natriuret Pep Total Protein Albumin Globulin Albumin/Globulin Ratio Procalcitonin 2.47 H Urine Color Urine Appearance Urine pH Ur Specific [place] Urine Protein Urine Glucose (UA) Urine Ketones Urine Occult Blood Urine Nitrate Urine Bilirubin Urine Urobilinogen Ur Leukocyte Esterase Urine RBC Urine WBC Ur Squamous Epith Cells Urine Bacteria Ur Culture Indicated? Nasal Screen MRSA (PCR) Not detected Chlamy pneumoniae PCR Adenovirus (PCR) B. pertussis DNA (PCR) B.parapertussis DNA PCR Coronavirus OC43 (PCR) Coronavirus HKU1 (PCR) Coronavirus 229E (PCR) SARS-CoV-2 (PCR) Coronavirus NL63 (PCR) Human Metapneumovir PCR Influenza Type A (PCR) Influenza Type B (PCR) M. pneumoniae (PCR) Parainfluenza 1 (PCR) Parainfluenza 2 (PCR) Parainfluenza 3 (PCR) Parainfluenza 4 (PCR) RSV (PCR) Entero/Rhino (PCR) 10/14/22 06:45 WBC RBC Hgb Hct MCV MCH MCHC RDW Plt Count Neut % (Auto) Lymph % (Auto) [place] % (Auto) Eos % (Auto) Baso % (Auto) Neut # (Auto) Lymph # (Auto) [place] # (Auto) Eos # (Auto) Baso # (Auto) Total Counted Seg Neutrophils % Band Neutrophils % Lymphocytes % (Manual) Atypical Lymphs % Monocytes % (Manual) Neutrophils # (Manual) RBC Morphology Anisocytosis PT 39.4 H D INR 3.4 H APTT ABG pH ABG pCO2 ABG pO2 ABG HCO3 ABG Total CO2 ABG O2 Saturation ABG Base Excess FiO2 Sodium Potassium Chloride Carbon Dioxide BUN Creatinine Estimated GFR BUN/Creatinine Ratio Glucose Lactate Calcium Magnesium Total Bilirubin AST ALT Alkaline Phosphatase Total Creatine Kinase Troponin I NT-Pro-B Natriuret Pep Total Protein Albumin Globulin Albumin/Globulin Ratio Procalcitonin Urine Color Urine Appearance Urine pH Ur Specific [place] Urine Protein Urine Glucose (UA) Urine Ketones Urine Occult Blood Urine Nitrate Urine Bilirubin Urine Urobilinogen Ur Leukocyte Esterase Urine RBC Urine WBC Ur Squamous Epith Cells Urine Bacteria Ur Culture Indicated? Nasal Screen MRSA (PCR) Chlamy pneumoniae PCR Adenovirus (PCR) B. pertussis DNA (PCR) B.parapertussis DNA PCR Coronavirus OC43 (PCR) Coronavirus HKU1 (PCR) Coronavirus 229E (PCR) SARS-CoV-2 (PCR) Coronavirus NL63 (PCR) Human Metapneumovir PCR Influenza Type A (PCR) Influenza Type B (PCR) M. 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 Osteopenia Pneumonia Pneumonia Recurrent sinusitis (~1970) Restless leg syndrome Shoulder pain (~03/2018) Sleep apnea Wears glasses Surgical History Anesthesia History of carpal tunnel release History of cataract removal with insertion of prosthetic lens (~2014) History of section History of laminectomy (~2002) History of spinal fusion (~2012) History of thumb surgery Family History Father Stroke Mother Hypertension Brother Cerebral aneurysm Prostate cancer Diabetes mellitus Hypertension Stroke Brother Arthritis Hyperlipidemia Hypertension Sister History of kidney cancer Hypertension Grandfather Cancer Grandmother Cancer Other Family history non-contributory Social History marital status: household members: spouse lives independently: Yes occupational status: previously employed Smoking Status: Never smoker alcohol intake: current substance use type: does not use Assessment & Plan Assessment & Plan narrative: 1. Sepsis secondary to right lower lobe pneumonia in the setting of chronic immunodeficiency On admission, she was febrile with leukocytosis and altered mental status. She was initiated on cefepime and vancomycin. White blood cell count is somewhat worse at 17.6 today up from 15.4. She is chronically on prednisone 5 mg daily, which puts her at lower risk for adrenal insufficiency. If she develops any signs of adrenal insufficiency, will add hydrocortisone. 2. Recurrent right lower lobe pneumonia in chronically immunosuppressed patient Continue cefepime and vancomycin. She is a history of itching with cefepime and has as needed Benadryl available. Procalcitonin remains elevated at 2.47. 3. Acute on chronic hypoxic respiratory failure Remains on high-flow via nasal cannula at 40 liters/minute. This is improved from 50 L yesterday. Acute decompensation is secondary to pneumonia. 4. CVID Receives every 3 week doses of IVIG. She is on Hizintra q week which has been held. 5. Acute metabolic encephalopathy She does have persistent encephalopathy this morning, likely multifactorial from sepsis, pneumonia, and respiratory failure. 6. Hypomagnesemia She has had borderline hypomagnesemia with a magnesium level of 1.7 on admission. Will monitor. 7. History of pulmonary embolism Status post IVC filter placement. Also on warfarin anticoagulation. 8. Atrial fibrillation She is now back on warfarin anticoagulation. INR is supratherapeutic at 3.4, up from 2.6 yesterday. 9. Chronic heart failure with preserved ejection fraction Takes Lasix 40 mg twice daily. BNP was increased at 3730 on admission yesterday. Continue furosemide, but will change to 20 mg IV b.i.d. given her unsafe swallow. 10. Diabetes mellitus type 2 On Lantus 30 units daily. Hemoglobin A1c in August of this year was 6.8%. Continue sliding scale. Blood sugars are well controlled ranging from 96-136. 11. Chronic pain syndrome Continue usual fentanyl 37 mcg/hour as well as oxycodone 15 mg every 6 hours as needed 12. Neuropathy Continue duloxetine and amitriptyline 13. Asthma On Fasenra as an outpatient q8 wks, as well as Wixela, Advair, Singulair, and duonebs. 14. Restless leg syndrome Continue Mirapex 15. Hypothyroidism Continue usual outpatient dose of levothyroxine 16. Hyperlipidemia Continue atorvastatin 17. GERD On Protonix b.i.d. 18. Class 3 obesity BMI is 41.5. She is at significantly higher risk of morbidity and mortality related to her obesity and would benefit from weight reduction. Code status DNR DNI Prophylaxis On warfarin Disposition ICU. Will obtain EICU consult.
[2022-10-14] MEDS: ALBUTEROL/IPRATROPIUM 3 ML AMPUL INH ×2 (07:51→19:48)
[2022-10-14] MEDS: fentaNYL 25 MCG/PATCH TOP (08:43)
[2022-10-14] MEDS: fentaNYL 12 MCG/PATCH TOP (08:43)
[2022-10-14] MEDS: FUROSEMIDE 20 MG/2 ML VIAL IV ×2 (09:19→21:38)
--- NOTE | 2022-10-14 09:46 | PM.CN.EICU ---
History of Present Illness Consult details IF CAMERA ACTIVATED, patient seen via real-time interactive audiovisual communication: Camera activated Date Patient Seen: 10/14/22 Chief complaint: Chronic Pneumonia Reason for consult: Acute hypoxemia respiratory failure Requesting provider: Delaney Menjivar Consent obtained for tele-gerentological physiotherapist care: Yes Patient Location: ICU Provider location (State): [place] Other participants/roles: Dr. 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 At baseline patient is on 5 liters NC. On presentation she was found to have worsening hypoxemia requiring HFNC and encephalopathic. Admitted to ICU for further management. On camera assessment, patient is encephalpathic and on HFNC. No signs of labor breathing or hemodynamic instability. [facility] Medical History Abnormal chest xray (~1979) Anemia Ankle pain Anticoagulated Asthma (~1959) Bronchiectasis (~2006) Cervical spine disease Chronic back pain Colon polyps (~2015) Degenerative joint disease of spine (~2001) Diabetes mellitus, type II (~2009) Eczema Fibromyalgia Foot pain Hoarseness Hyperlipidemia Hypertension Hypothyroidism Migraines (~1964) 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 Osteopenia Pneumonia Pneumonia Recurrent sinusitis (~1970) Restless leg syndrome Shoulder pain (~03/2018) Sleep apnea Wears glasses Surgical History Anesthesia History of carpal tunnel release History of cataract removal with insertion of prosthetic lens (~2014) History of section History of laminectomy (~2002) History of spinal fusion (~2012) History of thumb surgery Family History Father Stroke Mother Hypertension Brother Cerebral aneurysm Prostate cancer Diabetes mellitus Hypertension Stroke Brother Arthritis Hyperlipidemia Hypertension Sister History of kidney cancer Hypertension Grandfather Cancer Grandmother Cancer Other Family history non-contributory Social History marital status: household members: spouse lives independently: Yes occupational status: previously employed Smoking Status: Never smoker alcohol intake: current substance use type: does not use Current Medications Current Medications Medications: Home Medications polyethylene glycol 3350 17 gram/dose oral powder (Miralax) 17 gm PO DAILY PRN Constipation ##0 06/06/17 [History Confirmed 10/13/22] albuterol sulfate 90 mcg/actuation aerosol inhaler 2 puff inhalation Q4-6H PRN Shortness Of Breath 05/29/19 [History Confirmed 10/13/22] cholecalciferol (vitamin D3) 50 mcg (2,000 unit) tablet 2,000 unit PO DAILY 05/29/19 [History Confirmed 10/13/22] ferrous sulfate 325 mg (65 mg iron) tablet 325 mg PO BEDTIME 05/29/19 [History Confirmed 10/13/22] tizanidine 4 mg capsule 4 mg PO QID PRN Muscle Spasm 05/29/19 [History Confirmed 10/13/22] sodium chloride 3 % for nebulization 3 ml inhalation BID 06/05/19 [History Confirmed 10/13/22] ondansetron HCl 4 mg tablet (Zofran) 4 mg PO Q8H PRN nausea and vomiting #30 tabs 10/06/19 [Rx Confirmed 10/13/22] cetirizine 10 mg capsule (Zyrtec) 10 mg PO DAILY allergies 01/20/20 [History Confirmed 10/13/22] montelukast 10 mg tablet (Singulair) 10 mg PO BEDTIME 01/20/20 [History Confirmed 10/13/22] verio reflect glucometer #1 ea 01/28/20 [Rx Confirmed 10/13/22] insulin syringe-needle U-100 0.5 mL 31 gauge x 5/16 (BD Insulin Syringe Ultra-Fine) #100 ea 03/30/20 [Rx Confirmed 10/13/22] metformin 1,000 mg tablet 1,000 mg PO BID #180 tabs 09/03/20 [Rx Confirmed 10/13/22] atorvastatin 40 mg tablet 40 mg PO BEDTIME 04/20/21 [History Confirmed 10/13/22] epinephrine 0.3 mg/0.3 mL injection, auto-injector (EpiPen) 0.3 mg IM Q5-15M PRN Allergic Reaction 04/20/21 [History Confirmed 10/13/22] insulin glargine 100 unit/mL subcutaneous solution 30 unit SUBCUT QAM 04/20/21 [History Confirmed 10/13/22] insulin lispro 100 unit/mL subcutaneous pen (Humalog KwikPen (U-100) Insulin) 4 - 8 unit SUBCUT TID 04/20/21 [History Confirmed 10/13/22] ipratropium 0.5 mg-albuterol 3 mg (2.5 mg base)/3 mL nebulization soln 3 ml inhalation BID 04/20/21 [History Confirmed 10/13/22] levothyroxine 75 mcg tablet 75 mcg PO QAM 04/20/21 [History Confirmed 10/13/22] nortriptyline 25 mg capsule 25 mg PO BEDTIME 04/20/21 [History Confirmed 10/13/22] tiotropium bromide 18 mcg capsule with inhalation device (Spiriva with HandiHaler) 1 cap inhalation DAILY 04/20/21 [History Confirmed 10/13/22] lansoprazole 15 mg capsule,delayed release (Prevacid 24Hr) 30 mg PO BID 04/29/21 [History Confirmed 10/13/22] duloxetine 30 mg capsule,delayed release 30 mg PO DAILY 06/28/21 [History Confirmed 10/13/22] fluticasone 500 mcg-salmeterol 50 mcg/dose blistr powdr for inhalation (Wixela Inhub) 1 inh inhalation BID 06/28/21 [History Confirmed 10/13/22] guaifenesin 1,200 mg tablet, extended release 12 hr (Mucinex) 1,200 mg PO BID 06/28/21 [History Confirmed 10/13/22] oxycodone-acetaminophen 10 mg-325 mg tablet (Percocet) 1 tab PO Q4H PRN Pain (Scale Score 4-6) 06/28/21 [History Confirmed 10/13/22] pramipexole 0.5 mg tablet 0.5 mg PO BEDTIME 06/28/21 [History Confirmed 10/13/22] fentanyl 25 mcg/hr transdermal patch 1 patch transdermal Q72H PRN pain (scale score 1-3) #5 ea 02/05/22 [Rx Confirmed 10/13/22] omega-3 fatty acids 1,000 mg PO DAILY 04/24/22 [History Confirmed 10/13/22] benralizumab 30 mg/mL subcutaneous syringe (Fasenra) 30 mg SUBCUT Q8W 06/03/22 [History Confirmed 10/13/22] wuhfieicwv-ymrttbtdwlvpm-seyjwlwe 50 mg-325 mg-40 mg tablet 1 tab PO Q6H PRN Migraine Headache 06/03/22 [History Confirmed 10/13/22] clonidine HCl 0.1 mg tablet 0.05 mg PO BID 06/03/22 [History Confirmed 10/13/22] oxycodone 5 mg capsule 15 mg PO Q6H PRN Pain (Scale Score 7-10) 06/03/22 [History Confirmed 10/13/22] oxymetazoline 0.05 % nasal drops 1 drp intranasal BID PRN Congestion 06/03/22 [History Confirmed 10/13/22] prednisone 5 mg tablet 5 mg PO DAILY 06/03/22 [History Confirmed 10/13/22] Hizintra 15 g SUBCUT QWEEK 08/25/22 [History Confirmed 10/13/22] fluticasone 500 mcg-salmeterol 50 mcg/dose blistr powdr for inhalation (Advair Diskus) 1 inh inhalation Q12H 08/25/22 [History Confirmed 10/13/22] aluminum-mag hydroxide-simethicone 200 mg-200 mg-20 mg/5 mL oral susp (Mag-Al Plus) 30 ml PO Q6HR PRN Dyspepsia #355 mL 08/28/22 [Rx Confirmed 10/13/22] calcium carbonate 200 mg calcium (500 mg) chewable tablet 1,000 mg PO Q4HR PRN Dyspepsia #60 tabs 08/28/22 [Rx Confirmed 10/13/22] docusate sodium 100 mg capsule 100 mg PO BID #60 caps 08/28/22 [Rx Confirmed 10/13/22] furosemide 40 mg tablet 40 mg PO 0800,1700 #60 tabs 08/28/22 [Rx Confirmed 10/13/22] potassium chloride 20 mEq/15 mL oral liquid 20 meq (15 mL) PO BIDWM #250 mL 08/28/22 [Rx Confirmed 10/13/22] sennosides 8.6 mg tablet (senna) 17.2 mg PO BEDTIME #60 tabs 08/28/22 [Rx Confirmed 10/13/22] fentanyl 12 mcg/hr transdermal patch 12 mcg transdermal SEEINSTR 10/13/22 [History Confirmed 10/13/22] warfarin 1 mg tablet 1 mg PO DAILY 10/13/22 [History Confirmed 10/13/22] Visit Medications (administered) Generic Name Dose Route Start Last Admin Trade Name Boris PRN Reason Stop Dose Admin Acetaminophen 650 mg 10/13/22 12:32 10/13/22 23:12 Acetaminophen 325 Mg Tablet PO 650 mg Q6H PRN Administration Fever/Mild Pain (1-3) Albuterol/Ipratropium 3 ml 10/14/22 08:00 10/14/22 07:51 Albuterol/Ipratropium 3 Ml Ampul INH 3 ml RTBID CARMELO Administration Atorvastatin Calcium 40 mg 10/13/22 21:00 10/13/22 21:23 Atorvastatin 20 Mg Tablet PO 40 mg BEDTIME CARMELO Administration Clonidine HCl 0.05 mg 10/13/22 21:00 10/14/22 09:28 Clonidine 0.1 Mg Tablet PO Not Given BID CARMELO Docusate Sodium 100 mg 10/13/22 21:00 10/14/22 09:28 Docusate 100 Mg Capsule PO Not Given BID CARMELO Duloxetine HCl 30 mg 10/14/22 09:00 10/14/22 09:28 Duloxetine 30 Mg Capsule PO Not Given DAILY CARMELO Fentanyl 12 mcg 10/14/22 09:00 10/14/22 08:43 Fentanyl 12 Mcg/Patch TOP 12 mcg Q72H CARMELO Administration Fentanyl 25 mcg 10/14/22 09:00 10/14/22 08:43 Fentanyl 25 Mcg/Patch TOP 25 mcg Q72H CARMELO Administration Ferrous Sulfate 325 mg 10/13/22 21:00 10/13/22 21:24 Ferrous Sulfate 325 Mg Tablet PO 325 mg BEDTIME CARMELO Administration Furosemide 20 mg 10/14/22 09:00 10/14/22 09:19 Furosemide 20 Mg/2 Ml Vial IV 20 mg BID CARMELO Administration Guaifenesin 1,200 mg 10/13/22 21:00 10/14/22 09:29 Guaifenesin Er 600 Mg Tab PO Not Given BID CARMELO Hydralazine HCl 10 mg 10/13/22 22:09 10/13/22 22:19 Hydralazine 20 Mg/Ml Vial IV 10 mg Q6HR PRN Administration Hypertension (SBP over 170) Azithromycin 500 mg/ Dextrose 250 mls @ 250 mls/hr 10/13/22 13:00 10/13/22 14:27 IV 10/15/22 13:59 250 mls/hr Q24H [facility] Administration Cefepime HCl 2 gm/ Sodium 100 mls @ 200 mls/hr 10/13/22 14:00 10/14/22 02:25 Chloride IV Infused Q12H [facility] Infusion Insulin Glargine 30 unit 10/14/22 08:00 10/14/22 07:43 Insulin Glargine 100 Unit/Ml 3ml Pen SUBCUT 30 unit 0800 [facility] Administration Insulin Human Lispro 0 unit 10/13/22 16:45 10/14/22 07:33 Insulin Lispro 100 Unit/Ml 3ml Vial SUBCUT Not Given ACHS [facility] Protocol Levothyroxine Sodium 75 mcg 10/14/22 06:00 10/14/22 08:26 Levothyroxine 75 Mcg Tablet PO Not Given DAILY@0600 [facility] Loratadine 10 mg 10/14/22 09:00 10/14/22 09:29 Loratadine 10 Mg Tablet PO Not Given DAILY [facility] Melatonin 6 mg 10/13/22 12:30 10/13/22 23:12 Melatonin 3 Mg Tablet PO 6 mg BEDTIME PRN Administration Insomnia Montelukast Sodium 10 mg 10/13/22 21:00 10/13/22 21:21 Montelukast 10 Mg Tablet PO 10 mg BEDTIME [facility] Administration Morphine Sulfate 2 mg 10/13/22 23:42 10/14/22 01:33 Morphine 2 Mg/Ml Inj IV 2 mg Q1HR PRN Administration pain Nortriptyline HCl 25 mg 10/13/22 21:00 10/13/22 21:22 Nortriptyline Hcl 25 Mg Capsule PO 25 mg BEDTIME CARMELO Administration Ondansetron HCl 4 mg 10/13/22 22:09 10/13/22 22:19 Ondansetron 4 Mg/2 Ml Inj IV 4 mg Q4HR PRN Administration Nausea And Vomiting Pantoprazole Sodium 40 mg 10/13/22 21:00 10/14/22 09:[address] 40 Mg Tablet PO Not Given BID [facility] Potassium Chloride 20 meq 10/13/22 17:00 10/14/22 09:28 Potassium Chloride 20 Meq/15 Ml Udc PO Not Given BIDWM [facility] Pramipexole Dihydrochloride 0.5 mg 10/13/22 21:00 10/13/22 21:22 Pramipexole 0.25 Mg Tablet PO 0.5 mg BEDTIME CARMELO Administration Sennosides 17.2 mg 10/13/22 21:00 10/13/22 21:22 Sennosides 8.6 Mg Tablet PO 17.2 mg BEDTIME CARMELO Administration Tizanidine HCl 4 mg 10/13/22 16:08 10/13/22 23:12 Tizanidine 4 Mg Tablet PO 4 mg QID PRN Administration Muscle Spasm Warfarin Sodium 1 mg 10/13/22 17:46 10/13/22 17:58 Warfarin 1 Mg Tablet PO 1 mg DAILY@1700 CARMELO Administration Exam Vital Signs (past 8 hours): - 10/14/22 04:00 10/14/22 07:34 10/14/22 07:51 Temperature 99.3 F Pulse Rate 97 H 105 H 104 H Respiratory Rate 22 26 H 24 Blood Pressure 113/54 L 137/70 Pulse Oximetry 95 95 95 Oxygen Delivery Method Heated High Flow Oxygen Flow Rate 40 40 Fraction of Inspired Oxygen 0.65 65 10/14/22 07:59 10/14/22 07:00 Temperature 98.8 F Pulse Rate 103 H Respiratory Rate 27 H Blood Pressure 137/70 Pulse Oximetry 98 Oxygen Delivery Method Heated High Flow Oxygen Flow Rate 40 Fraction of Inspired Oxygen Fraction of Inspired Oxygen 65 SaO2/FiO2 Ratio 146 Oxygen Delivery Method Heated High Flow Oxygen Flow Rate 40 Narrative Exam Narrative: Confuse and toxic appearing. On HFNC. Objective Labs 10/14/22 06:45 10/14/22 06:45 Labs: Laboratory Results - last 24 hr 10/13/22 10/13/22 10/13/22 10:20 10:20 10:20 WBC 15.4 H RBC 4.01 Hgb 11.3 L Hct 34.4 L MCV 85.8 MCH 28.0 MCHC 32.7 RDW 19.2 H Plt Count 412 H Neut % (Auto) 86.4 H Lymph % (Auto) 6.2 L Cooper % (Auto) 6.6 Eos % (Auto) 0.0 L Baso % (Auto) 0.8 Neut # (Auto) 65679 H Lymph # (Auto) 900 L Cooper # (Auto) 1000 H Eos # (Auto) 0 Baso # (Auto) 100 Total Counted Seg Neutrophils % Band Neutrophils % Lymphocytes % (Manual) Atypical Lymphs % Monocytes % (Manual) Neutrophils # (Manual) RBC Morphology Anisocytosis PT 30.0 H INR 2.6 H APTT ABG pH ABG pCO2 ABG pO2 ABG HCO3 ABG Total CO2 ABG O2 Saturation ABG Base Excess FiO2 Sodium 136 L Potassium 3.7 Chloride 98 Carbon Dioxide 31 BUN 13 Creatinine 0.67 Estimated GFR > 60 BUN/Creatinine Ratio 19.4 Glucose 129 H Lactate Calcium 9.1 Magnesium Total Bilirubin 0.8 AST 24 ALT 17 Alkaline Phosphatase 87 Total Creatine Kinase 38 Troponin I 0.027 NT-Pro-B Natriuret Pep 3730 H Total Protein 7.8 Albumin 3.8 Globulin 4.0 Albumin/Globulin Ratio 1.0 Procalcitonin 0.09 Urine Color Urine Appearance Urine pH Ur Specific [place] Urine Protein Urine Glucose (UA) Urine Ketones Urine Occult Blood Urine Nitrate Urine Bilirubin Urine Urobilinogen Ur Leukocyte Esterase Urine RBC Urine WBC Ur Squamous Epith Cells Urine Bacteria Ur Culture Indicated? Nasal Screen MRSA (PCR) Chlamy pneumoniae PCR Adenovirus (PCR) B. pertussis DNA (PCR) B.parapertussis DNA PCR Coronavirus OC43 (PCR) Coronavirus HKU1 (PCR) Coronavirus 229E (PCR) SARS-CoV-2 (PCR) Coronavirus NL63 (PCR) Human Metapneumovir PCR Influenza Type A (PCR) Influenza Type B (PCR) M. pneumoniae (PCR) Parainfluenza 1 (PCR) Parainfluenza 2 (PCR) Parainfluenza 3 (PCR) Parainfluenza 4 (PCR) RSV (PCR) Entero/Rhino (PCR) 10/13/22 10/13/22 10/13/22 10:20 10:20 10:20 WBC RBC Hgb Hct MCV MCH MCHC RDW Plt Count Neut % (Auto) Lymph % (Auto) Cooper % (Auto) Eos % (Auto) Baso % (Auto) Neut # (Auto) Lymph # (Auto) Cooper # (Auto) Eos # (Auto) Baso # (Auto) Total Counted Seg Neutrophils % Band Neutrophils % Lymphocytes % (Manual) Atypical Lymphs % Monocytes % (Manual) Neutrophils # (Manual) RBC Morphology Anisocytosis PT INR APTT 45 H ABG pH ABG pCO2 ABG pO2 ABG HCO3 ABG Total CO2 ABG O2 Saturation ABG Base Excess FiO2 Sodium Potassium Chloride Carbon Dioxide BUN Creatinine Estimated GFR BUN/Creatinine Ratio Glucose Lactate 1.8 Calcium Magnesium 1.7 Total Bilirubin AST ALT Alkaline Phosphatase Total Creatine Kinase Troponin I NT-Pro-B Natriuret Pep Total Protein Albumin Globulin Albumin/Globulin Ratio Procalcitonin Urine Color Urine Appearance Urine pH Ur Specific [place] Urine Protein Urine Glucose (UA) Urine Ketones Urine Occult Blood Urine Nitrate Urine Bilirubin Urine Urobilinogen Ur Leukocyte Esterase Urine RBC Urine WBC Ur Squamous Epith Cells Urine Bacteria Ur Culture Indicated? Nasal Screen MRSA (PCR) Chlamy pneumoniae PCR Adenovirus (PCR) B. pertussis DNA (PCR) B.parapertussis DNA PCR Coronavirus OC43 (PCR) Coronavirus HKU1 (PCR) Coronavirus 229E (PCR) SARS-CoV-2 (PCR) Coronavirus NL63 (PCR) Human Metapneumovir PCR Influenza Type A (PCR) Influenza Type B (PCR) M. pneumoniae (PCR) Parainfluenza 1 (PCR) Parainfluenza 2 (PCR) Parainfluenza 3 (PCR) Parainfluenza 4 (PCR) RSV (PCR) Entero/Rhino (PCR) 10/13/22 10/13/22 10/13/22 10:25 12:15 12:44 WBC RBC Hgb Hct MCV MCH MCHC RDW Plt Count Neut % (Auto) Lymph % (Auto) Cooper % (Auto) Eos % (Auto) Baso % (Auto) Neut # (Auto) Lymph # (Auto) Cooper # (Auto) Eos # (Auto) Baso # (Auto) Total Counted Seg Neutrophils % Band Neutrophils % Lymphocytes % (Manual) Atypical Lymphs % Monocytes % (Manual) Neutrophils # (Manual) RBC Morphology Anisocytosis PT INR APTT ABG pH 7.51 H ABG pCO2 37.8 ABG pO2 53 L ABG HCO3 30 H ABG Total CO2 31 H ABG O2 Saturation 90 L ABG Base Excess 7.0 H FiO2 45 Sodium Potassium Chloride Carbon Dioxide BUN Creatinine Estimated GFR BUN/Creatinine Ratio Glucose Lactate Calcium Magnesium Total Bilirubin AST ALT Alkaline Phosphatase Total Creatine Kinase Troponin I NT-Pro-B Natriuret Pep Total Protein Albumin Globulin Albumin/Globulin Ratio Procalcitonin Urine Color Yellow Urine Appearance Cloudy Urine pH 8.5 H Ur Specific [place] 1.015 Urine Protein 1+ H Urine Glucose (UA) Negative Urine Ketones Negative Urine Occult Blood Negative Urine Nitrate Negative Urine Bilirubin Negative Urine Urobilinogen 0.2 Ur Leukocyte Esterase Trace H Urine RBC None seen Urine WBC 1-5/hpf Ur Squamous Epith Cells 10-30 /hpf H D Urine Bacteria Many (>30) H Ur Culture Indicated? Specimen cultured Nasal Screen MRSA (PCR) Chlamy pneumoniae PCR Not detected Adenovirus (PCR) Not detected B. pertussis DNA (PCR) Not detected B.parapertussis DNA PCR Not detected Coronavirus OC43 (PCR) Not detected Coronavirus HKU1 (PCR) Not detected Coronavirus 229E (PCR) Not detected SARS-CoV-2 (PCR) Not detected Coronavirus NL63 (PCR) Not detected Human Metapneumovir PCR Not detected Influenza Type A (PCR) Not detected Influenza Type B (PCR) Not detected M. pneumoniae (PCR) Not detected Parainfluenza 1 (PCR) Not detected Parainfluenza 2 (PCR) Not detected Parainfluenza 3 (PCR) Not detected Parainfluenza 4 (PCR) Not detected RSV (PCR) Not detected Entero/Rhino (PCR) Not detected 10/13/22 10/14/22 10/14/22 17:39 06:45 06:45 WBC 17.6 H RBC 4.07 Hgb 11.4 L Hct 34.8 L MCV 85.6 MCH 28.0 MCHC 32.7 RDW 19.4 H Plt Count 424 H Neut % (Auto) Not Reportable Lymph % (Auto) Not Reportable Cooper % (Auto) Not Reportable Eos % (Auto) Not Reportable Baso % (Auto) Not Reportable Neut # (Auto) Lymph # (Auto) Not Reportable Cooper # (Auto) Not Reportable Eos # (Auto) Baso # (Auto) Not Reportable Total Counted 100 Seg Neutrophils % 91.0 H Band Neutrophils % 3.0 Lymphocytes % (Manual) 2.0 L Atypical Lymphs % 2.0 H Monocytes % (Manual) 2.0 Neutrophils # (Manual) 53806 H RBC Morphology Not Reportable Anisocytosis 1+ H PT INR APTT ABG pH ABG pCO2 ABG pO2 ABG HCO3 ABG Total CO2 ABG O2 Saturation ABG Base Excess FiO2 Sodium 134 L Potassium 4.1 Chloride 98 Carbon Dioxide 32 BUN 16 Creatinine 0.81 Estimated GFR > 60 BUN/Creatinine Ratio 19.8 Glucose 105 Lactate Calcium 8.7 Magnesium Total Bilirubin AST ALT Alkaline Phosphatase Total Creatine Kinase Troponin I NT-Pro-B Natriuret Pep Total Protein Albumin Globulin Albumin/Globulin Ratio Procalcitonin 2.47 H Urine Color Urine Appearance Urine pH Ur Specific [place] Urine Protein Urine Glucose (UA) Urine Ketones Urine Occult Blood Urine Nitrate Urine Bilirubin Urine Urobilinogen Ur Leukocyte Esterase Urine RBC Urine WBC Ur Squamous Epith Cells Urine Bacteria Ur Culture Indicated? Nasal Screen MRSA (PCR) Not detected Chlamy pneumoniae PCR Adenovirus (PCR) B. pertussis DNA (PCR) B.parapertussis DNA PCR Coronavirus OC43 (PCR) Coronavirus HKU1 (PCR) Coronavirus 229E (PCR) SARS-CoV-2 (PCR) Coronavirus NL63 (PCR) Human Metapneumovir PCR Influenza Type A (PCR) Influenza Type B (PCR) M. pneumoniae (PCR) Parainfluenza 1 (PCR) Parainfluenza 2 (PCR) Parainfluenza 3 (PCR) Parainfluenza 4 (PCR) RSV (PCR) Entero/Rhino (PCR) 10/14/22 06:45 WBC RBC Hgb Hct MCV MCH MCHC RDW Plt Count Neut % (Auto) Lymph % (Auto) Cooper % (Auto) Eos % (Auto) Baso % (Auto) Neut # (Auto) Lymph # (Auto) Cooper # (Auto) Eos # (Auto) Baso # (Auto) Total Counted Seg Neutrophils % Band Neutrophils % Lymphocytes % (Manual) Atypical Lymphs % Monocytes % (Manual) Neutrophils # (Manual) RBC Morphology Anisocytosis PT 39.4 H D INR 3.4 H APTT ABG pH ABG pCO2 ABG pO2 ABG HCO3 ABG Total CO2 ABG O2 Saturation ABG Base Excess FiO2 Sodium Potassium Chloride Carbon Dioxide BUN Creatinine Estimated GFR BUN/Creatinine Ratio Glucose Lactate Calcium Magnesium Total Bilirubin AST ALT Alkaline Phosphatase Total Creatine Kinase Troponin I NT-Pro-B Natriuret Pep Total Protein Albumin Globulin Albumin/Globulin Ratio Procalcitonin Urine Color Urine Appearance Urine pH Ur Specific [place] Urine Protein Urine Glucose (UA) Urine Ketones Urine Occult Blood Urine Nitrate Urine Bilirubin Urine Urobilinogen Ur Leukocyte Esterase Urine RBC Urine WBC Ur Squamous Epith Cells Urine Bacteria Ur Culture Indicated? Nasal Screen MRSA (PCR) Chlamy pneumoniae PCR Adenovirus (PCR) B. pertussis DNA (PCR) B.parapertussis DNA PCR Coronavirus OC43 (PCR) Coronavirus HKU1 (PCR) Coronavirus 229E (PCR) SARS-CoV-2 (PCR) Coronavirus NL63 (PCR) Human Metapneumovir PCR Influenza Type A (PCR) Influenza Type B (PCR) M. pneumoniae (PCR) Parainfluenza 1 (PCR) Parainfluenza 2 (PCR) Parainfluenza 3 (PCR) Parainfluenza 4 (PCR) RSV (PCR) Entero/Rhino (PCR) Assessment & Plan Assessment & Plan narrative: NEURO: # Acute encephalopathy -- Secondary to sepsis and hypoxemia -- Avoid sedatives -- Seek early mobility -- Cont frequent reorientation RESP: # Acute hypoxemia respiratory failure -- Secondary to PNA vs aspiration -- Recommend adding vancomycin and switching azithromycin to levaquin -- Check resp cx -- HOB elevaton -- Aspiration precaution -- Strict NPO -- On HFNC -- Cont gentle diuresis to seek net negative fluid balance -- Goal SpO2 > 88% CVS: # Hx of HFpEF -- STrict I/O -- Cont gentle diuresis # Hx of A fib -- On couamdin -- Pharmacy to dose warfarin to seek goal INR 2-3 ENDO: -- Goal BS < 180 D/w Dr. Menjivar and bedside RN Andrea. Time Spent With Patient Time with patient: 30 to 49 minutes with 50% spent counseling/coordinating care
[2022-10-14] MEDS: ONDANSETRON 4 MG/2 ML INJ IV ×2 (10:27→17:05)
[2022-10-14] MEDS: levoFLOXacin 750 MG/150 ML PIGGYBACK 100 MG IV (10:28)
[2022-10-14] MEDS: VANCOMYCIN 1,000 MG/200 ML PIGGYBACK 200 MG IV ×2 (11:51→23:09)
--- NOTE | 2022-10-14 12:01 | CM.DANOTE ---
Patient is a 72 year old female who admitted 10/13/22 to the care of the hospitalist team for pneumonia. PCP: Dr. Porter. Payer: confirmed: [facility] [employer]. Pt had a recent admission from 08/25-08/28/22 and [facility] Patient came to the hospital via ambulance due to Sepsis secondary to chronic pneumonia and being immunosupressed at baseline. Notes indicate that patient was at [facility] for IVC filter placed for PE in July/August this year. Patient is normally on home oxygen, between 3-4 liters. Per MD, pt is somewhat encephalopathic due to oxygen needs and sepsis and remains somewhat confused but seems to be making some improvements and currently on HHFNC down from 50L to 40L. Not yet medically stable to discharge. DNR/DNI. Due to pt's confusion and frequent admits, met with spouse, Harjeet Zavala at bedside and he confirms that they both reside here in [place]. She has home oxygen through [employer] and has been 3-4L during the day and 5L at night but has needed to remain on 5L around the clock to maintain sats. She has been with [facility], indicated that RN and P.T. recently discharged her, but O.T. still in. Spouse is hopeful for d/c back to home with [employer] and states they have a w/c at home for longer distances as pt desats quickly, 4WW and now a 3W knee scooter. Pt typically able to ambulate short distances but fatigues/desats quickly and pt does not drive due to oxygen needs and spouse provides transportation and assist as needed. Pt has not had any SNF hx and has been able to return home with spouse assist and HH historically and spouse is hopeful and anticipates d/c to home at discharge. Spouse is supportive, is a retired ortho PAC and has been assisting pt with her chronic pain and attempts at steroid injections for her knees etc.. Spouse states they are hopeful to enjoy some of the summer months but so far this year pt has been either admitted to the hospital or in the ED for multiple medical reasons. SW faxed initial clinicals to [facility] to review and left msg updating them that pt was admitted and likely will need Resume HH at discharge. Plan: SW to follow for likely PT/OT eval when pt more medically appropriate and weaned off HHFNC O2 to confirm safe d/c to home with spouse assist and Resume [facility] OT with maybe adding additional disciplines. MACKENZIE Love Discharge Planning/Care Management CM Discharge Assessment Start: 10/14/22 11:59 Freq: Status: Active Protocol: Document 10/14/22 11:59 BF (Rec: 10/14/22 12:01 BF [id number]) Discharge Planning Assessment Assigned Mortgage Loan Originator MACKENZIE Pinto DPOA/Assigned Designee Name spouse Harjeet Contact Information [phone] Advance Directives? Yes: Advance Directive Advance Directives on File No History Provided By Patient,Significant Other, Medical Record Has Patient been admitted in last 30 No days? Comment last admission 08/25-08/28/22 Prior Living Arrangements House Household Members spouse Type of transporation used prior to Relies on Others admit Independent with ADL's No Is patient alert and oriented? Yes Needs Assistance With Bathing,Meal Prep,Managing Medications,Home Chores / Shopping Caregiver for Another No Community Services used prior to Oxygen Therapy,Occupational admission: Therapy Comment Open with [facility] OT DME Already Rented / Owned Bath Bench,Wheelchair,FWW / Walker,Oxygen Comment Has shower chair as well, home oxygen is through [employer] Patient/Family Preference Home with Home Health Comment Likely [facility] pending progress Barriers to Discharge No Comment medically and physically fragile. return home w/spouse, who is a retired Orthopedic PA-C Discharge Plan Home with Home Health Community Services Oxygen Therapy,Occupational Therapy,Home Health Aid Transportation Arrangement Spouse bedside and can provide transport home when stable Referrals Initiated None needed Additional Comment resumption of [facility] services , may need to reinstate RN, P. T. If patient plan is home with home health No: not needed for Resumption : Has signed face to face form been completed? Whiteboard Updated in Patient Room with Yes name and ext. # of Mortgage Loan Originator Review Status In Process Please Provide Date Initial DC 10/14/22 Assessment Was Performed Next Review Type Continued Stay Review
[2022-10-14] MEDS: WARFARIN 1 MG TABLET PO (17:05)
[2022-10-14] MEDS: POTASSIUM CHLORIDE 20 MEQ/15 ML UDC PO (17:06)
--- NOTE | 2022-10-14 20:47 | PC.NURSE ---
Addendum entered by Benjamin Bernal R.N. 10/15/22 06:35: Patient's chief complaint over night has been persistent abdominal pain and nausea. Ordered pain meds and zofran seem to do little. Patient is also hypertensive with A-fib in the 100s-130s. Original Note: upon assessment this evening patient indicated that she was unable to take Warfarin that was given at 1708. medication found and disposed of.
--- NOTE | 2022-10-14 20:57 | P.ICUMDRN_ITS ---
- Date Patient Seen: 11/14/22 :: This patient was seen via real time interactive two-way audiovisual telecommunic ation. 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 CAMERA: Sleeping Remains on 40L 40% HFNC RN reports nausea --> she has many PO meds for tonight; PRN Zofran of mild help Also w/ mild LLQ pain INTERVENTIONS: -Changed essential PO meds to IV equivalent; discontinued other non-essential PO meds -Ordered procalcitonin/MRSA swab for AM -INR level needs to watched --> approaching 3.5
[2022-10-14] MEDS: PANTOPRAZOLE 40 MG VIAL IV (21:38)
[2022-10-14] MEDS: HYDRALAZINE 20 MG/ML VIAL 10 MG IV (22:20)
[2022-10-14] MEDS: HYDROMORPHONE 0.5 MG INJ 0.2 MG IV (23:21)
[2022-10-15] VITALS (63 sets, daily range): BP systolic 101–196; BP diastolic 52–114; PULSE 88–138; RESP 17–44; TEMP 36.4–36.7; O2SAT 88–100
[2022-10-15] MEDS: ONDANSETRON 4 MG/2 ML INJ IV ×3 (00:20→16:25)
[2022-10-15] MEDS: HYDROMORPHONE 0.5 MG INJ IV (00:23)
[2022-10-15] MEDS: TIZANIDINE 4 MG TABLET PO ×2 (01:13→20:19)
[2022-10-15] MEDS: CEFEPIME 2 GM in SODIUM CHLORIDE 0.9% 100 ML IV ×2 (02:08→14:53)
--- NOTE | 2022-10-15 02:51 | PM.EICU.INT ---
Teleintensivist Intervention Date/Time Was camera activated?: No Issue(s) Addressed Issue(s): Hypertension and IV to PO or other drug route switch Intervention(s) :: patient states she does better with morphine over dilaudid despite higher dose. started morphine 2mg q4 prn , dilaudid discontinued bp remains elevated. adjsut prn hydralazine dose advised nurse to give pain control first then treat bp Plan discussed with: Nurse
[2022-10-15] MEDS: MORPHINE 2 MG/ML INJ IV ×4 (03:05→20:56)
[2022-10-15 05:01] LABS: Add Manual Diff / Slide Review NO; Basophils Absolute Auto 100 /uL (0-100); Basophils Percent Auto 0.4 % (0-2); Eosinophils Absolute Auto 0 /uL (0-450); Hematocrit 36.6 % (36-46); Hemoglobin 12.2 g/dL (12.0-16.0); Lymphocytes Absolute Auto 700 /uL (1100-4500); Lymphocytes Percent Auto 5.4 % (25-40); Mean Corpuscular HGB Conc 33.3 % (30-36); Mean Corpuscular Hemoglobin 28.3 PG (26-34); Monocytes Absolute Auto 1000 /uL (0-900); Neutrophils Absolute Auto 11800 /uL (1500-7000); Neutrophils Percent Auto 87.2 % (50-75); Platelet Count 396 X10^3/uL (150-400); Red Cell Distribution Width 18.9 % (11.6-14.8); White Blood Cell Count 13.6 X10^3/uL (4.5-11.0)
[2022-10-15 05:03] LABS: INR 3.4 (0.9-1.3); Prothrombin Time 39.9 SECONDS (10.1-12.7)
[2022-10-15 05:10] LABS: HEMOLYSIS < 15 (0-50)
[2022-10-15 05:11] LABS: BUN Creatinine Ratio 21.3 (6-22); Blood Urea Nitrogen 16 mg/dL (7-17); Calcium 8.6 mg/dL (8.4-10.2); Carbon Dioxide 29 mmol/L (22-32); Chloride 95 mmol/L (98-107); Estimated Glomerular Filt Rate > 60 mL/min (>60); Glucose 106 mg/dL (80-110); Sodium 132 mmol/L (137-145)
[2022-10-15] MEDS: HYDRALAZINE 20 MG/ML VIAL 10 MG IV (05:12)
[2022-10-15 05:26] LABS: Procalcitonin 2.11 ng/mL (<0.5)
[2022-10-15 05:34] LABS: Potassium 3.4 mmol/L (3.4-5.1)
--- NOTE | 2022-10-15 07:18 | P.PN_ITS ---
Subjective Subjective Interval history: 71-year-old female with common variable immunodeficiency with Q three-week IVIG infusions and prednisone, AFib on warfarin anticoagulation previously complicated by hematoma development, previous PE with IVC filter in place, heart failure with preserved ejection fraction, NSTEMI in January 2022, obstructive sleep apnea, diabetes mellitus type 2, asthma, chronic hip and back pain on fentanyl patch, hypothyroidism, hypertension, hyperlipidemia, multiple prior episodes of pneumonia with Pseudomonas, stenotrophomonas, and MRSA who is on chronic azithromycin as well as chronic hypoxic respiratory failure on 5 L nasal cannula who was admitted with sepsis secondary to right lower lobe pneumonia in the setting of chronic immunodeficiency, as well as acute on chronic hypoxic respiratory failure. Patient began clearing cognitively a bit more yesterday afternoon. RN did a bedside swallow screen which she passed. She was placed on a dysphagia diet. She reports she did not get much sleep last night. fashion designer nurse reported she complained of abdominal pain and nausea for most of the night. To me, she is complaining of just feeling poorly in general. She reports she is coughing up some bloody sputum. She reports her breathing is about the same overall. Sh e does report her legs are somewhat improved today. Exam Vital Signs (past 8 hours): - 10/14/22 23:42 10/15/22 00:00 10/15/22 00:00 Temperature 97.6 F Pulse Rate 106 H 105 H 105 H Respiratory Rate 30 H 25 H 25 H Blood Pressure 172/84 H Pulse Oximetry 96 95 95 Oxygen Flow Rate 40 40 Fraction of Inspired Oxygen 10/15/22 00:00 10/15/22 01:01 10/15/22 01:01 Temperature Pulse Rate 108 H Respiratory Rate 34 H Blood Pressure 172/84 H 161/73 H Pulse Oximetry 97 Oxygen Flow Rate 40 40 40 Fraction of Inspired Oxygen 10/15/22 01:03 10/15/22 02:00 10/15/22 02:00 Temperature Pulse Rate 104 H 113 H Respiratory Rate 24 28 H Blood Pressure 196/95 H Pulse Oximetry 97 96 Oxygen Flow Rate 40 Fraction of Inspired Oxygen 10/15/22 02:10 10/15/22 04:00 10/15/22 02:11 Temperature 97.6 F Pulse Rate 114 H 113 H 118 H Respiratory Rate 28 H 26 H 24 Blood Pressure 165/109 H Pulse Oximetry 95 96 95 Oxygen Flow Rate 40 Fraction of Inspired Oxygen 0.44 10/15/22 02:11 10/15/22 03:01 10/15/22 03:01 Temperature Pulse Rate 110 H Respiratory Rate 28 H Blood Pressure 181/71 H 178/83 H Pulse Oximetry 96 Oxygen Flow Rate 40 40 40 Fraction of Inspired Oxygen 10/15/22 04:01 10/15/22 04:01 10/15/22 04:29 Temperature Pulse Rate 113 H 107 H Respiratory Rate 35 H 32 H Blood Pressure 165/109 H Pulse Oximetry 96 95 Oxygen Flow Rate 40 40 40 Fraction of Inspired Oxygen 10/15/22 05:00 10/15/22 05:00 10/15/22 05:04 Temperature Pulse Rate 110 H 112 H Respiratory Rate 22 29 H Blood Pressure 184/93 H Pulse Oximetry 97 97 Oxygen Flow Rate 40 40 40 Fraction of Inspired Oxygen 10/15/22 05:12 10/15/22 05:38 10/15/22 01:00 Temperature Pulse Rate 112 H 122 H Respiratory Rate 22 Blood Pressure 181/77 H 155/64 H Pulse Oximetry Oxygen Flow Rate Fraction of Inspired Oxygen 10/15/22 05:08 10/15/22 05:08 10/15/22 05:38 Temperature Pulse Rate 106 H 121 H Respiratory Rate 22 27 H Blood Pressure 181/77 H Pulse Oximetry 97 96 Oxygen Flow Rate 40 40 40 Fraction of Inspired Oxygen 10/15/22 05:38 10/15/22 06:01 10/15/22 06:01 Temperature Pulse Rate 137 H Respiratory Rate 30 H Blood Pressure 155/64 H 154/114 H Pulse Oximetry 95 Oxygen Flow Rate 40 40 40 Fraction of Inspired Oxygen 10/15/22 06:09 Temperature Pulse Rate 120 H Respiratory Rate 33 H Blood Pressure Pulse Oximetry 94 Oxygen Flow Rate 40 Fraction of Inspired Oxygen Fraction of Inspired Oxygen 0.44 SaO2/FiO2 Ratio 146 Oxygen Delivery Method Heated High Flow Oxygen Flow Rate 40 Narrative Exam Narrative: GEN: Alert and oriented x 2-3, acutely and chronically ill-appearing HEENT:NC, Face symmetric CHEST: Respiratory excursions symmetric, inspiratory wheeze heard in the right anterior lung field, bibasilar crackles, otherwise coarse but clear CV:?Tachycardic, irregularly irregular, no M/R/G ABD: Soft, NT/ND, BT present but hypoactive in all 4 quadrants, body habitus limits exam EXTR:? Erythema to the bilateral lower extremities in the pretibial area is improved today, warm, well perfused, no C/C/E, significant wrinkling to the skin of the lower extremities consistent with venous stasis changes SKIN: warm and dry, no rash NEURO: Alert and oriented x 2-3, moving all extremities Objective Labs 10/15/22 04:44 10/15/22 04:44 Labs: Laboratory Results - last 24 hr 10/14/22 10/14/22 10/15/22 06:45 06:45 04:44 WBC 13.6 H RBC 4.30 Hgb 12.2 Hct 36.6 MCV 85.0 MCH 28.3 MCHC 33.3 RDW 18.9 H Plt Count 396 Neut % (Auto) 87.2 H Lymph % (Auto) 5.4 L [place] % (Auto) 7.0 Eos % (Auto) 0.0 L Baso % (Auto) 0.4 Neut # (Auto) 26313 H Lymph # (Auto) 700 L [place] # (Auto) 1000 H Eos # (Auto) 0 Baso # (Auto) 100 Total Counted 100 Seg Neutrophils % 91.0 H Band Neutrophils % 3.0 Lymphocytes % (Manual) 2.0 L Atypical Lymphs % 2.0 H Monocytes % (Manual) 2.0 Neutrophils # (Manual) 73810 H RBC Morphology Not Reportable Anisocytosis 1+ H PT INR Sodium Potassium Chloride Carbon Dioxide BUN Creatinine Estimated GFR BUN/Creatinine Ratio Glucose Calcium Procalcitonin 2.47 H 10/15/22 10/15/22 10/15/22 04:44 04:44 04:44 WBC RBC Hgb Hct MCV MCH MCHC RDW Plt Count Neut % (Auto) Lymph % (Auto) [place] % (Auto) Eos % (Auto) Baso % (Auto) Neut # (Auto) Lymph # (Auto) [place] # (Auto) Eos # (Auto) Baso # (Auto) Total Counted Seg Neutrophils % Band Neutrophils % Lymphocytes % (Manual) Atypical Lymphs % Monocytes % (Manual) Neutrophils # (Manual) RBC Morphology Anisocytosis PT 39.9 H INR 3.4 H Sodium 132 L Potassium 3.4 Chloride 95 L Carbon Dioxide 29 BUN 16 Creatinine 0.75 Estimated GFR > 60 BUN/Creatinine Ratio 21.3 Glucose 106 Calcium 8.6 Procalcitonin 2.11 H REPLACED BY [facility] Medical History Abnormal chest xray (~1979) Anemia Ankle pain Anticoagulated Asthma (~1959) Bronchiectasis (~2006) Cervical spine disease Chronic back pain Colon polyps (~2015) Degenerative joint disease of spine (~2001) Diabetes mellitus, type II (~2009) Eczema Fibromyalgia Foot pain Hoarseness Hyperlipidemia Hypertension Hypothyroidism Migraines (~1964) 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 Osteopenia Pneumonia Pneumonia Recurrent sinusitis (~1970) Restless leg syndrome Shoulder pain (~03/2018) Sleep apnea Wears glasses Surgical History Anesthesia History of carpal tunnel release History of cataract removal with insertion of prosthetic lens (~2014) History of section History of laminectomy (~2002) History of spinal fusion (~2012) History of thumb surgery Family History Father Stroke Mother Hypertension Brother Cerebral aneurysm Prostate cancer Diabetes mellitus Hypertension Stroke Brother Arthritis Hyperlipidemia Hypertension Sister History of kidney cancer Hypertension Grandfather Cancer Grandmother Cancer Other Family history non-contributory Social History marital status: household members: spouse lives independently: Yes occupational status: previously employed Smoking Status: Never smoker alcohol intake: current substance use type: does not use Assessment & Plan Assessment & Plan narrative: 1. Sepsis secondary to right lower lobe pneumonia in the setting of chronic immunodeficiency On admission, she was febrile with leukocytosis and altered mental status.? She was initiated on cefepime, azithro, and vancomycin.? Azithro d/c'd and Levaquin added yesterday. White blood cell count is improved today at 13.6, down from 17.6 yesterday.? She is chronically on prednisone 5 mg daily, which puts her at lower risk for adrenal insufficiency.? No evidence of adrenal insufficiency at this time. 2. Bilateral pneumonia in a chronically immunosuppressed patient Continue cefepime, levaquin and vancomycin.? She is a history of itching with cefepime and has as needed Benadryl available.? Procalcitonin is mildly improved today, down from 2.47 to 2.11. 3. Acute on chronic hypoxic respiratory failure Remains on high-flow via nasal cannula at 40 liters/minute, stable from yesterday. Acute decompensation is secondary to pneumonia. 4. CVID Receives every 3 week doses of IVIG.? She is on Hizintra q week which has been held. 5. Acute metabolic encephalopathy [place] to be multifactorial from sepsis, pneumonia, and respiratory failure. Improving. 6. Hypomagnesemia She has had borderline hypomagnesemia with a magnesium level of 1.7 on admission.? Recheck this am is pending. 7. History of pulmonary embolism Status post IVC filter placement.? Also on warfarin anticoagulation. 8. Atrial fibrillation With RVR She is now back on warfarin anticoagulation.? INR remains supratherapeutic at 3.4. Spouse noted that when she restarted warfarin 10 days prior to admission, she was placed on 5mg. She was up to an INR>8 within 3 days. She then was started on 1mg/day. Her INR was supratherapeutic last week and it was held for a day and she was restarted again at 1mg/day. I will change her warfarin to 1 mg 5 days weekly and 0.5 mg 2 days weekly. Recheck INR in am. given her RVR this morning with heart rates in the 120 130s, as well as elevated blood pressures, will add Cardizem 30 mg q.6 hours. I deferred using a beta-ania given her known severe asthma. 9. Chronic heart failure with preserved ejection fraction Takes Lasix 40 mg twice daily.? BNP was increased at 3730 on admission.? Furosemide changed to 20 mg IV BID yesterday d/t encephalopathy. Diuresed 2175/24 hrs. Hyponatremia slightly worse today. Will plan to resume her usual oral po dose. 10. Diabetes mellitus type 2 On Lantus 30 units daily.? Hemoglobin A1c in August of this year was 6.8%.? Continue sliding scale.? She did have a low BG at 69 yesterday afternoon. Will decrease lantus to 25 units for now. Discussed with RN. If patient does not eat breakfast will hold Lantus today. 11. Chronic pain syndrome Continue usual fentanyl 37 mcg/hour as well as oxycodone 15 mg every 6 hours as needed 12. Neuropathy Continue duloxetine and amitriptyline 13. Asthma On Fasenra as an outpatient q8 wks, as well as Kerry, Jia, Jaime, and shannen. 14. Restless leg syndrome Continue Mirapex 15. Hypothyroidism Continue usual outpatient dose of levothyroxine 16. Hyperlipidemia Continue atorvastatin 17. GERD On Protonix b.i.d. 18. Class 3 obesity BMI is 41.5.? She is at significantly higher risk of morbidity and mortality related to her obesity and would benefit from weight reduction. Code status DNR DNI Prophylaxis On warfarin Disposition ICU.? Appreciate eICU consult.?
[2022-10-15] MEDS: ALBUTEROL/IPRATROPIUM 3 ML AMPUL INH ×2 (07:33→19:30)
[2022-10-15 08:00] LABS: Magnesium 1.8 mg/dL (1.6-2.3)
[2022-10-15] MEDS: PANTOPRAZOLE 40 MG VIAL IV ×2 (08:17→20:22)
[2022-10-15] MEDS: FUROSEMIDE 20 MG/2 ML VIAL IV (08:17)
[2022-10-15] MEDS: POTASSIUM CHLORIDE IN WATER 10 MEQ/100 ML PIGGYBACK 100 MEQ IV ×2 (08:18→09:13)
[2022-10-15] MEDS: dilTIAZem 30 MG TABLET PO ×3 (08:28→21:05)
--- NOTE | 2022-10-15 09:26 | P.TELICUPN_ITS ---
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 Started on oral diltiazem for HTN and A fib. FiO2 down 40%. Urine cx + pansenstivie E. coli. Resp cx pending. Current Medications Current Medications Medications: Home Medications polyethylene glycol 3350 17 gram/dose oral powder (Miralax) 17 gm PO DAILY PRN Constipation ##0 06/06/17 [History Confirmed 10/13/22] albuterol sulfate 90 mcg/actuation aerosol inhaler 2 puff inhalation Q4-6H PRN Shortness Of Breath 05/29/19 [History Confirmed 10/13/22] cholecalciferol (vitamin D3) 50 mcg (2,000 unit) tablet 2,000 unit PO DAILY 05/29/19 [History Confirmed 10/13/22] ferrous sulfate 325 mg (65 mg iron) tablet 325 mg PO BEDTIME 05/29/19 [History Confirmed 10/13/22] tizanidine 4 mg capsule 4 mg PO QID PRN Muscle Spasm 05/29/19 [History Confirmed 10/13/22] sodium chloride 3 % for nebulization 3 ml inhalation BID 06/05/19 [History Confirmed 10/13/22] ondansetron HCl 4 mg tablet (Zofran) 4 mg PO Q8H PRN nausea and vomiting #30 tabs 10/06/19 [Rx Confirmed 10/13/22] cetirizine 10 mg capsule (Zyrtec) 10 mg PO DAILY allergies 01/20/20 [History Confirmed 10/13/22] montelukast 10 mg tablet (Singulair) 10 mg PO BEDTIME 01/20/20 [History Confirmed 10/13/22] verio reflect glucometer #1 ea 01/28/20 [Rx Confirmed 10/13/22] insulin syringe-needle U-100 0.5 mL 31 gauge x 5/16 (BD Insulin Syringe Ultra- Fine) #100 ea 03/30/20 [Rx Confirmed 10/13/22] metformin 1,000 mg tablet 1,000 mg PO BID #180 tabs 09/03/20 [Rx Confirmed 10/13/22] atorvastatin 40 mg tablet 40 mg PO BEDTIME 04/20/21 [History Confirmed 10/13/22] epinephrine 0.3 mg/0.3 mL injection, auto-injector (EpiPen) 0.3 mg IM Q5-15M PRN Allergic Reaction 04/20/21 [History Confirmed 10/13/22] insulin glargine 100 unit/mL subcutaneous solution 30 unit SUBCUT QAM 04/20/21 [History Confirmed 10/13/22] insulin lispro 100 unit/mL subcutaneous pen (Humalog KwikPen (U-100) Insulin) 4 - 8 unit SUBCUT TID 04/20/21 [History Confirmed 10/13/22] ipratropium 0.5 mg-albuterol 3 mg (2.5 mg base)/3 mL nebulization soln 3 ml inhalation BID 04/20/21 [History Confirmed 10/13/22] levothyroxine 75 mcg tablet 75 mcg PO QAM 04/20/21 [History Confirmed 10/13/22] nortriptyline 25 mg capsule 25 mg PO BEDTIME 04/20/21 [History Confirmed 10/13/22] tiotropium bromide 18 mcg capsule with inhalation device (Spiriva with HandiHaler) 1 cap inhalation DAILY 04/20/21 [History Confirmed 10/13/22] lansoprazole 15 mg capsule,delayed release (Prevacid 24Hr) 30 mg PO BID 04/29/21 [History Confirmed 10/13/22] duloxetine 30 mg capsule,delayed release 30 mg PO DAILY 06/28/21 [History Confirmed 10/13/22] fluticasone 500 mcg-salmeterol 50 mcg/dose blistr powdr for inhalation (Kerry Inhub) 1 inh inhalation BID 06/28/21 [History Confirmed 10/13/22] guaifenesin 1,200 mg tablet, extended release 12 hr (Mucinex) 1,200 mg PO BID 06/28/21 [History Confirmed 10/13/22] oxycodone-acetaminophen 10 mg-325 mg tablet (Percocet) 1 tab PO Q4H PRN Pain (Scale Score 4-6) 06/28/21 [History Confirmed 10/13/22] pramipexole 0.5 mg tablet 0.5 mg PO BEDTIME 06/28/21 [History Confirmed 10/13/22] fentanyl 25 mcg/hr transdermal patch 1 patch transdermal Q72H PRN pain (scale score 1-3) #5 ea 02/05/22 [Rx Confirmed 10/13/22] omega-3 fatty acids 1,000 mg PO DAILY 04/24/22 [History Confirmed 10/13/22] benralizumab 30 mg/mL subcutaneous syringe (Fasenra) 30 mg SUBCUT Q8W 06/03/22 [History Confirmed 10/13/22] yfojalwojl-lflqiasfrxser-udfbjqcp 50 mg-325 mg-40 mg tablet 1 tab PO Q6H PRN Migraine Headache 06/03/22 [History Confirmed 10/13/22] clonidine HCl 0.1 mg tablet 0.05 mg PO BID 06/03/22 [History Confirmed 10/13/22] oxycodone 5 mg capsule 15 mg PO Q6H PRN Pain (Scale Score 7-10) 06/03/22 [History Confirmed 10/13/22] oxymetazoline 0.05 % nasal drops 1 drp intranasal BID PRN Congestion 06/03/22 [History Confirmed 10/13/22] prednisone 5 mg tablet 5 mg PO DAILY 06/03/22 [History Confirmed 10/13/22] Hizintra 15 g SUBCUT QWEEK 08/25/22 [History Confirmed 10/13/22] fluticasone 500 mcg-salmeterol 50 mcg/dose blistr powdr for inhalation (Advair Diskus) 1 inh inhalation Q12H 08/25/22 [History Confirmed 10/13/22] aluminum-mag hydroxide-simethicone 200 mg-200 mg-20 mg/5 mL oral susp (Mag-Al Plus) 30 ml PO Q6HR PRN Dyspepsia #355 mL 08/28/22 [Rx Confirmed 10/13/22] calcium carbonate 200 mg calcium (500 mg) chewable tablet 1,000 mg PO Q4HR PRN Dyspepsia #60 tabs 08/28/22 [Rx Confirmed 10/13/22] docusate sodium 100 mg capsule 100 mg PO BID #60 caps 08/28/22 [Rx Confirmed 10/13/22] furosemide 40 mg tablet 40 mg PO 0800,1700 #60 tabs 08/28/22 [Rx Confirmed 10/13/22] potassium chloride 20 mEq/15 mL oral liquid 20 meq (15 mL) PO BIDWM #250 mL 08/28/22 [Rx Confirmed 10/13/22] sennosides 8.6 mg tablet (senna) 17.2 mg PO BEDTIME #60 tabs 08/28/22 [Rx Confirmed 10/13/22] fentanyl 12 mcg/hr transdermal patch 12 mcg transdermal SEEINSTR 10/13/22 [Hist ory Confirmed 10/13/22] warfarin 1 mg tablet 1 mg PO DAILY 10/13/22 [History Confirmed 10/13/22] Visit Medications (administered) Generic Name Dose Route Start Last Admin Trade Name Freq PRN Reason Stop Dose Admin Acetaminophen 650 mg 10/13/22 12:32 10/13/22 23:12 Acetaminophen 325 Mg Tablet PO 650 mg Q6H PRN Administration Fever/Mild Pain (1-3) Albuterol/Ipratropium 3 ml 10/14/22 08:00 10/15/22 07:33 Albuterol/Ipratropium 3 Ml Ampul INH 3 ml RTBID CARMELO Administration Clonidine HCl 0.05 mg 10/13/22 21:00 10/14/22 21:31 Clonidine 0.1 Mg Tablet PO Not Given BID CARMELO Diltiazem HCl 30 mg 10/15/22 09:00 10/15/22 08:28 Diltiazem 30 Mg Tablet PO 30 mg Q6H CARMELO Administration Fentanyl 12 mcg 10/14/22 09:00 10/14/22 08:43 Fentanyl 12 Mcg/Patch TOP 12 mcg Q72H CARMELO Administration Fentanyl 25 mcg 10/14/22 09:00 10/14/22 08:43 Fentanyl 25 Mcg/Patch TOP 25 mcg Q72H CARMELO Administration Hydralazine HCl 10 mg 10/13/22 22:09 10/15/22 05:12 Hydralazine 20 Mg/Ml Vial IV 10 mg Q6HR PRN Administration Hypertension (SBP over 170) Cefepime HCl 2 gm/ Sodium 100 mls @ 200 mls/hr 10/13/22 14:00 10/15/22 02:08 Chloride IV 200 mls/hr Q12H CARMELO Administration Levofloxacin 750 mg in 150 mls @ 100 mls/hr 10/14/22 10:00 10/14/22 10:28 Levaquin IV 100 mls/hr Q24H CARMELO Administration Vancomycin HCl 1,000 mg in 200 mls @ 200 mls/hr 07/01/23 11:00 10/14/22 23:09 Vancomycin IV 200 mls/hr Q12H [facility] Administration POTASSIUM CHLORIDE IN WATER 10 meq in 100 mls @ 100 mls/hr 10/15/22 08:00 10/15/22 09:13 Potassium Cl 10 Meq/100 Ml Maria Isabel IV 10/15/22 09:59 100 mls/hr Q1H CARMELO Administration Insulin Glargine 25 unit 10/15/22 08:00 10/15/22 08:53 Insulin Glargine 100 Unit/Ml 3ml Pen SUBCUT Not Given 0800 [facility] Insulin Human Lispro 0 unit 10/13/22 16:45 10/15/22 07:45 Insulin Lispro 100 Unit/Ml 3ml Vial SUBCUT Not Given ACHS [facility] Protocol Melatonin 6 mg 10/13/22 12:30 10/13/22 23:12 Melatonin 3 Mg Tablet PO 6 mg BEDTIME PRN Administration Insomnia Morphine Sulfate 2 mg 10/15/22 02:29 10/15/22 08:29 Morphine 2 Mg/Ml Inj IV 2 mg Q4HR PRN Administration Pain, Moderate (4-6) Ondansetron HCl 4 mg 10/13/22 22:09 10/15/22 08:17 Ondansetron 4 Mg/2 Ml Inj IV 4 mg Q4HR PRN Administration Nausea And Vomiting Pantoprazole Sodium 40 mg 10/14/22 21:00 10/15/22 08:17 Pantoprazole 40 Mg Vial IV 40 mg BID CARMELO Administration Pramipexole Dihydrochloride 0.5 mg 10/13/22 21:00 10/14/22 21:31 Pramipexole 0.25 Mg Tablet PO Not Given BEDTIME [facility] Tizanidine HCl 4 mg 10/13/22 16:08 10/15/22 01:13 Tizanidine 4 Mg Tablet PO 4 mg QID PRN Administration Muscle Spasm Objective Ventilator Parameters: Ventilator Settings FiO2 0.44 Labs 10/15/22 04:44 10/15/22 04:44 Labs: Laboratory Results - last 24 hr 10/15/22 10/15/22 10/15/22 04:44 04:44 04:44 WBC 13.6 H RBC 4.30 Hgb 12.2 Hct 36.6 MCV 85.0 MCH 28.3 MCHC 33.3 RDW 18.9 H Plt Count 396 Neut % (Auto) 87.2 H Lymph % (Auto) 5.4 L [place] % (Auto) 7.0 Eos % (Auto) 0.0 L Baso % (Auto) 0.4 Neut # (Auto) 17576 H Lymph # (Auto) 700 L Harrison # (Auto) 1000 H Eos # (Auto) 0 Baso # (Auto) 100 PT INR Sodium 132 L Potassium 3.4 Chloride 95 L Carbon Dioxide 29 BUN 16 Creatinine 0.75 Estimated GFR > 60 BUN/Creatinine Ratio 21.3 Glucose 106 Calcium 8.6 Magnesium Procalcitonin 2.11 H 10/15/22 10/15/22 04:44 04:44 WBC RBC Hgb Hct MCV MCH MCHC RDW Plt Count Neut % (Auto) Lymph % (Auto) Harrison % (Auto) Eos % (Auto) Baso % (Auto) Neut # (Auto) Lymph # (Auto) Harrison # (Auto) Eos # (Auto) Baso # (Auto) PT 39.9 H INR 3.4 H Sodium Potassium Chloride Carbon Dioxide BUN Creatinine Estimated GFR BUN/Creatinine Ratio Glucose Calcium Magnesium 1.8 Procalcitonin Exam Vital Signs (past 8 hours): - 10/15/22 02:00 10/15/22 02:00 10/15/22 02:10 Temperature Pulse Rate 113 H 114 H Respiratory Rate 28 H 28 H Blood Pressure 196/95 H Pulse Oximetry 96 95 Oxygen Delivery Method Oxygen Flow Rate Fraction of Inspired Oxygen 10/15/22 04:00 10/15/22 02:11 10/15/22 02:11 Temperature 97.6 F Pulse Rate 113 H 118 H Respiratory Rate 26 H 24 Blood Pressure 165/109 H 181/71 H Pulse Oximetry 96 95 Oxygen Delivery Method Oxygen Flow Rate 40 40 Fraction of Inspired Oxygen 0.44 10/15/22 03:01 10/15/22 03:01 10/15/22 04:01 Temperature Pulse Rate 110 H 113 H Respiratory Rate 28 H 35 H Blood Pressure 178/83 H Pulse Oximetry 96 96 Oxygen Delivery Method Oxygen Flow Rate 40 40 40 Fraction of Inspired Oxygen 10/15/22 04:01 10/15/22 04:29 10/15/22 05:00 Temperature Pulse Rate 107 H Respiratory Rate 32 H Blood Pressure 165/109 H 184/93 H Pulse Oximetry 95 Oxygen Delivery Method Oxygen Flow Rate 40 40 40 Fraction of Inspired Oxygen 10/15/22 05:00 10/15/22 05:04 10/15/22 05:12 Temperature Pulse Rate 110 H 112 H 112 H Respiratory Rate 22 29 H Blood Pressure 181/77 H Pulse Oximetry 97 97 Oxygen Delivery Method Oxygen Flow Rate 40 40 Fraction of Inspired Oxygen 10/15/22 05:38 10/15/22 05:08 10/15/22 05:08 Temperature Pulse Rate 122 H 106 H Respiratory Rate 22 Blood Pressure 155/64 H 181/77 H Pulse Oximetry 97 Oxygen Delivery Method Oxygen Flow Rate 40 40 Fraction of Inspired Oxygen 10/15/22 05:38 10/15/22 05:38 10/15/22 06:01 Temperature Pulse Rate 121 H 137 H Respiratory Rate 27 H 30 H Blood Pressure 155/64 H Pulse Oximetry 96 95 Oxygen Delivery Method Oxygen Flow Rate 40 40 40 Fraction of Inspired Oxygen 10/15/22 06:01 10/15/22 06:09 10/15/22 07:33 Temperature Pulse Rate 120 H 129 H Respiratory Rate 33 H 24 Blood Pressure 154/114 H Pulse Oximetry 94 94 Oxygen Delivery Method Oxygen Flow Rate 40 40 Fraction of Inspired Oxygen 10/15/22 07:37 10/15/22 06:30 10/15/22 07:00 Temperature Pulse Rate 129 H 118 H Respiratory Rate 24 22 Blood Pressure 161/110 H Pulse Oximetry 94 96 Oxygen Delivery Method Heated High Flow Oxygen Flow Rate 40 Fraction of Inspired Oxygen 40 10/15/22 07:00 10/15/22 07:30 10/15/22 08:00 Temperature Pulse Rate 120 H 118 H 138 H Respiratory Rate 30 H 44 H 30 H Blood Pressure Pulse Oximetry 92 93 95 Oxygen Delivery Method Oxygen Flow Rate Fraction of Inspired Oxygen 10/15/22 08:01 10/15/22 08:01 10/15/22 09:00 Temperature Pulse Rate 126 H Respiratory Rate 31 H Blood Pressure 172/101 H Pulse Oximetry 95 Oxygen Delivery Method Heated High Flow Oxygen Flow Rate Fraction of Inspired Oxygen Fraction of Inspired Oxygen 40 SaO2/FiO2 Ratio 235 Oxygen Delivery Method Heated High Flow Oxygen Flow Rate 40 Narrative Exam Narrative: Lethargic on HFNC. Assessment & Plan Assessment & Plan narrative: NEURO: # Acute encephalopathy -- Secondary to sepsis and hypoxemia -- Avoid sedatives -- Seek early mobility -- Cont frequent reorientation RESP: # Acute hypoxemia respiratory failure -- Secondary to PNA vs aspiration -- Resp cx + WBC -- On vanc/cefepime/levaquin -- HOB elevaton -- Aspiration precaution -- Strict NPO -- On HFNC -- Cont gentle diuresis to seek net negative fluid balance -- Goal SpO2 > 88% CVS: # Hx of HFpEF -- STrict I/O -- Cont gentle diuresis # HTN -- Added PO dilatiazem -- Goal SBP < 140 # Hx of A fib -- On couamdin -- Pharmacy to dose warfarin to seek goal INR 2-3 ENDO: -- Goal BS < 180 Time Spent With Patient Time with patient: 30 to 49 minutes with 50% spent counseling/coordinating care
[2022-10-15] MEDS: levoFLOXacin 750 MG/150 ML PIGGYBACK 100 MG IV (10:26)
[2022-10-15] MEDS: VANCOMYCIN 1,000 MG/200 ML PIGGYBACK 200 MG IV (12:08)
[2022-10-15] MEDS: INSULIN LISPRO 100 UNIT/ML 3ML VIAL SUBCUT (12:15)
[2022-10-15] MEDS: PROCHLORPERAZINE 10 MG/2 ML VIAL 5 MG IV ×2 (12:37→17:58)
[2022-10-15] MEDS: FUROSEMIDE 40 MG TABLET PO (16:56)
[2022-10-15] MEDS: WARFARIN 1 MG TABLET 0.5 MG PO (16:56)
[2022-10-15] MEDS: ACETAMINOPHEN 325 MG TABLET 650 MG PO (18:52)
[2022-10-15] MEDS: PRAMIPEXOLE 0.25 MG TABLET 0.5 MG PO (20:19)
[2022-10-15] MEDS: cloNIDine 0.1 MG TABLET 0.05 MG PO (20:20)
[2022-10-15] MEDS: MELATONIN 3 MG TABLET 6 MG PO (20:20)
--- NOTE | 2022-10-15 20:28 | PM.ICURNDS ---
- Date Patient Seen: 10/15/22 Time Patient Seen: 20:29 :: This patient was seen via real time interactive two-way audiovisual telecommunication. Note: Resp cx + GNR and urine cx + E. coli. Will stop vancomycin and cont cefepime/levaquin. Down to 6 liters oxymask. Cont supportive care and follow up cx data. D/w RN at bedside.
[2022-10-16] VITALS (64 sets, daily range): BP systolic 103–145; BP diastolic 52–80; PULSE 83–135; RESP 14–62; TEMP 36.4–37.3; O2SAT 88–100
[2022-10-16] MEDS: CEFEPIME 2 GM in SODIUM CHLORIDE 0.9% 100 ML IV ×2 (02:20→14:10)
[2022-10-16] MEDS: dilTIAZem 30 MG TABLET PO ×4 (02:25→20:34)
[2022-10-16] MEDS: PROCHLORPERAZINE 10 MG/2 ML VIAL 5 MG IV ×4 (03:02→21:54)
[2022-10-16 05:03] LABS: INR 4.3 (0.9-1.3); Prothrombin Time 49.8 SECONDS (10.1-12.7)
[2022-10-16 05:05] LABS: Add Manual Diff / Slide Review NO; Basophils Absolute Auto 0 /uL (0-100); Basophils Percent Auto 0.3 % (0-2); Eosinophils Absolute Auto 0 /uL (0-450); Hematocrit 32.4 % (36-46); Hemoglobin 10.9 g/dL (12.0-16.0); Lymphocytes Absolute Auto 700 /uL (1100-4500); Lymphocytes Percent Auto 8.1 % (25-40); Mean Corpuscular HGB Conc 33.7 % (30-36); Mean Corpuscular Hemoglobin 28.5 PG (26-34); Mean Corpuscular Volume 84.8 fL (80-100); Monocytes Absolute Auto 1000 /uL (0-900); Monocytes Percent Auto 10.9 % (3-14); Neutrophils Absolute Auto 7100 /uL (1500-7000); Neutrophils Percent Auto 80.7 % (50-75); Platelet Count 428 X10^3/uL (150-400); Red Blood Cell Count 3.82 X10^6/uL (4.0-5.2); White Blood Cell Count 8.9 X10^3/uL (4.5-11.0)
[2022-10-16 05:10] LABS: BUN Creatinine Ratio 19.3 (6-22); Blood Urea Nitrogen 16 mg/dL (7-17); Calcium 8.6 mg/dL (8.4-10.2); Carbon Dioxide 26 mmol/L (22-32); Chloride 97 mmol/L (98-107); Estimated Glomerular Filt Rate > 60 mL/min (>60); Glucose 137 mg/dL (80-110); HEMOLYSIS < 15 (0-50); Potassium 3.3 mmol/L (3.4-5.1); Sodium 130 mmol/L (137-145)
[2022-10-16] MEDS: LEVOTHYROXINE 75 MCG TABLET PO (06:03)
[2022-10-16] MEDS: POTASSIUM CHLORIDE 20 MEQ TAB 40 MEQ PO (08:18)
[2022-10-16] MEDS: FUROSEMIDE 40 MG TABLET PO ×2 (08:19→16:55)
[2022-10-16] MEDS: cloNIDine 0.1 MG TABLET 0.05 MG PO ×2 (08:20→20:35)
[2022-10-16] MEDS: PANTOPRAZOLE 40 MG VIAL IV ×2 (08:21→20:33)
[2022-10-16] MEDS: INSULIN LISPRO 100 UNIT/ML 3ML VIAL SUBCUT ×2 (08:30→16:52)
[2022-10-16] MEDS: INSULIN GLARGINE 100 UNIT/ML 3ML PEN 25 UNIT SUBCUT (08:30)
[2022-10-16] MEDS: ALBUTEROL/IPRATROPIUM 3 ML AMPUL INH ×2 (08:53→20:48)
[2022-10-16] MEDS: levoFLOXacin 750 MG/150 ML PIGGYBACK 100 MG IV (09:47)
--- NOTE | 2022-10-16 10:17 | PM.PN.1 ---
Subjective Subjective Interval history: 71-year-old female with common variable immunodeficiency with Q three-week IVIG infusions and prednisone, AFib on warfarin anticoagulation previously complicated by hematoma development, previous PE with IVC filter in place, heart failure with preserved ejection fraction, NSTEMI in January 2022, obstructive sleep apnea, diabetes mellitus type 2, asthma, chronic hip and back pain on fentanyl patch, hypothyroidism, hypertension, hyperlipidemia, multiple prior episodes of pneumonia with Pseudomonas, stenotrophomonas, and MRSA who is on chronic azithromycin as well as chronic hypoxic respiratory failure on 5 L nasal cannula who was admitted with sepsis secondary to right lower lobe pneumonia in the setting of chronic immunodeficiency, as well as acute on chronic hypoxic respiratory failure. She is continuing to slowly improve today, down from 40L to 5L via NC. Did feel a bit more short of breath this morning, continues to have strong coughing spells with pain. No nausea or vomiting. Exam Vital Signs (past 8 hours): - 10/16/22 02:25 10/16/22 03:02 10/16/22 02:21 Temperature Pulse Rate 88 88 93 H Respiratory Rate 20 Blood Pressure 132/57 L 109/72 Pulse Oximetry 98 Oxygen Delivery Method Oxygen Flow Rate 7 Fraction of Inspired Oxygen 10/16/22 02:21 10/16/22 03:00 10/16/22 03:00 Temperature Pulse Rate 88 Respiratory Rate 34 H Blood Pressure 132/57 L 109/72 Pulse Oximetry 97 Oxygen Delivery Method Oxygen Flow Rate 7 7 7 Fraction of Inspired Oxygen 10/16/22 04:01 10/16/22 04:01 10/16/22 04:41 Temperature 97.6 F Pulse Rate 100 H 102 H Respiratory Rate 41 H 27 H Blood Pressure 110/55 L Pulse Oximetry 97 95 Oxygen Delivery Method Oxygen Flow Rate 7 7 7 Fraction of Inspired Oxygen 10/16/22 05:00 10/16/22 05:00 10/16/22 05:35 Temperature Pulse Rate 110 H 98 H Respiratory Rate 25 H 35 H Blood Pressure 124/80 Pulse Oximetry 97 96 Oxygen Delivery Method Oxygen Flow Rate 6 6 6 Fraction of Inspired Oxygen 10/16/22 06:00 10/16/22 06:00 10/16/22 06:29 Temperature Pulse Rate 88 87 Respiratory Rate 23 31 H Blood Pressure 117/57 L Pulse Oximetry 95 97 Oxygen Delivery Method Oxygen Flow Rate 5 5 5 Fraction of Inspired Oxygen 10/16/22 06:30 10/16/22 07:00 10/16/22 07:30 Temperature Pulse Rate 86 103 H 85 Respiratory Rate 31 H 23 25 H Blood Pressure Pulse Oximetry 97 98 100 Oxygen Delivery Method Oxygen Flow Rate Fraction of Inspired Oxygen 10/16/22 08:21 10/16/22 08:53 10/16/22 08:00 Temperature Pulse Rate 128 H 93 H Respiratory Rate 20 Blood Pressure 132/62 Pulse Oximetry 96 Oxygen Delivery Method Nasal Cannula Nasal Cannula Oxygen Flow Rate 5 Fraction of Inspired Oxygen 40 Fraction of Inspired Oxygen 40 SaO2/FiO2 Ratio 240 Oxygen Delivery Method Nasal Cannula Oxygen Flow Rate 5 Narrative Exam Narrative: GEN: Alert and oriented x 3, acutely and chronically ill-appearing HEENT:NC, Face symmetric CHEST: Respiratory excursions symmetric, inspiratory wheeze heard in the right anterior lung field, bibasilar crackles, otherwise coarse but clear CV:?Tachycardic, irregularly irregular, no M/R/G ABD: Soft, NT/ND EXTR:? Erythema to the bilateral lower extremities in the pretibial area is improved today, warm, well perfused, no C/C/E, significant wrinkling to the skin of the lower extremities consistent with venous stasis changes SKIN: warm and dry, no rash NEURO: Alert and oriented x 3, moving all extremities Objective Labs 10/16/22 04:41 10/16/22 04:41 Labs: Laboratory Results - last 24 hr 10/16/22 10/16/22 10/16/22 04:41 04:41 04:41 WBC 8.9 RBC 3.82 L Hgb 10.9 L Hct 32.4 L MCV 84.8 MCH 28.5 MCHC 33.7 RDW 19.0 H Plt Count 428 H Neut % (Auto) 80.7 H Lymph % (Auto) 8.1 L Hard[place] % (Auto) 10.9 Eos % (Auto) 0.0 L Baso % (Auto) 0.3 Neut # (Auto) 7100 H Lymph # (Auto) 700 L [place] # (Auto) 1000 H Eos # (Auto) 0 Baso # (Auto) 0 PT 49.8 H D INR 4.3 H Sodium 130 L Potassium 3.3 L Chloride 97 L Carbon Dioxide 26 BUN 16 Creatinine 0.83 Estimated GFR > 60 BUN/Creatinine Ratio 19.3 Glucose 137 H Calcium 8.6 PFSH Medical History Abnormal chest xray (~1979) Anemia Ankle pain Anticoagulated Asthma (~1959) Bronchiectasis (~2006) Cervical spine disease Chronic back pain Colon polyps (~2015) Degenerative joint disease of spine (~2001) Diabetes mellitus, type II (~2009) Eczema Fibromyalgia Foot pain Hoarseness Hyperlipidemia Hypertension Hypothyroidism Migraines (~1964) 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 Osteopenia Pneumonia Pneumonia Recurrent sinusitis (~1970) Restless leg syndrome Shoulder pain (~03/2018) Sleep apnea Wears glasses Surgical History Anesthesia History of carpal tunnel release History of cataract removal with insertion of prosthetic lens (~2014) History of section History of laminectomy (~2002) History of spinal fusion (~2012) History of thumb surgery Family History Father Stroke Mother Hypertension Brother Cerebral aneurysm Prostate cancer Diabetes mellitus Hypertension Stroke Brother Arthritis Hyperlipidemia Hypertension Sister History of kidney cancer Hypertension Grandfather Cancer Grandmother Cancer Other Family history non-contributory Social History marital status: household members: spouse lives independently: Yes occupational status: previously employed Smoking Status: Never smoker alcohol intake: current substance use type: does not use Assessment & Plan Assessment & Plan narrative: 1. Sepsis secondary to pseudomonas right lower lobe pneumonia in the setting of chronic immunodeficiency On admission, she was febrile with leukocytosis and altered mental status.? She was initiated on cefepime, azithro, and vancomycin.? Azithro d/c'd and Levaquin added on HD#2. Leukocytosis now resolved. down from 17.6 yesterday.? She is chronically on prednisone 5 mg daily, which puts her at lower risk for adrenal insufficiency.? No evidence of adrenal insufficiency at this time. - sputum cultures with pseudomonas, will narrow to cefepime only based on prior cultures from May. Prior cultures with intermediate resistance to Levofloxacin. Will need likely 7 days of antibiotics, given prior resistance this will likely need to be IV. 2. Bilateral pneumonia in a chronically immunosuppressed patient Continue cefepime as noted above. benadryl prn for pruritis 3. Acute on chronic hypoxic respiratory failure Now improved to 5L via NC from HFNC. 4. CVID Receives every 3 week doses of IVIG.? She is on Hizintra q week which has been held. 5. Acute metabolic encephalopathy, improving [place] to be multifactorial from sepsis, pneumonia, and respiratory failure. Improving. 6. Hypomagnesemia, hypokalemia She has had borderline hypomagnesemia with a magnesium level of 1.7 on admission.? K 3.3 today, will replete 7. History of pulmonary embolism Status post IVC filter placement.? Also on warfarin anticoagulation. 8. Atrial fibrillation With RVR She is now back on warfarin anticoagulation.? INR remains supratherapeutic at 3.4. Spouse noted that when she restarted warfarin 10 days prior to admission, she was placed on 5mg. She was up to an INR>8 within 3 days. She then was started on 1mg/day. Her INR was supratherapeutic last week and it was held for a day and she was restarted again at 1mg/day. I will change her warfarin to 1 mg 5 days weekly and 0.5 mg 2 days weekly. Recheck INR in am. given her RVR this morning with heart rates in the 120 130s, as well as elevated blood pressures, will add Cardizem 30 mg q.6 hours. I deferred using a beta-ania given her known severe asthma. 9. Chronic heart failure with preserved ejection fraction Takes Lasix 40 mg twice daily.? BNP was increased at 3730 on admission.? Furosemide changed to 20 mg IV BID yesterday d/t encephalopathy. Diuresed 2175/24 hrs. Hyponatremia slightly worse today. Will plan to resume her usual oral po dose. 10. Diabetes mellitus type 2 On Lantus 30 units daily.? Hemoglobin A1c in August of this year was 6.8%.? Continue sliding scale.? She did have a low BG at 69 during admission, lantus was then decreased to 25 units for now. Improved BS today in 120s-150s. 11. Chronic pain syndrome Continue usual fentanyl 37 mcg/hour as well as oxycodone 15 mg every 6 hours as needed 12. Neuropathy Continue duloxetine and amitriptyline 13. Asthma On Fasenra as an outpatient q8 wks, as well as [place], Adv, Singbebo, and duadelaide. 14. Restless leg syndrome Continue Mirapex 15. Hypothyroidism Continue usual outpatient dose of levothyroxine 16. Hyperlipidemia Continue atorvastatin 17. GERD On Protonix b.i.d. 18. Class 3 obesity BMI is 41.5.? She is at significantly higher risk of morbidity and mortality related to her obesity and would benefit from weight reduction. Code status DNR DNI Prophylaxis On warfarin, INR elevated now on hold Disposition stable for regular floor today, will downgrade I spent 30 minutes providing critical care management this patient. This excludes time spent in performing separately billed procedures.
[2022-10-16] MEDS: SENNOSIDES 8.6 MG TABLET PO (12:02)
[2022-10-16] MEDS: ONDANSETRON 4 MG/2 ML INJ IV (12:02)
[2022-10-16] MEDS: ALBUTEROL 2.5 MG/3 ML NEB (ADULT) INH (13:57)
--- NOTE | 2022-10-16 15:57 | CM.DPC ---
DCP Continued: YOKER MACHINE OPERATOR reviewed EMR. Per previous CM note, patient [facility] utilized [facility] and is interested in started services again upon d/c. YOKER MACHINE OPERATOR entered room and introduced self and role. Patient was resting in bed and appeared A/Ox4. Patient was accompanied at bedside by spouse, Harjeet Zavala. Patient and spouse report patient is likely to d/c in a day or two. Spouse reports they have all the equipment they need at home. MACKENZIE Pinto had previously faxed over [facility] initial referral information. CM team will need to update [facility] upon d/c. Plan: likely d/c home with resumption of services from [facility] within a day or two, may add additional disciplines to current plan. D/c home with spouse in POV. CM team will continue to follow closely. MACKENZIE Concepcion
[2022-10-16] MEDS: MORPHINE 2 MG/ML INJ IV (16:42)
[2022-10-16] MEDS: TIZANIDINE 4 MG TABLET PO (20:35)
[2022-10-16] MEDS: MELATONIN 3 MG TABLET 6 MG PO (20:35)
[2022-10-16] MEDS: PRAMIPEXOLE 0.25 MG TABLET 0.5 MG PO (20:35)
[2022-10-16] MEDS: SODIUM CHLORIDE 0.9% FLUSH 10 ML IV (20:55)
[2022-10-17] VITALS (64 sets, daily range): BP systolic 125–163; BP diastolic 60–70; PULSE 79–128; RESP 16–46; TEMP 36.3–37.4; O2SAT 85–100
[2022-10-17] MEDS: MORPHINE 2 MG/ML INJ IV ×4 (01:18→22:17)
[2022-10-17] MEDS: SENNOSIDES 8.6 MG TABLET PO (01:30)
[2022-10-17] MEDS: CEFEPIME 2 GM in SODIUM CHLORIDE 0.9% 100 ML IV ×2 (01:30→14:10)
[2022-10-17] MEDS: ALBUTEROL 2.5 MG/3 ML NEB (ADULT) INH ×2 (02:08→16:10)
[2022-10-17] MEDS: dilTIAZem 30 MG TABLET PO ×4 (03:01→21:27)
[2022-10-17 04:50] LABS: Add Manual Diff / Slide Review NO; Basophils Absolute Auto 0 /uL (0-100); Basophils Percent Auto 0.5 % (0-2); Eosinophils Absolute Auto 0 /uL (0-450); Hematocrit 33.7 % (36-46); Hemoglobin 11.2 g/dL (12.0-16.0); INR 3.7 (0.9-1.3); Lymphocytes Absolute Auto 900 /uL (1100-4500); Lymphocytes Percent Auto 11.5 % (25-40); Mean Corpuscular HGB Conc 33.3 % (30-36); Mean Corpuscular Hemoglobin 28.1 PG (26-34); Mean Corpuscular Volume 84.4 fL (80-100); Monocytes Absolute Auto 1200 /uL (0-900); Monocytes Percent Auto 14.9 % (3-14); Neutrophils Absolute Auto 6000 /uL (1500-7000); Neutrophils Percent Auto 73.1 % (50-75); Platelet Count 471 X10^3/uL (150-400); Prothrombin Time 42.5 SECONDS (10.1-12.7); Red Blood Cell Count 3.99 X10^6/uL (4.0-5.2); Red Cell Distribution Width 18.6 % (11.6-14.8); White Blood Cell Count 8.2 X10^3/uL (4.5-11.0)
[2022-10-17 05:01] LABS: BUN Creatinine Ratio 15.9 (6-22); Blood Urea Nitrogen 13 mg/dL (7-17); Calcium 8.5 mg/dL (8.4-10.2); Carbon Dioxide 30 mmol/L (22-32); Chloride 96 mmol/L (98-107); Estimated Glomerular Filt Rate > 60 mL/min (>60); Glucose 194 mg/dL (80-110); HEMOLYSIS < 15 (0-50); Potassium 3.3 mmol/L (3.4-5.1); Sodium 132 mmol/L (137-145)
--- NOTE | 2022-10-17 06:29 | PC.NURSE ---
Cargo Vessel Stewardess Note-Patient is A/Ox3, dozed intermittently. IV Compazine given for nausea, IV morphine given for chronic pain. HR 90s-120, WAP vs A-fib, VSS, SpO2 >92% on 5L NC, has moist productive cough. 1550ml UOP via Purewick.
[2022-10-17] MEDS: LEVOTHYROXINE 75 MCG TABLET PO (06:37)
[2022-10-17] MEDS: ALBUTEROL/IPRATROPIUM 3 ML AMPUL INH ×2 (07:41→20:54)
[2022-10-17] MEDS: FUROSEMIDE 40 MG TABLET PO ×2 (08:09→17:29)
[2022-10-17] MEDS: INSULIN GLARGINE 100 UNIT/ML 3ML PEN 25 UNIT SUBCUT (08:10)
[2022-10-17] MEDS: cloNIDine 0.1 MG TABLET 0.05 MG PO ×2 (08:10→21:19)
[2022-10-17] MEDS: INSULIN LISPRO 100 UNIT/ML 3ML VIAL SUBCUT ×3 (08:10→21:22)
[2022-10-17] MEDS: PANTOPRAZOLE 40 MG VIAL IV ×2 (08:40→21:19)
[2022-10-17] MEDS: SODIUM CHLORIDE 0.9% FLUSH 10 ML IV ×3 (08:40→21:19)
[2022-10-17] MEDS: fentaNYL 12 MCG/PATCH TOP (08:40)
[2022-10-17] MEDS: fentaNYL 25 MCG/PATCH TOP (08:40)
[2022-10-17] MEDS: POTASSIUM CHLORIDE 20 MEQ TAB 40 MEQ PO ×2 (09:08→15:39)
--- NOTE | 2022-10-17 10:28 | P.PN_ITS ---
Subjective Subjective Interval history: 71-year-old female with common variable immunodeficiency with Q three-week IVIG infusions and prednisone, AFib on warfarin anticoagulation previously complicated by hematoma development, previous PE with IVC filter in place, heart failure with preserved ejection fraction, NSTEMI in January 2022, obstructive sleep apnea, diabetes mellitus type 2, asthma, chronic hip and back pain on fentanyl patch, hypothyroidism, hypertension, hyperlipidemia, multiple prior episodes of pneumonia with Pseudomonas, stenotrophomonas, and MRSA who is on chronic azithromycin as well as chronic hypoxic respiratory failure on 5 L nasal cannula who was admitted with sepsis secondary to right lower lobe pneumonia in the setting of chronic immunodeficiency, as well as acute on chronic hypoxic respiratory failure. She is continuing to slowly improve today and remains near her baseline O2. No nausea or vomiting. She does feel weak and will hopefully start PT/OT today. Outside service unwilling to do midline placement with elevated INR for likely need for IV antibiotics at home given her pseudomonas in her lungs. Exam Vital Signs (past 8 hours): - 10/17/22 03:01 10/17/22 04:00 10/17/22 07:41 Temperature 97.6 F Pulse Rate 112 H 96 H 92 H Respiratory Rate 23 20 Blood Pressure 126/60 143/64 H Pulse Oximetry 94 95 Oxygen Delivery Method Nasal Cannula Oxygen Flow Rate 5 5 Fraction of Inspired Oxygen 40 10/17/22 08:08 10/17/22 09:00 Temperature 97.4 F L Pulse Rate 97 H Respiratory Rate 21 Blood Pressure 127/64 Pulse Oximetry 100 Oxygen Delivery Method Nasal Cannula Oxygen Flow Rate 5 Fraction of Inspired Oxygen Fraction of Inspired Oxygen 40 SaO2/FiO2 Ratio 237 Oxygen Delivery Method Nasal Cannula Oxygen Flow Rate 5 Narrative Exam Narrative: GEN: Alert and oriented x 3, acutely and chronically ill-appearing HEENT:NC, Face symmetric CHEST: Respiratory excursions symmetric, inspiratory wheeze heard in the right anterior lung field, bibasilar crackles, otherwise coarse but clear CV:?Tachycardic, irregularly irregular, no M/R/G ABD: Soft, NT/ND EXTR:? Erythema to the bilateral lower extremities in the pretibial area is improved today, warm, well perfused, no C/C/E, significant wrinkling to the skin of the lower extremities consistent with venous stasis changes SKIN: warm and dry, no rash NEURO: Alert and oriented x 3, moving all extremities Objective Labs 10/17/22 04:25 07/04/23 04:25 Labs: Laboratory Results - last 24 hr 10/17/22 10/17/22 10/17/22 04:25 04:25 04:25 WBC 8.2 RBC 3.99 L Hgb 11.2 L Hct 33.7 L MCV 84.4 MCH 28.1 MCHC 33.3 RDW 18.6 H Plt Count 471 H Neut % (Auto) 73.1 Lymph % (Auto) 11.5 L [place] % (Auto) 14.9 H Eos % (Auto) 0.0 L Baso % (Auto) 0.5 Neut # (Auto) 6000 Lymph # (Auto) 900 L [place] # (Auto) 1200 H Eos # (Auto) 0 Baso # (Auto) 0 PT 42.5 H D INR 3.7 H Sodium 132 L Potassium 3.3 L Chloride 96 L Carbon Dioxide 30 BUN 13 Creatinine 0.82 Estimated GFR > 60 BUN/Creatinine Ratio 15.9 Glucose 194 H Calcium 8.5 PFSH Medical History Abnormal chest xray (~1979) Anemia Ankle pain Anticoagulated Asthma (~1959) Bronchiectasis (~2006) Cervical spine disease Chronic back pain Colon polyps (~2015) Degenerative joint disease of spine (~2001) Diabetes mellitus, type II (~2009) Eczema Fibromyalgia Foot pain Hoarseness Hyperlipidemia Hypertension Hypothyroidism Migraines (~1964) 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 Osteopenia Pneumonia Pneumonia Recurrent sinusitis (~1970) Restless leg syndrome Shoulder pain (~03/2018) Sleep apnea Wears glasses Surgical History Anesthesia History of carpal tunnel release History of cataract removal with insertion of prosthetic lens (~2014) History of section History of laminectomy (~2002) History of spinal fusion (~2012) History of thumb surgery Family History Father Stroke Mother Hypertension Brother Cerebral aneurysm Prostate cancer Diabetes mellitus Hypertension Stroke Brother Arthritis Hyperlipidemia Hypertension Sister History of kidney cancer Hypertension Grandfather Cancer Grandmother Cancer Other Family history non-contributory Social History marital status: household members: spouse lives independently: Yes occupational status: previously employed Smoking Status: Never smoker alcohol intake: current substance use type: does not use Assessment & Plan Assessment & Plan narrative: 1. Sepsis secondary to pseudomonas right lower lobe pneumonia in the setting of chronic immunodeficiency On admission, she was febrile with leukocytosis and altered mental status.? She was initiated on cefepime, azithro, and vancomycin.? Azithro d/c'd and Levaquin added on HD#2. Leukocytosis now resolved. down from 17.6 yesterday.? She is chronically on prednisone 5 mg daily, which puts her at lower risk for adrenal insufficiency.? No evidence of adrenal insufficiency at this time. - sputum cultures with pseudomonas, narrowed cefepime only based on prior cultures from May. Prior cultures with intermediate resistance to Levofloxacin. Will need likely 7-10 days of antibiotics, given prior resistance this will likely need to be IV. - unfortunately cultures are send-outs for sensitivities. - will need outpatient IV access, ideally midline. Ordered midline but outside service over the holiday unable to perform they state due to elevated INR. 2. Bilateral pneumonia in a chronically immunosuppressed patient Continue cefepime as noted above. benadryl prn for pruritis 3. Acute on chronic hypoxic respiratory failure Now improved to 5L via NC from HFNC. 4. CVID Receives every 3 week doses of IVIG.? She is on Hizintra q week which has been held. 5. Acute metabolic encephalopathy, improving [place] to be multifactorial from sepsis, pneumonia, and respiratory failure. Improving. 6. Hypomagnesemia, hypokalemia She has had borderline hypomagnesemia with a magnesium level of 1.7 on admission.? K 3.3 today, will replete 7. History of pulmonary embolism Status post IVC filter placement.? Also on warfarin anticoagulation. 8. Atrial fibrillation With RVR She is now back on warfarin anticoagulation.? INR remains supratherapeutic today. Spouse noted that when she restarted warfarin 10 days prior to admission, she was placed on 5mg. She was up to an INR>8 within 3 days. She then was started on 1mg/day. Her INR was supratherapeutic last week and it was held for a day and she was restarted again at 1mg/day. Will hold warfarin until INR 2-3. 9. Chronic heart failure with preserved ejection fraction Takes Lasix 40 mg twice daily.? BNP was increased at 3730 on admission.? Furosemide changed to 20 mg IV BID yesterday d/t encephalopathy. Diuresed 2175/24 hrs. Now on home oral dosing. 10. Diabetes mellitus type 2 On Lantus 30 units daily.? Hemoglobin A1c in August of this year was 6.8%.? Continue sliding scale.? She did have a low BG at 69 during admission, lantus was then decreased to 25 units for now. Improved BS now. No changes necessary. 11. Chronic pain syndrome Continue usual fentanyl 37 mcg/hour as well as oxycodone 15 mg every 6 hours as needed 12. Neuropathy Continue duloxetine and amitriptyline 13. Asthma On Fasenra as an outpatient q8 wks, as well as Wixela, Advair, Singulair, and duonebs. 14. Restless leg syndrome Continue Mirapex 15. Hypothyroidism Continue usual outpatient dose of levothyroxine 16. Hyperlipidemia Continue atorvastatin 17. GERD On Protonix b.i.d. 18. Class 3 obesity BMI is 41.5.? She is at significantly higher risk of morbidity and mortality related to her obesity and would benefit from weight reduction. Code status DNR DNI Prophylaxis On warfarin, INR elevated now on hold Disposition Remains acute care. Possible discharge home with home health tomorrow, but needs IV access, return of sputum cultures, and PT/OT evaluations which may take a few days.
[2022-10-17] MEDS: polyethylene glycoL 3350 17 GM POWD.PACK PO (14:13)
--- NOTE | 2022-10-17 15:37 | OT.IPNOTE ---
Talked to pt and her , at this time pt is too tired and would rather just do home health OT after discharging home when medically stable. Able to talk to the Hospitalist of pt's request and therefore discharge Pt eval orders.
--- NOTE | 2022-10-17 16:33 | PT.IIE ---
Current Diagnoses Sepsis, unspecified organism (10/13/22) Surgical History (Last Reviewed 10/13/22 @ 18:27 by Wade Downing DO) Anesthesia History of carpal tunnel release History of cataract removal with insertion of prosthetic lens (~2014) History of section History of laminectomy (~2002) History of spinal fusion (~2012) History of thumb surgery Medical History (Last Reviewed 10/13/22 @ 18:27 by Wade Downing DO) Abnormal chest xray (~1979) Anemia Ankle pain Anticoagulated Asthma (~1959) Bronchiectasis (~2006) Cervical spine disease Chronic back pain Colon polyps (~2015) Degenerative joint disease of spine (~2001) Diabetes mellitus, type II (~2009) Eczema Fibromyalgia Foot pain Hoarseness Hyperlipidemia Hypertension Hypothyroidism Migraines (~1964) 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 Osteopenia Pneumonia Pneumonia Recurrent sinusitis (~1970) Restless leg syndrome Shoulder pain (~03/2018) Sleep apnea Wears glasses Physical Therapy Inpatient Evaluation/Re-Eval M1 PT/OT-IP Prior Functional Status Start: 10/17/22 15:10 Freq: NEEDED Status: Active Protocol: Document 10/17/22 16:17 AMB (Rec: 10/17/22 16:33 AMB [id number]) Medical Review Prior Functional Status Medical History Reviewed Yes Mobility and Gait Pt lives with who provides significant help with transfers, gait, ADL, pt had been getting home health, has walkers, w/c, shower chair. 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 2 stairs, also have ramp if needed Home Equipment Front Wheel Walker,Four Wheel Walker,Manual Wheelchair Employment Status Retired M2 PT-IP Current Condition Start: 10/17/22 15:10 Freq: NEEDED Status: Active Protocol: Document 10/17/22 16:17 AMB (Rec: 10/17/22 16:33 AMB [id number]) Physical Therapy Current Condition Current Condition Evaluation Date 10/17/22 Treatment Diagnosis pneumonia, weakness Onset Date 10/13/22 M3 PT-IP Subjective Start: 10/17/22 15:10 Freq: NEEDED Status: Active Protocol: Document 10/17/22 16:17 AMB (Rec: 10/17/22 16:33 AMB [id number]) Subjective Physical Therapy Visit Type Type Initial Evaluation Visit Start Time 14:45 Visit Stop Time 15:15 Total Visit Minutes 30 Physical Therapy Visit Comments Patient Comments Pt worried about getting SOB but is willing to get up and try M4 PT-IP Mobility and Gait Start: 10/17/22 15:10 Freq: NEEDED Status: Active Protocol: Document 10/17/22 16:17 AMB (Rec: 10/17/22 16:33 AMB [id number]) PT-Bed Mobility Assessment Rolling Type of Rolling Log Rolling,Roll to Right Level of Assist Minimal Assistance,1 Person Assistance Supine to Sit Supine to Sit Minimal Assistance,1 Person Assistance,Bedrails PT-Transfer Assessment Sit to and From Stand Sit to and from Stand Minimal Assistance,1 Person Assistance,2 Person Assistance Equipment Transfer Assistive Device Bed Rail,Gait Belt,Front Wheeled Walker Transfers Transfer Destination Chair Transfer Technique Stand Step Pivot Transfer Ability Level of Assist Minimal Assistance Comments Mobility Comments Pt requires Perry for most mobility, on 7L O2 via nasal cannula. HARSHAD Clinton provides assistance with line management but did not physically assist patient. Did tilt bed to 5 degrees to assit with rolling and lower bed at pt's request due to short stature. SpO2 started at 97% at rest at lowest got to 88%, was mostly in low 90s during mobility. M5 PT-IP Objective Assessments Start: 10/17/22 15:10 Freq: NEEDED Status: Active Protocol: Document 10/17/22 16:17 AMB (Rec: 10/17/22 16:33 AMB [id number]) Orientation Orientation/Cognition Level of Alertness Alert Strength Upper Extremity Strength Assessment Within Functional Limits Lower Extremity Strength Hip 3 Knee 3 Ankle 3 Comments Strength Comments Generally weak LEs M6 PT-IP Treatment Start: 10/17/22 15:10 Freq: NEEDED Status: Active Protocol: Document 10/17/22 16:17 AMB (Rec: 10/17/22 16:33 AMB [id number]) Physical Therapy Treatment Exercises Exercises Ankle Pumps,Quad Sets,Heel Slides M7 PT-IP Assessment and Plan Start: 10/17/22 15:10 Freq: NEEDED Status: Active Protocol: Document 10/17/22 16:17 AMB (Rec: 10/17/22 16:33 AMB [id number]) PT Summary Assessment and Plan Potential Rehabilitation Potential Good Status of Condition at Evaluation Stable Summary Impairments Strength,Bed Mobility, Transfers,Gait,Activity Tolerance Assessment Summary aRdha has been admitted since 10/13 due to sepsis due to pneumonia. Has been in and out of the hospital for the past few months. is very supportive and feels able to care for her when medically stable. They have all the assistive technology they need including a ramp to enter. Would like to resume home health when return home. Radha fatigues easily and SpO2 does drop but would benefit from physical therapy to improve her mobility, strength, balance and activity tolerance while admitted. Goals Bed Mobility Goal Standby Assistance Transfer Goal Standby Assistance Gait Goal Contact Guard Assistance Gait Distance 200 Days to Meet Goals 7 Frequency of Treatment Frequency Of Treatment Once a Day Treatment Plan Physical Therapy Treatment Plan Bed Mobility Training,Transfer Training,Gait Training, Therapeutic Exercise,Balance Retraining,Neuromuscular Re-ed Recommendations To Nursing Amount of Assist Needed 2 Person Assist Discharge Recommendations PT Discharge Recommendations Home with 06/11 Assist Available,Home Health Transportation Needs at Discharge Private Vehicle
[2022-10-17] MEDS: ONDANSETRON 4 MG/2 ML INJ IV (17:29)
--- NOTE | 2022-10-17 19:04 | PC.NURSE ---
Patient making progress and feeling a little better today. Worked with Kyara and got up to chair and BSC to attempt BM today. Continue with plan of care, call light within reach.
[2022-10-17] MEDS: PRAMIPEXOLE 0.25 MG TABLET 0.5 MG PO (21:19)
[2022-10-17] MEDS: MELATONIN 3 MG TABLET 6 MG PO (21:21)
[2022-10-17] MEDS: TIZANIDINE 4 MG TABLET PO (21:21)
[2022-10-17] MEDS: diphenhydrAMINE 50 MG/ML VIAL 25 MG IV (21:59)
--- NOTE | 2022-10-17 22:06 | PC.NURSE ---
Yarn Spooler Notes-BG at HS 458, rechecked 457, patient has been drinking smoothies throughout the day brought in by , notified [facility], order given to cover with current algorithm, 7 units Humalog given. Patient also inquiring about her routine prednisone 5m g daily, reordered by [facility] [employer] [facility] to start tomorrow. Up to BSC with assist, had large hard BM.
[2022-10-18] VITALS (43 sets, daily range): BP systolic 98–167; BP diastolic 60–70; PULSE 71–106; RESP 17–43; TEMP 36.4–37.3; O2SAT 89–99
[2022-10-18] MEDS: dilTIAZem 30 MG TABLET PO ×4 (02:45→21:10)
[2022-10-18] MEDS: CEFEPIME 2 GM in SODIUM CHLORIDE 0.9% 100 ML IV ×2 (02:45→14:48)
[2022-10-18 05:40] LABS: Add Manual Diff / Slide Review NO; Basophils Percent Auto 0.5 % (0-2); Hematocrit 32.6 % (36-46); Hemoglobin 11.1 g/dL (12.0-16.0); Lymphocytes Percent Auto 12.1 % (25-40); Mean Corpuscular HGB Conc 33.9 % (30-36); Mean Corpuscular Hemoglobin 28.5 PG (26-34); Monocytes Percent Auto 15.7 % (3-14); Neutrophils Absolute Auto 6900 /uL (1500-7000); Neutrophils Percent Auto 71.7 % (50-75); Platelet Count 493 X10^3/uL (150-400); Prothrombin Time 46.5 SECONDS (10.1-12.7); Red Blood Cell Count 3.89 X10^6/uL (4.0-5.2); Red Cell Distribution Width 18.7 % (11.6-14.8); White Blood Cell Count 9.6 X10^3/uL (4.5-11.0)
[2022-10-18 05:41] LABS: Basophils Absolute Auto 0 /uL (0-100); Eosinophils Absolute Auto 0 /uL (0-450); Lymphocytes Absolute Auto 1200 /uL (1100-4500); Monocytes Absolute Auto 1500 /uL (0-900)
[2022-10-18 05:46] LABS: BUN Creatinine Ratio 18.8 (6-22); Blood Urea Nitrogen 19 mg/dL (7-17); Calcium 8.6 mg/dL (8.4-10.2); Carbon Dioxide 28 mmol/L (22-32); Chloride 96 mmol/L (98-107); Estimated Glomerular Filt Rate 58 mL/min (>60); Glucose 185 mg/dL (80-110); HEMOLYSIS < 15 (0-50); Potassium 4.4 mmol/L (3.4-5.1); Sodium 132 mmol/L (137-145)
[2022-10-18] MEDS: LEVOTHYROXINE 75 MCG TABLET PO (06:30)
[2022-10-18] MEDS: INSULIN GLARGINE 100 UNIT/ML 3ML PEN 25 UNIT SUBCUT (08:25)
[2022-10-18] MEDS: INSULIN LISPRO 100 UNIT/ML 3ML VIAL SUBCUT ×4 (08:25→21:14)
[2022-10-18] MEDS: cloNIDine 0.1 MG TABLET 0.05 MG PO ×2 (08:26→21:10)
[2022-10-18] MEDS: SENNOSIDES 8.6 MG TABLET PO (08:26)
[2022-10-18] MEDS: PANTOPRAZOLE 40 MG VIAL IV ×2 (08:27→21:08)
[2022-10-18] MEDS: FUROSEMIDE 40 MG TABLET PO ×2 (08:27→17:26)
[2022-10-18] MEDS: predniSONE 5 MG TABLET PO (08:27)
[2022-10-18] MEDS: SODIUM CHLORIDE 0.9% FLUSH 10 ML IV ×2 (08:28→21:24)
[2022-10-18] MEDS: ALBUTEROL/IPRATROPIUM 3 ML AMPUL INH (09:04)
--- NOTE | 2022-10-18 09:34 | CM.DPC ---
DCP Home Infusion Per MD, pt likely will need 7-10 days IV Cefepime Q12 and will have midline placed today. SW met bedside with pt and spouse and they confirm they are aware of the IV Abx need and confirm they are currently still open with [facility] for IVIG and agreeable with [facility] to manage the IV Abx as well. Pt and spouse also confirm that with [facility] they remain open for OT, but pt states she is so fatigued and weak from her admission that she is agreeable with including RN and PT as well. SW faxed updated MD prog note to [facility] to review. Per PT, recommending home with spouse assist and HH. SW faxed referral to [facility] for the IVAbx and called [facility] to alert him that pt getting close to discharge, possibly tomorrow and they will review cristhian. Plan: SW to follow for midline to be placed and [facility] review to confirm no issues with [facility] MCR and Cefepime for plan of home with spouse assist and Resume [facility] with OT/PT/RN and [facility]. MACKENZIE Love
--- NOTE | 2022-10-18 15:12 | PT-IP ANOTE ---
Pt reports being too tired to work with PT today and would like us to come back tomorrow.
--- NOTE | 2022-10-18 15:34 | P.PN_ITS ---
Subjective Subjective Interval history: 71-year-old female with common variable immunodeficiency with Q three-week IVIG infusions and prednisone, AFib on warfarin anticoagulation previously complicated by hematoma development, previous PE with IVC filter in place, heart failure with preserved ejection fraction, NSTEMI in January 2022, obstructive sleep apnea, diabetes mellitus type 2, asthma, chronic hip and back pain on fentanyl patch, hypothyroidism, hypertension, hyperlipidemia, multiple prior episodes of pneumonia with Pseudomonas, stenotrophomonas, and MRSA who is on chronic azithromycin as well as chronic hypoxic respiratory failure on 5 L nasal cannula who was admitted with sepsis secondary to right lower lobe pneumonia in the setting of chronic immunodeficiency, as well as acute on chronic hypoxic respiratory failure. She is more weak and tired today, remains near her baseline O2. No nausea or vomiting. She is working with OT. Midline was placed in case of possible discharge, though 7 days of antibiotics to end on 10/20. Exam Vital Signs (past 8 hours): - 10/18/22 08:01 10/18/22 08:00 10/18/22 09:05 Temperature 98.2 F Pulse Rate 99 H Respiratory Rate 43 H Blood Pressure Pulse Oximetry 94 93 Oxygen Delivery Method Nasal Cannula Oxygen Flow Rate 5 10/18/22 08:00 10/18/22 08:30 10/18/22 09:00 Temperature Pulse Rate 94 H 106 H Respiratory Rate 31 H 35 H Blood Pressure Pulse Oximetry 95 93 Oxygen Delivery Method Nasal Cannula Oxygen Flow Rate 10/18/22 09:30 10/18/22 10:00 10/18/22 10:30 Temperature Pulse Rate 88 92 H 90 Respiratory Rate 23 25 H 21 Blood Pressure Pulse Oximetry 94 92 95 Oxygen Delivery Method Oxygen Flow Rate 10/18/22 11:00 10/18/22 11:30 10/18/22 12:00 Temperature Pulse Rate 88 90 95 H Respiratory Rate 24 20 25 H Blood Pressure Pulse Oximetry 96 96 94 Oxygen Delivery Method Oxygen Flow Rate 10/18/22 12:11 10/18/22 12:11 10/18/22 14:49 Temperature Pulse Rate 92 H 91 H Respiratory Rate 27 H Blood Pressure 98/60 167/68 H Pulse Oximetry 95 Oxygen Delivery Method Oxygen Flow Rate Fraction of Inspired Oxygen 40 SaO2/FiO2 Ratio 237 Oxygen Delivery Method Nasal Cannula Oxygen Flow Rate 5 Narrative Exam Narrative: GEN: Alert and oriented x 3, acutely and chronically ill-appearing HEENT:NC, Face symmetric CHEST: Respiratory excursions symmetric, coarse breathsounds but improved since admission. CV:?irregularly irregular, no M/R/G ABD: Soft, NT/ND EXTR:? Erythema to the bilateral lower extremities in the pretibial area is improved today, warm, well perfused, no C/C/E, significant wrinkling to the skin of the lower extremities consistent with venous stasis changes SKIN: warm and dry, no rash NEURO: Alert and oriented x 3, moving all extremities Objective Labs 10/18/22 04:39 10/18/22 04:39 Labs: Laboratory Results - last 24 hr 10/18/22 10/18/22 10/18/22 04:39 04:39 04:39 WBC 9.6 RBC 3.89 L Hgb 11.1 L Hct 32.6 L MCV 84.0 MCH 28.5 MCHC 33.9 RDW 18.7 H Plt Count 493 H Neut % (Auto) 71.7 Lymph % (Auto) 12.1 L [place] % (Auto) 15.7 H Eos % (Auto) 0.0 L Baso % (Auto) 0.5 Neut # (Auto) 6900 Lymph # (Auto) 1200 [place] # (Auto) 1500 H Eos # (Auto) 0 Baso # (Auto) 0 PT 46.5 H INR 4.0 H Sodium 132 L Potassium 4.4 Chloride 96 L Carbon Dioxide 28 BUN 19 H Creatinine 1.01 Estimated GFR 58 L BUN/Creatinine Ratio 18.8 Glucose 185 H Calcium 8.6 PFSH Medical History Abnormal chest xray (~1979) Anemia Ankle pain Anticoagulated Asthma (~1959) Bronchiectasis (~2006) Cervical spine disease Chronic back pain Colon polyps (~2015) Degenerative joint disease of spine (~2001) Diabetes mellitus, type II (~2009) Eczema Fibromyalgia Foot pain Hoarseness Hyperlipidemia Hypertension Hypothyroidism Migraines (~1964) 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 Osteopenia Pneumonia Pneumonia Recurrent sinusitis (~1970) Restless leg syndrome Shoulder pain (~03/2018) Sleep apnea Wears glasses Surgical History Anesthesia History of carpal tunnel release History of cataract removal with insertion of prosthetic lens (~2014) History of section History of laminectomy (~2002) History of spinal fusion (~2012) History of thumb surgery Family History Father Stroke Mother Hypertension Brother Cerebral aneurysm Prostate cancer Diabetes mellitus Hypertension Stroke Brother Arthritis Hyperlipidemia Hypertension Sister History of kidney cancer Hypertension Grandfather Cancer Grandmother Cancer Other Family history non-contributory Social History marital status: household members: spouse lives independently: Yes occupational status: previously employed Smoking Status: Never smoker alcohol intake: current substance use type: does not use Assessment & Plan Assessment & Plan narrative: 1. Sepsis secondary to pseudomonas right lower lobe pneumonia in the setting of chronic immunodeficiency On admission, she was febrile with leukocytosis and altered mental status.? She was initiated on cefepime, azithro, and vancomycin.? Azithro d/c'd and Levaquin added on HD#2. Leukocytosis now resolved. down from 17.6 yesterday.? She is chronically on prednisone 5 mg daily, which puts her at lower risk for adrenal insufficiency.? No evidence of adrenal insufficiency at this time. - sputum cultures with pseudomonas, narrowed cefepime only based on prior cultures from May. Prior cultures with intermediate resistance to Levofloxacin. Will need likely 7-10 days of antibiotics, given prior resistance this will likely need to be IV. Day 7 will be on 10/20, consider 3-5 additional days once able to discharge home. - unfortunately cultures are send-outs for sensitivities. - will need outpatient IV access, ideally midline. Ordered midline but outside service over the holiday unable to perform they state due to elevated INR. 2. Bilateral pneumonia in a chronically immunosuppressed patient Continue cefepime as noted above. benadryl prn for pruritis 3. Acute on chronic hypoxic respiratory failure Now improved to 5L via NC from HFNC. 4. CVID Receives every 3 week doses of IVIG.? She is on Hizintra q week which has been held. 5. Acute metabolic encephalopathy, improving [place] to be multifactorial from sepsis, pneumonia, and respiratory failure. Improving. 6. Hypomagnesemia, hypokalemia She has had borderline hypomagnesemia with a magnesium level of 1.7 on admission.? K 3.3 today, will replete 7. History of pulmonary embolism Status post IVC filter placement.? Also on warfarin anticoagulation. 8. Atrial fibrillation With RVR She is now back on warfarin anticoagulation.? INR remains supratherapeutic today. Spouse noted that when she restarted warfarin 10 days prior to admission, she was placed on 5mg. She was up to an INR>8 within 3 days. She then was started on 1mg/day. Her INR was supratherapeutic last week and it was held for a day and she was restarted again at 1mg/day. Will hold warfarin until INR 2-3. 9. Chronic heart failure with preserved ejection fraction Takes Lasix 40 mg twice daily.? BNP was increased at 3730 on admission.? Furosemide changed to 20 mg IV BID yesterday d/t encephalopathy. Diuresed 2175/24 hrs. Now on home oral dosing. 10. Diabetes mellitus type 2 On Lantus 30 units daily.? Hemoglobin A1c in August of this year was 6.8%.? Continue sliding scale.? She did have a low BG at 69 during admission, lantus was then decreased to 25 units for now. Improved BS now. No changes necessary. 11. Chronic pain syndrome Continue usual fentanyl 37 mcg/hour as well as oxycodone 15 mg every 6 hours as needed 12. Neuropathy Continue duloxetine and amitriptyline 13. Asthma On Fasenra as an outpatient q8 wks, as well as Wixela, Advair, Singulair, and duonebs. 14. Restless leg syndrome Continue Mirapex 15. Hypothyroidism Continue usual outpatient dose of levothyroxine 16. Hyperlipidemia Continue atorvastatin 17. GERD On Protonix b.i.d. 18. Class 3 obesity BMI is 41.5.? She is at significantly higher risk of morbidity and mortality related to her obesity and would benefit from weight reduction. Code status DNR DNI Prophylaxis On warfarin, INR elevated now on hold Disposition Remains acute care. Possible discharge home with home health tomorrow if feeling improved to complete antibiotic therapy at home with [facility].
[2022-10-18] MEDS: WARFARIN 1 MG TABLET PO (17:26)
[2022-10-18] MEDS: DULOXETINE 30 MG CAPSULE PO (17:26)
[2022-10-18] MEDS: MORPHINE 2 MG/ML INJ IV (17:45)
[2022-10-18] MEDS: PROCHLORPERAZINE 10 MG/2 ML VIAL 5 MG IV (17:50)
[2022-10-18] MEDS: NORTRIPTYLINE HCL 25 MG CAPSULE PO (21:09)
[2022-10-18] MEDS: PRAMIPEXOLE 0.25 MG TABLET 0.5 MG PO (21:09)
[2022-10-19] VITALS (61 sets, daily range): BP systolic 110–147; BP diastolic 57–89; PULSE 75–93; RESP 16–22; TEMP 36.2–36.7; O2SAT 87–100
[2022-10-19] MEDS: MORPHINE 2 MG/ML INJ IV ×5 (01:45→20:55)
[2022-10-19] MEDS: CEFEPIME 2 GM in SODIUM CHLORIDE 0.9% 100 ML IV ×3 (01:50→21:13)
[2022-10-19] MEDS: dilTIAZem 30 MG TABLET PO ×3 (03:46→14:26)
[2022-10-19 05:14] LABS: Add Manual Diff / Slide Review NO; Basophils Absolute Auto 0 /uL (0-100); Basophils Percent Auto 0.4 % (0-2); Eosinophils Absolute Auto 0 /uL (0-450); Hematocrit 32.3 % (36-46); Hemoglobin 10.6 g/dL (12.0-16.0); Lymphocytes Absolute Auto 1300 /uL (1100-4500); Lymphocytes Percent Auto 12.2 % (25-40); Mean Corpuscular HGB Conc 32.8 % (30-36); Mean Corpuscular Hemoglobin 27.7 PG (26-34); Mean Corpuscular Volume 84.2 fL (80-100); Monocytes Absolute Auto 1400 /uL (0-900); Monocytes Percent Auto 12.9 % (3-14); Neutrophils Absolute Auto 8200 /uL (1500-7000); Neutrophils Percent Auto 74.5 % (50-75); Platelet Count 472 X10^3/uL (150-400); Red Blood Cell Count 3.83 X10^6/uL (4.0-5.2); Red Cell Distribution Width 18.9 % (11.6-14.8)
[2022-10-19 05:16] LABS: INR 4.4 (0.9-1.3)
[2022-10-19 05:23] LABS: BUN Creatinine Ratio 25.9 (6-22); Blood Urea Nitrogen 21 mg/dL (7-17); Calcium 8.4 mg/dL (8.4-10.2); Carbon Dioxide 30 mmol/L (22-32); Chloride 93 mmol/L (98-107); Estimated Glomerular Filt Rate > 60 mL/min (>60); Glucose 202 mg/dL (80-110); HEMOLYSIS < 15 (0-50); Sodium 128 mmol/L (137-145)
[2022-10-19] MEDS: ALBUTEROL 2.5 MG/3 ML NEB (ADULT) INH ×4 (05:26→21:13)
[2022-10-19] MEDS: LEVOTHYROXINE 75 MCG TABLET PO (05:57)
[2022-10-19] MEDS: INSULIN LISPRO 100 UNIT/ML 3ML VIAL SUBCUT ×4 (07:53→20:51)
[2022-10-19] MEDS: INSULIN GLARGINE 100 UNIT/ML 3ML PEN 30 UNIT SUBCUT (07:55)
[2022-10-19] MEDS: FUROSEMIDE 40 MG TABLET PO ×2 (07:56→17:36)
[2022-10-19] MEDS: PANTOPRAZOLE 40 MG VIAL IV ×2 (08:00→20:53)
[2022-10-19] MEDS: DULOXETINE 30 MG CAPSULE PO (08:01)
[2022-10-19] MEDS: predniSONE 5 MG TABLET PO (08:01)
[2022-10-19] MEDS: cloNIDine 0.1 MG TABLET 0.05 MG PO ×2 (08:01→20:52)
[2022-10-19] MEDS: ALBUTEROL/IPRATROPIUM 3 ML AMPUL INH (09:56)
--- NOTE | 2022-10-19 10:34 | PT.IPTN ---
Current Diagnoses Sepsis, unspecified organism (10/13/22) Physical Therapy Treatment Note M2 PT-IP Current Condition Start: 10/17/22 15:10 Freq: NEEDED Status: Active Protocol: Document 10/17/22 16:17 AMB (Rec: 10/17/22 16:33 AMB [id number]) Physical Therapy Current Condition Current Condition Evaluation Date 10/17/22 Treatment Diagnosis pneumonia, weakness Onset Date 10/13/22 M3 PT-IP Subjective Start: 10/17/22 15:10 Freq: NEEDED Status: Active Protocol: Document 10/19/22 09:50 KS (Rec: 10/19/22 11:32 KS [id number]) Subjective Physical Therapy Visit Type Type Treatment Note Visit Start Time 09:50 Visit Stop Time 10:34 Total Visit Minutes 26 Notes Split treatment 9:50-10:00, 10 :18-10:34 Number of DEPUTY PROBATION OFFICER Visits 1 Physical Therapy Visit Comments Patient Comments Pt needs to use BSC. and GRANITE POLISHER in room for assistance . M4 PT-IP Mobility and Gait Start: 10/17/22 15:10 Freq: NEEDED Status: Active Protocol: Document 10/19/22 09:50 KS (Rec: 10/19/22 11:32 KS [id number]) PT-Bed Mobility Assessment Supine to Sit Supine to Sit Moderate Assistance,2 Person Assistance,Head of Bed Elevated,Bedrails Sit to Supine Sit to Supine Maximum Assistance,2 Person Assistance PT-Transfer Assessment Sit to and From Stand Sit to and from Stand Moderate Assistance,1 Person Assistance,Use of Upper Extremities Equipment Transfer Assistive Device Bed Rail,Gait Belt,Front Wheeled Walker Transfers Transfer Destination Bed,Bedside Commode Transfer Technique Stand Step Pivot Transfer Ability Level of Assist Minimal Assistance,Moderate Assistance,1 Person Assistance ,Use of Upper Extremities Comments Mobility Comments Pt in bed upon arrival w/ nursing staff, needing to use BSC. Mod A x2 for sup<>sit, Max A for scooting EOB. Pt required rest breaks frequently due to SOB and poor activity tolerance. Pt required Mod A for sit<>stand w/ FWW and Mod A and cues for stand step pivot to BSC. Returned after BM, Mod A for sit<>Stand and stand step pivot back to bed. Tilted bed to assist pt w/ sitting due to pts height. Pts brought step stool which was helpful for pt to push from to scoot hips back further in bed. Max A x2 for sit<>sup and Max A x2-3 repositioning in bed. Pt instructed in LE exercises including ankle pumps, glute sets, and quad sets. Left w/ all needs in reach and alarm on. Gait Assessment Factors Limiting Gait Function Factors Limiting Gait Function Decreased Activity Tolerance, Decreased Strength,Pain,Poor Balance,Respiratory Distress Comments Gait Comments stand step pivot only M5 PT-IP Objective Assessments Start: 10/17/22 15:10 Freq: NEEDED Status: Active Protocol: Document 10/17/22 16:17 AMB (Rec: 10/17/22 16:33 AMB [id number]) Orientation Orientation/Cognition Level of Alertness Alert Strength Upper Extremity Strength Assessment Within Functional Limits Lower Extremity Strength Hip 3 Knee 3 Ankle 3 Comments Strength Comments Generally weak LEs M6 PT-IP Treatment Start: 10/17/22 15:10 Freq: NEEDED Status: Active Protocol: Document 10/19/22 09:50 KS (Rec: 10/19/22 11:32 KS [id number]) Physical Therapy Treatment Exercises Exercises Ankle Pumps,Gluteal Sets,Quad Sets M7 PT-IP Assessment and Plan Start: 10/17/22 15:10 Freq: NEEDED Status: Active Protocol: Document 10/19/22 09:50 KS (Rec: 10/19/22 11:32 KS [id number]) PT Summary Assessment and Plan Potential Rehabilitation Potential Good Summary Impairments Strength,Bed Mobility, Transfers,Gait,Activity Tolerance Progress Towards Goals Slow Progress due to Medical Issues Assessment Summary Pt limited by weakness, poor activity tolerance, and medical issues. Able to perform stand step pivot transfers from bed to bedside commode and back. Needs frequent rest breaks d/t SOB and fatigue. states pt has been using w/c mostly at home. Will continue to progress pt as she is able to tolerate. If she goes home,she will need 24/7 assist and HHPT. Goals Bed Mobility Goal Standby Assistance Transfer Goal Standby Assistance Gait Goal Contact Guard Assistance Gait Distance 200 Days to Meet Goals 7 Frequency of Treatment Frequency Of Treatment Once a Day Treatment Plan Physical Therapy Treatment Plan Bed Mobility Training,Transfer Training,Gait Training, Therapeutic Exercise,Balance Retraining,Neuromuscular Re-ed Recommendations To Nursing Amount of Assist Needed 2 Person Assist Discharge Recommendations PT Discharge Recommendations Home with 24/7 Assist Available,Home Health Transportation Needs at Discharge Private Vehicle
--- NOTE | 2022-10-19 15:36 | P.PN_ITS ---
Subjective Subjective Interval history: Patient still quite weak and a 2 person assist to transfer. INR 4.4 today despite holding warfarin. Exam Vital Signs (past 8 hours): - 10/19/22 08:01 10/19/22 08:19 10/19/22 08:00 Temperature 97.9 F Pulse Rate 76 92 H 86 Respiratory Rate 20 Blood Pressure 131/89 131/89 131/69 Pulse Oximetry 98 10/19/22 12:00 10/19/22 14:26 Temperature Pulse Rate 89 82 Respiratory Rate 16 Blood Pressure 125/62 125/63 Pulse Oximetry 92 Fraction of Inspired Oxygen 40 SaO2/FiO2 Ratio 240 Oxygen Delivery Method Nasal Cannula Oxygen Flow Rate 5 Narrative Exam Narrative: GEN: Alert and oriented x 3, acutely and chronically ill-appearing HEENT:NC, Face symmetric CHEST: Respiratory excursions symmetric, coarse breath sounds but improved since admission. CV:?irregularly irregular, no M/R/G ABD: Soft, NT/ND EXTR:? Erythema to the bilateral lower extremities in the pretibial area is improved today, warm, well perfused, no C/C/E, significant wrinkling to the skin of the lower extremities consistent with venous stasis changes SKIN: warm and dry, no rash NEURO: Alert and oriented x 3, moving all extremities Objective Labs 10/19/22 04:43 10/19/22 04:43 Labs: Laboratory Results - last 24 hr 10/19/22 10/19/22 10/19/22 04:43 04:43 04:43 WBC 11.0 RBC 3.83 L Hgb 10.6 L Hct 32.3 L MCV 84.2 MCH 27.7 MCHC 32.8 RDW 18.9 H Plt Count 472 H Neut % (Auto) 74.5 Lymph % (Auto) 12.2 L [place] % (Auto) 12.9 Eos % (Auto) 0.0 L Baso % (Auto) 0.4 Neut # (Auto) 8200 H Lymph # (Auto) 1300 [place] # (Auto) 1400 H Eos # (Auto) 0 Baso # (Auto) 0 PT 51.0 H INR 4.4 H Sodium 128 L Potassium 4.0 Chloride 93 L Carbon Dioxide 30 BUN 21 H Creatinine 0.81 Estimated GFR > 60 BUN/Creatinine Ratio 25.9 H Glucose 202 H Calcium 8.4 PFSH Medical History Abnormal chest xray (~1979) Anemia Ankle pain Anticoagulated Asthma (~1959) Bronchiectasis (~2006) Cervical spine disease Chronic back pain Colon polyps (~2015) Degenerative joint disease of spine (~2001) Diabetes mellitus, type II (~2009) Eczema Fibromyalgia Foot pain Hoarseness Hyperlipidemia Hypertension Hypothyroidism Migraines (~1964) 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 Osteopenia Pneumonia Pneumonia Recurrent sinusitis (~1970) Restless leg syndrome Shoulder pain (~03/2018) Sleep apnea Wears glasses Surgical History Anesthesia History of carpal tunnel release History of cataract removal with insertion of prosthetic lens (~2014) History of section History of laminectomy (~2002) History of spinal fusion (~2012) History of thumb surgery Family History Father Stroke Mother Hypertension Brother Cerebral aneurysm Prostate cancer Diabetes mellitus Hypertension Stroke Brother Arthritis Hyperlipidemia Hypertension Sister History of kidney cancer Hypertension Grandfather Cancer Grandmother Cancer Other Family history non-contributory Social History marital status: household members: spouse lives independently: Yes occupational status: previously employed Smoking Status: Never smoker alcohol intake: current substance use type: does not use Assessment & Plan Assessment & Plan narrative: 1. Sepsis secondary to pseudomonas right lower lobe pneumonia in the setting of chronic immunodeficiency On admission, she was febrile with leukocytosis and altered mental status.? She was initiated on cefepime, azithro, and vancomycin.?She is chronically on prednisone 5 mg daily, which puts her at lower risk for adrenal insufficiency.? No evidence of adrenal insufficiency at this time. - sputum cultures with pseudomonas, narrowed cefepime only based on prior cultures from May. Prior cultures with intermediate resistance to Levofloxacin. However cannot use quinolones with elevated INR. - unfortunately cultures are send-outs for sensitivities. - spoke with ID on 10/20 who recommended 14 days total of IV cefepime 2g q8h, to finish on 10/27 - arranging home infusions, has midline in place 2. Bilateral pneumonia in a chronically immunosuppressed patient Continue cefepime as noted above. benadryl prn for pruritis 3. Acute on chronic hypoxic respiratory failure Now improved to 5L via NC from HFNC which is her baseline. 4. CVID Receives every 3 week doses of IVIG.? She is on Hizintra q week which has been held. 5. Acute metabolic encephalopathy, improving [place] to be multifactorial from sepsis, pneumonia, and respiratory failure. Improving. 6. Hypomagnesemia, hypokalemia She has had borderline hypomagnesemia with a magnesium level of 1.7 on admission.? 7. History of pulmonary embolism Status post IVC filter placement.? Also on warfarin anticoagulation. 8. Atrial fibrillation She is now back on warfarin anticoagulation.? INR remains supratherapeutic. Spouse noted that when she restarted warfarin 10 days prior to admission, she was placed on 5mg. She was up to an INR>8 within 3 days. She then was started on 1mg/day. Will hold warfarin until INR 2-3. Currently 4.4. Stopped diltiazem due to potential elevation in INR. HR has been controlled. 9. Chronic heart failure with preserved ejection fraction Takes Lasix 40 mg twice daily.? BNP was increased at 3730 on admission.? Furosemide changed to 20 mg IV BID d/t encephalopathy. Diuresed 2175/24 hrs. Now on home oral dosing. 10. Diabetes mellitus type 2 On Lantus 30 units daily.? Hemoglobin A1c in August of this year was 6.8%.? Continue sliding scale.? She did have a low BG at 69 during admission, lantus was then decreased to 25 units for now. Improved BS now. No changes necessary. 11. Chronic pain syndrome Continue usual fentanyl 37 mcg/hour as well as oxycodone 15 mg every 6 hours as needed 12. Neuropathy Continue duloxetine and amitriptyline 13. Asthma On Fasenra as an outpatient q8 wks, as well as Wixela, Advair, Singulair, and duonebs. 14. Restless leg syndrome Continue Mirapex 15. Hypothyroidism Continue usual outpatient dose of levothyroxine 16. Hyperlipidemia Continue atorvastatin 17. GERD On Protonix b.i.d. 18. Class 3 obesity BMI is 41.5.? She is at significantly higher risk of morbidity and mortality related to her obesity and would benefit from weight reduction. 19. Acute on chronic hyponatremia, present on admission - Na initially 134, now dipped to 128 - start IVF Code status DNR DNI Prophylaxis On warfarin, INR elevated now on hold Disposition Home with [facility] IV abx on 10/20.
--- NOTE | 2022-10-19 16:01 | CM.DPC ---
DCP Cont: Per , consulted Dr. Whalen IDMD and confirmed IV Cefepime Q8 for total of 14 days and plan is for pt to discharge home tomorrow Sun if medically stable. SERGO updated Carroll at [facility] and he will determine a time for teach on Sunday either at the hospital or at home and has already been talking to pt's spouse. Carroll states they already have the IV abx orders from Dr. Whalen and therefore likely just need the discharge summary at d/c. SERGO confirmed with spouse that he remains agreeable and will remain in contact in [facility] for scheduling the teach time. Plan: SW to follow for plan of d/c home with spouse and [facility] following for IVabx course and Diane JACOBO RN/PT/OT. MACKENZIE Love
[2022-10-19] MEDS: SODIUM CHLORIDE 0.9% 1,000 ML 100 ML IV (17:17)
[2022-10-19] MEDS: PRAMIPEXOLE 0.25 MG TABLET 0.5 MG PO (20:55)
[2022-10-19] MEDS: NORTRIPTYLINE HCL 25 MG CAPSULE PO (20:55)
[2022-10-19] MEDS: PROCHLORPERAZINE 10 MG/2 ML VIAL 5 MG IV (21:12)
[2022-10-20] VITALS (34 sets, daily range): BP systolic 117–140; BP diastolic 59–100; PULSE 76–97; RESP 16–18; TEMP 36.1–37.4; O2SAT 88–99
[2022-10-20 04:49] LABS: Prothrombin Time 64.3 SECONDS (10.1-12.7)
[2022-10-20 04:56] LABS: INR 5.5 (0.9-1.3)
[2022-10-20] MEDS: LEVOTHYROXINE 75 MCG TABLET PO (05:51)
[2022-10-20] MEDS: CEFEPIME 2 GM in SODIUM CHLORIDE 0.9% 100 ML IV ×2 (05:51→13:40)
[2022-10-20] MEDS: PHYTONADIONE (VIT K1) 5 MG TABLET PO (08:07)
[2022-10-20] MEDS: INSULIN LISPRO 100 UNIT/ML 3ML VIAL SUBCUT ×4 (08:07→21:14)
[2022-10-20] MEDS: FUROSEMIDE 40 MG TABLET PO (08:08)
[2022-10-20] MEDS: INSULIN GLARGINE 100 UNIT/ML 3ML PEN 30 UNIT SUBCUT (08:08)
[2022-10-20] MEDS: ALBUTEROL/IPRATROPIUM 3 ML AMPUL INH ×2 (09:13→19:57)
[2022-10-20] MEDS: PANTOPRAZOLE 40 MG VIAL IV ×2 (09:36→20:58)
[2022-10-20] MEDS: MORPHINE 2 MG/ML INJ IV (09:36)
[2022-10-20] MEDS: DULOXETINE 30 MG CAPSULE PO (09:37)
[2022-10-20] MEDS: cloNIDine 0.1 MG TABLET 0.05 MG PO ×2 (09:37→20:59)
[2022-10-20] MEDS: predniSONE 5 MG TABLET PO (09:37)
[2022-10-20] MEDS: fentaNYL 12 MCG/PATCH TOP (09:56)
[2022-10-20] MEDS: fentaNYL 25 MCG/PATCH TOP (09:57)
--- NOTE | 2022-10-20 11:58 | CM.DPC ---
DCP Continued: DRY END TESTER reviewed EMR. Per provider in rounds, pending patient INR results, patient could either d/c today or tomorrow. Provider will recheck levels at 2pm today. Per Carroll at [facility], they can do at home teaching here at the hospital at 3:30pm. DRY END TESTER entered room and reintroduced self and role. Patient was accompanied by spouse Harjeet at bedside. DRY END TESTER told patient and spouse about 3:30pm plan. They are in agreement. DRY END TESTER updated nursing staff and provider on 3:30pm [facility] time. Plan: pending INR results/when medically stable, patient will d/c home either today or tomorrow home with spouse in POV. CM team will continue to follow closely. CM team will send final d/c summary to Diane to resume care. MACKENZIE Concepcion
--- NOTE | 2022-10-20 12:05 | PT.IPTN ---
Current Diagnoses Sepsis, unspecified organism (10/13/22) Physical Therapy Treatment Note M2 PT-IP Current Condition Start: 10/17/22 15:10 Freq: NEEDED Status: Active Protocol: Document 10/17/22 16:17 AMB (Rec: 10/17/22 16:33 AMB [id number]) Physical Therapy Current Condition Current Condition Evaluation Date 10/17/22 Treatment Diagnosis pneumonia, weakness Onset Date 10/13/22 M3 PT-IP Subjective Start: 10/17/22 15:10 Freq: NEEDED Status: Active Protocol: Document 10/20/22 11:56 ES (Rec: 10/20/22 12:04 ES [id number]) Subjective Physical Therapy Visit Type Type Treatment Note Visit Start Time 11:00 Visit Stop Time 11:24 Total Visit Minutes 24 Number of FILLER AND TRIMMER Visits 0 Physical Therapy Visit Comments Patient Comments Patient resting in bed, present. Patient agreeable to work with PT and get up to recliner. Was intermittently confused during treatment. C/o L knee pain; RN reported patient had already received morphine. M4 PT-IP Mobility and Gait Start: 10/17/22 15:10 Freq: NEEDED Status: Active Protocol: Document 10/20/22 11:56 ES (Rec: 10/20/22 12:04 ES [id number]) PT-Bed Mobility Assessment Supine to Sit Supine to Sit Moderate Assistance,2 Person Assistance,Head of Bed Elevated,Bedrails PT-Transfer Assessment Sit to and From Stand Sit to and from Stand Moderate Assistance,Use of Upper Extremities Equipment Transfer Assistive Device Bed Rail,Gait Belt,Front Wheeled Walker Transfers Transfer Destination Chair Transfer Technique Ambulated Transfer Ability Level of Assist Minimal Assistance,Use of Upper Extremities Comments Mobility Comments Patient required assist to move LE's to EOB and pushing trunk to sit, as well as cues for all sequencing and reorientation to task. She was able to sit EOB with close SBA with feet on step stool and BUE support. Patient up in recliner at end of session, call light within reach and in room. Gait Assessment Gait Gait Assistance Required: Minimum Assistance Distance (Feet) 3 Assistive Devices Assistive Device Gait Belt,Front Wheeled Walker Gait Deviations General Gait Pattern Decreased Stride Length, Decreased Feet Clearance, Flexed Trunk Factors Limiting Gait Function Factors Limiting Gait Function Decreased Activity Tolerance, Decreased Strength,Difficulty Following Directions,Pain PT-Balance Assessment Sitting Balance and Reactions Static Sitting Balance Ability Fair Dynamic Sitting Balance Ability Fair Standing Balance and Reactions Static Standing Balance Ability Fair Dynamic Standing Balance Ability Fair Device Used FWW M5 PT-IP Objective Assessments Start: 10/17/22 15:10 Freq: NEEDED Status: Active Protocol: Document 10/17/22 16:17 AMB (Rec: 10/17/22 16:33 AMB [id number]) Orientation Orientation/Cognition Level of Alertness Alert Strength Upper Extremity Strength Assessment Within Functional Limits Lower Extremity Strength Hip 3 Knee 3 Ankle 3 Comments Strength Comments Generally weak LEs M6 PT-IP Treatment Start: 10/17/22 15:10 Freq: NEEDED Status: Active Protocol: Document 10/20/22 11:56 ES (Rec: 10/20/22 12:04 ES [id number]) Physical Therapy Treatment Exercises Exercises Ankle Pumps,Gluteal Sets, Supine Hip Abduction,Short Arc Quads M7 PT-IP Assessment and Plan Start: 10/17/22 15:10 Freq: NEEDED Status: Active Protocol: Document 10/20/22 11:56 ES (Rec: 10/20/22 12:04 ES [id number]) PT Summary Assessment and Plan Summary Impairments Strength,Bed Mobility, Transfers,Gait,Activity Tolerance Progress Towards Goals Slow Progress due to Medical Issues Assessment Summary Patient continues to have poor activity tolerance due to confusion, weakness, and decreased aerobic capacity. SPO2 decreased to upper 80's with mobility, recovered to 90 's within 1 min rest. She required assist to participate in LE ex's due to difficulty following commands. She will benefit from further therapy to increase strength and activity tolerance for increased independence and safety with mobility. Goals Bed Mobility Goal Standby Assistance Transfer Goal Standby Assistance Gait Goal Contact Guard Assistance Gait Distance 200 Days to Meet Goals 7 Frequency of Treatment Frequency Of Treatment Once a Day Treatment Plan Physical Therapy Treatment Plan Bed Mobility Training,Transfer Training,Gait Training, Therapeutic Exercise,Balance Retraining,Neuromuscular Re-ed Other Recommendations and Next Treatment Progress ambulation as able. Focus Continue ther ex for strengthening. Recommendations To Nursing Amount of Assist Needed 2 Person Assist Discharge Recommendations PT Discharge Recommendations Home with 06/11 Assist Available,Home Health Transportation Needs at Discharge Private Vehicle
[2022-10-20] MEDS: METOPROLOL ER 25 MG TABLET PO (13:12)
--- NOTE | 2022-10-20 14:00 | PM.PN.1 ---
Subjective Subjective Interval history: INR today 5.5 up from 4.4. Vitamin K given. No evidence of bleeding, but patient feels very tired and doesn't think she's ready for home yet today. Exam Vital Signs (past 8 hours): - 10/20/22 07:00 10/20/22 07:00 10/20/22 09:16 Temperature 97.6 F Pulse Rate 95 H Respiratory Rate 18 Blood Pressure 117/59 L Pulse Oximetry 94 96 Oxygen Delivery Method Nasal Cannula Nasal Cannula Oxygen Flow Rate 4 10/20/22 09:37 10/20/22 06:30 10/20/22 07:00 Temperature Pulse Rate 92 H 97 H 93 H Respiratory Rate Blood Pressure 117/59 L Pulse Oximetry 88 L 97 Oxygen Delivery Method Oxygen Flow Rate 10/20/22 07:30 10/20/22 07:57 10/20/22 07:57 Temperature Pulse Rate 95 H 94 H Respiratory Rate Blood Pressure 117/59 L Pulse Oximetry 98 96 Oxygen Delivery Method Oxygen Flow Rate 10/20/22 08:00 10/20/22 08:30 10/20/22 09:00 Temperature Pulse Rate 91 H 93 H 94 H Respiratory Rate Blood Pressure Pulse Oximetry 96 94 94 Oxygen Delivery Method Oxygen Flow Rate 10/20/22 09:30 10/20/22 10:00 10/20/22 10:30 Temperature Pulse Rate 85 97 H 83 Respiratory Rate Blood Pressure Pulse Oximetry 96 92 96 Oxygen Delivery Method Oxygen Flow Rate 10/20/22 11:00 10/20/22 11:30 10/20/22 11:36 Temperature Pulse Rate 93 H 88 83 Respiratory Rate Blood Pressure Pulse Oximetry 95 94 97 Oxygen Delivery Method Oxygen Flow Rate 10/20/22 11:36 10/20/22 13:12 Temperature Pulse Rate 84 Respiratory Rate Blood Pressure 140/61 140/61 Pulse Oximetry Oxygen Delivery Method Oxygen Flow Rate Fraction of Inspired Oxygen 36 SaO2/FiO2 Ratio 269 Oxygen Delivery Method Nasal Cannula Oxygen Flow Rate 4 Narrative Exam Narrative: GEN: Alert and oriented x 3, acutely and chronically ill-appearing HEENT:NC, Face symmetric CHEST: Respiratory excursions symmetric, coarse breath sounds but improved since admission. CV:?irregularly irregular, no M/R/G ABD: Soft, NT/ND EXTR:? Erythema to the bilateral lower extremities in the pretibial area is improved today, warm, well perfused, no C/C/E, significant wrinkling to the skin of the lower extremities consistent with venous stasis changes SKIN: warm and dry, no rash NEURO: Alert and oriented x 3, moving all extremities Objective Labs 10/19/22 04:43 10/19/22 04:43 Labs: Laboratory Results - last 24 hr 10/20/22 04:05 PT 64.3 H D INR 5.5 H* PFSH Medical History Abnormal chest xray (~1979) Anemia Ankle pain Anticoagulated Asthma (~1959) Bronchiectasis (~2006) Cervical spine disease Chronic back pain Colon polyps (~2015) Degenerative joint disease of spine (~2001) Diabetes mellitus, type II (~2009) Eczema Fibromyalgia Foot pain Hoarseness Hyperlipidemia Hypertension Hypothyroidism Migraines (~1964) 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 Osteopenia Pneumonia Pneumonia Recurrent sinusitis (~1970) Restless leg syndrome Shoulder pain (~03/2018) Sleep apnea Wears glasses Surgical History Anesthesia History of carpal tunnel release History of cataract removal with insertion of prosthetic lens (~2014) History of section History of laminectomy (~2002) History of spinal fusion (~2012) History of thumb surgery Family History Father Stroke Mother Hypertension Brother Cerebral aneurysm Prostate cancer Diabetes mellitus Hypertension Stroke Brother Arthritis Hyperlipidemia Hypertension Sister History of kidney cancer Hypertension Grandfather Cancer Grandmother Cancer Other Family history non-contributory Social History marital status: household members: spouse lives independently: Yes occupational status: previously employed Smoking Status: Never smoker alcohol intake: current substance use type: does not use Assessment & Plan Assessment & Plan narrative: 1. Sepsis secondary to pseudomonas right lower lobe pneumonia in the setting of chronic immunodeficiency On admission, she was febrile with leukocytosis and altered mental status.? She was initiated on cefepime, azithro, and vancomycin.?She is chronically on prednisone 5 mg daily, which puts her at lower risk for adrenal insufficiency.? No evidence of adrenal insufficiency at this time. - sputum cultures with pseudomonas, narrowed cefepime only based on prior cultures from May. Prior cultures with intermediate resistance to Levofloxacin. However cannot use quinolones with elevated INR. - unfortunately cultures are send-outs for sensitivities. - spoke with ID on 10/20 who recommended 14 days total of IV cefepime 2g q8h, to finish on 10/27 - arranging home infusions, has midline in place - will see Dr. Marlee HILL in clinic on 10/27 at 10:30am 2. Bilateral pneumonia in a chronically immunosuppressed patient Continue cefepime as noted above. benadryl prn for pruritis 3. Acute on chronic hypoxic respiratory failure Now improved to 5L via NC from HFNC which is her baseline. 4. CVID Receives every 3 week doses of IVIG.? She is on Hizintra q week which has been held. 5. Acute metabolic encephalopathy, improving [place] to be multifactorial from sepsis, pneumonia, and respiratory failure. Improving. 6. Hypomagnesemia, hypokalemia She has had borderline hypomagnesemia with a magnesium level of 1.7 on admission.? 7. History of pulmonary embolism Status post IVC filter placement.? Also on warfarin anticoagulation. 8. Atrial fibrillation with supratherapeutic INR She is now back on warfarin anticoagulation.? INR remains supratherapeutic. Spouse noted that when she restarted warfarin 10 days prior to admission, she was placed on 5mg. She was up to an INR>8 within 3 days. She then was started on 1mg/day. Will hold warfarin until INR 2-3. Currently 4.4 then 5.5. -give dose of 5mg po vitamin K and recheck INR -Stopped diltiazem due to potential elevation in INR. Changed to metoprolol XL 25mg daily. 9. Chronic heart failure with preserved ejection fraction Takes Lasix 40 mg twice daily.? BNP was increased at 3730 on admission.? Furosemide changed to 20 mg IV BID d/t encephalopathy. Diuresed 2175/24 hrs. Now on home oral dosing. 10. Diabetes mellitus type 2 On Lantus 30 units daily.? Hemoglobin A1c in August of this year was 6.8%.? Continue sliding scale.? She did have a low BG at 69 during admission, lantus was then decreased to 25 units for now. Improved BS now. No changes necessary. 11. Chronic pain syndrome Continue usual fentanyl 37 mcg/hour as well as oxycodone 15 mg every 6 hours as needed 12. Neuropathy Continue duloxetine and amitriptyline 13. Asthma On Fasenra as an outpatient q8 wks, as well as Wixela, Advair, Singulair, and duonebs. 14. Restless leg syndrome Continue Mirapex 15. Hypothyroidism Continue usual outpatient dose of levothyroxine 16. Hyperlipidemia Continue atorvastatin 17. GERD On Protonix b.i.d. 18. Class 3 obesity BMI is 41.5.? She is at significantly higher risk of morbidity and mortality related to her obesity and would benefit from weight reduction. 19. Acute on chronic hyponatremia, present on admission - Na initially 134, now dipped to 128 - started IVF Code status DNR DNI Prophylaxis On warfarin, INR elevated now on hold Disposition Home with infusion solutions IV abx on 10/20.
[2022-10-20 14:20] LABS: Hematocrit 33.2 % (36-46); Hemoglobin 10.8 g/dL (12.0-16.0); Mean Corpuscular HGB Conc 32.5 % (30-36); Mean Corpuscular Hemoglobin 27.7 PG (26-34); Mean Corpuscular Volume 85.1 fL (80-100); Platelet Count 544 X10^3/uL (150-400); Red Cell Distribution Width 18.9 % (11.6-14.8); White Blood Cell Count 10.3 X10^3/uL (4.5-11.0)
[2022-10-20 14:22] LABS: Add Manual Diff / Slide Review YES
[2022-10-20 14:27] LABS: INR 4.3 (0.9-1.3); Prothrombin Time 50.7 SECONDS (10.1-12.7)
[2022-10-20 14:31] LABS: BUN Creatinine Ratio 21.1 (6-22); Blood Urea Nitrogen 16 mg/dL (7-17); Calcium 8.6 mg/dL (8.4-10.2); Carbon Dioxide 30 mmol/L (22-32); Chloride 94 mmol/L (98-107); Estimated Glomerular Filt Rate > 60 mL/min (>60); Glucose 184 mg/dL (80-110); HEMOLYSIS < 15 (0-50); Potassium 3.5 mmol/L (3.4-5.1); Sodium 130 mmol/L (137-145)
[2022-10-20 14:38] LABS: Anisocytosis 1+; Neutrophils Absolute Manual 7622 /uL (3000-5900); Platelet Estimate Increased on smear; Poikilocytosis 1+; Total Cells Counted 100
[2022-10-20] MEDS: POTASSIUM CHLORIDE 20 MEQ TAB 40 MEQ PO (15:52)
[2022-10-20] MEDS: SODIUM CHLORIDE 0.9% 1,000 ML 100 ML IV ×2 (15:52→20:58)
--- NOTE | 2022-10-20 19:34 | PC.NURSE ---
pt has been confused and sleepy this shift; she got up to the chair with PT and 2 person asst, but was unable to stand and pivot to get back in bed; transferred w/ jayy lift; Dr Dwoning was notified of confusion and weakness/sleepiness; new orders rec'd ; has been at bedside all day
[2022-10-20] MEDS: NORTRIPTYLINE HCL 25 MG CAPSULE PO (20:58)
[2022-10-20] MEDS: PRAMIPEXOLE 0.25 MG TABLET 0.5 MG PO (20:58)
[2022-10-20] MEDS: MELATONIN 3 MG TABLET 6 MG PO (20:59)
--- NOTE | 2022-10-20 21:41 | PC.NURSE ---
2230- Patient is markedly more confused this evening. at bedside. Patient is not distressed and all other vitals are wnl. Lungs are dimished posterior but clear. Intermitted cough. Will monitor closely.
--- NOTE | 2022-10-20 21:57 | PC.NURSE ---
2129- Patient is markedly more confused than she was yesterday. Patient is at bedside. Patient has a low grade temp but otherwise vitals are WNL. Lung are Dim but clear. 02 is at 5 liters patient uses this at home. Will monitor.
[2022-10-21] VITALS (12 sets, daily range): BP systolic 117–142; BP diastolic 57–77; PULSE 65–95; RESP 17–20; TEMP 36.1–36.8; O2SAT 92–98
[2022-10-21 05:27] LABS: INR 2.1 (0.9-1.3); Prothrombin Time 24.2 SECONDS (10.1-12.7)
[2022-10-21 05:29] LABS: Hematocrit 32.3 % (36-46); Hemoglobin 10.7 g/dL (12.0-16.0); Mean Corpuscular HGB Conc 33.1 % (30-36); Mean Corpuscular Hemoglobin 28.1 PG (26-34); Platelet Count 564 X10^3/uL (150-400); Red Blood Cell Count 3.81 X10^6/uL (4.0-5.2); Red Cell Distribution Width 19.1 % (11.6-14.8); White Blood Cell Count 8.4 X10^3/uL (4.5-11.0)
[2022-10-21 05:31] LABS: Add Manual Diff / Slide Review YES
[2022-10-21 05:33] LABS: Alanine Aminotransferase 15 IU/L (<35); Albumin 3.1 g/dL (3.5-5.0); Albumin Globulin Ratio 0.9 (1.0-2.8); Alkaline Phosphatase 86 U/L (38-126); Aspartate Aminotransferase 21 IU/L (14-36); BUN Creatinine Ratio 20.5 (6-22); Bilirubin Total 0.3 mg/dL (0.2-1.3); Blood Urea Nitrogen 15 mg/dL (7-17); Calcium 8.7 mg/dL (8.4-10.2); Carbon Dioxide 32 mmol/L (22-32); Chloride 96 mmol/L (98-107); Estimated Glomerular Filt Rate > 60 mL/min (>60); Globulin 3.6 g/dL (1.7-4.1); Glucose 114 mg/dL (80-110); HEMOLYSIS < 15 (0-50); Potassium 3.7 mmol/L (3.4-5.1); Sodium 133 mmol/L (137-145); Total Protein 6.7 g/dL (6.3-8.2)
[2022-10-21 05:47] LABS: Neutrophils Absolute Manual 5292 /uL (3000-5900); Total Cells Counted 100
[2022-10-21 05:49] LABS: Anisocytosis 1+
[2022-10-21 05:50] LABS: Poikilocytosis 1+
[2022-10-21 05:51] LABS: Platelet Estimate Increased on smear
[2022-10-21] MEDS: LEVOTHYROXINE 75 MCG TABLET PO (06:30)
[2022-10-21 07:17] LABS: Procalcitonin 0.12 ng/mL (<0.5)
[2022-10-21] MEDS: predniSONE 5 MG TABLET PO (08:42)
[2022-10-21] MEDS: DULOXETINE 30 MG CAPSULE PO (08:42)
[2022-10-21] MEDS: METOPROLOL ER 25 MG TABLET PO (08:42)
[2022-10-21] MEDS: PANTOPRAZOLE 40 MG VIAL IV ×2 (08:42→21:02)
[2022-10-21] MEDS: SODIUM CHLORIDE 0.9% FLUSH 10 ML IV (08:43)
[2022-10-21] MEDS: INSULIN GLARGINE 100 UNIT/ML 3ML PEN 30 UNIT SUBCUT (08:43)
[2022-10-21] MEDS: cloNIDine 0.1 MG TABLET 0.05 MG PO ×2 (08:44→21:04)
[2022-10-21] MEDS: ALBUTEROL/IPRATROPIUM 3 ML AMPUL INH ×2 (09:01→19:44)
--- NOTE | 2022-10-21 09:48 | PC.NURSE ---
Dr Downing here to see pt; spoke w/ pt and about pt's condition, including repeated pneumonias, confusion/delerium, and options for rehab and/or hospice; verbalized understanding; will continue with current plans and attempt to get pt up with PT today; room lights on and HOB elevated; will try and keep pt more awake today in the hopes she will sleep better tonight and confusion will improve
--- NOTE | 2022-10-21 10:15 | PT.IPTN ---
Current Diagnoses Sepsis, unspecified organism (10/13/22) Physical Therapy Treatment Note M2 PT-IP Current Condition Start: 10/17/22 15:10 Freq: NEEDED Status: Active Protocol: Document 10/17/22 16:17 AMB (Rec: 10/17/22 16:33 AMB [id number]) Physical Therapy Current Condition Current Condition Evaluation Date 10/17/22 Treatment Diagnosis pneumonia, weakness Onset Date 10/13/22 M3 PT-IP Subjective Start: 10/17/22 15:10 Freq: NEEDED Status: Active Protocol: Document 10/21/22 09:57 KS (Rec: 10/21/22 10:57 KS [id number]) Subjective Physical Therapy Visit Type Type Treatment Note Visit Start Time 09:57 Visit Stop Time 10:15 Total Visit Minutes 18 Number of TURNSTILE COLLECTOR Visits 1 Physical Therapy Visit Comments Patient Comments Pt in bed, present, agreeable to work w/ PT. Therapy Pain Assessment Location Left Knee Scale Used not quantified Description With Movement Pain Behaviors Facial Grimacing,Guarding Pain Management Techniques Distraction,Re-positioning M4 PT-IP Mobility and Gait Start: 10/17/22 15:10 Freq: NEEDED Status: Active Protocol: Document 10/21/22 09:57 KS (Rec: 10/21/22 10:57 KS [id number]) PT-Bed Mobility Assessment Supine to Sit Supine to Sit Moderate Assistance,2 Person Assistance,Head of Bed Elevated,Bedrails Scooting Scooting to Edge of Bed Maximum Assistance PT-Transfer Assessment Sit to and From Stand Sit to and from Stand Moderate Assistance,1 Person Assistance,Use of Upper Extremities Equipment Transfer Assistive Device Gait Belt,Front Wheeled Walker Transfers Transfer Destination Chair Transfer Technique Stand Step Pivot Transfer Ability Level of Assist Minimal Assistance,Use of Upper Extremities Comments Mobility Comments Pt requires most assistance w/ getting out of bed. Mod A x2 for sup<>sit, Max A for scooting to EOB. Helpful to tilt bed prior to initiating sup<>sit d/t pts height compared to height of bed. Pt requires frequent rest breaks and motivation. Mod A for sit< >stand and Min A for stand step pivot to chair w/ FWW w/ cues for FWW mgmt, safety, and sequencing. Pt sat in chair somewhat prematurely due to fatigue. Min A and stool under feet for scooting back in chair. Reviewed LE exercises, left pt in chair w/ all needs in reach and family in room. Gait Assessment Gait Gait Assistance Required: Minimum Assistance Distance (Feet) 3 Assistive Devices Assistive Device Gait Belt,Front Wheeled Walker Gait Deviations General Gait Pattern Decreased Stride Length, Decreased Feet Clearance, Flexed Trunk Factors Limiting Gait Function Factors Limiting Gait Function Decreased Activity Tolerance, Decreased Strength,Difficulty Following Directions,Pain Comments Gait Comments See mobility section for details. Will try to increase ambulation distance tomorrow if appropriate. PT-Balance Assessment Sitting Balance and Reactions Static Sitting Balance Ability Fair Dynamic Sitting Balance Ability Fair Standing Balance and Reactions Static Standing Balance Ability Fair Dynamic Standing Balance Ability Fair Device Used FWW M5 PT-IP Objective Assessments Start: 10/17/22 15:10 Freq: NEEDED Status: Active Protocol: Document 10/17/22 16:17 AMB (Rec: 10/17/22 16:33 AMB [id number]) Orientation Orientation/Cognition Level of Alertness Alert Strength Upper Extremity Strength Assessment Within Functional Limits Lower Extremity Strength Hip 3 Knee 3 Ankle 3 Comments Strength Comments Generally weak LEs M6 PT-IP Treatment Start: 10/17/22 15:10 Freq: NEEDED Status: Active Protocol: Document 10/21/22 09:57 KS (Rec: 10/21/22 10:57 KS [id number]) Physical Therapy Treatment Exercises Exercises Ankle Pumps,Gluteal Sets,Quad Sets,Heel Slides,Supine Hip Abduction M7 PT-IP Assessment and Plan Start: 10/17/22 15:10 Freq: NEEDED Status: Active Protocol: Document 10/21/22 09:57 KS (Rec: 10/21/22 10:57 KS [id number]) PT Summary Assessment and Plan Potential Rehabilitation Potential Fair Summary Impairments Strength,Bed Mobility, Transfers,Gait,Activity Tolerance Progress Towards Goals Slow Progress due to Medical Issues Assessment Summary Pt remains limited by weakness , low tolerance for activity, confusion, and SOB. Pt desats to 80s during mobility today. She requires the most assistance w/ bed mobility, but is able to transfer w/ Min A using FWW. Frequent cues for safety and sequencing required d/t confusion. Will continue to assess pt progress and work to increase activity as tolerated. Goals Bed Mobility Goal Standby Assistance Transfer Goal Standby Assistance Gait Goal Contact Guard Assistance Gait Distance 200 Days to Meet Goals 7 Frequency of Treatment Frequency Of Treatment Once a Day Treatment Plan Physical Therapy Treatment Plan Bed Mobility Training,Transfer Training,Gait Training, Therapeutic Exercise,Balance Retraining,Neuromuscular Re-ed Other Recommendations and Next Treatment Progress ambulation as able. Focus Continue ther ex for strengthening. Recommendations To Nursing Amount of Assist Needed 2 Person Assist Discharge Recommendations PT Discharge Recommendations Home with 24/7 Assist Available,Home Health Transportation Needs at Discharge Private Vehicle
[2022-10-21] MEDS: INSULIN LISPRO 100 UNIT/ML 3ML VIAL SUBCUT ×3 (12:33→21:05)
[2022-10-21] MEDS: CEFEPIME 2 GM in SODIUM CHLORIDE 0.9% 100 ML IV (12:46)
[2022-10-21] MEDS: ACETAMINOPHEN 325 MG TABLET 650 MG PO (13:32)
[2022-10-21] MEDS: MEROPENEM 2 GM in SODIUM CHLORIDE 0.9% 100 ML IV ×2 (15:19→22:58)
[2022-10-21] MEDS: ALBUTEROL 2.5 MG/3 ML NEB (ADULT) INH (15:49)
[2022-10-21 15:58] LABS: PCO2 ABG 39.3 mmHg (35-45); pH ABG 7.48 (7.35-7.45)
[2022-10-21 15:59] LABS: HCO3 ABG 30 mmol/L (23-27); Oxygen Saturation ABG 94 % (95-100); PO2 ABG 65 mmHg (80-100); TCO2 ABG 31 mmol/L (23-27)
[2022-10-21 16:00] LABS: Fractionated Inspired Oxygen 32
--- NOTE | 2022-10-21 16:38 | P.PN_ITS ---
Subjective Subjective Interval history: Patient is more delirious today, stating the month in Jan and the year is 1996. She knows herself and her , but is confused with other things. She is still weak and take a 2 person assist in bed transfers but 1 person assist when standing. An 18 minute conversation was had with the present about her goals. Hospice was brought up given patient has been now hospitalized every month this year. Patient says she has been ready for this CVID to take me for 30 years. She is going to discuss what the best plan is with her but for now continue all treatment. Sputum cultures returned showing intermed susceptibility to cefepime. Spoke with Yolanda HILL who recommended meropenem 2g q8h. Exam Vital Signs (past 8 hours): - 10/21/22 08:42 10/21/22 09:05 10/21/22 09:09 Temperature Pulse Rate 88 91 H 88 Respiratory Rate 20 Blood Pressure 117/65 Pulse Oximetry 95 Oxygen Delivery Method Nasal Cannula Oxygen Flow Rate 3 10/21/22 11:38 10/21/22 15:54 Temperature 98.2 F Pulse Rate 81 95 H Respiratory Rate 20 20 Blood Pressure 119/57 L Pulse Oximetry 97 98 Oxygen Delivery Method Room Air Oxygen Flow Rate 3 Fraction of Inspired Oxygen 36 SaO2/FiO2 Ratio 269 Oxygen Delivery Method Room Air Oxygen Flow Rate 3 Narrative Exam Narrative: GEN: Alert and oriented x 1, acutely and chronically ill-appearing, intermittently confused and appears fatigued HEENT:NC, Face symmetric CHEST: Respiratory excursions symmetric, coarse breath sounds but improved since admission. CV:?irregularly irregular, no M/R/G ABD: Soft, NT/ND EXTR:? Erythema to the bilateral lower extremities in the pretibial area is improved today, warm, well perfused, no C/C/E, significant wrinkling to the skin of the lower extremities consistent with venous stasis changes SKIN: warm and dry, no rash NEURO: Alert and oriented x 1, moving all extremities Objective Labs 10/21/22 04:36 10/21/22 04:36 Labs: Laboratory Results - last 24 hr 10/21/22 10/21/22 10/21/22 04:36 04:36 04:36 WBC 8.4 RBC 3.81 L Hgb 10.7 L Hct 32.3 L MCV 85.0 MCH 28.1 MCHC 33.1 RDW 19.1 H Plt Count 564 H Neut % (Auto) Not Reportable Lymph % (Auto) Not Reportable [place] % (Auto) Not Reportable Eos % (Auto) Not Reportable Baso % (Auto) Not Reportable Lymph # (Auto) Not Reportable [place] # (Auto) Not Reportable Baso # (Auto) Not Reportable Total Counted 100 Seg Neutrophils % 60.0 Band Neutrophils % 3.0 Lymphocytes % (Manual) 26.0 Monocytes % (Manual) 8.0 Metamyelocytes % 3.0 H Neutrophils # (Manual) 5292 Platelet Estimate Increased on smear RBC Morphology See below Poikilocytosis 1+ H Anisocytosis 1+ H PT 24.2 H D INR 2.1 H ABG pH ABG pCO2 ABG pO2 ABG HCO3 ABG Total CO2 ABG O2 Saturation ABG Base Excess FiO2 Sodium 133 L Potassium 3.7 Chloride 96 L Carbon Dioxide 32 BUN 15 Creatinine 0.73 Estimated GFR > 60 BUN/Creatinine Ratio 20.5 Glucose 114 H Calcium 8.7 Total Bilirubin 0.3 AST 21 ALT 15 Alkaline Phosphatase 86 Total Protein 6.7 Albumin 3.1 L Globulin 3.6 Albumin/Globulin Ratio 0.9 L Procalcitonin 10/21/22 10/21/22 04:36 15:44 WBC RBC Hgb Hct MCV MCH MCHC RDW Plt Count Neut % (Auto) Lymph % (Auto) [place] % (Auto) Eos % (Auto) Baso % (Auto) Lymph # (Auto) [place] # (Auto) Baso # (Auto) Total Counted Seg Neutrophils % Band Neutrophils % Lymphocytes % (Manual) Monocytes % (Manual) Metamyelocytes % Neutrophils # (Manual) Platelet Estimate RBC Morphology Poikilocytosis Anisocytosis PT INR ABG pH 7.48 H ABG pCO2 39.3 ABG pO2 65 L ABG HCO3 30 H ABG Total CO2 31 H ABG O2 Saturation 94 L ABG Base Excess 6.0 H FiO2 32 Sodium Potassium Chloride Carbon Dioxide BUN Creatinine Estimated GFR BUN/Creatinine Ratio Glucose Calcium Total Bilirubin AST ALT Alkaline Phosphatase Total Protein Albumin Globulin Albumin/Globulin Ratio Procalcitonin 0.12 PFSH Medical History Abnormal chest xray (~1979) Anemia Ankle pain Anticoagulated Asthma (~1959) Bronchiectasis (~2006) Cervical spine disease Chronic back pain Colon polyps (~2015) Degenerative joint disease of spine (~2001) Diabetes mellitus, type II (~2009) Eczema Fibromyalgia Foot pain Hoarseness Hyperlipidemia Hypertension Hypothyroidism Migraines (~1964) 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 Osteopenia Pneumonia Pneumonia Recurrent sinusitis (~1970) Restless leg syndrome Shoulder pain (~03/2018) Sleep apnea Wears glasses Surgical History Anesthesia History of carpal tunnel release History of cataract removal with insertion of prosthetic lens (~2014) History of section History of laminectomy (~2002) History of spinal fusion (~2012) History of thumb surgery Family History Father Stroke Mother Hypertension Brother Cerebral aneurysm Prostate cancer Diabetes mellitus Hypertension Stroke Brother Arthritis Hyperlipidemia Hypertension Sister History of kidney cancer Hypertension Grandfather Cancer Grandmother Cancer Other Family history non-contributory Social History marital status: household members: spouse lives independently: Yes occupational status: previously employed Smoking Status: Never smoker alcohol intake: current substance use type: does not use Assessment & Plan Assessment & Plan narrative: 1. Sepsis secondary to pseudomonas right lower lobe pneumonia in the setting of chronic immunodeficiency On admission, she was febrile with leukocytosis and altered mental status.? She was initiated on cefepime, azithro, and vancomycin.?She is chronically on prednisone 5 mg daily, which puts her at lower risk for adrenal insufficiency.? No evidence of adrenal insufficiency at this time. - sputum cultures with pseudomonas, narrowed cefepime only based on prior cultures from May. Prior cultures with intermediate resistance to Levofloxacin. However cannot use quinolones with elevated INR. - send-out sputum culture returned with intermediate sens to cefepime, spoke with ID and changed to meropenem 2g q8h. - spoke with ID who recommended 14 days total of IV meropenem 2g q8h, to finish on 10/27 - arranging home infusions, has midline in place - will see Dr. Marlee HILL in clinic on 10/27 at 10:30am 2. Bilateral pneumonia in a chronically immunosuppressed patient Continue bhavik as noted above. 3. Acute on chronic hypoxic respiratory failure Now improved to 5L via NC from HFNC which is her baseline. 4. CVID Receives every 3 week doses of IVIG.? She is on Hizintra q week which has been held. 5. Acute metabolic encephalopathy Worsened on 10/21. I dc'd morphine to avoid contributing meds. Possibly due to cefepime which is known to cause delirium. Hopefully switching to meropenem will help. 6. Hypomagnesemia, hypokalemia She has had borderline hypomagnesemia with a magnesium level of 1.7 on admission.? 7. History of pulmonary embolism Status post IVC filter placement.? Also on warfarin anticoagulation. 8. Atrial fibrillation with supratherapeutic INR She is now back on warfarin anticoagulation.? INR remains supratherapeutic. Spouse noted that when she restarted warfarin 10 days prior to admission, she was placed on 5mg. She was up to an INR>8 within 3 days. She then was started on 1mg/day. Will hold warfarin until INR 2-3. Currently 4.4 then up to 5.5. -give dose of 5mg po vitamin K on 10/20 -Stopped diltiazem due to potential elevation in INR. Changed to metoprolol XL 25mg daily. -INR now 2.1 after vit K -continue to hold warfarin and when restarting start at 1mg dose 9. Chronic heart failure with preserved ejection fraction Takes Lasix 40 mg twice daily.? BNP was increased at 3730 on admission.? Furosemide changed to 20 mg IV BID d/t encephalopathy. Diuresed 2175/24 hrs. Now on home oral dosing. 10. Diabetes mellitus type 2 On Lantus 30 units daily.? Hemoglobin A1c in August of this year was 6.8%.? Continue sliding scale.? She did have a low BG at 69 during admission, lantus was then decreased to 25 units for now. Improved BS now. No changes necessary. 11. Chronic pain syndrome Continue usual fentanyl 37 mcg/hour as well as oxycodone 15 mg every 6 hours as needed 12. Neuropathy Continue duloxetine and amitriptyline 13. Asthma On Fasenra as an outpatient q8 wks, as well as Wixela, Advair, Singulair, and duonebs. 14. Restless leg syndrome Continue Mirapex 15. Hypothyroidism Continue usual outpatient dose of levothyroxine 16. Hyperlipidemia Continue atorvastatin 17. GERD On Protonix b.i.d. 18. Class 3 obesity BMI is 41.5.? She is at significantly higher risk of morbidity and mortality related to her obesity and would benefit from weight reduction. 19. Acute on chronic hyponatremia, present on admission. Improving. - Na initially 134, now dipped to 128 - started IVF and improved to 133 Code status DNR DNI Prophylaxis On warfarin, INR elevated now on hold Disposition Had ACP discussion on 10/21 about SNF vs home with hospice. Patient is thinking about what her ultimate wishes and goals are and we will continue all treatment until then.
--- NOTE | 2022-10-21 19:17 | PC.NURSE ---
pt is still confused, but her mentation has improved since this morning; she has been up in the chair over half the shift and got to the BSC for a BM; she returned to bed; has been at bedside all day; antibiotics were changed from cefipime to merrem per sensitivity report
[2022-10-21] MEDS: PRAMIPEXOLE 0.25 MG TABLET 0.5 MG PO (21:02)
[2022-10-21] MEDS: NORTRIPTYLINE HCL 25 MG CAPSULE PO (21:03)
[2022-10-21] MEDS: MELATONIN 3 MG TABLET 6 MG PO (21:03)
[2022-10-22] VITALS (35 sets, daily range): BP systolic 106–148; BP diastolic 57–88; PULSE 72–106; RESP 17–24; TEMP 36.3–36.5; O2SAT 88–94
[2022-10-22] MEDS: ALBUTEROL 2.5 MG/3 ML NEB (ADULT) INH ×2 (04:18→15:34)
[2022-10-22 05:19] LABS: INR 1.5 (0.9-1.3); Prothrombin Time 17.5 SECONDS (10.1-12.7)
[2022-10-22 05:24] LABS: Hematocrit 33.3 % (36-46); Hemoglobin 10.9 g/dL (12.0-16.0); Mean Corpuscular HGB Conc 32.7 % (30-36); Mean Corpuscular Hemoglobin 27.8 PG (26-34); Mean Corpuscular Volume 84.9 fL (80-100); Platelet Count 561 X10^3/uL (150-400); Red Blood Cell Count 3.92 X10^6/uL (4.0-5.2); Red Cell Distribution Width 19.3 % (11.6-14.8)
[2022-10-22 05:25] LABS: Alanine Aminotransferase 14 IU/L (<35); Albumin Globulin Ratio 0.8 (1.0-2.8); Alkaline Phosphatase 87 U/L (38-126); Aspartate Aminotransferase 19 IU/L (14-36); Bilirubin Total 0.4 mg/dL (0.2-1.3); Blood Urea Nitrogen 15 mg/dL (7-17); Carbon Dioxide 31 mmol/L (22-32); Chloride 97 mmol/L (98-107); Estimated Glomerular Filt Rate > 60 mL/min (>60); Globulin 3.6 g/dL (1.7-4.1); Glucose 137 mg/dL (80-110); HEMOLYSIS < 15 (0-50); Potassium 3.9 mmol/L (3.4-5.1); Sodium 133 mmol/L (137-145); Total Protein 6.6 g/dL (6.3-8.2)
[2022-10-22 05:29] LABS: Add Manual Diff / Slide Review YES
[2022-10-22 05:39] LABS: Neutrophils Absolute Manual 5040 /uL (3000-5900); Total Cells Counted 100
[2022-10-22 05:40] LABS: Anisocytosis 1+; Platelet Estimate Increased on smear
[2022-10-22] MEDS: MEROPENEM 2 GM in SODIUM CHLORIDE 0.9% 100 ML IV ×3 (06:28→22:14)
[2022-10-22] MEDS: LEVOTHYROXINE 75 MCG TABLET PO (06:29)
[2022-10-22] MEDS: cloNIDine 0.1 MG TABLET 0.05 MG PO ×2 (07:39→20:59)
[2022-10-22] MEDS: DULOXETINE 30 MG CAPSULE PO (07:39)
[2022-10-22] MEDS: predniSONE 5 MG TABLET PO (07:43)
[2022-10-22] MEDS: ACETAMINOPHEN 325 MG TABLET 650 MG PO (07:43)
[2022-10-22] MEDS: ALBUTEROL/IPRATROPIUM 3 ML AMPUL INH ×2 (07:43→19:42)
[2022-10-22] MEDS: PANTOPRAZOLE 40 MG VIAL IV ×2 (07:44→21:01)
[2022-10-22] MEDS: SODIUM CHLORIDE 0.9% FLUSH 10 ML IV ×2 (07:44→21:02)
--- NOTE | 2022-10-22 07:48 | PM.PN.1 ---
Subjective Subjective Date Patient Seen: 10/22/22 Time Patient Seen: 10:46 Interval history: She is seen today to follow-up her multidrug resistant Pseudomonas pneumonia and confusion. Today her mental status has cleared and she is able to participate in the conversation and add details to her 's recounting of recent events. Clearly the meropenem has been part of the improvement. The blood pressure is 148/80. The white blood count is 7.0. The hemoglobin is 10.9. The INR is 1.5. Sodium is 133 with a glucose of 137 and an albumin of 3.0. She talks about her myoclonic jerking spasms that she was experiencing. Her points out that these diminished after pregabalin was stopped and that she is no longer on that medicine. She continues on a fentanyl patch at 37 mg. Tylenol has not been effective for her knee pain so the oxycodone will be resumed now that her mental status has cleared. Exam Vital Signs (past 8 hours): - 10/22/22 04:34 10/22/22 07:39 Temperature 97.4 F L Pulse Rate 90 72 Respiratory Rate 17 Blood Pressure 147/70 H 148/80 H Pulse Oximetry 92 Oxygen Flow Rate 3 Fraction of Inspired Oxygen 36 SaO2/FiO2 Ratio 269 Oxygen Delivery Method Nasal Cannula Oxygen Flow Rate 3 Narrative Exam Narrative: Alert and oriented x3. Heart is regular rate and rhythm without murmur Lungs are clear to auscultation bilaterally Extremities have no ankle edema Abdomen is soft, bowel sounds positive, nontender, no organomegaly. She is quite pleasant and interactive today. No myoclonus is observed. Objective Labs 10/22/22 04:20 10/22/22 04:20 Labs: Laboratory Results - last 24 hr 10/21/22 10/22/22 10/22/22 15:44 04:20 04:20 WBC 7.0 RBC 3.92 L Hgb 10.9 L Hct 33.3 L MCV 84.9 MCH 27.8 MCHC 32.7 RDW 19.3 H Plt Count 561 H Neut % (Auto) Not Reportable Lymph % (Auto) Not Reportable Whitfield % (Auto) Not Reportable Eos % (Auto) Not Reportable Baso % (Auto) Not Reportable Lymph # (Auto) Not Reportable Whitfield # (Auto) Not Reportable Baso # (Auto) Not Reportable Total Counted 100 Seg Neutrophils % 69.0 Band Neutrophils % 3.0 Lymphocytes % (Manual) 20.0 L Monocytes % (Manual) 4.0 Eosinophils % (Manual) 1.0 L Metamyelocytes % 3.0 H Neutrophils # (Manual) 5040 Platelet Estimate Increased on smear RBC Morphology See below Anisocytosis 1+ H PT 17.5 H D INR 1.5 H ABG pH 7.48 H ABG pCO2 39.3 ABG pO2 65 L ABG HCO3 30 H ABG Total CO2 31 H ABG O2 Saturation 94 L ABG Base Excess 6.0 H FiO2 32 Sodium Potassium Chloride Carbon Dioxide BUN Creatinine Estimated GFR BUN/Creatinine Ratio Glucose Calcium Total Bilirubin AST ALT Alkaline Phosphatase Total Protein Albumin Globulin Albumin/Globulin Ratio 10/22/22 04:20 WBC RBC Hgb Hct MCV MCH MCHC RDW Plt Count Neut % (Auto) Lymph % (Auto) Whitfield % (Auto) Eos % (Auto) Baso % (Auto) Lymph # (Auto) Whitfield # (Auto) Baso # (Auto) Total Counted Seg Neutrophils % Band Neutrophils % Lymphocytes % (Manual) Monocytes % (Manual) Eosinophils % (Manual) Metamyelocytes % Neutrophils # (Manual) Platelet Estimate RBC Morphology Anisocytosis PT INR ABG pH ABG pCO2 ABG pO2 ABG HCO3 ABG Total CO2 ABG O2 Saturation ABG Base Excess FiO2 Sodium 133 L Potassium 3.9 Chloride 97 L Carbon Dioxide 31 BUN 15 Creatinine 0.75 Estimated GFR > 60 BUN/Creatinine Ratio 20.0 Glucose 137 H Calcium 9.0 Total Bilirubin 0.4 AST 19 ALT 14 Alkaline Phosphatase 87 Total Protein 6.6 Albumin 3.0 L Globulin 3.6 Albumin/Globulin Ratio 0.8 L PFSH Medical History Abnormal chest xray (~1979) Anemia Ankle pain Anticoagulated Asthma (~1959) Bronchiectasis (~2006) Cervical spine disease Chronic back pain Colon polyps (~2015) Degenerative joint disease of spine (~2001) Diabetes mellitus, type II (~2009) Eczema Fibromyalgia Foot pain Hoarseness Hyperlipidemia Hypertension Hypothyroidism Migraines (~1964) 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 Osteopenia Pneumonia Pneumonia Recurrent sinusitis (~1970) Restless leg syndrome Shoulder pain (~03/2018) Sleep apnea Wears glasses Surgical History Anesthesia History of carpal tunnel release History of cataract removal with insertion of prosthetic lens (~2014) History of section History of laminectomy (~2002) History of spinal fusion (~2012) History of thumb surgery Family History Father Stroke Mother Hypertension Brother Cerebral aneurysm Prostate cancer Diabetes mellitus Hypertension Stroke Brother Arthritis Hyperlipidemia Hypertension Sister History of kidney cancer Hypertension Grandfather Cancer Grandmother Cancer Other Family history non-contributory Social History marital status: household members: spouse lives independently: Yes occupational status: previously employed Smoking Status: Never smoker alcohol intake: current substance use type: does not use Assessment & Plan Assessment & Plan narrative: 1. Sepsis secondary to pseudomonas right lower lobe pneumonia in the setting of chronic immunodeficiency On admission, she was febrile with leukocytosis and altered mental status.? She was initiated on cefepime, azithro, and vancomycin.?She is chronically on prednisone 5 mg daily, which puts her at lower risk for adrenal insufficiency.? No evidence of adrenal insufficiency at this time. - sputum cultures with pseudomonas, narrowed to cefepime only based on prior cultures from May. Prior cultures with intermediate resistance to Levofloxacin. However cannot use quinolones with elevated INR. - send-out sputum culture returned with intermediate sens to cefepime, spoke with ID and changed to meropenem 2g q8h on 10/21/22. - spoke with ID who recommended 14 days total of IV meropenem 2g q8h, to finish on 10/27 - arranging home infusions, has midline in place - will see Dr. Marlee HILL in clinic on 10/27 at 10:30am ? 2. Bilateral pneumonia in a chronically immunosuppressed patient Continue bhavik as noted above. 3. Acute on chronic hypoxic respiratory failure Now improved to 5L via NC from HFNC which is her baseline. 4. CVID Receives every 3 week doses of IVIG.? She is on Hizintra q week which has been held. 5. Acute metabolic encephalopathy Worsened on 10/21. Stopped morphine to avoid contributing meds. Possibly due to cefepime which is known to cause delirium. Cleared on 10/22/22 after those changes. 6. Hypomagnesemia, hypokalemia She has had borderline hypomagnesemia with a magnesium level of 1.7 on admission.? 7. History of pulmonary embolism Status post IVC filter placement.? Also on warfarin anticoagulation. 8. Atrial fibrillation with supratherapeutic INR She is now back on warfarin anticoagulation.? INR remains supratherapeutic.? Spouse noted that when she restarted warfarin 10 days prior to admission, she was placed on 5mg.? She was up to an INR>8 within 3 days.? She then was started on 1mg/day. Will hold warfarin until INR 2-3. Currently 4.4 then up to 5.5. -give dose of 5mg po vitamin K on 10/20 -Stopped diltiazem due to potential elevation in INR. Changed to metoprolol XL 25mg daily. -INR 2.1 after vit K -INR 1.5 on 10/22/22. Restarted Coumadin. 9. Chronic heart failure with preserved ejection fraction Takes Lasix 40 mg twice daily.? BNP was increased at 3730 on admission.? Furosemide changed to 20 mg IV BID d/t encephalopathy.? Diuresed 2175/24 hrs. Now on home oral dosing. 10. Diabetes mellitus type 2 On Lantus 30 units daily.? Hemoglobin A1c in August of this year was 6.8%.? Continue sliding scale.? She did have a low BG at 69 during admission, lantus was then decreased to 25 units for now. Improved BS now. No changes necessary. 11. Chronic pain syndrome Continue usual fentanyl 37 mcg/hour, resume Percocet on 10/22/22. 12. Neuropathy Continue duloxetine and amitriptyline 13. Asthma On Fasenra as an outpatient q8 wks, as well as Wixela, Advair, Singulair, and duonebs. 14. Restless leg syndrome Continue Mirapex 15. Hypothyroidism Continue usual outpatient dose of levothyroxine 16. Hyperlipidemia Continue atorvastatin 17. GERD On Protonix b.i.d. 18. Class 3 obesity BMI is 41.5.? She is at significantly higher risk of morbidity and mortality related to her obesity and would benefit from weight reduction. 19. Acute on chronic hyponatremia, present on admission. Improving. - Na initially 134, dipped to 128 - started IVF and improved to 133 Code status DNR DNI Prophylaxis On warfarin Disposition Had ACP discussion on 10/21 about SNF vs home with hospice. Patient is thinking about what her ultimate wishes and goals are and we will continue all treatment until then.
[2022-10-22] MEDS: METOPROLOL ER 25 MG TABLET PO (07:51)
[2022-10-22] MEDS: INSULIN LISPRO 100 UNIT/ML 3ML VIAL SUBCUT ×3 (07:53→17:05)
[2022-10-22] MEDS: INSULIN GLARGINE 100 UNIT/ML 3ML PEN 30 UNIT SUBCUT (07:54)
[2022-10-22] MEDS: OXYCODONE/ACETAMINOPHEN 5/325 TABLET 1 TAB PO ×3 (09:40→21:03)
[2022-10-22] MEDS: OXYCODONE IR 5 MG TABLET PO ×3 (09:41→21:01)
--- NOTE | 2022-10-22 09:49 | PC.NURSE ---
pt has some mild residual confusion, but mentation is markedly improved from yesterday
--- NOTE | 2022-10-22 11:28 | PT.IPTN ---
Current Diagnoses Sepsis, unspecified organism (10/13/22) Physical Therapy Treatment Note M2 PT-IP Current Condition Start: 10/17/22 15:10 Freq: NEEDED Status: Active Protocol: Document 10/17/22 16:17 AMB (Rec: 10/17/22 16:33 AMB [id number]) Physical Therapy Current Condition Current Condition Evaluation Date 10/17/22 Treatment Diagnosis pneumonia, weakness Onset Date 10/13/22 M3 PT-IP Subjective Start: 10/17/22 15:10 Freq: NEEDED Status: Active Protocol: Document 10/22/22 11:15 KS (Rec: 10/22/22 12:41 KS [id number]) Subjective Physical Therapy Visit Type Type Treatment Note Visit Start Time 11:15 Visit Stop Time 11:28 Total Visit Minutes 13 Number of GOLD FRAME ASSEMBLER Visits 2 Physical Therapy Visit Comments Patient Comments Pt in bed, present, agreeable to work w/ PT. M4 PT-IP Mobility and Gait Start: 10/17/22 15:10 Freq: NEEDED Status: Active Protocol: Document 10/22/22 11:15 KS (Rec: 10/22/22 12:41 KS [id number]) PT-Bed Mobility Assessment Supine to Sit Supine to Sit Minimal Assistance,1 Person Assistance Scooting Scooting to Edge of Bed Moderate Assistance PT-Transfer Assessment Sit to and From Stand Sit to and from Stand Minimal Assistance,1 Person Assistance,Use of Upper Extremities Equipment Transfer Assistive Device Gait Belt,Front Wheeled Walker Transfers Transfer Destination Bedside Commode Transfer Technique ambulated Transfer Ability Level of Assist Minimal Assistance,Use of Upper Extremities Comments Mobility Comments Pt in bed upon arrival, RN present for assistance. Min A for sup<>Sit and Mod A for scooting EOB today. Pt requesting to use BSC. Positioned BSc further from pt to increase gait distance. Perry for sit<>stand w/ FWW. Pt ambulated ~10 ft to BSC w/ FWW and CGA. Reported fatigue following. Left to have BM w/ all needs inreach. Gait Assessment Gait Gait Assistance Required: Minimum Assistance Distance (Feet) 10 Assistive Devices Assistive Device Gait Belt,Front Wheeled Walker Gait Deviations General Gait Pattern Decreased Stride Length, Decreased Feet Clearance, Flexed Trunk Factors Limiting Gait Function Factors Limiting Gait Function Decreased Activity Tolerance, Decreased Strength,Difficulty Following Directions,Pain Comments Gait Comments Pt able to slightly increase ambulation distance today w/ FWW CGA. PT-Balance Assessment Sitting Balance and Reactions Static Sitting Balance Ability Fair Dynamic Sitting Balance Ability Fair Standing Balance and Reactions Static Standing Balance Ability Fair Dynamic Standing Balance Ability Fair Device Used FWW M5 PT-IP Objective Assessments Start: 10/17/22 15:10 Freq: NEEDED Status: Active Protocol: Document 10/17/22 16:17 AMB (Rec: 10/17/22 16:33 AMB [id number]) Orientation Orientation/Cognition Level of Alertness Alert Strength Upper Extremity Strength Assessment Within Functional Limits Lower Extremity Strength Hip 3 Knee 3 Ankle 3 Comments Strength Comments Generally weak LEs M6 PT-IP Treatment Start: 10/17/22 15:10 Freq: NEEDED Status: Active Protocol: Document 10/22/22 12:41 KS (Rec: 10/22/22 12:41 KS [id number]) Physical Therapy Treatment Education Education Provided Safety M7 PT-IP Assessment and Plan Start: 10/17/22 15:10 Freq: NEEDED Status: Active Protocol: Document 10/22/22 11:15 KS (Rec: 10/22/22 12:41 KS [id number]) PT Summary Assessment and Plan Potential Rehabilitation Potential Fair Summary Impairments Strength,Bed Mobility, Transfers,Gait,Activity Tolerance Progress Towards Goals Slow Progress due to Medical Issues Assessment Summary Pt showing improvements w/ strength and mobility today bit still remains limited by low tolerance for activity. Requried less assistance for bed mobility, transfers, and was able to increase ambulation distance today. Will continue to assess pt progress and work to increase activity as tolerated. Goals Bed Mobility Goal Standby Assistance Transfer Goal Standby Assistance Gait Goal Contact Guard Assistance Gait Distance 200 Days to Meet Goals 7 Frequency of Treatment Frequency Of Treatment Once a Day Treatment Plan Physical Therapy Treatment Plan Bed Mobility Training,Transfer Training,Gait Training, Therapeutic Exercise,Balance Retraining,Neuromuscular Re-ed Other Recommendations and Next Treatment Progress ambulation as able. Focus Continue ther ex for strengthening. Recommendations To Nursing Amount of Assist Needed 1 Person Assist Discharge Recommendations PT Discharge Recommendations Home with 06/11 Assist Available,Home Health Transportation Needs at Discharge Private Vehicle
--- NOTE | 2022-10-22 12:43 | CM.DPNOTE ---
Discharge Planning Note: Met with patient and spouse; they reports she is feeling much better since off of the cefepime yesterday and starting the meropenem. Patient is A/O, resting in bed with oxygen via n/c on. Patient has multiple chronic conditions and is immunocompromised. She sees ID doctor, Dr Zhang weekly. Her spouse Harjeet is a retired PA and is her primary caregiver and manages all of her medical needs-- appointments, meds, etc. See PT note, patient ambulated in [place] today with walker with SBA. Patient has used [facility] home infusion in past and they are on board to service patient once discharged. She has [facility] and will need a resumption of care with additional disciplines added: RN, PT/OT, bath aide. A new script will be needed for new antibiotic meropenem. PLAN: See above paragraph. Will need script faxed to [facility]. Communicate/coordinate with them regarding discharge time/date, time of last antibiotic dose, etc. Resumption of care order fax to [facility] with additional disciplines added. When medically cleared, discharge home to care of spouse who will transport. Tala Segal RN/DCP
[2022-10-22] MEDS: SENNOSIDES 8.6 MG TABLET PO (15:50)
[2022-10-22] MEDS: WARFARIN 1 MG TABLET 0.5 MG PO (17:05)
--- NOTE | 2022-10-22 18:11 | PC.NURSE ---
pt is continuing to improve and her memory is almost back to baseline; she has been up in the chair for several hours and was able to ambulate several steps in the room w/ fww; family at bedside
[2022-10-22] MEDS: NORTRIPTYLINE HCL 25 MG CAPSULE PO (21:00)
[2022-10-22] MEDS: PRAMIPEXOLE 0.25 MG TABLET 0.5 MG PO (21:00)
[2022-10-23] VITALS (54 sets, daily range): BP systolic 104–133; BP diastolic 54–68; PULSE 65–98; RESP 18–20; TEMP 36.6–37.1; O2SAT 89–99
[2022-10-23] MEDS: ALBUTEROL 2.5 MG/3 ML NEB (ADULT) INH ×2 (02:00→12:05)
[2022-10-23 05:04] LABS: Hematocrit 30.5 % (36-46); Hemoglobin 10.3 g/dL (12.0-16.0); Mean Corpuscular HGB Conc 33.7 % (30-36); Mean Corpuscular Hemoglobin 28.1 PG (26-34); Mean Corpuscular Volume 83.6 fL (80-100); Platelet Count 564 X10^3/uL (150-400); Red Blood Cell Count 3.65 X10^6/uL (4.0-5.2); White Blood Cell Count 7.2 X10^3/uL (4.5-11.0)
[2022-10-23 05:07] LABS: Add Manual Diff / Slide Review YES
[2022-10-23 05:12] LABS: INR 1.5 (0.9-1.3); Prothrombin Time 17.2 SECONDS (10.1-12.7)
[2022-10-23 05:20] LABS: Alanine Aminotransferase 13 IU/L (<35); Albumin 2.8 g/dL (3.5-5.0); Albumin Globulin Ratio 0.8 (1.0-2.8); Alkaline Phosphatase 83 U/L (38-126); Aspartate Aminotransferase 18 IU/L (14-36); BUN Creatinine Ratio 20.5 (6-22); Bilirubin Total 0.2 mg/dL (0.2-1.3); Blood Urea Nitrogen 15 mg/dL (7-17); Calcium 8.7 mg/dL (8.4-10.2); Carbon Dioxide 30 mmol/L (22-32); Chloride 98 mmol/L (98-107); Estimated Glomerular Filt Rate > 60 mL/min (>60); Globulin 3.5 g/dL (1.7-4.1); Glucose 117 mg/dL (80-110); HEMOLYSIS < 15 (0-50); Potassium 3.6 mmol/L (3.4-5.1); Sodium 133 mmol/L (137-145); Total Protein 6.3 g/dL (6.3-8.2)
[2022-10-23 05:22] LABS: Anisocytosis 1+; Neutrophils Absolute Manual 5760 /uL (3000-5900); Total Cells Counted 100
[2022-10-23 05:23] LABS: Platelet Estimate Increased on smear; Poikilocytosis 1+
[2022-10-23] MEDS: MEROPENEM 2 GM in SODIUM CHLORIDE 0.9% 100 ML IV ×3 (06:18→23:10)
[2022-10-23] MEDS: LEVOTHYROXINE 75 MCG TABLET PO (06:18)
[2022-10-23] MEDS: OXYCODONE IR 5 MG TABLET PO ×3 (06:21→21:18)
[2022-10-23] MEDS: OXYCODONE/ACETAMINOPHEN 5/325 TABLET 1 TAB PO ×3 (06:21→21:19)
[2022-10-23] MEDS: ALBUTEROL/IPRATROPIUM 3 ML AMPUL INH ×2 (07:05→18:05)
[2022-10-23] MEDS: INSULIN GLARGINE 100 UNIT/ML 3ML PEN 30 UNIT SUBCUT (08:44)
[2022-10-23] MEDS: INSULIN LISPRO 100 UNIT/ML 3ML VIAL SUBCUT ×4 (08:44→21:12)
[2022-10-23] MEDS: fentaNYL 12 MCG/PATCH TOP (08:59)
[2022-10-23] MEDS: PANTOPRAZOLE 40 MG VIAL IV ×2 (08:59→21:13)
[2022-10-23] MEDS: cloNIDine 0.1 MG TABLET 0.05 MG PO ×2 (08:59→21:09)
[2022-10-23] MEDS: fentaNYL 25 MCG/PATCH TOP (08:59)
[2022-10-23] MEDS: METOPROLOL ER 25 MG TABLET PO (09:00)
[2022-10-23] MEDS: predniSONE 5 MG TABLET PO (09:00)
[2022-10-23] MEDS: DULOXETINE 30 MG CAPSULE PO (09:00)
[2022-10-23] MEDS: SODIUM CHLORIDE 0.9% FLUSH 10 ML IV ×2 (09:00→21:13)
--- NOTE | 2022-10-23 11:21 | PT.IPTN ---
Current Diagnoses Sepsis, unspecified organism (10/13/22) Physical Therapy Treatment Note M2 PT-IP Current Condition Start: 10/17/22 15:10 Freq: NEEDED Status: Active Protocol: Document 10/17/22 16:17 AMB (Rec: 10/17/22 16:33 AMB [id number]) Physical Therapy Current Condition Current Condition Evaluation Date 10/17/22 Treatment Diagnosis pneumonia, weakness Onset Date 10/13/22 M3 PT-IP Subjective Start: 10/17/22 15:10 Freq: NEEDED Status: Active Protocol: Document 10/23/22 12:37 TS (Rec: 10/23/22 12:50 TS [id number]) Subjective Physical Therapy Visit Type Type Treatment Note Visit Start Time 11:21 Visit Stop Time 11:50 Total Visit Minutes 29 Number of CLAY DRY PRESS HELPER Visits 3 Physical Therapy Visit Comments Patient Comments Pt in bed, present, agreeable to work w/ PT. M4 PT-IP Mobility and Gait Start: 10/17/22 15:10 Freq: NEEDED Status: Active Protocol: Document 10/23/22 12:37 TS (Rec: 10/23/22 12:50 TS [id number]) PT-Bed Mobility Assessment Supine to Sit Supine to Sit Minimal Assistance,1 Person Assistance Scooting Scooting to Edge of Bed Minimal Assistance PT-Transfer Assessment Sit to and From Stand Sit to and from Stand Minimal Assistance,1 Person Assistance,Use of Upper Extremities Equipment Transfer Assistive Device Gait Belt,Front Wheeled Walker Comments Mobility Comments Pt found resting in bed agreeable to PT. Supine to sit Perry with handheld assist for uprighting trunk. She was Perry for scooting to EOB, pt with some SOB on 5L o2, Spo2 91%, stool was used underneath feet for feet flat on floor. Sit to stand Perry, pt uses momentum to stand with BUE support on FWW. She ambulated to bathroom and back to chair step to gait ~20' Perry for balance. Sit to stand from toilet Perry with cues provided for use of grab bars. She was left in chair with call light nearby, spouse in room, nursing notified. Gait Assessment Gait Gait Assistance Required: Minimum Assistance Distance (Feet) 20 Assistive Devices Assistive Device Gait Belt,Front Wheeled Walker Gait Deviations General Gait Pattern Decreased Stride Length, Decreased Feet Clearance, Flexed Trunk Factors Limiting Gait Function Factors Limiting Gait Function Decreased Activity Tolerance, Decreased Strength,Difficulty Following Directions,Pain Comments Gait Comments See mobility comments. PT-Balance Assessment Sitting Balance and Reactions Static Sitting Balance Ability Fair Dynamic Sitting Balance Ability Fair Standing Balance and Reactions Static Standing Balance Ability Fair Dynamic Standing Balance Ability Fair Device Used FWW M5 PT-IP Objective Assessments Start: 10/17/22 15:10 Freq: NEEDED Status: Active Protocol: Document 10/17/22 16:17 AMB (Rec: 10/17/22 16:33 AMB [id number]) Orientation Orientation/Cognition Level of Alertness Alert Strength Upper Extremity Strength Assessment Within Functional Limits Lower Extremity Strength Hip 3 Knee 3 Ankle 3 Comments Strength Comments Generally weak LEs M6 PT-IP Treatment Start: 10/17/22 15:10 Freq: NEEDED Status: Active Protocol: Document 10/23/22 12:37 TS (Rec: 10/23/22 12:50 TS [id number]) Physical Therapy Treatment Education Education Provided Safety M7 PT-IP Assessment and Plan Start: 10/17/22 15:10 Freq: NEEDED Status: Active Protocol: Document 10/23/22 12:37 TS (Rec: 10/23/22 12:50 TS [id number]) PT Summary Assessment and Plan Potential Rehabilitation Potential Fair Summary Impairments Strength,Bed Mobility, Transfers,Gait,Activity Tolerance Progress Towards Goals Slow Progress due to Medical Issues Assessment Summary Pt continues to require Perry for bed mobility, sit to stands and gait. She has some SOB on 5L when scooting to EOB and with gait. She progressed her gait to ~20' in room with FWW and assistance managing lines. Overall she is improving with her mobility but remains to have low activity tolerance. PT is recommending home with 24/7 assist and HHPT. Goals Bed Mobility Goal Standby Assistance Transfer Goal Standby Assistance Gait Goal Contact Guard Assistance Gait Distance 200 Days to Meet Goals 7 Frequency of Treatment Frequency Of Treatment Once a Day Treatment Plan Physical Therapy Treatment Plan Bed Mobility Training,Transfer Training,Gait Training, Therapeutic Exercise,Balance Retraining,Neuromuscular Re-ed Other Recommendations and Next Treatment Progress ambulation as able. Focus Continue ther ex for strengthening. Recommendations To Nursing Amount of Assist Needed 1 Person Assist Discharge Recommendations PT Discharge Recommendations Home with 24/7 Assist Available,Home Health Transportation Needs at Discharge Private Vehicle
--- NOTE | 2022-10-23 11:54 | CM.DPC ---
Addendum entered by MACKENZIE Love 10/23/22 15:47: ADD: Per Carroll at [facility], they have the documentation they need for Meropenum switch and unfortunately the Cefepime that was delivered to spouse will need to be thrown out and they will wait to mix the new IV-Abx until the morning to confirm pt will be discharged tomorrow 10/24. SERGO faxed updated MD prog note to [facility] with update on likely discharge home tomorrow 10/24 with Resume OT and add RN/PT/WOOLEN TESTER. BF Original Note: DCP Cont: SERGO met bedside with pt, spouse, and MD and pt has been improving after switch from Cefepime to Meropenum but still not yet back to her baseline mentation and discussion on plan of likely discharge home tomorrow with ongoing Meropenum and has scheduled outpt appointment with ID MD Dr. Whalen on 10/27/22 to follow for home infusion needs. SERGO contacted Carroll at [facility] and updated on the change to Meropenum and does not appear that [facility] was updated on the change in IV-Abx. Carroll will follow up with his team and SERGO faxed updated MD prog note from yesterday showing the Meropenum 2g Q8 for them to workup as Cefepime dosing had been delivered to spouse prior to the weekend and teaching done and now will need switch in IV-Abx. Plan: SW to follow closely for [facility] review for change in IV-Abx to confirm plan secured for likely d/c home Tues with [facility] and [facility]. MACKENZIE Love
--- NOTE | 2022-10-23 12:31 | P.PN_ITS ---
Subjective Subjective Interval history: 72 F admitted for now 10 days with pseudomonas pneumonia. She became ence phalopathic again over the weekend, cultures finally resulted with intermediate sensitivity to cefepime. Changed to Meropenem two days ago with slow improvement. Still remains a bit weak and short of breath today, though she is back on her usual amount of home oxygen. No chest pain, nausea, vomiting, or diarrhea. Exam Vital Signs (past 8 hours): - 10/23/22 07:06 10/23/22 05:00 10/23/22 05:30 Temperature Pulse Rate 80 81 Respiratory Rate Blood Pressure Pulse Oximetry 96 95 95 Oxygen Delivery Method Nasal Cannula Oxygen Flow Rate 4 Fraction of Inspired Oxygen 10/23/22 06:00 10/23/22 06:30 10/23/22 07:00 Temperature Pulse Rate 77 92 H 85 Respiratory Rate Blood Pressure Pulse Oximetry 94 92 96 Oxygen Delivery Method Oxygen Flow Rate Fraction of Inspired Oxygen 10/23/22 07:30 10/23/22 08:00 10/23/22 08:45 Temperature 97.8 F Pulse Rate 82 77 Respiratory Rate Blood Pressure 125/56 L Pulse Oximetry 97 96 Oxygen Delivery Method Oxygen Flow Rate Fraction of Inspired Oxygen 10/23/22 12:06 Temperature Pulse Rate 76 Respiratory Rate 20 Blood Pressure Pulse Oximetry 93 Oxygen Delivery Method Nasal Cannula Oxygen Flow Rate 4 Fraction of Inspired Oxygen 36 Fraction of Inspired Oxygen 36 SaO2/FiO2 Ratio 258 Oxygen Delivery Method Nasal Cannula Oxygen Flow Rate 4 Narrative Exam Narrative: Alert and oriented x3. Heart is regular rate and rhythm without murmur Lungs are clear to auscultation bilaterally Extremities have no ankle edema Abdomen is soft, bowel sounds positive, nontender, no organomegaly. She is quite pleasant and interactive today. No myoclonus is observed. Objective Labs 10/23/22 04:45 10/23/22 04:45 Labs: Laboratory Results - last 24 hr 10/23/22 10/23/22 10/23/22 04:45 04:45 04:45 WBC 7.2 RBC 3.65 L Hgb 10.3 L Hct 30.5 L MCV 83.6 MCH 28.1 MCHC 33.7 RDW 19.0 H Plt Count 564 H Neut % (Auto) Not Reportable Lymph % (Auto) Not Reportable Jones % (Auto) Not Reportable Eos % (Auto) Not Reportable Baso % (Auto) Not Reportable Lymph # (Auto) Not Reportable Jones # (Auto) Not Reportable Baso # (Auto) Not Reportable Total Counted 100 Seg Neutrophils % 73.0 H Band Neutrophils % 7.0 Lymphocytes % (Manual) 16.0 L Monocytes % (Manual) 3.0 Metamyelocytes % 1.0 H Neutrophils # (Manual) 5760 Platelet Estimate Increased on smear RBC Morphology See below Poikilocytosis 1+ H Anisocytosis 1+ H PT 17.2 H INR 1.5 H Sodium 133 L Potassium 3.6 Chloride 98 Carbon Dioxide 30 BUN 15 Creatinine 0.73 Estimated GFR > 60 BUN/Creatinine Ratio 20.5 Glucose 117 H Calcium 8.7 Total Bilirubin 0.2 AST 18 ALT 13 Alkaline Phosphatase 83 Total Protein 6.3 Albumin 2.8 L Globulin 3.5 Albumin/Globulin Ratio 0.8 L PFSH Medical History Abnormal chest xray (~1979) Anemia Ankle pain Anticoagulated Asthma (~1959) Bronchiectasis (~2006) Cervical spine disease Chronic back pain Colon polyps (~2015) Degenerative joint disease of spine (~2001) Diabetes mellitus, type II (~2009) Eczema Fibromyalgia Foot pain Hoarseness Hyperlipidemia Hypertension Hypothyroidism Migraines (~1964) 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 Osteopenia Pneumonia Pneumonia Recurrent sinusitis (~1970) Restless leg syndrome Shoulder pain (~03/2018) Sleep apnea Wears glasses Surgical History Anesthesia History of carpal tunnel release History of cataract removal with insertion of prosthetic lens (~2014) History of section History of laminectomy (~2002) History of spinal fusion (~2012) History of thumb surgery Family History Father Stroke Mother Hypertension Brother Cerebral aneurysm Prostate cancer Diabetes mellitus Hypertension Stroke Brother Arthritis Hyperlipidemia Hypertension Sister History of kidney cancer Hypertension Grandfather Cancer Grandmother Cancer Other Family history non-contributory Social History marital status: household members: spouse lives independently: Yes occupational status: previously employed Smoking Status: Never smoker alcohol intake: current substance use type: does not use Assessment & Plan Assessment & Plan narrative: 1. Sepsis secondary to pseudomonas right lower lobe pneumonia in the setting of chronic immunodeficiency On admission, she was febrile with leukocytosis and altered mental status.? She was initiated on cefepime, azithro, and vancomycin.?She is chronically on prednisone 5 mg daily, which puts her at lower risk for adrenal insufficiency.? No evidence of adrenal insufficiency at this time. - sputum cultures with pseudomonas, narrowed to cefepime only based on prior cultures from May. Prior cultures with intermediate resistance to Levofloxacin. However cannot use quinolones with elevated INR. - send-out sputum culture returned with intermediate sens to cefepime, spoke with ID and changed to meropenem 2g q8h on 10/21/22. - spoke with ID who recommended 14 days total of IV meropenem 2g q8h, to finish on 10/27 - arranging home infusions, has midline in place - will see Dr. Marlee HILL in clinic on 10/27 at 10:30am ? 2. Bilateral pneumonia in a chronically immunosuppressed patient Continue bhavik as noted above. 3. Acute on chronic hypoxic respiratory failure Now improved to 5L via NC from [facility] which is her baseline. 4. CVID Receives every 3 week doses of IVIG.? She is on Hizintra q week which has been held. 5. Acute metabolic encephalopathy Worsened on 10/21. Stopped morphine to avoid contributing meds. Possibly due to cefepime which is known to cause delirium. Cleared on 10/22/22 after those changes. 6. Hypomagnesemia, hypokalemia She has had borderline hypomagnesemia with a magnesium level of 1.7 on admission.? 7. History of pulmonary embolism Status post IVC filter placement.? Also on warfarin anticoagulation. 8. Atrial fibrillation with supratherapeutic INR She is now back on warfarin anticoagulation.? INR remains supratherapeutic.? Spouse noted that when she restarted warfarin 10 days prior to admission, she was placed on 5mg.? She was up to an INR>8 within 3 days.? She then was started on 1mg/day. Will hold warfarin until INR 2-3. Currently 4.4 then up to 5.5. -give dose of 5mg po vitamin K on 10/20 -Stopped diltiazem due to potential elevation in INR. Changed to metoprolol XL 25mg daily. -INR 2.1 after vit K -INR 1.5 on 10/22/22. Restarted Coumadin. 9. Chronic heart failure with preserved ejection fraction Takes Lasix 40 mg twice daily.? BNP was increased at 3730 on admission.? Furosemide changed to 20 mg IV BID d/t encephalopathy.? Diuresed 2175/24 hrs. Now on home oral dosing. 10. Diabetes mellitus type 2 On Lantus 30 units daily.? Hemoglobin A1c in August of this year was 6.8%.? Continue sliding scale.? She did have a low BG at 69 during admission, lantus was then decreased to 25 units for now. Improved BS now. No changes necessary. 11. Chronic pain syndrome Continue usual fentanyl 37 mcg/hour, resume Percocet on 10/22/22. 12. Neuropathy Continue duloxetine and amitriptyline 13. Asthma On Fasenra as an outpatient q8 wks, as well as Wixela, Advair, Singulair, and duonebs. 14. Restless leg syndrome Continue Mirapex 15. Hypothyroidism Continue usual outpatient dose of levothyroxine 16. Hyperlipidemia Continue atorvastatin 17. GERD On Protonix b.i.d. 18. Class 3 obesity BMI is 41.5.? She is at significantly higher risk of morbidity and mortality related to her obesity and would benefit from weight reduction. 19. Acute on chronic hyponatremia, present on admission. Improving. - Na initially 134, dipped to 128 - started IVF and improved to 133 Code status DNR DNI Prophylaxis On warfarin Disposition Plan to continue antibiotiocs home, likely discharge home with home health tomorrow to complete antibiotics on 10/27 with ID follow up that day as well.
[2022-10-23] MEDS: NYSTATIN CREAM 30 GM 1 APPLIC TOP ×2 (14:31→21:12)
[2022-10-23] MEDS: WARFARIN 1 MG TABLET PO (17:10)
[2022-10-23] MEDS: NORTRIPTYLINE HCL 25 MG CAPSULE PO (21:09)
[2022-10-23] MEDS: PRAMIPEXOLE 0.25 MG TABLET 0.5 MG PO (21:13)
[2022-10-23] MEDS: diphenhydrAMINE 50 MG/ML VIAL 25 MG IV (21:19)
[2022-10-24] VITALS (28 sets, daily range): BP systolic 105–142; BP diastolic 59–61; PULSE 63–100; RESP 20; TEMP 36.3–36.7; O2SAT 89–100
[2022-10-24 05:07] LABS: INR 1.7 (0.9-1.3)
[2022-10-24] MEDS: LEVOTHYROXINE 75 MCG TABLET PO (06:22)
[2022-10-24] MEDS: MEROPENEM 2 GM in SODIUM CHLORIDE 0.9% 100 ML IV ×2 (06:23→14:50)
[2022-10-24] MEDS: ALBUTEROL/IPRATROPIUM 3 ML AMPUL INH (06:35)
--- NOTE | 2022-10-24 08:09 | PC.NURSE ---
Assess- Patients blood sugar 117. Patient will get her lantus insulin with breakfast this morning. Patient did cough a bit this morning but this quickly resolved. She is tolerating her oxygen. Patient is on 3-5L of oxygen and she does occasionally have some wheezes upon auscultation. Up with one person assist and walker. Patient does use a pure wick to urinate when in bed.
[2022-10-24] MEDS: DULOXETINE 30 MG CAPSULE PO (08:36)
[2022-10-24] MEDS: predniSONE 5 MG TABLET PO (08:36)
[2022-10-24] MEDS: NYSTATIN CREAM 30 GM 1 APPLIC TOP (08:37)
[2022-10-24] MEDS: PANTOPRAZOLE 40 MG VIAL IV (08:37)
[2022-10-24] MEDS: cloNIDine 0.1 MG TABLET 0.05 MG PO (08:37)
[2022-10-24] MEDS: METOPROLOL ER 25 MG TABLET PO (08:37)
[2022-10-24] MEDS: INSULIN GLARGINE 100 UNIT/ML 3ML PEN 30 UNIT SUBCUT (08:37)
--- NOTE | 2022-10-24 09:13 | CM.DPC ---
DCP Discharge Home with infusion and HH Per MD, pt medically stable to discharge home today with ongoing IV Meropenem and HH. SW met bedside with pt and spouse and confirmed they are agreeable and ready to d/c home today and plan is after pt's 1400 Meropenem dose and spouse already spoke to [facility] Pharmacist today and Meropenem will be delivered to the home prior to pt's next dose after 1400 in a refrigerated pack. SW called Carroll at [facility] and updated on pt discharge today after 1400 dose and SW to fax d/c summary to [facility] when available. Spouse and pt confirm they feel comfortable with d/c home via spouse POV and PT/OT confirm pt should be safe for transport via POV. SW called [facility] and updated on pt discharge home today with Resumption of OT and add RN/PT/CORDUROY BRUSHER OPERATOR and will fax d/c summary and Resume Orders when available. Plan: Patient to d/c home today via spouse POV after 1400 IV-Abx dose with [facility] to follow and Resume [facility] and has scheduled appointment with ID MD Dr. Whalen on 10/27/22. Millie Dumont MSW
[2022-10-24] MEDS: OXYCODONE/ACETAMINOPHEN 5/325 TABLET 1 TAB PO (09:17)
[2022-10-24] MEDS: SENNOSIDES 8.6 MG TABLET PO (09:17)
[2022-10-24] MEDS: OXYCODONE IR 5 MG TABLET PO (09:17)
--- NOTE | 2022-10-24 09:19 | PM.DS.1 ---
History of Present Illness History of Present Illness Date Patient Seen: 10/24/22 Time Patient Seen: 09:19 Chief complaint: Chronic Pneumonia Narrative: Per admitting provider, Radha Zavaleta is a 71-year-old female with a history of asthma, bronchiectasis with multiple previous pseudomonal, stenotrophomonas and MRSA pneumonias on chronic azithro, chronic hypoxic resp failure on 5L NC, CVID on q3w IVIG infusions and prednisone, A-fib not on anticaog due to hematoma, , NSTEMI in January 2022, LORENE, DM2, asthma, chronic hip and back pain on fentanyl patch, hypothyroidism, hypertension and hyperlipidemia who presents with recurrent PNA. Patient's is providing history as patient is somnolent. He states that she developed a progressively productive cough of brown sputum the past 3 days and had a fever up to 100.3F last night. She has had multiple admissions in the past for pneumonias due to her CVID. She is followed by pulmonology, pain medicine, allergy/immunology, and infectious disease. In the ED patient was satting 90% on her baseline 5-6L NC so was put on HFNC. CXR shows bilateral pneumonia so vanc and zosyn ordered. Discharge Providers Provider Date of admission: 10/13/22 12:20 Discharge Date: 10/24/22 Primary care physician: Karin Porter MD Consults: 10/14/22 08:50 Consult to Tele-educational speech language clinician Routine Comment: Consulting Provider: [facility] [employer] Reason for consultation: [employer] services Has provider been notified: No 10/15/22 07:27 Consult to Pharmacy Routine Comment: pls change warfarin to 1 mg 5d/wk and 0.5 mg 2 d/w 10/17/22 08:35 Consult to Occupational Therapy Evaluate & Treat Comment: Physician Instructions: Evaluate and treat Consult to Physical Therapy Evaluate & Treat Comment: Physician Instructions: Evaluate and Treat Discharge provider: Harjeet Nance DO Summary Hospital Course Discharge Diagnosis: 1. Sepsis secondary to pseudomonas right lower lobe pneumonia in the setting of chronic immunodeficiency ? 2. Bilateral pseudomonal pneumonia in a chronically immunosuppressed patient 3. Acute on chronic hypoxic respiratory failure, acute portion resolved 4. CVID 5. Acute metabolic encephalopathy, improved 6. Hypomagnesemia, hypokalemia 7. History of pulmonary embolism 8. Atrial fibrillation with supratherapeutic INR 9. Chronic heart failure with preserved ejection fraction 10. Diabetes mellitus type 2 11. Chronic pain syndrome 12. Neuropathy, chronic 13. Asthma, chronic persistent 14. Restless leg syndrome 15. Hypothyroidism 16. Hyperlipidemia 17. GERD 18. Class 3 obesity 19. Acute on chronic hyponatremia, present on admission. Improving. Hospital Course: This is a 72 year old female with chronic respiratory failure who presented with worsened oxygenation requirements compared to baseline and shortness of breath. She has a history of recurrent pseudomonal pneumonias in the past. She was admitted with sepsis secondary to another pseudomonal pneumonia, she initially improved on cefepime but then developed an acute encephalopathy either secondary to resistant pseudomonas or the drug itself. She eventually returned to her basleline respiratory status on 4-5L of oxygen, with subjective improvement as well. Infectious disease recommended change to meropenem with antibiotics to continue until 10/27/22 based on sputum cultures which showed intermediate resistance to cefepime. She will follow up with Dr. Whalen as an outpatient scheduled for 10/27/22. Course also was notable for mild hypovolemic hyponatremia, which improved with fluids as well as hypokalemia and hypomagnesemia. She is at significantly higher risk of morbidity and mortality related to her obesity and would benefit from weight reduction. INR was also elevated on admission, and warfarin was held. INR at the time of discharge was 1.7 and she should resume prior home dosing. Time Spent with Patient Time spent: Greater than 30 minutes Exam Vital Signs (past 8 hours): - 10/24/22 01:30 10/24/22 02:00 10/24/22 02:30 Temperature Pulse Rate 63 65 68 Respiratory Rate Blood Pressure Pulse Oximetry 98 97 95 Oxygen Delivery Method Oxygen Flow Rate Fraction of Inspired Oxygen 10/24/22 03:00 10/24/22 03:30 10/24/22 04:00 Temperature Pulse Rate 65 66 75 Respiratory Rate Blood Pressure Pulse Oximetry 93 97 94 Oxygen Delivery Method Oxygen Flow Rate Fraction of Inspired Oxygen 10/24/22 04:22 10/24/22 04:22 10/24/22 06:35 Temperature 97.4 F L Pulse Rate 72 82 Respiratory Rate 20 Blood Pressure 133/60 Pulse Oximetry 93 95 Oxygen Delivery Method Nasal Cannula Oxygen Flow Rate 4.5 4.5 Fraction of Inspired Oxygen 38 10/24/22 04:30 10/24/22 05:00 10/24/22 05:30 Temperature 98.1 F Pulse Rate 76 75 76 Respiratory Rate Blood Pressure Pulse Oximetry 96 100 98 Oxygen Delivery Method Oxygen Flow Rate 4.5 Fraction of Inspired Oxygen 10/24/22 06:00 10/24/22 06:30 10/24/22 07:00 Temperature Pulse Rate 75 87 81 Respiratory Rate Blood Pressure Pulse Oximetry 98 92 94 Oxygen Delivery Method Oxygen Flow Rate Fraction of Inspired Oxygen 10/24/22 07:30 10/24/22 07:38 10/24/22 07:38 Temperature Pulse Rate 76 100 H Respiratory Rate Blood Pressure 142/61 H Pulse Oximetry 95 89 L Oxygen Delivery Method Oxygen Flow Rate Fraction of Inspired Oxygen 10/24/22 08:00 Temperature Pulse Rate 88 Respiratory Rate Blood Pressure Pulse Oximetry 92 Oxygen Delivery Method Oxygen Flow Rate Fraction of Inspired Oxygen Fraction of Inspired Oxygen 38 SaO2/FiO2 Ratio 250 Oxygen Delivery Method Nasal Cannula Oxygen Flow Rate 4.5 Narrative Exam Narrative: Alert and oriented x3. Heart is regular rate and rhythm without murmur Lungs are clear to auscultation bilaterally Extremities have no ankle edema Abdomen is soft, bowel sounds positive, nontender, no organomegaly. She is quite pleasant and interactive today. No myoclonus is observed. 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 Osteopenia Pneumonia Pneumonia Recurrent sinusitis (~1970) Restless leg syndrome Shoulder pain (~03/2018) Sleep apnea Wears glasses Surgical History Anesthesia History of carpal tunnel release History of cataract removal with insertion of prosthetic lens (~2014) History of section History of laminectomy (~2002) History of spinal fusion (~2012) History of thumb surgery Family History Father Stroke Mother Hypertension Brother Cerebral aneurysm Prostate cancer Diabetes mellitus Hypertension Stroke Brother Arthritis Hyperlipidemia Hypertension Sister History of kidney cancer Hypertension Grandfather Cancer Grandmother Cancer Other Family history non-contributory Social History marital status: household members: spouse lives independently: Yes occupational status: previously employed Smoking Status: Never smoker alcohol intake: current substance use type: does not use Discharge Plan Discharge Plan Patient Disposition: Home Health Service Provider Discharge Comment: You were admitted to the hospital with pseudomonal pneumonia. Changed antibiotics based on resistance. Continue meropenem, follow up with Dr. Whalen on 10/27. Discharge orders & Medications Prescriptions: New meropenem 1 gram recon soln 2 g IV Q8H 4 Days Qty: 24 0RF Continued polyethylene glycol 3350 [Miralax] 119 GM powder 17 gm PO DAILY PRN (Reason: Constipation) Qty: 0 ondansetron HCl [Zofran] 4 mg tablet 4 mg PO Q8H PRN (Reason: nausea and vomiting) Qty: 30 1RF (DME) insulin syringe-needle U-100 [BD Insulin Syringe Ultra-Fine] 0.5 mL 31 gauge x 5/16 syringe See Rx Instructions .ROUTE .MEDSUPPLY Qty: 100 1RF Rx Instructions: Use once a day as directed metformin 1,000 mg tablet 1,000 mg PO BID Qty: 180 0RF (DME) verio reflect glucometer Qty: 1 0RF Rx Instructions: As directed ferrous sulfate 325 mg (65 mg iron) tablet 325 mg PO BEDTIME tizanidine 4 mg capsule 4 mg PO QID PRN (Reason: Muscle Spasm) cholecalciferol (vitamin D3) 2,000 unit tablet 2,000 unit PO DAILY albuterol sulfate 90 mcg/actuation HFA aerosol inhaler 2 puff INHALATION Q4-6H PRN (Reason: Shortness Of Breath) lansoprazole [Prevacid 24Hr] 15 mg Capsule,Delayed Release(Dr/Ec) 30 mg PO BID fentanyl 25 mcg/hr patch 72 hour 1 patch transdermal Q72H PRN (Reason: pain (scale score 1-3)) Qty: 5 0RF Patient Comments: placed today at home omega-3 fatty acids Capsule 1,000 mg PO DAILY fluticasone propion-salmeterol [Advair Diskus] 500-50 mcg/dose Blister With Device 1 inh INHALATION Q12H Hizintra 15 g auto-injector 15 g SUBCUT QWEEK calcium carbonate 200 mg calcium (500 mg) Tablet,Chewable 1,000 mg PO Q4HR PRN (Reason: Dyspepsia) Qty: 60 0RF docusate sodium 100 mg Capsule 100 mg PO BID Qty: 60 0RF furosemide 40 mg Tablet 40 mg PO 0800,1700 Qty: 60 0RF alum-mag hydroxide-simeth [Mag-Al Plus] 200-200-20 mg/5 mL Suspension 30 ml PO Q6HR PRN (Reason: Dyspepsia) Qty: 355 0RF sennosides [senna] 8.6 mg Tablet 17.2 mg PO BEDTIME Qty: 60 0RF potassium chloride 20 mEq/15 mL Liquid 20 meq PO BIDWM Qty: 250 0RF sodium chloride 3 % Solution For Nebulization 3 ml INHALATION BID Rx Instructions: use w/ nebulizer 2 x daily montelukast [Singulair] 10 mg Tablet 10 mg PO BEDTIME Zyrtec 10 mg Capsule 10 mg PO DAILY atorvastatin 40 mg Tablet 40 mg PO BEDTIME ipratropium-albuterol 0.5 mg-3 mg(2.5 mg base)/3 mL Solution For Nebulization 3 ml INHALATION BID Rx Instructions: and every 4 hours as needed levothyroxine 75 mcg Tablet 75 mcg PO QAM nortriptyline 25 mg Capsule 25 mg PO BEDTIME epinephrine [EpiPen] 0.3 mg/0.3 mL Auto-Injector 0.3 mg IM Q5-15M PRN (Reason: Allergic Reaction) Rx Instructions: do not exceed 3 doses per episode Spiriva with HandiHaler 18 mcg Capsule, W/Inhalation Device 1 cap INHALATION DAILY Rx Instructions: puncture 1 cap using device; one dose = 2 inhalations insulin glargine 100 unit/mL solution 30 unit SUBCUT QAM insulin lispro [Humalog KwikPen Insulin] 100 unit/mL insulin pen 4 - 8 unit SUBCUT TID pramipexole 0.5 mg tablet 0.5 mg PO BEDTIME fluticasone propion-salmeterol [Wixela Inhub] 500-50 mcg/dose Blister With Device 1 inh INHALATION BID duloxetine 30 mg Capsule,Delayed Release(Dr/Ec) 30 mg PO DAILY oxycodone-acetaminophen [Percocet] 10-325 mg Tablet 1 tab PO Q4H PRN (Reason: Pain (Scale Score 4-6)) Mucinex 1,200 mg Tablet Extended Release 12hr 1,200 mg PO BID clonidine HCl 0.1 mg tablet 0.05 mg PO BID prednisone 5 mg tablet 5 mg PO DAILY daiaatynjg-hxsliaeoskjho-semv 50-325-40 mg Tablet 1 tab PO Q6H PRN (Reason: Migraine Headache) oxycodone 5 mg Capsule 15 mg PO Q6H PRN (Reason: Pain (Scale Score 7-10)) oxymetazoline 0.05 % Drops 1 drp INTRANASAL BID PRN (Reason: Congestion) Fasenra 30 mg/mL Syringe 30 mg SUBCUT Q8W fentanyl 12 mcg/hr patch 72 hour 12 mcg transdermal SEEINSTR Patient Comments: apply 1 patch to CLEAN, DRY, AND INTACT SKIN every 72 hours Rx Instructions: Q72HR in addition to 25mcg patch warfarin 1 mg tablet 1 mg PO DAILY Follow up/Referrals: Karin Porter MD [Primary Care Provider] - Diet/Activity/Treatments Diet: Diet as Tolerated and Carb-consistent/Diabetic Activity: As tolerated no restrictions Visit Report/Discharge Packet Instructions: Pneumonia-Adult, Meropenem Injection Stand Alone Forms: Patient Portal/API, Stroke Signs & Symptoms Discharge Data Primary Care Provider: Karin Porter
[2022-10-24] MEDS: diphenhydrAMINE 50 MG/ML VIAL 25 MG IV (10:43)
--- NOTE | 2022-10-24 11:41 | PT.IPTN ---
Current Diagnoses Sepsis, unspecified organism (10/13/22) Physical Therapy Treatment Note M2 PT-IP Current Condition Start: 10/17/22 15:10 Freq: NEEDED Status: Active Protocol: Document 10/17/22 16:17 AMB (Rec: 10/17/22 16:33 AMB [id number]) Physical Therapy Current Condition Current Condition Evaluation Date 10/17/22 Treatment Diagnosis pneumonia, weakness Onset Date 10/13/22 M3 PT-IP Subjective Start: 10/17/22 15:10 Freq: NEEDED Status: Active Protocol: Document 10/24/22 12:57 TS (Rec: 10/24/22 13:08 TS [id number]) Subjective Physical Therapy Visit Type Type Treatment Note Visit Start Time 11:41 Visit Stop Time 11:55 Total Visit Minutes 14 Number of CHIEF [employer] Visits 4 Physical Therapy Visit Comments Patient Comments Pt found resting in chair, agreeable to PT. M4 PT-IP Mobility and Gait Start: 10/17/22 15:10 Freq: NEEDED Status: Active Protocol: Document 10/24/22 12:57 TS (Rec: 10/24/22 13:08 TS [id number]) PT-Transfer Assessment Sit to and From Stand Sit to and from Stand Maximum Assistance,1 Person Assistance,Use of Upper Extremities Equipment Transfer Assistive Device Gait Belt,Front Wheeled Walker Comments Mobility Comments Pt found resting in chair, agreeable to PT. Sit to stand from chair x2, x1 could not fully come into standing on first attempt, x1 MaxA with FWW, pt uses momentum to stand . Pt stood in front of chair CGA, pt attempted to ambulate but requested to sit back down due to SOB. Spo2 taken sitting in chair 93% on 5L. Therapist attempted to have pt stand again but she requested to stay seated. Pt was left in chair with call light nearby and all needs met. Gait Assessment Comments Gait Comments Did not ambulate this session. PT-Balance Assessment Sitting Balance and Reactions Static Sitting Balance Ability Fair Dynamic Sitting Balance Ability Fair Standing Balance and Reactions Static Standing Balance Ability Fair Dynamic Standing Balance Ability Fair Device Used FWW M5 PT-IP Objective Assessments Start: 10/17/22 15:10 Freq: NEEDED Status: Active Protocol: Document 10/17/22 16:17 AMB (Rec: 10/17/22 16:33 AMB [id number]) Orientation Orientation/Cognition Level of Alertness Alert Strength Upper Extremity Strength Assessment Within Functional Limits Lower Extremity Strength Hip 3 Knee 3 Ankle 3 Comments Strength Comments Generally weak LEs M6 PT-IP Treatment Start: 10/17/22 15:10 Freq: NEEDED Status: Active Protocol: Document 10/24/22 12:57 TS (Rec: 10/24/22 13:08 TS [id number]) Physical Therapy Treatment Education Education Provided Safety M7 PT-IP Assessment and Plan Start: 10/17/22 15:10 Freq: NEEDED Status: Active Protocol: Document 10/24/22 12:57 TS (Rec: 10/24/22 13:08 TS [id number]) PT Summary Assessment and Plan Potential Rehabilitation Potential Fair Summary Impairments Strength,Bed Mobility, Transfers,Gait,Activity Tolerance Progress Towards Goals Slow Progress due to Medical Issues,Slow Progress due to Activity Tolerance Assessment Summary Pt continues to make slow progress with her mobility. She performed sit to stands x2 MaxA from low surface of chair with FWW, she uses momentum to stand. In standing pt reported feeling SOB and sat back in chair, Spo2 93% on 5L. Pt attempted to stand again but could not due to feeling of SOB and requested to remain seated. She could not progress her gait this session due to poor activity tolerance and fatigue. PT is recommending return home with spouse for / assist and HHPT when medically stable. Goals Bed Mobility Goal Standby Assistance Transfer Goal Standby Assistance Gait Goal Contact Guard Assistance Gait Distance 200 Days to Meet Goals 7 Frequency of Treatment Frequency Of Treatment Once a Day Treatment Plan Physical Therapy Treatment Plan Bed Mobility Training,Transfer Training,Gait Training, Therapeutic Exercise,Balance Retraining,Neuromuscular Re-ed Other Recommendations and Next Treatment Progress ambulation as able. Focus Continue ther ex for strengthening. Recommendations To Nursing Amount of Assist Needed 1 Person Assist Discharge Recommendations PT Discharge Recommendations Home with 06/11 Assist Available,Home Health Transportation Needs at Discharge Private Vehicle
[2022-10-24] MEDS: INSULIN LISPRO 100 UNIT/ML 3ML VIAL SUBCUT (12:36)
[2022-10-24] MEDS: ALBUTEROL 2.5 MG/3 ML NEB (ADULT) INH (14:19)
[2022-10-24] MEDS: SODIUM CHLORIDE 0.9% FLUSH 10 ML IV (14:27)
== END 2022-10-24 16:01 | disposition home health service (06) | DRG 871 ==
LOC: ED 09:59 → AC 12:21 → ICU 13:33
PROVIDERS: Family Medicine; Internal Medicine Critical Care Medicine; Nurse Practitioner Family; Admitting Provider Student in an Organized Health Care Education/Training Program; Emergency Provider Emergency Medicine; Family Provider Internal Medicine Infectious Disease; PCP Internal Medicine; Referring Provider Emergency Medicine; Visit Provider Student in an Organized Health Care Education/Training Program
DX: A41.52 Sepsis due to Pseudomonas (principal); G93.41 Metabolic encephalopathy; J18.9 Pneumonia, unspecified organism; J96.21 Acute and chronic respiratory failure with hypoxia; D83.9 Common variable immunodeficiency, unspecified; I50.32 Chronic diastolic (congestive) heart failure; Z68.41 Body mass index [BMI] 40.0-44.9, adult; N39.0 Urinary tract infection, site not specified; Z16.39 Resistance to other specified antimicrobial drug; E87.1 Hypo-osmolality and hyponatremia; J45.909 Unspecified asthma, uncomplicated; J47.9 Bronchiectasis, uncomplicated; E83.42 Hypomagnesemia; G25.81 Restless legs syndrome; E11.40 Type 2 diabetes mellitus with diabetic neuropathy, unspecified; E03.9 Hypothyroidism, unspecified; E78.5 Hyperlipidemia, unspecified; K21.9 Gastro-esophageal reflux disease without esophagitis; I48.91 Unspecified atrial fibrillation; E66.01 Morbid (severe) obesity due to excess calories; B96.20 Unspecified Escherichia coli [E. coli] as the cause of diseases classified elsewhere; E87.6 Hypokalemia; G89.4 Chronic pain syndrome; R79.1 Abnormal coagulation profile; D64.9 Anemia, unspecified; Z79.84 Long term (current) use of oral hypoglycemic drugs; Z86.711 Personal history of pulmonary embolism; Z79.01 Long term (current) use of anticoagulants; Z66 Do not resuscitate; Z79.4 Long term (current) use of insulin; Z99.81 Dependence on supplemental oxygen; Z20.822 Contact with and (suspected) exposure to COVID-19
CPT/HCPCS: 36415; 36600; 71045; 80048; 80053; 81001; 82550; 82805; 82962; 83605; 83735; 83880; 84145; 84484; 85007; 85025; 85610; 85730; 87040; 87070; 87077; 87086; 87186; 87205; 87633; 87797; 93010; 94640; 94762; 96374; 97110; 97116; 97161; 97530; 99232; 99285; C9113; J0360; J0692; J0780; J1170; J1200; J1642; J1815; J1940; J1956; J2185; J2270; J2405; J2543; J3475; J7613

== ENCOUNTER 2022-10-24 23:29 | Emergency (ER) | payer OTHER, SELFPAY ==
[2022-06-07 07:30] VITALS: PULSE 84; RESP 20; O2SAT 99
[2022-10-13 14:55] VITALS: BMI 41.4
[2022-10-24 23:30] VITALS: BP 120/58; PULSE 72; RESP 20; TEMP 36.6; O2SAT 94
--- NOTE | 2022-10-24 23:35 | ED.GENADULT ---
HPI - General Adult General Stated complaint: midline IV blocked Time Seen by Provider: 10/24/22 23:33 Source: patient Mode of arrival: Wheelchair Limitations: no limitations History of Present Illness HPI narrative: Patient is a 72-year-old female who has a PICC line in her left upper extremity in order for her to receive meropenem 3 times a day. She is already received 2 doses of beer today but when they tried to infuse the 3rd dose they could not flush the PICC line. They are here to have the PICC line evaluated. Related Data Home Medications Medication Instructions Recorded Confirmed polyethylene glycol 3350 17 17 gm PO DAILY PRN Constipation ##0 06/06/17 10/13/22 gram/dose oral powder (Miralax) albuterol sulfate 90 mcg/actuation 2 puff inhalation Q4-6H PRN 05/29/19 10/13/22 aerosol inhaler Shortness Of Breath cholecalciferol (vitamin D3) 50 2,000 unit PO DAILY 05/29/19 10/13/22 mcg (2,000 unit) tablet ferrous sulfate 325 mg (65 mg 325 mg PO BEDTIME 05/29/19 10/13/22 iron) tablet tizanidine 4 mg capsule 4 mg PO QID PRN Muscle Spasm 05/29/19 10/13/22 sodium chloride 3 % for 3 ml inhalation BID 06/05/19 10/13/22 nebulization cetirizine 10 mg capsule (Zyrtec) 10 mg PO DAILY allergies 01/20/20 10/13/22 montelukast 10 mg tablet 10 mg PO BEDTIME 01/20/20 10/13/22 (Singulair) atorvastatin 40 mg tablet 40 mg PO BEDTIME 04/20/21 10/13/22 epinephrine 0.3 mg/0.3 mL 0.3 mg IM Q5-15M PRN Allergic 04/20/21 10/13/22 injection, auto-injector (EpiPen) Reaction insulin glargine 100 unit/mL 30 unit SUBCUT QAM 04/20/21 10/13/22 subcutaneous solution insulin lispro 100 unit/mL 4 - 8 unit SUBCUT TID 04/20/21 10/13/22 subcutaneous pen (Humalog KwikPen (U-100) Insulin) ipratropium 0.5 mg-albuterol 3 mg 3 ml inhalation BID 04/20/21 10/13/22 (2.5 mg base)/3 mL nebulization soln levothyroxine 75 mcg tablet 75 mcg PO QAM 04/20/21 10/13/22 nortriptyline 25 mg capsule 25 mg PO BEDTIME 04/20/21 10/13/22 tiotropium bromide 18 mcg capsule 1 cap inhalation DAILY 04/20/21 10/13/22 with inhalation device (Spiriva with HandiHaler) lansoprazole 15 mg capsule,delayed 30 mg PO BID 04/29/21 10/13/22 release (Prevacid 24Hr) duloxetine 30 mg capsule,delayed 30 mg PO DAILY 06/28/21 10/13/22 release fluticasone 500 mcg-salmeterol 50 1 inh inhalation BID 06/28/21 10/13/22 mcg/dose blistr powdr for inhalation (Wixela Inhub) guaifenesin 1,200 mg tablet, 1,200 mg PO BID 06/28/21 10/13/22 extended release 12 hr (Mucinex) oxycodone-acetaminophen 10 mg-325 1 tab PO Q4H PRN Pain (Scale Score 06/28/21 10/13/22 mg tablet (Percocet) 4-6) pramipexole 0.5 mg tablet 0.5 mg PO BEDTIME 06/28/21 10/13/22 omega-3 fatty acids 1,000 mg PO DAILY 04/24/22 10/13/22 benralizumab 30 mg/mL subcutaneous 30 mg SUBCUT Q8W 06/03/22 10/13/22 syringe (Fasenra) [id number] 1 tab PO Q6H PRN Migraine Headache 06/03/22 10/13/22 50 mg-325 mg-40 mg tablet clonidine HCl 0.1 mg tablet 0.05 mg PO BID 06/03/22 10/13/22 oxycodone 5 mg capsule 15 mg PO Q6H PRN Pain (Scale Score 06/03/22 10/13/22 7-10) oxymetazoline 0.05 % nasal drops 1 drp intranasal BID PRN Congestion 06/03/22 10/13/22 prednisone 5 mg tablet 5 mg PO DAILY 06/03/22 10/13/22 Hizintra 15 g SUBCUT QWEEK 08/25/22 10/13/22 fluticasone 500 mcg-salmeterol 50 1 inh inhalation Q12H 08/25/22 10/13/22 mcg/dose blistr powdr for inhalation (Advair Diskus) fentanyl 12 mcg/hr transdermal 12 mcg transdermal SEEINSTR 10/13/22 10/13/22 patch warfarin 1 mg tablet 1 mg PO DAILY 10/13/22 10/13/22 Previous Rx's Medication Instructions Recorded ondansetron HCl 4 mg tablet 4 mg PO Q8H PRN nausea and 10/06/19 (Zofran) vomiting #30 tabs verio reflect glucometer #1 ea 01/28/20 insulin syringe-needle U-100 0.5 #100 ea 03/30/20 mL 31 gauge x 5/16 (BD Insulin Syringe Ultra-Fine) metformin 1,000 mg tablet 1,000 mg PO BID #180 tabs 09/03/20 fentanyl 25 mcg/hr transdermal 1 patch transdermal Q72H PRN pain 02/05/22 patch (scale score 1-3) #5 ea aluminum-mag hydroxide-simethicone 30 ml PO Q6HR PRN Dyspepsia #355 mL 08/28/22 200 mg-200 mg-20 mg/5 mL oral susp (Mag-Al Plus) calcium carbonate 200 mg calcium 1,000 mg PO Q4HR PRN Dyspepsia #60 08/28/22 (500 mg) chewable tablet tabs docusate sodium 100 mg capsule 100 mg PO BID #60 caps 08/28/22 furosemide 40 mg tablet 40 mg PO 0800,1700 #60 tabs 08/28/22 potassium chloride 20 mEq/15 mL 20 meq (15 mL) PO BIDWM #250 mL 08/28/22 oral liquid sennosides 8.6 mg tablet (senna) 17.2 mg PO BEDTIME #60 tabs 08/28/22 meropenem 1 gram intravenous 2 g IV Q8H 4 days #24 ea 10/24/22 solution Allergies Allergy/AdvReac Type Severity Reaction Status Date / Time hydroxychloroquine Allergy Unknown Verified 09/14/22 14:35 [HYDROXYCHLOROQUINE] cefepime AdvReac Intermediate pruritis Verified 09/14/22 14:35 promethazine [From Phenergan] AdvReac Agitated Verified 10/13/22 14:35 Review of Systems Musculoskeletal Musculoskeletal: Reports system reviewed and no additional complaints, except as documented Patient History Medical History Abnormal chest xray (~1979) Anemia Ankle pain Anticoagulated Asthma (~1959) Bronchiectasis (~2006) Cervical spine disease Chronic back pain Colon polyps (~2015) Degenerative joint disease of spine (~2001) Diabetes mellitus, type II (~2009) Eczema Fibromyalgia Foot pain Hoarseness Hyperlipidemia Hypertension Hypothyroidism Migraines (~1964) 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 Osteopenia Pneumonia Pneumonia Recurrent sinusitis (~1970) Restless leg syndrome Shoulder pain (~03/2018) Sleep apnea Wears glasses Surgical History Anesthesia History of carpal tunnel release History of cataract removal with insertion of prosthetic lens (~2014) History of section History of laminectomy (~2002) History of spinal fusion (~2012) History of thumb surgery Family History Father Stroke Mother Hypertension Brother Cerebral aneurysm Prostate cancer Diabetes mellitus Hypertension Stroke Brother Arthritis Hyperlipidemia Hypertension Sister History of kidney cancer Hypertension Grandfather Cancer Grandmother Cancer Other Family history non-contributory Social History marital status: household members: spouse lives independently: Yes occupational status: previously employed Smoking Status: Never smoker alcohol intake: current substance use type: does not use Smoking Status: Never smoker alcohol intake frequency: holidays/special occasions only Substance Use Type: does not use Exam Skin Other: Skin around the PICC line appears well Extrem Other: PICC line is in the left upper extremity. Medical Decision Making MDM Narrative Medical decision making narrative: PICC line was flushed here in the emergency department. It does appear to be a positional issue. Discharge patient home so she can continue to follow her antibiotic regimen. Discharge Plan Departure Patient Disposition: Home Clinical Impression: PICC (peripherally inserted central catheter) flush Activity Restrictions/Additional Instructions: Continue to take all of your medications as directed to include the antibiotics. Return to the emergency department for new or worsening symptoms. Prescriptions: No Action polyethylene glycol 3350 [Miralax] 119 GM powder 17 gm PO DAILY PRN (Reason: Constipation) Qty: 0 ondansetron HCl [Zofran] 4 mg tablet 4 mg PO Q8H PRN (Reason: nausea and vomiting) Qty: 30 1RF (DME) insulin syringe-needle U-100 [BD Insulin Syringe Ultra-Fine] 0.5 mL 31 gauge x 5/16 syringe See Rx Instructions .ROUTE .MEDSUPPLY Qty: 100 1RF Rx Instructions: Use once a day as directed metformin 1,000 mg tablet 1,000 mg PO BID Qty: 180 0RF (DME) verio reflect glucometer Qty: 1 0RF Rx Instructions: As directed ferrous sulfate 325 mg (65 mg iron) tablet 325 mg PO BEDTIME tizanidine 4 mg capsule 4 mg PO QID PRN (Reason: Muscle Spasm) cholecalciferol (vitamin D3) 2,000 unit tablet 2,000 unit PO DAILY albuterol sulfate 90 mcg/actuation HFA aerosol inhaler 2 puff INHALATION Q4-6H PRN (Reason: Shortness Of Breath) lansoprazole [Prevacid 24Hr] 15 mg Capsule,Delayed Release(Dr/Ec) 30 mg PO BID fentanyl 25 mcg/hr patch 72 hour 1 patch transdermal Q72H PRN (Reason: pain (scale score 1-3)) Qty: 5 0RF Patient Comments: placed today at home omega-3 fatty acids Capsule 1,000 mg PO DAILY fluticasone propion-salmeterol [Advair Diskus] 500-50 mcg/dose Blister With Device 1 inh INHALATION Q12H Hizintra 15 g auto-injector 15 g SUBCUT QWEEK calcium carbonate 200 mg calcium (500 mg) Tablet,Chewable 1,000 mg PO Q4HR PRN (Reason: Dyspepsia) Qty: 60 0RF docusate sodium 100 mg Capsule 100 mg PO BID Qty: 60 0RF furosemide 40 mg Tablet 40 mg PO 0800,1700 Qty: 60 0RF alum-mag hydroxide-simeth [Mag-Al Plus] 200-200-20 mg/5 mL Suspension 30 ml PO Q6HR PRN (Reason: Dyspepsia) Qty: 355 0RF sennosides [senna] 8.6 mg Tablet 17.2 mg PO BEDTIME Qty: 60 0RF potassium chloride 20 mEq/15 mL Liquid 20 meq PO BIDWM Qty: 250 0RF sodium chloride 3 % Solution For Nebulization 3 ml INHALATION BID Rx Instructions: use w/ nebulizer 2 x daily montelukast [Singulair] 10 mg Tablet 10 mg PO BEDTIME Zyrtec 10 mg Capsule 10 mg PO DAILY atorvastatin 40 mg Tablet 40 mg PO BEDTIME ipratropium-albuterol 0.5 mg-3 mg(2.5 mg base)/3 mL Solution For Nebulization 3 ml INHALATION BID Rx Instructions: and every 4 hours as needed levothyroxine 75 mcg Tablet 75 mcg PO QAM nortriptyline 25 mg Capsule 25 mg PO BEDTIME epinephrine [EpiPen] 0.3 mg/0.3 mL Auto-Injector 0.3 mg IM Q5-15M PRN (Reason: Allergic Reaction) Rx Instructions: do not exceed 3 doses per episode Spiriva with HandiHaler 18 mcg Capsule, W/Inhalation Device 1 cap INHALATION DAILY Rx Instructions: puncture 1 cap using device; one dose = 2 inhalations insulin glargine 100 unit/mL solution 30 unit SUBCUT QAM insulin lispro [Humalog KwikPen Insulin] 100 unit/mL insulin pen 4 - 8 unit SUBCUT TID pramipexole 0.5 mg tablet 0.5 mg PO BEDTIME fluticasone propion-salmeterol [Wixela Inhub] 500-50 mcg/dose Blister With Device 1 inh INHALATION BID duloxetine 30 mg Capsule,Delayed Release(Dr/Ec) 30 mg PO DAILY oxycodone-acetaminophen [Percocet] 10-325 mg Tablet 1 tab PO Q4H PRN (Reason: Pain (Scale Score 4-6)) Mucinex 1,200 mg Tablet Extended Release 12hr 1,200 mg PO BID clonidine HCl 0.1 mg tablet 0.05 mg PO BID prednisone 5 mg tablet 5 mg PO DAILY [id number]-[id number]-[id number] 50-325-40 mg Tablet 1 tab PO Q6H PRN (Reason: Migraine Headache) oxycodone 5 mg Capsule 15 mg PO Q6H PRN (Reason: Pain (Scale Score 7-10)) oxymetazoline 0.05 % Drops 1 drp INTRANASAL BID PRN (Reason: Congestion) Fasenra 30 mg/mL Syringe 30 mg SUBCUT Q8W fentanyl 12 mcg/hr patch 72 hour 12 mcg transdermal SEEINSTR Patient Comments: apply 1 patch to CLEAN, DRY, AND INTACT SKIN every 72 hours Rx Instructions: Q72HR in addition to 25mcg patch warfarin 1 mg tablet 1 mg PO DAILY meropenem 1 gram recon soln 2 g IV Q8H 4 Days Qty: 24 0RF Referrals: Karin Porter MD [Primary Care Provider] - Stand Alone Forms: Patient Portal/API
--- NOTE | 2022-10-25 00:02 | PC.NURSE ---
Pt with midline placed for iv antibiotics. Line was positional and kinked. Replaced dressing and straightened midline, Flushed without difficulty.
== END 2022-10-25 00:07 | disposition home or self-care (01) ==
PROVIDERS: Emergency Provider Emergency Medicine; Family Provider Internal Medicine Infectious Disease; PCP Internal Medicine
DX: Z45.2 Encounter for adjustment and management of vascular access device (principal)
CPT/HCPCS: 99281; 99284

== ENCOUNTER 2022-10-27 09:23 | Emergency (ER) | payer OTHER, SELFPAY ==
[2022-06-07 07:30] VITALS: PULSE 84; RESP 20; O2SAT 99
[2022-10-13 14:55] VITALS: BMI 41.4
[2022-10-27] VITALS (41 sets, daily range): BP systolic 91–143; BP diastolic 52–83; PULSE 94–118; RESP 16–45; TEMP 36.3–36.5; O2SAT 89–99; BMI 34.3
[2022-10-27] MEDS: ONDANSETRON 4 MG/2 ML INJ (09:33)
--- NOTE | 2022-10-27 09:51 | DI.RAD.S_ITS ---
PROCEDURE: XR CHEST 1V INDICATIONS: Shortness of breath TECHNIQUE: One view of the chest was acquired. COMPARISON: [facility], CT, CT ANGIO CHEST PE PROTOCOL, 08/25/2022, 16:06. [facility], CR, XR CHEST 2 VIEWS, 09/20/2022, 10:36. [facility], CR, XR CHEST 1V, 10/13/2022, 10:28. FINDINGS: Surgical changes and devices: None. Lungs and pleura: Mild interstitial infiltrates bilaterally. No pleural effusions or pneumothorax. Mediastinum: Mediastinal contours appear normal. Heart size is mildly enlarged. Bones and chest wall: No suspicious bony lesions. Overlying soft tissues appear unremarkable. IMPRESSION: 1. Mild cardiomegaly and interstitial prominence suggesting mild CHF. Dictated by: Aubree Bardales M.D. on 10/27/2022 at 10:20 Approved by: Aubree Bardales M.D. on 10/27/2022 at 10:21
[2022-10-27 10:01] LABS: INR 3.4 (0.9-1.3); Prothrombin Time 39.6 SECONDS (10.1-12.7)
[2022-10-27 10:06] LABS: Add Manual Diff / Slide Review NO; Basophils Absolute Auto 0 /uL (0-100); Basophils Percent Auto 0.3 % (0-2); Eosinophils Absolute Auto 0 /uL (0-450); Eosinophils Percent Auto 0.1 % (2-4); Hematocrit 34.2 % (36-46); Hemoglobin 11.2 g/dL (12.0-16.0); Lymphocytes Absolute Auto 900 /uL (1100-4500); Lymphocytes Percent Auto 5.9 % (25-40); Mean Corpuscular HGB Conc 32.7 % (30-36); Mean Corpuscular Hemoglobin 27.2 PG (26-34); Mean Corpuscular Volume 83.1 fL (80-100); Monocytes Absolute Auto 1000 /uL (0-900); Monocytes Percent Auto 6.8 % (3-14); Neutrophils Absolute Auto 12600 /uL (1500-7000); Neutrophils Percent Auto 86.9 % (50-75); Platelet Count 583 X10^3/uL (150-400); Red Blood Cell Count 4.12 X10^6/uL (4.0-5.2); Red Cell Distribution Width 18.6 % (11.6-14.8); White Blood Cell Count 14.5 X10^3/uL (4.5-11.0)
[2022-10-27 10:07] LABS: Alanine Aminotransferase 17 IU/L (<35); Albumin 3.2 g/dL (3.5-5.0); Albumin Globulin Ratio 0.8 (1.0-2.8); Alkaline Phosphatase 104 U/L (38-126); Aspartate Aminotransferase 30 IU/L (14-36); BUN Creatinine Ratio 19.3 (6-22); Bilirubin Total 0.5 mg/dL (0.2-1.3); Blood Urea Nitrogen 16 mg/dL (7-17); Calcium 8.8 mg/dL (8.4-10.2); Carbon Dioxide 32 mmol/L (22-32); Chloride 94 mmol/L (98-107); Estimated Glomerular Filt Rate > 60 mL/min (>60); Globulin 3.8 g/dL (1.7-4.1); Glucose 116 mg/dL (80-110); HEMOLYSIS 16 (0-50); Potassium 3.6 mmol/L (3.4-5.1); Sodium 132 mmol/L (137-145)
[2022-10-27 10:12] LABS: COVID19 -Nasal RAPID Negative (Negative)
[2022-10-27 10:18] LABS: NT-proBNP (BNP-Adult 18+) 2450 pg/mL (<125); Troponin I 0.045 ng/mL (0.01-0.034)
--- NOTE | 2022-10-27 10:18 | DI.CT.S_ITS ---
PROCEDURE: CT ANGIO CHEST PE PROTOCOL INDICATIONS: recent pna, hx of dvt/pe's worsening shortness of breath TECHNIQUE: After the administration of intravenous contrast, 2 mm thick sections acquired from the pulmonary apices to the posterior costophrenic angles. 3-dimensional maximum intensity projection (MIP) coronal and sagittal reformats were then acquired through the thorax. For radiation dose reduction, the following was used: automated exposure control, adjustment of mA and/or kV according to patient size. COMPARISON: [facility], CT, CT ANGIO CHEST PE PROTOCOL, 04/29/2021, 20:34. [facility], CT, CT ANGIO CHEST PE PROTOCOL, 08/25/2022, 16:06. FINDINGS: Image quality: Excellent. Pulmonary arteries: Pulmonary arteries are normal in size, and demonstrate no intraluminal filling defects to suggest central pulmonary embolism. Lungs and pleura: Streaky opacities are present within the bases somewhat more confluent in the right progressive compared to prior exam. Mediastinum: Heart size is enlarged, without pericardial effusion. Numerous borderline enlarged mediastinal lymph nodes, unchanged since 08/25/2022 although more prominent since 2021.. Thoracic aorta is normal in caliber and enhancement. Esophagus is normal in caliber, without hiatal hernia. Bones and chest wall: No suspicious bony lesions. Ribs and thoracic spine appear intact throughout. Thyroid gland is unremarkable. No axillary or supraclavicular adenopathy. Abdomen: Partially visualized IVC filter is present. Visualized upper abdominal solid organs appear normal in the early arterial phase of enhancement. IMPRESSION: Streaky and partially consolidative opacities within the bases, right greater than left. While this could represent predominantly atelectasis, developing areas of underlying pneumonia cannot be excluded. No pulmonary embolism. Stable appearance of numerous borderline enlarged lymph nodes within the mediastinum compared to 08/25/2022 and more prominent since 04/29/2021. These could be reactive in nature and interval follow-up is recommended as indicated. Dictated by: Melony Boss M.D. on 10/27/2022 at 10:57 Approved by: Melony Boss M.D. on 10/27/2022 at 11:11
--- NOTE | 2022-10-27 10:27 | PC.NURSE ---
Pt has a long standing h/o bronchiectosis and wears 5L at home at baseline. Recent hospitalization here at for psuedomonas PNA and sent home on Meropenum 2g Q8hrs until 10/28/22. Arrives to ED c/o increased SOB and increased SOB on exertion. Currently on 5L and around 88-91%. Does not appear to be in any distress. History of PE/DVT and placed on eliquis in Apr 2021, subsequently failed eliquis after developing more DVT's and was placed on warfarin/lovenox bridging. After starting warfarin, INR around 9.0 and developed retroperotineal bleeding and had an IVC filter placed. Has been working with Hemotology on INR and currently takes 1mg warfarin daily. No plans to remove IVC filter at this time. h/o afib and currently in afib at 112-120 without CP.
--- NOTE | 2022-10-27 10:39 | ED_ITS ---
HPI - SOB/Dyspnea General Chief Complaint: Shortness of Breath/Dyspnea Stated Complaint: SOB Time Seen by Provider: 10/27/22 09:49 Source: patient and RN notes reviewed Mode of arrival: EMS Limitations: no limitations History of Present Illness HPI Narrative: This is a 72-year-old female history significant for recurrent DVT on Eliquis now on Coumadin and has IVC filter, CHF, prior pulmonary emboli in April 2021, lung disease on 5 L O2 nasal cannula at all times, sleep apnea, high hypothyroidism, adrenal insufficiency, diabetes, hypertension, dyslipidemia, fibromyalgia and GERD. Patient had recent hospitalization was discharged this SundayOctober 24 for Pseudomonas pneumonia on meropenem Q 8 hours. Patient has been state that she is been tired but getting around okay using a wheelchair she is been getting her meropenem regularly last dose was at 7:00 a.m. this morning noted her heart rates been a little bit fast and irregular last night and into today up to 120s, states her O2 sats have been 88-92% with exertion which is typical. He states she is been a little bit more fatigued and tired particularly in the last 12 hours. She felt warm at home temperature was 99? F orally. Patient finished her meropenem, went to the bedside commode had a large soft normal colored bowel movement and when they attempted to get back to the bed was very fatigued and tired trying to get back sort of slumped onto the bed and he had to call 911 for assistance. She does not appreciate increased shor tness of breath, she denies any pain. She states more tired they both note she seems little bit more sleepy and falls asleep a little bit easier but has been alert and oriented. No vomiting but some nausea. No diarrhea no black or bloody stools. and patient states legs are slightly swollen but improved from prior, there is some redness but no big changes. History also significant for elevated INR sometimes up to 9 patient had developed retroperitoneal hematoma was transferred to [place] on to had IVC filter placed at that time on August 16. She is been bridged on Lovenox back to her Coumadin and restarted Coumadin Sunday at 0.5 mg and then on Sunday had 1 mg tablets which she is been taking daily. INR today is 3.4. Patient's notes that she is currently on clonidine, Lasix, Coumadin, metoprolol and prednisone 5 mg daily for her chronic adrenal insufficiency. Related Data Home Medications Medication Instructions Recorded Confirmed polyethylene glycol 3350 17 17 gm PO DAILY PRN Constipation ##0 06/06/17 10/13/22 gram/dose oral powder (Miralax) albuterol sulfate 90 mcg/actuation 2 puff inhalation Q4-6H PRN 05/29/19 10/13/22 aerosol inhaler Shortness Of Breath cholecalciferol (vitamin D3) 50 2,000 unit PO DAILY 05/29/19 10/13/22 mcg (2,000 unit) tablet ferrous sulfate 325 mg (65 mg 325 mg PO BEDTIME 05/29/19 10/13/22 iron) tablet tizanidine 4 mg capsule 4 mg PO QID PRN Muscle Spasm 05/29/19 10/13/22 sodium chloride 3 % for 3 ml inhalation BID 06/05/19 10/13/22 nebulization cetirizine 10 mg capsule (Zyrtec) 10 mg PO DAILY allergies 01/20/20 10/13/22 montelukast 10 mg tablet 10 mg PO BEDTIME 01/20/20 10/13/22 (Singulair) atorvastatin 40 mg tablet 40 mg PO BEDTIME 04/20/21 10/13/22 epinephrine 0.3 mg/0.3 mL 0.3 mg IM Q5-15M PRN Allergic 04/20/21 10/13/22 injection, auto-injector (EpiPen) Reaction insulin glargine 100 unit/mL 30 unit SUBCUT QAM 04/20/21 10/13/22 subcutaneous solution insulin lispro 100 unit/mL 4 - 8 unit SUBCUT TID 04/20/21 10/13/22 subcutaneous pen (Humalog KwikPen (U-100) Insulin) ipratropium 0.5 mg-albuterol 3 mg 3 ml inhalation BID 04/20/21 10/13/22 (2.5 mg base)/3 mL nebulization soln levothyroxine 75 mcg tablet 75 mcg PO QAM 04/20/21 10/13/22 nortriptyline 25 mg capsule 25 mg PO BEDTIME 04/20/21 10/13/22 tiotropium bromide 18 mcg capsule 1 cap inhalation DAILY 04/20/21 10/13/22 with inhalation device (Spiriva with HandiHaler) lansoprazole 15 mg capsule,delayed 30 mg PO BID 04/29/21 10/13/22 release (Prevacid 24Hr) duloxetine 30 mg capsule,delayed 30 mg PO DAILY 06/28/21 10/13/22 release fluticasone 500 mcg-salmeterol 50 1 inh inhalation BID 06/28/21 10/13/22 mcg/dose blistr powdr for inhalation (Wixela Inhub) guaifenesin 1,200 mg tablet, 1,200 mg PO BID 06/28/21 10/13/22 extended release 12 hr (Mucinex) oxycodone-acetaminophen 10 mg-325 1 tab PO Q4H PRN Pain (Scale Score 06/28/21 10/13/22 mg tablet (Percocet) 4-6) pramipexole 0.5 mg tablet 0.5 mg PO BEDTIME 06/28/21 10/13/22 omega-3 fatty acids 1,000 mg PO DAILY 04/24/22 10/13/22 benralizumab 30 mg/mL subcutaneous 30 mg SUBCUT Q8W 06/03/22 10/13/22 syringe (Fasenra) [id number]-[id number]-bnshyykq 1 tab PO Q6H PRN Migraine Headache 06/03/22 10/13/22 50 mg-325 mg-40 mg tablet clonidine HCl 0.1 mg tablet 0.05 mg PO BID 06/03/22 10/13/22 oxycodone 5 mg capsule 15 mg PO Q6H PRN Pain (Scale Score 06/03/22 10/13/22 7-10) oxymetazoline 0.05 % nasal drops 1 drp intranasal BID PRN Congestion 06/03/22 10/13/22 prednisone 5 mg tablet 5 mg PO DAILY 06/03/22 10/13/22 Hizintra 15 g SUBCUT QWEEK 08/25/22 10/13/22 fluticasone 500 mcg-salmeterol 50 1 inh inhalation Q12H 08/25/22 10/13/22 mcg/dose blistr powdr for inhalation (Advair Diskus) fentanyl 12 mcg/hr transdermal 12 mcg transdermal SEEINSTR 10/13/22 10/13/22 patch warfarin 1 mg tablet 1 mg PO DAILY 10/13/22 10/13/22 furosemide 40 mg tablet 40 mg PO 0800 10/27/22 meropenem 2 IV Q8HR PNA 10/27/22 Previous Rx's Medication Instructions Recorded ondansetron HCl 4 mg tablet 4 mg PO Q8H PRN nausea and 10/06/19 (Zofran) vomiting #30 tabs verio reflect glucometer #1 ea 01/28/20 insulin syringe-needle U-100 0.5 #100 ea 03/30/20 mL 31 gauge x 5/16 (BD Insulin Syringe Ultra-Fine) metformin 1,000 mg tablet 1,000 mg PO BID #180 tabs 09/03/20 fentanyl 25 mcg/hr transdermal 1 patch transdermal Q72H PRN pain 02/05/22 patch (scale score 1-3) #5 ea aluminum-mag hydroxide-simethicone 30 ml PO Q6HR PRN Dyspepsia #355 mL 08/28/22 200 mg-200 mg-20 mg/5 mL oral susp (Mag-Al Plus) calcium carbonate 200 mg calcium 1,000 mg PO Q4HR PRN Dyspepsia #60 08/28/22 (500 mg) chewable tablet tabs docusate sodium 100 mg capsule 100 mg PO BID #60 caps 08/28/22 potassium chloride 20 mEq/15 mL 20 meq (15 mL) PO BIDWM #250 mL 08/28/22 oral liquid sennosides 8.6 mg tablet (senna) 17.2 mg PO BEDTIME #60 tabs 08/28/22 Allergies Allergy/AdvReac Type Severity Reaction Status Date / Time hydroxychloroquine Allergy Unknown Verified 09/14/22 14:35 [HYDROXYCHLOROQUINE] cefepime AdvReac Intermediate pruritis Verified 09/14/22 14:35 promethazine [From Phenergan] AdvReac Agitated Verified 10/13/22 14:35 Review of Systems Review of Systems ROS Unobtainable: All systems reviewed & are unremarkable except as noted in HPI and below Patient History Medical History Abnormal chest xray (~1979) Anemia Ankle pain Anticoagulated Asthma (~1959) Bronchiectasis (~2006) Cervical spine disease Chronic back pain Colon polyps (~2015) Degenerative joint disease of spine (~2001) Diabetes mellitus, type II (~2009) Eczema Fibromyalgia Foot pain Hoarseness Hyperlipidemia Hypertension Hypothyroidism Migraines (~1964) 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 Osteopenia Pneumonia Pneumonia Recurrent sinusitis (~1970) Restless leg syndrome Shoulder pain (~03/2018) Sleep apnea Wears glasses Surgical History Anesthesia History of carpal tunnel release History of cataract removal with insertion of prosthetic lens (~2014) History of section History of laminectomy (~2002) History of spinal fusion (~2012) History of thumb surgery Family History Father Stroke Mother Hypertension Brother Cerebral aneurysm Prostate cancer Diabetes mellitus Hypertension Stroke Brother Arthritis Hyperlipidemia Hypertension Sister History of kidney cancer Hypertension Grandfather Cancer Grandmother Cancer Other Family history non-contributory Social History marital status: household members: spouse lives independently: Yes occupational status: previously employed Smoking Status: Never smoker alcohol intake: current substance use type: does not use Smoking Status: Never smoker alcohol intake frequency: holidays/special occasions only Substance Use Type: does not use Exam Narrative Exam Narrative: GENERAL: Alert and oriented x three, obese female in mild distress. HEENT: Head normocephalic, atraumatic, EOMI, pupils reactive, face symmetric, moist mucous membranes, nasal cannula is in place NECK: Supple, full range of motion CARDIOVASCULAR: Occasional extra beat but overall Regular rate and rhythm wi thout murmurs, rubs or gallops. No JVD. Patient has edema bilateral lower extremities but improved from prior visits. Some slight erythema and hyperkeratotic skin changes anterior shins. RESPIRATORY: Breath sounds equal bilaterally, no wheezes rales or rhonchi. No tachypnea, no accessory muscle use. Patient's speaks normally but does fall asleep quickly. ABDOMEN: Soft, nontender. Normoactive bowel sounds all 4 quadrants. No guarding or rebound, rigidity, no mass : No CVA tenderness EXTREMITIES: Normal range of motion, no clubbing. Neurovascularly intact NEUROLOGICAL: Cranial nerves II through XII grossly intact. Moving all extremities SKIN: Warm, dry, no petechiae, no rashes or lesions otherwise noted. Initial Vital Signs Initial Vital Signs: Vital Signs Pulse Rate 112 H 10/27/22 09:29 Respiratory Rate 27 H 10/27/22 09:29 Pulse Oximetry 92 10/27/22 09:29 Oxygen Delivery Method Nasal Cannula 10/27/22 09:29 Oxygen Flow Rate 5 10/27/22 09:29 Course Orders Ordered: ED Orders 10/27/22 11:14 ABG [Arterial Blood Gas] Stat 10/27/22 11:32 UA Complete [Urinalysis and Microscopic] Stat Urine Culture Stat 10/27/22 11:48 Trop I [Troponin I] Stat 10/27/22 19:22 Sputum Culture Stat Clonidine HCl (Clonidine 0.1 Mg Tablet) 0.05 mg PO BID [facility] Last Admin: 10/27/22 14:18 Dose: 0.05 mg Documented By: CTS Duloxetine HCl (Duloxetine 30 Mg Capsule) 30 mg PO DAILY [facility] Last Admin: 10/27/22 14:19 Dose: 30 mg Documented By: CTS Meropenem 2 gm/ Sodium (Chloride) 100 mls @ 200 mls/hr IV Q8H [facility] Last Infusion: 10/27/22 14:39 Dose: 0 mls/hr Documented By: Admin: 10/27/22 14:05 Dose: 200 mls/hr Documented By: CTS Levothyroxine Sodium (Levothyroxine 75 Mcg Tablet) 75 mcg PO DAILY [facility] Last Admin: 10/27/22 14:20 Dose: 75 mcg Documented By: CTS Metformin HCl (Metformin Hcl 500 Mg Tablet) 1,000 mg PO BID [facility] Last Admin: 10/27/22 14:19 Dose: 1,000 mg Documented By: CTS Prednisone (Prednisone 20 Mg Tablet) 5 mg PO DAILY [facility] Last Admin: 10/27/22 14:18 Dose: 5 mg Documented By: CTS Tizanidine HCl (Tizanidine 4 Mg Tablet) 4 mg PO QID [facility] Last Admin: 10/27/22 18:23 Dose: Not Given Documented By: Admin: 10/27/22 14:05 Dose: Not Given Documented By: CTS Discontinued Medications Albuterol/Ipratropium (Albuterol/Ipratropium 3 Ml Ampul) 3 ml INH NOW ONE Stop: 10/27/22 17:51 Last Admin: 10/27/22 18:37 Dose: 3 ml Documented By: TIMUR Vital Signs Vital signs: Vital Signs - 8 hr 10/27/22 12:00 10/27/22 12:00 10/27/22 12:30 Pulse Rate 100 H 102 H Respiratory Rate 27 H 19 Blood Pressure 91/55 L Pulse Oximetry 99 98 Oxygen Delivery Method Nasal Cannula Nasal Cannula Oxygen Flow Rate 5 5 10/27/22 12:31 10/27/22 12:31 10/27/22 13:00 Pulse Rate 102 H Respiratory Rate 25 H Blood Pressure 123/56 L 118/54 L Pulse Oximetry 97 Oxygen Delivery Method Nasal Cannula Oxygen Flow Rate 5 10/27/22 13:00 10/27/22 13:30 10/27/22 13:30 Pulse Rate 101 H 100 H Respiratory Rate 23 17 Blood Pressure 111/55 L Pulse Oximetry 94 92 Oxygen Delivery Method Oxygen Flow Rate 10/27/22 14:00 10/27/22 14:01 10/27/22 14:01 Pulse Rate 101 H 103 H Respiratory Rate 38 H 39 H Blood Pressure 97/52 L Pulse Oximetry 92 92 Oxygen Delivery Method Oxygen Flow Rate 5 5 10/27/22 14:30 10/27/22 14:30 10/27/22 15:00 Pulse Rate 94 H 101 H Respiratory Rate 24 Blood Pressure 95/53 L Pulse Oximetry 94 Oxygen Delivery Method Oxygen Flow Rate 5 10/27/22 15:01 10/27/22 15:01 10/27/22 15:30 Pulse Rate 102 H 94 H Respiratory Rate 24 20 Blood Pressure 134/60 Pulse Oximetry 95 98 Oxygen Delivery Method Oxygen Flow Rate 5 5 10/27/22 15:31 10/27/22 15:31 10/27/22 16:00 Pulse Rate 95 H 99 H Respiratory Rate 18 17 Blood Pressure 106/60 Pulse Oximetry 98 98 Oxygen Delivery Method Oxygen Flow Rate 5 5 10/27/22 16:01 10/27/22 16:01 10/27/22 16:30 Pulse Rate 99 H Respiratory Rate 18 Blood Pressure 134/79 143/83 H Pulse Oximetry 98 Oxygen Delivery Method Oxygen Flow Rate 5 10/27/22 16:30 10/27/22 17:00 10/27/22 17:01 Pulse Rate 101 H 103 H 103 H Respiratory Rate 20 20 20 Blood Pressure Pulse Oximetry 97 92 92 Oxygen Delivery Method Oxygen Flow Rate 5 5 5 10/27/22 17:01 10/27/22 18:38 10/27/22 17:30 Pulse Rate 104 H Respiratory Rate 20 Blood Pressure 112/56 L 107/57 L Pulse Oximetry 93 Oxygen Delivery Method Nasal Cannula Oxygen Flow Rate 5 10/27/22 17:30 10/27/22 18:00 10/27/22 18:00 Pulse Rate 103 H 103 H Respiratory Rate 18 30 H Blood Pressure 112/55 L Pulse Oximetry 96 93 Oxygen Delivery Method Oxygen Flow Rate 5 5 10/27/22 18:30 10/27/22 18:30 Pulse Rate 103 H Respiratory Rate 22 Blood Pressure 128/57 L Pulse Oximetry 93 Oxygen Delivery Method Oxygen Flow Rate 5 MDM - SOB/Dyspnea Lab Data 10/27/22 09:43 10/27/22 09:43 Labs: Lab Results 10/27/22 10/27/22 10/27/22 Range/Units 09:43 09:43 09:43 WBC 14.5 H (4.5-11.0) X10^3/uL RBC 4.12 (4.0-5.2) X10^6/uL Hgb 11.2 L (12.0-16.0) g/dL Hct 34.2 L (36-46) % MCV 83.1 (80-100) fL MCH 27.2 (26-34) PG MCHC 32.7 (30-36) % RDW 18.6 H (11.6-14.8) % Plt Count 583 H (150-400) X10^3/uL Neut % (Auto) 86.9 H (50-75) % Lymph % (Auto) 5.9 L (25-40) % [place]ud[place]eth % (Auto) 6.8 (3-14) % Eos % (Auto) 0.1 L (2-4) % Baso % (Auto) 0.3 (0-2) % Neut # (Auto) 44856 H (7478-9548) /uL Lymph # (Auto) 900 L (6784-4466) /uL [place] # (Auto) 1000 H (0-900) /uL Eos # (Auto) 0 (0-450) /uL Baso # (Auto) 0 (0-100) /uL PT 39.6 H D (10.1-12.7) SECONDS INR 3.4 H (0.9-1.3) ABG pH (7.35-7.45) ABG pCO2 (35-45) mmHg ABG pO2 (80-100) mmHg ABG HCO3 (23-27) mmol/L ABG Total CO2 (23-27) mmol/L ABG O2 Saturation (95-100) % ABG Base Excess (-2-3) mmol/L FiO2 Sodium 132 L (137-145) mmol/L Potassium 3.6 (3.4-5.1) mmol/L Chloride 94 L (98-107) mmol/L Carbon Dioxide 32 (22-32) mmol/L BUN 16 (7-17) mg/dL Creatinine 0.83 (0.52-1.04) mg/dL Estimated GFR > 60 (>60) mL/min BUN/Creatinine Ratio 19.3 (6-22) Glucose 116 H (80-110) mg/dL Lactate (0.7-2.1) mmol/L Calcium 8.8 (8.4-10.2) mg/dL Total Bilirubin 0.5 (0.2-1.3) mg/dL AST 30 (14-36) IU/L ALT 17 (<35) IU/L Alkaline Phosphatase 104 (38-126) U/L Troponin I 0.045 H (0.01-0.034) ng/mL NT-Pro-B Natriuret Pep 2450 H (<125) pg/mL Total Protein 7.0 (6.3-8.2) g/dL Albumin 3.2 L (3.5-5.0) g/dL Globulin 3.8 (1.7-4.1) g/dL Albumin/Globulin Ratio 0.8 L (1.0-2.8) Procalcitonin (<0.5) ng/mL Urine Color Urine Appearance Urine pH (4.5-8.0) Ur Specific Ebony (1.000-1.035) Urine Protein (Negative) Urine Glucose (UA) (Negative) g/dL Urine Ketones (NEGATIVE) Urine Occult Blood (Negative) Urine Nitrate (Negative) Urine Bilirubin (NEGATIVE) Urine Urobilinogen (0.2) E.U./dL Ur Leukocyte Esterase (NEGATIVE) Urine RBC (0-5/HPF) Urine WBC (0-5/HPF) Ur Squamous Epith Cells (0-5/HPF) Calcium Oxalate Crystal Amorphous Sediment Urine Bacteria (None) Hyaline Casts (None) Granular Casts (None) Ur Culture Indicated? SARS-CoV-2 (PCR) (Negative) 10/27/22 10/27/22 10/27/22 Range/Units 09:43 09:43 09:45 WBC (4.5-11.0) X10^3/uL RBC (4.0-5.2) X10^6/uL Hgb (12.0-16.0) g/dL Hct (36-46) % MCV (80-100) fL MCH (26-34) PG MCHC (30-36) % RDW (11.6-14.8) % Plt Count (150-400) X10^3/uL Neut % (Auto) (50-75) % Lymph % (Auto) (25-40) % Hudspeth % (Auto) (3-14) % Eos % (Auto) (2-4) % Baso % (Auto) (0-2) % Neut # (Auto) (0157-9963) /uL Lymph # (Auto) (2027-9866) /uL [place]sp[place] # (Auto) (0-900) /uL Eos # (Auto) (0-450) /uL Baso # (Auto) (0-100) /uL PT (10.1-12.7) SECONDS INR (0.9-1.3) ABG pH (7.35-7.45) ABG pCO2 (35-45) mmHg ABG pO2 (80-100) mmHg ABG HCO3 (23-27) mmol/L ABG Total CO2 (23-27) mmol/L ABG O2 Saturation (95-100) % ABG Base Excess (-2-3) mmol/L FiO2 Sodium (137-145) mmol/L Potassium (3.4-5.1) mmol/L Chloride (98-107) mmol/L Carbon Dioxide (22-32) mmol/L BUN (7-17) mg/dL Creatinine (0.52-1.04) mg/dL Estimated GFR (>60) mL/min BUN/Creatinine Ratio (6-22) Glucose (80-110) mg/dL Lactate 2.0 (0.7-2.1) mmol/L Calcium (8.4-10.2) mg/dL Total Bilirubin (0.2-1.3) mg/dL AST (14-36) IU/L ALT (<35) IU/L Alkaline Phosphatase (38-126) U/L Troponin I (0.01-0.034) ng/mL NT-Pro-B Natriuret Pep (<125) pg/mL Total Protein (6.3-8.2) g/dL Albumin (3.5-5.0) g/dL Globulin (1.7-4.1) g/dL Albumin/Globulin Ratio (1.0-2.8) Procalcitonin 0.18 (<0.5) ng/mL Urine Color Urine Appearance Urine pH (4.5-8.0) Ur Specific Ebony (1.000-1.035) Urine Protein (Negative) Urine Glucose (UA) (Negative) g/dL Urine Ketones (NEGATIVE) Urine Occult Blood (Negative) Urine Nitrate (Negative) Urine Bilirubin (NEGATIVE) Urine Urobilinogen (0.2) E.U./dL Ur Leukocyte Esterase (NEGATIVE) Urine RBC (0-5/HPF) Urine WBC (0-5/HPF) Ur Squamous Epith Cells (0-5/HPF) Calcium Oxalate Crystal Amorphous Sediment Urine Bacteria (None) Hyaline Casts (None) Granular Casts (None) Ur Culture Indicated? SARS-CoV-2 (PCR) Negative (Negative) 10/27/22 10/27/22 10/27/22 Range/Units 11:14 11:32 11:48 WBC (4.5-11.0) X10^3/uL RBC (4.0-5.2) X10^6/uL Hgb (12.0-16.0) g/dL Hct (36-46) % MCV (80-100) fL MCH (26-34) PG MCHC (30-36) % RDW (11.6-14.8) % Plt Count (150-400) X10^3/uL Neut % (Auto) (50-75) % Lymph % (Auto) (25-40) % [place] % (Auto) (3-14) % Eos % (Auto) (2-4) % Baso % (Auto) (0-2) % Neut # (Auto) (3310-8743) /uL Lymph # (Auto) (7482-1217) /uL [place] # (Auto) (0-900) /uL Eos # (Auto) (0-450) /uL Baso # (Auto) (0-100) /uL PT (10.1-12.7) SECONDS INR (0.9-1.3) ABG pH 7.44 (7.35-7.45) ABG pCO2 48.6 H (35-45) mmHg ABG pO2 64 L (80-100) mmHg ABG HCO3 33 H (23-27) mmol/L ABG Total CO2 34 H (23-27) mmol/L ABG O2 Saturation 92 L (95-100) % ABG Base Excess 9.0 H (-2-3) mmol/L FiO2 40 Sodium (137-145) mmol/L Potassium (3.4-5.1) mmol/L Chloride (98-107) mmol/L Carbon Dioxide (22-32) mmol/L BUN (7-17) mg/dL Creatinine (0.52-1.04) mg/dL Estimated GFR (>60) mL/min BUN/Creatinine Ratio (6-22) Glucose (80-110) mg/dL Lactate (0.7-2.1) mmol/L Calcium (8.4-10.2) mg/dL Total Bilirubin (0.2-1.3) mg/dL AST (14-36) IU/L ALT (<35) IU/L Alkaline Phosphatase (38-126) U/L Troponin I 0.037 H (0.01-0.034) ng/mL NT-Pro-B Natriuret Pep (<125) pg/mL Total Protein (6.3-8.2) g/dL Albumin (3.5-5.0) g/dL Globulin (1.7-4.1) g/dL Albumin/Globulin Ratio (1.0-2.8) Procalcitonin (<0.5) ng/mL Urine Color Yellow Urine Appearance Clear Urine pH 5.5 (4.5-8.0) Ur Specific Ebony 1.025 (1.000-1.035) Urine Protein 3+ H (Negative) Urine Glucose (UA) Negative (Negative) g/dL Urine Ketones Trace H (NEGATIVE) Urine Occult Blood Negative (Negative) Urine Nitrate Negative (Negative) Urine Bilirubin Negative (NEGATIVE) Urine Urobilinogen 1.0 (0.2) E.U./dL Ur Leukocyte Esterase Negative (NEGATIVE) Urine RBC 0-1/hpf (0-5/HPF) Urine WBC 1-5/hpf (0-5/HPF) Ur Squamous Epith Cells None seen D (0-5/HPF) Calcium Oxalate Crystal Occasional H Amorphous Sediment 2+ Urine Bacteria Moderate (10-30) H (None) Hyaline Casts 0-1/lpf (None) Granular Casts 5-10/lpf (None) Ur Culture Indicated? Specimen cultured SARS-CoV-2 (PCR) (Negative) Imaging Data Chest x-ray: Radiologist's Impression: Close Chest CTA 10/27/22 Chest X-Ray (Signed) Aubree Bardales - 10/27/22 Telemetry Strips 10/13/22 Telemetry Strips 10/13/22 Telemetry Strips 10/13/22 Chest X-Ray (Signed) Ryan Rolle - 10/13/22 Echocardiogram Ultrasound (Signed) Mitchell Saldana - 08/26/22 Telemetry Strips 08/25/22 Chest CTA (Signed) Ivan Omer - 08/25/22 Abdomen/Pelvis CT (Signed) Ángel Naik - 08/25/22 Chest X-Ray (Signed) Tj Jones - 08/25/22 Abdomen/Pelvis CT (Signed) Yonis Arambula - 08/15/22 Chest CTA (Signed) Yonis Arambula - 08/15/22 Telemetry Strips 08/15/[address] (Signed) Aubree Bardales - 08/14/22 Vascular Ultrasound (Signed) Ivan Omer - 08/07/22 Telemetry Strips 06/30/22 Chest X-Ray (Signed) Ryan Rolle - 06/30/22 Chest X-Ray (Signed) Josr Silva - 06/06/22 Telemetry Strips 06/03/22 Telemetry Strips 06/03/22 Chest X-Ray (Signed) Josr Silva - 06/03/22 Telemetry Strips 04/24/22 Telemetry Strips 04/24/[address] (Signed) Josr Silva - 04/24/22 Chest X-Ray (Signed) Josr Silva - 04/24/22 Chest X-Ray (Signed) Aneesh Antonio - 02/08/22 Lumbar Spine MRI (Signed) Betsy Lundberg - 02/04/22 Thoracic Spine MRI (Signed) Tñoo,Betsy - 02/04/[address] (Signed) Yohannes Cueto - 11/10/21 Launch?Image [address] [address] XRay Report Signed Patient: Radha Zavaleta MR#: [id number] : 1950 Acct:[id number] Age/Sex: 72 / F Date of Service: 10/27/22 Loc: ED Accession Number: [id number] ?? Procedure: XR chest 1V Ordering Provider: Joanne Mckoy D.O. PROCEDURE:? XR CHEST 1V ? INDICATIONS:? Shortness of breath ? TECHNIQUE:? One view of the chest was acquired.? ? COMPARISON:? [facility], CT, CT ANGIO CHEST PE PROTOCOL, 08/25/2022, 16:06.? [facility], CR, XR CHEST 2 VIEWS, 09/20/2022, 10:36.? [facility], CR, XR CHEST 1V, 10/13/2022, 10:28. ? FINDINGS:? ? Surgical changes and devices:? None.? ? Lungs and pleura:? Mild interstitial infiltrates bilaterally.? No pleural effu sions or pneumothorax.? ? Mediastinum:? Mediastinal contours appear normal.? Heart size is mildly en larged.? ? Bones and chest wall:? No suspicious bony lesions.? Overlying soft tissues appear unremarkable.? ? IMPRESSION:? ? 1. Mild cardiomegaly and interstitial prominence suggesting mild CHF.? ? ? Dictated by: Aubree Bardales M.D. on 10/27/2022 at 10:20 ? ? Approved by: Aubree Bardales M.D. on 10/27/2022 at 10:21?? ECG Data Attestation: I personally reviewed and interpreted this ECG as follows: Prior ECG tracings: available for review Interpretation: Sinus tachycardia rate of 108 ND 132 QRS is 70 QTC 479. Patient does not appear to have occasional extra beats but has P waves with almost every single QRS. No acute ST elevation, some flattening lateral lead but no new depression or inversion. Patient's EKG overall appears similar to 09/16/2022. EKG 2. Sinus tachycardia rate of 104 ND 144 QRS is 70 QTC of 481. No acute ST elevation depression. MDM Narrative Medical decision making narrative: This is a medically fragile 72-year-old female with history of chronic lung disease, CHF as well as recurrent DVTs despite anticoagulation and a recent retroperitoneal hematoma when INR was significantly elevated. Patient's labs today show white count trending upwards since discharge for chief you have here stable platelets are 583. INR is 3.4 today. Renal function electrolytes overall appropriate. Lactate 2. Troponin is indeterminate at 0.045 being sent for 2nd troponin, BNP is 24 50 which is about mid way between patient's typical. Procalcitonin and blood cultures were also obtained. ABG was obtained as patient is little bit more sleepy than typical and has had CO2 retention in the past. Chest x-ray shows mild CHF pattern. Patient does have IVC filter in place she is appropriately anticoagulated today but has been very intermittent but with recent Pseudomonas pneumonia CT angio is felt appropriate. Shows pneumonia type pattern, no pulmonary emboli, reactive lymph node somewhat over the years but stable since August. Spoke with Dr. Nazario, hospitalist patient fairly stable CO2 slightly elevated she is been more fatigued, she is not having increasing O2 requirements today b ut does feel like she does not feel well and has high likelihood to decompensate. He would like us to chat with pulmonary infectious disease about possible transfer as she is never reportedly have a bronchoscopy or further workup for this aspect and has had recurrent pseudomonal pneumonia. Spoke with Dr. Dexter, pulmonary [facility] states would be willing to bronch patient felt appropriate by Infectious Disease early so likely being Sunday but is happy to consult with patient if requested. Spoke with Dr. Zhang., Infectious Disease. Feels could be appropriate for patient be transferred would recommend getting sputum sample before starting vancomycin, she will speak with her partner Dr. Vignesh Harrell who is on-call today. Reviewed patient's labs, prior cultures and felt would be appropriate to come to [facility] for evaluation by palm and infectious disease, possible bronchoscopy in the future. Spoke with hospitalist, Dr. Archibald at [facility] who accepts for transfer. Reviewed recommendations and discussion with Pulm and ID, workup. Patient Vancomycin held until sputum culture obtained. Did give 1 duoneb per patient request to help facilitate sputum production. Patient stable here in the department has had some occasional tachycardia has not been requiring increased O2. Patient had missed her morning medications receive these about 2:00 p.m. today, hold her warfarin will hold her p.m. clonidine dose as she had her a.m. dose only 4 hours before this. Transport set up for later this evening. Patient signed out to Dr. Najera while awaiting transport. Patient stable in department so far. Discharge Plan Departure Patient Disposition: Home Clinical Impression: Pneumonia due to Pseudomonas Prescriptions: No Action polyethylene glycol 3350 [Miralax] 119 GM powder 17 gm PO DAILY PRN (Reason: Constipation) Qty: 0 ondansetron HCl [Zofran] 4 mg tablet 4 mg PO Q8H PRN (Reason: nausea and vomiting) Qty: 30 1RF (DME) insulin syringe-needle U-100 [BD Insulin Syringe Ultra-Fine] 0.5 mL 31 gauge x 5/16 syringe See Rx Instructions .ROUTE .MEDSUPPLY Qty: 100 1RF Rx Instructions: Use once a day as directed metformin 1,000 mg tablet 1,000 mg PO BID Qty: 180 0RF (DME) verio reflect glucometer Qty: 1 0RF Rx Instructions: As directed ferrous sulfate 325 mg (65 mg iron) tablet 325 mg PO BEDTIME tizanidine 4 mg capsule 4 mg PO QID PRN (Reason: Muscle Spasm) cholecalciferol (vitamin D3) 2,000 unit tablet 2,000 unit PO DAILY albuterol sulfate 90 mcg/actuation HFA aerosol inhaler 2 puff INHALATION Q4-6H PRN (Reason: Shortness Of Breath) lansoprazole [Prevacid 24Hr] 15 mg Capsule,Delayed Release(Dr/Ec) 30 mg PO BID fentanyl 25 mcg/hr patch 72 hour 1 patch transdermal Q72H PRN (Reason: pain (scale score 1-3)) Qty: 5 0RF Patient Comments: placed today at home omega-3 fatty acids Capsule 1,000 mg PO DAILY fluticasone propion-salmeterol [Advair Diskus] 500-50 mcg/dose Blister With Device 1 inh INHALATION Q12H Hizintra 15 g auto-injector 15 g SUBCUT QWEEK calcium carbonate 200 mg calcium (500 mg) Tablet,Chewable 1,000 mg PO Q4HR PRN (Reason: Dyspepsia) Qty: 60 0RF docusate sodium 100 mg Capsule 100 mg PO BID Qty: 60 0RF alum-mag hydroxide-simeth [Mag-Al Plus] 200-200-20 mg/5 mL Suspension 30 ml PO Q6HR PRN (Reason: Dyspepsia) Qty: 355 0RF sennosides [senna] 8.6 mg Tablet 17.2 mg PO BEDTIME Qty: 60 0RF potassium chloride 20 mEq/15 mL Liquid 20 meq PO BIDWM Qty: 250 0RF sodium chloride 3 % Solution For Nebulization 3 ml INHALATION BID Rx Instructions: use w/ nebulizer 2 x daily montelukast [Singulair] 10 mg Tablet 10 mg PO BEDTIME Zyrtec 10 mg Capsule 10 mg PO DAILY atorvastatin 40 mg Tablet 40 mg PO BEDTIME ipratropium-albuterol 0.5 mg-3 mg(2.5 mg base)/3 mL Solution For Nebulization 3 ml INHALATION BID Rx Instructions: and every 4 hours as needed levothyroxine 75 mcg Tablet 75 mcg PO QAM nortriptyline 25 mg Capsule 25 mg PO BEDTIME epinephrine [EpiPen] 0.3 mg/0.3 mL Auto-Injector 0.3 mg IM Q5-15M PRN (Reason: Allergic Reaction) Rx Instructions: do not exceed 3 doses per episode Spiriva with HandiHaler 18 mcg Capsule, W/Inhalation Device 1 cap INHALATION DAILY Rx Instructions: puncture 1 cap using device; one dose = 2 inhalations insulin glargine 100 unit/mL solution 30 unit SUBCUT QAM insulin lispro [Humalog KwikPen Insulin] 100 unit/mL insulin pen 4 - 8 unit SUBCUT TID pramipexole 0.5 mg tablet 0.5 mg PO BEDTIME fluticasone propion-salmeterol [Wixela Inhub] 500-50 mcg/dose Blister With Device 1 inh INHALATION BID duloxetine 30 mg Capsule,Delayed Release(Dr/Ec) 30 mg PO DAILY oxycodone-acetaminophen [Percocet] 10-325 mg Tablet 1 tab PO Q4H PRN (Reason: Pain (Scale Score 4-6)) Mucinex 1,200 mg Tablet Extended Release 12hr 1,200 mg PO BID clonidine HCl 0.1 mg tablet 0.05 mg PO BID prednisone 5 mg tablet 5 mg PO DAILY [id number]-lggvtvlotfjub-[id number] 50-325-40 mg Tablet 1 tab PO Q6H PRN (Reason: Migraine Headache) oxycodone 5 mg Capsule 15 mg PO Q6H PRN (Reason: Pain (Scale Score 7-10)) oxymetazoline 0.05 % Drops 1 drp INTRANASAL BID PRN (Reason: Congestion) Fasenra 30 mg/mL Syringe 30 mg SUBCUT Q8W fentanyl 12 mcg/hr patch 72 hour 12 mcg transdermal SEEINSTR Patient Comments: apply 1 patch to CLEAN, DRY, AND INTACT SKIN every 72 hours Rx Instructions: Q72HR in addition to 25mcg patch warfarin 1 mg tablet 1 mg PO DAILY meropenem 2 gram 2 IV Q8HR Patient Comments: done with home infusions 10/28 furosemide 40 mg tablet 40 mg PO 0800 Referrals: Karin Porter MD [Primary Care Provider] - Stand Alone Forms: Patient Portal/API
[2022-10-27 11:15] LABS: Procalcitonin 0.18 ng/mL (<0.5)
[2022-10-27 11:24] LABS: HCO3 ABG 33 mmol/L (23-27); Oxygen Saturation ABG 92 % (95-100); PCO2 ABG 48.6 mmHg (35-45); PO2 ABG 64 mmHg (80-100); TCO2 ABG 34 mmol/L (23-27); pH ABG 7.44 (7.35-7.45)
[2022-10-27 11:25] LABS: Fractionated Inspired Oxygen 40
[2022-10-27 11:58] LABS: Appearance Urine UA CLEAR; Bilirubin Urine UA NEGATIVE (NEGATIVE); Color Urine UA YELLOW; Glucose Urine UA NEGATIVE (Negative); Ketones Urine UA TRACE (NEGATIVE); Leukocyte Esterase Urine UA NEGATIVE (NEGATIVE); Nitrite Urine UA NEGATIVE (Negative); Occult Blood Urine UA NEGATIVE (Negative); Protein Urine UA 3+ (Negative); Specific Gravity Urine UA 1.025 (1.000-1.035); pH Urine UA 5.5 (4.5-8.0)
--- NOTE | 2022-10-27 12:03 | PC.NURSE ---
noted to have converted into NSR at 98-101. EKG obtained
[2022-10-27 12:13] LABS: Bacteria Urine Moderate (10-30); Calcium Oxalate Crystals Urine Occasional; RBC Urine 0-1/HPF (0-5/HPF); Squamous Epithelial Cell Urine None Seen (0-5/HPF); WBC Urine 1-5/HPF (0-5/HPF)
[2022-10-27 12:14] LABS: Amorphous Sediment Urine 2+; Culture Indicated Urine Specimen Cultured; Granular Casts Urine 5-10/LPF; Hyaline Casts Urine 0-1/LPF
[2022-10-27 12:19] LABS: Troponin I 0.037 ng/mL (0.01-0.034)
[2022-10-27] MEDS: MEROPENEM 2 GM in SODIUM CHLORIDE 0.9% 100 ML IV ×2 (14:05→21:39)
[2022-10-27] MEDS: predniSONE 20 MG TABLET 5 MG PO (14:18)
[2022-10-27] MEDS: cloNIDine 0.1 MG TABLET 0.05 MG PO (14:18)
[2022-10-27] MEDS: METFORMIN HCL 500 MG TABLET 1000 MG PO (14:19)
[2022-10-27] MEDS: DULOXETINE 30 MG CAPSULE PO (14:19)
[2022-10-27] MEDS: LEVOTHYROXINE 75 MCG TABLET PO (14:20)
--- NOTE | 2022-10-27 14:40 | PC.NURSE ---
pure wick applied
[2022-10-27] MEDS: ALBUTEROL/IPRATROPIUM 3 ML AMPUL INH (18:37)
== END 2022-10-27 22:39 | disposition short-term general hospital (02) ==
PROVIDERS: Emergency Provider Emergency Medicine; Family Provider Internal Medicine Infectious Disease; PCP Internal Medicine
DX: J15.1 Pneumonia due to Pseudomonas (principal); Z79.01 Long term (current) use of anticoagulants; Z79.899 Other long term (current) drug therapy
CPT/HCPCS: 36415; 36600; 71045; 71275; 80053; 81001; 82805; 83605; 83880; 84145; 84484; 85025; 85610; 87040; 87070; 87077; 87086; 87205; 87635; 93005; 94640; 96365; 99285; C9803; J2185; J2405; Q9967

== ENCOUNTER 2022-10-30 22:35 | Emergency (ER) | payer OTHER, SELFPAY ==
[2022-06-07 07:30] VITALS: PULSE 84; RESP 20; O2SAT 99
[2022-10-13 14:55] VITALS: BMI 41.4
[2022-10-30 23:00] VITALS: BP 120/58; PULSE 85; RESP 18; TEMP 36.4; O2SAT 96; BMI 38.2
--- NOTE | 2022-10-31 04:36 | ED.RECABL ---
HPI - Recheck/Abnormal Lab/Rx General Chief Complaint: Recheck/Abnormal Lab/Rx Stated Complaint: MIDLINE IV PLUGGED Time Seen by Provider: 10/31/22 04:36 Source: patient and family Mode of arrival: Wheelchair History of Present Illness HPI narrative: 72-year-old young woman with recent Pseudomonas pneumonia currently receiving home IV infusion with meropenem q.8 hours. She has another week of therapy. She presents this evening with a midline IV left arm that is not working. Reportedly has been difficult and positional since being placed. Multiple attempts to try to adjust it tonight have been ineffective. She is due for her Mirapex him dose. She has no new complaints. Medical history is long and complex including recurrent DVTs IVC filters Coumadin use, congestive heart failure, prior pulmonary embolism, chronic lung disease on 5 L of oxygen at home, adrenal insufficiency, diabetes, hypertension, fibromyalgia, hypothyroidism. You to these issues are at their baseline today Related Data Home Medications Medication Instructions Recorded Confirmed polyethylene glycol 3350 17 17 gm PO DAILY PRN Constipation ##0 06/06/17 10/13/22 gram/dose oral powder (Miralax) albuterol sulfate 90 mcg/actuation 2 puff inhalation Q4-6H PRN 05/29/19 10/13/22 aerosol inhaler Shortness Of Breath cholecalciferol (vitamin D3) 50 2,000 unit PO DAILY 05/29/19 10/13/22 mcg (2,000 unit) tablet ferrous sulfate 325 mg (65 mg 325 mg PO BEDTIME 05/29/19 10/13/22 iron) tablet tizanidine 4 mg capsule 4 mg PO QID PRN Muscle Spasm 05/29/19 10/13/22 sodium chloride 3 % for 3 ml inhalation BID 06/05/19 10/13/22 nebulization cetirizine 10 mg capsule (Zyrtec) 10 mg PO DAILY allergies 01/20/20 10/13/22 montelukast 10 mg tablet 10 mg PO BEDTIME 01/20/20 10/13/22 (Singulair) atorvastatin 40 mg tablet 40 mg PO BEDTIME 04/20/21 10/13/22 epinephrine 0.3 mg/0.3 mL 0.3 mg IM Q5-15M PRN Allergic 04/20/21 10/13/22 injection, auto-injector (EpiPen) Reaction insulin glargine 100 unit/mL 30 unit SUBCUT QAM 04/20/21 10/13/22 subcutaneous solution insulin lispro 100 unit/mL 4 - 8 unit SUBCUT TID 04/20/21 10/13/22 subcutaneous pen (Humalog KwikPen (U-100) Insulin) ipratropium 0.5 mg-albuterol 3 mg 3 ml inhalation BID 04/20/21 10/13/22 (2.5 mg base)/3 mL nebulization soln levothyroxine 75 mcg tablet 75 mcg PO QAM 04/20/21 10/13/22 nortriptyline 25 mg capsule 25 mg PO BEDTIME 04/20/21 10/13/22 tiotropium bromide 18 mcg capsule 1 cap inhalation DAILY 04/20/21 10/13/22 with inhalation device (Spiriva with HandiHaler) lansoprazole 15 mg capsule,delayed 30 mg PO BID 04/29/21 10/13/22 release (Prevacid 24Hr) duloxetine 30 mg capsule,delayed 30 mg PO DAILY 06/28/21 10/13/22 release fluticasone 500 mcg-salmeterol 50 1 inh inhalation BID 06/28/21 10/13/22 mcg/dose blistr powdr for inhalation (Wixela Inhub) guaifenesin 1,200 mg tablet, 1,200 mg PO BID 06/28/21 10/13/22 extended release 12 hr (Mucinex) oxycodone-acetaminophen 10 mg-325 1 tab PO Q4H PRN Pain (Scale Score 06/28/21 10/13/22 mg tablet (Percocet) 4-6) pramipexole 0.5 mg tablet 0.5 mg PO BEDTIME 06/28/21 10/13/22 omega-3 fatty acids 1,000 mg PO DAILY 04/24/22 10/13/22 benralizumab 30 mg/mL subcutaneous 30 mg SUBCUT Q8W 06/03/22 10/13/22 syringe (Fasenra) pmrxqepggj-bwfgvwsaanxex-ymdgrxwl 1 tab PO Q6H PRN Migraine Headache 06/03/22 10/13/22 50 mg-325 mg-40 mg tablet clonidine HCl 0.1 mg tablet 0.05 mg PO BID 06/03/22 10/13/22 oxycodone 5 mg capsule 15 mg PO Q6H PRN Pain (Scale Score 06/03/22 10/13/22 7-10) oxymetazoline 0.05 % nasal drops 1 drp intranasal BID PRN Congestion 06/03/22 10/13/22 prednisone 5 mg tablet 5 mg PO DAILY 06/03/22 10/13/22 Hizintra 15 g SUBCUT QWEEK 08/25/22 10/13/22 fluticasone 500 mcg-salmeterol 50 1 inh inhalation Q12H 08/25/22 10/13/22 mcg/dose blistr powdr for inhalation (Advair Diskus) fentanyl 12 mcg/hr transdermal 12 mcg transdermal SEEINSTR 10/13/22 10/13/22 patch warfarin 1 mg tablet 1 mg PO DAILY 10/13/22 10/13/22 furosemide 40 mg tablet 40 mg PO 0800 10/27/22 meropenem 2 IV Q8HR PNA 10/27/22 Previous Rx's Medication Instructions Recorded ondansetron HCl 4 mg tablet 4 mg PO Q8H PRN nausea and 10/06/19 (Zofran) vomiting #30 tabs verio reflect glucometer #1 ea 01/28/20 insulin syringe-needle U-100 0.5 #100 ea 03/30/20 mL 31 gauge x 5/16 (BD Insulin Syringe Ultra-Fine) metformin 1,000 mg tablet 1,000 mg PO BID #180 tabs 09/03/20 fentanyl 25 mcg/hr transdermal 1 patch transdermal Q72H PRN pain 02/05/22 patch (scale score 1-3) #5 ea aluminum-mag hydroxide-simethicone 30 ml PO Q6HR PRN Dyspepsia #355 mL 08/28/22 200 mg-200 mg-20 mg/5 mL oral susp (Mag-Al Plus) calcium carbonate 200 mg calcium 1,000 mg PO Q4HR PRN Dyspepsia #60 08/28/22 (500 mg) chewable tablet tabs docusate sodium 100 mg capsule 100 mg PO BID #60 caps 08/28/22 potassium chloride 20 mEq/15 mL 20 meq (15 mL) PO BIDWM #250 mL 08/28/22 oral liquid sennosides 8.6 mg tablet (senna) 17.2 mg PO BEDTIME #60 tabs 08/28/22 Allergies Allergy/AdvReac Type Severity Reaction Status Date / Time hydroxychloroquine Allergy Unknown Verified 09/14/22 14:35 [HYDROXYCHLOROQUINE] cefepime AdvReac Intermediate pruritis Verified 09/14/22 14:35 promethazine [From Phenergan] AdvReac Agitated Verified 10/13/22 14:35 Review of Systems Review of Systems Narrative: Pertinent positive and negative findings as per HPI Patient History Medical History Abnormal chest xray (~1979) Anemia Ankle pain Anticoagulated Asthma (~1959) Bronchiectasis (~2006) Cervical spine disease Chronic back pain Colon polyps (~2015) Degenerative joint disease of spine (~2001) Diabetes mellitus, type II (~2009) Eczema Fibromyalgia Foot pain Hoarseness Hyperlipidemia Hypertension Hypothyroidism Migraines (~1964) 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 Osteopenia Pneumonia Pneumonia Recurrent sinusitis (~1970) Restless leg syndrome Shoulder pain (~03/2018) Sleep apnea Wears glasses Surgical History Anesthesia History of carpal tunnel release History of cataract removal with insertion of prosthetic lens (~2014) History of section History of laminectomy (~2002) History of spinal fusion (~2012) History of thumb surgery Family History Father Stroke Mother Hypertension Brother Cerebral aneurysm Prostate cancer Diabetes mellitus Hypertension Stroke Brother Arthritis Hyperlipidemia Hypertension Sister History of kidney cancer Hypertension Grandfather Cancer Grandmother Cancer Other Family history non-contributory Social History marital status: household members: spouse lives independently: Yes occupational status: previously employed Smoking Status: Never smoker alcohol intake: current substance use type: does not use Smoking Status: Never smoker alcohol intake frequency: holidays/special occasions only Substance Use Type: does not use Exam Initial Vital Signs Initial Vital Signs: Vital Signs Temperature 97.5 F L 10/30/22 23:00 Pulse Rate 85 10/30/22 23:00 Respiratory Rate 18 10/30/22 23:00 Blood Pressure 120/58 L 10/30/22 23:00 Pulse Oximetry 96 10/30/22 23:00 Oxygen Delivery Method Nasal Cannula 10/30/22 23:00 Oxygen Flow Rate 3 10/30/22 23:00 General: Alert appropriate in no acute distress Respiratory: Able to speak in full sentences, no obvious respiratory distress Skin: No obvious rashes, warm and dry Neurologic: Grossly intact no obvious asymmetries or abnormalities Psych: appropriate insight and affect, cooperative Extremity: Midline IV catheter left upper extremity is adjusted eventually removed and the entire length of the catheter is fully clotted. Course Vital Signs Vital signs: Vital Signs - 8 hr 10/31/22 06:05 Temperature 97.9 F Pulse Rate 69 Respiratory Rate 18 Blood Pressure 147/75 H Oxygen Delivery Method Room Air MDM - Recheck/Abnormal Lab/Rx MDM Narrative Medical decision making narrative: CC: Difficulty with IV catheter, acute problem uncertain prognosis Complicating co-morbidities: Extensive, please see HPI Data collected from: patient, Medical records reviewed: Recent ER note and discharge summary from the hospital on October 24 are reviewed Differential considered: Catheter dysfunction Exam documented above, pertinent findings include: Catheter is removed and is completely clotted. Catheter site is clean and dry otherwise Treatments: Peripheral IV is placed and her usual home dose of 2 mg of Mirapex item is infused. Discussion: 72-year-old woman with an additional week of q.8 hours meropenem IV dosing at home for Pseudomonas pneumonia. She needs a midline or PICC IV catheter placed to complete antibiotic course. Had her remain in the emergency department until IV nurse is available early this morning and will replace IV line. Patient is set up for all outpatient therapy including continued meropenem dosing and pharmacy refills of meropenem. She will be safe for discharge once the midline or PICC IV is placed. Discharge Plan Departure Patient Disposition: Home Clinical Impression: Pneumonia due to Pseudomonas, Displacement of peripheral intravenous catheter Activity Restrictions/Additional Instructions: Thank you for coming in today We have replaced your IV Please continue your meropenem as scheduled If you find that you are getting worse or develop any new symptoms, please feel free to return to the emergency department for further evaluation. Prescriptions: No Action polyethylene glycol 3350 [Miralax] 119 GM powder 17 gm PO DAILY PRN (Reason: Constipation) Qty: 0 ondansetron HCl [Zofran] 4 mg tablet 4 mg PO Q8H PRN (Reason: nausea and vomiting) Qty: 30 1RF (DME) insulin syringe-needle U-100 [BD Insulin Syringe Ultra-Fine] 0.5 mL 31 gauge x 5/16 syringe See Rx Instructions .ROUTE .MEDSUPPLY Qty: 100 1RF Rx Instructions: Use once a day as directed metformin 1,000 mg tablet 1,000 mg PO BID Qty: 180 0RF (DME) verio reflect glucometer Qty: 1 0RF Rx Instructions: As directed ferrous sulfate 325 mg (65 mg iron) tablet 325 mg PO BEDTIME tizanidine 4 mg capsule 4 mg PO QID PRN (Reason: Muscle Spasm) cholecalciferol (vitamin D3) 2,000 unit tablet 2,000 unit PO DAILY albuterol sulfate 90 mcg/actuation HFA aerosol inhaler 2 puff INHALATION Q4-6H PRN (Reason: Shortness Of Breath) lansoprazole [Prevacid 24Hr] 15 mg Capsule,Delayed Release(Dr/Ec) 30 mg PO BID fentanyl 25 mcg/hr patch 72 hour 1 patch transdermal Q72H PRN (Reason: pain (scale score 1-3)) Qty: 5 0RF Patient Comments: placed today at home omega-3 fatty acids Capsule 1,000 mg PO DAILY fluticasone propion-salmeterol [Advair Diskus] 500-50 mcg/dose Blister With Device 1 inh INHALATION Q12H Hizintra 15 g auto-injector 15 g SUBCUT QWEEK calcium carbonate 200 mg calcium (500 mg) Tablet,Chewable 1,000 mg PO Q4HR PRN (Reason: Dyspepsia) Qty: 60 0RF docusate sodium 100 mg Capsule 100 mg PO BID Qty: 60 0RF alum-mag hydroxide-simeth [Mag-Al Plus] 200-200-20 mg/5 mL Suspension 30 ml PO Q6HR PRN (Reason: Dyspepsia) Qty: 355 0RF sennosides [senna] 8.6 mg Tablet 17.2 mg PO BEDTIME Qty: 60 0RF potassium chloride 20 mEq/15 mL Liquid 20 meq PO BIDWM Qty: 250 0RF sodium chloride 3 % Solution For Nebulization 3 ml INHALATION BID Rx Instructions: use w/ nebulizer 2 x daily montelukast [Singulair] 10 mg Tablet 10 mg PO BEDTIME Zyrtec 10 mg Capsule 10 mg PO DAILY atorvastatin 40 mg Tablet 40 mg PO BEDTIME ipratropium-albuterol 0.5 mg-3 mg(2.5 mg base)/3 mL Solution For Nebulization 3 ml INHALATION BID Rx Instructions: and every 4 hours as needed levothyroxine 75 mcg Tablet 75 mcg PO QAM nortriptyline 25 mg Capsule 25 mg PO BEDTIME epinephrine [EpiPen] 0.3 mg/0.3 mL Auto-Injector 0.3 mg IM Q5-15M PRN (Reason: Allergic Reaction) Rx Instructions: do not exceed 3 doses per episode Spiriva with HandiHaler 18 mcg Capsule, W/Inhalation Device 1 cap INHALATION DAILY Rx Instructions: puncture 1 cap using device; one dose = 2 inhalations insulin glargine 100 unit/mL solution 30 unit SUBCUT QAM insulin lispro [Humalog KwikPen Insulin] 100 unit/mL insulin pen 4 - 8 unit SUBCUT TID pramipexole 0.5 mg tablet 0.5 mg PO BEDTIME fluticasone propion-salmeterol [Wixela Inhub] 500-50 mcg/dose Blister With Device 1 inh INHALATION BID duloxetine 30 mg Capsule,Delayed Release(Dr/Ec) 30 mg PO DAILY oxycodone-acetaminophen [Percocet] 10-325 mg Tablet 1 tab PO Q4H PRN (Reason: Pain (Scale Score 4-6)) Mucinex 1,200 mg Tablet Extended Release 12hr 1,200 mg PO BID clonidine HCl 0.1 mg tablet 0.05 mg PO BID prednisone 5 mg tablet 5 mg PO DAILY qziawtfzmg-wubennrqxulvx-xlkq 50-325-40 mg Tablet 1 tab PO Q6H PRN (Reason: Migraine Headache) oxycodone 5 mg Capsule 15 mg PO Q6H PRN (Reason: Pain (Scale Score 7-10)) oxymetazoline 0.05 % Drops 1 drp INTRANASAL BID PRN (Reason: Congestion) Fasenra 30 mg/mL Syringe 30 mg SUBCUT Q8W fentanyl 12 mcg/hr patch 72 hour 12 mcg transdermal SEEINSTR Patient Comments: apply 1 patch to CLEAN, DRY, AND INTACT SKIN every 72 hours Rx Instructions: Q72HR in addition to 25mcg patch warfarin 1 mg tablet 1 mg PO DAILY meropenem 2 gram 2 IV Q8HR Patient Comments: done with home infusions 7/15 furosemide 40 mg tablet 40 mg PO 0800 Referrals: Karin Porter MD [Primary Care Provider] - Stand Alone Forms: Patient Portal/API
[2022-10-31 06:05] VITALS: BP 147/75; PULSE 69; RESP 18; TEMP 36.6
--- NOTE | 2022-10-31 07:42 | PC.NURSE ---
No inhouse DI nurse to place midlines today. [facility] contacted to come place midline. Company will call back with an ETA
[2022-10-31 08:45] VITALS: BP 150/66; PULSE 79; RESP 18; O2SAT 97
[2022-10-31 08:55] VITALS: PULSE 75; O2SAT 95
[2022-10-31 09:08] LABS: INR 2.5 (0.9-1.3); Prothrombin Time 29.2 SECONDS (10.1-12.7)
[2022-10-31 11:32] VITALS: O2SAT 91
[2022-10-31 11:33] VITALS: BP 146/70; PULSE 95; RESP 16; O2SAT 93
== END 2022-10-31 11:56 | disposition home or self-care (01) ==
PROVIDERS: Emergency Medicine; Emergency Provider Emergency Medicine; Family Provider Internal Medicine Infectious Disease; PCP Internal Medicine
DX: J15.1 Pneumonia due to Pseudomonas (principal); T82.528A Displacement of other cardiac and vascular devices and implants, initial encounter
CPT/HCPCS: 36415; 85610; 99283; 99284

== ENCOUNTER → 2022-11-09 12:57 | Outpatient (CLI) | payer OTHER, SELFPAY ==
[2022-06-07 07:30] VITALS: PULSE 84; RESP 20; O2SAT 99
[2022-10-13 14:55] VITALS: BMI 41.4
[2022-11-09 13:58] LABS: Appearance Urine UA CLEAR; Bilirubin Urine UA NEGATIVE (NEGATIVE); Color Urine UA YELLOW; Glucose Urine UA NEGATIVE (Negative); Ketones Urine UA NEGATIVE (NEGATIVE); Leukocyte Esterase Urine UA NEGATIVE (NEGATIVE); Nitrite Urine UA NEGATIVE (Negative); Occult Blood Urine UA NEGATIVE (Negative); Protein Urine UA 2+ (Negative)
[2022-11-09 14:00] LABS: pH Urine UA 7.5 (4.5-8.0)
[2022-11-09 14:07] LABS: Bacteria Urine Occasional (0-1); RBC Urine 0-1/HPF (0-5/HPF); Squamous Epithelial Cell Urine 5-10 /HPF (0-5/HPF); WBC Urine 0-1/HPF (0-5/HPF)
[2022-11-09 14:08] LABS: Culture Indicated Urine Cult Not Indicated; Granular Casts Urine 1-5/LPF
== END ==
PROVIDERS: Family Provider Internal Medicine Infectious Disease; PCP Internal Medicine; Referring Provider Internal Medicine Infectious Disease; Visit Provider Internal Medicine Infectious Disease
DX: N30.00 Acute cystitis without hematuria (principal)
CPT/HCPCS: 81001

== ENCOUNTER 2022-12-06 08:48 | Emergency (ER) | payer OTHER, SELFPAY ==
[2022-06-07 07:30] VITALS: PULSE 84; RESP 20; O2SAT 99
[2022-10-13 14:55] VITALS: BMI 41.4
[2022-12-06] VITALS (60 sets, daily range): BP systolic 90–184; BP diastolic 53–98; PULSE 97–113; RESP 24–40; TEMP 30–38.8; O2SAT 84–97; BMI 36.3
--- NOTE | 2022-12-06 08:55 | DI.RAD.S_ITS ---
PROCEDURE: XR CHEST 1V INDICATIONS: SOB, hypoxia, recent admit for pneumonia TECHNIQUE: One view of the chest was acquired. COMPARISON: [facility], CT, CT CHEST WITH CONTRAST, 11/16/2022, 10:55. [facility], CR, XR CHEST 1V, 10/27/2022, 10:02. FINDINGS: Surgical changes and devices: None. Lungs and pleura: Recent dense left basilar atelectasis versus consolidation has significantly improved, with patchy atelectasis remaining. However, there is increased right basilar atelectasis versus consolidation. There is a small right pleural effusion. Mediastinum: Mediastinal contours appear normal. Heart size is normal. Bones and chest wall: No suspicious bony lesions. Overlying soft tissues appear unremarkable. IMPRESSION: 1. Significant improvement in left basilar atelectasis versus consolidation, with patchy atelectasis remaining. 2. Worsening of process in the right lung base, consistent with worsening atelectasis versus consolidation. There is a small associated pleural effusion. Comment: Progress films are recommended until clear. Dictated by: Ryan Rolle M.D. on 12/06/2022 at 10:37 Approved by: Ryan Rolle M.D. on 12/06/2022 at 10:39
--- NOTE | 2022-12-06 08:56 | ED_ITS ---
HPI - General Adult General Chief complaint: Shortness of Breath/Dyspnea Stated complaint: SOB Time Seen by Provider: 12/06/22 08:53 History of Present Illness HPI narrative: 72-year-old female nonsmoker with recent hospitalization for pneumonia, history of CHF, chronic respiratory failure on 5 L home oxygen, diabetes, hypothyroid, GERD presents by EMS for evaluation of worsening shortness of breath over the past 2 days. She states that she was discharged from [facility] about 1 week ago and been doing relatively well but over the past 2 days has had increasing work of breathing, on arrival EMS found her tachypneic, hypoxemic in the low 80s on 8 L with heart rate in the 130s. She was put on CPAP which had significant impact and she was doing much better on arrival. Records requested. She denies chest pain or abdominal pain. Related Data Home Medications Medication Instructions Recorded Confirmed polyethylene glycol 3350 17 17 gm PO DAILY PRN Constipation ##0 06/06/17 10/13/22 gram/dose oral powder (Miralax) albuterol sulfate 90 mcg/actuation 2 puff inhalation Q4-6H PRN 05/29/19 10/13/22 aerosol inhaler Shortness Of Breath cholecalciferol (vitamin D3) 50 2,000 unit PO DAILY 05/29/19 10/13/22 mcg (2,000 unit) tablet ferrous sulfate 325 mg (65 mg 325 mg PO BEDTIME 05/29/19 10/13/22 iron) tablet tizanidine 4 mg capsule 4 mg PO QID PRN Muscle Spasm 05/29/19 10/13/22 sodium chloride 3 % for 3 ml inhalation BID 06/05/19 10/13/22 nebulization cetirizine 10 mg capsule (Zyrtec) 10 mg PO DAILY allergies 01/20/20 10/13/22 montelukast 10 mg tablet 10 mg PO BEDTIME 01/20/20 10/13/22 (Singulair) atorvastatin 40 mg tablet 40 mg PO BEDTIME 04/20/21 10/13/22 epinephrine 0.3 mg/0.3 mL 0.3 mg IM Q5-15M PRN Allergic 04/20/21 10/13/22 injection, auto-injector (EpiPen) Reaction insulin glargine 100 unit/mL 30 unit SUBCUT QAM 04/20/21 10/13/22 subcutaneous solution insulin lispro 100 unit/mL 4 - 8 unit SUBCUT TID 04/20/21 10/13/22 subcutaneous pen (Humalog KwikPen (U-100) Insulin) ipratropium 0.5 mg-albuterol 3 mg 3 ml inhalation BID 04/20/21 10/13/22 (2.5 mg base)/3 mL nebulization soln levothyroxine 75 mcg tablet 75 mcg PO QAM 04/20/21 10/13/22 nortriptyline 25 mg capsule 25 mg PO BEDTIME 04/20/21 10/13/22 tiotropium bromide 18 mcg capsule 1 cap inhalation DAILY 04/20/21 10/13/22 with inhalation device (Spiriva with HandiHaler) lansoprazole 15 mg capsule,delayed 30 mg PO BID 04/29/21 10/13/22 release (Prevacid 24Hr) duloxetine 30 mg capsule,delayed 30 mg PO DAILY 06/28/21 10/13/22 release fluticasone 500 mcg-salmeterol 50 1 inh inhalation BID 06/28/21 10/13/22 mcg/dose blistr powdr for inhalation (Wixela Inhub) guaifenesin 1,200 mg tablet, 1,200 mg PO BID 06/28/21 10/13/22 extended release 12 hr (Mucinex) oxycodone-acetaminophen 10 mg-325 1 tab PO Q4H PRN Pain (Scale Score 06/28/21 10/13/22 mg tablet (Percocet) 4-6) pramipexole 0.5 mg tablet 0.5 mg PO BEDTIME 06/28/21 10/13/22 omega-3 fatty acids 1,000 mg PO DAILY 04/24/22 10/13/22 benralizumab 30 mg/mL subcutaneous 30 mg SUBCUT Q8W 06/03/22 10/13/22 syringe (Fasenra) bqujqsbhdx-ecgipigyxvrbv-cgueqcge 1 tab PO Q6H PRN Migraine Headache 06/03/22 10/13/22 50 mg-325 mg-40 mg tablet clonidine HCl 0.1 mg tablet 0.05 mg PO BID 06/03/22 10/13/22 oxycodone 5 mg capsule 15 mg PO Q6H PRN Pain (Scale Score 06/03/22 10/13/22 7-10) oxymetazoline 0.05 % nasal drops 1 drp intranasal BID PRN Congestion 06/03/22 10/13/22 prednisone 5 mg tablet 5 mg PO DAILY 06/03/22 10/13/22 Hizintra 15 g SUBCUT QWEEK 08/25/22 10/13/22 fluticasone 500 mcg-salmeterol 50 1 inh inhalation Q12H 08/25/22 10/13/22 mcg/dose blistr powdr for inhalation (Advair Diskus) fentanyl 12 mcg/hr transdermal 12 mcg transdermal SEEINSTR 10/13/22 10/13/22 patch warfarin 1 mg tablet 1 mg PO DAILY 10/13/22 10/13/22 furosemide 40 mg tablet 40 mg PO 0800 10/27/22 meropenem 2 IV Q8HR PNA 10/27/22 Previous Rx's Medication Instructions Recorded ondansetron HCl 4 mg tablet 4 mg PO Q8H PRN nausea and 10/06/19 (Zofran) vomiting #30 tabs verio reflect glucometer #1 ea 01/28/20 insulin syringe-needle U-100 0.5 #100 ea 03/30/20 mL 31 gauge x 5/16 (BD Insulin Syringe Ultra-Fine) metformin 1,000 mg tablet 1,000 mg PO BID #180 tabs 09/03/20 fentanyl 25 mcg/hr transdermal 1 patch transdermal Q72H PRN pain 02/05/22 patch (scale score 1-3) #5 ea aluminum-mag hydroxide-simethicone 30 ml PO Q6HR PRN Dyspepsia #355 mL 08/28/22 200 mg-200 mg-20 mg/5 mL oral susp (Mag-Al Plus) calcium carbonate 200 mg calcium 1,000 mg PO Q4HR PRN Dyspepsia #60 08/28/22 (500 mg) chewable tablet tabs docusate sodium 100 mg capsule 100 mg PO BID #60 caps 08/28/22 potassium chloride 20 mEq/15 mL 20 meq (15 mL) PO BIDWM #250 mL 08/28/22 oral liquid sennosides 8.6 mg tablet (senna) 17.2 mg PO BEDTIME #60 tabs 08/28/22 Allergies Allergy/AdvReac Type Severity Reaction Status Date / Time hydroxychloroquine Allergy Unknown Verified 09/14/22 14:35 [HYDROXYCHLOROQUINE] cefepime AdvReac Intermediate pruritis Verified 09/14/22 14:35 promethazine [From Phenergan] AdvReac Agitated Verified 10/13/22 14:35 Review of Systems Review of Systems Narrative: GENERAL: See HPI HEENT: Denies sinus pain, ear pain, sore throat, difficulty swallowing, dizziness. RESPIRATORY: See HPI CARDIOVASCULAR: See HPI GASTROINTESTINAL: Denies nausea, vomiting, abdominal pain, diarrhea, constipation, melena. : Denies dysuria, frequency, incontinence, hematuria, urinary retention. MUSCULOSKELETAL: denies weakness, joint pain, or bony pain SKIN: Denies rash, skin lesions, or other NEUROLOGIC: Denies weakness, headache, numbness, change in speech, confusion, seizures, incoordination. PSYCHIATRIC: No concerning psychosocial issues. 12 point review of systems is negative except for those stated above Patient History Medical History Abnormal chest xray (~1979) Anemia Ankle pain Anticoagulated Asthma (~1959) Bronchiectasis (~2006) Cervical spine disease Chronic back pain Colon polyps (~2015) Degenerative joint disease of spine (~2001) Diabetes mellitus, type II (~2009) Eczema Fibromyalgia Foot pain Hoarseness Hyperlipidemia Hypertension Hypothyroidism Migraines (~1964) 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 Osteopenia Pneumonia Pneumonia Recurrent sinusitis (~1970) Restless leg syndrome Shoulder pain (~03/2018) Sleep apnea Wears glasses Surgical History Anesthesia History of carpal tunnel release History of cataract removal with insertion of prosthetic lens (~2014) History of section History of laminectomy (~2002) History of spinal fusion (~2012) History of thumb surgery Family History Father Stroke Mother Hypertension Brother Cerebral aneurysm Prostate cancer Diabetes mellitus Hypertension Stroke Brother Arthritis Hyperlipidemia Hypertension Sister History of kidney cancer Hypertension Grandfather Cancer Grandmother Cancer Other Family history non-contributory Social History marital status: household members: spouse lives independently: Yes occupational status: previously employed Smoking Status: Never smoker alcohol intake: current substance use type: does not use Smoking Status: Never smoker alcohol intake frequency: holidays/special occasions only Substance Use Type: does not use Exam Narrative Exam Narrative: GENERAL: [72] year old patient appears stated age. Well-developed patient, in moderate distress, on noninvasive positive pressure ventilation HEAD: Atraumatic. Normocephalic. EYES: Pupils equal round and reactive. Extraocular motions intact. No scleral icterus. No injection or drainage. ENT: Nose without bleeding, purulent drainage. Throat without erythema, tonsillar hypertrophy or exudate. Airway patent. NECK: Trachea midline. Non tender CARDIOVASCULAR: Tachycardic but regular rhythm without murmurs, gallops, or rubs. RESPIRATORY: Decreased breath sounds throughout with prolonged expiratory phase, increased work of breathing, use of accessory muscles, rhonchorous in all [place] GASTROINTESTINAL: Abdomen soft, non-tender, nondistended. EXTREMITIES: No edema or joint tenderness. BACK: Nontender without deformity or crepitance. No flank tenderness. NEURO: AOx3. SKIN: No rash or erythema of visible areas Initial Vital Signs Initial Vital Signs: Vital Signs Temperature 102 F H 12/06/22 08:51 Pulse Rate 110 H 12/06/22 08:51 Respiratory Rate 40 H 12/06/22 08:51 Blood Pressure 184/98 H 12/06/22 08:51 Pulse Oximetry 84 L 12/06/22 08:51 Oxygen Delivery Method Nasal Cannula 12/06/22 08:51 Oxygen Flow Rate 8 12/06/22 08:51 Course Orders Ordered: ED Orders 12/06/22 08:51 Complete Blood Count AUTO DIFF Stat Lactate (Lactic Acid) Stat Procalcitonin Stat Prothrombin Time INR Stat 12/06/22 08:55 Chest [XR chest 1V] Stat 12/06/22 09:22 Arterial Blood Gas Stat 12/06/22 09:35 Blood Culture Stat Comprehensive Metabolic Panel Stat Lipase Stat Magnesium Stat NT-proBNP (BNP-Adult 18+) Stat Troponin & CK Cardiac Panel Stat 12/06/22 09:43 EKG-12 Lead Stat 12/06/22 09:51 BiPAP Ventilatory Support RT PROTOCOL 12/06/22 10:36 ABG [Arterial Blood Gas] Urgent 12/06/22 13:44 Urinalysis and Microscopic Stat 12/06/22 13:51 High flow/High humidity nasal NOW 12/06/22 14:21 Respiratory Panel (Film Array) Stat Discontinued Medications Furosemide (Furosemide 40 Mg/4 Ml Vial) 40 mg IV NOW ONE Stop: 12/06/22 10:15 Last Admin: 12/06/22 10:34 Dose: 40 mg Documented By: RB Azithromycin 500 mg/ Dextrose 250 mls @ 250 mls/hr IV NOW ONE Stop: 12/06/22 10:05 Last Infusion: 12/06/22 11:53 Dose: 0 mls/hr Documented By: Admin: 12/06/22 10:39 Dose: 250 mls/hr Documented By: RB Piperacillin Sod/Tazobactam (Sod 4.5 gm/ Sodium Chloride) 100 mls @ 200 mls/hr IV NOW ONE Stop: 12/06/22 10:05 Last Infusion: 12/06/22 11:03 Dose: 0 mls/hr Documented By: Admin: 12/06/22 10:28 Dose: 200 mls/hr Documented By: RB Sodium Chloride (Normal Saline 0.9%) 1,641 mls @ 547 mls/hr 30 ml/kg infuse over 3 hr (1641 ml) IV NOW ONE Stop: 12/06/22 13:03 Last Infusion: 12/06/22 14:50 Dose: 0 mls/hr Documented By: Infusion: 12/06/22 13:46 Dose: 547 mls/hr Documented By: Infusion: 12/06/22 12:30 Dose: 0 mls/hr Documented By: Admin: 12/06/22 10:19 Dose: 547 mls/hr Documented By: RB Acetaminophen (Ofirmev) 1,000 mg in 100 mls @ 400 mls/hr IV NOW ONE Stop: 12/06/22 11:19 Last Infusion: 12/06/22 11:53 Dose: 0 mls/hr Documented By: Admin: 12/06/22 11:12 Dose: 400 mls/hr Documented By: RB Reevaluation(s) Reevaluation #1: Patient holding steady on BiPAP 12/5 at 55%. Will trial on HFNC. Patient doing w ell after 30 minutes, SpO2 93% Vital Signs Vital signs: Vital Signs - 8 hr 12/06/22 08:51 12/06/22 09:02 12/06/22 08:57 Temperature 102 F H 99.3 F Pulse Rate 110 H 113 H Respiratory Rate 40 H 33 H Blood Pressure 184/98 H Pulse Oximetry 84 L 96 Oxygen Delivery Method Nasal Cannula BiPAP Oxygen Flow Rate 8 Fraction of Inspired Oxygen 12/06/22 09:00 12/06/22 09:00 12/06/22 09:05 Temperature Pulse Rate 110 H 109 H Respiratory Rate 35 H 34 H Blood Pressure 152/71 H Pulse Oximetry 92 92 Oxygen Delivery Method BiPAP Oxygen Flow Rate 50 Fraction of Inspired Oxygen 12/06/22 09:10 12/06/22 09:13 12/06/22 09:13 Temperature Pulse Rate 109 H 109 H Respiratory Rate 32 H 24 Blood Pressure 142/61 H Pulse Oximetry 93 93 Oxygen Delivery Method Oxygen Flow Rate 50 50 Fraction of Inspired Oxygen 12/06/22 09:15 12/06/22 09:20 12/06/22 09:25 Temperature Pulse Rate 109 H 109 H 110 H Respiratory Rate 33 H 32 H 32 H Blood Pressure Pulse Oximetry 93 91 92 Oxygen Delivery Method Oxygen Flow Rate 50 50 50 Fraction of Inspired Oxygen 12/06/22 09:30 12/06/22 09:30 12/06/22 09:35 Temperature Pulse Rate 109 H Respiratory Rate 29 H Blood Pressure 151/67 H 142/65 H Pulse Oximetry 92 Oxygen Delivery Method Oxygen Flow Rate Fraction of Inspired Oxygen 12/06/22 09:35 12/06/22 09:40 12/06/22 09:40 Temperature Pulse Rate 109 H 109 H Respiratory Rate 33 H 36 H Blood Pressure 137/69 Pulse Oximetry 91 91 Oxygen Delivery Method Oxygen Flow Rate Fraction of Inspired Oxygen 12/06/22 09:00 12/06/22 09:56 12/06/22 09:45 Temperature 100.8 F H Pulse Rate Respiratory Rate Blood Pressure 137/69 139/73 Pulse Oximetry Oxygen Delivery Method Oxygen Flow Rate Fraction of Inspired Oxygen 50 12/06/22 09:45 12/06/22 09:50 12/06/22 09:50 Temperature Pulse Rate 108 H 110 H Respiratory Rate 32 H 34 H Blood Pressure 137/77 Pulse Oximetry 92 93 Oxygen Delivery Method Oxygen Flow Rate Fraction of Inspired Oxygen 12/06/22 09:55 12/06/22 09:55 12/06/22 10:00 Temperature Pulse Rate 107 H 105 H Respiratory Rate 31 H 27 H Blood Pressure 147/75 H Pulse Oximetry 94 95 Oxygen Delivery Method Oxygen Flow Rate Fraction of Inspired Oxygen 12/06/22 10:01 12/06/22 10:01 12/06/22 10:05 Temperature Pulse Rate 108 H Respiratory Rate 36 H Blood Pressure 126/59 L 153/72 H Pulse Oximetry 94 Oxygen Delivery Method Oxygen Flow Rate Fraction of Inspired Oxygen 12/06/22 10:05 12/06/22 11:10 12/06/22 11:11 Temperature 100.8 F H Pulse Rate 110 H Respiratory Rate 33 H Blood Pressure 134/73 Pulse Oximetry 93 Oxygen Delivery Method Oxygen Flow Rate Fraction of Inspired Oxygen 55 12/06/22 10:10 12/06/22 10:10 12/06/22 10:15 Temperature Pulse Rate 107 H Respiratory Rate 32 H Blood Pressure 145/67 H 138/65 Pulse Oximetry 95 Oxygen Delivery Method Oxygen Flow Rate Fraction of Inspired Oxygen 12/06/22 10:15 12/06/22 10:20 12/06/22 10:20 Temperature Pulse Rate 104 H 105 H Respiratory Rate 28 H 30 H Blood Pressure 136/75 Pulse Oximetry 97 95 Oxygen Delivery Method Oxygen Flow Rate Fraction of Inspired Oxygen 12/06/22 10:25 12/06/22 10:25 12/06/22 10:30 Temperature Pulse Rate 103 H 103 H Respiratory Rate 27 H 28 H Blood Pressure 134/73 Pulse Oximetry 96 96 Oxygen Delivery Method Oxygen Flow Rate Fraction of Inspired Oxygen 12/06/22 10:35 12/06/22 10:40 12/06/22 10:45 Temperature Pulse Rate 103 H 104 H 105 H Respiratory Rate 29 H 30 H 32 H Blood Pressure Pulse Oximetry 97 96 97 Oxygen Delivery Method Oxygen Flow Rate Fraction of Inspired Oxygen 12/06/22 10:50 12/06/22 10:55 12/06/22 11:00 Temperature Pulse Rate 105 H 105 H 105 H Respiratory Rate 32 H 33 H 33 H Blood Pressure Pulse Oximetry 96 96 97 Oxygen Delivery Method Oxygen Flow Rate Fraction of Inspired Oxygen 12/06/22 11:05 12/06/22 11:10 12/06/22 11:15 Temperature Pulse Rate 106 H 105 H 104 H Respiratory Rate 36 H 32 H 32 H Blood Pressure Pulse Oximetry 95 94 95 Oxygen Delivery Method Oxygen Flow Rate Fraction of Inspired Oxygen 12/06/22 11:18 12/06/22 11:18 12/06/22 11:30 Temperature Pulse Rate 104 H Respiratory Rate 34 H Blood Pressure 128/60 111/55 L Pulse Oximetry 94 Oxygen Delivery Method Oxygen Flow Rate Fraction of Inspired Oxygen 12/06/22 11:30 12/06/22 11:45 12/06/22 11:45 Temperature Pulse Rate 101 H 101 H Respiratory Rate 30 H 26 H Blood Pressure 113/64 Pulse Oximetry 92 96 Oxygen Delivery Method Oxygen Flow Rate Fraction of Inspired Oxygen 12/06/22 12:00 12/06/22 12:00 12/06/22 12:15 Temperature Pulse Rate 99 H Respiratory Rate 30 H Blood Pressure 104/53 L 90/53 L Pulse Oximetry 95 Oxygen Delivery Method Oxygen Flow Rate Fraction of Inspired Oxygen 12/06/22 12:15 12/06/22 12:21 12/06/22 12:21 Temperature Pulse Rate 97 H 102 H Respiratory Rate 28 H 25 H Blood Pressure 101/54 L Pulse Oximetry 94 96 Oxygen Delivery Method Oxygen Flow Rate Fraction of Inspired Oxygen 12/06/22 12:30 12/06/22 12:30 12/06/22 12:45 Temperature Pulse Rate 99 H Respiratory Rate 27 H Blood Pressure 110/53 L 108/56 L Pulse Oximetry 96 Oxygen Delivery Method Oxygen Flow Rate Fraction of Inspired Oxygen 12/06/22 12:45 12/06/22 13:00 12/06/22 13:00 Temperature Pulse Rate 100 H 98 H Respiratory Rate 35 H 30 H Blood Pressure 113/54 L Pulse Oximetry 96 96 Oxygen Delivery Method Oxygen Flow Rate Fraction of Inspired Oxygen 12/06/22 13:15 12/06/22 13:15 12/06/22 13:30 Temperature Pulse Rate 98 H Respiratory Rate 28 H Blood Pressure 102/55 L 112/57 L Pulse Oximetry 95 Oxygen Delivery Method Oxygen Flow Rate Fraction of Inspired Oxygen 12/06/22 13:30 12/06/22 13:45 12/06/22 13:45 Temperature Pulse Rate 97 H 97 H Respiratory Rate 28 H 33 H Blood Pressure 106/54 L Pulse Oximetry 95 96 Oxygen Delivery Method BiPAP Oxygen Flow Rate Fraction of Inspired Oxygen 12/06/22 14:00 12/06/22 14:00 12/06/22 14:15 Temperature Pulse Rate 100 H Respiratory Rate 30 H Blood Pressure 118/57 L 114/57 L Pulse Oximetry 89 L Oxygen Delivery Method High Flow Nasal Cannula Oxygen Flow Rate 40 Fraction of Inspired Oxygen 12/06/22 14:15 12/06/22 13:55 12/06/22 14:30 Temperature Pulse Rate 100 H 97 H Respiratory Rate 30 H 28 H Blood Pressure 112/57 L 106/53 L Pulse Oximetry 90 L 95 Oxygen Delivery Method High Flow Nasal Cannula Oxygen Flow Rate 40 Fraction of Inspired Oxygen 12/06/22 14:30 12/06/22 14:45 12/06/22 14:45 Temperature Pulse Rate 98 H 99 H Respiratory Rate 28 H 29 H Blood Pressure 112/58 L Pulse Oximetry 90 L 90 L Oxygen Delivery Method High Flow Nasal Cannula Oxygen Flow Rate 40 40 Fraction of Inspired Oxygen Medical Decision Making Lab Data 12/06/22 08:51 12/06/22 09:35 Labs: Lab Results 12/06/22 12/06/22 12/06/22 Range/Units 08:51 08:51 08:51 WBC 18.6 H (4.5-11.0) X10^3/uL RBC 4.26 (4.0-5.2) X10^6/uL Hgb 11.6 L (12.0-16.0) g/dL Hct 35.0 L (36-46) % MCV 82.0 (80-100) fL MCH 27.2 (26-34) PG MCHC 33.2 (30-36) % RDW 18.8 H (11.6-14.8) % Plt Count 568 H (150-400) X10^3/uL Neut % (Auto) Not Reportable Lymph % (Auto) Not Reportable [place] % (Auto) Not Reportable Eos % (Auto) Not Reportable Baso % (Auto) Not Reportable Lymph # (Auto) Not Reportable [place] # (Auto) Not Reportable Baso # (Auto) Not Reportable Total Counted 100 Seg Neutrophils % 80.0 H (38-70) % Band Neutrophils % 9.0 H (3-7) % Lymphocytes % (Manual) 7.0 L (25-45) % Monocytes % (Manual) 4.0 (2-11) % Neutrophils # (Manual) 77274 H (3747-9554) /uL RBC Morphology See below Poikilocytosis 1+ H Anisocytosis 1+ H PT 17.3 H (10.1-12.7) SECONDS INR 1.5 H (0.9-1.3) ABG pH (7.35-7.45) ABG pCO2 (35-45) mmHg ABG pO2 (80-100) mmHg ABG HCO3 (23-27) mmol/L ABG Total CO2 (23-27) mmol/L ABG O2 Saturation (95-100) % ABG Base Excess (-2-3) mmol/L FiO2 Sodium (137-145) mmol/L Potassium (3.4-5.1) mmol/L Chloride (98-107) mmol/L Carbon Dioxide (22-32) mmol/L BUN (7-17) mg/dL Creatinine (0.52-1.04) mg/dL Estimated GFR (>60) mL/min BUN/Creatinine Ratio (6-22) Glucose (80-110) mg/dL Lactate 1.8 (0.7-2.1) mmol/L Calcium (8.4-10.2) mg/dL Magnesium (1.6-2.3) mg/dL Total Bilirubin (0.2-1.3) mg/dL AST (14-36) IU/L ALT (<35) IU/L Alkaline Phosphatase (38-126) U/L Total Creatine Kinase (30-135) U/L Troponin I (0.01-0.034) ng/mL NT-Pro-B Natriuret Pep (<125) pg/mL Total Protein (6.3-8.2) g/dL Albumin (3.5-5.0) g/dL Globulin (1.7-4.1) g/dL Albumin/Globulin Ratio (1.0-2.8) Lipase (23-300) U/L Procalcitonin (<0.5) ng/mL Urine Color Urine Appearance Urine pH (4.5-8.0) Ur Specific [place] (1.000-1.035) Urine Protein (Negative) Urine Glucose (UA) (Negative) g/dL Urine Ketones (NEGATIVE) Urine Occult Blood (Negative) Urine Nitrate (Negative) Urine Bilirubin (NEGATIVE) Urine Urobilinogen (0.2) E.U./dL Ur Leukocyte Esterase (NEGATIVE) Urine RBC (0-5/HPF) Urine WBC (0-5/HPF) Ur Squamous Epith Cells (0-5/HPF) Ur Transition Epith Cell (0-5/HPF) Urine Bacteria (None) Ur Culture Indicated? 12/06/22 12/06/22 12/06/22 Range/Units 08:51 09:22 09:35 WBC (4.5-11.0) X10^3/uL RBC (4.0-5.2) X10^6/uL Hgb (12.0-16.0) g/dL Hct (36-46) % MCV (80-100) fL MCH (26-34) PG MCHC (30-36) % RDW (11.6-14.8) % Plt Count (150-400) X10^3/uL Neut % (Auto) Lymph % (Auto) [place] % (Auto) Eos % (Auto) Baso % (Auto) Lymph # (Auto) [place] # (Auto) Baso # (Auto) Total Counted Seg Neutrophils % (38-70) % Band Neutrophils % (3-7) % Lymphocytes % (Manual) (25-45) % Monocytes % (Manual) (2-11) % Neutrophils # (Manual) (4433-2533) /uL RBC Morphology Poikilocytosis Anisocytosis PT (10.1-12.7) SECONDS INR (0.9-1.3) ABG pH 7.48 H (7.35-7.45) ABG pCO2 40.9 (35-45) mmHg ABG pO2 64 L (80-100) mmHg ABG HCO3 30 H (23-27) mmol/L ABG Total CO2 32 H (23-27) mmol/L ABG O2 Saturation 93 L (95-100) % ABG Base Excess 7.0 H (-2-3) mmol/L FiO2 50 Sodium 136 L (137-145) mmol/L Potassium 3.9 (3.4-5.1) mmol/L Chloride 100 (98-107) mmol/L Carbon Dioxide 28 (22-32) mmol/L BUN 16 (7-17) mg/dL Creatinine 0.63 (0.52-1.04) mg/dL Estimated GFR > 60 (>60) mL/min BUN/Creatinine Ratio 25.4 H (6-22) Glucose 122 H (80-110) mg/dL Lactate (0.7-2.1) mmol/L Calcium 9.3 (8.4-10.2) mg/dL Magnesium 1.6 (1.6-2.3) mg/dL Total Bilirubin 0.4 (0.2-1.3) mg/dL AST 25 (14-36) IU/L ALT 19 (<35) IU/L Alkaline Phosphatase 78 (38-126) U/L Total Creatine Kinase 27 L (30-135) U/L Troponin I 0.016 (0.01-0.034) ng/mL NT-Pro-B Natriuret Pep 4740 H (<125) pg/mL Total Protein 7.9 (6.3-8.2) g/dL Albumin 3.8 (3.5-5.0) g/dL Globulin 4.1 (1.7-4.1) g/dL Albumin/Globulin Ratio 0.9 L (1.0-2.8) Lipase 63 (23-300) U/L Procalcitonin 0.10 (<0.5) ng/mL Urine Color Urine Appearance Urine pH (4.5-8.0) Ur Specific [place] (1.000-1.035) Urine Protein (Negative) Urine Glucose (UA) (Negative) g/dL Urine Ketones (NEGATIVE) Urine Occult Blood (Negative) Urine Nitrate (Negative) Urine Bilirubin (NEGATIVE) Urine Urobilinogen (0.2) E.U./dL Ur Leukocyte Esterase (NEGATIVE) Urine RBC (0-5/HPF) Urine WBC (0-5/HPF) Ur Squamous Epith Cells (0-5/HPF) Ur Transition Epith Cell (0-5/HPF) Urine Bacteria (None) Ur Culture Indicated? 12/06/22 12/06/22 Range/Units 10:36 13:44 WBC (4.5-11.0) X10^3/uL RBC (4.0-5.2) X10^6/uL Hgb (12.0-16.0) g/dL Hct (36-46) % MCV (80-100) fL MCH (26-34) PG MCHC (30-36) % RDW (11.6-14.8) % Plt Count (150-400) X10^3/uL Neut % (Auto) Lymph % (Auto) [place] % (Auto) Eos % (Auto) Baso % (Auto) Lymph # (Auto) [place] # (Auto) Baso # (Auto) Total Counted Seg Neutrophils % (38-70) % Band Neutrophils % (3-7) % Lymphocytes % (Manual) (25-45) % Monocytes % (Manual) (2-11) % Neutrophils # (Manual) (5041-3033) /uL RBC Morphology Poikilocytosis Anisocytosis PT (10.1-12.7) SECONDS INR (0.9-1.3) ABG pH 7.43 (7.35-7.45) ABG pCO2 42.7 (35-45) mmHg ABG pO2 61 L (80-100) mmHg ABG HCO3 29 H (23-27) mmol/L ABG Total CO2 30 H (23-27) mmol/L ABG O2 Saturation 91 L (95-100) % ABG Base Excess 4.0 H (-2-3) mmol/L FiO2 55 Sodium (137-145) mmol/L Potassium (3.4-5.1) mmol/L Chloride (98-107) mmol/L Carbon Dioxide (22-32) mmol/L BUN (7-17) mg/dL Creatinine (0.52-1.04) mg/dL Estimated GFR (>60) mL/min BUN/Creatinine Ratio (6-22) Glucose (80-110) mg/dL Lactate (0.7-2.1) mmol/L Calcium (8.4-10.2) mg/dL Magnesium (1.6-2.3) mg/dL Total Bilirubin (0.2-1.3) mg/dL AST (14-36) IU/L ALT (<35) IU/L Alkaline Phosphatase (38-126) U/L Total Creatine Kinase (30-135) U/L Troponin I (0.01-0.034) ng/mL NT-Pro-B Natriuret Pep (<125) pg/mL Total Protein (6.3-8.2) g/dL Albumin (3.5-5.0) g/dL Globulin (1.7-4.1) g/dL Albumin/Globulin Ratio (1.0-2.8) Lipase (23-300) U/L Procalcitonin (<0.5) ng/mL Urine Color Yellow Urine Appearance Clear Urine pH 6.5 (4.5-8.0) Ur Specific [place] 1.020 (1.000-1.035) Urine Protein 1+ H (Negative) Urine Glucose (UA) Negative (Negative) g/dL Urine Ketones Negative (NEGATIVE) Urine Occult Blood Negative (Negative) Urine Nitrate Negative (Negative) Urine Bilirubin Negative (NEGATIVE) Urine Urobilinogen 0.2 (0.2) E.U./dL Ur Leukocyte Esterase Negative (NEGATIVE) Urine RBC None seen (0-5/HPF) Urine WBC 0-1/hpf (0-5/HPF) Ur Squamous Epith Cells 1-5 /hpf (0-5/HPF) Ur Transition Epith Cell 0-1/hpf (0-5/HPF) Urine Bacteria None seen (None) Ur Culture Indicated? Cult not indicated Point of Care Testing Glucose POC 126 Point of care testing: Point of Care Testing Glucose POC 126 MDM Narrative Medical decision making narrative: CC: 72-year-old female with shortness of breath Complicating co-morbidities: Age, recent hospitalization for pneumonia, chronic respiratory failure, CVID Data collected from: Patient Medical records reviewed: Prior notes reviewed in our EMR Differential considered, but not limited to: Pneumonia versus CHF versus COPD exacerbation versus other Exam documented above, pertinent findings include: Tachycardic but regular, increased work of breathing, rhonchorous in all [place], use of accessory muscles Lab Test results independently reviewed as above. Pertinent findings: Independently reviewed EKG as above Imaging studies independently reviewed: Scores Used: MIPS Elements: Consultations: 1134 - discussed with Dr. Nance 1331 - discussed with Dr. Dubois ([facility]) hospitalist, will place on list 1343 - discussed with Dr. Goldstein ([facility] hospitalist. Happy to accept. Bed available Treatments: see above Re-evaluations: patient holding steady on HFNC Discussion: 72-year-old female presents with increasing work of breathing with fever and increased oxygen requirements. She had been discharged from a local facility about 2 weeks ago with pneumonia, sputum culture noted Pseudomonas, she had 1 week of Levaquin and was doing well until the past day or 2. She is n ormally on 5 L by nasal cannula at home and had been increasing from 6, to 8 and then to 10 L. EMS found her in extreme respiratory distress and put her on BiPAP and transported her here. Sepsis protocol initiated, patient given fluids and antibiotics to cover nosocomial infection including Zosyn and azithromycin. She is diuresed given some evidence of acute CHF as well. Discussed with our local hospitalist who states that patient will need to be transferred given need for higher level of care including pulmonary and possible infectious disease. Yael rubio happy to accept, transport contacted. Patient and family understand and agree with the diagnosis and plan Critical Care Time Critical Care Time Critical Care Time: Yes Total Critical Care Time: 45 Attestation: The high probability of a clinically significant, sudden or life threatening deterioration of the [CV] system(s) required my full and direct attention, intervention and personal management. The aggregate critical care time was [45] minutes. This time is in addition to time spent performing reported procedures but includes the following: [x] Data Review and interpretation [x] Patient assessment and monitoring of vital signs [x] Documentation [x] Medication orders and management Discharge Plan Departure Patient Disposition: [facility] Clinical Impression: Acute hypoxemic respiratory failure, Multifocal pneumonia Prescriptions: No Action polyethylene glycol 3350 [Miralax] 119 GM powder 17 gm PO DAILY PRN (Reason: Constipation) Qty: 0 ondansetron HCl [Zofran] 4 mg tablet 4 mg PO Q8H PRN (Reason: nausea and vomiting) Qty: 30 1RF (DME) insulin syringe-needle U-100 [BD Insulin Syringe Ultra-Fine] 0.5 mL 31 gauge x 5/16 syringe See Rx Instructions .ROUTE .MEDSUPPLY Qty: 100 1RF Rx Instructions: Use once a day as directed metformin 1,000 mg tablet 1,000 mg PO BID Qty: 180 0RF (DME) verio reflect glucometer Qty: 1 0RF Rx Instructions: As directed ferrous sulfate 325 mg (65 mg iron) tablet 325 mg PO BEDTIME tizanidine 4 mg capsule 4 mg PO QID PRN (Reason: Muscle Spasm) cholecalciferol (vitamin D3) 2,000 unit tablet 2,000 unit PO DAILY albuterol sulfate 90 mcg/actuation HFA aerosol inhaler 2 puff INHALATION Q4-6H PRN (Reason: Shortness Of Breath) lansoprazole [Prevacid 24Hr] 15 mg Capsule,Delayed Release(Dr/Ec) 30 mg PO BID fentanyl 25 mcg/hr patch 72 hour 1 patch transdermal Q72H PRN (Reason: pain (scale score 1-3)) Qty: 5 0RF Patient Comments: placed today at home omega-3 fatty acids Capsule 1,000 mg PO DAILY fluticasone propion-salmeterol [Advair Diskus] 500-50 mcg/dose Blister With Device 1 inh INHALATION Q12H Hizintra 15 g auto-injector 15 g SUBCUT QWEEK calcium carbonate 200 mg calcium (500 mg) Tablet,Chewable 1,000 mg PO Q4HR PRN (Reason: Dyspepsia) Qty: 60 0RF docusate sodium 100 mg Capsule 100 mg PO BID Qty: 60 0RF alum-mag hydroxide-simeth [Mag-Al Plus] 200-200-20 mg/5 mL Suspension 30 ml PO Q6HR PRN (Reason: Dyspepsia) Qty: 355 0RF sennosides [senna] 8.6 mg Tablet 17.2 mg PO BEDTIME Qty: 60 0RF potassium chloride 20 mEq/15 mL Liquid 20 meq PO BIDWM Qty: 250 0RF sodium chloride 3 % Solution For Nebulization 3 ml INHALATION BID Rx Instructions: use w/ nebulizer 2 x daily montelukast [Singulair] 10 mg Tablet 10 mg PO BEDTIME Zyrtec 10 mg Capsule 10 mg PO DAILY atorvastatin 40 mg Tablet 40 mg PO BEDTIME ipratropium-albuterol 0.5 mg-3 mg(2.5 mg base)/3 mL Solution For Nebulization 3 ml INHALATION BID Rx Instructions: and every 4 hours as needed levothyroxine 75 mcg Tablet 75 mcg PO QAM nortriptyline 25 mg Capsule 25 mg PO BEDTIME epinephrine [EpiPen] 0.3 mg/0.3 mL Auto-Injector 0.3 mg IM Q5-15M PRN (Reason: Allergic Reaction) Rx Instructions: do not exceed 3 doses per episode Spiriva with HandiHaler 18 mcg Capsule, W/Inhalation Device 1 cap INHALATION DAILY Rx Instructions: puncture 1 cap using device; one dose = 2 inhalations insulin glargine 100 unit/mL solution 30 unit SUBCUT QAM insulin lispro [Humalog KwikPen Insulin] 100 unit/mL insulin pen 4 - 8 unit SUBCUT TID pramipexole 0.5 mg tablet 0.5 mg PO BEDTIME fluticasone propion-salmeterol [Wixela Inhub] 500-50 mcg/dose Blister With Device 1 inh INHALATION BID duloxetine 30 mg Capsule,Delayed Release(Dr/Ec) 30 mg PO DAILY oxycodone-acetaminophen [Percocet] 10-325 mg Tablet 1 tab PO Q4H PRN (Reason: Pain (Scale Score 4-6)) Mucinex 1,200 mg Tablet Extended Release 12hr 1,200 mg PO BID clonidine HCl 0.1 mg tablet 0.05 mg PO BID prednisone 5 mg tablet 5 mg PO DAILY hxzkjzmhvk-knffdfdqxmnnz-hzoe 50-325-40 mg Tablet 1 tab PO Q6H PRN (Reason: Migraine Headache) oxycodone 5 mg Capsule 15 mg PO Q6H PRN (Reason: Pain (Scale Score 7-10)) oxymetazoline 0.05 % Drops 1 drp INTRANASAL BID PRN (Reason: Congestion) Fasenra 30 mg/mL Syringe 30 mg SUBCUT Q8W fentanyl 12 mcg/hr patch 72 hour 12 mcg transdermal SEEINSTR Patient Comments: apply 1 patch to CLEAN, DRY, AND INTACT SKIN every 72 hours Rx Instructions: Q72HR in addition to 25mcg patch warfarin 1 mg tablet 1 mg PO DAILY meropenem 2 gram 2 IV Q8HR Patient Comments: done with home infusions 10/28 furosemide 40 mg tablet 40 mg PO 0800 Referrals: Karin Porter MD [Primary Care Provider] -
--- NOTE | 2022-12-06 08:57 | PC.NURSE ---
Recent inpt at [facility] for PNA DC 11/25 with abx. Found by EMS today after 2 days SOB, 84% on 8L on home O2, rhonchous all [place], arrives on CPAP w/ 7.5PEEP 93%. 20G LAC. Transitioned to BiPap I:E 03/20 RR 12 O2 50%. Appears to be tolerating well. Currently 94%. Febrile 102 temporal.
[2022-12-06 09:13] LABS: INR 1.5 (0.9-1.3); Prothrombin Time 17.3 SECONDS (10.1-12.7)
[2022-12-06 09:19] LABS: Lactate (Lactic Acid) 1.8 mmol/L (0.7-2.1)
[2022-12-06 09:26] LABS: Hemoglobin 11.6 g/dL (12.0-16.0); Mean Corpuscular HGB Conc 33.2 % (30-36); Mean Corpuscular Hemoglobin 27.2 PG (26-34); Platelet Count 568 X10^3/uL (150-400); Red Blood Cell Count 4.26 X10^6/uL (4.0-5.2); Red Cell Distribution Width 18.8 % (11.6-14.8); White Blood Cell Count 18.6 X10^3/uL (4.5-11.0)
[2022-12-06 09:28] LABS: Add Manual Diff / Slide Review YES
[2022-12-06 09:40] LABS: Fractionated Inspired Oxygen 50; HCO3 ABG 30 mmol/L (23-27); Oxygen Saturation ABG 93 % (95-100); PCO2 ABG 40.9 mmHg (35-45); PO2 ABG 64 mmHg (80-100); TCO2 ABG 32 mmol/L (23-27); pH ABG 7.48 (7.35-7.45)
[2022-12-06 09:49] LABS: Neutrophils Absolute Manual 16554 /uL (3000-5900); Total Cells Counted 100
[2022-12-06 09:50] LABS: Anisocytosis 1+
[2022-12-06 09:51] LABS: Poikilocytosis 1+
[2022-12-06 10:10] LABS: Alanine Aminotransferase 19 IU/L (<35); Albumin 3.8 g/dL (3.5-5.0); Albumin Globulin Ratio 0.9 (1.0-2.8); Alkaline Phosphatase 78 U/L (38-126); Aspartate Aminotransferase 25 IU/L (14-36); BUN Creatinine Ratio 25.4 (6-22); Bilirubin Total 0.4 mg/dL (0.2-1.3); Blood Urea Nitrogen 16 mg/dL (7-17); Calcium 9.3 mg/dL (8.4-10.2); Carbon Dioxide 28 mmol/L (22-32); Chloride 100 mmol/L (98-107); Creatine Kinase 27 U/L (30-135); Estimated Glomerular Filt Rate > 60 mL/min (>60); Globulin 4.1 g/dL (1.7-4.1); Glucose 122 mg/dL (80-110); HEMOLYSIS < 15 (0-50); Lipase 63 U/L (23-300); Magnesium 1.6 mg/dL (1.6-2.3); Potassium 3.9 mmol/L (3.4-5.1); Sodium 136 mmol/L (137-145); Total Protein 7.9 g/dL (6.3-8.2)
[2022-12-06 10:11] LABS: NT-proBNP (BNP-Adult 18+) 4740 pg/mL (<125); Troponin I 0.016 ng/mL (0.01-0.034)
--- NOTE | 2022-12-06 10:11 | PC.NURSE ---
This RN asked provider if he wanted patient it have sellers or a purewick. Provider responded purewick. Purewick placed with licensed psychologist manager SDrayton.
[2022-12-06] MEDS: SODIUM CHLORIDE 0.9% 1,641 ML 547 ML IV (10:19)
[2022-12-06] MEDS: PIPERACILLIN/TAZO 4.5 GM in SODIUM CHLORIDE 0.9% 100 ML IV (10:28)
[2022-12-06] MEDS: FUROSEMIDE 40 MG/4 ML VIAL IV (10:34)
[2022-12-06] MEDS: AZITHROMYCIN 500 MG in DEXTROSE 5% IN WATER 250 ML 250 MG IV (10:39)
[2022-12-06] MEDS: ACETAMINOPHEN IV 1,000 MG/100 ML VIAL 400 MG IV (11:12)
[2022-12-06 11:22] LABS: Fractionated Inspired Oxygen 55; HCO3 ABG 29 mmol/L (23-27); Oxygen Saturation ABG 91 % (95-100); PCO2 ABG 42.7 mmHg (35-45); PO2 ABG 61 mmHg (80-100); TCO2 ABG 30 mmol/L (23-27); pH ABG 7.43 (7.35-7.45)
[2022-12-06 13:51] LABS: Appearance Urine UA CLEAR; Bilirubin Urine UA NEGATIVE (NEGATIVE); Color Urine UA YELLOW; Glucose Urine UA NEGATIVE (Negative); Ketones Urine UA NEGATIVE (NEGATIVE); Leukocyte Esterase Urine UA NEGATIVE (NEGATIVE); Nitrite Urine UA NEGATIVE (Negative); Occult Blood Urine UA NEGATIVE (Negative); Protein Urine UA 1+ (Negative); Urobilinogen Urine UA 0.2 E.U./dL (0.2)
[2022-12-06 14:01] LABS: Bacteria Urine None Seen; RBC Urine None Seen (0-5/HPF); Squamous Epithelial Cell Urine 1-5 /HPF (0-5/HPF); Transitional Epi Cells Urine 0-1/HPF (0-5/HPF); WBC Urine 0-1/HPF (0-5/HPF); pH Urine UA 6.5 (4.5-8.0)
[2022-12-06 14:02] LABS: Culture Indicated Urine Cult Not Indicated
[2022-12-06 15:29] LABS: Adenovirus Not Detected (Not Detect); B. parapertussis Not Detected (Not Detecte); Bordetella pertussis Not Detected (Not Detecte); Chlamydophila pneumoniae Not Detected (Not Detect); Coronavirus 229E Not Detected (Not Detect); Coronavirus HKU1 Not Detected (Not Detect); Coronavirus NL 63 Not Detected (Not Detect); Coronavirus OC43 Not Detected (Not Detect); Human Metapneumovirus Not Detected (Not Detect); Human Rhinovirus/Enterovirus Not Detected (Not Detect); Influenza A Not Detected (Not Detect); Influenza B Not Detected (Not Detect); Mycoplasma pneumoniae Not Detected (Not Detect); Parainfluenza Virus 1 Not Detected (Not Detect); Parainfluenza Virus 2 Not Detected (Not Detect); Parainfluenza Virus 3 Not Detected (Not Detect); Parainfluenza Virus 4 Not Detected (Not Detect); Respiratory Syncytial Virus Not Detected (Not Detect); SARS- CoV-2 Not Detected (Not Detecte)
--- NOTE | 2022-12-06 15:46 | PC.NURSE ---
This RN gave report to Joan from [facility] ambulance. This RN also gave report to Sergo at [facility] transfer center. This RN gave both of them the contact information for this ED.
== END 2022-12-06 15:55 | disposition short-term general hospital (02) ==
PROVIDERS: Emergency Provider Emergency Medicine; Family Provider Internal Medicine Infectious Disease; PCP Internal Medicine
DX: J96.01 Acute respiratory failure with hypoxia (principal); J18.9 Pneumonia, unspecified organism; R50.9 Fever, unspecified; Z79.01 Long term (current) use of anticoagulants; Z79.899 Other long term (current) drug therapy; Z20.822 Contact with and (suspected) exposure to COVID-19
CPT/HCPCS: 36415; 36600; 71045; 80053; 81001; 82550; 82805; 82962; 83605; 83690; 83735; 83880; 84145; 84484; 85007; 85025; 85610; 87040; 87633; 93005; 94660; 96365; 96367; 96368; 96375; 99285; 99291; 99292; J0131; J1940; J2543

== ENCOUNTER 2023-02-02 19:31 | Emergency (ER) | payer OTHER, SELFPAY ==
[2022-10-13 14:55] VITALS: BMI 41.4
[2022-12-06 11:11] VITALS: PULSE 103; RESP 36; O2SAT 97
[2023-02-02] VITALS (12 sets, daily range): BP systolic 123–165; BP diastolic 60–72; PULSE 100–111; RESP 16–39; TEMP 37.8; O2SAT 90–99; BMI 38.9
--- NOTE | 2023-02-02 19:48 | DI.RAD.S_ITS ---
PROCEDURE: XR CHEST 1V INDICATIONS: suspected sepsis TECHNIQUE: One view of the chest was acquired. COMPARISON: [facility], CR, XR CHEST 1V, 12/06/2022, 9:59. [facility], CR, XR CHEST 1V, 10/27/2022, 10:02. FINDINGS: Surgical changes and devices: None. Lungs and pleura: Patchy opacity right mid-lower lung no pleural effusion or pneumothorax Mediastinum: Mediastinal contours appear normal. Heart size is normal. Bones and chest wall: No suspicious bony lesions. Overlying soft tissues appear unremarkable. IMPRESSION: Opacity at the right mid-lower lung could represent pneumonia in the appropriate clinical setting Dictated by: Syed Caballero M.D. on 02/02/2023 at 21:09 Approved by: Syed Caballero M.D. on 02/02/2023 at 21:11
[2023-02-02 20:41] LABS: Add Manual Diff / Slide Review NO; Basophils Absolute Auto 100 /uL (0-100); Basophils Percent Auto 0.4 % (0-2); Eosinophils Absolute Auto 0 /uL (0-450); Hematocrit 28.7 % (36-46); Hemoglobin 9.4 g/dL (12.0-16.0); Lymphocytes Absolute Auto 1400 /uL (1100-4500); Lymphocytes Percent Auto 8.3 % (25-40); Mean Corpuscular HGB Conc 32.7 % (30-36); Mean Corpuscular Hemoglobin 28.2 PG (26-34); Mean Corpuscular Volume 86.2 fL (80-100); Monocytes Absolute Auto 1600 /uL (0-900); Monocytes Percent Auto 9.4 % (3-14); Neutrophils Absolute Auto 14200 /uL (1500-7000); Neutrophils Percent Auto 81.9 % (50-75); Platelet Count 506 X10^3/uL (150-400); Red Blood Cell Count 3.32 X10^6/uL (4.0-5.2); Red Cell Distribution Width 19.6 % (11.6-14.8); White Blood Cell Count 17.3 X10^3/uL (4.5-11.0)
[2023-02-02 20:48] LABS: INR 2.3 (0.9-1.3); Prothrombin Time 26.6 SECONDS (10.1-12.7)
[2023-02-02 20:50] LABS: PTT Partial Thromboplastin Tim 39 SECONDS (26-36)
[2023-02-02 20:52] LABS: Lactate (Lactic Acid) 2.4 mmol/L (0.7-2.1)
[2023-02-02 20:53] LABS: Alanine Aminotransferase 18 IU/L (<35); Albumin Globulin Ratio 0.9 (1.0-2.8); Alkaline Phosphatase 84 U/L (38-126); Aspartate Aminotransferase 27 IU/L (14-36); BUN Creatinine Ratio 32.5 (6-22); Bilirubin Total 0.6 mg/dL (0.2-1.3); Blood Urea Nitrogen 25 mg/dL (7-17); Calcium 9.3 mg/dL (8.4-10.2); Carbon Dioxide 30 mmol/L (22-32); Chloride 97 mmol/L (98-107); Creatine Kinase 23 U/L (30-135); Estimated Glomerular Filt Rate > 60 mL/min (>60); Globulin 4.6 g/dL (1.7-4.1); Glucose 130 mg/dL (80-110); Lipase 63 U/L (23-300); Potassium 4.8 mmol/L (3.4-5.1); Sodium 135 mmol/L (137-145); Total Protein 8.6 g/dL (6.3-8.2)
[2023-02-02] MEDS: SODIUM CHLORIDE 0.9% 1,000 ML 1000 ML IV (20:56)
--- NOTE | 2023-02-02 20:57 | ED_ITS ---
HPI - Weakness <Joanne Mckoy, - Last Filed: 02/03/23 21:10> General Chief complaint: Weakness Stated complaint: weak Time Seen by Provider: 02/02/23 20:55 Source: patient Mode of arrival: EMS Limitations: no limitations History of Present Illness HPI Narrative: 72-year-old female nonsmoker with recurrent hospitalizations for pneumonia, history of CHF chronic respiratory failure on 4-5 L home O2, diabetes, hypothyroidism, GERD with recent septal ablation at [facility] and plan mitral valve replace (TAVR) of the next several months anticoagulated on warfarin. Patient has been lethargic was not sleeping well had decreased food and water intake over the last day has had fevers 100.1 F at home. No chest pain, no shortness of breath, no increasing work of breathing or O2 requirements. Denies nausea or vomiting but has had some thick sputum which was taken to [facility] for culture yesterday. Patient and family state that her last culture week ago was positive for Pseudomonas but they could not test it for sensitivities. They received this call from her her infectious disease doctor. She has had some thrush this week and was started on clotrimazole yesterday. She is got chronic constipation but is having bowel movements. No abdominal back or flank pain. She is had some urinary incontinence which comes and goes no dysuria urgency or frequency but states that this is intermittent sometimes when she gets infected with UTIs or when she is just ill. Patient is currently on prednisone daily, levothyroxine, duloxetine, spironolactone, torsemide, metoprolol, metformin, lansoprazole, potassium, clonidine, atorvastatin, nortriptyline, oxycodone as needed, to the as needed as needed. 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 Patient sees Infectious Disease with Dr. Zhang at [facility]. She is scheduled to follow up with Cardiology through [facility]. Related Data Home Medications Medication Instructions Recorded Confirmed polyethylene glycol 3350 17 17 gm PO DAILY PRN Constipation ##0 06/06/17 10/13/22 gram/dose oral powder (Miralax) albuterol sulfate 90 mcg/actuation 2 puff inhalation Q4-6H PRN 05/29/19 10/13/22 aerosol inhaler Shortness Of Breath cholecalciferol (vitamin D3) 50 2,000 unit PO DAILY 05/29/19 10/13/22 mcg (2,000 unit) tablet ferrous sulfate 325 mg (65 mg 325 mg PO BEDTIME 05/29/19 10/13/22 iron) tablet tizanidine 4 mg capsule 4 mg PO QID PRN Muscle Spasm 05/29/19 10/13/22 sodium chloride 3 % for 3 ml inhalation BID 06/05/19 10/13/22 nebulization cetirizine 10 mg capsule (Zyrtec) 10 mg PO DAILY allergies 01/20/20 10/13/22 montelukast 10 mg tablet 10 mg PO BEDTIME 01/20/20 10/13/22 (Singulair) atorvastatin 40 mg tablet 40 mg PO BEDTIME 04/20/21 10/13/22 epinephrine 0.3 mg/0.3 mL 0.3 mg IM Q5-15M PRN Allergic 04/20/21 10/13/22 injection, auto-injector (EpiPen) Reaction insulin glargine 100 unit/mL 30 unit SUBCUT QAM 04/20/21 10/13/22 subcutaneous solution insulin lispro 100 unit/mL 4 - 8 unit SUBCUT TID 04/20/21 10/13/22 subcutaneous pen (Humalog KwikPen (U-100) Insulin) ipratropium 0.5 mg-albuterol 3 mg 3 ml inhalation BID 04/20/21 10/13/22 (2.5 mg base)/3 mL nebulization soln levothyroxine 75 mcg tablet 75 mcg PO QAM 04/20/21 10/13/22 nortriptyline 25 mg capsule 25 mg PO BEDTIME 04/20/21 10/13/22 tiotropium bromide 18 mcg capsule 1 cap inhalation DAILY 04/20/21 10/13/22 with inhalation device (Spiriva with HandiHaler) lansoprazole 15 mg capsule,delayed 30 mg PO BID 04/29/21 10/13/22 release (Prevacid 24Hr) duloxetine 30 mg capsule,delayed 30 mg PO DAILY 06/28/21 10/13/22 release fluticasone 500 mcg-salmeterol 50 1 inh inhalation BID 06/28/21 10/13/22 mcg/dose blistr powdr for inhalation (Wixela Inhub) guaifenesin 1,200 mg tablet, 1,200 mg PO BID 06/28/21 10/13/22 extended release 12 hr (Mucinex) oxycodone-acetaminophen 10 mg-325 1 tab PO Q4H PRN Pain (Scale Score 06/28/21 10/13/22 mg tablet (Percocet) 4-6) pramipexole 0.5 mg tablet 0.5 mg PO BEDTIME 06/28/21 10/13/22 omega-3 fatty acids 1,000 mg PO DAILY 04/24/22 10/13/22 benralizumab 30 mg/mL subcutaneous 30 mg SUBCUT Q8W 06/03/22 10/13/22 syringe (Fasenra) [id number] 1 tab PO Q6H PRN Migraine Headache 06/03/22 10/13/22 50 mg-325 mg-40 mg tablet clonidine HCl 0.1 mg tablet 0.05 mg PO BID 06/03/22 10/13/22 oxycodone 5 mg capsule 15 mg PO Q6H PRN Pain (Scale Score 06/03/22 10/13/22 7-10) oxymetazoline 0.05 % nasal drops 1 drp intranasal BID PRN Congestion 06/03/22 10/13/22 prednisone 5 mg tablet 5 mg PO DAILY 06/03/22 10/13/22 Hizintra 15 g SUBCUT QWEEK 08/25/22 10/13/22 fluticasone 500 mcg-salmeterol 50 1 inh inhalation Q12H 08/25/22 10/13/22 mcg/dose blistr powdr for inhalation (Advair Diskus) fentanyl 12 mcg/hr transdermal 12 mcg transdermal SEEINSTR 10/13/22 10/13/22 patch warfarin 1 mg tablet 1 mg PO DAILY 10/13/22 10/13/22 furosemide 40 mg tablet 40 mg PO 0800 10/27/22 meropenem 2 IV Q8HR PNA 10/27/22 Previous Rx's Medication Instructions Recorded ondansetron HCl 4 mg tablet 4 mg PO Q8H PRN nausea and 10/06/19 (Zofran) vomiting #30 tabs verio reflect glucometer #1 ea 01/28/20 insulin syringe-needle U-100 0.5 #100 ea 03/30/20 mL 31 gauge x 5/16 (BD Insulin Syringe Ultra-Fine) metformin 1,000 mg tablet 1,000 mg PO BID #180 tabs 09/03/20 fentanyl 25 mcg/hr transdermal 1 patch transdermal Q72H PRN pain 02/05/22 patch (scale score 1-3) #5 ea aluminum-mag hydroxide-simethicone 30 ml PO Q6HR PRN Dyspepsia #355 mL 08/28/22 200 mg-200 mg-20 mg/5 mL oral susp (Mag-Al Plus) calcium carbonate 200 mg calcium 1,000 mg (5 x 200 mg calcium (500 08/28/22 (500 mg) chewable tablet mg)) PO Q4HR PRN Dyspepsia #60 tabs docusate sodium 100 mg capsule 100 mg PO BID #60 caps 08/28/22 potassium chloride 20 mEq/15 mL 20 meq (15 mL) PO BIDWM #250 mL 08/28/22 oral liquid sennosides 8.6 mg tablet (senna) 17.2 mg (2 x 8.6 mg) PO BEDTIME 08/28/22 #60 tabs Allergies Allergy/AdvReac Type Severity Reaction Status Date / Time hydroxychloroquine Allergy Unknown Verified 09/14/22 14:35 [HYDROXYCHLOROQUINE] cefepime AdvReac Intermediate pruritis Verified 09/14/22 14:35 promethazine [From Phenergan] AdvReac Agitated Verified 10/13/22 14:35 Review of Systems <Joanne Mckoy DO - Last Filed: 02/03/23 21:10> Review of Systems ROS Unobtainable: All systems reviewed & are unremarkable except as noted in HPI and below Patient History <Joanne Mckoy DO - Last Filed: 02/03/23 21:10> Medical History Anticoagulated Pneumonia Wears glasses Eczema Osteoarthritis Bronchiectasis (~2006) Sleep apnea Asthma (~1959) Abnormal chest xray (~1979) Restless leg syndrome Migraines (~1964) Shoulder pain (~03/2018) Osteopenia Degenerative joint disease of spine (~2001) Foot pain Fibromyalgia Chronic back pain Cervical spine disease Ankle pain MRSA (methicillin resistant Staphylococcus aureus) (~2002) Anemia Hoarseness Recurrent sinusitis (~1970) Colon polyps (~2015) Hypothyroidism Diabetes mellitus, type II (~2009) Hypertension Hyperlipidemia Nail bed carcinoma Pneumonia Surgical History Anesthesia History of thumb surgery History of carpal tunnel release History of spinal fusion (~2012) History of laminectomy (~2002) History of section History of cataract removal with insertion of prosthetic lens (~2014) Family History Father Stroke Mother Hypertension Brother Cerebral aneurysm Prostate cancer Diabetes mellitus Hypertension Stroke Brother Arthritis Hyperlipidemia Hypertension Sister History of kidney cancer Hypertension Grandfather Cancer Grandmother Cancer Other Family history non-contributory Social History marital status: household members: spouse lives independently: Yes occupational status: previously employed Smoking Status: Never smoker alcohol intake: current substance use type: does not use Smoking Status: Never smoker alcohol intake frequency: holidays/special occasions only Substance Use Type: does not use Exam <Joanne Mckoy DO - Last Filed: 02/03/23 21:10> Narrative Exam Narrative: GEN: Obese chronically ill appearing female, alert and oriented x 3, patient appears to be in distress. Nasal cannula in place at 4 L HEENT: Atraumatic, pupils are equal round reactive to light, extraocular movements are intact, nares are clear, there is no conjunctival pallor. Throat is clear without any exudates, erythema, tonsillar enlargement or uvular deviation HEART: Tachycardic but Regular rate and rhythm without murmur, clicks, rubs. pulses are equal in upper and lower extremities, patient has mild edema bilaterally. LUNGS:Lungs clear to auscultation, no wheezes, rales, crackles, chest moves symmetrically, no tachypnea accessory muscle use ABD:bowel sounds normal, soft, non-tender, nondistended, no guarding, rebound, rigidity, no masses noted, no hepatosplenomegaly :No CVA tenderness, MSCL: Non-tender, no muscle atrophy, muscles strength 5/5 upper and lower extremities, full range of motion NEURO:CN 2-12 intact, sensation normal SKIN: No rash, erythema or other skin changes noted Initial Vital Signs Initial Vital Signs: Vital Signs Temperature 100.0 F H 02/02/23 19:36 Pulse Rate 111 H 02/02/23 19:36 Respiratory Rate 16 02/02/23 19:36 Blood Pressure 165/72 H 02/02/23 19:36 Pulse Oximetry 97 02/02/23 19:36 Oxygen Delivery Method Nasal Cannula 02/02/23 19:36 Oxygen Flow Rate 4 02/02/23 19:36 <Lalitha Gracia DO - Last Filed: 02/03/23 12:58> Initial Vital Signs Initial Vital Signs: Vital Signs Temperature 100.0 F H 02/02/23 19:36 Pulse Rate 111 H 02/02/23 19:36 Respiratory Rate 16 02/02/23 19:36 Blood Pressure 165/72 H 02/02/23 19:36 Pulse Oximetry 97 02/02/23 19:36 Oxygen Delivery Method Nasal Cannula 02/02/23 19:36 Oxygen Flow Rate 4 02/02/23 19:36 Course <Joanne Mckoy DO - Last Filed: 02/03/23 21:10> Orders Ordered: Discontinued Medications Acetaminophen (Acetaminophen 325 Mg Tablet) 975 mg PO NOW ONE Stop: 02/02/23 20:58 Last Admin: 02/02/23 21:11 Dose: Not Given Documented By: AYANNA Albuterol/Ipratropium (Albuterol/Ipratropium 3 Ml Ampul) 3 ml INH [id number] [facility] Albuterol/Ipratropium (Albuterol/Ipratropium 3 Ml Ampul) 3 ml INH RTQ4HR PRN PRN Reason: Shortness Of Breath Last Admin: 02/03/23 09:31 Dose: 3 ml Documented By: Admin: 02/03/23 04:48 Dose: 3 ml Documented By: RONALD Albuterol/Ipratropium (Albuterol/Ipratropium 3 Ml Ampul) 3 ml INH NOW ONE Stop: 02/03/23 05:05 Last Admin: 02/03/23 05:05 Dose: 3 ml Documented By: RONALD Clonidine HCl (Clonidine 0.1 Mg Tablet) 0.1 mg PO BID [facility] Last Admin: 02/03/23 08:31 Dose: 0.1 mg Documented By: SHEREEN Fentanyl (Fentanyl 12 Mcg/Patch) 12 mcg TOP Q72H CARMELO Fentanyl (Fentanyl 25 Mcg/Patch) 25 mcg TOP Q72H [facility] Sodium Chloride (Normal Saline 0.9%) 1,000 mls @ 1,000 mls/hr IV BOLUS ONE Stop: 02/02/23 20:47 Last Infusion: 02/02/23 21:56 Dose: Infused Documented By: Admin: 02/02/23 20:56 Dose: 1,000 mls/hr Documented By: AYANNA Ciprofloxacin (Cipro) 400 mg in 200 mls @ 200 mls/hr IV NOW ONE Stop: 02/02/23 23:05 Last Infusion: 02/03/23 00:02 Dose: Infused Documented By: Admin: 02/02/23 23:02 Dose: 200 mls/hr Documented By: AYANNA Ceftazidime 2 gm/ Sodium (Chloride) 100 mls @ 200 mls/hr IV NOW ONE Stop: 02/03/23 00:19 Last Infusion: 02/03/23 01:11 Dose: Infused Documented By: Admin: 02/03/23 00:41 Dose: 200 mls/hr Documented By: AYANNA Ceftazidime 2 gm/ Sodium (Chloride) 100 mls @ 200 mls/hr IV Q8H [facility] Last Infusion: 02/03/23 09:23 Dose: Infused Documented By: Admin: 02/03/23 08:43 Dose: 200 mls/hr Documented By: SHEREEN Meropenem 2,000 mg/ Sodium (Chloride) 100 mls @ 200 mls/hr IV NOW ONE Stop: 02/03/23 07:44 Last Infusion: 02/03/23 09:26 Dose: Infused Documented By: Admin: 02/03/23 08:50 Dose: 200 mls/hr Documented By: SHEREEN Insulin Human Lispro (Insulin Lispro 100 Unit/Ml 3ml Vial) 0 unit SUBCUT [facility]; Protocol Last Admin: 02/03/23 08:41 Dose: 5 unit Documented By: SHEREEN Co-signed By: CARLOS Metoprolol Succinate (Metoprolol Er 25 Mg Tablet) 12.5 mg PO BID [facility] Last Admin: 02/03/23 08:30 Dose: 12.5 mg Documented By: SHEREEN Minocycline HCl (Minocycline Hcl 100 Mg Capsule) 100 mg PO BID [facility] Minocycline HCl (Minocycline Hcl 100 Mg Capsule) 200 mg PO NOW [facility] Last Admin: 02/03/23 00:40 Dose: 200 mg Documented By: AYANNA Minocycline HCl (Minocycline Hcl 100 Mg Capsule) 200 mg PO BID [facility] Last Admin: 02/03/23 08:30 Dose: 200 mg Documented By: SHEREEN Ondansetron HCl (Ondansetron 4 Mg/2 Ml Inj) 4 mg IV NOW PRN PRN Reason: Nausea And Vomiting Ondansetron HCl (Ondansetron 4 Mg Odt) 4 mg SL NOW PRN PRN Reason: Nausea And Vomiting Oxycodone HCl (Oxycodone Ir 5 Mg Tablet) 15 mg PO NOW ONE Stop: 02/03/23 06:51 Last Admin: 02/03/23 06:56 Dose: 15 mg Documented By: SANTIAGO Prednisone (Prednisone 5 Mg Tablet) 5 mg PO DAILY [facility] Last Admin: 02/03/23 08:31 Dose: 5 mg Documented By: SHEREEN Spironolactone (Spironolactone 25 Mg Tablet) 25 mg PO DAILY [facility] Last Admin: 02/03/23 08:31 Dose: 25 mg Documented By: SHEREEN Torsemide (Torsemide 10 Mg Tablet) 40 mg PO NOW ONE Stop: 02/03/23 05:19 Last Admin: 02/03/23 05:31 Dose: 40 mg Documented By: AYANNA Warfarin Protocol (Warfarin Per Pharmacy (Inr 2-3)) 1 request MISC NOW PRN PRN Reason: Bleeding Warfarin Sodium (Warfarin 1 Mg Tablet) 2 mg PO 1700 ONE Stop: 02/03/23 17:01 Warfarin Sodium (Warfarin 1 Mg Tablet) 1 mg PO 1700 [facility] Vital Signs Vital signs: Vital Signs - 8 hr 02/03/23 05:00 02/03/23 05:00 02/03/23 05:30 Pulse Rate 101 H Respiratory Rate 30 H Blood Pressure 167/84 H 187/106 H Pulse Oximetry 100 Oxygen Delivery Method Oxygen Flow Rate 02/03/23 05:30 02/03/23 06:00 02/03/23 06:01 Pulse Rate 107 H 109 H 109 H Respiratory Rate Blood Pressure Pulse Oximetry 93 94 94 Oxygen Delivery Method Oxygen Flow Rate 02/03/23 06:01 02/03/23 06:30 02/03/23 06:31 Pulse Rate 110 H Respiratory Rate 29 H Blood Pressure 167/72 H 154/70 H Pulse Oximetry 96 Oxygen Delivery Method Oxygen Flow Rate 02/03/23 06:31 02/03/23 07:00 02/03/23 07:01 Pulse Rate 110 H 108 H 107 H Respiratory Rate 29 H 30 H Blood Pressure Pulse Oximetry 96 95 97 Oxygen Delivery Method Nasal Cannula Nasal Cannula Oxygen Flow Rate 4.5 4.5 02/03/23 07:01 02/03/23 07:30 02/03/23 07:30 Pulse Rate 105 H Respiratory Rate 36 H Blood Pressure 151/69 H 153/72 H Pulse Oximetry 97 Oxygen Delivery Method Nasal Cannula Oxygen Flow Rate 4.5 02/03/23 08:00 02/03/23 08:00 02/03/23 08:30 Pulse Rate 106 H 108 H Respiratory Rate 30 H Blood Pressure 158/81 H 176/74 H Pulse Oximetry 96 Oxygen Delivery Method Nasal Cannula Oxygen Flow Rate 4.5 02/03/23 08:30 02/03/23 08:31 02/03/23 08:31 Pulse Rate 108 H 108 H Respiratory Rate 29 H Blood Pressure 178/74 H 176/74 H Pulse Oximetry 95 Oxygen Delivery Method Nasal Cannula Oxygen Flow Rate 4.5 02/03/23 08:31 02/03/23 09:00 02/03/23 09:01 Pulse Rate 108 H 106 H Respiratory Rate 29 H 26 H Blood Pressure 145/67 H Pulse Oximetry 95 94 Oxygen Delivery Method Nasal Cannula Nasal Cannula Oxygen Flow Rate 4.5 4.5 02/03/23 09:01 02/03/23 09:30 02/03/23 09:30 Pulse Rate 104 H 101 H Respiratory Rate 27 H 28 H Blood Pressure 138/65 Pulse Oximetry 94 96 Oxygen Delivery Method Nasal Cannula Nasal Cannula Oxygen Flow Rate 4.5 4.5 02/03/23 09:31 02/03/23 10:00 02/03/23 10:00 Pulse Rate 102 H 100 H Respiratory Rate 28 H 24 Blood Pressure 130/75 Pulse Oximetry 94 95 Oxygen Delivery Method Nasal Cannula Nasal Cannula Oxygen Flow Rate 5 4.5 02/03/23 10:30 02/03/23 10:30 02/03/23 11:00 Pulse Rate 102 H Respiratory Rate 26 H Blood Pressure 113/63 119/59 L Pulse Oximetry 94 Oxygen Delivery Method Nasal Cannula Oxygen Flow Rate 4.5 02/03/23 11:00 02/03/23 11:30 02/03/23 11:31 Pulse Rate 97 H 101 H Respiratory Rate 25 H 34 H Blood Pressure 125/63 Pulse Oximetry 95 96 Oxygen Delivery Method Nasal Cannula Nasal Cannula Oxygen Flow Rate 4.5 4.5 02/03/23 11:31 02/03/23 12:00 02/03/23 12:00 Pulse Rate 100 H 99 H Respiratory Rate 28 H 23 Blood Pressure 112/59 L Pulse Oximetry 95 95 Oxygen Delivery Method Nasal Cannula Nasal Cannula Oxygen Flow Rate 4.5 4.5 02/03/23 12:30 02/03/23 12:30 Pulse Rate 98 H Respiratory Rate 32 H Blood Pressure 111/69 Pulse Oximetry 95 Oxygen Delivery Method Nasal Cannula Oxygen Flow Rate 4.5 <Lalitha Gracia, DO - Last Filed: 02/03/23 12:58> Orders Ordered: Discontinued Medications Acetaminophen (Acetaminophen 325 Mg Tablet) 975 mg PO NOW ONE Stop: 02/02/23 20:58 Last Admin: 02/02/23 21:11 Dose: Not Given Documented By: AYANNA Albuterol/Ipratropium (Albuterol/Ipratropium 3 Ml Ampul) 3 ml INH [id number] [facility] Albuterol/Ipratropium (Albuterol/Ipratropium 3 Ml Ampul) 3 ml INH RTQ4HR PRN PRN Reason: Shortness Of Breath Last Admin: 02/03/23 09:31 Dose: 3 ml Documented By: Admin: 02/03/23 04:48 Dose: 3 ml Documented By: RONALD Albuterol/Ipratropium (Albuterol/Ipratropium 3 Ml Ampul) 3 ml INH NOW ONE Stop: 02/03/23 05:05 Last Admin: 02/03/23 05:05 Dose: 3 ml Documented By: RONALD Clonidine HCl (Clonidine 0.1 Mg Tablet) 0.1 mg PO BID [facility] Last Admin: 02/03/23 08:31 Dose: 0.1 mg Documented By: SHEREEN Fentanyl (Fentanyl 12 Mcg/Patch) 12 mcg TOP Q72H [facility]O Fentanyl (Fentanyl 25 Mcg/Patch) 25 mcg TOP Q72H [facility] Sodium Chloride (Normal Saline 0.9%) 1,000 mls @ 1,000 mls/hr IV BOLUS ONE Stop: 02/02/23 20:47 Last Infusion: 02/02/23 21:56 Dose: Infused Documented By: Admin: 02/02/23 20:56 Dose: 1,000 mls/hr Documented By: AYANNA Ciprofloxacin (Cipro) 400 mg in 200 mls @ 200 mls/hr IV NOW ONE Stop: 02/02/23 23:05 Last Infusion: 02/03/23 00:02 Dose: Infused Documented By: Admin: 02/02/23 23:02 Dose: 200 mls/hr Documented By: AYANNA Ceftazidime 2 gm/ Sodium (Chloride) 100 mls @ 200 mls/hr IV NOW ONE Stop: 02/03/23 00:19 Last Infusion: 02/03/23 01:11 Dose: Infused Documented By: Admin: 02/03/23 00:41 Dose: 200 mls/hr Documented By: AYANNA Ceftazidime 2 gm/ Sodium (Chloride) 100 mls @ 200 mls/hr IV Q8H [facility] Last Infusion: 02/03/23 09:23 Dose: Infused Documented By: Admin: 02/03/23 08:43 Dose: 200 mls/hr Documented By: SHEREEN Meropenem 2,000 mg/ Sodium (Chloride) 100 mls @ 200 mls/hr IV NOW ONE Stop: 02/03/23 07:44 Last Infusion: 02/03/23 09:26 Dose: Infused Documented By: Admin: 02/03/23 08:50 Dose: 200 mls/hr Documented By: SHEREEN Insulin Human Lispro (Insulin Lispro 100 Unit/Ml 3ml Vial) 0 unit SUBCUT [facility]; Protocol Last Admin: 02/03/23 08:41 Dose: 5 unit Documented By: SHEREEN Co-signed By: CARLOS Metoprolol Succinate (Metoprolol Er 25 Mg Tablet) 12.5 mg PO BID [facility] Last Admin: 02/03/23 08:30 Dose: 12.5 mg Documented By: SHEREEN Minocycline HCl (Minocycline Hcl 100 Mg Capsule) 100 mg PO BID [facility] Minocycline HCl (Minocycline Hcl 100 Mg Capsule) 200 mg PO NOW [facility] Last Admin: 02/03/23 00:40 Dose: 200 mg Documented By: AYANNA Minocycline HCl (Minocycline Hcl 100 Mg Capsule) 200 mg PO BID [facility] Last Admin: 02/03/23 08:30 Dose: 200 mg Documented By: SHEREEN Ondansetron HCl (Ondansetron 4 Mg/2 Ml Inj) 4 mg IV NOW PRN PRN Reason: Nausea And Vomiting Ondansetron HCl (Ondansetron 4 Mg Odt) 4 mg SL NOW PRN PRN Reason: Nausea And Vomiting Oxycodone HCl (Oxycodone Ir 5 Mg Tablet) 15 mg PO NOW ONE Stop: 02/03/23 06:51 Last Admin: 02/03/23 06:56 Dose: 15 mg Documented By: SANTIAGO Prednisone (Prednisone 5 Mg Tablet) 5 mg PO DAILY [facility] Last Admin: 02/03/23 08:31 Dose: 5 mg Documented By: SHEREEN Spironolactone (Spironolactone 25 Mg Tablet) 25 mg PO DAILY [facility] Last Admin: 02/03/23 08:31 Dose: 25 mg Documented By: SHEREEN Torsemide (Torsemide 10 Mg Tablet) 40 mg PO NOW ONE Stop: 02/03/23 05:19 Last Admin: 02/03/23 05:31 Dose: 40 mg Documented By: AYANNA Warfarin Protocol (Warfarin Per Pharmacy (Inr 2-3)) 1 request MISC NOW PRN PRN Reason: Bleeding Warfarin Sodium (Warfarin 1 Mg Tablet) 2 mg PO 1700 ONE Stop: 02/03/23 17:01 Warfarin Sodium (Warfarin 1 Mg Tablet) 1 mg PO 1700 [facility] Vital Signs Vital signs: Vital Signs - 8 hr 02/03/23 05:00 02/03/23 05:00 02/03/23 05:30 Pulse Rate 101 H Respiratory Rate 30 H Blood Pressure 167/84 H 187/106 H Pulse Oximetry 100 Oxygen Delivery Method Oxygen Flow Rate 02/03/23 05:30 02/03/23 06:00 02/03/23 06:01 Pulse Rate 107 H 109 H 109 H Respiratory Rate Blood Pressure Pulse Oximetry 93 94 94 Oxygen Delivery Method Oxygen Flow Rate 02/03/23 06:01 02/03/23 06:30 02/03/23 06:31 Pulse Rate 110 H Respiratory Rate 29 H Blood Pressure 167/72 H 154/70 H Pulse Oximetry 96 Oxygen Delivery Method Oxygen Flow Rate 02/03/23 06:31 02/03/23 07:00 02/03/23 07:01 Pulse Rate 110 H 108 H 107 H Respiratory Rate 29 H 30 H Blood Pressure Pulse Oximetry 96 95 97 Oxygen Delivery Method Nasal Cannula Nasal Cannula Oxygen Flow Rate 4.5 4.5 02/03/23 07:01 02/03/23 07:30 02/03/23 07:30 Pulse Rate 105 H Respiratory Rate 36 H Blood Pressure 151/69 H 153/72 H Pulse Oximetry 97 Oxygen Delivery Method Nasal Cannula Oxygen Flow Rate 4.5 02/03/23 08:00 02/03/23 08:00 02/03/23 08:30 Pulse Rate 106 H 108 H Respiratory Rate 30 H Blood Pressure 158/81 H 176/74 H Pulse Oximetry 96 Oxygen Delivery Method Nasal Cannula Oxygen Flow Rate 4.5 02/03/23 08:30 02/03/23 08:31 02/03/23 08:31 Pulse Rate 108 H 108 H Respiratory Rate 29 H Blood Pressure 178/74 H 176/74 H Pulse Oximetry 95 Oxygen Delivery Method Nasal Cannula Oxygen Flow Rate 4.5 02/03/23 08:31 02/03/23 09:00 02/03/23 09:01 Pulse Rate 108 H 106 H Respiratory Rate 29 H 26 H Blood Pressure 145/67 H Pulse Oximetry 95 94 Oxygen Delivery Method Nasal Cannula Nasal Cannula Oxygen Flow Rate 4.5 4.5 02/03/23 09:01 02/03/23 09:30 02/03/23 09:30 Pulse Rate 104 H 101 H Respiratory Rate 27 H 28 H Blood Pressure 138/65 Pulse Oximetry 94 96 Oxygen Delivery Method Nasal Cannula Nasal Cannula Oxygen Flow Rate 4.5 4.5 02/03/23 09:31 02/03/23 10:00 02/03/23 10:00 Pulse Rate 102 H 100 H Respiratory Rate 28 H 24 Blood Pressure 130/75 Pulse Oximetry 94 95 Oxygen Delivery Method Nasal Cannula Nasal Cannula Oxygen Flow Rate 5 4.5 02/03/23 10:30 02/03/23 10:30 02/03/23 11:00 Pulse Rate 102 H Respiratory Rate 26 H Blood Pressure 113/63 119/59 L Pulse Oximetry 94 Oxygen Delivery Method Nasal Cannula Oxygen Flow Rate 4.5 02/03/23 11:00 02/03/23 11:30 02/03/23 11:31 Pulse Rate 97 H 101 H Respiratory Rate 25 H 34 H Blood Pressure 125/63 Pulse Oximetry 95 96 Oxygen Delivery Method Nasal Cannula Nasal Cannula Oxygen Flow Rate 4.5 4.5 02/03/23 11:31 02/03/23 12:00 02/03/23 12:00 Pulse Rate 100 H 99 H Respiratory Rate 28 H 23 Blood Pressure 112/59 L Pulse Oximetry 95 95 Oxygen Delivery Method Nasal Cannula Nasal Cannula Oxygen Flow Rate 4.5 4.5 02/03/23 12:30 02/03/23 12:30 Pulse Rate 98 H Respiratory Rate 32 H Blood Pressure 111/69 Pulse Oximetry 95 Oxygen Delivery Method Nasal Cannula Oxygen Flow Rate 4.5 MDM - Weakness <Joanne Nassar Leelee, DO - Last Filed: 02/03/23 21:10> Lab Data 02/03/23 07:46 02/03/23 07:46 Labs: Lab Results 02/02/23 02/02/23 02/02/23 Range/Units 20:22 21:20 22:27 WBC 17.3 H (4.5-11.0) X10^3/uL RBC 3.32 L (4.0-5.2) X10^6/uL Hgb 9.4 L (12.0-16.0) g/dL Hct 28.7 L (36-46) % MCV 86.2 (80-100) fL MCH 28.2 (26-34) PG MCHC 32.7 (30-36) % RDW 19.6 H (11.6-14.8) % Plt Count 506 H (150-400) X10^3/uL Neut % (Auto) 81.9 H (50-75) % Lymph % (Auto) 8.3 L (25-40) % Hettinger % (Auto) 9.4 (3-14) % Eos % (Auto) 0.0 L (2-4) % Baso % (Auto) 0.4 (0-2) % Neut # (Auto) 16354 H (7503-5282) /uL Lymph # (Auto) 1400 (7242-2057) /uL [place] # (Auto) 1600 H (0-900) /uL Eos # (Auto) 0 (0-450) /uL Baso # (Auto) 100 (0-100) /uL PT 26.6 H (10.1-12.7) SECONDS INR 2.3 H (0.9-1.3) APTT 39 H (26-36) SECONDS Sodium 135 L (137-145) mmol/L Potassium 4.8 (3.4-5.1) mmol/L Chloride 97 L (98-107) mmol/L Carbon Dioxide 30 (22-32) mmol/L BUN 25 H (7-17) mg/dL Creatinine 0.77 (0.52-1.04) mg/dL Estimated GFR > 60 (>60) mL/min BUN/Creatinine Ratio 32.5 H (6-22) Glucose 130 H (80-110) mg/dL Lactate 2.4 H 1.1 (0.7-2.1) mmol/L Calcium 9.3 (8.4-10.2) mg/dL Total Bilirubin 0.6 (0.2-1.3) mg/dL AST 27 (14-36) IU/L ALT 18 (<35) IU/L Alkaline Phosphatase 84 (38-126) U/L Total Creatine Kinase 23 L (30-135) U/L Troponin I 0.039 H (0.01-0.034) ng/mL NT-Pro-B Natriuret Pep 4710 H (<125) pg/mL Total Protein 8.6 H (6.3-8.2) g/dL Albumin 4.0 (3.5-5.0) g/dL Globulin 4.6 H (1.7-4.1) g/dL Albumin/Globulin Ratio 0.9 L (1.0-2.8) Lipase 63 (23-300) U/L Procalcitonin 0.05 (<0.5) ng/mL Urine Color Yellow Urine Appearance Clear Urine pH 8.0 (4.5-8.0) Ur Specific Brook 1.010 (1.000-1.035) Urine Protein Trace H (Negative) Urine Glucose (UA) Negative (Negative) g/dL Urine Ketones Negative (NEGATIVE) Urine Occult Blood Negative (Negative) Urine Nitrate Negative (Negative) Urine Bilirubin Negative (NEGATIVE) Urine Urobilinogen 0.2 (0.2) E.U./dL Ur Leukocyte Esterase 1+ H (NEGATIVE) Urine RBC None seen (0-5/HPF) Urine WBC 10-30/hpf H (0-5/HPF) Ur Squamous Epith Cells None seen (0-5/HPF) Urine Bacteria Many (>30) H (None) Ur Culture Indicated? Specimen cultured Chlamy pneumoniae PCR (Not Detect) Adenovirus (PCR) (Not Detect) B.parapertussis DNA PCR (Not Detecte) Coronavirus OC43 (PCR) (Not Detect) Coronavirus HKU1 (PCR) (Not Detect) Coronavirus 229E (PCR) (Not Detect) SARS-CoV-2 (PCR) (Not Detecte) Coronavirus NL63 (PCR) (Not Detect) Human Metapneumovir PCR (Not Detect) Influenza Type A (PCR) (Not Detect) Influenza Type B (PCR) (Not Detect) M. pneumoniae (PCR) (Not Detect) Parainfluenza 1 (PCR) (Not Detect) Parainfluenza 2 (PCR) (Not Detect) Parainfluenza 3 (PCR) (Not Detect) Parainfluenza 4 (PCR) (Not Detect) RSV (PCR) (Not Detect) Entero/Rhino (PCR) (Not Detect) 02/02/23 02/03/23 02/03/23 Range/Units 22:40 07:37 07:46 WBC 13.4 H (4.5-11.0) X10^3/uL RBC 3.77 L (4.0-5.2) X10^6/uL Hgb 10.4 L (12.0-16.0) g/dL Hct 32.6 L (36-46) % MCV 86.5 (80-100) fL MCH 27.6 (26-34) PG MCHC 31.9 (30-36) % RDW 19.2 H (11.6-14.8) % Plt Count 399 (150-400) X10^3/uL Neut % (Auto) 79.2 H (50-75) % Lymph % (Auto) 11.0 L (25-40) % Hettinger % (Auto) 9.2 (3-14) % Eos % (Auto) 0.0 L (2-4) % Baso % (Auto) 0.6 (0-2) % Neut # (Auto) 83029 H (2842-6334) /uL Lymph # (Auto) 1500 (6776-5671) /uL Hettinger # (Auto) 1200 H (0-900) /uL Eos # (Auto) 0 (0-450) /uL Baso # (Auto) 100 (0-100) /uL PT 23.0 H (10.1-12.7) SECONDS INR 2.0 H (0.9-1.3) APTT (26-36) SECONDS Sodium 133 L (137-145) mmol/L Potassium 4.4 (3.4-5.1) mmol/L Chloride 100 (98-107) mmol/L Carbon Dioxide 26 (22-32) mmol/L BUN 19 H (7-17) mg/dL Creatinine 0.70 (0.52-1.04) mg/dL Estimated GFR > 60 (>60) mL/min BUN/Creatinine Ratio 27.1 H (6-22) Glucose 188 H (80-110) mg/dL Lactate (0.7-2.1) mmol/L Calcium 8.9 (8.4-10.2) mg/dL Total Bilirubin (0.2-1.3) mg/dL AST (14-36) IU/L ALT (<35) IU/L Alkaline Phosphatase (38-126) U/L Total Creatine Kinase (30-135) U/L Troponin I 0.042 H 0.039 H (0.01-0.034) ng/mL NT-Pro-B Natriuret Pep (<125) pg/mL Total Protein (6.3-8.2) g/dL Albumin (3.5-5.0) g/dL Globulin (1.7-4.1) g/dL Albumin/Globulin Ratio (1.0-2.8) Lipase (23-300) U/L Procalcitonin (<0.5) ng/mL Urine Color Urine Appearance Urine pH (4.5-8.0) Ur Specific Brook (1.000-1.035) Urine Protein (Negative) Urine Glucose (UA) (Negative) g/dL Urine Ketones (NEGATIVE) Urine Occult Blood (Negative) Urine Nitrate (Negative) Urine Bilirubin (NEGATIVE) Urine Urobilinogen (0.2) E.U./dL Ur Leukocyte Esterase (NEGATIVE) Urine RBC (0-5/HPF) Urine WBC (0-5/HPF) Ur Squamous Epith Cells (0-5/HPF) Urine Bacteria (None) Ur Culture Indicated? Chlamy pneumoniae PCR Not detected (Not Detect) Adenovirus (PCR) Not detected (Not Detect) B.parapertussis DNA PCR Not detected (Not Detecte) Coronavirus OC43 (PCR) Not detected (Not Detect) Coronavirus HKU1 (PCR) Not detected (Not Detect) Coronavirus 229E (PCR) Not detected (Not Detect) SARS-CoV-2 (PCR) Not detected (Not Detecte) Coronavirus NL63 (PCR) Not detected (Not Detect) Human Metapneumovir PCR Not detected (Not Detect) Influenza Type A (PCR) Not detected (Not Detect) Influenza Type B (PCR) Not detected (Not Detect) M. pneumoniae (PCR) Not detected (Not Detect) Parainfluenza 1 (PCR) Not detected (Not Detect) Parainfluenza 2 (PCR) Not detected (Not Detect) Parainfluenza 3 (PCR) Not detected (Not Detect) Parainfluenza 4 (PCR) Not detected (Not Detect) RSV (PCR) Not detected (Not Detect) Entero/Rhino (PCR) Not detected (Not Detect) Point of Care Testing Glucose POC 124 Imaging Data Chest x-ray: Radiologist Impression: [address] [address] XRay Report Signed Patient: Radha Zavaleta MR#: [id number] : 1950 Acct:[id number] Age/Sex: 72 / F Date of Service: 02/02/23 Loc: ED Accession Number: [id number] Procedure: XR chest 1V Ordering Provider: Joanne Mckoy D.O. PROCEDURE: XR CHEST 1V INDICATIONS: suspected sepsis TECHNIQUE: One view of the chest was acquired. COMPARISON: [facility], , XR CHEST 1V, 12/06/2022, 9:59. [facility], , XR CHEST 1V, 10/27/2022, 10:02. FINDINGS: Surgical changes and devices: None. Lungs and pleura: Patchy opacity right mid-lower lung no pleural effusion or pneumothorax Mediastinum: Mediastinal contours appear normal. Heart size is normal. Bones and chest wall: No suspicious bony lesions. Overlying soft tissues appear unremarkable. IMPRESSION: Opacity at the right mid-lower lung could represent pneumonia in the appropriate clinical setting Dictated by: Syed Caballero M.D. on 02/02/2023 at 21:09 Approved by: Syed Caballero M.D. on 02/02/2023 at 21:11 CT chest: Radiologist Impression: [address] [address] [address] Scan Report Signed Patient: Radha Zavaleta MR#: [id number] : 1950 Acct:[id number] Age/Sex: 72 / F Date of Service: 02/02/23 Loc: ED Accession Number: [id number] Procedure: CT chest w con Ordering Provider: Joanne Mckoy D.O. PROCEDURE: CT CHEST W CON INDICATIONS: Fever, sputum, Hx of recurrent pneumonia. TECHNIQUE: After the administration of intravenous contrast, 5 mm thick sections acquired from the pulmonary apices to the posterior costophrenic angles. 1 mm axial lung, 5 mm thick coronal and sagittal reformats and 7 mm axial MIP were acquired. For radiation dose reduction, the following was used: automated exposure control, adjustment of mA and/or kV according to patient size. COMPARISON: [facility], CR, XR CHEST 1V, 02/02/2023, 20:08. [facility], CT, CT CHEST WITH CONTRAST, 11/16/2022, 10:55. [facility], CT, CT CHEST W CON, 06/09/2020, 13:45. FINDINGS: Lungs and pleura: Patchy consolidative and ground-glass opacities present most pronounced at the inferior aspect of the right upper lobe. Aeration of the left lower lobe has improved compared to the prior CT. Patchy nonspecific consolidative opacities also demonstrated in the left lower lobe but could represent aspiration or pneumonia. No large pleural effusion. No pneumothorax. Mediastinum: Mediastinal adenopathy is present as before Bones and chest wall: Multilevel degenerative change of the visualized spine. Abdomen: IVC filter partially imaged IMPRESSION: Right lung consolidative and ground-glass opacity suspicious for pneumonia other findings as above Dictated by: Syed Caballero M.D. on 02/02/2023 at 23:47 Approved by: Syed Caballero M.D. on 02/02/2023 at 23:53 ECG Data Attestation: I personally reviewed and interpreted this ECG as follows: Prior ECG tracings: available for review Interpretation: Sinus tachycardia rate of 105 NM 132 QRS of [address] elevation depression, incomplete right bundle, right ventricular hypertrophy. Patient does have change from prior 12/06/2022 but patient did have esophageal ablation procedure in December. MDM Narrative Medical decision making narrative: 72-year-old female with chronic hypoxic respiratory failure recurrent pneumonia, CHF who had a septal ablation at [facility] in December, is supposed to have a mitral valve. Patient's white count continues to be elevated is 18 was 17 unless visit hemoglobin 9.4 platelets are 506 creatinine and electrolytes are appropriate INR is 2.3 patient is on warfarin, lactate was 2.4- procalcitonin 0.05. BNP is 4700 fairly consistent with last visit, troponins 0.039. Chest x- ray shows possible right lower lobe pneumonia, patient has had recurrent pneumonias frequently CT chest was obtained. Patient family notes she had a recent sputum culture that was positive for Pseudomonas but could not have sensitivities done. They dropped off another 1 yesterday at [facility]. She is not had increasing respiratory difficulties but did have a temp of a 100.1? F at home. Was tachycardic here. Patient's EKG does show change from November but patient had a septal ablation in December so this is not totally unexpected. CT chest shows right lung consolidative and ground-glass opacities suspicious for pneumonia most pronounced at the inferior aspect. Aeration of the left lower lobe improved compared to prior CT. Patchy nonspecific consolidative opacities in left lower lobe could represent aspiration or pneumonia no large pleural effusion no pneumothorax. Mediastinal adenopathy is present as before. Multilevel degenerative change of the visualized spine. IVC filter partially imaged. Patient has had urinary symptoms she has trace protein, 1+ leuks, 10-30 WBCs no RBCs no squamous epithelials with many bacteria and was sent for culture. Case discussed with Infectious Disease, Dr. Zhang (patients regular ID physician): Does not recommend discharge. Suspects more likely infectious over cardiac. She would recommend transfer if they need to adjust medications as they have a larger formulary and we do not have inpatient cardiology if necessary or inpatient pulmonology. She recommends ceftazidime based on patients prior cultures as well as minocycline can give a 200 mg p.o. dose of minocycline and then they may adjust down to 100 mg dependent on how patient tolerates. Discussed with patient and family they feel comfortable with this plan. Called [facility], patient on waitlist may have openings in the am. Also called [facility] hospitalist patient had recent procedure in December with the ablation of her septum. They would be happy to see the patient but states unlikely to have bed availability for the next 48 hours. I spoke with Dr. Arreaga, hospitalist. Patient signed out to Dr. Gracia while awaiting bed hopefully at other facility secondary to complicated medical history and lack of subspecialists available here and ID suspects may need broader formulary of antibiotic choices. Patient stable overnight. AM labs ordered. Dr. Gracia 830am-patient signed out to me by Dr. Mckoy I have seen evaluated patient myself. She is awake alert oriented eating breakfast. I have seen her many times in the past she actually appears well. However obvious concern for ongoing infection suspicion for Pseudomonas pending sputum culture from yesterday. Infectious Disease actually called this morning to check on her recommended adding meropenem 2 g. They strongly encourage her to be transferred to [facility]. We have notified the supervisor plate forming they anticipate a bed hopefully later this afternoon. Blood work this morning has improved WBC went from 17 to 13, INR this morning 2.0, electrolytes stable troponin trending downwards. Respiratory panel is also negative. Dr. Solano at [facility] accepts patient <Lalitha Gracia DO - Last Filed: 02/03/23 12:58> Lab Data Labs: Lab Results 02/02/23 02/02/23 02/02/23 Range/Units 20:22 21:20 22:27 WBC 17.3 H (4.5-11.0) X10^3/uL RBC 3.32 L (4.0-5.2) X10^6/uL Hgb 9.4 L (12.0-16.0) g/dL Hct 28.7 L (36-46) % MCV 86.2 (80-100) fL MCH 28.2 (26-34) PG MCHC 32.7 (30-36) % RDW 19.6 H (11.6-14.8) % Plt Count 506 H (150-400) X10^3/uL Neut % (Auto) 81.9 H (50-75) % Lymph % (Auto) 8.3 L (25-40) % Hettinger % (Auto) 9.4 (3-14) % Eos % (Auto) 0.0 L (2-4) % Baso % (Auto) 0.4 (0-2) % Neut # (Auto) 80384 H (0776-0582) /uL Lymph # (Auto) 1400 (3633-7805) /uL Hettinger # (Auto) 1600 H (0-900) /uL Eos # (Auto) 0 (0-450) /uL Baso # (Auto) 100 (0-100) /uL PT 26.6 H (10.1-12.7) SECONDS INR 2.3 H (0.9-1.3) APTT 39 H (26-36) SECONDS Sodium 135 L (137-145) mmol/L Potassium 4.8 (3.4-5.1) mmol/L Chloride 97 L (98-107) mmol/L Carbon Dioxide 30 (22-32) mmol/L BUN 25 H (7-17) mg/dL Creatinine 0.77 (0.52-1.04) mg/dL Estimated GFR > 60 (>60) mL/min BUN/Creatinine Ratio 32.5 H (6-22) Glucose 130 H (80-110) mg/dL Lactate 2.4 H 1.1 (0.7-2.1) mmol/L Calcium 9.3 (8.4-10.2) mg/dL Total Bilirubin 0.6 (0.2-1.3) mg/dL AST 27 (14-36) IU/L ALT 18 (<35) IU/L Alkaline Phosphatase 84 (38-126) U/L Total Creatine Kinase 23 L (30-135) U/L Troponin I 0.039 H (0.01-0.034) ng/mL NT-Pro-B Natriuret Pep 4710 H (<125) pg/mL Total Protein 8.6 H (6.3-8.2) g/dL Albumin 4.0 (3.5-5.0) g/dL Globulin 4.6 H (1.7-4.1) g/dL Albumin/Globulin Ratio 0.9 L (1.0-2.8) Lipase 63 (23-300) U/L Procalcitonin 0.05 (<0.5) ng/mL Urine Color Yellow Urine Appearance Clear Urine pH 8.0 (4.5-8.0) Ur Specific Brook 1.010 (1.000-1.035) Urine Protein Trace H (Negative) Urine Glucose (UA) Negative (Negative) g/dL Urine Ketones Negative (NEGATIVE) Urine Occult Blood Negative (Negative) Urine Nitrate Negative (Negative) Urine Bilirubin Negative (NEGATIVE) Urine Urobilinogen 0.2 (0.2) E.U./dL Ur Leukocyte Esterase 1+ H (NEGATIVE) Urine RBC None seen (0-5/HPF) Urine WBC 10-30/hpf H (0-5/HPF) Ur Squamous Epith Cells None seen (0-5/HPF) Urine Bacteria Many (>30) H (None) Ur Culture Indicated? Specimen cultured Chlamy pneumoniae PCR (Not Detect) Adenovirus (PCR) (Not Detect) B.parapertussis DNA PCR (Not Detecte) Coronavirus OC43 (PCR) (Not Detect) Coronavirus HKU1 (PCR) (Not Detect) Coronavirus 229E (PCR) (Not Detect) SARS-CoV-2 (PCR) (Not Detecte) Coronavirus NL63 (PCR) (Not Detect) Human Metapneumovir PCR (Not Detect) Influenza Type A (PCR) (Not Detect) Influenza Type B (PCR) (Not Detect) M. pneumoniae (PCR) (Not Detect) Parainfluenza 1 (PCR) (Not Detect) Parainfluenza 2 (PCR) (Not Detect) Parainfluenza 3 (PCR) (Not Detect) Parainfluenza 4 (PCR) (Not Detect) RSV (PCR) (Not Detect) Entero/Rhino (PCR) (Not Detect) 02/02/23 02/03/23 02/03/23 Range/Units 22:40 07:37 07:46 WBC 13.4 H (4.5-11.0) X10^3/uL RBC 3.77 L (4.0-5.2) X10^6/uL Hgb 10.4 L (12.0-16.0) g/dL Hct 32.6 L (36-46) % MCV 86.5 (80-100) fL MCH 27.6 (26-34) PG MCHC 31.9 (30-36) % RDW 19.2 H (11.6-14.8) % Plt Count 399 (150-400) X10^3/uL Neut % (Auto) 79.2 H (50-75) % Lymph % (Auto) 11.0 L (25-40) % Hettinger % (Auto) 9.2 (3-14) % Eos % (Auto) 0.0 L (2-4) % Baso % (Auto) 0.6 (0-2) % Neut # (Auto) 86195 H (9384-4161) /uL Lymph # (Auto) 1500 (3233-4110) /uL Hettinger # (Auto) 1200 H (0-900) /uL Eos # (Auto) 0 (0-450) /uL Baso # (Auto) 100 (0-100) /uL PT 23.0 H (10.1-12.7) SECONDS INR 2.0 H (0.9-1.3) APTT (26-36) SECONDS Sodium 133 L (137-145) mmol/L Potassium 4.4 (3.4-5.1) mmol/L Chloride 100 (98-107) mmol/L Carbon Dioxide 26 (22-32) mmol/L BUN 19 H (7-17) mg/dL Creatinine 0.70 (0.52-1.04) mg/dL Estimated GFR > 60 (>60) mL/min BUN/Creatinine Ratio 27.1 H (6-22) Glucose 188 H (80-110) mg/dL Lactate (0.7-2.1) mmol/L Calcium 8.9 (8.4-10.2) mg/dL Total Bilirubin (0.2-1.3) mg/dL AST (14-36) IU/L ALT (<35) IU/L Alkaline Phosphatase (38-126) U/L Total Creatine Kinase (30-135) U/L Troponin I 0.042 H 0.039 H (0.01-0.034) ng/mL NT-Pro-B Natriuret Pep (<125) pg/mL Total Protein (6.3-8.2) g/dL Albumin (3.5-5.0) g/dL Globulin (1.7-4.1) g/dL Albumin/Globulin Ratio (1.0-2.8) Lipase (23-300) U/L Procalcitonin (<0.5) ng/mL Urine Color Urine Appearance Urine pH (4.5-8.0) Ur Specific Brook (1.000-1.035) Urine Protein (Negative) Urine Glucose (UA) (Negative) g/dL Urine Ketones (NEGATIVE) Urine Occult Blood (Negative) Urine Nitrate (Negative) Urine Bilirubin (NEGATIVE) Urine Urobilinogen (0.2) E.U./dL Ur Leukocyte Esterase (NEGATIVE) Urine RBC (0-5/HPF) Urine WBC (0-5/HPF) Ur Squamous Epith Cells (0-5/HPF) Urine Bacteria (None) Ur Culture Indicated? Chlamy pneumoniae PCR Not detected (Not Detect) Adenovirus (PCR) Not detected (Not Detect) B.parapertussis DNA PCR Not detected (Not Detecte) Coronavirus OC43 (PCR) Not detected (Not Detect) Coronavirus HKU1 (PCR) Not detected (Not Detect) Coronavirus 229E (PCR) Not detected (Not Detect) SARS-CoV-2 (PCR) Not detected (Not Detecte) Coronavirus NL63 (PCR) Not detected (Not Detect) Human Metapneumovir PCR Not detected (Not Detect) Influenza Type A (PCR) Not detected (Not Detect) Influenza Type B (PCR) Not detected (Not Detect) M. pneumoniae (PCR) Not detected (Not Detect) Parainfluenza 1 (PCR) Not detected (Not Detect) Parainfluenza 2 (PCR) Not detected (Not Detect) Parainfluenza 3 (PCR) Not detected (Not Detect) Parainfluenza 4 (PCR) Not detected (Not Detect) RSV (PCR) Not detected (Not Detect) Entero/Rhino (PCR) Not detected (Not Detect) Point of Care Testing Glucose POC 124 MDM Narrative Medical decision making narrative: 72-year-old female with chronic hypoxic respiratory failure recurrent pneumonia, CHF who had a septal ablation at [facility] in December, is supposed to have a mitral valve. Patient's white count continues to be elevated is 18 was 17 unless visit hemoglobin 9.4 platelets are 506 creatinine and electrolytes are appropriate INR is 2.3 patient is on warfarin, lactate was 2.4- procalcitonin 0.05. BNP is 4700 fairly consistent with last visit, troponins 0.039. Chest x- ray shows possible right lower lobe pneumonia, patient has had recurrent pneumonias frequently CT chest was obtained. Patient family notes she had a recent sputum culture that was positive for Pseudomonas but could not have sensitivities done. They dropped off another 1 yesterday at [facility]. She is not had increasing respiratory difficulties but did have a temp of a 100.1? F at home. Was tachycardic here. Patient's EKG does show change from November but patient had a septal ablation in December so this is not totally unexpected. CT chest shows right lung consolidative and ground-glass opacities suspicious for pneumonia most pronounced at the inferior aspect. Aeration of the left lower lobe improved compared to prior CT. Patchy nonspecific consolidative opacities in left lower lobe could represent aspiration or pneumonia no large pleural effusion no pneumothorax. Mediastinal adenopathy is present as before. Multilevel degenerative change of the visualized spine. IVC filter partially imaged. Patient has had urinary symptoms she has trace protein, 1+ leuks, 10-30 WBCs no RBCs no squamous epithelials with many bacteria and was sent for culture. Case discussed with Infectious Disease, Dr. Zhang (patients regular ID physician): Does not recommend discharge. Suspects more likely infectious over cardiac. She would recommend transfer if they need to adjust medications as they have a larger formulary and we do not have inpatient cardiology if necessary or inpatient pulmonology. She recommends ceftazidime based on patients prior cultures as well as minocycline can give a 200 mg p.o. dose of minocycline and then they may adjust down to 100 mg dependent on how patient tolerates. Discussed with patient and family they feel comfortable with this plan. Called [facility], patient on waitlist may have openings in the am. Also called [facility] hospitalist patient had recent procedure in December with the ablation of her septum. They would be happy to see the patient but states unlikely to have bed availability for the next 48 hours. I spoke with Dr. Arreaga, hospitalist. Dr. Gracia 830am-patient signed out to me by Dr. Mckoy I have seen evaluated patient myself. She is awake alert oriented eating breakfast. I have seen her many times in the past she actually appears well. However obvious concern for ongoing infection suspicion for Pseudomonas pending sputum culture from yesterday. Infectious Disease actually called this morning to check on her recommended adding meropenem 2 g. They strongly encourage her to be transferred to [facility]. We have notified the supervisor plate forming they anticipate a bed hopefully later this afternoon. Blood work this morning has improved WBC went from 17 to 13, INR this morning 2.0, electrolytes stable troponin trending downwards. Respiratory panel is also negative. Dr. Solano at [facility] accepts patient Critical Care Time <Lalitha Gracia, - Last Filed: 02/03/23 12:58> Critical Care Time Critical Care Time: Yes Total Critical Care Time: 30 Attestation: The high probability of a clinically significant, sudden or life threatening deterioration of the [cardiovascular] system(s) required my full and direct attention, intervention and personal management. The aggregate critical care time was 30 minutes. This time is in addition to time spent performing reported procedures but includes the following: [x] Data Review and interpretation [x] Patient assessment and monitoring of vital signs [x] Documentation [x] Medication orders and management Discharge Plan Departure Patient Disposition: [facility] Clinical Impression: Chronic hypoxic respiratory failure, Pneumonia, CHF (congestive heart failure) Prescriptions: No Action polyethylene glycol 3350 [Miralax] 119 GM powder 17 gm PO DAILY PRN (Reason: Constipation) Qty: 0 ondansetron HCl [Zofran] 4 mg tablet 4 mg PO Q8H PRN (Reason: nausea and vomiting) Qty: 30 1RF (DME) insulin syringe-needle U-100 [BD Insulin Syringe Ultra-Fine] 0.5 mL 31 gauge x 5/16 syringe See Rx Instructions .ROUTE .MEDSUPPLY Qty: 100 1RF Rx Instructions: Use once a day as directed metformin 1,000 mg tablet 1,000 mg PO BID Qty: 180 0RF (DME) verio reflect glucometer Qty: 1 0RF Rx Instructions: As directed ferrous sulfate 325 mg (65 mg iron) tablet 325 mg PO BEDTIME tizanidine 4 mg capsule 4 mg PO QID PRN (Reason: Muscle Spasm) cholecalciferol (vitamin D3) 2,000 unit tablet 2,000 unit PO DAILY albuterol sulfate 90 mcg/actuation HFA aerosol inhaler 2 puff INHALATION Q4-6H PRN (Reason: Shortness Of Breath) lansoprazole [Prevacid 24Hr] 15 mg Capsule,Delayed Release(Dr/Ec) 30 mg PO BID fentanyl 25 mcg/hr patch 72 hour 1 patch transdermal Q72H PRN (Reason: pain (scale score 1-3)) Qty: 5 0RF Patient Comments: placed today at home omega-3 fatty acids Capsule 1,000 mg PO DAILY fluticasone propion-salmeterol [Advair Diskus] 500-50 mcg/dose Blister With Device 1 inh INHALATION Q12H Hizintra 15 g auto-injector 15 g SUBCUT QWEEK calcium carbonate 200 mg calcium (500 mg) Tablet,Chewable 1,000 mg PO Q4HR PRN (Reason: Dyspepsia) Qty: 60 0RF docusate sodium 100 mg Capsule 100 mg PO BID Qty: 60 0RF alum-mag hydroxide-simeth [Mag-Al Plus] 200-200-20 mg/5 mL Suspension 30 ml PO Q6HR PRN (Reason: Dyspepsia) Qty: 355 0RF sennosides [senna] 8.6 mg Tablet 17.2 mg PO BEDTIME Qty: 60 0RF potassium chloride 20 mEq/15 mL Liquid 20 meq PO BIDWM Qty: 250 0RF sodium chloride 3 % Solution For Nebulization 3 ml INHALATION BID Rx Instructions: use w/ nebulizer 2 x daily montelukast [Singulair] 10 mg Tablet 10 mg PO BEDTIME Zyrtec 10 mg Capsule 10 mg PO DAILY atorvastatin 40 mg Tablet 40 mg PO BEDTIME ipratropium-albuterol 0.5 mg-3 mg(2.5 mg base)/3 mL Solution For Nebulization 3 ml INHALATION BID Rx Instructions: and every 4 hours as needed levothyroxine 75 mcg Tablet 75 mcg PO QAM nortriptyline 25 mg Capsule 25 mg PO BEDTIME epinephrine [EpiPen] 0.3 mg/0.3 mL Auto-Injector 0.3 mg IM Q5-15M PRN (Reason: Allergic Reaction) Rx Instructions: do not exceed 3 doses per episode Spiriva with HandiHaler 18 mcg Capsule, W/Inhalation Device 1 cap INHALATION DAILY Rx Instructions: puncture 1 cap using device; one dose = 2 inhalations insulin glargine 100 unit/mL solution 30 unit SUBCUT QAM insulin lispro [Humalog KwikPen Insulin] 100 unit/mL insulin pen 4 - 8 unit SUBCUT TID pramipexole 0.5 mg tablet 0.5 mg PO BEDTIME fluticasone propion-salmeterol [Wixela Inhub] 500-50 mcg/dose Blister With Device 1 inh INHALATION BID duloxetine 30 mg Capsule,Delayed Release(Dr/Ec) 30 mg PO DAILY oxycodone-acetaminophen [Percocet] 10-325 mg Tablet 1 tab PO Q4H PRN (Reason: Pain (Scale Score 4-6)) Mucinex 1,200 mg Tablet Extended Release 12hr 1,200 mg PO BID clonidine HCl 0.1 mg tablet 0.05 mg PO BID prednisone 5 mg tablet 5 mg PO DAILY lawwlymzmz-dhkqvskpdafin-tazv 50-325-40 mg Tablet 1 tab PO Q6H PRN (Reason: Migraine Headache) oxycodone 5 mg Capsule 15 mg PO Q6H PRN (Reason: Pain (Scale Score 7-10)) oxymetazoline 0.05 % Drops 1 drp INTRANASAL BID PRN (Reason: Congestion) Fasenra 30 mg/mL Syringe 30 mg SUBCUT Q8W fentanyl 12 mcg/hr patch 72 hour 12 mcg transdermal SEEINSTR Patient Comments: apply 1 patch to CLEAN, DRY, AND INTACT SKIN every 72 hours Rx Instructions: Q72HR in addition to 25mcg patch warfarin 1 mg tablet 1 mg PO DAILY meropenem 2 gram 2 IV Q8HR Patient Comments: done with home infusions 10/28 furosemide 40 mg tablet 40 mg PO 0800 Referrals: Karin Porter MD [Primary Care Provider] -
[2023-02-02 21:05] LABS: NT-proBNP (BNP-Adult 18+) 4710 pg/mL (<125); Troponin I 0.039 ng/mL (0.01-0.034)
[2023-02-02 21:10] LABS: Procalcitonin 0.05 ng/mL (<0.5)
[2023-02-02 21:28] LABS: HEMOLYSIS 75 (0-50)
[2023-02-02 21:35] LABS: Appearance Urine UA CLEAR; Bilirubin Urine UA NEGATIVE (NEGATIVE); Color Urine UA YELLOW; Glucose Urine UA NEGATIVE (Negative); Ketones Urine UA NEGATIVE (NEGATIVE); Leukocyte Esterase Urine UA 1+ (NEGATIVE); Nitrite Urine UA NEGATIVE (Negative); Occult Blood Urine UA NEGATIVE (Negative); Protein Urine UA TRACE (Negative); Urobilinogen Urine UA 0.2 E.U./dL (0.2)
[2023-02-02 21:54] LABS: Bacteria Urine Many (>30); RBC Urine None Seen (0-5/HPF); WBC Urine 10-30/HPF (0-5/HPF)
[2023-02-02 21:55] LABS: Culture Indicated Urine Specimen Cultured; Squamous Epithelial Cell Urine None Seen (0-5/HPF)
--- NOTE | 2023-02-02 22:04 | DI.CT.S_ITS ---
PROCEDURE: CT CHEST W CON INDICATIONS: Fever, sputum, Hx of recurrent pneumonia. TECHNIQUE: After the administration of intravenous contrast, 5 mm thick sections acquired from the pulmonary apices to the posterior costophrenic angles. 1 mm axial lung, 5 mm thick coronal and sagittal reformats and 7 mm axial MIP were acquired. For radiation dose reduction, the following was used: automated exposure control, adjustment of mA and/or kV according to patient size. COMPARISON: [facility], CR, XR CHEST 1V, 02/02/2023, 20:08. [facility], CT, CT CHEST WITH CONTRAST, 11/16/2022, 10:55. [facility], CT, CT CHEST W CON, 06/09/2020, 13:45. FINDINGS: Lungs and pleura: Patchy consolidative and ground-glass opacities present most pronounced at the inferior aspect of the right upper lobe. Aeration of the left lower lobe has improved compared to the prior CT. Patchy nonspecific consolidative opacities also demonstrated in the left lower lobe but could represent aspiration or pneumonia. No large pleural effusion. No pneumothorax. Mediastinum: Mediastinal adenopathy is present as before Bones and chest wall: Multilevel degenerative change of the visualized spine. Abdomen: IVC filter partially imaged IMPRESSION: Right lung consolidative and ground-glass opacity suspicious for pneumonia other findings as above Dictated by: Syed Caballero M.D. on 02/02/2023 at 23:47 Approved by: Syed Caballero M.D. on 02/02/2023 at 23:53
[2023-02-02 22:10] LABS: Reflexed Lactate in 2 Hours Y
[2023-02-02 22:44] LABS: Lactate 2HR (Lactic Acid Rflx) 1.1 mmol/L (0.7-2.1)
[2023-02-02] MEDS: CIPROFLOXACIN 400 MG/200 ML PIGGYBACK 200 MG IV (23:02)
[2023-02-02 23:11] LABS: Troponin I 0.042 ng/mL (0.01-0.034)
[2023-02-03] VITALS (35 sets, daily range): BP systolic 110–187; BP diastolic 57–106; PULSE 93–110; RESP 21–36; O2SAT 93–100
[2023-02-03] MEDS: MINOCYCLINE HCL 100 MG CAPSULE 200 MG PO ×2 (00:40→08:30)
[2023-02-03] MEDS: ALBUTEROL/IPRATROPIUM 3 ML AMPUL INH ×3 (04:48→09:31)
[2023-02-03] MEDS: TORSEMIDE 10 MG TABLET 40 MG PO (05:31)
[2023-02-03] MEDS: OXYCODONE IR 5 MG TABLET 15 MG PO (06:56)
[2023-02-03 07:56] LABS: Add Manual Diff / Slide Review NO; Basophils Absolute Auto 100 /uL (0-100); Basophils Percent Auto 0.6 % (0-2); Eosinophils Absolute Auto 0 /uL (0-450); Hematocrit 32.6 % (36-46); Hemoglobin 10.4 g/dL (12.0-16.0); Lymphocytes Absolute Auto 1500 /uL (1100-4500); Mean Corpuscular HGB Conc 31.9 % (30-36); Mean Corpuscular Hemoglobin 27.6 PG (26-34); Mean Corpuscular Volume 86.5 fL (80-100); Monocytes Absolute Auto 1200 /uL (0-900); Monocytes Percent Auto 9.2 % (3-14); Neutrophils Absolute Auto 10600 /uL (1500-7000); Neutrophils Percent Auto 79.2 % (50-75); Platelet Count 399 X10^3/uL (150-400); Red Blood Cell Count 3.77 X10^6/uL (4.0-5.2); Red Cell Distribution Width 19.2 % (11.6-14.8); White Blood Cell Count 13.4 X10^3/uL (4.5-11.0)
[2023-02-03 08:08] LABS: BUN Creatinine Ratio 27.1 (6-22); Blood Urea Nitrogen 19 mg/dL (7-17); Calcium 8.9 mg/dL (8.4-10.2); Carbon Dioxide 26 mmol/L (22-32); Chloride 100 mmol/L (98-107); Estimated Glomerular Filt Rate > 60 mL/min (>60); Glucose 188 mg/dL (80-110); HEMOLYSIS 35 (0-50); Potassium 4.4 mmol/L (3.4-5.1); Sodium 133 mmol/L (137-145)
[2023-02-03 08:20] LABS: Troponin I 0.039 ng/mL (0.01-0.034)
[2023-02-03] MEDS: METOPROLOL ER 25 MG TABLET 12.5 MG PO (08:30)
[2023-02-03] MEDS: cloNIDine 0.1 MG TABLET PO (08:31)
[2023-02-03] MEDS: predniSONE 5 MG TABLET PO (08:31)
[2023-02-03] MEDS: SPIRONOLACTONE 25 MG TABLET PO (08:31)
[2023-02-03] MEDS: INSULIN LISPRO 100 UNIT/ML 3ML VIAL SUBCUT (08:41)
[2023-02-03] MEDS: MEROPENEM 2,000 MG in SODIUM CHLORIDE 0.9% 100 ML 200 MG IV (08:50)
[2023-02-03 08:57] LABS: Adenovirus Not Detected (Not Detect); B. parapertussis Not Detected (Not Detecte); Bordetella pertussis Not Detected (Not Detect); Chlamydophila pneumoniae Not Detected (Not Detect); Coronavirus 229E Not Detected (Not Detect); Coronavirus HKU1 Not Detected (Not Detect); Coronavirus NL 63 Not Detected (Not Detect); Coronavirus OC43 Not Detected (Not Detect); Human Metapneumovirus Not Detected (Not Detect); Human Rhinovirus/Enterovirus Not Detected (Not Detect); Influenza A Not Detected (Not Detect); Influenza B Not Detected (Not Detect); Mycoplasma pneumoniae Not Detected (Not Detect); Parainfluenza Virus 1 Not Detected (Not Detect); Parainfluenza Virus 2 Not Detected (Not Detect); Parainfluenza Virus 3 Not Detected (Not Detect); Parainfluenza Virus 4 Not Detected (Not Detect); Respiratory Syncytial Virus Not Detected (Not Detect); SARS- CoV-2 Not Detected (Not Detecte)
--- NOTE | 2023-02-03 09:36 | RT ---
PT APPEARS W/ FLUID OVERLOAD. NO NOTABLE CHANGES POST NEB.
[2023-02-03 23:31] LABS: Acinetobacter calcoa-baumannii Not Detected (Not Detect); Bacteroides fragilis Not Detected (Not Detect); Candida albicans Not Detected (Not Detect); Candida auris Not Detected (Not Detect); Candida glabrata Not Detected (Not Detect); Candida krusei Not Detected (Not Detect); Candida parapsilosis Not Detected (Not Detect); Candida tropicalis Not Detected (Not Detect); Cryptococcus neoformans/gatti Not Detected (Not Detect); Enterobacter cloacae complex Not Detected (Not Detect); Enterobacterales Not Detected (Not Detect); Enterococcus faecalis Not Detected (Not Detect); Enterococcus faecium Not Detected (Not Detect); Haemophilus influenzae Not Detected (Not Detect); Klebsiella aerogenes Not Detected (Not Detect); Listeria monocytogenes Not Detected (Not Detect); Neisseria meningitidis Not Detected (Not Detect); Proteus species Not Detected (Not Detect); Pseudomonas aeruginosa Not Detected (Not Detect); Salmonella species Not Detected (Not Detect); Serratia marcescens Not Detected (Not Detect); Staphylococcus lugdunensis Not Detected (Not Detect); Staphylococcus species Detected (Not Detect); Stenotrophomonas maltophilia Not Detected (Not Detect); Streptococcus agalactiae (Gr B Not Detected (Not Detect); Streptococcus pneumonia Not Detected (Not Detect); Streptococcus pyogenes (Gr A) Not Detected (Not Detect); Streptococcus species Not Detected (Not Detect); mecA/C Resistance Detected (Not Detect)
[2023-02-03 23:52] LABS: Staphylococcus epidermidis Detected (Not Detect)
== END 2023-02-03 12:49 | disposition short-term general hospital (02) ==
PROVIDERS: Emergency Medicine; Emergency Provider Emergency Medicine; Family Provider Internal Medicine Infectious Disease; PCP Internal Medicine
DX: J96.11 Chronic respiratory failure with hypoxia (principal); I50.9 Heart failure, unspecified; J18.9 Pneumonia, unspecified organism; Z79.899 Other long term (current) drug therapy; Z79.01 Long term (current) use of anticoagulants
CPT/HCPCS: 36415; 71045; 71260; 80048; 80053; 81001; 82550; 82962; 83605; 83690; 83880; 84145; 84484; 85025; 85610; 85730; 87040; 87077; 87086; 87154; 87186; 87633; 93005; 93010; 94640; 96361; 96365; 96367; 96368; 96372; 99285; 99291; J0713; J0744; J1815; J2185

== ENCOUNTER 2023-04-08 13:08 | Inpatient (IN) | payer OTHER, SELFPAY ==
[2022-10-13 14:55] VITALS: BMI 41.4
[2022-12-06 11:11] VITALS: PULSE 103; RESP 36; O2SAT 97
[2023-04-08] VITALS (137 sets, daily range): BP systolic 96–131; BP diastolic 46–79; PULSE 77–97; RESP 10–50; TEMP 31–38.7; O2SAT 88–99; BMI 35.1
--- NOTE | 2023-04-08 13:14 | DI.RAD.S_ITS ---
PROCEDURE: XR CHEST 1V INDICATIONS: diff breathing, altered, hx lung disease. TECHNIQUE: One view of the chest was acquired. COMPARISON: [facility], CR, XR CHEST 1V, 02/02/2023, 20:08. [facility], CR, XR CHEST 1V, 12/06/2022, 9:59. FINDINGS: Surgical changes and devices: None. Lungs and pleura: Low lung volumes. Mild bibasal opacities again seen, slightly decreased. Mediastinum: Heart size is at the upper limit of normal. Aortic and vascular calcifications. Bones and chest wall: Degenerative changes. IMPRESSION: Single view radiograph with low lung volumes limiting evaluation. Possible bibasilar opacities may be infectious/inflammatory or atelectasis, slightly decreased compared to January 2023. Consider future imaging surveillance to assess for resolution. Dictated by: Yohannes Cueto M.D. on 04/08/2023 at 14:26 Approved by: Yohannes Cueto M.D. on 04/08/2023 at 14:27
--- NOTE | 2023-04-08 13:17 | ED_ITS ---
HPI - SOB/Dyspnea General Chief Complaint: Shortness of Breath/Dyspnea Stated Complaint: pneumonia Time Seen by Provider: 04/08/23 13:14 Source: EMS Mode of arrival: EMS Limitations: altered mental status History of Present Illness HPI Narrative: 73-year-old female nonsmoker, history of CHF, chronic respiratory failure on 5 L home O2, DVT on warfarin with IVC filter, prior pulmonary emboli in October 2021, diabetes, sleep apnea, hypothyroid, history of adrenal insufficiency, hypertension, dyslipidemia, fibromyalgia and GERD presents with complaint of difficulty with breathing and decreased mental status. Per report patient was normal last. Unclear if patient was normal this morning but had decreased mentation and difficulty with breathing. Patient can indicate that she short of, can answer yes no indicates some answers unable to give full review of systems. Was seen in November for pneumonia and transferred at that time home and infectious disease as patient has complicated medical history patient was on BiPAP. Related Data Home Medications Medication Instructions Recorded Confirmed polyethylene glycol 3350 17 17 gm PO DAILY PRN Constipation ##0 06/06/17 10/13/22 gram/dose oral powder (Miralax) albuterol sulfate 90 mcg/actuation 2 puff inhalation Q4-6H PRN 05/29/19 04/08/23 aerosol inhaler Shortness Of Breath cholecalciferol (vitamin D3) 50 2,000 unit PO DAILY 05/29/19 04/08/23 mcg (2,000 unit) tablet ferrous sulfate 325 mg (65 mg 325 mg PO BEDTIME 05/29/19 04/08/23 iron) tablet tizanidine 4 mg capsule 4 mg PO QID PRN Muscle Spasm 05/29/19 04/08/23 sodium chloride 3 % for 3 ml inhalation BID 06/05/19 10/13/22 nebulization cetirizine 10 mg capsule (Zyrtec) 10 mg PO DAILY allergies 01/20/20 04/08/23 montelukast 10 mg tablet 10 mg PO BEDTIME 01/20/20 04/08/23 (Singulair) atorvastatin 40 mg tablet 40 mg PO BEDTIME 04/20/21 04/08/23 epinephrine 0.3 mg/0.3 mL 0.3 mg IM Q5-15M PRN Allergic 04/20/21 04/08/23 injection, auto-injector (EpiPen) Reaction insulin glargine 100 unit/mL 30 unit SUBCUT QAM 04/20/21 04/08/23 subcutaneous solution insulin lispro 100 unit/mL 4 - 8 unit SUBCUT TID 04/20/21 04/08/23 subcutaneous pen (Humalog KwikPen (U-100) Insulin) ipratropium 0.5 mg-albuterol 3 mg 3 ml inhalation BID 04/20/21 10/13/22 (2.5 mg base)/3 mL nebulization soln levothyroxine 75 mcg tablet 75 mcg PO QAM 04/20/21 04/08/23 nortriptyline 25 mg capsule 25 mg PO BEDTIME 04/20/21 04/08/23 tiotropium bromide 18 mcg capsule 1 cap inhalation DAILY 04/20/21 04/08/23 with inhalation device (Spiriva with HandiHaler) lansoprazole 15 mg capsule,delayed 30 mg PO BID 04/29/21 04/08/23 release (Prevacid 24Hr) duloxetine 30 mg capsule,delayed 30 mg PO DAILY 06/28/21 04/08/23 release fluticasone 500 mcg-salmeterol 50 1 inh inhalation BID 06/28/21 10/13/22 mcg/dose blistr powdr for inhalation (Wixela Inhub) guaifenesin 1,200 mg tablet, 1,200 mg PO BID 06/28/21 04/08/23 extended release 12 hr (Mucinex) oxycodone-acetaminophen 10 mg-325 1 tab PO Q4H PRN Pain (Scale Score 06/28/21 10/13/22 mg tablet (Percocet) 4-6) pramipexole 0.5 mg tablet 0.5 mg PO BEDTIME 06/28/21 04/08/23 omega-3 fatty acids 1,000 mg PO DAILY 04/24/22 10/13/22 benralizumab 30 mg/mL subcutaneous 30 mg SUBCUT Q8W 06/03/22 04/08/23 syringe (Fasenra) [id number] 1 tab PO Q6H PRN Migraine Headache 06/03/22 10/13/22 50 mg-325 mg-40 mg tablet clonidine HCl 0.1 mg tablet 0.05 mg PO BID 06/03/22 04/08/23 oxycodone 5 mg capsule 15 mg PO Q6H PRN Pain (Scale Score 06/03/22 04/08/23 7-10) oxymetazoline 0.05 % nasal drops 1 drp intranasal BID PRN Congestion 06/03/22 10/13/22 prednisone 5 mg tablet 5 mg PO DAILY 06/03/22 04/08/23 Hizintra 15 g SUBCUT QWEEK 08/25/22 04/08/23 fluticasone 500 mcg-salmeterol 50 1 inh inhalation Q12H 08/25/22 04/08/23 mcg/dose blistr powdr for inhalation (Advair Diskus) fentanyl 12 mcg/hr transdermal 12 mcg transdermal SEEINSTR 10/13/22 04/08/23 patch warfarin 1 mg tablet 1 mg PO DAILY 10/13/22 04/08/23 furosemide 40 mg tablet 40 mg PO 0800 10/27/22 meropenem 2 IV Q8HR PNA 10/27/22 magnesium oxide 400 mg PO BID 04/08/23 04/08/23 metoprolol succinate 25 mg 12.5 mg PO DAILY 04/08/23 04/08/23 tablet,extended release 24 hr spironolactone 25 mg tablet 12.5 mg PO DAILY 04/08/23 04/08/23 torsemide 20 mg tablet 20 mg PO BID 04/08/23 04/08/23 Previous Rx's Medication Instructions Recorded ondansetron HCl 4 mg tablet 4 mg PO Q8H PRN nausea and 10/06/19 (Zofran) vomiting #30 tabs verio reflect glucometer #1 ea 01/28/20 insulin syringe-needle U-100 0.5 #100 ea 03/30/20 mL 31 gauge x 5/16 (BD Insulin Syringe Ultra-Fine) metformin 1,000 mg tablet 1,000 mg PO BID #180 tabs 09/03/20 fentanyl 25 mcg/hr transdermal 1 patch transdermal Q72H PRN pain 02/05/22 patch (scale score 1-3) #5 ea aluminum-mag hydroxide-simethicone 30 ml PO Q6HR PRN Dyspepsia #355 mL 08/28/22 200 mg-200 mg-20 mg/5 mL oral susp (Mag-Al Plus) calcium carbonate 200 mg calcium 1,000 mg (5 x 200 mg calcium (500 08/28/22 (500 mg) chewable tablet mg)) PO Q4HR PRN Dyspepsia #60 tabs docusate sodium 100 mg capsule 100 mg PO BID #60 caps 08/28/22 potassium chloride 20 mEq/15 mL 20 meq (15 mL) PO BIDWM #250 mL 08/28/22 oral liquid sennosides 8.6 mg tablet (senna) 17.2 mg (2 x 8.6 mg) PO BEDTIME 08/28/22 #60 tabs Allergies Allergy/AdvReac Type Severity Reaction Status Date / Time piperacillin [From Zosyn] Allergy Severe Rash Verified 04/08/23 17:46 tazobactam [From Zosyn] Allergy Severe Rash Verified 04/08/23 17:46 hydroxychloroquine Allergy Unknown Verified 04/08/23 13:14 [HYDROXYCHLOROQUINE] cefepime AdvReac Intermediate pruritis Verified 04/08/23 13:14 promethazine [From Phenergan] AdvReac Agitated Verified 04/08/23 13:14 Review of Systems Review of Systems ROS Unobtainable: Unobtainable due to mental status/LOC Patient History Medical History Anticoagulated Pneumonia Wears glasses Eczema Osteoarthritis Bronchiectasis (~2006) Sleep apnea Asthma (~1959) Abnormal chest xray (~1979) Restless leg syndrome Migraines (~1965) Shoulder pain (~03/2018) Osteopenia Degenerative joint disease of spine (~2001) Foot pain Fibromyalgia Chronic back pain Cervical spine disease Ankle pain MRSA (methicillin resistant Staphylococcus aureus) (~2002) Anemia Hoarseness Recurrent sinusitis (~1970) Colon polyps (~2015) Hypothyroidism Diabetes mellitus, type II (~2009) Hypertension Hyperlipidemia Nail bed carcinoma Pneumonia Surgical History Anesthesia History of thumb surgery History of carpal tunnel release History of spinal fusion (~2012) History of laminectomy (~2002) History of section History of cataract removal with insertion of prosthetic lens (~2014) Family History Father Stroke Mother Hypertension Brother Cerebral aneurysm Prostate cancer Diabetes mellitus Hypertension Stroke Brother Arthritis Hyperlipidemia Hypertension Sister History of kidney cancer Hypertension Grandfather Cancer Grandmother Cancer Other Family history non-contributory Social History marital status: household members: spouse lives independently: Yes occupational status: previously employed Smoking Status: Never smoker alcohol intake: current substance use type: does not use Smoking Status: Never smoker alcohol intake frequency: holidays/special occasions only Substance Use Type: does not use Exam Narrative Exam Narrative: GEN: Obese elderly appearing female, alert and oriented to self and location, patient appears to be in moderate to severe distress. HEENT: Atraumatic, pupils are equal round reactive to light, extraocular movements are intact, nares are clear, there is no conjunctival pallor. Throat is clear without any exudates, erythema, tonsillar enlargement or uvular deviation, patient has very dry mucous membranes, also has some thick yellow tenacious sputum in her mouth. HEART: Regular rate and rhythm without murmur, clicks, rubs. Pulses are equal in upper and lower extremities LUNGS:Lungs slightly decreased bilaterally, no wheezes, rales, crackles, chest moves symmetrically, no tachypnea. Patient does not appear to have increased work of breathing. Arrived on CPAP with EMS, when transferred over about 88-90% RA during transfer over to ER Bipap. ABD:bowel sounds normal, soft, non-tender, no guarding, rebound, rigidity, no masses noted, no hepatosplenomegaly :No CVA tenderness MSCL: Non-tender, patient has warmth some erythema and chronic venous stasis changes bilateral lower extremities but no edema. No muscle atrophy, muscles strength 5/5 upper and lower extremities, full range of motion, normal gait NEURO:CN 2-12 intact, sensation normal Initial Vital Signs Initial Vital Signs: Vital Signs Pulse Rate 97 H 04/08/23 13:08 Respiratory Rate 22 04/08/23 13:08 Blood Pressure 131/79 04/08/23 13:08 Pulse Oximetry 90 L 04/08/23 13:08 Oxygen Delivery Method CPAP 04/08/23 13:08 Scores GCS [place] coma scale eye opening: To sound [place] coma scale verbal response: Orientated [place] coma scale motor response: Obey commands [place] coma scale total score: 14 Course Orders Ordered: ED Orders 04/08/23 13:14 XR chest 1V Stat 04/08/23 13:15 Respiratory Panel (Film Array) Stat Sputum Culture Stat 04/08/23 13:25 ABG [Arterial Blood Gas] Stat 04/08/23 13:30 Urinalysis and Microscopic Stat Urine Culture Stat 04/08/23 13:50 Complete Blood Count AUTO DIFF Stat Comprehensive Metabolic Panel Stat Lactate (Lactic Acid) Stat NT-proBNP (BNP-Adult 18+) Stat PTT Partial Thromboplastin Luke Stat Procalcitonin Stat Prothrombin Time INR Stat Troponin & CK Cardiac Panel Stat EKG-12 Lead Stat 04/08/23 14:00 Blood Culture Stat Acetaminophen (Acetaminophen 325 Mg Tablet) 650 mg PO Q6H PRN PRN Reason: Fever/Mild Pain (1-3) Acetaminophen/Butalbital/Caffeine (Butalb/Apap/Caffeine 50/325/40 Tablet) 1 each PO Q6H PRN PRN Reason: Migraine Headache Albuterol (Albuterol 2.5 Mg/3 Ml Neb (Adult)) 2.5 mg INH [id number] PRN PRN Reason: Shortness Of Breath Albuterol/Ipratropium (Albuterol/Ipratropium 3 Ml Ampul) 3 ml INH [id number] [facility] Atorvastatin Calcium (Atorvastatin 20 Mg Tablet) 40 mg PO BEDTIME [facility] Budesonide (Budesonide 0.5 Mg/2 Ml Neb) 0.5 mg INH RTBID [facility] Clonidine HCl (Clonidine 0.1 Mg Tablet) 0.05 mg PO BID [facility] Dexamethasone (Dexamethasone 10 Mg/Ml Vial) 6 mg IV DAILY [facility] Stop: 04/17/23 09:01 Docusate Sodium (Docusate 100 Mg Capsule) 100 mg PO BID [facility] Duloxetine HCl (Duloxetine 30 Mg Capsule) 30 mg PO DAILY [facility] Fentanyl (Fentanyl 12 Mcg/Patch) 12 mcg TOP SEEINSTR [facility] Fentanyl (Fentanyl 25 Mcg/Patch) mcg TOP Q72H PRN PRN Reason: pain (scale score 1-3) Guaifenesin (Guaifenesin Er 600 Mg Tab) 1,200 mg PO BID [facility] Remdesivir 100 mg/ Sodium (Chloride) 250 mls @ 250 mls/hr IV DAILY [facility] Stop: 04/12/23 09:59 Dextrose (D10w) 100 mls @ 1,200 mls/hr IV PRN PRN PRN Reason: Hypoglycemia Levofloxacin (Levaquin) 750 mg in 150 mls @ 100 mls/hr IV Q24H [facility] Insulin Human Lispro (Insulin Lispro 100 Unit/Ml 3ml Vial) 0 unit SUBCUT ACHS [facility]; Protocol Levothyroxine Sodium (Levothyroxine 75 Mcg Tablet) 75 mcg PO QAM [facility] Metoprolol Succinate (Metoprolol Er 25 Mg Tablet) 12.5 mg PO DAILY [facility] Montelukast Sodium (Montelukast 10 Mg Tablet) 10 mg PO BEDTIME [facility] Naloxone HCl (Naloxone 0.4 Mg/Ml Vial) 0.2 mg IV Q2MIN PRN PRN Reason: Opiate Reversal Non-Formulary Medication (Magnesium Oxide) 400 mg PO BID [facility] Non-Formulary Medication (Insulin Glargine) 30 unit SUBCUT BEDTIME [facility] Non-Formulary Medication (Lansoprazole [Prevacid 24hr]) 30 mg PO BID [facility] Nortriptyline HCl (Nortriptyline Hcl 25 Mg Capsule) 25 mg PO BEDTIME [facility] Oxycodone HCl (Oxycodone Ir 5 Mg Tablet) 15 mg PO Q4HR PRN PRN Reason: pain Polyethylene Glycol (Polyethylene Glycol 3350 17 Gm Powd.Pack) 17 gm PO DAILY PRN PRN Reason: Constipation Potassium Chloride (Potassium Chloride 20 Meq Tab) 40 meq PO BIDWM [facility] Pramipexole Dihydrochloride (Pramipexole 0.25 Mg Tablet) 0.5 mg PO BEDTIME [facility] Prednisone (Prednisone 5 Mg Tablet) 5 mg PO DAILY [facility] Sennosides (Sennosides 8.6 Mg Tablet) 17.2 mg PO BEDTIME [facility] Spironolactone (Spironolactone 25 Mg Tablet) 12.5 mg PO DAILY [facility] Tizanidine HCl (Tizanidine 4 Mg Tablet) 4 mg PO QID PRN PRN Reason: Muscle Spasm Torsemide (Torsemide 10 Mg Tablet) 40 mg PO DAILY [facility] Warfarin Sodium (Warfarin 1 Mg Tablet) 1 mg PO DAILY [facility] Discontinued Medications Dexamethasone (Dexamethasone 10 Mg/Ml Vial) 6 mg IV NOW ONE Stop: 04/08/23 14:47 Last Admin: 04/08/23 15:01 Dose: 6 mg Documented By: CHARLES Doxycycline Hyclate (Doxycycline Hyclate 100 Mg Tablet) 100 mg PO BID [facility] Fentanyl (Fentanyl 100 Mcg/2 Ml Inj) 50 mcg IV NOW ONE Stop: 04/08/23 15:17 Last Admin: 04/08/23 15:21 Dose: 50 mcg Documented By: CHARLES Acetaminophen (Ofirmev) 1,000 mg in 100 mls @ 400 mls/hr IV NOW ONE Stop: 04/08/23 13:56 Last Infusion: 04/08/23 14:21 Dose: Infused Documented By: Admin: 04/08/23 13:45 Dose: 400 mls/hr Documented By: CHARLES Levofloxacin (Levaquin) 750 mg in 150 mls @ 100 mls/hr IV NOW ONE Stop: 04/08/23 15:30 Last Infusion: 04/08/23 15:49 Dose: Infused Documented By: Admin: 04/08/23 14:20 Dose: 100 mls/hr Documented By: CHARLES Sodium Chloride (Normal Saline 0.9%) 1,000 mls @ 1,000 mls/hr IV BOLUS ONE Stop: 04/08/23 15:42 Last Infusion: 04/08/23 17:00 Dose: Infused Documented By: Admin: 04/08/23 14:53 Dose: 1,000 mls/hr Documented By: CHARLES Remdesivir 200 mg/ Sodium (Chloride) 250 mls @ 250 mls/hr IV NOW ONE Stop: 04/08/23 15:45 Last Infusion: 04/08/23 17:00 Dose: Infused Documented By: Admin: 04/08/23 15:36 Dose: 250 mls/hr Documented By: CHARLES Ibuprofen (Ibuprofen 400 Mg Tablet) 800 mg PO NOW ONE Stop: 04/08/23 15:25 Last Admin: 04/08/23 15:41 Dose: Not Given Documented By: CHARLES Methylprednisolone (Methylprednisolone 125 Mg/2 Ml Vial) 125 mg IV NOW ONE Stop: 04/08/23 13:17 Last Admin: 04/08/23 13:40 Dose: 125 mg Documented By: CHARLES Vital Signs Vital signs: Vital Signs - 8 hr 04/08/23 13:08 04/08/23 13:10 04/08/23 13:15 Temperature Pulse Rate 97 H 96 H Respiratory Rate 22 25 H Blood Pressure 131/79 131/79 Pulse Oximetry 90 L 96 Oxygen Delivery Method CPAP Oxygen Flow Rate Fraction of Inspired Oxygen 40 04/08/23 13:17 04/08/23 13:20 04/08/23 13:25 Temperature Pulse Rate 95 H 96 H Respiratory Rate 22 31 H Blood Pressure Pulse Oximetry 97 95 94 Oxygen Delivery Method CPAP Oxygen Flow Rate Fraction of Inspired Oxygen 04/08/23 13:30 04/08/23 13:35 04/08/23 13:40 Temperature Pulse Rate 94 H 94 H 95 H Respiratory Rate 30 H 32 H 33 H Blood Pressure Pulse Oximetry 94 96 96 Oxygen Delivery Method Oxygen Flow Rate Fraction of Inspired Oxygen 04/08/23 13:45 04/08/23 13:50 04/08/23 13:54 Temperature 101.1 F H 101.3 F H Pulse Rate 96 H 92 H 93 H Respiratory Rate 30 H 25 H 31 H Blood Pressure Pulse Oximetry 95 97 96 Oxygen Delivery Method CPAP Oxygen Flow Rate Fraction of Inspired Oxygen 04/08/23 13:54 04/08/23 13:55 04/08/23 14:00 Temperature 101.3 F H 101.5 F H Pulse Rate 93 H 91 H Respiratory Rate 31 H 24 Blood Pressure 110/72 Pulse Oximetry 96 94 Oxygen Delivery Method Oxygen Flow Rate Fraction of Inspired Oxygen 04/08/23 14:00 04/08/23 14:05 04/08/23 14:10 Temperature 101.5 F H 101.5 F H Pulse Rate 90 93 H Respiratory Rate 26 H 27 H Blood Pressure 116/60 Pulse Oximetry 95 97 Oxygen Delivery Method Oxygen Flow Rate Fraction of Inspired Oxygen 04/08/23 14:15 04/08/23 14:20 04/08/23 14:25 Temperature 101.5 F H 101.7 F H 101.7 F H Pulse Rate 91 H 91 H 90 Respiratory Rate 24 21 22 Blood Pressure Pulse Oximetry 97 96 94 Oxygen Delivery Method Oxygen Flow Rate Fraction of Inspired Oxygen 04/08/23 14:30 04/08/23 14:31 04/08/23 14:31 Temperature 101.7 F H 101.7 F H Pulse Rate 90 90 Respiratory Rate 22 23 Blood Pressure 104/46 L Pulse Oximetry 96 97 Oxygen Delivery Method Oxygen Flow Rate Fraction of Inspired Oxygen 04/08/23 14:35 04/08/23 14:40 04/08/23 14:45 Temperature 101.7 F H 101.7 F H 101.7 F H Pulse Rate 90 91 H 91 H Respiratory Rate 22 24 23 Blood Pressure Pulse Oximetry 95 96 96 Oxygen Delivery Method Oxygen Flow Rate Fraction of Inspired Oxygen 04/08/23 14:50 04/08/23 14:55 04/08/23 15:00 Temperature 101.5 F H 101.5 F H 101.5 F H Pulse Rate 93 H 91 H 89 Respiratory Rate 30 H 28 H 28 H Blood Pressure Pulse Oximetry 95 94 94 Oxygen Delivery Method Oxygen Flow Rate Fraction of Inspired Oxygen 04/08/23 15:01 04/08/23 15:01 04/08/23 15:05 Temperature 101.5 F H 101.3 F H Pulse Rate 89 88 Respiratory Rate 26 H 26 H Blood Pressure 105/52 L Pulse Oximetry 95 95 Oxygen Delivery Method Oxygen Flow Rate Fraction of Inspired Oxygen 04/08/23 15:10 04/08/23 15:15 04/08/23 15:20 Temperature 101.3 F H 101.1 F H 101.1 F H Pulse Rate 88 90 87 Respiratory Rate 29 H 21 25 H Blood Pressure Pulse Oximetry 95 95 95 Oxygen Delivery Method Oxygen Flow Rate Fraction of Inspired Oxygen 04/08/23 15:25 04/08/23 15:40 04/08/23 15:45 Temperature 100.9 F H 100.6 F H 100.4 F H Pulse Rate 87 91 H 92 H Respiratory Rate 19 30 H 30 H Blood Pressure Pulse Oximetry 93 93 91 Oxygen Delivery Method Oximask Oxygen Flow Rate 10 Fraction of Inspired Oxygen 04/08/23 15:50 04/08/23 15:55 04/08/23 16:00 Temperature 100.4 F H 100.2 F H 100.0 F H Pulse Rate 91 H 90 90 Respiratory Rate 29 H 22 22 Blood Pressure Pulse Oximetry 91 89 L 90 L Oxygen Delivery Method Oxygen Flow Rate Fraction of Inspired Oxygen 04/08/23 16:00 04/08/23 16:05 04/08/23 16:10 Temperature 100.0 F H 99.9 F H Pulse Rate 91 H 86 Respiratory Rate 30 H 17 Blood Pressure 100/54 L Pulse Oximetry 88 L 91 Oxygen Delivery Method Nasal Cannula Oxygen Flow Rate Fraction of Inspired Oxygen 04/08/23 16:15 04/08/23 16:15 04/08/23 16:20 Temperature 99.9 F H 99.9 F H Pulse Rate 84 84 Respiratory Rate 10 L 23 Blood Pressure 100/54 L Pulse Oximetry 92 93 Oxygen Delivery Method CPAP Oxygen Flow Rate Fraction of Inspired Oxygen 40 04/08/23 16:25 04/08/23 16:30 04/08/23 16:30 Temperature 99.7 F H 99.7 F H Pulse Rate 84 84 Respiratory Rate 27 H 22 Blood Pressure 104/52 L Pulse Oximetry 91 92 Oxygen Delivery Method Oxygen Flow Rate Fraction of Inspired Oxygen MDM - SOB/Dyspnea Lab Data 04/08/23 13:50 04/08/23 13:50 Labs: Lab Results 04/08/23 04/08/23 04/08/23 Range/Units 13:15 13:25 13:30 WBC (4.5-11.0) X10^3/uL RBC (4.0-5.2) X10^6/uL Hgb (12.0-16.0) g/dL Hct (36-46) % MCV (80-100) fL MCH (26-34) PG MCHC (30-36) % RDW (11.6-14.8) % Plt Count (150-400) X10^3/uL Neut % (Auto) (50-75) % Lymph % (Auto) (25-40) % [place] % (Auto) (3-14) % Eos % (Auto) (2-4) % Baso % (Auto) (0-2) % Neut # (Auto) (0844-1889) /uL Lymph # (Auto) (6902-0109) /uL [place] # (Auto) (0-900) /uL Eos # (Auto) (0-450) /uL Baso # (Auto) (0-100) /uL PT (9.4-12.5) SECONDS INR (0.9-1.3) APTT (25.1-36.5) SECONDS ABG Sample Site Left brachial ABG pH 7.45 (7.35-7.45) ABG pCO2 45.5 H (35-45) mmHg ABG pO2 59 L (80-100) mmHg ABG HCO3 32 H (23-27) mmol/L ABG Total CO2 33 H (23-27) mmol/L ABG O2 Saturation 91 L (95-100) % ABG Base Excess 8.0 H (-2-3) mmol/L FiO2 40 Sodium (137-145) mmol/L Potassium (3.4-5.1) mmol/L Chloride (98-107) mmol/L Carbon Dioxide (22-32) mmol/L BUN (7-17) mg/dL Creatinine (0.52-1.04) mg/dL Estimated GFR (>60) mL/min BUN/Creatinine Ratio (6-22) Glucose (80-110) mg/dL Lactate (0.7-2.1) mmol/L Calcium (8.4-10.2) mg/dL Total Bilirubin (0.2-1.3) mg/dL AST (14-36) IU/L ALT (<35) IU/L Alkaline Phosphatase (38-126) U/L Total Creatine Kinase (30-135) U/L Troponin I (0.01-0.034) ng/mL NT-Pro-B Natriuret Pep (<450) pg/mL Total Protein (6.3-8.2) g/dL Albumin (3.5-5.0) g/dL Globulin (1.7-4.1) g/dL Albumin/Globulin Ratio (1.0-2.8) Procalcitonin (<0.5) ng/mL Urine Color Yellow Urine Appearance Sl cloudy Urine pH 8.5 H (4.5-8.0) Ur Specific [place] 1.015 (1.000-1.035) Urine Protein Negative (Negative) Urine Glucose (UA) Negative (Negative) g/dL Urine Ketones Negative (NEGATIVE) Urine Occult Blood Negative (Negative) Urine Nitrate Negative (Negative) Urine Bilirubin Negative (NEGATIVE) Urine Urobilinogen 0.2 (0.2) E.U./dL Ur Leukocyte Esterase 2+ H (NEGATIVE) Urine RBC 0-1/hpf (0-5/HPF) Urine WBC 10-30/hpf H (0-5/HPF) Ur Squamous Epith Cells None seen (0-5/HPF) Urine Bacteria Many (>30) H (None) Ur Culture Indicated? Specimen cultured Chlamy pneumoniae PCR Not detected (Not Detect) Adenovirus (PCR) Not detected (Not Detect) B.parapertussis DNA PCR Not detected (Not Detecte) Coronavirus OC43 (PCR) Not detected (Not Detect) Coronavirus HKU1 (PCR) Not detected (Not Detect) Coronavirus 229E (PCR) Not detected (Not Detect) SARS-CoV-2 (PCR) Detected H (Not Detecte) Coronavirus NL63 (PCR) Not detected (Not Detect) Human Metapneumovir PCR Not detected (Not Detect) Influenza Type A (PCR) Not detected (Not Detect) Influenza Type B (PCR) Not detected (Not Detect) M. pneumoniae (PCR) Not detected (Not Detect) Parainfluenza 1 (PCR) Not detected (Not Detect) Parainfluenza 2 (PCR) Not detected (Not Detect) Parainfluenza 3 (PCR) Not detected (Not Detect) Parainfluenza 4 (PCR) Not detected (Not Detect) RSV (PCR) Not detected (Not Detect) Entero/Rhino (PCR) Not detected (Not Detect) 04/08/23 Range/Units 13:50 WBC 8.7 (4.5-11.0) X10^3/uL RBC 4.33 (4.0-5.2) X10^6/uL Hgb 11.8 L (12.0-16.0) g/dL Hct 35.9 L (36-46) % MCV 82.8 (80-100) fL MCH 27.2 (26-34) PG MCHC 32.8 (30-36) % RDW 17.9 H (11.6-14.8) % Plt Count 446 H (150-400) X10^3/uL Neut % (Auto) 71.5 (50-75) % Lymph % (Auto) 14.9 L (25-40) % [place] % (Auto) 12.9 (3-14) % Eos % (Auto) 0.2 L (2-4) % Baso % (Auto) 0.5 (0-2) % Neut # (Auto) 6200 (6297-9191) /uL Lymph # (Auto) 1300 (3103-1274) /uL [place] # (Auto) 1100 H (0-900) /uL Eos # (Auto) 0 (0-450) /uL Baso # (Auto) 0 (0-100) /uL PT 27.0 H (9.4-12.5) SECONDS INR 2.3 H (0.9-1.3) APTT 40 H (25.1-36.5) SECONDS ABG Sample Site ABG pH (7.35-7.45) ABG pCO2 (35-45) mmHg ABG pO2 (80-100) mmHg ABG HCO3 (23-27) mmol/L ABG Total CO2 (23-27) mmol/L ABG O2 Saturation (95-100) % ABG Base Excess (-2-3) mmol/L FiO2 Sodium 134 L (137-145) mmol/L Potassium 4.3 (3.4-5.1) mmol/L Chloride 96 L (98-107) mmol/L Carbon Dioxide 33 H (22-32) mmol/L BUN 25 H (7-17) mg/dL Creatinine 1.06 H (0.52-1.04) mg/dL Estimated GFR 55 L (>60) mL/min BUN/Creatinine Ratio 23.6 H (6-22) Glucose 148 H (80-110) mg/dL Lactate 1.4 (0.7-2.1) mmol/L Calcium 10.0 (8.4-10.2) mg/dL Total Bilirubin 0.5 (0.2-1.3) mg/dL AST 25 (14-36) IU/L ALT 16 (<35) IU/L Alkaline Phosphatase 83 (38-126) U/L Total Creatine Kinase 31 (30-135) U/L Troponin I 0.013 (0.01-0.034) ng/mL NT-Pro-B Natriuret Pep 3470 H (<450) pg/mL Total Protein 7.7 (6.3-8.2) g/dL Albumin 3.7 (3.5-5.0) g/dL Globulin 4.0 (1.7-4.1) g/dL Albumin/Globulin Ratio 0.9 L (1.0-2.8) Procalcitonin 0.05 (<0.5) ng/mL Urine Color Urine Appearance Urine pH (4.5-8.0) Ur Specific [place] (1.000-1.035) Urine Protein (Negative) Urine Glucose (UA) (Negative) g/dL Urine Ketones (NEGATIVE) Urine Occult Blood (Negative) Urine Nitrate (Negative) Urine Bilirubin (NEGATIVE) Urine Urobilinogen (0.2) E.U./dL Ur Leukocyte Esterase (NEGATIVE) Urine RBC (0-5/HPF) Urine WBC (0-5/HPF) Ur Squamous Epith Cells (0-5/HPF) Urine Bacteria (None) Ur Culture Indicated? Chlamy pneumoniae PCR (Not Detect) Adenovirus (PCR) (Not Detect) B.parapertussis DNA PCR (Not Detecte) Coronavirus OC43 (PCR) (Not Detect) Coronavirus HKU1 (PCR) (Not Detect) Coronavirus 229E (PCR) (Not Detect) SARS-CoV-2 (PCR) (Not Detecte) Coronavirus NL63 (PCR) (Not Detect) Human Metapneumovir PCR (Not Detect) Influenza Type A (PCR) (Not Detect) Influenza Type B (PCR) (Not Detect) M. pneumoniae (PCR) (Not Detect) Parainfluenza 1 (PCR) (Not Detect) Parainfluenza 2 (PCR) (Not Detect) Parainfluenza 3 (PCR) (Not Detect) Parainfluenza 4 (PCR) (Not Detect) RSV (PCR) (Not Detect) Entero/Rhino (PCR) (Not Detect) Imaging Data Chest x-ray: Radiologist's Impression: [address] [id number] XRay Report? Signed Patient: Radha Zavaleta MR#: [id number] : 1950 Acct:[id number] Age/Sex: 73 / F Date of Service: 04/08/23 Loc: ED Accession Number: [id number] ? Procedure: XR chest 1V Ordering Provider: Joanne Mckoy D.O. PROCEDURE:? XR CHEST 1V ? INDICATIONS:? diff breathing, altered, hx lung disease. ? TECHNIQUE:? One view of the chest was acquired.?? ? COMPARISON:? [facility], CR, XR CHEST 1V, 02/02/2023, 20:08.? [facility], CR,? XR CHEST 1V, 12/06/2022, 9:59. ? FINDINGS:?? ? Surgical changes and devices:? None.?? ? Lungs and pleura:? Low lung volumes.? Mild bibasal opacities again seen, slightly? decreased. ? Mediastinum:? Heart size is at the upper limit of normal.? Aortic and vascular? calcifications. ? Bones and chest wall:? Degenerative changes. ? ? IMPRESSION:?? Single view radiograph with low lung volumes limiting evaluation.? Possible bibasilar? opacities may be infectious/inflammatory or atelectasis, slightly decreased compared to? January 2023. Consider future imaging surveillance to assess for resolution.? Dictated by: Yohannes Cueto M.D. on 04/08/2023 at 14:26? ? ? Approved by: Yohannes Cueto M.D. on 04/08/2023 at 14:27? ? ECG Data Attestation: I personally reviewed and interpreted this ECG as follows: Interpretation: Sinus rhythm rate of 93, rate of 140, QRS of 116 QTC 482. No acute changes. 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 Patient has had CHF as well as CO2 retention in the past. She is somewhat altered from her baseline is aware of who she is and where she is able to answer yes no to some questions. Workup includes labs. CBC shows normal white count, hemoglobin consistent with priors, platelets are 446 patient is typically elevated in the 500s, no leftward shift. Patient's procalcitonin is negative as well as lactate. INR today is 2.3, patient is therapeutic on her warfarin. Patient's creatinine 1.06 slightly up priors her BUN 25 sodium 1 34, potassium 4 3 chloride 96 with CO2 of 33 and a glucose of 148. Lactate 1.4, negative LFTs troponin is negative. BNP is 3470 this is mid to higher range for patient. She appears much more dry than wet on examination. UA positive for 2+ leuks and 10-30 wbc. Respiratory panel is positive for COVID. ABG hypoxia but patient is 7.45 with a pCO2 of 45, PO2 of 59 bicarb of 31 on 03/20 with 40% FiO2, patient was increased to 50%. Chest x-ray bibasilar opacities may be infectious/inflammatory radial atelectasis. EKG no acute changes. Patient started on remdesivir and given dexamethasone 6 mg IV. Discussed with patient family they are comfortable with this. Was covered with Levaquin as there was concern for potential infection with urine as well. Patient has been fairly stable on BiPAP to trial off on oxygen patient is normally on 5 L was on OxyMask and then nasal cannula but became hypoxic into the mid 80s. Did not have decreased work of breathing but was replaced back on BiPAP. Dr. Mart, infectious disease does have access to his computer at this moment. Reviewed had recent reported sputum culture sensitivities are pending for Haemophilus. Has been on oral doxycycline. You recommended potential coverage with Rocephin, no other recommendations currently but does not have access to patient's chart in his not familiar with patient. Spoke with Dr. Mansfield accepts for inpatient did discuss can transfer if he would prefer patient can be fairly fragile in terms of her respiratory status does follow with pulmonology and follows with Infectious Disease at [facility]. After discussion patient felt appropriate for inpatient admission to ICU here. She seems fairly stable positive for COVID likely source we will continue with remdesivir and dexamethasone. Did discuss recommendations from Infectious Disease. Critical Care Time Critical Care Time Critical Care Time: Yes Total Critical Care Time: 35 Attestation: The high probability of a clinically significant, sudden or life threatening deterioration of the [cardiac, pulm] system(s) required my full and direct attention, intervention and personal management. The aggregate critical care time was [] minutes. This time is in addition to time spent performing reported procedures but includes the following: [x] Data Review and interpretation [x] Patient assessment and monitoring of vital signs [x] Documentation [x] Medication orders and management Discharge Plan Departure Patient Disposition: Admitted As Inpatient Clinical Impression: COVID-19 virus infection Acute and chronic respiratory failure, unspecified whether with hypoxia or hypercapnia Qualifiers: Respiratory failure complication: hypoxia Qualified Code(s): J96.21 - Acute and chronic respiratory failure with hypoxia Admit Date/Time: 04/08/23 16:30 Admit Provider: Jorge Mansfield
[2023-04-08 13:34] LABS: HCO3 ABG 32 mmol/L (23-27); PCO2 ABG 45.5 mmHg (35-45); PO2 ABG 59 mmHg (80-100); pH ABG 7.45 (7.35-7.45)
[2023-04-08 13:35] LABS: Blood Gas Collection Site Left Brachial; Fractionated Inspired Oxygen 40; Oxygen Saturation ABG 91 % (95-100); TCO2 ABG 33 mmol/L (23-27)
[2023-04-08] MEDS: methylPREDNISolone 125 MG/2 ML VIAL IV (13:40)
[2023-04-08] MEDS: ACETAMINOPHEN IV 1,000 MG/100 ML VIAL 400 MG IV (13:45)
[2023-04-08 13:55] LABS: Appearance Urine UA SL CLOUDY; Bilirubin Urine UA NEGATIVE (NEGATIVE); Color Urine UA YELLOW; Glucose Urine UA NEGATIVE (Negative); Ketones Urine UA NEGATIVE (NEGATIVE); Leukocyte Esterase Urine UA 2+ (NEGATIVE); Nitrite Urine UA NEGATIVE (Negative); Occult Blood Urine UA NEGATIVE (Negative); Protein Urine UA NEGATIVE (Negative); Specific Gravity Urine UA 1.015 (1.000-1.035); Urobilinogen Urine UA 0.2 E.U./dL (0.2)
[2023-04-08 13:56] LABS: pH Urine UA 8.5 (4.5-8.0)
[2023-04-08 14:00] LABS: Add Manual Diff / Slide Review NO; Basophils Absolute Auto 0 /uL (0-100); Basophils Percent Auto 0.5 % (0-2); Eosinophils Absolute Auto 0 /uL (0-450); Eosinophils Percent Auto 0.2 % (2-4); Hematocrit 35.9 % (36-46); Hemoglobin 11.8 g/dL (12.0-16.0); Lymphocytes Absolute Auto 1300 /uL (1100-4500); Lymphocytes Percent Auto 14.9 % (25-40); Mean Corpuscular HGB Conc 32.8 % (30-36); Mean Corpuscular Hemoglobin 27.2 PG (26-34); Mean Corpuscular Volume 82.8 fL (80-100); Monocytes Absolute Auto 1100 /uL (0-900); Monocytes Percent Auto 12.9 % (3-14); Neutrophils Absolute Auto 6200 /uL (1500-7000); Neutrophils Percent Auto 71.5 % (50-75); Platelet Count 446 X10^3/uL (150-400); Red Blood Cell Count 4.33 X10^6/uL (4.0-5.2); Red Cell Distribution Width 17.9 % (11.6-14.8); White Blood Cell Count 8.7 X10^3/uL (4.5-11.0)
[2023-04-08 14:00] LABS: Bacteria Urine Many (>30); Culture Indicated Urine Specimen Cultured; RBC Urine 0-1/HPF (0-5/HPF); Squamous Epithelial Cell Urine None Seen (0-5/HPF); WBC Urine 10-30/HPF (0-5/HPF)
[2023-04-08 14:09] LABS: HEMOLYSIS 29 (0-50); INR 2.3 (0.9-1.3)
[2023-04-08 14:14] LABS: Alanine Aminotransferase 16 IU/L (<35); Albumin 3.7 g/dL (3.5-5.0); Albumin Globulin Ratio 0.9 (1.0-2.8); Alkaline Phosphatase 83 U/L (38-126); Aspartate Aminotransferase 25 IU/L (14-36); BUN Creatinine Ratio 23.6 (6-22); Bilirubin Total 0.5 mg/dL (0.2-1.3); Blood Urea Nitrogen 25 mg/dL (7-17); Carbon Dioxide 33 mmol/L (22-32); Chloride 96 mmol/L (98-107); Creatine Kinase 31 U/L (30-135); Estimated Glomerular Filt Rate 55 mL/min (>60); Glucose 148 mg/dL (80-110); Lactate (Lactic Acid) 1.4 mmol/L (0.7-2.1); Potassium 4.3 mmol/L (3.4-5.1); Sodium 134 mmol/L (137-145); Total Protein 7.7 g/dL (6.3-8.2)
[2023-04-08 14:14] LABS: Adenovirus Not Detected (Not Detect); B. parapertussis Not Detected (Not Detecte); Bordetella pertussis Not Detected (Not Detect); Chlamydophila pneumoniae Not Detected (Not Detect); Coronavirus 229E Not Detected (Not Detect); Coronavirus HKU1 Not Detected (Not Detect); Coronavirus NL 63 Not Detected (Not Detect); Coronavirus OC43 Not Detected (Not Detect); Human Metapneumovirus Not Detected (Not Detect); Human Rhinovirus/Enterovirus Not Detected (Not Detect); Influenza A Not Detected (Not Detect); Influenza B Not Detected (Not Detect); Mycoplasma pneumoniae Not Detected (Not Detect); Parainfluenza Virus 1 Not Detected (Not Detect); Parainfluenza Virus 2 Not Detected (Not Detect); Parainfluenza Virus 3 Not Detected (Not Detect); Parainfluenza Virus 4 Not Detected (Not Detect); Respiratory Syncytial Virus Not Detected (Not Detect)
[2023-04-08 14:15] LABS: SARS- CoV-2 Detected (Not Detecte)
[2023-04-08 14:17] LABS: PTT Partial Thromboplastin Tim 40 SECONDS (25.1-36.5)
[2023-04-08] MEDS: levoFLOXacin 750 MG/150 ML PIGGYBACK 100 MG IV (14:20)
[2023-04-08 14:52] LABS: NT-proBNP (BNP-Adult 18+) 3470 pg/mL (<450)
[2023-04-08] MEDS: SODIUM CHLORIDE 0.9% 1,000 ML 1000 ML IV (14:53)
[2023-04-08 14:55] LABS: Troponin I 0.013 ng/mL (0.01-0.034)
[2023-04-08] MEDS: DEXAMETHASONE 10 MG/ML VIAL 6 MG IV (15:01)
[2023-04-08] MEDS: fentaNYL 100 MCG/2 ML INJ 50 MCG IV (15:21)
[2023-04-08] MEDS: REMDESIVIR 200 MG in SODIUM CHLORIDE 0.9% 250 ML 250 MG IV (15:36)
[2023-04-08 15:38] LABS: Procalcitonin 0.05 ng/mL (<0.5)
--- NOTE | 2023-04-08 16:08 | PC.NURSE ---
Pt placed on oxymask 10L around 1530. Around 1605 pt began to de sat down to 88-89% Dr. Mckoy at bedside. Pt placed back on CPAP RT made aware. Pt satting >90% now on CPAP
--- NOTE | 2023-04-08 16:12 | PC.NURSE ---
Pt has one 25mcg fentanyl patch and one 12 mcg patch on right shoulder applied yesterday 04/07
--- NOTE | 2023-04-08 17:48 | PM.HP.1 ---
History of Present Illness History of Present Illness Chief complaint: pneumonia Narrative: 73-year-old female nonsmoker, history of CVID, mitral stenosis, HFpEF, chronic respiratory failure on 5 L home O2, DVT on warfarin with IVC filter, prior pulmonary emboli in October 2021, diabetes on insulin, sleep apnea, hypothyroid, history of adrenal insufficiency, hypertension, dyslipidemia, fibromyalgia and GERD presents with complaint of difficulty with breathing and decreased mental status. Pt tested COVID + in ED. She developed fever, increased dyspnea and wheezing in the past 24 hours. tested + for COVID a few days ago. Pt is frequently on abx for respiratory infections. She is followed by Dr Whalen for ID and most recently has been on doxycycline for the last few weeks. Spouse states she had another sputum culture a few days ago which is growing H. influenza but sensitivities weren't back yet. The plan had been to keep her on doxy until her scheduled transcatheter mitral valve replacement on April 25 at [facility]. Spouse indicates pt was last hospitalized in December at [facility] and had 60 pounds of excess fluid diuresis. Also had transcatheter septal alcohol ablation during or around the time of that admission. Pt was tried on HFNC in the ED and then placed on BIPAP with improvement. ABG pH 7.45, pCO2 45, pO2 59 on 40% FIO2. CXR personally reviewed and shows low lung volumes, possible bibasilar opacities similar or improved from prior imaging. LABS -WBC nl, procal nl, BNP 3470, INR 2.3, lactate nl, UA 10-30 WBC and many bacteria. [facility] Medical History Anticoagulated Pneumonia Wears glasses Eczema Osteoarthritis Bronchiectasis (~2006) Sleep apnea Asthma (~1959) Abnormal chest xray (~1979) Restless leg syndrome Migraines (~1964) Shoulder pain (~03/2018) Osteopenia Degenerative joint disease of spine (~2001) Foot pain Fibromyalgia Chronic back pain Cervical spine disease Ankle pain MRSA (methicillin resistant Staphylococcus aureus) (~2002) Anemia Hoarseness Recurrent sinusitis (~1970) Colon polyps (~2015) Hypothyroidism Diabetes mellitus, type II (~2009) Hypertension Hyperlipidemia Nail bed carcinoma Pneumonia Surgical History Anesthesia History of thumb surgery History of carpal tunnel release History of spinal fusion (~2012) History of laminectomy (~2002) History of section History of cataract removal with insertion of prosthetic lens (~2014) Family History Father Stroke Mother Hypertension Brother Cerebral aneurysm Prostate cancer Diabetes mellitus Hypertension Stroke Brother Arthritis Hyperlipidemia Hypertension Sister History of kidney cancer Hypertension Grandfather Cancer Grandmother Cancer Other Family history non-contributory Social History marital status: household members: spouse lives independently: Yes occupational status: previously employed Smoking Status: Never smoker alcohol intake: current substance use type: does not use Meds Home Medications and Allergies Home Medications Medication Instructions Recorded Confirmed Type polyethylene glycol 3350 17 17 gm PO DAILY PRN Constipation ##0 06/06/17 10/13/22 History gram/dose oral powder (Miralax) albuterol sulfate 90 mcg/actuation 2 puff inhalation Q4-6H PRN 05/29/19 04/08/23 History aerosol inhaler Shortness Of Breath cholecalciferol (vitamin D3) 50 2,000 unit PO DAILY 05/29/19 04/08/23 History mcg (2,000 unit) tablet ferrous sulfate 325 mg (65 mg 325 mg PO BEDTIME 05/29/19 04/08/23 History iron) tablet tizanidine 4 mg capsule 4 mg PO QID PRN Muscle Spasm 05/29/19 04/08/23 History sodium chloride 3 % for 3 ml inhalation BID 06/05/19 10/13/22 History nebulization ondansetron HCl 4 mg tablet 4 mg PO Q8H PRN nausea and 10/06/19 10/13/22 Rx (Zofran) vomiting #30 tabs cetirizine 10 mg capsule (Zyrtec) 10 mg PO DAILY allergies 01/20/20 04/08/23 History montelukast 10 mg tablet 10 mg PO BEDTIME 01/20/20 04/08/23 History (Singulair) verio reflect glucometer #1 ea 01/28/20 10/13/22 Rx insulin syringe-needle U-100 0.5 #100 ea 03/30/20 10/13/22 Rx mL 31 gauge x 5/16 (BD Insulin Syringe Ultra-Fine) metformin 1,000 mg tablet 1,000 mg PO BID #180 tabs 09/03/20 04/08/23 Rx atorvastatin 40 mg tablet 40 mg PO BEDTIME 04/20/21 04/08/23 History epinephrine 0.3 mg/0.3 mL 0.3 mg IM Q5-15M PRN Allergic 04/20/21 04/08/23 History injection, auto-injector (EpiPen) Reaction insulin glargine 100 unit/mL 30 unit SUBCUT QAM 04/20/21 04/08/23 History subcutaneous solution insulin lispro 100 unit/mL 4 - 8 unit SUBCUT TID 04/20/21 04/08/23 History subcutaneous pen (Humalog KwikPen (U-100) Insulin) ipratropium 0.5 mg-albuterol 3 mg 3 ml inhalation BID 04/20/21 10/13/22 History (2.5 mg base)/3 mL nebulization soln levothyroxine 75 mcg tablet 75 mcg PO QAM 04/20/21 04/08/23 History nortriptyline 25 mg capsule 25 mg PO BEDTIME 04/20/21 04/08/23 History tiotropium bromide 18 mcg capsule 1 cap inhalation DAILY 04/20/21 04/08/23 History with inhalation device (Spiriva with HandiHaler) lansoprazole 15 mg capsule,delayed 30 mg PO BID 04/29/21 04/08/23 History release (Prevacid 24Hr) duloxetine 30 mg capsule,delayed 30 mg PO DAILY 06/28/21 04/08/23 History release fluticasone 500 mcg-salmeterol 50 1 inh inhalation BID 06/28/21 10/13/22 History mcg/dose blistr powdr for inhalation (Wixela Inhub) guaifenesin 1,200 mg tablet, 1,200 mg PO BID 06/28/21 04/08/23 History extended release 12 hr (Mucinex) oxycodone-acetaminophen 10 mg-325 1 tab PO Q4H PRN Pain (Scale Score 06/28/21 10/13/22 History mg tablet (Percocet) 4-6) pramipexole 0.5 mg tablet 0.5 mg PO BEDTIME 06/28/21 04/08/23 History fentanyl 25 mcg/hr transdermal 1 patch transdermal Q72H PRN pain 02/05/22 04/08/23 Rx patch (scale score 1-3) #5 ea omega-3 fatty acids 1,000 mg PO DAILY 04/24/22 10/13/22 History benralizumab 30 mg/mL subcutaneous 30 mg SUBCUT Q8W 06/03/22 04/08/23 History syringe (Fasenra) [id number]-[id number]-bdpoybxv 1 tab PO Q6H PRN Migraine Headache 06/03/22 10/13/22 History 50 mg-325 mg-40 mg tablet clonidine HCl 0.1 mg tablet 0.05 mg PO BID 06/03/22 04/08/23 History oxycodone 5 mg capsule 15 mg PO Q6H PRN Pain (Scale Score 06/03/22 04/08/23 History 7-10) oxymetazoline 0.05 % nasal drops 1 drp intranasal BID PRN Congestion 06/03/22 10/13/22 History prednisone 5 mg tablet 5 mg PO DAILY 06/03/22 04/08/23 History Hizintra 15 g SUBCUT QWEEK 08/25/22 04/08/23 History fluticasone 500 mcg-salmeterol 50 1 inh inhalation Q12H 08/25/22 04/08/23 History mcg/dose blistr powdr for inhalation (Advair Diskus) aluminum-mag hydroxide-simethicone 30 ml PO Q6HR PRN Dyspepsia #355 mL 08/28/22 04/08/23 Rx 200 mg-200 mg-20 mg/5 mL oral susp (Mag-Al Plus) calcium carbonate 200 mg calcium 1,000 mg (5 x 200 mg calcium (500 08/28/22 10/13/22 Rx (500 mg) chewable tablet mg)) PO Q4HR PRN Dyspepsia #60 tabs docusate sodium 100 mg capsule 100 mg PO BID #60 caps 08/28/22 04/08/23 Rx potassium chloride 20 mEq/15 mL 20 meq (15 mL) PO BIDWM #250 mL 08/28/22 04/08/23 Rx oral liquid sennosides 8.6 mg tablet (senna) 17.2 mg (2 x 8.6 mg) PO BEDTIME 08/28/22 10/13/22 Rx #60 tabs fentanyl 12 mcg/hr transdermal 12 mcg transdermal SEEINSTR 10/13/22 04/08/23 History patch warfarin 1 mg tablet 1 mg PO DAILY 10/13/22 04/08/23 History furosemide 40 mg tablet 40 mg PO 0800 10/27/22 History meropenem 2 IV Q8HR PNA 10/27/22 History magnesium oxide 400 mg PO BID 04/08/23 04/08/23 History metoprolol succinate 25 mg 12.5 mg PO DAILY 04/08/23 04/08/23 History tablet,extended release 24 hr spironolactone 25 mg tablet 12.5 mg PO DAILY 04/08/23 04/08/23 History torsemide 20 mg tablet 20 mg PO BID 04/08/23 04/08/23 History Allergies Allergy/AdvReac Type Severity Reaction Status Date / Time piperacillin [From Zosyn] Allergy Severe Rash Verified 04/08/23 17:46 tazobactam [From Zosyn] Allergy Severe Rash Verified 04/08/23 17:46 hydroxychloroquine Allergy Unknown Verified 04/08/23 13:14 [HYDROXYCHLOROQUINE] cefepime AdvReac Intermediate pruritis Verified 04/08/23 13:14 promethazine [From Phenergan] AdvReac Agitated Verified 04/08/23 13:14 Exam Vital Signs (past 8 hours): - 04/08/23 13:08 04/08/23 13:10 04/08/23 13:15 Temperature Pulse Rate 97 H 96 H Respiratory Rate 22 25 H Blood Pressure 131/79 131/79 Pulse Oximetry 90 L 96 Oxygen Delivery Method CPAP Oxygen Flow Rate Fraction of Inspired Oxygen 40 04/08/23 13:17 04/08/23 13:20 04/08/23 13:25 Temperature Pulse Rate 95 H 96 H Respiratory Rate 22 31 H Blood Pressure Pulse Oximetry 97 95 94 Oxygen Delivery Method CPAP Oxygen Flow Rate Fraction of Inspired Oxygen 04/08/23 13:30 04/08/23 13:35 04/08/23 13:40 Temperature Pulse Rate 94 H 94 H 95 H Respiratory Rate 30 H 32 H 33 H Blood Pressure Pulse Oximetry 94 96 96 Oxygen Delivery Method Oxygen Flow Rate Fraction of Inspired Oxygen 04/08/23 13:45 04/08/23 13:50 04/08/23 13:54 Temperature 101.1 F H 101.3 F H Pulse Rate 96 H 92 H 93 H Respiratory Rate 30 H 25 H 31 H Blood Pressure Pulse Oximetry 95 97 96 Oxygen Delivery Method CPAP Oxygen Flow Rate Fraction of Inspired Oxygen 04/08/23 13:54 04/08/23 13:55 04/08/23 14:00 Temperature 101.3 F H 101.5 F H Pulse Rate 93 H 91 H Respiratory Rate 31 H 24 Blood Pressure 110/72 Pulse Oximetry 96 94 Oxygen Delivery Method Oxygen Flow Rate Fraction of Inspired Oxygen 04/08/23 14:00 04/08/23 14:05 04/08/23 14:10 Temperature 101.5 F H 101.5 F H Pulse Rate 90 93 H Respiratory Rate 26 H 27 H Blood Pressure 116/60 Pulse Oximetry 95 97 Oxygen Delivery Method Oxygen Flow Rate Fraction of Inspired Oxygen 04/08/23 14:15 04/08/23 14:20 04/08/23 14:25 Temperature 101.5 F H 101.7 F H 101.7 F H Pulse Rate 91 H 91 H 90 Respiratory Rate 24 21 22 Blood Pressure Pulse Oximetry 97 96 94 Oxygen Delivery Method Oxygen Flow Rate Fraction of Inspired Oxygen 04/08/23 14:30 04/08/23 14:31 04/08/23 14:31 Temperature 101.7 F H 101.7 F H Pulse Rate 90 90 Respiratory Rate 22 23 Blood Pressure 104/46 L Pulse Oximetry 96 97 Oxygen Delivery Method Oxygen Flow Rate Fraction of Inspired Oxygen 04/08/23 14:35 04/08/23 14:40 04/08/23 14:45 Temperature 101.7 F H 101.7 F H 101.7 F H Pulse Rate 90 91 H 91 H Respiratory Rate 22 24 23 Blood Pressure Pulse Oximetry 95 96 96 Oxygen Delivery Method Oxygen Flow Rate Fraction of Inspired Oxygen 04/08/23 14:50 04/08/23 14:55 04/08/23 15:00 Temperature 101.5 F H 101.5 F H 101.5 F H Pulse Rate 93 H 91 H 89 Respiratory Rate 30 H 28 H 28 H Blood Pressure Pulse Oximetry 95 94 94 Oxygen Delivery Method Oxygen Flow Rate Fraction of Inspired Oxygen 04/08/23 15:01 04/08/23 15:01 04/08/23 15:05 Temperature 101.5 F H 101.3 F H Pulse Rate 89 88 Respiratory Rate 26 H 26 H Blood Pressure 105/52 L Pulse Oximetry 95 95 Oxygen Delivery Method Oxygen Flow Rate Fraction of Inspired Oxygen 04/08/23 15:10 04/08/23 15:15 04/08/23 15:20 Temperature 101.3 F H 101.1 F H 101.1 F H Pulse Rate 88 90 87 Respiratory Rate 29 H 21 25 H Blood Pressure Pulse Oximetry 95 95 95 Oxygen Delivery Method Oxygen Flow Rate Fraction of Inspired Oxygen 04/08/23 15:25 04/08/23 15:40 04/08/23 15:45 Temperature 100.9 F H 100.6 F H 100.4 F H Pulse Rate 87 91 H 92 H Respiratory Rate 19 30 H 30 H Blood Pressure Pulse Oximetry 93 93 91 Oxygen Delivery Method Oximask Oxygen Flow Rate 10 Fraction of Inspired Oxygen 04/08/23 15:50 04/08/23 15:55 04/08/23 16:00 Temperature 100.4 F H 100.2 F H 100.0 F H Pulse Rate 91 H 90 90 Respiratory Rate 29 H 22 22 Blood Pressure Pulse Oximetry 91 89 L 90 L Oxygen Delivery Method Oxygen Flow Rate Fraction of Inspired Oxygen 04/08/23 16:00 04/08/23 16:05 04/08/23 16:10 Temperature 100.0 F H 99.9 F H Pulse Rate 91 H 86 Respiratory Rate 30 H 17 Blood Pressure 100/54 L Pulse Oximetry 88 L 91 Oxygen Delivery Method Nasal Cannula Oxygen Flow Rate Fraction of Inspired Oxygen 04/08/23 16:15 04/08/23 16:15 04/08/23 16:20 Temperature 99.9 F H 99.9 F H Pulse Rate 84 84 Respiratory Rate 10 L 23 Blood Pressure 100/54 L Pulse Oximetry 92 93 Oxygen Delivery Method CPAP Oxygen Flow Rate Fraction of Inspired Oxygen 40 04/08/23 16:25 04/08/23 16:30 04/08/23 16:30 Temperature 99.7 F H 99.7 F H Pulse Rate 84 84 Respiratory Rate 27 H 22 Blood Pressure 104/52 L Pulse Oximetry 91 92 Oxygen Delivery Method Oxygen Flow Rate Fraction of Inspired Oxygen 04/08/23 16:35 04/08/23 16:40 04/08/23 16:40 Temperature 99.7 F H 99.7 F H Pulse Rate 84 86 Respiratory Rate 29 H 24 Blood Pressure 101/49 L Pulse Oximetry 92 92 Oxygen Delivery Method CPAP Oxygen Flow Rate Fraction of Inspired Oxygen 04/08/23 16:56 04/08/23 16:58 04/08/23 16:58 Temperature Pulse Rate 90 87 Respiratory Rate 24 Blood Pressure 108/56 L Pulse Oximetry 95 96 Oxygen Delivery Method Oxygen Flow Rate Fraction of Inspired Oxygen 04/08/23 17:00 04/08/23 17:00 04/08/23 17:05 Temperature Pulse Rate 87 88 Respiratory Rate 23 27 H Blood Pressure 108/59 L Pulse Oximetry 95 96 Oxygen Delivery Method Oxygen Flow Rate Fraction of Inspired Oxygen 04/08/23 17:10 04/08/23 17:15 Temperature Pulse Rate 89 87 Respiratory Rate 29 H 26 H Blood Pressure Pulse Oximetry 97 96 Oxygen Delivery Method Oxygen Flow Rate Fraction of Inspired Oxygen Fraction of Inspired Oxygen 40 Oxygen Delivery Method CPAP Oxygen Flow Rate 10 Narrative Exam Narrative: Gen: alert, responsive, relatively comfortable since on BIPAP Lungs: able to speak short sentences, clear to A CV: regular Abd: soft, no mass Ext: trace pedal edema, chronic venous stasis dermatitis Neuro: aleert, mentating well, speech nl, no focal weakness Objective Labs 04/08/23 13:50 04/08/23 13:50 Labs: Laboratory Results - last 24 hr 04/08/23 04/08/23 04/08/23 13:15 13:25 13:30 WBC RBC Hgb Hct MCV MCH MCHC RDW Plt Count Neut % (Auto) Lymph % (Auto) [place] % (Auto) Eos % (Auto) Baso % (Auto) Neut # (Auto) Lymph # (Auto) [place] # (Auto) Eos # (Auto) Baso # (Auto) PT INR APTT ABG Sample Site Left brachial ABG pH 7.45 ABG pCO2 45.5 H ABG pO2 59 L ABG HCO3 32 H ABG Total CO2 33 H ABG O2 Saturation 91 L ABG Base Excess 8.0 H FiO2 40 Sodium Potassium Chloride Carbon Dioxide BUN Creatinine Estimated GFR BUN/Creatinine Ratio Glucose Lactate Calcium Total Bilirubin AST ALT Alkaline Phosphatase Total Creatine Kinase Troponin I NT-Pro-B Natriuret Pep Total Protein Albumin Globulin Albumin/Globulin Ratio Procalcitonin Urine Color Yellow Urine Appearance Sl cloudy Urine pH 8.5 H Ur Specific [place] 1.015 Urine Protein Negative Urine Glucose (UA) Negative Urine Ketones Negative Urine Occult Blood Negative Urine Nitrate Negative Urine Bilirubin Negative Urine Urobilinogen 0.2 Ur Leukocyte Esterase 2+ H Urine RBC 0-1/hpf Urine WBC 10-30/hpf H Ur Squamous Epith Cells None seen Urine Bacteria Many (>30) H Ur Culture Indicated? Specimen cultured Chlamy pneumoniae PCR Not detected Adenovirus (PCR) Not detected B.parapertussis DNA PCR Not detected Coronavirus OC43 (PCR) Not detected Coronavirus HKU1 (PCR) Not detected Coronavirus 229E (PCR) Not detected SARS-CoV-2 (PCR) Detected H Coronavirus NL63 (PCR) Not detected Human Metapneumovir PCR Not detected Influenza Type A (PCR) Not detected Influenza Type B (PCR) Not detected M. pneumoniae (PCR) Not detected Parainfluenza 1 (PCR) Not detected Parainfluenza 2 (PCR) Not detected Parainfluenza 3 (PCR) Not detected Parainfluenza 4 (PCR) Not detected RSV (PCR) Not detected Entero/Rhino (PCR) Not detected 04/08/23 13:50 WBC 8.7 RBC 4.33 Hgb 11.8 L Hct 35.9 L MCV 82.8 MCH 27.2 MCHC 32.8 RDW 17.9 H Plt Count 446 H Neut % (Auto) 71.5 Lymph % (Auto) 14.9 L [place] % (Auto) 12.9 Eos % (Auto) 0.2 L Baso % (Auto) 0.5 Neut # (Auto) 6200 Lymph # (Auto) 1300 [place] # (Auto) 1100 H Eos # (Auto) 0 Baso # (Auto) 0 PT 27.0 H INR 2.3 H APTT 40 H ABG Sample Site ABG pH ABG pCO2 ABG pO2 ABG HCO3 ABG Total CO2 ABG O2 Saturation ABG Base Excess FiO2 Sodium 134 L Potassium 4.3 Chloride 96 L Carbon Dioxide 33 H BUN 25 H Creatinine 1.06 H Estimated GFR 55 L BUN/Creatinine Ratio 23.6 H Glucose 148 H Lactate 1.4 Calcium 10.0 Total Bilirubin 0.5 AST 25 ALT 16 Alkaline Phosphatase 83 Total Creatine Kinase 31 Troponin I 0.013 NT-Pro-B Natriuret Pep 3470 H Total Protein 7.7 Albumin 3.7 Globulin 4.0 Albumin/Globulin Ratio 0.9 L Procalcitonin 0.05 Urine Color Urine Appearance Urine pH Ur Specific [place] Urine Protein Urine Glucose (UA) Urine Ketones Urine Occult Blood Urine Nitrate Urine Bilirubin Urine Urobilinogen Ur Leukocyte Esterase Urine RBC Urine WBC Ur Squamous Epith Cells Urine Bacteria Ur Culture Indicated? Chlamy pneumoniae PCR Adenovirus (PCR) B.parapertussis DNA PCR Coronavirus OC43 (PCR) Coronavirus HKU1 (PCR) Coronavirus 229E (PCR) SARS-CoV-2 (PCR) Coronavirus NL63 (PCR) Human Metapneumovir PCR Influenza Type A (PCR) Influenza Type B (PCR) M. pneumoniae (PCR) Parainfluenza 1 (PCR) Parainfluenza 2 (PCR) Parainfluenza 3 (PCR) Parainfluenza 4 (PCR) RSV (PCR) Entero/Rhino (PCR) Assessment & Plan Assessment & Plan narrative: 1. Acute on chronic hypoxic respiratory failure -CXR similar to previous -treat for COVID -empirically cover bacterial with Levaquin (pt currently on doxy x weeks) -BIPAP, RT to manage -Duoneb q4h -sputum culture -requested recent sputum culture results from [facility] -tele ICU consult requested (spoke with doc) 2. 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 COVID-19 -WBC and procal nl -treat with dexamethsone and remdesivir -also maintain pt's chronic daily prednsione 5 mg qd -daily labs 4. Chronic anticoagulation for hx of DVT/PE -INR therapeutic -cont warfarin 1 mg qPM -daily INR 5. Diabetes insulin requiring -cont Lantus -insulin s/s hold metformin 6. Chronic pain -cont on fentanyl patch and oxycodone prn -cont nortriptyline and duloxetine 7. Hypothyroidism -cont pt's levothyroxine Code status: limited, no CPR, intubation allowed Surrogate: Spouse, Lucas Zavaleta Pt meets criteria for critical illness with sev acute on chronic resp failure with sig risk of acute deterioration and currently being managed on BIPAP. Total time of 75 minutes in ICU management.
--- NOTE | 2023-04-08 18:18 | PM.CN.EICU ---
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 In ER , she was placed on BiPAP. Further workup revealed she was COVID positive. Started on remdesivir, decadron, and levaquin. Admitted to ICU for further management. In ICU she was taken off of BiPAP and now on 10 liters NC. [facility] Medical History Anticoagulated Pneumonia Wears glasses Eczema Osteoarthritis Bronchiectasis (~2006) Sleep apnea Asthma (~1959) Abnormal chest xray (~1979) Restless leg syndrome Migraines (~1964) Shoulder pain (~03/2018) Osteopenia Degenerative joint disease of spine (~2001) Foot pain Fibromyalgia Chronic back pain Cervical spine disease Ankle pain MRSA (methicillin resistant Staphylococcus aureus) (~2002) Anemia Hoarseness Recurrent sinusitis (~1970) Colon polyps (~2015) Hypothyroidism Diabetes mellitus, type II (~2009) Hypertension Hyperlipidemia Nail bed carcinoma Pneumonia Surgical History Anesthesia History of thumb surgery History of carpal tunnel release History of spinal fusion (~2012) History of laminectomy (~2002) History of section History of cataract removal with insertion of prosthetic lens (~2014) Family History Father Stroke Mother Hypertension Brother Cerebral aneurysm Prostate cancer Diabetes mellitus Hypertension Stroke Brother Arthritis Hyperlipidemia Hypertension Sister History of kidney cancer Hypertension Grandfather Cancer Grandmother Cancer Other Family history non-contributory Social History marital status: household members: spouse lives independently: Yes occupational status: previously employed Smoking Status: Never smoker alcohol intake: current substance use type: does not use Current Medications Current Medications Medications: Home Medications polyethylene glycol 3350 17 gram/dose oral powder (Miralax) 17 gm PO DAILY PRN Constipation ##0 06/06/17 [History Confirmed 10/13/22] albuterol sulfate 90 mcg/actuation aerosol inhaler 2 puff inhalation Q4-6H PRN Shortness Of Breath 05/29/19 [History Confirmed 04/08/23] cholecalciferol (vitamin D3) 50 mcg (2,000 unit) tablet 2,000 unit PO DAILY 05/29/19 [History Confirmed 04/08/23] ferrous sulfate 325 mg (65 mg iron) tablet 325 mg PO BEDTIME 05/29/19 [History Confirmed 04/08/23] tizanidine 4 mg capsule 4 mg PO QID PRN Muscle Spasm 05/29/19 [History Confirmed 04/08/23] sodium chloride 3 % for nebulization 3 ml inhalation BID 06/05/19 [History Confirmed 10/13/22] ondansetron HCl 4 mg tablet (Zofran) 4 mg PO Q8H PRN nausea and vomiting #30 tabs 10/06/19 [Rx Confirmed 10/13/22] cetirizine 10 mg capsule (Zyrtec) 10 mg PO DAILY allergies 01/20/20 [History Confirmed 04/08/23] montelukast 10 mg tablet (Singulair) 10 mg PO BEDTIME 01/20/20 [History Confirmed 04/08/23] verio reflect glucometer #1 ea 01/28/20 [Rx Confirmed 10/13/22] insulin syringe-needle U-100 0.5 mL 31 gauge x 5/16 (BD Insulin Syringe Ultra-Fine) #100 ea 03/30/20 [Rx Confirmed 10/13/22] metformin 1,000 mg tablet 1,000 mg PO BID #180 tabs 09/03/20 [Rx Confirmed 04/08/23] atorvastatin 40 mg tablet 40 mg PO BEDTIME 04/20/21 [History Confirmed 04/08/23] epinephrine 0.3 mg/0.3 mL injection, auto-injector (EpiPen) 0.3 mg IM Q5-15M PRN Allergic Reaction 04/20/21 [History Confirmed 04/08/23] insulin glargine 100 unit/mL subcutaneous solution 30 unit SUBCUT QAM 04/20/21 [History Confirmed 04/08/23] insulin lispro 100 unit/mL subcutaneous pen (Humalog KwikPen (U-100) Insulin) 4 - 8 unit SUBCUT TID 04/20/21 [History Confirmed 04/08/23] ipratropium 0.5 mg-albuterol 3 mg (2.5 mg base)/3 mL nebulization soln 3 ml inhalation BID 04/20/21 [History Confirmed 10/13/22] levothyroxine 75 mcg tablet 75 mcg PO QAM 04/20/21 [History Confirmed 04/08/23] nortriptyline 25 mg capsule 25 mg PO BEDTIME 04/20/21 [History Confirmed 04/08/23] tiotropium bromide 18 mcg capsule with inhalation device (Spiriva with HandiHaler) 1 cap inhalation DAILY 04/20/21 [History Confirmed 04/08/23] lansoprazole 15 mg capsule,delayed release (Prevacid 24Hr) 30 mg PO BID 04/29/21 [History Confirmed 04/08/23] duloxetine 30 mg capsule,delayed release 30 mg PO DAILY 06/28/21 [History Confirmed 04/08/23] fluticasone 500 mcg-salmeterol 50 mcg/dose blistr powdr for inhalation (Wixela Inhub) 1 inh inhalation BID 06/28/21 [History Confirmed 10/13/22] guaifenesin 1,200 mg tablet, extended release 12 hr (Mucinex) 1,200 mg PO BID 06/28/21 [History Confirmed 04/08/23] oxycodone-acetaminophen 10 mg-325 mg tablet (Percocet) 1 tab PO Q4H PRN Pain (Scale Score 4-6) 06/28/21 [History Confirmed 10/13/22] pramipexole 0.5 mg tablet 0.5 mg PO BEDTIME 06/28/21 [History Confirmed 04/08/23] fentanyl 25 mcg/hr transdermal patch 1 patch transdermal Q72H PRN pain (scale score 1-3) #5 ea 02/05/22 [Rx Confirmed 04/08/23] omega-3 fatty acids 1,000 mg PO DAILY 04/24/22 [History Confirmed 10/13/22] benralizumab 30 mg/mL subcutaneous syringe (Fasenra) 30 mg SUBCUT Q8W 06/03/22 [History Confirmed 04/08/23] uplpcjczdl-aixnknwzbamsu-kbwyzggf 50 mg-325 mg-40 mg tablet 1 tab PO Q6H PRN Migraine Headache 06/03/22 [History Confirmed 10/13/22] clonidine HCl 0.1 mg tablet 0.05 mg PO BID 06/03/22 [History Confirmed 04/08/23] oxycodone 5 mg capsule 15 mg PO Q6H PRN Pain (Scale Score 7-10) 06/03/22 [History Confirmed 04/08/23] oxymetazoline 0.05 % nasal drops 1 drp intranasal BID PRN Congestion 06/03/22 [History Confirmed 10/13/22] prednisone 5 mg tablet 5 mg PO DAILY 06/03/22 [History Confirmed 04/08/23] Hizintra 15 g SUBCUT QWEEK 08/25/22 [History Confirmed 04/08/23] fluticasone 500 mcg-salmeterol 50 mcg/dose blistr powdr for inhalation (Advair Diskus) 1 inh inhalation Q12H 08/25/22 [History Confirmed 04/08/23] aluminum-mag hydroxide-simethicone 200 mg-200 mg-20 mg/5 mL oral susp (Mag-Al Plus) 30 ml PO Q6HR PRN Dyspepsia #355 mL 08/28/22 [Rx Confirmed 04/08/23] calcium carbonate 200 mg calcium (500 mg) chewable tablet 1,000 mg (5 x 200 mg calcium (500 mg)) PO Q4HR PRN Dyspepsia #60 tabs 08/28/22 [Rx Confirmed 10/13/22] docusate sodium 100 mg capsule 100 mg PO BID #60 caps 08/28/22 [Rx Confirmed 04/08/23] potassium chloride 20 mEq/15 mL oral liquid 20 meq (15 mL) PO BIDWM #250 mL 08/28/22 [Rx Confirmed 04/08/23] sennosides 8.6 mg tablet (senna) 17.2 mg (2 x 8.6 mg) PO BEDTIME #60 tabs 08/28/22 [Rx Confirmed 10/13/22] fentanyl 12 mcg/hr transdermal patch 12 mcg transdermal SEEINSTR 10/13/22 [History Confirmed 04/08/23] warfarin 1 mg tablet 1 mg PO DAILY 10/13/22 [History Confirmed 04/08/23] furosemide 40 mg tablet 40 mg PO 0800 10/27/22 [History] meropenem 2 IV Q8HR PNA 10/27/22 [History] magnesium oxide 400 mg PO BID 04/08/23 [History Confirmed 04/08/23] metoprolol succinate 25 mg tablet,extended release 24 hr 12.5 mg PO DAILY 04/08/23 [History Confirmed 04/08/23] spironolactone 25 mg tablet 12.5 mg PO DAILY 04/08/23 [History Confirmed 04/08/23] torsemide 20 mg tablet 20 mg PO BID 04/08/23 [History Confirmed 04/08/23] Exam Vital Signs (past 8 hours): - 04/08/23 13:08 04/08/23 13:10 04/08/23 13:15 Temperature Pulse Rate 97 H 96 H Respiratory Rate 22 25 H Blood Pressure 131/79 131/79 Pulse Oximetry 90 L 96 Oxygen Delivery Method CPAP Oxygen Flow Rate Fraction of Inspired Oxygen 40 04/08/23 13:17 04/08/23 13:20 04/08/23 13:25 Temperature Pulse Rate 95 H 96 H Respiratory Rate 22 31 H Blood Pressure Pulse Oximetry 97 95 94 Oxygen Delivery Method CPAP Oxygen Flow Rate Fraction of Inspired Oxygen 04/08/23 13:30 04/08/23 13:35 04/08/23 13:40 Temperature Pulse Rate 94 H 94 H 95 H Respiratory Rate 30 H 32 H 33 H Blood Pressure Pulse Oximetry 94 96 96 Oxygen Delivery Method Oxygen Flow Rate Fraction of Inspired Oxygen 04/08/23 13:45 04/08/23 13:50 04/08/23 13:54 Temperature 101.1 F H 101.3 F H Pulse Rate 96 H 92 H 93 H Respiratory Rate 30 H 25 H 31 H Blood Pressure Pulse Oximetry 95 97 96 Oxygen Delivery Method CPAP Oxygen Flow Rate Fraction of Inspired Oxygen 04/08/23 13:54 04/08/23 13:55 04/08/23 14:00 Temperature 101.3 F H 101.5 F H Pulse Rate 93 H 91 H Respiratory Rate 31 H 24 Blood Pressure 110/72 Pulse Oximetry 96 94 Oxygen Delivery Method Oxygen Flow Rate Fraction of Inspired Oxygen 04/08/23 14:00 04/08/23 14:05 04/08/23 14:10 Temperature 101.5 F H 101.5 F H Pulse Rate 90 93 H Respiratory Rate 26 H 27 H Blood Pressure 116/60 Pulse Oximetry 95 97 Oxygen Delivery Method Oxygen Flow Rate Fraction of Inspired Oxygen 04/08/23 14:15 04/08/23 14:20 04/08/23 14:25 Temperature 101.5 F H 101.7 F H 101.7 F H Pulse Rate 91 H 91 H 90 Respiratory Rate 24 21 22 Blood Pressure Pulse Oximetry 97 96 94 Oxygen Delivery Method Oxygen Flow Rate Fraction of Inspired Oxygen 04/08/23 14:30 04/08/23 14:31 04/08/23 14:31 Temperature 101.7 F H 101.7 F H Pulse Rate 90 90 Respiratory Rate 22 23 Blood Pressure 104/46 L Pulse Oximetry 96 97 Oxygen Delivery Method Oxygen Flow Rate Fraction of Inspired Oxygen 04/08/23 14:35 04/08/23 14:40 04/08/23 14:45 Temperature 101.7 F H 101.7 F H 101.7 F H Pulse Rate 90 91 H 91 H Respiratory Rate 22 24 23 Blood Pressure Pulse Oximetry 95 96 96 Oxygen Delivery Method Oxygen Flow Rate Fraction of Inspired Oxygen 04/08/23 14:50 04/08/23 14:55 04/08/23 15:00 Temperature 101.5 F H 101.5 F H 101.5 F H Pulse Rate 93 H 91 H 89 Respiratory Rate 30 H 28 H 28 H Blood Pressure Pulse Oximetry 95 94 94 Oxygen Delivery Method Oxygen Flow Rate Fraction of Inspired Oxygen 04/08/23 15:01 04/08/23 15:01 04/08/23 15:05 Temperature 101.5 F H 101.3 F H Pulse Rate 89 88 Respiratory Rate 26 H 26 H Blood Pressure 105/52 L Pulse Oximetry 95 95 Oxygen Delivery Method Oxygen Flow Rate Fraction of Inspired Oxygen 04/08/23 15:10 04/08/23 15:15 04/08/23 15:20 Temperature 101.3 F H 101.1 F H 101.1 F H Pulse Rate 88 90 87 Respiratory Rate 29 H 21 25 H Blood Pressure Pulse Oximetry 95 95 95 Oxygen Delivery Method Oxygen Flow Rate Fraction of Inspired Oxygen 04/08/23 15:25 04/08/23 15:40 04/08/23 15:45 Temperature 100.9 F H 100.6 F H 100.4 F H Pulse Rate 87 91 H 92 H Respiratory Rate 19 30 H 30 H Blood Pressure Pulse Oximetry 93 93 91 Oxygen Delivery Method Oximask Oxygen Flow Rate 10 Fraction of Inspired Oxygen 04/08/23 15:50 04/08/23 15:55 04/08/23 16:00 Temperature 100.4 F H 100.2 F H 100.0 F H Pulse Rate 91 H 90 90 Respiratory Rate 29 H 22 22 Blood Pressure Pulse Oximetry 91 89 L 90 L Oxygen Delivery Method Oxygen Flow Rate Fraction of Inspired Oxygen 04/08/23 16:00 04/08/23 16:05 04/08/23 16:10 Temperature 100.0 F H 99.9 F H Pulse Rate 91 H 86 Respiratory Rate 30 H 17 Blood Pressure 100/54 L Pulse Oximetry 88 L 91 Oxygen Delivery Method Nasal Cannula Oxygen Flow Rate Fraction of Inspired Oxygen 04/08/23 16:15 04/08/23 16:15 04/08/23 16:20 Temperature 99.9 F H 99.9 F H Pulse Rate 84 84 Respiratory Rate 10 L 23 Blood Pressure 100/54 L Pulse Oximetry 92 93 Oxygen Delivery Method CPAP Oxygen Flow Rate Fraction of Inspired Oxygen 40 04/08/23 16:25 04/08/23 16:30 04/08/23 16:30 Temperature 99.7 F H 99.7 F H Pulse Rate 84 84 Respiratory Rate 27 H 22 Blood Pressure 104/52 L Pulse Oximetry 91 92 Oxygen Delivery Method Oxygen Flow Rate Fraction of Inspired Oxygen 04/08/23 16:33 04/08/23 16:35 04/08/23 16:40 Temperature 99.7 F H 99.7 F H Pulse Rate 84 86 Respiratory Rate 29 H 24 Blood Pressure Pulse Oximetry 92 92 Oxygen Delivery Method CPAP CPAP Oxygen Flow Rate Fraction of Inspired Oxygen 04/08/23 16:40 04/08/23 16:56 04/08/23 16:58 Temperature Pulse Rate 90 Respiratory Rate Blood Pressure 101/49 L 108/56 L Pulse Oximetry 95 Oxygen Delivery Method Oxygen Flow Rate Fraction of Inspired Oxygen 04/08/23 16:58 04/08/23 17:00 04/08/23 17:00 Temperature Pulse Rate 87 87 Respiratory Rate 24 23 Blood Pressure 108/59 L Pulse Oximetry 96 95 Oxygen Delivery Method Oxygen Flow Rate Fraction of Inspired Oxygen 04/08/23 17:05 04/08/23 17:10 04/08/23 17:15 Temperature Pulse Rate 88 89 87 Respiratory Rate 27 H 29 H 26 H Blood Pressure Pulse Oximetry 96 97 96 Oxygen Delivery Method Oxygen Flow Rate Fraction of Inspired Oxygen 04/08/23 17:20 04/08/23 17:25 04/08/23 17:30 Temperature 99.3 F 99.1 F Pulse Rate 87 86 85 Respiratory Rate 23 34 H 31 H Blood Pressure Pulse Oximetry 95 95 95 Oxygen Delivery Method Oxygen Flow Rate Fraction of Inspired Oxygen 04/08/23 17:35 04/08/23 17:40 04/08/23 17:45 Temperature 99.1 F 99.1 F 99.0 F Pulse Rate 88 83 83 Respiratory Rate 26 H 23 22 Blood Pressure Pulse Oximetry 95 95 95 Oxygen Delivery Method Oxygen Flow Rate Fraction of Inspired Oxygen 04/08/23 17:50 04/08/23 17:55 04/08/23 18:00 Temperature 99.0 F 98.8 F Pulse Rate 84 84 Respiratory Rate 18 19 Blood Pressure 112/61 Pulse Oximetry 95 94 Oxygen Delivery Method Oxygen Flow Rate Fraction of Inspired Oxygen 04/08/23 18:00 Temperature 98.8 F Pulse Rate 85 Respiratory Rate 19 Blood Pressure Pulse Oximetry 95 Oxygen Delivery Method Oxygen Flow Rate Fraction of Inspired Oxygen Fraction of Inspired Oxygen 40 Oxygen Delivery Method CPAP Oxygen Flow Rate 10 Narrative Exam Narrative: NAD; awake and following commands. Objective Labs 04/08/23 13:50 04/08/23 13:50 Labs: Laboratory Results - last 24 hr 04/08/23 04/08/23 04/08/23 13:15 13:25 13:30 WBC RBC Hgb Hct MCV MCH MCHC RDW Plt Count Neut % (Auto) Lymph % (Auto) Callahan % (Auto) Eos % (Auto) Baso % (Auto) Neut # (Auto) Lymph # (Auto) [place]ahan # (Auto) Eos # (Auto) Baso # (Auto) PT INR APTT ABG Sample Site Left brachial ABG pH 7.45 ABG pCO2 45.5 H ABG pO2 59 L ABG HCO3 32 H ABG Total CO2 33 H ABG O2 Saturation 91 L ABG Base Excess 8.0 H FiO2 40 Sodium Potassium Chloride Carbon Dioxide BUN Creatinine Estimated GFR BUN/Creatinine Ratio Glucose Lactate Calcium Total Bilirubin AST ALT Alkaline Phosphatase Total Creatine Kinase Troponin I NT-Pro-B Natriuret Pep Total Protein Albumin Globulin Albumin/Globulin Ratio Procalcitonin Urine Color Yellow Urine Appearance Sl cloudy Urine pH 8.5 H Ur Specific Viola 1.015 Urine Protein Negative Urine Glucose (UA) Negative Urine Ketones Negative Urine Occult Blood Negative Urine Nitrate Negative Urine Bilirubin Negative Urine Urobilinogen 0.2 Ur Leukocyte Esterase 2+ H Urine RBC 0-1/hpf Urine WBC 10-30/hpf H Ur Squamous Epith Cells None seen Urine Bacteria Many (>30) H Ur Culture Indicated? Specimen cultured Chlamy pneumoniae PCR Not detected Adenovirus (PCR) Not detected B.parapertussis DNA PCR Not detected Coronavirus OC43 (PCR) Not detected Coronavirus HKU1 (PCR) Not detected Coronavirus 229E (PCR) Not detected SARS-CoV-2 (PCR) Detected H Coronavirus NL63 (PCR) Not detected Human Metapneumovir PCR Not detected Influenza Type A (PCR) Not detected Influenza Type B (PCR) Not detected M. pneumoniae (PCR) Not detected Parainfluenza 1 (PCR) Not detected Parainfluenza 2 (PCR) Not detected Parainfluenza 3 (PCR) Not detected Parainfluenza 4 (PCR) Not detected RSV (PCR) Not detected Entero/Rhino (PCR) Not detected 04/08/23 13:50 WBC 8.7 RBC 4.33 Hgb 11.8 L Hct 35.9 L MCV 82.8 MCH 27.2 MCHC 32.8 RDW 17.9 H Plt Count 446 H Neut % (Auto) 71.5 Lymph % (Auto) 14.9 L Callahan % (Auto) 12.9 Eos % (Auto) 0.2 L Baso % (Auto) 0.5 Neut # (Auto) 6200 Lymph # (Auto) 1300 Callahan # (Auto) 1100 H Eos # (Auto) 0 Baso # (Auto) 0 PT 27.0 H INR 2.3 H APTT 40 H ABG Sample Site ABG pH ABG pCO2 ABG pO2 ABG HCO3 ABG Total CO2 ABG O2 Saturation ABG Base Excess FiO2 Sodium 134 L Potassium 4.3 Chloride 96 L Carbon Dioxide 33 H BUN 25 H Creatinine 1.06 H Estimated GFR 55 L BUN/Creatinine Ratio 23.6 H Glucose 148 H Lactate 1.4 Calcium 10.0 Total Bilirubin 0.5 AST 25 ALT 16 Alkaline Phosphatase 83 Total Creatine Kinase 31 Troponin I 0.013 NT-Pro-B Natriuret Pep 3470 H Total Protein 7.7 Albumin 3.7 Globulin 4.0 Albumin/Globulin Ratio 0.9 L Procalcitonin 0.05 Urine Color Urine Appearance Urine pH Ur Specific Viola Urine Protein Urine Glucose (UA) Urine Ketones Urine Occult Blood Urine Nitrate Urine Bilirubin Urine Urobilinogen Ur Leukocyte Esterase Urine RBC Urine WBC Ur Squamous Epith Cells Urine Bacteria Ur Culture Indicated? Chlamy pneumoniae PCR Adenovirus (PCR) B.parapertussis DNA PCR Coronavirus OC43 (PCR) Coronavirus HKU1 (PCR) Coronavirus 229E (PCR) SARS-CoV-2 (PCR) Coronavirus NL63 (PCR) Human Metapneumovir PCR Influenza Type A (PCR) Influenza Type B (PCR) M. pneumoniae (PCR) Parainfluenza 1 (PCR) Parainfluenza 2 (PCR) Parainfluenza 3 (PCR) Parainfluenza 4 (PCR) RSV (PCR) Entero/Rhino (PCR) Assessment & Plan Assessment & Plan narrative: NEURO: # Decondition -- Seek PT/OT and OOB as tolerated RESP: # Acute on chronic hypoxemia respiratory failure -- Secondary to COVID PNA w/superimposed pulmonary edema and ? bacterial PNA -- Recommend checking resp cx -- On levauqin -- COVID rx as below -- Recommend restarting home diuretic to seek net negative fluid balance -- Cont CPAP at night -- HOB elevation -- Aspiration precaution -- Goal SpO2 > 88% CVS: # Hx of CHF - Strict I/O -- Cont home diuretic -- High lytes goal ID: # COVID PNA -- Cont decadron and remdesivir -- On contact, airborne, and droplet precautions # Concern for bacterial PNA -- Agree with levaquin -- Follow up resp cx HEME: # DVT -- Cont comadin -- Goal INR 2-3 ENDO: -- Goal BS < 180 Time Spent With Patient Time with patient: 30 to 49 minutes with 50% spent counseling/coordinating care
--- NOTE | 2023-04-08 18:34 | PC.ADMIT ---
Addendum entered by Claudia Mcdowell R.N. 04/08/23 18:38: 1830 Pt able to come off CPAP to eat and drink, placed on 15L HFNC Original Note: [email or web address] No Cadet Admission Note: The patient,Radha Zavaleta,73 y/o, was given written information regarding hospital policies, unit procedures and contact persons. Patient's smoking status: Never smoker. Vital Signs - 8 hr 04/08/23 13:08 04/08/23 13:10 04/08/23 13:15 Temperature Pulse Rate 97 H 96 H Respiratory Rate 22 25 H Blood Pressure 131/79 131/79 Pulse Oximetry 90 L 96 Oxygen Delivery Method CPAP Oxygen Flow Rate Fraction of Inspired Oxygen 40 04/08/23 13:17 04/08/23 13:20 04/08/23 13:25 Temperature Pulse Rate 95 H 96 H Respiratory Rate 22 31 H Blood Pressure Pulse Oximetry 97 95 94 Oxygen Delivery Method CPAP Oxygen Flow Rate Fraction of Inspired Oxygen 04/08/23 13:30 04/08/23 13:35 04/08/23 13:40 Temperature Pulse Rate 94 H 94 H 95 H Respiratory Rate 30 H 32 H 33 H Blood Pressure Pulse Oximetry 94 96 96 Oxygen Delivery Method Oxygen Flow Rate Fraction of Inspired Oxygen 04/08/23 13:45 04/08/23 13:50 04/08/23 13:54 Temperature 101.1 F H 101.3 F H Pulse Rate 96 H 92 H 93 H Respiratory Rate 30 H 25 H 31 H Blood Pressure Pulse Oximetry 95 97 96 Oxygen Delivery Method CPAP Oxygen Flow Rate Fraction of Inspired Oxygen 04/08/23 13:54 04/08/23 13:55 04/08/23 14:00 Temperature 101.3 F H 101.5 F H Pulse Rate 93 H 91 H Respiratory Rate 31 H 24 Blood Pressure 110/72 Pulse Oximetry 96 94 Oxygen Delivery Method Oxygen Flow Rate Fraction of Inspired Oxygen 04/08/23 14:00 04/08/23 14:05 04/08/23 14:10 Temperature 101.5 F H 101.5 F H Pulse Rate 90 93 H Respiratory Rate 26 H 27 H Blood Pressure 116/60 Pulse Oximetry 95 97 Oxygen Delivery Method Oxygen Flow Rate Fraction of Inspired Oxygen 04/08/23 14:15 04/08/23 14:20 04/08/23 14:25 Temperature 101.5 F H 101.7 F H 101.7 F H Pulse Rate 91 H 91 H 90 Respiratory Rate 24 21 22 Blood Pressure Pulse Oximetry 97 96 94 Oxygen Delivery Method Oxygen Flow Rate Fraction of Inspired Oxygen 04/08/23 14:30 04/08/23 14:31 04/08/23 14:31 Temperature 101.7 F H 101.7 F H Pulse Rate 90 90 Respiratory Rate 22 23 Blood Pressure 104/46 L Pulse Oximetry 96 97 Oxygen Delivery Method Oxygen Flow Rate Fraction of Inspired Oxygen 04/08/23 14:35 04/08/23 14:40 04/08/23 14:45 Temperature 101.7 F H 101.7 F H 101.7 F H Pulse Rate 90 91 H 91 H Respiratory Rate 22 24 23 Blood Pressure Pulse Oximetry 95 96 96 Oxygen Delivery Method Oxygen Flow Rate Fraction of Inspired Oxygen 04/08/23 14:50 04/08/23 14:55 04/08/23 15:00 Temperature 101.5 F H 101.5 F H 101.5 F H Pulse Rate 93 H 91 H 89 Respiratory Rate 30 H 28 H 28 H Blood Pressure Pulse Oximetry 95 94 94 Oxygen Delivery Method Oxygen Flow Rate Fraction of Inspired Oxygen 04/08/23 15:01 04/08/23 15:01 04/08/23 15:05 Temperature 101.5 F H 101.3 F H Pulse Rate 89 88 Respiratory Rate 26 H 26 H Blood Pressure 105/52 L Pulse Oximetry 95 95 Oxygen Delivery Method Oxygen Flow Rate Fraction of Inspired Oxygen 04/08/23 15:10 04/08/23 15:15 04/08/23 15:20 Temperature 101.3 F H 101.1 F H 101.1 F H Pulse Rate 88 90 87 Respiratory Rate 29 H 21 25 H Blood Pressure Pulse Oximetry 95 95 95 Oxygen Delivery Method Oxygen Flow Rate Fraction of Inspired Oxygen 04/08/23 15:25 04/08/23 15:40 04/08/23 15:45 Temperature 100.9 F H 100.6 F H 100.4 F H Pulse Rate 87 91 H 92 H Respiratory Rate 19 30 H 30 H Blood Pressure Pulse Oximetry 93 93 91 Oxygen Delivery Method Oximask Oxygen Flow Rate 10 Fraction of Inspired Oxygen 04/08/23 15:50 04/08/23 15:55 04/08/23 16:00 Temperature 100.4 F H 100.2 F H 100.0 F H Pulse Rate 91 H 90 90 Respiratory Rate 29 H 22 22 Blood Pressure Pulse Oximetry 91 89 L 90 L Oxygen Delivery Method Oxygen Flow Rate Fraction of Inspired Oxygen 04/08/23 16:00 04/08/23 16:05 04/08/23 16:10 Temperature 100.0 F H 99.9 F H Pulse Rate 91 H 86 Respiratory Rate 30 H 17 Blood Pressure 100/54 L Pulse Oximetry 88 L 91 Oxygen Delivery Method Nasal Cannula Oxygen Flow Rate Fraction of Inspired Oxygen 04/08/23 16:15 04/08/23 16:15 04/08/23 16:20 Temperature 99.9 F H 99.9 F H Pulse Rate 84 84 Respiratory Rate 10 L 23 Blood Pressure 100/54 L Pulse Oximetry 92 93 Oxygen Delivery Method CPAP Oxygen Flow Rate Fraction of Inspired Oxygen 40 04/08/23 16:25 04/08/23 16:30 04/08/23 16:30 Temperature 99.7 F H 99.7 F H Pulse Rate 84 84 Respiratory Rate 27 H 22 Blood Pressure 104/52 L Pulse Oximetry 91 92 Oxygen Delivery Method Oxygen Flow Rate Fraction of Inspired Oxygen 04/08/23 16:33 04/08/23 16:35 04/08/23 16:40 Temperature 99.7 F H 99.7 F H Pulse Rate 84 86 Respiratory Rate 29 H 24 Blood Pressure Pulse Oximetry 92 92 Oxygen Delivery Method CPAP CPAP Oxygen Flow Rate Fraction of Inspired Oxygen 04/08/23 16:40 04/08/23 16:40 04/08/23 16:56 Temperature Pulse Rate 90 Respiratory Rate Blood Pressure 101/49 L Pulse Oximetry 95 Oxygen Delivery Method Oxygen Flow Rate Fraction of Inspired Oxygen 50 04/08/23 16:58 04/08/23 16:58 04/08/23 17:00 Temperature Pulse Rate 87 Respiratory Rate 24 Blood Pressure 108/56 L 108/59 L Pulse Oximetry 96 Oxygen Delivery Method Oxygen Flow Rate Fraction of Inspired Oxygen 04/08/23 17:00 04/08/23 17:05 04/08/23 17:10 Temperature Pulse Rate 87 88 89 Respiratory Rate 23 27 H 29 H Blood Pressure Pulse Oximetry 95 96 97 Oxygen Delivery Method Oxygen Flow Rate Fraction of Inspired Oxygen 04/08/23 17:15 04/08/23 17:20 04/08/23 17:25 Temperature 99.3 F Pulse Rate 87 87 86 Respiratory Rate 26 H 23 34 H Blood Pressure Pulse Oximetry 96 95 95 Oxygen Delivery Method Oxygen Flow Rate Fraction of Inspired Oxygen 04/08/23 17:30 04/08/23 17:35 04/08/23 17:40 Temperature 99.1 F 99.1 F 99.1 F Pulse Rate 85 88 83 Respiratory Rate 31 H 26 H 23 Blood Pressure Pulse Oximetry 95 95 95 Oxygen Delivery Method Oxygen Flow Rate Fraction of Inspired Oxygen 04/08/23 17:45 04/08/23 17:50 04/08/23 17:55 Temperature 99.0 F 99.0 F 98.8 F Pulse Rate 83 84 84 Respiratory Rate 22 18 19 Blood Pressure Pulse Oximetry 95 95 94 Oxygen Delivery Method Oxygen Flow Rate Fraction of Inspired Oxygen 04/08/23 18:00 04/08/23 18:00 04/08/23 18:05 Temperature 98.8 F 98.8 F Pulse Rate 85 84 Respiratory Rate 19 20 Blood Pressure 112/61 Pulse Oximetry 95 95 Oxygen Delivery Method Oxygen Flow Rate Fraction of Inspired Oxygen 04/08/23 18:10 04/08/23 18:15 04/08/23 18:20 Temperature 98.8 F 98.6 F 98.4 F Pulse Rate 85 84 87 Respiratory Rate 21 18 33 H Blood Pressure Pulse Oximetry 95 94 95 Oxygen Delivery Method Oxygen Flow Rate Fraction of Inspired Oxygen 04/08/23 18:23 04/08/23 18:25 Temperature 98.6 F Pulse Rate 87 Respiratory Rate 30 H Blood Pressure Pulse Oximetry 95 97 Oxygen Delivery Method High Flow Nasal Cannula Oxygen Flow Rate 12 Fraction of Inspired Oxygen Pt arrived via gurney from ED, RT at bedside, slide board used to move pt to bed, monitoring equipment connected, Dr Mansfield at bedside, VSS, pt placed back on CPap at 50% SpO2 95-97%. Oriented to room and call light system, Lucas at bedside, both pt and positive for COVID, isolation restrictions in place and explained. No further needs at this time
[2023-04-08 18:43] LABS: MRSA (Nasal) PCR Not Detected (Not Detect)
[2023-04-08] MEDS: ALBUTEROL/IPRATROPIUM 3 ML AMPUL INH (19:55)
[2023-04-08] MEDS: BUDESONIDE 0.5 MG/2 ML NEB INH (19:55)
[2023-04-08] MEDS: OXYCODONE IR 5 MG TABLET 15 MG PO (20:13)
[2023-04-08] MEDS: guaiFENesin ER 600 MG TAB 1200 MG PO (20:42)
[2023-04-08] MEDS: NORTRIPTYLINE HCL 25 MG CAPSULE PO (20:43)
[2023-04-08] MEDS: PRAMIPEXOLE 0.25 MG TABLET 0.5 MG PO (20:43)
[2023-04-08] MEDS: MAGNESIUM OXIDE 400 MG TABLET PO (20:43)
[2023-04-08] MEDS: ATORVASTATIN 20 MG TABLET 40 MG PO (20:43)
[2023-04-08] MEDS: SENNOSIDES 8.6 MG TABLET 17.2 MG PO (20:43)
[2023-04-08] MEDS: MONTELUKAST 10 MG TABLET PO (20:43)
[2023-04-08] MEDS: cloNIDine 0.1 MG TABLET 0.05 MG PO (20:44)
[2023-04-08] MEDS: DOCUSATE 100 MG CAPSULE PO (20:44)
[2023-04-08] MEDS: INSULIN GLARGINE 100 UNIT/ML 3ML PEN 30 UNIT SUBCUT (21:29)
[2023-04-08] MEDS: INSULIN LISPRO 100 UNIT/ML 3ML VIAL SUBCUT (21:30)
[2023-04-09] VITALS (81 sets, daily range): BP systolic 72–137; BP diastolic 50–98; PULSE 72–153; RESP 13–51; TEMP 36.4–37.2; O2SAT 91–100
[2023-04-09] MEDS: ALBUTEROL/IPRATROPIUM 3 ML AMPUL INH ×3 (00:33→20:10)
[2023-04-09] MEDS: OXYCODONE IR 5 MG TABLET 15 MG PO ×2 (00:43→08:20)
[2023-04-09] MEDS: TIZANIDINE 4 MG TABLET PO (04:16)
[2023-04-09 05:14] LABS: Add Manual Diff / Slide Review NO; Basophils Absolute Auto 0 /uL (0-100); Basophils Percent Auto 0.3 % (0-2); Eosinophils Absolute Auto 0 /uL (0-450); Hematocrit 30.3 % (36-46); Lymphocytes Absolute Auto 700 /uL (1100-4500); Lymphocytes Percent Auto 11.8 % (25-40); Mean Corpuscular Hemoglobin 27.1 PG (26-34); Mean Corpuscular Volume 82.1 fL (80-100); Monocytes Absolute Auto 500 /uL (0-900); Monocytes Percent Auto 7.9 % (3-14); Neutrophils Absolute Auto 4800 /uL (1500-7000); Platelet Count 365 X10^3/uL (150-400); Red Blood Cell Count 3.69 X10^6/uL (4.0-5.2); Red Cell Distribution Width 17.8 % (11.6-14.8); White Blood Cell Count 5.9 X10^3/uL (4.5-11.0)
[2023-04-09 05:15] LABS: INR 2.2 (0.9-1.3); Prothrombin Time 25.7 SECONDS (9.4-12.5)
[2023-04-09 05:21] LABS: Alanine Aminotransferase 15 IU/L (<35); Albumin 3.1 g/dL (3.5-5.0); Albumin Globulin Ratio 0.9 (1.0-2.8); Alkaline Phosphatase 65 U/L (38-126); Aspartate Aminotransferase 21 IU/L (14-36); BUN Creatinine Ratio 27.1 (6-22); Bilirubin Total 0.3 mg/dL (0.2-1.3); Blood Urea Nitrogen 29 mg/dL (7-17); Calcium 9.3 mg/dL (8.4-10.2); Carbon Dioxide 32 mmol/L (22-32); Chloride 93 mmol/L (98-107); Estimated Glomerular Filt Rate 54 mL/min (>60); Globulin 3.5 g/dL (1.7-4.1); Glucose 235 mg/dL (80-110); HEMOLYSIS < 15 (0-50); Potassium 4.7 mmol/L (3.4-5.1); Sodium 131 mmol/L (137-145); Total Protein 6.6 g/dL (6.3-8.2)
[2023-04-09] MEDS: LEVOTHYROXINE 75 MCG TABLET PO (06:26)
[2023-04-09] MEDS: INSULIN LISPRO 100 UNIT/ML 3ML VIAL SUBCUT ×4 (07:53→20:32)
[2023-04-09] MEDS: POTASSIUM CHLORIDE 20 MEQ TAB 40 MEQ PO ×2 (08:20→16:47)
[2023-04-09] MEDS: cloNIDine 0.1 MG TABLET 0.05 MG PO ×2 (08:21→20:29)
[2023-04-09] MEDS: METOPROLOL ER 25 MG TABLET 12.5 MG PO (08:23)
[2023-04-09] MEDS: SPIRONOLACTONE 25 MG TABLET 12.5 MG PO (08:25)
[2023-04-09] MEDS: PANTOPRAZOLE DR 40 MG TABLET PO ×2 (08:25→20:29)
[2023-04-09] MEDS: guaiFENesin ER 600 MG TAB 1200 MG PO ×2 (08:26→20:28)
[2023-04-09] MEDS: MAGNESIUM OXIDE 400 MG TABLET PO ×2 (08:26→20:29)
[2023-04-09] MEDS: DULOXETINE 30 MG CAPSULE PO (08:26)
[2023-04-09] MEDS: DOCUSATE 100 MG CAPSULE PO (08:26)
[2023-04-09] MEDS: DEXAMETHASONE 10 MG/ML VIAL 6 MG IV (08:27)
[2023-04-09] MEDS: TORSEMIDE 10 MG TABLET 40 MG PO (08:28)
[2023-04-09] MEDS: REMDESIVIR 100 MG in SODIUM CHLORIDE 0.9% 250 ML 250 MG IV (08:28)
[2023-04-09] MEDS: predniSONE 5 MG TABLET PO (08:29)
[2023-04-09] MEDS: ALBUTEROL 2.5 MG/3 ML NEB (ADULT) INH (09:23)
[2023-04-09] MEDS: BUDESONIDE 0.5 MG/2 ML NEB INH ×2 (09:33→20:10)
[2023-04-09] MEDS: NYSTATIN POWDER 15GM 1 APPLIC TOP (10:04)
--- NOTE | 2023-04-09 12:04 | P.PN_ITS ---
Subjective Subjective Interval history: 73 F admitted with acute on chronic respiratory failure due to COVID. Has been on 4-5 L O2 at home. Now on 9-10 L this morning. Feels better today. Has L thigh pain for the past couple of weeks. She would like to trial pregabalin for pain again, she was previously on it but taken off for jerkiness which has not improved at all. Exam Vital Signs (past 8 hours): - 04/09/23 04:38 04/09/23 04:38 04/09/23 05:00 Temperature 98.2 F 98.4 F Pulse Rate 79 79 Respiratory Rate 36 H 28 H Blood Pressure 127/78 113/64 Pulse Oximetry 100 98 Oxygen Delivery Method Oxygen Flow Rate 10 04/09/23 05:00 04/09/23 05:00 04/09/23 06:00 Temperature 98.4 F Pulse Rate 80 Respiratory Rate 22 Blood Pressure 113/64 106/65 Pulse Oximetry 99 Oxygen Delivery Method Oxygen Flow Rate 04/09/23 06:00 04/09/23 07:00 04/09/23 07:01 Temperature 98.8 F 98.8 F Pulse Rate 82 89 Respiratory Rate 23 23 Blood Pressure 122/66 Pulse Oximetry 99 99 Oxygen Delivery Method Oxygen Flow Rate 04/09/23 07:01 04/09/23 07:35 04/09/23 07:35 Temperature 98.8 F 99.0 F Pulse Rate 83 89 Respiratory Rate 24 51 H Blood Pressure 129/81 Pulse Oximetry 99 97 Oxygen Delivery Method Oxygen Flow Rate 04/09/23 08:00 04/09/23 08:01 04/09/23 08:01 Temperature 99.0 F 99.0 F Pulse Rate 125 H 101 H Respiratory Rate 50 H 38 H Blood Pressure 137/98 H Pulse Oximetry 98 97 Oxygen Delivery Method Oxygen Flow Rate 04/09/23 08:21 04/09/23 08:23 04/09/23 08:59 Temperature 99.0 F Pulse Rate 100 H 100 H 83 Respiratory Rate 26 H Blood Pressure 128/81 128/81 Pulse Oximetry 98 Oxygen Delivery Method Oxygen Flow Rate 04/09/23 09:00 04/09/23 09:00 04/09/23 09:23 Temperature 99.0 F Pulse Rate 82 75 Respiratory Rate 32 H 20 Blood Pressure 118/80 Pulse Oximetry 97 98 Oxygen Delivery Method High Flow Nasal Cannula Humidification Oxygen Flow Rate 10 04/09/23 09:33 04/09/23 09:42 04/09/23 10:00 Temperature Pulse Rate 75 75 Respiratory Rate 20 Blood Pressure 118/80 118/73 Pulse Oximetry 98 Oxygen Delivery Method High Flow Nasal Cannula Humidification Oxygen Flow Rate 10 04/09/23 10:00 Temperature 98.6 F Pulse Rate 101 H Respiratory Rate 32 H Blood Pressure Pulse Oximetry 97 Oxygen Delivery Method Oxygen Flow Rate Fraction of Inspired Oxygen 100 SaO2/FiO2 Ratio 95 Oxygen Delivery Method High Flow Nasal Cannula,Humidification Oxygen Flow Rate 10 Narrative Exam Narrative: Gen: alert, responsive, no acute distress Lungs: able to speak short sentences, bilateral basilar rhonchi CV: tachycardic, irregularly irregular Abd: soft, no mass Ext: trace pedal edema, chronic venous stasis dermatitis Neuro: alert, mentating well, speech nl, no focal weakness Objective Labs 04/09/23 04:25 04/09/23 04:25 Labs: Laboratory Results - last 24 hr 04/08/23 04/08/23 04/08/23 13:15 13:25 13:30 WBC RBC Hgb Hct MCV MCH MCHC RDW Plt Count Neut % (Auto) Lymph % (Auto) [place] % (Auto) Eos % (Auto) Baso % (Auto) Neut # (Auto) Lymph # (Auto) [place] # (Auto) Eos # (Auto) Baso # (Auto) PT INR APTT ABG Sample Site Left brachial ABG pH 7.45 ABG pCO2 45.5 H ABG pO2 59 L ABG HCO3 32 H ABG Total CO2 33 H ABG O2 Saturation 91 L ABG Base Excess 8.0 H FiO2 40 Sodium Potassium Chloride Carbon Dioxide BUN Creatinine Estimated GFR BUN/Creatinine Ratio Glucose Lactate Calcium Total Bilirubin AST ALT Alkaline Phosphatase Total Creatine Kinase Troponin I NT-Pro-B Natriuret Pep Total Protein Albumin Globulin Albumin/Globulin Ratio Procalcitonin Urine Color Yellow Urine Appearance Sl cloudy Urine pH 8.5 H Ur Specific [place] 1.015 Urine Protein Negative Urine Glucose (UA) Negative Urine Ketones Negative Urine Occult Blood Negative Urine Nitrate Negative Urine Bilirubin Negative Urine Urobilinogen 0.2 Ur Leukocyte Esterase 2+ H Urine RBC 0-1/hpf Urine WBC 10-30/hpf H Ur Squamous Epith Cells None seen Urine Bacteria Many (>30) H Ur Culture Indicated? Specimen cultured Nasal Screen MRSA (PCR) Chlamy pneumoniae PCR Not detected Adenovirus (PCR) Not detected B.parapertussis DNA PCR Not detected Coronavirus OC43 (PCR) Not detected Coronavirus HKU1 (PCR) Not detected Coronavirus 229E (PCR) Not detected SARS-CoV-2 (PCR) Detected H Coronavirus NL63 (PCR) Not detected Human Metapneumovir PCR Not detected Influenza Type A (PCR) Not detected Influenza Type B (PCR) Not detected M. pneumoniae (PCR) Not detected Parainfluenza 1 (PCR) Not detected Parainfluenza 2 (PCR) Not detected Parainfluenza 3 (PCR) Not detected Parainfluenza 4 (PCR) Not detected RSV (PCR) Not detected Entero/Rhino (PCR) Not detected 04/08/23 04/08/23 04/09/23 13:50 17:18 04:25 WBC 8.7 5.9 RBC 4.33 3.69 L Hgb 11.8 L 10.0 L Hct 35.9 L 30.3 L MCV 82.8 82.1 MCH 27.2 27.1 MCHC 32.8 33.0 RDW 17.9 H 17.8 H Plt Count 446 H 365 Neut % (Auto) 71.5 80.0 H Lymph % (Auto) 14.9 L 11.8 L [place] % (Auto) 12.9 7.9 Eos % (Auto) 0.2 L 0.0 L Baso % (Auto) 0.5 0.3 Neut # (Auto) 6200 4800 Lymph # (Auto) 1300 700 L [place] # (Auto) 1100 H 500 Eos # (Auto) 0 0 Baso # (Auto) 0 0 PT 27.0 H 25.7 H INR 2.3 H 2.2 H APTT 40 H ABG Sample Site ABG pH ABG pCO2 ABG pO2 ABG HCO3 ABG Total CO2 ABG O2 Saturation ABG Base Excess FiO2 Sodium 134 L 131 L Potassium 4.3 4.7 Chloride 96 L 93 L Carbon Dioxide 33 H 32 BUN 25 H 29 H Creatinine 1.06 H 1.07 H Estimated GFR 55 L 54 L BUN/Creatinine Ratio 23.6 H 27.1 H Glucose 148 H 235 H Lactate 1.4 Calcium 10.0 9.3 Total Bilirubin 0.5 0.3 AST 25 21 ALT 16 15 Alkaline Phosphatase 83 65 Total Creatine Kinase 31 Troponin I 0.013 NT-Pro-B Natriuret Pep 3470 H Total Protein 7.7 6.6 Albumin 3.7 3.1 L Globulin 4.0 3.5 Albumin/Globulin Ratio 0.9 L 0.9 L Procalcitonin 0.05 Urine Color Urine Appearance Urine pH Ur Specific [place] Urine Protein Urine Glucose (UA) Urine Ketones Urine Occult Blood Urine Nitrate Urine Bilirubin Urine Urobilinogen Ur Leukocyte Esterase Urine RBC Urine WBC Ur Squamous Epith Cells Urine Bacteria Ur Culture Indicated? Nasal Screen MRSA (PCR) Not detected Chlamy pneumoniae PCR Adenovirus (PCR) B.parapertussis DNA PCR Coronavirus OC43 (PCR) Coronavirus HKU1 (PCR) Coronavirus 229E (PCR) SARS-CoV-2 (PCR) Coronavirus NL63 (PCR) Human Metapneumovir PCR Influenza Type A (PCR) Influenza Type B (PCR) M. pneumoniae (PCR) Parainfluenza 1 (PCR) Parainfluenza 2 (PCR) Parainfluenza 3 (PCR) Parainfluenza 4 (PCR) RSV (PCR) Entero/Rhino (PCR) [facility] Medical History Anticoagulated Pneumonia Wears glasses Eczema Osteoarthritis Bronchiectasis (~2006) Sleep apnea Asthma (~1959) Abnormal chest xray (~1979) Restless leg syndrome Migraines (~1965) Shoulder pain (~03/2018) Osteopenia Degenerative joint disease of spine (~2001) Foot pain Fibromyalgia Chronic back pain Cervical spine disease Ankle pain MRSA (methicillin resistant Staphylococcus aureus) (~2002) Anemia Hoarseness Recurrent sinusitis (~1970) Colon polyps (~2015) Hypothyroidism Diabetes mellitus, type II (~2009) Hypertension Hyperlipidemia Nail bed carcinoma Pneumonia Surgical History Anesthesia History of thumb surgery History of carpal tunnel release History of spinal fusion (~2012) History of laminectomy (~2002) History of section History of cataract removal with insertion of prosthetic lens (~2014) Family History Father Stroke Mother Hypertension Brother Cerebral aneurysm Prostate cancer Diabetes mellitus Hypertension Stroke Brother Arthritis Hyperlipidemia Hypertension Sister History of kidney cancer Hypertension Grandfather Cancer Grandmother Cancer Other Family history non-contributory Social History marital status: household members: spouse lives independently: Yes occupational status: previously employed Smoking Status: Never smoker alcohol intake: current substance use type: does not use Assessment & Plan Assessment & Plan narrative: 1. Acute on chronic hypoxic respiratory failure -CXR similar to previous -treat for COVID with dexamethasone and remdesevir until back at usual 5L of O2. Currently on 9-10 L. -empirically cover bacterial with Levaquin (pt currently on doxy x weeks) -BIPAP prn, RT to manage -Duoneb q4h and prn albuterol. -sputum culture ordered -requested recent sputum culture results from [facility] -downgrade from ICU. 2. 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 -cont other routine cardiac meds (metoprolol, spironolactone, atorvastatin, magnesium) 3. COVID-19 -WBC and procal nl -treat with dexamethsone and remdesivir -also maintain pt's chronic daily prednsione 5 mg qd -daily labs 4. Chronic anticoagulation for hx of DVT/PE -INR therapeutic -cont warfarin 1 mg qPM. warfarin per pharmacy -daily INR 5. Diabetes insulin requiring -cont Lantus -insulin s/s -continue to hold home metformin 6. Chronic pain -cont on fentanyl patch and oxycodone prn -cont nortriptyline and duloxetine -added pregabalin which patient had previously been taking on 04/09. 7. Hypothyroidism -cont pt's levothyroxine Code status: limited, no CPR, intubation allowed Surrogate: Spouse, Lucas Zavaleta I spent 30 minutes providing critical care management this patient. This excludes time spent in performing separately billed procedures. Dispo: downgrade to acute care. Anticipate discharge in 3-4 days when oxygenation improved back to baseline.
[2023-04-09] MEDS: PREGABALIN 50 MG CAPSULE 100 MG PO (12:28)
--- NOTE | 2023-04-09 14:18 | CM.DANOTE ---
DCP Assessment Note Pt is a 73yo F admitted with resp failure due to COVID. 4-5ltrs O2 at home, currently on 10 ltrs. PCP Karin [facility] and self pay INTRUSION ANALYST reviewed EMR. 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 Hx of home infusion from prior admission. Pt lives with Harjeet (retired ortha PA, also COVID pos) in [place]. Per provider in rounds, pt likely here for a few days until pt can tolerate baseline level of O2. Plan: home with spouse when stable. Consider HH referral if needed, CM team will confirm if [facility] can accept pt back or not. Consider PT eval if needed. CM team will continue to follow closely. MACKENZIE Concepcion Discharge Planning/Care Management Advanced directive, confirm from FAMILY Start: 04/08/23 17:46 Freq: Q24H Status: Active Protocol: Document 04/08/23 17:46 MS (Rec: 04/08/23 18:08 MS [id number]) Advance Directive, confirm on record Time 18:07 Person contacted patient Copy received No CM Discharge Assessment Start: 04/09/23 14:15 Freq: Status: Active Protocol: Document 04/09/23 14:15 SL (Rec: 04/09/23 14:18 [id number]) Discharge Planning Assessment Assigned Tank Truck Loader MACKENZIE Canales DPOA/Assigned Designee Name Harjeet (spouse) Contact Information [phone] Advance Directives? Yes: Advance Directive Advance Directives on File No History Provided By Patient,Significant Other, Medical Record Prior Living Arrangements House Household Members spouse Type of transporation used prior to Relies on Others admit Independent with ADL's No Is patient alert and oriented? Yes Needs Assistance With Bathing,Meal Prep,Managing Medications,Home Chores / Shopping Community Services used prior to Oxygen Therapy,Home Health Aid admission: Comment [facility]x [facility] D[facility] Already Rented / Owned Bath Bench,Wheelchair,FWW / Walker,Oxygen Comment Has shower chair as well, home oxygen is through [employer]. 5 ltrs at baseline. Comment medically and physically fragile. return home w/spouse, who is a retired Orthopedic PA-C Discharge Plan Home Transportation Arrangement Spouse bedside and can provide transport home when stable. Consider resumption of HH services if appropriate Referrals Initiated None needed Additional Comment resumption of [facility] services potentially. Confirm [facility] can accept pt if appropriate for [facility] Whiteboard Updated in Patient Room with No name and ext. # of Tank Truck Loader Comment Pt COVID pos Review Status In Process Next Review Type Continued Stay Review
[2023-04-09] MEDS: WARFARIN 1 MG TABLET PO (16:47)
[2023-04-09] MEDS: NORTRIPTYLINE HCL 25 MG CAPSULE PO (20:29)
[2023-04-09] MEDS: PRAMIPEXOLE 0.25 MG TABLET 0.5 MG PO (20:29)
[2023-04-09] MEDS: MONTELUKAST 10 MG TABLET PO (20:29)
[2023-04-09] MEDS: ATORVASTATIN 20 MG TABLET 40 MG PO (20:29)
[2023-04-09] MEDS: INSULIN GLARGINE 100 UNIT/ML 3ML PEN 30 UNIT SUBCUT (20:31)
[2023-04-10] VITALS (21 sets, daily range): BP systolic 106–144; BP diastolic 59–85; PULSE 61–137; RESP 12–39; TEMP 36.8–37.2; O2SAT 85–100
[2023-04-10 05:04] LABS: Add Manual Diff / Slide Review NO; Basophils Absolute Auto 0 /uL (0-100); Basophils Percent Auto 0.2 % (0-2); Eosinophils Absolute Auto 0 /uL (0-450); Hematocrit 29.5 % (36-46); Hemoglobin 9.7 g/dL (12.0-16.0); Lymphocytes Absolute Auto 1400 /uL (1100-4500); Lymphocytes Percent Auto 22.5 % (25-40); Mean Corpuscular HGB Conc 32.9 % (30-36); Mean Corpuscular Hemoglobin 26.9 PG (26-34); Mean Corpuscular Volume 81.8 fL (80-100); Monocytes Absolute Auto 700 /uL (0-900); Monocytes Percent Auto 10.6 % (3-14); Neutrophils Absolute Auto 4300 /uL (1500-7000); Neutrophils Percent Auto 66.7 % (50-75); Platelet Count 354 X10^3/uL (150-400); Red Blood Cell Count 3.61 X10^6/uL (4.0-5.2); Red Cell Distribution Width 17.8 % (11.6-14.8); White Blood Cell Count 6.4 X10^3/uL (4.5-11.0)
[2023-04-10 05:10] LABS: INR 1.9 (0.9-1.3); Prothrombin Time 21.9 SECONDS (9.4-12.5)
[2023-04-10 05:16] LABS: Alanine Aminotransferase 14 IU/L (<35); Albumin 3.1 g/dL (3.5-5.0); Albumin Globulin Ratio 0.9 (1.0-2.8); Alkaline Phosphatase 61 U/L (38-126); Aspartate Aminotransferase 20 IU/L (14-36); BUN Creatinine Ratio 29.4 (6-22); Bilirubin Total 0.3 mg/dL (0.2-1.3); Blood Urea Nitrogen 30 mg/dL (7-17); Calcium 8.9 mg/dL (8.4-10.2); Carbon Dioxide 31 mmol/L (22-32); Chloride 98 mmol/L (98-107); Estimated Glomerular Filt Rate 57 mL/min (>60); Globulin 3.4 g/dL (1.7-4.1); Glucose 164 mg/dL (80-110); HEMOLYSIS < 15 (0-50); Potassium 3.7 mmol/L (3.4-5.1); Sodium 136 mmol/L (137-145); Total Protein 6.5 g/dL (6.3-8.2)
[2023-04-10] MEDS: LEVOTHYROXINE 75 MCG TABLET PO (08:02)
[2023-04-10] MEDS: cloNIDine 0.1 MG TABLET 0.05 MG PO (08:09)
[2023-04-10] MEDS: TORSEMIDE 10 MG TABLET 40 MG PO (08:10)
[2023-04-10] MEDS: guaiFENesin ER 600 MG TAB 1200 MG PO (08:10)
[2023-04-10] MEDS: PANTOPRAZOLE DR 40 MG TABLET PO (08:10)
[2023-04-10] MEDS: PREGABALIN 50 MG CAPSULE 100 MG PO (08:10)
[2023-04-10] MEDS: SPIRONOLACTONE 25 MG TABLET 12.5 MG PO (08:11)
[2023-04-10] MEDS: DULOXETINE 30 MG CAPSULE PO (08:11)
[2023-04-10] MEDS: METOPROLOL ER 25 MG TABLET 12.5 MG PO (08:11)
[2023-04-10] MEDS: POTASSIUM CHLORIDE 20 MEQ TAB 40 MEQ PO (08:11)
[2023-04-10] MEDS: DEXAMETHASONE 10 MG/ML VIAL 6 MG IV (08:12)
[2023-04-10] MEDS: DOCUSATE 100 MG CAPSULE PO (08:12)
[2023-04-10] MEDS: MAGNESIUM OXIDE 400 MG TABLET PO (08:12)
[2023-04-10] MEDS: ALBUTEROL/IPRATROPIUM 3 ML AMPUL INH ×2 (09:04→12:15)
[2023-04-10] MEDS: BUDESONIDE 0.5 MG/2 ML NEB INH (09:12)
--- NOTE | 2023-04-10 11:46 | P.DS_ITS ---
History of Present Illness History of Present Illness Date Patient Seen: 04/10/23 Time Patient Seen: 11:00 Chief complaint: pneumonia Narrative: Per admitting provider, 73-year-old female nonsmoker, history of CVID, mitral stenosis, HFpEF, chronic respiratory failure on 5 L home O2, DVT on warfarin with IVC filter, prior pulmonary emboli in October 2021, diabetes on insulin, sleep apnea, hypothyroid, history of adrenal insufficiency, hypertension, dyslipidemia, fibromyalgia and GERD presents with complaint of difficulty with breathing and decreased mental status. Pt tested COVID + in ED. She developed fever, increased dyspnea and wheezing in the past 24 hours. tested + for COVID a few days ago. Pt is frequently on abx for respiratory infections. She is followed by Dr Whalen for ID and most recently has been on doxycycline for the last few weeks. Spouse states she had another sputum culture a few days ago which is growing H. influenza but sensitivities weren't back yet. The plan had been to keep her on doxy until her scheduled transcatheter mitral valve replacement on April 25 at [facility]. Spouse indicates pt was last hospitalized in December at [facility] and had 60 pounds of excess fluid diuresis. Also had transcatheter septal alcohol ablation during or around the time of that admission. Pt was tried on HFNC in the ED and then placed on BIPAP with improvement. ABG pH 7.45, pCO2 45, pO2 59 on 40% FIO2. CXR personally reviewed and shows low lung volumes, possible bibasilar opacities similar or improved from prior imaging. LABS -WBC nl, procal nl, BNP 3470, INR 2.3, lactate nl, UA 10-30 WBC and many bacteria. Discharge Providers Provider Date of admission: 04/08/23 16:30 Discharge Date: 04/10/23 Primary care physician: Karin Porter MD Consults: 04/08/23 17:18 Consult to Tele-elementary school band director Routine Comment: Consulting Provider: [employer] Reason for consultation: Hospice Nurse Practitioner services Has provider been notified: Yes Discharge provider: Harjeet Nance DO Summary Hospital Course Discharge Diagnosis: 1. Sepsis with Acute on chronic hypoxic respiratory failure and acute metabolic encephalopathy secondary to COVID 19 and H. influenzae pneumonia 2. HFpEF, severe mitral stenosis 3. COVID-19 4. Chronic anticoagulation for hx of DVT/PE 5. Diabetes insulin requiring 6. Chronic pain 7. Hypothyroidism Hospital Course: 73-year-old female nonsmoker, history of CVID, mitral stenosis, HFpEF, chronic respiratory failure on 5 L home O2, DVT on warfarin with IVC filter, prior pulmonary emboli in October 2021, diabetes on insulin, sleep apnea, hypothyroid, history of adrenal insufficiency, hypertension, dyslipidemia, fibromyalgia and GERD who presented with acute on chronic respiratory failure and confusion in the setting of a COVID 19 infection. Sputum culture also grew H. influenzae. She was improving with steroids, remdesevir and levofloxacin (due to penicillin and cephalosporin allergy). She improved much more quickly than expected, and on the day of discharge she felt much improved with return to her usual 4-5L of home oxygen. Her remdesevir and dexamethasone were stopped. She was prescribed another few days of levofloxacin for treatment of H. flu. She did not appear volume overloaded, though her home torsemide was continued on discharge. No other changes to her home medications were recommended. Would recommend resumption of lyrica as patient was complaining of hypersensitivity of L thigh after discussion with PCP. Time Spent with Patient Time spent: Greater than 30 minutes Exam Vital Signs (past 8 hours): - 04/10/23 04:00 04/10/23 07:00 04/10/23 07:27 Temperature 98.6 F Pulse Rate 71 61 Respiratory Rate 16 18 Blood Pressure 144/77 H Pulse Oximetry 100 98 Oxygen Delivery Method Nasal Cannula Humidification High Flow Nasal Cannula Humidification Oxygen Flow Rate 7 6 Fraction of Inspired Oxygen 44 04/10/23 08:00 04/10/23 08:09 04/10/23 08:11 Temperature 98.2 F Pulse Rate 87 Respiratory Rate 20 Blood Pressure 121/63 132/85 132/85 Pulse Oximetry 95 Oxygen Delivery Method Oxygen Flow Rate 7 Fraction of Inspired Oxygen 04/10/23 09:04 04/10/23 09:12 Temperature Pulse Rate 61 82 Respiratory Rate 20 20 Blood Pressure Pulse Oximetry 98 93 Oxygen Delivery Method High Flow Nasal Cannula Humidification High Flow Nasal Cannula Oxygen Flow Rate 6 6 Fraction of Inspired Oxygen 44 44 Fraction of Inspired Oxygen 44 SaO2/FiO2 Ratio 211 Oxygen Delivery Method High Flow Nasal Cannula Oxygen Flow Rate 6 Narrative Exam Narrative: Gen: alert, responsive, no acute distress Lungs: able to speak short sentences, bilateral basilar rhonchi CV: irregularly irregular with normal rate Abd: soft, Non-distended Ext: trace pedal edema, chronic venous stasis dermatitis Neuro: alert, mentating well, speech nl, no focal weakness Objective Labs 04/10/23 04:30 04/10/23 04:30 Labs: Laboratory Results - last 24 hr 04/10/23 04:30 WBC 6.4 RBC 3.61 L Hgb 9.7 L Hct 29.5 L MCV 81.8 MCH 26.9 MCHC 32.9 RDW 17.8 H Plt Count 354 Neut % (Auto) 66.7 Lymph % (Auto) 22.5 L [place] % (Auto) 10.6 Eos % (Auto) 0.0 L Baso % (Auto) 0.2 Neut # (Auto) 4300 Lymph # (Auto) 1400 [place] # (Auto) 700 Eos # (Auto) 0 Baso # (Auto) 0 PT 21.9 H INR 1.9 H Sodium 136 L Potassium 3.7 Chloride 98 Carbon Dioxide 31 BUN 30 H Creatinine 1.02 Estimated GFR 57 L BUN/Creatinine Ratio 29.4 H Glucose 164 H Calcium 8.9 Total Bilirubin 0.3 AST 20 ALT 14 Alkaline Phosphatase 61 Total Protein 6.5 Albumin 3.1 L Globulin 3.4 Albumin/Globulin Ratio 0.9 L PFSH Medical History Anticoagulated Pneumonia Wears glasses Eczema Osteoarthritis Bronchiectasis (~2006) Sleep apnea Asthma (~1959) Abnormal chest xray (~1979) Restless leg syndrome Migraines (~1964) Shoulder pain (~03/2018) Osteopenia Degenerative joint disease of spine (~2001) Foot pain Fibromyalgia Chronic back pain Cervical spine disease Ankle pain MRSA (methicillin resistant Staphylococcus aureus) (~2002) Anemia Hoarseness Recurrent sinusitis (~1970) Colon polyps (~2015) Hypothyroidism Diabetes mellitus, type II (~2009) Hypertension Hyperlipidemia Nail bed carcinoma Pneumonia Surgical History Anesthesia History of thumb surgery History of carpal tunnel release History of spinal fusion (~2012) History of laminectomy (~2002) History of section History of cataract removal with insertion of prosthetic lens (~2014) Family History Father Stroke Mother Hypertension Brother Cerebral aneurysm Prostate cancer Diabetes mellitus Hypertension Stroke Brother Arthritis Hyperlipidemia Hypertension Sister History of kidney cancer Hypertension Grandfather Cancer Grandmother Cancer Other Family history non-contributory Social History marital status: household members: spouse lives independently: Yes occupational status: previously employed Smoking Status: Never smoker alcohol intake: current substance use type: does not use Discharge Plan Discharge Plan Patient Disposition: Home Provider Discharge Comment: You were admitted to the hospital with respiratory failure due to COVID. You can return to your previous dose of prednisone tomorrow. Continue levofloxacin for the bacterial pneumonia found for another 5 days. Discharge orders & Medications Prescriptions: New levofloxacin 750 mg tablet 750 mg PO DAILY 5 Days Qty: 5 0RF Continued polyethylene glycol 3350 [Miralax] 119 GM powder 17 gm PO DAILY PRN (Reason: Constipation) Qty: 0 ondansetron HCl [Zofran] 4 mg tablet 4 mg PO Q8H PRN (Reason: nausea and vomiting) Qty: 30 1RF (DME) insulin syringe-needle U-100 [BD Insulin Syringe Ultra-Fine] 0.5 mL 31 gauge x 5/16 syringe See Rx Instructions .ROUTE .MEDSUPPLY Qty: 100 1RF Rx Instructions: Use once a day as directed metformin 1,000 mg tablet 1,000 mg PO BID Qty: 180 0RF (DME) verio reflect glucometer Qty: 1 0RF Rx Instructions: As directed ferrous sulfate 325 mg (65 mg iron) tablet 325 mg PO BEDTIME tizanidine 4 mg capsule 4 mg PO QID PRN (Reason: Muscle Spasm) cholecalciferol (vitamin D3) 2,000 unit tablet 2,000 unit PO DAILY albuterol sulfate 90 mcg/actuation HFA aerosol inhaler 2 puff INHALATION Q4-6H PRN (Reason: Shortness Of Breath) lansoprazole [Prevacid 24Hr] 15 mg Capsule,Delayed Release(Dr/Ec) 30 mg PO BID fentanyl 25 mcg/hr patch 72 hour 1 patch transdermal Q72H PRN (Reason: pain (scale score 1-3)) Qty: 5 0RF Patient Comments: placed today at home omega-3 fatty acids Capsule 1,000 mg PO DAILY fluticasone propion-salmeterol [Advair Diskus] 500-50 mcg/dose Blister With Device 1 inh INHALATION Q12H Hizintra 15 g auto-injector 15 g SUBCUT QWEEK calcium carbonate 200 mg calcium (500 mg) Tablet,Chewable 1,000 mg PO Q4HR PRN (Reason: Dyspepsia) Qty: 60 0RF docusate sodium 100 mg Capsule 100 mg PO BID Qty: 60 0RF alum-mag hydroxide-simeth [Mag-Al Plus] 200-200-20 mg/5 mL Suspension 30 ml PO Q6HR PRN (Reason: Dyspepsia) Qty: 355 0RF sennosides [senna] 8.6 mg Tablet 17.2 mg PO BEDTIME Qty: 60 0RF potassium chloride 20 mEq/15 mL Liquid 20 meq PO BIDWM Qty: 250 0RF metoprolol succinate 25 mg tablet extended release 24 hr 12.5 mg PO DAILY torsemide 20 mg tablet 20 mg PO BID spironolactone 25 mg tablet 12.5 mg PO DAILY magnesium oxide 400 mg magnesium Tablet 400 mg PO BID sodium chloride 3 % Solution For Nebulization 3 ml INHALATION BID Rx Instructions: use w/ nebulizer 2 x daily montelukast [Singulair] 10 mg Tablet 10 mg PO BEDTIME Zyrtec 10 mg Capsule 10 mg PO DAILY atorvastatin 40 mg Tablet 40 mg PO BEDTIME levothyroxine 75 mcg Tablet 75 mcg PO QAM nortriptyline 25 mg Capsule 25 mg PO BEDTIME epinephrine [EpiPen] 0.3 mg/0.3 mL Auto-Injector 0.3 mg IM Q5-15M PRN (Reason: Allergic Reaction) Rx Instructions: do not exceed 3 doses per episode tiotropium bromide [Spiriva with HandiHaler] 18 mcg Capsule, W/Inhalation Device 1 cap INHALATION DAILY Rx Instructions: puncture 1 cap using device; one dose = 2 inhalations insulin glargine 100 unit/mL solution 30 unit SUBCUT QAM insulin lispro [Humalog KwikPen Insulin] 100 unit/mL insulin pen 4 - 8 unit SUBCUT TID pramipexole 0.5 mg tablet 0.5 mg PO BEDTIME fluticasone propion-salmeterol [Wixela Inhub] 500-50 mcg/dose Blister With Device 1 inh INHALATION BID duloxetine 30 mg Capsule,Delayed Release(Dr/Ec) 30 mg PO DAILY oxycodone-acetaminophen [Percocet] 10-325 mg Tablet 1 tab PO Q4H PRN (Reason: Pain (Scale Score 4-6)) guaifenesin [Mucinex] 1,200 mg Tablet Extended Release 12hr 1,200 mg PO BID clonidine HCl 0.1 mg tablet 0.05 mg PO BID prednisone 5 mg tablet 5 mg PO DAILY [id number] 50-325-40 mg Tablet 1 tab PO Q6H PRN (Reason: Migraine Headache) oxycodone 5 mg Capsule 15 mg PO Q6H PRN (Reason: Pain (Scale Score 7-10)) oxymetazoline 0.05 % Drops 1 drp INTRANASAL BID PRN (Reason: Congestion) Fasenra 30 mg/mL Syringe 30 mg SUBCUT Q8W fentanyl 12 mcg/hr patch 72 hour 12 mcg transdermal SEEINSTR Patient Comments: apply 1 patch to CLEAN, DRY, AND INTACT SKIN every 72 hours Rx Instructions: Q72HR in addition to 25mcg patch warfarin 1 mg tablet 1 mg PO DAILY Follow up/Referrals: Karin Porter MD [Primary Care Provider] - Diet/Activity/Treatments Diet: Diet as Tolerated and Regular Activity: As tolerated, no restrictions Visit Report/Discharge Packet Instructions: DI for Prescription Opioid Use Stand Alone Forms: Patient Portal/API, Stroke Signs & Symptoms Discharge Data Primary Care Provider: Karin Porter
[2023-04-10] MEDS: INSULIN LISPRO 100 UNIT/ML 3ML VIAL SUBCUT (11:53)
--- NOTE | 2023-04-10 12:20 | CM.DPNOTE ---
DCP Note PSYCHIATRIC REGISTERED NURSE reviewed EMR. Per provider in rounds, pt closer to baseline O2 at this time, likely to dc home today. No PT needs at the moment. Per RN, pt moving well and doing well with transferring yesterday and today. Plan: dc home today with spouse support, no CM needs identified at this time. CM team will continue to follow as needed. Isabela Montes, MACKENZIE
[2023-04-10] MEDS: OXYCODONE IR 5 MG TABLET 15 MG PO (13:30)
[2023-04-10] MEDS: levoFLOXacin 250 MG TABLET 750 MG PO (14:10)
== END 2023-04-10 15:03 | disposition home or self-care (01) | DRG 871 ==
LOC: ED 13:14 → AC 16:33 → ICU 17:00
PROVIDERS: Admitting Provider Internal Medicine; Emergency Provider Emergency Medicine; Family Provider Internal Medicine Infectious Disease; PCP Internal Medicine; Referring Provider Emergency Medicine; Visit Provider Internal Medicine
DX: A41.9 Sepsis, unspecified organism (principal); G93.41 Metabolic encephalopathy; J12.82 Pneumonia due to coronavirus disease 2019; U07.1 COVID-19; J96.21 Acute and chronic respiratory failure with hypoxia; J14 Pneumonia due to Hemophilus influenzae; I50.30 Unspecified diastolic (congestive) heart failure; I05.0 Rheumatic mitral stenosis; E11.9 Type 2 diabetes mellitus without complications; G89.29 Other chronic pain; E03.9 Hypothyroidism, unspecified; R65.20 Severe sepsis without septic shock; E78.5 Hyperlipidemia, unspecified; K21.9 Gastro-esophageal reflux disease without esophagitis; I11.0 Hypertensive heart disease with heart failure; M79.7 Fibromyalgia; Z79.01 Long term (current) use of anticoagulants; Z99.81 Dependence on supplemental oxygen; Z86.711 Personal history of pulmonary embolism; Z86.718 Personal history of other venous thrombosis and embolism; Z79.4 Long term (current) use of insulin; Z79.84 Long term (current) use of oral hypoglycemic drugs
CPT/HCPCS: 36415; 36600; 71045; 80053; 81001; 82550; 82805; 82962; 83605; 83880; 84145; 84484; 85025; 85610; 85730; 87040; 87070; 87077; 87086; 87185; 87186; 87205; 87633; 87797; 93005; 94640; 94660; 94762; 96365; 96367; 96375; 99285; 99291; J0131; J1100; J1815; J1956; J2930; J3010; J7613

== ENCOUNTER 2023-05-06 18:04 | Emergency (ER) | payer OTHER, SELFPAY ==
[2023-04-08 16:15] VITALS: PULSE 86
[2023-04-08 16:33] VITALS: BMI 35.1
[2023-04-08 16:40] VITALS: RESP 18; O2SAT 94
[2023-05-06] VITALS (18 sets, daily range): BP systolic 96–133; BP diastolic 53–67; PULSE 65–76; RESP 12–35; TEMP 31–37.8; O2SAT 90–97; BMI 34.7
--- NOTE | 2023-05-06 18:11 | ED_ITS ---
HPI - SOB/Dyspnea General Chief Complaint: Shortness of Breath/Dyspnea Stated Complaint: SOB Time Seen by Provider: 05/06/23 18:11 Source: patient, family, RN notes reviewed and old records reviewed Mode of arrival: EMS Limitations: altered mental status History of Present Illness HPI Narrative: 73-year-old female nonsmoker, history of CHF with plan mitral valve replacement on May 15, 2023, chronic respiratory failure on 5 L home O2, prior DVT on warfarin with IVC filter, prior pulmonary emboli and applied 2021, diabetes, sleep apnea, hypothyroid, history of adrenal insufficiency, hypertension, dyslipidemia, fibromyalgia and GERD. Patient had recent hospitalization on 04/22/2023 at [facility] coli in sputum was changed from meropenem to ertapenem. Last IV dose was at 1:00 p.m.. Patient has a PICC line that they use regularly. Has been states she is on all her regular medications. He states he has been taking them regularly. She was discharged the day before yesterday seemed to be doing well but was a little bit less active this morning and has become increasingly lethargic as the day goes by. He notes she did have a hospitalization for COVID with hypoxia and received remdesivir around [facility]. Patient can indicate her name, can indicate she short of breath but falls asleep fairly easily. Majority of history obtrained from . Related Data Home Medications Medication Instructions Recorded Confirmed polyethylene glycol 3350 17 17 gm PO DAILY PRN Constipation ##0 06/06/17 04/08/23 gram/dose oral powder (Miralax) albuterol sulfate 90 mcg/actuation 2 puff inhalation Q4-6H PRN 05/29/19 04/08/23 aerosol inhaler Shortness Of Breath cholecalciferol (vitamin D3) 50 2,000 unit PO DAILY 05/29/19 04/08/23 mcg (2,000 unit) tablet ferrous sulfate 325 mg (65 mg 325 mg PO BEDTIME 05/29/19 04/08/23 iron) tablet tizanidine 4 mg capsule 4 mg PO QID PRN Muscle Spasm 05/29/19 04/08/23 sodium chloride 3 % for 3 ml inhalation BID 06/05/19 04/08/23 nebulization cetirizine 10 mg capsule (Zyrtec) 10 mg PO DAILY allergies 01/20/20 04/08/23 montelukast 10 mg tablet 10 mg PO BEDTIME 01/20/20 04/08/23 (Singulair) atorvastatin 40 mg tablet 40 mg PO BEDTIME 04/20/21 04/08/23 epinephrine 0.3 mg/0.3 mL 0.3 mg IM Q5-15M PRN Allergic 04/20/21 04/08/23 injection, auto-injector (EpiPen) Reaction insulin glargine 100 unit/mL 30 unit SUBCUT QAM 04/20/21 04/08/23 subcutaneous solution insulin lispro 100 unit/mL 4 - 8 unit SUBCUT TID 04/20/21 04/08/23 subcutaneous pen (Humalog KwikPen (U-100) Insulin) levothyroxine 75 mcg tablet 75 mcg PO QAM 04/20/21 04/08/23 nortriptyline 25 mg capsule 25 mg PO BEDTIME 04/20/21 04/08/23 tiotropium bromide 18 mcg capsule 1 cap inhalation DAILY 04/20/21 04/08/23 with inhalation device (Spiriva with HandiHaler) lansoprazole 15 mg capsule,delayed 30 mg PO BID 04/29/21 04/08/23 release (Prevacid 24Hr) duloxetine 30 mg capsule,delayed 30 mg PO DAILY 06/28/21 04/08/23 release fluticasone 500 mcg-salmeterol 50 1 inh inhalation BID 06/28/21 04/08/23 mcg/dose blistr powdr for inhalation (Wixela Inhub) guaifenesin 1,200 mg tablet, 1,200 mg PO BID 06/28/21 04/08/23 extended release 12 hr (Mucinex) oxycodone-acetaminophen 10 mg-325 1 tab PO Q4H PRN Pain (Scale Score 06/28/21 04/08/23 mg tablet (Percocet) 4-6) pramipexole 0.5 mg tablet 0.5 mg PO BEDTIME 06/28/21 04/08/23 omega-3 fatty acids 1,000 mg PO DAILY 04/24/22 04/08/23 benralizumab 30 mg/mL subcutaneous 30 mg SUBCUT Q8W 06/03/22 04/08/23 syringe (Fasenra) abfdsulysj-mcphstvwzdwrr-tjixkeen 1 tab PO Q6H PRN Migraine Headache 06/03/22 04/08/23 50 mg-325 mg-40 mg tablet clonidine HCl 0.1 mg tablet 0.05 mg PO BID 06/03/22 04/08/23 oxycodone 5 mg capsule 15 mg PO Q6H PRN Pain (Scale Score 06/03/22 04/08/23 7-10) oxymetazoline 0.05 % nasal drops 1 drp intranasal BID PRN Congestion 06/03/22 04/08/23 prednisone 5 mg tablet 5 mg PO DAILY 06/03/22 04/08/23 Hizintra 15 g SUBCUT QWEEK 08/25/22 04/08/23 fluticasone 500 mcg-salmeterol 50 1 inh inhalation Q12H 08/25/22 04/08/23 mcg/dose blistr powdr for inhalation (Advair Diskus) fentanyl 12 mcg/hr transdermal 12 mcg transdermal SEEINSTR 10/13/22 04/08/23 patch warfarin 1 mg tablet 1 mg PO DAILY 10/13/22 04/08/23 magnesium oxide 400 mg PO BID 04/08/23 04/08/23 metoprolol succinate 25 mg 12.5 mg PO DAILY 04/08/23 04/08/23 tablet,extended release 24 hr spironolactone 25 mg tablet 12.5 mg PO DAILY 04/08/23 04/08/23 torsemide 20 mg tablet 20 mg PO BID 04/08/23 04/08/23 Previous Rx's Medication Instructions Recorded ondansetron HCl 4 mg tablet 4 mg PO Q8H PRN nausea and 10/06/19 (Zofran) vomiting #30 tabs verio reflect glucometer #1 ea 01/28/20 insulin syringe-needle U-100 0.5 #100 ea 03/30/20 mL 31 gauge x 5/16 (BD Insulin Syringe Ultra-Fine) metformin 1,000 mg tablet 1,000 mg PO BID #180 tabs 09/03/20 fentanyl 25 mcg/hr transdermal 1 patch transdermal Q72H PRN pain 02/05/22 patch (scale score 1-3) #5 ea aluminum-mag hydroxide-simethicone 30 ml PO Q6HR PRN Dyspepsia #355 mL 08/28/22 200 mg-200 mg-20 mg/5 mL oral susp (Mag-Al Plus) calcium carbonate 200 mg calcium 1,000 mg (5 x 200 mg calcium (500 08/28/22 (500 mg) chewable tablet mg)) PO Q4HR PRN Dyspepsia #60 tabs docusate sodium 100 mg capsule 100 mg PO BID #60 caps 08/28/22 potassium chloride 20 mEq/15 mL 20 meq (15 mL) PO BIDWM #250 mL 08/28/22 oral liquid sennosides 8.6 mg tablet (senna) 17.2 mg (2 x 8.6 mg) PO BEDTIME 08/28/22 #60 tabs Allergies Allergy/AdvReac Type Severity Reaction Status Date / Time piperacillin [From Zosyn] Allergy Severe Rash Verified 04/08/23 17:46 tazobactam [From Zosyn] Allergy Severe Rash Verified 04/08/23 17:46 hydroxychloroquine Allergy Unknown Verified 04/08/23 13:14 [HYDROXYCHLOROQUINE] cefepime AdvReac Intermediate pruritis Verified 04/08/23 13:14 promethazine [From Phenergan] AdvReac Agitated Verified 04/08/23 13:14 Review of Systems Review of Systems ROS Unobtainable: All systems reviewed & are unremarkable except as noted in HPI and below Patient History Medical History Anticoagulated Pneumonia Wears glasses Eczema Osteoarthritis Bronchiectasis (~2006) Sleep apnea Asthma (~1959) Abnormal chest xray (~1979) Restless leg syndrome Migraines (~1965) Shoulder pain (~03/2018) Osteopenia Degenerative joint disease of spine (~2001) Foot pain Fibromyalgia Chronic back pain Cervical spine disease Ankle pain MRSA (methicillin resistant Staphylococcus aureus) (~2002) Anemia Hoarseness Recurrent sinusitis (~1970) Colon polyps (~2015) Hypothyroidism Diabetes mellitus, type II (~2009) Hypertension Hyperlipidemia Nail bed carcinoma Pneumonia Surgical History Anesthesia History of thumb surgery History of carpal tunnel release History of spinal fusion (~2012) History of laminectomy (~2002) History of section History of cataract removal with insertion of prosthetic lens (~2014) Family History Father Stroke Mother Hypertension Brother Cerebral aneurysm Prostate cancer Diabetes mellitus Hypertension Stroke Brother Arthritis Hyperlipidemia Hypertension Sister History of kidney cancer Hypertension Grandfather Cancer Grandmother Cancer Other Family history non-contributory Social History marital status: household members: spouse lives independently: Yes occupational status: previously employed Smoking Status: Never smoker alcohol intake: current substance use type: does not use Smoking Status: Never smoker alcohol intake frequency: holidays/special occasions only Substance Use Type: does not use Exam Narrative Exam Narrative: GENERAL: Patient responds to verbal stimuli but is slightly somnolent. HEENT: Head normocephalic, atraumatic, EOMI, pupils reactive, face symmetric, moist mucous membranes NECK: Supple, full range of motion CARDIOVASCULAR: Regular rate and rhythm without murmurs, rubs or gallops. Trace edema bilateral lower extremities, no pitting edema. No JVD. RESPIRATORY: Breath sounds decreased bilaterally but somewhat difficult to assess due to body habitus, no wheezes rales or rhonchi appreciated. Positive for tachypnea. No accessory muscle use. ABDOMEN: Soft, nontender. Non-distended. Normoactive bowel sounds all 4 quadrants. No guarding or rebound, rigidity, no mass : No CVA tenderness EXTREMITIES: Normal range of motion, no clubbing. Neurovascularly intact NEUROLOGICAL: Cranial nerves II through XII grossly intact. Moving all extremities SKIN: Warm, dry, no petechiae, no rashes or lesions appreciated. Initial Vital Signs Initial Vital Signs: Vital Signs Temperature 100.1 F H 05/06/23 18:09 Pulse Rate 65 05/06/23 18:09 Respiratory Rate 26 H 05/06/23 18:09 Blood Pressure 123/67 05/06/23 18:09 Pulse Oximetry 92 05/06/23 18:09 Oxygen Delivery Method Simple Mask 05/06/23 18:09 Oxygen Flow Rate 6 05/06/23 18:09 Course Orders Ordered: ED Orders 05/06/23 20:50 Trop I [Troponin I] Stat 05/06/23 21:57 EC echo doppler complete Stat Discontinued Medications Albuterol (Albuterol 2.5 Mg/3 Ml Neb (Adult)) 2.5 mg INH NOW ONE Stop: 05/07/23 02:58 Last Admin: 05/07/23 03:36 Dose: 2.5 mg Albuterol/Ipratropium (Albuterol/Ipratropium 3 Ml Ampul) 3 ml INH [id number] CARMELO Furosemide (Furosemide 40 Mg/4 Ml Vial) 40 mg IV NOW ONE Stop: 05/06/23 19:48 Last Admin: 05/06/23 20:24 Dose: 40 mg Documented By: TEVIN Furosemide (Furosemide 40 Mg/4 Ml Vial) 40 mg IV NOW ONE Stop: 05/07/23 02:44 Last Admin: 05/07/23 02:52 Dose: 40 mg Sodium Chloride (Normal Saline 0.9%) 1,000 mls @ 125 mls/hr IV CONT CARMELO Last Admin: 05/06/23 23:06 Dose: 125 mls/hr Documented By: COSME Levofloxacin (Levaquin) 750 mg in 150 mls @ 100 mls/hr IV NOW ONE Stop: 05/07/23 02:31 Last Admin: 05/07/23 01:18 Dose: 100 mls/hr Documented By: GEORGINAG Sodium Chloride (Normal Saline 0.9%) 500 mls @ 1,000 mls/hr IV BOLUS ONE Stop: 05/07/23 01:31 Last Admin: 05/07/23 04:09 Dose: Not Given Ertapenem 1 gm/ Sodium (Chloride) 100 mls @ 200 mls/hr IV Q24H CARMELO NOREPINEPHRINE BITARTRATE/D5W (Levophed) 4 mg in 250 mls @ 30.277 mls/hr IV TITRATE CARMELO; Protocol Last Titration: 05/07/23 05:03 Dose: 0 mcg/kg/min, 0 mls/hr Insulin Human Lispro (Insulin Lispro 100 Unit/Ml 3ml Vial) 0 unit SUBCUT ACHS CARMELO; Protocol Methylprednisolone (Methylprednisolone 125 Mg/2 Ml Vial) 125 mg IV NOW ONE Stop: 05/06/23 18:24 Last Admin: 05/06/23 18:29 Dose: 125 mg Documented By: JAMES Vital Signs Vital signs: Vital Signs - 8 hr 05/06/23 22:00 05/06/23 22:00 05/06/23 22:30 Pulse Rate 66 65 Respiratory Rate 18 18 Blood Pressure 99/54 L Pulse Oximetry 92 93 Oxygen Delivery Method BiPAP Oxygen Flow Rate 05/06/23 22:59 05/06/23 22:59 05/06/23 23:00 Pulse Rate 68 67 Respiratory Rate 23 21 Blood Pressure 98/62 Pulse Oximetry 92 94 Oxygen Delivery Method BiPAP Oxygen Flow Rate 05/06/23 23:00 05/06/23 23:30 05/06/23 23:30 Pulse Rate 74 Respiratory Rate 26 H Blood Pressure 100/55 L 96/53 L Pulse Oximetry 94 Oxygen Delivery Method BiPAP Oxygen Flow Rate 05/07/23 00:00 05/07/23 00:00 05/07/23 00:30 Pulse Rate 74 Respiratory Rate 23 Blood Pressure 99/57 L 93/70 Pulse Oximetry 89 L Oxygen Delivery Method Oxygen Flow Rate 05/07/23 00:30 05/07/23 01:00 05/07/23 01:19 Pulse Rate 79 75 Respiratory Rate 22 19 Blood Pressure 85/50 L Pulse Oximetry 94 96 Oxygen Delivery Method BiPAP Oxygen Flow Rate 05/07/23 01:19 05/07/23 01:22 05/07/23 01:22 Pulse Rate 72 75 Respiratory Rate 23 20 Blood Pressure 107/57 L Pulse Oximetry 95 Oxygen Delivery Method BiPAP Oxygen Flow Rate 05/07/23 01:30 05/07/23 01:30 05/07/23 02:00 Pulse Rate 77 78 Respiratory Rate 22 21 Blood Pressure 95/52 L Pulse Oximetry 95 90 L Oxygen Delivery Method BiPAP BiPAP Oxygen Flow Rate 05/07/23 02:00 05/07/23 02:30 05/07/23 02:30 Pulse Rate 77 Respiratory Rate 19 Blood Pressure 96/54 L 94/55 L Pulse Oximetry 87 L Oxygen Delivery Method BiPAP Oxygen Flow Rate 05/07/23 03:00 05/07/23 03:00 05/07/23 03:30 Pulse Rate 68 67 Respiratory Rate 23 21 Blood Pressure 111/56 L Pulse Oximetry 99 97 Oxygen Delivery Method BiPAP BiPAP Oxygen Flow Rate 05/07/23 03:30 05/07/23 03:40 05/07/23 04:00 Pulse Rate 69 Respiratory Rate 18 Blood Pressure 103/54 L Pulse Oximetry 95 91 Oxygen Delivery Method BiPAP Oxygen Flow Rate 6.5 05/07/23 04:00 05/07/23 04:30 05/07/23 04:30 Pulse Rate 86 Respiratory Rate 38 H Blood Pressure 100/55 L 92/54 L Pulse Oximetry 90 L Oxygen Delivery Method BiPAP Oxygen Flow Rate 05/07/23 04:55 Pulse Rate 87 Respiratory Rate 20 Blood Pressure 123/67 Pulse Oximetry 98 Oxygen Delivery Method BiPAP Oxygen Flow Rate MDM - SOB/Dyspnea Lab Data 05/06/23 18:40 05/06/23 18:40 Labs: Lab Results 05/06/23 05/06/23 05/06/23 Range/Units 18:35 18:37 18:40 WBC 12.3 H (4.5-11.0) X10^3/uL RBC 4.55 (4.0-5.2) X10^6/uL Hgb 12.1 (12.0-16.0) g/dL Hct 37.5 (36-46) % MCV 82.6 (80-100) fL MCH 26.6 (26-34) PG MCHC 32.2 (30-36) % RDW 19.4 H (11.6-14.8) % Plt Count 607 H (150-400) X10^3/uL Neut % (Auto) 91.3 H (50-75) % Lymph % (Auto) 2.2 L (25-40) % [place] % (Auto) 6.3 (3-14) % Eos % (Auto) 0.0 L (2-4) % Baso % (Auto) 0.2 (0-2) % Neut # (Auto) 59029 H (3147-1128) /uL Lymph # (Auto) 300 L (1605-2103) /uL [place] # (Auto) 800 (0-900) /uL Eos # (Auto) 0 (0-450) /uL Baso # (Auto) 0 (0-100) /uL PT 65.0 H (9.4-12.5) SECONDS INR 5.6 H* (0.9-1.3) APTT 51 H (25.1-36.5) SECONDS ABG Sample Site Left radial ABG pH 7.46 H (7.35-7.45) ABG pCO2 45.0 (35-45) mmHg ABG pO2 57 L (80-100) mmHg ABG HCO3 32 H (23-27) mmol/L ABG Total CO2 33 H (23-27) mmol/L ABG O2 Saturation 91 L (95-100) % ABG Base Excess 8.0 H (-2-3) mmol/L FiO2 44 Sodium 136 L (137-145) mmol/L Potassium 5.3 H (3.4-5.1) mmol/L Chloride 91 L (98-107) mmol/L Carbon Dioxide 36 H (22-32) mmol/L BUN 33 H (7-17) mg/dL Creatinine 1.16 H (0.52-1.04) mg/dL Estimated GFR 49 L (>60) mL/min BUN/Creatinine Ratio 28.4 H (6-22) Glucose 131 H (80-110) mg/dL Lactate 2.5 H (0.7-2.1) mmol/L Calcium 10.3 H (8.4-10.2) mg/dL Total Bilirubin 0.7 (0.2-1.3) mg/dL AST 23 (14-36) IU/L ALT 18 (<35) IU/L Alkaline Phosphatase 91 (38-126) U/L Total Creatine Kinase < 20 L (30-135) U/L Troponin I 0.058 H (0.01-0.034) ng/mL NT-Pro-B Natriuret Pep 5370 H (<450) pg/mL Total Protein 8.2 (6.3-8.2) g/dL Albumin 4.0 (3.5-5.0) g/dL Globulin 4.2 H (1.7-4.1) g/dL Albumin/Globulin Ratio 1.0 (1.0-2.8) Lipase 34 (23-300) U/L Procalcitonin 0.11 (<0.5) ng/mL Urine Color Urine Appearance Urine pH (4.5-8.0) Ur Specific [place] (1.000-1.035) Urine Protein (Negative) Urine Glucose (UA) (Negative) g/dL Urine Ketones (NEGATIVE) Urine Occult Blood (Negative) Urine Nitrate (Negative) Urine Bilirubin (NEGATIVE) Urine Urobilinogen (0.2) E.U./dL Ur Leukocyte Esterase (NEGATIVE) Urine RBC (0-5/HPF) Urine WBC (0-5/HPF) Ur Squamous Epith Cells (0-5/HPF) Urine Bacteria (None) Urine Yeast (None) Ur Culture Indicated? Vol Urine Centrifuged Chlamy pneumoniae PCR Not detected (Not Detect) Adenovirus (PCR) Not detected (Not Detect) B.parapertussis DNA PCR Not detected (Not Detecte) Coronavirus OC43 (PCR) Not detected (Not Detect) Coronavirus HKU1 (PCR) Not detected (Not Detect) Coronavirus 229E (PCR) Not detected (Not Detect) SARS-CoV-2 (PCR) Detected H (Not Detecte) Coronavirus NL63 (PCR) Not detected (Not Detect) Human Metapneumovir PCR Not detected (Not Detect) Influenza Type A (PCR) Not detected (Not Detect) Influenza Type B (PCR) Not detected (Not Detect) M. pneumoniae (PCR) Not detected (Not Detect) Parainfluenza 1 (PCR) Not detected (Not Detect) Parainfluenza 2 (PCR) Not detected (Not Detect) Parainfluenza 3 (PCR) Not detected (Not Detect) Parainfluenza 4 (PCR) Not detected (Not Detect) RSV (PCR) Not detected (Not Detect) Entero/Rhino (PCR) Not detected (Not Detect) 05/06/23 05/06/23 Range/Units 19:49 20:50 WBC (4.5-11.0) X10^3/uL RBC (4.0-5.2) X10^6/uL Hgb (12.0-16.0) g/dL Hct (36-46) % MCV (80-100) fL MCH (26-34) PG MCHC (30-36) % RDW (11.6-14.8) % Plt Count (150-400) X10^3/uL Neut % (Auto) (50-75) % Lymph % (Auto) (25-40) % [place] % (Auto) (3-14) % Eos % (Auto) (2-4) % Baso % (Auto) (0-2) % Neut # (Auto) (5051-4626) /uL Lymph # (Auto) (0765-6786) /uL [place] # (Auto) (0-900) /uL Eos # (Auto) (0-450) /uL Baso # (Auto) (0-100) /uL PT (9.4-12.5) SECONDS INR (0.9-1.3) APTT (25.1-36.5) SECONDS ABG Sample Site ABG pH (7.35-7.45) ABG pCO2 (35-45) mmHg ABG pO2 (80-100) mmHg ABG HCO3 (23-27) mmol/L ABG Total CO2 (23-27) mmol/L ABG O2 Saturation (95-100) % ABG Base Excess (-2-3) mmol/L FiO2 Sodium (137-145) mmol/L Potassium (3.4-5.1) mmol/L Chloride (98-107) mmol/L Carbon Dioxide (22-32) mmol/L BUN (7-17) mg/dL Creatinine (0.52-1.04) mg/dL Estimated GFR (>60) mL/min BUN/Creatinine Ratio (6-22) Glucose (80-110) mg/dL Lactate 2.6 H (0.7-2.1) mmol/L Calcium (8.4-10.2) mg/dL Total Bilirubin (0.2-1.3) mg/dL AST (14-36) IU/L ALT (<35) IU/L Alkaline Phosphatase (38-126) U/L Total Creatine Kinase (30-135) U/L Troponin I 0.065 H (0.01-0.034) ng/mL NT-Pro-B Natriuret Pep (<450) pg/mL Total Protein (6.3-8.2) g/dL Albumin (3.5-5.0) g/dL Globulin (1.7-4.1) g/dL Albumin/Globulin Ratio (1.0-2.8) Lipase (23-300) U/L Procalcitonin (<0.5) ng/mL Urine Color Yellow Urine Appearance Clear Urine pH 7.0 (4.5-8.0) Ur Specific [place] 1.010 (1.000-1.035) Urine Protein Negative (Negative) Urine Glucose (UA) Negative (Negative) g/dL Urine Ketones Negative (NEGATIVE) Urine Occult Blood Negative (Negative) Urine Nitrate Negative (Negative) Urine Bilirubin Negative (NEGATIVE) Urine Urobilinogen 0.2 (0.2) E.U./dL Ur Leukocyte Esterase Negative (NEGATIVE) Urine RBC None seen (0-5/HPF) Urine WBC 0-1/hpf (0-5/HPF) Ur Squamous Epith Cells 1-5 /hpf (0-5/HPF) Urine Bacteria Occasional (0-1) (None) Urine Yeast 0-1/hpf (None) Ur Culture Indicated? Cult not indicated Vol Urine Centrifuged Low vol <10ml unspun A Chlamy pneumoniae PCR (Not Detect) Adenovirus (PCR) (Not Detect) B.parapertussis DNA PCR (Not Detecte) Coronavirus OC43 (PCR) (Not Detect) Coronavirus HKU1 (PCR) (Not Detect) Coronavirus 229E (PCR) (Not Detect) SARS-CoV-2 (PCR) (Not Detecte) Coronavirus NL63 (PCR) (Not Detect) Human Metapneumovir PCR (Not Detect) Influenza Type A (PCR) (Not Detect) Influenza Type B (PCR) (Not Detect) M. pneumoniae (PCR) (Not Detect) Parainfluenza 1 (PCR) (Not Detect) Parainfluenza 2 (PCR) (Not Detect) Parainfluenza 3 (PCR) (Not Detect) Parainfluenza 4 (PCR) (Not Detect) RSV (PCR) (Not Detect) Entero/Rhino (PCR) (Not Detect) Point of Care Testing Glucose POC 133 Urine Dip Bedside Urine Glucose Negative Bedside Urine Bilirubin - Negative Bedside Urine Ketone - Negative Urine Specific [place] 1.015 Bedside Urine Occult Blood - Negative Bedside Urine pH 6 Bedside Urine Protein - Negative Bedside Urine Urobilinogen - Negative Bedside Urine Nitrite - Negative Bedside Urine Leukocytes - Negative Esterase Imaging Data Chest x-ray: Radiologist's Impression: [address] [address] XRay Report Signed Patient: Radha Zavaleta MR#: [id number] : 1950 Acct:[id number] Age/Sex: 73 / F Date of Service: 05/06/23 Loc: ED Accession Number: [id number] Procedure: XR chest 1V Ordering Provider: Joanne Mckoy D.O. PROCEDURE: XR CHEST 1V INDICATIONS: sob TECHNIQUE: One view of the chest was acquired. COMPARISON: [facility], , XR CHEST 1V, 04/08/2023, 13:53. FINDINGS: Surgical changes and devices: None. Lungs and pleura: Low lung volumes accentuate pulmonary interstitium and heart size. Mediastinum: Heart size enlarged. Atherosclerotic vascular calcification noted in the aortic arch. Bones and chest wall: No suspicious bony lesions. Overlying soft tissues appear unremarkable. IMPRESSION: Cardiomegaly mild vascular congestion accentuated by low lung volumes Approved by: Leon Bishop M.D. on 05/06/2023 at 17:58 CT scan - head: Radiologist's Impression: [address] [address] [address] Scan Report Signed Patient: Radha Zavaleta MR#: [id number] : 1950 Acct:[id number] Age/Sex: 73 / F Date of Service: 05/06/23 Loc: ED Accession Number: [id number] Procedure: CT head/brain wo con Ordering Provider: Joanne Mckoy D.O. PROCEDURE: CT HEAD/BRAIN WO CON INDICATIONS: altered, INR 5.6 TECHNIQUE: Noncontrast 4.5 mm thick angled axial sections acquired from the foramen magnum to the vertex, with coronal and sagittal reformats. For radiation dose reduction, the following was used: automated exposure control, adjustment of mA and/or kV according to patient size. COMPARISON: [facility], CT, CT HEAD/BRAIN WO CON, 04/24/2022, 12:24. FINDINGS: Image quality: Diagnostic. CSF spaces: Basal cisterns are patent. No extra-axial fluid collections. The ventricles are symmetric in size and shape. Brain: There is a 1.4 x 1.9 cm densely calcified nodule/mass along the posterior tentorium, probably a calcified meningioma. It appears unchanged. No intracranial bleeds or masses. There is moderate cerebral volume loss, with resultant ventricular and sulcal prominence. There are periventricular and deep white matter chronic small vessel ischemic changes. There is intracranial internal carotid artery atherosclerosis. Skull and face: Calvarium and visualized facial bones appear intact, without suspicious lesions. Sinuses: Visualized sinuses and mastoids are clear. IMPRESSION: No acute intracranial pathology. Dictated by: Aubree Bardales M.D. on 05/06/2023 at 20:28 Approved by: Aubree Bardales M.D. on 05/06/2023 at 20:30 ECG Data Attestation: I personally reviewed and interpreted this ECG as follows: Prior ECG tracings: available for review Interpretation: Sinus rhythm with sinus arrhythmia, right axis deviation right bundle-branch block. Patient rate is 75 UT 152 QRS of 114 QTC of 462. Patient does have some T-wave inversions but consistent with prior EKG from 04/08/2023 with no acute or dynamic changes appreciated. Treatment and disposition Code Status and discussions:: patient is full code. 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 Patient has had CHF as well as CO2 retention in the past she is somewhat altered able to answer yes no. Her ABG shows pH of 7.46 pCO2 of 45 PO2 of 57 and bicarb of 32 on 6 L OxyMask. Patient has responded well in the past BiPAP when she has been altered so she is alkalotic but we will place her on BiPAP at this time. She had recent hospitalization on [place] for COVID infection with hypoxia that was worsened and then developed pneumonia after being discharged and was hospitalized at [facility] has been states she grew out E coli in her sputum culture. She is currently on ertapenem at this time receiving this through PICC line once daily and had her dose today. She follows with Infectious Disease as well as pulmonology. Workup includes labs white count of 12.3 up from 6.4, hemoglobin of 12 platelets of 607, leftward shift. INR is 5.6, patient's states that she had been bridged to Lovenox anticipating a mitral valve surgery then switch to heparin while in the hospital and then put back on warfarin last check was 1.9 range. Chemistry shows slight bump in creatinine of 1.16, BUN is 33 sodium is 136 potassium 5 3 chloride 91 CO2 of 36. Glucose is 131, calcium slightly elevated at 10.3, lactate 2.5 normal LFTs, indeterminate troponin 0.058 this was repeated Repeat troponin is slightly elevated but indeterminant still. BNP is elevated at 5370 and on last check in March here was 3470. Chest x- ray does show some changes consistent with pulmonary edema. Procalcitonin is negative at 0.11 UA UA is overall negative for infection. Respiratory panel is positive for COVID but was positive on April 08, 2023 so this may be persistent positive. ABG shows hypoxia, pH of 7.46, CO2 of 45 PO2 of 57 with a bicarb of 32. Patient was on 6 L OxyMask and placed on BiPAP. EKG shows no acute changes with right bundle-branch block that appears similar to March. Because of patient's somewhat altered mental status although I suspect this maybe more related to her respiratory situation she has not elevated INR in the 5 range so was sent for head CT no reported trauma recently. Head CT is negative. Patient was much more alert on BiPAP. ABG was repeated pH of 7.47, slightly more alkalotic with a pCO2 of 42 PO2 of 76 and a bicarb of 31. Echo was ordered but is unavailable until tomorrow. Call out to Sean to talk with Cardiology as patient is supposed to have mitral valve replacement bhy TAVR on May 15. Spoke with Dr. Chiu, Cardiology [facility] States there happy to see the patient and went accept for discharge hospitalist service or CCU if she is on BiPAP felt that she is needed for transfer for further cardiac care. He states it would not move her valve replacement up any sooner. Discussed with our tele hospitalist Dr. Sotelo who feels patient would be more appropriate at larger facility with her complicated medical history and potential for worsening cardiac function. Call back to [facility], spoke with Dr. Nascimento at [facility] he accepts. Did discuss we did try to wean off BiPAP with minimal improvement. Treating more for CHF at this time but we will continue her current antibiotic regimen. Discussed blood pressure has been dropping we will add some fluids back. Awaiting to hear about bed assignment. Also reviewed had echo from 09/02/2022 at that time had hyperdynamic left ventricle with EF of 75% with severe mitral stenosis. Patient has bed assignment. BP continues to be soft but with MAP of 70, systolic in the 90's. Did give 500mL bolus and covered with Levaquin IV for broader coverage. Patient blood pressure improved but has had decrease in oxygenation although she was also lying flat. Patient was sat more upright. Was given nebs she does albuterol q.6 hours at home has not had any since earlier today. Patient was also given additional dose of Lasix as the initial 1 went subcu earlier in the day. She had 400 mL out initially. Patient FiO2 was upped to 100% and weaning backdown. Patient continues to be more alert and states she is feeling okay. On BiPAP 15/ at 100% FiO2 pH is 7.505 pCO2 is 40, PO2 is 241 bicarb is 32. Patient cannot be transported on high-flow so will continue BiPAP as she has increased O2 requirements and drops sat's with NRB when trialed. We will decrease rate drop her FiO2 otherwise would switch to high flow as patient requires increased oxygenation but has primary metabolic alkalosis with secondary respiratory alkalosis. EMS requesting to start pressor for transport. Patient has been persistently 90's systolic with MAP in 70s with appropriate urine output but felt appropriate for transport. Critical Care Time Critical Care Time Critical Care Time: Yes Total Critical Care Time: 55 Attestation: The high probability of a clinically significant, sudden or life threatening deterioration of the [cardiac, pulm] system(s) required my full and direct attention, intervention and personal management. The aggregate critical care time was [] minutes. This time is in addition to time spent performing reported procedures but includes the following: [x] Data Review and interpretation [x] Patient assessment and monitoring of vital signs [x] Documentation [x] Medication orders and management Discharge Plan Departure Patient Disposition: [facility] Clinical Impression: Acute and chronic respiratory failure with hypoxia, Acute exacerbation of CHF (congestive heart failure), Supratherapeutic INR Prescriptions: No Action polyethylene glycol 3350 [Miralax] 119 GM powder 17 gm PO DAILY PRN (Reason: Constipation) Qty: 0 ondansetron HCl [Zofran] 4 mg tablet 4 mg PO Q8H PRN (Reason: nausea and vomiting) Qty: 30 1RF (DME) insulin syringe-needle U-100 [BD Insulin Syringe Ultra-Fine] 0.5 mL 31 gauge x 5/16 syringe See Rx Instructions .ROUTE .MEDSUPPLY Qty: 100 1RF Rx Instructions: Use once a day as directed metformin 1,000 mg tablet 1,000 mg PO BID Qty: 180 0RF (DME) verio reflect glucometer Qty: 1 0RF Rx Instructions: As directed ferrous sulfate 325 mg (65 mg iron) tablet 325 mg PO BEDTIME tizanidine 4 mg capsule 4 mg PO QID PRN (Reason: Muscle Spasm) cholecalciferol (vitamin D3) 2,000 unit tablet 2,000 unit PO DAILY albuterol sulfate 90 mcg/actuation HFA aerosol inhaler 2 puff INHALATION Q4-6H PRN (Reason: Shortness Of Breath) lansoprazole [Prevacid 24Hr] 15 mg Capsule,Delayed Release(Dr/Ec) 30 mg PO BID fentanyl 25 mcg/hr patch 72 hour 1 patch transdermal Q72H PRN (Reason: pain (scale score 1-3)) Qty: 5 0RF Patient Comments: placed today at home omega-3 fatty acids Capsule 1,000 mg PO DAILY fluticasone propion-salmeterol [Advair Diskus] 500-50 mcg/dose Blister With Device 1 inh INHALATION Q12H Hizintra 15 g auto-injector 15 g SUBCUT QWEEK calcium carbonate 200 mg calcium (500 mg) Tablet,Chewable 1,000 mg PO Q4HR PRN (Reason: Dyspepsia) Qty: 60 0RF docusate sodium 100 mg Capsule 100 mg PO BID Qty: 60 0RF alum-mag hydroxide-simeth [Mag-Al Plus] 200-200-20 mg/5 mL Suspension 30 ml PO Q6HR PRN (Reason: Dyspepsia) Qty: 355 0RF sennosides [senna] 8.6 mg Tablet 17.2 mg PO BEDTIME Qty: 60 0RF potassium chloride 20 mEq/15 mL Liquid 20 meq PO BIDWM Qty: 250 0RF metoprolol succinate 25 mg tablet extended release 24 hr 12.5 mg PO DAILY torsemide 20 mg tablet 20 mg PO BID spironolactone 25 mg tablet 12.5 mg PO DAILY magnesium oxide 400 mg magnesium Tablet 400 mg PO BID sodium chloride 3 % Solution For Nebulization 3 ml INHALATION BID Rx Instructions: use w/ nebulizer 2 x daily montelukast [Singulair] 10 mg Tablet 10 mg PO BEDTIME Zyrtec 10 mg Capsule 10 mg PO DAILY atorvastatin 40 mg Tablet 40 mg PO BEDTIME levothyroxine 75 mcg Tablet 75 mcg PO QAM nortriptyline 25 mg Capsule 25 mg PO BEDTIME epinephrine [EpiPen] 0.3 mg/0.3 mL Auto-Injector 0.3 mg IM Q5-15M PRN (Reason: Allergic Reaction) Rx Instructions: do not exceed 3 doses per episode tiotropium bromide [Spiriva with HandiHaler] 18 mcg Capsule, W/Inhalation Device 1 cap INHALATION DAILY Rx Instructions: puncture 1 cap using device; one dose = 2 inhalations insulin glargine 100 unit/mL solution 30 unit SUBCUT QAM insulin lispro [Humalog KwikPen Insulin] 100 unit/mL insulin pen 4 - 8 unit SUBCUT TID pramipexole 0.5 mg tablet 0.5 mg PO BEDTIME fluticasone propion-salmeterol [Wixela Inhub] 500-50 mcg/dose Blister With Device 1 inh INHALATION BID duloxetine 30 mg Capsule,Delayed Release(Dr/Ec) 30 mg PO DAILY oxycodone-acetaminophen [Percocet] 10-325 mg Tablet 1 tab PO Q4H PRN (Reason: Pain (Scale Score 4-6)) guaifenesin [Mucinex] 1,200 mg Tablet Extended Release 12hr 1,200 mg PO BID clonidine HCl 0.1 mg tablet 0.05 mg PO BID prednisone 5 mg tablet 5 mg PO DAILY [id number]-tqsl 50-325-40 mg Tablet 1 tab PO Q6H PRN (Reason: Migraine Headache) oxycodone 5 mg Capsule 15 mg PO Q6H PRN (Reason: Pain (Scale Score 7-10)) oxymetazoline 0.05 % Drops 1 drp INTRANASAL BID PRN (Reason: Congestion) Fasenra 30 mg/mL Syringe 30 mg SUBCUT Q8W fentanyl 12 mcg/hr patch 72 hour 12 mcg transdermal SEEINSTR Patient Comments: apply 1 patch to CLEAN, DRY, AND INTACT SKIN every 72 hours Rx Instructions: Q72HR in addition to 25mcg patch warfarin 1 mg tablet 1 mg PO DAILY Referrals: Karin Porter MD [Primary Care Provider] -
--- NOTE | 2023-05-06 18:20 | DI.RAD.S_ITS ---
PROCEDURE: XR CHEST 1V INDICATIONS: sob TECHNIQUE: One view of the chest was acquired. COMPARISON: [facility], CR, XR CHEST 1V, 04/08/2023, 13:53. FINDINGS: Surgical changes and devices: None. Lungs and pleura: Low lung volumes accentuate pulmonary interstitium and heart size. Mediastinum: Heart size enlarged. Atherosclerotic vascular calcification noted in the aortic arch. Bones and chest wall: No suspicious bony lesions. Overlying soft tissues appear unremarkable. IMPRESSION: Cardiomegaly mild vascular congestion accentuated by low lung volumes Approved by: Leon Bishop M.D. on 05/06/2023 at 17:58
[2023-05-06] MEDS: methylPREDNISolone 125 MG/2 ML VIAL IV (18:29)
[2023-05-06 18:56] LABS: Add Manual Diff / Slide Review NO; Basophils Absolute Auto 0 /uL (0-100); Basophils Percent Auto 0.2 % (0-2); Eosinophils Absolute Auto 0 /uL (0-450); Hematocrit 37.5 % (36-46); Hemoglobin 12.1 g/dL (12.0-16.0); Lymphocytes Absolute Auto 300 /uL (1100-4500); Lymphocytes Percent Auto 2.2 % (25-40); Mean Corpuscular HGB Conc 32.2 % (30-36); Mean Corpuscular Hemoglobin 26.6 PG (26-34); Mean Corpuscular Volume 82.6 fL (80-100); Monocytes Absolute Auto 800 /uL (0-900); Monocytes Percent Auto 6.3 % (3-14); Neutrophils Absolute Auto 11200 /uL (1500-7000); Neutrophils Percent Auto 91.3 % (50-75); Platelet Count 607 X10^3/uL (150-400); Red Blood Cell Count 4.55 X10^6/uL (4.0-5.2); Red Cell Distribution Width 19.4 % (11.6-14.8); White Blood Cell Count 12.3 X10^3/uL (4.5-11.0)
[2023-05-06 18:57] LABS: pH ABG 7.46 (7.35-7.45)
[2023-05-06 18:58] LABS: Allen Test for ABG Passed? Yes, Passed; Blood Gas Collection Site Left Radial; Fractionated Inspired Oxygen 44; HCO3 ABG 32 mmol/L (23-27); Oxygen Saturation ABG 91 % (95-100); PO2 ABG 57 mmHg (80-100); TCO2 ABG 33 mmol/L (23-27)
[2023-05-06 19:01] LABS: PTT Partial Thromboplastin Tim 51 SECONDS (25.1-36.5)
[2023-05-06 19:04] LABS: Lactate (Lactic Acid) 2.5 mmol/L (0.7-2.1)
[2023-05-06 19:05] LABS: Alanine Aminotransferase 18 IU/L (<35); Alkaline Phosphatase 91 U/L (38-126); Aspartate Aminotransferase 23 IU/L (14-36); BUN Creatinine Ratio 28.4 (6-22); Bilirubin Total 0.7 mg/dL (0.2-1.3); Blood Urea Nitrogen 33 mg/dL (7-17); Calcium 10.3 mg/dL (8.4-10.2); Carbon Dioxide 36 mmol/L (22-32); Chloride 91 mmol/L (98-107); Creatine Kinase < 20 U/L (30-135); Estimated Glomerular Filt Rate 49 mL/min (>60); Globulin 4.2 g/dL (1.7-4.1); Glucose 131 mg/dL (80-110); HEMOLYSIS < 15 (0-50); Lipase 34 U/L (23-300); Potassium 5.3 mmol/L (3.4-5.1); Sodium 136 mmol/L (137-145); Total Protein 8.2 g/dL (6.3-8.2)
[2023-05-06 19:17] LABS: NT-proBNP (BNP-Adult 18+) 5370 pg/mL (<450); Troponin I 0.058 ng/mL (0.01-0.034)
[2023-05-06 19:23] LABS: Procalcitonin 0.11 ng/mL (<0.5)
--- NOTE | 2023-05-06 19:25 | PC.NURSE ---
Preparing to perform fem-cath urine collection when pt. voided, emptying bladder. Approximately 5mL urine collected in cup as pt. voided. Specimen to lab for UA/Micro. Perineum cleaned/dried. Barrier cream to pannus rash. Linen changed & pt. repositioned in stretcher.
[2023-05-06 19:35] LABS: Adenovirus Not Detected (Not Detect); B. parapertussis Not Detected (Not Detecte); Bordetella pertussis Not Detected (Not Detect); Chlamydophila pneumoniae Not Detected (Not Detect); Coronavirus 229E Not Detected (Not Detect); Coronavirus HKU1 Not Detected (Not Detect); Coronavirus NL 63 Not Detected (Not Detect); Coronavirus OC43 Not Detected (Not Detect); Human Metapneumovirus Not Detected (Not Detect); Human Rhinovirus/Enterovirus Not Detected (Not Detect); Influenza A Not Detected (Not Detect); Influenza B Not Detected (Not Detect); Mycoplasma pneumoniae Not Detected (Not Detect); Parainfluenza Virus 1 Not Detected (Not Detect); Parainfluenza Virus 2 Not Detected (Not Detect); Parainfluenza Virus 3 Not Detected (Not Detect); Parainfluenza Virus 4 Not Detected (Not Detect); Respiratory Syncytial Virus Not Detected (Not Detect); SARS- CoV-2 Detected (Not Detecte)
[2023-05-06 19:45] LABS: INR 5.6 (0.9-1.3)
--- NOTE | 2023-05-06 19:47 | DI.CT.S_ITS ---
PROCEDURE: CT HEAD/BRAIN WO CON INDICATIONS: altered, INR 5.6 TECHNIQUE: Noncontrast 4.5 mm thick angled axial sections acquired from the foramen magnum to the vertex, with coronal and sagittal reformats. For radiation dose reduction, the following was used: automated exposure control, adjustment of mA and/or kV according to patient size. COMPARISON: [facility], CT, CT HEAD/BRAIN WO CON, 04/24/2022, 12:24. FINDINGS: Image quality: Diagnostic. CSF spaces: Basal cisterns are patent. No extra-axial fluid collections. The ventricles are symmetric in size and shape. Brain: There is a 1.4 x 1.9 cm densely calcified nodule/mass along the posterior tentorium, probably a calcified meningioma. It appears unchanged. No intracranial bleeds or masses. There is moderate cerebral volume loss, with resultant ventricular and sulcal prominence. There are periventricular and deep white matter chronic small vessel ischemic changes. There is intracranial internal carotid artery atherosclerosis. Skull and face: Calvarium and visualized facial bones appear intact, without suspicious lesions. Sinuses: Visualized sinuses and mastoids are clear. IMPRESSION: No acute intracranial pathology. Dictated by: Aubree Bardales M.D. on 05/06/2023 at 20:28 Approved by: Aubree Bardales M.D. on 05/06/2023 at 20:30
[2023-05-06 19:58] LABS: Appearance Urine UA CLEAR; Bilirubin Urine UA NEGATIVE (NEGATIVE); Color Urine UA YELLOW; Glucose Urine UA NEGATIVE (Negative); Ketones Urine UA NEGATIVE (NEGATIVE); Leukocyte Esterase Urine UA NEGATIVE (NEGATIVE); Nitrite Urine UA NEGATIVE (Negative); Occult Blood Urine UA NEGATIVE (Negative); Protein Urine UA NEGATIVE (Negative); Urobilinogen Urine UA 0.2 E.U./dL (0.2)
[2023-05-06 20:00] LABS: Bacteria Urine Occasional (0-1); Culture Indicated Urine Cult Not Indicated; RBC Urine None Seen (0-5/HPF); Squamous Epithelial Cell Urine 1-5 /HPF (0-5/HPF); Urine Volume Low Vol <10mL unspun; WBC Urine 0-1/HPF (0-5/HPF)
[2023-05-06] MEDS: FUROSEMIDE 40 MG/4 ML VIAL IV (20:24)
[2023-05-06 20:30] LABS: Reflexed Lactate in 2 Hours Y
[2023-05-06 21:18] LABS: Lactate 2HR (Lactic Acid Rflx) 2.6 mmol/L (0.7-2.1)
[2023-05-06 21:30] LABS: Troponin I 0.065 ng/mL (0.01-0.034)
--- NOTE | 2023-05-06 22:40 | PC.NURSE ---
RT @ bedside to trial NC O2 @ 6L/min. in place of BiPap. Pt. SpO2 dropped to mid-80s on NC O2 so BiPap replaced.
[2023-05-06] MEDS: SODIUM CHLORIDE 0.9% 1,000 ML 125 ML IV (23:06)
[2023-05-07] VITALS (14 sets, daily range): BP systolic 85–123; BP diastolic 50–70; PULSE 67–87; RESP 18–38; O2SAT 87–99
[2023-05-07] MEDS: levoFLOXacin 750 MG/150 ML PIGGYBACK 100 MG IV (01:18)
[2023-05-07] MEDS: FUROSEMIDE 40 MG/4 ML VIAL IV (02:52)
--- NOTE | 2023-05-07 02:57 | PC.NURSE ---
Pt's spo2 dropped to 70's, checked bipap to look for leaks, none found, RT notified and into room. Placed on nonrebreather at 15l for a few minutes then RT increased her inspiratory pressure and FIo2, repositioned pt, and gave lasix per provider order
[2023-05-07] MEDS: ALBUTEROL 2.5 MG/3 ML NEB (ADULT) INH (03:36)
[2023-05-07] MEDS: NOREPINEPHRINE BITARTRATE/D5W 4 MG/250 ML PLAST..BAG 30.277 MG IV (04:41)
--- NOTE | 2023-05-07 04:55 | PC.NURSE ---
Ordered NS 500 mL bolus administered from hanging liter previously infusing @ 125 mL/hr after okay by ERMD. Ordered Levophed drip infusion continued by EMS post-departure from ED. Pt. A&OX4, respirations unlabored on BiPap @ time of transfer. C/O 5/10 buttock pain. Exam reveals mildly reddened buttocks w/o breakdown.
[2023-05-07 06:02] LABS: HCO3 ABG 32 mmol/L (23-27); PCO2 ABG 40.8 mmHg (35-45); PO2 ABG 241 mmHg (80-100); TCO2 ABG 33 mmol/L (23-27)
[2023-05-07 06:03] LABS: Allen Test for ABG Passed? Yes, Passed; Blood Gas Collection Site Right Radial; Fractionated Inspired Oxygen 100; Oxygen Saturation ABG 100 % (95-100)
[2023-05-07 06:12] LABS: Allen Test for ABG Passed? Yes, Passed; Blood Gas Collection Site Right Radial; Fractionated Inspired Oxygen 50; HCO3 ABG 31 mmol/L (23-27); Oxygen Saturation ABG 96 % (95-100); PCO2 ABG 42.3 mmHg (35-45); PO2 ABG 76 mmHg (80-100); TCO2 ABG 32 mmol/L (23-27); pH ABG 7.47 (7.35-7.45)
== END 2023-05-07 04:55 | disposition short-term general hospital (02) ==
PROVIDERS: Emergency Provider Emergency Medicine; Family Provider Internal Medicine Infectious Disease; PCP Internal Medicine
DX: J96.21 Acute and chronic respiratory failure with hypoxia (principal); I50.9 Heart failure, unspecified; R79.1 Abnormal coagulation profile; Z79.899 Other long term (current) drug therapy; Z20.822 Contact with and (suspected) exposure to COVID-19
CPT/HCPCS: 36415; 36600; 70450; 71045; 80053; 81001; 81003; 82550; 82805; 82962; 83605; 83690; 83880; 84145; 84484; 85025; 85610; 85730; 87040; 87633; 93005; 94640; 94660; 96365; 96366; 96367; 96375; 96376; 99285; 99291; J1940; J1956; J2930; J7613

== ENCOUNTER 2023-06-19 14:02 | Inpatient (IN) | payer OTHER, SELFPAY ==
[2023-04-08 16:33] VITALS: BMI 35.1
[2023-05-06 18:45] VITALS: PULSE 72; RESP 20; O2SAT 95
[2023-06-19] VITALS (24 sets, daily range): BP systolic 119–154; BP diastolic 56–99; PULSE 55–63; RESP 18–37; TEMP 36.8; O2SAT 92–100; BMI 35.2
--- NOTE | 2023-06-19 14:25 | DI.RAD.S_ITS ---
PROCEDURE: XR CHEST 1V INDICATIONS: Shortness of breath TECHNIQUE: One view of the chest was acquired. COMPARISON: [facility], , XR CHEST 1V, 05/06/2023, 18:25. FINDINGS: Surgical changes and devices: Prior TAVR. Lungs and pleura: Lungs are clear. No pleural effusions or pneumothorax. Mediastinum: Mediastinal contours appear normal. Heart is enlarged. Bones and chest wall: No suspicious bony lesions. Overlying soft tissues appear unremarkable. IMPRESSION: No acute cardiopulmonary abnormality is seen. Dictated by: Carole Villagran MD, PhD on 06/19/2023 at 15:43 Approved by: Carole Villagran MD, PhD on 06/19/2023 at 15:43
[2023-06-19 14:41] LABS: INR 2.1 (0.9-1.3); Prothrombin Time 24.6 SECONDS (9.4-12.5)
[2023-06-19 14:42] LABS: Add Manual Diff / Slide Review NO; Basophils Absolute Auto 0 /uL (0-100); Basophils Percent Auto 0.3 % (0-2); Eosinophils Absolute Auto 0 /uL (0-450); Hemoglobin 12.4 g/dL (12.0-16.0); Lymphocytes Absolute Auto 1000 /uL (1100-4500); Lymphocytes Percent Auto 8.8 % (25-40); Mean Corpuscular HGB Conc 33.4 % (30-36); Mean Corpuscular Hemoglobin 28.7 PG (26-34); Mean Corpuscular Volume 86.1 fL (80-100); Monocytes Absolute Auto 900 /uL (0-900); Monocytes Percent Auto 8.4 % (3-14); Neutrophils Absolute Auto 9200 /uL (1500-7000); Neutrophils Percent Auto 82.5 % (50-75); Platelet Count 371 X10^3/uL (150-400); Red Cell Distribution Width 21.3 % (11.6-14.8); White Blood Cell Count 11.2 X10^3/uL (4.5-11.0)
[2023-06-19 14:44] LABS: Lactate (Lactic Acid) 1.1 mmol/L (0.7-2.1)
[2023-06-19 14:45] LABS: Alanine Aminotransferase 20 IU/L (<35); Albumin Globulin Ratio 0.9 (1.0-2.8); Alkaline Phosphatase 96 U/L (38-126); Aspartate Aminotransferase 34 IU/L (14-36); BUN Creatinine Ratio 24.8 (6-22); Bilirubin Total 0.7 mg/dL (0.2-1.3); Blood Urea Nitrogen 25 mg/dL (7-17); Calcium 9.6 mg/dL (8.4-10.2); Carbon Dioxide 33 mmol/L (22-32); Chloride 101 mmol/L (98-107); Estimated Glomerular Filt Rate 58 mL/min (>60); Globulin 4.3 g/dL (1.7-4.1); Glucose 102 mg/dL (80-110); HEMOLYSIS 32 (0-50); Potassium 3.7 mmol/L (3.4-5.1); Sodium 137 mmol/L (137-145); Total Protein 8.3 g/dL (6.3-8.2)
[2023-06-19 14:52] LABS: Anisocytosis 1+; Poikilocytosis 1+
[2023-06-19 14:57] LABS: NT-proBNP (BNP-Adult 18+) 3690 pg/mL (<450); Troponin I 0.022 ng/mL (0.01-0.034)
--- NOTE | 2023-06-19 15:42 | ED.GENADULT ---
HPI - General Adult General Chief complaint: Altered Mental Status Stated complaint: Increased confusion x2-3 days. Time Seen by Provider: 06/19/23 15:39 Source: patient Mode of arrival: Ambulatory History of Present Illness HPI narrative: 73-year-old female with history of pneumonia, CHF, UTI, sepsis, pulmonary embolism, NSTEMI, pseudomonas, fibromyalgia, diabetes, hypertension, hyperlipidemia, penicillin and cephalosporin allergy, on warfarin, insulin, spironolactone presents with altered mental status. Her spouse has healthcare experienced; he is a PA. He states patient has common variable immunodeficiency on abdominal injection medication. He notes in the last few days, she is seemed gradually more confused, which has happened to her before with UTIs. He denies trauma, fevers or chills, chest or back or abdominal or flank pain, though UTI symptoms or possible. Patient here states she feels overall okay though is not sure what is going on. Per chart review, she is history of CHF with chronic respiratory failure on home oxygen, as well as adrenal insufficiency. Patient is on 3 L nasal cannula currently, which spouse states is an improvement from a few months ago, after her mitral valve was replaced in April. Related Data Home Medications Medication Instructions Recorded Confirmed polyethylene glycol 3350 17 17 gm PO DAILY PRN Constipation ##0 06/06/17 04/08/23 gram/dose oral powder (Miralax) albuterol sulfate 90 mcg/actuation 2 puff inhalation Q4-6H PRN 05/29/19 04/08/23 aerosol inhaler Shortness Of Breath cholecalciferol (vitamin D3) 50 2,000 unit PO DAILY 05/29/19 04/08/23 mcg (2,000 unit) tablet ferrous sulfate 325 mg (65 mg 325 mg PO BEDTIME 05/29/19 04/08/23 iron) tablet tizanidine 4 mg capsule 4 mg PO QID PRN Muscle Spasm 05/29/19 04/08/23 sodium chloride 3 % for 3 ml inhalation BID 06/05/19 04/08/23 nebulization cetirizine 10 mg capsule (Zyrtec) 10 mg PO DAILY allergies 01/20/20 04/08/23 montelukast 10 mg tablet 10 mg PO BEDTIME 01/20/20 04/08/23 (Singulair) atorvastatin 40 mg tablet 40 mg PO BEDTIME 04/20/21 04/08/23 epinephrine 0.3 mg/0.3 mL 0.3 mg IM Q5-15M PRN Allergic 04/20/21 04/08/23 injection, auto-injector (EpiPen) Reaction insulin glargine 100 unit/mL 30 unit SUBCUT QAM 04/20/21 04/08/23 subcutaneous solution insulin lispro 100 unit/mL 4 - 8 unit SUBCUT TID 04/20/21 04/08/23 subcutaneous pen (Humalog KwikPen (U-100) Insulin) levothyroxine 75 mcg tablet 75 mcg PO QAM 04/20/21 04/08/23 nortriptyline 25 mg capsule 25 mg PO BEDTIME 04/20/21 04/08/23 tiotropium bromide 18 mcg capsule 1 cap inhalation DAILY 04/20/21 04/08/23 with inhalation device (Spiriva with HandiHaler) lansoprazole 15 mg capsule,delayed 30 mg PO BID 04/29/21 04/08/23 release (Prevacid 24Hr) duloxetine 30 mg capsule,delayed 30 mg PO DAILY 06/28/21 04/08/23 release fluticasone 500 mcg-salmeterol 50 1 inh inhalation BID 06/28/21 04/08/23 mcg/dose blistr powdr for inhalation (Wixela Inhub) guaifenesin 1,200 mg tablet, 1,200 mg PO BID 06/28/21 04/08/23 extended release 12 hr (Mucinex) oxycodone-acetaminophen 10 mg-325 1 tab PO Q4H PRN Pain (Scale Score 06/28/21 04/08/23 mg tablet (Percocet) 4-6) pramipexole 0.5 mg tablet 0.5 mg PO BEDTIME 06/28/21 04/08/23 omega-3 fatty acids 1,000 mg PO DAILY 04/24/22 04/08/23 benralizumab 30 mg/mL subcutaneous 30 mg SUBCUT Q8W 06/03/22 04/08/23 syringe (Fasenra) tgiupysnbs-prscmyanltvkn-inafhqjb 1 tab PO Q6H PRN Migraine Headache 06/03/22 04/08/23 50 mg-325 mg-40 mg tablet clonidine HCl 0.1 mg tablet 0.05 mg PO BID 06/03/22 04/08/23 oxycodone 5 mg capsule 15 mg PO Q6H PRN Pain (Scale Score 06/03/22 04/08/23 7-10) oxymetazoline 0.05 % nasal drops 1 drp intranasal BID PRN Congestion 06/03/22 04/08/23 prednisone 5 mg tablet 5 mg PO DAILY 06/03/22 04/08/23 Hizintra 15 g SUBCUT QWEEK 08/25/22 04/08/23 fluticasone 500 mcg-salmeterol 50 1 inh inhalation Q12H 08/25/22 04/08/23 mcg/dose blistr powdr for inhalation (Advair Diskus) fentanyl 12 mcg/hr transdermal 12 mcg transdermal SEEINSTR 10/13/22 04/08/23 patch warfarin 1 mg tablet 1 mg PO DAILY 10/13/22 04/08/23 magnesium oxide 400 mg PO BID 04/08/23 04/08/23 metoprolol succinate 25 mg 12.5 mg PO DAILY 04/08/23 04/08/23 tablet,extended release 24 hr spironolactone 25 mg tablet 12.5 mg PO DAILY 04/08/23 04/08/23 torsemide 20 mg tablet 20 mg PO BID 04/08/23 04/08/23 Previous Rx's Medication Instructions Recorded ondansetron HCl 4 mg tablet 4 mg PO Q8H PRN nausea and 10/06/19 (Zofran) vomiting #30 tabs verio reflect glucometer #1 ea 01/28/20 insulin syringe-needle U-100 0.5 #100 ea 03/30/20 mL 31 gauge x 5/16 (BD Insulin Syringe Ultra-Fine) metformin 1,000 mg tablet 1,000 mg PO BID #180 tabs 09/03/20 fentanyl 25 mcg/hr transdermal 1 patch transdermal Q72H PRN pain 02/05/22 patch (scale score 1-3) #5 ea aluminum-mag hydroxide-simethicone 30 ml PO Q6HR PRN Dyspepsia #355 mL 08/28/22 200 mg-200 mg-20 mg/5 mL oral susp (Mag-Al Plus) calcium carbonate 200 mg calcium 1,000 mg (5 x 200 mg calcium (500 08/28/22 (500 mg) chewable tablet mg)) PO Q4HR PRN Dyspepsia #60 tabs docusate sodium 100 mg capsule 100 mg PO BID #60 caps 08/28/22 potassium chloride 20 mEq/15 mL 20 meq (15 mL) PO BIDWM #250 mL 08/28/22 oral liquid sennosides 8.6 mg tablet (senna) 17.2 mg (2 x 8.6 mg) PO BEDTIME 08/28/22 #60 tabs Allergies Allergy/AdvReac Type Severity Reaction Status Date / Time piperacillin [From Zosyn] Allergy Severe Rash Verified 04/08/23 17:46 tazobactam [From Zosyn] Allergy Severe Rash Verified 04/08/23 17:46 hydroxychloroquine Allergy Unknown Verified 04/08/23 13:14 [HYDROXYCHLOROQUINE] Sulfa (Sulfonamide Allergy Verified 06/19/23 17:00 Antibiotics) cefepime AdvReac Intermediate pruritis Verified 04/08/23 13:14 promethazine [From Phenergan] AdvReac Agitated Verified 04/08/23 13:14 Review of Systems Review of Systems Narrative: Constitutional: no fever, no chills Eyes: no visual disturbance, no discharge Ears, Nose, Mouth, Throat: no rhinorrhea, no sore throat Cardiovascular: no chest pain, no palpitations Respiratory: no cough, no shortness of breath Gastrointestinal: no abdominal pain, no vomiting, no diarrhea Genitourinary: possible dysuria, no hematuria Musculoskeletal: no back pain, no neck stiffness Skin: no rash, no wound Neurological: no focal weakness, no focal numbness Patient History Medical History Anticoagulated Pneumonia Wears glasses Eczema Osteoarthritis Bronchiectasis (~2006) Sleep apnea Asthma (~1959) Abnormal chest xray (~1979) Restless leg syndrome Migraines (~1964) Shoulder pain (~03/2018) Osteopenia Degenerative joint disease of spine (~2001) Foot pain Fibromyalgia Chronic back pain Cervical spine disease Ankle pain MRSA (methicillin resistant Staphylococcus aureus) (~2002) Anemia Hoarseness Recurrent sinusitis (~1970) Colon polyps (~2015) Hypothyroidism Diabetes mellitus, type II (~2009) Hypertension Hyperlipidemia Nail bed carcinoma Pneumonia Surgical History Anesthesia History of thumb surgery History of carpal tunnel release History of spinal fusion (~2012) History of laminectomy (~2002) History of section History of cataract removal with insertion of prosthetic lens (~2014) Family History Father Stroke Mother Hypertension Brother Cerebral aneurysm Prostate cancer Diabetes mellitus Hypertension Stroke Brother Arthritis Hyperlipidemia Hypertension Sister History of kidney cancer Hypertension Grandfather Cancer Grandmother Cancer Other Family history non-contributory Social History marital status: household members: spouse lives independently: Yes occupational status: previously employed Smoking Status: Never smoker alcohol intake: current substance use type: does not use Smoking Status: Never smoker alcohol intake frequency: holidays/special occasions only Substance Use Type: does not use Exam Narrative Exam Narrative: Const: no acute distress, non toxic appearing; calm, pleasant though confused; on 3L NC Eyes: PERRLA, EOMI ENT: mucous membranes moist Neck: supple, non-tender Resp: no respiratory distress, clear to auscultation bilaterally Card: regular rate and rhythm, no murmurs Abd: non tender diffusely, no rigidity or rebound or guarding Back: no T or L spine tenderness, no CVA tenderness bilaterally Extrem: no deformities, no swelling bilateral lower extremities Neuro: ANOx2/4, 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, grossly intact sensation and strength all extremities Skin: no rash, warm and dry Initial Vital Signs Initial Vital Signs: Vital Signs Pulse Rate 59 L 06/19/23 14:06 Pulse Oximetry 96 06/19/23 14:06 Course Course Course Narrative: This patient presents with what appears to be an encephalopathy that could be related to underlying infection, with broad differential I have considered including but not limited to pneumonia, UTI, intra-abdominal infection such as abscess, diverticulitis, electrolyte derangements, intravascular volume depletion, hypercapnia, viral syndrome, hypoglycemia, uremia, renal failure, among others. I am obtaining broad infectious and altered mental status workup, along with CT head, chest x-ray, CT abdomen and pelvis, and will closely reassess. Spouse provides good history at bedside and is a PA. I am giving broad-spectrum antibiotics with ciprofloxacin, Flagyl, along with fluids. Patient currently hemodynamically stable. EKG normal sinus rhythm without clear acute ischemia, with QT prolongation however in the setting of right bundle-branch block. Labs with mild leukocytosis, no anemia or thrombocytopenia. INR elevated to 2.1 in the setting of warfarin. VBG with no acidosis or CO2 retention, rather mild respiratory alkalosis. Chemistry with creatinine similar to prior, no LFT elevation, no immediately concerning electrolyte derangements. Lactate reassuring. Troponin within normal limits. BNP elevated, though reduced from April. Urine with evidence of infection. Culture being sent. Patient with penicillin and cephalosporin allergy. I previously gave patient ciprofloxacin and Flagyl IV. Radiology review of imaging below, which I agree with on my independent review: hCT: FINDINGS: Image quality: Degraded by patient motion artifact. CSF spaces: Basal cisterns are patent. No extra-axial fluid collections. The ventricles are symmetric in size and shape. Brain: No intracranial bleeds. 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 There are periventricular and deep white matter chronic small vessel ischemic changes. There is intracranial internal carotid artery atherosclerosis. Skull and face: Calvarium and visualized facial bones appear intact, without suspicious lesions. Sinuses: Mucosal thickening causes complete opacification of the left maxillary sinus compatible with severe chronic sinusitis. The mastoids are clear. IMPRESSION: No acute intracranial pathology within limitations related to motion artifact. Dictated by: Carole Villagran MD, PhD on 06/19/2023 at 17:06 CT A/P: FINDINGS: Image quality: Streak metal artifact from spinal hardware limits evaluation of surrounding soft tissue.. Lower Chest: Bibasilar atelectasis. ABDOMEN: Liver: No solid mass. Gallbladder: No radiopaque gallstones or wall thickening. Biliary ducts: No biliary dilation. Pancreas: No ductal dilation. Spleen: Size is within normal limits. Adrenal Glands: No adrenal nodules. Kidneys and Ureters: No hydronephrosis. No solid mass. No complex renal cystic lesion which requires follow up. Stomach and Bowel: Normal colonic caliber, without significant wall thickening. No evidence of small-bowel obstruction. Scattered colonic diverticula without acute inflammation. Peritoneum: No abnormal intraperitoneal fluid. No free air. Ventral Wall: There are multiple foci of gas in the anterior abdominal subcutaneous tissue with areas of fat stranding as well as a few foci of gas within the dermis, for example series 2, image 36. No rim enhancing fluid collection suggest abscess. Moderate size fat and small bowel containing periumbilical hernia. Abdominal Nodes: No retroperitoneal or mesenteric adenopathy by size criteria. Vessels: Aorta and inferior vena cava are normal in size. Infrarenal IVC filter. PELVIS: Pelvic Organs: Presumed sterilization clips are again seen.. Bladder: No bladder wall thickening, accounting for underdistention. Pelvic Nodes: No enlarged lymph nodes. Miscellaneous: No inguinal hernias are seen. Bones: Status post L3-L5 posterior spinal fusion and intervertebral disc spacer at L3-L4. Levoconvex scoliotic curvature. Multilevel disc degeneration. No acute vertebral body compression fracture. IMPRESSION: Anterior abdominal cutaneous and subcutaneous emphysema with areas of fat stranding. Findings may represent soft tissue infection versus iatrogenic. Recommend clinical correlation. No rim enhancing fluid collection to suggest abscess. Additional findings as above. Approved by: Yoselin Hampton M.D. on 06/19/2023 at 18:51 CXR: FINDINGS: Surgical changes and devices: Prior TAVR. Lungs and pleura: Lungs are clear. No pleural effusions or pneumothorax. Mediastinum: Mediastinal contours appear normal. Heart is enlarged. Bones and chest wall: No suspicious bony lesions. Overlying soft tissues appear unremarkable. IMPRESSION: No acute cardiopulmonary abnormality is seen. Dictated by: Carole Villagran MD, PhD on 06/19/2023 at 15:43 At this juncture, UTI is possible. Note patient is immunosuppressed, and she is at high risk for sepsis. She appears to be responding to broad spectrum antibiotics. No meningeal signs. No chest pain. Endocarditis seems less likely in this setting. We are consulting hospitalist for admission. I spoke with Dr. Sotelo who kindly accepts patient for admission. Admitting in stable condition. Orders Ordered: ED Orders 06/19/23 14:15 Complete Blood Count AUTO DIFF Stat Comprehensive Metabolic Panel Stat Lactate (Lactic Acid) Stat NT-proBNP (BNP-Adult 18+) Stat Prothrombin Time INR Stat Troponin I Stat 06/19/23 14:25 XR chest 1V Stat EKG-12 Lead Stat Measure peak expiratory flow ONCE RT Consult Eval and Treat NOW 06/19/23 15:48 Urinalysis and Microscopic Stat Urine Culture Stat 06/19/23 16:33 CT abdomen pelvis w con Stat CT head/brain wo con Stat 06/19/23 17:00 Blood Culture Stat 06/19/23 17:02 VBG [Venous Blood Gas] Stat Ondansetron HCl (Ondansetron 4 Mg Odt) 4 mg SL NOW PRN PRN Reason: Nausea And Vomiting Ondansetron HCl (Ondansetron 4 Mg/2 Ml Inj) 4 mg IV NOW PRN PRN Reason: Nausea And Vomiting Discontinued Medications Ciprofloxacin (Cipro) 400 mg in 200 mls @ 200 mls/hr IV NOW ONE Stop: 06/19/23 17:32 Last Infusion: 06/19/23 18:18 Dose: Infused Documented By: Admin: 06/19/23 17:03 Dose: 200 mls/hr Documented By: MARIA INES Metronidazole (Flagyl) 250 mg in 50 mls @ 100 mls/hr IV Q8H [facility] Metronidazole (Flagyl) 500 mg in 100 mls @ 100 mls/hr IV NOW ONE Stop: 06/19/23 17:44 Last Infusion: 06/19/23 19:30 Dose: Infused Documented By: MARIA INES Admin: 06/19/23 18:22 Dose: 100 mls/hr Documented By: GOYO Vital Signs Vital signs: Vital Signs - 8 hr 06/19/23 14:06 06/19/23 14:07 06/19/23 14:07 Temperature Pulse Rate 59 L 55 L Respiratory Rate 20 Blood Pressure 133/61 Pulse Oximetry 96 96 Oxygen Delivery Method Oxygen Flow Rate 06/19/23 14:19 06/19/23 14:30 06/19/23 14:30 Temperature Pulse Rate 58 L 58 L Respiratory Rate 22 26 H Blood Pressure 133/61 136/60 Pulse Oximetry 97 97 Oxygen Delivery Method Nasal Cannula Oxygen Flow Rate 4 06/19/23 15:00 06/19/23 15:14 06/19/23 15:14 Temperature Pulse Rate 62 60 Respiratory Rate 20 24 Blood Pressure 154/99 H Pulse Oximetry 97 100 Oxygen Delivery Method Oxygen Flow Rate 06/19/23 15:30 06/19/23 15:31 06/19/23 15:31 Temperature Pulse Rate 59 L 59 L Respiratory Rate 23 24 Blood Pressure 130/79 Pulse Oximetry 96 100 Oxygen Delivery Method Oxygen Flow Rate 06/19/23 16:00 06/19/23 16:01 06/19/23 16:01 Temperature Pulse Rate 58 L 59 L Respiratory Rate 24 25 H Blood Pressure 131/65 Pulse Oximetry 97 96 Oxygen Delivery Method Nasal Cannula Oxygen Flow Rate 3 06/19/23 16:30 06/19/23 16:31 06/19/23 16:31 Temperature Pulse Rate 58 L 59 L Respiratory Rate 19 23 Blood Pressure 125/56 L Pulse Oximetry 99 98 Oxygen Delivery Method Nasal Cannula Oxygen Flow Rate 3 06/19/23 17:00 06/19/23 17:30 06/19/23 17:30 Temperature Pulse Rate 57 L 58 L Respiratory Rate 30 H 25 H Blood Pressure 136/73 Pulse Oximetry 98 100 Oxygen Delivery Method Nasal Cannula Oxygen Flow Rate 3 06/19/23 18:00 06/19/23 18:00 06/19/23 18:30 Temperature Pulse Rate 59 L 59 L Respiratory Rate 19 22 Blood Pressure 154/67 H Pulse Oximetry 99 100 Oxygen Delivery Method Oxygen Flow Rate 06/19/23 18:31 06/19/23 18:31 06/19/23 19:00 Temperature Pulse Rate 59 L 63 Respiratory Rate 26 H 37 H Blood Pressure 142/62 H Pulse Oximetry 99 97 Oxygen Delivery Method Oxygen Flow Rate 06/19/23 19:01 06/19/23 19:01 06/19/23 19:12 Temperature 98.3 F Pulse Rate 62 Respiratory Rate 28 H Blood Pressure 134/65 Pulse Oximetry 97 Oxygen Delivery Method Nasal Cannula Oxygen Flow Rate 3 Medical Decision Making Lab Data 06/19/23 14:15 06/19/23 14:15 Labs: Lab Results 06/19/23 06/19/23 06/19/23 Range/Units 14:15 15:48 17:02 WBC 11.2 H (4.5-11.0) X10^3/uL RBC 4.30 (4.0-5.2) X10^6/uL Hgb 12.4 (12.0-16.0) g/dL Hct 37.0 (36-46) % MCV 86.1 (80-100) fL MCH 28.7 (26-34) PG MCHC 33.4 (30-36) % RDW 21.3 H (11.6-14.8) % Plt Count 371 (150-400) X10^3/uL Neut % (Auto) 82.5 H (50-75) % Lymph % (Auto) 8.8 L (25-40) % [place] % (Auto) 8.4 (3-14) % Eos % (Auto) 0.0 L (2-4) % Baso % (Auto) 0.3 (0-2) % Neut # (Auto) 9200 H (2159-0438) /uL Lymph # (Auto) 1000 L (6420-4863) /uL [place] # (Auto) 900 (0-900) /uL Eos # (Auto) 0 (0-450) /uL Baso # (Auto) 0 (0-100) /uL RBC Morphology Not Reportable Poikilocytosis 1+ H Anisocytosis 1+ H PT 24.6 H (9.4-12.5) SECONDS INR 2.1 H (0.9-1.3) VBG pH 7.49 H (7.33-7.43) VBG pCO2 42.7 L (45-50) mmHg VBG pO2 37 (35-45) mmHg VBG HCO3 33 H (24-28) mmol/L VBG Total CO2 34 H (24-29) mmol/L VBG O2 Saturation 75 (70-75) % VBG Base Excess 10.0 H (0-4) mmol/L FiO2 32 Sodium 137 (137-145) mmol/L Potassium 3.7 (3.4-5.1) mmol/L Chloride 101 (98-107) mmol/L Carbon Dioxide 33 H (22-32) mmol/L BUN 25 H (7-17) mg/dL Creatinine 1.01 (0.52-1.04) mg/dL Estimated GFR 58 L (>60) mL/min BUN/Creatinine Ratio 24.8 H (6-22) Glucose 102 (80-110) mg/dL Lactate 1.1 (0.7-2.1) mmol/L Calcium 9.6 (8.4-10.2) mg/dL Total Bilirubin 0.7 (0.2-1.3) mg/dL AST 34 (14-36) IU/L ALT 20 (<35) IU/L Alkaline Phosphatase 96 (38-126) U/L Troponin I 0.022 (0.01-0.034) ng/mL NT-Pro-B Natriuret Pep 3690 H (<450) pg/mL Total Protein 8.3 H (6.3-8.2) g/dL Albumin 4.0 (3.5-5.0) g/dL Globulin 4.3 H (1.7-4.1) g/dL Albumin/Globulin Ratio 0.9 L (1.0-2.8) Urine Color Yellow Urine Appearance Cloudy Urine pH 8.5 H (4.5-8.0) Ur Specific [place] 1.015 (1.000-1.035) Urine Protein Trace H (Negative) Urine Glucose (UA) Negative (Negative) g/dL Urine Ketones Negative (NEGATIVE) Urine Occult Blood Negative (Negative) Urine Nitrate Positive H (Negative) Urine Bilirubin Negative (NEGATIVE) Urine Urobilinogen 0.2 (0.2) E.U./dL Ur Leukocyte Esterase 3+ H (NEGATIVE) Urine RBC None seen (0-5/HPF) Urine WBC 30-100/hpf H (0-5/HPF) Ur Squamous Epith Cells 0-1 /hpf (0-5/HPF) Urine Bacteria Many (>30) H (None) Ur Culture Indicated? Specimen cultured Vol Urine Centrifuged 10ml (spun) Discharge Plan Departure Patient Disposition: Admitted As Inpatient Clinical Impression: AMS (altered mental status) Admit Date/Time: 06/19/23 19:38 Admit Provider: Sebastian Sotelo
--- NOTE | 2023-06-19 16:33 | DI.CT.S_ITS ---
PROCEDURE: CT ABDOMEN PELVIS W CON INDICATIONS: assess for infection, possible sepsis TECHNIQUE: After the administration of intravenous contrast, axial sections acquired from the lung bases to the pubic symphysis. Coronal and sagittal reformats were performed. For radiation dose reduction, the following was used: automated exposure control, adjustment of mA and/or kV according to patient size. COMPARISON: [facility], CT, CT ABDOMEN PELVIS W CON, 08/25/2022, 16:06. FINDINGS: Image quality: Streak metal artifact from spinal hardware limits evaluation of surrounding soft tissue.. Lower Chest: Bibasilar atelectasis. ABDOMEN: Liver: No solid mass. Gallbladder: No radiopaque gallstones or wall thickening. Biliary ducts: No biliary dilation. Pancreas: No ductal dilation. Spleen: Size is within normal limits. Adrenal Glands: No adrenal nodules. Kidneys and Ureters: No hydronephrosis. No solid mass. No complex renal cystic lesion which requires follow up. Stomach and Bowel: Normal colonic caliber, without significant wall thickening. No evidence of small-bowel obstruction. Scattered colonic diverticula without acute inflammation. Peritoneum: No abnormal intraperitoneal fluid. No free air. Ventral Wall: There are multiple foci of gas in the anterior abdominal subcutaneous tissue with areas of fat stranding as well as a few foci of gas within the dermis, for example series 2, image 36. No rim enhancing fluid collection suggest abscess. Moderate size fat and small bowel containing periumbilical hernia. Abdominal Nodes: No retroperitoneal or mesenteric adenopathy by size criteria. Vessels: Aorta and inferior vena cava are normal in size. Infrarenal IVC filter. PELVIS: Pelvic Organs: Presumed sterilization clips are again seen.. Bladder: No bladder wall thickening, accounting for underdistention. Pelvic Nodes: No enlarged lymph nodes. Miscellaneous: No inguinal hernias are seen. Bones: Status post L3-L5 posterior spinal fusion and intervertebral disc spacer at L3-L4. Levoconvex scoliotic curvature. Multilevel disc degeneration. No acute vertebral body compression fracture. IMPRESSION: Anterior abdominal cutaneous and subcutaneous emphysema with areas of fat stranding. Findings may represent soft tissue infection versus iatrogenic. Recommend clinical correlation. No rim enhancing fluid collection to suggest abscess. Additional findings as above. Approved by: Yoselin Hampton M.D. on 06/19/2023 at 18:51
--- NOTE | 2023-06-19 16:33 | DI.CT.S_ITS ---
PROCEDURE: CT HEAD/BRAIN WO CON INDICATIONS: Acute altered mental status. TECHNIQUE: Noncontrast 4.5 mm thick angled axial sections acquired from the foramen magnum to the vertex, with coronal and sagittal reformats. For radiation dose reduction, the following was used: automated exposure control, adjustment of mA and/or kV according to patient size. COMPARISON: [facility], CT, CT HEAD/BRAIN WO CON, 04/24/2022, 12:24. [facility], CT, CT HEAD/BRAIN WO CON, 05/06/2023, 20:04. FINDINGS: Image quality: Degraded by patient motion artifact. CSF spaces: Basal cisterns are patent. No extra-axial fluid collections. The ventricles are symmetric in size and shape. Brain: No intracranial bleeds. 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 There are periventricular and deep white matter chronic small vessel ischemic changes. There is intracranial internal carotid artery atherosclerosis. Skull and face: Calvarium and visualized facial bones appear intact, without suspicious lesions. Sinuses: Mucosal thickening causes complete opacification of the left maxillary sinus compatible with severe chronic sinusitis. The mastoids are clear. IMPRESSION: No acute intracranial pathology within limitations related to motion artifact. Dictated by: Carole Villagran MD, PhD on 06/19/2023 at 17:06 Approved by: Carole Villagran MD, PhD on 06/19/2023 at 17:10
[2023-06-19 16:46] LABS: Bilirubin Urine UA NEGATIVE (NEGATIVE); Color Urine UA YELLOW; Glucose Urine UA NEGATIVE (Negative); Ketones Urine UA NEGATIVE (NEGATIVE); Leukocyte Esterase Urine UA 3+ (NEGATIVE); Nitrite Urine UA POSITIVE (Negative); Occult Blood Urine UA NEGATIVE (Negative); Protein Urine UA TRACE (Negative); Specific Gravity Urine UA 1.015 (1.000-1.035); Urobilinogen Urine UA 0.2 E.U./dL (0.2)
[2023-06-19 16:53] LABS: Appearance Urine UA CLOUDY; pH Urine UA 8.5 (4.5-8.0)
[2023-06-19] MEDS: CIPROFLOXACIN 400 MG/200 ML PIGGYBACK 200 MG IV (17:03)
[2023-06-19 17:10] LABS: Bacteria Urine Many (>30); Culture Indicated Urine Specimen Cultured; RBC Urine None Seen (0-5/HPF); Squamous Epithelial Cell Urine 0-1 /HPF (0-5/HPF); Urine Volume 10mL (spun); WBC Urine 30-100/HPF (0-5/HPF)
[2023-06-19 17:43] LABS: HCO3 VBG 33 mmol/L (24-28); PCO2 VBG 42.7 mmHg (45-50); PO2 VBG 37 mmHg (35-45); Total CO2 VBG 34 mmol/L (24-29); pH VBG 7.49 (7.33-7.43)
[2023-06-19 17:44] LABS: Fractionated Inspired Oxygen 32; Oxygen Saturation VBG 75 % (70-75)
[2023-06-19] MEDS: metroNIDAZOLE 500 MG/100 ML PIGGYBACK 100 MG IV (18:22)
[2023-06-19] MEDS: SODIUM CHLORIDE 0.9% 1,000 ML 50 ML IV (22:42)
[2023-06-19] MEDS: OXYCODONE IR 5 MG TABLET 15 MG PO (23:07)
--- NOTE | 2023-06-19 23:18 | PC.NURSE ---
Pt. admitted to room 223, accompanied by her spouse. Bed alarm activated, diagnosed with UTI & confusion. C/O pain to her knees rated pain level at 8/10 medciated with 15 mg. of Oxycodone per her home medications list. Will continue paln of care & monitor.
[2023-06-20] VITALS (11 sets, daily range): BP systolic 110–131; BP diastolic 43–72; PULSE 55–86; RESP 16–18; TEMP 36.2–37.4; O2SAT 93–96
--- NOTE | 2023-06-20 00:10 | PM.HP.1 ---
History of Present Illness History of Present Illness Date Patient Seen: 06/19/23 Time Patient Seen: 22:45 Chief complaint: Increased confusion x2-3 days. 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 Spouse is able to give a decent history. Apparently reports the patient becomes more tired and lethargic whenever she has a urinary tract infection. She does have chronic pain for which she is on fentanyl patch/oxycodone that has not changed and currently on hizintra for common variable immunodeficiency that she takes as subcutaneous injection chart and abdominal wall. Has chronic cough with underlying bronchiectasis but but denies any recent worsening shortness of breath. Has had chronic respiratory failure needing 6 to 8 L of oxygen previously but now post mitral valve replacement, oxygen requirements are hovering around 3 to 4 L at baseline. Denies any vomiting. Does have chronic constipation with episodes of urinary incontinence. Unclear if the patient had fever at home. Denies any chest pain. In the emergency room workup showed mild leukocytosis and the INR is at 2.1. Urine analysis was positive for leukocyte esterase. Subsequent CT scan of the brain and the chest x-ray shows no acute process. CT abdomen shows no acute intra-abdominal process but does show some subcutaneous emphysema with areas of fat stranding in the abdominal wall anteriorly which is at the site where she takes the weekly injection for her immune deficiency. Patient denies any pain at that site. Patient has multiple allergies including to Zosyn and cefepime. Received IV Cipro and Flagyl in the emergency room and admitted for further evaluation [facility] Medical History Anticoagulated Pneumonia Wears glasses Eczema Osteoarthritis Bronchiectasis (~2006) Sleep apnea Asthma (~1959) Abnormal chest xray (~1979) Restless leg syndrome Migraines (~1964) Shoulder pain (~03/2018) Osteopenia Degenerative joint disease of spine (~2001) Foot pain Fibromyalgia Chronic back pain Cervical spine disease Ankle pain MRSA (methicillin resistant Staphylococcus aureus) (~2002) Anemia Hoarseness Recurrent sinusitis (~1970) Colon polyps (~2015) Hypothyroidism Diabetes mellitus, type II (~2009) Hypertension Hyperlipidemia Nail bed carcinoma Pneumonia Surgical History Anesthesia History of thumb surgery History of carpal tunnel release History of spinal fusion (~2012) History of laminectomy (~2002) History of section History of cataract removal with insertion of prosthetic lens (~2014) Family History Father Stroke Mother Hypertension Brother Cerebral aneurysm Prostate cancer Diabetes mellitus Hypertension Stroke Brother Arthritis Hyperlipidemia Hypertension Sister History of kidney cancer Hypertension Grandfather Cancer Grandmother Cancer Other Family history non-contributory Social History marital status: household members: spouse lives independently: Yes occupational status: previously employed Smoking Status: Never smoker alcohol intake: current substance use type: does not use Meds Home Medications and Allergies Home Medications Medication Instructions Recorded Confirmed Type polyethylene glycol 3350 17 17 gm PO DAILY PRN Constipation ##0 06/06/17 06/19/23 History gram/dose oral powder (Miralax) albuterol sulfate 90 mcg/actuation 2 puff inhalation Q4-6H PRN 05/29/19 06/19/23 History aerosol inhaler Shortness Of Breath cholecalciferol (vitamin D3) 50 2,000 unit PO DAILY 05/29/19 06/19/23 History mcg (2,000 unit) tablet ferrous sulfate 325 mg (65 mg 325 mg PO BEDTIME 05/29/19 06/19/23 History iron) tablet tizanidine 4 mg capsule 4 mg PO QID PRN Muscle Spasm 05/29/19 06/19/23 History sodium chloride 3 % for 3 ml inhalation BID 06/05/19 06/19/23 History nebulization cetirizine 10 mg capsule (Zyrtec) 10 mg PO DAILY allergies 01/20/20 06/19/23 History montelukast 10 mg tablet 10 mg PO BEDTIME 01/20/20 06/19/23 History (Singulair) verio reflect glucometer #1 ea 01/28/20 06/19/23 Rx insulin syringe-needle U-100 0.5 #100 ea 03/30/20 06/19/23 Rx mL 31 gauge x 5/16 (BD Insulin Syringe Ultra-Fine) metformin 1,000 mg tablet 1,000 mg PO BID #180 tabs 09/03/20 06/19/23 Rx atorvastatin 40 mg tablet 40 mg PO BEDTIME 04/20/21 06/19/23 History epinephrine 0.3 mg/0.3 mL 0.3 mg IM Q5-15M PRN Allergic 04/20/21 06/19/23 History injection, auto-injector (EpiPen) Reaction insulin glargine 100 unit/mL 20 unit SUBCUT QAM 04/20/21 06/19/23 History subcutaneous solution insulin lispro 100 unit/mL 4 - 8 unit SUBCUT TID 04/20/21 06/19/23 History subcutaneous pen (Humalog KwikPen (U-100) Insulin) levothyroxine 75 mcg tablet 75 mcg PO QAM 04/20/21 06/19/23 History tiotropium bromide 18 mcg capsule 1 cap inhalation DAILY 04/20/21 06/19/23 History with inhalation device (Spiriva with HandiHaler) lansoprazole 15 mg capsule,delayed 30 mg PO BID 04/29/21 06/19/23 History release (Prevacid 24Hr) duloxetine 30 mg capsule,delayed 30 mg PO DAILY 06/28/21 06/19/23 History release guaifenesin 1,200 mg tablet, 1,200 mg PO BID 06/28/21 06/19/23 History extended release 12 hr (Mucinex) pramipexole 0.5 mg tablet 0.5 mg PO BEDTIME 06/28/21 06/19/23 History fentanyl 25 mcg/hr transdermal 1 patch transdermal Q72H PRN pain 02/05/22 06/19/23 Rx patch (scale score 1-3) #5 ea omega-3 fatty acids 1,000 mg PO DAILY 04/24/22 06/19/23 History benralizumab 30 mg/mL subcutaneous 30 mg SUBCUT Q8W 06/03/22 06/19/23 History syringe (Fasenra) lsmnywbzzn-qqoadifravacn-japeeosm 1 tab PO Q6H PRN Migraine Headache 06/03/22 06/19/23 History 50 mg-325 mg-40 mg tablet oxycodone 5 mg capsule 15 mg PO Q6H PRN Pain (Scale Score 06/03/22 06/19/23 History 7-10) prednisone 5 mg tablet 5 mg PO DAILY 06/03/22 06/19/23 History Hizintra 15 g SUBCUT QWEEK 08/25/22 06/19/23 History fluticasone 500 mcg-salmeterol 50 1 inh inhalation Q12H 08/25/22 06/19/23 History mcg/dose blistr powdr for inhalation (Advair Diskus) aluminum-mag hydroxide-simethicone 30 ml PO Q6HR PRN Dyspepsia #355 mL 08/28/22 06/19/23 Rx 200 mg-200 mg-20 mg/5 mL oral susp (Mag-Al Plus) calcium carbonate 200 mg calcium 1,000 mg (5 x 200 mg calcium (500 08/28/22 06/19/23 Rx (500 mg) chewable tablet mg)) PO Q4HR PRN Dyspepsia #60 tabs docusate sodium 100 mg capsule 100 mg PO BID #60 caps 08/28/22 06/19/23 Rx sennosides 8.6 mg tablet (senna) 17.2 mg (2 x 8.6 mg) PO BEDTIME 08/28/22 06/19/23 Rx #60 tabs fentanyl 12 mcg/hr transdermal 12 mcg transdermal SEEINSTR 10/13/22 06/19/23 History patch warfarin 1 mg tablet 1 mg PO DAILY 10/13/22 06/19/23 History magnesium oxide 400 mg PO BID 04/08/23 06/19/23 History metoprolol succinate 25 mg 12.5 mg PO DAILY 04/08/23 06/19/23 History tablet,extended release 24 hr torsemide 20 mg tablet 20 mg PO BID 04/08/23 06/19/23 History acetaminophen 325 mg tablet 650 mg PO Q6H PRN Pain, Mild 06/19/23 06/19/23 History acyclovir 5 % topical ointment 1 applic topical Q4-5H PRN Rash 06/19/23 06/19/23 History amiodarone 200 mg tablet 200 mg PO BID 06/19/23 06/19/23 History clotrimazole 10 mg aneesh 10 mg PO 5XD 06/19/23 06/19/23 History diclofenac sodium 1 % topical gel 4 g topical QID PRN JOINT PAIN 06/19/23 06/19/23 History fluticasone propionate 50 1 spray intranasal BID 06/19/23 06/19/23 History mcg/actuation nasal spray,suspension ipratropium 0.5 mg-albuterol 3 mg 3 ml inhalation BID 06/19/23 06/19/23 History (2.5 mg base)/3 mL nebulization soln miconazole nitrate 2 % topical 1 applic topical QID PRN Rash 06/19/23 06/19/23 History powder naloxone 4 mg/actuation nasal spray 1 spray intranasal NOW PRN OVERDOSE 06/19/23 06/19/23 History ondansetron HCl 4 mg tablet 4 mg PO Q8H PRN Nausea And Vomiting 06/19/23 06/19/23 History oxymetazoline 0.05 % nasal drops 1 drp intranasal BID 06/19/23 06/19/23 History potassium chloride 20 mEq/15 mL 10 meq PO BIDWM 06/19/23 06/19/23 History oral liquid Allergies Allergy/AdvReac Type Severity Reaction Status Date / Time piperacillin [From Zosyn] Allergy Severe Rash Verified 04/08/23 17:46 tazobactam [From Zosyn] Allergy Severe Rash Verified 04/08/23 17:46 hydroxychloroquine Allergy Unknown Verified 04/08/23 13:14 [HYDROXYCHLOROQUINE] Sulfa (Sulfonamide Allergy Verified 06/19/23 17:00 Antibiotics) cefepime AdvReac Intermediate pruritis Verified 04/08/23 13:14 promethazine [From Phenergan] AdvReac Agitated Verified 04/08/23 13:14 Review of Systems Review of Systems Narrative: Patient is drowsy but easily wakes up and following commands. No acute distress Exam Vital Signs (past 8 hours): - 06/19/23 16:30 06/19/23 16:31 06/19/23 16:31 Temperature Pulse Rate 58 L 59 L Respiratory Rate 19 23 Blood Pressure 125/56 L Pulse Oximetry 99 98 Oxygen Delivery Method Nasal Cannula Oxygen Flow Rate 3 06/19/23 17:00 06/19/23 17:30 06/19/23 17:30 Temperature Pulse Rate 57 L 58 L Respiratory Rate 30 H 25 H Blood Pressure 136/73 Pulse Oximetry 98 100 Oxygen Delivery Method Nasal Cannula Oxygen Flow Rate 3 06/19/23 18:00 06/19/23 18:00 06/19/23 18:30 Temperature Pulse Rate 59 L 59 L Respiratory Rate 19 22 Blood Pressure 154/67 H Pulse Oximetry 99 100 Oxygen Delivery Method Oxygen Flow Rate 06/19/23 18:31 06/19/23 18:31 06/19/23 19:00 Temperature Pulse Rate 59 L 63 Respiratory Rate 26 H 37 H Blood Pressure 142/62 H Pulse Oximetry 99 97 Oxygen Delivery Method Oxygen Flow Rate 06/19/23 19:01 06/19/23 19:01 06/19/23 19:12 Temperature 98.3 F Pulse Rate 62 Respiratory Rate 28 H Blood Pressure 134/65 Pulse Oximetry 97 Oxygen Delivery Method Nasal Cannula Oxygen Flow Rate 3 06/19/23 19:30 06/19/23 19:33 06/19/23 19:33 Temperature Pulse Rate 60 61 Respiratory Rate 23 20 Blood Pressure 123/74 Pulse Oximetry 95 92 Oxygen Delivery Method Nasal Cannula Nasal Cannula Oxygen Flow Rate 3 3 06/19/23 20:00 06/19/23 20:20 06/20/23 00:00 Temperature 98.3 F 97.2 F L Pulse Rate 58 L 58 L 58 L Respiratory Rate 18 19 16 Blood Pressure 119/77 120/54 L Pulse Oximetry 95 97 94 Oxygen Delivery Method Nasal Cannula Oxygen Flow Rate 3 3 3 Oxygen Delivery Method Nasal Cannula Oxygen Flow Rate 3 Narrative Exam Narrative: Patient is drowsy but easily wakes up and following commands. No acute distress Air entry decreased at the bases no wheezes no crackles Abdomen on palpation appears benign no significant tenderness Objective Labs 06/19/23 14:15 06/19/23 14:15 Labs: Laboratory Results - last 24 hr 06/19/23 06/19/23 06/19/23 14:15 15:48 17:02 WBC 11.2 H RBC 4.30 Hgb 12.4 Hct 37.0 MCV 86.1 MCH 28.7 MCHC 33.4 RDW 21.3 H Plt Count 371 Neut % (Auto) 82.5 H Lymph % (Auto) 8.8 L [place] % (Auto) 8.4 Eos % (Auto) 0.0 L Baso % (Auto) 0.3 Neut # (Auto) 9200 H Lymph # (Auto) 1000 L [place] # (Auto) 900 Eos # (Auto) 0 Baso # (Auto) 0 RBC Morphology Not Reportable Poikilocytosis 1+ H Anisocytosis 1+ H PT 24.6 H INR 2.1 H VBG pH 7.49 H VBG pCO2 42.7 L VBG pO2 37 VBG HCO3 33 H VBG Total CO2 34 H VBG O2 Saturation 75 VBG Base Excess 10.0 H FiO2 32 Sodium 137 Potassium 3.7 Chloride 101 Carbon Dioxide 33 H BUN 25 H Creatinine 1.01 Estimated GFR 58 L BUN/Creatinine Ratio 24.8 H Glucose 102 Lactate 1.1 Calcium 9.6 Total Bilirubin 0.7 AST 34 ALT 20 Alkaline Phosphatase 96 Troponin I 0.022 NT-Pro-B Natriuret Pep 3690 H Total Protein 8.3 H Albumin 4.0 Globulin 4.3 H Albumin/Globulin Ratio 0.9 L Urine Color Yellow Urine Appearance Cloudy Urine pH 8.5 H Ur Specific [place] 1.015 Urine Protein Trace H Urine Glucose (UA) Negative Urine Ketones Negative Urine Occult Blood Negative Urine Nitrate Positive H Urine Bilirubin Negative Urine Urobilinogen 0.2 Ur Leukocyte Esterase 3+ H Urine RBC None seen Urine WBC 30-100/hpf H Ur Squamous Epith Cells 0-1 /hpf Urine Bacteria Many (>30) H Ur Culture Indicated? Specimen cultured Vol Urine Centrifuged 10ml (spun) Assessment & Plan Assessment & Plan narrative: 73 years old female with a past medical history of hypertension, congestive heart failure with preserved ejection fraction, chronic respiratory failure on home oxygen, prior pulmonary embolism/DVT on warfarin with IVC filter, diabetes mellitus insulin-dependent, sleep apnea, hypothyroidism, renal insufficiency, dyslipidemia, fibromyalgia and multiple other medical issues was brought to the emergency room for generalized weakness with altered mental status. 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 Spouse is able to give a decent history. Apparently reports the patient becomes more tired and lethargic whenever she has a urinary tract infection. She does have chronic pain for which she is on fentanyl patch/oxycodone that has not changed and currently on hizintra for common variable immunodeficiency that she takes as subcutaneous injection chart and abdominal wall. Has chronic cough with underlying bronchiectasis but but denies any recent worsening shortness of breath. Has had chronic respiratory failure needing 6 to 8 L of oxygen previously but now post mitral valve replacement, oxygen requirements are hovering around 3 to 4 L at baseline. Denies any vomiting. Does have chronic constipation with episodes of urinary incontinence. Unclear if the patient had fever at home. Denies any chest pain. In the emergency room workup showed mild leukocytosis and the INR is at 2.1. Urine analysis was positive for leukocyte esterase. Subsequent CT scan of the brain and the chest x-ray shows no acute process. CT abdomen shows no acute intra-abdominal process but does show some subcutaneous emphysema with areas of fat stranding in the abdominal wall anteriorly which is at the site where she takes the weekly injection for her immune deficiency. Patient denies any pain at that site. Patient has multiple allergies including to Zosyn and cefepime. Received IV Cipro and Flagyl in the emergency room and admitted for further evaluation Altered mental status in the setting of urinary tract infection. Treat the reversible factors and monitor closely. May need to be cautious with the narcotics to check if there are contributing but patient does have chronic pain syndrome. Monitor for now Urinary tract infection. Pending cultures continue IV ciprofloxacin initiated in the emergency room but watch the INR closely given the interaction of Cipro with Coumadin. Diabetes mellitus type 2 insulin-dependent. Resume the home glargine with insulin sliding scale. 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 Pharmacy to dose Congestive heart failure preserved ejection fraction with mitral stenosis. Hold off on diuretics due to poor p.o. intake and concerns for fluid depletion Hypertension. Resume the home metoprolol XL and watch the blood pressures closely DVT prophylaxis will be on Coumadin and INR is therapeutic Patient will be admitted under inpatient status. Given the mental status change with urinary tract infection in the setting of immunosuppression needing IV antibiotics, patient meets criteria for inpatient expect length of stay greater than 2 midnights
[2023-06-20 04:52] LABS: Add Manual Diff / Slide Review NO; Basophils Absolute Auto 0 /uL (0-100); Basophils Percent Auto 0.4 % (0-2); Eosinophils Absolute Auto 0 /uL (0-450); Hematocrit 31.2 % (36-46); Hemoglobin 10.5 g/dL (12.0-16.0); Lymphocytes Absolute Auto 1000 /uL (1100-4500); Mean Corpuscular HGB Conc 33.8 % (30-36); Mean Corpuscular Hemoglobin 28.9 PG (26-34); Mean Corpuscular Volume 85.5 fL (80-100); Monocytes Absolute Auto 1000 /uL (0-900); Monocytes Percent Auto 13.2 % (3-14); Neutrophils Absolute Auto 5400 /uL (1500-7000); Neutrophils Percent Auto 73.4 % (50-75); Platelet Count 320 X10^3/uL (150-400); Red Blood Cell Count 3.65 X10^6/uL (4.0-5.2); Red Cell Distribution Width 20.4 % (11.6-14.8); White Blood Cell Count 7.4 X10^3/uL (4.5-11.0)
[2023-06-20 04:53] LABS: Alanine Aminotransferase 16 IU/L (<35); Albumin Globulin Ratio 0.9 (1.0-2.8); Alkaline Phosphatase 79 U/L (38-126); Aspartate Aminotransferase 21 IU/L (14-36); BUN Creatinine Ratio 20.5 (6-22); Bilirubin Total 0.4 mg/dL (0.2-1.3); Blood Urea Nitrogen 18 mg/dL (7-17); Calcium 8.6 mg/dL (8.4-10.2); Carbon Dioxide 31 mmol/L (22-32); Chloride 105 mmol/L (98-107); Estimated Glomerular Filt Rate > 60 mL/min (>60); Globulin 3.3 g/dL (1.7-4.1); Glucose 132 mg/dL (80-110); HEMOLYSIS < 15 (0-50); Magnesium 1.8 mg/dL (1.6-2.3); Phosphorous 3.1 mg/dL (2.8-4.1); Potassium 3.8 mmol/L (3.4-5.1); Sodium 136 mmol/L (137-145); Total Protein 6.3 g/dL (6.3-8.2)
[2023-06-20 05:00] LABS: NT-proBNP (BNP-Adult 18+) 2730 pg/mL (<450)
[2023-06-20 05:03] LABS: Hemoglobin A1C% w Est Avg Glu 7.1 % (4.0-6.0)
[2023-06-20 05:10] LABS: Anisocytosis 1+
[2023-06-20] MEDS: LEVOTHYROXINE 75 MCG TABLET PO (06:38)
[2023-06-20] MEDS: CIPROFLOXACIN 400 MG/200 ML PIGGYBACK 200 MG IV (06:41)
[2023-06-20] MEDS: CLOTRIMAZOLE TROCHE 10 MG PO ×2 (06:45→21:56)
[2023-06-20] MEDS: MAGNESIUM OXIDE 400 MG TABLET PO ×2 (08:22→20:32)
[2023-06-20] MEDS: AMIODARONE 200 MG TABLET PO ×2 (08:22→20:31)
[2023-06-20] MEDS: CHOLECALCIFEROL (VITAMIN D3) 1,000 UNIT TABLET 2000 UNIT PO (08:22)
[2023-06-20] MEDS: DOCUSATE 100 MG CAPSULE PO ×2 (08:22→20:31)
[2023-06-20] MEDS: TORSEMIDE 10 MG TABLET 20 MG PO ×2 (08:23→20:31)
[2023-06-20] MEDS: guaiFENesin ER 600 MG TAB 1200 MG PO ×2 (08:23→20:32)
[2023-06-20] MEDS: PANTOPRAZOLE DR 40 MG TABLET PO ×2 (08:23→20:31)
[2023-06-20] MEDS: DULOXETINE 30 MG CAPSULE PO (08:23)
[2023-06-20] MEDS: FISH OIL 1,000 MG CAPSULE 1000 MG PO (08:24)
[2023-06-20] MEDS: predniSONE 5 MG TABLET PO (08:24)
[2023-06-20] MEDS: LORATADINE 10 MG TABLET PO (08:24)
[2023-06-20] MEDS: INSULIN GLARGINE 100 UNIT/ML 3ML PEN 20 UNIT SUBCUT (08:24)
[2023-06-20] MEDS: POTASSIUM CHLORIDE 20 MEQ/15 ML UDC 10 MEQ PO ×2 (08:26→17:04)
[2023-06-20] MEDS: INSULIN LISPRO 100 UNIT/ML 3ML VIAL SUBCUT ×4 (08:27→20:36)
[2023-06-20] MEDS: SODIUM CHLORIDE 0.9% FLUSH 10 ML IV ×2 (08:28→21:54)
[2023-06-20] MEDS: METOPROLOL ER 25 MG TABLET 12.5 MG PO (08:42)
[2023-06-20] MEDS: ERTAPENEM 1 GM in SODIUM CHLORIDE 0.9% 100 ML IV (09:26)
[2023-06-20] MEDS: ALBUTEROL 2.5 MG/3 ML NEB (ADULT) INH ×4 (10:49→19:11)
[2023-06-20] MEDS: SODIUM CHLORIDE 3 % 500 ML INH ×2 (10:49→19:11)
--- NOTE | 2023-06-20 11:20 | PT.IIE ---
Current Diagnoses Urinary tract infection, site not specified (06/19/23) Surgical History (Last Reviewed 05/06/23 @ 18:24 by Joanne Mckoy DO) Anesthesia History of carpal tunnel release History of cataract removal with insertion of prosthetic lens (~2014) History of section History of laminectomy (~2002) History of spinal fusion (~2012) History of thumb surgery Medical History (Last Reviewed 05/06/23 @ 18:24 by Joanne Mckoy DO) Abnormal chest xray (~1979) Anemia Ankle pain Anticoagulated Asthma (~1959) Bronchiectasis (~2006) Cervical spine disease Chronic back pain Colon polyps (~2015) Degenerative joint disease of spine (~2001) Diabetes mellitus, type II (~2009) Eczema Fibromyalgia Foot pain Hoarseness Hyperlipidemia Hypertension Hypothyroidism Migraines (~1964) 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 Osteopenia Pneumonia Pneumonia Recurrent sinusitis (~1970) Restless leg syndrome Shoulder pain (~03/2018) Sleep apnea Wears glasses Physical Therapy Inpatient Evaluation/Re-Eval M1 PT/OT-IP Prior Functional Status Start: 06/20/23 12:37 Freq: NEEDED Status: Active Protocol: Document 06/20/23 11:20 AB (Rec: 06/20/23 12:52 AB [id number]) Medical Review Prior Functional Status Medical History Reviewed Yes Communication with confusion; requires repetitions of questions and instructions Mobility and Gait spouse in room and provided PLOF and home set up stated that pt needs assist with bed mobility and transfers without AD and has not been walking since late last year due to B knee pain ( stated that knees are bone on bone and pt gets steroid shots ; also stated that pt's B shoulders are worn out); pt uses her electric scooter in/ out of the house but able to transfter reaching over to surfaces for support and spouse assists as needed. asked spouse regarding PT plan of care and goals and stated that he does not want ambulation to be a goal at this time. 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 ramp to enter Home Environment High Toilet,Walk in Shower, Ramp Home Equipment Front Wheel Walker,Four Wheel Walker,Straight Cane,Manual Wheelchair,Power Wheelchair/ Scooter,Shower Seat with Backrest,Hand Held Shower,Grab Bars Near Toilet,Grab Bars In Shower Additional Social History Comment pt has an adjustable bed with B rails M2 PT-IP Current Condition Start: 06/20/23 12:37 Freq: NEEDED Status: Active Protocol: Document 06/20/23 11:20 AB (Rec: 06/20/23 12:52 AB [id number]) Physical Therapy Current Condition Current Condition Evaluation Date 06/20/23 Treatment Diagnosis AMS; UTI; difficulty in walking Onset Date 06/19/23 M3 PT-IP Subjective Start: 06/20/23 12:37 Freq: NEEDED Status: Active Protocol: Document 06/20/23 11:20 AB (Rec: 06/20/23 12:52 AB [id number]) Subjective Physical Therapy Visit Type Type Initial Evaluation Visit Start Time 11:20 Visit Stop Time 11:45 Number of DIRECTOR OF VENDOR MANAGEMENT Visits 0 Physical Therapy Visit Comments Patient Comments agreeable to do PT Therapy Pain Assessment Pain When Pain Assessed At Rest Pain Present Pain Present Pain Reported Location Bilateral Knee Scale Used pain scale not stated M4 PT-IP Mobility and Gait Start: 06/20/23 12:37 Freq: NEEDED Status: Active Protocol: Document 06/20/23 11:20 AB (Rec: 06/20/23 12:52 AB [id number]) PT-Bed Mobility Assessment Supine to Sit Supine to Sit Maximum Assistance,1 Person Assistance,Head of Bed Elevated,Bedrails Scooting Scooting to Edge of Bed Maximum Assistance,Dependent PT-Transfer Assessment Sit to and From Stand Sit to and from Stand Maximum Assistance,2 Person Assistance,Use of Upper Extremities Equipment Transfer Assistive Device Front Wheeled Walker Orthotic/Prosthetic Devices or Brace: No Transfers Transfer Destination Bedside Commode Transfer Technique Stand Step Pivot Transfer Ability Level of Assist Maximum Assistance,2 Person Assistance,Use of Upper Extremities Comments Mobility Comments pt supine in bed and spouse in room. spouse provided pt's PLOF and home set up. pt with confusion but able to follow directions but need repetitions and max cues with all tasks. BP in supine: 116/ 46. O2 sat: 83% SC: 65. completed supine to sit max A and max cues with HOB elevated and use of bed rail to assist . pt needing increase time to complete task with rest breaks in between tasks. pt required max A to total A for scooting to EOB. completed sit to stand max A x 1-2 and max cues but pt stated that she seems like she is doing a BM and wants to use the toilet . pt sat back on EOB. Nurse in room and positioned bedside commode next to pt. pt completed sit to stand again max A x 2 and max cues and step transfer using fWW max a x 2 and max cues. required max A for controlled descent to the commode. Left pt with nurse. PT-Balance Assessment Sitting Balance and Reactions Static Sitting Balance Ability Good Dynamic Sitting Balance Ability Fair Standing Balance and Reactions Static Standing Balance Ability Poor Dynamic Standing Balance Ability Poor Device Used FWW M5 PT-IP Objective Assessments Start: 06/20/23 12:37 Freq: NEEDED Status: Active Protocol: Document 06/20/23 11:20 AB (Rec: 06/20/23 12:52 AB [id number]) Orientation Orientation/Cognition Level of Alertness Confusional State Orientation Name Safety Awareness Decreased Safety Awareness Memory Description Short Term Impaired Gross Range of Motion Lower Extremity ROM Assessment Bilaterally Impaired Impairments c/o pain with movement; (+) R knee crepitus LLE in ER Strength Lower Extremity Strength Assessment Bilaterally Impaired Hip 4-/5 Knee 3+/5 Muscle Tone Muscle Tone WNL Yes M6 PT-IP Treatment Start: 06/20/23 12:37 Freq: NEEDED Status: Active Protocol: Document 06/20/23 11:20 AB (Rec: 06/20/23 12:52 AB [id number]) Physical Therapy Treatment Education Education Provided Safety M7 PT-IP Assessment and Plan Start: 06/20/23 12:37 Freq: NEEDED Status: Active Protocol: Document 06/20/23 11:20 AB (Rec: 06/20/23 12:52 AB [id number]) PT Summary Assessment and Plan Potential Rehabilitation Potential Fair Status of Condition at Evaluation Evolving Summary Impairments Pain,ROM,Strength,Balance, Coordination,Sensation,Tone, Cognition,Bed Mobility, Transfers,Gait,Activity Tolerance Assessment Summary pt is a 73 y/o F who presented to the ED for confusion. pt admitted for altered mental status and UTI. pt requiring max A x 2 with transfers using fWW and at this time will require SNF rehab depending on progress. pt and spouse aware. will continue to assess progress. Goals Bed Mobility Goal Standby Assistance Transfer Goal Standby Assistance,Front Wheeled Walker Other Goals improve transfers SBA without AD Days to Meet Goals 10 Frequency of Treatment Frequency Of Treatment Once a Day Treatment Plan Physical Therapy Treatment Plan Bed Mobility Training,Transfer Training,Therapeutic Exercise ,Balance Retraining,Post Op Education,Discharge Planning, Hot or Cold Pack,Neuromuscular Re-ed,Coordination Retraining Precautions Other Precautions falls Recommendations To Nursing Amount of Assist Needed 2 Person Assist Discharge Recommendations PT Discharge Recommendations Home with 06/11 Assist Available,Home Health,SNF Rehab,Home vs SNF Transportation Needs at Discharge Private Vehicle,Wheelchair/ Cabulance
--- NOTE | 2023-06-20 12:44 | CM.DANOTE ---
Initial DCP Assessment Note Pt is a 73 yo female, resident of [place], multiple co-morbidities, presents with increased confusion and weakness. PCP: Karin Porter Payer: David SHAFFER Reviewed chart, this is patient's 15th visit to ER vs acute care floor over the last year. Patient w/chronic pain and resp failure, receives weekly injections for her immune deficiency. Patient lives with spouse, who is a retired Orthopedic PA. Patient is on O2 at home through [employer], requires assistance with most ADLs and has poor activity tolerance. Patient uses a manual wheelchair for longer distances. Patient has used [facility] int he past. CM team will plan to follow clinical course closely. Plan: Discharge home w/family is anticipated, HH services if patient and spouse feel this is needed or beneficial. MACKENZIE Dominguez Discharge Planning/Care Management Advanced directive, confirm from FAMILY Start: 06/19/23 20:58 Freq: Q24H Status: Active Protocol: Document 06/19/23 20:58 MP (Rec: 06/19/23 23:17 MP [id number]) Advance Directive, confirm on record Time 20:58 Person contacted spouse Copy received No CM Discharge Assessment Start: 06/20/23 12:41 Freq: Status: Active Protocol: Document 06/20/23 12:41 BEN (Rec: 06/20/23 12:44 BEN [id number]) Discharge Planning Assessment Assigned Economics Teacher MACKENZIE Heath DPOA/Assigned Designee Name Harjeet Zavaleta, spouse Contact Information [phone] Advance Directives? Yes: Advance Directive & POLST Advance Directives on File Yes History Provided By Patient,Significant Other, Medical Record Has Patient been admitted in last 30 No days? Comment Last admission was 12.24-12. Prior Living Arrangements House Household Members spouse Type of transporation used prior to Relies on Others admit Independent with ADL's No Is patient alert and oriented? Yes Comment Has shower chair as well, home oxygen is through [employer]. 5 ltrs at baseline. Patient/Family Preference Home with Home Health Barriers to Discharge No Comment medically and physically fragile. return home w/spouse, who is a retired Orthopedic PA-C Discharge Plan Home Transportation Arrangement Spouse Referrals Initiated Other Additional Comment resumption of [facility] potentially. Confirm [facility] can accept pt if appropriate for [facility]
[2023-06-20] MEDS: fentaNYL 12 MCG/PATCH TOP (13:13)
[2023-06-20] MEDS: fentaNYL 25 MCG/PATCH TOP (13:14)
--- NOTE | 2023-06-20 17:01 | OT.IPNOTE ---
Able to get prior level of care from pt and , pt refused to get up. To try again tomorrow for OT eval.
[2023-06-20] MEDS: WARFARIN 1 MG TABLET PO (17:04)
--- NOTE | 2023-06-20 17:55 | P.PN_ITS ---
Subjective Subjective Interval history: Patient improving today per . Much more coherent. UCx with >100k GNR. Exam Vital Signs (past 8 hours): - 06/20/23 10:52 06/20/23 12:00 06/20/23 14:08 Temperature 98.8 F Pulse Rate 55 L 86 60 Respiratory Rate 18 18 16 Blood Pressure 131/48 L Pulse Oximetry 93 96 96 Oxygen Delivery Method Nasal Cannula Nasal Cannula Oxygen Flow Rate 3 4 3 06/20/23 16:20 Temperature 99.3 F Pulse Rate 60 Respiratory Rate 18 Blood Pressure 115/47 L Pulse Oximetry 95 Oxygen Delivery Method Oxygen Flow Rate 4 Oxygen Delivery Method Nasal Cannula Oxygen Flow Rate 4 Narrative Exam Narrative: GEN: no acute distress, A&O x2, on supplemental oxygen HEENT: moist mucous membranes, PERRL NECK: trachea midline, no JVD CV: regular rate and rhythm, no murmurs PULM: clear bilaterally ABD: soft, nontender, nondistended, no organomegaly EXT: warm and well perfused with no edema NEURO: awake, alert, oriented, no focal deficits Objective Labs 06/20/23 04:06 06/20/23 04:06 Labs: Laboratory Results - last 24 hr 06/20/23 04:06 WBC 7.4 RBC 3.65 L Hgb 10.5 L Hct 31.2 L MCV 85.5 MCH 28.9 MCHC 33.8 RDW 20.4 H Plt Count 320 Neut % (Auto) 73.4 Lymph % (Auto) 13.0 L [place] % (Auto) 13.2 Eos % (Auto) 0.0 L Baso % (Auto) 0.4 Neut # (Auto) 5400 Lymph # (Auto) 1000 L [place] # (Auto) 1000 H Eos # (Auto) 0 Baso # (Auto) 0 RBC Morphology See below Anisocytosis 1+ H Sodium 136 L Potassium 3.8 Chloride 105 Carbon Dioxide 31 BUN 18 H Creatinine 0.88 Estimated GFR > 60 BUN/Creatinine Ratio 20.5 Glucose 132 H Hemoglobin A1c 7.1 H Calcium 8.6 Phosphorus 3.1 Magnesium 1.8 Total Bilirubin 0.4 AST 21 ALT 16 Alkaline Phosphatase 79 NT-Pro-B Natriuret Pep 2730 H Total Protein 6.3 Albumin 3.0 L Globulin 3.3 Albumin/Globulin Ratio 0.9 L PFSH Medical History Anticoagulated Pneumonia Wears glasses Eczema Osteoarthritis Bronchiectasis (~2006) Sleep apnea Asthma (~1959) Abnormal chest xray (~1979) Restless leg syndrome Migraines (~1964) Shoulder pain (~03/2018) Osteopenia Degenerative joint disease of spine (~2001) Foot pain Fibromyalgia Chronic back pain Cervical spine disease Ankle pain MRSA (methicillin resistant Staphylococcus aureus) (~2002) Anemia Hoarseness Recurrent sinusitis (~1970) Colon polyps (~2015) Hypothyroidism Diabetes mellitus, type II (~2009) Hypertension Hyperlipidemia Nail bed carcinoma Pneumonia Surgical History Anesthesia History of thumb surgery History of carpal tunnel release History of spinal fusion (~2012) History of laminectomy (~2002) History of section History of cataract removal with insertion of prosthetic lens (~2014) Family History Father Stroke Mother Hypertension Brother Cerebral aneurysm Prostate cancer Diabetes mellitus Hypertension Stroke Brother Arthritis Hyperlipidemia Hypertension Sister History of kidney cancer Hypertension Grandfather Cancer Grandmother Cancer Other Family history non-contributory Social History marital status: household members: spouse lives independently: Yes occupational status: previously employed Smoking Status: Never smoker alcohol intake: current substance use type: does not use Assessment & Plan Assessment & Plan narrative: Acute metabolic encephalopathy in the setting of urinary tract infection, improving -continue abx -mentation near baseline per Urinary tract infection, with h/o of ESBL UTI -Pending cultures, changed cipro to ertapenem due to ESBL history -f/up final urine cutlure results Diabetes mellitus type 2 insulin-dependent. -Resume the home glargine with insulin sliding scale. 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 Pharmacy to dose Congestive heart failure preserved ejection fraction with mitral stenosis. -Hold off on diuretics due to poor p.o. intake and concerns for fluid depletion Hypertension. -Resume the home metoprolol XL and watch the blood pressures closely Chronic pain. -continue fentanyl patch 37mcg daily DVT prophylaxis will be on Coumadin and INR is therapeutic Patient will be admitted under inpatient status. Given the mental status change with urinary tract infection in the setting of immunosuppression needing IV antibiotics, patient meets criteria for inpatient expect length of stay greater than 2 midnights
[2023-06-20] MEDS: BUDESONIDE 0.5 MG/2 ML NEB INH (19:11)
[2023-06-20] MEDS: MONTELUKAST 10 MG TABLET PO (20:31)
[2023-06-20] MEDS: SENNOSIDES 8.6 MG TABLET 17.2 MG PO (20:31)
[2023-06-20] MEDS: FERROUS SULFATE 325 MG TABLET PO (20:32)
[2023-06-20] MEDS: PRAMIPEXOLE 0.25 MG TABLET 0.5 MG PO (20:32)
[2023-06-20] MEDS: ATORVASTATIN 20 MG TABLET 40 MG PO (20:32)
[2023-06-21] VITALS (9 sets, daily range): BP systolic 102–148; BP diastolic 47–66; PULSE 62–70; RESP 17–24; TEMP 35.7–36.6; O2SAT 93–97
[2023-06-21 05:14] LABS: Add Manual Diff / Slide Review NO; Basophils Absolute Auto 0 /uL (0-100); Basophils Percent Auto 0.2 % (0-2); Eosinophils Absolute Auto 0 /uL (0-450); Hematocrit 31.1 % (36-46); Hemoglobin 10.3 g/dL (12.0-16.0); INR 2.4 (0.9-1.3); Lymphocytes Absolute Auto 1000 /uL (1100-4500); Lymphocytes Percent Auto 13.7 % (25-40); Mean Corpuscular HGB Conc 33.2 % (30-36); Mean Corpuscular Hemoglobin 28.5 PG (26-34); Mean Corpuscular Volume 85.8 fL (80-100); Monocytes Absolute Auto 1000 /uL (0-900); Monocytes Percent Auto 13.7 % (3-14); Neutrophils Absolute Auto 5400 /uL (1500-7000); Neutrophils Percent Auto 72.4 % (50-75); Platelet Count 304 X10^3/uL (150-400); Prothrombin Time 27.7 SECONDS (9.4-12.5); Red Blood Cell Count 3.63 X10^6/uL (4.0-5.2); Red Cell Distribution Width 20.8 % (11.6-14.8); White Blood Cell Count 7.4 X10^3/uL (4.5-11.0)
[2023-06-21 05:22] LABS: BUN Creatinine Ratio 19.1 (6-22); Blood Urea Nitrogen 17 mg/dL (7-17); Calcium 8.4 mg/dL (8.4-10.2); Carbon Dioxide 30 mmol/L (22-32); Chloride 102 mmol/L (98-107); Estimated Glomerular Filt Rate > 60 mL/min (>60); Glucose 179 mg/dL (80-110); HEMOLYSIS < 15 (0-50); Potassium 3.5 mmol/L (3.4-5.1); Sodium 136 mmol/L (137-145)
[2023-06-21 05:38] LABS: Free T4, Direct Thyroxine 2.05 ng/dL (0.78-2.19)
[2023-06-21 05:51] LABS: Thyroid Stimulating Hormone 3.78 uIU/mL (0.47-4.68)
[2023-06-21 06:09] LABS: Anisocytosis 1+; Poikilocytosis 1+
[2023-06-21] MEDS: CLOTRIMAZOLE TROCHE 10 MG PO ×5 (06:11→21:54)
[2023-06-21] MEDS: LEVOTHYROXINE 75 MCG TABLET PO (06:12)
--- NOTE | 2023-06-21 07:47 | PM.PN.1 ---
Subjective Subjective Interval history: She is doing well today, no nausea. She was able to transfer to the bathroom without difficulty. She denies any significant pain. Exam Vital Signs (past 8 hours): - 06/21/23 00:00 06/21/23 04:00 Temperature 96.3 F L 96.6 F L Pulse Rate 69 64 Respiratory Rate 17 17 Blood Pressure 120/66 102/47 L Pulse Oximetry 96 94 Oxygen Flow Rate 3 3 Oxygen Delivery Method Nasal Cannula Oxygen Flow Rate 3 Narrative Exam Narrative: NAD, alert and oriented, fluent speech, calm. Normocephalic skull, EOMI, anicteric sclera, symmetric pupils. Oropharynx unremarkable, no droop. Neck supple, midline trachea, no adenopathy. Lungs clear, normal rate and effort. Heart regular, no murmur gallop or rub. Abdomen is soft, non distended and non tender. Extremities are free of edema. Skin is free of rash or lesions. Joints are not swollen or deformed. Judgment appears to be normal. Objective Labs 06/21/23 04:35 06/21/23 04:35 Labs: Laboratory Results - last 24 hr 06/21/23 04:35 WBC 7.4 RBC 3.63 L Hgb 10.3 L Hct 31.1 L MCV 85.8 MCH 28.5 MCHC 33.2 RDW 20.8 H Plt Count 304 Neut % (Auto) 72.4 Lymph % (Auto) 13.7 L [place] % (Auto) 13.7 Eos % (Auto) 0.0 L Baso % (Auto) 0.2 Neut # (Auto) 5400 Lymph # (Auto) 1000 L [place] # (Auto) 1000 H Eos # (Auto) 0 Baso # (Auto) 0 RBC Morphology See below Poikilocytosis 1+ H Anisocytosis 1+ H PT 27.7 H INR 2.4 H Sodium 136 L Potassium 3.5 Chloride 102 Carbon Dioxide 30 BUN 17 Creatinine 0.89 Estimated GFR > 60 BUN/Creatinine Ratio 19.1 Glucose 179 H Calcium 8.4 TSH 3.78 Free T4 2.05 PFSH Medical History Anticoagulated Pneumonia Wears glasses Eczema Osteoarthritis Bronchiectasis (~2006) Sleep apnea Asthma (~1959) Abnormal chest xray (~1979) Restless leg syndrome Migraines (~1964) Shoulder pain (~03/2018) Osteopenia Degenerative joint disease of spine (~2001) Foot pain Fibromyalgia Chronic back pain Cervical spine disease Ankle pain MRSA (methicillin resistant Staphylococcus aureus) (~2002) Anemia Hoarseness Recurrent sinusitis (~1970) Colon polyps (~2015) Hypothyroidism Diabetes mellitus, type II (~2009) Hypertension Hyperlipidemia Nail bed carcinoma Pneumonia Surgical History Anesthesia History of thumb surgery History of carpal tunnel release History of spinal fusion (~2012) History of laminectomy (~2002) History of section History of cataract removal with insertion of prosthetic lens (~2014) Family History Father Stroke Mother Hypertension Brother Cerebral aneurysm Prostate cancer Diabetes mellitus Hypertension Stroke Brother Arthritis Hyperlipidemia Hypertension Sister History of kidney cancer Hypertension Grandfather Cancer Grandmother Cancer Other Family history non-contributory Social History marital status: household members: spouse lives independently: Yes occupational status: previously employed Smoking Status: Never smoker alcohol intake: current substance use type: does not use Assessment & Plan Assessment & Plan narrative: 1. Acute metabolic encephalopathy in the setting of urinary tract infection, resolved. -mentation near baseline per 2. Urinary tract infection, with h/o of ESBL UTI -Pending cultures, changed cipro to ertapenem due to ESBL history -f/up final urine cutlure results. DW Dr Whalen (ID) 3. Diabetes mellitus type 2 insulin-dependent. Present on admission and stable. -Resume the home glargine with insulin sliding scale. Hold off on metformin due to recent use of contrast 4. History of pulmonary embolism/DVT on anticoagulation with Coumadin and INR is therapeutic. Stable. 5. Chronic diastolic heart failure preserved ejection fraction with mitral stenosis (s/p recent percutaneous MVR). Stable. -Hold off on diuretics due to poor p.o. intake and concerns for fluid depletion 6. Hypertension. Present on admission and stable. -Resume the home metoprolol XL and watch the blood pressures closely 7. Chronic pain. Present on admission and stable. -continue fentanyl patch 37mcg daily DVT prophylaxis will be on Coumadin and INR is therapeutic Patient will be admitted under inpatient status. Given the mental status change with urinary tract infection in the setting of immunosuppression needing IV antibiotics, patient meets criteria for inpatient expect length of stay greater than 2 midnights
[2023-06-21] MEDS: INSULIN LISPRO 100 UNIT/ML 3ML VIAL SUBCUT ×5 (08:14→17:20)
[2023-06-21] MEDS: INSULIN GLARGINE 100 UNIT/ML 3ML PEN 20 UNIT SUBCUT (08:15)
[2023-06-21] MEDS: FISH OIL 1,000 MG CAPSULE 1000 MG PO (08:27)
[2023-06-21] MEDS: TORSEMIDE 10 MG TABLET 20 MG PO ×2 (08:27→21:38)
[2023-06-21] MEDS: METOPROLOL ER 25 MG TABLET 12.5 MG PO (08:27)
[2023-06-21] MEDS: DOCUSATE 100 MG CAPSULE PO ×2 (08:27→21:38)
[2023-06-21] MEDS: predniSONE 5 MG TABLET PO (08:27)
[2023-06-21] MEDS: DULOXETINE 30 MG CAPSULE PO (08:28)
[2023-06-21] MEDS: PANTOPRAZOLE DR 40 MG TABLET PO ×2 (08:28→21:39)
[2023-06-21] MEDS: LORATADINE 10 MG TABLET PO (08:28)
[2023-06-21] MEDS: CHOLECALCIFEROL (VITAMIN D3) 1,000 UNIT TABLET 2000 UNIT PO (08:28)
[2023-06-21] MEDS: guaiFENesin ER 600 MG TAB 1200 MG PO ×2 (08:28→21:39)
[2023-06-21] MEDS: AMIODARONE 200 MG TABLET PO ×2 (08:28→21:39)
[2023-06-21] MEDS: MAGNESIUM OXIDE 400 MG TABLET PO ×2 (08:28→21:39)
[2023-06-21] MEDS: ERTAPENEM 1 GM in SODIUM CHLORIDE 0.9% 100 ML IV (08:28)
[2023-06-21] MEDS: OXYCODONE IR 5 MG TABLET 15 MG PO ×2 (08:30→17:22)
[2023-06-21] MEDS: POTASSIUM CHLORIDE 20 MEQ/15 ML UDC 10 MEQ PO ×2 (08:30→17:21)
[2023-06-21] MEDS: SODIUM CHLORIDE 0.9% FLUSH 10 ML IV ×2 (08:32→21:40)
--- NOTE | 2023-06-21 09:50 | PT.IPTN ---
Current Diagnoses Urinary tract infection, site not specified (06/19/23) Physical Therapy Treatment Note M2 PT-IP Current Condition Start: 06/20/23 12:37 Freq: NEEDED Status: Active Protocol: Document 06/20/23 11:20 AB (Rec: 06/20/23 12:52 AB [id number]) Physical Therapy Current Condition Current Condition Evaluation Date 06/20/23 Treatment Diagnosis AMS; UTI; difficulty in walking Onset Date 06/19/23 M3 PT-IP Subjective Start: 06/20/23 12:37 Freq: NEEDED Status: Active Protocol: Document 06/21/23 10:40 TS (Rec: 06/21/23 10:49 TS [id number]) Subjective Physical Therapy Visit Type Type Treatment Note Visit Start Time 09:50 Visit Stop Time 10:13 Number of TOOL GRINDER OPERATOR SURFACE Visits 1 Physical Therapy Visit Comments Patient Comments Pt found resting in chair, is agreeable to PT. M4 PT-IP Mobility and Gait Start: 06/20/23 12:37 Freq: NEEDED Status: Active Protocol: Document 06/21/23 10:40 TS (Rec: 06/21/23 10:49 TS [id number]) PT-Transfer Assessment Sit to and From Stand Sit to and from Stand Minimal Assistance,1 Person Assistance,Use of Upper Extremities Equipment Transfer Assistive Device Gait Belt,Front Wheeled Walker Orthotic/Prosthetic Devices or Brace: No Comments Mobility Comments Spo2 96% on 3L prior to mobility. She performed knee flex/ext and ankle pumps sitting in chair. STS from chair x2 Perry with use of FWW, pt has some posterior leaning . She performed standing march in FWW with minimal feet clearance from floor. Pt requested to attempt to ambulate, She ambulated ~20' in room CGA with use of FWW. pt sat back in chair, Spo2 96% on on 3L's after mobility. Pt was left in chair, all needs met. Gait Assessment Gait Gait Assistance Required: Contact Guard Assist,1 Person Assist Distance (Feet) 20 Assistive Devices Assistive Device Gait Belt,Front Wheeled Walker Orthotic/Prosthetic Devices or Brace: No Gait Deviations General Gait Pattern Antalgic,Decreased Stride Length,Decreased Feet Clearance,Step-to Gait Factors Limiting Gait Function Factors Limiting Gait Function Decreased Activity Tolerance, Decreased Strength,Pain,Poor Balance,Poor Safety Awareness, Respiratory Distress Comments Gait Comments See mobility comments PT-Balance Assessment Sitting Balance and Reactions Static Sitting Balance Ability Good Dynamic Sitting Balance Ability Fair Standing Balance and Reactions Static Standing Balance Ability Fair Dynamic Standing Balance Ability Poor Device Used FWW M5 PT-IP Objective Assessments Start: 06/20/23 12:37 Freq: NEEDED Status: Active Protocol: Document 06/20/23 11:20 AB (Rec: 06/20/23 12:52 AB [id number]) Orientation Orientation/Cognition Level of Alertness Confusional State Orientation Name Safety Awareness Decreased Safety Awareness Memory Description Short Term Impaired Gross Range of Motion Lower Extremity ROM Assessment Bilaterally Impaired Impairments c/o pain with movement; (+) R knee crepitus LLE in ER Strength Lower Extremity Strength Assessment Bilaterally Impaired Hip 4-/5 Knee 3+/5 Muscle Tone Muscle Tone WNL Yes M6 PT-IP Treatment Start: 06/20/23 12:37 Freq: NEEDED Status: Active Protocol: Document 06/21/23 10:40 TS (Rec: 06/21/23 10:49 TS [id number]) Physical Therapy Treatment Education Education Provided Safety M7 PT-IP Assessment and Plan Start: 06/20/23 12:37 Freq: NEEDED Status: Active Protocol: Document 06/21/23 10:40 TS (Rec: 06/21/23 10:49 TS [id number]) PT Summary Assessment and Plan Potential Rehabilitation Potential Fair Summary Impairments Pain,ROM,Strength,Balance, Coordination,Sensation,Tone, Cognition,Bed Mobility, Transfers,Gait,Activity Tolerance Progress Towards Goals Progressing Toward Goals Assessment Summary Radha is making some progress with her mobility. She performed STS x2 with decreased assist to Perry with FWW. She progressed her gait to ~20'CGA with FWW. Her Spo2 remained in Mid 90's throughout session. PT is recommending pt return home with 24/7 assist and HHPT. Goals Bed Mobility Goal Standby Assistance Transfer Goal Standby Assistance,Front Wheeled Walker Other Goals improve transfers SBA without AD Days to Meet Goals 10 Frequency of Treatment Frequency Of Treatment Once a Day Treatment Plan Physical Therapy Treatment Plan Bed Mobility Training,Transfer Training,Therapeutic Exercise ,Balance Retraining,Post Op Education,Discharge Planning, Hot or Cold Pack,Neuromuscular Re-ed,Coordination Retraining Precautions Other Precautions falls Recommendations To Nursing Amount of Assist Needed 1 Person Assist Discharge Recommendations PT Discharge Recommendations Home with 24/7 Assist Available,Home Health Transportation Needs at Discharge Private Vehicle
[2023-06-21] MEDS: BUDESONIDE 0.5 MG/2 ML NEB INH ×2 (10:07→19:26)
[2023-06-21] MEDS: ALBUTEROL 2.5 MG/3 ML NEB (ADULT) INH ×3 (10:08→19:26)
[2023-06-21] MEDS: SODIUM CHLORIDE 3 % 500 ML INH ×2 (10:08→19:26)
--- NOTE | 2023-06-21 13:07 | PT-IP ANOTE ---
PT speaks with LOFTER and pt would now like a gait goal. PT is agreeable and writes gait goal for pt to work towards in the acute setting.
--- NOTE | 2023-06-21 14:57 | OT.IPNOTE ---
Pt just finished showering with nursing and states to tired for OT eval. Pt feels closer to her baseline and looking to go home possibly tomorrow. Pt states would like to have home health. NO charge
[2023-06-21] MEDS: POTASSIUM CHLORIDE 20 MEQ TAB PO (14:59)
[2023-06-21] MEDS: NYSTATIN POWDER 15GM 1 APPLIC TOP (17:21)
[2023-06-21] MEDS: DICLOFENAC 1% GEL 100 GM 1 APPLIC TOP (17:21)
[2023-06-21] MEDS: WARFARIN 1 MG TABLET 0.5 MG PO (17:22)
[2023-06-21] MEDS: PRAMIPEXOLE 0.25 MG TABLET 0.5 MG PO (21:38)
[2023-06-21] MEDS: ATORVASTATIN 20 MG TABLET 40 MG PO (21:39)
[2023-06-21] MEDS: FERROUS SULFATE 325 MG TABLET PO (21:39)
[2023-06-21] MEDS: MONTELUKAST 10 MG TABLET PO (21:39)
[2023-06-21] MEDS: SENNOSIDES 8.6 MG TABLET 17.2 MG PO (21:39)
[2023-06-22] VITALS (9 sets, daily range): BP systolic 124–137; BP diastolic 52–70; PULSE 65–75; RESP 16–18; TEMP 35.9–36.4; O2SAT 94–95
[2023-06-22] MEDS: MELATONIN 3 MG TABLET PO (00:41)
[2023-06-22] MEDS: CLOTRIMAZOLE TROCHE 10 MG PO ×2 (05:53→11:11)
[2023-06-22 05:55] LABS: Add Manual Diff / Slide Review NO; Basophils Absolute Auto 0 /uL (0-100); Basophils Percent Auto 0.4 % (0-2); Eosinophils Absolute Auto 0 /uL (0-450); Hemoglobin 10.7 g/dL (12.0-16.0); Lymphocytes Absolute Auto 900 /uL (1100-4500); Lymphocytes Percent Auto 11.2 % (25-40); Mean Corpuscular HGB Conc 33.3 % (30-36); Mean Corpuscular Hemoglobin 28.6 PG (26-34); Mean Corpuscular Volume 85.8 fL (80-100); Monocytes Absolute Auto 900 /uL (0-900); Monocytes Percent Auto 11.2 % (3-14); Neutrophils Absolute Auto 6400 /uL (1500-7000); Neutrophils Percent Auto 77.2 % (50-75); Platelet Count 328 X10^3/uL (150-400); Red Blood Cell Count 3.73 X10^6/uL (4.0-5.2); White Blood Cell Count 8.3 X10^3/uL (4.5-11.0)
[2023-06-22 06:01] LABS: BUN Creatinine Ratio 23.4 (6-22); Blood Urea Nitrogen 26 mg/dL (7-17); Calcium 8.7 mg/dL (8.4-10.2); Carbon Dioxide 32 mmol/L (22-32); Chloride 103 mmol/L (98-107); Estimated Glomerular Filt Rate 52 mL/min (>60); Glucose 179 mg/dL (80-110); HEMOLYSIS < 15 (0-50); Potassium 3.4 mmol/L (3.4-5.1); Sodium 139 mmol/L (137-145)
[2023-06-22] MEDS: LEVOTHYROXINE 75 MCG TABLET PO (06:01)
[2023-06-22 06:03] LABS: INR 2.1 (0.9-1.3); Prothrombin Time 24.4 SECONDS (9.4-12.5)
[2023-06-22 07:02] LABS: Anisocytosis 1+
[2023-06-22 07:03] LABS: Schistocytes 1+
[2023-06-22] MEDS: BUDESONIDE 0.5 MG/2 ML NEB INH (07:30)
[2023-06-22] MEDS: ALBUTEROL 2.5 MG/3 ML NEB (ADULT) INH ×2 (07:30→10:56)
[2023-06-22] MEDS: INSULIN GLARGINE 100 UNIT/ML 3ML PEN 20 UNIT SUBCUT (08:59)
[2023-06-22] MEDS: ERTAPENEM 1 GM in SODIUM CHLORIDE 0.9% 100 ML IV (08:59)
[2023-06-22] MEDS: INSULIN LISPRO 100 UNIT/ML 3ML VIAL SUBCUT ×4 (09:00→12:00)
[2023-06-22] MEDS: OXYCODONE IR 5 MG TABLET 15 MG PO (09:02)
[2023-06-22] MEDS: AMIODARONE 200 MG TABLET PO (09:03)
[2023-06-22] MEDS: PANTOPRAZOLE DR 40 MG TABLET PO (09:03)
[2023-06-22] MEDS: DOCUSATE 100 MG CAPSULE PO (09:03)
[2023-06-22] MEDS: TORSEMIDE 10 MG TABLET 20 MG PO (09:03)
[2023-06-22] MEDS: DULOXETINE 30 MG CAPSULE PO (09:03)
[2023-06-22] MEDS: LORATADINE 10 MG TABLET PO (09:03)
[2023-06-22] MEDS: guaiFENesin ER 600 MG TAB 1200 MG PO (09:03)
[2023-06-22] MEDS: CHOLECALCIFEROL (VITAMIN D3) 1,000 UNIT TABLET 2000 UNIT PO (09:04)
[2023-06-22] MEDS: METOPROLOL ER 25 MG TABLET 12.5 MG PO (09:04)
[2023-06-22] MEDS: MAGNESIUM OXIDE 400 MG TABLET PO (09:04)
[2023-06-22] MEDS: FISH OIL 1,000 MG CAPSULE 1000 MG PO (09:05)
[2023-06-22] MEDS: SODIUM CHLORIDE 0.9% FLUSH 10 ML IV (09:05)
[2023-06-22] MEDS: predniSONE 5 MG TABLET PO (09:05)
[2023-06-22] MEDS: SODIUM CHLORIDE 3 % 500 ML INH (09:19)
[2023-06-22] MEDS: POTASSIUM CHLORIDE 20 MEQ/15 ML UDC 40 MEQ PO (09:57)
--- NOTE | 2023-06-22 10:42 | CM.DPC ---
DCP Cont According to Dr Cervantes, patient will need 7 days total of IV ertapenem 1g Q24. Dr Whalen, ID will be following. Met w/patient and spouse Lucas to review discharge plan; updated that Dr Cervantes ordering IV ertapenem for total of 7 days, patient/spouse agreeable to plan and request home infusion through [facility]. Placed call to [facility] at [facility] to discuss this referral. Patient had a midline placed yesterday. Patient could likely discharge today if home infusion and HH in place. Faxed clinical packet to Carroll for review. According to spouse, PCP had made referral to [facility] two weeks ago, unsure if this is a resumption order vs new HH order. BRIAN [place], kindly agreed to [facility] on this. Plan: Discharge home w/spouse for assist, [facility], [facility] for ongoing IV ertapenem JW
--- NOTE | 2023-06-22 11:16 | PT.IPTN ---
Current Diagnoses Urinary tract infection, site not specified (06/19/23) Physical Therapy Treatment Note M2 PT-IP Current Condition Start: 06/20/23 12:37 Freq: NEEDED Status: Active Protocol: Document 06/20/23 11:20 AB (Rec: 06/20/23 12:52 AB [id number]) Physical Therapy Current Condition Current Condition Evaluation Date 06/20/23 Treatment Diagnosis AMS; UTI; difficulty in walking Onset Date 06/19/23 M3 PT-IP Subjective Start: 06/20/23 12:37 Freq: NEEDED Status: Active Protocol: Document 06/22/23 11:48 TS (Rec: 06/22/23 12:09 TS [id number]) Subjective Physical Therapy Visit Type Type Treatment Note Visit Start Time 11:16 Visit Stop Time 11:45 Number of MACHINE SETTER Visits 2 Physical Therapy Visit Comments Patient Comments Pt found resting in chair, reports she is walking more, is agreeable to PT. Therapy Pain Assessment Pain When Pain Assessed During Mobility Pain Present Pain Present Pain Reported M4 PT-IP Mobility and Gait Start: 06/20/23 12:37 Freq: NEEDED Status: Active Protocol: Document 06/22/23 11:48 TS (Rec: 06/22/23 12:09 TS [id number]) PT-Transfer Assessment Sit to and From Stand Sit to and from Stand Minimal Assistance,Moderate Assistance,1 Person Assistance ,Use of Upper Extremities Equipment Transfer Assistive Device Gait Belt,Front Wheeled Walker Orthotic/Prosthetic Devices or Brace: No Comments Mobility Comments Pt resting on 3L of o2, is agreeable to PT. Pt required cues for scooting up in chair before standing. STS from chair Perry with FWW, pt required cues for feet underneath and bending at waist. She ambulated ~15' CGA with slow step to gait, she requested to use commode. STS from commode, spouse performed pericare, she required ModA to stand due to some retroleaning. She ambulated back to chair ~15'CGA with FWW . Stand to sit CGA with cues for sequencing. pt was left in chair, all needs met, spouse in room, nursing notified. Gait Assessment Gait Gait Assistance Required: Contact Guard Assist,1 Person Assist Distance (Feet) 30 Assistive Devices Assistive Device Gait Belt,Front Wheeled Walker Orthotic/Prosthetic Devices or Brace: No Gait Deviations General Gait Pattern Antalgic,Decreased Stride Length,Decreased Feet Clearance,Step-to Gait Factors Limiting Gait Function Factors Limiting Gait Function Decreased Activity Tolerance, Decreased Strength,Pain,Poor Balance,Poor Safety Awareness, Respiratory Distress Comments Gait Comments See mobility comments PT-Balance Assessment Sitting Balance and Reactions Static Sitting Balance Ability Good Dynamic Sitting Balance Ability Fair Standing Balance and Reactions Static Standing Balance Ability Fair Dynamic Standing Balance Ability Poor Device Used FWW M5 PT-IP Objective Assessments Start: 06/20/23 12:37 Freq: NEEDED Status: Active Protocol: Document 06/20/23 11:20 AB (Rec: 06/20/23 12:52 AB [id number]) Orientation Orientation/Cognition Level of Alertness Confusional State Orientation Name Safety Awareness Decreased Safety Awareness Memory Description Short Term Impaired Gross Range of Motion Lower Extremity ROM Assessment Bilaterally Impaired Impairments c/o pain with movement; (+) R knee crepitus LLE in ER Strength Lower Extremity Strength Assessment Bilaterally Impaired Hip 4-/5 Knee 3+/5 Muscle Tone Muscle Tone WNL Yes M6 PT-IP Treatment Start: 06/20/23 12:37 Freq: NEEDED Status: Active Protocol: Document 06/22/23 11:48 TS (Rec: 06/22/23 12:09 TS [id number]) Physical Therapy Treatment Education Education Provided Safety M7 PT-IP Assessment and Plan Start: 06/20/23 12:37 Freq: NEEDED Status: Active Protocol: Document 06/22/23 11:48 TS (Rec: 06/22/23 12:09 TS [id number]) PT Summary Assessment and Plan Potential Rehabilitation Potential Fair Summary Impairments Pain,ROM,Strength,Balance, Coordination,Sensation,Tone, Cognition,Bed Mobility, Transfers,Gait,Activity Tolerance Progress Towards Goals Progressing Toward Goals Assessment Summary Radha continues to make some progress with her mobility. She requires Perry for STS from chair and ModA from commode, she requires max cues for STS sequencing. She progressed her gait to ~30'CGA with FWW, is unsteady but has no buckling or LOB. PT is recommending home with 06/11 assist and HHPT . Goals Bed Mobility Goal Standby Assistance Transfer Goal Standby Assistance,Front Wheeled Walker Gait Goal Standby Assistance,Front Wheel Walker Gait Distance 25 Other Goals improve transfers SBA without AD PT, Sabina, logs in to create gait goal at 1306 on 3/7/24 Days to Meet Goals 10 Frequency of Treatment Frequency Of Treatment Once a Day Treatment Plan Physical Therapy Treatment Plan Bed Mobility Training,Transfer Training,Therapeutic Exercise ,Balance Retraining,Post Op Education,Discharge Planning, Hot or Cold Pack,Neuromuscular Re-ed,Coordination Retraining Other Recommendations and Next Treatment Progress ambulation as able. Focus Precautions Other Precautions falls Recommendations To Nursing Amount of Assist Needed 1 Person Assist Discharge Recommendations PT Discharge Recommendations Home with 06/11 Assist Available,Home Health Transportation Needs at Discharge Private Vehicle
--- NOTE | 2023-06-22 13:26 | P.DS_ITS ---
History of Present Illness History of Present Illness Chief complaint: Increased confusion x2-3 days. 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 Spouse is able to give a decent history. Apparently reports the patient becomes more tired and lethargic whenever she has a urinary tract infection. She does have chronic pain for which she is on fentanyl patch/oxycodone that has not changed and currently on hizintra for common variable immunodeficiency that she takes as subcutaneous injection chart and abdominal wall. Has chronic cough with underlying bronchiectasis but but denies any recent worsening shortness of breath. Has had chronic respiratory failure needing 6 to 8 L of oxygen previously but now post mitral valve replacement, oxygen requirements are hovering around 3 to 4 L at baseline. Denies any vomiting. Does have chronic constipation with episodes of urinary incontinence. Unclear if the patient had fever at home. Denies any chest pain. In the emergency room workup showed mild leukocytosis and the INR is at 2.1. Urine analysis was positive for leukocyte esterase. Subsequent CT scan of the brain and the chest x-ray shows no acute process. CT abdomen shows no acute intra-abdominal process but does show some subcutaneous emphysema with areas of fat stranding in the abdominal wall anteriorly which is at the site where she takes the weekly injection for her immune deficiency. Patient denies any pain at that site. Patient has multiple allergies including to Zosyn and cefepime. Received IV Cipro and Flagyl in the emergency room and admitted for further evaluation Discharge Providers Provider Date of admission: 06/19/23 19:38 Discharge Date: 06/22/23 Primary care physician: Karin Porter MD Consults: 06/19/23 21:56 Consult to Occupational Therapy Evaluate & Treat Comment: Physician Instructions: Evaluate and treat Consult to Physical Therapy Evaluate & Treat Comment: Physician Instructions: Evaluate and Treat Discharge provider: Jorge Cervantes MD Summary Hospital Course Discharge Diagnosis: 1. Acute metabolic encephalopathy in the setting of urinary tract infection, resolved. -mentation near baseline per 2. Urinary tract infection, with h/o of ESBL UTI -Pending cultures, changed cipro to ertapenem due to ESBL history -f/up final urine cutlure results. Discussed with Dr Whalen (ID), recommendations for 7 days of ertapenem for cystitis. 3. Diabetes mellitus type 2 insulin-dependent. Present on admission and stable. -Resume the home glargine with insulin sliding scale. Hold off on metformin due to recent use of contrast 4. History of pulmonary embolism/DVT on anticoagulation with Coumadin and INR is therapeutic. Stable. 5. Chronic diastolic heart failure preserved ejection fraction with mitral stenosis (s/p recent percutaneous MVR). Stable. -Hold off on diuretics due to poor p.o. intake and concerns for fluid depletion 6. Hypertension. Present on admission and stable. -Resume the home metoprolol XL and watch the blood pressures closely 7. Chronic pain. Present on admission and stable. -continue fentanyl patch 37mcg daily Hospital Course: She was admitted with encephalopathy and recurrent cystitis. Organism was consistent with previous ESBL. She received 3 doses of ertapenem in the hospital from June 19 through June 21. The case was discussed with her Infectious Disease doctor recommended a total of 7 days of ertapenem at 1 g IV q.day for cystitis. The patient improved dramatically and normal mental status from June 20 on. Arrangements were made for a midline which was placed on June 20 and [facility] was able to accept her case and start her antibiotics at home on June 22 when the next dose is due. No change in other medications. Antibiotic treatment plan: Ertapenem 7 days' course, 1 g IV Q 24 hours. Doses 1 through 3 were given in the hospital On June 19 through June 21. [facility] will administer doses 4 through 7 from June 22 to June 25. Repeat CBC and CMP with copy to Dr. Galdamez on June 24 or . Status at Discharge Cognitive/behavioral status at discharge: oriented Functional status at discharge: uses cane/walker Overall status at discharge: patient is back to baseline Time Spent with Patient Time spent: Greater than 30 minutes Exam Vital Signs (past 8 hours): - 06/22/23 07:00 06/22/23 07:32 06/22/23 08:00 Temperature 96.6 F L Pulse Rate 71 Respiratory Rate 18 Blood Pressure 136/63 Pulse Oximetry 94 95 Oxygen Delivery Method Nasal Cannula Nasal Cannula Oxygen Flow Rate 3 3 06/22/23 09:04 06/22/23 09:19 06/22/23 10:21 Temperature Pulse Rate 71 75 71 Respiratory Rate 16 Blood Pressure 136/63 Pulse Oximetry 94 Oxygen Delivery Method Nasal Cannula Oxygen Flow Rate 3 06/22/23 10:56 06/22/23 12:00 Temperature 97.2 F L Pulse Rate 70 68 Respiratory Rate 16 18 Blood Pressure 129/70 Pulse Oximetry 95 94 Oxygen Delivery Method Nasal Cannula Oxygen Flow Rate 3 3 Oxygen Delivery Method Nasal Cannula Oxygen Flow Rate 3 Narrative Exam Narrative: NAD, alert and oriented. Fluent speech. Lungs are clear, normal rate and effort. Heart is regular, no murmur gallop or rub. Abdomen is soft, non distended. Extremities are free of edema. Objective Imaging Chest x-ray: Radiologist's impression: No acute cardiopulmonary abnormality is seen. CT scan - abdomen: Radiologist's impression: Anterior abdominal cutaneous and subcutaneous emphysema with areas of fat stranding. Findings may represent soft tissue infection versus iatrogenic. Recommend clinical correlation. No rim enhancing fluid collection to suggest abscess. CT scan - head: Radiologist's impression: No acute intracranial pathology within limitations related to motion artifact. Labs 06/22/23 04:35 06/22/23 04:35 Labs: Laboratory Results - last 24 hr 06/22/23 04:35 WBC 8.3 RBC 3.73 L Hgb 10.7 L Hct 32.0 L MCV 85.8 MCH 28.6 MCHC 33.3 RDW 21.0 H Plt Count 328 Neut % (Auto) 77.2 H Lymph % (Auto) 11.2 L [place] % (Auto) 11.2 Eos % (Auto) 0.0 L Baso % (Auto) 0.4 Neut # (Auto) 6400 Lymph # (Auto) 900 L [place] # (Auto) 900 Eos # (Auto) 0 Baso # (Auto) 0 RBC Morphology See below Anisocytosis 1+ H Schistocytes 1+ H PT 24.4 H INR 2.1 H Sodium 139 Potassium 3.4 Chloride 103 Carbon Dioxide 32 BUN 26 H Creatinine 1.11 H Estimated GFR 52 L BUN/Creatinine Ratio 23.4 H Glucose 179 H Calcium 8.7 PFSH Medical History Anticoagulated Pneumonia Wears glasses Eczema Osteoarthritis Bronchiectasis (~2006) Sleep apnea Asthma (~1960) Abnormal chest xray (~1979) Restless leg syndrome Migraines (~1964) Shoulder pain (~03/2018) Osteopenia Degenerative joint disease of spine (~2001) Foot pain Fibromyalgia Chronic back pain Cervical spine disease Ankle pain MRSA (methicillin resistant Staphylococcus aureus) (~2002) Anemia Hoarseness Recurrent sinusitis (~1970) Colon polyps (~2015) Hypothyroidism Diabetes mellitus, type II (~2009) Hypertension Hyperlipidemia Nail bed carcinoma Pneumonia Surgical History Anesthesia History of thumb surgery History of carpal tunnel release History of spinal fusion (~2012) History of laminectomy (~2002) History of section History of cataract removal with insertion of prosthetic lens (~2014) Family History Father Stroke Mother Hypertension Brother Cerebral aneurysm Prostate cancer Diabetes mellitus Hypertension Stroke Brother Arthritis Hyperlipidemia Hypertension Sister History of kidney cancer Hypertension Grandfather Cancer Grandmother Cancer Other Family history non-contributory Social History marital status: household members: spouse lives independently: Yes occupational status: previously employed Smoking Status: Never smoker alcohol intake: current substance use type: does not use Discharge Assessment & Plan Assessment and Plan Assessment: 1. Acute metabolic encephalopathy in the setting of urinary tract infection, resolved. 2. Urinary tract infection, with h/o of ESBL UTI -ertapenem due to ESBL history -Discussed with Dr Whalen (ID), recommendations for 7 days of ertapenem for cystitis. 3. Diabetes mellitus type 2 insulin-dependent. Present on admission and stable. 4. History of pulmonary embolism/DVT on anticoagulation with Coumadin and INR is therapeutic. Stable. 5. Chronic diastolic heart failure preserved ejection fraction with mitral stenosis (s/p recent percutaneous MVR). Stable. 6. Hypertension. Present on admission and stable. 7. Chronic pain. Present on admission and stable. -continue fentanyl patch 37mcg daily 8. Subcutaneous gas on CT of the abdomen in the ventral area. She has no pain there and she does have a continuous glucose monitor place there which is likely the cause of that CT scan finding. Plan of Treatment: -Discharge home when we will complete 4 additional days of ertapenem 1 g Q 24 hours, days June 22 through June 25. -follow up PCP within in the next week. -CBC and CMP on June 24 or with copy to Yolanda Samson Infectious disease.. Discharge Plan Discharge Plan Patient Disposition: Home Health Service Transfer to: [facility] Provider Discharge Comment: Stable for discharge home to complete a 7 day course of her dependent, she has a right midline. She is completed 3 days in the hospital. Discussed with Dr. Galdamez, her Infectious Disease doctor. She requires 4 additional days of ertapenem 1 g IV Q 24 hours from June 22 through June 25. A follow up CBC and CMP on June 24 or with copy to Dr. Glez please. Discharge orders & Medications Prescriptions: Continued polyethylene glycol 3350 [Miralax] 119 GM powder 17 gm PO DAILY PRN (Reason: Constipation) Qty: 0 (DME) insulin syringe-needle U-100 [BD Insulin Syringe Ultra-Fine] 0.5 mL 31 gauge x 5/16 syringe See Rx Instructions .ROUTE .MEDSUPPLY Qty: 100 1RF Rx Instructions: Use once a day as directed metformin 1,000 mg tablet 1,000 mg PO BID Qty: 180 0RF (DME) verio reflect glucometer Qty: 1 0RF Rx Instructions: As directed ferrous sulfate 325 mg (65 mg iron) tablet 325 mg PO BEDTIME tizanidine 4 mg capsule 4 mg PO QID PRN (Reason: Muscle Spasm) cholecalciferol (vitamin D3) 2,000 unit tablet 2,000 unit PO DAILY albuterol sulfate 90 mcg/actuation HFA aerosol inhaler 2 puff INHALATION Q4-6H PRN (Reason: Shortness Of Breath) lansoprazole [Prevacid 24Hr] 15 mg Capsule,Delayed Release(Dr/Ec) 30 mg PO BID fentanyl 25 mcg/hr patch 72 hour 1 patch transdermal Q72H PRN (Reason: pain (scale score 1-3)) Qty: 5 0RF Patient Comments: placed today at home omega-3 fatty acids Capsule 1,000 mg PO DAILY fluticasone propion-salmeterol [Advair Diskus] 500-50 mcg/dose Blister With Device 1 inh INHALATION Q12H Hizintra 15 g auto-injector 15 g SUBCUT QWEEK calcium carbonate 200 mg calcium (500 mg) Tablet,Chewable 1,000 mg PO Q4HR PRN (Reason: Dyspepsia) Qty: 60 0RF docusate sodium 100 mg Capsule 100 mg PO BID Qty: 60 0RF alum-mag hydroxide-simeth [Mag-Al Plus] 200-200-20 mg/5 mL Suspension 30 ml PO Q6HR PRN (Reason: Dyspepsia) Qty: 355 0RF sennosides [senna] 8.6 mg Tablet 17.2 mg PO BEDTIME Qty: 60 0RF metoprolol succinate 25 mg tablet extended release 24 hr 12.5 mg PO DAILY torsemide 20 mg tablet 20 mg PO BID magnesium oxide 400 mg magnesium Tablet 400 mg PO BID sodium chloride 3 % Solution For Nebulization 3 ml INHALATION BID Rx Instructions: use w/ nebulizer 2 x daily montelukast [Singulair] 10 mg Tablet 10 mg PO BEDTIME Zyrtec 10 mg Capsule 10 mg PO DAILY atorvastatin 40 mg Tablet 40 mg PO BEDTIME levothyroxine 75 mcg Tablet 75 mcg PO QAM epinephrine [EpiPen] 0.3 mg/0.3 mL Auto-Injector 0.3 mg IM Q5-15M PRN (Reason: Allergic Reaction) Rx Instructions: do not exceed 3 doses per episode tiotropium bromide [Spiriva with HandiHaler] 18 mcg Capsule, W/Inhalation Device 1 cap INHALATION DAILY Rx Instructions: puncture 1 cap using device; one dose = 2 inhalations insulin glargine 100 unit/mL solution 20 unit SUBCUT QAM insulin lispro [Humalog KwikPen Insulin] 100 unit/mL insulin pen 4 - 8 unit SUBCUT TID Rx Instructions: SLIDING SCALE USED AT HOME. pramipexole 0.5 mg tablet 0.5 mg PO BEDTIME duloxetine 30 mg Capsule,Delayed Release(Dr/Ec) 30 mg PO DAILY guaifenesin [Mucinex] 1,200 mg Tablet Extended Release 12hr 1,200 mg PO BID prednisone 5 mg tablet 5 mg PO DAILY [id number] 50-325-40 mg Tablet 1 tab PO Q6H PRN (Reason: Migraine Headache) oxycodone 5 mg Capsule 15 mg PO Q6H PRN (Reason: Pain (Scale Score 7-10)) Fasenra 30 mg/mL Syringe 30 mg SUBCUT Q8W fentanyl 12 mcg/hr patch 72 hour 12 mcg transdermal SEEINSTR Patient Comments: apply 1 patch to CLEAN, DRY, AND INTACT SKIN every 72 hours Rx Instructions: Q72HR in addition to 25mcg patch warfarin 1 mg tablet 1 mg PO DAILY Rx Instructions: TAKE 1MG TABLET BY MOUTH ON ODD DAYS & 0.5MG TABLET ON EVEN DAYS amiodarone 200 mg tablet 200 mg PO BID potassium chloride 20 mEq/15 mL liquid 10 meq PO BIDWM clotrimazole 10 mg aneesh 10 mg PO 5XD acetaminophen 325 mg Tablet 650 mg PO Q6H PRN (Reason: Pain, Mild) ondansetron HCl 4 mg tablet 4 mg PO Q8H PRN (Reason: Nausea And Vomiting) miconazole nitrate 2 % Powder 1 applic TOPICAL QID PRN (Reason: Rash) acyclovir 5 % Ointment 1 applic TOPICAL Q4-5H PRN (Reason: Rash) diclofenac sodium 1 % Gel 4 g TOPICAL QID PRN (Reason: JOINT PAIN) ipratropium-albuterol 0.5 mg-3 mg(2.5 mg base)/3 mL Solution For Nebulization 3 ml INHALATION BID fluticasone propionate 50 mcg/actuation spray,suspension 1 spray intranasal BID oxymetazoline 0.05 % Drops 1 drp INTRANASAL BID naloxone 4 mg/actuation spray,non-aerosol 1 spray intranasal NOW PRN (Reason: OVERDOSE) Follow up/Referrals: Karin Porter MD [Primary Care Provider] - Diet/Activity/Treatments Diet: Carb-consistent/Diabetic Activity: As tolerated. Skin/Wound/Dressing Care Report to your healthcare provider any signs of infection, such as:: chills, fever, night sweats, increased pain and unusual drainage Visit Report/Discharge Packet Stand Alone Forms: Patient Portal/API Discharge Data Primary Care Provider: Karin Porter Quality MIPS - DC The patient has a history of heart transplant or Left Ventricular Assist Device (LVAD). If yes, STOP here.: No The patient has current or prior documentation of left ventricular ejection fraction (LVEF) less than or equal to 40%, or moderate or severely depressed left ventricular systolic function.: No
--- NOTE | 2023-06-22 13:51 | CM.DPNOTE ---
DC Note Discharge home this afternoon; home w/spouse to assist, [facility] for 4 additional doses of IV ertapenem 1g Q24 (patient has full coverage for home infusion), kenia JACOBO RN/PT/OT/OPERATING MANAGER [employer] with [facility] re a Q from [facility] about heparin flush through patient's midline. BRIAN [place], coordinating with kenia JACOBO, F2F completed, order completed. Reviewed plan with patient and spouse, both agreeable to plan. Will plan to fax DC Summary to [facility] when available. BEN
== END 2023-06-22 14:35 | disposition home health service (06) | DRG 689 ==
LOC: ED 19:20 → AC 19:39
PROVIDERS: Student in an Organized Health Care Education/Training Program; Admitting Provider Internal Medicine; Emergency Provider Emergency Medicine; Family Provider Internal Medicine Infectious Disease; PCP Internal Medicine; Referring Provider Emergency Medicine; Visit Provider Internal Medicine
DX: N39.0 Urinary tract infection, site not specified (principal); G93.41 Metabolic encephalopathy; I50.32 Chronic diastolic (congestive) heart failure; J96.10 Chronic respiratory failure, unspecified whether with hypoxia or hypercapnia; E11.9 Type 2 diabetes mellitus without complications; I05.0 Rheumatic mitral stenosis; I11.0 Hypertensive heart disease with heart failure; G89.29 Other chronic pain; B96.20 Unspecified Escherichia coli [E. coli] as the cause of diseases classified elsewhere; R14.0 Abdominal distension (gaseous); E78.5 Hyperlipidemia, unspecified; E03.9 Hypothyroidism, unspecified; J45.909 Unspecified asthma, uncomplicated; G25.81 Restless legs syndrome; Z95.2 Presence of prosthetic heart valve; Z79.84 Long term (current) use of oral hypoglycemic drugs; Z79.01 Long term (current) use of anticoagulants; Z86.711 Personal history of pulmonary embolism; Z79.4 Long term (current) use of insulin; Z99.81 Dependence on supplemental oxygen
CPT/HCPCS: 36415; 51701; 70450; 71045; 74177; 80048; 80053; 81001; 82805; 82962; 83036; 83605; 83735; 83880; 84100; 84439; 84443; 84484; 85025; 85610; 87040; 87077; 87086; 87186; 93005; 93010; 94640; 94760; 94762; 96365; 96367; 97116; 97162; 97530; 99285; A9270; J0744; J1335; J1642; J1815; J7613; Q9967

== ENCOUNTER 2023-07-05 09:53 | Inpatient (IN) | payer OTHER, SELFPAY ==
[2023-05-06 18:45] VITALS: PULSE 72; RESP 20; O2SAT 95
[2023-06-19 20:39] VITALS: BMI 35.2
[2023-07-05] VITALS (47 sets, daily range): BP systolic 108–162; BP diastolic 45–86; PULSE 64–74; RESP 17–37; TEMP 36.3–38.1; O2SAT 86–97; BMI 32.1; BMI 34.3
--- NOTE | 2023-07-05 10:09 | DI.RAD.S_ITS ---
PROCEDURE: XR CHEST 1V INDICATIONS: suspected sepsis TECHNIQUE: One view of the chest was acquired. COMPARISON: [facility], CR, XR CHEST 1V, 06/19/2023, 14:52. FINDINGS: Surgical changes and devices: TAPVR Lungs and pleura: Interstitial pulmonary edema versus bilateral interstitial pneumonia. No pleural effusions or pneumothorax. Mediastinum: Mediastinal contours appear normal. Mild cardiomegaly. Bones and chest wall: No suspicious bony lesions. Overlying soft tissues appear unremarkable. IMPRESSION: Interstitial pulmonary edema versus bilateral interstitial pneumonia. Dictated by: Ryan Rolle M.D. on 07/05/2023 at 11:49 Approved by: Ryan Rolle M.D. on 07/05/2023 at 11:50
[2023-07-05] MEDS: ALBUTEROL/IPRATROPIUM 3 ML AMPUL INH ×2 (10:27→19:10)
[2023-07-05 10:39] LABS: Add Manual Diff / Slide Review NO; Basophils Absolute Auto 0 /uL (0-100); Basophils Percent Auto 0.5 % (0-2); Eosinophils Absolute Auto 0 /uL (0-450); Hemoglobin 11.2 g/dL (12.0-16.0); Lymphocytes Absolute Auto 800 /uL (1100-4500); Lymphocytes Percent Auto 9.7 % (25-40); Mean Corpuscular HGB Conc 32.9 % (30-36); Mean Corpuscular Hemoglobin 28.5 PG (26-34); Mean Corpuscular Volume 86.4 fL (80-100); Monocytes Absolute Auto 1000 /uL (0-900); Neutrophils Absolute Auto 6700 /uL (1500-7000); Neutrophils Percent Auto 77.8 % (50-75); Platelet Count 403 X10^3/uL (150-400); Red Blood Cell Count 3.93 X10^6/uL (4.0-5.2); Red Cell Distribution Width 19.6 % (11.6-14.8); White Blood Cell Count 8.5 X10^3/uL (4.5-11.0)
[2023-07-05 10:42] LABS: INR 2.4 (0.9-1.3); Lactate (Lactic Acid) 2.3 mmol/L (0.7-2.1); Prothrombin Time 27.3 SECONDS (9.4-12.5)
[2023-07-05 10:43] LABS: Alanine Aminotransferase 16 IU/L (<35); Albumin 3.6 g/dL (3.5-5.0); Albumin Globulin Ratio 0.8 (1.0-2.8); Alkaline Phosphatase 89 U/L (38-126); Aspartate Aminotransferase 21 IU/L (14-36); BUN Creatinine Ratio 24.4 (6-22); Bilirubin Total 0.5 mg/dL (0.2-1.3); Blood Urea Nitrogen 29 mg/dL (7-17); Calcium 9.2 mg/dL (8.4-10.2); Carbon Dioxide 33 mmol/L (22-32); Chloride 96 mmol/L (98-107); Estimated Glomerular Filt Rate 48 mL/min (>60); Globulin 4.3 g/dL (1.7-4.1); Glucose 193 mg/dL (80-110); HEMOLYSIS < 15 (0-50); Lipase 51 U/L (23-300); Potassium 3.9 mmol/L (3.4-5.1); Sodium 135 mmol/L (137-145); Total Protein 7.9 g/dL (6.3-8.2)
[2023-07-05 10:45] LABS: PTT Partial Thromboplastin Tim 46 SECONDS (25.1-36.5)
[2023-07-05 10:59] LABS: Procalcitonin 0.06 ng/mL (<0.5)
[2023-07-05 11:09] LABS: Adenovirus Not Detected (Not Detect); B. parapertussis Not Detected (Not Detecte); Bordetella pertussis Not Detected (Not Detect); Chlamydophila pneumoniae Not Detected (Not Detect); Coronavirus 229E Not Detected (Not Detect); Coronavirus HKU1 Not Detected (Not Detect); Coronavirus NL 63 Not Detected (Not Detect); Coronavirus OC43 Not Detected (Not Detect); Human Metapneumovirus Not Detected (Not Detect); Human Rhinovirus/Enterovirus Not Detected (Not Detect); Influenza A Not Detected (Not Detect); Influenza B Not Detected (Not Detect); Mycoplasma pneumoniae Not Detected (Not Detect); Parainfluenza Virus 1 Not Detected (Not Detect); Parainfluenza Virus 2 Not Detected (Not Detect); Parainfluenza Virus 3 Not Detected (Not Detect); Parainfluenza Virus 4 Not Detected (Not Detect); Respiratory Syncytial Virus Not Detected (Not Detect); SARS- CoV-2 Not Detected (Not Detecte)
--- NOTE | 2023-07-05 11:17 | ED.GENADULT ---
HPI - General Adult General Chief complaint: Fever Stated complaint: possible infection, uti Time Seen by Provider: 07/05/23 11:17 Source: patient Mode of arrival: Ambulatory History of Present Illness HPI narrative: 73-year-old woman with a history of pulmonary hypertension, bronchiectasis, mitral valve repair [facility] in April of this year, congestive heart failure, prior PE on warfarin with IVC filter in place, diabetes, renal insufficiency, hypothyroidism, hyperlipidemia, discharged from [facility] on June 21 after sepsis secondary to an ESBL UTI that was treated with ertapenem presents with chills increased oxygen requirements and altered mental status. Her notes that she was seen by her assembler convertible top at [facility] yesterday and everything seemed to be going fairly well. There were no significant changes to medications or oxygen at home. Last night as she got ready for bed oxygen saturations were in the 94% range. When she woke up this morning her noted that her oxygen saturations were down to 72%, she was having chills, an episode of emesis. She seemed increasingly altered had a temperature as high as 100.9? and he brings her in for further evaluation Related Data Home Medications Medication Instructions Recorded Confirmed polyethylene glycol 3350 17 17 gm PO DAILY PRN Constipation ##0 06/06/17 06/19/23 gram/dose oral powder (Miralax) albuterol sulfate 90 mcg/actuation 2 puff inhalation Q4-6H PRN 05/29/19 06/19/23 aerosol inhaler Shortness Of Breath cholecalciferol (vitamin D3) 50 2,000 unit PO DAILY 05/29/19 06/19/23 mcg (2,000 unit) tablet ferrous sulfate 325 mg (65 mg 325 mg PO BEDTIME 05/29/19 06/19/23 iron) tablet tizanidine 4 mg capsule 4 mg PO QID PRN Muscle Spasm 05/29/19 06/19/23 sodium chloride 3 % for 3 ml inhalation BID 06/05/19 06/19/23 nebulization cetirizine 10 mg capsule (Zyrtec) 10 mg PO DAILY allergies 01/20/20 06/19/23 montelukast 10 mg tablet 10 mg PO BEDTIME 01/20/20 06/19/23 (Singulair) atorvastatin 40 mg tablet 40 mg PO BEDTIME 04/20/21 06/19/23 epinephrine 0.3 mg/0.3 mL 0.3 mg IM Q5-15M PRN Allergic 04/20/21 06/19/23 injection, auto-injector (EpiPen) Reaction insulin glargine 100 unit/mL 20 unit SUBCUT QAM 04/20/21 06/19/23 subcutaneous solution insulin lispro 100 unit/mL 4 - 8 unit SUBCUT TID 04/20/21 06/19/23 subcutaneous pen (Humalog KwikPen (U-100) Insulin) levothyroxine 75 mcg tablet 75 mcg PO QAM 04/20/21 06/19/23 tiotropium bromide 18 mcg capsule 1 cap inhalation DAILY 04/20/21 06/19/23 with inhalation device (Spiriva with HandiHaler) lansoprazole 15 mg capsule,delayed 30 mg PO BID 04/29/21 06/19/23 release (Prevacid 24Hr) duloxetine 30 mg capsule,delayed 30 mg PO DAILY 06/28/21 06/19/23 release guaifenesin 1,200 mg tablet, 1,200 mg PO BID 06/28/21 06/19/23 extended release 12 hr (Mucinex) pramipexole 0.5 mg tablet 0.5 mg PO BEDTIME 06/28/21 06/19/23 omega-3 fatty acids 1,000 mg PO DAILY 04/24/22 06/19/23 benralizumab 30 mg/mL subcutaneous 30 mg SUBCUT Q8W 06/03/22 06/19/23 syringe (Fasenra) [id number]-wrgtxpunztjrv-elrfhsbd 1 tab PO Q6H PRN Migraine Headache 06/03/22 06/19/23 50 mg-325 mg-40 mg tablet oxycodone 5 mg capsule 15 mg PO Q6H PRN Pain (Scale Score 06/03/22 06/19/23 7-10) prednisone 5 mg tablet 5 mg PO DAILY 06/03/22 06/19/23 Hizintra 15 g SUBCUT QWEEK 08/25/22 06/19/23 fluticasone 500 mcg-salmeterol 50 1 inh inhalation Q12H 08/25/22 06/19/23 mcg/dose blistr powdr for inhalation (Advair Diskus) fentanyl 12 mcg/hr transdermal 12 mcg transdermal SEEINSTR 10/13/22 06/19/23 patch warfarin 1 mg tablet 1 mg PO DAILY 10/13/22 06/19/23 magnesium oxide 400 mg PO BID 04/08/23 06/19/23 metoprolol succinate 25 mg 12.5 mg PO DAILY 04/08/23 06/19/23 tablet,extended release 24 hr torsemide 20 mg tablet 20 mg PO BID 04/08/23 06/19/23 acetaminophen 325 mg tablet 650 mg PO Q6H PRN Pain, Mild 06/19/23 06/19/23 acyclovir 5 % topical ointment 1 applic topical Q4-5H PRN Rash 06/19/23 06/19/23 amiodarone 200 mg tablet 200 mg PO BID 06/19/23 06/19/23 clotrimazole 10 mg aneesh 10 mg PO 5XD 06/19/23 06/19/23 diclofenac sodium 1 % topical gel 4 g topical QID PRN JOINT PAIN 06/19/23 06/19/23 fluticasone propionate 50 1 spray intranasal BID 06/19/23 06/19/23 mcg/actuation nasal spray,suspension ipratropium 0.5 mg-albuterol 3 mg 3 ml inhalation BID 06/19/23 06/19/23 (2.5 mg base)/3 mL nebulization soln miconazole nitrate 2 % topical 1 applic topical QID PRN Rash 06/19/23 06/19/23 powder naloxone 4 mg/actuation nasal spray 1 spray intranasal NOW PRN OVERDOSE 06/19/23 06/19/23 ondansetron HCl 4 mg tablet 4 mg PO Q8H PRN Nausea And Vomiting 06/19/23 06/19/23 oxymetazoline 0.05 % nasal drops 1 drp intranasal BID 06/19/23 06/19/23 potassium chloride 20 mEq/15 mL 10 meq PO BIDWM 06/19/23 06/19/23 oral liquid Previous Rx's Medication Instructions Recorded verio reflect glucometer #1 ea 01/28/20 insulin syringe-needle U-100 0.5 #100 ea 03/30/20 mL 31 gauge x 5/16 (BD Insulin Syringe Ultra-Fine) metformin 1,000 mg tablet 1,000 mg PO BID #180 tabs 09/03/20 fentanyl 25 mcg/hr transdermal 1 patch transdermal Q72H PRN pain 02/05/22 patch (scale score 1-3) #5 ea aluminum-mag hydroxide-simethicone 30 ml PO Q6HR PRN Dyspepsia #355 mL 08/28/22 200 mg-200 mg-20 mg/5 mL oral susp (Mag-Al Plus) calcium carbonate 200 mg calcium 1,000 mg (5 x 200 mg calcium (500 08/28/22 (500 mg) chewable tablet mg)) PO Q4HR PRN Dyspepsia #60 tabs docusate sodium 100 mg capsule 100 mg PO BID #60 caps 08/28/22 sennosides 8.6 mg tablet (senna) 17.2 mg (2 x 8.6 mg) PO BEDTIME 08/28/22 #60 tabs Allergies Allergy/AdvReac Type Severity Reaction Status Date / Time piperacillin [From Zosyn] Allergy Severe Rash Verified 04/08/23 17:46 tazobactam [From Zosyn] Allergy Severe Rash Verified 04/08/23 17:46 hydroxychloroquine Allergy Unknown Verified 04/08/23 13:14 [HYDROXYCHLOROQUINE] Sulfa (Sulfonamide Allergy Verified 06/19/23 17:00 Antibiotics) cefepime AdvReac Intermediate pruritis Verified 04/08/23 13:14 promethazine [From Phenergan] AdvReac Agitated Verified 04/08/23 13:14 Review of Systems Review of Systems Narrative: Pertinent positive and negative findings as per HPI Patient History Medical History Anticoagulated Pneumonia Wears glasses Eczema Osteoarthritis Bronchiectasis (~2006) Sleep apnea Asthma (~1959) Abnormal chest xray (~1979) Restless leg syndrome Migraines (~1964) Shoulder pain (~03/2018) Osteopenia Degenerative joint disease of spine (~2001) Foot pain Fibromyalgia Chronic back pain Cervical spine disease Ankle pain MRSA (methicillin resistant Staphylococcus aureus) (~2002) Anemia Hoarseness Recurrent sinusitis (~1970) Colon polyps (~2015) Hypothyroidism Diabetes mellitus, type II (~2009) Hypertension Hyperlipidemia Nail bed carcinoma Pneumonia Surgical History Anesthesia History of thumb surgery History of carpal tunnel release History of spinal fusion (~2012) History of laminectomy (~2002) History of section History of cataract removal with insertion of prosthetic lens (~2014) Family History Father Stroke Mother Hypertension Brother Cerebral aneurysm Prostate cancer Diabetes mellitus Hypertension Stroke Brother Arthritis Hyperlipidemia Hypertension Sister History of kidney cancer Hypertension Grandfather Cancer Grandmother Cancer Other Family history non-contributory Social History marital status: household members: spouse lives independently: Yes occupational status: previously employed Smoking Status: Never smoker alcohol intake: current substance use type: does not use Smoking Status: Never smoker alcohol intake frequency: holidays/special occasions only Substance Use Type: does not use Exam Initial Vital Signs Initial Vital Signs: Vital Signs Pulse Rate 73 07/05/23 10:04 Blood Pressure 128/60 07/05/23 10:04 Pulse Oximetry 86 L 07/05/23 10:04 General: Chronically ill-appearing, fatigued, able to participate with history. HEENT: Moist mucous membranes, normal sclera with reactive pupils, Respiratory: Lungs with crackles through lung [place] but no specific rhonchi or wheezing. No accessory muscle use Cardiac: Regular rate and rhythm no murmurs no bruits Abdomen: Soft, nontender, good bowel tones, no flank pain Skin: Thin, bruising with various stages of healing. Mild chronic venous stasis changes Neurologic: She is able to directly answer questions, oriented to person time and place. Pill roll tremor at rest in the left hand. Globally weak but no localizing findings Extremities: No trauma, 1+ bilateral lower extremity edema Psych: Cooperative, fatigued appearing but fluent speech at this time Course Orders Ordered: ED Orders 07/05/23 10:07 Respiratory Panel (Film Array) Stat 07/05/23 10:09 XR chest 1V Stat EKG-12 Lead Stat RT Consult Eval and Treat NOW 07/05/23 10:20 BNP [NT-proBNP (BNP-Adult 18+)] Stat Complete Blood Count AUTO DIFF Stat Comprehensive Metabolic Panel Stat Lactate (Lactic Acid) Stat Lipase Stat PTT Partial Thromboplastin Luke Stat Procalcitonin Stat Prothrombin Time INR Stat Troponin I Stat 07/05/23 10:35 Blood Culture Stat 07/05/23 11:50 Urinalysis and Microscopic Stat Urine Culture Stat Ondansetron HCl (Ondansetron 4 Mg/2 Ml Inj) 4 mg IV NOW PRN PRN Reason: Nausea And Vomiting Discontinued Medications Albuterol/Ipratropium (Albuterol/Ipratropium 3 Ml Ampul) 3 ml INH NOW ONE Stop: 07/05/23 10:25 Last Admin: 07/05/23 10:27 Dose: 3 ml Documented By: MARIANGEL Sodium Chloride (Normal Saline 0.9%) 1,000 mls @ 1,000 mls/hr IV BOLUS ONE Stop: 07/05/23 11:07 Last Admin: 07/05/23 12:23 Dose: Not Given Documented By: GENEVIEVE Ertapenem 1 gm/ Sodium (Chloride) 100 mls @ 200 mls/hr IV NOW ONE Stop: 07/05/23 11:26 Last Infusion: 07/05/23 12:41 Dose: Infused Documented By: Admin: 07/05/23 11:59 Dose: 200 mls/hr Documented By: KAVON Sodium Chloride (Normal Saline 0.9%) 1,000 mls @ 1,000 mls/hr IV BOLUS ONE Stop: 07/05/23 12:24 Last Infusion: 07/05/23 14:48 Dose: Infused Documented By: Admin: 07/05/23 12:01 Dose: 1,000 mls/hr Documented By: KAVON Furosemide 60 mg/ Sodium (Chloride) 56 mls @ 112 mls/hr IV NOW ONE Stop: 07/05/23 13:42 Last Infusion: 07/05/23 14:48 Dose: Infused Documented By: Admin: 07/05/23 14:14 Dose: 112 mls/hr Documented By: GENEVIEVE Vital Signs Vital signs: Vital Signs - 8 hr 07/05/23 10:04 07/05/23 10:04 07/05/23 10:08 Temperature 99.6 F Pulse Rate 73 66 Respiratory Rate 17 Blood Pressure 128/60 128/60 Pulse Oximetry 86 L 87 L Oxygen Delivery Method Nasal Cannula Oxygen Flow Rate 4 07/05/23 10:12 07/05/23 10:28 07/05/23 10:30 Temperature Pulse Rate 64 65 Respiratory Rate 18 24 Blood Pressure Pulse Oximetry 92 95 95 Oxygen Delivery Method Nasal Cannula Nasal Cannula Nasal Cannula Oxygen Flow Rate 5 4 5 07/05/23 10:45 07/05/23 10:45 07/05/23 11:00 Temperature Pulse Rate 64 Respiratory Rate 25 H Blood Pressure 120/58 L 119/64 Pulse Oximetry 91 Oxygen Delivery Method Oxygen Flow Rate 3 07/05/23 11:00 07/05/23 11:30 07/05/23 11:30 Temperature Pulse Rate 65 69 Respiratory Rate 26 H 23 Blood Pressure 142/62 H Pulse Oximetry 96 91 Oxygen Delivery Method Nasal Cannula Nasal Cannula Oxygen Flow Rate 3 3 07/05/23 11:45 07/05/23 12:00 07/05/23 12:15 Temperature Pulse Rate 66 65 65 Respiratory Rate 34 H 21 26 H Blood Pressure Pulse Oximetry 90 L 95 95 Oxygen Delivery Method Nasal Cannula Nasal Cannula Oxygen Flow Rate 3 3 07/05/23 12:16 07/05/23 12:16 07/05/23 12:30 Temperature Pulse Rate 66 65 Respiratory Rate 26 H 21 Blood Pressure 118/60 Pulse Oximetry 96 96 Oxygen Delivery Method Oxygen Flow Rate 07/05/23 12:31 07/05/23 12:31 07/05/23 12:45 Temperature Pulse Rate 65 64 Respiratory Rate 21 18 Blood Pressure 133/58 L Pulse Oximetry 96 96 Oxygen Delivery Method Oxygen Flow Rate 07/05/23 13:00 07/05/23 13:01 07/05/23 13:01 Temperature Pulse Rate 66 66 Respiratory Rate 22 22 Blood Pressure 128/56 L Pulse Oximetry 96 95 Oxygen Delivery Method Oxygen Flow Rate 07/05/23 13:15 07/05/23 13:30 07/05/23 13:30 Temperature Pulse Rate 65 65 Respiratory Rate 24 24 Blood Pressure 117/57 L Pulse Oximetry 97 95 Oxygen Delivery Method Oxygen Flow Rate 07/05/23 13:45 07/05/23 14:00 07/05/23 14:00 Temperature Pulse Rate 66 69 Respiratory Rate 26 H 29 H Blood Pressure 108/78 Pulse Oximetry 93 92 Oxygen Delivery Method Oxygen Flow Rate 07/05/23 14:15 07/05/23 14:30 07/05/23 14:31 Temperature Pulse Rate 66 66 Respiratory Rate 23 29 H Blood Pressure 122/61 Pulse Oximetry 96 94 Oxygen Delivery Method Oxygen Flow Rate 07/05/23 14:31 Temperature Pulse Rate 66 Respiratory Rate 21 Blood Pressure Pulse Oximetry 94 Oxygen Delivery Method Oxygen Flow Rate Medical Decision Making Lab Data 07/05/23 10:20 07/05/23 10:20 Labs: Lab Results 07/05/23 07/05/23 07/05/23 Range/Units 10:07 10:20 11:50 WBC 8.5 (4.5-11.0) X10^3/uL RBC 3.93 L (4.0-5.2) X10^6/uL Hgb 11.2 L (12.0-16.0) g/dL Hct 34.0 L (36-46) % MCV 86.4 (80-100) fL MCH 28.5 (26-34) PG MCHC 32.9 (30-36) % RDW 19.6 H (11.6-14.8) % Plt Count 403 H (150-400) X10^3/uL Neut % (Auto) 77.8 H (50-75) % Lymph % (Auto) 9.7 L (25-40) % [place] % (Auto) 12.0 (3-14) % Eos % (Auto) 0.0 L (2-4) % Baso % (Auto) 0.5 (0-2) % Neut # (Auto) 6700 (4421-8264) /uL Lymph # (Auto) 800 L (8314-0544) /uL [place] # (Auto) 1000 H (0-900) /uL Eos # (Auto) 0 (0-450) /uL Baso # (Auto) 0 (0-100) /uL PT 27.3 H (9.4-12.5) SECONDS INR 2.4 H (0.9-1.3) APTT 46 H (25.1-36.5) SECONDS Sodium 135 L (137-145) mmol/L Potassium 3.9 (3.4-5.1) mmol/L Chloride 96 L (98-107) mmol/L Carbon Dioxide 33 H (22-32) mmol/L BUN 29 H (7-17) mg/dL Creatinine 1.19 H (0.52-1.04) mg/dL Estimated GFR 48 L (>60) mL/min BUN/Creatinine Ratio 24.4 H (6-22) Glucose 193 H (80-110) mg/dL Lactate 2.3 H (0.7-2.1) mmol/L Calcium 9.2 (8.4-10.2) mg/dL Total Bilirubin 0.5 (0.2-1.3) mg/dL AST 21 (14-36) IU/L ALT 16 (<35) IU/L Alkaline Phosphatase 89 (38-126) U/L Troponin I 0.012 (0.01-0.034) ng/mL NT-Pro-B Natriuret Pep 7980 H (<450) pg/mL Total Protein 7.9 (6.3-8.2) g/dL Albumin 3.6 (3.5-5.0) g/dL Globulin 4.3 H (1.7-4.1) g/dL Albumin/Globulin Ratio 0.8 L (1.0-2.8) Lipase 51 (23-300) U/L Procalcitonin 0.06 (<0.5) ng/mL Urine Color Yellow Urine Appearance Clear Urine pH 5.5 (4.5-8.0) Ur Specific [place] <=1.005 (1.000-1.035) Urine Protein Negative (Negative) Urine Glucose (UA) Negative (Negative) g/dL Urine Ketones Negative (NEGATIVE) Urine Occult Blood Trace-intact (Negative) Urine Nitrate Negative (Negative) Urine Bilirubin Negative (NEGATIVE) Urine Urobilinogen 0.2 (0.2) E.U./dL Ur Leukocyte Esterase 2+ H (NEGATIVE) Urine RBC 0-1/hpf (0-5/HPF) Urine WBC 30-100/hpf H (0-5/HPF) Ur Squamous Epith Cells 0-1 /hpf (0-5/HPF) Urine Bacteria Moderate (10-30) H (None) Ur Culture Indicated? Specimen cultured Vol Urine Centrifuged 10ml (spun) Chlamy pneumoniae PCR Not detected (Not Detect) Adenovirus (PCR) Not detected (Not Detect) B.parapertussis DNA PCR Not detected (Not Detecte) Coronavirus OC43 (PCR) Not detected (Not Detect) Coronavirus HKU1 (PCR) Not detected (Not Detect) Coronavirus 229E (PCR) Not detected (Not Detect) SARS-CoV-2 (PCR) Not detected (Not Detecte) Coronavirus NL63 (PCR) Not detected (Not Detect) Human Metapneumovir PCR Not detected (Not Detect) Influenza Type A (PCR) Not detected (Not Detect) Influenza Type B (PCR) Not detected (Not Detect) M. pneumoniae (PCR) Not detected (Not Detect) Parainfluenza 1 (PCR) Not detected (Not Detect) Parainfluenza 2 (PCR) Not detected (Not Detect) Parainfluenza 3 (PCR) Not detected (Not Detect) Parainfluenza 4 (PCR) Not detected (Not Detect) RSV (PCR) Not detected (Not Detect) Entero/Rhino (PCR) Not detected (Not Detect) 07/05/23 Range/Units 12:25 WBC (4.5-11.0) X10^3/uL RBC (4.0-5.2) X10^6/uL Hgb (12.0-16.0) g/dL Hct (36-46) % MCV (80-100) fL MCH (26-34) PG MCHC (30-36) % RDW (11.6-14.8) % Plt Count (150-400) X10^3/uL Neut % (Auto) (50-75) % Lymph % (Auto) (25-40) % [place] % (Auto) (3-14) % Eos % (Auto) (2-4) % Baso % (Auto) (0-2) % Neut # (Auto) (6275-3985) /uL Lymph # (Auto) (3843-7276) /uL [place] # (Auto) (0-900) /uL Eos # (Auto) (0-450) /uL Baso # (Auto) (0-100) /uL PT (9.4-12.5) SECONDS INR (0.9-1.3) APTT (25.1-36.5) SECONDS Sodium (137-145) mmol/L Potassium (3.4-5.1) mmol/L Chloride (98-107) mmol/L Carbon Dioxide (22-32) mmol/L BUN (7-17) mg/dL Creatinine (0.52-1.04) mg/dL Estimated GFR (>60) mL/min BUN/Creatinine Ratio (6-22) Glucose (80-110) mg/dL Lactate 1.5 (0.7-2.1) mmol/L Calcium (8.4-10.2) mg/dL Total Bilirubin (0.2-1.3) mg/dL AST (14-36) IU/L ALT (<35) IU/L Alkaline Phosphatase (38-126) U/L Troponin I (0.01-0.034) ng/mL NT-Pro-B Natriuret Pep (<450) pg/mL Total Protein (6.3-8.2) g/dL Albumin (3.5-5.0) g/dL Globulin (1.7-4.1) g/dL Albumin/Globulin Ratio (1.0-2.8) Lipase (23-300) U/L Procalcitonin (<0.5) ng/mL Urine Color Urine Appearance Urine pH (4.5-8.0) Ur Specific [place] (1.000-1.035) Urine Protein (Negative) Urine Glucose (UA) (Negative) g/dL Urine Ketones (NEGATIVE) Urine Occult Blood (Negative) Urine Nitrate (Negative) Urine Bilirubin (NEGATIVE) Urine Urobilinogen (0.2) E.U./dL Ur Leukocyte Esterase (NEGATIVE) Urine RBC (0-5/HPF) Urine WBC (0-5/HPF) Ur Squamous Epith Cells (0-5/HPF) Urine Bacteria (None) Ur Culture Indicated? Vol Urine Centrifuged Chlamy pneumoniae PCR (Not Detect) Adenovirus (PCR) (Not Detect) B.parapertussis DNA PCR (Not Detecte) Coronavirus OC43 (PCR) (Not Detect) Coronavirus HKU1 (PCR) (Not Detect) Coronavirus 229E (PCR) (Not Detect) SARS-CoV-2 (PCR) (Not Detecte) Coronavirus NL63 (PCR) (Not Detect) Human Metapneumovir PCR (Not Detect) Influenza Type A (PCR) (Not Detect) Influenza Type B (PCR) (Not Detect) M. pneumoniae (PCR) (Not Detect) Parainfluenza 1 (PCR) (Not Detect) Parainfluenza 2 (PCR) (Not Detect) Parainfluenza 3 (PCR) (Not Detect) Parainfluenza 4 (PCR) (Not Detect) RSV (PCR) (Not Detect) Entero/Rhino (PCR) (Not Detect) MDM Narrative Medical decision making narrative: CC: Chills, increased oxygen requirements, fever, altered mental status Complicating co-morbidities: Discharged from [facility] June 21 with sepsis secondary to an ESBL UTI, chronic pulmonary disease on home oxygen, significant medical history outlined in HPI Data collected from: , patient Medical records reviewed: Discharge summary from June 21 reviewed Differential considered: Sepsis, acute coronary event, recurrent pulmonary embolism Exam documented above, pertinent findings include: She appears weak and fatigued, pulmonary findings are consistent with her chronic bronchiectasis but no new rhonchi appreciated. No evidence of surgical abdomen, no suprapubic tenderness no flank pain. Chronic these stasis changes but no lower extremity cellulitis. She is fatigued and her notes that she seemed more confused this morning but she is able to cooperate fully with exam and answer all questions Lab Test results independently reviewed as above. Pertinent findings: CBC does not show significant leukocytosis. Chronic stable anemia Chemistries are notable for stable creatinine, BUN slightly elevated at 29. Potassium appropriate at 3.9. Liver studies are reassuring Initial lactic acid is elevated at 2.3 Procalcitonin is not elevated INR is therapeutic at 2.4 Full respiratory panel does not show obvious viral etiology Cath urine sample shows leukocyte esterase white blood cells and moderate bacteria specimen will be cultured Independently reviewed EKG: Sinus rhythm at a rate of 66. Right bundle branch block. No acute ischemic changes Imaging studies independently reviewed: Chest x-ray shows increased interstitial findings concerning for fluid overload as well as viral pneumonia. Mild cardiomegaly Treatments: We will start her on ertapenem based on urine culture from June 21 and concern for sepsis. Discussion: 73-year-old woman with multiple chronic medical issues with an acute change in overall status overnight with fever noted this morning, increased oxygen demands from 2 L to 4 L, urine sample again looks like she is developing bladder infection. Most recent UTI was an ESBL E coli. Patient does report that she has had a slight increase in sputum over the last number of days however she saw her assembler convertible top yesterday who did not recommend any changes. Her chest x-ray does suggest slight increase in interstitial densities. BNP is elevated suggesting a component of heart failure. No evidence of acute coronary syndrome. She has been treated with ertapenem based on prior urine cultures. She will be hospitalized and will need continued IV antibiotics presuming that she continues to have this ESBL E coli. She still remains slightly confused presumably from the E coli infection. Care is reviewed with the hospitalist service and patient will be admitted Discharge Plan Departure Patient Disposition: Admitted As Inpatient Clinical Impression: Infection due to ESBL-producing Escherichia coli, Acute metabolic encephalopathy, Acute and chronic respiratory failure with hypoxia Acute CHF (congestive heart failure) Qualifiers: Heart failure type: systolic Qualified Code(s): I50.21 - Acute systolic (congestive) heart failure Prescriptions: No Action polyethylene glycol 3350 [Miralax] 119 GM powder 17 gm PO DAILY PRN (Reason: Constipation) Qty: 0 (DME) insulin syringe-needle U-100 [BD Insulin Syringe Ultra-Fine] 0.5 mL 31 gauge x 5/16 syringe See Rx Instructions .ROUTE .MEDSUPPLY Qty: 100 1RF Rx Instructions: Use once a day as directed metformin 1,000 mg tablet 1,000 mg PO BID Qty: 180 0RF (DME) verio reflect glucometer Qty: 1 0RF Rx Instructions: As directed ferrous sulfate 325 mg (65 mg iron) tablet 325 mg PO BEDTIME tizanidine 4 mg capsule 4 mg PO QID PRN (Reason: Muscle Spasm) cholecalciferol (vitamin D3) 2,000 unit tablet 2,000 unit PO DAILY albuterol sulfate 90 mcg/actuation HFA aerosol inhaler 2 puff INHALATION Q4-6H PRN (Reason: Shortness Of Breath) lansoprazole [Prevacid 24Hr] 15 mg Capsule,Delayed Release(Dr/Ec) 30 mg PO BID fentanyl 25 mcg/hr patch 72 hour 1 patch transdermal Q72H PRN (Reason: pain (scale score 1-3)) Qty: 5 0RF Patient Comments: placed today at home omega-3 fatty acids Capsule 1,000 mg PO DAILY fluticasone propion-salmeterol [Advair Diskus] 500-50 mcg/dose Blister With Device 1 inh INHALATION Q12H Hizintra 15 g auto-injector 15 g SUBCUT QWEEK calcium carbonate 200 mg calcium (500 mg) Tablet,Chewable 1,000 mg PO Q4HR PRN (Reason: Dyspepsia) Qty: 60 0RF docusate sodium 100 mg Capsule 100 mg PO BID Qty: 60 0RF alum-mag hydroxide-simeth [Mag-Al Plus] 200-200-20 mg/5 mL Suspension 30 ml PO Q6HR PRN (Reason: Dyspepsia) Qty: 355 0RF sennosides [senna] 8.6 mg Tablet 17.2 mg PO BEDTIME Qty: 60 0RF metoprolol succinate 25 mg tablet extended release 24 hr 12.5 mg PO DAILY torsemide 20 mg tablet 20 mg PO BID magnesium oxide 400 mg magnesium Tablet 400 mg PO BID sodium chloride 3 % Solution For Nebulization 3 ml INHALATION BID Rx Instructions: use w/ nebulizer 2 x daily montelukast [Singulair] 10 mg Tablet 10 mg PO BEDTIME Zyrtec 10 mg Capsule 10 mg PO DAILY atorvastatin 40 mg Tablet 40 mg PO BEDTIME levothyroxine 75 mcg Tablet 75 mcg PO QAM epinephrine [EpiPen] 0.3 mg/0.3 mL Auto-Injector 0.3 mg IM Q5-15M PRN (Reason: Allergic Reaction) Rx Instructions: do not exceed 3 doses per episode tiotropium bromide [Spiriva with HandiHaler] 18 mcg Capsule, W/Inhalation Device 1 cap INHALATION DAILY Rx Instructions: puncture 1 cap using device; one dose = 2 inhalations insulin glargine 100 unit/mL solution 20 unit SUBCUT QAM insulin lispro [Humalog KwikPen Insulin] 100 unit/mL insulin pen 4 - 8 unit SUBCUT TID Rx Instructions: SLIDING SCALE USED AT HOME. pramipexole 0.5 mg tablet 0.5 mg PO BEDTIME duloxetine 30 mg Capsule,Delayed Release(Dr/Ec) 30 mg PO DAILY guaifenesin [Mucinex] 1,200 mg Tablet Extended Release 12hr 1,200 mg PO BID prednisone 5 mg tablet 5 mg PO DAILY kzrxebagzd-mooqcwpuafuyk-tuuf 50-325-40 mg Tablet 1 tab PO Q6H PRN (Reason: Migraine Headache) oxycodone 5 mg Capsule 15 mg PO Q6H PRN (Reason: Pain (Scale Score 7-10)) Fasenra 30 mg/mL Syringe 30 mg SUBCUT Q8W fentanyl 12 mcg/hr patch 72 hour 12 mcg transdermal SEEINSTR Patient Comments: apply 1 patch to CLEAN, DRY, AND INTACT SKIN every 72 hours Rx Instructions: Q72HR in addition to 25mcg patch warfarin 1 mg tablet 1 mg PO DAILY Rx Instructions: TAKE 1MG TABLET BY MOUTH ON ODD DAYS & 0.5MG TABLET ON EVEN DAYS amiodarone 200 mg tablet 200 mg PO BID potassium chloride 20 mEq/15 mL liquid 10 meq PO BIDWM clotrimazole 10 mg aneesh 10 mg PO 5XD acetaminophen 325 mg Tablet 650 mg PO Q6H PRN (Reason: Pain, Mild) ondansetron HCl 4 mg tablet 4 mg PO Q8H PRN (Reason: Nausea And Vomiting) miconazole nitrate 2 % Powder 1 applic TOPICAL QID PRN (Reason: Rash) acyclovir 5 % Ointment 1 applic TOPICAL Q4-5H PRN (Reason: Rash) diclofenac sodium 1 % Gel 4 g TOPICAL QID PRN (Reason: JOINT PAIN) ipratropium-albuterol 0.5 mg-3 mg(2.5 mg base)/3 mL Solution For Nebulization 3 ml INHALATION BID fluticasone propionate 50 mcg/actuation spray,suspension 1 spray intranasal BID oxymetazoline 0.05 % Drops 1 drp INTRANASAL BID naloxone 4 mg/actuation spray,non-aerosol 1 spray intranasal NOW PRN (Reason: OVERDOSE) Referrals: Karin Porter MD [Primary Care Provider] -
[2023-07-05] MEDS: ERTAPENEM 1 GM in SODIUM CHLORIDE 0.9% 100 ML IV (11:59)
[2023-07-05 12:00] LABS: Appearance Urine UA CLEAR; Bilirubin Urine UA NEGATIVE (NEGATIVE); Color Urine UA YELLOW; Glucose Urine UA NEGATIVE (Negative); Ketones Urine UA NEGATIVE (NEGATIVE); Leukocyte Esterase Urine UA 2+ (NEGATIVE); Nitrite Urine UA NEGATIVE (Negative); Occult Blood Urine UA TRACE-INTACT (Negative); Protein Urine UA NEGATIVE (Negative); Specific Gravity Urine UA <=1.005 (1.000-1.035); Urobilinogen Urine UA 0.2 E.U./dL (0.2)
[2023-07-05 12:01] LABS: Reflexed Lactate in 2 Hours Y
[2023-07-05] MEDS: SODIUM CHLORIDE 0.9% 1,000 ML 1000 ML IV (12:01)
[2023-07-05 12:05] LABS: pH Urine UA 5.5 (4.5-8.0)
[2023-07-05 12:08] LABS: Bacteria Urine Moderate (10-30); RBC Urine 0-1/HPF (0-5/HPF); Urine Volume 10mL (spun)
[2023-07-05 12:09] LABS: Culture Indicated Urine Specimen Cultured; Squamous Epithelial Cell Urine 0-1 /HPF (0-5/HPF); WBC Urine 30-100/HPF (0-5/HPF)
[2023-07-05 12:50] LABS: Lactate 2HR (Lactic Acid Rflx) 1.5 mmol/L (0.7-2.1)
[2023-07-05 13:12] LABS: NT-proBNP (BNP-Adult 18+) 7980 pg/mL (<450); Troponin I 0.012 ng/mL (0.01-0.034)
[2023-07-05] MEDS: FUROSEMIDE 60 MG in SODIUM CHLORIDE 0.9% 50 ML 112 MG IV (14:14)
[2023-07-05 17:51] LABS: Magnesium 1.8 mg/dL (1.6-2.3)
[2023-07-05] MEDS: WARFARIN 1 MG TABLET 0.5 MG PO (18:57)
[2023-07-05] MEDS: BUDESONIDE 0.5 MG/2 ML NEB INH (19:10)
--- NOTE | 2023-07-05 19:15 | P.HP_ITS ---
History of Present Illness History of Present Illness Date Patient Seen: 07/05/23 Chief complaint: possible infection, uti Narrative: Radha Zavaleta is a 71-year-old female with a history of asthma, bronchiectasis with multiple previous pseudomonal, stenotrophomonas and MRSA pneumonias on chronic azithro, chronic hypoxic resp failure on 5L NC, CVID on q3w IVIG infusions and prednisone, A-fib not on anticaog due to hematoma, , NSTEMI in January 2022, LORENE, DM2, asthma, chronic hip and back pain on fentanyl patch, hypothyroidism, hypertension and hyperlipidemia who presents with AMS, subjective fever and UTI. Patient's is providing history. He states she was feeling well yesterday and went to bed fine. She then awoke with a temp fo 100.9F and some coughing. He noted she seemed a bit off so brought her to the ED. Once in the ED her UA showed pyuria and CXR pulm edema vs PNA. Patient denies CP, NV, diarrhea or vertigo. [facility] Medical History Anticoagulated Pneumonia Wears glasses Eczema Osteoarthritis Bronchiectasis (~2006) Sleep apnea Asthma (~1959) Abnormal chest xray (~1979) Restless leg syndrome Migraines (~1964) Shoulder pain (~03/2018) Osteopenia Degenerative joint disease of spine (~2001) Foot pain Fibromyalgia Chronic back pain Cervical spine disease Ankle pain MRSA (methicillin resistant Staphylococcus aureus) (~2002) Anemia Hoarseness Recurrent sinusitis (~1970) Colon polyps (~2015) Hypothyroidism Diabetes mellitus, type II (~2009) Hypertension Hyperlipidemia Nail bed carcinoma Pneumonia Surgical History Anesthesia History of thumb surgery History of carpal tunnel release History of spinal fusion (~2012) History of laminectomy (~2002) History of section History of cataract removal with insertion of prosthetic lens (~2014) Family History Father Stroke Mother Hypertension Brother Cerebral aneurysm Prostate cancer Diabetes mellitus Hypertension Stroke Brother Arthritis Hyperlipidemia Hypertension Sister History of kidney cancer Hypertension Grandfather Cancer Grandmother Cancer Other Family history non-contributory Social History marital status: household members: spouse lives independently: Yes occupational status: previously employed Smoking Status: Never smoker alcohol intake: current substance use type: does not use Meds Home Medications and Allergies Home Medications Medication Instructions Recorded Confirmed Type polyethylene glycol 3350 17 17 gm PO DAILY PRN Constipation ##0 06/06/17 07/05/23 History gram/dose oral powder (Miralax) albuterol sulfate 90 mcg/actuation 2 puff inhalation Q4-6H PRN 05/29/19 07/05/23 History aerosol inhaler Shortness Of Breath cholecalciferol (vitamin D3) 50 2,000 unit PO DAILY 05/29/19 07/05/23 History mcg (2,000 unit) tablet ferrous sulfate 325 mg (65 mg 325 mg PO BEDTIME 05/29/19 07/05/23 History iron) tablet tizanidine 4 mg capsule 4 mg PO QID PRN Muscle Spasm 05/29/19 07/05/23 History sodium chloride 3 % for 3 ml inhalation BID 06/05/19 07/05/23 History nebulization cetirizine 10 mg capsule (Zyrtec) 10 mg PO DAILY allergies 01/20/20 07/05/23 History montelukast 10 mg tablet 10 mg PO BEDTIME 01/20/20 07/05/23 History (Singulair) verio reflect glucometer #1 ea 01/28/20 07/05/23 Rx insulin syringe-needle U-100 0.5 #100 ea 03/30/20 07/05/23 Rx mL 31 gauge x 5/16 (BD Insulin Syringe Ultra-Fine) metformin 1,000 mg tablet 1,000 mg PO BID #180 tabs 09/03/20 07/05/23 Rx atorvastatin 40 mg tablet 40 mg PO BEDTIME 04/20/21 07/05/23 History epinephrine 0.3 mg/0.3 mL 0.3 mg IM Q5-15M PRN Allergic 04/20/21 07/05/23 History injection, auto-injector (EpiPen) Reaction insulin glargine 100 unit/mL 20 unit SUBCUT QAM 04/20/21 07/05/23 History subcutaneous solution insulin lispro 100 unit/mL 4 - 8 unit SUBCUT TID 04/20/21 07/05/23 History subcutaneous pen (Humalog KwikPen (U-100) Insulin) levothyroxine 75 mcg tablet 75 mcg PO QAM 04/20/21 07/05/23 History tiotropium bromide 18 mcg capsule 1 cap inhalation DAILY 04/20/21 07/05/23 History with inhalation device (Spiriva with HandiHaler) lansoprazole 15 mg capsule,delayed 30 mg PO BID 04/29/21 07/05/23 History release (Prevacid 24Hr) duloxetine 30 mg capsule,delayed 30 mg PO DAILY 06/28/21 07/05/23 History release guaifenesin 1,200 mg tablet, 1,200 mg PO BID 06/28/21 07/05/23 History extended release 12 hr (Mucinex) pramipexole 0.5 mg tablet 0.5 mg PO BEDTIME 06/28/21 07/05/23 History fentanyl 25 mcg/hr transdermal 1 patch transdermal Q72H PRN pain 02/05/22 07/05/23 Rx patch (scale score 1-3) #5 ea omega-3 fatty acids 1,000 mg PO DAILY 04/24/22 07/05/23 History benralizumab 30 mg/mL subcutaneous 30 mg SUBCUT Q8W 06/03/22 07/05/23 History syringe (Fasenra) tejmxerjyp-ktczdxgjjnclh-sskdgrtj 1 tab PO Q6H PRN Migraine Headache 06/03/22 07/05/23 History 50 mg-325 mg-40 mg tablet oxycodone 5 mg capsule 15 mg PO Q6H PRN Pain (Scale Score 06/03/22 07/05/23 History 7-10) prednisone 5 mg tablet 5 mg PO DAILY 06/03/22 07/05/23 History Hizintra 15 g SUBCUT QWEEK 08/25/22 07/05/23 History fluticasone 500 mcg-salmeterol 50 1 inh inhalation Q12H 08/25/22 07/05/23 History mcg/dose blistr powdr for inhalation (Advair Diskus) aluminum-mag hydroxide-simethicone 30 ml PO Q6HR PRN Dyspepsia #355 mL 08/28/22 07/05/23 Rx 200 mg-200 mg-20 mg/5 mL oral susp (Mag-Al Plus) calcium carbonate 200 mg calcium 1,000 mg (5 x 200 mg calcium (500 08/28/22 07/05/23 Rx (500 mg) chewable tablet mg)) PO Q4HR PRN Dyspepsia #60 tabs docusate sodium 100 mg capsule 100 mg PO BID #60 caps 08/28/22 07/05/23 Rx sennosides 8.6 mg tablet (senna) 17.2 mg (2 x 8.6 mg) PO BEDTIME 08/28/22 07/05/23 Rx #60 tabs fentanyl 12 mcg/hr transdermal 12 mcg transdermal SEEINSTR 10/13/22 07/05/23 History patch warfarin 1 mg tablet 1 mg PO DAILY 10/13/22 07/05/23 History magnesium oxide 400 mg PO BID 04/08/23 07/05/23 History metoprolol succinate 25 mg 12.5 mg PO BID 04/08/23 07/05/23 History tablet,extended release 24 hr torsemide 20 mg tablet 20 mg PO BID 04/08/23 07/05/23 History acetaminophen 325 mg tablet 650 mg PO Q6H PRN Pain, Mild 06/19/23 07/05/23 History acyclovir 5 % topical ointment 1 applic topical Q4-5H PRN Rash 06/19/23 07/05/23 History amiodarone 200 mg tablet 200 mg PO DAILY 06/19/23 07/05/23 History clotrimazole 10 mg aneesh 10 mg PO 5XD 06/19/23 07/05/23 History diclofenac sodium 1 % topical gel 4 g topical QID PRN JOINT PAIN 06/19/23 07/05/23 History fluticasone propionate 50 1 spray intranasal BID 06/19/23 07/05/23 History mcg/actuation nasal spray,suspension ipratropium 0.5 mg-albuterol 3 mg 3 ml inhalation BID 06/19/23 07/05/23 History (2.5 mg base)/3 mL nebulization soln miconazole nitrate 2 % topical 1 applic topical QID PRN Rash 06/19/23 07/05/23 History powder naloxone 4 mg/actuation nasal spray 1 spray intranasal NOW PRN OVERDOSE 06/19/23 07/05/23 History ondansetron HCl 4 mg tablet 4 mg PO Q8H PRN Nausea And Vomiting 06/19/23 07/05/23 History oxymetazoline 0.05 % nasal drops 1 drp intranasal BID 06/19/23 07/05/23 History potassium chloride 20 mEq/15 mL 10 meq PO BIDWM 06/19/23 07/05/23 History oral liquid Allergies Allergy/AdvReac Type Severity Reaction Status Date / Time piperacillin [From Zosyn] Allergy Severe Rash Verified 04/08/23 17:46 tazobactam [From Zosyn] Allergy Severe Rash Verified 04/08/23 17:46 hydroxychloroquine Allergy Unknown Verified 04/08/23 13:14 [HYDROXYCHLOROQUINE] Sulfa (Sulfonamide Allergy Verified 06/19/23 17:00 Antibiotics) cefepime AdvReac Intermediate pruritis Verified 04/08/23 13:14 promethazine [From Phenergan] AdvReac Agitated Verified 04/08/23 13:14 Review of Systems Review of Systems Narrative: All other systems reviewed with the patient and are negative unless otherwise stated. Exam Vital Signs (past 8 hours): - 07/05/23 11:30 07/05/23 11:30 07/05/23 11:45 Temperature Pulse Rate 69 66 Respiratory Rate 23 34 H Blood Pressure 142/62 H Pulse Oximetry 91 90 L Oxygen Delivery Method Nasal Cannula Nasal Cannula Oxygen Flow Rate 3 3 07/05/23 12:00 07/05/23 12:15 07/05/23 12:16 Temperature Pulse Rate 65 65 Respiratory Rate 21 26 H Blood Pressure 118/60 Pulse Oximetry 95 95 Oxygen Delivery Method Nasal Cannula Oxygen Flow Rate 3 07/05/23 12:16 07/05/23 12:30 07/05/23 12:31 Temperature Pulse Rate 66 65 65 Respiratory Rate 26 H 21 21 Blood Pressure Pulse Oximetry 96 96 96 Oxygen Delivery Method Oxygen Flow Rate 07/05/23 12:31 07/05/23 12:45 07/05/23 13:00 Temperature Pulse Rate 64 66 Respiratory Rate 18 22 Blood Pressure 133/58 L Pulse Oximetry 96 96 Oxygen Delivery Method Oxygen Flow Rate 07/05/23 13:01 07/05/23 13:01 07/05/23 13:15 Temperature Pulse Rate 66 65 Respiratory Rate 22 24 Blood Pressure 128/56 L Pulse Oximetry 95 97 Oxygen Delivery Method Oxygen Flow Rate 07/05/23 13:30 07/05/23 13:30 07/05/23 13:45 Temperature Pulse Rate 65 66 Respiratory Rate 24 26 H Blood Pressure 117/57 L Pulse Oximetry 95 93 Oxygen Delivery Method Oxygen Flow Rate 07/05/23 14:00 07/05/23 14:00 07/05/23 14:15 Temperature Pulse Rate 69 66 Respiratory Rate 29 H 23 Blood Pressure 108/78 Pulse Oximetry 92 96 Oxygen Delivery Method Oxygen Flow Rate 07/05/23 14:30 07/05/23 14:31 07/05/23 14:31 Temperature Pulse Rate 66 66 Respiratory Rate 29 H 21 Blood Pressure 122/61 Pulse Oximetry 94 94 Oxygen Delivery Method Oxygen Flow Rate 07/05/23 14:45 07/05/23 15:00 07/05/23 15:00 Temperature Pulse Rate 66 66 Respiratory Rate 26 H 22 Blood Pressure 133/61 Pulse Oximetry 94 Oxygen Delivery Method Oxygen Flow Rate 07/05/23 15:15 07/05/23 15:30 07/05/23 15:30 Temperature Pulse Rate 64 65 Respiratory Rate 21 25 H Blood Pressure 122/60 Pulse Oximetry 95 96 Oxygen Delivery Method Oxygen Flow Rate 07/05/23 15:45 07/05/23 16:00 07/05/23 16:01 Temperature Pulse Rate 66 65 64 Respiratory Rate 29 H 32 H 33 H Blood Pressure Pulse Oximetry 93 93 93 Oxygen Delivery Method Oxygen Flow Rate 07/05/23 16:01 07/05/23 16:15 07/05/23 16:30 Temperature Pulse Rate 65 64 Respiratory Rate 29 H 29 H Blood Pressure 138/65 Pulse Oximetry 93 94 Oxygen Delivery Method Oxygen Flow Rate 07/05/23 16:31 07/05/23 16:31 07/05/23 16:45 Temperature Pulse Rate 64 65 Respiratory Rate 34 H 24 Blood Pressure 162/73 H Pulse Oximetry 93 93 Oxygen Delivery Method Oxygen Flow Rate 07/05/23 17:00 07/05/23 17:15 07/05/23 17:30 Temperature Pulse Rate 67 66 71 Respiratory Rate 37 H 23 23 Blood Pressure Pulse Oximetry 93 94 93 Oxygen Delivery Method Nasal Cannula Oxygen Flow Rate 3 07/05/23 17:31 07/05/23 17:31 07/05/23 17:45 Temperature Pulse Rate 72 73 Respiratory Rate Blood Pressure 122/84 Pulse Oximetry 92 91 Oxygen Delivery Method Oxygen Flow Rate 07/05/23 18:00 07/05/23 18:01 07/05/23 18:01 Temperature 100.5 F H Pulse Rate 71 71 Respiratory Rate Blood Pressure 140/86 Pulse Oximetry 96 96 Oxygen Delivery Method Oxygen Flow Rate 07/05/23 18:30 07/05/23 18:39 Temperature 97.4 F L Pulse Rate 74 Respiratory Rate 18 Blood Pressure 135/58 L Pulse Oximetry 92 Oxygen Delivery Method Nasal Cannula Oxygen Flow Rate 3.5 Oxygen Delivery Method Nasal Cannula Oxygen Flow Rate 3.5 Narrative Exam Narrative: GEN: no acute distress, somnolent, on supplemental oxygen HEENT: moist mucous membranes, PERRL NECK: trachea midline, no JVD CV: regular rate and rhythm, no murmurs PULM: crackles bilaterally ABD: soft, nontender, nondistended, no organomegaly EXT: warm and well perfused with no edema NEURO: no focal deficits Objective Labs 07/06/23 05:12 07/06/23 05:12 Labs: Laboratory Results - last 24 hr 07/05/23 07/05/23 07/05/23 10:07 10:20 11:50 WBC 8.5 RBC 3.93 L Hgb 11.2 L Hct 34.0 L MCV 86.4 MCH 28.5 MCHC 32.9 RDW 19.6 H Plt Count 403 H Neut % (Auto) 77.8 H Lymph % (Auto) 9.7 L Saunders % (Auto) 12.0 Eos % (Auto) 0.0 L Baso % (Auto) 0.5 Neut # (Auto) 6700 Lymph # (Auto) 800 L Saunders # (Auto) 1000 H Eos # (Auto) 0 Baso # (Auto) 0 PT 27.3 H INR 2.4 H APTT 46 H Sodium 135 L Potassium 3.9 Chloride 96 L Carbon Dioxide 33 H BUN 29 H Creatinine 1.19 H Estimated GFR 48 L BUN/Creatinine Ratio 24.4 H Glucose 193 H Lactate 2.3 H Calcium 9.2 Magnesium 1.8 Total Bilirubin 0.5 AST 21 ALT 16 Alkaline Phosphatase 89 Troponin I 0.012 NT-Pro-B Natriuret Pep 7980 H Total Protein 7.9 Albumin 3.6 Globulin 4.3 H Albumin/Globulin Ratio 0.8 L Lipase 51 Procalcitonin 0.06 Urine Color Yellow Urine Appearance Clear Urine pH 5.5 Ur Specific [place] <=1.005 Urine Protein Negative Urine Glucose (UA) Negative Urine Ketones Negative Urine Occult Blood Trace-intact Urine Nitrate Negative Urine Bilirubin Negative Urine Urobilinogen 0.2 Ur Leukocyte Esterase 2+ H Urine RBC 0-1/hpf Urine WBC 30-100/hpf H Ur Squamous Epith Cells 0-1 /hpf Urine Bacteria Moderate (10-30) H Ur Culture Indicated? Specimen cultured Vol Urine Centrifuged 10ml (spun) Chlamy pneumoniae PCR Not detected Adenovirus (PCR) Not detected B.parapertussis DNA PCR Not detected Coronavirus OC43 (PCR) Not detected Coronavirus HKU1 (PCR) Not detected Coronavirus 229E (PCR) Not detected SARS-CoV-2 (PCR) Not detected Coronavirus NL63 (PCR) Not detected Human Metapneumovir PCR Not detected Influenza Type A (PCR) Not detected Influenza Type B (PCR) Not detected M. pneumoniae (PCR) Not detected Parainfluenza 1 (PCR) Not detected Parainfluenza 2 (PCR) Not detected Parainfluenza 3 (PCR) Not detected Parainfluenza 4 (PCR) Not detected RSV (PCR) Not detected Entero/Rhino (PCR) Not detected 07/05/23 12:25 WBC RBC Hgb Hct MCV MCH MCHC RDW Plt Count Neut % (Auto) Lymph % (Auto) Saunders % (Auto) Eos % (Auto) Baso % (Auto) Neut # (Auto) Lymph # (Auto) Saunders # (Auto) Eos # (Auto) Baso # (Auto) PT INR APTT Sodium Potassium Chloride Carbon Dioxide BUN Creatinine Estimated GFR BUN/Creatinine Ratio Glucose Lactate 1.5 Calcium Magnesium Total Bilirubin AST ALT Alkaline Phosphatase Troponin I NT-Pro-B Natriuret Pep Total Protein Albumin Globulin Albumin/Globulin Ratio Lipase Procalcitonin Urine Color Urine Appearance Urine pH Ur Specific [place] Urine Protein Urine Glucose (UA) Urine Ketones Urine Occult Blood Urine Nitrate Urine Bilirubin Urine Urobilinogen Ur Leukocyte Esterase Urine RBC Urine WBC Ur Squamous Epith Cells Urine Bacteria Ur Culture Indicated? Vol Urine Centrifuged Chlamy pneumoniae PCR Adenovirus (PCR) B.parapertussis DNA PCR Coronavirus OC43 (PCR) Coronavirus HKU1 (PCR) Coronavirus 229E (PCR) SARS-CoV-2 (PCR) Coronavirus NL63 (PCR) Human Metapneumovir PCR Influenza Type A (PCR) Influenza Type B (PCR) M. pneumoniae (PCR) Parainfluenza 1 (PCR) Parainfluenza 2 (PCR) Parainfluenza 3 (PCR) Parainfluenza 4 (PCR) RSV (PCR) Entero/Rhino (PCR) Assessment & Plan Assessment & Plan narrative: # UTI, complicated by acute metabolic encephalopathy -UA with pyuria, patient just completed 7 days of IV ertapenem for ESBL UTI -start ertapenem 1g daily -should speak with ID about recurrence and possible need for longer course once urine culture results -f/up urine culture # HFpEF with possible exacerbation vs PNA -IV lasix given due to pulm edema on CXR -continue torsemide 20mg BID -ertapenem as above for possible PNA # chronic hypoxic respiratory failure in setting of chronic asthma and bronchiectasis -on 4-5L NC at home, currently on 3.5L -followed outpatient by pulmonology at [facility] -continue home zyrtec and mucinex -duonebs PRN # hypomagnesemia -continue home po mag supplement # history of PE and A-fib -has IVC filter due to recent hematoma while on anticoag, then restarted warfarin -warfarin per pharm -continue amiodarone po # DM2 -low dose SSI -continue lantus 15 units daily -A1c in June 2023 was 7.1% # RLS -continue home mirapex # chronic pain -continue fentanyl patch 37mcg daily plus oxy 15mg q6h PRN -continue tizanidine PRN # neuropathy -continue cymbalta, nortriptyline # hypothryoidism -continue synthroid # HLD -continue statin # GERD -continue PPI Code status is Full code. COVID negative. DVT prophylaxis with warfarin plus SCD's. Proxy is Harjeet. Case discussed with ED physician/APC and patient will be admitted to the hospitalist service for further workup and management. This patient will be admitted as inpatient and will require greater than 2 midnights of hospital time to treat ESBL UTI and encephalopathy. Quality VTE Deep Vein Thrombosis/Pulmonary Embolism Present on Admission: No
[2023-07-05] MEDS: ATORVASTATIN 20 MG TABLET 40 MG PO (20:37)
[2023-07-05] MEDS: SENNOSIDES 8.6 MG TABLET 17.2 MG PO (20:37)
[2023-07-05] MEDS: DOCUSATE 100 MG CAPSULE PO (20:38)
[2023-07-05] MEDS: guaiFENesin ER 600 MG TAB 1200 MG PO (20:38)
[2023-07-05] MEDS: PRAMIPEXOLE 0.25 MG TABLET 0.5 MG PO (20:39)
[2023-07-05] MEDS: MAGNESIUM OXIDE 400 MG TABLET PO (20:39)
[2023-07-05] MEDS: FERROUS SULFATE 325 MG TABLET PO (20:40)
[2023-07-05] MEDS: MONTELUKAST 10 MG TABLET PO (20:41)
[2023-07-05] MEDS: METOPROLOL ER 25 MG TABLET 12.5 MG PO (20:42)
[2023-07-05] MEDS: PANTOPRAZOLE DR 40 MG TABLET PO (20:42)
[2023-07-05] MEDS: FLUTICASONE 120 SPRAY/16 GM SPRAY.SUSP NASAL (20:44)
[2023-07-05] MEDS: INSULIN LISPRO 100 UNIT/ML 3ML VIAL SUBCUT (20:46)
[2023-07-06] VITALS (14 sets, daily range): BP systolic 90–134; BP diastolic 45–56; PULSE 58–79; RESP 16–20; TEMP 35.8–37.9; O2SAT 86–98
[2023-07-06 05:30] LABS: Add Manual Diff / Slide Review NO; Basophils Absolute Auto 0 /uL (0-100); Basophils Percent Auto 0.3 % (0-2); Eosinophils Absolute Auto 0 /uL (0-450); Hematocrit 27.9 % (36-46); Hemoglobin 9.3 g/dL (12.0-16.0); Lymphocytes Absolute Auto 1000 /uL (1100-4500); Lymphocytes Percent Auto 15.2 % (25-40); Mean Corpuscular HGB Conc 33.5 % (30-36); Mean Corpuscular Hemoglobin 28.5 PG (26-34); Mean Corpuscular Volume 85.3 fL (80-100); Monocytes Absolute Auto 1000 /uL (0-900); Monocytes Percent Auto 15.1 % (3-14); Neutrophils Absolute Auto 4500 /uL (1500-7000); Neutrophils Percent Auto 69.4 % (50-75); Platelet Count 325 X10^3/uL (150-400); Red Blood Cell Count 3.27 X10^6/uL (4.0-5.2); Red Cell Distribution Width 19.8 % (11.6-14.8); White Blood Cell Count 6.4 X10^3/uL (4.5-11.0)
[2023-07-06 05:38] LABS: INR 2.2 (0.9-1.3); Prothrombin Time 25.6 SECONDS (9.4-12.5)
[2023-07-06 05:42] LABS: BUN Creatinine Ratio 22.9 (6-22); Blood Urea Nitrogen 22 mg/dL (7-17); Calcium 8.4 mg/dL (8.4-10.2); Carbon Dioxide 35 mmol/L (22-32); Chloride 101 mmol/L (98-107); Estimated Glomerular Filt Rate > 60 mL/min (>60); Glucose 120 mg/dL (80-110); HEMOLYSIS < 15 (0-50); Potassium 3.5 mmol/L (3.4-5.1); Sodium 136 mmol/L (137-145)
[2023-07-06] MEDS: LEVOTHYROXINE 75 MCG TABLET PO (05:55)
--- NOTE | 2023-07-06 06:58 | DI.ECHO.S_ITS ---
[facility] +---------+ : : [address] : [place] : : : : [id number] : : : : Phone: [phone]+ Echocardiogram Report + + :Name: HOANG MURRAY Study Date: 07/06/2023 Height: 60 in : :[facility] ReadingLocation: Weight: 209 lb : : Gender: Female BSA: 1.9 m2 : :: 1950 Age: 73 yrs BP: 134/56 mmHg: :Reason For Study: POSSIBLE INFECTION, UTI : :Ordering Physician: DEBORAH, : :KEYANNA Dow Performed By: Chalino Waite : :Referring: KEYANNA CABRERA : + + Interpretation Summary There is mild concentric left ventricular hypertrophy. History of hypertrophic cardiomyopathy post alcohol septal ablation. The LVOT is small and partially obstructed by the TMVR. The peak LVOT gradient is 18 mmHg. The ejection fraction is estimated to be 60-65%. Diastolic function could not be accurately assessed due to confounding valvular disease. The left atrium is moderately dilated. The right ventricle is mildly dilated. The right ventricular systolic function is normal. There is a bioprosthetic mitral valve. The mitral valve mean gradient is 3.4 mmHg. Pulmonary artery pressures cannot be estimated because of the lack of a measurable TR jet velocity. The right atrium is moderately dilated. Based on report from outside echo dated 05/16/2023, the LVOT gradient has decreased, the mitral valve gradient has increased but function remains normal and the tricuspid regurgitation has decreased. Procedure: A two-dimensional transthoracic echocardiogram with color flow and Doppler was performed. The study quality was technically adequate. Comparison is made with the echocardiogram of 08/26/2022. The heart rate ranged between 60-76 bpm during the study. Left Ventricle: The left ventricle is normal in size. There is mild concentric left ventricular hypertrophy. History of hypertrophic cardiomyopathy post alcohol septal ablation. The LVOT is small and partially obstructed by the TMVR. The peak LVOT gradient is 18 mmHg. The ejection fraction is estimated to be 60-65%. Diastolic function could not be accurately assessed due to confounding valvular disease. Right Ventricle: The right ventricle is mildly dilated. The right ventricular systolic function is normal. Atria: The left atrium is moderately dilated. The right atrium is moderately dilated. The interatrial septum grossly appears intact with no obvious evidence for an atrial septal defect. Mitral Valve: There is a bioprosthetic mitral valve. TMVR 29 mm Edward Fahad. The mitral valve mean gradient is 3.4 mmHg. The mitral valve peak gradient is 9.6 mmHg, peak velocity is 1.6 m/s. There is no mitral regurgitation noted. Aortic Valve: The aortic valve is trileaflet. The aortic valve is mildly calcified. The peak aortic velocity is 2.56 m/sec. The aortic valve mean gradient is 15.4 mmHg. No aortic regurgitation is present. Tricuspid Valve: The tricuspid valve is normal in structure and function. There is no tricuspid stenosis. There is a trace or physiologic amount of tricuspid regurgitation. Pulmonary artery pressures cannot be estimated because of the lack of a measurable TR jet velocity. Pulmonic Valve: The pulmonic valve is not well visualized. There is no pulmonic valvular stenosis. There has been no significant change since the previous study. Great Vessels: The aortic root is normal size. The dimensions of the ascending aorta are normal. The inferior vena cava appeared normal. Pericardium/ Pleura There is no pericardial effusion. There is no pleural effusion. MMode/2D Measurements & Calculations LVIDd: 4.9 cm LVOT diam: 1.5 cm LVIDs: 2.8 cm Ao root diam: 2.9 cm FS: 43.6 % asc Aorta Diam: 3.2 cm IVSd: 1.1 cm LVPWd: 1.0 cm LV gonsalves. diameter/BSA (cm/m^2): 2.6 LV sys. diameter/BSA (cm/m^2): 1.5 LA A2 area: 23.8 cm2 RA long axis: 5.0 cm LA A4 area: 26.8 cm2 RA area: 16.3 cm2 LA length (vol): 7.2 cm RA vol: 45.2 ml LA vol: 74.9 ml RA : 23.7 ml/m2 LA vol index: 39.4 ml/m2 IVC diam: 1.8 cm RVD1 (basal): 3.9 cm RVD2 (mid): 4.2 cm TAPSE: 2.4 cm Doppler Measurements & Calculations Ao V2 max: 256.1 cm/sec LVOT Max Conner: 213.7 cm/sec Ao V2 mean: 183.6 cm/sec LV V1 max P.3 mmHg Ao max P.2 mmHg LV V1 VTI: 50.8 cm Ao mean P.4 mmHg EAGLE(I,D): 1.4 cm2 Ao V2 VTI: 61.5 cm EAGLE(V,D): 1.4 cm2 sev ratio: 0.83 EAGLE indexed to BSA (cm^2/m^2): 0.73 MV E max conner: 115.3 cm/sec PA V2 max: 120.2 cm/sec MV A max conner: 155.6 cm/sec PA V2 mean: 78.6 cm/sec MV E/A: 0.74 PA mean P.8 mmHg MV dec time: 0.36 sec PA pr(Accel): 48.2 mmHg MVA(VTI): 1.7 cm2 MV V2 mean: 88.8 cm/sec SV(LVOT): 85.7 ml MV mean P.6 mmHg MV V2 VTI: 49.5 cm Reading Physician:10:08 AM
[2023-07-06] MEDS: ALBUTEROL/IPRATROPIUM 3 ML AMPUL INH ×3 (09:09→19:08)
[2023-07-06] MEDS: BUDESONIDE 0.5 MG/2 ML NEB INH ×2 (09:09→19:08)
[2023-07-06] MEDS: AMIODARONE 200 MG TABLET PO (09:17)
[2023-07-06] MEDS: DOCUSATE 100 MG CAPSULE PO ×2 (09:18→21:01)
[2023-07-06] MEDS: LORATADINE 10 MG TABLET PO (09:18)
[2023-07-06] MEDS: MAGNESIUM OXIDE 400 MG TABLET PO ×2 (09:18→21:00)
[2023-07-06] MEDS: guaiFENesin ER 600 MG TAB 1200 MG PO ×2 (09:18→21:01)
[2023-07-06] MEDS: ERTAPENEM 1 GM in SODIUM CHLORIDE 0.9% 100 ML IV (09:18)
[2023-07-06] MEDS: FLUTICASONE 120 SPRAY/16 GM SPRAY.SUSP NASAL ×2 (09:18→21:01)
[2023-07-06] MEDS: PANTOPRAZOLE DR 40 MG TABLET PO ×2 (09:18→21:00)
[2023-07-06] MEDS: predniSONE 5 MG TABLET PO (09:18)
[2023-07-06] MEDS: DULOXETINE 30 MG CAPSULE PO (09:18)
[2023-07-06] MEDS: METOPROLOL ER 25 MG TABLET 12.5 MG PO (09:19)
[2023-07-06] MEDS: TORSEMIDE 10 MG TABLET 20 MG PO ×2 (09:38→17:15)
[2023-07-06] MEDS: INSULIN GLARGINE 100 UNIT/ML 3ML PEN 15 UNIT SUBCUT (09:44)
[2023-07-06] MEDS: cefTRIAXone 1,000 MG in SODIUM CHLORIDE 0.9% 100 ML 200 MG IV (10:26)
--- NOTE | 2023-07-06 11:00 | PM.PN.1 ---
Subjective Subjective Interval history: Patient more awake and oriented today. Urine culture with >100k GNB. O2 at 5L NC. Exam Vital Signs (past 8 hours): - 07/06/23 04:00 07/06/23 07:56 07/06/23 08:35 Temperature 98.2 F 96.5 F L Pulse Rate 64 58 L Respiratory Rate 20 Blood Pressure 123/53 L 134/56 L Pulse Oximetry 95 95 Oxygen Delivery Method Oxygen Flow Rate 6 3.5 07/06/23 09:10 Temperature Pulse Rate 77 Respiratory Rate 16 Blood Pressure Pulse Oximetry 90 L Oxygen Delivery Method Nasal Cannula Oxygen Flow Rate 3.5 Oxygen Delivery Method Nasal Cannula Oxygen Flow Rate 3.5 Narrative Exam Narrative: GEN: no acute distress, sleepy but awake, on supplemental oxygen HEENT: moist mucous membranes, PERRL NECK: trachea midline, no JVD CV: regular rate and rhythm, no murmurs PULM: crackles bilaterally ABD: soft, nontender, nondistended, no organomegaly EXT: warm and well perfused with no edema NEURO: oriented, no focal deficits Objective Labs 07/06/23 05:12 07/06/23 05:12 Labs: Laboratory Results - last 24 hr 07/05/23 07/05/23 07/05/23 10:07 10:20 11:50 WBC RBC Hgb Hct MCV MCH MCHC RDW Plt Count Neut % (Auto) Lymph % (Auto) [place] % (Auto) Eos % (Auto) Baso % (Auto) Neut # (Auto) Lymph # (Auto) [place] # (Auto) Eos # (Auto) Baso # (Auto) PT INR Sodium Potassium Chloride Carbon Dioxide BUN Creatinine Estimated GFR BUN/Creatinine Ratio Glucose Lactate Calcium Magnesium 1.8 Troponin I 0.012 NT-Pro-B Natriuret Pep 7980 H Urine Color Yellow Urine Appearance Clear Urine pH 5.5 Ur Specific [place] <=1.005 Urine Protein Negative Urine Glucose (UA) Negative Urine Ketones Negative Urine Occult Blood Trace-intact Urine Nitrate Negative Urine Bilirubin Negative Urine Urobilinogen 0.2 Ur Leukocyte Esterase 2+ H Urine RBC 0-1/hpf Urine WBC 30-100/hpf H Ur Squamous Epith Cells 0-1 /hpf Urine Bacteria Moderate (10-30) H Ur Culture Indicated? Specimen cultured Vol Urine Centrifuged 10ml (spun) Chlamy pneumoniae PCR Not detected Adenovirus (PCR) Not detected B.parapertussis DNA PCR Not detected Coronavirus OC43 (PCR) Not detected Coronavirus HKU1 (PCR) Not detected Coronavirus 229E (PCR) Not detected SARS-CoV-2 (PCR) Not detected Coronavirus NL63 (PCR) Not detected Human Metapneumovir PCR Not detected Influenza Type A (PCR) Not detected Influenza Type B (PCR) Not detected M. pneumoniae (PCR) Not detected Parainfluenza 1 (PCR) Not detected Parainfluenza 2 (PCR) Not detected Parainfluenza 3 (PCR) Not detected Parainfluenza 4 (PCR) Not detected RSV (PCR) Not detected Entero/Rhino (PCR) Not detected 07/05/23 07/06/23 12:25 05:12 WBC 6.4 RBC 3.27 L Hgb 9.3 L Hct 27.9 L MCV 85.3 MCH 28.5 MCHC 33.5 RDW 19.8 H Plt Count 325 Neut % (Auto) 69.4 Lymph % (Auto) 15.2 L [place] % (Auto) 15.1 H Eos % (Auto) 0.0 L Baso % (Auto) 0.3 Neut # (Auto) 4500 Lymph # (Auto) 1000 L [place] # (Auto) 1000 H Eos # (Auto) 0 Baso # (Auto) 0 PT 25.6 H INR 2.2 H Sodium 136 L Potassium 3.5 Chloride 101 Carbon Dioxide 35 H BUN 22 H Creatinine 0.96 Estimated GFR > 60 BUN/Creatinine Ratio 22.9 H Glucose 120 H Lactate 1.5 Calcium 8.4 Magnesium Troponin I NT-Pro-B Natriuret Pep Urine Color Urine Appearance Urine pH Ur Specific [place] Urine Protein Urine Glucose (UA) Urine Ketones Urine Occult Blood Urine Nitrate Urine Bilirubin Urine Urobilinogen Ur Leukocyte Esterase Urine RBC Urine WBC Ur Squamous Epith Cells Urine Bacteria Ur Culture Indicated? Vol Urine Centrifuged Chlamy pneumoniae PCR Adenovirus (PCR) B.parapertussis DNA PCR Coronavirus OC43 (PCR) Coronavirus HKU1 (PCR) Coronavirus 229E (PCR) SARS-CoV-2 (PCR) Coronavirus NL63 (PCR) Human Metapneumovir PCR Influenza Type A (PCR) Influenza Type B (PCR) M. pneumoniae (PCR) Parainfluenza 1 (PCR) Parainfluenza 2 (PCR) Parainfluenza 3 (PCR) Parainfluenza 4 (PCR) RSV (PCR) Entero/Rhino (PCR) [facility] Medical History Anticoagulated Pneumonia Wears glasses Eczema Osteoarthritis Bronchiectasis (~2006) Sleep apnea Asthma (~1959) Abnormal chest xray (~1979) Restless leg syndrome Migraines (~1964) Shoulder pain (~03/2018) Osteopenia Degenerative joint disease of spine (~2001) Foot pain Fibromyalgia Chronic back pain Cervical spine disease Ankle pain MRSA (methicillin resistant Staphylococcus aureus) (~2002) Anemia Hoarseness Recurrent sinusitis (~1970) Colon polyps (~2015) Hypothyroidism Diabetes mellitus, type II (~2009) Hypertension Hyperlipidemia Nail bed carcinoma Pneumonia Surgical History Anesthesia History of thumb surgery History of carpal tunnel release History of spinal fusion (~2012) History of laminectomy (~2002) History of section History of cataract removal with insertion of prosthetic lens (~2014) Family History Father Stroke Mother Hypertension Brother Cerebral aneurysm Prostate cancer Diabetes mellitus Hypertension Stroke Brother Arthritis Hyperlipidemia Hypertension Sister History of kidney cancer Hypertension Grandfather Cancer Grandmother Cancer Other Family history non-contributory Social History marital status: household members: spouse lives independently: Yes occupational status: previously employed Smoking Status: Never smoker alcohol intake: current substance use type: does not use Assessment & Plan Assessment & Plan narrative: # UTI, complicated by acute metabolic encephalopathy -UA with pyuria, patient just completed 7 days of IV ertapenem for ESBL UTI -start ertapenem 1g daily -prior to discharge plan to speak with ID if ESBL recurrence and possible need for longer course of IV ertapenem -urine culture with >100k GNB, possible ESBL # HFpEF with possible exacerbation vs PNA -IV lasix given due to pulm edema on CXR -continue torsemide 20mg BID -ertapenem as above for possible PNA # chronic hypoxic respiratory failure in setting of chronic asthma and bronchiectasis -on 4-5L NC at home, currently on 5L -followed outpatient by pulmonology at [facility] -continue home zyrtec and mucinex -duonebs PRN # hypomagnesemia -continue home po mag supplement # history of PE and A-fib -has IVC filter due to recent hematoma while on anticoag, then restarted warfarin -warfarin per pharm -continue amiodarone po # DM2 -low dose SSI -continue lantus 15 units daily -A1c in June 2023 was 7.1% # RLS -continue home mirapex # chronic pain -continue fentanyl patch 37mcg daily plus oxy 15mg q6h PRN -continue tizanidine PRN # neuropathy -continue cymbalta, nortriptyline # hypothryoidism -continue synthroid # HLD -continue statin # GERD -continue PPI Code status is Full code. COVID negative. DVT prophylaxis with warfarin plus SCD's. Proxy is Harjeet. Dispo: Home in 2 days as may need IV home abx again and line placed prior. Quality VTE Deep Vein Thrombosis/Pulmonary Embolism Present on Admission: No
[2023-07-06] MEDS: POTASSIUM CHLORIDE 20 MEQ TAB PO (12:03)
[2023-07-06] MEDS: FUROSEMIDE 20 MG/2 ML VIAL IV (12:05)
[2023-07-06] MEDS: INSULIN LISPRO 100 UNIT/ML 3ML VIAL SUBCUT ×3 (12:07→21:09)
[2023-07-06] MEDS: OXYMETAZOLINE NASAL SPRAY 30 ML 1 SPRAYS NASAL ×2 (12:11→23:58)
[2023-07-06] MEDS: ACETAMINOPHEN 325 MG TABLET 650 MG PO (15:45)
[2023-07-06] MEDS: POTASSIUM CHLORIDE 10 MEQ TAB PO (17:15)
[2023-07-06] MEDS: WARFARIN 1 MG TABLET PO (17:15)
[2023-07-06] MEDS: LACTOBACILLUS ACIDOPHILUS TABLET 1 EACH PO (17:15)
[2023-07-06] MEDS: PRAMIPEXOLE 0.25 MG TABLET 0.5 MG PO (21:00)
[2023-07-06] MEDS: MONTELUKAST 10 MG TABLET PO (21:00)
[2023-07-06] MEDS: SENNOSIDES 8.6 MG TABLET 17.2 MG PO (21:00)
[2023-07-06] MEDS: ATORVASTATIN 20 MG TABLET 40 MG PO (21:01)
[2023-07-06] MEDS: FERROUS SULFATE 325 MG TABLET PO (21:01)
[2023-07-06] MEDS: ALBUTEROL 2.5 MG/3 ML NEB (ADULT) INH (22:42)
[2023-07-07] VITALS (18 sets, daily range): BP systolic 98–129; BP diastolic 43–68; PULSE 58–73; RESP 16–158; TEMP 35.9–36.7; O2SAT 91–98
[2023-07-07] MEDS: ACETAMINOPHEN 325 MG TABLET 650 MG PO ×2 (02:34→21:00)
[2023-07-07] MEDS: LEVOTHYROXINE 75 MCG TABLET PO (05:09)
[2023-07-07 05:57] LABS: Add Manual Diff / Slide Review NO; Basophils Absolute Auto 0 /uL (0-100); Basophils Percent Auto 0.3 % (0-2); Eosinophils Absolute Auto 0 /uL (0-450); Hematocrit 26.7 % (36-46); Hemoglobin 8.9 g/dL (12.0-16.0); Lymphocytes Absolute Auto 900 /uL (1100-4500); Lymphocytes Percent Auto 13.9 % (25-40); Mean Corpuscular HGB Conc 33.2 % (30-36); Mean Corpuscular Hemoglobin 28.3 PG (26-34); Mean Corpuscular Volume 85.1 fL (80-100); Monocytes Absolute Auto 1000 /uL (0-900); Monocytes Percent Auto 15.9 % (3-14); Neutrophils Absolute Auto 4500 /uL (1500-7000); Neutrophils Percent Auto 69.9 % (50-75); Platelet Count 317 X10^3/uL (150-400); Red Blood Cell Count 3.15 X10^6/uL (4.0-5.2); Red Cell Distribution Width 19.3 % (11.6-14.8); White Blood Cell Count 6.5 X10^3/uL (4.5-11.0)
[2023-07-07 06:11] LABS: BUN Creatinine Ratio 23.3 (6-22); Blood Urea Nitrogen 21 mg/dL (7-17); Calcium 8.3 mg/dL (8.4-10.2); Carbon Dioxide 34 mmol/L (22-32); Chloride 98 mmol/L (98-107); Estimated Glomerular Filt Rate > 60 mL/min (>60); Glucose 182 mg/dL (80-110); HEMOLYSIS < 15 (0-50); Potassium 3.5 mmol/L (3.4-5.1); Sodium 134 mmol/L (137-145)
--- NOTE | 2023-07-07 08:05 | P.PN_ITS ---
Subjective Subjective Interval history: She feels weak but other not too bad. She denies really any residual confusion. No dyspnea or abdominal pain. Exam Vital Signs (past 8 hours): - 07/07/23 00:41 07/07/23 02:12 07/07/23 05:00 Temperature 96.6 F L 97.6 F Pulse Rate 64 71 Respiratory Rate 17 17 Blood Pressure 98/46 L 114/60 Pulse Oximetry 96 96 95 Oxygen Delivery Method Nasal Cannula Oxygen Flow Rate 5 5 5 07/07/23 06:00 07/07/23 07:24 Temperature 97.3 F L Pulse Rate 63 Respiratory Rate 20 Blood Pressure 129/51 L Pulse Oximetry 96 94 Oxygen Delivery Method Nasal Cannula Oxygen Flow Rate 5 5 Fraction of Inspired Oxygen 40 SaO2/FiO2 Ratio 245 Oxygen Delivery Method Nasal Cannula Oxygen Flow Rate 5 Narrative Exam Narrative: NAD, alert and oriented. Fluent speech. Lungs are clear, normal rate and effort. Heart is regular, no murmur gallop or rub. Abdomen is soft, non distended. Extremities are free of edema. Shay catheter in place. Objective Labs 07/07/23 05:51 07/07/23 05:51 Labs: Laboratory Results - last 24 hr 07/07/23 05:51 WBC 6.5 RBC 3.15 L Hgb 8.9 L Hct 26.7 L MCV 85.1 MCH 28.3 MCHC 33.2 RDW 19.3 H Plt Count 317 Neut % (Auto) 69.9 Lymph % (Auto) 13.9 L [place] % (Auto) 15.9 H Eos % (Auto) 0.0 L Baso % (Auto) 0.3 Neut # (Auto) 4500 Lymph # (Auto) 900 L [place] # (Auto) 1000 H Eos # (Auto) 0 Baso # (Auto) 0 Sodium 134 L Potassium 3.5 Chloride 98 Carbon Dioxide 34 H BUN 21 H Creatinine 0.90 Estimated GFR > 60 BUN/Creatinine Ratio 23.3 H Glucose 182 H Calcium 8.3 L PFSH Medical History Anticoagulated Pneumonia Wears glasses Eczema Osteoarthritis Bronchiectasis (~2006) Sleep apnea Asthma (~1959) Abnormal chest xray (~1979) Restless leg syndrome Migraines (~1964) Shoulder pain (~03/2018) Osteopenia Degenerative joint disease of spine (~2001) Foot pain Fibromyalgia Chronic back pain Cervical spine disease Ankle pain MRSA (methicillin resistant Staphylococcus aureus) (~2002) Anemia Hoarseness Recurrent sinusitis (~1970) Colon polyps (~2015) Hypothyroidism Diabetes mellitus, type II (~2009) Hypertension Hyperlipidemia Nail bed carcinoma Pneumonia Surgical History Anesthesia History of thumb surgery History of carpal tunnel release History of spinal fusion (~2012) History of laminectomy (~2002) History of section History of cataract removal with insertion of prosthetic lens (~2014) Family History Father Stroke Mother Hypertension Brother Cerebral aneurysm Prostate cancer Diabetes mellitus Hypertension Stroke Brother Arthritis Hyperlipidemia Hypertension Sister History of kidney cancer Hypertension Grandfather Cancer Grandmother Cancer Other Family history non-contributory Social History marital status: household members: spouse lives independently: Yes occupational status: previously employed Smoking Status: Never smoker alcohol intake: current substance use type: does not use Assessment & Plan Assessment & Plan narrative: 1. UTI, complicated by acute metabolic encephalopathy, present on admission and active. -UA with pyuria, patient just completed 7 days of IV ertapenem for ESBL UTI -start ertapenem 1g daily (discussed with Infectious Disease, we will place a PICC line and repeat a 14 day total course). -prior to discharge plan to speak with ID if ESBL recurrence and possible need for longer course of IV ertapenem -urine culture with >100k GNB, probable ESBL 2. Acute metabolic encephalopathy, present on admission and resolved. 3. Acute on chronic HFpEF , present on admission and improved. -IV lasix given due to pulm edema on CXR -continue torsemide 20mg BID -ertapenem as above for possible PNA 4. Acute on chronic hypoxic respiratory failure in setting of chronic asthma and bronchiectasis, present on admission and improving. -on 4-5L NC at home, currently on 5L -followed outpatient by pulmonology at [facility] -continue home Zyrtec and mucinex -duonebs PRN 5. Hypomagnesemia, present on admission and active. -continue home po mag supplement 6. history of PE and A-fib, present on admission and active. -has IVC filter due to recent hematoma while on anticoag, then restarted warfarin -warfarin per pharm -continue amiodarone po 7. DM2, present on admission and active. -low dose SSI -continue lantus 15 units daily -A1c in June 2023 was 7.1% 8. RLS, present on admission and active. -continue home mirapex 9. chronic pain, present on admission and active. -continue fentanyl patch 37mcg daily plus oxy 15mg q6h PRN -continue tizanidine PRN 10. neuropathy, present on admission and active. -continue cymbalta, nortriptyline 11. hypothryoidism, present on admission and active. -continue synthroid 12. HLD, present on admission and active. -continue statin 13. GERD, present on admission and active. -continue PPI Code status is Full code. COVID negative. DVT prophylaxis with warfarin plus SCD's. Proxy is Harjeet. Quality VTE Deep Vein Thrombosis/Pulmonary Embolism Present on Admission: No
[2023-07-07] MEDS: PANTOPRAZOLE DR 40 MG TABLET PO ×2 (08:23→21:00)
[2023-07-07] MEDS: DOCUSATE 100 MG CAPSULE PO ×2 (08:23→11:44)
[2023-07-07] MEDS: METOPROLOL ER 25 MG TABLET 12.5 MG PO (08:23)
[2023-07-07] MEDS: LORATADINE 10 MG TABLET PO (08:24)
[2023-07-07] MEDS: ERTAPENEM 1 GM in SODIUM CHLORIDE 0.9% 100 ML IV (08:25)
[2023-07-07] MEDS: DULOXETINE 30 MG CAPSULE PO (08:25)
[2023-07-07] MEDS: MAGNESIUM OXIDE 400 MG TABLET PO ×2 (08:25→21:00)
[2023-07-07] MEDS: INSULIN GLARGINE 100 UNIT/ML 3ML PEN 15 UNIT SUBCUT (08:29)
[2023-07-07] MEDS: INSULIN LISPRO 100 UNIT/ML 3ML VIAL SUBCUT ×2 (08:32→17:04)
--- NOTE | 2023-07-07 08:39 | CM.DANOTE ---
Initial DCP Assessment Visit Note Reviewed EMR and team rounds for pt's medical status and updates. Went to meet with pt at bedside to introduce self and role, pt was found to be sleeping, appearing comfortable with no SOB/facial grimacing noted. Spouse was not present at the time. Payor: Hernandez [facility] Adv Pt is a 73 year-old F who was just discharged from inpt here from last admission stay 06/18-06/22/23 for same issues, pneumonia, weakness, shortness of breath, sepsis secondary to UTI. She went home with 4-days home IV ABO's, however became gradually worse. Spouse noted last evening that pt was desatting into the 70's despite home O2 in place. In the ED she presented with chills, increased oxygen requirements, vomiting, fever, fatigue, and altered mental status. Chest x-ray showed fluid overload and suspected viral pneumonia. She was dx w/acute respiratory failure w/hypoxia, acute metabolic encephalopathy, and infection due to ESBL producing escherichia coli. She was started on IV ABO's, Duoneb, and lasix for fluid overload and admitted for further tx/evaluation. She will likely need a longer course of home IV ABO's once she's medically cleared for d/c. DCP will continue to follow and assist with evolving needs/recommendations for d/c. Discharge Planning/Care Management CM Discharge Assessment Start: 07/07/23 08:33 Freq: Status: Active Protocol: Document 07/07/23 08:33 DPL (Rec: 07/07/23 08:39 DPL [id number]) Discharge Planning Assessment Assigned Tech Brazer Tester MACKENZIE Ignacio Advance Directives? Yes: Advance Directive & POLST Advance Directives on File Yes History Provided By Medical Record Expected Length of Stay 2 Has Patient been admitted in last 30 Yes days? Comment Pt was last admitted from 06/18- 06/22/23, discharged home on 4- days IV ABO's, same issues Prior Living Arrangements House Household Members spouse Type of transporation used prior to Relies on Others admit Independent with ADL's Yes Is patient alert and oriented? No: altered mental status Caregiver for Another No Community Services used prior to Oxygen Therapy admission: DME Already Rented / Owned Bath Bench,Oxygen Patient/Family Preference Home with Home Health Comment Home w/HH and IV ABO's. Barriers to Discharge No Comment medically and physically fragile. return home w/spouse, who is a retired Orthopedic PA-C Discharge Plan Home Transportation Arrangement Spouse Referrals Initiated Other Additional Comment Resumption of [facility] services potentially. Confirm [facility] can accept pt if appropriate for [facility] If patient plan is home with home health No: not needed for Resumption : Has signed face to face form been completed? If patient plan is SNF: Has PASSR been Yes completed? Medicare Choice List Provided Yes Medicare choice list reviewed on [email or web address] electronic tablet with SNF/HH Preference [facility]ume [facility] Has Agency SNF been contacted Yes Whiteboard Updated in Patient Room with Yes name and ext. # of Tech Brazer Tester Review Status In Process Please Provide Date Initial DC 07/07/23 Assessment Was Performed
[2023-07-07] MEDS: POTASSIUM CHLORIDE 10 MEQ TAB PO ×2 (09:00→16:50)
[2023-07-07] MEDS: TORSEMIDE 10 MG TABLET 20 MG PO ×2 (09:06→17:05)
[2023-07-07] MEDS: predniSONE 5 MG TABLET PO (09:36)
[2023-07-07] MEDS: LACTOBACILLUS ACIDOPHILUS TABLET 1 EACH PO ×2 (09:36→16:50)
[2023-07-07] MEDS: AMIODARONE 200 MG TABLET PO (09:36)
[2023-07-07] MEDS: guaiFENesin ER 600 MG TAB 1200 MG PO ×2 (09:36→21:00)
--- NOTE | 2023-07-07 11:01 | CM.DPC ---
DCP Cont. Called [facility] and updated them on this BUILDING MAINTENANCE MECHANIC faxing them a new referral for 14-days Ertapenem IV ABO's in home following hospital d/c. Cultures are still pending to confirm, however per Dr. Cervantes, they will likely be no change. Need to confirm amount and fax script once available. Inf. Maria Isabel. will f/u tomorrow with CM re: a time that they can open. Pt can d/c once we know and have a plan to open her in the home. Cont. to follow closely.
[2023-07-07] MEDS: ALBUTEROL/IPRATROPIUM 3 ML AMPUL INH ×2 (13:23→19:23)
--- NOTE | 2023-07-07 14:50 | PC.NURSE ---
Addendum entered by Silvina Mirza R.N. 07/07/23 16:38: AC dinner CBG 251, S/S given as per orders. Call light w/in reach, bed alarm on for pt safety., Continue as per plan of care. Original Note: Pt A/O Denies discomfort/ CBG @ breackfast = 174; @ lunch= 73, given OJ. Pt has no c/o at this time SL right hand intact/patent; until D/C after Midline placed in SERGIO Resting quietly T/O day. Shay cath patent cleart yellow urine. Call light w/in reach, bed alarm on for pt safety. Continue w/plan of care.
[2023-07-07] MEDS: WARFARIN 1 MG TABLET PO (17:08)
[2023-07-07] MEDS: BUDESONIDE 0.5 MG/2 ML NEB INH (19:23)
[2023-07-07] MEDS: PRAMIPEXOLE 0.25 MG TABLET 0.5 MG PO (21:00)
[2023-07-07] MEDS: ATORVASTATIN 20 MG TABLET 40 MG PO (21:00)
[2023-07-07] MEDS: FERROUS SULFATE 325 MG TABLET PO (21:00)
[2023-07-07] MEDS: MONTELUKAST 10 MG TABLET PO (21:01)
[2023-07-07] MEDS: SENNOSIDES 8.6 MG TABLET 17.2 MG PO (21:01)
[2023-07-07] MEDS: MELATONIN 3 MG TABLET PO (21:44)
[2023-07-07] MEDS: FLUTICASONE 120 SPRAY/16 GM SPRAY.SUSP NASAL (21:50)
[2023-07-08] VITALS (15 sets, daily range): BP systolic 128–153; BP diastolic 57–75; PULSE 58–78; RESP 16–19; TEMP 36.1–36.6; O2SAT 92–98
--- NOTE | 2023-07-08 01:22 | RT ---
Pt refused Home CPAP.
[2023-07-08] MEDS: LEVOTHYROXINE 75 MCG TABLET PO (05:17)
[2023-07-08] MEDS: ALBUTEROL/IPRATROPIUM 3 ML AMPUL INH ×3 (05:30→20:24)
[2023-07-08] MEDS: BUDESONIDE 0.5 MG/2 ML NEB INH ×2 (05:38→20:24)
[2023-07-08 05:40] LABS: Add Manual Diff / Slide Review NO; Basophils Absolute Auto 0 /uL (0-100); Basophils Percent Auto 0.4 % (0-2); Eosinophils Absolute Auto 0 /uL (0-450); Hematocrit 28.7 % (36-46); Hemoglobin 9.5 g/dL (12.0-16.0); Lymphocytes Absolute Auto 1000 /uL (1100-4500); Lymphocytes Percent Auto 18.2 % (25-40); Mean Corpuscular Volume 85.1 fL (80-100); Monocytes Absolute Auto 1000 /uL (0-900); Monocytes Percent Auto 17.3 % (3-14); Neutrophils Absolute Auto 3600 /uL (1500-7000); Neutrophils Percent Auto 64.1 % (50-75); Platelet Count 372 X10^3/uL (150-400); Red Blood Cell Count 3.38 X10^6/uL (4.0-5.2); Red Cell Distribution Width 18.8 % (11.6-14.8); White Blood Cell Count 5.6 X10^3/uL (4.5-11.0)
[2023-07-08 05:48] LABS: INR 2.1 (0.9-1.3); Prothrombin Time 24.8 SECONDS (9.4-12.5)
[2023-07-08 05:53] LABS: Blood Urea Nitrogen 18 mg/dL (7-17); Calcium 8.4 mg/dL (8.4-10.2); Carbon Dioxide 34 mmol/L (22-32); Chloride 100 mmol/L (98-107); Estimated Glomerular Filt Rate > 60 mL/min (>60); Glucose 152 mg/dL (80-110); HEMOLYSIS < 15 (0-50); Potassium 3.5 mmol/L (3.4-5.1); Sodium 136 mmol/L (137-145)
--- NOTE | 2023-07-08 07:35 | PM.PN.1 ---
Subjective Subjective Interval history: She is doing well today, more energy. No nausea. She denies any pain. Surprisingly, her culture yesterday of the urine indicated Pseudomonas which was resistant to ertapenem. Discussed with Dr. Whalen, infectious Disease. The patient has a history of adverse effects from cefepime with delirium and hallucinations. The patient was started on ceftazidime yesterday q.[address] Whalen had contacted [facility] yesterday to begin to arrange for home antibiotics. Her 's is in the room administering her subcutaneous IVIG treatment. Exam Vital Signs (past 8 hours): - 07/08/23 03:00 07/08/23 05:30 07/08/23 05:38 Temperature Pulse Rate 58 L 58 L Respiratory Rate 16 16 Blood Pressure Pulse Oximetry 95 94 98 Oxygen Delivery Method Nasal Cannula Nasal Cannula Nasal Cannula Oxygen Flow Rate 4 3.5 3.5 07/08/23 06:28 Temperature 97.2 F L Pulse Rate 69 Respiratory Rate 17 Blood Pressure 137/65 Pulse Oximetry 93 Oxygen Delivery Method Oxygen Flow Rate 4 Fraction of Inspired Oxygen 36 SaO2/FiO2 Ratio 263 Oxygen Delivery Method Nasal Cannula Oxygen Flow Rate 4 Narrative Exam Narrative: NAD, alert and oriented. Fluent speech. Lungs are clear, normal rate and effort. Heart is regular, no murmur gallop or rub. Abdomen is soft, non distended. Extremities are free of edema. Objective Labs 07/08/23 05:23 07/08/23 05:23 Labs: Laboratory Results - last 24 hr 07/08/23 05:23 WBC 5.6 RBC 3.38 L Hgb 9.5 L Hct 28.7 L MCV 85.1 MCH 28.0 MCHC 33.0 RDW 18.8 H Plt Count 372 Neut % (Auto) 64.1 Lymph % (Auto) 18.2 L [place] % (Auto) 17.3 H Eos % (Auto) 0.0 L Baso % (Auto) 0.4 Neut # (Auto) 3600 Lymph # (Auto) 1000 L [place] # (Auto) 1000 H Eos # (Auto) 0 Baso # (Auto) 0 PT 24.8 H INR 2.1 H Sodium 136 L Potassium 3.5 Chloride 100 Carbon Dioxide 34 H BUN 18 H Creatinine 0.82 Estimated GFR > 60 BUN/Creatinine Ratio 22.0 Glucose 152 H Calcium 8.4 PFSH Medical History Anticoagulated Pneumonia Wears glasses Eczema Osteoarthritis Bronchiectasis (~2006) Sleep apnea Asthma (~1959) Abnormal chest xray (~1979) Restless leg syndrome Migraines (~1965) Shoulder pain (~03/2018) Osteopenia Degenerative joint disease of spine (~2001) Foot pain Fibromyalgia Chronic back pain Cervical spine disease Ankle pain MRSA (methicillin resistant Staphylococcus aureus) (~2002) Anemia Hoarseness Recurrent sinusitis (~1970) Colon polyps (~2015) Hypothyroidism Diabetes mellitus, type II (~2009) Hypertension Hyperlipidemia Nail bed carcinoma Pneumonia Surgical History Anesthesia History of thumb surgery History of carpal tunnel release History of spinal fusion (~2012) History of laminectomy (~2002) History of section History of cataract removal with insertion of prosthetic lens (~2014) Family History Father Stroke Mother Hypertension Brother Cerebral aneurysm Prostate cancer Diabetes mellitus Hypertension Stroke Brother Arthritis Hyperlipidemia Hypertension Sister History of kidney cancer Hypertension Grandfather Cancer Grandmother Cancer Other Family history non-contributory Social History marital status: household members: spouse lives independently: Yes occupational status: previously employed Smoking Status: Never smoker alcohol intake: current substance use type: does not use Assessment & Plan Assessment & Plan narrative: 1. UTI, present on admission and active. -UA with pyuria, patient just completed 6 days of IV ertapenem for ESBL UTI -started ertapenem 1g daily (discussed with Infectious Disease, we will place a PICC line and repeat a 14 day total course). -cultures actually revealed Pseudomonas resistant to ertapenem on July 06, sensitive to ceftazidime. Discussed with Infectious Disease. Poor tolerance of cefepime, started ceftazidime. -urine culture with >100k Pseudomonas sensitive to ceftazidime. -Dr Whalen is arranging home IV antibiotics with a plan to be discharged July 08 after the 1st 2 doses of the day. [facility] we will continue to work on preparations. Of note, her has a cardiac ablation Sunday. 2. Acute metabolic encephalopathy, present on admission and resolved. 3. Acute on chronic HFpEF , present on admission and improved. -IV lasix given due to pulm edema on CXR -continue torsemide 20mg BID 4. Acute on chronic hypoxic respiratory failure in setting of chronic asthma and bronchiectasis, present on admission and improving. -on 4-5L NC at home, currently on 5L -duonebs PRN 5. Hypomagnesemia, present on admission and active. -continue home po mag supplement 6. history of PE and A-fib, present on admission and active. -has IVC filter due to recent hematoma while on anticoag, then restarted warfarin -warfarin per pharmacy -continue amiodarone po 7. DM2, present on admission and active. -low dose SSI -continue lantus 15 units daily -A1c in June 2023 was 7.1% 8. RLS, present on admission and active. -continue home mirapex 9. chronic pain, present on admission and active. -continue fentanyl patch 37mcg daily plus oxy 15mg q6h PRN -continue tizanidine PRN 10. neuropathy, present on admission and active. -continue cymbalta, nortriptyline 11. hypothryoidism, present on admission and active. -continue synthroid 12. HLD, present on admission and active. -continue statin 13. GERD, present on admission and active. -continue PPI Code status is Full code. COVID negative. DVT prophylaxis with warfarin plus SCD's. Proxy is Harjeet. Dispo: Estimated date of discharge is July 08 in the afternoon after the 2nd dose of ceftazidime. This is continued on home infusion [facility] being prepared to continue IV antibiotics at home. She did have a PICC placed on July 05. Quality VTE Deep Vein Thrombosis/Pulmonary Embolism Present on Admission: No
[2023-07-08] MEDS: PANTOPRAZOLE DR 40 MG TABLET PO ×2 (08:21→20:27)
[2023-07-08] MEDS: INSULIN LISPRO 100 UNIT/ML 3ML VIAL SUBCUT ×4 (08:37→20:27)
[2023-07-08] MEDS: INSULIN GLARGINE 100 UNIT/ML 3ML PEN 15 UNIT SUBCUT (08:38)
[2023-07-08] MEDS: AMIODARONE 200 MG TABLET PO (08:56)
[2023-07-08] MEDS: LACTOBACILLUS ACIDOPHILUS TABLET 1 EACH PO ×2 (08:56→17:25)
[2023-07-08] MEDS: DULOXETINE 30 MG CAPSULE PO (08:58)
[2023-07-08] MEDS: guaiFENesin ER 600 MG TAB 1200 MG PO ×2 (08:59→20:26)
[2023-07-08] MEDS: FLUTICASONE 120 SPRAY/16 GM SPRAY.SUSP NASAL ×2 (08:59→20:28)
[2023-07-08] MEDS: predniSONE 5 MG TABLET PO (09:00)
[2023-07-08] MEDS: MAGNESIUM OXIDE 400 MG TABLET PO ×2 (09:00→20:27)
[2023-07-08] MEDS: LORATADINE 10 MG TABLET PO (09:00)
[2023-07-08] MEDS: METOPROLOL ER 25 MG TABLET 12.5 MG PO ×2 (09:00→20:27)
[2023-07-08] MEDS: fentaNYL 12 MCG/PATCH TOP (10:30)
[2023-07-08] MEDS: fentaNYL 25 MCG/PATCH TOP (10:30)
[2023-07-08] MEDS: POTASSIUM CHLORIDE 10 MEQ TAB PO ×2 (10:31→17:25)
[2023-07-08] MEDS: TORSEMIDE 10 MG TABLET 20 MG PO ×2 (10:31→17:27)
[2023-07-08] MEDS: AUTO INJECTOR SUBCUT (11:36)
[2023-07-08] MEDS: [UNRECOGNIZED DRUG - OTHER] SUBCUT (11:36)
[2023-07-08] MEDS: OXYCODONE IR 5 MG TABLET 15 MG PO (12:31)
[2023-07-08] MEDS: OXYMETAZOLINE NASAL SPRAY 30 ML 1 SPRAYS NASAL (13:06)
--- NOTE | 2023-07-08 13:58 | CM.DPNOTE ---
DCP Note COURT USHER reviewed EMR. Per hospitalist in morning rounds, pt will need 14days of Ceftazime 2g Q8. Marlee to follow. COURT USHER spoke with Chiquita, pharmacist at [facility]. Reports that Denice wants us to monitor her reaction to the abx for another day and then plan to dc her home tomorrow. COURT USHER faxed midline report and current med to [facility]. Chiquita reports wanting pt to get morning and afternoon abx dose here and then the abx should be there for tomorrow evening dose. COURT USHER spoke with Mirna at [facility]. Can take pt back. COURT USHER faxed initial ref information/completed f2f. COURT USHER completed HH order. COURT USHER met with pt and spouse in room. Agreeable to plan of getting afternoon abx dose and then dc home tomorrow with [facility] and [facility] to follow. Report no additional CM needs. Plan: pt to dc home tomorrow afternoon with [facility] to follow for 12 more days of IV Ceft. and [facility] for RN/PT/OT/RECYCLING DIRECTOR. CM team will continue to follow as needed. MACKENZIE Concepcion
[2023-07-08] MEDS: WARFARIN 1 MG TABLET PO (17:47)
[2023-07-08] MEDS: ATORVASTATIN 20 MG TABLET 40 MG PO (20:26)
[2023-07-08] MEDS: FERROUS SULFATE 325 MG TABLET PO (20:26)
[2023-07-08] MEDS: PRAMIPEXOLE 0.25 MG TABLET 0.5 MG PO (20:26)
[2023-07-08] MEDS: MONTELUKAST 10 MG TABLET PO (20:27)
[2023-07-08] MEDS: MELATONIN 3 MG TABLET PO (22:08)
[2023-07-09] VITALS (11 sets, daily range): BP systolic 113–148; BP diastolic 57–87; PULSE 60–78; RESP 16–19; TEMP 36.1–37.2; O2SAT 92–97
[2023-07-09] MEDS: MELATONIN 3 MG TABLET PO (00:35)
[2023-07-09] MEDS: OXYMETAZOLINE NASAL SPRAY 30 ML 1 SPRAYS NASAL ×2 (00:35→12:09)
[2023-07-09 06:12] LABS: Add Manual Diff / Slide Review NO; Basophils Absolute Auto 0 /uL (0-100); Basophils Percent Auto 0.4 % (0-2); Eosinophils Absolute Auto 0 /uL (0-450); Hematocrit 29.7 % (36-46); Hemoglobin 9.9 g/dL (12.0-16.0); Lymphocytes Absolute Auto 900 /uL (1100-4500); Mean Corpuscular HGB Conc 33.2 % (30-36); Mean Corpuscular Hemoglobin 28.2 PG (26-34); Monocytes Absolute Auto 900 /uL (0-900); Monocytes Percent Auto 15.6 % (3-14); Neutrophils Absolute Auto 4000 /uL (1500-7000); Platelet Count 415 X10^3/uL (150-400); White Blood Cell Count 5.8 X10^3/uL (4.5-11.0)
[2023-07-09 06:16] LABS: INR 2.4 (0.9-1.3); Prothrombin Time 27.5 SECONDS (9.4-12.5)
[2023-07-09 06:21] LABS: BUN Creatinine Ratio 19.1 (6-22); Blood Urea Nitrogen 18 mg/dL (7-17); Calcium 8.6 mg/dL (8.4-10.2); Carbon Dioxide 36 mmol/L (22-32); Chloride 98 mmol/L (98-107); Estimated Glomerular Filt Rate > 60 mL/min (>60); Glucose 144 mg/dL (80-110); HEMOLYSIS < 15 (0-50); Potassium 3.2 mmol/L (3.4-5.1); Sodium 137 mmol/L (137-145)
[2023-07-09] MEDS: LEVOTHYROXINE 75 MCG TABLET PO (07:29)
[2023-07-09] MEDS: INSULIN LISPRO 100 UNIT/ML 3ML VIAL SUBCUT ×3 (08:29→17:24)
[2023-07-09] MEDS: FLUTICASONE 120 SPRAY/16 GM SPRAY.SUSP NASAL (08:29)
[2023-07-09] MEDS: INSULIN GLARGINE 100 UNIT/ML 3ML PEN 15 UNIT SUBCUT (08:31)
[2023-07-09] MEDS: DULOXETINE 30 MG CAPSULE PO (08:32)
[2023-07-09] MEDS: METOPROLOL ER 25 MG TABLET 12.5 MG PO (08:33)
[2023-07-09] MEDS: PANTOPRAZOLE DR 40 MG TABLET PO (08:33)
[2023-07-09] MEDS: AMIODARONE 200 MG TABLET PO (08:33)
[2023-07-09] MEDS: LORATADINE 10 MG TABLET PO (08:33)
[2023-07-09] MEDS: MAGNESIUM OXIDE 400 MG TABLET PO (08:33)
[2023-07-09] MEDS: POTASSIUM CHLORIDE 10 MEQ TAB PO ×2 (08:33→17:13)
[2023-07-09] MEDS: predniSONE 5 MG TABLET PO (08:33)
[2023-07-09] MEDS: LACTOBACILLUS ACIDOPHILUS TABLET 1 EACH PO ×2 (08:33→17:13)
[2023-07-09] MEDS: guaiFENesin ER 600 MG TAB 1200 MG PO (08:33)
[2023-07-09] MEDS: TORSEMIDE 10 MG TABLET 20 MG PO (08:54)
[2023-07-09] MEDS: OXYCODONE IR 5 MG TABLET 15 MG PO (08:54)
[2023-07-09] MEDS: POTASSIUM CHLORIDE 20 MEQ TAB 40 MEQ PO (12:13)
--- NOTE | 2023-07-09 12:31 | PM.DS.1 ---
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 Patient's is providing history. He states she was feeling well yesterday and went to bed fine. She then awoke with a temp fo 100.9F and some coughing. He noted she seemed a bit off so brought her to the ED. Once in the ED her UA showed pyuria and CXR pulm edema vs PNA. Patient denies CP, NV, diarrhea or vertigo. Discharge Providers Provider Date of admission: 07/05/23 16:26 Discharge Date: 07/09/23 Primary care physician: Karin Porter MD Consults: 07/08/23 11:39 Consult to Home Health Routine Comment: Reason For Exam: resume RN/PT/OT/IMPROVEMENT ANALYST Discharge provider: Wade Downing DO Summary Hospital Course Discharge Diagnosis: 1. UTI, present on admission and active. -UA with pyuria, patient just completed 6 days of IV ertapenem for ESBL UTI -started ertapenem 1g daily (discussed with Infectious Disease, we will place a PICC line and repeat a 14 day total course). -cultures actually revealed Pseudomonas resistant to ertapenem on July 06, sensitive to ceftazidime. Discussed with Infectious Disease. Poor tolerance of cefepime, started ceftazidime. -urine culture with >100k Pseudomonas sensitive to ceftazidime. -Dr Whalen is arranging home IV antibiotics with a plan to be discharged July 08 after the 1st 2 doses of the day. Home infusion solutions we will continue to work on preparations. -discharged on 10 days of ceftaz 2g q8h Of note, her has a cardiac ablation Sunday morning. 2. Acute metabolic encephalopathy, present on admission and resolved. 3. Acute on chronic HFpEF , present on admission and improved. -IV lasix given due to pulm edema on CXR -continue torsemide 20mg BID 4. Acute on chronic hypoxic respiratory failure in setting of chronic asthma and bronchiectasis, present on admission and improving. -on 4-5L NC at home, currently on 5L -duonebs PRN 5. Hypomagnesemia, present on admission and active. -continue home po mag supplement 6. history of PE and A-fib, present on admission and active. -has IVC filter due to recent hematoma while on anticoag, then restarted warfarin -warfarin per pharmacy -continue amiodarone po 7. DM2, present on admission and active. -low dose SSI -continue lantus 15 units daily -A1c in June 2023 was 7.1% 8. RLS, present on admission and active. -continue home mirapex 9. chronic pain, present on admission and active. -continue fentanyl patch 37mcg daily plus oxy 15mg q6h PRN -continue tizanidine PRN 10. neuropathy, present on admission and active. -continue cymbalta, nortriptyline 11. hypothryoidism, present on admission and active. -continue synthroid 12. HLD, present on admission and active. -continue statin 13. GERD, present on admission and active. -continue PPI Hospital Course: Admitted for AMS and fever. Found to have pseudomonas UTI and patient placed on ceftazidime per ID given drug allergies. She improved and had mildline placed for 10 days of IV ceftaz. Patient to follow-up with Dr. Whalen in clinic. Exam Vital Signs (past 8 hours): - 07/09/23 07:31 07/09/23 08:00 07/09/23 08:29 Temperature Pulse Rate 60 Respiratory Rate Blood Pressure Pulse Oximetry 97 94 Oxygen Delivery Method Nasal Cannula Nasal Cannula Oxygen Flow Rate 3.5 3.5 07/09/23 08:33 07/09/23 11:00 Temperature 99.0 F Pulse Rate 60 62 Respiratory Rate 18 Blood Pressure 148/71 H 113/87 Pulse Oximetry 92 Oxygen Delivery Method Oxygen Flow Rate 3 Fraction of Inspired Oxygen 36 SaO2/FiO2 Ratio 263 Oxygen Delivery Method Nasal Cannula Oxygen Flow Rate 3 Narrative Exam Narrative: NAD, alert and oriented. Fluent speech. Lungs are clear, normal rate and effort. Heart is regular, no murmur gallop or rub. Abdomen is soft, non distended. Extremities are free of edema. Objective Labs 07/09/23 05:09 07/09/23 05:09 Labs: Laboratory Results - last 24 hr 07/09/23 05:09 WBC 5.8 RBC 3.50 L Hgb 9.9 L Hct 29.7 L MCV 85.0 MCH 28.2 MCHC 33.2 RDW 19.0 H Plt Count 415 H Neut % (Auto) 69.0 Lymph % (Auto) 15.0 L [place] % (Auto) 15.6 H Eos % (Auto) 0.0 L Baso % (Auto) 0.4 Neut # (Auto) 4000 Lymph # (Auto) 900 L [place] # (Auto) 900 Eos # (Auto) 0 Baso # (Auto) 0 PT 27.5 H INR 2.4 H Sodium 137 Potassium 3.2 L Chloride 98 Carbon Dioxide 36 H BUN 18 H Creatinine 0.94 Estimated GFR > 60 BUN/Creatinine Ratio 19.1 Glucose 144 H Calcium 8.6 PFSH Medical History Anticoagulated Pneumonia Wears glasses Eczema Osteoarthritis Bronchiectasis (~2006) Sleep apnea Asthma (~1959) Abnormal chest xray (~1979) Restless leg syndrome Migraines (~1965) Shoulder pain (~03/2018) Osteopenia Degenerative joint disease of spine (~2001) Foot pain Fibromyalgia Chronic back pain Cervical spine disease Ankle pain MRSA (methicillin resistant Staphylococcus aureus) (~2002) Anemia Hoarseness Recurrent sinusitis (~1970) Colon polyps (~2015) Hypothyroidism Diabetes mellitus, type II (~2009) Hypertension Hyperlipidemia Nail bed carcinoma Pneumonia Surgical History Anesthesia History of thumb surgery History of carpal tunnel release History of spinal fusion (~2012) History of laminectomy (~2002) History of section History of cataract removal with insertion of prosthetic lens (~2014) Family History Father Stroke Mother Hypertension Brother Cerebral aneurysm Prostate cancer Diabetes mellitus Hypertension Stroke Brother Arthritis Hyperlipidemia Hypertension Sister History of kidney cancer Hypertension Grandfather Cancer Grandmother Cancer Other Family history non-contributory Social History marital status: household members: spouse lives independently: Yes occupational status: previously employed Smoking Status: Never smoker alcohol intake: current substance use type: does not use Discharge Plan Discharge Plan Patient Disposition: Home Provider Discharge Comment: You will now be on 10 days of IV ceftazidime for your pseudomonas UTI. Discharge orders & Medications Prescriptions: Continued polyethylene glycol 3350 [Miralax] 119 GM powder 17 gm PO DAILY PRN (Reason: Constipation) Qty: 0 (DME) insulin syringe-needle U-100 [BD Insulin Syringe Ultra-Fine] 0.5 mL 31 gauge x 5/16 syringe See Rx Instructions .ROUTE .MEDSUPPLY Qty: 100 1RF Rx Instructions: Use once a day as directed metformin 1,000 mg tablet 1,000 mg PO BID Qty: 180 0RF (DME) verio reflect glucometer Qty: 1 0RF Rx Instructions: As directed ferrous sulfate 325 mg (65 mg iron) tablet 325 mg PO BEDTIME tizanidine 4 mg capsule 4 mg PO QID PRN (Reason: Muscle Spasm) cholecalciferol (vitamin D3) 2,000 unit tablet 2,000 unit PO DAILY albuterol sulfate 90 mcg/actuation HFA aerosol inhaler 2 puff INHALATION Q4-6H PRN (Reason: Shortness Of Breath) lansoprazole [Prevacid 24Hr] 15 mg Capsule,Delayed Release(Dr/Ec) 30 mg PO BID fentanyl 25 mcg/hr patch 72 hour 1 patch transdermal Q72H PRN (Reason: pain (scale score 1-3)) Qty: 5 0RF Patient Comments: placed today at home omega-3 fatty acids Capsule 1,000 mg PO DAILY fluticasone propion-salmeterol [Advair Diskus] 500-50 mcg/dose Blister With Device 1 inh INHALATION Q12H Hizintra 15 g auto-injector 15 g SUBCUT QWEEK Rx Instructions: pt takes on Sundays. calcium carbonate 200 mg calcium (500 mg) Tablet,Chewable 1,000 mg PO Q4HR PRN (Reason: Dyspepsia) Qty: 60 0RF docusate sodium 100 mg Capsule 100 mg PO BID Qty: 60 0RF alum-mag hydroxide-simeth [Mag-Al Plus] 200-200-20 mg/5 mL Suspension 30 ml PO Q6HR PRN (Reason: Dyspepsia) Qty: 355 0RF sennosides [senna] 8.6 mg Tablet 17.2 mg PO BEDTIME Qty: 60 0RF metoprolol succinate 25 mg tablet extended release 24 hr 12.5 mg PO BID torsemide 20 mg tablet 20 mg PO BID magnesium oxide 400 mg magnesium Tablet 400 mg PO BID sodium chloride 3 % Solution For Nebulization 3 ml INHALATION BID Rx Instructions: use w/ nebulizer 2 x daily montelukast [Singulair] 10 mg Tablet 10 mg PO BEDTIME Zyrtec 10 mg Capsule 10 mg PO DAILY atorvastatin 40 mg Tablet 40 mg PO BEDTIME levothyroxine 75 mcg Tablet 75 mcg PO QAM epinephrine [EpiPen] 0.3 mg/0.3 mL Auto-Injector 0.3 mg IM Q5-15M PRN (Reason: Allergic Reaction) Rx Instructions: do not exceed 3 doses per episode tiotropium bromide [Spiriva with HandiHaler] 18 mcg Capsule, W/Inhalation Device 1 cap INHALATION DAILY Rx Instructions: puncture 1 cap using device; one dose = 2 inhalations insulin glargine 100 unit/mL solution 20 unit SUBCUT QAM insulin lispro [Humalog KwikPen Insulin] 100 unit/mL insulin pen 4 - 8 unit SUBCUT TID Rx Instructions: SLIDING SCALE USED AT HOME. pramipexole 0.5 mg tablet 0.5 mg PO BEDTIME duloxetine 30 mg Capsule,Delayed Release(Dr/Ec) 30 mg PO DAILY guaifenesin [Mucinex] 1,200 mg Tablet Extended Release 12hr 1,200 mg PO BID prednisone 5 mg tablet 5 mg PO DAILY tkjckevlld-luusqdsywhyav-kzhf 50-325-40 mg Tablet 1 tab PO Q6H PRN (Reason: Migraine Headache) oxycodone 5 mg Capsule 15 mg PO Q6H PRN (Reason: Pain (Scale Score 7-10)) Fasenra 30 mg/mL Syringe 30 mg SUBCUT Q8W fentanyl 12 mcg/hr patch 72 hour 12 mcg transdermal SEEINSTR Patient Comments: apply 1 patch to CLEAN, DRY, AND INTACT SKIN every 72 hours Rx Instructions: Q72HR in addition to 25mcg patch warfarin 1 mg tablet 1 mg PO DAILY Rx Instructions: Patient's states dose has been around 0.5mg two days a week and 1mg all other days amiodarone 200 mg tablet 200 mg PO DAILY potassium chloride 20 mEq/15 mL liquid 10 meq PO BIDWM clotrimazole 10 mg aneesh 10 mg PO 5XD acetaminophen 325 mg Tablet 650 mg PO Q6H PRN (Reason: Pain, Mild) ondansetron HCl 4 mg tablet 4 mg PO Q8H PRN (Reason: Nausea And Vomiting) miconazole nitrate 2 % Powder 1 applic TOPICAL QID PRN (Reason: Rash) acyclovir 5 % Ointment 1 applic TOPICAL Q4-5H PRN (Reason: Rash) diclofenac sodium 1 % Gel 4 g TOPICAL QID PRN (Reason: JOINT PAIN) ipratropium-albuterol 0.5 mg-3 mg(2.5 mg base)/3 mL Solution For Nebulization 3 ml INHALATION BID fluticasone propionate 50 mcg/actuation spray,suspension 1 spray intranasal BID oxymetazoline 0.05 % Drops 1 drp INTRANASAL BID naloxone 4 mg/actuation spray,non-aerosol 1 spray intranasal NOW PRN (Reason: OVERDOSE) Follow up/Referrals: Amaris Whalen MD [Non-Staff] - Karin Porter MD [Primary Care Provider] - 2 Weeks Visit Report/Discharge Packet Instructions: DI for Heart Failure, DI for Urinary Tract Infection (UTI) Stand Alone Forms: Patient Portal/API, Stroke Signs & Symptoms Discharge Data Primary Care Provider: Karin Porter Quality VTE Deep Vein Thrombosis/Pulmonary Embolism Present on Admission: No
--- NOTE | 2023-07-09 13:07 | CM.DPNOTE ---
DCP note [facility] reviewed EMR. Per hospitalist in morning rounds, cleared to dc today after 2nd abx dose. [facility] faxed updated labs/midline report/hard script to [facility]. [facility] reports they are all set and the abx will be delivered this afternoon. Likely no one needs to be home to accept abx due to pt's history working with them and pt/family's familiarity with the process. If pt/spouse has concerns about the delivery, pt was instructed to call [facility]. [facility] kindly agreed to send [facility] final referral information. F2f to be scanned into chart. [facility] met with pt in room. Pt eager to dc home. Report verbal understanding of plan. Report if have concerns about abx delivery they know how to get ahold of [facility]. Pt reports no other DCP needs at this time. Plan: pt to dc home today with spouse support/Diane /[facility] to follow. Will send signed dc sum to [facility] when available. CM team will follow as needed. MACKENZIE Concepcion
[2023-07-09] MEDS: ALBUTEROL/IPRATROPIUM 3 ML AMPUL INH ×2 (13:09→18:27)
--- NOTE | 2023-07-09 16:45 | PC.NURSE ---
Addendum entered by Ashley Coronado R.N. 07/09/23 17:53: flushed IV with NS and heparin Original Note: pt called me in her room this afternoon and notified me that her midline was leaking, no IV was infusing for several hours. I tested her midline, it was patent, no swelling, no pain. There was a very small amount of leak, it would take a 4x4 several hours to get soaked. I called [facility] and they advised that to keep monitoring it. I notified provider, no new orders.
[2023-07-09] MEDS: WARFARIN 1 MG TABLET 0.5 MG PO (17:24)
[2023-07-09] MEDS: BUDESONIDE 0.5 MG/2 ML NEB INH (18:28)
== END 2023-07-09 18:50 | disposition home health service (06) | DRG 689 ==
LOC: ED 16:26 → AC 16:27
PROVIDERS: Admitting Provider Student in an Organized Health Care Education/Training Program; Emergency Provider Emergency Medicine; Family Provider Internal Medicine Infectious Disease; PCP Internal Medicine; Referring Provider Emergency Medicine; Visit Provider Student in an Organized Health Care Education/Training Program
DX: N39.0 Urinary tract infection, site not specified (principal); G93.41 Metabolic encephalopathy; I50.33 Acute on chronic diastolic (congestive) heart failure; J96.21 Acute and chronic respiratory failure with hypoxia; Z16.29 Resistance to other single specified antibiotic; J45.909 Unspecified asthma, uncomplicated; J47.9 Bronchiectasis, uncomplicated; E83.42 Hypomagnesemia; I48.91 Unspecified atrial fibrillation; E11.40 Type 2 diabetes mellitus with diabetic neuropathy, unspecified; G25.81 Restless legs syndrome; G89.29 Other chronic pain; E03.9 Hypothyroidism, unspecified; E78.5 Hyperlipidemia, unspecified; K21.9 Gastro-esophageal reflux disease without esophagitis; B96.5 Pseudomonas (aeruginosa) (mallei) (pseudomallei) as the cause of diseases classified elsewhere; D64.9 Anemia, unspecified; G47.30 Sleep apnea, unspecified; Z79.4 Long term (current) use of insulin; Z79.01 Long term (current) use of anticoagulants; Z99.81 Dependence on supplemental oxygen; Z86.711 Personal history of pulmonary embolism; Z79.84 Long term (current) use of oral hypoglycemic drugs
CPT/HCPCS: 36415; 71045; 80048; 80053; 81001; 82962; 83605; 83690; 83735; 83880; 84145; 84484; 85025; 85610; 85730; 87040; 87077; 87086; 87186; 87633; 93005; 93306; 94640; 94760; 94762; 96365; 96367; 99285; J0696; J0713; J1335; J1642; J1815; J1940; J7613

== ENCOUNTER → 2023-07-16 18:15 | Outpatient (ROUT) | payer OTHER, SELFPAY ==
[2023-05-06 18:45] VITALS: PULSE 72; RESP 20; O2SAT 95
[2023-07-05 18:31] VITALS: BMI 34.3
[2023-07-16 19:06] LABS: Hematocrit 30.8 % (36-46); Mean Corpuscular HGB Conc 32.6 % (30-36); Mean Corpuscular Hemoglobin 28.1 PG (26-34); Mean Corpuscular Volume 86.1 fL (80-100); Platelet Count 483 X10^3/uL (150-400); Red Blood Cell Count 3.57 X10^6/uL (4.0-5.2); Red Cell Distribution Width 18.7 % (11.6-14.8); White Blood Cell Count 7.9 X10^3/uL (4.5-11.0)
[2023-07-16 19:08] LABS: Add Manual Diff / Slide Review YES
[2023-07-16 19:22] LABS: Neutrophils Absolute Manual 4187 /uL (3000-5900); Total Cells Counted 100
[2023-07-16 19:23] LABS: Anisocytosis 2+; Poikilocytosis 1+
== END ==
PROVIDERS: Family Provider Internal Medicine Infectious Disease; PCP Internal Medicine; Visit Provider Internal Medicine Infectious Disease
DX: N39.0 Urinary tract infection, site not specified (principal); D83.1 Common variable immunodeficiency with predominant immunoregulatory T-cell disorders; B96.5 Pseudomonas (aeruginosa) (mallei) (pseudomallei) as the cause of diseases classified elsewhere; D80.1 Nonfamilial hypogammaglobulinemia
CPT/HCPCS: 85007; 85025

== ENCOUNTER → 2023-08-21 15:36 | Outpatient (CLI) | payer OTHER, SELFPAY ==
[2023-05-06 18:45] VITALS: PULSE 72; RESP 20; O2SAT 95
[2023-07-05 18:31] VITALS: BMI 34.3
[2023-08-21 16:56] LABS: Appearance Urine UA CLEAR; Bilirubin Urine UA NEGATIVE (NEGATIVE); Color Urine UA YELLOW; Glucose Urine UA NEGATIVE (Negative); Ketones Urine UA NEGATIVE (NEGATIVE); Leukocyte Esterase Urine UA NEGATIVE (NEGATIVE); Nitrite Urine UA NEGATIVE (Negative); Occult Blood Urine UA NEGATIVE (Negative); Protein Urine UA NEGATIVE (Negative); Urobilinogen Urine UA 0.2 E.U./dL (0.2)
[2023-08-21 17:07] LABS: Bacteria Urine Occasional (0-1); Culture Indicated Urine Cult Not Indicated; RBC Urine 0-1/HPF (0-5/HPF); Squamous Epithelial Cell Urine 1-5 /HPF (0-5/HPF); Urine Volume 10mL (spun); WBC Urine None Seen (0-5/HPF)
== END ==
PROVIDERS: Family Provider Internal Medicine Infectious Disease; PCP Internal Medicine; Referring Provider Internal Medicine; Visit Provider Internal Medicine
DX: N39.0 Urinary tract infection, site not specified (principal); N18.9 Chronic kidney disease, unspecified
CPT/HCPCS: 81001

== ENCOUNTER → 2023-08-23 19:16 | Outpatient (ROUT) | payer OTHER, SELFPAY ==
[2023-05-06 18:45] VITALS: PULSE 72; RESP 20; O2SAT 95
[2023-07-05 18:31] VITALS: BMI 34.3
[2023-08-23 20:04] LABS: Hematocrit 32.9 % (36-46); Hemoglobin 10.7 g/dL (12.0-16.0); Mean Corpuscular HGB Conc 32.5 % (30-36); Mean Corpuscular Hemoglobin 28.4 PG (26-34); Mean Corpuscular Volume 87.3 fL (80-100); Platelet Count 348 X10^3/uL (150-400); Red Blood Cell Count 3.77 X10^6/uL (4.0-5.2); Red Cell Distribution Width 18.2 % (11.6-14.8)
[2023-08-23 20:20] LABS: Alanine Aminotransferase 16 IU/L (<35); Albumin 3.5 g/dL (3.5-5.0); Albumin Globulin Ratio 1.1 (1.0-2.8); Alkaline Phosphatase 84 U/L (38-126); Aspartate Aminotransferase 26 IU/L (14-36); BUN Creatinine Ratio 23.8 (6-22); Bilirubin Total 0.4 mg/dL (0.2-1.3); Blood Urea Nitrogen 34 mg/dL (7-17); Calcium 9.5 mg/dL (8.4-10.2); Carbon Dioxide 35 mmol/L (22-32); Chloride 94 mmol/L (98-107); Estimated Glomerular Filt Rate 38 mL/min (>60); Globulin 3.2 g/dL (1.7-4.1); Glucose 129 mg/dL (80-110); HEMOLYSIS 15 (0-50); Potassium 4.1 mmol/L (3.4-5.1); Sodium 134 mmol/L (137-145); Total Protein 6.7 g/dL (6.3-8.2)
[2023-08-23 20:38] LABS: Add Manual Diff / Slide Review YES
[2023-08-23 20:42] LABS: Neutrophils Absolute Manual 3840 /uL (3000-5900); Total Cells Counted 100
[2023-08-23 20:45] LABS: Anisocytosis 1+; Poikilocytosis 1+
== END ==
PROVIDERS: Family Provider Internal Medicine Infectious Disease; PCP Internal Medicine; Visit Provider Internal Medicine Infectious Disease
DX: A49.8 Other bacterial infections of unspecified site (principal); J18.9 Pneumonia, unspecified organism; D83.9 Common variable immunodeficiency, unspecified; D80.1 Nonfamilial hypogammaglobulinemia
CPT/HCPCS: 80053; 85007; 85025

== ENCOUNTER → 2023-10-02 13:57 | Outpatient (CLI) | payer OTHER, SELFPAY ==
[2023-05-06 18:45] VITALS: PULSE 72; RESP 20; O2SAT 95
[2023-07-05 18:31] VITALS: BMI 34.3
[2023-10-02 15:23] LABS: BUN Creatinine Ratio 22.7 (6-22); Blood Urea Nitrogen 27 mg/dL (7-17); Calcium 9.1 mg/dL (8.4-10.2); Carbon Dioxide 28 mmol/L (22-32); Chloride 102 mmol/L (98-107); Estimated Glomerular Filt Rate 48 mL/min (>60); Glucose 183 mg/dL (80-110); HEMOLYSIS < 15 (0-50); Potassium 5.2 mmol/L (3.4-5.1); Sodium 135 mmol/L (137-145)
== END ==
PROVIDERS: Family Provider Internal Medicine Infectious Disease; PCP Internal Medicine; Referring Provider Nurse Practitioner; Visit Provider Nurse Practitioner
DX: I10 Essential (primary) hypertension (principal)
CPT/HCPCS: 36415; 80048

== ENCOUNTER → 2023-10-17 12:43 | Outpatient (CLI) | payer OTHER, SELFPAY ==
[2023-05-06 18:45] VITALS: PULSE 72; RESP 20; O2SAT 95
[2023-07-05 18:31] VITALS: BMI 34.3
== END ==
LOC: LAB 12:45
PROVIDERS: Family Provider Internal Medicine Infectious Disease; PCP Internal Medicine; Referring Provider Urology; Visit Provider Urology
DX: R35.0 Frequency of micturition (principal); R53.0 Neoplastic (malignant) related fatigue
CPT/HCPCS: 87086

== ENCOUNTER → 2023-11-01 14:56 | Outpatient (CLI) | payer OTHER, SELFPAY ==
[2023-05-06 18:45] VITALS: PULSE 72; RESP 20; O2SAT 95
[2023-07-05 18:31] VITALS: BMI 34.3
--- NOTE | 2023-11-01 14:57 | DI.CT.S_ITS ---
PROCEDURE: CT CHEST WO CON INDICATIONS: LUNG NODULE TECHNIQUE: Noncontrast 5 mm thick sections acquired from the pulmonary apices to the posterior costophrenic angles. 1 mm lung window, 5 mm thick coronal and sagittal and 7 mm axial MIP reformats were then acquired. For radiation dose reduction, the following was used: automated exposure control, adjustment of mA and/or kV according to patient size. COMPARISON: [facility], CT, CT CHEST W [facility], 02/02/2023, 22:22. FINDINGS: Image quality: Diagnostic. Lower Neck: No enlarged lymph nodes. Thyroid: No thyroid nodules which require sonographic follow up, per consensus guidelines. Axillae: No enlarged lymph nodes. Chest Wall: Unremarkable. Bones: No acute fractures. No aggressive appearing lytic or blastic osseous lesions. Moderate to severe multilevel degenerative changes of the spine, worse at T10-T11. Lungs and Pleura: No pneumothorax or pleural effusions. Compared to CT chest dated February 02, 2023, no new or enlarging solid pulmonary nodule or consolidation. Previously seen patchy consolidative and ground-glass opacities in the inferior aspect of the right upper lobe are no longer seen. Left lower lobe linear atelectasis/scar. A few scattered subcentimeter calcified granulomas. Patent central airways. Heart: Heart size is enlarged. Mitral annular calcifications with interval postsurgical changes of the mitral valve. Interatrial device is new compared to prior CT. No pericardial effusion. Moderate to severe three-vessel coronary calcification. Thoracic Vessels: The aorta and pulmonary arteries demonstrate normal size. Mild calcification of the thoracic aorta. Mediastinum and Verenice: No enlarged lymph nodes. Esophagus: No wall thickening. Small hiatal hernia. Upper Abdomen: Visualized upper abdomen solid organs and bowel loops appear normal. Subcutaneous air in the anterior abdominal wall mint may be secondary to subcutaneous injection. Mild calcification of the abdominal aorta. Partially visualized IVC filter. IMPRESSION: 1. Compared to CT chest dated February 02, 2023, no new or enlarging2 pulmonary nodule or consolidation. Previously seen patchy consolidative and ground-glass opacities, notably in the right upper lobe have resolved, compatible with transient infection and/or inflammation. 2. Cardiomegaly, stable. Interval postsurgical changes of the mitral valve and intra-atrial septum. 3. Mild to moderate three-vessel coronary calcifications. Dictated by: Jose Peterson M.D. on 11/02/2023 at 16:48 Approved by: Jose Peterson M.D. on 11/02/2023 at 16:53
== END ==
PROVIDERS: Family Provider Internal Medicine Infectious Disease; PCP Internal Medicine; Referring Provider Internal Medicine Pulmonary Disease; Visit Provider Internal Medicine Pulmonary Disease
DX: R91.1 Solitary pulmonary nodule (principal); I51.7 Cardiomegaly; K44.9 Diaphragmatic hernia without obstruction or gangrene; I34.81 Nonrheumatic mitral (valve) annulus calcification; I25.10 Atherosclerotic heart disease of native coronary artery without angina pectoris
CPT/HCPCS: 71250

== ENCOUNTER 2024-01-12 01:33 | Inpatient (IN) | payer OTHER, SELFPAY ==
[2023-05-06 18:45] VITALS: PULSE 72; RESP 20; O2SAT 95
[2023-07-05 18:31] VITALS: BMI 34.3
[2024-01-12] VITALS (32 sets, daily range): BP systolic 97–135; BP diastolic 47–61; PULSE 52–73; RESP 17–31; TEMP 36.1–36.9; O2SAT 91–98; BMI 36.7
--- NOTE | 2024-01-12 01:47 | DI.RAD.S_ITS ---
PROCEDURE: XR CHEST 1V INDICATIONS: Shortness of breath TECHNIQUE: One view of the chest was acquired. COMPARISON: [facility], , XR CHEST 1V, 07/05/2023, 10:08. FINDINGS: Surgical changes and devices: Aortic valve replacement Lungs and pleura: Low lung volumes, with mild bibasilar atelectasis. No pleural effusions or pneumothorax. Mediastinum: Mediastinal contours appear normal. Heart size is normal. Aortic arch is calcified indicating atherosclerosis Bones and chest wall: No suspicious bony lesions. Overlying soft tissues appear unremarkable. IMPRESSION: Low lung volumes, with mild bibasilar atelectasis. No focal dense airspace consolidation. Findings are concordant with preliminary interpretation provided by [facility]. Approved by: Yoselin Hampton M.D.,Ph.D. on 01/12/2024 at 8:08
--- NOTE | 2024-01-12 01:54 | EKG_ITS ---
[address] [address] Test Date: 2024-01-12 Pat Name: Radha Zavaleta Department: Room: Gender: Female Doctor Of Nurse Anesthesia Practice: [facility] : 1950 Requested By: Order Number: [id number] Reading MD: Andrea Gould MD Measurements Intervals [place] Rate: 64 P: 26 RI: 144 QRS: 60 QRSD: 136 T: -21 QT: 490 QTc: 505 Interpretive Statements Normal sinus rhythm Right bundle branch block NO SIGNIFICANT CHANGE FROM PRIOR TRACING Electronically Signed On 01-14-2024 7:51:48 PDT by Andrea Gould MD
[2024-01-12 02:03] LABS: Add Manual Diff / Slide Review NO; Basophils Absolute Auto 100 /uL (0-100); Basophils Percent Auto 0.5 % (0-2); Eosinophils Absolute Auto 0 /uL (0-450); Hematocrit 37.6 % (36-46); Hemoglobin 12.6 g/dL (12.0-16.0); Lymphocytes Absolute Auto 2100 /uL (1100-4500); Lymphocytes Percent Auto 20.5 % (25-40); Mean Corpuscular HGB Conc 33.4 % (30-36); Mean Corpuscular Hemoglobin 30.3 PG (26-34); Mean Corpuscular Volume 90.7 fL (80-100); Monocytes Absolute Auto 1100 /uL (0-900); Monocytes Percent Auto 10.8 % (3-14); Neutrophils Absolute Auto 6900 /uL (1500-7000); Neutrophils Percent Auto 68.2 % (50-75); Platelet Count 332 X10^3/uL (150-400); Red Blood Cell Count 4.15 X10^6/uL (4.0-5.2); White Blood Cell Count 10.1 X10^3/uL (4.5-11.0)
[2024-01-12 02:04] LABS: INR 1.8 (0.9-1.3); Prothrombin Time 21.1 SECONDS (9.4-12.5)
[2024-01-12 02:09] LABS: Alanine Aminotransferase 26 IU/L (<35); Albumin 4.1 g/dL (3.5-5.0); Alkaline Phosphatase 71 U/L (38-126); Aspartate Aminotransferase 28 IU/L (14-36); BUN Creatinine Ratio 33.3 (6-22); Bilirubin Total 0.4 mg/dL (0.2-1.3); Blood Urea Nitrogen 46 mg/dL (7-17); Calcium 9.1 mg/dL (8.4-10.2); Carbon Dioxide 33 mmol/L (22-32); Chloride 98 mmol/L (98-107); Estimated Glomerular Filt Rate 40 mL/min (>60); Globulin 4.1 g/dL (1.7-4.1); Glucose 79 mg/dL (80-110); HEMOLYSIS 19 (0-50); Lipase 66 U/L (23-300); Potassium 3.9 mmol/L (3.4-5.1); Sodium 136 mmol/L (137-145); Total Protein 8.2 g/dL (6.3-8.2)
[2024-01-12 02:10] LABS: Creatine Kinase 83 U/L (30-135); Lactate (Lactic Acid) 2.3 mmol/L (0.7-2.1)
--- NOTE | 2024-01-12 02:13 | ED_ITS ---
HPI - General Adult General Chief complaint: Shortness of Breath/Dyspnea Stated complaint: Sob, wheezy Time Seen by Provider: 01/12/24 01:50 Source: patient and family Mode of arrival: Wheelchair History of Present Illness HPI narrative: Patient is a 73-year-old female. History of multiple chronic medical issues to include insulin-dependent diabetes, CHF on 2 L of oxygen at home at baseline, hypothyroid, anticoagulated on Coumadin, history of pulmonary embolism, has an IVC filter, history of mitral valve replacement in April this past year and mobility issues who is here for evaluation of worsening shortness of breath and wheezing over the past several days. Has had somewhat of a cough but it is nonproductive. This seems to be at baseline for her. No chest pain. No fevers. No abdominal pain. She has been taking her torsemide at home. She takes 40 mg in the morning. Also was on spironolactone. Had a recent hospital admission within the past month for CHF exacerbation and was diuresed and discharged home. She reports that she was having lower extremity edema. Feeling like her abdomen is swollen as well. Related Data Home Medications Medication Instructions Recorded Confirmed polyethylene glycol 3350 17 17 gm PO DAILY PRN Constipation ##0 06/06/17 07/05/23 gram/dose oral powder (Miralax) albuterol sulfate 90 mcg/actuation 2 puff inhalation Q4-6H PRN 05/29/19 07/05/23 aerosol inhaler Shortness Of Breath cholecalciferol (vitamin D3) 50 2,000 unit PO DAILY 05/29/19 07/05/23 mcg (2,000 unit) tablet ferrous sulfate 325 mg (65 mg 325 mg PO BEDTIME 05/29/19 07/05/23 iron) tablet tizanidine 4 mg capsule 4 mg PO QID PRN Muscle Spasm 05/29/19 07/05/23 sodium chloride 3 % for 3 ml inhalation BID 06/05/19 07/05/23 nebulization cetirizine 10 mg capsule (Zyrtec) 10 mg PO DAILY allergies 01/20/20 07/05/23 montelukast 10 mg tablet 10 mg PO BEDTIME 01/20/20 07/05/23 (Singulair) atorvastatin 40 mg tablet 40 mg PO BEDTIME 04/20/21 07/05/23 epinephrine 0.3 mg/0.3 mL 0.3 mg IM Q5-15M PRN Allergic 04/20/21 07/05/23 injection, auto-injector (EpiPen) Reaction insulin glargine 100 unit/mL 20 unit SUBCUT QAM 04/20/21 07/05/23 subcutaneous solution insulin lispro 100 unit/mL 4 - 8 unit SUBCUT TID 04/20/21 07/05/23 subcutaneous pen (Humalog KwikPen (U-100) Insulin) levothyroxine 75 mcg tablet 75 mcg PO QAM 04/20/21 07/05/23 tiotropium bromide 18 mcg capsule 1 cap inhalation DAILY 04/20/21 07/05/23 with inhalation device (Spiriva with HandiHaler) lansoprazole 15 mg capsule,delayed 30 mg PO BID 04/29/21 07/05/23 release (Prevacid 24Hr) duloxetine 30 mg capsule,delayed 30 mg PO DAILY 06/28/21 07/05/23 release guaifenesin 1,200 mg tablet, 1,200 mg PO BID 06/28/21 07/05/23 extended release 12 hr (Mucinex) pramipexole 0.5 mg tablet 0.5 mg PO BEDTIME 06/28/21 07/05/23 omega-3 fatty acids 1,000 mg PO DAILY 04/24/22 07/05/23 benralizumab 30 mg/mL subcutaneous 30 mg SUBCUT Q8W 06/03/22 07/05/23 syringe (Fasenra) yxdekuapvc-kpektwbrnenpj-rswbtggy 1 tab PO Q6H PRN Migraine Headache 06/03/22 07/05/23 50 mg-325 mg-40 mg tablet oxycodone 5 mg capsule 15 mg PO Q6H PRN Pain (Scale Score 06/03/22 07/05/23 7-10) prednisone 5 mg tablet 5 mg PO DAILY 06/03/22 07/05/23 Hizintra 15 g SUBCUT QWEEK 08/25/22 07/05/23 fluticasone 500 mcg-salmeterol 50 1 inh inhalation Q12H 08/25/22 07/05/23 mcg/dose blistr powdr for inhalation (Advair Diskus) fentanyl 12 mcg/hr transdermal 12 mcg transdermal SEEINSTR 10/13/22 07/05/23 patch warfarin 1 mg tablet 1 mg PO DAILY 10/13/22 07/05/23 magnesium oxide 400 mg PO BID 04/08/23 07/05/23 metoprolol succinate 25 mg 12.5 mg PO BID 04/08/23 07/05/23 tablet,extended release 24 hr torsemide 20 mg tablet 20 mg PO BID 04/08/23 07/05/23 acetaminophen 325 mg tablet 650 mg PO Q6H PRN Pain, Mild 06/19/23 07/05/23 acyclovir 5 % topical ointment 1 applic topical Q4-5H PRN Rash 06/19/23 07/05/23 amiodarone 200 mg tablet 200 mg PO DAILY 06/19/23 07/05/23 clotrimazole 10 mg aneesh 10 mg PO 5XD 06/19/23 07/05/23 diclofenac sodium 1 % topical gel 4 g topical QID PRN JOINT PAIN 06/19/23 07/05/23 fluticasone propionate 50 1 spray intranasal BID 06/19/23 07/05/23 mcg/actuation nasal spray,suspension ipratropium 0.5 mg-albuterol 3 mg 3 ml inhalation BID 06/19/23 07/05/23 (2.5 mg base)/3 mL nebulization soln miconazole nitrate 2 % topical 1 applic topical QID PRN Rash 06/19/23 07/05/23 powder naloxone 4 mg/actuation nasal spray 1 spray intranasal NOW PRN OVERDOSE 06/19/23 07/05/23 ondansetron HCl 4 mg tablet 4 mg PO Q8H PRN Nausea And Vomiting 06/19/23 07/05/23 oxymetazoline 0.05 % nasal drops 1 drp intranasal BID 06/19/23 07/05/23 potassium chloride 20 mEq/15 mL 10 meq PO BIDWM 06/19/23 07/05/23 oral liquid Previous Rx's Medication Instructions Recorded verio reflect glucometer #1 ea 01/28/20 insulin syringe-needle U-100 0.5 #100 ea 03/30/20 mL 31 gauge x 5/16 (BD Insulin Syringe Ultra-Fine) metformin 1,000 mg tablet 1,000 mg PO BID #180 tabs 09/03/20 fentanyl 25 mcg/hr transdermal 1 patch transdermal Q72H PRN pain 02/05/22 patch (scale score 1-3) #5 ea aluminum-mag hydroxide-simethicone 30 ml PO Q6HR PRN Dyspepsia #355 mL 08/28/22 200 mg-200 mg-20 mg/5 mL oral susp (Mag-Al Plus) calcium carbonate 1,000 mg (5 x 200 mg calcium (500 08/28/22 mg)) PO Q4HR PRN Dyspepsia #60 tabs docusate sodium 100 mg capsule 100 mg PO BID #60 caps 08/28/22 sennosides 8.6 mg tablet (senna) 17.2 mg (2 x 8.6 mg) PO BEDTIME 08/28/22 #60 tabs Allergies Allergy/AdvReac Type Severity Reaction Status Date / Time piperacillin [From Zosyn] Allergy Severe Rash Verified 04/08/23 17:46 tazobactam [From Zosyn] Allergy Severe Rash Verified 04/08/23 17:46 hydroxychloroquine Allergy Unknown Verified 04/08/23 13:14 [HYDROXYCHLOROQUINE] Sulfa (Sulfonamide Allergy Verified 06/19/23 17:00 Antibiotics) cefepime AdvReac Intermediate pruritis Verified 04/08/23 13:14 promethazine [From Phenergan] AdvReac Agitated Verified 04/08/23 13:14 Review of Systems Review of Systems ROS Unobtainable: All systems reviewed & are unremarkable except as noted in HPI and below Patient History Medical History Anticoagulated Pneumonia Wears glasses Eczema Osteoarthritis Bronchiectasis (~2006) Sleep apnea Asthma (~1959) Abnormal chest xray (~1979) Restless leg syndrome Migraines (~1965) Shoulder pain (~03/2018) Osteopenia Degenerative joint disease of spine (~2001) Foot pain Fibromyalgia Chronic back pain Cervical spine disease Ankle pain MRSA (methicillin resistant Staphylococcus aureus) (~2002) Anemia Hoarseness Recurrent sinusitis (~1970) Colon polyps (~2015) Hypothyroidism Diabetes mellitus, type II (~2009) Hypertension Hyperlipidemia Nail bed carcinoma Pneumonia Surgical History Anesthesia History of thumb surgery History of carpal tunnel release History of spinal fusion (~2012) History of laminectomy (~2002) History of section History of cataract removal with insertion of prosthetic lens (~2014) Family History Father Stroke Mother Hypertension Brother Cerebral aneurysm Prostate cancer Diabetes mellitus Hypertension Stroke Brother Arthritis Hyperlipidemia Hypertension Sister History of kidney cancer Hypertension Grandfather Cancer Grandmother Cancer Other Family history non-contributory Social History marital status: household members: spouse lives independently: Yes occupational status: previously employed Smoking Status: Never smoker alcohol intake: current substance use type: does not use Smoking Status: Never smoker alcohol intake frequency: holidays/special occasions only Substance Use Type: does not use Exam Initial Vital Signs Initial Vital Signs: Vital Signs Pulse Oximetry 95 01/12/24 01:40 Const Other: Chronically ill-appearing HENMT Head: normal to inspection and normocephalic Resp Effort & Inspection: cough and tachypneic Auscultation: clear to auscultation bilaterally Cardio Rate: regular rate GI Inspection: non-distended Skin General: no rashes or lesions noted Neuro General: patient alert, patient awake and moves all extremities Extrem General: edema Scores GCS [place] coma scale eye opening: Spontaneous [place] coma scale verbal response: Orientated [place] coma scale motor response: Obey commands [place] coma scale total score: 15 Course Orders Ordered: ED Orders 01/12/24 01:47 XR chest 1V Stat EKG-12 Lead Stat RT Consult Eval and Treat NOW 01/12/24 01:49 Complete Blood Count AUTO DIFF Stat Comprehensive Metabolic Panel Stat Lactate (Lactic Acid) Stat Lipase Stat NT-proBNP (BNP-Adult 18+) Stat Prothrombin Time INR Stat Troponin & CK Cardiac Panel Stat Discontinued Medications Furosemide 60 mg/ Sodium (Chloride) 56 mls @ 112 mls/hr IV NOW ONE Stop: 01/12/24 02:15 Last Infusion: 01/12/24 03:06 Dose: Infused Documented By: Admin: 01/12/24 02:28 Dose: 112 mls/hr Documented By: AVINASH Vital Signs Vital signs: Vital Signs - 8 hr 01/12/24 01:40 01/12/24 01:42 01/12/24 01:42 Temperature Pulse Rate 73 Respiratory Rate Blood Pressure 135/61 Pulse Oximetry 95 Oxygen Delivery Method Oxygen Flow Rate 01/12/24 01:44 01/12/24 02:00 01/12/24 02:01 Temperature 97.8 F Pulse Rate 66 63 Respiratory Rate 25 H 23 Blood Pressure 135/61 109/53 L Pulse Oximetry 93 96 Oxygen Delivery Method Nasal Cannula Oxygen Flow Rate 3 01/12/24 02:01 01/12/24 02:30 01/12/24 02:30 Temperature Pulse Rate 63 63 Respiratory Rate 31 H 18 Blood Pressure 105/59 L Pulse Oximetry 94 92 Oxygen Delivery Method Oxygen Flow Rate 01/12/24 03:00 01/12/24 03:00 01/12/24 03:30 Temperature Pulse Rate 61 63 Respiratory Rate 18 21 Blood Pressure 101/52 L Pulse Oximetry 95 93 Oxygen Delivery Method Oxygen Flow Rate 01/12/24 03:31 01/12/24 03:31 01/12/24 04:00 Temperature Pulse Rate 63 64 Respiratory Rate 23 24 Blood Pressure 113/56 L Pulse Oximetry 94 97 Oxygen Delivery Method Oxygen Flow Rate 3 01/12/24 04:00 01/12/24 04:30 01/12/24 04:31 Temperature Pulse Rate 60 60 Respiratory Rate 18 23 Blood Pressure 122/58 L Pulse Oximetry 97 98 Oxygen Delivery Method Oxygen Flow Rate 01/12/24 04:31 01/12/24 05:00 01/12/24 05:00 Temperature Pulse Rate 61 Respiratory Rate 20 Blood Pressure 99/56 L 103/57 L Pulse Oximetry 97 Oxygen Delivery Method Oxygen Flow Rate 01/12/24 05:30 01/12/24 05:30 Temperature Pulse Rate 59 L Respiratory Rate 17 Blood Pressure 114/58 L Pulse Oximetry 97 Oxygen Delivery Method Oxygen Flow Rate Medical Decision Making Medical Records Medical records reviewed: Yes I reviewed the patient's medical records. Lab Data Lab results reviewed: Yes I reviewed the patient's lab results. 01/12/24 01:49 01/12/24 01:49 Labs: Lab Results 01/12/24 01/12/24 01/12/24 Range/Units 01:49 01:49 03:56 WBC 10.1 (4.5-11.0) X10^3/uL RBC 4.15 (4.0-5.2) X10^6/uL Hgb 12.6 (12.0-16.0) g/dL Hct 37.6 (36-46) % MCV 90.7 (80-100) fL MCH 30.3 (26-34) PG MCHC 33.4 (30-36) % RDW 17.0 H (11.6-14.8) % Plt Count 332 (150-400) X10^3/uL Neut % (Auto) 68.2 (50-75) % Lymph % (Auto) 20.5 L (25-40) % [place] % (Auto) 10.8 (3-14) % Eos % (Auto) 0.0 L (2-4) % Baso % (Auto) 0.5 (0-2) % Neut # (Auto) 6900 (0016-7513) /uL Lymph # (Auto) 2100 (2859-1984) /uL [place] # (Auto) 1100 H (0-900) /uL Eos # (Auto) 0 (0-450) /uL Baso # (Auto) 100 (0-100) /uL PT 21.1 H (9.4-12.5) SECONDS INR 1.8 H (0.9-1.3) Sodium 136 L (137-145) mmol/L Potassium 3.9 (3.4-5.1) mmol/L Chloride 98 (98-107) mmol/L Carbon Dioxide 33 H (22-32) mmol/L BUN 46 H (7-17) mg/dL Creatinine 1.38 H (0.52-1.04) mg/dL Estimated GFR 40 L (>60) mL/min BUN/Creatinine Ratio 33.3 H (6-22) Glucose 79 L (80-110) mg/dL Lactate 2.3 H 2.5 H (0.7-2.1) mmol/L Calcium 9.1 (8.4-10.2) mg/dL Total Bilirubin 0.4 (0.2-1.3) mg/dL AST 28 (14-36) IU/L ALT 26 (<35) IU/L Alkaline Phosphatase 71 (38-126) U/L Total Creatine Kinase 83 (30-135) U/L Troponin I Cancelled 0.025 NT-Pro-B Natriuret Pep 2640 H (<450) pg/mL Total Protein 8.2 (6.3-8.2) g/dL Albumin 4.1 (3.5-5.0) g/dL Globulin 4.1 (1.7-4.1) g/dL Albumin/Globulin Ratio 1.0 (1.0-2.8) Lipase 66 (23-300) U/L Point of Care Testing Glucose POC 87 Point of care testing: Point of Care Testing Glucose POC 87 Imaging Data Chest x-ray: Radiologist's Impression: No acute cardiopulmonary abnormality ECG Data Attestation: I personally reviewed and interpreted this ECG as follows: Interpretation: Sinus rhythm Ventricular rate is 64 Normal axis Right bundle-branch block Nonspecific ST T wave changes MDM Narrative Medical decision making narrative: Patient is on chronic oxygen at home at 2 L but has had to increase it to 3-4 L over the past couple days. She has obvious lower extremity peripheral edema. Chest x-ray does not show signs of pneumonia. BNP is elevated. Received 60 mg of Lasix. She states this is what she received at the other facility and it seemed to work well for her although she only diuresed a couple 100 cc of urine. Initially had a discussion with the patient and about increasing her torsemide at home to 40 mg in the morning and 20 mg at night with the potential of increasing it to 40 mg twice a day versus being admitted to the hospital. Initially the plan was for her to be discharged home. Her IV was removed and in the process of getting out of the bed into the wheelchair she became acutely dyspneic. Having to increase her oxygen. Because of the change in her respiratory status we will admit to the hospital. Discussed the case with Dr. Caballero hospitalist on-call who will admit for further evaluation and treatment. Discharge Plan Departure Patient Disposition: Admitted As Inpatient Clinical Impression: Edema, peripheral, CHF (congestive heart failure), Hypoxia Admit Date/Time: 01/12/24 06:02
[2024-01-12 02:21] LABS: NT-proBNP (BNP-Adult 18+) 2640 pg/mL (<450)
[2024-01-12 02:22] LABS: Troponin I 0.025 ng/mL (0.01-0.034)
[2024-01-12] MEDS: FUROSEMIDE 60 MG in SODIUM CHLORIDE 0.9% 50 ML 112 MG IV ×3 (02:28→19:58)
[2024-01-12 03:31] LABS: Reflexed Lactate in 2 Hours Y
[2024-01-12 04:12] LABS: Lactate 2HR (Lactic Acid Rflx) 2.5 mmol/L (0.7-2.1)
--- NOTE | 2024-01-12 06:17 | P.HP_ITS ---
History of Present Illness History of Present Illness Chief complaint: Sob, wheezy Narrative: 73 year old female with past medical history of CHF, chronic respiratory failure on 2L of O2 at baseline, IDDM, hypothyroidism and PE s/p IVC filter and on Coumadin presents with complaints of shortness of breath and LEs edema. Of note, the patient was recently admitted and discharge from outside hospital within the last month for acute on chronic HF. However, over the last few days, the patient noticed increasing shortness of breath, LEs edema and a dry cough despite taking her Torsemide and Spiranolactone as instructed. Otherwise, the patient denies any recent chest pain, fever, chills, nausea, vomiting or diarrhea. In our ER, the patient was requiring 3-4L of O2. Per our ER physician, the patient has clinical sign of volume overload with significant edema in her LEs and bilateral crackles on exam. CXR however didn't shows much edema or sign of PNA. The patient was given IV Lasix 60mg x 1. Labs otherwise were relatively benign. [facility] Medical History Anticoagulated Pneumonia Wears glasses Eczema Osteoarthritis Bronchiectasis (~2006) Sleep apnea Asthma (~1959) Abnormal chest xray (~1979) Restless leg syndrome Migraines (~1964) Shoulder pain (~03/2018) Osteopenia Degenerative joint disease of spine (~2001) Foot pain Fibromyalgia Chronic back pain Cervical spine disease Ankle pain MRSA (methicillin resistant Staphylococcus aureus) (~2002) Anemia Hoarseness Recurrent sinusitis (~1970) Colon polyps (~2015) Hypothyroidism Diabetes mellitus, type II (~2009) Hypertension Hyperlipidemia Nail bed carcinoma Pneumonia Surgical History Anesthesia History of thumb surgery History of carpal tunnel release History of spinal fusion (~2012) History of laminectomy (~2002) History of section History of cataract removal with insertion of prosthetic lens (~2014) Family History Father Stroke Mother Hypertension Brother Cerebral aneurysm Prostate cancer Diabetes mellitus Hypertension Stroke Brother Arthritis Hyperlipidemia Hypertension Sister History of kidney cancer Hypertension Grandfather Cancer Grandmother Cancer Other Family history non-contributory Social History marital status: household members: spouse lives independently: Yes occupational status: previously employed Smoking Status: Never smoker alcohol intake: current substance use type: does not use Meds Home Medications and Allergies Home Medications Medication Instructions Recorded Confirmed Type polyethylene glycol 3350 17 17 gm PO DAILY PRN Constipation ##0 06/06/17 07/05/23 History gram/dose oral powder (Miralax) albuterol sulfate 90 mcg/actuation 2 puff inhalation Q4-6H PRN 05/29/19 07/05/23 History aerosol inhaler Shortness Of Breath cholecalciferol (vitamin D3) 50 2,000 unit PO DAILY 05/29/19 07/05/23 History mcg (2,000 unit) tablet ferrous sulfate 325 mg (65 mg 325 mg PO BEDTIME 05/29/19 07/05/23 History iron) tablet tizanidine 4 mg capsule 4 mg PO QID PRN Muscle Spasm 05/29/19 07/05/23 History sodium chloride 3 % for 3 ml inhalation BID 06/05/19 07/05/23 History nebulization cetirizine 10 mg capsule (Zyrtec) 10 mg PO DAILY allergies 01/20/20 07/05/23 History montelukast 10 mg tablet 10 mg PO BEDTIME 01/20/20 07/05/23 History (Singulair) verio reflect glucometer #1 ea 01/28/20 07/05/23 Rx insulin syringe-needle U-100 0.5 #100 ea 03/30/20 07/05/23 Rx mL 31 gauge x 5/16 (BD Insulin Syringe Ultra-Fine) metformin 1,000 mg tablet 1,000 mg PO BID #180 tabs 09/03/20 07/05/23 Rx atorvastatin 40 mg tablet 40 mg PO BEDTIME 04/20/21 07/05/23 History epinephrine 0.3 mg/0.3 mL 0.3 mg IM Q5-15M PRN Allergic 04/20/21 07/05/23 History injection, auto-injector (EpiPen) Reaction insulin glargine 100 unit/mL 20 unit SUBCUT QAM 04/20/21 07/05/23 History subcutaneous solution insulin lispro 100 unit/mL 4 - 8 unit SUBCUT TID 04/20/21 07/05/23 History subcutaneous pen (Humalog KwikPen (U-100) Insulin) levothyroxine 75 mcg tablet 75 mcg PO QAM 04/20/21 07/05/23 History tiotropium bromide 18 mcg capsule 1 cap inhalation DAILY 04/20/21 07/05/23 History with inhalation device (Spiriva with HandiHaler) lansoprazole 15 mg capsule,delayed 30 mg PO BID 04/29/21 07/05/23 History release (Prevacid 24Hr) duloxetine 30 mg capsule,delayed 30 mg PO DAILY 06/28/21 07/05/23 History release guaifenesin 1,200 mg tablet, 1,200 mg PO BID 06/28/21 07/05/23 History extended release 12 hr (Mucinex) pramipexole 0.5 mg tablet 0.5 mg PO BEDTIME 06/28/21 07/05/23 History fentanyl 25 mcg/hr transdermal 1 patch transdermal Q72H PRN pain 02/05/22 07/05/23 Rx patch (scale score 1-3) #5 ea omega-3 fatty acids 1,000 mg PO DAILY 04/24/22 07/05/23 History benralizumab 30 mg/mL subcutaneous 30 mg SUBCUT Q8W 06/03/22 07/05/23 History syringe (Fasenra) wbhobtjegu-rwkwwsyptyxmq-lhbzgxnn 1 tab PO Q6H PRN Migraine Headache 06/03/22 07/05/23 History 50 mg-325 mg-40 mg tablet oxycodone 5 mg capsule 15 mg PO Q6H PRN Pain (Scale Score 06/03/22 07/05/23 History 7-10) prednisone 5 mg tablet 5 mg PO DAILY 06/03/22 07/05/23 History Hizintra 15 g SUBCUT QWEEK 08/25/22 07/05/23 History fluticasone 500 mcg-salmeterol 50 1 inh inhalation Q12H 08/25/22 07/05/23 History mcg/dose blistr powdr for inhalation (Advair Diskus) aluminum-mag hydroxide-simethicone 30 ml PO Q6HR PRN Dyspepsia #355 mL 08/28/22 07/05/23 Rx 200 mg-200 mg-20 mg/5 mL oral susp (Mag-Al Plus) calcium carbonate 1,000 mg (5 x 200 mg calcium (500 08/28/22 07/05/23 Rx mg)) PO Q4HR PRN Dyspepsia #60 tabs docusate sodium 100 mg capsule 100 mg PO BID #60 caps 08/28/22 07/05/23 Rx sennosides 8.6 mg tablet (senna) 17.2 mg (2 x 8.6 mg) PO BEDTIME 08/28/22 07/05/23 Rx #60 tabs fentanyl 12 mcg/hr transdermal 12 mcg transdermal SEEINSTR 10/13/22 07/05/23 History patch warfarin 1 mg tablet 1 mg PO DAILY 10/13/22 07/05/23 History magnesium oxide 400 mg PO BID 04/08/23 07/05/23 History metoprolol succinate 25 mg 12.5 mg PO BID 04/08/23 07/05/23 History tablet,extended release 24 hr torsemide 20 mg tablet 20 mg PO BID 04/08/23 07/05/23 History acetaminophen 325 mg tablet 650 mg PO Q6H PRN Pain, Mild 06/19/23 07/05/23 History acyclovir 5 % topical ointment 1 applic topical Q4-5H PRN Rash 06/19/23 07/05/23 History amiodarone 200 mg tablet 200 mg PO DAILY 06/19/23 07/05/23 History clotrimazole 10 mg aneesh 10 mg PO 5XD 06/19/23 07/05/23 History diclofenac sodium 1 % topical gel 4 g topical QID PRN JOINT PAIN 06/19/23 07/05/23 History fluticasone propionate 50 1 spray intranasal BID 06/19/23 07/05/23 History mcg/actuation nasal spray,suspension ipratropium 0.5 mg-albuterol 3 mg 3 ml inhalation BID 06/19/23 07/05/23 History (2.5 mg base)/3 mL nebulization soln miconazole nitrate 2 % topical 1 applic topical QID PRN Rash 06/19/23 07/05/23 History powder naloxone 4 mg/actuation nasal spray 1 spray intranasal NOW PRN OVERDOSE 06/19/23 07/05/23 History ondansetron HCl 4 mg tablet 4 mg PO Q8H PRN Nausea And Vomiting 06/19/23 07/05/23 History oxymetazoline 0.05 % nasal drops 1 drp intranasal BID 06/19/23 07/05/23 History potassium chloride 20 mEq/15 mL 10 meq PO BIDWM 06/19/23 07/05/23 History oral liquid Allergies Allergy/AdvReac Type Severity Reaction Status Date / Time piperacillin [From Zosyn] Allergy Severe Rash Verified 04/08/23 17:46 tazobactam [From Zosyn] Allergy Severe Rash Verified 04/08/23 17:46 hydroxychloroquine Allergy Unknown Verified 04/08/23 13:14 [HYDROXYCHLOROQUINE] Sulfa (Sulfonamide Allergy Verified 06/19/23 17:00 Antibiotics) cefepime AdvReac Intermediate pruritis Verified 04/08/23 13:14 promethazine [From Phenergan] AdvReac Agitated Verified 04/08/23 13:14 Review of Systems Review of Systems Narrative: 12 points of ROS are negative except for what was mentioned per HPI. Exam Vital Signs (past 8 hours): - 01/12/24 01:40 01/12/24 01:42 01/12/24 01:42 Temperature Pulse Rate 73 Respiratory Rate Blood Pressure 135/61 Pulse Oximetry 95 Oxygen Delivery Method Oxygen Flow Rate 01/12/24 01:44 01/12/24 02:00 01/12/24 02:01 Temperature 97.8 F Pulse Rate 66 63 Respiratory Rate 25 H 23 Blood Pressure 135/61 109/53 L Pulse Oximetry 93 96 Oxygen Delivery Method Nasal Cannula Oxygen Flow Rate 01/12/24 02:01 01/12/24 02:30 01/12/24 02:30 Temperature Pulse Rate 63 63 Respiratory Rate 31 H 18 Blood Pressure 105/59 L Pulse Oximetry 94 92 Oxygen Delivery Method Oxygen Flow Rate 01/12/24 03:00 01/12/24 03:00 01/12/24 03:30 Temperature Pulse Rate 61 63 Respiratory Rate 18 21 Blood Pressure 101/52 L Pulse Oximetry 95 93 Oxygen Delivery Method Oxygen Flow Rate 01/12/24 03:31 01/12/24 03:31 01/12/24 04:00 Temperature Pulse Rate 63 64 Respiratory Rate 23 24 Blood Pressure 113/56 L Pulse Oximetry 94 97 Oxygen Delivery Method Oxygen Flow Rate 3 01/12/24 04:00 01/12/24 04:30 01/12/24 04:31 Temperature Pulse Rate 60 60 Respiratory Rate 18 23 Blood Pressure 122/58 L Pulse Oximetry 97 98 Oxygen Delivery Method Oxygen Flow Rate 01/12/24 04:31 01/12/24 05:00 01/12/24 05:00 Temperature Pulse Rate 61 Respiratory Rate 20 Blood Pressure 99/56 L 103/57 L Pulse Oximetry 97 Oxygen Delivery Method Oxygen Flow Rate 01/12/24 05:30 01/12/24 05:30 Temperature Pulse Rate 59 L Respiratory Rate 17 Blood Pressure 114/58 L Pulse Oximetry 97 Oxygen Delivery Method Oxygen Flow Rate Oxygen Delivery Method Nasal Cannula Oxygen Flow Rate 3 Narrative Exam Narrative: GENERAL: The patient is not in any acute distressed. Awake and alert. HEENT: Nonicteric sclerae, PERRLA, EOMI. Oropharynx clear. Moist mucous membranes. Conjunctivae appear well perfused. HEART: Regular rate and rhythm without murmurs. 3+ lower extremities edema. LUNGS: bilateral crackles otehrwise Clear to auscultation bilaterally. No wheezing, or rhonchi ABDOMEN: Soft, positive bowel sounds, nontender. SKIN: No rash, no excessive bruising, petechiae, or purpura. NEUROLOGIC: AxO x 3. Cranial nerves II-XII intact without motor/sensory deficit. Objective Labs 01/12/24 01:49 01/12/24 01:49 Labs: Laboratory Results - last 24 hr 01/12/24 01/12/24 01/12/24 01:49 01:49 03:56 WBC 10.1 RBC 4.15 Hgb 12.6 Hct 37.6 MCV 90.7 MCH 30.3 MCHC 33.4 RDW 17.0 H Plt Count 332 Neut % (Auto) 68.2 Lymph % (Auto) 20.5 L [place] % (Auto) 10.8 Eos % (Auto) 0.0 L Baso % (Auto) 0.5 Neut # (Auto) 6900 Lymph # (Auto) 2100 [place] # (Auto) 1100 H Eos # (Auto) 0 Baso # (Auto) 100 PT 21.1 H INR 1.8 H Sodium 136 L Potassium 3.9 Chloride 98 Carbon Dioxide 33 H BUN 46 H Creatinine 1.38 H Estimated GFR 40 L BUN/Creatinine Ratio 33.3 H Glucose 79 L Lactate 2.3 H 2.5 H Calcium 9.1 Total Bilirubin 0.4 AST 28 ALT 26 Alkaline Phosphatase 71 Total Creatine Kinase 83 Troponin I Cancelled 0.025 NT-Pro-B Natriuret Pep 2640 H Total Protein 8.2 Albumin 4.1 Globulin 4.1 Albumin/Globulin Ratio 1.0 Lipase 66 Assessment & Plan Assessment & Plan narrative: Acute on chronic heart failure. Admit to medical telemetry inpatient. s/p IV lasix 60mg x 1 in ER. Continue IV lasix 60mg q8hrs with daily weights and strict I/Os Hold all home diuretics for now. Acute on chronic respiratory failure with hypoxemia. likely above. Baseline o2 requiring is 2L and now patient is requiring 4L. Mild elevated lactic acid. Could be from poor perfusion secondary to CHF exacerbation and hypoxemia. Will recheck now. No sign of infection/sepsis. History of PE. INR slightly sub Thx. Note INR is 1.8. Will have pharmacy dose coumadin. IDDM. Monitor glucose and SQ insulin DVT PPx Coumadin. Code status full code Dispositon home in 2-3 days Time-Based Coding :: [TOTAL MINUTES] spent with patient and on the chart (including review of chart, obtaining history, exam, reviewing outside data, placing orders, documenting exam and treatment plan, and counseling patient) on [DATE].
--- NOTE | 2024-01-12 06:17 | PC.NURSE ---
pt was getting dressed and decided she was too sob to go home Dr Najera informed and pt admitted to the hospital
[2024-01-12] MEDS: ALBUTEROL/IPRATROPIUM 3 ML AMPUL INH ×3 (07:35→20:10)
--- NOTE | 2024-01-12 08:09 | RT ---
Cont. Pts Home regimen, pt wears home o2 @2 lpm nc Sao2 at home low 90's per . No distress noted at this time.
--- NOTE | 2024-01-12 08:28 | PC.NURSE ---
Report given to [facility] care worker. Lab in the room for repeat labs and pt is finishing breakfast.
[2024-01-12 08:48] LABS: Add Manual Diff / Slide Review NO; Basophils Absolute Auto 100 /uL (0-100); Basophils Percent Auto 0.6 % (0-2); Eosinophils Absolute Auto 0 /uL (0-450); Eosinophils Percent Auto 0.1 % (2-4); Hematocrit 34.5 % (36-46); Hemoglobin 11.4 g/dL (12.0-16.0); Lymphocytes Absolute Auto 1600 /uL (1100-4500); Lymphocytes Percent Auto 14.7 % (25-40); Mean Corpuscular HGB Conc 33.1 % (30-36); Mean Corpuscular Hemoglobin 30.3 PG (26-34); Mean Corpuscular Volume 91.8 fL (80-100); Monocytes Absolute Auto 1100 /uL (0-900); Monocytes Percent Auto 9.9 % (3-14); Neutrophils Absolute Auto 8000 /uL (1500-7000); Neutrophils Percent Auto 74.7 % (50-75); Platelet Count 268 X10^3/uL (150-400); Red Blood Cell Count 3.76 X10^6/uL (4.0-5.2); Red Cell Distribution Width 16.6 % (11.6-14.8); White Blood Cell Count 10.7 X10^3/uL (4.5-11.0)
[2024-01-12 08:50] LABS: BUN Creatinine Ratio 30.9 (6-22); Blood Urea Nitrogen 42 mg/dL (7-17); Calcium 8.6 mg/dL (8.4-10.2); Carbon Dioxide 32 mmol/L (22-32); Chloride 98 mmol/L (98-107); Estimated Glomerular Filt Rate 41 mL/min (>60); Glucose 157 mg/dL (80-110); HEMOLYSIS < 15 (0-50); Potassium 3.7 mmol/L (3.4-5.1); Sodium 137 mmol/L (137-145)
--- NOTE | 2024-01-12 09:16 | P.HP_ITS ---
History of Present Illness History of Present Illness Date Patient Seen: 01/12/24 Time Patient Seen: 09:20 Date of Onset of Symptoms: 01/12/24 Chief complaint: Sob, wheezy Narrative: 73 year old female with past medical history of CHF, chronic respiratory failure on 2L of O2 at baseline, IDDM, hypothyroidism and PE s/p IVC filter and on Coumadin presents with complaints of shortness of breath and LEs edema. Of note, the patient was recently admitted and discharge from outside hospital within the last month for acute on chronic HF. However, over the last few days, the patient noticed increasing shortness of breath, LEs edema and a dry cough despite taking her Torsemide and Spiranolactone as instructed. Otherwise, the patient denies any recent chest pain, fever, chills, nausea, vomiting or diarrhea. In our ER, the patient was requiring 3-4L of O2. Per our ER physician, the patient has clinical sign of volume overload with significant edema in her LEs and bilateral crackles on exam. CXR however didn't shows much edema or sign of PNA. The patient was given IV Lasix 60mg x 1. Labs otherwise were relatively benign. Interval history: The patient reports that she has had increasing cough, wheezing and sputum production in the past few weeks. She has cultured Pseudomonas aeruginosa. She had an echocardiogram 12/23/2023 which showed no significant changes from June, with EF 65-70%, normally functioning bioprosthetic mitral valve, mild calcific aortic stenosis with [id number] reduced leaf mobility and no critical aortic stenosis evident. She has chronic variable immunodeficiency and continues on monthly subcutaneous immunoglobulin therapy. She is followed by infectious disease DrEthan Galdamez at [facility]. She did not tolerate nebulized tobramycin due to bronchospasm in the recent past. She is feeling better since admission. Her initial lactate was 2.5 and on repeat 1.6. Home oxygen saturations are typically 95% on 2 L, though she desaturated into the 80s% range with mild exertion and oxygen was increased to 4 liters/minute. [facility] Medical History Anticoagulated Pneumonia Wears glasses Eczema Osteoarthritis Bronchiectasis (~2006) Sleep apnea Asthma (~1959) Abnormal chest xray (~1979) Restless leg syndrome Migraines (~1964) Shoulder pain (~03/2018) Osteopenia Degenerative joint disease of spine (~2001) Foot pain Fibromyalgia Chronic back pain Cervical spine disease Ankle pain MRSA (methicillin resistant Staphylococcus aureus) (~2002) Anemia Hoarseness Recurrent sinusitis (~1970) Colon polyps (~2015) Hypothyroidism Diabetes mellitus, type II (~2009) Hypertension Hyperlipidemia Nail bed carcinoma Pneumonia Surgical History Anesthesia History of thumb surgery History of carpal tunnel release History of spinal fusion (~2012) History of laminectomy (~2002) History of section History of cataract removal with insertion of prosthetic lens (~2014) Family History Father Stroke Mother Hypertension Brother Cerebral aneurysm Prostate cancer Diabetes mellitus Hypertension Stroke Brother Arthritis Hyperlipidemia Hypertension Sister History of kidney cancer Hypertension Grandfather Cancer Grandmother Cancer Other Family history non-contributory Social History marital status: household members: spouse lives independently: Yes occupational status: previously employed Smoking Status: Never smoker alcohol intake: current substance use type: does not use Meds Home Medications and Allergies Home Medications Medication Instructions Recorded Confirmed Type polyethylene glycol 3350 17 17 gm PO DAILY PRN Constipation ##0 06/06/17 01/12/24 History gram/dose oral powder (Miralax) albuterol sulfate 90 mcg/actuation 2 puff inhalation Q4-6H PRN 05/29/19 01/12/24 History aerosol inhaler Shortness Of Breath cholecalciferol (vitamin D3) 50 2,000 unit PO DAILY 05/29/19 01/12/24 History mcg (2,000 unit) tablet ferrous sulfate 325 mg (65 mg 325 mg PO BEDTIME 05/29/19 01/12/24 History iron) tablet tizanidine 4 mg capsule 4 mg PO QID PRN Muscle Spasm 05/29/19 01/12/24 History sodium chloride 3 % for 3 ml inhalation BID 06/05/19 01/12/24 History nebulization cetirizine 10 mg capsule (Zyrtec) 10 mg PO DAILY allergies 01/20/20 01/12/24 History montelukast 10 mg tablet 10 mg PO BEDTIME 01/20/20 01/12/24 History (Singulair) verio reflect glucometer #1 ea 01/28/20 01/12/24 Rx insulin syringe-needle U-100 0.5 #100 ea 03/30/20 01/12/24 Rx mL 31 gauge x 5/16 (BD Insulin Syringe Ultra-Fine) metformin 1,000 mg tablet 1,000 mg PO BID #180 tabs 09/03/20 01/12/24 Rx atorvastatin 40 mg tablet 40 mg PO BEDTIME 04/20/21 01/12/24 History epinephrine 0.3 mg/0.3 mL 0.3 mg IM Q5-15M PRN Allergic 04/20/21 01/12/24 History injection, auto-injector (EpiPen) Reaction insulin glargine 100 unit/mL 20 unit SUBCUT QAM 04/20/21 01/12/24 History subcutaneous solution insulin lispro 100 unit/mL 4 - 8 unit SUBCUT TID 04/20/21 01/12/24 History subcutaneous pen (Humalog KwikPen (U-100) Insulin) levothyroxine 75 mcg tablet 75 mcg PO QAM 04/20/21 01/12/24 History tiotropium bromide 18 mcg capsule 1 cap inhalation DAILY 04/20/21 01/12/24 History with inhalation device (Spiriva with HandiHaler) lansoprazole 15 mg capsule,delayed 30 mg PO BID 04/29/21 01/12/24 History release (Prevacid 24Hr) duloxetine 30 mg capsule,delayed 30 mg PO DAILY 06/28/21 01/12/24 History release guaifenesin 1,200 mg tablet, 1,200 mg PO BID 06/28/21 01/12/24 History extended release 12 hr (Mucinex) pramipexole 0.5 mg tablet 0.5 mg PO BEDTIME 06/28/21 01/12/24 History fentanyl 25 mcg/hr transdermal 1 patch transdermal Q72H PRN pain 02/05/22 01/12/24 Rx patch (scale score 1-3) #5 ea omega-3 fatty acids 1,000 mg PO DAILY 04/24/22 01/12/24 History benralizumab 30 mg/mL subcutaneous 30 mg SUBCUT Q8W 06/03/22 01/12/24 History syringe (Fasenra) tnnhoqpymy-qoqgwzlrloknv-sygaduat 1 tab PO Q6H PRN Migraine Headache 06/03/22 01/12/24 History 50 mg-325 mg-40 mg tablet oxycodone 5 mg capsule 15 mg PO Q6H PRN Pain (Scale Score 06/03/22 01/12/24 History 7-10) prednisone 5 mg tablet 5 mg PO DAILY 06/03/22 01/12/24 History Hizintra 15 g SUBCUT QWEEK 08/25/22 01/12/24 History fluticasone 500 mcg-salmeterol 50 1 inh inhalation Q12H 08/25/22 01/12/24 History mcg/dose blistr powdr for inhalation (Advair Diskus) aluminum-mag hydroxide-simethicone 30 ml PO Q6HR PRN Dyspepsia #355 mL 08/28/22 01/12/24 Rx 200 mg-200 mg-20 mg/5 mL oral susp (Mag-Al Plus) calcium carbonate 1,000 mg (5 x 200 mg calcium (500 08/28/22 01/12/24 Rx mg)) PO Q4HR PRN Dyspepsia #60 tabs docusate sodium 100 mg capsule 100 mg PO BID #60 caps 08/28/22 01/12/24 Rx sennosides 8.6 mg tablet (senna) 17.2 mg (2 x 8.6 mg) PO BEDTIME 08/28/22 01/12/24 Rx #60 tabs fentanyl 12 mcg/hr transdermal 12 mcg transdermal SEEINSTR 10/13/22 01/12/24 History patch warfarin 1 mg tablet 1 mg PO DAILY 10/13/22 01/12/24 History magnesium oxide 400 mg PO BID 04/08/23 01/12/24 History metoprolol succinate 25 mg 12.5 mg PO BID 04/08/23 01/12/24 History tablet,extended release 24 hr torsemide 20 mg tablet 20 mg PO BID 04/08/23 01/12/24 History acetaminophen 325 mg tablet 650 mg PO Q6H PRN Pain, Mild 06/19/23 01/12/24 History acyclovir 5 % topical ointment 1 applic topical Q4-5H PRN Rash 06/19/23 01/12/24 History amiodarone 200 mg tablet 200 mg PO DAILY 06/19/23 01/12/24 History clotrimazole 10 mg aneesh 10 mg PO 5XD 06/19/23 01/12/24 History diclofenac sodium 1 % topical gel 4 g topical QID PRN JOINT PAIN 06/19/23 01/12/24 History ipratropium 0.5 mg-albuterol 3 mg 3 ml inhalation BID 06/19/23 01/12/24 History (2.5 mg base)/3 mL nebulization soln miconazole nitrate 2 % topical 1 applic topical QID PRN Rash 06/19/23 01/12/24 History powder naloxone 4 mg/actuation nasal spray 1 spray intranasal NOW PRN OVERDOSE 06/19/23 01/12/24 History ondansetron HCl 4 mg tablet 4 mg PO Q8H PRN Nausea And Vomiting 06/19/23 01/12/24 History oxymetazoline 0.05 % nasal drops 1 drp intranasal BID 06/19/23 01/12/24 History potassium chloride 20 mEq/15 mL 10 meq PO BIDWM 06/19/23 01/12/24 History oral liquid spironolactone 50 mg tablet 50 mg PO DAILY 01/12/24 01/12/24 History Allergies Allergy/AdvReac Type Severity Reaction Status Date / Time piperacillin [From Zosyn] Allergy Severe Rash Verified 04/08/23 17:46 tazobactam [From Zosyn] Allergy Severe Rash Verified 04/08/23 17:46 hydroxychloroquine Allergy Unknown Verified 04/08/23 13:14 [HYDROXYCHLOROQUINE] Sulfa (Sulfonamide Allergy Verified 06/19/23 17:00 Antibiotics) cefepime AdvReac Intermediate pruritis Verified 04/08/23 13:14 promethazine [From Phenergan] AdvReac Agitated Verified 04/08/23 13:14 Review of Systems Review of Systems ROS: Yes All systems reviewed with the patient and are negative except as otherwise documented Exam Vital Signs (past 8 hours): - 01/12/24 01:40 01/12/24 01:42 01/12/24 01:42 Temperature Pulse Rate 73 Respiratory Rate Blood Pressure 135/61 Pulse Oximetry 95 Oxygen Delivery Method Oxygen Flow Rate 01/12/24 01:44 01/12/24 02:00 01/12/24 02:01 Temperature 97.8 F Pulse Rate 66 63 Respiratory Rate 25 H 23 Blood Pressure 135/61 109/53 L Pulse Oximetry 93 96 Oxygen Delivery Method Nasal Cannula Oxygen Flow Rate 3 01/12/24 02:01 01/12/24 02:30 01/12/24 02:30 Temperature Pulse Rate 63 63 Respiratory Rate 31 H 18 Blood Pressure 105/59 L Pulse Oximetry 94 92 Oxygen Delivery Method Oxygen Flow Rate 01/12/24 03:00 01/12/24 03:00 01/12/24 03:30 Temperature Pulse Rate 61 63 Respiratory Rate 18 21 Blood Pressure 101/52 L Pulse Oximetry 95 93 Oxygen Delivery Method Oxygen Flow Rate 01/12/24 03:31 01/12/24 03:31 01/12/24 04:00 Temperature Pulse Rate 63 64 Respiratory Rate 23 24 Blood Pressure 113/56 L Pulse Oximetry 94 97 Oxygen Delivery Method Oxygen Flow Rate 3 01/12/24 04:00 01/12/24 04:30 01/12/24 04:31 Temperature Pulse Rate 60 60 Respiratory Rate 18 23 Blood Pressure 122/58 L Pulse Oximetry 97 98 Oxygen Delivery Method Oxygen Flow Rate 01/12/24 04:31 01/12/24 05:00 01/12/24 05:00 Temperature Pulse Rate 61 Respiratory Rate 20 Blood Pressure 99/56 L 103/57 L Pulse Oximetry 97 Oxygen Delivery Method Oxygen Flow Rate 01/12/24 05:30 01/12/24 05:30 01/12/24 06:00 Temperature Pulse Rate 59 L 65 Respiratory Rate 17 18 Blood Pressure 114/58 L Pulse Oximetry 97 96 Oxygen Delivery Method Oxygen Flow Rate 01/12/24 06:40 01/12/24 06:42 01/12/24 06:42 Temperature Pulse Rate 64 63 Respiratory Rate Blood Pressure 125/60 Pulse Oximetry 97 97 Oxygen Delivery Method Oxygen Flow Rate 01/12/24 07:00 01/12/24 07:30 01/12/24 07:30 Temperature Pulse Rate 69 60 Respiratory Rate Blood Pressure 122/56 L Pulse Oximetry 91 93 Oxygen Delivery Method Oxygen Flow Rate 01/12/24 07:31 01/12/24 07:31 01/12/24 07:36 Temperature Pulse Rate 62 64 Respiratory Rate 20 Blood Pressure 102/60 Pulse Oximetry 92 95 Oxygen Delivery Method Nasal Cannula Oxygen Flow Rate 3 01/12/24 08:00 01/12/24 08:03 01/12/24 08:03 Temperature Pulse Rate 63 67 Respiratory Rate Blood Pressure 121/58 L 121/58 L Pulse Oximetry 93 92 Oxygen Delivery Method Oxygen Flow Rate 3 Oxygen Delivery Method Nasal Cannula Oxygen Flow Rate 3 Narrative Exam Narrative: GENERAL: This is a well-nourished, well-developed patient, in no apparent distress. HEAD: Atraumatic. Normocephalic. No temporal or scalp tenderness. EYES: Pupils equal round and reactive. Extraocular motions intact. No scleral icterus. No injection or drainage. ENT: Mucous membranes pink and moist. NECK: Trachea midline. No JVD, bruits or lymphadenopathy. Supple, nontender, no meningeal signs. CARDIOVASCULAR: Regular rate and rhythm without murmurs, gallops, or rubs. RESPIRATORY: Diminished breath sounds throughout, mid to end-expiratory wheeze, faint inspiratory high-pitched breath sounds. scattered rhonchi. GASTROINTESTINAL: Abdomen soft, non-tender, nondistended. EXTREMITIES: 1+ edema. BACK: Nontender without deformity or crepitance. No flank tenderness. NEUROLOGIC: Alert, oriented, speech fluent, full upper and lower motor strength, no focal deficits evident. DERMATOLOGIC: No rashes or skin lesions. Objective ECG Impression: Normal sinus rhythm at 64bpm Right bundle branch block Imaging Chest x-ray: Radiologist's impression: Low lung volumes, with mild bibasilar atelectasis. No focal dense airspace consolidation. Labs 01/12/24 08:30 01/12/24 08:30 Labs: Laboratory Results - last 24 hr 01/12/24 01/12/24 01/12/24 01:49 01:49 03:56 WBC 10.1 RBC 4.15 Hgb 12.6 Hct 37.6 MCV 90.7 MCH 30.3 MCHC 33.4 RDW 17.0 H Plt Count 332 Neut % (Auto) 68.2 Lymph % (Auto) 20.5 L Morrow % (Auto) 10.8 Eos % (Auto) 0.0 L Baso % (Auto) 0.5 Neut # (Auto) 6900 Lymph # (Auto) 2100 Morrow # (Auto) 1100 H Eos # (Auto) 0 Baso # (Auto) 100 PT 21.1 H INR 1.8 H Sodium 136 L Potassium 3.9 Chloride 98 Carbon Dioxide 33 H BUN 46 H Creatinine 1.38 H Estimated GFR 40 L BUN/Creatinine Ratio 33.3 H Glucose 79 L Lactate 2.3 H 2.5 H Calcium 9.1 Total Bilirubin 0.4 AST 28 ALT 26 Alkaline Phosphatase 71 Total Creatine Kinase 83 Troponin I Cancelled 0.025 NT-Pro-B Natriuret Pep 2640 H Total Protein 8.2 Albumin 4.1 Globulin 4.1 Albumin/Globulin Ratio 1.0 Lipase 66 01/12/24 08:30 WBC 10.7 RBC 3.76 L Hgb 11.4 L Hct 34.5 L MCV 91.8 MCH 30.3 MCHC 33.1 RDW 16.6 H Plt Count 268 Neut % (Auto) 74.7 Lymph % (Auto) 14.7 L Morrow % (Auto) 9.9 Eos % (Auto) 0.1 L Baso % (Auto) 0.6 Neut # (Auto) 8000 H Lymph # (Auto) 1600 [place]row # (Auto) 1100 H Eos # (Auto) 0 Baso # (Auto) 100 PT INR Sodium 137 Potassium 3.7 Chloride 98 Carbon Dioxide 32 BUN 42 H Creatinine 1.36 H Estimated GFR 41 L BUN/Creatinine Ratio 30.9 H Glucose 157 H Lactate Calcium 8.6 Total Bilirubin AST ALT Alkaline Phosphatase Total Creatine Kinase Troponin I NT-Pro-B Natriuret Pep Total Protein Albumin Globulin Albumin/Globulin Ratio Lipase Assessment & Plan Assessment & Plan narrative: 1. Acute on chronic heart failure. Admit to medical telemetry inpatient. s/p IV lasix 60mg x 1 in ER. Continue IV lasix 60mg q8hrs with daily weights and strict I/Os Hold all home diuretics for now. 2. Chronic bronchiectasis/bronchiectasis/COPD with Pseudomonas colonization, possible acute infection. Repeat sputum analysis, start Levaquin 750 mg IV daily, and methylprednisolone 40 mg IV every 8 hours with frequently administered bronchodilators. 3. Acute on chronic respiratory failure with hypoxemia. likely above. Baseline o2 requiring is 2L and now patient is requiring 4L. 4. Mild elevated lactic acid, resolved on recheck. Could be from poor perfusion secondary to CHF exacerbation and hypoxemia. No sign of infection/sepsis. 5. Common variable immunodeficiency, on monthly immunoglobulin therapy. 6. History of PE. INR slightly sub Thx. Note INR is 1.8. Will have pharmacy dose coumadin. 7. Diabetes mellitus, type 2, insulin requiring. Monitor glucose and SQ insulin 8. DVT PPx Coumadin. 9. Code status full code Plan: -admit as inpatient -furosemide 60 mg IV every 8 hours -Levaquin 750 mg IV daily after sputum culture -oxygen titration -obtain recent sputum cultures from outside hospital -methylprednisolone 40 mg IV every 8 hours -frequently as needed her bronchodilators -her will bring in her chest physiotherapy -full code, discussed and confirmed today with the patient and her -Dispositon home in 2-3 days Time-Based Coding :: [TOTAL MINUTES] spent with patient and on the chart (including review of chart, obtaining history, exam, reviewing outside data, placing orders, documenting exam and treatment plan, and counseling patient) on [DATE]. Quality MIPS - Admit I confirm the patient?s Advance Care Plan is present, Code status is documented, Surrogate decision maker is in patient?s record [If Yes, STOP here]: Yes MIPS - Meds 'Current medications' to include all prescriptions, [id number] products, herbals, cannabis/cannabidiol products, and vitamin/mineral/dietary (nutritional) supplements. I have utilized all available resources to obtain, update, or review the patient?s current medications. [If Yes, STOP here]: Yes PROFEE Charge Codes Initial inpatient/observation care: 22189
[2024-01-12 09:46] LABS: Lactate (Lactic Acid) 1.6 mmol/L (0.7-2.1)
[2024-01-12] MEDS: METFORMIN HCL 500 MG TABLET 1000 MG PO ×2 (10:57→21:05)
[2024-01-12] MEDS: METOPROLOL ER 25 MG TABLET 12.5 MG PO (10:57)
[2024-01-12] MEDS: guaiFENesin ER 600 MG TAB 1200 MG PO ×2 (10:57→21:04)
[2024-01-12] MEDS: predniSONE 5 MG TABLET PO (10:57)
[2024-01-12] MEDS: CHOLECALCIFEROL (VITAMIN D3) 1,000 UNIT TABLET 2000 UNIT PO (10:57)
[2024-01-12] MEDS: DULOXETINE 30 MG CAPSULE PO (10:59)
[2024-01-12] MEDS: AMIODARONE 200 MG TABLET PO (10:59)
--- NOTE | 2024-01-12 11:50 | PT.IIE ---
Surgical History (Last Reviewed 01/12/24 @ 09:16 by Scott Jeter MD) Anesthesia History of carpal tunnel release History of cataract removal with insertion of prosthetic lens (~2014) History of section History of laminectomy (~2002) History of spinal fusion (~2012) History of thumb surgery Medical History (Last Reviewed 01/12/24 @ 09:16 by Scott Jeter MD) Abnormal chest xray (~1979) Anemia Ankle pain Anticoagulated Asthma (~1959) Bronchiectasis (~2006) Cervical spine disease Chronic back pain Colon polyps (~2015) Degenerative joint disease of spine (~2001) Diabetes mellitus, type II (~2009) Eczema Fibromyalgia Foot pain Hoarseness Hyperlipidemia Hypertension Hypothyroidism Migraines (~1964) 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 Osteopenia Pneumonia Pneumonia Recurrent sinusitis (~1970) Restless leg syndrome Shoulder pain (~03/2018) Sleep apnea Wears glasses Physical Therapy Inpatient Evaluation/Re-Eval M1 PT/OT-IP Prior Functional Status Start: 01/12/24 13:48 Freq: NEEDED Status: Active Protocol: Document 01/12/24 11:50 AB (Rec: 01/12/24 14:00 AB [id number]) Medical Review Prior Functional Status Medical History Reviewed Yes Communication able to make needs known Mobility and Gait pt stated that she was modified independent with transfers and ambulates using 4WW but only short distances and mostly when she has to use the toilet. stated that she uses her power w/c for mobility Social History Household Members spouse Living Arrangements House Number of Floors (Floors) One Floor Number of Stairs To Enter/Railing? ramp to enter Home Environment High Toilet,Walk in Shower Home Equipment Front Wheel Walker,Four Wheel Walker,Straight Cane,Manual Wheelchair,Power Wheelchair/ Scooter,Shower Seat with Backrest,Hand Held Shower,Grab Bars Near Toilet,Grab Bars In Shower Additional Social History Comment pt has an adjustable bed with B rails M2 PT-IP Current Condition Start: 01/12/24 13:48 Freq: NEEDED Status: Active Protocol: Document 01/12/24 11:50 AB (Rec: 01/12/24 14:00 AB [id number]) Physical Therapy Current Condition Current Condition Evaluation Date 01/12/24 Treatment Diagnosis CHF; difficulty in walking Onset Date 01/12/24 M3 PT-IP Subjective Start: 01/12/24 13:48 Freq: NEEDED Status: Active Protocol: Document 01/12/24 11:50 AB (Rec: 01/12/24 14:00 AB [id number]) Subjective Physical Therapy Visit Type Type Initial Evaluation Visit Start Time 11:50 Visit Stop Time 12:10 Number of QUAIL FARMER Visits 0 Physical Therapy Visit Comments Patient Comments needs motivation to participate M4 PT-IP Mobility and Gait Start: 01/12/24 13:48 Freq: NEEDED Status: Active Protocol: Document 01/12/24 11:50 AB (Rec: 01/12/24 14:00 AB [id number]) PT-Bed Mobility Assessment Rolling Level of Assist Moderate Assistance Supine to Sit Supine to Sit Standby Assistance,Head of Bed Elevated PT-Transfer Assessment Sit to and From Stand Sit to and from Stand Contact Guard Assistance,1 Person Assistance,Use of Upper Extremities Equipment Transfer Assistive Device Gait Belt,Front Wheeled Walker Orthotic/Prosthetic Devices or Brace: No Transfers Transfer Destination Bedside Commode Transfer Technique Stand Step Pivot Transfer Ability Level of Assist Standby Assistance,1 Person Assistance,Use of Upper Extremities Comments Mobility Comments pt supine in bed and initially refusing PT. informed pt regarding importance of mobility and for pt to get up for lunch. pt agreed. NAC in room to assist with brief change. pt completed rolling L <>R mod A and use of bed rail. O2 sat with 3L/min O2: 95%. pt completed supine to sit with HOB elevated SBA. able to sit on EOB SBA. (+)SOB. O2 sat: 93-95%. pt requested to use the toilet. completed sit to stand CGA and step transfer to the bedside commode CGA using FWW. pt wanting to use the toilet for awhile. Left pt with NAC. Gait Assessment Comments Gait Comments able to take steps during transfer to the toilet using FWW PT-Balance Assessment Sitting Balance and Reactions Static Sitting Balance Ability Good Dynamic Sitting Balance Ability Good Standing Balance and Reactions Static Standing Balance Ability Fair Dynamic Standing Balance Ability Fair Device Used FWW M5 PT-IP Objective Assessments Start: 01/12/24 13:48 Freq: NEEDED Status: Active Protocol: Document 01/12/24 11:50 AB (Rec: 01/12/24 14:00 AB [id number]) Orientation Orientation/Cognition Level of Alertness Alert Orientation Name,Place,Situation Safety Awareness Decreased Safety Awareness Memory Description Short Term Impaired Gross Range of Motion Lower Extremity ROM Assessment Within Functional Limits Strength Lower Extremity Strength Hip 4-/5 Knee 4-/5 Coordination Assessment Gross Coordination Gross Coordination WNL Muscle Tone Muscle Tone WNL Yes M6 PT-IP Treatment Start: 01/12/24 13:48 Freq: NEEDED Status: Active Protocol: Document 01/12/24 11:50 AB (Rec: 01/12/24 14:00 AB [id number]) Physical Therapy Treatment Education Education Provided Safety M7 PT-IP Assessment and Plan Start: 01/12/24 13:48 Freq: NEEDED Status: Active Protocol: Document 01/12/24 11:50 AB (Rec: 01/12/24 14:00 AB [id number]) PT Summary Assessment and Plan Potential Rehabilitation Potential Fair Status of Condition at Evaluation Evolving Summary Impairments Pain,ROM,Strength,Balance, Coordination,Sensation,Tone, Cognition,Bed Mobility, Transfers,Gait,Activity Tolerance Assessment Summary Pt is a 73 y/o F who has (+) SOB and admitted for CHF. pt requiring CGA with mobility using FWW. (+) SOB with 3L/ min O2 but O2 sat maintained at 93-95% with activity. pt plans to go home and spouse to assist. will continue to assess progress. Goals Bed Mobility Goal Independent Transfer Goal Independent,Front Wheeled Walker,Four Wheeled Walker Gait Goal Independent,Front Wheel Walker ,Four Wheel Walker Gait Distance 50 Days to Meet Goals 10 Frequency of Treatment Frequency Of Treatment Once a Day Treatment Plan Physical Therapy Treatment Plan Bed Mobility Training,Transfer Training,Gait Training, Therapeutic Exercise,Balance Retraining,Discharge Planning, Hot or Cold Pack,Neuromuscular Re-ed,Coordination Retraining Precautions Other Precautions O2 sat Recommendations To Nursing Amount of Assist Needed 1 Person Assist Discharge Recommendations PT Discharge Recommendations Home with Assistance,Home Health Transportation Needs at Discharge Private Vehicle
[2024-01-12] MEDS: INSULIN GLARGINE 100 UNIT/ML 3ML PEN 20 UNIT SUBCUT (12:11)
[2024-01-12] MEDS: levoFLOXacin 750 MG/150 ML PIGGYBACK 100 MG IV (13:08)
[2024-01-12] MEDS: POTASSIUM CHLORIDE 20 MEQ/15 ML UDC 10 MEQ PO (16:10)
[2024-01-12] MEDS: WARFARIN 1 MG TABLET PO (16:10)
[2024-01-12] MEDS: polyethylene glycoL 3350 17 GM POWD.PACK PO (19:59)
[2024-01-12] MEDS: SODIUM CHLORIDE 7% (RT/INH) 4 ML NEB 3 ML INH (20:11)
[2024-01-12] MEDS: BUDESONIDE 0.5 MG/2 ML NEB INH (20:11)
[2024-01-12] MEDS: PRAMIPEXOLE 0.25 MG TABLET 0.5 MG PO (21:04)
[2024-01-12] MEDS: OXYMETAZOLINE NASAL SPRAY 30 ML 1 SPRAYS NASAL (21:04)
[2024-01-12] MEDS: MONTELUKAST 10 MG TABLET PO (21:05)
[2024-01-12] MEDS: ATORVASTATIN 20 MG TABLET 40 MG PO (21:05)
[2024-01-12] MEDS: MAGNESIUM OXIDE 400 MG TABLET PO (21:05)
[2024-01-12] MEDS: PANTOPRAZOLE DR 20 MG TABLET PO (21:05)
[2024-01-12] MEDS: SENNOSIDES 8.6 MG TABLET 17.2 MG PO (21:05)
[2024-01-12] MEDS: FERROUS SULFATE 325 MG TABLET PO (21:06)
[2024-01-12] MEDS: DOCUSATE 100 MG CAPSULE PO (21:06)
[2024-01-12] MEDS: CLOTRIMAZOLE TROCHE 10 MG PO (21:18)
[2024-01-13] VITALS (10 sets, daily range): BP systolic 107–136; BP diastolic 56–68; PULSE 63–94; RESP 15–20; TEMP 36.3–36.7; O2SAT 90–94
[2024-01-13] MEDS: ALBUTEROL/IPRATROPIUM 3 ML AMPUL INH ×6 (01:43→23:07)
[2024-01-13] MEDS: FUROSEMIDE 60 MG in SODIUM CHLORIDE 0.9% 50 ML 112 MG IV ×3 (03:01→20:43)
[2024-01-13] MEDS: ALBUTEROL 2.5 MG/3 ML NEB (ADULT) INH ×3 (04:09→21:09)
[2024-01-13] MEDS: CLOTRIMAZOLE TROCHE 10 MG PO ×5 (05:21→20:48)
[2024-01-13 06:00] LABS: Add Manual Diff / Slide Review NO; Basophils Absolute Auto 0 /uL (0-100); Basophils Percent Auto 0.1 % (0-2); Eosinophils Absolute Auto 0 /uL (0-450); Hematocrit 34.9 % (36-46); Hemoglobin 11.7 g/dL (12.0-16.0); Lymphocytes Absolute Auto 600 /uL (1100-4500); Lymphocytes Percent Auto 7.5 % (25-40); Mean Corpuscular HGB Conc 33.5 % (30-36); Mean Corpuscular Hemoglobin 30.7 PG (26-34); Mean Corpuscular Volume 91.6 fL (80-100); Monocytes Absolute Auto 100 /uL (0-900); Monocytes Percent Auto 1.5 % (3-14); Neutrophils Absolute Auto 7100 /uL (1500-7000); Neutrophils Percent Auto 90.9 % (50-75); Platelet Count 299 X10^3/uL (150-400); Red Blood Cell Count 3.81 X10^6/uL (4.0-5.2); Red Cell Distribution Width 16.7 % (11.6-14.8); White Blood Cell Count 7.8 X10^3/uL (4.5-11.0)
[2024-01-13 06:02] LABS: INR 2.1 (0.9-1.3); Prothrombin Time 24.7 SECONDS (9.4-12.5)
[2024-01-13 06:08] LABS: BUN Creatinine Ratio 28.2 (6-22); Blood Urea Nitrogen 37 mg/dL (7-17); Calcium 8.8 mg/dL (8.4-10.2); Carbon Dioxide 26 mmol/L (22-32); Chloride 96 mmol/L (98-107); Estimated Glomerular Filt Rate 42 mL/min (>60); Glucose 264 mg/dL (80-110); HEMOLYSIS < 15 (0-50); Potassium 4.3 mmol/L (3.4-5.1); Sodium 135 mmol/L (137-145)
[2024-01-13] MEDS: LEVOTHYROXINE 75 MCG TABLET PO (06:26)
[2024-01-13] MEDS: guaiFENesin ER 600 MG TAB 1200 MG PO ×2 (08:34→20:46)
[2024-01-13] MEDS: AMIODARONE 200 MG TABLET PO (08:34)
[2024-01-13] MEDS: FISH OIL 1,000 MG CAPSULE 1000 MG PO (08:34)
[2024-01-13] MEDS: OXYMETAZOLINE NASAL SPRAY 30 ML 1 SPRAYS NASAL ×2 (08:35→20:49)
[2024-01-13] MEDS: PANTOPRAZOLE DR 20 MG TABLET PO ×2 (08:35→20:46)
[2024-01-13] MEDS: SPIRONOLACTONE 25 MG TABLET 50 MG PO (08:35)
[2024-01-13] MEDS: METFORMIN HCL 500 MG TABLET 1000 MG PO ×2 (08:35→20:47)
[2024-01-13] MEDS: DOCUSATE 100 MG CAPSULE PO ×2 (08:35→20:46)
[2024-01-13] MEDS: DULOXETINE 30 MG CAPSULE PO (08:35)
[2024-01-13] MEDS: MAGNESIUM OXIDE 400 MG TABLET PO ×2 (08:36→20:47)
[2024-01-13] MEDS: LORATADINE 10 MG TABLET PO (08:36)
[2024-01-13] MEDS: CHOLECALCIFEROL (VITAMIN D3) 1,000 UNIT TABLET 2000 UNIT PO (08:36)
[2024-01-13] MEDS: POTASSIUM CHLORIDE 20 MEQ/15 ML UDC 10 MEQ PO ×2 (08:36→17:06)
[2024-01-13] MEDS: METOPROLOL ER 25 MG TABLET 12.5 MG PO ×2 (08:37→20:44)
[2024-01-13] MEDS: INSULIN GLARGINE 100 UNIT/ML 3ML PEN 20 UNIT SUBCUT (08:38)
--- NOTE | 2024-01-13 09:35 | P.PN_ITS ---
Subjective Subjective Date Patient Seen: 01/13/24 Time Patient Seen: 07:55 Interval history: 73 year old female with past medical history of CHF, chronic respiratory failure on 2L of O2 at baseline, IDDM, hypothyroidism and PE s/p IVC filter and on Coumadin presents with complaints of shortness of breath and LEs edema. Of note, the patient was recently admitted and discharge from outside hospital within the last month for acute on chronic HF. However, over the last few days, the patient noticed increasing shortness of breath, LEs edema and a dry cough despite taking her Torsemide and Spiranolactone as instructed. Otherwise, the patient denies any recent chest pain, fever, chills, nausea, vomiting or diarrhea. In our ER, the patient was requiring 3-4L of O2. Per our ER physician, the patient has clinical sign of volume overload with significant edema in her LEs and bilateral crackles on exam. CXR however didn't shows much edema or sign of PNA. The patient was given IV Lasix 60mg x 1. Labs otherwise were relatively benign. Interval history: The patient reports that she has had increasing cough, wheezing and sputum production in the past few weeks. She has cultured Pseudomonas aeruginosa. She had an echocardiogram 12/23/2023 which showed no significant changes from June, with EF 65-70%, normally functioning bioprosthetic mitral valve, mild calcific aortic stenosis with [id number] reduced leaf mobility and no critical aortic stenosis evident. She has chronic variable immunodeficiency and continues on monthly subcutaneous immunoglobulin therapy. She is followed by infectious disease DrEthan Galdamez at [facility]. She did not tolerate nebulized tobramycin due to bronchospasm in the recent past. She is feeling better since admission. Her initial lactate was 2.5 and on repeat 1.6. Home oxygen saturations are typically 95% on 2 L, though she desaturated into the 80s% range with mild exertion and oxygen was increased to 4 liters/minute. Interval history: The patient experienced 2.5L diuresis overnight. She reports feeling better but has a rhonchorous cough this morning. Exam Vital Signs (past 8 hours): - 01/13/24 08:00 01/13/24 08:37 Temperature 98.1 F Pulse Rate 63 63 Respiratory Rate 19 Blood Pressure 107/68 107/68 Pulse Oximetry 93 Oxygen Flow Rate 2 Oxygen Delivery Method Nasal Cannula Oxygen Flow Rate 2 Narrative Exam Narrative: GENERAL: This is a well-nourished, well-developed patient, in no apparent distress. EYES: Pupils equal round and reactive. Extraocular motions intact. No scleral icterus. No injection or drainage. ENT: Mucous membranes pink and moist. NECK: Trachea midline. No JVD, bruits or lymphadenopathy. Supple, nontender, no meningeal signs. CARDIOVASCULAR: Regular rate and rhythm without murmurs, gallops, or rubs. RESPIRATORY: Diminished breath sounds throughout, mid to end-expiratory wheeze, faint inspiratory high-pitched breath sounds. scattered rhonchi. GASTROINTESTINAL: Abdomen soft, non-tender, nondistended. EXTREMITIES: 1+ edema. NEUROLOGIC: Alert, oriented, speech fluent, full upper and lower motor strength, no focal deficits evident. DERMATOLOGIC: No rashes or skin lesions. Objective Labs 01/13/24 04:45 01/13/24 04:45 Labs: Laboratory Results - last 24 hr 01/12/24 01/13/24 09:30 04:45 WBC 7.8 RBC 3.81 L Hgb 11.7 L Hct 34.9 L MCV 91.6 MCH 30.7 MCHC 33.5 RDW 16.7 H Plt Count 299 Neut % (Auto) 90.9 H Lymph % (Auto) 7.5 L Carter % (Auto) 1.5 L Eos % (Auto) 0.0 L Baso % (Auto) 0.1 Neut # (Auto) 7100 H Lymph # (Auto) 600 L Carter # (Auto) 100 Eos # (Auto) 0 Baso # (Auto) 0 PT 24.7 H INR 2.1 H Sodium 135 L Potassium 4.3 Chloride 96 L Carbon Dioxide 26 BUN 37 H Creatinine 1.31 H Estimated GFR 42 L BUN/Creatinine Ratio 28.2 H Glucose 264 H D Lactate 1.6 Calcium 8.8 PFSH Medical History Anticoagulated Pneumonia Wears glasses Eczema Osteoarthritis Bronchiectasis (~2006) Sleep apnea Asthma (~1959) Abnormal chest xray (~1979) Restless leg syndrome Migraines (~1964) Shoulder pain (~03/2018) Osteopenia Degenerative joint disease of spine (~2001) Foot pain Fibromyalgia Chronic back pain Cervical spine disease Ankle pain MRSA (methicillin resistant Staphylococcus aureus) (~2002) Anemia Hoarseness Recurrent sinusitis (~1970) Colon polyps (~2015) Hypothyroidism Diabetes mellitus, type II (~2009) Hypertension Hyperlipidemia Nail bed carcinoma Pneumonia Surgical History Anesthesia History of thumb surgery History of carpal tunnel release History of spinal fusion (~2012) History of laminectomy (~2002) History of section History of cataract removal with insertion of prosthetic lens (~2014) Family History Father Stroke Mother Hypertension Brother Cerebral aneurysm Prostate cancer Diabetes mellitus Hypertension Stroke Brother Arthritis Hyperlipidemia Hypertension Sister History of kidney cancer Hypertension Grandfather Cancer Grandmother Cancer Other Family history non-contributory Social History marital status: household members: spouse lives independently: Yes occupational status: previously employed Smoking Status: Never smoker alcohol intake: current substance use type: does not use Assessment & Plan Assessment & Plan narrative: 1. Acute on chronic heart failure. Admit to medical telemetry inpatient, continue IV lasix 60mg q8hr. Monitor daily weights and strict I/Os. 2. Chronic bronchiectasis/bronchiectasis/COPD with Pseudomonas colonization, possible acute infection. Repeat sputum analysis, start Levaquin 750 mg IV daily, and methylprednisolone 40 mg IV every 8 hours with frequently administered bronchodilators. Sputum culture pending. 3. Acute on chronic respiratory failure with hypoxemia. likely above. Baseline o2 requiring is 2L and now patient is requiring 3L, down from 4L yesterday. 4. Mild elevated lactic acid, resolved on recheck. Could be from poor perfusion secondary to CHF exacerbation and hypoxemia. No sign of infection/sepsis. 5. Common variable immunodeficiency, on monthly immunoglobulin therapy. 6. History of PE. INR slightly sub Thx. Note INR is up to 2.1 from 1.8 on admit. Pharmacy to dose coumadin. 7. Diabetes mellitus, type 2, insulin requiring. Monitor glucose and SQ insulin coverage. 8. DVT PPx Coumadin. 9. Code status full code Plan: -admit as inpatient -furosemide 60 mg IV every 8 hours -Levaquin 750 mg IV daily after sputum culture. Monitor QTc with daily EKGs. -oxygen titration -obtain recent sputum cultures from outside hospital -methylprednisolone 40 mg IV every 8 hours -frequently as needed her bronchodilators -continue home device chest physiotherapy -full code, discussed and confirmed today with the patient and her -Dispositon home in 1-2 days PROFEE Charge codes Subsequent inpatient/observation care: [id number]
[2024-01-13] MEDS: BUDESONIDE 0.5 MG/2 ML NEB INH ×2 (09:36→19:12)
[2024-01-13] MEDS: SODIUM CHLORIDE 7% (RT/INH) 4 ML NEB 3 ML INH ×2 (09:37→19:12)
--- NOTE | 2024-01-13 12:00 | PT.IPTN ---
Current Diagnoses Heart failure, unspecified (01/12/24) Physical Therapy Treatment Note M2 PT-IP Current Condition Start: 01/12/24 13:48 Freq: NEEDED Status: Active Protocol: Document 01/12/24 11:50 AB (Rec: 01/12/24 14:00 AB [id number]) Physical Therapy Current Condition Current Condition Evaluation Date 01/12/24 Treatment Diagnosis CHF; difficulty in walking Onset Date 01/12/24 M3 PT-IP Subjective Start: 01/12/24 13:48 Freq: NEEDED Status: Active Protocol: Document 01/13/24 11:23 MB (Rec: 01/13/24 12:00 MB [id number]) Subjective Physical Therapy Visit Type Type Treatment Note Visit Start Time 11:23 Visit Stop Time 11:41 Number of LABORER WHARF Visits 0 Physical Therapy Visit Comments Patient Comments Pt sitting up in chair with nearby and she is agreeable to PT. M4 PT-IP Mobility and Gait Start: 01/12/24 13:48 Freq: NEEDED Status: Active Protocol: Document 01/13/24 11:23 MB (Rec: 01/13/24 12:00 MB [id number]) PT-Transfer Assessment Sit to and From Stand Sit to and from Stand Contact Guard Assistance,1 Person Assistance,Use of Upper Extremities Equipment Transfer Assistive Device Gait Belt,Front Wheeled Walker Orthotic/Prosthetic Devices or Brace: No Transfers Transfer Destination Bedside Commode Transfer Technique Stepping Transfer Ability Level of Assist Contact Guard Assistance,1 Person Assistance,Use of Upper Extremities Comments Mobility Comments Pt on 2L O2 and she denies SOB at rest. Dyspnea scale increases to 3/4 with minimal mobility to stand and step to BSC about 3' and to perform toileting. O2 sats drop to the mid to low 80s and hang around 88-89% on 2L after short mobility including rest breaks. RT enters to check on pt and nsg also nearby. Left up in chair with needs in reach and nsg and RT nearby. Gait Assessment Gait Gait Assistance Required: Contact Guard Assist Distance (Feet) 3 Able to Maintain Weight Bearing Status Yes During Gait Assistive Devices Assistive Device Gait Belt,Front Wheeled Walker Orthotic/Prosthetic Devices or Brace: Yes Gait Deviations General Gait Pattern Flexed Trunk,Step-to Gait,Wide Based Gait Factors Limiting Gait Function Factors Limiting Gait Function Poor Balance,Poor Safety Awareness Comments Gait Comments Very HORTON PT-Balance Assessment Sitting Balance and Reactions Static Sitting Balance Ability Good Dynamic Sitting Balance Ability Good Standing Balance and Reactions Static Standing Balance Ability Fair Dynamic Standing Balance Ability Fair Device Used FWW M5 PT-IP Objective Assessments Start: 01/12/24 13:48 Freq: NEEDED Status: Active Protocol: Document 01/12/24 11:50 AB (Rec: 01/12/24 14:00 AB [id number]) Orientation Orientation/Cognition Level of Alertness Alert Orientation Name,Place,Situation Safety Awareness Decreased Safety Awareness Memory Description Short Term Impaired Gross Range of Motion Lower Extremity ROM Assessment Within Functional Limits Strength Lower Extremity Strength Hip 4-/5 Knee 4-/5 Coordination Assessment Gross Coordination Gross Coordination WNL Muscle Tone Muscle Tone WNL Yes M6 PT-IP Treatment Start: 01/12/24 13:48 Freq: NEEDED Status: Active Protocol: Document 01/13/24 11:23 MB (Rec: 01/13/24 12:00 MB [id number]) Physical Therapy Treatment Education Education Provided Safety M7 PT-IP Assessment and Plan Start: 01/12/24 13:48 Freq: NEEDED Status: Active Protocol: Document 01/13/24 11:23 MB (Rec: 01/13/24 12:00 MB [id number]) PT Summary Assessment and Plan Potential Rehabilitation Potential Fair Status of Condition at Evaluation Evolving Summary Impairments Pain,ROM,Strength,Balance, Coordination,Bed Mobility, Transfers,Gait,Activity Tolerance Progress Towards Goals Slow Progress due to Activity Tolerance Assessment Summary O2 sats decrease on 2L O2 today and pt with 3/4 Dyspnea scale with mobility. Pt is only able to gait train 3' forwad to BSC and back to chair given HORTON and O2 sats in the mid to high 80s on the 2L and she tends not to breathe through nose but rather through mouth with mobility. and pt state that pt gait trains 20' at most at baseline and tends to use electric scooter at home. They feel she is pretty close to her baseline as far as mobility. Goals Bed Mobility Goal Independent Transfer Goal Independent,Front Wheeled Walker,Four Wheeled Walker Gait Goal Independent,Front Wheel Walker ,Four Wheel Walker Gait Distance 25 Days to Meet Goals 10 Frequency of Treatment Frequency Of Treatment Once a Day Treatment Plan Physical Therapy Treatment Plan Bed Mobility Training,Transfer Training,Gait Training, Therapeutic Exercise,Balance Retraining,Discharge Planning, Hot or Cold Pack,Neuromuscular Re-ed,Coordination Retraining Precautions Other Precautions O2 sat Recommendations To Nursing Amount of Assist Needed 1 Person Assist Discharge Recommendations PT Discharge Recommendations Home with Assistance,Home Health Transportation Needs at Discharge Private Vehicle
--- NOTE | 2024-01-13 14:47 | CM.DANOTE ---
B DCP Assessment Note Pt is a 73yo F with extensive PMH/medically fragile here with acute on chronic CHF, resp failure, and hx of chronic abx use. Baseline O2 is 2L, pt has been getting up to 4ltrs during admission. PCP Dr. Karin Porter Payer [facility] and self pay SIDE LASTER reviewed EMR. Per chart, last admission was June of 2023. Discharged home with [facility] and [facility]. Per RN, [facility] continues to manage home immune support med. Per chart, followed by Dr. Whalen for chronic UTIs. Per chart review, enrolled with [employer] Train[employer] program. Lives in [place] with giacomo who is a retired PA. SIDE LASTER lvm with [facility] to inquire about resuming care for pt. no response. Per hospitalist, likely home in a day or two. Unclear if there is something needed for pt to continue with [facility]. CM team will reach out to their team Sunday SIDE LASTER attempted to meet with pt x3 in room, either working with RT/PT or active with nursing care. P: anticipate home with [facility] resumption and spouse support. CM team will continue to follow closely MACKENZIE Concepcion Discharge Planning/Care Management CM Discharge Assessment Start: 01/13/24 14:44 Freq: Status: Active Protocol: Document 01/13/24 14:45 (Rec: 01/13/24 14:46 [id number]) Discharge Planning Assessment Assigned Switch Operators Supervisor MACKENZIE Cornell DPOA/Assigned Designee Name Harjeet spouse Contact Information [phone] Advance Directives? Yes: Advance Directive & POLST Advance Directives on File Yes History Provided By Medical Record Prior Living Arrangements House Household Members spouse Type of transporation used prior to Relies on Others admit Community Services used prior to Oxygen Therapy admission: Comment Has shower chair as well, home oxygen is through [employer]. 5 ltrs at baseline. Patient/Family Preference Home with Home Health Comment medically and physically fragile. return home w/spouse, who is a retired Orthopedic PA-C Discharge Plan Home with Home Health Transportation Arrangement Spouse Referrals Initiated Other Additional Comment Resumption of [facility] services potentially. Confirm [facility] can accept pt if appropriate for [facility] If patient plan is home with home health No: not needed for Resumption : Has signed face to face form been completed? If patient plan is SNF: Has PASSR been Yes completed? Review Status In Process Please Provide Date Initial DC 01/13/24 Assessment Was Performed Next Review Type Continued Stay Review
[2024-01-13] MEDS: WARFARIN 1 MG TABLET PO (17:06)
[2024-01-13] MEDS: MONTELUKAST 10 MG TABLET PO (20:44)
[2024-01-13] MEDS: PRAMIPEXOLE 0.25 MG TABLET 0.5 MG PO (20:44)
[2024-01-13] MEDS: SENNOSIDES 8.6 MG TABLET 17.2 MG PO (20:45)
[2024-01-13] MEDS: ATORVASTATIN 20 MG TABLET 40 MG PO (20:45)
[2024-01-13] MEDS: FERROUS SULFATE 325 MG TABLET PO (20:46)
[2024-01-13] MEDS: MELATONIN 3 MG TABLET 6 MG PO (23:53)
[2024-01-14] VITALS (12 sets, daily range): BP systolic 106–152; BP diastolic 44–76; PULSE 70–85; RESP 16–118; TEMP 35.8–36.8; O2SAT 91–99
[2024-01-14 04:47] LABS: INR 2.2 (0.9-1.3); Prothrombin Time 25.9 SECONDS (9.4-12.5)
[2024-01-14] MEDS: FUROSEMIDE 60 MG in SODIUM CHLORIDE 0.9% 50 ML 112 MG IV ×2 (05:17→13:00)
[2024-01-14] MEDS: LEVOTHYROXINE 75 MCG TABLET PO (05:18)
[2024-01-14] MEDS: CLOTRIMAZOLE TROCHE 10 MG PO ×5 (05:18→22:11)
[2024-01-14] MEDS: LORATADINE 10 MG TABLET PO (08:17)
[2024-01-14] MEDS: METOPROLOL ER 25 MG TABLET 12.5 MG PO ×2 (08:17→22:20)
[2024-01-14] MEDS: PANTOPRAZOLE DR 20 MG TABLET PO ×2 (08:17→22:20)
[2024-01-14] MEDS: MAGNESIUM OXIDE 400 MG TABLET PO ×2 (08:17→22:22)
[2024-01-14] MEDS: predniSONE 5 MG TABLET PO (08:17)
[2024-01-14] MEDS: METFORMIN HCL 500 MG TABLET 1000 MG PO ×2 (08:20→22:22)
[2024-01-14] MEDS: CHOLECALCIFEROL (VITAMIN D3) 1,000 UNIT TABLET 2000 UNIT PO (08:21)
[2024-01-14] MEDS: DOCUSATE 100 MG CAPSULE PO ×2 (08:21→22:19)
[2024-01-14] MEDS: FISH OIL 1,000 MG CAPSULE 1000 MG PO (08:21)
[2024-01-14] MEDS: guaiFENesin ER 600 MG TAB 1200 MG PO ×2 (08:22→22:20)
[2024-01-14] MEDS: AMIODARONE 200 MG TABLET PO (08:22)
[2024-01-14] MEDS: POTASSIUM CHLORIDE 20 MEQ/15 ML UDC 10 MEQ PO ×2 (08:22→17:02)
[2024-01-14] MEDS: ALBUTEROL 2.5 MG/3 ML NEB (ADULT) INH (08:51)
[2024-01-14] MEDS: BUDESONIDE 0.5 MG/2 ML NEB INH ×2 (08:51→19:16)
[2024-01-14] MEDS: INSULIN LISPRO 100 UNIT/ML 3ML VIAL SUBCUT ×4 (09:13→22:12)
[2024-01-14] MEDS: INSULIN GLARGINE 100 UNIT/ML 3ML PEN 20 UNIT SUBCUT (09:20)
[2024-01-14] MEDS: DULOXETINE 30 MG CAPSULE PO (09:20)
[2024-01-14] MEDS: OXYMETAZOLINE NASAL SPRAY 30 ML 1 SPRAYS NASAL ×2 (09:20→22:10)
[2024-01-14] MEDS: SPIRONOLACTONE 25 MG TABLET 50 MG PO (09:21)
[2024-01-14] MEDS: fentaNYL 12 MCG/PATCH TOP (09:23)
[2024-01-14] MEDS: fentaNYL 25 MCG/PATCH TOP (09:24)
[2024-01-14] MEDS: ALBUTEROL/IPRATROPIUM 3 ML AMPUL INH ×4 (11:12→22:50)
--- NOTE | 2024-01-14 11:20 | PM.PN.1 ---
Subjective Subjective Interval history: Summary: 73 year old female with past medical history of CHF, chronic respiratory failure on 2L of O2 at baseline, IDDM, hypothyroidism and PE s/p IVC filter and on Coumadin presents with complaints of shortness of breath and LEs edema. Of note, the patient was recently admitted and discharge from outside hospital within the last month for acute on chronic HF. However, over the last few days, the patient noticed increasing shortness of breath, LEs edema and a dry cough despite taking her Torsemide and Spiranolactone as instructed. Otherwise, the patient denies any recent chest pain, fever, chills, nausea, vomiting or diarrhea. In our ER, the patient was requiring 3-4L of O2. Per our ER physician, the patient has clinical sign of volume overload with significant edema in her LEs and bilateral crackles on exam. CXR however didn't shows much edema or sign of PNA. The patient was given IV Lasix 60mg x 1. Labs otherwise were relatively benign. Interval history: The patient reports that she has had increasing cough, wheezing and sputum production in the past few weeks. She has cultured Pseudomonas aeruginosa. She had an echocardiogram 12/23/2023 which showed no significant changes from June, with EF 65-70%, normally functioning bioprosthetic mitral valve, mild calcific aortic stenosis with [id number] reduced leaf mobility and no critical aortic stenosis evident. She has chronic variable immunodeficiency and continues on monthly subcutaneous immunoglobulin therapy. She is followed by infectious disease DrEthan Galdamez at [facility]. She did not tolerate nebulized tobramycin due to bronchospasm in the recent past. She is feeling better since admission. Her initial lactate was 2.5 and on repeat 1.6. Home oxygen saturations are typically 95% on 2 L, though she desaturated into the 80s% range with mild exertion and oxygen was increased to 4 liters/minute. S: She was feeling better today, about 50%. She still has an intermittent cough which is productive of clear sputum. She was on 2 L of oxygen, the same As at home. No fevers or chills. Exam Vital Signs (past 8 hours): - 01/14/24 04:00 01/14/24 08:00 01/14/24 08:00 Temperature 96.5 F L 97.2 F L Pulse Rate 81 73 Respiratory Rate 19 16 Blood Pressure 121/62 152/76 H Pulse Oximetry 95 98 Oxygen Delivery Method Nasal Cannula Oxygen Flow Rate 2 2 01/14/24 08:17 01/14/24 11:14 Temperature Pulse Rate 73 Respiratory Rate Blood Pressure 152/76 H Pulse Oximetry 94 Oxygen Delivery Method Nasal Cannula Oxygen Flow Rate 2 Oxygen Delivery Method Nasal Cannula Oxygen Flow Rate 2 Narrative Exam Narrative: NAD, alert and oriented. Fluent speech. Lungs are clear, normal rate and effort. Heart is regular, no murmur gallop or rub. Abdomen is soft, non distended. Extremities are with trace edema. Objective Labs 01/13/24 04:45 01/13/24 04:45 Labs: Laboratory Results - last 24 hr 01/14/24 03:55 PT 25.9 H INR 2.2 H PFSH Medical History Anticoagulated Pneumonia Wears glasses Eczema Osteoarthritis Bronchiectasis (~2006) Sleep apnea Asthma (~1959) Abnormal chest xray (~1979) Restless leg syndrome Migraines (~1964) Shoulder pain (~03/2018) Osteopenia Degenerative joint disease of spine (~2001) Foot pain Fibromyalgia Chronic back pain Cervical spine disease Ankle pain MRSA (methicillin resistant Staphylococcus aureus) (~2002) Anemia Hoarseness Recurrent sinusitis (~1970) Colon polyps (~2015) Hypothyroidism Diabetes mellitus, type II (~2009) Hypertension Hyperlipidemia Nail bed carcinoma Pneumonia Surgical History Anesthesia History of thumb surgery History of carpal tunnel release History of spinal fusion (~2012) History of laminectomy (~2002) History of section History of cataract removal with insertion of prosthetic lens (~2014) Family History Father Stroke Mother Hypertension Brother Cerebral aneurysm Prostate cancer Diabetes mellitus Hypertension Stroke Brother Arthritis Hyperlipidemia Hypertension Sister History of kidney cancer Hypertension Grandfather Cancer Grandmother Cancer Other Family history non-contributory Social History marital status: household members: spouse lives independently: Yes occupational status: previously employed Smoking Status: Never smoker alcohol intake: current substance use type: does not use Assessment & Plan Assessment & Plan narrative: 1. Acute on chronic heart failure. Admit to medical telemetry inpatient, continue IV lasix 60mg q8hr. Monitor daily weights and strict I/Os. 2. Chronic bronchiectasis/bronchiectasis/COPD with Pseudomonas colonization, possible acute infection. Repeat sputum analysis, start Levaquin 750 mg IV daily, and methylprednisolone 40 mg IV every 8 hours with frequently administered bronchodilators. Sputum culture pending. 3. Acute on chronic respiratory failure with hypoxemia. likely above. Baseline o2 requiring is 2L and now patient is requiring 3L, down from 4L yesterday. 4. Mild elevated lactic acid, resolved on recheck. Could be from poor perfusion secondary to CHF exacerbation and hypoxemia. No sign of infection/sepsis. 5. Common variable immunodeficiency, on monthly immunoglobulin therapy. 6. History of PE. INR slightly sub Thx. Note INR is up to 2.1 from 1.8 on admit. Pharmacy to dose coumadin. 7. Diabetes mellitus, type 2, insulin requiring. Monitor glucose and SQ insulin coverage. 8. DVT PPx is Coumadin. 9. Code status full code PLAN: -continue diuresis today, we will also continue Levaquin for 5 days as well as steroids. These can likely be converted to oral tomorrow. Sputum culture is pending. -hyperglycemia secondary to steroids, add correctional lispro. Estimated date of discharge is January 14 if she improves with her breathing and is able to ambulate. Time-Based Coding :: [TOTAL MINUTES] spent with patient and on the chart (including review of chart, obtaining history, exam, reviewing outside data, placing orders, documenting exam and treatment plan, and counseling patient) on [DATE].
[2024-01-14] MEDS: levoFLOXacin 750 MG/150 ML PIGGYBACK 100 MG IV (13:42)
--- NOTE | 2024-01-14 15:03 | CM.DPC ---
DCP COnt: Per MD, pt continues on IV abx and medications and not yet medically stable to discharge but potential for d/c tomorrow Tues. Per PT, home with assist and HH. SW confirmed with [facility] that pt was just discharged from their services and would need new referral, F2F and orders. SW met bedside with pt and spouse and explained role and confirmed they just discharged from [facility] and currently they plan to d/c home and do the exercises that HH PT provided to them without need of new Critical access hospital at this time. Spouse feels he can provide the assist needed and have 3 wheeled walker at home that works well. Spouse confirms that pt still gets her immunoglobin through [facility] and they ship it to their house once a week and is ordered through pt's Customer Experience Leader in [place]. SW left msg with Carroll at [facility] to confirm they do not need any orders or clinicals to review since Customer Experience Leader following. Plan: SW to follow for plan of discharge home via spouse POV and no HH needed at this time and [facility] following for pt's immunoglobulin. Millie Dumont MSW
--- NOTE | 2024-01-14 15:57 | EKG_ITS ---
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
--- NOTE | 2024-01-14 16:22 | PT-IP ANOTE ---
PT checks on pt who is sitting up in chair and pt declines PT. Con't efforts next date.
[2024-01-14] MEDS: WARFARIN 1 MG TABLET 0.5 MG PO (17:02)
[2024-01-14] MEDS: MELATONIN 3 MG TABLET 6 MG PO (22:19)
[2024-01-14] MEDS: FERROUS SULFATE 325 MG TABLET PO (22:20)
[2024-01-14] MEDS: SENNOSIDES 8.6 MG TABLET 17.2 MG PO (22:20)
[2024-01-14] MEDS: MONTELUKAST 10 MG TABLET PO (22:20)
[2024-01-14] MEDS: ATORVASTATIN 20 MG TABLET 40 MG PO (22:21)
[2024-01-14] MEDS: PRAMIPEXOLE 0.25 MG TABLET 0.5 MG PO (22:22)
[2024-01-15] VITALS (7 sets, daily range): BP systolic 116–146; BP diastolic 55–77; PULSE 61–85; RESP 16–22; TEMP 36.3–37; O2SAT 91–97
[2024-01-15] MEDS: FUROSEMIDE 60 MG in SODIUM CHLORIDE 0.9% 50 ML 112 MG IV ×3 (00:18→12:34)
[2024-01-15] MEDS: CLOTRIMAZOLE TROCHE 10 MG PO ×3 (05:18→14:57)
[2024-01-15] MEDS: LEVOTHYROXINE 75 MCG TABLET PO (05:18)
[2024-01-15 05:53] LABS: INR 2.6 (0.9-1.3); Prothrombin Time 29.9 SECONDS (9.4-12.5)
[2024-01-15] MEDS: BUDESONIDE 0.5 MG/2 ML NEB INH (06:48)
[2024-01-15] MEDS: ALBUTEROL/IPRATROPIUM 3 ML AMPUL INH ×2 (06:48→11:01)
[2024-01-15] MEDS: POTASSIUM CHLORIDE 20 MEQ/15 ML UDC 10 MEQ PO (09:06)
[2024-01-15] MEDS: DULOXETINE 30 MG CAPSULE PO (09:08)
[2024-01-15] MEDS: DOCUSATE 100 MG CAPSULE PO (09:08)
[2024-01-15] MEDS: AMIODARONE 200 MG TABLET PO (09:08)
[2024-01-15] MEDS: LORATADINE 10 MG TABLET PO (09:08)
[2024-01-15] MEDS: MAGNESIUM OXIDE 400 MG TABLET PO (09:08)
[2024-01-15] MEDS: predniSONE 5 MG TABLET PO (09:08)
[2024-01-15] MEDS: guaiFENesin ER 600 MG TAB 1200 MG PO (09:09)
[2024-01-15] MEDS: METFORMIN HCL 500 MG TABLET 1000 MG PO (09:09)
[2024-01-15] MEDS: FISH OIL 1,000 MG CAPSULE 1000 MG PO (09:09)
[2024-01-15] MEDS: METOPROLOL ER 25 MG TABLET 12.5 MG PO (09:09)
[2024-01-15] MEDS: CHOLECALCIFEROL (VITAMIN D3) 1,000 UNIT TABLET 2000 UNIT PO (09:09)
[2024-01-15] MEDS: SPIRONOLACTONE 25 MG TABLET 50 MG PO (09:10)
[2024-01-15] MEDS: INSULIN GLARGINE 100 UNIT/ML 3ML PEN 20 UNIT SUBCUT (09:11)
[2024-01-15] MEDS: INSULIN LISPRO 100 UNIT/ML 3ML VIAL SUBCUT ×2 (09:11→12:16)
[2024-01-15] MEDS: PANTOPRAZOLE DR 20 MG TABLET PO (09:11)
--- NOTE | 2024-01-15 09:20 | PT.IPTN ---
Current Diagnoses Heart failure, unspecified (01/12/24) Physical Therapy Treatment Note M2 PT-IP Current Condition Start: 01/12/24 13:48 Freq: NEEDED Status: Active Protocol: Document 01/12/24 11:50 AB (Rec: 01/12/24 14:00 AB [id number]) Physical Therapy Current Condition Current Condition Evaluation Date 01/12/24 Treatment Diagnosis CHF; difficulty in walking Onset Date 01/12/24 M3 PT-IP Subjective Start: 01/12/24 13:48 Freq: NEEDED Status: Active Protocol: Document 01/15/24 09:50 TS (Rec: 01/15/24 10:03 TS [id number]) Subjective Physical Therapy Visit Type Type Treatment Note Visit Start Time 09:20 Visit Stop Time 09:47 Number of TERMITE EXTERMINATOR Visits 1 Physical Therapy Visit Comments Patient Comments Pt found resting in bed, reports weezing when up and moving, she is agreeable to PT . M4 PT-IP Mobility and Gait Start: 01/12/24 13:48 Freq: NEEDED Status: Active Protocol: Document 01/15/24 09:50 TS (Rec: 01/15/24 10:03 TS [id number]) PT-Bed Mobility Assessment Supine to Sit Supine to Sit Standby Assistance,Head of Bed Elevated PT-Transfer Assessment Sit to and From Stand Sit to and from Stand Contact Guard Assistance, Minimal Assistance,1 Person Assistance,Use of Upper Extremities Equipment Transfer Assistive Device Gait Belt,Front Wheeled Walker Orthotic/Prosthetic Devices or Brace: Yes Transfers Transfer Destination Bedside Commode Transfer Technique Stepping Transfer Ability Level of Assist Contact Guard Assistance,1 Person Assistance,Use of Upper Extremities Comments Mobility Comments Pt resting on 2L's of o2 at 91 %. Supine to sit SBA with HBO elevated. Pt wheezes sitting EOB, Spo2 desats to 88-89%, cued pt for PLB. STS with FWW CGA. Pt ambulates in the room ~20' before sitting down in the chair. She requests to use the commode. STS from the chair Perry with FWW. Pt sits on the commode and doffs brief . Pt was lft on the commode, spouse in the room, nursing notified. Gait Assessment Gait Gait Assistance Required: Standby Assistance,Contact Guard Assist Distance (Feet) 20 Able to Maintain Weight Bearing Status Yes During Gait Assistive Devices Assistive Device Gait Belt,Front Wheeled Walker Orthotic/Prosthetic Devices or Brace: Yes Gait Deviations General Gait Pattern Flexed Trunk,Step-to Gait,Wide Based Gait Factors Limiting Gait Function Factors Limiting Gait Function Poor Balance,Poor Safety Awareness PT-Balance Assessment Sitting Balance and Reactions Static Sitting Balance Ability Good Dynamic Sitting Balance Ability Good Standing Balance and Reactions Static Standing Balance Ability Fair Dynamic Standing Balance Ability Fair Device Used FWW M5 PT-IP Objective Assessments Start: 01/12/24 13:48 Freq: NEEDED Status: Active Protocol: Document 01/12/24 11:50 AB (Rec: 01/12/24 14:00 AB [id number]) Orientation Orientation/Cognition Level of Alertness Alert Orientation Name,Place,Situation Safety Awareness Decreased Safety Awareness Memory Description Short Term Impaired Gross Range of Motion Lower Extremity ROM Assessment Within Functional Limits Strength Lower Extremity Strength Hip 4-/5 Knee 4-/5 Coordination Assessment Gross Coordination Gross Coordination WNL Muscle Tone Muscle Tone WNL Yes M6 PT-IP Treatment Start: 01/12/24 13:48 Freq: NEEDED Status: Active Protocol: Document 01/15/24 09:50 TS (Rec: 01/15/24 10:03 TS [id number]) Physical Therapy Treatment Education Education Provided Safety M7 PT-IP Assessment and Plan Start: 01/12/24 13:48 Freq: NEEDED Status: Active Protocol: Document 01/15/24 09:50 TS (Rec: 01/15/24 10:03 TS [id number]) PT Summary Assessment and Plan Potential Rehabilitation Potential Fair Summary Impairments Pain,ROM,Strength,Balance, Coordination,Bed Mobility, Transfers,Gait,Activity Tolerance Progress Towards Goals Slow Progress due to Activity Tolerance Assessment Summary Radha is making some progress with her mobility but continues to be limited by poor activity tolerance. Her spo2 desats with mobility to 88-89% on 2L's with mobility and she wheezes often. She progressed her gait to ~20' SBA/CGA with FWW. PT is recommending home with assist and HHPT. Goals Bed Mobility Goal Independent Transfer Goal Independent,Front Wheeled Walker,Four Wheeled Walker Gait Goal Independent,Front Wheel Walker ,Four Wheel Walker Gait Distance 25 Days to Meet Goals 10 Frequency of Treatment Frequency Of Treatment Once a Day Treatment Plan Physical Therapy Treatment Plan Bed Mobility Training,Transfer Training,Gait Training, Therapeutic Exercise,Balance Retraining,Discharge Planning, Hot or Cold Pack,Neuromuscular Re-ed,Coordination Retraining Precautions Other Precautions O2 sat Recommendations To Nursing Amount of Assist Needed 1 Person Assist Discharge Recommendations PT Discharge Recommendations Home with Assistance,Home Health Transportation Needs at Discharge Private Vehicle
[2024-01-15] MEDS: polyethylene glycoL 3350 17 GM POWD.PACK PO (10:51)
--- NOTE | 2024-01-15 10:57 | CM.DPC ---
DCP Cont. Reviewed EMR and team rounds for status updates. Per Hospitalist, pt is now medically cleared for home d/c. Called [facility] to confirm her d/c date for today, they will f/u with her OP to resume her previously ordered home infusion for immunotherapy. No further d/c needs identified at this time.
--- NOTE | 2024-01-15 12:48 | OT.IPNOTE ---
Spoke to pt and who have been here multiple times over the years. 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 Pt wants to resume home health. Therefore discharge OT eval orders.
--- NOTE | 2024-01-15 13:18 | PM.DS.1 ---
History of Present Illness History of Present Illness Date Patient Seen: 01/15/24 Time Patient Seen: 13:18 Date of Onset of Symptoms: 01/12/24 Chief complaint: Sob, wheezy Narrative: Per admitting provider, 73 year old female with past medical history of CHF, chronic respiratory failure on 2L of O2 at baseline, IDDM, hypothyroidism and PE s/p IVC filter and on Coumadin presents with complaints of shortness of breath and LEs edema. Of note, the patient was recently admitted and discharge from outside hospital within the last month for acute on chronic HF. However, over the last few days, the patient noticed increasing shortness of breath, LEs edema and a dry cough despite taking her Torsemide and Spiranolactone as instructed. Otherwise, the patient denies any recent chest pain, fever, chills, nausea, vomiting or diarrhea. In our ER, the patient was requiring 3-4L of O2. Per our ER physician, the patient has clinical sign of volume overload with significant edema in her LEs and bilateral crackles on exam. CXR however didn't shows much edema or sign of PNA. The patient was given IV Lasix 60mg x 1. Labs otherwise were relatively benign. Interval history: The patient reports that she has had increasing cough, wheezing and sputum production in the past few weeks. She has cultured Pseudomonas aeruginosa. She had an echocardiogram 12/23/2023 which showed no significant changes from June, with EF 65-70%, normally functioning bioprosthetic mitral valve, mild calcific aortic stenosis with [id number] reduced leaf mobility and no critical aortic stenosis evident. She has chronic variable immunodeficiency and continues on monthly subcutaneous immunoglobulin therapy. She is followed by infectious disease DrEthan Galdamez at [facility]. She did not tolerate nebulized tobramycin due to bronchospasm in the recent past. She is feeling better since admission. Her initial lactate was 2.5 and on repeat 1.6. Home oxygen saturations are typically 95% on 2 L, though she desaturated into the 80s% range with mild exertion and oxygen was increased to 4 liters/minute. Discharge Providers Provider Date of admission: 01/12/24 06:02 Discharge Date: 01/15/24 Primary care physician: Karin Porter MD Consults: 01/12/24 06:03 Consult to Occupational Therapy Evaluate & Treat Comment: Physician Instructions: Evaluate and treat Consult to Physical Therapy Evaluate & Treat Comment: Physician Instructions: Evaluate and Treat Discharge provider: Harjeet Nance DO Summary Hospital Course Discharge Diagnosis: 1. Acute on chronic heart failure. 2. Chronic bronchiectasis/COPD with Pseudomonas colonization, possible acute infection. 3. Acute on chronic respiratory failure with hypoxemia. 4. Mild elevated lactic acid, resolved on recheck. 5. Common variable immunodeficiency, on monthly immunoglobulin therapy. 6. History of PE. 7. Diabetes mellitus, type 2, insulin requiring. Hospital Course: This is a 73 year old female with chronic hypoxemic respiratory failure, diabetes, CVID, COPD/bronchiectasis who was admitted with shortness of breath and acute respiratory failure with hypoxia. She symptomatically improved with levofloxacin administration along with steroids. Sputum cultures collected during her admission are growing a fercho along with yeast at the time of discharge, though final speciation are pending. These are likely to result with her chronic Pseudomonas, but given her improvement with antibiotics she was continued on levofloxacin. She was also recommended to continue a short of fluconazole for a possible fungal infection given her complex prior lung and infectious disease history. She improved to her baseline oxygen use, and felt improved and was discharged home. No other changes to her chronic his are recommended, though with her antibiotic and antifungal INR checks are recommended with her primary care provider for possible adjustments. No other changes to at the time of discharge. Time Spent with Patient Time spent: Greater than 30 minutes Exam Vital Signs (past 8 hours): - 01/15/24 06:48 01/15/24 08:00 01/15/24 09:09 Temperature 97.3 F L Pulse Rate 73 75 73 Respiratory Rate 22 16 Blood Pressure 125/66 146/77 H Pulse Oximetry 91 95 Oxygen Delivery Method Nasal Cannula Oxygen Flow Rate 2 2 Fraction of Inspired Oxygen 28 01/15/24 11:06 01/15/24 12:00 Temperature 98.0 F Pulse Rate 61 Respiratory Rate 19 Blood Pressure 119/55 L Pulse Oximetry 95 Oxygen Delivery Method Nasal Cannula Oxygen Flow Rate 2 2 Fraction of Inspired Oxygen Fraction of Inspired Oxygen 28 SaO2/FiO2 Ratio 325 Oxygen Delivery Method Nasal Cannula Oxygen Flow Rate 2 Narrative Exam Narrative: NAD, alert and oriented. Fluent speech. Lungs are clear, normal rate and effort. Heart is regular, no murmur gallop or rub. Abdomen is soft, non distended. Extremities are with trace edema. Objective Labs 01/13/24 04:45 01/13/24 04:45 Labs: Laboratory Results - last 24 hr 01/15/24 05:15 PT 29.9 H INR 2.6 H PFSH Medical History Anticoagulated Pneumonia Wears glasses Eczema Osteoarthritis Bronchiectasis (~2006) Sleep apnea Asthma (~1959) Abnormal chest xray (~1979) Restless leg syndrome Migraines (~1964) Shoulder pain (~03/2018) Osteopenia Degenerative joint disease of spine (~2001) Foot pain Fibromyalgia Chronic back pain Cervical spine disease Ankle pain MRSA (methicillin resistant Staphylococcus aureus) (~2002) Anemia Hoarseness Recurrent sinusitis (~1970) Colon polyps (~2015) Hypothyroidism Diabetes mellitus, type II (~2009) Hypertension Hyperlipidemia Nail bed carcinoma Pneumonia Surgical History Anesthesia History of thumb surgery History of carpal tunnel release History of spinal fusion (~2012) History of laminectomy (~2002) History of section History of cataract removal with insertion of prosthetic lens (~2014) Family History Father Stroke Mother Hypertension Brother Cerebral aneurysm Prostate cancer Diabetes mellitus Hypertension Stroke Brother Arthritis Hyperlipidemia Hypertension Sister History of kidney cancer Hypertension Grandfather Cancer Grandmother Cancer Other Family history non-contributory Social History marital status: household members: spouse lives independently: Yes occupational status: previously employed Smoking Status: Never smoker alcohol intake: current substance use type: does not use Discharge Plan Discharge Plan Patient Disposition: Home Provider Discharge Comment: You were admitted to the hospital with shortness of breath. Improved with antibiotics. Also cultures growing yeast, starting on fluconazole and continue treatment with levofloxacin. Watch INR carefully with this medication. Follow up with PCP ideally within the week, or early next week to check on symptoms and medication adjustments if needed. Discharge orders & Medications Prescriptions: New levofloxacin 750 mg tablet 750 mg PO DAILY 7 Days Qty: 7 0RF fluconazole 200 mg tablet 200 mg PO DAILY 10 Days Qty: 10 0RF Continued polyethylene glycol 3350 [Miralax] 119 GM powder 17 gm PO DAILY PRN (Reason: Constipation) Qty: 0 (DME) insulin syringe-needle U-100 [BD Insulin Syringe Ultra-Fine] 0.5 mL 31 gauge x 5/16 syringe See Rx Instructions .ROUTE .MEDSUPPLY Qty: 100 1RF Rx Instructions: Use once a day as directed metformin 1,000 mg tablet 1,000 mg PO BID Qty: 180 0RF (DME) verio reflect glucometer Qty: 1 0RF Rx Instructions: As directed ferrous sulfate 325 mg (65 mg iron) tablet 325 mg PO BEDTIME tizanidine 4 mg capsule 4 mg PO QID PRN (Reason: Muscle Spasm) cholecalciferol (vitamin D3) 2,000 unit tablet 2,000 unit PO DAILY albuterol sulfate 90 mcg/actuation HFA aerosol inhaler 2 puff INHALATION Q4-6H PRN (Reason: Shortness Of Breath) lansoprazole [Prevacid 24Hr] 15 mg Capsule,Delayed Release(Dr/Ec) 30 mg PO BID fentanyl 25 mcg/hr patch 72 hour 1 patch transdermal Q72H PRN (Reason: pain (scale score 1-3)) Qty: 5 0RF Patient Comments: placed today at home omega-3 fatty acids Capsule 1,000 mg PO DAILY fluticasone propion-salmeterol [Advair Diskus] 500-50 mcg/dose Blister With Device 1 inh INHALATION Q12H Hizintra 15 g auto-injector 15 g SUBCUT QWEEK Rx Instructions: pt takes on Sundays. calcium carbonate 200 mg calcium (500 mg) Tablet,Chewable 1,000 mg PO Q4HR PRN (Reason: Dyspepsia) Qty: 60 0RF docusate sodium 100 mg Capsule 100 mg PO BID Qty: 60 0RF alum-mag hydroxide-simeth [Mag-Al Plus] 200-200-20 mg/5 mL Suspension 30 ml PO Q6HR PRN (Reason: Dyspepsia) Qty: 355 0RF sennosides [senna] 8.6 mg Tablet 17.2 mg PO BEDTIME Qty: 60 0RF metoprolol succinate 25 mg tablet extended release 24 hr 12.5 mg PO BID torsemide 20 mg tablet 20 mg PO BID magnesium oxide 400 mg magnesium Tablet 400 mg PO BID spironolactone 50 mg Tablet 50 mg PO DAILY sodium chloride 3 % Solution For Nebulization 3 ml INHALATION BID Rx Instructions: use w/ nebulizer 2 x daily montelukast [Singulair] 10 mg Tablet 10 mg PO BEDTIME Zyrtec 10 mg Capsule 10 mg PO DAILY atorvastatin 40 mg Tablet 40 mg PO BEDTIME levothyroxine 75 mcg Tablet 75 mcg PO QAM epinephrine [EpiPen] 0.3 mg/0.3 mL Auto-Injector 0.3 mg IM Q5-15M PRN (Reason: Allergic Reaction) Rx Instructions: do not exceed 3 doses per episode tiotropium bromide [Spiriva with HandiHaler] 18 mcg Capsule, W/Inhalation Device 1 cap INHALATION DAILY Rx Instructions: puncture 1 cap using device; one dose = 2 inhalations insulin glargine 100 unit/mL solution 20 unit SUBCUT QAM insulin lispro [Humalog KwikPen Insulin] 100 unit/mL insulin pen 4 - 8 unit SUBCUT TID Rx Instructions: SLIDING SCALE USED AT HOME. pramipexole 0.5 mg tablet 0.5 mg PO BEDTIME duloxetine 30 mg Capsule,Delayed Release(Dr/Ec) 30 mg PO DAILY guaifenesin [Mucinex] 1,200 mg Tablet Extended Release 12hr 1,200 mg PO BID prednisone 5 mg tablet 5 mg PO DAILY [id number]-ixvq 50-325-40 mg Tablet 1 tab PO Q6H PRN (Reason: Migraine Headache) oxycodone 5 mg Capsule 15 mg PO Q6H PRN (Reason: Pain (Scale Score 7-10)) Fasenra 30 mg/mL Syringe 30 mg SUBCUT Q8W fentanyl 12 mcg/hr patch 72 hour 12 mcg transdermal SEEINSTR Patient Comments: apply 1 patch to CLEAN, DRY, AND INTACT SKIN every 72 hours Rx Instructions: Q72HR in addition to 25mcg patch warfarin 1 mg tablet 1 mg PO DAILY Rx Instructions: Patient's states dose has been around 0.5mg two days a week and 1mg all other days amiodarone 200 mg tablet 200 mg PO DAILY potassium chloride 20 mEq/15 mL liquid 10 meq PO BIDWM clotrimazole 10 mg aneesh 10 mg PO 5XD acetaminophen 325 mg Tablet 650 mg PO Q6H PRN (Reason: Pain, Mild) ondansetron HCl 4 mg tablet 4 mg PO Q8H PRN (Reason: Nausea And Vomiting) miconazole nitrate 2 % Powder 1 applic TOPICAL QID PRN (Reason: Rash) acyclovir 5 % Ointment 1 applic TOPICAL Q4-5H PRN (Reason: Rash) diclofenac sodium 1 % Gel 4 g TOPICAL QID PRN (Reason: JOINT PAIN) ipratropium-albuterol 0.5 mg-3 mg(2.5 mg base)/3 mL Solution For Nebulization 3 ml INHALATION BID oxymetazoline 0.05 % Drops 1 drp INTRANASAL BID naloxone 4 mg/actuation spray,non-aerosol 1 spray intranasal NOW PRN (Reason: OVERDOSE) Follow up/Referrals: Karin Porter MD [Primary Care Provider] - Activity Restrictions/Additional Instructions: Continue to take all of your medications as directed except we are going to increase your Torasemide from just 40 mg in the morning to 40 mg in the morning and 20 mg in the afternoon. If over the next couple days this is not improving the edema you can continue to take the 40 mg in the morning but increase the evening dose to 40 mg. Recommend you contact your primary doctor for follow-up. Return to the emergency department for new symptoms. Diet/Activity/Treatments Diet: Diet as Tolerated, Regular and Carb-consistent/Diabetic Activity: No restrictions Oxygen: Goal O2 89-96% Visit Report/Discharge Packet Instructions: DI for Heart Failure, DI for Peripheral Edema -- Bilateral, Fluconazole, Levofloxacin Stand Alone Forms: Patient Portal/API, Stroke Signs & Symptoms Discharge Data Primary Care Provider: Karin Porter
--- NOTE | 2024-01-15 15:18 | PC.NURSE ---
D/c instructions reviewed with Pt. Provided stroke education, and discussed CHF guidelines. Pt agreeable to d/c today. IV removed, tele d/c'd. Gave Pt her home meds from the drawer. Pt dressed and exited via w/c with FIELD TECH and spouse to private vehicle.
== END 2024-01-15 15:34 | disposition home or self-care (01) | DRG 291 ==
LOC: ED 05:56 → AC 06:03
PROVIDERS: Internal Medicine; Admitting Provider Internal Medicine; Emergency Provider Emergency Medicine; Family Provider Internal Medicine Infectious Disease; PCP Internal Medicine; Referring Provider Emergency Medicine; Visit Provider Internal Medicine
DX: I11.0 Hypertensive heart disease with heart failure (principal); J96.21 Acute and chronic respiratory failure with hypoxia; D84.89 Other immunodeficiencies; I50.9 Heart failure, unspecified; E11.9 Type 2 diabetes mellitus without complications; B96.5 Pseudomonas (aeruginosa) (mallei) (pseudomallei) as the cause of diseases classified elsewhere; E78.5 Hyperlipidemia, unspecified; E03.9 Hypothyroidism, unspecified; D64.9 Anemia, unspecified; J47.9 Bronchiectasis, uncomplicated; B99.9 Unspecified infectious disease; G25.81 Restless legs syndrome; Z99.81 Dependence on supplemental oxygen; Z86.711 Personal history of pulmonary embolism; Z79.01 Long term (current) use of anticoagulants; Z95.828 Presence of other vascular implants and grafts; Z79.4 Long term (current) use of insulin; Z95.2 Presence of prosthetic heart valve; Z79.84 Long term (current) use of oral hypoglycemic drugs
CPT/HCPCS: 36415; 71045; 80048; 80053; 82550; 82962; 83605; 83690; 83880; 84484; 85025; 85610; 87070; 87077; 87205; 93005; 93010; 94640; 94760; 94762; 96365; 97162; 97530; 99284; 99285; A9270; J1815; J1940; J1956; J2919; J7613

== ENCOUNTER 2024-01-28 11:19 | Emergency (ER) | payer OTHER, SELFPAY ==
[2023-05-06 18:45] VITALS: PULSE 72; RESP 20; O2SAT 95
[2024-01-12 08:57] VITALS: BMI 36.7
[2024-01-28] VITALS (69 sets, daily range): BP systolic 83–164; BP diastolic 47–81; PULSE 54–76; RESP 14–29; TEMP 36.7; O2SAT 91–99; BMI 35.2
--- NOTE | 2024-01-28 11:54 | ED.RECABL ---
HPI - Recheck/Abnormal Lab/Rx <Harjeet Carlosthor, DO - Last Filed: 01/29/24 07:04> General Chief Complaint: Recheck/Abnormal Lab/Rx Stated Complaint: INR is really high per pt Time Seen by Provider: 01/28/24 11:54 Source: patient and family Mode of arrival: Wheelchair History of Present Illness HPI narrative: Patient is a 73-year-old female history of CHF, hypertension, hyperlipidemia, hypothyroidism PE on warfarin comes into the ED from home for evaluation of elevated INR. States that she checked her INR at home today and it was 8. She has not complaining of any symptoms no trauma no falls no pain. Patient does chronically require supplemental oxygen at baseline, 2 L nasal cannula not requiring any increase of this. She has not complaining of any other symptoms at this time. States that she has not changed any of her dosage of her medications. Related Data Home Medications Medication Instructions Recorded Confirmed polyethylene glycol 3350 17 17 gm PO DAILY PRN Constipation ##0 06/06/17 01/12/24 gram/dose oral powder (Miralax) albuterol sulfate 90 mcg/actuation 2 puff inhalation Q4-6H PRN 05/29/19 01/12/24 aerosol inhaler Shortness Of Breath cholecalciferol (vitamin D3) 50 2,000 unit PO DAILY 05/29/19 01/12/24 mcg (2,000 unit) tablet ferrous sulfate 325 mg (65 mg 325 mg PO BEDTIME 05/29/19 01/12/24 iron) tablet tizanidine 4 mg capsule 4 mg PO QID PRN Muscle Spasm 05/29/19 01/12/24 sodium chloride 3 % for 3 ml inhalation BID 06/05/19 01/12/24 nebulization cetirizine 10 mg capsule (Zyrtec) 10 mg PO DAILY allergies 01/20/20 01/12/24 montelukast 10 mg tablet 10 mg PO BEDTIME 01/20/20 01/12/24 (Singulair) atorvastatin 40 mg tablet 40 mg PO BEDTIME 04/20/21 01/12/24 epinephrine 0.3 mg/0.3 mL 0.3 mg IM Q5-15M PRN Allergic 04/20/21 01/12/24 injection, auto-injector (EpiPen) Reaction insulin glargine 100 unit/mL 20 unit SUBCUT QAM 04/20/21 01/12/24 subcutaneous solution insulin lispro 100 unit/mL 4 - 8 unit SUBCUT TID 04/20/21 01/12/24 subcutaneous pen (Humalog KwikPen (U-100) Insulin) levothyroxine 75 mcg tablet 75 mcg PO QAM 04/20/21 01/12/24 tiotropium bromide 18 mcg capsule 1 cap inhalation DAILY 04/20/21 01/12/24 with inhalation device (Spiriva with HandiHaler) lansoprazole 15 mg capsule,delayed 30 mg PO BID 04/29/21 01/12/24 release (Prevacid 24Hr) duloxetine 30 mg capsule,delayed 30 mg PO DAILY 06/28/21 01/12/24 release guaifenesin 1,200 mg tablet, 1,200 mg PO BID 06/28/21 01/12/24 extended release 12 hr (Mucinex) pramipexole 0.5 mg tablet 0.5 mg PO BEDTIME 06/28/21 01/12/24 omega-3 fatty acids 1,000 mg PO DAILY 04/24/22 01/12/24 benralizumab 30 mg/mL subcutaneous 30 mg SUBCUT Q8W 06/03/22 01/12/24 syringe (Fasenra) luhagndlyd-rtceqrezjmsku-ijmgybks 1 tab PO Q6H PRN Migraine Headache 06/03/22 01/12/24 50 mg-325 mg-40 mg tablet oxycodone 5 mg capsule 15 mg PO Q6H PRN Pain (Scale Score 06/03/22 01/12/24 7-10) prednisone 5 mg tablet 5 mg PO DAILY 06/03/22 01/12/24 Hizintra 15 g SUBCUT QWEEK 08/25/22 01/12/24 fluticasone 500 mcg-salmeterol 50 1 inh inhalation Q12H 08/25/22 01/12/24 mcg/dose blistr powdr for inhalation (Advair Diskus) fentanyl 12 mcg/hr transdermal 12 mcg transdermal SEEINSTR 10/13/22 01/12/24 patch warfarin 1 mg tablet 1 mg PO DAILY 10/13/22 01/12/24 magnesium oxide 400 mg PO BID 04/08/23 01/12/24 metoprolol succinate 25 mg 12.5 mg PO BID 04/08/23 01/12/24 tablet,extended release 24 hr torsemide 20 mg tablet 20 mg PO BID 04/08/23 01/12/24 acetaminophen 325 mg tablet 650 mg PO Q6H PRN Pain, Mild 06/19/23 01/12/24 acyclovir 5 % topical ointment 1 applic topical Q4-5H PRN Rash 06/19/23 01/12/24 amiodarone 200 mg tablet 200 mg PO DAILY 06/19/23 01/12/24 clotrimazole 10 mg aneesh 10 mg PO 5XD 06/19/23 01/12/24 diclofenac sodium 1 % topical gel 4 g topical QID PRN JOINT PAIN 06/19/23 01/12/24 ipratropium 0.5 mg-albuterol 3 mg 3 ml inhalation BID 06/19/23 01/12/24 (2.5 mg base)/3 mL nebulization soln miconazole nitrate 2 % topical 1 applic topical QID PRN Rash 06/19/23 01/12/24 powder naloxone 4 mg/actuation nasal spray 1 spray intranasal NOW PRN OVERDOSE 06/19/23 01/12/24 ondansetron HCl 4 mg tablet 4 mg PO Q8H PRN Nausea And Vomiting 06/19/23 01/12/24 oxymetazoline 0.05 % nasal drops 1 drp intranasal BID 06/19/23 01/12/24 potassium chloride 20 mEq/15 mL 10 meq PO BIDWM 06/19/23 01/12/24 oral liquid spironolactone 50 mg tablet 50 mg PO DAILY 01/12/24 01/12/24 Previous Rx's Medication Instructions Recorded verio reflect glucometer #1 ea 01/28/20 insulin syringe-needle U-100 0.5 #100 ea 03/30/20 mL 31 gauge x 5/16 (BD Insulin Syringe Ultra-Fine) metformin 1,000 mg tablet 1,000 mg PO BID #180 tabs 09/03/20 fentanyl 25 mcg/hr transdermal 1 patch transdermal Q72H PRN pain 02/05/22 patch (scale score 1-3) #5 ea aluminum-mag hydroxide-simethicone 30 ml PO Q6HR PRN Dyspepsia #355 mL 08/28/22 200 mg-200 mg-20 mg/5 mL oral susp (Mag-Al Plus) calcium carbonate 1,000 mg (5 x 200 mg calcium (500 08/28/22 mg)) PO Q4HR PRN Dyspepsia #60 tabs docusate sodium 100 mg capsule 100 mg PO BID #60 caps 08/28/22 sennosides 8.6 mg tablet (senna) 17.2 mg (2 x 8.6 mg) PO BEDTIME 08/28/22 #60 tabs Allergies Allergy/AdvReac Type Severity Reaction Status Date / Time piperacillin [From Zosyn] Allergy Severe Rash Verified 01/28/24 11:26 tazobactam [From Zosyn] Allergy Severe Rash Verified 01/28/24 11:26 hydroxychloroquine Allergy Unknown Verified 01/28/24 11:26 [HYDROXYCHLOROQUINE] Sulfa (Sulfonamide Allergy Verified 01/28/24 11:26 Antibiotics) cefepime AdvReac Intermediate pruritis Verified 01/28/24 11:26 promethazine [From Phenergan] AdvReac Agitated Verified 01/28/24 11:26 Review of Systems <Harjeet Alcaraz DO - Last Filed: 01/29/24 07:04> Review of Systems Narrative: General: Elevated INR, Denies fever, chills, weight loss HEENT: Denies headache, eye drainage, eye irritation, head trauma, sore throat, voice change Cardiovascular: Denies any chest pain, palpitations, shortness of breath, tachycardia Respiratory: Denies any shortness of breath, cough, wheeze, stridor GI/: Denies any abdominal pain, nausea, vomiting, diarrhea, bright red blood per rectum, melanotic stools, urinary frequency, urinary retention, dysuria, hematuria MSK: Denies any joint pain, muscle pains, swelling Skin: Denies any rashes, lesions, discoloration Neuro: Denies any headache, lightheadedness, dizziness, fainting, weakness Psych: Denies SI/HI Patient History <Harjeet Alcaraz DO - Last Filed: 01/29/24 07:04> Medical History Anticoagulated Pneumonia Wears glasses Eczema Osteoarthritis Bronchiectasis (~2006) Sleep apnea Asthma (~1959) Abnormal chest xray (~1979) Restless leg syndrome Migraines (~1964) Shoulder pain (~03/2018) Osteopenia Degenerative joint disease of spine (~2001) Foot pain Fibromyalgia Chronic back pain Cervical spine disease Ankle pain MRSA (methicillin resistant Staphylococcus aureus) (~2002) Anemia Hoarseness Recurrent sinusitis (~1970) Colon polyps (~2015) Hypothyroidism Diabetes mellitus, type II (~2009) Hypertension Hyperlipidemia Nail bed carcinoma Pneumonia Surgical History Anesthesia History of thumb surgery History of carpal tunnel release History of spinal fusion (~2012) History of laminectomy (~2002) History of section History of cataract removal with insertion of prosthetic lens (~2014) Family History Father Stroke Mother Hypertension Brother Cerebral aneurysm Prostate cancer Diabetes mellitus Hypertension Stroke Brother Arthritis Hyperlipidemia Hypertension Sister History of kidney cancer Hypertension Grandfather Cancer Grandmother Cancer Other Family history non-contributory Social History marital status: household members: spouse lives independently: Yes occupational status: previously employed Smoking Status: Never smoker alcohol intake: current substance use type: does not use Smoking Status: Never smoker alcohol intake frequency: holidays/special occasions only Substance Use Type: does not use Exam <Harjeet Alcaraz, - Last Filed: 01/29/24 07:04> Narrative Exam Narrative: General: Cooperative, comfortable, well-developed, not in acute distress HEENT: Normocephalic, atraumatic, PERRLA, normal sclera, eyelids normal, Neck: Active full range of motion, atraumatic Chest: Normal to inspection, negative crepitus, no overlying erythema ecchymosis Respiratory: At baseline, chronically on nasal cannula, Normal respiratory effort, not in acute respiratory distress, clear to auscultation bilaterally negative cough, wheeze, tachypnea, rhonchi, rales Cardiology: Regular rate rhythm negative gallop, murmur, rubs GI/: Normal to inspection, soft, nonrigid, no tenderness to palpation, exam deferred MSK: Full range of active range of motion of all 4 extremities, atraumatic Skin: No rashes lesions noted Neuro: Alert awake oriented x3, moves all 4 extremities spontaneously, cranial nerves intact, able to answer all questions appropriately follows commands appropriately Psych: Cooperative, negative suicidal or homicidal ideations Initial Vital Signs Initial Vital Signs: Vital Signs Temperature 98.0 F 01/28/24 11:27 Pulse Rate 58 L 01/28/24 11:27 Respiratory Rate 16 01/28/24 11:27 Blood Pressure 115/80 01/28/24 11:27 Pulse Oximetry 92 01/28/24 11:27 Oxygen Delivery Method Nasal Cannula 01/28/24 11:27 Oxygen Flow Rate 2 01/28/24 11:27 <Lalitha Gracia DO - Last Filed: 01/28/24 23:17> Initial Vital Signs Initial Vital Signs: Vital Signs Temperature 98.0 F 01/28/24 11:27 Pulse Rate 58 L 01/28/24 11:27 Respiratory Rate 16 01/28/24 11:27 Blood Pressure 115/80 01/28/24 11:27 Pulse Oximetry 92 01/28/24 11:27 Oxygen Delivery Method Nasal Cannula 01/28/24 11:27 Oxygen Flow Rate 2 01/28/24 11:27 Course <Harjeet Alcaraz DO - Last Filed: 01/29/24 07:04> Orders Ordered: Discontinued Medications Dextrose (Dextrose 50 % In Water 25 Gm/50 Ml Syringe) 25 gm IV NOW ONE Stop: 01/28/24 12:43 Last Admin: 01/28/24 13:53 Dose: 25 gm Documented By: SANTIAGO Dextrose (Dextrose 50 % In Water 25 Gm/50 Ml Syringe) 25 gm IV NOW ONE Stop: 01/28/24 14:59 Last Admin: 01/28/24 15:02 Dose: 25 gm Documented By: SPF Dextrose (Dextrose 50 % In Water 25 Gm/50 Ml Syringe) 25 gm IV NOW ONE Stop: 01/28/24 16:59 Last Admin: 01/28/24 17:00 Dose: 25 gm Documented By: SPF Calcium Gluconate 4.65 meq/ (Sodium Chloride) 60 mls @ 180 mls/hr IV NOW ONE Stop: 01/28/24 13:01 Last Infusion: 01/28/24 13:53 Dose: Infused Documented By: Admin: 01/28/24 13:32 Dose: 180 mls/hr Documented By: SB Sodium Chloride (Normal Saline 0.9%) 1,000 mls @ 1,000 mls/hr IV BOLUS ONE Stop: 01/28/24 13:48 Last Infusion: 01/28/24 14:40 Dose: Infused Documented By: Admin: 01/28/24 13:32 Dose: 1,000 mls/hr Documented By: SANTIAGO Vancomycin HCl (Vancomycin) 1,000 mg in 200 mls @ 200 mls/hr IV NOW ONE Stop: 01/28/24 14:49 Last Infusion: 01/28/24 17:00 Dose: Infused Documented By: Admin: 01/28/24 15:38 Dose: 200 mls/hr Documented By: CARLOS Meropenem 500 mg/ Sodium (Chloride) 100 mls @ 200 mls/hr IV NOW ONE Stop: 01/28/24 13:52 Last Infusion: 01/28/24 15:29 Dose: Infused Documented By: Admin: 01/28/24 14:45 Dose: 200 mls/hr Documented By: CARLOS Sodium Chloride (Normal Saline 0.9%) 1,000 mls @ 500 mls/hr IV BOLUS ONE Stop: 01/28/24 16:57 Last Admin: 01/28/24 15:04 Dose: Not Given Documented By: CARLOS Sodium Chloride (Normal Saline 0.9%) 500 mls @ 1,000 mls/hr IV BOLUS ONE Stop: 01/28/24 15:34 Last Infusion: 01/28/24 16:15 Dose: Infused Documented By: Admin: 01/28/24 15:06 Dose: 1,000 mls/hr Documented By: CARLOS Insulin Human Regular (Insulin Regular 100 Unit/Ml 3 Ml Vial) 10 unit IV NOW ONE Stop: 01/28/24 12:43 Last Admin: 01/28/24 13:59 Dose: 10 unit Documented By: SANTIAGO Co-signed By: GERTRUDIS Ondansetron HCl (Ondansetron 4 Mg/2 Ml Inj) 4 mg IV NOW ONE Stop: 01/28/24 19:23 Last Admin: 01/28/24 19:26 Dose: 4 mg Documented By: PADMINI Vital Signs Vital signs: Vital Signs - 8 hr 01/28/24 15:20 01/28/24 15:20 01/28/24 15:25 Pulse Rate 65 65 Respiratory Rate 18 Blood Pressure 120/62 Pulse Oximetry 95 95 Oxygen Delivery Method Nasal Cannula Oxygen Flow Rate 2 01/28/24 15:25 01/28/24 15:30 01/28/24 15:30 Pulse Rate 65 Respiratory Rate 23 Blood Pressure 101/55 L 114/61 Pulse Oximetry 94 Oxygen Delivery Method Nasal Cannula Oxygen Flow Rate 2 01/28/24 15:35 01/28/24 15:35 01/28/24 15:40 Pulse Rate 65 Respiratory Rate 19 Blood Pressure 105/58 L 106/55 L Pulse Oximetry 94 Oxygen Delivery Method Nasal Cannula Oxygen Flow Rate 2 01/28/24 15:40 01/28/24 15:45 01/28/24 15:50 Pulse Rate 65 66 Respiratory Rate 17 Blood Pressure 108/59 L Pulse Oximetry 94 95 Oxygen Delivery Method Nasal Cannula Oxygen Flow Rate 2 01/28/24 15:50 01/28/24 15:55 01/28/24 15:55 Pulse Rate 66 66 Respiratory Rate 23 16 Blood Pressure 111/60 Pulse Oximetry 95 96 Oxygen Delivery Method Oxygen Flow Rate 01/28/24 16:00 01/28/24 16:00 01/28/24 16:05 Pulse Rate 66 65 Respiratory Rate 22 16 Blood Pressure 114/59 L Pulse Oximetry 96 98 Oxygen Delivery Method Oxygen Flow Rate 01/28/24 16:05 01/28/24 16:10 01/28/24 16:10 Pulse Rate 65 Respiratory Rate Blood Pressure 111/59 L 106/58 L Pulse Oximetry 95 Oxygen Delivery Method Nasal Cannula Oxygen Flow Rate 2 01/28/24 16:15 01/28/24 16:15 01/28/24 16:20 Pulse Rate 65 66 Respiratory Rate 19 Blood Pressure 109/57 L Pulse Oximetry Oxygen Delivery Method Oxygen Flow Rate 01/28/24 16:20 01/28/24 16:25 01/28/24 16:25 Pulse Rate 66 Respiratory Rate 22 Blood Pressure 112/61 115/56 L Pulse Oximetry Oxygen Delivery Method Oxygen Flow Rate 01/28/24 16:30 01/28/24 16:30 01/28/24 16:35 Pulse Rate 66 65 Respiratory Rate 25 H 24 Blood Pressure 106/58 L Pulse Oximetry 95 94 Oxygen Delivery Method Oxygen Flow Rate 01/28/24 16:40 01/28/24 16:45 01/28/24 16:45 Pulse Rate 66 66 Respiratory Rate Blood Pressure 107/81 Pulse Oximetry 95 95 Oxygen Delivery Method Nasal Cannula Oxygen Flow Rate 2 01/28/24 16:50 01/28/24 16:55 01/28/24 17:00 Pulse Rate 67 67 69 Respiratory Rate 29 H 25 H Blood Pressure Pulse Oximetry 95 94 94 Oxygen Delivery Method Nasal Cannula Oxygen Flow Rate 2 01/28/24 17:05 01/28/24 17:10 01/28/24 17:15 Pulse Rate 76 68 68 Respiratory Rate 24 20 Blood Pressure Pulse Oximetry 91 92 96 Oxygen Delivery Method Nasal Cannula Oxygen Flow Rate 2 01/28/24 17:20 01/28/24 17:25 01/28/24 17:30 Pulse Rate 69 67 67 Respiratory Rate 26 H 21 22 Blood Pressure Pulse Oximetry 98 95 95 Oxygen Delivery Method Oxygen Flow Rate 01/28/24 17:35 01/28/24 17:40 01/28/24 17:45 Pulse Rate 68 67 67 Respiratory Rate 24 27 H 26 H Blood Pressure Pulse Oximetry 94 95 95 Oxygen Delivery Method Oxygen Flow Rate 01/28/24 17:50 01/28/24 17:55 01/28/24 18:00 Pulse Rate 68 67 67 Respiratory Rate 25 H 25 H 22 Blood Pressure Pulse Oximetry 95 96 95 Oxygen Delivery Method Oxygen Flow Rate 01/28/24 18:05 01/28/24 18:10 01/28/24 18:15 Pulse Rate 67 54 L 55 L Respiratory Rate 25 H 24 Blood Pressure Pulse Oximetry 96 95 96 Oxygen Delivery Method Oxygen Flow Rate 01/28/24 18:20 01/28/24 18:21 01/28/24 18:21 Pulse Rate 56 L 55 L Respiratory Rate Blood Pressure 96/55 L Pulse Oximetry 96 95 Oxygen Delivery Method Oxygen Flow Rate 01/28/24 18:25 01/28/24 18:30 01/28/24 18:30 Pulse Rate 55 L 55 L Respiratory Rate 17 21 Blood Pressure 109/54 L Pulse Oximetry 95 96 Oxygen Delivery Method Nasal Cannula Oxygen Flow Rate 2 01/28/24 18:35 01/28/24 18:40 01/28/24 18:45 Pulse Rate 55 L 55 L Respiratory Rate 26 H 25 H Blood Pressure 112/53 L Pulse Oximetry 97 97 Oxygen Delivery Method Nasal Cannula Oxygen Flow Rate 2 01/28/24 18:45 01/28/24 18:50 01/28/24 18:55 Pulse Rate 56 L 55 L 59 L Respiratory Rate 26 H 26 H 24 Blood Pressure Pulse Oximetry 97 98 93 Oxygen Delivery Method Nasal Cannula Oxygen Flow Rate 01/28/24 19:00 01/28/24 19:01 01/28/24 19:01 Pulse Rate 64 59 L Respiratory Rate 21 Blood Pressure 110/65 Pulse Oximetry Oxygen Delivery Method Oxygen Flow Rate 01/28/24 19:05 Pulse Rate 67 Respiratory Rate 24 Blood Pressure Pulse Oximetry 96 Oxygen Delivery Method Nasal Cannula Oxygen Flow Rate 2 <Lalitha Gracia, DO - Last Filed: 01/28/24 23:17> Orders Ordered: Discontinued Medications Dextrose (Dextrose 50 % In Water 25 Gm/50 Ml Syringe) 25 gm IV NOW ONE Stop: 01/28/24 12:43 Last Admin: 01/28/24 13:53 Dose: 25 gm Documented By: SANTIAGO Dextrose (Dextrose 50 % In Water 25 Gm/50 Ml Syringe) 25 gm IV NOW ONE Stop: 01/28/24 14:59 Last Admin: 01/28/24 15:02 Dose: 25 gm Documented By: CARLOS Dextrose (Dextrose 50 % In Water 25 Gm/50 Ml Syringe) 25 gm IV NOW ONE Stop: 01/28/24 16:59 Last Admin: 01/28/24 17:00 Dose: 25 gm Documented By: CARLOS Calcium Gluconate 4.65 meq/ (Sodium Chloride) 60 mls @ 180 mls/hr IV NOW ONE Stop: 01/28/24 13:01 Last Infusion: 01/28/24 13:53 Dose: Infused Documented By: Admin: 01/28/24 13:32 Dose: 180 mls/hr Documented By: SANTIAGO Sodium Chloride (Normal Saline 0.9%) 1,000 mls @ 1,000 mls/hr IV BOLUS ONE Stop: 01/28/24 13:48 Last Infusion: 01/28/24 14:40 Dose: Infused Documented By: Admin: 01/28/24 13:32 Dose: 1,000 mls/hr Documented By: SB Vancomycin HCl (Vancomycin) 1,000 mg in 200 mls @ 200 mls/hr IV NOW ONE Stop: 01/28/24 14:49 Last Infusion: 01/28/24 17:00 Dose: Infused Documented By: Admin: 01/28/24 15:38 Dose: 200 mls/hr Documented By: CARLOS Meropenem 500 mg/ Sodium (Chloride) 100 mls @ 200 mls/hr IV NOW ONE Stop: 01/28/24 13:52 Last Infusion: 01/28/24 15:29 Dose: Infused Documented By: Admin: 01/28/24 14:45 Dose: 200 mls/hr Documented By: CARLOS Sodium Chloride (Normal Saline 0.9%) 1,000 mls @ 500 mls/hr IV BOLUS ONE Stop: 01/28/24 16:57 Last Admin: 01/28/24 15:04 Dose: Not Given Documented By: CARLOS Sodium Chloride (Normal Saline 0.9%) 500 mls @ 1,000 mls/hr IV BOLUS ONE Stop: 01/28/24 15:34 Last Infusion: 01/28/24 16:15 Dose: Infused Documented By: Admin: 01/28/24 15:06 Dose: 1,000 mls/hr Documented By: CARLOS Insulin Human Regular (Insulin Regular 100 Unit/Ml 3 Ml Vial) 10 unit IV NOW ONE Stop: 01/28/24 12:43 Last Admin: 01/28/24 13:59 Dose: 10 unit Documented By: SANTIAGO Co-signed By: GERTRUDIS Ondansetron HCl (Ondansetron 4 Mg/2 Ml Inj) 4 mg IV NOW ONE Stop: 01/28/24 19:23 Last Admin: 01/28/24 19:26 Dose: 4 mg Documented By: PADMINI Vital Signs Vital signs: Vital Signs - 8 hr 01/28/24 15:20 01/28/24 15:20 01/28/24 15:25 Pulse Rate 65 65 Respiratory Rate 18 Blood Pressure 120/62 Pulse Oximetry 95 95 Oxygen Delivery Method Nasal Cannula Oxygen Flow Rate 2 01/28/24 15:25 01/28/24 15:30 01/28/24 15:30 Pulse Rate 65 Respiratory Rate 23 Blood Pressure 101/55 L 114/61 Pulse Oximetry 94 Oxygen Delivery Method Nasal Cannula Oxygen Flow Rate 2 01/28/24 15:35 01/28/24 15:35 01/28/24 15:40 Pulse Rate 65 Respiratory Rate 19 Blood Pressure 105/58 L 106/55 L Pulse Oximetry 94 Oxygen Delivery Method Nasal Cannula Oxygen Flow Rate 2 01/28/24 15:40 01/28/24 15:45 01/28/24 15:50 Pulse Rate 65 66 Respiratory Rate 17 Blood Pressure 108/59 L Pulse Oximetry 94 95 Oxygen Delivery Method Nasal Cannula Oxygen Flow Rate 2 01/28/24 15:50 01/28/24 15:55 01/28/24 15:55 Pulse Rate 66 66 Respiratory Rate 23 16 Blood Pressure 111/60 Pulse Oximetry 95 96 Oxygen Delivery Method Oxygen Flow Rate 01/28/24 16:00 01/28/24 16:00 01/28/24 16:05 Pulse Rate 66 65 Respiratory Rate 22 16 Blood Pressure 114/59 L Pulse Oximetry 96 98 Oxygen Delivery Method Oxygen Flow Rate 01/28/24 16:05 01/28/24 16:10 01/28/24 16:10 Pulse Rate 65 Respiratory Rate Blood Pressure 111/59 L 106/58 L Pulse Oximetry 95 Oxygen Delivery Method Nasal Cannula Oxygen Flow Rate 2 01/28/24 16:15 01/28/24 16:15 01/28/24 16:20 Pulse Rate 65 66 Respiratory Rate 19 Blood Pressure 109/57 L Pulse Oximetry Oxygen Delivery Method Oxygen Flow Rate 01/28/24 16:20 01/28/24 16:25 01/28/24 16:25 Pulse Rate 66 Respiratory Rate 22 Blood Pressure 112/61 115/56 L Pulse Oximetry Oxygen Delivery Method Oxygen Flow Rate 01/28/24 16:30 01/28/24 16:30 01/28/24 16:35 Pulse Rate 66 65 Respiratory Rate 25 H 24 Blood Pressure 106/58 L Pulse Oximetry 95 94 Oxygen Delivery Method Oxygen Flow Rate 01/28/24 16:40 01/28/24 16:45 01/28/24 16:45 Pulse Rate 66 66 Respiratory Rate Blood Pressure 107/81 Pulse Oximetry 95 95 Oxygen Delivery Method Nasal Cannula Oxygen Flow Rate 2 01/28/24 16:50 01/28/24 16:55 01/28/24 17:00 Pulse Rate 67 67 69 Respiratory Rate 29 H 25 H Blood Pressure Pulse Oximetry 95 94 94 Oxygen Delivery Method Nasal Cannula Oxygen Flow Rate 2 01/28/24 17:05 01/28/24 17:10 01/28/24 17:15 Pulse Rate 76 68 68 Respiratory Rate 24 20 Blood Pressure Pulse Oximetry 91 92 96 Oxygen Delivery Method Nasal Cannula Oxygen Flow Rate 2 01/28/24 17:20 01/28/24 17:25 01/28/24 17:30 Pulse Rate 69 67 67 Respiratory Rate 26 H 21 22 Blood Pressure Pulse Oximetry 98 95 95 Oxygen Delivery Method Oxygen Flow Rate 01/28/24 17:35 01/28/24 17:40 01/28/24 17:45 Pulse Rate 68 67 67 Respiratory Rate 24 27 H 26 H Blood Pressure Pulse Oximetry 94 95 95 Oxygen Delivery Method Oxygen Flow Rate 01/28/24 17:50 01/28/24 17:55 01/28/24 18:00 Pulse Rate 68 67 67 Respiratory Rate 25 H 25 H 22 Blood Pressure Pulse Oximetry 95 96 95 Oxygen Delivery Method Oxygen Flow Rate 01/28/24 18:05 01/28/24 18:10 01/28/24 18:15 Pulse Rate 67 54 L 55 L Respiratory Rate 25 H 24 Blood Pressure Pulse Oximetry 96 95 96 Oxygen Delivery Method Oxygen Flow Rate 01/28/24 18:20 01/28/24 18:21 01/28/24 18:21 Pulse Rate 56 L 55 L Respiratory Rate Blood Pressure 96/55 L Pulse Oximetry 96 95 Oxygen Delivery Method Oxygen Flow Rate 01/28/24 18:25 01/28/24 18:30 01/28/24 18:30 Pulse Rate 55 L 55 L Respiratory Rate 17 21 Blood Pressure 109/54 L Pulse Oximetry 95 96 Oxygen Delivery Method Nasal Cannula Oxygen Flow Rate 2 01/28/24 18:35 01/28/24 18:40 01/28/24 18:45 Pulse Rate 55 L 55 L Respiratory Rate 26 H 25 H Blood Pressure 112/53 L Pulse Oximetry 97 97 Oxygen Delivery Method Nasal Cannula Oxygen Flow Rate 2 01/28/24 18:45 01/28/24 18:50 01/28/24 18:55 Pulse Rate 56 L 55 L 59 L Respiratory Rate 26 H 26 H 24 Blood Pressure Pulse Oximetry 97 98 93 Oxygen Delivery Method Nasal Cannula Oxygen Flow Rate 01/28/24 19:00 01/28/24 19:01 01/28/24 19:01 Pulse Rate 64 59 L Respiratory Rate 21 Blood Pressure 110/65 Pulse Oximetry Oxygen Delivery Method Oxygen Flow Rate 01/28/24 19:05 Pulse Rate 67 Respiratory Rate 24 Blood Pressure Pulse Oximetry 96 Oxygen Delivery Method Nasal Cannula Oxygen Flow Rate 2 MDM - Recheck/Abnormal Lab/Rx <Harjeet Alcaraz DO - Last Filed: 01/29/24 07:04> Differential Diagnosis Differential diagnosis: Likely warfarin-induced coagulopathy and other (Sepsis, pneumonia, urinary tract infection, electrolyte abnormality,) Lab Data 01/28/24 11:58 01/28/24 18:00 Labs: Lab Results 01/28/24 01/28/24 01/28/24 Range/Units 11:58 13:05 13:17 WBC 16.6 H (4.5-11.0) X10^3/uL RBC 4.31 (4.0-5.2) X10^6/uL Hgb 12.9 (12.0-16.0) g/dL Hct 39.5 (36-46) % MCV 91.6 (80-100) fL MCH 29.9 (26-34) PG MCHC 32.6 (30-36) % RDW 16.4 H (11.6-14.8) % Plt Count 313 (150-400) X10^3/uL Neut % (Auto) 82.9 H (50-75) % Lymph % (Auto) 9.0 L (25-40) % [place] % (Auto) 7.7 (3-14) % Eos % (Auto) 0.0 L (2-4) % Baso % (Auto) 0.4 (0-2) % Neut # (Auto) 78538 H (3214-8233) /uL Lymph # (Auto) 1500 (1447-1635) /uL [place] # (Auto) 1300 H (0-900) /uL Eos # (Auto) 0 (0-450) /uL Baso # (Auto) 100 (0-100) /uL PT 99.6 H (9.4-12.5) SECONDS INR 8.5 H* (0.9-1.3) APTT 88 H* (25.1-36.5) SECONDS Sodium 136 L (137-145) mmol/L Potassium 5.7 H (3.4-5.1) mmol/L Chloride 89 L (98-107) mmol/L Carbon Dioxide 37 H (22-32) mmol/L BUN 77 H (7-17) mg/dL Creatinine 2.71 H (0.52-1.04) mg/dL Estimated GFR 18 L (>60) mL/min BUN/Creatinine Ratio 28.4 H (6-22) Glucose 100 (80-110) mg/dL Lactate 4.2 H* (0.7-2.1) mmol/L Calcium 9.8 (8.4-10.2) mg/dL Magnesium 3.0 H (1.6-2.3) mg/dL Total Creatine Kinase 23 L (30-135) U/L Troponin I < 0.012 (0.01-0.034) ng/mL Urine RBC (0-5/HPF) Urine WBC (0-5/HPF) Ur Squamous Epith Cells (0-5/HPF) Urine Bacteria (None) Urine Mucus (Negative) Ur Culture Indicated? Vol Urine Centrifuged SARS-CoV-2 (PCR) Positive H (Negative) Influenza A (RT-PCR) Flu a negative (NEGATIVE) Influenza B (RT-PCR) Flu b negative (NEGATIVE) RSV (PCR) Negative (Negative) 01/28/24 01/28/24 01/28/24 Range/Units 14:40 15:05 18:00 WBC (4.5-11.0) X10^3/uL RBC (4.0-5.2) X10^6/uL Hgb (12.0-16.0) g/dL Hct (36-46) % MCV (80-100) fL MCH (26-34) PG MCHC (30-36) % RDW (11.6-14.8) % Plt Count (150-400) X10^3/uL Neut % (Auto) (50-75) % Lymph % (Auto) (25-40) % [place] % (Auto) (3-14) % Eos % (Auto) (2-4) % Baso % (Auto) (0-2) % Neut # (Auto) (3880-7709) /uL Lymph # (Auto) (9640-4063) /uL [place] # (Auto) (0-900) /uL Eos # (Auto) (0-450) /uL Baso # (Auto) (0-100) /uL PT (9.4-12.5) SECONDS INR (0.9-1.3) APTT (25.1-36.5) SECONDS Sodium 134 L (137-145) mmol/L Potassium 5.2 H (3.4-5.1) mmol/L Chloride 91 L (98-107) mmol/L Carbon Dioxide 37 H (22-32) mmol/L BUN 74 H (7-17) mg/dL Creatinine 2.34 H (0.52-1.04) mg/dL Estimated GFR 21 L (>60) mL/min BUN/Creatinine Ratio 31.6 H (6-22) Glucose 117 H (80-110) mg/dL Lactate 2.9 H (0.7-2.1) mmol/L Calcium 9.1 (8.4-10.2) mg/dL Magnesium (1.6-2.3) mg/dL Total Creatine Kinase (30-135) U/L Troponin I (0.01-0.034) ng/mL Urine RBC 0-1/hpf (0-5/HPF) Urine WBC 10-30/hpf H (0-5/HPF) Ur Squamous Epith Cells 0-1 /hpf (0-5/HPF) Urine Bacteria Moderate (10-30) H (None) Urine Mucus 1+ H (Negative) Ur Culture Indicated? Specimen cultured Vol Urine Centrifuged 10ml (spun) SARS-CoV-2 (PCR) (Negative) Influenza A (RT-PCR) (NEGATIVE) Influenza B (RT-PCR) (NEGATIVE) RSV (PCR) (Negative) Point of Care Testing Glucose POC 106 Urine Dip Bedside Urine Glucose Negative Bedside Urine Bilirubin - Negative Bedside Urine Ketone - Negative Urine Specific [place] 1.010 Bedside Urine Occult Blood +/- Bedside Urine pH 7.0 Bedside Urine Protein +/- 15 Bedside Urine Urobilinogen - Negative Bedside Urine Nitrite - Negative Bedside Urine Leukocytes ++ 125 Esterase MDM Narrative Medical decision making narrative: Patient is a 73-year-old female 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 Did not take any additional medications. She has not complaining of any symptoms at this time no trauma no falls 1247: Patient's lab work remarkable for leukocytosis of 16.6, INR 8.5, potassium 5.7, creatinine 2.71 elevated from baseline, we will treat for hyperkalemia as well as obtain CT chest abdomen pelvis without contrast to rule out any septic causes. Patient will require transfer for possible need for dialysis given elevated potassium in a new setting of elevated creatinine. 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 1640: Discussed case with Dr. Ortega, who accepts the admission, just awaiting bed placement. Patient to be sent to [facility] for admission Dr. Gracia-patient signed out to me by . Awaiting for transfer. She has been accepted at [facility]. She has UTI sepsis, elevated INR. She has been having hypoglycemia after she was given insulin for hyperkalemia. She has received multiple doses of D50. No reason why she can not eat so she is given food. Repeat CMP does show improvement of hyperkalemia to 5.2 creatinine is also improving 2.34. <Lalitha Gracia, - Last Filed: 01/28/24 23:17> Lab Data Labs: Lab Results 01/28/24 01/28/24 01/28/24 Range/Units 11:58 13:05 13:17 WBC 16.6 H (4.5-11.0) X10^3/uL RBC 4.31 (4.0-5.2) X10^6/uL Hgb 12.9 (12.0-16.0) g/dL Hct 39.5 (36-46) % MCV 91.6 (80-100) fL MCH 29.9 (26-34) PG MCHC 32.6 (30-36) % RDW 16.4 H (11.6-14.8) % Plt Count 313 (150-400) X10^3/uL Neut % (Auto) 82.9 H (50-75) % Lymph % (Auto) 9.0 L (25-40) % [place] % (Auto) 7.7 (3-14) % Eos % (Auto) 0.0 L (2-4) % Baso % (Auto) 0.4 (0-2) % Neut # (Auto) 90450 H (6620-5490) /uL Lymph # (Auto) 1500 (5051-4723) /uL [place] # (Auto) 1300 H (0-900) /uL Eos # (Auto) 0 (0-450) /uL Baso # (Auto) 100 (0-100) /uL PT 99.6 H (9.4-12.5) SECONDS INR 8.5 H* (0.9-1.3) APTT 88 H* (25.1-36.5) SECONDS Sodium 136 L (137-145) mmol/L Potassium 5.7 H (3.4-5.1) mmol/L Chloride 89 L (98-107) mmol/L Carbon Dioxide 37 H (22-32) mmol/L BUN 77 H (7-17) mg/dL Creatinine 2.71 H (0.52-1.04) mg/dL Estimated GFR 18 L (>60) mL/min BUN/Creatinine Ratio 28.4 H (6-22) Glucose 100 (80-110) mg/dL Lactate 4.2 H* (0.7-2.1) mmol/L Calcium 9.8 (8.4-10.2) mg/dL Magnesium 3.0 H (1.6-2.3) mg/dL Total Creatine Kinase 23 L (30-135) U/L Troponin I < 0.012 (0.01-0.034) ng/mL Urine RBC (0-5/HPF) Urine WBC (0-5/HPF) Ur Squamous Epith Cells (0-5/HPF) Urine Bacteria (None) Urine Mucus (Negative) Ur Culture Indicated? Vol Urine Centrifuged SARS-CoV-2 (PCR) Positive H (Negative) Influenza A (RT-PCR) Flu a negative (NEGATIVE) Influenza B (RT-PCR) Flu b negative (NEGATIVE) RSV (PCR) Negative (Negative) 01/28/24 01/28/24 01/28/24 Range/Units 14:40 15:05 18:00 WBC (4.5-11.0) X10^3/uL RBC (4.0-5.2) X10^6/uL Hgb (12.0-16.0) g/dL Hct (36-46) % MCV (80-100) fL MCH (26-34) PG MCHC (30-36) % RDW (11.6-14.8) % Plt Count (150-400) X10^3/uL Neut % (Auto) (50-75) % Lymph % (Auto) (25-40) % [place] % (Auto) (3-14) % Eos % (Auto) (2-4) % Baso % (Auto) (0-2) % Neut # (Auto) (7692-3439) /uL Lymph # (Auto) (8128-1465) /uL [place] # (Auto) (0-900) /uL Eos # (Auto) (0-450) /uL Baso # (Auto) (0-100) /uL PT (9.4-12.5) SECONDS INR (0.9-1.3) APTT (25.1-36.5) SECONDS Sodium 134 L (137-145) mmol/L Potassium 5.2 H (3.4-5.1) mmol/L Chloride 91 L (98-107) mmol/L Carbon Dioxide 37 H (22-32) mmol/L BUN 74 H (7-17) mg/dL Creatinine 2.34 H (0.52-1.04) mg/dL Estimated GFR 21 L (>60) mL/min BUN/Creatinine Ratio 31.6 H (6-22) Glucose 117 H (80-110) mg/dL Lactate 2.9 H (0.7-2.1) mmol/L Calcium 9.1 (8.4-10.2) mg/dL Magnesium (1.6-2.3) mg/dL Total Creatine Kinase (30-135) U/L Troponin I (0.01-0.034) ng/mL Urine RBC 0-1/hpf (0-5/HPF) Urine WBC 10-30/hpf H (0-5/HPF) Ur Squamous Epith Cells 0-1 /hpf (0-5/HPF) Urine Bacteria Moderate (10-30) H (None) Urine Mucus 1+ H (Negative) Ur Culture Indicated? Specimen cultured Vol Urine Centrifuged 10ml (spun) SARS-CoV-2 (PCR) (Negative) Influenza A (RT-PCR) (NEGATIVE) Influenza B (RT-PCR) (NEGATIVE) RSV (PCR) (Negative) Point of Care Testing Glucose POC 106 Urine Dip Bedside Urine Glucose Negative Bedside Urine Bilirubin - Negative Bedside Urine Ketone - Negative Urine Specific [place] 1.010 Bedside Urine Occult Blood +/- Bedside Urine pH 7.0 Bedside Urine Protein +/- 15 Bedside Urine Urobilinogen - Negative Bedside Urine Nitrite - Negative Bedside Urine Leukocytes ++ 125 Esterase MDM Narrative Medical decision making narrative: Patient is a 73-year-old female 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 Did not take any additional medications. She has not complaining of any symptoms at this time no trauma no falls 1247: Patient's lab work remarkable for leukocytosis of 16.6, INR 8.5, potassium 5.7, creatinine 2.71 elevated from baseline, we will treat for hyperkalemia as well as obtain CT chest abdomen pelvis without contrast to rule out any septic causes. Patient will require transfer for possible need for dialysis given elevated potassium in a new setting of elevated creatinine. 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 1640: Discussed case with Dr. Ortega, Dr. Gracia-patient signed out to me by . Awaiting for transfer. She has been accepted at [facility]. She has UTI sepsis, elevated INR. She has been having hypoglycemia after she was given insulin for hyperkalemia. She has received multiple doses of D50. No reason why she can not eat so she is given food. Repeat CMP does show improvement of hyperkalemia to 5.2 creatinine is also improving 2.34. Discharge Plan Departure Patient Disposition: [facility] Clinical Impression: KETTY (acute kidney injury), Acute UTI, Acute hyperkalemia, COVID-19 Prescriptions: No Action polyethylene glycol 3350 [Miralax] 119 GM powder 17 gm PO DAILY PRN (Reason: Constipation) Qty: 0 (DME) insulin syringe-needle U-100 [BD Insulin Syringe Ultra-Fine] 0.5 mL 31 gauge x 5/16 syringe See Rx Instructions .ROUTE .MEDSUPPLY Qty: 100 1RF Rx Instructions: Use once a day as directed metformin 1,000 mg tablet 1,000 mg PO BID Qty: 180 0RF (DME) verio reflect glucometer Qty: 1 0RF Rx Instructions: As directed ferrous sulfate 325 mg (65 mg iron) tablet 325 mg PO BEDTIME tizanidine 4 mg capsule 4 mg PO QID PRN (Reason: Muscle Spasm) cholecalciferol (vitamin D3) 2,000 unit tablet 2,000 unit PO DAILY albuterol sulfate 90 mcg/actuation HFA aerosol inhaler 2 puff INHALATION Q4-6H PRN (Reason: Shortness Of Breath) lansoprazole [Prevacid 24Hr] 15 mg Capsule,Delayed Release(Dr/Ec) 30 mg PO BID fentanyl 25 mcg/hr patch 72 hour 1 patch transdermal Q72H PRN (Reason: pain (scale score 1-3)) Qty: 5 0RF Patient Comments: placed today at home omega-3 fatty acids Capsule 1,000 mg PO DAILY fluticasone propion-salmeterol [Advair Diskus] 500-50 mcg/dose Blister With Device 1 inh INHALATION Q12H Hizintra 15 g auto-injector 15 g SUBCUT QWEEK Rx Instructions: pt takes on Sundays. calcium carbonate 200 mg calcium (500 mg) Tablet,Chewable 1,000 mg PO Q4HR PRN (Reason: Dyspepsia) Qty: 60 0RF docusate sodium 100 mg Capsule 100 mg PO BID Qty: 60 0RF alum-mag hydroxide-simeth [Mag-Al Plus] 200-200-20 mg/5 mL Suspension 30 ml PO Q6HR PRN (Reason: Dyspepsia) Qty: 355 0RF sennosides [senna] 8.6 mg Tablet 17.2 mg PO BEDTIME Qty: 60 0RF metoprolol succinate 25 mg tablet extended release 24 hr 12.5 mg PO BID torsemide 20 mg tablet 20 mg PO BID magnesium oxide 400 mg magnesium Tablet 400 mg PO BID spironolactone 50 mg Tablet 50 mg PO DAILY sodium chloride 3 % Solution For Nebulization 3 ml INHALATION BID Rx Instructions: use w/ nebulizer 2 x daily montelukast [Singulair] 10 mg Tablet 10 mg PO BEDTIME Zyrtec 10 mg Capsule 10 mg PO DAILY atorvastatin 40 mg Tablet 40 mg PO BEDTIME levothyroxine 75 mcg Tablet 75 mcg PO QAM epinephrine [EpiPen] 0.3 mg/0.3 mL Auto-Injector 0.3 mg IM Q5-15M PRN (Reason: Allergic Reaction) Rx Instructions: do not exceed 3 doses per episode tiotropium bromide [Spiriva with HandiHaler] 18 mcg Capsule, W/Inhalation Device 1 cap INHALATION DAILY Rx Instructions: puncture 1 cap using device; one dose = 2 inhalations insulin glargine 100 unit/mL solution 20 unit SUBCUT QAM insulin lispro [Humalog KwikPen Insulin] 100 unit/mL insulin pen 4 - 8 unit SUBCUT TID Rx Instructions: SLIDING SCALE USED AT HOME. pramipexole 0.5 mg tablet 0.5 mg PO BEDTIME duloxetine 30 mg Capsule,Delayed Release(Dr/Ec) 30 mg PO DAILY guaifenesin [Mucinex] 1,200 mg Tablet Extended Release 12hr 1,200 mg PO BID prednisone 5 mg tablet 5 mg PO DAILY tcrqpzpuyc-gvyjyqlupaicy-zttt 50-325-40 mg Tablet 1 tab PO Q6H PRN (Reason: Migraine Headache) oxycodone 5 mg Capsule 15 mg PO Q6H PRN (Reason: Pain (Scale Score 7-10)) Fasenra 30 mg/mL Syringe 30 mg SUBCUT Q8W fentanyl 12 mcg/hr patch 72 hour 12 mcg transdermal SEEINSTR Patient Comments: apply 1 patch to CLEAN, DRY, AND INTACT SKIN every 72 hours Rx Instructions: Q72HR in addition to 25mcg patch warfarin 1 mg tablet 1 mg PO DAILY Rx Instructions: Patient's states dose has been around 0.5mg two days a week and 1mg all other days amiodarone 200 mg tablet 200 mg PO DAILY potassium chloride 20 mEq/15 mL liquid 10 meq PO BIDWM clotrimazole 10 mg aneesh 10 mg PO 5XD acetaminophen 325 mg Tablet 650 mg PO Q6H PRN (Reason: Pain, Mild) ondansetron HCl 4 mg tablet 4 mg PO Q8H PRN (Reason: Nausea And Vomiting) miconazole nitrate 2 % Powder 1 applic TOPICAL QID PRN (Reason: Rash) acyclovir 5 % Ointment 1 applic TOPICAL Q4-5H PRN (Reason: Rash) diclofenac sodium 1 % Gel 4 g TOPICAL QID PRN (Reason: JOINT PAIN) ipratropium-albuterol 0.5 mg-3 mg(2.5 mg base)/3 mL Solution For Nebulization 3 ml INHALATION BID oxymetazoline 0.05 % Drops 1 drp INTRANASAL BID naloxone 4 mg/actuation spray,non-aerosol 1 spray intranasal NOW PRN (Reason: OVERDOSE) Referrals: Karin Porter MD [Primary Care Provider] -
[2024-01-28 12:06] LABS: Add Manual Diff / Slide Review NO; Basophils Absolute Auto 100 /uL (0-100); Basophils Percent Auto 0.4 % (0-2); Eosinophils Absolute Auto 0 /uL (0-450); Hematocrit 39.5 % (36-46); Hemoglobin 12.9 g/dL (12.0-16.0); Lymphocytes Absolute Auto 1500 /uL (1100-4500); Mean Corpuscular HGB Conc 32.6 % (30-36); Mean Corpuscular Hemoglobin 29.9 PG (26-34); Mean Corpuscular Volume 91.6 fL (80-100); Monocytes Absolute Auto 1300 /uL (0-900); Monocytes Percent Auto 7.7 % (3-14); Neutrophils Absolute Auto 13800 /uL (1500-7000); Neutrophils Percent Auto 82.9 % (50-75); Platelet Count 313 X10^3/uL (150-400); Red Blood Cell Count 4.31 X10^6/uL (4.0-5.2); Red Cell Distribution Width 16.4 % (11.6-14.8); White Blood Cell Count 16.6 X10^3/uL (4.5-11.0)
[2024-01-28 12:13] LABS: Prothrombin Time 99.6 SECONDS (9.4-12.5)
[2024-01-28 12:16] LABS: BUN Creatinine Ratio 28.4 (6-22); Blood Urea Nitrogen 77 mg/dL (7-17); Calcium 9.8 mg/dL (8.4-10.2); Carbon Dioxide 37 mmol/L (22-32); Chloride 89 mmol/L (98-107); Estimated Glomerular Filt Rate 18 mL/min (>60); Glucose 100 mg/dL (80-110); HEMOLYSIS < 15 (0-50); Sodium 136 mmol/L (137-145)
[2024-01-28 12:24] LABS: Potassium 5.7 mmol/L (3.4-5.1)
[2024-01-28 12:41] LABS: INR 8.5 (0.9-1.3); PTT Partial Thromboplastin Tim 88 SECONDS (25.1-36.5)
--- NOTE | 2024-01-28 12:45 | DI.CT.S_ITS ---
PROCEDURE: CT CHEST ABD PEL WO CON INDICATIONS: sepsis TECHNIQUE: After the administration of oral contrast, 5 mm thick sections acquired from the lung apices to the symphysis pubis. 5 mm thick coronal and sagittal reformats acquired, with additional 7 mm coronal MIP reformats through the lungs. For radiation dose reduction, the following was used: automated exposure control, adjustment of mA and/or kV according to patient size. COMPARISON: [facility], CT, CT CHEST WO CON, 11/01/2023, 15:07. FINDINGS: Image quality: Diagnostic. CHEST: Lower Neck: No enlarged lymph nodes. Thyroid: No thyroid nodules which require sonographic follow up, per consensus guidelines. Axillae: No enlarged lymph nodes. Chest Wall: Unremarkable. Bones: Unremarkable. Lungs and Pleura: No pneumothorax or pleural effusions. No consolidation or suspicious nodules. Heart: Heart size is normal. No pericardial effusion. Thoracic Vessels: The aorta and pulmonary arteries demonstrate normal size. Mediastinum and [place]: No enlarged lymph nodes. Esophagus: No wall thickening. Minimal hiatal hernia. ABDOMEN: Liver: No solid mass. Gallbladder: Luminal stones without wall thickening. Biliary ducts: No biliary dilation. Pancreas: No ductal dilation. Spleen: Size is within normal limits. Adrenal Glands: No adrenal nodules. Kidneys and Ureters: No hydronephrosis. No solid mass. No complex renal cystic lesion which requires follow up. Stomach and Bowel: Normal colonic caliber, without significant wall thickening. Prominent colonic stool without obstruction. Peritoneum: No abnormal intraperitoneal fluid. No free air. Ventral Wall: Small hernia. Abdominal Nodes: No retroperitoneal or mesenteric adenopathy by size criteria. Vessels: Aorta and inferior vena cava are normal in size. IVC filter is incidentally noted. PELVIS: Pelvic Organs: Unremarkable. Bladder: Unremarkable. Pelvic Nodes: No enlarged lymph nodes. Miscellaneous: No inguinal hernias are seen. Bones: No aggressive osseous abnormality. IMPRESSION: No acute intra-abdominal or pelvic process. Moderate colonic stool. No obstruction. Cholelithiasis without cholecystitis. Dictated by: Melony Boss M.D. on 01/28/2024 at 13:59 Approved by: Melony Boss M.D. on 01/28/2024 at 14:15
[2024-01-28 13:01] LABS: Creatine Kinase 23 U/L (30-135)
[2024-01-28 13:13] LABS: Troponin I < 0.012 ng/mL (0.01-0.034)
[2024-01-28] MEDS: CALCIUM GLUCONATE 4.65 MEQ in SODIUM CHLORIDE 0.9% 50 ML 180 MEQ IV (13:32)
[2024-01-28] MEDS: SODIUM CHLORIDE 0.9% 1,000 ML 1000 ML IV (13:32)
[2024-01-28 13:50] LABS: Lactate (Lactic Acid) 4.2 mmol/L (0.7-2.1)
--- NOTE | 2024-01-28 13:50 | PC.NURSE ---
Pt placed on bedpan for urine sample. Pt's buttocks reddened. Skin blanches. Pt endorses some discomfort. Applied barrier cream to buttocks, placed into a clean brief with pure wix and repositioned patient .
[2024-01-28] MEDS: DEXTROSE 50 % IN WATER 25 GM/50 ML SYRINGE IV ×3 (13:53→17:00)
[2024-01-28] MEDS: INSULIN REGULAR 100 UNIT/ML 3 ML VIAL 10 UNIT IV (13:59)
[2024-01-28 14:13] LABS: Influenza A - CEPHEID Flu A NEGATIVE (NEGATIVE); Influenza B - CEPHEID Flu B NEGATIVE (NEGATIVE); Respiratory Syncytial Virus Negative (Negative)
[2024-01-28 14:41] LABS: COVID-19 CEPHEID 4-PLEX PCR POSITIVE (Negative)
[2024-01-28] MEDS: MEROPENEM 500 MG in SODIUM CHLORIDE 0.9% 100 ML 200 MG IV (14:45)
[2024-01-28 14:48] LABS: Reflexed Lactate in 2 Hours Y
[2024-01-28] MEDS: SODIUM CHLORIDE 0.9% 500 ML 1000 ML IV (15:06)
[2024-01-28 15:24] LABS: Lactate 2HR (Lactic Acid Rflx) 2.9 mmol/L (0.7-2.1)
[2024-01-28 15:28] LABS: Bacteria Urine Moderate (10-30); RBC Urine 0-1/HPF (0-5/HPF); Squamous Epithelial Cell Urine 0-1 /HPF (0-5/HPF); Urine Volume 10mL (spun); WBC Urine 10-30/HPF (0-5/HPF)
[2024-01-28 15:29] LABS: Culture Indicated Urine Specimen Cultured; Mucus Urine 1+ (Negative)
[2024-01-28] MEDS: VANCOMYCIN 1,000 MG/200 ML PIGGYBACK 200 MG IV (15:38)
[2024-01-28 18:21] LABS: BUN Creatinine Ratio 31.6 (6-22); Blood Urea Nitrogen 74 mg/dL (7-17); Calcium 9.1 mg/dL (8.4-10.2); Carbon Dioxide 37 mmol/L (22-32); Chloride 91 mmol/L (98-107); Estimated Glomerular Filt Rate 21 mL/min (>60); Glucose 117 mg/dL (80-110); HEMOLYSIS < 15 (0-50); Potassium 5.2 mmol/L (3.4-5.1); Sodium 134 mmol/L (137-145)
[2024-01-28] MEDS: ONDANSETRON 4 MG/2 ML INJ IV (19:26)
== END 2024-01-28 19:57 | disposition short-term general hospital (02) ==
PROVIDERS: Student in an Organized Health Care Education/Training Program; Emergency Provider Emergency Medicine; Family Provider Internal Medicine Infectious Disease; PCP Internal Medicine
DX: N17.9 Acute kidney failure, unspecified (principal); N39.0 Urinary tract infection, site not specified; E87.5 Hyperkalemia; U07.1 COVID-19; Z79.01 Long term (current) use of anticoagulants
CPT/HCPCS: 0241U; 36415; 71250; 74176; 80048; 81003; 81015; 82550; 82962; 83605; 83735; 84484; 85025; 85610; 85730; 87040; 87086; 96365; 96367; 96375; 99285; J0612; J2185; J2405

== ENCOUNTER 2024-03-14 16:24 | Inpatient (IN) | payer OTHER, SELFPAY ==
[2023-05-06 18:45] VITALS: PULSE 72; RESP 20; O2SAT 95
[2024-01-12 08:57] VITALS: BMI 36.7
[2024-03-14] VITALS (18 sets, daily range): BP systolic 100–168; BP diastolic 54–72; PULSE 56–72; RESP 14–34; TEMP 36.5–36.8; O2SAT 83–100; BMI 38.3; BMI 36.3
--- NOTE | 2024-03-14 16:44 | DI.RAD.S_ITS ---
PROCEDURE: XR CHEST 1V INDICATIONS: Shortness of breath TECHNIQUE: One view of the chest was acquired. COMPARISON: [facility], CR, XR CHEST 1V, 01/12/2024, 1:48. [facility], CR, XR CHEST 1V, 07/05/2023, 10:08. [facility], CR, XR CHEST 1V, 06/19/2023, 14:52. [facility], CR, XR CHEST 1V, 04/08/2023, 13:53. FINDINGS: Surgical changes and devices: Aortic valve graft in place. Lungs and pleura: Low lung volumes. Lungs are otherwise clear. No pleural effusions or pneumothorax. Mediastinum: Aortic vascular calcifications. Mediastinal contours otherwise appear normal. Heart size is normal. Bones and chest wall: No suspicious bony lesions. Overlying soft tissues appear unremarkable. IMPRESSION: No acute cardiothoracic process. Dictated by: Khris Thomas M.D. on 03/14/2024 at 17:31 Approved by: Khris Thomas M.D. on 03/14/2024 at 17:32
[2024-03-14 17:18] LABS: Prothrombin Time 22.6 SECONDS (9.4-12.5)
[2024-03-14 17:19] LABS: Add Manual Diff / Slide Review NO; Basophils Absolute Auto 100 /uL (0-100); Basophils Percent Auto 0.7 % (0-2); Eosinophils Absolute Auto 0 /uL (0-450); Hematocrit 37.3 % (36-46); Hemoglobin 12.1 g/dL (12.0-16.0); Lymphocytes Absolute Auto 800 /uL (1100-4500); Lymphocytes Percent Auto 8.4 % (25-40); Mean Corpuscular HGB Conc 32.6 % (30-36); Mean Corpuscular Volume 92.2 fL (80-100); Monocytes Absolute Auto 600 /uL (0-900); Monocytes Percent Auto 6.4 % (3-14); Neutrophils Absolute Auto 8500 /uL (1500-7000); Neutrophils Percent Auto 84.5 % (50-75); Platelet Count 328 X10^3/uL (150-400); Red Blood Cell Count 4.04 X10^6/uL (4.0-5.2); Red Cell Distribution Width 16.7 % (11.6-14.8); White Blood Cell Count 10.1 X10^3/uL (4.5-11.0)
[2024-03-14 17:23] LABS: Alanine Aminotransferase 41 IU/L (<35); Albumin 3.9 g/dL (3.5-5.0); Alkaline Phosphatase 59 U/L (38-126); Aspartate Aminotransferase 47 IU/L (14-36); BUN Creatinine Ratio 34.1 (6-22); Bilirubin Total 0.7 mg/dL (0.2-1.3); Blood Urea Nitrogen 45 mg/dL (7-17); Calcium 9.1 mg/dL (8.4-10.2); Carbon Dioxide 36 mmol/L (22-32); Chloride 96 mmol/L (98-107); Estimated Glomerular Filt Rate 42 mL/min (>60); Globulin 4.1 g/dL (1.7-4.1); Glucose 300 mg/dL (80-110); Lactate (Lactic Acid) 3.2 mmol/L (0.7-2.1); Sodium 135 mmol/L (137-145)
[2024-03-14 17:24] LABS: HEMOLYSIS 113 (0-50); Potassium 4.5 mmol/L (3.4-5.1)
[2024-03-14 17:35] LABS: NT-proBNP (BNP-Adult 18+) 2250 pg/mL (<450)
--- NOTE | 2024-03-14 17:40 | EKG_ITS ---
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 For the last few days she has been needing 3-4 L of O2 instead of usual 1-2 and subjective dyspnea. Electronically Signed On 03-15-2024 13:08:54 PST by Harjeet Nance
--- NOTE | 2024-03-14 18:26 | ED_ITS ---
HPI - General Adult General Chief complaint: Shortness of Breath/Dyspnea Stated complaint: Congestive Heart Failure Time Seen by Provider: 03/14/24 17:25 Source: patient and family Mode of arrival: Family Vehicle History of Present Illness HPI narrative: Patient is a 74-year-old female. Has a history of asthma. Also has a history of CHF. He was on oxygen at 2 L at baseline 247. Over the past several weeks has had increasing orthopnea and dyspnea on exertion. She was having lower extremity swelling. Has been gaining weight. No fevers. Did have a cough over the past couple days that has been productive. No chest pain. No abdominal pain. No nausea vomiting, urinary symptoms or change in bowel habits. Two weeks ago she had her diuretic increased from 20 mg twice a day to 40 mg twice a day. She reports that she does feel like she was using the restroom more but still seems to be gaining weight and having increased swelling and shortness of breath. She has to increase her oxygen now to 3-4 L when she gets up and exerts herself. She can not lay flat and last night woke up several times gasping for air because she was short of breath. Related Data Home Medications Medication Instructions Recorded Confirmed polyethylene glycol 3350 17 17 gm PO DAILY PRN Constipation ##0 06/06/17 01/12/24 gram/dose oral powder (Miralax) albuterol sulfate 90 mcg/actuation 2 puff inhalation Q4-6H PRN 05/29/19 01/12/24 aerosol inhaler Shortness Of Breath cholecalciferol (vitamin D3) 50 2,000 unit PO DAILY 05/29/19 01/12/24 mcg (2,000 unit) tablet ferrous sulfate 325 mg (65 mg 325 mg PO BEDTIME 05/29/19 01/12/24 iron) tablet tizanidine 4 mg capsule 4 mg PO QID PRN Muscle Spasm 05/29/19 01/12/24 sodium chloride 3 % for 3 ml inhalation BID 06/05/19 01/12/24 nebulization cetirizine 10 mg capsule (Zyrtec) 10 mg PO DAILY allergies 01/20/20 01/12/24 montelukast 10 mg tablet 10 mg PO BEDTIME 01/20/20 01/12/24 (Singulair) atorvastatin 40 mg tablet 40 mg PO BEDTIME 04/20/21 01/12/24 epinephrine 0.3 mg/0.3 mL 0.3 mg IM Q5-15M PRN Allergic 04/20/21 01/12/24 injection, auto-injector (EpiPen) Reaction insulin glargine 100 unit/mL 20 unit SUBCUT QAM 04/20/21 01/12/24 subcutaneous solution insulin lispro 100 unit/mL 4 - 8 unit SUBCUT TID 04/20/21 01/12/24 subcutaneous pen (Humalog KwikPen (U-100) Insulin) levothyroxine 75 mcg tablet 75 mcg PO QAM 04/20/21 01/12/24 tiotropium bromide 18 mcg capsule 1 cap inhalation DAILY 04/20/21 01/12/24 with inhalation device (Spiriva with HandiHaler) lansoprazole 15 mg capsule,delayed 30 mg PO BID 04/29/21 01/12/24 release (Prevacid 24Hr) duloxetine 30 mg capsule,delayed 30 mg PO DAILY 06/28/21 01/12/24 release guaifenesin 1,200 mg tablet, 1,200 mg PO BID 06/28/21 01/12/24 extended release 12 hr (Mucinex) pramipexole 0.5 mg tablet 0.5 mg PO BEDTIME 06/28/21 01/12/24 omega-3 fatty acids 1,000 mg PO DAILY 04/24/22 01/12/24 benralizumab 30 mg/mL subcutaneous 30 mg SUBCUT Q8W 06/03/22 01/12/24 syringe (Fasenra) pzivwhrduc-fzdzygdtzegge-nghhmfks 1 tab PO Q6H PRN Migraine Headache 06/03/22 01/12/24 50 mg-325 mg-40 mg tablet oxycodone 5 mg capsule 15 mg PO Q6H PRN Pain (Scale Score 06/03/22 01/12/24 7-10) prednisone 5 mg tablet 5 mg PO DAILY 06/03/22 01/12/24 Hizintra 15 g SUBCUT QWEEK 08/25/22 01/12/24 fluticasone 500 mcg-salmeterol 50 1 inh inhalation Q12H 08/25/22 01/12/24 mcg/dose blistr powdr for inhalation (Advair Diskus) fentanyl 12 mcg/hr transdermal 12 mcg transdermal SEEINSTR 10/13/22 01/12/24 patch warfarin 1 mg tablet 1 mg PO DAILY 10/13/22 01/12/24 magnesium oxide 400 mg PO BID 04/08/23 01/12/24 metoprolol succinate 25 mg 12.5 mg PO BID 04/08/23 01/12/24 tablet,extended release 24 hr torsemide 20 mg tablet 20 mg PO BID 04/08/23 01/12/24 acetaminophen 325 mg tablet 650 mg PO Q6H PRN Pain, Mild 06/19/23 03/14/24 acyclovir 5 % topical ointment 1 applic topical Q4-5H PRN Rash 06/19/23 03/14/24 amiodarone 200 mg tablet 200 mg PO DAILY 06/19/23 01/12/24 clotrimazole 10 mg aneesh 10 mg PO 5XD 06/19/23 01/12/24 diclofenac sodium 1 % topical gel 4 g topical QID PRN JOINT PAIN 06/19/23 01/12/24 ipratropium 0.5 mg-albuterol 3 mg 3 ml inhalation BID 06/19/23 01/12/24 (2.5 mg base)/3 mL nebulization soln miconazole nitrate 2 % topical 1 applic topical QID PRN Rash 06/19/23 01/12/24 powder naloxone 4 mg/actuation nasal spray 1 spray intranasal NOW PRN OVERDOSE 06/19/23 01/12/24 ondansetron HCl 4 mg tablet 4 mg PO Q8H PRN Nausea And Vomiting 06/19/23 01/12/24 oxymetazoline 0.05 % nasal drops 1 drp intranasal BID 06/19/23 01/12/24 potassium chloride 20 mEq/15 mL 10 meq PO BIDWM 06/19/23 01/12/24 oral liquid spironolactone 50 mg tablet 50 mg PO DAILY 01/12/24 01/12/24 Previous Rx's Medication Instructions Recorded verio reflect glucometer #1 ea 01/28/20 insulin syringe-needle U-100 0.5 #100 ea 03/30/20 mL 31 gauge x 5/16 (BD Insulin Syringe Ultra-Fine) metformin 1,000 mg tablet 1,000 mg PO BID #180 tabs 09/03/20 fentanyl 25 mcg/hr transdermal 1 patch transdermal Q72H PRN pain 02/05/22 patch (scale score 1-3) #5 ea aluminum-mag hydroxide-simethicone 30 ml PO Q6HR PRN Dyspepsia #355 mL 08/28/22 200 mg-200 mg-20 mg/5 mL oral susp (Mag-Al Plus) calcium carbonate 1,000 mg (5 x 200 mg calcium (500 08/28/22 mg)) PO Q4HR PRN Dyspepsia #60 tabs docusate sodium 100 mg capsule 100 mg PO BID #60 caps 08/28/22 sennosides 8.6 mg tablet (senna) 17.2 mg (2 x 8.6 mg) PO BEDTIME 08/28/22 #60 tabs Allergies Allergy/AdvReac Type Severity Reaction Status Date / Time piperacillin [From Zosyn] Allergy Severe Rash Verified 03/14/24 16:45 tazobactam [From Zosyn] Allergy Severe Rash Verified 03/14/24 16:45 hydroxychloroquine Allergy Unknown Verified 03/14/24 16:45 [HYDROXYCHLOROQUINE] Sulfa (Sulfonamide Allergy Verified 03/14/24 16:45 Antibiotics) cefepime AdvReac Intermediate pruritis Verified 03/14/24 16:45 promethazine [From Phenergan] AdvReac Agitated Verified 03/14/24 16:45 Review of Systems Review of Systems ROS Unobtainable: All systems reviewed & are unremarkable except as noted in HPI and below Patient History Medical History Anticoagulated Pneumonia Wears glasses Eczema Osteoarthritis Bronchiectasis (~2006) Sleep apnea Asthma (~1959) Abnormal chest xray (~1979) Restless leg syndrome Migraines (~1965) Shoulder pain (~03/2018) Osteopenia Degenerative joint disease of spine (~2001) Foot pain Fibromyalgia Chronic back pain Cervical spine disease Ankle pain MRSA (methicillin resistant Staphylococcus aureus) (~2002) Anemia Hoarseness Recurrent sinusitis (~1970) Colon polyps (~2015) Hypothyroidism Diabetes mellitus, type II (~2009) Hypertension Hyperlipidemia Nail bed carcinoma Pneumonia Surgical History Anesthesia History of thumb surgery History of carpal tunnel release History of spinal fusion (~2012) History of laminectomy (~2002) History of section History of cataract removal with insertion of prosthetic lens (~2014) Family History Father Stroke Mother Hypertension Brother Cerebral aneurysm Prostate cancer Diabetes mellitus Hypertension Stroke Brother Arthritis Hyperlipidemia Hypertension Sister History of kidney cancer Hypertension Grandfather Cancer Grandmother Cancer Other Family history non-contributory Social History marital status: household members: spouse lives independently: Yes occupational status: previously employed Smoking Status: Never smoker alcohol intake: never substance use type: does not use Smoking Status: Never smoker alcohol intake frequency: holidays/special occasions only Substance Use Type: does not use Exam Initial Vital Signs Initial Vital Signs: Vital Signs Temperature 97.7 F 03/14/24 16:25 Pulse Rate 68 03/14/24 16:25 Respiratory Rate 22 03/14/24 16:25 Blood Pressure 131/60 03/14/24 16:25 Pulse Oximetry 96 03/14/24 16:25 Oxygen Delivery Method Nasal Cannula 03/14/24 16:25 Oxygen Flow Rate 3 03/14/24 16:25 Const General: cooperative, comfortable and No ill appearing HENMT Head: normal to inspection and normocephalic Resp Effort & Inspection: no cough, not labored, no retractions and tachypneic Auscultation: rhonchi and wheezes Cardio Rate: bradycardic Rhythm: regular rhythm GI Inspection: normal to inspection Skin General: no rashes or lesions noted Neuro General: patient alert, patient awake and moves all extremities Extrem General: capillary refill normal and edema Course Orders Ordered: ED Orders 03/14/24 16:44 XR chest 1V Stat EKG-12 Lead Stat Measure peak expiratory flow ONCE RT Consult Eval and Treat NOW 03/14/24 16:54 Complete Blood Count AUTO DIFF Stat Comprehensive Metabolic Panel Stat Lactate (Lactic Acid) Stat NT-proBNP (BNP-Adult 18+) Stat Prothrombin Time INR Stat Troponin I Stat 03/14/24 17:31 Respiratory Panel (Film Array) Stat Discontinued Medications Albuterol/Ipratropium (Albuterol/Ipratropium 3 Ml Ampul) 3 ml INH NOW ONE Stop: 03/14/24 18:27 Last Admin: 03/14/24 18:51 Dose: 3 ml Documented By: JZF Furosemide 60 mg/ Sodium (Chloride) 56 mls @ 112 mls/hr IV NOW ONE Stop: 03/14/24 18:27 Last Infusion: 03/14/24 19:50 Dose: Infused Documented By: Admin: 03/14/24 18:58 Dose: 112 mls/hr Documented By: GERTRUDIS Methylprednisolone (Methylprednisolone 125 Mg/2 Ml Vial) 60 mg IV NOW ONE Stop: 03/14/24 20:34 Last Admin: 03/14/24 21:02 Dose: 60 mg Documented By: GERTRUDIS Vital Signs Vital signs: Vital Signs - 8 hr 03/14/24 16:25 03/14/24 16:41 03/14/24 16:50 Temperature 97.7 F Pulse Rate 68 72 63 Respiratory Rate 22 Blood Pressure 131/60 Pulse Oximetry 96 95 97 Oxygen Delivery Method Nasal Cannula Nasal Cannula Oxygen Flow Rate 3 3 03/14/24 16:50 03/14/24 17:00 03/14/24 17:01 Temperature Pulse Rate 61 61 Respiratory Rate 21 22 Blood Pressure 136/59 L Pulse Oximetry 97 97 Oxygen Delivery Method Nasal Cannula Nasal Cannula Oxygen Flow Rate 3 3 03/14/24 17:01 03/14/24 17:30 03/14/24 17:30 Temperature Pulse Rate 57 L Respiratory Rate Blood Pressure 118/59 L 100/54 L Pulse Oximetry 97 Oxygen Delivery Method Nasal Cannula Oxygen Flow Rate 3 03/14/24 18:00 03/14/24 18:00 03/14/24 18:30 Temperature Pulse Rate 59 L 59 L Respiratory Rate 20 16 Blood Pressure 130/64 Pulse Oximetry 95 99 Oxygen Delivery Method Nasal Cannula Nasal Cannula Oxygen Flow Rate 3 2 03/14/24 18:31 03/14/24 18:31 03/14/24 18:52 Temperature Pulse Rate 59 L 61 Respiratory Rate 19 16 Blood Pressure 138/62 Pulse Oximetry 100 98 Oxygen Delivery Method Nasal Cannula Nasal Cannula Oxygen Flow Rate 2 2 03/14/24 19:00 03/14/24 19:00 03/14/24 19:30 Temperature Pulse Rate 60 59 L Respiratory Rate 17 21 Blood Pressure 147/72 H Pulse Oximetry 99 97 Oxygen Delivery Method Nasal Cannula Nasal Cannula Oxygen Flow Rate 2 2 03/14/24 19:30 03/14/24 20:08 03/14/24 20:30 Temperature Pulse Rate 67 56 L Respiratory Rate 25 H 24 Blood Pressure 151/66 H Pulse Oximetry 83 L 98 Oxygen Delivery Method Nasal Cannula Oxygen Flow Rate 2 Medical Decision Making Medical Records Medical records reviewed: Yes I reviewed the patient's medical records. Lab Data Lab results reviewed: Yes I reviewed the patient's lab results. 03/14/24 16:54 03/14/24 16:54 Labs: Lab Results 03/14/24 03/14/24 Range/Units 16:54 17:31 WBC 10.1 (4.5-11.0) X10^3/uL RBC 4.04 (4.0-5.2) X10^6/uL Hgb 12.1 (12.0-16.0) g/dL Hct 37.3 (36-46) % MCV 92.2 (80-100) fL MCH 30.0 (26-34) PG MCHC 32.6 (30-36) % RDW 16.7 H (11.6-14.8) % Plt Count 328 (150-400) X10^3/uL Neut % (Auto) 84.5 H (50-75) % Lymph % (Auto) 8.4 L (25-40) % [place] % (Auto) 6.4 (3-14) % Eos % (Auto) 0.0 L (2-4) % Baso % (Auto) 0.7 (0-2) % Neut # (Auto) 8500 H (3262-8027) /uL Lymph # (Auto) 800 L (4947-9262) /uL [place] # (Auto) 600 (0-900) /uL Eos # (Auto) 0 (0-450) /uL Baso # (Auto) 100 (0-100) /uL PT 22.6 H (9.4-12.5) SECONDS INR 2.0 H (0.9-1.3) Sodium 135 L (137-145) mmol/L Potassium 4.5 (3.4-5.1) mmol/L Chloride 96 L (98-107) mmol/L Carbon Dioxide 36 H (22-32) mmol/L BUN 45 H (7-17) mg/dL Creatinine 1.32 H (0.52-1.04) mg/dL Estimated GFR 42 L (>60) mL/min BUN/Creatinine Ratio 34.1 H (6-22) Glucose 300 H (80-110) mg/dL Lactate 3.2 H (0.7-2.1) mmol/L Calcium 9.1 (8.4-10.2) mg/dL Total Bilirubin 0.7 (0.2-1.3) mg/dL AST 47 H (14-36) IU/L ALT 41 H (<35) IU/L Alkaline Phosphatase 59 (38-126) U/L Troponin I 0.030 (0.01-0.034) ng/mL NT-Pro-B Natriuret Pep 2250 H (<450) pg/mL Total Protein 8.0 (6.3-8.2) g/dL Albumin 3.9 (3.5-5.0) g/dL Globulin 4.1 (1.7-4.1) g/dL Albumin/Globulin Ratio 1.0 (1.0-2.8) Chlamy pneumoniae PCR Not detected (Not Detect) Adenovirus (PCR) Not detected (Not Detect) B. pertussis DNA (PCR) Not detected (Not Detect) B.parapertussis DNA PCR Not detected (Not Detecte) Coronavirus OC43 (PCR) Not detected (Not Detect) Coronavirus HKU1 (PCR) Not detected (Not Detect) Coronavirus 229E (PCR) Not detected (Not Detect) SARS-CoV-2 (PCR) Not detected (Not Detecte) Coronavirus NL63 (PCR) Not detected (Not Detect) Human Metapneumovir PCR Not detected (Not Detect) Influenza Type A (PCR) Not detected (Not Detect) Influenza Type B (PCR) Not detected (Not Detect) M. pneumoniae (PCR) Not detected (Not Detect) Parainfluenza 1 (PCR) Not detected (Not Detect) Parainfluenza 2 (PCR) Not detected (Not Detect) Parainfluenza 3 (PCR) Not detected (Not Detect) Parainfluenza 4 (PCR) Not detected (Not Detect) RSV (PCR) Not detected (Not Detect) Entero/Rhino (PCR) Not detected (Not Detect) Imaging Data Chest x-ray: Radiologist's Impression: PROCEDURE: XR CHEST 1V INDICATIONS: Shortness of breath TECHNIQUE: One view of the chest was acquired. COMPARISON: [facility], CR, XR CHEST 1V, 01/12/2024, 1:48. [facility], CR, XR CHEST 1V, 07/05/2023, 10:08. [facility], CR, XR CHEST 1V, 06/19/2023, 14:52. [facility], CR, XR CHEST 1V, 04/08/2023, 13:53. FINDINGS: Surgical changes and devices: Aortic valve graft in place. Lungs and pleura: Low lung volumes. Lungs are otherwise clear. No pleural effusions or pneumothorax. Mediastinum: Aortic vascular calcifications. Mediastinal contours otherwise appear normal. Heart size is normal. Bones and chest wall: No suspicious bony lesions. Overlying soft tissues appear unremarkable. IMPRESSION: No acute cardiothoracic process. ECG Data Attestation: I personally reviewed and interpreted this ECG as follows: Interpretation: Sinus bradycardia Ventricular rate of 59 Right bundle-branch block Normal axis No ST T wave changes MDM Narrative Medical decision making narrative: No leukocytosis. Respiratory panel was negative. Chest x-ray shows no infiltrates. Her presentation today is consistent with CHF/fluid overload. She was having orthopnea and dyspnea on exertion. She ambulated around the emergency department and after just a couple steps she became hypoxic to the low 80s. After sitting back down I would increase her oxygen by nasal cannula up to 4 L. she was afebrile. Was given furosemide IV. She did diurese but this had minimal effect on her presenting symptoms. Patient does require admission to the hospital for further diuresis. Discussed the case with Dr. Caballero hospitalist on-call who will admit for further evaluation and treatment. Discharge Plan Departure Patient Disposition: Admitted As Inpatient Clinical Impression: CHF (congestive heart failure), Hypoxemia Admit Date/Time: 03/14/24 20:34 Admit Provider: Kyle Caballero
[2024-03-14 18:39] LABS: Adenovirus Not Detected (Not Detect); B. parapertussis Not Detected (Not Detecte); Bordetella pertussis Not Detected (Not Detect); Chlamydophila pneumoniae Not Detected (Not Detect); Coronavirus 229E Not Detected (Not Detect); Coronavirus HKU1 Not Detected (Not Detect); Coronavirus NL 63 Not Detected (Not Detect); Coronavirus OC43 Not Detected (Not Detect); Human Metapneumovirus Not Detected (Not Detect); Human Rhinovirus/Enterovirus Not Detected (Not Detect); Influenza A Not Detected (Not Detect); Influenza B Not Detected (Not Detect); Mycoplasma pneumoniae Not Detected (Not Detect); Parainfluenza Virus 1 Not Detected (Not Detect); Parainfluenza Virus 2 Not Detected (Not Detect); Parainfluenza Virus 3 Not Detected (Not Detect); Parainfluenza Virus 4 Not Detected (Not Detect); Respiratory Syncytial Virus Not Detected (Not Detect); SARS- CoV-2 Not Detected (Not Detecte)
[2024-03-14 18:43] LABS: Reflexed Lactate in 2 Hours Y
[2024-03-14] MEDS: ALBUTEROL/IPRATROPIUM 3 ML AMPUL INH (18:51)
[2024-03-14] MEDS: FUROSEMIDE 60 MG in SODIUM CHLORIDE 0.9% 50 ML 112 MG IV (18:58)
--- NOTE | 2024-03-14 19:17 | PC.NURSE ---
Provider ordered IV lasix, patient has incontinence, this RN and DEPARTMENTAL BU[employer]ER darius changed brief and placed a pure wick
--- NOTE | 2024-03-14 20:11 | PC.NURSE ---
Provider ordered ambulation on pulse ox, at baseline patient uses mostly electric scooter due to bone on bone arthritis. Patient standing at bedside desatted to 88%. Patient placed back in the bed and sats were at 82-83%, placed the patient on 3L to maintain sats above 90%. PRovider Lanker aware
[2024-03-14] MEDS: methylPREDNISolone 125 MG/2 ML VIAL 60 MG IV (21:02)
[2024-03-14 21:25] LABS: Bacteria Urine Many (>30); Culture Indicated Urine Specimen Cultured; RBC Urine None Seen (0-5/HPF); Squamous Epithelial Cell Urine 0-1 /HPF (0-5/HPF); Urine Volume 10mL (spun); WBC Urine None Seen (0-5/HPF)
[2024-03-14 21:45] LABS: Lactate 2HR (Lactic Acid Rflx) 2.2 mmol/L (0.7-2.1)
[2024-03-14] MEDS: HEPARIN 5,000 UNIT/ML VIAL 5000 UNIT SUBCUT (23:12)
[2024-03-14] MEDS: OXYCODONE/ACETAMINOPHEN 5/325 TABLET 1 TAB PO (23:43)
[2024-03-15] VITALS (12 sets, daily range): BP systolic 102–151; BP diastolic 47–95; PULSE 60–81; RESP 14–22; TEMP 36–37; O2SAT 91–99
--- NOTE | 2024-03-15 00:08 | PC.NURSE ---
Pt. admitted from ER, accompanied by her spouse.Oriented to her room showed her the bed/TV controls, encouraged to call for assistance. Call light within reached. C/O pain medicated with 1 tablet of Percocet, will continue POC & monitor.
--- NOTE | 2024-03-15 02:29 | PM.HP.1 ---
History of Present Illness History of Present Illness Chief complaint: Congestive Heart Failure Narrative: 74 year-old female with past medical history of CHF, asthma, chronic respiratory failure with hypoxemia requiring 2 L of O2 at baseline, Hyperlipidemia, insulin dependent diabetes, atrial fibrillation, and hypothyroidism presents with shortness of breath. Per the patient report, over the last few weeks, the patient has have increasing shortness of breath. The patient also noticed some increasing lower extremity edema, despite having her increased from Torsemide 20 mg twice a day to 40 mg twice a day. The patient also noticed the rapid weight gain. Otherwise the patient denies any fever, chills, chest pain, nausea, vomiting or diarrhea. In our emergency room, the patient was requiring 3 to 4 L of O2 per cannula. Lab shows INR 2.0 normal WBC Cran and 1.3 glucose 300 lactate 2.2 and BMP of 2200s. The patient was given 60 mg of IV Lasix, Solumedrol of 60 mg and duonebs. CXR shows no sign of PNA. [facility] Medical History Anticoagulated Pneumonia Wears glasses Eczema Osteoarthritis Bronchiectasis (~2006) Sleep apnea Asthma (~1959) Abnormal chest xray (~1979) Restless leg syndrome Migraines (~1964) Shoulder pain (~03/2018) Osteopenia Degenerative joint disease of spine (~2001) Foot pain Fibromyalgia Chronic back pain Cervical spine disease Ankle pain MRSA (methicillin resistant Staphylococcus aureus) (~2002) Anemia Hoarseness Recurrent sinusitis (~1970) Colon polyps (~2015) Hypothyroidism Diabetes mellitus, type II (~2009) Hypertension Hyperlipidemia Nail bed carcinoma Pneumonia Surgical History Anesthesia History of thumb surgery History of carpal tunnel release History of spinal fusion (~2012) History of laminectomy (~2002) History of section History of cataract removal with insertion of prosthetic lens (~2014) Family History Father Stroke Mother Hypertension Brother Cerebral aneurysm Prostate cancer Diabetes mellitus Hypertension Stroke Brother Arthritis Hyperlipidemia Hypertension Sister History of kidney cancer Hypertension Grandfather Cancer Grandmother Cancer Other Family history non-contributory Social History marital status: household members: spouse lives independently: Yes occupational status: previously employed Smoking Status: Never smoker alcohol intake: never substance use type: does not use Meds Home Medications and Allergies Home Medications Medication Instructions Recorded Confirmed Type polyethylene glycol 3350 17 17 gm PO DAILY PRN Constipation ##0 06/06/17 03/14/24 History gram/dose oral powder (Miralax) albuterol sulfate 90 mcg/actuation 2 puff inhalation Q4-6H PRN 05/29/19 03/14/24 History aerosol inhaler Shortness Of Breath cholecalciferol (vitamin D3) 50 2,000 unit PO DAILY 05/29/19 03/14/24 History mcg (2,000 unit) tablet ferrous sulfate 325 mg (65 mg 325 mg PO BEDTIME 05/29/19 03/14/24 History iron) tablet tizanidine 4 mg capsule 4 mg PO QID PRN Muscle Spasm 05/29/19 03/14/24 History sodium chloride 3 % for 3 ml inhalation BID 06/05/19 03/14/24 History nebulization cetirizine 10 mg capsule (Zyrtec) 10 mg PO DAILY allergies 01/20/20 03/14/24 History montelukast 10 mg tablet 10 mg PO BEDTIME 01/20/20 03/14/24 History (Singulair) verio reflect glucometer #1 ea 01/28/20 03/14/24 Rx insulin syringe-needle U-100 0.5 #100 ea 03/30/20 03/14/24 Rx mL 31 gauge x 5/16 (BD Insulin Syringe Ultra-Fine) metformin 1,000 mg tablet 1,000 mg PO BID #180 tabs 09/03/20 03/14/24 Rx atorvastatin 40 mg tablet 40 mg PO BEDTIME 04/20/21 03/14/24 History epinephrine 0.3 mg/0.3 mL 0.3 mg IM Q5-15M PRN Allergic 04/20/21 03/14/24 History injection, auto-injector (EpiPen) Reaction insulin glargine 100 unit/mL 30 unit SUBCUT QAM 04/20/21 03/14/24 History subcutaneous solution insulin lispro 100 unit/mL 2 - 8 unit SUBCUT TID 04/20/21 03/14/24 History subcutaneous pen (Humalog KwikPen (U-100) Insulin) levothyroxine 75 mcg tablet 75 mcg PO QAM 04/20/21 03/14/24 History tiotropium bromide 18 mcg capsule 1 cap inhalation DAILY 04/20/21 03/14/24 History with inhalation device (Spiriva with HandiHaler) lansoprazole 15 mg capsule,delayed 30 mg PO BID 04/29/21 03/14/24 History release (Prevacid 24Hr) duloxetine 30 mg capsule,delayed 30 mg PO DAILY 06/28/21 03/14/24 History release guaifenesin 1,200 mg tablet, 1,200 mg PO BID 06/28/21 03/14/24 History extended release 12 hr (Mucinex) pramipexole 0.5 mg tablet 0.5 mg PO BEDTIME 06/28/21 03/14/24 History fentanyl 25 mcg/hr transdermal 1 patch transdermal Q72H PRN pain 02/05/22 03/14/24 Rx patch (scale score 1-3) #5 ea omega-3 fatty acids 1,000 mg PO DAILY 04/24/22 03/14/24 History benralizumab 30 mg/mL subcutaneous 30 mg SUBCUT Q8W 06/03/22 03/14/24 History syringe (Fasenra) oxvkciouwe-lpkgtrtqnihxw-owdfejbq 1 tab PO Q6H PRN Migraine Headache 06/03/22 03/14/24 History 50 mg-325 mg-40 mg tablet oxycodone 5 mg capsule 15 mg PO Q6H PRN Pain (Scale Score 06/03/22 03/14/24 History 7-10) prednisone 5 mg tablet 5 mg PO DAILY 06/03/22 03/14/24 History Hizintra 15 g SUBCUT QWEEK 08/25/22 03/14/24 History fluticasone 500 mcg-salmeterol 50 1 inh inhalation Q12H 08/25/22 03/14/24 History mcg/dose blistr powdr for inhalation (Advair Diskus) aluminum-mag hydroxide-simethicone 30 ml PO Q6HR PRN Dyspepsia #355 mL 08/28/22 03/14/24 Rx 200 mg-200 mg-20 mg/5 mL oral susp (Mag-Al Plus) calcium carbonate 1,000 mg (5 x 200 mg calcium (500 08/28/22 03/14/24 Rx mg)) PO Q4HR PRN Dyspepsia #60 tabs docusate sodium 100 mg capsule 100 mg PO BID #60 caps 08/28/22 03/14/24 Rx sennosides 8.6 mg tablet (senna) 17.2 mg (2 x 8.6 mg) PO BEDTIME 08/28/22 03/14/24 Rx #60 tabs fentanyl 12 mcg/hr transdermal 12 mcg transdermal SEEINSTR 10/13/22 03/14/24 History patch warfarin 1 mg tablet 1 mg PO DAILY 10/13/22 03/14/24 History magnesium oxide 400 mg PO BID 04/08/23 03/14/24 History metoprolol succinate 25 mg 12.5 mg PO BID 04/08/23 03/14/24 History tablet,extended release 24 hr torsemide 20 mg tablet 40 mg PO BID 04/08/23 03/14/24 History acetaminophen 325 mg tablet 650 mg PO Q6H PRN Pain, Mild 06/19/23 03/14/24 History acyclovir 5 % topical ointment 1 applic topical Q4-5H PRN Rash 06/19/23 03/14/24 History amiodarone 200 mg tablet 200 mg PO DAILY 06/19/23 03/14/24 History clotrimazole 10 mg aneesh 10 mg PO 5XD 06/19/23 03/14/24 History diclofenac sodium 1 % topical gel 4 g topical QID PRN JOINT PAIN 06/19/23 03/14/24 History ipratropium 0.5 mg-albuterol 3 mg 3 ml inhalation BID 06/19/23 03/14/24 History (2.5 mg base)/3 mL nebulization soln miconazole nitrate 2 % topical 1 applic topical QID PRN Rash 06/19/23 03/14/24 History powder naloxone 4 mg/actuation nasal spray 1 spray intranasal NOW PRN OVERDOSE 06/19/23 03/14/24 History ondansetron HCl 4 mg tablet 4 mg PO Q8H PRN Nausea And Vomiting 06/19/23 03/14/24 History oxymetazoline 0.05 % nasal drops 1 drp intranasal BID 06/19/23 03/14/24 History potassium chloride 20 mEq/15 mL 10 meq PO BIDWM 06/19/23 03/14/24 History oral liquid trazodone 25 mg PO BEDTIME 03/14/24 03/14/24 History Allergies Allergy/AdvReac Type Severity Reaction Status Date / Time piperacillin [From Zosyn] Allergy Severe Rash Verified 03/14/24 16:45 tazobactam [From Zosyn] Allergy Severe Rash Verified 03/14/24 16:45 hydroxychloroquine Allergy Unknown Verified 03/14/24 16:45 [HYDROXYCHLOROQUINE] Sulfa (Sulfonamide Allergy Verified 03/14/24 16:45 Antibiotics) cefepime AdvReac Intermediate pruritis Verified 03/14/24 16:45 promethazine [From Phenergan] AdvReac Agitated Verified 03/14/24 16:45 Review of Systems Review of Systems ROS: Yes All systems reviewed with the patient and are negative except as otherwise documented Exam Vital Signs (past 8 hours): - 03/14/24 18:30 03/14/24 18:31 03/14/24 18:31 Temperature Pulse Rate 59 L 59 L Respiratory Rate 16 19 Blood Pressure 138/62 Pulse Oximetry 99 100 Oxygen Delivery Method Nasal Cannula Nasal Cannula Oxygen Flow Rate 2 2 03/14/24 18:52 03/14/24 19:00 03/14/24 19:00 Temperature Pulse Rate 61 60 Respiratory Rate 16 17 Blood Pressure 147/72 H Pulse Oximetry 98 99 Oxygen Delivery Method Nasal Cannula Nasal Cannula Oxygen Flow Rate 2 2 03/14/24 19:30 03/14/24 19:30 03/14/24 20:08 Temperature Pulse Rate 59 L 67 Respiratory Rate 21 25 H Blood Pressure 151/66 H Pulse Oximetry 97 83 L Oxygen Delivery Method Nasal Cannula Nasal Cannula Oxygen Flow Rate 2 2 03/14/24 20:30 03/14/24 20:55 03/14/24 20:55 Temperature Pulse Rate 56 L 58 L Respiratory Rate 24 34 H Blood Pressure 130/65 Pulse Oximetry 98 90 L Oxygen Delivery Method Nasal Cannula Oxygen Flow Rate 2 03/14/24 21:00 03/14/24 21:01 03/14/24 21:01 Temperature Pulse Rate 57 L 57 L Respiratory Rate 32 H 32 H Blood Pressure 168/64 H Pulse Oximetry 98 84 L Oxygen Delivery Method Nasal Cannula Oxygen Flow Rate 2 03/14/24 21:50 03/15/24 02:00 Temperature 98.2 F 98.1 F Pulse Rate 58 L 60 Respiratory Rate 14 14 Blood Pressure 138/61 151/95 H Pulse Oximetry 95 94 Oxygen Delivery Method Oxygen Flow Rate 1.5 1.5 Oxygen Delivery Method Nasal Cannula Oxygen Flow Rate 1.5 Narrative Exam Narrative: Physical Exam: GENERAL: The patient is not in any acute distressed. Awake and alert. HEENT: Nonicteric sclerae, PERRLA, EOMI. Oropharynx clear. Moist mucous membranes. Conjunctivae appear well perfused. HEART: Regular rate and rhythm without murmurs. traced lower extremities edema. LUNGS: Clear to auscultation bilaterally. No wheezing, crackles or rhonchi ABDOMEN: Soft, positive bowel sounds, nontender. SKIN: No rash, no excessive bruising, petechiae, or purpura. NEUROLOGIC: AxO x 3. Cranial nerves II-XII intact without motor/sensory deficit. Objective Labs 03/14/24 16:54 03/14/24 16:54 Labs: Laboratory Results - last 24 hr 03/14/24 03/14/24 03/14/24 16:54 17:31 20:45 WBC 10.1 RBC 4.04 Hgb 12.1 Hct 37.3 MCV 92.2 MCH 30.0 MCHC 32.6 RDW 16.7 H Plt Count 328 Neut % (Auto) 84.5 H Lymph % (Auto) 8.4 L [place] % (Auto) 6.4 Eos % (Auto) 0.0 L Baso % (Auto) 0.7 Neut # (Auto) 8500 H Lymph # (Auto) 800 L [place] # (Auto) 600 Eos # (Auto) 0 Baso # (Auto) 100 PT 22.6 H INR 2.0 H Sodium 135 L Potassium 4.5 Chloride 96 L Carbon Dioxide 36 H BUN 45 H Creatinine 1.32 H Estimated GFR 42 L BUN/Creatinine Ratio 34.1 H Glucose 300 H Lactate 3.2 H Calcium 9.1 Total Bilirubin 0.7 AST 47 H ALT 41 H Alkaline Phosphatase 59 Troponin I 0.030 NT-Pro-B Natriuret Pep 2250 H Total Protein 8.0 Albumin 3.9 Globulin 4.1 Albumin/Globulin Ratio 1.0 Urine RBC None seen Urine WBC None seen Ur Squamous Epith Cells 0-1 /hpf Urine Bacteria Many (>30) H Ur Culture Indicated? Specimen cultured Vol Urine Centrifuged 10ml (spun) Chlamy pneumoniae PCR Not detected Adenovirus (PCR) Not detected B. pertussis DNA (PCR) Not detected B.parapertussis DNA PCR Not detected Coronavirus OC43 (PCR) Not detected Coronavirus HKU1 (PCR) Not detected Coronavirus 229E (PCR) Not detected SARS-CoV-2 (PCR) Not detected Coronavirus NL63 (PCR) Not detected Human Metapneumovir PCR Not detected Influenza Type A (PCR) Not detected Influenza Type B (PCR) Not detected M. pneumoniae (PCR) Not detected Parainfluenza 1 (PCR) Not detected Parainfluenza 2 (PCR) Not detected Parainfluenza 3 (PCR) Not detected Parainfluenza 4 (PCR) Not detected RSV (PCR) Not detected Entero/Rhino (PCR) Not detected 03/14/24 20:50 WBC RBC Hgb Hct MCV MCH MCHC RDW Plt Count Neut % (Auto) Lymph % (Auto) [place] % (Auto) Eos % (Auto) Baso % (Auto) Neut # (Auto) Lymph # (Auto) [place] # (Auto) Eos # (Auto) Baso # (Auto) PT INR Sodium Potassium Chloride Carbon Dioxide BUN Creatinine Estimated GFR BUN/Creatinine Ratio Glucose Lactate 2.2 H Calcium Total Bilirubin AST ALT Alkaline Phosphatase Troponin I NT-Pro-B Natriuret Pep Total Protein Albumin Globulin Albumin/Globulin Ratio Urine RBC Urine WBC Ur Squamous Epith Cells Urine Bacteria Ur Culture Indicated? Vol Urine Centrifuged Chlamy pneumoniae PCR Adenovirus (PCR) B. pertussis DNA (PCR) B.parapertussis DNA PCR Coronavirus OC43 (PCR) Coronavirus HKU1 (PCR) Coronavirus 229E (PCR) SARS-CoV-2 (PCR) Coronavirus NL63 (PCR) Human Metapneumovir PCR Influenza Type A (PCR) Influenza Type B (PCR) M. pneumoniae (PCR) Parainfluenza 1 (PCR) Parainfluenza 2 (PCR) Parainfluenza 3 (PCR) Parainfluenza 4 (PCR) RSV (PCR) Entero/Rhino (PCR) Assessment & Plan Assessment & Plan narrative: Acute on chronic heart failure exacerbation. Admit the patient to medical telemetry is inpatient. Continue IV Lasix with strict input and output as well as daily weights. Monitor renal function with IV Lasix. Hold home Torsemide for now. Possible asthma exacerbation. Continue Solumedrol and duonebs. Acute on chronic respiratory failure with hypoxemia. Note patient patient baseline O2 requirement is 2 L and now patient is requiring 3 to 4 L. Likely from above. Treat as above and wean down O2 as able. Mild elevated lactic acid 2.2. Mild. Likely from worsening hypoxemia. Treat as above and repeat lactic acid. Chronic kidney disease patient Cr is at baseline continue to monitor for now. IDDM. Monitor glucose with SQ insulin. Afib. Resume home medications including Coumadin. Note INR 2.0. Pharmacy to help dose coumadin. Monitor heart rate. DVT prophylaxis Coumadin. [employer] status full code. Disposition likely Home in 2 to 3 days Time-Based Coding :: [TOTAL MINUTES] spent with patient and on the chart (including review of chart, obtaining history, exam, reviewing outside data, placing orders, documenting exam and treatment plan, and counseling patient) on [DATE]. Quality VTE Deep Vein Thrombosis/Pulmonary Embolism Present on Admission: No
[2024-03-15] MEDS: guaiFENesin ER 600 MG TAB 1200 MG PO ×3 (02:38→21:06)
[2024-03-15] MEDS: methylPREDNISolone 125 MG/2 ML VIAL 60 MG IV ×3 (03:00→21:06)
[2024-03-15] MEDS: SODIUM CHLORIDE 0.9% FLUSH 10 ML IV ×3 (03:01→19:59)
[2024-03-15] MEDS: FUROSEMIDE 60 MG in SODIUM CHLORIDE 0.9% 50 ML 112 MG IV ×3 (03:15→19:54)
[2024-03-15] MEDS: FUROSEMIDE 40 MG/4 ML VIAL 60 MG IV (03:15)
[2024-03-15] MEDS: ALBUTEROL/IPRATROPIUM 3 ML AMPUL INH ×4 (04:07→22:45)
[2024-03-15] MEDS: OXYCODONE/ACETAMINOPHEN 5/325 TABLET 1 TAB PO ×3 (05:35→22:36)
--- NOTE | 2024-03-15 05:45 | PC.NURSE ---
On admission she reported that she did not had a fall for the past 3 months. When I talked to her this morning she said I slid out of our car yesterday. Fall precautions implemented bed alarm on. Will monitor.
[2024-03-15 06:01] LABS: Add Manual Diff / Slide Review NO; Basophils Absolute Auto 0 /uL (0-100); Basophils Percent Auto 0.5 % (0-2); Eosinophils Absolute Auto 0 /uL (0-450); Hematocrit 31.7 % (36-46); Hemoglobin 10.6 g/dL (12.0-16.0); Lymphocytes Absolute Auto 400 /uL (1100-4500); Lymphocytes Percent Auto 5.4 % (25-40); Mean Corpuscular HGB Conc 33.4 % (30-36); Mean Corpuscular Hemoglobin 30.6 PG (26-34); Mean Corpuscular Volume 91.5 fL (80-100); Monocytes Absolute Auto 100 /uL (0-900); Monocytes Percent Auto 0.9 % (3-14); Neutrophils Absolute Auto 7500 /uL (1500-7000); Neutrophils Percent Auto 93.2 % (50-75); Platelet Count 284 X10^3/uL (150-400); Red Blood Cell Count 3.46 X10^6/uL (4.0-5.2); Red Cell Distribution Width 16.3 % (11.6-14.8)
[2024-03-15 06:16] LABS: Blood Urea Nitrogen 46 mg/dL (7-17); Calcium 8.7 mg/dL (8.4-10.2); Carbon Dioxide 33 mmol/L (22-32); Chloride 93 mmol/L (98-107); Estimated Glomerular Filt Rate 48 mL/min (>60); Glucose 348 mg/dL (80-110); HEMOLYSIS < 15 (0-50); Sodium 133 mmol/L (137-145)
[2024-03-15] MEDS: LEVOTHYROXINE 75 MCG TABLET PO (06:17)
[2024-03-15 06:44] LABS: Lactate (Lactic Acid) 2.9 mmol/L (0.7-2.1)
[2024-03-15 07:49] LABS: Reflexed Lactate in 2 Hours Y
[2024-03-15] MEDS: INSULIN LISPRO 100 UNIT/ML 3ML VIAL SUBCUT ×4 (08:20→21:06)
[2024-03-15] MEDS: INSULIN GLARGINE 100 UNIT/ML 3ML PEN 30 UNIT SUBCUT (08:24)
[2024-03-15 08:37] LABS: Lactate 2HR (Lactic Acid Rflx) 3.3 mmol/L (0.7-2.1)
[2024-03-15] MEDS: DULOXETINE 30 MG CAPSULE PO (09:05)
[2024-03-15] MEDS: PANTOPRAZOLE DR 40 MG TABLET PO ×2 (09:05→21:06)
[2024-03-15] MEDS: AMIODARONE 200 MG TABLET PO (09:05)
[2024-03-15] MEDS: METOPROLOL ER 25 MG TABLET 12.5 MG PO (09:07)
[2024-03-15] MEDS: ALBUTEROL 2.5 MG/3 ML NEB (ADULT) INH ×3 (09:17→19:24)
[2024-03-15] MEDS: BUDESONIDE 0.5 MG/2 ML NEB INH ×2 (09:17→19:24)
--- NOTE | 2024-03-15 12:32 | PC.NURSE ---
Addendum entered by Jesus Soares R.N. 03/15/24 16:55: Dr. Nance aware of elevated BG. old fentanyl patch removed from L shoulder, replaced on R upper back still dyspneic during transfer from bed to chair, on 2LPM. continuing to leah lee. strict I&Os. Original Note: pt alert,oriented x3,forgetful, calm and cooperative. up to chair this morning, uses bedside commode, 2Person assist, FWW and gait belt. BG >350, Sliding scale coverage given. spouse at bedside, hizintra medication provided by family and sent to pharmacy. Dr. Nance notified of pt/family request to continue/reorder fentanyl patch (due to be changed today) and Hizintra due every Sunday (due tomorrow).
--- NOTE | 2024-03-15 12:48 | P.PN_ITS ---
Subjective Subjective Interval history: This is a 73 year old female with chronic hypoxemic respiratory failure, diabetes, CVID, COPD/bronchiectasis who was admitted with shortness of breath and acute respiratory failure with hypoxia yesterday evening. Spouse reports her weight is up nearly 20 lbs since she was discharged earlier this month from [facility]. For the last few days she has been needing 3-4 L of O2 instead of usual 1-2 and subjective dyspnea. She feels a bit better today with improved dyspnea. Reports cough is slightly more frequent, has some orthopnea, and cough is slightly productive. Exam Vital Signs (past 8 hours): - 03/15/24 06:00 03/15/24 08:00 03/15/24 08:50 Temperature 98.6 F 97.3 F L Pulse Rate 73 70 65 Respiratory Rate 16 18 Blood Pressure 103/47 L 105/53 L 102/54 L Pulse Oximetry 91 92 Oxygen Delivery Method Oxygen Flow Rate 1 2 03/15/24 09:17 03/15/24 12:00 Temperature 98.2 F Pulse Rate 81 70 Respiratory Rate 22 17 Blood Pressure 104/52 L Pulse Oximetry 96 93 Oxygen Delivery Method Nasal Cannula Oxygen Flow Rate 2 0 Fraction of Inspired Oxygen 28 Oxygen Delivery Method Nasal Cannula Oxygen Flow Rate 0 Narrative Exam Narrative: Physical Exam: GENERAL: The patient is not in any acute distressed. Awake and alert. HEENT: Nonicteric sclerae, PERRLA, EOMI. Oropharynx clear. Moist mucous membranes. Conjunctivae appear well perfused. HEART: Regular rate and rhythm without murmurs. traced lower extremities edema. LUNGS: Bibasilar rales. Slight expiratory wheeze. ABDOMEN: Soft, positive bowel sounds, nontender. SKIN: No rash, no excessive bruising, petechiae, or purpura. NEUROLOGIC: AxO x 3. Cranial nerves II-XII intact without motor/sensory deficit. Objective Labs 03/15/24 05:44 03/15/24 05:44 Labs: Laboratory Results - last 24 hr 03/14/24 03/14/24 03/14/24 16:54 17:31 20:45 WBC 10.1 RBC 4.04 Hgb 12.1 Hct 37.3 MCV 92.2 MCH 30.0 MCHC 32.6 RDW 16.7 H Plt Count 328 Neut % (Auto) 84.5 H Lymph % (Auto) 8.4 L [place] % (Auto) 6.4 Eos % (Auto) 0.0 L Baso % (Auto) 0.7 Neut # (Auto) 8500 H Lymph # (Auto) 800 L [place] # (Auto) 600 Eos # (Auto) 0 Baso # (Auto) 100 PT 22.6 H INR 2.0 H Sodium 135 L Potassium 4.5 Chloride 96 L Carbon Dioxide 36 H BUN 45 H Creatinine 1.32 H Estimated GFR 42 L BUN/Creatinine Ratio 34.1 H Glucose 300 H Lactate 3.2 H Calcium 9.1 Total Bilirubin 0.7 AST 47 H ALT 41 H Alkaline Phosphatase 59 Troponin I 0.030 NT-Pro-B Natriuret Pep 2250 H Total Protein 8.0 Albumin 3.9 Globulin 4.1 Albumin/Globulin Ratio 1.0 Urine RBC None seen Urine WBC None seen Ur Squamous Epith Cells 0-1 /hpf Urine Bacteria Many (>30) H Ur Culture Indicated? Specimen cultured Vol Urine Centrifuged 10ml (spun) Chlamy pneumoniae PCR Not detected Adenovirus (PCR) Not detected B. pertussis DNA (PCR) Not detected B.parapertussis DNA PCR Not detected Coronavirus OC43 (PCR) Not detected Coronavirus HKU1 (PCR) Not detected Coronavirus 229E (PCR) Not detected SARS-CoV-2 (PCR) Not detected Coronavirus NL63 (PCR) Not detected Human Metapneumovir PCR Not detected Influenza Type A (PCR) Not detected Influenza Type B (PCR) Not detected M. pneumoniae (PCR) Not detected Parainfluenza 1 (PCR) Not detected Parainfluenza 2 (PCR) Not detected Parainfluenza 3 (PCR) Not detected Parainfluenza 4 (PCR) Not detected RSV (PCR) Not detected Entero/Rhino (PCR) Not detected 03/14/24 03/15/24 03/15/24 20:50 05:44 08:15 WBC 8.0 RBC 3.46 L Hgb 10.6 L Hct 31.7 L MCV 91.5 MCH 30.6 MCHC 33.4 RDW 16.3 H Plt Count 284 Neut % (Auto) 93.2 H Lymph % (Auto) 5.4 L [place] % (Auto) 0.9 L Eos % (Auto) 0.0 L Baso % (Auto) 0.5 Neut # (Auto) 7500 H Lymph # (Auto) 400 L [place] # (Auto) 100 Eos # (Auto) 0 Baso # (Auto) 0 PT INR Sodium 133 L Potassium 4.0 Chloride 93 L Carbon Dioxide 33 H BUN 46 H Creatinine 1.18 H Estimated GFR 48 L BUN/Creatinine Ratio 39.0 H Glucose 348 H Lactate 2.2 H 3.3 H Calcium 8.7 Total Bilirubin AST ALT Alkaline Phosphatase Troponin I NT-Pro-B Natriuret Pep Total Protein Albumin Globulin Albumin/Globulin Ratio Urine RBC Urine WBC Ur Squamous Epith Cells Urine Bacteria Ur Culture Indicated? Vol Urine Centrifuged Chlamy pneumoniae PCR Adenovirus (PCR) B. pertussis DNA (PCR) B.parapertussis DNA PCR Coronavirus OC43 (PCR) Coronavirus HKU1 (PCR) Coronavirus 229E (PCR) SARS-CoV-2 (PCR) Coronavirus NL63 (PCR) Human Metapneumovir PCR Influenza Type A (PCR) Influenza Type B (PCR) M. pneumoniae (PCR) Parainfluenza 1 (PCR) Parainfluenza 2 (PCR) Parainfluenza 3 (PCR) Parainfluenza 4 (PCR) RSV (PCR) Entero/Rhino (PCR) 03/15/24 Unknown WBC RBC Hgb Hct MCV MCH MCHC RDW Plt Count Neut % (Auto) Lymph % (Auto) [place] % (Auto) Eos % (Auto) Baso % (Auto) Neut # (Auto) Lymph # (Auto) [place] # (Auto) Eos # (Auto) Baso # (Auto) PT INR Sodium Potassium Chloride Carbon Dioxide BUN Creatinine Estimated GFR BUN/Creatinine Ratio Glucose Lactate 2.9 H Calcium Total Bilirubin AST ALT Alkaline Phosphatase Troponin I NT-Pro-B Natriuret Pep Total Protein Albumin Globulin Albumin/Globulin Ratio Urine RBC Urine WBC Ur Squamous Epith Cells Urine Bacteria Ur Culture Indicated? Vol Urine Centrifuged Chlamy pneumoniae PCR Adenovirus (PCR) B. pertussis DNA (PCR) B.parapertussis DNA PCR Coronavirus OC43 (PCR) Coronavirus HKU1 (PCR) Coronavirus 229E (PCR) SARS-CoV-2 (PCR) Coronavirus NL63 (PCR) Human Metapneumovir PCR Influenza Type A (PCR) Influenza Type B (PCR) M. pneumoniae (PCR) Parainfluenza 1 (PCR) Parainfluenza 2 (PCR) Parainfluenza 3 (PCR) Parainfluenza 4 (PCR) RSV (PCR) Entero/Rhino (PCR) PFSH Medical History Anticoagulated Pneumonia Wears glasses Eczema Osteoarthritis Bronchiectasis (~2006) Sleep apnea Asthma (~1959) Abnormal chest xray (~1979) Restless leg syndrome Migraines (~1964) Shoulder pain (~03/2018) Osteopenia Degenerative joint disease of spine (~2001) Foot pain Fibromyalgia Chronic back pain Cervical spine disease Ankle pain MRSA (methicillin resistant Staphylococcus aureus) (~2002) Anemia Hoarseness Recurrent sinusitis (~1970) Colon polyps (~2015) Hypothyroidism Diabetes mellitus, type II (~2009) Hypertension Hyperlipidemia Nail bed carcinoma Pneumonia Surgical History Anesthesia History of thumb surgery History of carpal tunnel release History of spinal fusion (~2012) History of laminectomy (~2002) History of section History of cataract removal with insertion of prosthetic lens (~2014) Family History Father Stroke Mother Hypertension Brother Cerebral aneurysm Prostate cancer Diabetes mellitus Hypertension Stroke Brother Arthritis Hyperlipidemia Hypertension Sister History of kidney cancer Hypertension Grandfather Cancer Grandmother Cancer Other Family history non-contributory Social History marital status: household members: spouse lives independently: Yes occupational status: previously employed Smoking Status: Never smoker alcohol intake: never substance use type: does not use Assessment & Plan Assessment & Plan narrative: This is a 73 year old female with chronic hypoxemic respiratory failure, diabetes, CVID, COPD/bronchiectasis, prior LVOT obstruction s/p ablation who was admitted with shortness of breath and acute respiratory failure with hypoxia. Acute on chronic diastolic heart failure exacerbation. - continue IV lasix, add PO bumex for additional diuretic. - watch daily weights, I&Os - last TTE was 06/2023, normal EF, prior LVOT ablation. Will repeat limited TTE for reassessment. - initial troponin within normal limits, given no chest pain and unremarkable EKG COPD/bronchiectasis exacerbation. - continue with solumedrol 60 mg BID for now, likely reduce to prednisone tomorrow. - is on Fasenra q8w Acute on chronic respiratory failure with hypoxemia - secondary to 1 and 2 above. - continue steroids and diuresis as above. Chronic kidney disease stage III - monitor renal function, dose medication appropriately. IDDM. - typically has elevated glucose levels with steroids - increase lantus from 30U to 40 U daily. - sliding scale ordered. Chronic Afib on amidarone - continue home amidarone - warfarin per pharmacy CVID - - continue home hizentra on Sundays. Chronic pain - continue home fentanyl patches and oxycodone as needed. DVT prophylaxis- on Coumadin. Code: Full, surrogate is patient's spouse Disposition likely Home in 2 to 3 days, admitted inpatient. Additional history obtained via discussions with the overnight provider and patient's spouse. These discussions contributed to the creation of the above assessment and plan. I have reviewed patient's presenting documentation, labs, and imaging personally. Quality VTE Deep Vein Thrombosis/Pulmonary Embolism Present on Admission: No
--- NOTE | 2024-03-15 13:06 | DI.ECHO.S_ITS ---
[facility] : : [id number] : : [place] : : [id number] : : Phone: [phone] Echocardiogram Report + + :Name: HOANG MURRAY Study Date: 03/16/2024 Height: 60 in : [id number] ReadingLocation: Weight: 186 lb: : Gender: Female BSA: 1.8 m2 : :: 1950 Age: 74 yrs : :Reason For Study: LVOT GRADIENT AND EF : : Performed By: Peri Gonzalez : :Referring: DEVIKA YOUNGER : + + Interpretation Summary The LVOT velocity is 1.74 m/s. The mean pressure gradient is 8.5 mmHg. The max pressure gradient is 12.1 mmHg. The stroke volume index is 43.86 ml/m2. The ejection fraction is estimated to be 75-80%. The interventricular septum is flattened, consistent with a right ventricular pressure/volume condition but not as severe in comparison to prior echo study on 08/26/2022. The peak aortic velocity is 2.65 m/sec. Visually and based on peak velocity there appears to be milld aortic stenosis. There appears to be TMVR (transcatheter mitral valve replacment valve) that is new since prior echo study on 08/26/2022. It appears part of the TMVR apparatus is within the LVOT but based on LVOT velocity there appears to be no signifiant obstruction. Procedure: A two-dimensional transthoracic echocardiogram with color flow and Doppler was performed in limited views only to assess left ventricular outflow tract gradient and ejection fraction. Comparison is made with the echocardiogram of 08/26/2022. The study quality was technically difficult. The patient was in normal sinus rhythm during the exam. Left Ventricle: The LVOT velocity is 1.74 m/s. The mean pressure gradient is 8.5 mmHg. The max pressure gradient is 12.1 mmHg. The stroke volume index is 43.86 ml/m2. The ejection fraction is estimated to be 75-80%. The left ventricle is hyperdynamic. The interventricular septum is flattened, consistent with a right ventricular pressure/volume condition. Aortic Valve: The peak aortic velocity is 2.65 m/sec. MMode/2D Measurements & Calculations LVOT diam: 1.6 cm Doppler Measurements & Calculations Ao V2 max: 264.8 cm/sec LVOT Max Conner: 173.8 cm/sec Ao V2 mean: 185.3 cm/sec LV V1 max P.1 mmHg Ao max P.0 mmHg LV V1 VTI: 39.4 cm Ao mean P.5 mmHg EAGLE(I,D): 1.3 cm2 Ao V2 VTI: 60.0 cm EAGLE(V,D): 1.3 cm2 sev ratio: 0.66 EAGLE indexed to BSA (cm^2/m^2): 0.73 SV(LVOT): 79.4 ml Reading Physician:10:24 AM
[2024-03-15] MEDS: fentaNYL 25 MCG/PATCH TOP (13:37)
[2024-03-15] MEDS: BUMETANIDE 1 MG TABLET PO (13:37)
[2024-03-15] MEDS: fentaNYL 12 MCG/PATCH TOP (13:40)
--- NOTE | 2024-03-15 14:46 | CM.DANOTE ---
Patient is a 74 yo female who was admitted INPT status on 03/14/24 for CHF exac/ resp failure/edema. Pt with extensive PMH/medically fragile here with acute on chronic CHF, resp failure, and hx of chronic abx use. Baseline O2 is 2L, pt has been getting up to 4ltrs during admission. PCP Dr. Karin Porter [facility] and self pay SENIOR JAVA SOFTWARE ENGINEER reviewed EMR. Per chart, last admission was June and then Dec. Discharged home with [facility] and [facility]. Per chart review, enrolled with Comm Computer Systems Analyst program. Lives in [place] with giacomo who is a retired Ortho PA. SW confirmed that pt still gets her immunoglobin through [facility] and they ship it to their house once a week and is ordered through pt's Grounds Keeper in [place] and her home oxygen through [employer] and typically mostly uses electric scooter at baseline for mobility due to arthritis. SW met bedside with pt and explained role and she confirms above, although not currently open with [facility] at this time. Pt states she has two local supportive Dtrs and grandchildren and their son lives in [place]. 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 Pt requested to speak to SW regarding her challenges with maintaining her independence and autonomy in regards to her relationship with her who has been her primary CG the past 3-5 years, at times pt was so sick she could not manage her own appointments or medications and pt no longer drives and relies mostly on her and sometimes Dtrs. Pt states she has started to feel her has some CG burnout and showing signs of increased frustration, reduced patience, and typically tends to speak and answer for the patient. Discussed possible supportive outlets for increased communication/boundaries for the home setting and community resources. Pt very appreciative and requesting further support with bedside discussion involving her spouse prior to d/c. Plan: SW to follow closely for plan of likely discharge home and r/o HH needs at d/c and bedside Goals of Care discussion regarding pt's interest with increasing her independence and autonomy while getting assist from spouse and family as needed. MACKENZIE Love Discharge Planning/Care Management CM Discharge Assessment Start: 03/15/24 14:44 Freq: Status: Active Protocol: Document 03/15/24 14:44 BF (Rec: 03/15/24 14:46 BF [id number]) Discharge Planning Assessment Assigned Home Theater Expert MACKENZIE Pinto DPOA/Assigned Designee Name Harjeet Zavaleta Contact Information [phone] Advance Directives? Yes: Advance Directive & POLST Advance Directives on File Yes History Provided By Patient,Family Member,Medical Record Has Patient been admitted in last 30 No days? Comment Last admit 01/15/24 and discharged home Prior Living Arrangements House Household Members spouse Type of transporation used prior to Relies on Others admit Independent with ADL's Yes: mostly, needs some assist at times Is patient alert and oriented? Yes Needs Assistance With Meal Prep,Home Chores / Shopping Caregiver for Another No DME Already Rented / Owned Wheelchair Comment Has shower chair as well, home oxygen is through [employer]. 5 ltrs at baseline. Comment Follow to r/o HH Barriers to Discharge No Comment medically and physically fragile. return home w/spouse, who is a retired Orthopedic PA-C Discharge Plan Home Community Services Social Work Transportation Arrangement Spouse Referrals Initiated Other Additional Comment Provided resources for pt and spouse for better boundaries for independence/chronic illness/support groups If patient plan is home with home health not needed for Resumption : Has signed face to face form been completed? Whiteboard Updated in Patient Room with Yes name and ext. # of Home Theater Expert Review Status In Process Please Provide Date Initial DC 03/15/24 Assessment Was Performed Next Review Type Continued Stay Review
[2024-03-15] MEDS: WARFARIN 1 MG TABLET PO (16:15)
[2024-03-15] MEDS: PRAMIPEXOLE 0.25 MG TABLET 0.5 MG PO (21:05)
[2024-03-15] MEDS: FERROUS SULFATE 325 MG TABLET PO (21:05)
[2024-03-15] MEDS: TRAZODONE 50 MG TABLET 25 MG PO (21:05)
[2024-03-15] MEDS: ATORVASTATIN 20 MG TABLET 40 MG PO (21:05)
[2024-03-16] VITALS (11 sets, daily range): BP systolic 125–150; BP diastolic 54–77; PULSE 67–87; RESP 17–20; TEMP 36.1–36.9; O2SAT 93–98
[2024-03-16] MEDS: TIZANIDINE 4 MG TABLET PO (00:20)
[2024-03-16] MEDS: FUROSEMIDE 60 MG in SODIUM CHLORIDE 0.9% 50 ML 112 MG IV ×3 (04:27→18:58)
[2024-03-16] MEDS: LEVOTHYROXINE 75 MCG TABLET PO (06:13)
[2024-03-16 06:22] LABS: Add Manual Diff / Slide Review NO; Basophils Absolute Auto 0 /uL (0-100); Basophils Percent Auto 0.3 % (0-2); Eosinophils Absolute Auto 0 /uL (0-450); Hematocrit 32.2 % (36-46); Hemoglobin 10.9 g/dL (12.0-16.0); Lymphocytes Absolute Auto 400 /uL (1100-4500); Lymphocytes Percent Auto 4.1 % (25-40); Mean Corpuscular HGB Conc 33.7 % (30-36); Mean Corpuscular Hemoglobin 30.6 PG (26-34); Mean Corpuscular Volume 90.7 fL (80-100); Monocytes Absolute Auto 300 /uL (0-900); Monocytes Percent Auto 2.9 % (3-14); Neutrophils Absolute Auto 9500 /uL (1500-7000); Neutrophils Percent Auto 92.7 % (50-75); Platelet Count 290 X10^3/uL (150-400); Red Blood Cell Count 3.55 X10^6/uL (4.0-5.2); Red Cell Distribution Width 15.8 % (11.6-14.8); White Blood Cell Count 10.3 X10^3/uL (4.5-11.0)
[2024-03-16 06:29] LABS: INR 2.2 (0.9-1.3); Prothrombin Time 24.7 SECONDS (9.4-12.5)
[2024-03-16 06:41] LABS: BUN Creatinine Ratio 46.6 (6-22); Blood Urea Nitrogen 54 mg/dL (7-17); Carbon Dioxide 33 mmol/L (22-32); Chloride 95 mmol/L (98-107); Estimated Glomerular Filt Rate 49 mL/min (>60); Glucose 331 mg/dL (80-110); HEMOLYSIS < 15 (0-50); Magnesium 2.1 mg/dL (1.6-2.3); Potassium 3.5 mmol/L (3.4-5.1); Sodium 135 mmol/L (137-145)
[2024-03-16] MEDS: INSULIN LISPRO 100 UNIT/ML 3ML VIAL SUBCUT ×7 (08:14→21:24)
[2024-03-16] MEDS: ALBUTEROL 2.5 MG/3 ML NEB (ADULT) INH ×3 (08:55→19:08)
[2024-03-16] MEDS: ALBUTEROL/IPRATROPIUM 3 ML AMPUL INH ×2 (08:55→19:08)
[2024-03-16] MEDS: BUDESONIDE 0.5 MG/2 ML NEB INH ×2 (08:55→19:08)
[2024-03-16] MEDS: methylPREDNISolone 125 MG/2 ML VIAL 60 MG IV ×2 (09:43→20:24)
[2024-03-16] MEDS: PANTOPRAZOLE DR 40 MG TABLET PO ×2 (09:44→20:23)
[2024-03-16] MEDS: AMIODARONE 200 MG TABLET PO (09:44)
[2024-03-16] MEDS: DULOXETINE 30 MG CAPSULE PO (09:44)
[2024-03-16] MEDS: METOPROLOL ER 25 MG TABLET 12.5 MG PO ×2 (09:44→20:25)
[2024-03-16] MEDS: guaiFENesin ER 600 MG TAB 1200 MG PO ×2 (09:44→20:24)
[2024-03-16] MEDS: BUMETANIDE 1 MG TABLET PO (09:45)
[2024-03-16] MEDS: OXYCODONE/ACETAMINOPHEN 5/325 TABLET 1 TAB PO ×2 (09:45→20:25)
[2024-03-16] MEDS: SODIUM CHLORIDE 0.9% FLUSH 10 ML IV ×2 (09:52→20:25)
[2024-03-16] MEDS: INSULIN GLARGINE 100 UNIT/ML 3ML PEN 40 UNIT SUBCUT (09:56)
--- NOTE | 2024-03-16 13:13 | CM.DPNOTE ---
DCP Note REAL ESTATE SERVICES COORDINATOR reviewed EMR. Per hospitalist in morning rounds, continue to be on IV lasix for now. likely here another few days. currently on 2ltrs O2. no new DCP/CM needs at this time. P: anticipate home with spouse when medically stable, r/o need for HH, resume [facility] if so. CM team plans for bedside Goals of Care discussion regarding pt's interest with increasing her independence and autonomy while getting assist from spouse and family as needed. MACKENZIE Concepcion
--- NOTE | 2024-03-16 13:44 | PM.PN.1 ---
Subjective Subjective Interval history: This is a 73 year old female with chronic hypoxemic respiratory failure, diabetes, CVID, COPD/bronchiectasis who was admitted with shortness of breath and acute respiratory failure with hypoxia yesterday evening. Spouse reports her weight is up nearly 20 lbs since she was discharged earlier this month from [facility]. For the last few days she has been needing 3-4 L of O2 instead of usual 1-2 and subjective dyspnea. She feels a bit better today again with improved dyspnea. Slight improvement in cough. Exam Vital Signs (past 8 hours): - 03/16/24 08:00 03/16/24 08:56 03/16/24 09:44 Temperature 98.0 F Pulse Rate 73 83 83 Respiratory Rate 17 18 Blood Pressure 129/68 129/68 Pulse Oximetry 93 96 Oxygen Delivery Method Nasal Cannula Oxygen Flow Rate 2 2 03/16/24 11:54 Temperature 97.8 F Pulse Rate 87 Respiratory Rate 17 Blood Pressure 147/70 H Pulse Oximetry 97 Oxygen Delivery Method Oxygen Flow Rate 2 Fraction of Inspired Oxygen 28 SaO2/FiO2 Ratio 339 Oxygen Delivery Method Nasal Cannula Oxygen Flow Rate 2 Narrative Exam Narrative: Physical Exam: GENERAL: The patient is not in any acute distressed. Awake and alert. HEENT: Nonicteric sclerae, PERRLA, EOMI. Oropharynx clear. Moist mucous membranes. Conjunctivae appear well perfused. HEART: Regular rate and rhythm without murmurs. traced lower extremities edema. LUNGS: Bibasilar rales. Slight expiratory wheeze. ABDOMEN: Soft, positive bowel sounds, nontender. SKIN: No rash, no excessive bruising, petechiae, or purpura. NEUROLOGIC: AxO x 3. Cranial nerves II-XII intact without motor/sensory deficit. Objective Labs 03/16/24 05:45 03/16/24 05:45 Labs: Laboratory Results - last 24 hr 03/16/24 05:45 WBC 10.3 RBC 3.55 L Hgb 10.9 L Hct 32.2 L MCV 90.7 MCH 30.6 MCHC 33.7 RDW 15.8 H Plt Count 290 Neut % (Auto) 92.7 H Lymph % (Auto) 4.1 L [place] % (Auto) 2.9 L Eos % (Auto) 0.0 L Baso % (Auto) 0.3 Neut # (Auto) 9500 H Lymph # (Auto) 400 L [place] # (Auto) 300 Eos # (Auto) 0 Baso # (Auto) 0 PT 24.7 H INR 2.2 H Sodium 135 L Potassium 3.5 Chloride 95 L Carbon Dioxide 33 H BUN 54 H Creatinine 1.16 H Estimated GFR 49 L BUN/Creatinine Ratio 46.6 H Glucose 331 H Calcium 9.0 Magnesium 2.1 PFSH Medical History Anticoagulated Pneumonia Wears glasses Eczema Osteoarthritis Bronchiectasis (~2006) Sleep apnea Asthma (~1959) Abnormal chest xray (~1979) Restless leg syndrome Migraines (~1964) Shoulder pain (~03/2018) Osteopenia Degenerative joint disease of spine (~2001) Foot pain Fibromyalgia Chronic back pain Cervical spine disease Ankle pain MRSA (methicillin resistant Staphylococcus aureus) (~2002) Anemia Hoarseness Recurrent sinusitis (~1970) Colon polyps (~2015) Hypothyroidism Diabetes mellitus, type II (~2009) Hypertension Hyperlipidemia Nail bed carcinoma Pneumonia Surgical History Anesthesia History of thumb surgery History of carpal tunnel release History of spinal fusion (~2012) History of laminectomy (~2002) History of section History of cataract removal with insertion of prosthetic lens (~2014) Family History Father Stroke Mother Hypertension Brother Cerebral aneurysm Prostate cancer Diabetes mellitus Hypertension Stroke Brother Arthritis Hyperlipidemia Hypertension Sister History of kidney cancer Hypertension Grandfather Cancer Grandmother Cancer Other Family history non-contributory Social History marital status: household members: spouse lives independently: Yes occupational status: previously employed Smoking Status: Never smoker alcohol intake: never substance use type: does not use Assessment & Plan Assessment & Plan narrative: This is a 73 year old female with chronic hypoxemic respiratory failure, diabetes, CVID, COPD/bronchiectasis, prior LVOT obstruction s/p ablation who was admitted with shortness of breath and acute respiratory failure with hypoxia. Acute on chronic diastolic heart failure exacerbation. - continue IV lasix, added PO bumex for additional diuretic. - watch daily weights, I&Os. Was net positive yesterday, but leg edema slightly improved today. Consider increase tomorrow in diuretic. Goal net negative approx 2L daily. - last TTE was 06/2023, normal EF, prior LVOT ablation. Will repeat limited TTE for reassessment. - initial troponin within normal limits, given no chest pain and unremarkable EKG - sputum with gram negative fercho, suspect this is her chronic pseudomonas colonization given no fever nor leukocytosis. COPD/bronchiectasis exacerbation. - continue with solumedrol 60 mg BID for now, possibly reduce to prednisone tomorrow. - is on Fasenra q8w Acute on chronic respiratory failure with hypoxemia - secondary to 1 and 2 above. - continue steroids and diuresis as above. Chronic kidney disease stage III - monitor renal function, dose medication appropriately. IDDM. - typically has elevated glucose levels with steroids - increased lantus from 30U to 40 U daily, restarted meal-time dosing with 5 U AC. Adjust as needed every few days. - sliding scale ordered. Chronic Afib on amidarone - continue home amidarone - warfarin per pharmacy CVID - - continue home hizentra on Sundays. Chronic pain - continue home fentanyl patches and oxycodone as needed. Asymtomatic bacteriuria with MDR E. Coli- no current symptoms, Urine culture with a MDR E. coli, placed on contact precautions. Given no symptoms no treatment at this time is indicated. She has a history of asymptomatic bacteriuria and likely represents colonization. Should treatment be necessary appears only sensitive to carbapenem. DVT prophylaxis- on Coumadin. Code: Full, surrogate is patient's spouse Disposition likely Home in 2 to 3 days, admitted inpatient. Additional history obtained via discussions case management and pharmacist today. These discussions contributed to the creation of the above assessment and plan. I have reviewed patient's presenting documentation, labs, and imaging personally. Time-Based Coding :: [TOTAL MINUTES] spent with patient and on the chart (including review of chart, obtaining history, exam, reviewing outside data, placing orders, documenting exam and treatment plan, and counseling patient) on [DATE]. Quality VTE Deep Vein Thrombosis/Pulmonary Embolism Present on Admission: No
[2024-03-16] MEDS: AUTO INJECTOR SUBCUT (14:52)
[2024-03-16] MEDS: [UNRECOGNIZED DRUG - OTHER] SUBCUT (14:52)
[2024-03-16] MEDS: WARFARIN 1 MG TABLET PO (17:23)
[2024-03-16] MEDS: PRAMIPEXOLE 0.25 MG TABLET 0.5 MG PO (20:24)
[2024-03-16] MEDS: TRAZODONE 50 MG TABLET 25 MG PO (20:24)
[2024-03-16] MEDS: FERROUS SULFATE 325 MG TABLET PO (20:25)
[2024-03-16] MEDS: ATORVASTATIN 20 MG TABLET 40 MG PO (20:25)
[2024-03-17] VITALS (9 sets, daily range): BP systolic 134–185; BP diastolic 68–88; PULSE 60–80; RESP 16–25; TEMP 36.3–37.1; O2SAT 93–99
[2024-03-17] MEDS: FUROSEMIDE 60 MG in SODIUM CHLORIDE 0.9% 50 ML 112 MG IV ×3 (03:29→19:17)
[2024-03-17] MEDS: OXYCODONE/ACETAMINOPHEN 5/325 TABLET 1 TAB PO ×2 (03:34→20:50)
[2024-03-17] MEDS: FLUTICASONE 120 SPRAY/16 GM SPRAY.SUSP NASAL (04:05)
[2024-03-17] MEDS: ALBUTEROL/IPRATROPIUM 3 ML AMPUL INH ×3 (04:42→20:28)
[2024-03-17 06:02] LABS: Add Manual Diff / Slide Review NO; Basophils Absolute Auto 0 /uL (0-100); Basophils Percent Auto 0.2 % (0-2); Eosinophils Absolute Auto 0 /uL (0-450); Hematocrit 33.6 % (36-46); Hemoglobin 11.3 g/dL (12.0-16.0); Lymphocytes Absolute Auto 400 /uL (1100-4500); Mean Corpuscular HGB Conc 33.8 % (30-36); Mean Corpuscular Hemoglobin 30.5 PG (26-34); Mean Corpuscular Volume 90.4 fL (80-100); Monocytes Absolute Auto 400 /uL (0-900); Monocytes Percent Auto 3.3 % (3-14); Neutrophils Absolute Auto 9900 /uL (1500-7000); Neutrophils Percent Auto 92.5 % (50-75); Platelet Count 318 X10^3/uL (150-400); Red Blood Cell Count 3.71 X10^6/uL (4.0-5.2); Red Cell Distribution Width 15.9 % (11.6-14.8); White Blood Cell Count 10.7 X10^3/uL (4.5-11.0)
[2024-03-17 06:03] LABS: INR 2.4 (0.9-1.3); Prothrombin Time 26.4 SECONDS (9.4-12.5)
[2024-03-17] MEDS: LEVOTHYROXINE 75 MCG TABLET PO (06:06)
[2024-03-17 06:18] LABS: BUN Creatinine Ratio 49.6 (6-22); Blood Urea Nitrogen 56 mg/dL (7-17); Calcium 8.8 mg/dL (8.4-10.2); Carbon Dioxide 36 mmol/L (22-32); Chloride 95 mmol/L (98-107); Estimated Glomerular Filt Rate 50 mL/min (>60); Glucose 232 mg/dL (80-110); HEMOLYSIS < 15 (0-50); Magnesium 2.1 mg/dL (1.6-2.3); Potassium 3.3 mmol/L (3.4-5.1); Sodium 135 mmol/L (137-145)
[2024-03-17] MEDS: BUDESONIDE 0.5 MG/2 ML NEB INH ×2 (07:31→20:28)
[2024-03-17] MEDS: INSULIN LISPRO 100 UNIT/ML 3ML VIAL SUBCUT ×7 (07:48→20:51)
[2024-03-17] MEDS: predniSONE 20 MG TABLET 60 MG PO (08:04)
[2024-03-17] MEDS: PANTOPRAZOLE DR 40 MG TABLET PO ×2 (08:04→20:50)
[2024-03-17] MEDS: DULOXETINE 30 MG CAPSULE PO (08:05)
[2024-03-17] MEDS: BUMETANIDE 1 MG TABLET PO (08:05)
[2024-03-17] MEDS: METOPROLOL ER 25 MG TABLET 12.5 MG PO ×2 (08:05→20:51)
[2024-03-17] MEDS: guaiFENesin ER 600 MG TAB 1200 MG PO ×2 (08:05→20:50)
[2024-03-17] MEDS: AMIODARONE 200 MG TABLET PO (08:05)
[2024-03-17] MEDS: POTASSIUM CHLORIDE 20 MEQ TAB 40 MEQ PO (08:05)
[2024-03-17] MEDS: INSULIN GLARGINE 100 UNIT/ML 3ML PEN 40 UNIT SUBCUT (08:06)
[2024-03-17] MEDS: SODIUM CHLORIDE 0.9% FLUSH 10 ML IV ×2 (08:06→20:51)
--- NOTE | 2024-03-17 10:28 | PM.PN.1 ---
Subjective Subjective Interval history: This is a 73 year old female with chronic hypoxemic respiratory failure, diabetes, CVID, COPD/bronchiectasis who was admitted with shortness of breath and acute respiratory failure with hypoxia yesterday evening. Spouse reports her weight is up nearly 20 lbs since she was discharged earlier this month from [facility]. For the last few days she has been needing 3-4 L of O2 instead of usual 1-2 and subjective dyspnea. She feels a bit better today again with improved dyspnea. She is on 2L, still has large leg edema but improving. Exam Vital Signs (past 8 hours): - 03/17/24 03:00 03/17/24 04:43 03/17/24 07:00 Temperature 97.7 F 97.3 F L Pulse Rate 73 80 62 Respiratory Rate 20 25 H 18 Blood Pressure 185/85 H 142/68 H Pulse Oximetry 98 96 98 Oxygen Delivery Method Nasal Cannula Oxygen Flow Rate 2 2 2 Fraction of Inspired Oxygen 03/17/24 07:31 03/17/24 08:13 Temperature Pulse Rate 62 Respiratory Rate 16 Blood Pressure Pulse Oximetry 99 Oxygen Delivery Method Nasal Cannula Nasal Cannula Oxygen Flow Rate 2 Fraction of Inspired Oxygen 28 Fraction of Inspired Oxygen 28 SaO2/FiO2 Ratio 353 Oxygen Delivery Method Nasal Cannula Oxygen Flow Rate 2 Narrative Exam Narrative: Physical Exam: GENERAL: The patient is not in any acute distressed. Awake and alert. HEENT: Nonicteric sclerae, PERRLA, EOMI. Oropharynx clear. Moist mucous membranes. Conjunctivae appear well perfused. HEART: Regular rate and rhythm without murmurs. traced lower extremities edema. LUNGS: Bibasilar rales. Slight expiratory wheeze. ABDOMEN: Soft, positive bowel sounds, nontender. SKIN: No rash, no excessive bruising, petechiae, or purpura. NEUROLOGIC: AxO x 3. Cranial nerves II-XII intact without motor/sensory deficit. Objective Labs 03/17/24 05:46 03/17/24 05:46 Labs: Laboratory Results - last 24 hr 03/17/24 05:46 WBC 10.7 RBC 3.71 L Hgb 11.3 L Hct 33.6 L MCV 90.4 MCH 30.5 MCHC 33.8 RDW 15.9 H Plt Count 318 Neut % (Auto) 92.5 H Lymph % (Auto) 4.0 L [place] % (Auto) 3.3 Eos % (Auto) 0.0 L Baso % (Auto) 0.2 Neut # (Auto) 9900 H Lymph # (Auto) 400 L [place] # (Auto) 400 Eos # (Auto) 0 Baso # (Auto) 0 PT 26.4 H INR 2.4 H Sodium 135 L Potassium 3.3 L Chloride 95 L Carbon Dioxide 36 H BUN 56 H Creatinine 1.13 H Estimated GFR 50 L BUN/Creatinine Ratio 49.6 H Glucose 232 H Calcium 8.8 Magnesium 2.1 PFSH Medical History Anticoagulated Pneumonia Wears glasses Eczema Osteoarthritis Bronchiectasis (~2006) Sleep apnea Asthma (~1959) Abnormal chest xray (~1979) Restless leg syndrome Migraines (~1964) Shoulder pain (~03/2018) Osteopenia Degenerative joint disease of spine (~2001) Foot pain Fibromyalgia Chronic back pain Cervical spine disease Ankle pain MRSA (methicillin resistant Staphylococcus aureus) (~2002) Anemia Hoarseness Recurrent sinusitis (~1970) Colon polyps (~2015) Hypothyroidism Diabetes mellitus, type II (~2009) Hypertension Hyperlipidemia Nail bed carcinoma Pneumonia Surgical History Anesthesia History of thumb surgery History of carpal tunnel release History of spinal fusion (~2012) History of laminectomy (~2002) History of section History of cataract removal with insertion of prosthetic lens (~2014) Family History Father Stroke Mother Hypertension Brother Cerebral aneurysm Prostate cancer Diabetes mellitus Hypertension Stroke Brother Arthritis Hyperlipidemia Hypertension Sister History of kidney cancer Hypertension Grandfather Cancer Grandmother Cancer Other Family history non-contributory Social History marital status: household members: spouse lives independently: Yes occupational status: previously employed Smoking Status: Never smoker alcohol intake: never substance use type: does not use Assessment & Plan Assessment & Plan narrative: This is a 73 year old female with chronic hypoxemic respiratory failure, diabetes, CVID, COPD/bronchiectasis, prior LVOT obstruction s/p ablation who was admitted with shortness of breath and acute respiratory failure with hypoxia. Acute on chronic diastolic heart failure exacerbation. - continue IV lasix, added PO bumex for additional diuretic. - watch daily weights, I&Os. Was net negative 1L , leg edema improving. Will continue current furosemide and bumex. - last TTE was 06/2023, normal EF, prior LVOT ablation. Limited TTE pending for repeat assessment. - initial troponin within normal limits, given no chest pain and unremarkable EKG - sputum with her chronic pseudomonas colonization, given no fever nor leukocytosis no need for treatment. COPD/bronchiectasis exacerbation. - continue with solumedrol 60 mg BID for now, possibly reduce to prednisone tomorrow. - is on Fasenra q8w Acute on chronic respiratory failure with hypoxemia - secondary to 1 and 2 above. - continue steroids and diuresis as above. Chronic kidney disease stage III - monitor renal function, dose medication appropriately. IDDM. - typically has elevated glucose levels with steroids - increased lantus from 30U to 40 U daily, restarted meal-time dosing with 5 U AC. Adjust as needed every few days. - sliding scale ordered. Chronic Afib on amidarone - continue home amidarone - warfarin per pharmacy CVID - - continue home hizentra on Sundays. Chronic pain - continue home fentanyl patches and oxycodone as needed. Asymtomatic bacteriuria with MDR E. Coli- no current symptoms, Urine culture with a MDR E. coli, placed on contact precautions. Given no symptoms no treatment at this time is indicated. She has a history of asymptomatic bacteriuria and likely represents colonization. Should treatment be necessary appears only sensitive to carbapenem. DVT prophylaxis- on Coumadin. Code: Full, surrogate is patient's spouse Disposition likely Home in 1-2 days, hopeful for tomorrow. Additional history obtained via discussions case management and pharmacist today. These discussions contributed to the creation of the above assessment and plan. I have reviewed patient's presenting documentation, labs, and imaging personally. Time-Based Coding :: [TOTAL MINUTES] spent with patient and on the chart (including review of chart, obtaining history, exam, reviewing outside data, placing orders, documenting exam and treatment plan, and counseling patient) on [DATE]. Quality VTE Deep Vein Thrombosis/Pulmonary Embolism Present on Admission: No
--- NOTE | 2024-03-17 14:28 | CM.DPC ---
DCP Cont: Per MD, pt making progress with dieresis and oxygen needs but not yet medically stable to discharge today. MD to order PT/OT tomorrow Tues when more medically stable. SW met bedside with pt and spouse for extensive conversation regarding some Goal of Care, LTC planning, and pt autonomy and community resources/supports. Spouse confirms that pt has many upcoming appointments with Pulmonology, Cardiology, Neurology, and PCP and then scheduled for SECRETARY ADMINISTRATIVE ASSISTANT session at PCP office on 04/03/24 for emotional support with chronic illness. Spouse also has pt approved for [facility] although spouse feels he can manage her transport at this time but states it has gotten a little more difficult and we might need paratransit in the near future. Pt was able to express that she feels that she would like to start attempting to be more involved in managing some of her upcoming appointments towards feeling a sense of involvement and independence and brainstormed possible options. Spouse has also begun exploring a hired caregiver through [employer] and made some calls to Assisted Living facilities in case needed in the future but both confirmed their goal is to remain in the home as long as possible as house very ADA accessible. Spouse confirms that pt seems more forgetful lately and safety awareness issues recently and pt not safe to be left home alone. No hx of cognitive assessment and spouse would be agreeable with OT alex for SLUMS for baseline assessment. SW updated MD and he confirms agreeable. Pt and spouse state that pt is currently open with [facility] for RN/PT and they would like this to continue at d/c and would be agreeable with SECRETARY ADMINISTRATIVE ASSISTANT to be added. SW sent clinicals to [facility] and they confirm that pt will only need Resumption Orders at d/c. Plan: SW to follow for plan of discharge home in a couple days with spouse assist and Resumption of [facility]. MACKENZIE Love
[2024-03-17] MEDS: WARFARIN 1 MG TABLET PO (16:57)
[2024-03-17] MEDS: PRAMIPEXOLE 0.25 MG TABLET 0.5 MG PO (20:50)
[2024-03-17] MEDS: FERROUS SULFATE 325 MG TABLET PO (20:51)
[2024-03-17] MEDS: ATORVASTATIN 20 MG TABLET 40 MG PO (20:51)
[2024-03-17] MEDS: TRAZODONE 50 MG TABLET 25 MG PO (20:51)
[2024-03-18] VITALS: BP 140/76; PULSE 86; RESP 18; TEMP 36.5; O2SAT 94
--- NOTE | 2024-03-18 02:15 | PC.NURSE ---
Assumed care of patient at 0100, pt in bed, bed alarm within reach.
[2024-03-18] MEDS: OXYCODONE/ACETAMINOPHEN 5/325 TABLET 1 TAB PO (02:36)
[2024-03-18 04:00] VITALS: BP 138/67; PULSE 86; RESP 19; TEMP 36.6; O2SAT 94
[2024-03-18 05:47] LABS: Add Manual Diff / Slide Review NO; Basophils Absolute Auto 0 /uL (0-100); Basophils Percent Auto 0.2 % (0-2); Eosinophils Absolute Auto 0 /uL (0-450); Hematocrit 35.8 % (36-46); Hemoglobin 11.6 g/dL (12.0-16.0); Lymphocytes Absolute Auto 800 /uL (1100-4500); Lymphocytes Percent Auto 8.3 % (25-40); Mean Corpuscular HGB Conc 32.4 % (30-36); Mean Corpuscular Hemoglobin 29.9 PG (26-34); Mean Corpuscular Volume 92.2 fL (80-100); Monocytes Absolute Auto 1200 /uL (0-900); Monocytes Percent Auto 11.4 % (3-14); Neutrophils Absolute Auto 8200 /uL (1500-7000); Neutrophils Percent Auto 80.1 % (50-75); Platelet Count 312 X10^3/uL (150-400); Red Blood Cell Count 3.88 X10^6/uL (4.0-5.2); Red Cell Distribution Width 16.1 % (11.6-14.8); White Blood Cell Count 10.2 X10^3/uL (4.5-11.0)
[2024-03-18 06:00] LABS: INR 2.7 (0.9-1.3); Prothrombin Time 30.1 SECONDS (9.4-12.5)
[2024-03-18 06:08] LABS: Blood Urea Nitrogen 52 mg/dL (7-17); Calcium 8.7 mg/dL (8.4-10.2); Carbon Dioxide 34 mmol/L (22-32); Chloride 98 mmol/L (98-107); Estimated Glomerular Filt Rate 56 mL/min (>60); Glucose 163 mg/dL (80-110); HEMOLYSIS 27 (0-50); Magnesium 2.1 mg/dL (1.6-2.3); Potassium 3.6 mmol/L (3.4-5.1); Sodium 134 mmol/L (137-145)
[2024-03-18] MEDS: LEVOTHYROXINE 75 MCG TABLET PO (06:32)
[2024-03-18 08:00] VITALS: BP 148/61; PULSE 57; RESP 18; TEMP 36.4; O2SAT 94
[2024-03-18] MEDS: INSULIN LISPRO 100 UNIT/ML 3ML VIAL SUBCUT ×2 (08:16)
[2024-03-18 08:17] VITALS: BP 148/61; PULSE 64
[2024-03-18] MEDS: AMIODARONE 200 MG TABLET PO (08:17)
[2024-03-18] MEDS: METOPROLOL ER 25 MG TABLET 12.5 MG PO (08:17)
[2024-03-18] MEDS: DULOXETINE 30 MG CAPSULE PO (08:18)
[2024-03-18] MEDS: guaiFENesin ER 600 MG TAB 1200 MG PO (08:18)
[2024-03-18] MEDS: POTASSIUM CHLORIDE 20 MEQ TAB PO (08:18)
[2024-03-18] MEDS: BUMETANIDE 1 MG TABLET PO (08:18)
[2024-03-18] MEDS: POTASSIUM CHLORIDE 20 MEQ TAB 40 MEQ PO (08:18)
[2024-03-18] MEDS: predniSONE 20 MG TABLET 60 MG PO (08:19)
[2024-03-18] MEDS: INSULIN GLARGINE 100 UNIT/ML 3ML PEN 40 UNIT SUBCUT (08:19)
[2024-03-18] MEDS: PANTOPRAZOLE DR 40 MG TABLET PO (08:19)
[2024-03-18 08:35] VITALS: PULSE 87; RESP 18; O2SAT 96
[2024-03-18] MEDS: BUDESONIDE 0.5 MG/2 ML NEB INH (08:35)
[2024-03-18] MEDS: ALBUTEROL/IPRATROPIUM 3 ML AMPUL INH ×2 (08:35→10:21)
--- NOTE | 2024-03-18 09:04 | PM.DS.1 ---
History of Present Illness History of Present Illness Date Patient Seen: 03/18/24 Time Patient Seen: 09:04 Chief complaint: Congestive Heart Failure Narrative: Per admitting provider, 74 year-old female with past medical history of CHF, asthma, chronic respiratory failure with hypoxemia requiring 2 L of O2 at baseline, Hyperlipidemia, insulin dependent diabetes, atrial fibrillation, and hypothyroidism presents with shortness of breath. Per the patient report, over the last few weeks, the patient has have increasing shortness of breath. The patient also noticed some increasing lower extremity edema, despite having her increased from Torsemide 20 mg twice a day to 40 mg twice a day. The patient also noticed the rapid weight gain. Otherwise the patient denies any fever, chills, chest pain, nausea, vomiting or diarrhea. In our emergency room, the patient was requiring 3 to 4 L of O2 per cannula. Lab shows INR 2.0 normal WBC Cran and 1.3 glucose 300 lactate 2.2 and BMP of 2200s. The patient was given 60 mg of IV Lasix, Solumedrol of 60 mg and duonebs. CXR shows no sign of PNA. Discharge Providers Provider Date of admission: 03/14/24 20:34 Discharge Date: 03/18/24 Primary care physician: Karin Porter MD Discharge provider: Harjeet Nance DO Summary Hospital Course Discharge Diagnosis: Acute on chronic diastolic heart failure exacerbation. COPD/bronchiectasis exacerbation. Acute on chronic respiratory failure with hypoxemia Chronic kidney disease stage III IDDM. Chronic Afib on amidarone CVID - Chronic pain Asymtomatic bacteriuria with MDR E. Coli- Hospital Course: This is a 73 year old female with chronic hypoxemic respiratory failure, diabetes, CVID, COPD/bronchiectasis, prior LVOT obstruction s/p ablation who was admitted with shortness of breath and acute on chronic respiratory failure with hypoxia. She had had recent weight gain despite increasing diuretics at home, and the etiology for her acute respiratory failure was likely due to CHF exacerbation. Her acute respiratory failure resolved quite quickly, though her dyspnea continued for a couple of days. She was also treated with steroids but given her improvement primarily with diuresis she can resume her usual prednisone dose at the time of discharge. After adequate diuresis she felt much improved and was discharged home. Her sputum culture did grow Pseudomonas which is chronic for her, and given a lack of leukocytosis and continued improvement despite antibiotics this was not further treated as it likely represents colonization. She was also noted to have asymptomatic bacteriuria with a multidrug resistant E coli, this has also happened previously and was not recommended for treatment at this time. For her diuretics she was continued on IV furosemide with the addition of Bumex here in the hospital. At the time of discharge she was recommended to continue her 40 mg twice a day of torsemide, and Bumex was also added. She was instructed to monitor her weights, and if increasing she can double her dose of Bumex. She has a follow-up with cardiology on Sunday, and her primary care provider next week. No other changes to her home medications were recommended at the time of discharge. Time Spent with Patient Time spent: Greater than 30 minutes Exam Vital Signs (past 8 hours): - 03/18/24 04:00 03/18/24 08:00 03/18/24 08:17 Temperature 97.8 F 97.6 F Pulse Rate 86 57 L 64 Respiratory Rate 19 18 Blood Pressure 138/67 148/61 H 148/61 H Pulse Oximetry 94 94 Oxygen Delivery Method Oxygen Flow Rate 2 2 Fraction of Inspired Oxygen 03/18/24 08:35 Temperature Pulse Rate 87 Respiratory Rate 18 Blood Pressure Pulse Oximetry 96 Oxygen Delivery Method Nasal Cannula Oxygen Flow Rate 2 Fraction of Inspired Oxygen 24 Fraction of Inspired Oxygen 24 SaO2/FiO2 Ratio 400 Oxygen Delivery Method Nasal Cannula Oxygen Flow Rate 2 Narrative Exam Narrative: Physical Exam: GENERAL: The patient is not in any acute distressed. Awake and alert. HEENT: Nonicteric sclerae, PERRLA, EOMI. Oropharynx clear. Moist mucous membranes. Conjunctivae appear well perfused. HEART: Regular rate and rhythm without murmurs. traced lower extremities edema. LUNGS: Bibasilar rales. Slight expiratory wheeze. ABDOMEN: Soft, positive bowel sounds, nontender. SKIN: No rash, no excessive bruising, petechiae, or purpura. NEUROLOGIC: AxO x 3. Cranial nerves II-XII intact without motor/sensory deficit. Objective Labs 03/18/24 05:32 03/18/24 05:32 Labs: Laboratory Results - last 24 hr 03/18/24 05:32 WBC 10.2 RBC 3.88 L Hgb 11.6 L Hct 35.8 L MCV 92.2 MCH 29.9 MCHC 32.4 RDW 16.1 H Plt Count 312 Neut % (Auto) 80.1 H Lymph % (Auto) 8.3 L Mcminn % (Auto) 11.4 Eos % (Auto) 0.0 L Baso % (Auto) 0.2 Neut # (Auto) 8200 H Lymph # (Auto) 800 L Mcminn # (Auto) 1200 H Eos # (Auto) 0 Baso # (Auto) 0 PT 30.1 H INR 2.7 H Sodium 134 L Potassium 3.6 Chloride 98 Carbon Dioxide 34 H BUN 52 H Creatinine 1.04 Estimated GFR 56 L BUN/Creatinine Ratio 50.0 H Glucose 163 H Calcium 8.7 Magnesium 2.1 PFSH Medical History Anticoagulated Pneumonia Wears glasses Eczema Osteoarthritis Bronchiectasis (~2006) Sleep apnea Asthma (~1959) Abnormal chest xray (~1979) Restless leg syndrome Migraines (~1964) Shoulder pain (~03/2018) Osteopenia Degenerative joint disease of spine (~2001) Foot pain Fibromyalgia Chronic back pain Cervical spine disease Ankle pain MRSA (methicillin resistant Staphylococcus aureus) (~2002) Anemia Hoarseness Recurrent sinusitis (~1970) Colon polyps (~2015) Hypothyroidism Diabetes mellitus, type II (~2009) Hypertension Hyperlipidemia Nail bed carcinoma Pneumonia Surgical History Anesthesia History of thumb surgery History of carpal tunnel release History of spinal fusion (~2012) History of laminectomy (~2002) History of section History of cataract removal with insertion of prosthetic lens (~2014) Family History Father Stroke Mother Hypertension Brother Cerebral aneurysm Prostate cancer Diabetes mellitus Hypertension Stroke Brother Arthritis Hyperlipidemia Hypertension Sister History of kidney cancer Hypertension Grandfather Cancer Grandmother Cancer Other Family history non-contributory Social History marital status: household members: spouse lives independently: Yes occupational status: previously employed Smoking Status: Never smoker alcohol intake: never substance use type: does not use Discharge Plan Discharge Plan Patient Disposition: Home Provider Discharge Comment: You were admitted to the hospital with a heart failure exacerbation and volume overload. Started bumex. Continue furosemide, if weight is going up at home still you can take 2 tabs of bumex per day. Follow up with cardiology as planned on Sunday. Discharge orders & Medications Prescriptions: New bumetanide 0.5 mg tablet 0.5 mg PO DAILY 30 Days Qty: 30 0RF Continued polyethylene glycol 3350 [Miralax] 119 GM powder 17 gm PO DAILY PRN (Reason: Constipation) Qty: 0 (DME) insulin syringe-needle U-100 [BD Insulin Syringe Ultra-Fine] 0.5 mL 31 gauge x 5/16 syringe See Rx Instructions .ROUTE .MEDSUPPLY Qty: 100 1RF Rx Instructions: Use once a day as directed metformin 1,000 mg tablet 1,000 mg PO BID Qty: 180 0RF (DME) verio reflect glucometer Qty: 1 0RF Rx Instructions: As directed ferrous sulfate 325 mg (65 mg iron) tablet 325 mg PO BEDTIME tizanidine 4 mg capsule 4 mg PO QID PRN (Reason: Muscle Spasm) cholecalciferol (vitamin D3) 2,000 unit tablet 2,000 unit PO DAILY albuterol sulfate 90 mcg/actuation HFA aerosol inhaler 2 puff INHALATION Q4-6H PRN (Reason: Shortness Of Breath) lansoprazole [Prevacid 24Hr] 15 mg Capsule,Delayed Release(Dr/Ec) 30 mg PO BID fentanyl 25 mcg/hr patch 72 hour 1 patch transdermal Q72H PRN (Reason: pain (scale score 1-3)) Qty: 5 0RF Patient Comments: placed today at home omega-3 fatty acids Capsule 1,000 mg PO DAILY fluticasone propion-salmeterol [Advair Diskus] 500-50 mcg/dose Blister With Device 1 inh INHALATION Q12H Hizintra 15 g auto-injector 15 g SUBCUT QWEEK Rx Instructions: pt takes on Sundays. calcium carbonate 200 mg calcium (500 mg) Tablet,Chewable 1,000 mg PO Q4HR PRN (Reason: Dyspepsia) Qty: 60 0RF docusate sodium 100 mg Capsule 100 mg PO BID Qty: 60 0RF alum-mag hydroxide-simeth [Mag-Al Plus] 200-200-20 mg/5 mL Suspension 30 ml PO Q6HR PRN (Reason: Dyspepsia) Qty: 355 0RF sennosides [senna] 8.6 mg Tablet 17.2 mg PO BEDTIME Qty: 60 0RF metoprolol succinate 25 mg tablet extended release 24 hr 12.5 mg PO BID torsemide 20 mg tablet 40 mg PO BID magnesium oxide 400 mg magnesium Tablet 400 mg PO BID sodium chloride 3 % Solution For Nebulization 3 ml INHALATION BID Rx Instructions: use w/ nebulizer 2 x daily montelukast [Singulair] 10 mg Tablet 10 mg PO BEDTIME Zyrtec 10 mg Capsule 10 mg PO DAILY atorvastatin 40 mg Tablet 40 mg PO BEDTIME levothyroxine 75 mcg Tablet 75 mcg PO QAM epinephrine [EpiPen] 0.3 mg/0.3 mL Auto-Injector 0.3 mg IM Q5-15M PRN (Reason: Allergic Reaction) Rx Instructions: do not exceed 3 doses per episode tiotropium bromide [Spiriva with HandiHaler] 18 mcg Capsule, W/Inhalation Device 1 cap INHALATION DAILY Rx Instructions: puncture 1 cap using device; one dose = 2 inhalations insulin glargine 100 unit/mL solution 30 unit SUBCUT QAM insulin lispro [Humalog KwikPen Insulin] 100 unit/mL insulin pen 2 - 8 unit SUBCUT TID Rx Instructions: SLIDING SCALE USED AT HOME. pramipexole 0.5 mg tablet 0.5 mg PO BEDTIME duloxetine 30 mg Capsule,Delayed Release(Dr/Ec) 30 mg PO DAILY guaifenesin [Mucinex] 1,200 mg Tablet Extended Release 12hr 1,200 mg PO BID prednisone 5 mg tablet 5 mg PO DAILY [id number] 50-325-40 mg Tablet 1 tab PO Q6H PRN (Reason: Migraine Headache) oxycodone 5 mg Capsule 15 mg PO Q6H PRN (Reason: Pain (Scale Score 7-10)) Fasenra 30 mg/mL Syringe 30 mg SUBCUT Q8W fentanyl 12 mcg/hr patch 72 hour 12 mcg transdermal SEEINSTR Patient Comments: apply 1 patch to CLEAN, DRY, AND INTACT SKIN every 72 hours Rx Instructions: Q72HR in addition to 25mcg patch warfarin 1 mg tablet 1 mg PO DAILY Patient Comments: took 0.5 mg 03/13/24 Rx Instructions: Patient's states dose has been around 0.5mg two days a week and 1mg all other days amiodarone 200 mg tablet 200 mg PO DAILY potassium chloride 20 mEq/15 mL liquid 10 meq PO BIDWM clotrimazole 10 mg aneesh 10 mg PO 5XD acetaminophen 325 mg Tablet 650 mg PO Q6H PRN (Reason: Pain, Mild) ondansetron HCl 4 mg tablet 4 mg PO Q8H PRN (Reason: Nausea And Vomiting) miconazole nitrate 2 % Powder 1 applic TOPICAL QID PRN (Reason: Rash) acyclovir 5 % Ointment 1 applic TOPICAL Q4-5H PRN (Reason: Rash) diclofenac sodium 1 % Gel 4 g TOPICAL QID PRN (Reason: JOINT PAIN) ipratropium-albuterol 0.5 mg-3 mg(2.5 mg base)/3 mL Solution For Nebulization 3 ml INHALATION BID oxymetazoline 0.05 % Drops 1 drp INTRANASAL BID naloxone 4 mg/actuation spray,non-aerosol 1 spray intranasal NOW PRN (Reason: OVERDOSE) trazodone 25 mg PO BEDTIME Follow up/Referrals: Karin Porter MD [Primary Care Provider] - Diet/Activity/Treatments Diet: Diet as Tolerated and Low-sodium Activity: As tolerated, no restrictions. Oxygen: Goal O2 89-96% on room air. Visit Report/Discharge Packet Stand Alone Forms: Patient Portal/API, Stroke Signs & Symptoms Discharge Data Primary Care Provider: Karin Porter Quality VTE Deep Vein Thrombosis/Pulmonary Embolism Present on Admission: No
[2024-03-18 10:21] VITALS: PULSE 89; RESP 18; O2SAT 96
== END 2024-03-18 12:10 | disposition home health service (06) | DRG 291 ==
LOC: ED 20:33 → AC 20:35
PROVIDERS: Emergency Medicine; Internal Medicine; Admitting Provider Internal Medicine; Emergency Provider Emergency Medicine; Family Provider Internal Medicine Infectious Disease; PCP Internal Medicine; Referring Provider Emergency Medicine; Visit Provider Internal Medicine
DX: I13.0 Hypertensive heart and chronic kidney disease with heart failure and stage 1 through stage 4 chronic kidney disease, or unspecified chronic kidney disease (principal); I50.33 Acute on chronic diastolic (congestive) heart failure; J96.21 Acute and chronic respiratory failure with hypoxia; I48.20 Chronic atrial fibrillation, unspecified; J44.1 Chronic obstructive pulmonary disease with (acute) exacerbation; J47.1 Bronchiectasis with (acute) exacerbation; D83.9 Common variable immunodeficiency, unspecified; Z16.24 Resistance to multiple antibiotics; E11.22 Type 2 diabetes mellitus with diabetic chronic kidney disease; N18.30 Chronic kidney disease, stage 3 unspecified; G89.29 Other chronic pain; R82.71 Bacteriuria; B96.20 Unspecified Escherichia coli [E. coli] as the cause of diseases classified elsewhere; E78.5 Hyperlipidemia, unspecified; E03.9 Hypothyroidism, unspecified; Z79.01 Long term (current) use of anticoagulants; Z99.81 Dependence on supplemental oxygen; Z79.4 Long term (current) use of insulin; Z22.39 Carrier of other specified bacterial diseases; Z79.84 Long term (current) use of oral hypoglycemic drugs
CPT/HCPCS: 36415; 71045; 80048; 80053; 81015; 82962; 83605; 83735; 83880; 84484; 85025; 85610; 87070; 87077; 87086; 87186; 87205; 87633; 93005; 93307; 94640; 94660; 96365; 96375; 99285; J1644; J1815; J1940; J2919; J7613

== ENCOUNTER 2024-04-09 12:49 | Inpatient (IN) | payer OTHER, SELFPAY ==
[2023-05-06 18:45] VITALS: PULSE 72; RESP 20; O2SAT 95
[2024-03-14 21:51] VITALS: BMI 36.3
[2024-04-09] VITALS (10 sets, daily range): BP systolic 100–130; BP diastolic 53–66; PULSE 51–61; RESP 12–30; TEMP 35.9–36.1; O2SAT 89–99; BMI 29.9
--- NOTE | 2024-04-09 13:13 | PC.NURSE ---
Pt seen recently at [facility], and returned home. However, states that she has been getting progressively weak, lethargic.
--- NOTE | 2024-04-09 13:18 | PC.NURSE ---
Pt comes from home with her own purwick in place. Nurse attached to suction canister on wall.
[2024-04-09 13:25] LABS: Add Manual Diff / Slide Review NO; Basophils Absolute Auto 100 /uL (0-100); Basophils Percent Auto 0.8 % (0-2); Eosinophils Absolute Auto 0 /uL (0-450); Hematocrit 42.7 % (36-46); Hemoglobin 14.4 g/dL (12.0-16.0); Lymphocytes Absolute Auto 1400 /uL (1100-4500); Lymphocytes Percent Auto 17.1 % (25-40); Mean Corpuscular HGB Conc 33.7 % (30-36); Mean Corpuscular Hemoglobin 30.6 PG (26-34); Mean Corpuscular Volume 90.8 fL (80-100); Monocytes Absolute Auto 1100 /uL (0-900); Monocytes Percent Auto 12.7 % (3-14); Neutrophils Absolute Auto 5800 /uL (1500-7000); Neutrophils Percent Auto 69.4 % (50-75); Platelet Count 409 X10^3/uL (150-400); Red Blood Cell Count 4.71 X10^6/uL (4.0-5.2); Red Cell Distribution Width 16.2 % (11.6-14.8); White Blood Cell Count 8.4 X10^3/uL (4.5-11.0)
--- NOTE | 2024-04-09 13:29 | ED_ITS ---
HPI - General Adult General Chief complaint: Weakness Stated complaint: Weakness,lethargic Time Seen by Provider: 04/09/24 13:17 History of Present Illness HPI narrative: 74-year-old woman with a history of bronchiectasis, obstructive cardiomyopathy with common variable immune deficiency disorder was admitted at [facility] from March 29 through the . She had been admitted to [facility] with volume overload eventually transferred to [facility], she has ESBL E coli in her urine, she had Pseudomonas in her sputum. She was eventually treated with parenteral Lasix and parenteral meropenem. She was discharged home with torsemide 40 mg b.i.d. and metolazone Sunday. Her notes that she has been drinking water when she has an appl juice but no significant solid intake since discharge from the hospital. She was not discharged home on antibiotics. She is having moderate urine output. He notes she is simply becoming more weak/lethargic and he was increasingly concerned. Patient can offer very little to overall history Related Data Home Medications Medication Instructions Recorded Confirmed polyethylene glycol 3350 17 17 gm PO DAILY PRN Constipation ##0 06/06/17 03/14/24 gram/dose oral powder (Miralax) albuterol sulfate 90 mcg/actuation 2 puff inhalation Q4-6H PRN 05/29/19 03/14/24 aerosol inhaler Shortness Of Breath cholecalciferol (vitamin D3) 50 2,000 unit PO DAILY 05/29/19 04/09/24 mcg (2,000 unit) tablet ferrous sulfate 325 mg (65 mg 325 mg PO QPM 05/29/19 04/09/24 iron) tablet tizanidine 4 mg capsule 4 mg PO QID PRN Muscle Spasm 05/29/19 03/14/24 sodium chloride 3 % for 3 ml inhalation BID 06/05/19 03/14/24 nebulization cetirizine 10 mg capsule (Zyrtec) 10 mg PO DAILY allergies 01/20/20 04/09/24 montelukast 10 mg tablet 10 mg PO BEDTIME 01/20/20 04/09/24 (Singulair) atorvastatin 40 mg tablet 40 mg PO QPM 04/20/21 04/09/24 epinephrine 0.3 mg/0.3 mL 0.3 mg IM Q5-15M PRN Allergic 04/20/21 03/14/24 injection, auto-injector (EpiPen) Reaction insulin glargine 100 unit/mL 30 unit SUBCUT QAM 04/20/21 03/14/24 subcutaneous solution insulin lispro 100 unit/mL 2 - 8 unit SUBCUT TID 04/20/21 03/14/24 subcutaneous pen (Humalog KwikPen (U-100) Insulin) levothyroxine 75 mcg tablet 75 mcg PO QAM 04/20/21 04/09/24 tiotropium bromide 18 mcg capsule 1 cap inhalation DAILY 04/20/21 03/14/24 with inhalation device (Spiriva with HandiHaler) lansoprazole 15 mg capsule,delayed 30 mg PO BID 04/29/21 03/14/24 release (Prevacid 24Hr) duloxetine 30 mg capsule,delayed 30 mg PO DAILY 06/28/21 04/09/24 release guaifenesin 1,200 mg tablet, 1,200 mg PO BID 06/28/21 03/14/24 extended release 12 hr (Mucinex) pramipexole 0.5 mg tablet 0.5 mg PO BEDTIME 06/28/21 04/09/24 omega-3 fatty acids 1,000 mg PO DAILY 04/24/22 04/09/24 benralizumab 30 mg/mL subcutaneous 30 mg SUBCUT Q8W 06/03/22 03/14/24 syringe (Fasenra) ezbheainbo-chviybxpwwckr-kkoxllad 1 tab PO Q6H PRN Migraine Headache 06/03/22 03/14/24 50 mg-325 mg-40 mg tablet oxycodone 5 mg capsule 15 mg PO Q6H PRN Pain (Scale Score 06/03/22 03/14/24 7-10) prednisone 5 mg tablet 5 mg PO DAILY 06/03/22 04/09/24 Hizintra 15 g SUBCUT QWEEK 08/25/22 03/14/24 fluticasone 500 mcg-salmeterol 50 1 inh inhalation Q12H 08/25/22 03/14/24 mcg/dose blistr powdr for inhalation (Advair Diskus) fentanyl 12 mcg/hr transdermal 12 mcg transdermal SEEINSTR 10/13/22 03/14/24 patch warfarin 1 mg tablet 1 mg PO DAILY 10/13/22 04/09/24 magnesium oxide 400 mg PO DAILY 04/08/23 04/09/24 metoprolol succinate 25 mg 12.5 mg PO BID 04/08/23 04/09/24 tablet,extended release 24 hr torsemide 20 mg tablet 40 mg PO BID 04/08/23 04/09/24 acetaminophen 325 mg tablet 650 mg PO Q6H PRN Pain, Mild 06/19/23 03/14/24 acyclovir 5 % topical ointment 1 applic topical Q4-5H PRN Rash 06/19/23 03/14/24 amiodarone 200 mg tablet 200 mg PO DAILY 06/19/23 04/09/24 clotrimazole 10 mg aneesh 10 mg PO 5XD 06/19/23 03/14/24 diclofenac sodium 1 % topical gel 4 g topical QID PRN JOINT PAIN 06/19/23 03/14/24 ipratropium 0.5 mg-albuterol 3 mg 3 ml inhalation BID 06/19/23 03/14/24 (2.5 mg base)/3 mL nebulization soln miconazole nitrate 2 % topical 1 applic topical QID PRN Rash 06/19/23 03/14/24 powder naloxone 4 mg/actuation nasal spray 1 spray intranasal NOW PRN OVERDOSE 06/19/23 03/14/24 ondansetron HCl 4 mg tablet 4 mg PO Q8H PRN Nausea And Vomiting 06/19/23 03/14/24 oxymetazoline 0.05 % nasal drops 1 drp intranasal BID 06/19/23 03/14/24 potassium chloride 20 mEq/15 mL 10 meq PO BIDWM 06/19/23 03/14/24 oral liquid trazodone 25 mg PO BEDTIME 03/14/24 03/14/24 acidophilus 100 million 1 cap PO QPM 04/09/24 04/09/24 cell-pectin, citrus 10 mg capsule ascorbic acid (vitamin C) 1,000 mg 1,000 mg PO QPM 04/09/24 04/09/24 tablet guaifenesin 1,200 mg tablet, 1,200 mg PO BID 04/09/24 04/09/24 extended release 12 hr (Mucinex) lansoprazole 30 mg capsule,delayed 30 mg PO BID 04/09/24 04/09/24 release metolazone 5 mg tablet 5 mg PO 3XW 04/09/24 04/09/24 fztxplgniltk-pcsriiqm-zqsrmc tablet 1 tab PO QPM 04/09/24 04/09/24 potassium chloride 10 mEq 10 meq PO BID 04/09/24 04/09/24 tablet,extended release trazodone 50 mg tablet 50 mg PO BEDTIME 04/09/24 04/09/24 Previous Rx's Medication Instructions Recorded verio reflect glucometer #1 ea 01/28/20 insulin syringe-needle U-100 0.5 #100 ea 03/30/20 mL 31 gauge x 5/16 (BD Insulin Syringe Ultra-Fine) metformin 1,000 mg tablet 1,000 mg PO BID #180 tabs 09/03/20 fentanyl 25 mcg/hr transdermal 1 patch transdermal Q72H PRN pain 02/05/22 patch (scale score 1-3) #5 ea aluminum-mag hydroxide-simethicone 30 ml PO Q6HR PRN Dyspepsia #355 mL 08/28/22 200 mg-200 mg-20 mg/5 mL oral susp (Mag-Al Plus) calcium carbonate 1,000 mg (5 x 200 mg calcium (500 08/28/22 mg)) PO Q4HR PRN Dyspepsia #60 tabs docusate sodium 100 mg capsule 100 mg PO BID #60 caps 08/28/22 sennosides 8.6 mg tablet (senna) 17.2 mg (2 x 8.6 mg) PO BEDTIME 08/28/22 #60 tabs bumetanide 0.5 mg tablet 0.5 mg PO DAILY 30 days #30 tabs 03/18/24 Allergies Allergy/AdvReac Type Severity Reaction Status Date / Time piperacillin [From Zosyn] Allergy Severe Rash Verified 03/14/24 16:45 tazobactam [From Zosyn] Allergy Severe Rash Verified 03/14/24 16:45 hydroxychloroquine Allergy Unknown Verified 03/14/24 16:45 [HYDROXYCHLOROQUINE] Sulfa (Sulfonamide Allergy Verified 03/14/24 16:45 Antibiotics) cefepime AdvReac Intermediate pruritis Verified 03/14/24 16:45 promethazine [From Phenergan] AdvReac Agitated Verified 03/14/24 16:45 Review of Systems Review of Systems Narrative: Pertinent positive and negative findings as per HPI Patient History Medical History Abnormal chest xray (~1979) Anemia Ankle pain Anticoagulated Asthma (~1959) Bronchiectasis (~2006) Cervical spine disease Chronic back pain Colon polyps (~2015) Degenerative joint disease of spine (~2001) Diabetes mellitus, type II (~2009) Eczema Fibromyalgia Foot pain Hoarseness Hyperlipidemia Hypertension Hypothyroidism Migraines (~1964) 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 Osteopenia Pneumonia Pneumonia Recurrent sinusitis (~1970) Restless leg syndrome Shoulder pain (~03/2018) Sleep apnea Wears glasses Surgical History Anesthesia History of carpal tunnel release History of cataract removal with insertion of prosthetic lens (~2014) History of section History of laminectomy (~2002) History of spinal fusion (~2012) History of thumb surgery Family History Father Stroke Mother Hypertension Brother Cerebral aneurysm Prostate cancer Diabetes mellitus Hypertension Stroke Brother Arthritis Hyperlipidemia Hypertension Sister History of kidney cancer Hypertension Grandfather Cancer Grandmother Cancer Other Family history non-contributory Social History marital status: household members: spouse lives independently: Yes occupational status: previously employed Smoking Status: Never smoker alcohol intake: never substance use type: does not use Smoking Status: Never smoker alcohol intake frequency: holidays/special occasions only Exam Initial Vital Signs Initial Vital Signs: Vital Signs Pulse Rate 58 L 04/09/24 12:52 Pulse Oximetry 89 L 04/09/24 12:52 General: Chronically ill-appearing, weak, minimal meaningful interaction HEENT: Dry mucous membranes, normal sclera with reactive pupils, Respiratory: Lungs are clear to auscultation, no wheezing no rales no rhonchi. Cardiac: Regular rate and rhythm no murmurs no bruits Abdomen: Soft, tender to palpation with mild guarding particularly in the left side of her abdomen and down into the left lower quadrant Skin: Warm and dry, no rashes Neurologic: Globally weak, she is able to move all extremities Extremities: No significant lower extremity edema Psych: Cooperative, weak, confused Course Orders Ordered: ED Orders 04/09/24 13:02 Complete Blood Count AUTO DIFF Stat Comprehensive Metabolic Panel Stat Lipase Stat Prothrombin Time INR Stat 04/09/24 13:12 EKG-12 Lead Stat 04/09/24 13:58 CT abdomen pelvis wo con Stat 04/09/24 16:25 Urinalysis and Microscopic Stat Urine Culture Stat Ondansetron HCl (Ondansetron 4 Mg/2 Ml Inj) 4 mg IV NOW PRN PRN Reason: Nausea And Vomiting Ondansetron HCl (Ondansetron 4 Mg Odt) 4 mg PO NOW PRN PRN Reason: Nausea And Vomiting Discontinued Medications Sodium Chloride (Normal Saline 0.9%) 1,000 mls @ 1,000 mls/hr IV BOLUS ONE Stop: 04/09/24 17:14 Last Admin: 04/09/24 16:19 Dose: 1,000 mls/hr Documented By: AB Vital Signs Vital signs: Vital Signs - 8 hr 04/09/24 12:52 04/09/24 12:53 04/09/24 12:53 Pulse Rate 58 L 58 L Respiratory Rate Blood Pressure 128/66 Pulse Oximetry 89 L 92 Oxygen Delivery Method Oxygen Flow Rate 04/09/24 12:56 04/09/24 13:00 04/09/24 13:00 Pulse Rate 60 56 L Respiratory Rate 20 28 H Blood Pressure 128/66 111/55 L Pulse Oximetry 93 95 Oxygen Delivery Method Nasal Cannula Oxygen Flow Rate 2 04/09/24 13:30 04/09/24 13:30 04/09/24 14:00 Pulse Rate 51 L 51 L Respiratory Rate 25 H 21 Blood Pressure 122/59 L Pulse Oximetry 96 99 Oxygen Delivery Method Oxygen Flow Rate 04/09/24 14:01 04/09/24 14:01 04/09/24 14:30 Pulse Rate 51 L 51 L Respiratory Rate 30 H 18 Blood Pressure 117/53 L Pulse Oximetry 99 98 Oxygen Delivery Method Nasal Cannula Oxygen Flow Rate 2 Medical Decision Making Lab Data 04/09/24 13:02 04/09/24 13:02 Labs: Lab Results 04/09/24 04/09/24 Range/Units 13:02 16:25 WBC 8.4 (4.5-11.0) X10^3/uL RBC 4.71 (4.0-5.2) X10^6/uL Hgb 14.4 (12.0-16.0) g/dL Hct 42.7 (36-46) % MCV 90.8 (80-100) fL MCH 30.6 (26-34) PG MCHC 33.7 (30-36) % RDW 16.2 H (11.6-14.8) % Plt Count 409 H (150-400) X10^3/uL Neut % (Auto) 69.4 (50-75) % Lymph % (Auto) 17.1 L (25-40) % Greenlee % (Auto) 12.7 (3-14) % Eos % (Auto) 0.0 L (2-4) % Baso % (Auto) 0.8 (0-2) % Neut # (Auto) 5800 (2113-8612) /uL Lymph # (Auto) 1400 (2589-0881) /uL Greenlee # (Auto) 1100 H (0-900) /uL Eos # (Auto) 0 (0-450) /uL Baso # (Auto) 100 (0-100) /uL PT 67.8 H (9.4-12.5) SECONDS INR 6.3 H* (0.9-1.3) Sodium 133 L (137-145) mmol/L Potassium 3.4 (3.4-5.1) mmol/L Chloride 80 L (98-107) mmol/L Carbon Dioxide 32 (22-32) mmol/L BUN 98 H (7-17) mg/dL Creatinine 2.14 H (0.52-1.04) mg/dL Estimated GFR 23 L (>60) mL/min BUN/Creatinine Ratio 45.8 H (6-22) Glucose 219 H (80-110) mg/dL Calcium 10.0 (8.4-10.2) mg/dL Total Bilirubin 0.5 (0.2-1.3) mg/dL AST 42 H (14-36) IU/L ALT 37 H (<35) IU/L Alkaline Phosphatase 91 (38-126) U/L Total Protein 7.9 (6.3-8.2) g/dL Albumin 4.2 (3.5-5.0) g/dL Globulin 3.7 (1.7-4.1) g/dL Albumin/Globulin Ratio 1.1 (1.0-2.8) Lipase 129 (23-300) U/L Urine Color Yellow Urine Appearance Clear Urine pH 7.5 (4.5-8.0) Ur Specific Victor 1.010 (1.000-1.035) Urine Protein Negative (Negative) Urine Glucose (UA) Negative (Negative) g/dL Urine Ketones Negative (NEGATIVE) Urine Occult Blood Negative (Negative) Urine Nitrate Negative (Negative) Urine Bilirubin Negative (NEGATIVE) Urine Urobilinogen 0.2 (0.2) E.U./dL Ur Leukocyte Esterase 3+ H (NEGATIVE) Urine RBC 0-1/hpf (0-5/HPF) Urine WBC 5-10/hpf H (0-5/HPF) Ur Squamous Epith Cells 0-1 /hpf (0-5/HPF) Urine Bacteria Moderate (10-30) H (None) Ur Culture Indicated? Specimen cultured Vol Urine Centrifuged 10ml (spun) Imaging Data CT scan - abdomen/pelvis: Radiologist's Impression: PROCEDURE: CT ABDOMEN PELVIS WO CON INDICATIONS: weanenss, abdominal pain on exam TECHNIQUE: Axial sections were acquired from the lung bases to the pubic symphysis. Coronal and sagittal reformats were performed. For radiation dose reduction, the following was used: automated exposure control, adjustment of mA and/or kV according to patient size. COMPARISON: None. FINDINGS: Image quality: Diagnostic. Lower Chest: Bibasilar dependent atelectasis is seen. Heart size is enlarged, no pericardial effusion. Prosthetic aortic valve is seen. URINARY: Right Kidney: No stones or hydronephrosis. Right Ureter: No hydroureter. Left Kidney: No stones or hydronephrosis. Left Ureter: No hydroureter. Bladder: Normal wall thickness. No stones. ABDOMEN: Liver: No contour-deforming solid mass. Gallbladder: Gallbladder is distended with small calcified stone in its dependent portion. No gallbladder wall thickening. Biliary ducts: No biliary dilation. Pancreas: No ductal dilation. Spleen: Size is within normal limits. Adrenal Glands: No adrenal nodules. Stomach and Bowel: Norm there is no bowel obstruction. No gastric or small bowel wall thickening. No evidence of acute appendicitis or diverticulitis. Moderate fecal stasis throughout the colon is seen. No abscess collection. Peritoneum: No abnormal intraperitoneal fluid. No free air. Ventral Wall: No hernia. Multiple area of subcutaneous emphysema it are seen, which may represent prior injections suggest clinical correlation. Abdominal Nodes: No enlarged retroperitoneal or mesenteric lymph nodes. Vessels: IVC filter is seen in place. Moderate atherosclerotic calcifications are noted in abdominal aorta. Aorta and inferior vena cava are normal in size. PELVIS: Pelvic Organs: Unremarkable. Pelvic Nodes: Unremarkable. Miscellaneous: No inguinal hernias are seen. Bones: No aggressive appearing bony lesions. Postfusion changes are seen in lower lumbar spine at L3 through L5 levels. No acute vertebral body compression fracture. Degenerative disc disease throughout lower thoracic and lumbar spine is seen. IMPRESSION: 1. Distended gallbladder with cholelithiasis. No gallbladder wall thickening. No biliary ductal dilatation. Gallbladder contractility disorder cannot be excluded. 2. No renal stones or hydronephrosis. Normal appearing urinary bladder. 3. No bowel obstruction or abnormal bowel wall thickening. Skix-hp-jjgyhcde constipation. No evidence of acute appendicitis or diverticulitis. No free fluid or free air. Dictated by: Josr Silva M.D. on 04/09/2024 at 14:23 MDM Narrative Medical decision making narrative: CC: Increasing weakness Complicating co-morbidities: Discharge from [facility] after admission 03/29-04/04 for COPD exacerbation, bronchiectasis with acute exacerbation and acute on chronic heart failure exacerbation. It actually looks like this was 2 separate admissions with 1 day home in between admissions Data collected from: , patient Social determinants of health that may influence the patients condition: Patient is DNR Medical records reviewed: Notes from [facility] for her to hospital stays within the last 3 weeks reviewed Differential considered: Abdominal infection, pyelonephritis, worsening bronchiectasis, worsening congestive heart failure, progression of chronic baseline disease is Exam documented above, pertinent findings include: Weak, minimally interactive she is moving all extremities, she has not in any respiratory extremis, minor bibasilar crackles, abdomen is tender in the left side to palpation, no obvious skin changes to suggest cellulitis Lab Test results independently reviewed as above. Pertinent findings: CBC is reassuring with increased H&H Metabolic panel shows slight increase in creatinine most recently he had been 1.04 is now 2.14. Has been similarly elevated in January. Independently reviewed EKG: Sinus rhythm at a rate of 53 with a right bundle branch block and no acute ischemic changes Imaging studies independently reviewed: CT scan of the abdomen done for tenderness on exam shows evidence of gallstones without acute cholelithiasis, no diverticulitis no appendicitis no evidence of bowel obstruction. No renal stones or hydronephrosis, no suggestion of the bladder infection Treatments: L of fluid Discussion: 74-year-old woman with complex medical history getting to point where she is becoming essentially hospital dependent. She will have a couple of days at home and then continue to fail. Most recently she has been home 4 days when she went home she was able to transfer with significant assist she is unable to do that now. Decreased eating minimal oral intake otherwise. She has an acute kidney injury which certainly can be contributing to her overall weakness however a I am more concerned with gradual decline in a medically complex patient. Fluid replacement is complex given the acute kidney injury appreciated but need for diuresis for her significant congestive heart failure. Had a long discussion with her regarding options and suggestions. He has been considering dementia care facilities as well as longterm facilities. I believe with her lack of mobility that is longterm is probably going to be more appropriate. She certainly has had multiple days of inpatient care within the last 30 days and may well qualify for longterm care. They do have home health scheduled to come out in the next 4 or 5 days but at this point she is past the point of a one-person assist in being able to get out of bed, transfer to the toilet or to the wheelchair. Workup today does not suggest new infection, new bleeding or new complications to her already complex care. We will discuss her care with the admitting hospitalist Discharge Plan Departure Patient Disposition: Admitted As Inpatient Clinical Impression: Acute kidney injury, Weakness, Polypharmacy Congestive heart failure Qualifiers: Heart failure type: unspecified Heart failure chronicity: chronic Qualified Code(s): I50.9 - Heart failure, unspecified Bronchiectasis Qualifiers: Bronchiectasis type: uncomplicated Qualified Code(s): J47.9 - Bronchiectasis, uncomplicated Admit Date/Time: 04/09/24 16:35 Admit Provider: Scott Jeter V
--- NOTE | 2024-04-09 13:53 | EKG_ITS ---
[address] [address] Test Date: 2024-04-09 Pat Name: Radha Zavaleta Department: [facility] Room: Gender: Female Document Processor: NAYAN : 1950 Requested By: Order Number: [id number] Reading MD: Jorge Cervantes Measurements Intervals [place] Rate: 53 P: 21 NV: 160 QRS: 185 QRSD: 142 T: 30 QT: 612 QTc: 574 Interpretive Statements Sinus bradycardia Right bundle branch block Electronically Signed On 04-10-2024 8:20:27 PST by Jorge Cervantes
--- NOTE | 2024-04-09 13:58 | DI.CT.S_ITS ---
PROCEDURE: CT ABDOMEN PELVIS WO CON INDICATIONS: weanenss, abdominal pain on exam TECHNIQUE: Axial sections were acquired from the lung bases to the pubic symphysis. Coronal and sagittal reformats were performed. For radiation dose reduction, the following was used: automated exposure control, adjustment of mA and/or kV according to patient size. COMPARISON: None. FINDINGS: Image quality: Diagnostic. Lower Chest: Bibasilar dependent atelectasis is seen. Heart size is enlarged, no pericardial effusion. Prosthetic aortic valve is seen. URINARY: Right Kidney: No stones or hydronephrosis. Right Ureter: No hydroureter. Left Kidney: No stones or hydronephrosis. Left Ureter: No hydroureter. Bladder: Normal wall thickness. No stones. ABDOMEN: Liver: No contour-deforming solid mass. Gallbladder: Gallbladder is distended with small calcified stone in its dependent portion. No gallbladder wall thickening. Biliary ducts: No biliary dilation. Pancreas: No ductal dilation. Spleen: Size is within normal limits. Adrenal Glands: No adrenal nodules. Stomach and Bowel: Norm there is no bowel obstruction. No gastric or small bowel wall thickening. No evidence of acute appendicitis or diverticulitis. Moderate fecal stasis throughout the colon is seen. No abscess collection. Peritoneum: No abnormal intraperitoneal fluid. No free air. Ventral Wall: No hernia. Multiple area of subcutaneous emphysema it are seen, which may represent prior injections suggest clinical correlation. Abdominal Nodes: No enlarged retroperitoneal or mesenteric lymph nodes. Vessels: IVC filter is seen in place. Moderate atherosclerotic calcifications are noted in abdominal aorta. Aorta and inferior vena cava are normal in size. PELVIS: Pelvic Organs: Unremarkable. Pelvic Nodes: Unremarkable. Miscellaneous: No inguinal hernias are seen. Bones: No aggressive appearing bony lesions. Postfusion changes are seen in lower lumbar spine at L3 through L5 levels. No acute vertebral body compression fracture. Degenerative disc disease throughout lower thoracic and lumbar spine is seen. IMPRESSION: 1. Distended gallbladder with cholelithiasis. No gallbladder wall thickening. No biliary ductal dilatation. Gallbladder contractility disorder cannot be excluded. 2. No renal stones or hydronephrosis. Normal appearing urinary bladder. 3. No bowel obstruction or abnormal bowel wall thickening. [id number] constipation. No evidence of acute appendicitis or diverticulitis. No free fluid or free air. Dictated by: Josr Silva M.D. on 04/09/2024 at 14:23 Approved by: Josr Silva M.D. on 04/09/2024 at 14:29
[2024-04-09 14:09] LABS: HEMOLYSIS 28 (0-50); Total Protein 7.9 g/dL (6.3-8.2)
[2024-04-09 14:13] LABS: Prothrombin Time 67.8 SECONDS (9.4-12.5)
[2024-04-09 14:18] LABS: INR 6.3 (0.9-1.3)
[2024-04-09 14:19] LABS: Alanine Aminotransferase 37 IU/L (<35); Albumin 4.2 g/dL (3.5-5.0); Albumin Globulin Ratio 1.1 (1.0-2.8); Alkaline Phosphatase 91 U/L (38-126); Aspartate Aminotransferase 42 IU/L (14-36); Bilirubin Total 0.5 mg/dL (0.2-1.3); Chloride 80 mmol/L (98-107); Estimated Glomerular Filt Rate 23 mL/min (>60); Globulin 3.7 g/dL (1.7-4.1); Glucose 219 mg/dL (80-110); Lipase 129 U/L (23-300); Potassium 3.4 mmol/L (3.4-5.1); Sodium 133 mmol/L (137-145)
[2024-04-09 14:31] LABS: BUN Creatinine Ratio 45.8 (6-22); Blood Urea Nitrogen 98 mg/dL (7-17); Carbon Dioxide 32 mmol/L (22-32)
[2024-04-09] MEDS: SODIUM CHLORIDE 0.9% 1,000 ML 1000 ML IV (16:19)
[2024-04-09 16:40] LABS: Appearance Urine UA CLEAR; Bilirubin Urine UA NEGATIVE (NEGATIVE); Color Urine UA YELLOW; Glucose Urine UA NEGATIVE (Negative); Ketones Urine UA NEGATIVE (NEGATIVE); Leukocyte Esterase Urine UA 3+ (NEGATIVE); Nitrite Urine UA NEGATIVE (Negative); Occult Blood Urine UA NEGATIVE (Negative); Protein Urine UA NEGATIVE (Negative); Urobilinogen Urine UA 0.2 E.U./dL (0.2); pH Urine UA 7.5 (4.5-8.0)
[2024-04-09 17:09] LABS: Bacteria Urine Moderate (10-30); Culture Indicated Urine Specimen Cultured; RBC Urine 0-1/HPF (0-5/HPF); Squamous Epithelial Cell Urine 0-1 /HPF (0-5/HPF); Urine Volume 10mL (spun); WBC Urine 5-10/HPF (0-5/HPF)
--- NOTE | 2024-04-09 17:11 | P.HP_ITS ---
History of Present Illness History of Present Illness Date Patient Seen: 04/09/24 Time Patient Seen: 17:30 Chief complaint: Weakness,lethargic Narrative: 74-year-old woman under the primary care of Dr. Karin Porter with multiple medical issues including chronic bronchiectasis with Pseudomonas colonization, combined variable immunodeficiency, obstructive cardiomyopathy was recently hospitalized at [facility] from March 29 through with volume overload congestive heart failure, ESBL E coli urinary infection and Pseudomonas lung infection, treated with IV furosemide and Mirapex item, and sent home off antibiotics on torsemide 40 mg twice daily and metolazone Sunday and Sunday. She presents progressively weak despite her stating that she drinks adequate fluids but has had little solid food intake, and has been urinating. In the emergency department her serum creatinine was 2.14 mg/dL, up from 1.27 on April 04. Her notes that she has had progressive cognitive decline in the past year, frequently forgetting that a family member has visited the day before, and asking the same questions several times daily. [facility] Medical History Abnormal chest xray (~1979) Anemia Ankle pain Anticoagulated Asthma (~1959) Bronchiectasis (~2006) Cervical spine disease Chronic back pain Colon polyps (~2015) Degenerative joint disease of spine (~2001) Diabetes mellitus, type II (~2009) Eczema Fibromyalgia Foot pain Hoarseness Hyperlipidemia Hypertension Hypothyroidism Migraines (~1964) 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 Osteopenia Pneumonia Pneumonia Recurrent sinusitis (~1970) Restless leg syndrome Shoulder pain (~03/2018) Sleep apnea Wears glasses Surgical History Anesthesia History of carpal tunnel release History of cataract removal with insertion of prosthetic lens (~2014) History of section History of laminectomy (~2002) History of spinal fusion (~2012) History of thumb surgery Family History Father Stroke Mother Hypertension Brother Cerebral aneurysm Prostate cancer Diabetes mellitus Hypertension Stroke Brother Arthritis Hyperlipidemia Hypertension Sister History of kidney cancer Hypertension Grandfather Cancer Grandmother Cancer Other Family history non-contributory Social History marital status: household members: spouse lives independently: Yes occupational status: previously employed Smoking Status: Never smoker alcohol intake: never substance use type: does not use Meds Home Medications and Allergies Home Medications Medication Instructions Recorded Confirmed Type albuterol sulfate 90 mcg/actuation 2 puff inhalation Q4-6H PRN 05/29/19 04/09/24 History aerosol inhaler Shortness Of Breath cholecalciferol (vitamin D3) 50 2,000 unit PO DAILY 05/29/19 04/09/24 History mcg (2,000 unit) tablet ferrous sulfate 325 mg (65 mg 325 mg PO QPM 05/29/19 04/09/24 History iron) tablet tizanidine 4 mg capsule 4 mg PO Q6H PRN Muscle Spasm 05/29/19 04/09/24 History sodium chloride 3 % for 5 ml inhalation BID 06/05/19 04/09/24 History nebulization cetirizine 10 mg capsule (Zyrtec) 10 mg PO DAILY allergies 01/20/20 04/09/24 History montelukast 10 mg tablet 10 mg PO BEDTIME 01/20/20 04/09/24 History (Singulair) verio reflect glucometer #1 ea 01/28/20 04/09/24 Rx insulin syringe-needle U-100 0.5 #100 ea 03/30/20 04/09/24 Rx mL 31 gauge x 5/16 (BD Insulin Syringe Ultra-Fine) metformin 1,000 mg tablet 1,000 mg PO BID #180 tabs 09/03/20 04/09/24 Rx atorvastatin 40 mg tablet 40 mg PO QPM 04/20/21 04/09/24 History epinephrine 0.3 mg/0.3 mL 0.3 mg IM Q5-15M PRN Allergic 04/20/21 04/09/24 History injection, auto-injector (EpiPen) Reaction insulin glargine 100 unit/mL 20 unit SUBCUT QAM 04/20/21 04/09/24 History subcutaneous solution insulin lispro 100 unit/mL 4 - 8 unit SUBCUT TID 04/20/21 04/09/24 History subcutaneous pen (Humalog KwikPen (U-100) Insulin) levothyroxine 75 mcg tablet 75 mcg PO QAM 04/20/21 04/09/24 History tiotropium bromide 18 mcg capsule 1 cap inhalation DAILY 04/20/21 04/09/24 History with inhalation device (Spiriva with HandiHaler) duloxetine 30 mg capsule,delayed 30 mg PO DAILY 06/28/21 04/09/24 History release pramipexole 0.5 mg tablet 0.5 mg PO BEDTIME 06/28/21 04/09/24 History fentanyl 25 mcg/hr transdermal 1 patch transdermal Q72H PRN pain 02/05/22 04/09/24 Rx patch (scale score 1-3) #5 ea omega-3 fatty acids 1,000 mg PO DAILY 04/24/22 04/09/24 History benralizumab 30 mg/mL subcutaneous 30 mg SUBCUT Q8W 06/03/22 04/09/24 History syringe (Fasenra) yrjlnikcsc-dsobvcrlrucye-suwqanrc 1 tab PO Q6H PRN Migraine Headache 06/03/22 04/09/24 History 50 mg-325 mg-40 mg tablet oxycodone 5 mg capsule 15 mg PO Q6H PRN Pain (Scale Score 06/03/22 03/14/24 History 7-10) prednisone 5 mg tablet 5 mg PO DAILY 06/03/22 04/09/24 History Hizintra 15 g SUBCUT QWEEK 08/25/22 04/09/24 History fluticasone 500 mcg-salmeterol 50 1 inh inhalation Q12H 08/25/22 04/09/24 History mcg/dose blistr powdr for inhalation (Advair Diskus) fentanyl 12 mcg/hr transdermal 12 mcg transdermal SEEINSTR 10/13/22 04/09/24 History patch warfarin 1 mg tablet 1 mg PO DAILY 10/13/22 04/09/24 History magnesium oxide 400 mg PO DAILY 04/08/23 04/09/24 History metoprolol succinate 25 mg 12.5 mg PO BID 04/08/23 04/09/24 History tablet,extended release 24 hr torsemide 20 mg tablet 40 mg PO BID 04/08/23 04/09/24 History acetaminophen 325 mg tablet 650 mg PO Q8HR PRN Pain, Mild 06/19/23 04/09/24 History amiodarone 200 mg tablet 200 mg PO DAILY 06/19/23 04/09/24 History clotrimazole 10 mg aneesh 10 mg PO 5XD PRN thrush 06/19/23 04/09/24 History diclofenac sodium 1 % topical gel 4 g topical QID PRN JOINT PAIN 06/19/23 04/09/24 History ipratropium 0.5 mg-albuterol 3 mg 3 ml inhalation BID 06/19/23 04/09/24 History (2.5 mg base)/3 mL nebulization soln miconazole nitrate 2 % topical 1 applic topical QID PRN Rash 06/19/23 04/09/24 History powder naloxone 4 mg/actuation nasal spray 1 spray intranasal NOW PRN OVERDOSE 06/19/23 04/09/24 History oxymetazoline 0.05 % nasal drops 2 drp intranasal BID 06/19/23 04/09/24 History acidophilus 100 million 1 cap PO QPM 04/09/24 04/09/24 History cell-pectin, citrus 10 mg capsule ascorbic acid (vitamin C) 1,000 mg 1,000 mg PO QPM 04/09/24 04/09/24 History tablet fluticasone propionate 50 1 spray intranasal Q12H 04/09/24 04/09/24 History mcg/actuation nasal spray,suspension guaifenesin 1,200 mg tablet, 1,200 mg PO BID 04/09/24 04/09/24 History extended release 12 hr (Mucinex) lansoprazole 30 mg capsule,delayed 30 mg PO BID 04/09/24 04/09/24 History release metolazone 5 mg tablet 5 mg PO 3XW 04/09/24 04/09/24 History wlcwywnkpddc-wzvhznwu-grzona tablet 1 tab PO QPM 04/09/24 04/09/24 History ondansetron HCl 4 mg tablet 4 mg PO Q8H PRN Nausea 04/09/24 04/09/24 History oxycodone 15 mg tablet 15 mg PO Q4-6H PRN Pain, Moderate 04/09/24 04/09/24 History potassium chloride 10 mEq 10 meq PO BID 04/09/24 04/09/24 History tablet,extended release trazodone 50 mg tablet 50 mg PO BEDTIME 04/09/24 04/09/24 History Allergies Allergy/AdvReac Type Severity Reaction Status Date / Time piperacillin [From Zosyn] Allergy Severe Rash Verified 03/14/24 16:45 tazobactam [From Zosyn] Allergy Severe Rash Verified 03/14/24 16:45 hydroxychloroquine Allergy Unknown Verified 03/14/24 16:45 [HYDROXYCHLOROQUINE] Sulfa (Sulfonamide Allergy Verified 03/14/24 16:45 Antibiotics) cefepime AdvReac Intermediate pruritis Verified 03/14/24 16:45 promethazine [From Phenergan] AdvReac Agitated Verified 03/14/24 16:45 Review of Systems Review of Systems ROS: Yes All systems reviewed with the patient and are negative except as otherwise documented Exam Vital Signs (past 8 hours): - 04/09/24 12:52 04/09/24 12:53 04/09/24 12:53 Pulse Rate 58 L 58 L Respiratory Rate Blood Pressure 128/66 Pulse Oximetry 89 L 92 Oxygen Delivery Method Oxygen Flow Rate 04/09/24 12:56 04/09/24 13:00 04/09/24 13:00 Pulse Rate 60 56 L Respiratory Rate 20 28 H Blood Pressure 128/66 111/55 L Pulse Oximetry 93 95 Oxygen Delivery Method Nasal Cannula Oxygen Flow Rate 2 04/09/24 13:30 04/09/24 13:30 04/09/24 14:00 Pulse Rate 51 L 51 L Respiratory Rate 25 H 21 Blood Pressure 122/59 L Pulse Oximetry 96 99 Oxygen Delivery Method Oxygen Flow Rate 04/09/24 14:01 04/09/24 14:01 04/09/24 14:30 Pulse Rate 51 L 51 L Respiratory Rate 30 H 18 Blood Pressure 117/53 L Pulse Oximetry 99 98 Oxygen Delivery Method Nasal Cannula Oxygen Flow Rate 2 Oxygen Delivery Method Nasal Cannula Oxygen Flow Rate 2 Narrative Exam Narrative: GENERAL: This is a frail-appearing elderly female, in no apparent distress, appears mildly somnolent, though opens eyes and appears alert. However in attempting a [facility] exam she frequently closes her eyes and does not answer questions. EYES: Pupils equal round and reactive. Extraocular motions intact. No scleral icterus. No injection or drainage. ENT: Mucous membranes pink and dry. NECK: Trachea midline. No JVD, bruits or lymphadenopathy. Supple, nontender, no meningeal signs. CARDIOVASCULAR: Regular rate and rhythm without murmurs, gallops, or rubs. RESPIRATORY: Diminished breath sounds throughout, mid to end-expiratory wheeze, faint inspiratory high-pitched breath sounds. scattered rhonchi. GASTROINTESTINAL: Abdomen soft, non-tender, nondistended. EXTREMITIES: Trace edema. NEUROLOGIC: Alert, oriented to person only, speech fluent, full upper and lower motor strength, no focal deficits evident. DERMATOLOGIC: No rashes or skin lesions. Objective ECG Impression: Sinus bradycardia at 53bpm Right bundle branch block Imaging CT abdomen-pelvis without contrast: Radiologist's impression: 1. Distended gallbladder with cholelithiasis. No gallbladder wall thickening. No biliary ductal dilatation. Gallbladder contractility disorder cannot be excluded. 2. No renal stones or hydronephrosis. Normal appearing urinary bladder. 3. No bowel obstruction or abnormal bowel wall thickening. Eftu-lh-lyhvzhrr constipation. No evidence of acute appendicitis or diverticulitis. No free fluid or free air. Echocardiogram 03/15/2024:: Radiologist's impression: The LVOT velocity is 1.74 m/s. The mean pressure gradient is 8.5 mmHg. The max pressure gradient is 12.1 mmHg. The stroke volume index is 43.86 ml/m2. The ejection fraction is estimated to be 75-80%. The interventricular septum is flattened, consistent with a right ventricular pressure/volume condition but not as severe in comparison to prior echo study on 08/26/2022. The peak aortic velocity is 2.65 m/sec. Visually and based on peak velocity there appears to be milld aortic stenosis. There appears to be TMVR (transcatheter mitral valve replacment valve) that is new since prior echo study on 08/26/2022. It appears part of the TMVR apparatus is within the LVOT but based on LVOT velocity there appears to be no signifiant obstruction. Head CT 06/19/2023:: Radiologist's impression: No acute intracranial pathology within limitations related to motion artifact. Labs 04/09/24 13:02 04/09/24 13:02 Labs: Laboratory Results - last 24 hr 04/09/24 04/09/24 13:02 16:25 WBC 8.4 RBC 4.71 Hgb 14.4 Hct 42.7 MCV 90.8 MCH 30.6 MCHC 33.7 RDW 16.2 H Plt Count 409 H Neut % (Auto) 69.4 Lymph % (Auto) 17.1 L [place] % (Auto) 12.7 Eos % (Auto) 0.0 L Baso % (Auto) 0.8 Neut # (Auto) 5800 Lymph # (Auto) 1400 [place] # (Auto) 1100 H Eos # (Auto) 0 Baso # (Auto) 100 PT 67.8 H INR 6.3 H* Sodium 133 L Potassium 3.4 Chloride 80 L Carbon Dioxide 32 BUN 98 H Creatinine 2.14 H Estimated GFR 23 L BUN/Creatinine Ratio 45.8 H Glucose 219 H Calcium 10.0 Total Bilirubin 0.5 AST 42 H ALT 37 H Alkaline Phosphatase 91 Total Protein 7.9 Albumin 4.2 Globulin 3.7 Albumin/Globulin Ratio 1.1 Lipase 129 Urine Color Yellow Urine Appearance Clear Urine pH 7.5 Ur Specific [place] 1.010 Urine Protein Negative Urine Glucose (UA) Negative Urine Ketones Negative Urine Occult Blood Negative Urine Nitrate Negative Urine Bilirubin Negative Urine Urobilinogen 0.2 Ur Leukocyte Esterase 3+ H Urine RBC 0-1/hpf Urine WBC 5-10/hpf H Ur Squamous Epith Cells 0-1 /hpf Urine Bacteria Moderate (10-30) H Ur Culture Indicated? Specimen cultured Vol Urine Centrifuged 10ml (spun) Assessment & Plan Assessment & Plan narrative: 1. Acute kidney injury superimposed on chronic kidney disease, stage III. Likely due to volume depletion from over-diuresis, in a patient with tenuous volume status and markedly decreased functional status with repeated hospitalizations and failure to thrive. No evidence of acute intra-abdominal process or current infection. Lengthy discussion regarding failure to thrive and progressive cognitive impairment. The patient has been considering palliative care approach. 2. Chronic diastolic congestive heart failure. 3. COPD/bronchiectasis. 4. Chronic hypoxic respiratory failure. 5. Chronic atrial fibrillation on amiodarone. 6. Chronic anticoagulation. 7. Diabetes mellitus, type 2 requiring insulin 8. Common variable immunodeficiency. 9. Probable dementia. Normal head CT noted in June. Check B12 and TSH. Further cognitive assessment. 10. Code status: Do not resuscitate. Plan: -IV normal saline hydration -monitor renal function -hold warfarin -monitor pro times -B12 and TSH -cognitive assessment -consider palliative care/hospice consultation -do not resuscitate Quality MIPS - Admit I confirm the patient?s Advance Care Plan is present, Code status is documented, Surrogate decision maker is in patient?s record [If Yes, STOP here]: Yes MIPS - Meds 'Current medications' to include all prescriptions, zfww-iws-dnuvbgo products, herbals, cannabis/cannabidiol products, and vitamin/mineral/dietary (nutritional) supplements. I have utilized all available resources to obtain, update, or review the patient?s current medications. [If Yes, STOP here]: Yes PROFEE Charge Codes Initial inpatient/observation care: 63834
[2024-04-09] MEDS: INSULIN LISPRO 100 UNIT/ML 3ML VIAL SUBCUT (21:51)
[2024-04-09] MEDS: fentaNYL 25 MCG/PATCH TOP (21:53)
[2024-04-09] MEDS: PRAMIPEXOLE 0.25 MG TABLET 0.5 MG PO (21:53)
[2024-04-09] MEDS: TRAZODONE 50 MG TABLET PO (21:54)
[2024-04-09] MEDS: PANTOPRAZOLE DR 40 MG TABLET PO (21:54)
[2024-04-09] MEDS: guaiFENesin ER 600 MG TAB 1200 MG PO (21:54)
[2024-04-09] MEDS: fentaNYL 12 MCG/PATCH TOP (21:54)
[2024-04-10] VITALS (9 sets, daily range): BP systolic 92–144; BP diastolic 46–72; PULSE 55–85; RESP 16–20; TEMP 35.6–36.6; O2SAT 93–98
[2024-04-10] MEDS: LEVOTHYROXINE 75 MCG TABLET PO (05:45)
[2024-04-10 06:26] LABS: Add Manual Diff / Slide Review NO; Basophils Absolute Auto 100 /uL (0-100); Basophils Percent Auto 0.6 % (0-2); Eosinophils Absolute Auto 0 /uL (0-450); Hematocrit 39.3 % (36-46); Hemoglobin 13.2 g/dL (12.0-16.0); Lymphocytes Absolute Auto 2000 /uL (1100-4500); Lymphocytes Percent Auto 23.1 % (25-40); Mean Corpuscular HGB Conc 33.5 % (30-36); Mean Corpuscular Hemoglobin 30.4 PG (26-34); Mean Corpuscular Volume 90.7 fL (80-100); Monocytes Absolute Auto 1200 /uL (0-900); Monocytes Percent Auto 13.9 % (3-14); Neutrophils Absolute Auto 5400 /uL (1500-7000); Neutrophils Percent Auto 62.4 % (50-75); Platelet Count 402 X10^3/uL (150-400); Red Blood Cell Count 4.33 X10^6/uL (4.0-5.2); Red Cell Distribution Width 15.9 % (11.6-14.8); White Blood Cell Count 8.6 X10^3/uL (4.5-11.0)
[2024-04-10 06:28] LABS: Prothrombin Time 72.4 SECONDS (9.4-12.5)
[2024-04-10 06:31] LABS: INR 6.7 (0.9-1.3)
[2024-04-10 06:35] LABS: Alanine Aminotransferase 31 IU/L (<35); Albumin 3.8 g/dL (3.5-5.0); Albumin Globulin Ratio 1.1 (1.0-2.8); Alkaline Phosphatase 97 U/L (38-126); Aspartate Aminotransferase 39 IU/L (14-36); Bilirubin Total 0.4 mg/dL (0.2-1.3); Blood Urea Nitrogen 100 mg/dL (7-17); Calcium 9.2 mg/dL (8.4-10.2); Chloride 84 mmol/L (98-107); Estimated Glomerular Filt Rate 25 mL/min (>60); Globulin 3.6 g/dL (1.7-4.1); Glucose 59 mg/dL (80-110); HEMOLYSIS < 15 (0-50); Sodium 136 mmol/L (137-145); Total Protein 7.4 g/dL (6.3-8.2)
[2024-04-10 06:48] LABS: Potassium 2.5 mmol/L (3.4-5.1)
[2024-04-10 06:49] LABS: Carbon Dioxide 42 mmol/L (22-32)
[2024-04-10 07:20] LABS: Magnesium 2.3 mg/dL (1.6-2.3)
--- NOTE | 2024-04-10 07:36 | PM.PN.1 ---
Subjective Subjective Interval history: Summary: 74-year-old woman under the primary care of Dr. Karin Porter with multiple medical issues including chronic bronchiectasis with Pseudomonas colonization, combined variable immunodeficiency, obstructive cardiomyopathy was recently hospitalized at [facility] from March 29 through with volume overload congestive heart failure, ESBL E coli urinary infection and Pseudomonas lung infection, treated with IV furosemide and Meropenem, and sent home off antibiotics on torsemide 40 mg twice daily and metolazone Sunday, Sunday, and Sunday. She presents progressively weak despite her stating that she drinks adequate fluids but has had little solid food intake, and has been urinating. In the emergency department her serum creatinine was 2.14 mg/dL, up from 1.27 on April 04. Her notes that she has had progressive cognitive decline in the past year, frequently forgetting that a family member has visited the day before, and asking the same questions several times daily. S: She was little confused today and really able to add much to the conversation. Her details a week long admission at [facility] where she was fairly aggressively diuresed and metolazone was added to her regimen. Since being home she was had a general decline in cognition, and been more lethargic. Here, she was noted to have KETTY, hypokalemia, and an elevated protime of 5.7 initially 6.5 today. He notes history of retroperitoneal bleed. No fevers or chills, we discuss level care and he appears to be ready for discussions and initiation of hospice. In the meantime I will give her some saline and potassium back today as well as 5 mg of vitamin K orally. Exam Vital Signs (past 8 hours): - 04/10/24 00:00 04/10/24 04:00 Temperature 97.0 F L 96.1 F L Pulse Rate 70 55 L Respiratory Rate 19 17 Blood Pressure 92/62 106/46 L Pulse Oximetry 97 98 Oxygen Flow Rate 2 2 Oxygen Delivery Method Nasal Cannula Oxygen Flow Rate 2 Narrative Exam Narrative: Awake but fairly confused. No acute distress. She speaks very little but when she speaks her speech is relatively normal. Lungs are clear, normal rate and effort. Heart is regular, no murmur gallop or rub. Abdomen is soft, non distended. Extremities are 1+ edema. Objective ECG Impression: Sinus bradycardia at 53bpm Right bundle branch block Imaging Multiple studies:: Radiologist's impression: CT abdomen-pelvis without contrast: Radiologist's impression: 1. Distended gallbladder with cholelithiasis. No gallbladder wall thickening. No biliary ductal dilatation. Gallbladder contractility disorder cannot be excluded. 2. No renal stones or hydronephrosis. Normal appearing urinary bladder. 3. No bowel obstruction or abnormal bowel wall thickening. Jmxz-bb-dldsitwu constipation. No evidence of acute appendicitis or diverticulitis. No free fluid or free air. Echocardiogram 03/15/2024:: Radiologist's impression: The LVOT velocity is 1.74 m/s. The mean pressure gradient is 8.5 mmHg. The max pressure gradient is 12.1 mmHg. The stroke volume index is 43.86 ml/m2. The ejection fraction is estimated to be 75-80%. The interventricular septum is flattened, consistent with a right ventricular pressure/volume condition but not as severe in comparison to prior echo study on 08/26/2022. The peak aortic velocity is 2.65 m/sec. Visually and based on peak velocity there appears to be milld aortic stenosis. There appears to be TMVR (transcatheter mitral valve replacment valve) that is new since prior echo study on 08/26/2022. It appears part of the TMVR apparatus is within the LVOT but based on LVOT velocity there appears to be no signifiant obstruction. Head CT 06/19/2023:: Radiologist's impression: No acute intracranial pathology within limitations related to motion artifact. Labs 04/10/24 05:30 04/10/24 05:30 Labs: Laboratory Results - last 24 hr 04/09/24 04/09/24 04/10/24 13:02 16:25 05:30 WBC 8.4 8.6 RBC 4.71 4.33 Hgb 14.4 13.2 Hct 42.7 39.3 MCV 90.8 90.7 MCH 30.6 30.4 MCHC 33.7 33.5 RDW 16.2 H 15.9 H Plt Count 409 H 402 H Neut % (Auto) 69.4 62.4 Lymph % (Auto) 17.1 L 23.1 L [place] % (Auto) 12.7 13.9 Eos % (Auto) 0.0 L 0.0 L Baso % (Auto) 0.8 0.6 Neut # (Auto) 5800 5400 Lymph # (Auto) 1400 2000 [place] # (Auto) 1100 H 1200 H Eos # (Auto) 0 0 Baso # (Auto) 100 100 PT 67.8 H 72.4 H INR 6.3 H* 6.7 H* Sodium 133 L 136 L Potassium 3.4 2.5 L* Chloride 80 L 84 L Carbon Dioxide 32 42 H* BUN 98 H 100 H Creatinine 2.14 H 2.00 H Estimated GFR 23 L 25 L BUN/Creatinine Ratio 45.8 H 50.0 H Glucose 219 H 59 L D Calcium 10.0 9.2 Magnesium 2.3 Total Bilirubin 0.5 0.4 AST 42 H 39 H ALT 37 H 31 Alkaline Phosphatase 91 97 Total Protein 7.9 7.4 Albumin 4.2 3.8 Globulin 3.7 3.6 Albumin/Globulin Ratio 1.1 1.1 Lipase 129 Urine Color Yellow Urine Appearance Clear Urine pH 7.5 Ur Specific [place] 1.010 Urine Protein Negative Urine Glucose (UA) Negative Urine Ketones Negative Urine Occult Blood Negative Urine Nitrate Negative Urine Bilirubin Negative Urine Urobilinogen 0.2 Ur Leukocyte Esterase 3+ H Urine RBC 0-1/hpf Urine WBC 5-10/hpf H Ur Squamous Epith Cells 0-1 /hpf Urine Bacteria Moderate (10-30) H Ur Culture Indicated? Specimen cultured Vol Urine Centrifuged 10ml (spun) [facility] Medical History Anticoagulated Pneumonia Wears glasses Eczema Osteoarthritis Bronchiectasis (~2006) Sleep apnea Asthma (~1959) Abnormal chest xray (~1979) Restless leg syndrome Migraines (~1964) Shoulder pain (~03/2018) Osteopenia Degenerative joint disease of spine (~2001) Foot pain Fibromyalgia Chronic back pain Cervical spine disease Ankle pain MRSA (methicillin resistant Staphylococcus aureus) (~2002) Anemia Hoarseness Recurrent sinusitis (~1970) Colon polyps (~2015) Hypothyroidism Diabetes mellitus, type II (~2009) Hypertension Hyperlipidemia Nail bed carcinoma Pneumonia Surgical History Anesthesia History of thumb surgery History of carpal tunnel release History of spinal fusion (~2012) History of laminectomy (~2002) History of section History of cataract removal with insertion of prosthetic lens (~2014) Family History Father Stroke Mother Hypertension Brother Cerebral aneurysm Prostate cancer Diabetes mellitus Hypertension Stroke Brother Arthritis Hyperlipidemia Hypertension Sister History of kidney cancer Hypertension Grandfather Cancer Grandmother Cancer Other Family history non-contributory Social History marital status: household members: spouse lives independently: Yes occupational status: previously employed Smoking Status: Never smoker alcohol intake: never substance use type: does not use Assessment & Plan Assessment & Plan narrative: 1. Hypokalemia, new and active. 2. Acute kidney injury superimposed on chronic kidney disease, stage III. Likely due to volume depletion from over-diuresis, in a patient with tenuous volume status and markedly decreased functional status with repeated hospitalizations and failure to thrive. No evidence of acute intra-abdominal process or current infection. Lengthy discussion regarding failure to thrive and progressive cognitive impairment. The patient has been considering palliative care approach. 3. Chronic diastolic congestive heart failure. 4. COPD/bronchiectasis. 5. Chronic hypoxic respiratory failure. 6. Chronic atrial fibrillation on amiodarone. 7. Chronic anticoagulation. 8. Diabetes mellitus, type 2 requiring insulin 9. Common variable immunodeficiency. 10. Probable dementia. Normal head CT noted in June. Check B12 and TSH. Further cognitive assessment. Plan: -initiation of hospice, discussed with social work. They are opening dates are out a ways at this point. This would be for hospice at home. -for today, 500 of saline and potassium was given orally. We will recheck a BMP later today. She was also going to be given 5 mg of vitamin K orally to try to reverse her protime a bit. -we will continue to monitor in the meantime. Code status: Do not resuscitate Time-Based Coding :: [TOTAL MINUTES] spent with patient and on the chart (including review of chart, obtaining history, exam, reviewing outside data, placing orders, documenting exam and treatment plan, and counseling patient) on [DATE].
[2024-04-10] MEDS: POTASSIUM CHLORIDE 20 MEQ TAB 40 MEQ PO (07:41)
[2024-04-10] MEDS: POTASSIUM CHLORIDE IN WATER 10 MEQ/100 ML PIGGYBACK 100 MEQ IV ×2 (07:42→07:50)
[2024-04-10] MEDS: POTASSIUM CHLORIDE 20 MEQ/15 ML UDC 40 MEQ PO (09:20)
[2024-04-10] MEDS: INSULIN GLARGINE 100 UNIT/ML 3ML PEN 20 UNIT SUBCUT (09:31)
[2024-04-10] MEDS: PANTOPRAZOLE DR 40 MG TABLET PO ×2 (09:32→20:37)
[2024-04-10] MEDS: predniSONE 5 MG TABLET PO (09:32)
[2024-04-10] MEDS: guaiFENesin ER 600 MG TAB 1200 MG PO ×2 (09:32→20:37)
[2024-04-10] MEDS: DULOXETINE 30 MG CAPSULE PO (09:32)
[2024-04-10] MEDS: AMIODARONE 200 MG TABLET PO (09:32)
[2024-04-10 11:33] LABS: TSH w/ Reflex to FT4 4.61 uIU/mL (0.47-4.68)
--- NOTE | 2024-04-10 11:56 | CM.DANOTE ---
Addendum entered by MACKENZIE Concepcion 04/10/24 14:37: PANELBOARD OPERATOR spoke with at [facility] to cancel referral. appreciative of updates. SL Addendum entered by MACKENZIE Concepcion 04/10/24 14:34: from provider, spoke with pt and spouse. POC now hospice/CC based. PANELBOARD OPERATOR spoke with Candida from [facility] to update on referral. Kindly agreed to review. PANELBOARD OPERATOR faxed FS, H&P, PN from today, OT eval, and current labs for review. P: transition to [facility] and CC services. CM team will continue to follow closely for coordination of [facility] in the home. ANNE Original Note: DCP Assessment Note Pt is a 74yo F here with KETTY/chronic CHF. Medically fragile. possible dementia, SLUMS likely beneficial. PCP Karin Porter Payer [facility] of [facility] and self pay PANELBOARD OPERATOR reviewed EMR. Per chart review, pt was admitted here 03/14/24-03/18/24, admitted at [facility] 03/29/24-04/04/24, and returned to after increased weakness at home. Hx of [facility] and inf leana in previous admissions. previously has been about to get out of bed and transfer indep but is needing more and more assistance. no hx of SLUMS but spouse reports pt has been more forgetful over past few weeks. pt on 3ltrs O2 currently, (which is her baseline home oxygen?) Per provider in morning rounds, will continue to have goals of care conversations with spouse and pt. pt likely hospice/palliative care appropriate. PANELBOARD OPERATOR entered room and introduced self and role. pt sleeping soundly, snoring softly. opened eyes once and then went back to sleep. pt accompanied by spouse in room. Spouse reports having all the DME needed currently at home. Has been considering JIE options/memory care. Hopeful for cog assessment while admitted. open to resuming [facility] for RN/PT/ACCOUNT RESOLUTION ANALYST. has looked into [facility] for either CGs in the home or ALFs. has set up pt with [facility] but has not used it yet. pt has been struggling to self transfer like she does at baseline over past few weeks. PANELBOARD OPERATOR provided additional resources for in home care, JIE/memory care, and [facility] contact information. spouse appreciative. At this point, preference from spouse is for pt to dc home with [facility] resumption but open to JIE placement or SNF if indicated. [facility] would need whole new referral to restart services. CC Lizett kindly agreed to send current clinicals for referral. F2f and order needed PANELBOARD OPERATOR updated provider that spouse is hopeful for cog assessment while admitted. Provider plans to place OT SLUMS orders. will order PT if needed. Per ED note, rec pt may need SNF placement. PT eval, preferences, Hernandez auth, and referral needed if SNF indicated. P: Medical POC/goals of care conversations pending, anticipate return home with [facility] for RN/PT/ACCOUNT RESOLUTION ANALYST Bath aide. SLUMS pending. CM team will continue to follow admission closely as further DCP needs likely to arise. MACKENZIE Concepcion Discharge Planning/Care Management CM Discharge Assessment Start: 04/10/24 11:50 Freq: Status: Active Protocol: Document 04/10/24 11:50 SL (Rec: 04/10/24 11:55 SL [id number]) Discharge Planning Assessment Assigned Gear Technician MACKENZIE Cornell DPOA/Assigned Designee Name Harjeet, spouse Contact Information [phone] Advance Directives? Yes: Advance Directive & POLST Advance Directives on File Yes History Provided By Patient,Family Member,Medical Record Has Patient been admitted in last 30 Yes days? Comment yes, admitted here 03/14/24- and was admitted at [facility] 03/29/24-04/04/24 Prior Living Arrangements House Household Members spouse Type of transporation used prior to Relies on Others admit Comment spouse and set up with [facility] Independent with ADL's No: has been getting more assist from spouse throughout recent months Is patient alert and oriented? Yes Needs Assistance With Bathing,Meal Prep,Home Chores / Shopping Community Services used prior to Home Health Nurse admission: Comment [facility] Already Rented / Owned Wheelchair,FWW / Walker Comment Has shower chair as well, home oxygen is through [employer]. 5 ltrs at baseline. Patient/Family Preference Home with Home Health Comment medically and physically fragile. return home w/spouse, who is a retired Orthopedic PA-C Discharge Plan Home with Home Health Transportation Arrangement Spouse Referrals Initiated Home Health,Other Additional Comment Anticipate resumption of [facility] If patient plan is home with home health not needed for Resumption : Has signed face to face form been completed? If patient plan is SNF: Has PASSR been Yes completed? Inpatient Status as of 04/10/24 SNF/HH Preference [facility] Whiteboard Updated in Patient Room with Yes name and ext. # of Gear Technician Review Status In Process Please Provide Date Initial DC 04/10/24 Assessment Was Performed Next Review Type Continued Stay Review
[2024-04-10] MEDS: INSULIN LISPRO 100 UNIT/ML 3ML VIAL SUBCUT ×3 (12:06→20:40)
[2024-04-10 12:11] LABS: Vitamin B12 401 pg/mL (239-931)
--- NOTE | 2024-04-10 13:45 | OT.IP.EVAL ---
Current Diagnoses Acute kidney failure, unspecified (04/09/24) Past Medical History (Last Reviewed 04/10/24 @ 07:38 by Jorge Cervantes MD) Abnormal chest xray (~1979) Anemia Ankle pain Anticoagulated Asthma (~1959) Bronchiectasis (~2006) Cervical spine disease Chronic back pain Colon polyps (~2015) Degenerative joint disease of spine (~2001) Diabetes mellitus, type II (~2009) Eczema Fibromyalgia Foot pain Hoarseness Hyperlipidemia Hypertension Hypothyroidism Migraines (~1964) 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 Osteopenia Pneumonia Pneumonia Recurrent sinusitis (~1970) Restless leg syndrome Shoulder pain (~03/2018) Sleep apnea Wears glasses Surgical History (Last Reviewed 04/10/24 @ 07:38 by Jorge Cervantes MD) Anesthesia History of carpal tunnel release History of cataract removal with insertion of prosthetic lens (~2014) History of section History of laminectomy (~2002) History of spinal fusion (~2012) History of thumb surgery Occupational Therapy Inpatient Evaluation/Re-Eval M1 PT/OT-IP Prior Functional Status Start: 04/10/24 13:43 Freq: NEEDED Status: Active Protocol: Document 04/10/24 13:44 CGR (Rec: 04/10/24 14:22 CGR [id number]) Medical Review Prior Functional Status Medical History Reviewed Yes Communication Pt is an effective verbal communicator at her baseline but is currently too sleepy to participate in much communication. Mobility and Gait ~3 months ago pt was MOD I with use of 4ww and electric w /c but pt has been declining and has needed more assist. Activities of Daily Living and IADL's Pt has needed more assist with all ADLs and recently has been total assist for most ADLs. 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 ramp to enter Home Environment High Toilet,Walk in Shower, Ramp Home Equipment Front Wheel Walker,Four Wheel Walker,Straight Cane,Manual Wheelchair,Power Wheelchair/ Scooter,Shower Seat with Backrest,Hand Held Shower,Grab Bars Near Toilet,Grab Bars In Shower Employment Status Retired Additional Social History Comment Pt lives with her who is a retired P.A. He is her daytime caregiver industrial hygiene technician. M2 OT-IP Current Condition Start: 04/10/24 13:43 Freq: Status: Active Protocol: Document 04/10/24 13:44 CGR (Rec: 04/10/24 14:22 CGR [id number]) Occupational Therapy Current Condition Current Condition Evaluation Date 04/10/24 Treatment Diagnosis CHF, KETTY, Dementia, multiple recent admits to hospital Diagnosis Onset Date 04/09/24 M3 OT- IP Subjective and Pain Start: 04/10/24 13:43 Freq: Status: Active Protocol: Document 04/10/24 13:44 CGR (Rec: 04/10/24 14:22 CGR [id number]) OT- Subjective Occupational Therapy Visit Type Type Initial Evaluation Visit Start Time 13:12 Visit Stop Time 13:45 Notes Pt's present throughout OT Pain Assessment Pain When Pain Assessed At Rest Pain Present Pain Present Denied Pain M4 OT- IP ADL's Start: 04/10/24 13:43 Freq: Status: Active Protocol: Document 04/10/24 13:44 CGR (Rec: 04/10/24 14:22 CGR [id number]) OT [id number]-[id number] Comments OT Self-Feeding Comments not meal time OT ADL-Grooming Comments OT Grooming Comments not performed OT ADL-Oral Care Comments Oral Care Comments not performed OT ADL-Dressing General Eval Lower Body Dressing Ability Total Assistance Areas Needing Assistance Socks OT ADL-Toileting Comments OT Toileting Comments not performed OT ADL-Bathing Comments OT Bathing Comments not performed M5 OT- IP IADL's Start: 04/10/24 13:43 Freq: Status: Active Protocol: Document 04/10/24 13:44 CGR (Rec: 04/10/24 14:22 CGR [id number]) OT-Instrumental Activities of Daily Living Deficits IADL Deficits Identified Deficits Home Safety Awareness Awareness of Need for Assistance at Home Decreased Awareness Ability to Problem Solve Emergency Unable to Problem Solve Situations Medication Management Medication Management Caregiver Administers Money Management Money Management Caregiver Provides Assistance Meal Preparation Meal Preparation Caregiver Provides Assist Custom Shop Worker Custom Shop Worker Caregiver Provides Assist Driving Driving Comments Pt does not drive M6 OT- IP Functional Cognition Start: 04/10/24 13:43 Freq: Status: Active Protocol: Document 04/10/24 13:44 CGR (Rec: 04/10/24 14:22 CGR [id number]) Cognitive Factors Limiting Selfcare Function Cognitive Ability Level of Alertness Confusional State,Drowsy, Lethargic Patient Orientation Name Attention Span Ability Unable to Focus,Unable to Sustain Attention Cognitive Comments Cognitive Assessment Comments Attempted SLUMS but pt is too lethargic even sitting in chair to participate. OT- Vision and Hearing OT- Hearing Assessment OT- Hearing Assessment WFL M7 OT- IP Mobility and Balance Start: 04/10/24 13:43 Freq: Status: Active Protocol: Document 04/10/24 13:44 CGR (Rec: 04/10/24 14:22 CGR [id number]) OT- Bed Mobility Assessment Supine to Sit Supine to Sit Assist Maximum Assistance,1 Person Assistance,Head of Bed Elevated,Bedrails Scooting Scooting to Edge of Bed Maximum Assistance,1 Person Assistance,Head of Bed Elevated,Bedrails OT-Transfer Assessment Sit to and From Stand Sit to and from Stand Maximum Assistance,1 Person Assistance Transfers Transfer Ability Maximum Assistance,1 Person Assistance Technique Transfer Destination Bed,Chair Transfer Technique Stand Step Pivot Devices Transfer Assistive Devices Gait Belt,Front Wheeled Walker Comments Mobility Comments Pt transfered to chair with max a for a combination of verbal cues and physical assist. Pt is inconsistent with following commands and would be most appropriate for a lift back to bed when time. Notified nursing. OT- Gait Assessment Comments Gait Ability Comments not performed OT- Balance Assessment Sitting Balance and Reactions Static Sitting Balance Ability Fair Dynamic Sitting Balance Ability Fair M8 OT- IP Objective Assessments Start: 04/10/24 13:43 Freq: Status: Active Protocol: Document 04/10/24 13:44 CGR (Rec: 04/10/24 14:22 CGR [id number]) OT Gross Range of Motion Upper Extremity Range of Motion ROM Impairments pt unable to follow commands to perform OT Strength Comments Strength Comments pt unable to follow commands to perform OT- Coordination Assessment Comments Coordination Comments pt unable to follow commands to perform OT-Muscle Tone Assessment Muscle Tone WNL Yes OT Sensation Assessment Edema Edema Absent M9 OT- IP Assessment and Plan Start: 04/10/24 13:43 Freq: Status: Active Protocol: Document 04/10/24 13:44 CGR (Rec: 04/10/24 14:22 CGR [id number]) OT Summary Assessment and Plan Potential Rehabilitation Potential Fair Analytic Complexity at Evaluation Moderate Summary OT Impairments Balance,Functional Cognition, Functional Mobility,Grooming, Dressing,Toileting,Bathing, Toilet Transfers,Shower Transfers,Activity Tolerance Progress Towards Goals Slow Progress due to Medical Issues Assessment Summary Pt presents as a moderate complexity evaluation s/p admit for declining physical and mental state. Pt is unable to participate in SLUMS today and is having difficulty following commands. Pt is sleepy in bed and transferred to chair with max a and poor following of commands in hopes that she would be more awake but she was still unable to participate effectively in SLUMS. Pt dropped with o2 to 88% and took 5+ minutes to return to 90 after transfer to chair. Goals OT-Other Goals Cog assessment to be completed Other goals to be assessed as paitient progresses. Days to Meet Goals 2 Frequency of Treatment Other frequency 5x per week Treatment Plan OT Treatment Plan ADL Training,Functional Cognition Training,Functional Mobility,Patient/Family Education,Discharge Planning Other Treatment Recommendations and Next cog assessment if appropriate. Treatment Focus Discharge Recommendations OT Discharge Recommendations Home with 24/7 Assist Available Other Discharge Recommendations Pt may be most appropriate for home with hospice. Transportation Needs at Discharge Wheelchair/Cabulance
[2024-04-10] MEDS: SODIUM CHLORIDE 0.9% 1,000 ML 500 ML IV (14:41)
[2024-04-10] MEDS: PHYTONADIONE (VIT K1) 5 MG TABLET PO (14:41)
[2024-04-10] MEDS: ATORVASTATIN 20 MG TABLET 40 MG PO (17:06)
[2024-04-10] MEDS: ALBUTEROL 2.5 MG/3 ML NEB (ADULT) INH (18:16)
[2024-04-10 18:33] LABS: BUN Creatinine Ratio 51.6 (6-22); Blood Urea Nitrogen 97 mg/dL (7-17); Calcium 8.5 mg/dL (8.4-10.2); Chloride 85 mmol/L (98-107); Estimated Glomerular Filt Rate 27 mL/min (>60); Glucose 357 mg/dL (80-110); HEMOLYSIS < 15 (0-50); Potassium 3.3 mmol/L (3.4-5.1); Sodium 129 mmol/L (137-145)
[2024-04-10 18:39] LABS: Carbon Dioxide 37 mmol/L (22-32)
[2024-04-10] MEDS: POTASSIUM CHLORIDE 20 MEQ/15 ML UDC PO (20:00)
[2024-04-10] MEDS: TRAZODONE 50 MG TABLET PO (20:37)
[2024-04-11] VITALS (7 sets, daily range): BP systolic 117–146; BP diastolic 53–91; PULSE 62–79; RESP 14–22; TEMP 36.1–37; O2SAT 93–97
[2024-04-11] MEDS: LEVOTHYROXINE 75 MCG TABLET PO (06:12)
[2024-04-11] MEDS: PANTOPRAZOLE DR 40 MG TABLET PO ×2 (09:09→20:39)
[2024-04-11] MEDS: guaiFENesin ER 600 MG TAB 1200 MG PO ×2 (09:09→20:39)
[2024-04-11] MEDS: AMIODARONE 200 MG TABLET PO (09:09)
[2024-04-11] MEDS: polyethylene glycoL 3350 17 GM POWD.PACK PO (09:09)
[2024-04-11] MEDS: predniSONE 5 MG TABLET PO (09:09)
[2024-04-11] MEDS: SENNOSIDES 8.6 MG TABLET PO (09:09)
[2024-04-11] MEDS: DULOXETINE 30 MG CAPSULE PO (09:10)
[2024-04-11] MEDS: INSULIN GLARGINE 100 UNIT/ML 3ML PEN 20 UNIT SUBCUT (09:10)
[2024-04-11] MEDS: INSULIN LISPRO 100 UNIT/ML 3ML VIAL SUBCUT ×4 (09:11→20:40)
--- NOTE | 2024-04-11 11:10 | OT.IPNOTE ---
Discussed case with CM. Pt is going hospice. No further OT needs. Will discharge order.
--- NOTE | 2024-04-11 12:35 | PM.PN.1 ---
Subjective Subjective Date Patient Seen: 04/11/24 Time Patient Seen: 09:35 Interval history: Summary: 74-year-old woman under the primary care of Dr. Karin Porter with multiple medical issues including chronic bronchiectasis with Pseudomonas colonization, combined variable immunodeficiency, obstructive cardiomyopathy was recently hospitalized at [facility] from March 29 through with volume overload congestive heart failure, ESBL E coli urinary infection and Pseudomonas lung infection, treated with IV furosemide and Meropenem, and sent home off antibiotics on torsemide 40 mg twice daily and metolazone Sunday, Sunday, and Sunday. She presents progressively weak despite her stating that she drinks adequate fluids but has had little solid food intake, and has been urinating. In the emergency department her serum creatinine was 2.14 mg/dL, up from 1.27 on April 04. Her notes that she has had progressive cognitive decline in the past year, frequently forgetting that a family member has visited the day before, and asking the same questions several times daily. S: She is alert today, remains confused, though a family conference is held with her , daughters and social work at bedside with the patient. She clearly states that she wishes to return home with hospice after lengthy discussion and consensus building with all family members. They expressed that there is a need for caregivers and her will be working towards coordinating this care with hospice. She has a hospital-type bed at home and adequate pain medication as well as oxygen. They will feel comfortable with this approach and hospice consultation has been arranged for tomorrow afternoon at their home. Exam Vital Signs (past 8 hours): - 04/11/24 08:00 04/11/24 08:58 04/11/24 10:00 Temperature 96.9 F L Pulse Rate 63 Respiratory Rate 16 Blood Pressure 126/56 L Pulse Oximetry 97 95 Oxygen Delivery Method Nasal Cannula Nasal Cannula Oxygen Flow Rate 3 3.5 04/11/24 12:00 Temperature 98.1 F Pulse Rate 67 Respiratory Rate 14 Blood Pressure 117/68 Pulse Oximetry 93 Oxygen Delivery Method Oxygen Flow Rate 3 Oxygen Delivery Method Nasal Cannula Oxygen Flow Rate 3 Narrative Exam Narrative: Awake but fairly confused. No acute distress. She speaks very little but when she speaks her speech is relatively normal. Lungs are clear, normal rate and effort. Heart is regular, no murmur gallop or rub. Abdomen is soft, non distended. Extremities are 1+ edema. Objective Labs 04/10/24 05:30 04/10/24 18:10 Labs: Laboratory Results - last 24 hr 04/10/24 18:10 Sodium 129 L Potassium 3.3 L Chloride 85 L Carbon Dioxide 37 H BUN 97 H Creatinine 1.88 H Estimated GFR 27 L BUN/Creatinine Ratio 51.6 H Glucose 357 H D Calcium 8.5 PFSH Medical History Anticoagulated Pneumonia Wears glasses Eczema Osteoarthritis Bronchiectasis (~2006) Sleep apnea Asthma (~1959) Abnormal chest xray (~1979) Restless leg syndrome Migraines (~1964) Shoulder pain (~03/2018) Osteopenia Degenerative joint disease of spine (~2001) Foot pain Fibromyalgia Chronic back pain Cervical spine disease Ankle pain MRSA (methicillin resistant Staphylococcus aureus) (~2002) Anemia Hoarseness Recurrent sinusitis (~1970) Colon polyps (~2015) Hypothyroidism Diabetes mellitus, type II (~2009) Hypertension Hyperlipidemia Nail bed carcinoma Pneumonia Surgical History Anesthesia History of thumb surgery History of carpal tunnel release History of spinal fusion (~2012) History of laminectomy (~2002) History of section History of cataract removal with insertion of prosthetic lens (~2014) Family History Father Stroke Mother Hypertension Brother Cerebral aneurysm Prostate cancer Diabetes mellitus Hypertension Stroke Brother Arthritis Hyperlipidemia Hypertension Sister History of kidney cancer Hypertension Grandfather Cancer Grandmother Cancer Other Family history non-contributory Social History marital status: household members: spouse lives independently: Yes occupational status: previously employed Smoking Status: Never smoker alcohol intake: never substance use type: does not use Assessment & Plan Assessment & Plan narrative: 1. Acute kidney injury superimposed on chronic kidney disease, stage III. Likely due to volume depletion from over-diuresis, in a patient with tenuous volume status and markedly decreased functional status with repeated hospitalizations and failure to thrive. No evidence of acute intra-abdominal process or current infection. Lengthy discussion regarding failure to thrive and progressive cognitive impairment, with preference for hospice and palliative care approach at this point with discharge home tomorrow. 2. Hypokalemia, new and active. 3. Chronic diastolic congestive heart failure. 4. COPD/bronchiectasis. 5. Chronic hypoxic respiratory failure. 6. Chronic atrial fibrillation on amiodarone. 7. Chronic anticoagulation. 8. Diabetes mellitus, type 2 requiring insulin 9. Common variable immunodeficiency. 10. New diagnosis dementia. Onset in the past year. Normal head CT noted in June, normal B12 and TSH. Unable to complete cognitive assessment. Plan: -discharge home tomorrow morning with hospice, discussed with social work. -we will continue to monitor in the meantime. Code status: Do not resuscitate PROFEE Charge codes Subsequent inpatient/observation care: [id number]
--- NOTE | 2024-04-11 12:52 | CM.DPNOTE ---
Called [facility] per Isabela for BLS transport for 04/12/24 to their [address]. Spoke to Joy and she confirmed they could transport pt. at 1000 on 04/12. Let them know pt. is on 3-3.5 of O2. Lizett Muller CM Fresh Food Manager.
[2024-04-11] MEDS: OXYMETAZOLINE NASAL SPRAY 30 ML 2 SPRAYS NASAL (13:51)
--- NOTE | 2024-04-11 14:05 | CM.DPNOTE ---
DCP Note BREWERY TECHNICIAN confirmed with Pat from [facility]. DME to be delivered today, SOC for Sunday between [id number] in the home. BREWERY TECHNICIAN met with pt, spouse, two dtrs, and provider in room. lengthy discussion. conclusion is pt/family preference home with [facility] support and PP CGs, spouse and dtrs looking into hiring CGs from [facility]. Preference is BLS transport. Report verbal understanding they may receive a BLS transport bill. BREWERY TECHNICIAN/provider/spouse completed new POLST form. CC Lizett arranged [facility] for 1000 tomorrow to the home. see her note for more. BREWERY TECHNICIAN placed FS, POLST copy, and transport form in pt's red folder. Original copy returned to spouse. P: dc tomorrow w/ [facility] to transport 1000. [facility] to Start in home 1400 tomorrow. CM team will continue to follow closely MACKENZIE Concepcion
[2024-04-11] MEDS: ATORVASTATIN 20 MG TABLET 40 MG PO (16:53)
[2024-04-11] MEDS: TRAZODONE 50 MG TABLET PO (20:39)
[2024-04-11] MEDS: PRAMIPEXOLE 0.25 MG TABLET 0.5 MG PO (20:39)
[2024-04-12] VITALS: BP 143/96; PULSE 93; RESP 18; TEMP 36.6; O2SAT 96
[2024-04-12 04:00] VITALS: BP 136/84; PULSE 86; RESP 19; TEMP 37.2; O2SAT 93
[2024-04-12] MEDS: LEVOTHYROXINE 75 MCG TABLET PO (05:37)
[2024-04-12 08:00] VITALS: BP 140/79; PULSE 73; RESP 21; TEMP 36.8; O2SAT 95
[2024-04-12] MEDS: INSULIN LISPRO 100 UNIT/ML 3ML VIAL SUBCUT (08:06)
[2024-04-12] MEDS: guaiFENesin ER 600 MG TAB 1200 MG PO (08:13)
[2024-04-12] MEDS: SENNOSIDES 8.6 MG TABLET PO (08:13)
[2024-04-12] MEDS: OXYCODONE IR 5 MG TABLET 15 MG PO (08:14)
[2024-04-12] MEDS: DULOXETINE 30 MG CAPSULE PO (08:14)
[2024-04-12] MEDS: PANTOPRAZOLE DR 40 MG TABLET PO (08:14)
[2024-04-12] MEDS: polyethylene glycoL 3350 17 GM POWD.PACK PO (08:15)
[2024-04-12] MEDS: predniSONE 5 MG TABLET PO (08:15)
[2024-04-12] MEDS: AMIODARONE 200 MG TABLET PO (08:15)
[2024-04-12] MEDS: INSULIN GLARGINE 100 UNIT/ML 3ML PEN 20 UNIT SUBCUT (08:16)
[2024-04-12 09:35] VITALS: PULSE 67; RESP 20; O2SAT 90
[2024-04-12] MEDS: ALBUTEROL/IPRATROPIUM 3 ML AMPUL INH (09:35)
--- NOTE | 2024-04-12 10:14 | P.DS_ITS ---
History of Present Illness History of Present Illness Date Patient Seen: 04/12/24 Time Patient Seen: 08:40 Date of Onset of Symptoms: 04/09/24 Chief complaint: Weakness,lethargic Narrative: 74-year-old woman under the primary care of Dr. Karin Porter with multiple medical issues including chronic bronchiectasis with Pseudomonas colonization, combined variable immunodeficiency, obstructive cardiomyopathy was recently hospitalized at [facility] from March 29 through with volume overload congestive heart failure, ESBL E coli urinary infection and Pseudomonas lung infection, treated with IV furosemide and Mirapex item, and sent home off antibiotics on torsemide 40 mg twice daily and metolazone Sunday and Sunday. She presents progressively weak despite her stating that she drinks adequate fluids but has had little solid food intake, and has been urinating. In the emergency department her serum creatinine was 2.14 mg/dL, up from 1.27 on April 04. Her notes that she has had progressive cognitive decline in the past year, frequently forgetting that a family member has visited the day before, and asking the same questions several times daily. Discharge Providers Provider Date of admission: 04/09/24 16:35 Discharge Date: 04/12/24 Primary care physician: Karin Porter MD Consults: 04/10/24 12:10 Consult to Occupational Therapy Evaluate & Treat Comment: [facility] Physician Instructions: Evaluate and treat Discharge provider: Scott Jeter MD Summary Hospital Course Discharge Diagnosis: 1. Acute kidney injury superimposed on chronic kidney disease, stage III. 2. Hypokalemia. 3. Chronic diastolic congestive heart failure. 4. COPD/bronchiectasis. 5. Chronic hypoxic respiratory failure. 6. Chronic atrial fibrillation on amiodarone. 7. Chronic anticoagulation. 8. Diabetes mellitus, type 2 requiring insulin 9. Common variable immunodeficiency. 10. Dementia. Hospital Course: Patient was admitted for treatment of acute kidney injury with IV hydration and repletion of hypokalemia. She improved overnight after treatment IV fluids and potassium. Further discussion was carried out in family conference with the patient, and 2 daughters regarding goals of care. The patient had recently expressed an interest in a palliative care approach and hospice. It was also clear that in the past year she had progressive cognitive impairment consistent with dementia. Evaluation showed no reversible cause, with an unremarkable head CT recently, as well as normal B12 and TSH, and all, including the patient, expressed interest in proceeding with hospice consultation and returning home for end of life care. Arrangements were made through outreach and education social worker for home consultation on the day of discharge. No other issues arose. Status at Discharge Cognitive/behavioral status at discharge: at baseline, confused Functional status at discharge: bed bound Overall status at discharge: patient is not back to baseline Time Spent with Patient Time spent: Greater than 30 minutes Exam Vital Signs (past 8 hours): - 04/12/24 04:00 04/12/24 08:00 04/12/24 09:35 Temperature 98.9 F 98.2 F Pulse Rate 86 73 67 Respiratory Rate 19 21 20 Blood Pressure 136/84 140/79 Pulse Oximetry 93 95 90 L Oxygen Delivery Method Nasal Cannula Oxygen Flow Rate 2 3 3 Oxygen Delivery Method Nasal Cannula Oxygen Flow Rate 3 Narrative Exam Narrative: Awake but confused. No acute distress. She expresses interest in returning home to start hospice care this morning. Abdomen is soft, non distended. Extremities are 1+ edema. Objective Labs 04/10/24 05:30 04/10/24 18:10 [facility] Medical History Anticoagulated Pneumonia Wears glasses Eczema Osteoarthritis Bronchiectasis (~2006) Sleep apnea Asthma (~1959) Abnormal chest xray (~1979) Restless leg syndrome Migraines (~1965) Shoulder pain (~03/2018) Osteopenia Degenerative joint disease of spine (~2001) Foot pain Fibromyalgia Chronic back pain Cervical spine disease Ankle pain MRSA (methicillin resistant Staphylococcus aureus) (~2002) Anemia Hoarseness Recurrent sinusitis (~1970) Colon polyps (~2015) Hypothyroidism Diabetes mellitus, type II (~2009) Hypertension Hyperlipidemia Nail bed carcinoma Pneumonia Surgical History Anesthesia History of thumb surgery History of carpal tunnel release History of spinal fusion (~2012) History of laminectomy (~2002) History of section History of cataract removal with insertion of prosthetic lens (~2014) Family History Father Stroke Mother Hypertension Brother Cerebral aneurysm Prostate cancer Diabetes mellitus Hypertension Stroke Brother Arthritis Hyperlipidemia Hypertension Sister History of kidney cancer Hypertension Grandfather Cancer Grandmother Cancer Other Family history non-contributory Social History marital status: household members: spouse lives independently: Yes occupational status: previously employed Smoking Status: Never smoker alcohol intake: never substance use type: does not use Discharge Plan Discharge Plan Patient Disposition: Hospice - Home Discharge orders & Medications Prescriptions: Continued (DME) insulin syringe-needle U-100 [BD Insulin Syringe Ultra-Fine] 0.5 mL 31 gauge x 5/16 syringe See Rx Instructions .ROUTE .MEDSUPPLY Qty: 100 1RF Rx Instructions: Use once a day as directed metformin 1,000 mg tablet 1,000 mg PO BID Qty: 180 0RF (DME) verio reflect glucometer Qty: 1 0RF Rx Instructions: As directed ferrous sulfate 325 mg (65 mg iron) tablet 325 mg PO QPM tizanidine 4 mg capsule 4 mg PO Q6H PRN (Reason: Muscle Spasm) cholecalciferol (vitamin D3) 2,000 unit tablet 2,000 unit PO DAILY albuterol sulfate 90 mcg/actuation HFA aerosol inhaler 2 puff INHALATION Q4-6H PRN (Reason: Shortness Of Breath) fentanyl 25 mcg/hr patch 72 hour 1 patch transdermal Q72H PRN (Reason: pain (scale score 1-3)) Qty: 5 0RF omega-3 fatty acids Capsule 1,000 mg PO DAILY fluticasone propion-salmeterol [Advair Diskus] 500-50 mcg/dose Blister With Device 1 inh INHALATION Q12H Hizintra 15 g auto-injector 15 g SUBCUT QWEEK Rx Instructions: pt takes on Sundays. metoprolol succinate 25 mg tablet extended release 24 hr 12.5 mg PO BID torsemide 20 mg tablet 40 mg PO BID magnesium oxide 400 mg magnesium Tablet 400 mg PO DAILY sodium chloride 3 % Solution For Nebulization 5 ml INHALATION BID Rx Instructions: use w/ nebulizer 2 x daily montelukast [Singulair] 10 mg Tablet 10 mg PO BEDTIME Zyrtec 10 mg Capsule 10 mg PO DAILY atorvastatin 40 mg Tablet 40 mg PO QPM levothyroxine 75 mcg Tablet 75 mcg PO QAM epinephrine [EpiPen] 0.3 mg/0.3 mL Auto-Injector 0.3 mg IM Q5-15M PRN (Reason: Allergic Reaction) Rx Instructions: do not exceed 3 doses per episode tiotropium bromide [Spiriva with HandiHaler] 18 mcg Capsule, W/Inhalation Device 1 cap INHALATION DAILY Rx Instructions: puncture 1 cap using device; one dose = 2 inhalations insulin glargine 100 unit/mL solution 20 unit SUBCUT QAM insulin lispro [Humalog KwikPen Insulin] 100 unit/mL insulin pen 4 - 8 unit SUBCUT TID Rx Instructions: SLIDING SCALE USED AT HOME. pramipexole 0.5 mg tablet 0.5 mg PO BEDTIME duloxetine 30 mg Capsule,Delayed Release(Dr/Ec) 30 mg PO DAILY prednisone 5 mg tablet 5 mg PO DAILY slshevcoje-lxawcynqwuypw-uprn 50-325-40 mg Tablet 1 tab PO Q6H PRN (Reason: Migraine Headache) oxycodone 5 mg Capsule 15 mg PO Q6H PRN (Reason: Pain (Scale Score 7-10)) Fasenra 30 mg/mL Syringe 30 mg SUBCUT Q8W fentanyl 12 mcg/hr patch 72 hour 12 mcg transdermal SEEINSTR Patient Comments: apply 1 patch to CLEAN, DRY, AND INTACT SKIN every 72 hours Rx Instructions: Q72HR in addition to 25mcg patch warfarin 1 mg tablet 1 mg PO DAILY Patient Comments: Patient's states dose has been around 0.5mg two days a week and 1mg all other days Rx Instructions: Dose to maintain INR 2-3 amiodarone 200 mg tablet 200 mg PO DAILY clotrimazole 10 mg aneesh 10 mg PO 5XD PRN (Reason: thrush) acetaminophen 325 mg Tablet 650 mg PO Q8HR PRN (Reason: Pain, Mild) miconazole nitrate 2 % Powder 1 applic TOPICAL QID PRN (Reason: Rash) diclofenac sodium 1 % Gel 4 g TOPICAL QID PRN (Reason: JOINT PAIN) ipratropium-albuterol 0.5 mg-3 mg(2.5 mg base)/3 mL Solution For Nebulization 3 ml INHALATION BID oxymetazoline 0.05 % Drops 2 drp INTRANASAL BID naloxone 4 mg/actuation spray,non-aerosol 1 spray intranasal NOW PRN (Reason: OVERDOSE) metolazone 5 mg tablet 5 mg PO 3XW Rx Instructions: Take on M, W, F ascorbic acid (vitamin C) 1,000 mg Tablet 1,000 mg PO QPM potassium chloride 10 mEq tablet extended release 10 meq PO BID lansoprazole 30 mg Capsule,Delayed Release(Dr/Ec) 30 mg PO BID fsnbttdltoay-qerkpuan-oflrxc Tablet 1 tab PO QPM guaifenesin [Mucinex] 1,200 mg Tablet Extended Release 12hr 1,200 mg PO BID acidophilus-pectin, citrus 100 million cell-10 mg Capsule 1 cap PO QPM trazodone 50 mg tablet 50 mg PO BEDTIME ondansetron HCl 4 mg tablet 4 mg PO Q8H PRN (Reason: Nausea) oxycodone 15 mg tablet 15 mg PO Q4-6H PRN (Reason: Pain, Moderate) fluticasone propionate 50 mcg/actuation [place],Suspension 1 spray INTRANASAL Q12H Rx Instructions: administer into each nostril Follow up/Referrals: Karin Porter MD [Primary Care Provider] - Visit Report/Discharge Packet Stand Alone Forms: Congestive Heart Failure, Patient Portal/API, Stroke Signs & Symptoms Discharge Data Primary Care Provider: Karin Porter Quality MIPS - Admit I confirm the patient?s Advance Care Plan is present, Code status is documented, Surrogate decision maker is in patient?s record [If Yes, STOP here]: Yes MIPS - Meds 'Current medications' to include all prescriptions, bbcl-isp-rtektak products, herbals, cannabis/cannabidiol products, and vitamin/mineral/dietary (nutritional) supplements. I have utilized all available resources to obtain, update, or review the patient?s current medications. [If Yes, STOP here]: Yes MIPS - DC The patient has a history of heart transplant or Left Ventricular Assist Device (LVAD). If yes, STOP here.: No The patient has current or prior documentation of left ventricular ejection fraction (LVEF) less than or equal to 40%, or moderate or severely depressed left ventricular systolic function.: No A. The patient was prescribed or already taking an Angiotensin-Converting Enzyme (ELISHA) Inhibitor, or Angiotensin Receptor Delfino (ARB).: No B. The patient was prescribed or already taking a beta-delfino. [If Yes to Both A & B, STOP here]: No Patient not prescribed/taking ELISHA or ARB, no reason given.: No Patient not prescribed/taking beta-delfino, no reason given.: No PROFEE Charge Codes Discharge inpatient/observation: 36843
--- NOTE | 2024-04-12 10:18 | CM.DPNOTE ---
Addendum entered by MACKENZIE Concepcion 04/12/24 10:23: OPHTHALMOLOGY TECHNICIAN efaxed dc sum to [facility]. SL Original Note: DCP Note OPHTHALMOLOGY TECHNICIAN reviewed EMR Per provider, pt cleared to dc today with [facility] to start at 1400. OPHTHALMOLOGY TECHNICIAN met with pt and spouse in room. Pt and spouse remain in agreement with plan. Deny questions at this time. OPHTHALMOLOGY TECHNICIAN updated IMPREGNATOR/charge manager/RN on p/u from [facility] at 1000. OPHTHALMOLOGY TECHNICIAN spoke with Pat from [facility], confirmed all set to open at 1400 in home. Need dc sum when available. P: dc today home with [facility], [facility] to open at 1400. CM team will send dc sum to [facility] when available. no further CM needs identified at this time. MACKENZIE Concepcion
== END 2024-04-12 10:20 | disposition hospice, home (50) | DRG 683 ==
LOC: ED 16:32 → AC 16:52
PROVIDERS: Hospitalist; Internal Medicine; Admitting Provider Internal Medicine; Emergency Provider Emergency Medicine; Family Provider Internal Medicine Infectious Disease; PCP Internal Medicine; Referring Provider Emergency Medicine; Visit Provider Internal Medicine
DX: N17.9 Acute kidney failure, unspecified (principal); D84.89 Other immunodeficiencies; I48.20 Chronic atrial fibrillation, unspecified; I50.32 Chronic diastolic (congestive) heart failure; J96.11 Chronic respiratory failure with hypoxia; I13.0 Hypertensive heart and chronic kidney disease with heart failure and stage 1 through stage 4 chronic kidney disease, or unspecified chronic kidney disease; N18.30 Chronic kidney disease, stage 3 unspecified; J44.9 Chronic obstructive pulmonary disease, unspecified; E11.22 Type 2 diabetes mellitus with diabetic chronic kidney disease; F03.90 Unspecified dementia, unspecified severity, without behavioral disturbance, psychotic disturbance, mood disturbance, and anxiety; E87.6 Hypokalemia; R62.7 Adult failure to thrive; D63.1 Anemia in chronic kidney disease; E78.5 Hyperlipidemia, unspecified; E03.9 Hypothyroidism, unspecified; G25.81 Restless legs syndrome; Z68.30 Body mass index [BMI] 30.0-30.9, adult; Z66 Do not resuscitate; Z79.4 Long term (current) use of insulin; Z79.01 Long term (current) use of anticoagulants; Z79.84 Long term (current) use of oral hypoglycemic drugs; Z79.52 Long term (current) use of systemic steroids
CPT/HCPCS: 36415; 74176; 80048; 80053; 81001; 82607; 82962; 83690; 83735; 84443; 85025; 85610; 87077; 87086; 87186; 93005; 94640; 94760; 97166; 97535; 99285; A9270; J1815; J7613

== ENCOUNTER → 2024-05-12 15:08 | Outpatient (ROUT) | payer OTHER, SELFPAY ==
[2023-05-06 18:45] VITALS: PULSE 72; RESP 20; O2SAT 95
[2024-04-09 18:19] VITALS: BMI 29.9
[2024-05-12 15:26] LABS: Alanine Aminotransferase 19 IU/L (<35); Albumin 3.5 g/dL (3.5-5.0); Albumin Globulin Ratio 1.2 (1.0-2.8); Alkaline Phosphatase 76 U/L (38-126); Aspartate Aminotransferase 28 IU/L (14-36); BUN Creatinine Ratio 23.2 (6-22); Bilirubin Total 0.5 mg/dL (0.2-1.3); Blood Urea Nitrogen 36 mg/dL (7-17); Calcium 8.9 mg/dL (8.4-10.2); Chloride 87 mmol/L (98-107); Estimated Glomerular Filt Rate 35 mL/min (>60); Glucose 101 mg/dL (80-110); HEMOLYSIS 17 (0-50); Potassium 3.1 mmol/L (3.4-5.1); Sodium 138 mmol/L (137-145); Total Protein 6.5 g/dL (6.3-8.2)
[2024-05-12 15:36] LABS: Carbon Dioxide 39 mmol/L (22-32)
== END ==
PROVIDERS: Family Provider Internal Medicine Infectious Disease; PCP Internal Medicine; Visit Provider Family Medicine
DX: E27.1 Primary adrenocortical insufficiency (principal); N18.4 Chronic kidney disease, stage 4 (severe); J43.9 Emphysema, unspecified
CPT/HCPCS: 80053